=== PATIENT | female | born 1965 | race Caucasian/White ===

== ENCOUNTER 2017-10-19 21:38 | Emergency (ER) | payer MEDICAID, SELFPAY ==
[2017-10-19 21:39] VITALS: BP 122/74; PULSE 71; RESP 17; TEMP 36.1; O2SAT 98; BMI 45.3
--- NOTE | 2017-10-19 22:15 | RAD_ITS ---
STUDY: X-RAY - LEFT KNEE REASON FOR EXAM: Female, 52 years old. Pain for several months. No known injury. TECHNIQUE: 4 view(s) of the knee. COMPARISON: None. FINDINGS: Normal visualized distal femur. Normal visualized proximal tibia and fibula. Normal proximal tibiofibular articulation. There is no acute fracture, dislocation or destructive osseous pathology. Normal medial femorotibial compartment. Normal lateral femorotibial compartment. Normal patellofemoral articulation. There is no demonstrated joint effusion. The soft tissue structures are unremarkable. RAD/Knee 4 or More Views IMPRESSION: Normal x-ray examination of the knee. Electronically Signed: Jayden Jarvis DO at 22:26 EDT Tel [phone], Service support ,
--- NOTE | 2017-10-19 23:05 | ED.VISSUMM ---
- ER Visit Summary Date of Service: 10/19/17 Chief Complaint: Left knee pain History of Present Illness: The patient is a 52 F presenting with left knee pain for the past several months, worse for the past few days. No direct trauma but she does hear a lot of clicking and popping in her knee with prolonged walking. No swelling, erythema, or warmth. No other complaints. Physical Examination: Minimal tenderness left knee anteriorly. Skin intact. No erythema or warmth. She still has full range of motion. No instability Test Results: Left knee x-ray negative for acute process Emergency Department Course and Treatment: I will treat her with naproxen and she will follow-up Treatment Plan: Disposition: Home stable Impression: Chronic left knee pain This note was generated with [employer] dictation software. It may contain incorrect words, spelling, and punctuation that were not noted in review of the chart prior to signing ED Disposition - Plan for ED Patient: Chief Complaint: Other, Pain/Inj Instructions: ED Knee Pain [facility] Prescriptions: Naproxen 500 mg PO BID #20 tablet. Referrals: Sam Null MD [Primary Care Provider] -
--- NOTE | 2017-10-19 23:09 | ED.DCSUM_ITS ---
- ER Visit Summary Date of Service: 10/19/17 Chief Complaint: Left knee pain History of Present Illness: The patient is a 52 F presenting with left knee pain for the past several months, worse for the past few days. No direct trauma but she does hear a lot of clicking and popping in her knee with prolonged walking. No swelling, erythema, or warmth. No other complaints. Physical Examination: Minimal tenderness left knee anteriorly. Skin intact. No erythema or warmth. She still has full range of motion. No instability Test Results: Left knee x-ray negative for acute process Emergency Department Course and Treatment: I will treat her with naproxen and she will follow-up Treatment Plan: Disposition: Home stable Impression: Chronic left knee pain This note was generated with [employer] dictation software. It may contain incorrect words, spelling, and punctuation that were not noted in review of the chart prior to signing ED Disposition - Plan for ED Patient: Chief Complaint: Other, Pain/Inj Instructions: ED Knee Pain [facility] Prescriptions: Naproxen 500 mg PO BID #20 tablet. Referrals: Sam Null MD [Primary Care Provider] -
== END 2017-10-19 23:41 | disposition home or self-care (01) ==
PROVIDERS: Emergency Provider Emergency Medicine; Family Provider Internal Medicine; PCP Internal Medicine
DX: M25.562 Pain in left knee (principal); Z79.899 Other long term (current) drug therapy
CPT/HCPCS: 73564; 99282

== ENCOUNTER 2018-04-19 00:08 | Emergency (ER) | payer SELFPAY ==
[2018-04-19 00:09] VITALS: BP 130/81; PULSE 69; RESP 16; TEMP 36.4; O2SAT 100; BMI 46.7
[2018-04-19] MEDS: 0.9% Normal Saline 1,000 ML 1000 ML IV (00:47)
[2018-04-19] MEDS: Ketorolac 30 MG/ML Syringe IV (00:47)
[2018-04-19] MEDS: Ondansetron 4 MG/2 ML Vial IV (00:47)
[2018-04-19 00:53] VITALS: BP 127/54; PULSE 47; RESP 16; TEMP 36.4; O2SAT 100
[2018-04-19 01:04] LABS: Absolute Neutrophil Count 4.9 X10^3/uL (2.0-7.7); Basophil# 0.03 X10^3/uL; Basophil% 0.4 % (0-1); Eosinophil# 0.09 X10^3/uL; Eosinophils% 1.1 % (0-5); Hematocrit 41.2 % (37-47); Hemoglobin 13.5 g/dl (12.0-15.0); Lymphocyte % 32.1 % (19-41); Mean Corp Hgb Conc 32.8 g/gl (32-36); Mean Corpuscular Hgb 28.5 pg (27.0-32.0); Mean Corpuscular Volume 86.9 fL (81-99); Mean Platelet Vol. 11.5 fl (6.2-12.0); Monocyte# 0.72 X10^3/uL; Monocyte% 8.6 % (0-10); Neutrophil # 4.86 X10^3/uL (2.7-7.7); Neutrophil % 57.7 % (47-70); Platelet Count 180 K/mm3 (150-450); RBC Distribution Width CV 13.9 % (11.6-14.6); RBC Distribution Width SD 43.7 fl (35.1-43.9); Red Blood Count 4.74 M/mm3 (4.2-5.4); White Blood Count 8.4 K/mm3 (4.4-11.0)
[2018-04-19 01:06] LABS: POSITIVE COUNT NO; POSITIVE DIFFERENTIAL NO; POSITIVE MORPHOLOGY NO
[2018-04-19 01:22] LABS: AST(SGOT) 13 U/L (15-37); Alanine Aminotransfer ALT/SGPT 19 U/L (13-56); Albumin, Serum 3.8 g/dL (3.2-5.0); Alkaline Phosphatase 102 U/L (45-117); Anion Gap 7 (5-15); BUN 16 mg/dL (7-18); BUN/Creat Ratio 15.4 RATIO (10-20); Chloride 107 mmol/L (98-107); Creatinine, Serum 1.04 mg/dL (0.55-1.02); EST Glomerular Filtration Rate 59 mL/min (>60); Est Glom Filt Rate - Afr Amer 71 mL/min (>60); Estimated Creatinine Clearance 44.42 ml/min; Globulin 3.8 g/dL (2.2-4.2); Glucose 74 mg/dL (74-106); Lipase 53 U/L (73-393); Potassium 3.6 mmol/L (3.5-5.1); Protein, Total 7.6 g/dL (6.4-8.2); Sodium Level 140 mmol/L (136-145)
--- NOTE | 2018-04-19 01:39 | ED.VISSUMM ---
- ER Visit Summary Date of Service: 04/19/18 Chief Complaint: Abdominal pain History of Present Illness: The patient is a 53 F who presents with right upper quadrant abdominal pain. She states she has a history of a bad gallbladder. She did see a surgeon at one point and surgery was recommended. She states she was scared of surgery so ultimately deferred on this. She states she has begun having some pain again particularly over the last several days and is increased since yesterday. She rates her pain as 6 out of 10 to 8 out of 10. She describes as sharp. She reports associated nausea without vomiting. She reports a history of irritable bowel syndrome. She reports sweats but no fevers. She denies any chest pain or shortness of breath. Physical Examination: Afebrile vitals are normal Heart regular rate and rhythm Lungs are clear Abdomen soft nondistended she is tender to palpation in the right upper quadrant but no Cervantes's sign no guarding no rebound Test Results: CBC CMP lipase all within normal limits. Emergency Department Course and Treatment: Workup as above unremarkable. Patient was treated here with IV fluids Toradol and Zofran with improvement of symptoms. She does still have some pain on reevaluation but it is improved. She does not have fever vomiting leukocytosis tachycardia. I do not see signs suggestive of acute cholecystitis at this time. I advised that she follow-up with a surgeon. She incidentally had rated cardia here of high 40s and 50s. At the time my reevaluation heart rate is 55-60. I do not believe this is relevant to her current symptoms and she was advised to follow-up with her primary care physician in regard to this. Treatment Plan: [] Disposition: Discharge Impression: Right upper quadrant abdominal pain This note was generated with [employer] dictation software. It may contain incorrect words, spelling, and punctuation that were not noted in review of the chart prior to signing ED Disposition - Plan for ED Patient: Referrals: Sam Null MD [Primary Care Provider] -
--- NOTE | 2018-04-19 01:41 | ED.DEP ---
ED Disposition - Plan for ED Patient: Instructions: ED Abdominal Pain Unkn Cause Prescriptions: Hydrocodone Bitart/Apap 5-325 [[place] 5MG-325MG] 1 tab PO Q6H PRN PRN 3 Days #10 tab PRN Reason: Pain Referrals: Sam Null MD [Primary Care Provider] - Reginald Orozco MD [STAFF PHYSICIAN] -
[2018-04-19 01:53] VITALS: BP 118/63; PULSE 60; RESP 15; O2SAT 97
== END 2018-04-19 01:54 | disposition home or self-care (01) ==
LOC: ED 01:01
PROVIDERS: Emergency Provider Emergency Medicine; Family Provider Internal Medicine; PCP Internal Medicine
DX: R10.11 Right upper quadrant pain (principal); K58.9 Irritable bowel syndrome, unspecified; R11.0 Nausea; E66.9 Obesity, unspecified; Z79.899 Other long term (current) drug therapy
CPT/HCPCS: 80053; 83690; 85025; 96361; 96374; 96375; 99283; J7030; A4216; J2405

== ENCOUNTER 2018-05-27 20:13 | Emergency (ER) | payer SELFPAY ==
[2018-05-27 20:13] VITALS: BP 129/79; PULSE 77; RESP 16; TEMP 36.7; O2SAT 99; BMI 39.2
--- NOTE | 2018-05-27 20:28 | ED.RN ---
DIFFICULT TO GET A STRAIGHT ANSWER FROM PT WHEN ASKED HOW LONG SHE HAD THE DIARRHEA THE PT STATED,LAST WEEKEND IT STARTED.SO RE-ITERATED THAT THE PT HAS HAD DIARRHEA SINCE LAST WEEK END UNTIL TODAY.PT THEN STATED,NO NOT DURING THE WEEK. ASKED PT WHEN,SHE SAID,YESTERDAY. THEN ASKED PT WHAT MEDICATION SHE IS ON AND SHE STATED SHE RANOUT OF HER MEDS.ASKED PT WHEN SHE LAST TOOK THEM, WEEKS.
[2018-05-27] MEDS: Loperamide 2 MG Capsule 4 MG PO (20:43)
[2018-05-27] MEDS: Ondansetron ODT 4 MG Tablet 8 MG PO (20:43)
--- NOTE | 2018-05-27 21:37 | ED.DCSUM_ITS ---
- ER Visit Summary Date of Service: 05/27/18 Chief Complaint: Diarrhea History of Present Illness: The patient is a 53 F with diarrhea this week. She had an at the beginning of the week. It was loose and nonbloody. It seemed to get better and then she ate some [employer] and the symptoms recurred yesterday and today. She continues to have loose stools and watery stools. They are nonbloody. She has some nausea and hot flashes but no fevers or vomiting. No recent travel. No recent antibiotics. Physical Examination: Afebrile and vital signs all completely normal. Mucous membranes moist. Heart regular rate and rhythm. Lungs clear. Abdomen soft and nontender. Skin appears normal without pallor, jaundice, or diaphoresis. Test Results: None performed Emergency Department Course and Treatment: Patient likely has a viral gastroenteritis. Multiple patients have had similar symptoms. There is no indication for imaging or other diagnostic testing at this time. She will be treated medically. Her vitals and exam are reassuring. She received Imodium and Zofran. She passed a p.o. challenge and will be discharged home with a work note and prescriptions. Return for any new or worsening issues. Treatment Plan: As above Disposition: Discharge Impression: 1. Diarrheal illness This note was generated with [employer] dictation software. It may contain incorrect words, spelling, and punctuation that were not noted in review of the chart prior to signing ED Disposition - Plan for ED Patient: Referrals: Sam Null MD [Primary Care Provider] -
--- NOTE | 2018-05-27 21:37 | ED.DEP ---
ED Disposition - Plan for ED Patient: Instructions: ED Gastroenteritis Vs Food Poison Prescriptions: Loperamide [Imodium] 2 mg PO Q4H PRN PRN #30 cap PRN Reason: Diarrhea Ondansetron [Zofran Odt] 4 mg PO Q8H PRN PRN #10 tab PRN Reason: Nausea Referrals: Sam Null MD [Primary Care Provider] -
[2018-05-27 21:50] VITALS: BP 122/67; PULSE 79; RESP 18; O2SAT 96
== END 2018-05-27 21:50 | disposition home or self-care (01) ==
LOC: ED 20:35
PROVIDERS: Emergency Provider Emergency Medicine; Family Provider Internal Medicine; PCP Internal Medicine
DX: R19.7 Diarrhea, unspecified (principal)
CPT/HCPCS: 99283

== ENCOUNTER 2018-07-29 00:27 | Emergency (ER) | payer SELFPAY ==
[2018-07-29 00:28] VITALS: BP 136/77; PULSE 72; RESP 16; TEMP 36.6; O2SAT 99; BMI 42.7
--- NOTE | 2018-07-29 00:37 | RAD_ITS ---
HISTORY: IInjury Patient had something slam down on her 3rd digit. COMPARISON: None FINDINGS: XR left third finger 3 views No fracture, dislocation, or bony abnormality. Joint spaces appear preserved. No radiopaque foreign body. The soft tissues show no gross abnormality. RAD/Finger(s) Min 2 Views IMPRESSION: Negative for fracture or acute osseous abnormality. at 0104 Reported and signed by: Jackson Wolfe MD Electronically Signed: Jackson Wolfe, at 1:03 EDT Tel , Service support ,
--- NOTE | 2018-07-29 01:26 | ED.DCSUM_ITS ---
- ER Visit Summary Date of Service: 07/29/18 Chief Complaint: [Injury to left long finger] History of Present Illness: The patient is a 53 F [presents to the emergency department with an injury to her left long finger that she sustained yesterday evening around 11 PM. Patient states that she was at work after she clocked out and was reaching in a cupboard where there was a cavity that fell and crushed her finger. Patient is left-hand dominant. Patient does not want to claim it under workman's comp as it happened after she clocked out.] Physical Examination: [Left long finger-patient has tenderness over the distal phalanx. She has a very small linear subungual hematoma. Minimal soft tissue swelling. Neurovascular intact. Slightly decreased range of motion at the DIP secondary to pain.] Test Results: [X-rays of the left long finger obtained were normal] Emergency Department Course and Treatment: [Patient was given aluminum splint and a dose of ibuprofen.] Treatment Plan: [Patient to follow-up with primary care physician in 5 to 7 days. Patient to use ibuprofen or Tylenol for discomfort.] Disposition: [Discharged home in stable condition] Impression: [Contusion left long finger Subungual hematoma left long finger-no trephination required] This note was generated with [employer] dictation software. It may contain incorrect words, spelling, and punctuation that were not noted in review of the chart prior to signing ED Disposition - Plan for ED Patient: Referrals: Sam Null MD [Primary Care Provider] -
--- NOTE | 2018-07-29 01:26 | ED.DEP ---
ED Disposition - Plan for ED Patient: Instructions: ED Contusion Finger Referrals: Sam Null MD [Primary Care Provider] - 5-7 Days
[2018-07-29 01:33] VITALS: BP 125/75; PULSE 87; RESP 16; O2SAT 98
[2018-07-29] MEDS: Ibuprofen 600 MG Tablet PO (01:41)
== END 2018-07-29 01:42 | disposition home or self-care (01) ==
LOC: ED 00:42
PROVIDERS: Emergency Provider Emergency Medicine; Family Provider Internal Medicine; PCP Internal Medicine
DX: S60.132A Contusion of left middle finger with damage to nail, initial encounter (principal); W23.0XXA Caught, crushed, jammed, or pinched between moving objects, initial encounter; Y93.9 Activity, unspecified; Y92.9 Unspecified place or not applicable; Y99.0 Civilian activity done for income or pay; K21.9 Gastro-esophageal reflux disease without esophagitis
CPT/HCPCS: 73140; 99283

== ENCOUNTER 2018-10-12 23:58 | Emergency (ER) | payer MEDICAID, SELFPAY ==
[2018-10-12 23:59] VITALS: BP 135/83; PULSE 61; RESP 18; TEMP 36.6; O2SAT 100; BMI 40.3
--- NOTE | 2018-10-13 00:09 | RAD_ITS ---
STUDY: X-RAY - RIGHT FOOT CLINICAL: Female, 53 years old. Right-sided foot pain for one day. TECHNIQUE: 3 view(s) of the foot. COMPARISON: None. FINDINGS: There is a posterior calcaneal enthesophyte. There is a plantar calcaneal spur. The intertarsal articulations are within normal limits. There is demineralization of the metatarsi. Normal metatarsophalangeal joint of the great toe. There is a bipartite tibial sesamoid. Normal interphalangeal joint of the great toe. Normal phalanges of the great toe. Normal second through fifth metatarsophalangeal joints. Normal interphalangeal joints and phalanges of the lesser toes. There is soft tissue swelling. RAD/Foot min 3 Views IMPRESSION: Soft tissue swelling and calcaneal spurs. Electronically Signed: Delia Noel MD at 1:22 EDT , Service support ,
--- NOTE | 2018-10-13 00:09 | RAD_ITS ---
STUDY: X-RAY - RIGHT TIBIA AND FIBULA REASON FOR EXAM: Female, 53 years old. Right leg pain for one day. TECHNIQUE: AP and lateral view(s) of the tibia and fibula were obtained. COMPARISON: None. FINDINGS: Normal visualized tibia. Normal visualized fibula. The soft tissue structures are unremarkable. RAD/Tibia & Fibula 2 Views IMPRESSION: No radiographic evidence for acute fracture. Electronically Signed: Delia Noel MD at 1:19 EDT , Service support ,
--- NOTE | 2018-10-13 00:09 | ED.VIS.GEN ---
History of Present Illness Chief Complaint: Lower Extremity Injury Informant: Patient Narrative: Patient stated for last 2 days had right lower mireles pain. She is on her feet a lot at work. She is unsure she has shinsplints or if she bumped it while she was sleeping. Does not remember an injury. She has been using intermittent ibuprofen. No swelling per patient. She had also for last 2 months has had some pain on the bottom distal part of her foot. She is unsure if she has a bone spur Past Medical History - Allergies and Home Meds Allergies/Adverse Reactions: Allergies No Known Allergies Allergy (Verified 10/12/18 23:59) Primary Care Physician: Sam Null MD [Primary Care Provider] - Prior records reviewed: Yes Past Medical History: - - Reviewed Surgical History: - - Reviewed Lives: With Family Smoking Status: Former smoker Alcohol: None Drugs: None Review of Systems General: Denies: Chills, Fever, Sweats Eyes: Denies: Visual changes - bilaterally, Diplopia ENT: Denies: Rhinorrhea, Sore throat Cardiovascular: Denies: Chest pain, Palpitations Respiratory: Denies: Dyspnea, Cough, Dyspnea on exertion Gastrointestinal: Denies: Abdominal pain, Nausea, Vomiting, Diarrhea, Melena, Hematochezia Genitourinary: Denies: Dysuria, Hematuria, Frequency Musculoskeletal: Reports: Extremity Pain - See HPI. Denies: Back pain Skin: Denies: Rash, Wounds Neurological: Denies: Headache, Weakness, Numbness Physical Exam Vital Signs/Narrative: Vital Signs Temp Pulse Resp BP Pulse Ox 10/12/18 23:59 97.8 F 61 18 135/83 H 100 General: Well nourished, Well developed, No Acute Distress Head: Normocephalic, Atraumatic Eyes: Perrl, EOMI ENT: Moist mucous membranes, No rhinorrhea Neck: Supple, Nontender Cardiovascular: Regular rate, Regular rhythm, No murmurs Respiratory: No distress, CTA bilaterally, Chest nontender Abdomen: Soft, Nontender, Nondistended, Normal bowel sounds Back: Nontender, Normal Inspection Extremities: No edema, Tenderness - Has some tenderness of her distal anterior tibia. No swelling. She has some tenderness to the bottom of her foot over her distal first and second meta tarsal head. No swelling or deformity. Negative for: Nontender Skin: Normal color, No rash Neurological: Alert, Oriented x3, Cranial nerves II-XII grossly intact, Normal Strength, Normal Sensation Psychological: Normal affect, Normal Mood Diagnostic/Tx/Re-eval - Medical Decision Making She given Tylenol. X-ray obtained of the tib-fib and foot x-ray of the tib-fib is negative. X-ray of the foot shows a small bunion on the bottom of the first metatarsal. Patient will follow-up with her family doctor and podiatry for this. Given referral. Will use Tylenol ibuprofen. Given a postop shoe and Christo wrap. Her mireles I suspect this just overuse tendinitis ED Disposition - Plan for ED Patient: Diagnosis: Bunion of great toe, Tendinitis Instructions: What Are Bunions? Prescriptions: Meloxicam 15 mg PO DAILY #14 tab Prescription Printed Referrals: Sam Null MD [Primary Care Provider] - Ethan Harrison DPM [STAFF PHYSICIAN] -
[2018-10-13] MEDS: Acetaminophen 500 MG Tablet 1000 MG PO (00:18)
[2018-10-13 01:09] VITALS: BP 129/80; PULSE 77; RESP 18; O2SAT 98
== END 2018-10-13 01:14 | disposition home or self-care (01) ==
PROVIDERS: Emergency Provider Emergency Medicine; Family Provider Internal Medicine; PCP Internal Medicine
DX: M21.611 Bunion of right foot (principal); M77.9 Enthesopathy, unspecified; Z87.891 Personal history of nicotine dependence
CPT/HCPCS: 73590; 73630; 99283

== ENCOUNTER 2018-10-28 16:05 | Emergency (ER) | payer MEDICAID, SELFPAY ==
[2018-10-28 16:06] VITALS: BP 151/71; PULSE 68; RESP 17; TEMP 36.5; O2SAT 100; BMI 39.2
--- NOTE | 2018-10-28 16:34 | EKG12_ITS ---
Test Reason : CP Blood Pressure : / mmHG Vent. Rate : 064 BPM Atrial Rate : 064 BPM P-R Int : 188 ms QRS Dur : 104 ms QT Int : 388 ms P-R-T Axes : 046 -05 035 degrees QTc Int : 400 ms Normal sinus rhythm Cannot rule out Anterior infarct (cited on or before 28-OCT-2018), age undetermined Abnormal ECG Confirmed by EDILBERTO MOLINA MD ([id number]), science editor ZACKARY BARNES ([id number]) on 10/31/2018 1:20:32 PM Referred By: MAGDA Confirmed By:EDILBERTO MOLINA MD
--- NOTE | 2018-10-28 16:50 | RAD_ITS ---
HISTORY:CHEST PAIN FOR PAST COUPLE DAYSDIZZINESS CHEST PAIN FOR PAST COUPLE DAYSDIZZINESS EXAM: XR Chest 1 View: COMPARISON: None FINDINGS: # of images incl. paperwork: 1 LINES/DEVICES: None. LUNGS: Radiographically clear. No consolidation, edema or effusion. No pneumothorax. MEDIASTINUM AND CARDIOVASCULAR STRUCTURES: Cardiac silhouette not enlarged. BONES AND SOFT TISSUES: Unremarkable. RAD/Chest 1 View (Portable) IMPRESSION: No radiographic evidence of acute cardiopulmonary disease. at 1717 Reported and signed by: Radha Mcdaniel DO Electronically Signed: Radha Mcdaniel DO at 17:15 EDT Tel , Service support ,
[2018-10-28 16:51] LABS: Absolute Lymphocyte Count 2.34 X10^3/uL (0.83-4.51); Absolute Neutrophil Count 4.1 X10^3/uL (2.0-7.7); Basophil# 0.02 X10^3/uL; Basophil% 0.3 % (0-1); Eosinophil# 0.12 X10^3/uL; Eosinophils% 1.7 % (0-5); Lymphocyte # 2.34 X10^3/ul (4.0); Lymphocyte % 32.4 % (19-41); Mean Corp Hgb Conc 33.3 g/dL (32-36); Monocyte% 8.3 % (0-10); NRBC Flagged by Analyzer 0 % (0-5); Neutrophil # 4.14 X10^3/uL (2.7-7.7); Neutrophil % 57.2 % (47-70); Platelet Count 165 K/mm3 (150-450); RBC Distribution Width CV 13.2 % (11.6-14.6); RBC Distribution Width SD 42.2 fl (35.1-43.9); Red Blood Count 4.83 M/mm3 (4.2-5.4); White Blood Count 7.2 K/mm3 (4.4-11.0)
[2018-10-28] MEDS: Ondansetron 4 MG/2 ML Vial IV (17:02)
[2018-10-28] MEDS: 0.9% Normal Saline 1,000 ML 1000 ML IV (17:02)
[2018-10-28] MEDS: Morphine 4 MG/ML Syringe IV (17:02)
[2018-10-28 17:03] VITALS: BP 123/71; PULSE 54; RESP 18; O2SAT 100
[2018-10-28 17:04] LABS: Anion Gap 4 (5-15); BUN 11 mg/dL (7-18); BUN/Creat Ratio 10.7 RATIO (10-20); Calcium,Total 9.4 mg/dL (8.5-10.1); Chloride 106 mmol/L (98-107); Creatinine, Serum 1.03 mg/dL (0.55-1.02); EST Glomerular Filtration Rate 59 mL/min (>60); Est Glom Filt Rate - Afr Amer 72 mL/min (>60); Estimated Creatinine Clearance 56.19 ml/min; Glucose 63 mg/dL (74-106); Potassium 3.6 mmol/L (3.5-5.1); Sodium Level 141 mmol/L (136-145)
[2018-10-28 17:32] LABS: AST(SGOT) 14 U/L (15-37); Alanine Aminotransfer ALT/SGPT 23 U/L (13-56); Albumin, Serum 3.8 g/dL (3.2-5.0); Alkaline Phosphatase 89 U/L (45-117); Bilirubin, Direct 0.11 mg/dL (0.00-0.30); Globulin 3.4 g/dL (2.2-4.2); Lipase 50 U/L (73-393); Protein, Total 7.2 g/dL (6.4-8.2)
--- NOTE | 2018-10-28 17:35 | ED.VISSUMM ---
- ER Visit Summary Date of Service: 10/28/18 Chief Complaint: Chest pain History of Present Illness: The patient is a [address] Null. She reports that she had intermittent chest pain for the past 2 months. It has become constant for the past 2 days. She describes it as a sharp, tightness that is 10 out of 10 at worst and 4-10 currently. Is worsened by nothing including exertion, movement, or breathing. Is also relieved by nothing. Reports she has been nauseated with it. She denies any vomiting. She does report that she has been diaphoretic at times and short of breath. Patient reports that she is lightheaded. There is no changes standing. She has not passed out. Physical Examination: Vitals: Stable. Afebrile. General: Well-nourished and well-developed. Head: Normocephalic atraumatic. Neck: Supple, no lymphadenopathy. No JVD. Nontender. Cardiovascular: Regular rate and rhythm. No murmurs. Respiratory: No respiratory distress. Clear to auscultation bilaterally. Moderate tenderness palpation over the left costochondral margin which does reproduce her pain. Abdominal: Soft, mild epigastric tenderness to palpation, nondistended, normal bowel sounds. No guarding, rebound, or peritoneal signs. Back: Nontender. Extremities: Nontender, no edema. Skin: Normal color, no rash. Neurologic: Alert and oriented ?3. Cranial nerves II through XII are intact. Normal strength and sensation. Psych: Normal affect. Test Results: EKG is sinus at 64 with no ischemic changes. There is no old EKG for comparison. Troponin is negative despite 2 days of constant pain. D-dimer is negative. LFTs are unremarkable. Lipase is normal. Chem-7 shows a creatinine 1.03. Glucose is 63. CBC is normal. Chest x-ray shows no acute disease. Emergency Department Course and Treatment: Patient was given a dose of morphine and Zofran IV. She ate while here. She is resting comfortably. Treatment Plan: At this time I do not have an excellent option for the patient's pain. It is reproduced with palpation of her chest wall. She will be discharged instructions to follow-up with her primary care physician in 3 to 5 days for another exam. Return to the emergency department for any worsening symptoms. Disposition: To home in improved and stable condition. Impression: 1. Atypical chest pain. 2. Hypoglycemia. This note was generated with [employer] dictation software. It may contain incorrect words, spelling, and punctuation that were not noted in review of the chart prior to signing ED Disposition - Plan for ED Patient: Disposition: Home or Assisted Living Instructions: CHEST PAIN, Uncertain Cause Referrals: Sam Null MD [Primary Care Provider] - 2 Days
[2018-10-28 17:40] LABS: D-Dimer Quantitative (DVT/PE) 0.37 FEU/ug/m (0.27-0.49)
[2018-10-28 17:52] VITALS: BP 128/69; PULSE 55; RESP 20; O2SAT 100
[2018-10-28 18:36] VITALS: BP 116/69; PULSE 75; RESP 20; O2SAT 100
== END 2018-10-28 18:47 | disposition home or self-care (01) ==
LOC: ED 17:31
PROVIDERS: Emergency Provider Emergency Medicine; Family Provider Internal Medicine; PCP Internal Medicine
DX: R07.89 Other chest pain (principal); E16.2 Hypoglycemia, unspecified; R51 Headache; R11.0 Nausea; J45.909 Unspecified asthma, uncomplicated
CPT/HCPCS: 71045; 80048; 80076; 83690; 84484; 85025; 85379; 93005; 96374; 96375; 99285; J7030; J2405

== ENCOUNTER → 2019-01-09 | Outpatient (CLI) | payer MEDICAID, SELFPAY ==
[2019-01-09 15:13] VITALS: BMI 40.7
[2019-01-09 17:33] LABS: AST(SGOT) 13 U/L (15-37); Alanine Aminotransfer ALT/SGPT 21 U/L (13-56); Alkaline Phosphatase 96 U/L (45-117); Bilirubin, Direct 0.13 mg/dL (0.00-0.30); Globulin 3.9 g/dL (2.2-4.2); Protein, Total 7.9 g/dL (6.4-8.2); Thyroid Stim Hormone (TSH) 3.77 uIU/mL (0.358-3.74)
== END | disposition home or self-care (01) ==
PROVIDERS: Family Provider Internal Medicine; PCP Internal Medicine; Referring Provider Internal Medicine Cardiovascular Disease; Visit Provider Internal Medicine Cardiovascular Disease
DX: L65.9 Nonscarring hair loss, unspecified (principal); R53.83 Other fatigue; R00.2 Palpitations; R00.1 Bradycardia, unspecified; R07.9 Chest pain, unspecified; R60.9 Edema, unspecified; E78.5 Hyperlipidemia, unspecified
CPT/HCPCS: 36415; 80076; 84436; 84443

== ENCOUNTER → 2019-01-10 11:41 | Outpatient (CLI) | payer MEDICAID, SELFPAY ==
[2019-01-09 15:13] VITALS: BMI 40.7
[2019-01-10 13:16] LABS: Cholesterol 175 mg/dL (200); High Density Lipoprotein 49 mg/dL; Triglycerides 47 mg/dL; Very Low Density Lipoprotein 9 mg/dL (5-40)
== END ==
PROVIDERS: Family Provider Internal Medicine; PCP Internal Medicine; Referring Provider Internal Medicine Cardiovascular Disease; Visit Provider Internal Medicine Cardiovascular Disease
DX: E78.5 Hyperlipidemia, unspecified (principal)
CPT/HCPCS: 36415; 80061

== ENCOUNTER → 2019-01-16 13:40 | Outpatient (CLI) | payer MEDICAID, SELFPAY ==
[2019-01-09 15:13] VITALS: BMI 40.7
[2019-01-16 15:45] LABS: Erythrocyte Sedimentation Rate 11 mm/hr (0-30)
[2019-01-19 16:55] LABS: ANTINUCLEAR ANTIBODIES DIRECT Negative (Negative)
== END ==
PROVIDERS: Family Provider Internal Medicine; PCP Internal Medicine; Referring Provider Internal Medicine Cardiovascular Disease; Visit Provider Internal Medicine Cardiovascular Disease
DX: R00.1 Bradycardia, unspecified (principal); R00.2 Palpitations; R60.9 Edema, unspecified; R07.9 Chest pain, unspecified; R53.83 Other fatigue; L65.9 Nonscarring hair loss, unspecified
CPT/HCPCS: 36415; 82533; 85652; 86038

== ENCOUNTER 2019-01-20 16:38 | Observation (INO) | payer MEDICAID, SELFPAY ==
[2019-01-09 15:13] VITALS: BMI 40.7
[2019-01-20] VITALS (7 sets, daily range): BP systolic 98–113; BP diastolic 51–69; PULSE 51–62; RESP 13–19; TEMP 36.4–37.1; O2SAT 96–100; BMI 38.0; BMI 38.5
--- NOTE | 2019-01-20 16:54 | EKG12_ITS ---
Test Reason : CP Blood Pressure : / mmHG Vent. Rate : 061 BPM Atrial Rate : 061 BPM P-R Int : 182 ms QRS Dur : 102 ms QT Int : 394 ms P-R-T Axes : 041 -25 006 degrees QTc Int : 396 ms Normal sinus rhythm Cannot rule out Anterior infarct , age undetermined Abnormal ECG Confirmed by JESSE CHILDERS, EDILBERTO ([id number]), features editor ZACKARY BARNES ([id number]) on 01/23/2019 1:55:14 PM Referred By: SISSY Confirmed By:EDILBERTO MOLINA MD
--- NOTE | 2019-01-20 17:00 | RAD_ITS ---
STUDY: X-RAY CHEST REASON FOR EXAM: Female, 54 years old. Chest pain, pressure. TECHNIQUE: Portable chest. COMPARISON: 10/28/2018. FINDINGS: The lungs are clear and expanded. There is no demonstrated pleural abnormality. Normal size heart. Normal mediastinum and gilbert. Normal visualized pulmonary arteries. Normal visualized aortic arch and descending thoracic aorta. Normal visualized thoracic spine. Normal visualized ribs, clavicles, and shoulders. There is no demonstrated abnormality of the visualized soft tissue structures of the upper abdomen. RAD/Chest 1 View (Portable) IMPRESSION: Normal x-ray examination of the chest. Electronically Signed: Zaida oPol MD at 17:17 EST Tel , Service support ,
--- NOTE | 2019-01-20 17:01 | ED.DCSUM_ITS ---
- ER Visit Summary Date of Service: 01/20/19 Chief Complaint: Chest pain History of Present Illness: The patient is a 54 F presenting with chest pain. Patient states this started this morning. Pain has been waxing and waning. States she it feels like there is a truck sitting on her chest. Pain radiates to her left arm. She denies PE/DVT risk factors. She does not recall anything that makes this better or worse. She has associated shortness of breath, nausea, diaphoresis. She is a previous smoker. She has family history of early heart disease. She is currently wearing a 30-day monitor and is awaiting scheduling for stress test per Dr. Bateman. Physical Examination: Vitals are stable. Patient is afebrile. Alert no acute distress. HEENT exam is unremarkable. Neck is supple. Lungs are clear and equal bilaterally. Heart is regular rate and rhythm. Abdomen is soft nontender nondistended. Extremities are unremarkable. Skin is warm and dry. No focal neurologic deficit. Remainder of exam is unremarkable. Emergency Department Course and Treatment: EKG is sinus rate of 61. Patient is given aspirin, morphine, Zofran. Chest x-ray shows no acute process. CBC, chemistries unremarkable. Lipase is normal. Troponin is negative. Patient is resting comfortably on reevaluation. Discussed with the hospitalist for admission. Disposition: Observation Impression: Chest pain This note was generated with [employer] dictation software. It may contain incorrect words, spelling, and punctuation that were not noted in review of the chart prior to signing ED Disposition - Plan for ED Patient: Referrals: Sam Null MD [Primary Care Provider] -
[2019-01-20] MEDS: Aspirin 81 MG TAB.CHEW 324 MG PO (17:02)
[2019-01-20] MEDS: Morphine 4 MG/ML Syringe IV (17:05)
[2019-01-20] MEDS: Ondansetron 4 MG/2 ML Vial IV (17:05)
[2019-01-20 17:06] LABS: Absolute Lymphocyte Count 2.12 X10^3/uL (0.83-4.51); Absolute Neutrophil Count 4.2 X10^3/uL (2.0-7.7); Basophil# 0.03 X10^3/uL; Basophil% 0.4 % (0-1); Eosinophils% 1.4 % (0-5); Hematocrit 42.8 % (37-47); Hemoglobin 13.8 g/dL (12.0-15.0); Lymphocyte # 2.12 X10^3/ul (4.0); Lymphocyte % 30.7 % (19-41); Mean Corp Hgb Conc 32.2 g/dL (32-36); Mean Corpuscular Hgb 28.3 pg (27.0-32.0); Mean Corpuscular Volume 87.7 fL (81-99); Mean Platelet Vol. 11.3 fl (6.2-12.0); Monocyte% 7.2 % (0-10); NRBC Flagged by Analyzer 0 % (0-5); Neutrophil # 4.15 X10^3/uL (2.7-7.7); Neutrophil % 60.2 % (47-70); Platelet Count 193 K/mm3 (150-450); RBC Distribution Width CV 13.9 % (11.6-14.6); RBC Distribution Width SD 44.7 fl (35.1-43.9); Red Blood Count 4.88 M/mm3 (4.2-5.4); White Blood Count 6.9 K/mm3 (4.4-11.0)
[2019-01-20 17:20] LABS: Bedside Glucose 64 mg/dL (70-110)
[2019-01-20 17:23] LABS: Anion Gap 6 (5-15); BUN 11 mg/dL (7-18); BUN/Creat Ratio 11.5 RATIO (10-20); Calcium,Total 9.7 mg/dL (8.5-10.1); Chloride 106 mmol/L (98-107); Creatinine, Serum 0.95 mg/dL (0.55-1.02); EST Glomerular Filtration Rate 65 mL/min (>60); Est Glom Filt Rate - Afr Amer 78 mL/min (>60); Estimated Creatinine Clearance 60.21 ml/min; Glucose 80 mg/dL (74-106); Potassium 3.9 mmol/L (3.5-5.1); Sodium Level 142 mmol/L (136-145)
[2019-01-20 17:29] LABS: Lipase 49 U/L (73-393)
--- NOTE | 2019-01-20 18:03 | HP.PCM_ITS ---
Problem List (1) Chest pain Status: Acute Qualifiers: Chest pain type: unspecified Qualified Code(s): R07.9 - Chest pain, unspecified (2) 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 apnea Status: Chronic (3) Obesity Status: Chronic Qualifiers: Obesity type: due to excess calories Obesity classification: adult class 2 (BMI 35 - 39.9) Serious obesity comorbidity presence: unspecified whether serious comorbidity present Body mass index: BMI 38.0-38.9 Qualified Code(s): E66.09 - Other obesity due to excess calories; Z68.38 - Body mass index (BMI) 38.0-38.9, adult (4) Asthma Status: Chronic Qualifiers: Asthma severity: unspecified severity Asthma persistence: unspecified Asthma complication type: unspecified Qualified Code(s): J45.909 - Unspecified asthma, uncomplicated (5) IBS (irritable bowel syndrome) Status: Chronic Qualifiers: Irritable bowel syndrome type: unspecified Qualified Code(s): K58.9 - Irritable bowel syndrome without diarrhea (6) GERD (gastroesophageal reflux disease) Status: Chronic Qualifiers: Esophagitis presence: esophagitis presence not specified Qualified Code(s): K21.9 - Gastro-esophageal reflux disease without esophagitis (7) Bilateral carpal tunnel syndrome Status: Chronic History of Present Illness Date of Admission: 01/20/19 Chief Complaint: Chest pain The patient is a 54 y/o F w/ PMHx: Chronic BL LE Edema for which she notes taking lasix, Unclear HTN, Asthma, GERD, Obesity, VETO, IBS, Chronic Bradycardia following w/ Dr. Bateman who presents to the 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 Work-up in the ED included T 98.7, heart rate 59, BP 113/69, respiratory rate 13, 99% on room air, unremarkable CBC, unremarkable BMP, troponin less than 0.015, lipase 49, EKG with no acute evidence of ischemia, chest x-ray no acute cardia pulmonary findings. In the ED patient ministered aspirin, morphine, Zofran. Past Medical History Past Medical History (Chronic Problems): Chronic Problems (Last Updated 01/09/19 @ 15:45 by Lizzie Fatima) Hypersomnia (Chronic) 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 apnea (Chronic) needs gallbladder out (Chronic) Edema (Chronic) History of syncope (Chronic ~1999) Obesity (Chronic) Asthma (Chronic) Low back pain (Chronic) IBS (irritable bowel syndrome) (Chronic) GERD (gastroesophageal reflux disease) (Chronic) Bilateral carpal tunnel syndrome (Chronic) Medical History: Medical History (Last Updated 01/09/19 @ 15:45 by Lizzie Fatima) RUQ abdominal pain (Acute) R10.11 Mid back pain (Acute) M54.9 Bradycardia (Acute) R00.1 Palpitations (Acute) R00.2 Hair loss (Acute) L65.9 Fatigue (Acute) R53.83 Hypersomnia (Chronic) G47.10 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 apnea (Chronic) G47.33 needs gallbladder out (Chronic) Chest pain (Acute) R07.9 Edema (Chronic) R60.9 History of syncope (Chronic) Onset Date: ~1999 Z87.898 Obesity (Chronic) E66.9 Asthma (Chronic) J45.909 Low back pain (Chronic) M54.5 IBS (irritable bowel syndrome) (Chronic) K58.9 GERD (gastroesophageal reflux disease) (Chronic) K21.9 Bilateral carpal tunnel syndrome (Chronic) G56.03 Allergies No Known Allergies Allergy (Verified 01/20/19 16:39) Home Medications: Ambulatory Orders Medication Instructions Recorded albuterol sulfate HFA 90 2 puff INHALATION Q4H PRN g 12/13/18 mcg/actuation aerosol inhaler dicyclomine 10 mg capsule 10 mg PO TID PRN 12/13/18 docosanol 10 % topical cream 1 applic TOPICAL DAILY g 12/13/18 fluticasone propionate 50 2 spray INTRANASAL DAILY 12/13/18 mcg/actuation nasal spray,suspension hydrocortisone 2.5 % topical cream 1 applic TOPICAL BID 12/13/18 ranitidine 150 mg tablet 150 mg PO BID 12/13/18 furosemide 20 mg tablet 20 mg PO DAILY #30 tab 10/29/19 potassium chloride ER 10 mEq 10 meq PO DAILY #30 cap 01/09/19 capsule,extended release Surgical History: - - Patient denies any prior surgical history. 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 Smoking Status: Former smoker - Quit cigarette tobacco usage approximately 14 years prior. Tobacco Use: Non-smoker Alcohol: None Drugs: None - *Family History Maternal Family History: Family History (Last Updated 01/18/19 @ 18:22 by Lizzie Fatima) Mother Atrial fibrillation CVA (cerebral vascular accident) Diabetes Father Myocardial infarction CAD (coronary artery disease) Sister Pacemaker History Items: - - Patient notes a maternal family history of stroke, paroxysmal atrial fibrillation, diabetes. Paternal Family History: Family History (Last Updated 01/18/19 @ 18:22 by Lizzie Fatima) Mother Atrial fibrillation CVA (cerebral vascular accident) Diabetes Father Myocardial infarction CAD (coronary artery disease) Sister Pacemaker History Items: - - Patient notes a paternal family history of coronary artery disease, [place]. Sibling Family History: Family History (Last Updated 01/18/19 @ 18:22 by Lizzie Fatima) Mother Atrial fibrillation CVA (cerebral vascular accident) Diabetes Father Myocardial infarction CAD (coronary artery disease) Sister Pacemaker History Items: - - Patient has a sister with cardiac disease, status post pacemaker status. Review of Systems Constitutional: Reports: Malaise, Weakness, Fatigue. Denies: Anorexia, Chills, Fever, Weight Change HEENT: Denies: Head Aches, Sinus Congestion, Sinus Drainage Cardiovascular: Reports: Chest Pain, Chest Pressure, Heaviness. Denies: Chest Tightness, Light Headedness, Orthopnea, Palpitations, Syncope Respiratory: Reports: Shortness of Breath. Denies: Cough, Shortness of breath at rest, Shortness of breath upon exertion, Sputum production Gastrointestinal: Reports: Nausea. Denies: Abdominal Pain, Vomiting Genitourinary: Denies: Dysuria Musculoskeletal: Reports: Joint Pain. Denies: Joint Tenderness Skin: Denies: Rash, Wounds Neurological: Reports: Tingling. Denies: Focal weakness, Numbness Psychiatric: Denies: Anxiety, Depression, Homicidal Ideations, Suicidal Ideations Hematologic/ Lymphatic: Denies: Easy Bruising, Easy Bleeding VTE Information - Inpt Only VTE Present on Admission: No VTE Mechan Device Prophylaxis: SCD's VTE Pharm Prophylaxis ordered?: Yes Subjective: Seated upright in ED bed, eating food, notes he still has chest pressure but improved from prior, comfortable appearing. Objective: Physical Examination: General: awake, alert, oriented x 3 and cooperative, seated upright in the ED bed in no apparent distress, notes chest discomfort improved. Skin: normal color, turgor, no icterus, cyanosis. HEENT: AT/NC, EOMI, PERRLA, MMM, no carotid bruits or JVD noted. Lungs: CTA bilaterally, moderate effort, mild decrease BL bases, no rales, ronchi or wheezing. Heart: Bradycardic with regular rhythm; no gallop, rub audible, some reproducible anterior chest wall discomfort reproduced with palpation. Abdomen: soft, obese, NTTP, ND, normal BS, no HSM. Extremities: no cyanosis, clubbing, or edema. Neurological: patient awake, alert, oriented x 3; cognitive function intact; pupils equally reactive to light and accomodation; cranial nerves II-XII grossly normal, moving all 4 extremities, no focal deficits, strength moderately to severely global decrease secondary to acute complaints. Psychiatric: affect appears normal, no acute evidence of depressive or anxiety feelings. - Physical Exam Vitals/I&O's: Vital Signs Temp Pulse Resp BP Pulse Ox 98.7 F 51 L 19 H 113/69 100 01/20/19 16:39 01/20/19 16:50 01/20/19 16:50 01/20/19 16:39 01/20/19 17:23 Oxygen Flow Rate (L/min) 2 Oxygen Delivery Method Nasal Cannula Weight: 228 lb 6.382 oz Body Mass Index (BMI) 38.0 Laboratory Results 01/20/19 16:50: WBC 6.9, RBC 4.88, Hgb 13.8, Hct 42.8, MCV 87.7, MCH 28.3, MCHC 32.2, RDW Std Deviation 44.7 H, RDW Coeff of Collin 13.9, Plt Count 193, MPV 11.3, Immature Gran % (Auto) 0.100, Neut % (Auto) 60.2, Lymph % (Auto) 30.7, [place] % (Auto) 7.2, Eos % (Auto) 1.4, Baso % (Auto) 0.4, Absolute Neuts (auto) 4.2, Absolute Lymphs (auto) 2.12, Nucleated RBC % 0 01/20/19 16:50: Sodium 142, Potassium 3.9, Chloride 106, Carbon Dioxide 30.0, Anion Gap 6, BUN 11, Creatinine 0.95, Estim Creat Clear Calc 60.21, Est GFR (MDRD) Af Amer 78, Est GFR (MDRD) Non-Af 65, BUN/Creatinine Ratio 11.5, Glucose 80, Calcium 9.7, Troponin I < 0.015 01/20/19 16:50: Lipase 49 L 01/20/19 17:12: POC Glucose 64 L Assessment/Plan All Active Problems (Last Updated 01/09/19 @ 15:45 by Lizzie Fatima) RUQ abdominal pain (Acute) Mid back pain (Acute) Bradycardia (Acute) Palpitations (Acute) Hair loss (Acute) Fatigue (Acute) Chest pain (Acute) The patient is a 54 y/o F w/ PMHx: Chronic BL LE Edema for which she notes taking lasix, Unclear HTN, Asthma, GERD, Obesity, VETO, IBS, Chronic Bradycardia following w/ Dr. Bateman who presents to the 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 1. Chest Pain: EKG in ED with no acute evidence of ischemia, CXR w/ no acute cardiopulmonary findings, initial trop normal x1. Will admit to PCU, place on a monitored bed to assure no acute myocardial infarction with serial cardiac enzymes and EKGs. If cardiac enzymes and repeat EKG remain unremarkable will pursue cardiac and stress testing on Tuesday. ASA, NG, morphine. FLP in AM. Mag p ending. 2. Sinus bradycardia: Following with Dr. Bateman, not on any rate control agents, maintained on telemetry as noted #1. 3. ? Hypertension: Continue home regimen including Lasix although this may be for chronic lower extremity edema, PRN hydralazine. 4. GERD: We will continue home ranitidine regimen. 5. Chronic asthma: PRN albuterol, HOB, IS parameters, continue home Flonase regimen. 6. Obesity: Weight loss and lifestyle changes encouraged, nutrition consulted. 7. IBS: We will continue patient home dicyclomine regimen. 8. VETO: CPAP nightly. 9. DVT prophylaxis: SCDs, Lovenox. Code Visit OBSV E&M: 00340 Initial observation care L3
--- NOTE | 2019-01-20 18:21 | EKG12_ITS ---
Test Reason : ADM EKG Blood Pressure : / mmHG Vent. Rate : 045 BPM Atrial Rate : 045 BPM P-R Int : 182 ms QRS Dur : 098 ms QT Int : 418 ms P-R-T Axes : 027 -14 -07 degrees QTc Int : 361 ms Sinus bradycardia Cannot rule out Anterior infarct , age undetermined Abnormal ECG When compared with ECG of 20-JAN-2019 16:43, MANUAL COMPARISON REQUIRED, DATA IS UNCONFIRMED Confirmed by DARYN HUFF ([id number]), commissioning editor JESSENIA FERNANDEZ ([id number]) on 01/26/2019 11:31:24 AM Referred By: SARABJIT Confirmed By:DARYN HUFF
[2019-01-20 18:40] LABS: Magnesium 1.9 mg/dL (1.6-2.6)
[2019-01-20] MEDS: 0.9% Normal Saline 1,000 ML 100 ML IV (20:01)
[2019-01-20] MEDS: 0.9% Saline Lock 10 ML Syringe IV (22:27)
[2019-01-20] MEDS: Hydrocortisone 2.5% Crm 1 APPLIC TOPICAL (22:28)
[2019-01-20] MEDS: Famotidine 20 MG Tablet PO (22:29)
[2019-01-21] VITALS (10 sets, daily range): BP systolic 96–112; BP diastolic 50–65; PULSE 20–77; RESP 16–20; TEMP 36.4–36.7; O2SAT 94–99
[2019-01-21] MEDS: Morphine 2 MG/ML Syringe IV (00:40)
--- NOTE | 2019-01-21 05:55 | EKG12_ITS ---
Test Reason : AM EKG Blood Pressure : / mmHG Vent. Rate : 043 BPM Atrial Rate : 043 BPM P-R Int : 202 ms QRS Dur : 094 ms QT Int : 444 ms P-R-T Axes : 042 -06 -07 degrees QTc Int : 375 ms Marked sinus bradycardia Abnormal ECG When compared with ECG of 20-JAN-2019 18:58, MANUAL COMPARISON REQUIRED, DATA IS UNCONFIRMED Confirmed by DARYN HUFF ([id number]), metropolitan editor JESSENIA FERNANDEZ ([id number]) on 01/26/2019 11:32:13 AM Referred By: SARABJIT Confirmed By:DARYN HUFF
[2019-01-21 06:11] LABS: Absolute Lymphocyte Count 2.87 X10^3/uL (0.83-4.51); Absolute Neutrophil Count 2.5 X10^3/uL (2.0-7.7); Basophil# 0.04 X10^3/uL; Basophil% 0.7 % (0-1); Eosinophil# 0.12 X10^3/uL; Hematocrit 38.8 % (37-47); Hemoglobin 12.7 g/dL (12.0-15.0); Lymphocyte # 2.87 X10^3/ul (4.0); Lymphocyte % 47.3 % (19-41); Mean Corp Hgb Conc 32.7 g/dL (32-36); Mean Corpuscular Hgb 29.2 pg (27.0-32.0); Mean Corpuscular Volume 89.2 fL (81-99); Mean Platelet Vol. 11.9 fl (6.2-12.0); Monocyte% 8.2 % (0-10); NRBC Flagged by Analyzer 0 % (0-5); Neutrophil # 2.53 X10^3/uL (2.7-7.7); Neutrophil % 41.6 % (47-70); Platelet Count 177 K/mm3 (150-450); RBC Distribution Width CV 14.4 % (11.6-14.6); RBC Distribution Width SD 46.9 fl (35.1-43.9); Red Blood Count 4.35 M/mm3 (4.2-5.4); White Blood Count 6.1 K/mm3 (4.4-11.0)
[2019-01-21 06:31] LABS: BUN 15 mg/dL (7-18); Creatinine, Serum 0.99 mg/dL (0.55-1.02); Glucose 82 mg/dL (74-106)
[2019-01-21 06:32] LABS: Anion Gap 5 (5-15); BUN/Creat Ratio 15.2 RATIO (10-20); Calcium,Total 8.4 mg/dL (8.5-10.1); Chloride 107 mmol/L (98-107); Cholesterol 148 mg/dL (200); EST Glomerular Filtration Rate 62 mL/min (>60); Est Glom Filt Rate - Afr Amer 75 mL/min (>60); Estimated Creatinine Clearance 55.44 ml/min; High Density Lipoprotein 41 mg/dL; Potassium 4.4 mmol/L (3.5-5.1); Sodium Level 142 mmol/L (136-145); Triglycerides 102 mg/dL; Very Low Density Lipoprotein 20 mg/dL (5-40)
--- NOTE | 2019-01-21 08:19 | ECHOCS_ITS ---
Reason For Study: CP Procedure This was a 2D Doppler, Color Flow transthoracic echocardiogram. The study was technically difficult. Contrast injection was performed. Exam performed in department. Left Ventricle Normal size and thickness. The estimated ejection fraction is 65 %. Normal diastology for age. No regional wall motion abnormalities noted. Right Ventricle Normal size and thickness. Normal systolic function. Atria Normal left atrium. Normal right atrium. Normal atrial septum. Mitral Valve The mitral valve is structurally normal. No prolapse or stenosis seen. Tricuspid Valve Normal tricuspid valve. Trivial tricuspid valve insufficiency. Right ventricular systolic pressure estimated to be 26 mmHg. Aortic Valve Normal aortic valve. Trisinus/trileaflet aortic valve. Pulmonic Valve Normal pulmonic valve. Great Vessels Normal aortic root. Normal arch. Normal inferior vena cava. Inferior vena cava collapse with sniff. Pericardium/Pleural No pericardial effusion. Medication Diluted definity 1ml given slow IV push to enhance endocardial definition. MMode/2D Measurements & Calculations LVIDd: 4.5 cm IVSd: 0.92 cm Ao root diam: 3.0 cm LVIDs: 3.2 cm LVPWd: 1.1 cm LA dimension: 3.9 cm RVDd: 2.9 cm FS: 27.4 % LAV(MOD-bp): 56.5 ml LVAd ap4: 32.0 cm2 SV(MOD-sp4): 52.4 ml LAV(MOD-bp) Indexed: 27.4 ml/m2 EDV(MOD-sp4): 103.2 ml LAV(MOD-sp2): 54.8 ml EDV(sp4-el): 108.7 ml LAV(MOD-sp4): 52.5 ml LVAs ap4: 19.8 cm2 ESV(MOD-sp4): 50.8 ml ESV(sp4-el): 51.5 ml EF(MOD-sp4): 50.8 % EF(sp4-el): 52.6 % SV(sp4-el): 57.2 ml LA A4 area: 17.5 cm2 RA A4 area: 10.4 cm2 Time Measurements MV dec time: 0.24 sec Doppler Measurements & Calculations MV E max slava: 101.9 cm/sec Lat Peak E' Slava: 11.2 cm/sec Med Peak E' Slava: 11.2 cm/sec MV A max slava: 62.7 cm/sec E/E' lat: 9.1 E/E' med: 9.1 MV E/A: 1.6 MV V2 max: 97.3 cm/sec MV P1/2t max slava: 98.2 cm/sec Ao V2 max: 135.6 cm/sec MV max P.8 mmHg MV P1/2t: 90.2 msec Ao max P.4 mmHg MV V2 mean: 45.8 cm/sec Ao V2 mean: 86.6 cm/sec MV mean P.0 mmHg MV dec slope: 318.8 cm/sec2 Ao mean P.5 mmHg MV V2 VTI: 32.4 cm MVA(P1/2t): 2.4 cm2 Ao V2 VTI: 33.4 cm LV V1 max: 114.9 cm/sec PA V2 max: 74.2 cm/sec TR max slava: 229.6 cm/sec LV V1 max P.3 mmHg TR max P.1 mmHg LV V1 mean P.7 mmHg LV V1 mean: 77.9 cm/sec LV V1 VTI: 27.3 cm Interpretation Summary The estimated ejection fraction is 65 %. Normal diastology for age. Trivial tricuspid valve insufficiency. Right ventricular systolic pressure estimated to be 26 mmHg. The study was technically difficult. Contrast injection was performed. There is no comparison study available. Ordering Physician: Jose Enrique Hooper Referring Physician: Sam Null M.D. Performed By: Jaquan Burkett RCS
[2019-01-21] MEDS: Aspirin E.C. 81 MG Tablet PO (08:26)
--- NOTE | 2019-01-21 10:39 | PCM.PROGNOTE ---
Subjective: Patient was seen and examined today, she still complains of precordial chest pressure, she states this has been continuous for over 24 hours. Patient's cardiac enzymes are negative, I changed her stress test to an echo stress test for tomorrow, also ordered a complete echocardiogram on the patient. Patient does have chest discomfort on applying pressure to her chest wall. Patient has a past history of sleep apnea but does not use CPAP or BiPAP, she states she is being set up to see a senior web analyst locally-patient states she moved from [place] about a year ago. - Physical Exam Vitals/I&O's: Vital Signs Temp Pulse Resp BP Pulse Ox 97.5 F L 52 L 18 112/52 L 98 01/21/19 08:27 01/21/19 08:27 01/21/19 08:27 01/21/19 08:27 01/21/19 08:27 Oxygen Flow Rate (L/min) 2 Oxygen Delivery Method Room Air Weight: 104.7 kg Body Mass Index (BMI) 38.5 Intake and Output for Last 24 Hours 01/19/19 01/20/19 01/21/19 23:59 23:59 23:59 Intake Total 796.67 / 796.67 661.67 / 661.67 Balance 796.67 / 796.67 661.67 / 661.67 General: Alert, Oriented x3, Cooperative, No apparent distress, Well developed, Well nourished HEENT: Atraumatic, PERRLA, EOMI, Normocephalic Oral: Moist Mucosa Neck: Supple, Trachea Midline, Thyroid Normal Size and Texture Lungs: Clear to auscultation, Normal air movement, No rhonchi, No wheeze, No rales Cardiovascular: Regular rate, Regular Rhythm, Normal S1, Normal S2, No murmurs Abdomen: Bowel Sounds Present, Soft, Non Tender, Non-Distended Extremities: No clubbing, No cyanosis, No edema, Capillary Refill Less than 3 Seconds Skin: No rashes, No breakdown Musculoskeletal: No Tenderness to Palpation of Joints or Extremities, Tenderness - There is tenderness to palpation over the patient's mid chest wall Neurological: Cranial nerves II-XII grossly intact, Neuro grossly intact, Muscle tone normal, Sensory exam intact to light touch and pain Psych/Mental Status: Normal Affect, Appropriate, Alert and oriented to time, place, person, mood and affect Laboratory Results 01/20/19 16:50: WBC 6.9, RBC 4.88, Hgb 13.8, Hct 42.8, MCV 87.7, MCH 28.3, MCHC 32.2, RDW Std Deviation 44.7 H, RDW Coeff of Collin 13.9, Plt Count 193, MPV 11.3, Immature Gran % (Auto) 0.100, Neut % (Auto) 60.2, Lymph % (Auto) 30.7, Richardson % (Auto) 7.2, Eos % (Auto) 1.4, Baso % (Auto) 0.4, Absolute Neuts (auto) 4.2, Absolute Lymphs (auto) 2.12, Nucleated RBC % 0 01/20/19 16:50: Sodium 142, Potassium 3.9, Chloride 106, Carbon Dioxide 30.0, Anion Gap 6, BUN 11, Creatinine 0.95, Estim Creat Clear Calc 60.21, Est GFR (MDRD) Af Amer 78, Est GFR (MDRD) Non-Af 65, BUN/Creatinine Ratio 11.5, Glucose 80, Calcium 9.7, Troponin I < 0.015 01/20/19 16:50: Lipase 49 L 01/20/19 16:50: Magnesium 1.9 01/20/19 17:12: POC Glucose 64 L 01/20/19 20:07: Troponin I < 0.015 01/20/19 22:57: Troponin I < 0.015 01/21/19 05:17: WBC 6.1, RBC 4.35, Hgb 12.7, Hct 38.8, MCV 89.2, MCH 29.2, MCHC 32.7, RDW Std Deviation 46.9 H, RDW Coeff of Collin 14.4, Plt Count 177, MPV 11.9, Immature Gran % (Auto) 0.200, Neut % (Auto) 41.6 L, Lymph % (Auto) 47.3 H, Richardson % (Auto) 8.2, Eos % (Auto) 2.0, Baso % (Auto) 0.7, Absolute Neuts (auto) 2.5, Absolute Lymphs (auto) 2.87, Nucleated RBC % 0 01/21/19 05:17: Sodium 142, Potassium 4.4, Chloride 107, Carbon Dioxide 30.0, Anion Gap 5, BUN 15, Creatinine 0.99, Estim Creat Clear Calc 55.44, Est GFR (MDRD) Af Amer 75, Est GFR (MDRD) Non-Af 62, BUN/Creatinine Ratio 15.2, Glucose 82, Calcium 8.4 L, Triglycerides 102, Cholesterol 148, LDL Cholesterol 87, VLDL Cholesterol 20, HDL Cholesterol 41 Current Medications Acetaminophen (Tylenol) 650 mg PO Q6H PRN PRN PRN Reason: Non-cardiac pain (mod-severe) Hydrocodone Bitart/Acetaminophen ([place] 5mg-325mg) 1 - 2 tablet PO Q4H PRN PRN PRN Reason: Pain Score 4-10/10 Al Hydroxide/Mg Hydroxide (Mylanta Ii) 15 - 30 ml PO Q4H PRN PRN PRN Reason: INDIGESTION Albuterol Sulfate (Ventolin Aerosols) 2.5 mg INHALATION Q2H PRN PRN PRN Reason: dyspnea, wheezing Aspirin (Ecotrin) 81 mg PO DAILY@0800 [facility] Last Admin: 01/21/19 08:26 Dose: 81 mg Documented by: Dextrose (D50w Syringe) 0 gm IV X1 PRN; Protocol PRN Reason: Hypoglycemia Dicyclomine HCl (Bentyl) 10 mg PO TID PRN PRN Reason: pain Docosanol (Abreva) 1 applic TP DAILY [facility] Enoxaparin Sodium (Lovenox) 40 mg SC DAILY@1000 [facility] Famotidine (Pepcid) 20 mg PO BID [facility] Last Admin: 01/20/19 22:29 Dose: 20 mg Documented by: Fluticasone Propionate (Flonase Nasal [place]) 2 spray NASAL DAILY [facility] Furosemide (Lasix) 20 mg PO DAILY [facility] Glucagon () 1 mg IM .X1 PRN PRN Reason: Hypoglycemia Hydralazine HCl (Apresoline Iv) 10 mg IV Q4H PRN PRN PRN Reason: SBP > 160 Hydrocortisone (Hytone) 1 applic TOPICAL BID [facility]; Protocol Last Admin: 01/20/19 22:28 Dose: 1 applicatio Documented by: Magnesium Hydroxide (Milk Of Magnesia) 30 ml PO DAILY PRN PRN Reason: Constipation Melatonin (Melatonin) 3 mg PO QHS PRN PRN PRN Reason: INSOMNIA Morphine Sulfate () 1 - 2 mg IV Q4H PRN PRN PRN Reason: Pain Score 1-12/21 Last Admin: 01/21/19 00:40 Dose: 2 mg Documented by: Nitroglycerin (Nitrostat) 0.4 mg SUBLINGUAL Q5M PRN PRN Reason: CARDIAC/CHEST PAIN Ondansetron HCl (Zofran) 4 mg IV Q8H PRN PRN PRN Reason: NAUSEA/VOMITING Potassium Chloride (K-Dur) 10 meq PO DAILYCM EVELIA Last Admin: 01/21/19 08:26 Dose: 10 meq Documented by: Sodium Chloride () 10 - 40 ml IV UD PRN PRN Reason: SALINE FLUSH Last Admin: 01/20/19 22:27 Dose: 10 ml Documented by: Medical Necessity - Tobacco Use Smoking Status: Former smoker Tobacco Use: Non-smoker Assessment/Plan All Active Problems (Last Updated 01/21/19 @ 10:43 by Jose Enrique Hooper DO) RUQ abdominal pain (Resolved) Mid back pain (Resolved) Chest pain (Acute) #1 precordial chest pain-patient will undergo an echo stress test tomorrow as well as a echocardiogram. #2 elevated TSH-patient's T4 level however is normal, she will need to have labs rechecked as an outpatient-I went over this with her. #3 obstructive sleep apnea-noncompliant with medical treatment-patient will need to follow-up with a senior web analyst as an outpatient concerning this, according to her, this is already been set up #4 GERD Code Visit OBSV E&M: 50280 Subsequent observation care L2
[2019-01-21] MEDS: Famotidine 20 MG Tablet PO ×2 (11:41→22:02)
[2019-01-21] MEDS: Furosemide 20 MG Tablet PO (11:41)
[2019-01-21] MEDS: Hydrocortisone 2.5% Crm 1 APPLIC TOPICAL ×2 (11:41→22:02)
[2019-01-21] MEDS: HYDROcodone Bitartrate/Apap 5/325 Tablet PO (19:30)
[2019-01-21] MEDS: 0.9% Saline Lock 10 ML Syringe IV ×2 (22:04→22:10)
--- NOTE | 2019-01-21 22:57 | NURSING ---
Attempted to start new IV on pt. Did not get blood return, unsuccessful. Pt. very nervous with IV sticks. Pt. became pale, diaphoretic, and stated she felt sick and felt like she was going to pass out. Sat pt. up in bed, got a cool cloth for her head . Tried to comfort pt. When feeling better, pt. wanted to get up and go to the bathroom. No BM. Pt. tolerated being OOB well. Pt. wants to get washed up at this time. Will continue to monitor.
[2019-01-21] MEDS: Acetaminophen 325 MG Tablet 650 MG PO (23:33)
[2019-01-22] VITALS (12 sets, daily range): BP systolic 98–117; BP diastolic 45–57; PULSE 40–80; RESP 16–18; TEMP 36.4–36.9; O2SAT 93–99
[2019-01-22] MEDS: Aspirin E.C. 81 MG Tablet PO (06:36)
[2019-01-22] MEDS: Fluticasone 0.05% 1 SPRAY NASAL.SRY 2 SPRAY NASAL (09:54)
[2019-01-22] MEDS: Furosemide 20 MG Tablet PO (09:54)
[2019-01-22] MEDS: Famotidine 20 MG Tablet PO ×2 (09:54→21:44)
[2019-01-22] MEDS: Hydrocortisone 2.5% Crm 1 APPLIC TOPICAL ×2 (09:55→21:47)
[2019-01-22] MEDS: HYDROcodone Bitartrate/Apap 5/325 Tablet PO ×2 (09:55→20:25)
[2019-01-22] MEDS: Clopidogrel Bisulfate 300 MG Tablet PO (12:52)
--- NOTE | 2019-01-22 13:04 | CASEMGMT ---
According to the [facility] website, the following are in-network tertiary facilities: [facility], [place], [facility], [facility], [facility], [employer], and . Nury MONTALVO CM
[2019-01-22 13:47] LABS: Internal QC Validated? YES +Cl - CLEAR BKGD; Pregnancy, Serum, hCG Quali. NEGATIVE Negative
--- NOTE | 2019-01-22 17:20 | PN_ITS ---
Subjective: Patient was seen and examined today, she underwent an echo stress test today that was nondiagnostic due to the inability the patient to attain her target heart rate, patient's complete echocardiogram showed a normal EF. I had a discussion with Dr. Bateman concerning the patient's care, he recommends the patient undergo a cardiac catheterization tomorrow to exclude coronary artery disease, patient is not against having this procedure done. - Physical Exam Vitals/I&O's: Vital Signs Temp Pulse Resp BP Pulse Ox 97.9 F 65 18 98/51 L 98 01/22/19 15:49 01/22/19 15:49 01/22/19 15:49 01/22/19 15:49 01/22/19 15:49 Oxygen Flow Rate (L/min) 2 Oxygen Delivery Method Room Air Weight: 104.7 kg Body Mass Index (BMI) 38.5 Intake and Output for Last 24 Hours 01/20/19 01/21/19 01/22/19 23:59 23:59 23:59 Intake Total 796.67 / 796.67 1511.67 / 1711.67 610 / 610 Balance 796.67 / 796.67 1511.67 / 1711.67 610 / 610 General: Alert, Oriented x3, Cooperative, No apparent distress, Well developed HEENT: Atraumatic, PERRLA, EOMI, Normocephalic Oral: Moist Mucosa Neck: Supple, Trachea Midline, Thyroid Normal Size and Texture Lungs: Clear to auscultation, Normal air movement, No rhonchi, No wheeze, No rales Cardiovascular: Regular rate, Regular Rhythm, Normal S1, Normal S2, No murmurs Abdomen: Bowel Sounds Present, Soft, Non Tender, Non-Distended Extremities: No clubbing, No cyanosis, No edema, Capillary Refill Less than 3 Seconds Skin: No rashes, No breakdown Musculoskeletal: No Tenderness to Palpation of Joints or Extremities Neurological: Cranial nerves II-XII grossly intact, Neuro grossly intact, Sensory exam intact to light touch and pain, Coordination normal Psych/Mental Status: Normal Affect, Appropriate, Alert and oriented to time, place, person, mood and affect Laboratory Results 01/22/19 13:05: Serum , Qual NEGATIVE Current Medications Acetaminophen (Tylenol) 650 mg PO Q6H PRN PRN PRN Reason: Non-cardiac pain (mod-severe) Last Admin: 01/21/19 23:33 Dose: 650 mg Documented by: Hydrocodone Bitart/Acetaminophen ([place] 5mg-325mg) 1 - 2 tablet PO Q4H PRN PRN PRN Reason: Pain Score 4-10/10 Last Admin: 01/22/19 09:55 Dose: 2 tablet Documented by: Al Hydroxide/Mg Hydroxide (Mylanta Ii) 15 - 30 ml PO Q4H PRN PRN PRN Reason: INDIGESTION Albuterol Sulfate (Ventolin Aerosols) 2.5 mg INHALATION Q2H PRN PRN PRN Reason: dyspnea, wheezing Aspirin (Ecotrin) 81 mg PO DAILY@0800 COUNTS INCLUDE 234 BEDS AT THE [facility] Last Admin: 01/22/19 06:36 Dose: 81 mg Documented by: Clopidogrel Bisulfate (Plavix) 75 mg PO DAILY COUNTS INCLUDE 234 BEDS AT THE [facility] Dextrose (D50w Syringe) 0 gm IV X1 PRN; Protocol PRN Reason: Hypoglycemia Dicyclomine HCl (Bentyl) 10 mg PO TID PRN PRN Reason: pain Diphenhydramine HCl (Benadryl) 50 mg PO X1 ONE Stop: 01/23/19 07:01 Docosanol (Abreva) 1 applic TP DAILY COUNTS INCLUDE 234 BEDS AT THE [facility] Last Admin: 01/22/19 09:54 Dose: Not Given Documented by: Enoxaparin Sodium (Lovenox) 40 mg SC DAILY@1000 COUNTS INCLUDE 234 BEDS AT THE [facility] Last Admin: 01/22/19 10:48 Dose: Not Given Documented by: Famotidine (Pepcid) 20 mg PO BID COUNTS INCLUDE 234 BEDS AT THE [facility] Last Admin: 01/22/19 09:54 Dose: 20 mg Documented by: Fluticasone Propionate (Flonase Nasal [place]) 2 spray NASAL DAILY COUNTS INCLUDE 234 BEDS AT THE [facility] Last Admin: 01/22/19 09:54 Dose: 2 sprays Documented by: Furosemide (Lasix) 20 mg PO DAILY COUNTS INCLUDE 234 BEDS AT THE [facility] Last Admin: 01/22/19 09:54 Dose: 20 mg Documented by: Glucagon () 1 mg IM .X1 PRN PRN Reason: Hypoglycemia Hydralazine HCl (Apresoline Iv) 10 mg IV Q4H PRN PRN PRN Reason: SBP > 160 Hydrocortisone (Hytone) 1 applic TOPICAL BID COUNTS INCLUDE 234 BEDS AT THE [facility]; Protocol Last Admin: 01/22/19 09:55 Dose: 1 applicatio Documented by: Sodium Chloride () 1,000 mls @ 15 mls/hr IV .Q48H COUNTS INCLUDE 234 BEDS AT THE [facility] Magnesium Hydroxide (Milk Of Magnesia) 30 ml PO DAILY PRN PRN Reason: Constipation Melatonin (Melatonin) 3 mg PO QHS PRN PRN PRN Reason: INSOMNIA Morphine Sulfate () 1 - 2 mg IV Q4H PRN PRN PRN Reason: Pain Score 1-10/10 Last Admin: 01/21/19 00:40 Dose: 2 mg Documented by: Nitroglycerin (Nitrostat) 0.4 mg SUBLINGUAL Q5M PRN PRN Reason: CARDIAC/CHEST PAIN Ondansetron HCl (Zofran) 4 mg IV Q8H PRN PRN PRN Reason: NAUSEA/VOMITING Potassium Chloride (K-Dur) 10 meq PO DAILYCM [facility] Last Admin: 01/22/19 09:54 Dose: 10 meq Documented by: Sodium Chloride () 10 - 40 ml IV UD PRN PRN Reason: SALINE FLUSH Last Admin: 01/21/19 22:10 Dose: 10 ml Documented by: Medical Necessity - Tobacco Use Smoking Status: Former smoker Tobacco Use: Non-smoker Assessment/Plan All Active Problems (Last Updated 01/21/19 @ 10:43 by Jose Enrique Hooper DO) RUQ abdominal pain (Resolved) Mid back pain (Resolved) Chest pain (Acute) #1 precordial chest pain-patient will undergo a cardiac catheterization tomorrow #2 elevated TSH-patient's T4 level however is normal, she will need to have labs rechecked as an outpatient-I went over this with her. #3 obstructive sleep apnea-noncompliant with medical treatment-patient will need to follow-up with a brand leader as an outpatient concerning this, according to her, this is already been set up #4 GERD Code Visit OBSV E&M: 94990 Subsequent observation care L3
[2019-01-22] MEDS: 0.9% Saline Lock 10 ML Syringe IV (20:25)
[2019-01-23] VITALS (15 sets, daily range): BP systolic 100–117; BP diastolic 50–86; PULSE 43–74; RESP 12–18; TEMP 36.6–36.7; O2SAT 97–100
--- NOTE | 2019-01-23 05:55 | EKG12_ITS ---
Test Reason : AM EKG Blood Pressure : / mmHG Vent. Rate : 048 BPM Atrial Rate : 048 BPM P-R Int : 208 ms QRS Dur : 102 ms QT Int : 446 ms P-R-T Axes : 044 -05 011 degrees QTc Int : 398 ms Sinus bradycardia Otherwise normal ECG When compared with ECG of 21-JAN-2019 04:58, MANUAL COMPARISON REQUIRED, DATA IS UNCONFIRMED Confirmed by DARYN HUFF ([id number]), editorial cartoonist JESSENIA FERNANDEZ ([id number]) on 01/26/2019 11:36:33 AM Referred By: DR MAC Confirmed By:DARYN HUFF
[2019-01-23] MEDS: Clopidogrel Bisulfate 75 MG Tablet PO (06:42)
[2019-01-23] MEDS: Aspirin E.C. 81 MG Tablet PO (06:42)
[2019-01-23] MEDS: DiphenhydrAMINE 25 MG Capsule 50 MG PO (06:56)
[2019-01-23] MEDS: 0.9% Saline Lock 10 ML Syringe IV ×2 (07:00→09:13)
[2019-01-23] MEDS: 0.9% Normal Saline 1,000 ML 15 ML IV (07:25)
--- NOTE | 2019-01-23 09:10 | CL.D_ITS ---
Patient Name: JOELLEN GANT Study Date: 01/23/2019 Performing: Reginald Bateman MD Ht: 65 inches 165 cm : 1965 Wt: 231.8 lbs 105 kg Age: 54 Gender: female BSA: 2.1 PROCEDURE(S) PERFORMED [id number]/LHC/COR/LV CLINICAL PROFILE AND INDICATIONS Indications: New Onset Angina <= 2 months, Suspected CAD Heart Failure: None Stress/Imaging Date: 01/22/2019Stress Echocardiogram: Indeterminant Angina Classification Anginal Classification w/in 2 Weeks: CCS III CAD Presentations: Unstable angina. 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 Start low dose statin for non-obstructive disease. Manual sheath removal d/w Dr Gee. f/u with Dr Bateman DESCRIPTION OF PROCEDURE The patient arrived to the procedure lab. The risks and benefits of the procedure as well as a full d escription of our services here and current unavailability of surgical backup were fully explained to the patient and/or their significant other prior to the catheterization. The Timeout was completed, verifying the correct patient and procedure. The patient's procedural site was prepped and draped in the usual fashion. Local anesthetic was given subcutaneously to right groin region with Lidocaine 2%. Using a modified Seldinger technique, arterial access was obtained via the right femoral artery, a 4 Fr sheath was inserted Venous access was obtained via the right femoral vein, a 7Fr sheath was insert ed. A 7Fr thermal dilution catheter was inserted and right heart pressures were recorded, it was then advanced to PA position for cardiac outputs. Thermal dilution cardiac outputs were then recorded. Le ft Ventriculography was performed in [place] projection using a 4 Fr. Pigtail catheter. O2 saturations were then obtained. The Thermal dilution catheter was then removed. Left Coronary Artery selective angiography was performed in multiple views using a 4 Fr. JL5 catheter. Left Coronary Arter y selective angiography was performed in multiple views using a 4 Fr. JL4 catheter. Right Coronary Ar ludivina selective angiography was then performed in multiple views using a 4 Fr. 3DRC catheter.The arter ial sheath was pulled and manual compression applied until hemostasis is achieved.. The venous sheath was then pulled and manual compression applied until hemostasis achieved CORONARY ANGIOGRAPHY DOMINANCE: Right Dominant LEFT HEART ASSESSMENT Left Ventricular Ejection Fraction: by LV Gram 65 % Normal LV wall motion Normal Left Ventricular systolic function Normal Left Ventricular systolic function Normal Left Ventricular End Diastolic Pressure RIGHT HEART ASSESSMENT Thermal CO: 4.08 Thermal CI: 1.94 Edward CO: 5.39 Edward CI: 2.57 PW: 12/01 11 PA: 06/01 15 RV: 11/04 8 RA: 10/19 6 PVR: 78 SVR: 1412 Right Heart pressures - normal LEFT MAIN: Angiographically normal LEFT ANTERIOR DESCENDING ARTERY: DISTAL LAD: Mild luminal irregularities less than 30% CIRCUMFLEX ARTERY: Angiographically normal RIGHT CORONARY ARTERY: Angiographically normal COMPLICATIONS No Complications PROCEDURE MEDICATIONS Versed 1 mg IV Versed 1 mg IV SUMMARY OF HEMODYNAMIC DATA Time AIR REST ECG 07:42:01 RA 10/19 (6) SV 07:57:08 RV 29/1, 8 07:57:23 PW 12/01 (11) PV 07:57:59 PA 06/01 (15) PA 07:58:12 LV 120/-13, 9 08:02:58 LV 107/-13, 7 08:03:04 LV 104/-12, 7 08:03:33 PW 11/18 (5) 08:03:33 LV 118/-15, 7 08:03:40 PW 12/22 (6) 08:03:40 LV 131/-14, 9 08:04:09 RV 29/-4, 6 08:04:09 LV 126/-13, 11 08:04:15 RV 29/-2, 6 08:04:15 LV 121/-13, 8 08:05:27 LV 136/-11, 13 08:05:32 LVp 136/-14, 13 08:05:37 AOp 122/55 (80) 08:05:42 AO 96/60 (78) SA 08:10:22 Type SV CO (l/m) CI (l/m/ HR Time AIR REST Thermal 55.10 4.08 1.94 74 07:42:01 Edward 72.80 5.39 2.57 74 07:42:01 Label % O2 Pres/Loc Time AIR REST PA 65 PA 08:09:56 AO 95 PV 08:10:03 Signed By Reginald Bateman MD On 01/23/2019 9:10:10 AM Reginald Bateman MD
[2019-01-23] MEDS: Morphine 2 MG/ML Syringe IV (09:12)
[2019-01-23 09:16] LABS: Base Excess -1 mmol/L (-2 to +2); Bicarbonate 22.8 mmol/L (22-26); Blood Gas Specimen Type ART; PO2 75 mmHG (75-100); SO2 95 % (95-99); Total Carbon Dioxide 24 mmol/L; pCO2 33.6 mmHg (35-45); pH 7.44 (7.35-7.45)
[2019-01-23 09:16] LABS: Blood Gas Specimen Type VEN; VBG BASE EXCESS 1 mmol/L (-1.0-3.5); VBG Bicarbonate 26 mmol/L (22-26); VBG Oxygen Content 27 mmol/L (23-33); VBG PO2 32 mmHg (25-40); VBG SO2 63 % (50-70); VBG pCO2 40.8 mmHg (41-51); VBG pH 7.41 (7.32-7.42)
[2019-01-23 09:16] LABS: Blood Gas Specimen Type VEN; VBG BASE EXCESS 1 mmol/L (-1.0-3.5); VBG Bicarbonate 25 mmol/L (22-26); VBG Oxygen Content 27 mmol/L (23-33); VBG PO2 34 mmHg (25-40); VBG SO2 65 % (50-70); VBG pCO2 40.1 mmHg (41-51); VBG pH 7.41 (7.32-7.42)
[2019-01-23] MEDS: Famotidine 20 MG Tablet PO (10:39)
[2019-01-23] MEDS: Hydrocortisone 2.5% Crm 1 APPLIC TOPICAL (10:39)
[2019-01-23] MEDS: Fluticasone 0.05% 1 SPRAY NASAL.SRY 2 SPRAY NASAL (10:41)
[2019-01-23] MEDS: Carvedilol 3.125 MG TABLET PO (11:10)
[2019-01-23] MEDS: Furosemide 20 MG Tablet PO (11:10)
--- NOTE | 2019-01-23 11:11 | DCINST_ITS ---
- Discharge Diagnoses Current Active Problems: Current Active and Chronic Problems (Last Updated 01/23/19 @ 09:29 by Lizzie Fatima) History of right and left heart catheterization (Chronic 01/23/19) Normal coronary arteries;vNormal LV size, wall motion,and systolic function;vPerserved Left Ventricular systolic function with normal EDP;vNon obstructive coronary arteries;per DJN @ [facility] 01/23/2019 Reason(s) for Visit for Discharge Instructions: Chest pain You will use the following diet at home:: Cardiac Your food should be the consistency of: Regular Your liquids should be the consistency of: Regular/Thin Discharge Activity: Return to Normal Activity Additional Instructions: Continue all your medications as presctribed. Follow a low salt, low fat diet. Follow-up with Dr. Bateman within 2-4 weeks. Allergies/Adverse Reactions: Allergies No Known Allergies Allergy (Verified 01/20/19 16:39) Medications to take at Discharge albuterol sulfate HFA 90 mcg/actuation aerosol inhaler 2 puff INHALATION Q4H PRN g 12/13/18 dicyclomine 10 mg capsule 10 mg PO TID PRN 12/13/18 docosanol 10 % topical cream 1 applic TOPICAL DAILY g 12/13/18 fluticasone propionate 50 mcg/actuation nasal spray,suspension 2 spray INTRANASAL DAILY 12/13/18 hydrocortisone 2.5 % topical cream 1 applic TOPICAL BID 12/13/18 ranitidine 150 mg tablet 150 mg PO BID 12/13/18 furosemide 20 mg tablet 20 mg PO DAILY #30 tab 01/09/19 potassium chloride ER 10 mEq capsule,extended release 10 meq PO DAILY #30 cap 01/09/19 Aspirin E.C. [Ecotrin] 81 mg PO DAILY@0800 #30 tab 01/23/19 Atorvastatin Calcium 20 mg PO DAILY #30 tab 01/23/19 Carvedilol [Coreg (Beta Catarina)] 3.125 mg PO BID #60 tab 01/23/19 Nitroglycerin (INPATIENT USE) [Nitrostat] 0.4 mg SUBLINGUAL Q5M PRN #10 tab.subl 01/23/19 The following prescriptions were given: Atorvastatin Calcium 20 mg PO DAILY #30 tab Transmission Status: Pending to [facility] Carvedilol [Coreg (Beta Catarina)] 3.125 mg PO BID #60 tab Aspirin E.C. [Ecotrin] 81 mg PO DAILY@0800 #30 tab Nitroglycerin (INPATIENT USE) [Nitrostat] 0.4 mg SUBLINGUAL Q5M PRN #10 tab.subl PRN Reason: Cardiac/Chest Pain Primary Care Physician: Sam Null MD [Primary Care Provider] - Please follow up with your Primary Care Physician in: within 1-2 weeks Test Results: Test results from this visit will be discussed in further detail at your follow- up appointment, if applicable. Please Follow Up With: Reginald Bateman MD When: within 2-4 weeks Proposed Discharge Date: 01/23/19
--- NOTE | 2019-01-23 11:13 | DS.PCM_ITS ---
Discharge Date and Diagnosis Date of Admission: 01/20/19 Date of Discharge: 01/23/19 - Primary Discharge Diagnosis Chest pain Elevated TSH VETO GERD - Secondary Discharge Diagnosis Chronic Problems (Last Updated 01/21/19 @ 10:43 by Jose Enrique Hooper DO) History of right and left heart catheterization (Chronic 01/23/19) Normal coronary arteries;vNormal LV size, wall motion,and systolic function;vPerserved Left Ventricular systolic function with normal EDP;vNon obstructive coronary arteries;per DJN @ [facility] 01/23/2019 Hypersomnia (Chronic) 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 apnea (Chronic) needs gallbladder out (Chronic) Edema (Chronic) History of syncope (Chronic ~2000) Obesity (Chronic) Asthma (Chronic) Low back pain (Chronic) IBS (irritable bowel syndrome) (Chronic) GERD (gastroesophageal reflux disease) (Chronic) Bilateral carpal tunnel syndrome (Chronic) Hospital Course and Treatment Imaging Results: Clinical Impression(s) from Imaging Studies Chest X-Ray 01/20/19 17:00 IMPRESSION: Normal x-ray examination of the chest. Electronically Signed: Zaida Pool MD at 17:17 EST Tel , Service support , Cardiology Operations: None Procedures: Cardiac catheterization Summary of Care Provided: The patient is a 54 year old F with past medical history of asthma, hypertension, GERD, VETO not on CPAP who follows with Dr. Bateman in the outpatient who comes to the hospital with midsternal chest pain radiating across her chest with associated dyspnea, nausea without emesis and mild diaphoresis. She was admitted to the telemetry bed. Underwent cardiac stress test and results with a nondiagnostic because patient was unable to achieve a target rate. Patient underwent cardiac catheterization on 01/23/19 and results showed nonobstructive coronary arteries. Patient continued to remain asymptomatic and was discharged to follow-up with her primary engineering inspector and primary care doctor. Subjective: Patient was seen and examined. Denies any new complains. No more chest pain, dizziness, palpitations. Objective: Physical exam: General: Alert, Oriented x3, Cooperative, No apparent distress, Well developed HEENT: Atraumatic, PERRLA, EOMI, Normocephalic Oral: Moist Mucosa Neck: Supple, Trachea Midline, Thyroid Normal Size and Texture Lungs: Clear to auscultation, Normal air movement, No rhonchi, No wheeze, No rales Cardiovascular: Regular rate, Regular Rhythm, Normal S1, Normal S2, No murmurs Abdomen: Bowel Sounds Present, Soft, Non Tender, Non-Distended Extremities: No clubbing, No cyanosis, No edema, Capillary Refill Less than 3 Seconds Skin: No rashes, No breakdown Musculoskeletal: No Tenderness to Palpation of Joints or Extremities Neurological: Cranial nerves II-XII grossly intact, Neuro grossly intact, Sensory exam intact to light touch and pain, Coordination normal Psych/Mental Status: Normal Affect, Appropriate, Alert and oriented to time, place, person, mood and affect - Physical Exam Vitals/I&O's: Vital Signs Temp Pulse Resp BP Pulse Ox 97.9 F 60 14 103/69 98 01/23/19 10:45 01/23/19 10:59 01/23/19 10:45 01/23/19 10:45 01/23/19 10:45 Oxygen Flow Rate (L/min) 2 Oxygen Delivery Method Room Air Weight: 104.7 kg Body Mass Index (BMI) 38.5 Intake and Output for Last 24 Hours 01/21/19 01/22/19 01/23/19 23:59 23:59 23:59 Intake Total 1511.67 / 1711.67 1290 / 1290 Balance 1511.67 / 1711.67 1290 / 1290 Laboratory Results 01/22/19 13:05: Serum , Qual NEGATIVE 01/23/19 08:02: Specimen Type JANETTE, VBG pH 7.41, VBG pO2 32, VBG O2 Sat (Calc) 63, VBG O2 Content 27, VBG Base Excess 1, POC Mix VBG pCO2 Pt Tmp 40.8 L 01/23/19 08:05: Specimen Type JANETTE, VBG pH 7.41, VBG pO2 34, VBG O2 Sat (Calc) 65, VBG O2 Content 27, VBG Base Excess 1, POC Mix VBG pCO2 Pt Tmp 40.1 L 01/23/19 08:09: Specimen Type ART, pH 7.44, Bicarbonate Actual 22.8, POC Total CO2 24, Base Excess -1, O2 Saturation 95, ABG pCO2 33.6 L, ABG pO2 75 Current Medications Acetaminophen (Tylenol) 650 mg PO Q6H PRN PRN PRN Reason: Non-cardiac pain (mod-severe) Last Admin: 01/21/19 23:33 Dose: 650 mg Documented by: Hydrocodone Bitart/Acetaminophen ([place] 5mg-325mg) 1 - 2 tablet PO Q4H PRN PRN PRN Reason: Pain Score 4-10/10 Last Admin: 01/22/19 20:25 Dose: 2 tablet Documented by: Al Hydroxide/Mg Hydroxide (Mylanta Ii) 15 - 30 ml PO Q4H PRN PRN PRN Reason: INDIGESTION Albuterol Sulfate (Ventolin Aerosols) 2.5 mg INHALATION Q2H PRN PRN PRN Reason: dyspnea, wheezing Aspirin (Ecotrin) 81 mg PO DAILY@0800 [facility] Last Admin: 01/23/19 06:42 Dose: 81 mg Documented by: Carvedilol (Coreg) 3.125 mg PO BID [facility] Last Admin: 01/23/19 11:10 Dose: 3.125 mg Documented by: Dextrose (D50w Syringe) 0 gm IV X1 PRN; Protocol PRN Reason: Hypoglycemia Dicyclomine HCl (Bentyl) 10 mg PO TID PRN PRN Reason: pain Docosanol (Abreva) 1 applic TP DAILY [facility] Last Admin: 01/23/19 10:39 Dose: Not Given Documented by: Famotidine (Pepcid) 20 mg PO BID [facility] Last Admin: 01/23/19 10:39 Dose: 20 mg Documented by: Fluticasone Propionate (Flonase Nasal [place]) 2 spray NASAL DAILY [facility] Last Admin: 01/23/19 10:41 Dose: 2 sprays Documented by: Furosemide (Lasix) 20 mg PO DAILY [facility] Last Admin: 01/23/19 11:10 Dose: 20 mg Documented by: Glucagon () 1 mg IM .X1 PRN PRN Reason: Hypoglycemia Heparin Sodium (Beef Lung) (Heparin 500 Unit/5 Ml (100/Ml)) 500 unit IV UD PRN PRN Reason: HEPARIN FLUSH Hydralazine HCl (Apresoline Iv) 10 mg IV Q4H PRN PRN PRN Reason: SBP > 160 Hydrocortisone (Hytone) 1 applic TOPICAL BID [facility]; Protocol Last Admin: 01/23/19 10:39 Dose: 1 applicatio Documented by: Sodium Chloride () 1,000 mls @ 15 mls/hr IV .Q48H [facility] Last Admin: 01/23/19 07:25 Dose: 15 mls/hr Documented by: Labetalol HCl (Trandate) 5 mg IV X1 PRN PRN Reason: SBP > 160 prior to sheath pull Stop: 01/25/19 08:17 Magnesium Hydroxide (Milk Of Magnesia) 30 ml PO DAILY PRN PRN Reason: Constipation Melatonin (Melatonin) 3 mg PO QHS PRN PRN PRN Reason: INSOMNIA Morphine Sulfate () 1 - 2 mg IV Q4H PRN PRN PRN Reason: Pain Score 1-1010 Last Admin: 01/23/19 09:12 Dose: 2 mg Documented by: Nitroglycerin (Nitrostat) 0.4 mg SUBLINGUAL Q5M PRN PRN Reason: CARDIAC/CHEST PAIN Ondansetron HCl (Zofran) 4 mg IV Q8H PRN PRN PRN Reason: NAUSEA/VOMITING Potassium Chloride (K-Dur) 10 meq PO DAILYCM [facility] Last Admin: 01/23/19 10:38 Dose: 10 meq Documented by: Sodium Chloride () 10 - 40 ml IV UD PRN PRN Reason: SALINE FLUSH Last Admin: 01/23/19 09:13 Dose: 10 ml Documented by: Discharge Diet: Low fat/ Low Cholesterol, 2000 mg Sodium Diet Discharge Activity: Return to Normal Activity Home Medications: Medications to take at Discharge albuterol sulfate HFA 90 mcg/actuation aerosol inhaler 2 puff INHALATION Q4H PRN g 12/13/18 dicyclomine 10 mg capsule 10 mg PO TID PRN 12/13/18 docosanol 10 % topical cream 1 applic TOPICAL DAILY g 12/13/18 fluticasone propionate 50 mcg/actuation nasal spray,suspension 2 spray INTRANASAL DAILY 12/13/18 hydrocortisone 2.5 % topical cream 1 applic TOPICAL BID 12/13/18 ranitidine 150 mg tablet 150 mg PO BID 12/13/18 furosemide 20 mg tablet 20 mg PO DAILY #30 tab 01/09/19 potassium chloride ER 10 mEq capsule,extended release 10 meq PO DAILY #30 cap 01/09/19 Aspirin E.C. [Ecotrin] 81 mg PO DAILY@0800 #30 tab 01/23/19 Atorvastatin Calcium 20 mg PO DAILY #30 tab 11/12/19 Carvedilol [Coreg (Beta Catarina)] 3.125 mg PO BID #60 tab 01/23/19 Nitroglycerin (INPATIENT USE) [Nitrostat] 0.4 mg SUBLINGUAL Q5M PRN #10 tab.subl 01/23/19 Following Prescrptions Were Given to Patient: Atorvastatin Calcium 20 mg PO DAILY #30 tab Transmission Status: Received by [facility] Carvedilol [Coreg (Beta Catarina)] 3.125 mg PO BID #60 tab Transmission Status: Received by GAB[facility]ELA MOELLERVELAND EILEEN Aspirin E.C. [Ecotrin] 81 mg PO DAILY@0800 #30 tab Transmission Status: Received by [facility] EILEEN Nitroglycerin (INPATIENT USE) [Nitrostat] 0.4 mg SUBLINGUAL Q5M PRN #10 tab.subl PRN Reason: Cardiac/Chest Pain Transmission Status: Received by GABRIELA PELLETI[address] RD Primary Care Physician: Sam Null MD [Primary Care Provider] - Please follow up with your Primary Care Physician in: within 1-2 weeks Please Follow Up With: Reginald Bateman MD When: within 2-4 weeks Disposition: Home Minutes spent on discharge:: 40 Patient Condition:: Stable Medical Necessity - Tobacco Use Smoking Status: Former smoker Tobacco Use: Non-smoker Meaningful Use Info Meaningful Use Diagnoses (Choose all that apply): None applicable Code Visit Inpatient E&M: 39571 Disch Hosp
--- NOTE | 2019-01-23 12:57 | PHA.DC.MC ---
Pharmacy Service has performed discharge medication reconciliation and counseling for this patient. 1. CARVEDILOL 3.125MG PO BID 2. ASPIRIN 81MG PO DAILY 3. NITROGLYCERIN 0.4MG SL [id number] PRN CHEST PAIN The patient's discharge medication list was reviewed for discrepancies and discrepancies were resolved. Home Medications albuterol sulfate HFA 90 mcg/actuation aerosol inhaler 2 puff INHALATION Q4H PRN g 12/13/18 dicyclomine 10 mg capsule 10 mg PO TID PRN 12/13/18 docosanol 10 % topical cream 1 applic TOPICAL DAILY g 12/13/18 fluticasone propionate 50 mcg/actuation nasal spray,suspension 2 spray INTRANASAL DAILY 12/13/18 hydrocortisone 2.5 % topical cream 1 applic TOPICAL BID 12/13/18 ranitidine 150 mg tablet 150 mg PO BID 12/13/18 furosemide 20 mg tablet 20 mg PO DAILY #30 tab 01/09/19 potassium chloride ER 10 mEq capsule,extended release 10 meq PO DAILY #30 cap 01/09/19 Aspirin E.C. [Ecotrin] 81 mg PO DAILY@0800 #30 tab 01/23/19 Atorvastatin Calcium 20 mg PO DAILY #30 tab 01/23/19 Carvedilol [Coreg (Beta Catarina)] 3.125 mg PO BID #60 tab 01/23/19 Nitroglycerin (INPATIENT USE) [Nitrostat] 0.4 mg SUBLINGUAL Q5M PRN #10 tab.subl 01/23/19 The patient was counseled on the following discharge medications and changes in medications for homegoing were reviewed. The Reason for Use, instructions for use, and potential side effects were reviewed for all new medications. The patient's questions regarding all of their medications were answered. The patient was able to verbally demonstrate an understanding of their discharge medications.
[2019-01-23] MEDS: HYDROcodone Bitartrate/Apap 5/325 Tablet PO (13:17)
== END 2019-01-23 10:48 | disposition home or self-care (01) ==
LOC: ED 17:11 → PCU 18:14
PROVIDERS: Internal Medicine Cardiovascular Disease; Admitting Provider Family Medicine; Emergency Provider Emergency Medicine; Family Provider Internal Medicine; PCP Internal Medicine; Visit Provider Internal Medicine
DX: R07.89 Other chest pain (principal); R06.02 Shortness of breath; G47.33 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 apnea (adult) (pediatric); J45.909 Unspecified asthma, uncomplicated; K58.9 Irritable bowel syndrome, unspecified; R94.6 Abnormal results of thyroid function studies; K21.9 Gastro-esophageal reflux disease without esophagitis; E66.9 Obesity, unspecified; G56.03 Carpal tunnel syndrome, bilateral upper limbs; Z68.38 Body mass index [BMI] 38.0-38.9, adult; Z87.891 Personal history of nicotine dependence; Z82.49 Family history of ischemic heart disease and other diseases of the circulatory system; Z79.899 Other long term (current) drug therapy; Z71.3 Dietary counseling and surveillance; Z79.51 Long term (current) use of inhaled steroids; Z91.19 Patient's noncompliance with other medical treatment and regimen
CPT/HCPCS: 36415; 71045; 80048; 80061; 82803; 82962; 83690; 83735; 84484; 84703; 85025; 93005; 93017; 93306; 93350; 93460; 96361; 96374; 96375; 96376; 97803; 99152; 99153; 99218; 99285; J7030; Q9957; Q9967; A4216; C1751; C1769; C1894; C8928; C8929; G0378; J2405

== ENCOUNTER → 2019-01-24 16:04 | Outpatient (CLI) | payer MEDICAID, SELFPAY ==
[2019-01-20 18:24] VITALS: BMI 38.5
--- NOTE | 2019-01-24 16:05 | ADUL_ITS ---
Reason For Study: Pain and swelling right groin post cath Right Velocities Rt CFV, SFJ and FV are compressible with normal flow. RT BENDER HAND measures 0.88 x 0.83 cm with a velocity of 127.1 cm/sec. Rt FA measures 0.43 x 0.51 cm with a velocity of 86.9 cm/sec. No pseudoaneurysm noted. Procedure Prelim to Lizzie MONTALVO. Exam performed in department. Interpretation Summary Patent and compressible right common femoral vein and femoral vein and saphenofemoral junction with normal flow patterns identified. Normal diameter right common femoral artery and right superficial femoral artery No evidence for pseudoaneurysm or arteriovenous fistula Ordering Physician: Reginald Bateman Referring Physician: Sam Null M.D. Performed By: Anabela Hedrick RVT
== END ==
PROVIDERS: Family Provider Internal Medicine; PCP Internal Medicine; Referring Provider Internal Medicine Cardiovascular Disease; Visit Provider Internal Medicine Cardiovascular Disease
DX: S75.001A Unspecified injury of femoral artery, right leg, initial encounter (principal); X58.XXXA Exposure to other specified factors, initial encounter; Y93.9 Activity, unspecified; Y92.9 Unspecified place or not applicable; Y99.9 Unspecified external cause status
CPT/HCPCS: 93926

== ENCOUNTER → 2019-01-30 20:00 | Outpatient (CLI) | payer MEDICAID, SELFPAY ==
[2019-01-09 15:13] VITALS: BMI 40.7
== END ==
PROVIDERS: Family Provider Internal Medicine; PCP Internal Medicine; Referring Provider Internal Medicine Cardiovascular Disease; Visit Provider Internal Medicine Cardiovascular Disease
DX: G47.33 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 apnea (adult) (pediatric) (principal); G47.10 Hypersomnia, unspecified
CPT/HCPCS: 95811

== ENCOUNTER → 2019-03-13 13:37 | Outpatient (CLI) | payer MEDICAID, SELFPAY ==
[2019-02-13 07:52] VITALS: BMI 37.4
--- NOTE | 2019-03-14 06:54 | PFT ---
INTRODUCTION: The patient is a 54-year-old female that presents for pulmonary function studies secondary to a diagnosis of asthma. Respiratory therapy reports that the patient was unable to perform reproducible prebronchodilator spirometry. Bronchodilators were used during testing. INTERPRETATION: Forced expiration spirometry demonstrates no evidence of a large airways obstructive ventilatory defect. There was no significant response to aerosolized bronchodilators, based upon strict ATS criteria. Spirograms are of fair quality and plateau normally. Body plethysmography was performed and reveals a decreased TLC to 3.51 L, 68% of predicted, indicative of a moderate restrictive ventilatory impairment. The remainder of the lung volumes are symmetrically reduced. Diffusing capacity by single breath CO is reduced to 65% of predicted. IMPRESSION: Moderate restrictive ventilatory impairment with symmetric reduction in diffusing capacity.
== END ==
PROVIDERS: Family Provider Internal Medicine; PCP Internal Medicine; Referring Provider Nurse Practitioner Acute Care; Visit Provider Nurse Practitioner Acute Care
DX: J45.909 Unspecified asthma, uncomplicated (principal)
CPT/HCPCS: 94060; 94726; 94729

== ENCOUNTER → 2019-03-20 15:43 | Outpatient (CLI) | payer MEDICAID, SELFPAY ==
[2019-03-20 15:05] VITALS: BMI 37.8
[2019-03-20 17:47] LABS: Thyroid Stim Hormone (TSH) 2.94 uIU/mL (0.358-3.74)
[2019-03-22 08:10] LABS: Thyroid Peroxidase AB 17 IU/mL (0-34)
== END ==
PROVIDERS: Family Provider Internal Medicine; PCP Internal Medicine; Referring Provider Internal Medicine Endocrinology, Diabetes & Metabolism; Visit Provider Internal Medicine Endocrinology, Diabetes & Metabolism
DX: R94.6 Abnormal results of thyroid function studies (principal)
CPT/HCPCS: 36415; 84439; 84443; 86376

== ENCOUNTER → 2019-05-04 14:18 | Outpatient (CLI) | payer MEDICAID, SELFPAY ==
[2019-04-24 06:11] VITALS: BMI 37.9
--- NOTE | 2019-05-04 14:19 | RAD_ITS ---
STUDY: X-RAY CHEST REASON FOR EXAM: Female, 54 years old. Shortness of breath. Patient has asthma. TECHNIQUE: PA and lateral views of the chest. COMPARISON: None. FINDINGS: The lungs are clear and expanded. There is no demonstrated pleural abnormality. Normal size heart. Normal mediastinum and gilbert. Normal visualized pulmonary arteries. Normal visualized aortic arch and descending thoracic aorta. There is demineralization of the osseous structures. Normal visualized ribs, clavicles, and shoulders. There is no demonstrated abnormality of the visualized soft tissue structures of the upper abdomen. RAD/Chest PA and Lateral IMPRESSION: 1. No acute cardiopulmonary process. Electronically Signed: Cesar Cornell MD (Brooks) at 16:23 EST , Service support ,
== END ==
PROVIDERS: PCP Internal Medicine; Referring Provider Nurse Practitioner Acute Care; Visit Provider Nurse Practitioner Acute Care
DX: R94.2 Abnormal results of pulmonary function studies (principal)
CPT/HCPCS: 71046

== ENCOUNTER → 2019-06-30 11:08 | Outpatient (CLI) | payer MEDICAID, SELFPAY ==
[2019-04-24 06:11] VITALS: BMI 37.9
[2019-06-27 12:19] VITALS: BMI 37.9
--- NOTE | 2019-06-30 11:13 | CT_ITS ---
STUDY: CT CHEST WITHOUT CONTRAST REASON FOR EXAM: Female, 54 years old. Abnormal PFT, restrictive PFT, SOB, asthma, former smoker, hypertension, afib. RADIATION DOSAGE (If Supplied By Facility): CTDIvol = ( 18.68 ) mGy, DLP = ( 630.19 ) mGycm TECHNIQUE: Transaxial imaging was performed without the administration of intravenous contrast material. Multiplanar coronal and sagittal images were reformatted. Individualized dose optimization techniques were used for this CT. COMPARISON: None. FINDINGS: The lungs are normal. There is no demonstrated pleural abnormality. Normal heart and pericardium. Lymph nodes at the level of the mediastinum noted, largest measuring 0.7 x 0.4 cm. No distinct lymphadenopathy or mass. Normal hilar regions. Normal unenhanced pulmonary arteries. Normal aorta arch and descending thoracic aorta. There are multi-level degenerative changes of the thoracic spine. There is minimal hiatal hernia. Otherwise there is no demonstrated abnormality of the visualized upper abdomen. CT/Chest without Contrast IMPRESSION: No acute cardiopulmonary process. Electronically Signed: Martina Edwards MD at 1:28 EDT , Service support ,
== END ==
PROVIDERS: PCP Internal Medicine; Referring Provider Internal Medicine Critical Care Medicine; Visit Provider Internal Medicine Critical Care Medicine
DX: R94.2 Abnormal results of pulmonary function studies (principal); G47.33 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 apnea (adult) (pediatric); E66.9 Obesity, unspecified
CPT/HCPCS: 71250

== ENCOUNTER → 2019-10-08 14:34 | Outpatient (CLI) | payer MEDICAID, SELFPAY ==
[2019-08-13 12:46] VITALS: BMI 37.9
--- NOTE | 2019-10-08 14:34 | CT_ITS ---
STUDY: CT CHEST WITH CONTRAST REASON FOR EXAM: Female, 54 years old. LUNG MASS, 3 MONTH F/U RADIATION DOSAGE (If Supplied By Facility): CTDIvol = ( 20.26 ) mGy, DLP = ( 734.32 ) mGycm TECHNIQUE: Transaxial imaging was performed following intravenous administration of IV 100mL Isovue-300. Individualized dose optimization techniques were used for this CT. COMPARISON: Chest CT dated JUNE 30 2019 FINDINGS: The lungs are normal. No visualized masses or nodules. No consolidation or pulmonary edema or pleural effusion. No pleural calcifications. There is no demonstrated pleural abnormality. Normal heart size and pericardium. Normal mediastinum. Normal hilar regions. Normal enhanced pulmonary arteries. Normal aorta arch and descending thoracic aorta. There are multi-level degenerative changes of the thoracic spine. There is no demonstrated abnormality of the visualized upper abdomen. CT/Chest WITH Contrast IMPRESSION: 1. No visualized masses or nodules. No consolidation or pulmonary edema or pleural effusion. No pleural calcifications. Electronically Signed: Robin Fajardo MD at 20:52 EDT , Service support ,
== END ==
PROVIDERS: PCP Internal Medicine; Referring Provider Nurse Practitioner Acute Care; Visit Provider Nurse Practitioner Acute Care
DX: R59.0 Localized enlarged lymph nodes (principal)
CPT/HCPCS: 71260; Q9967

== ENCOUNTER 2019-12-16 23:22 | Emergency (ER) | payer MEDICAID, SELFPAY ==
[2019-12-04 05:54] VITALS: BMI 37.9
[2019-12-16 23:23] VITALS: BP 149/82; PULSE 68; RESP 14; TEMP 36.4; O2SAT 100; BMI 35.6
--- NOTE | 2019-12-16 23:44 | EKG12_ITS ---
Test Reason : DIZZY Blood Pressure : / mmHG Vent. Rate : 046 BPM Atrial Rate : 046 BPM P-R Int : 196 ms QRS Dur : 100 ms QT Int : 420 ms P-R-T Axes : 057 -16 -02 degrees QTc Int : 367 ms Sinus bradycardia Abnormal ECG Confirmed by EDILBERTO MOLINA MD ([id number]), editor book ZACKARY BARNES ([id number]) on 12/19/2019 10:09:04 AM Referred By: FARSHAD Confirmed By:EDILBERTO MOLINA MD
--- NOTE | 2019-12-16 23:45 | ED.DCSUM_ITS ---
- ER Visit Summary Date of Service: 12/16/19 Chief Complaint: Not feeling well after drinking high caffeinated beverages History of Present Illness: The patient is a 54 F history of palpitations, A. fib, hypertension and low blood sugar. Patient states she had a cardiac cath in the past that was clean. She states that tonight she drank 2 ice coffees and a muscle energy drink that was highly caffeinated and had a lot of sugar in it. After that she is did not feel well. She denies abdominal pain or nausea. She denies vomiting or diarrhea. No dysuria. No fever. Currently no chest pain. No shortness of breath. Physical Examination: Middle-aged female no acute distress. Vital signs stable afebrile. Pulse ox are percent on room air. Heart rate with him in the room is 62. Blood pressure is 124/67. H EENT exam unremarkable. Neck nontender. Lungs clear to auscultation bilaterally. Heart regular rate and rhythm rate about 62 no murmur. Chest were nontender. Abdomen mildly obese but soft. Nontender. Normal bowel sounds no peritoneal signs. Patient is moving all 4 extremities. Neurovascular intact. 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 Calves are nontender without edema. Neurologically she is awake and alert with no focal motor deficits. Test Results: BC normal. Chemistries normal. Troponin normal. EKG sinus bradycardia rate of 46 no acute abnormality. No IN or ischemia. Unchanged from prior EKG from January of last year. Emergency Department Course and Treatment: Patient I think is not feeling well from the multiple highly caffeinated beverages she took in. I will obtain screening labs. Clinically her exam is benign. Treatment Plan: Repeat exam patient is doing well at 00 20 5 AM. Went over all the test results with her she will be discharged to home. She was instructed not to drink highly caffeinated beverages or energy drinks. Disposition: Discharge Impression: General malaise Side effects to caffeine and energy drinks This note was generated with [employer] dictation software. It may contain incorrect words, spelling, and punctuation that were not noted in review of the chart prior to signing ED Disposition - Plan for ED Patient: Referrals: Sam Null MD [Primary Care Provider] -
[2019-12-17 00:10] VITALS: BP 115/64; PULSE 53; RESP 15; O2SAT 100
[2019-12-17 00:18] LABS: Absolute Lymphocyte Count 2.47 X10^3/uL (0.83-4.51); Absolute Neutrophil Count 4.5 X10^3/uL (2.0-7.7); Basophil# 0.04 X10^3/uL; Basophil% 0.5 % (0-1); Eosinophil# 0.19 X10^3/uL; Eosinophils% 2.4 % (0-5); Hematocrit 36.8 % (37-47); Hemoglobin 12.4 g/dL (12.0-15.0); Lymphocyte # 2.47 X10^3/ul (4.0); Lymphocyte % 30.7 % (19-41); Mean Corp Hgb Conc 33.7 g/dL (32-36); Mean Corpuscular Hgb 29.6 pg (27.0-32.0); Mean Corpuscular Volume 87.8 fL (81-99); Monocyte# 0.78 X10^3/uL; Monocyte% 9.7 % (0-10); NRBC Flagged by Analyzer 0 % (0-5); Neutrophil # 4.49 X10^3/uL (2.7-7.7); Neutrophil % 55.7 % (47-70); POSITIVE COUNT YES; Platelet Count 141 K/mm3 (150-450); RBC Distribution Width CV 13.2 % (11.6-14.6); RBC Distribution Width SD 41.7 fl (35.1-43.9); Red Blood Count 4.19 M/mm3 (4.2-5.4); White Blood Count 8.1 K/mm3 (4.4-11.0)
[2019-12-17 00:22] LABS: Anion Gap 4 (5-15); BUN 18 mg/dL (7-18); BUN/Creat Ratio 18.3 RATIO (10-20); Calcium,Total 8.8 mg/dL (8.5-10.1); Chloride 106 mmol/L (98-107); Creatinine, Serum 0.98 mg/dL (0.55-1.02); EST Glomerular Filtration Rate 62 mL/min (>60); Est Glom Filt Rate - Afr Amer 75 mL/min (>60); Estimated Creatinine Clearance 60.72 ml/min; Glucose 86 mg/dL (74-106); Potassium 3.5 mmol/L (3.5-5.1); Sodium Level 140 mmol/L (136-145)
--- NOTE | 2019-12-17 00:26 | ED.DEP ---
ED Disposition - Plan for ED Patient: Disposition: Home or Assisted Living Referrals: Sam Null MD [Primary Care Provider] - 3-5 Days if not improving Additional Instructions: I would strongly encourage you to avoid heavily caffeinated or energy drinks. Follow-up with your doctor if not improving. Return emergency department if feeling a lot worse. Your labs and EKG tonight were unremarkable.
[2019-12-17 00:40] VITALS: BP 109/63; PULSE 51; RESP 15; O2SAT 98
== END 2019-12-17 00:41 | disposition home or self-care (01) ==
PROVIDERS: Emergency Provider Emergency Medicine; PCP Internal Medicine
DX: R53.81 Other malaise (principal); I48.91 Unspecified atrial fibrillation; I10 Essential (primary) hypertension; Z79.82 Long term (current) use of aspirin; Z79.899 Other long term (current) drug therapy
CPT/HCPCS: 80048; 84484; 85025; 93005; 99283

== ENCOUNTER 2020-05-25 20:29 | Emergency (ER) | payer MEDICAID, SELFPAY ==
[2020-05-25 20:29] VITALS: BP 134/97; PULSE 66; RESP 16; TEMP 36.5; O2SAT 100; BMI 43.2
--- NOTE | 2020-05-25 20:49 | EKG12_ITS ---
Test Reason : DYSRYTHMIA Blood Pressure : / mmHG Vent. Rate : 058 BPM Atrial Rate : 058 BPM P-R Int : 198 ms QRS Dur : 098 ms QT Int : 388 ms P-R-T Axes : 038 -16 007 degrees QTc Int : 380 ms Sinus bradycardia Low voltage QRS Borderline ECG Confirmed by JESSE CHILDERS, EDILBERTO ([id number]), energy efficiency finance manager ZACKARY BARNES ([id number]) on 05/28/2020 10:01:32 AM Referred By: KASHIF Confirmed By:EDILBERTO MOLINA MD
--- NOTE | 2020-05-25 20:53 | ED.DCSUM_ITS ---
History of Present Illness Chief Complaint: General Illness Informant: Patient Onset: Weeks Context: Gradual Onset Current Severity: Mild Maximum Severity: Moderate Narrative: Patient presents with not feeling well for the last week to week and a half. She states she had to leave work early last Tuesday night, 2 days ago. She states she did not feel well when she arrived at work. She managed to work for the first 2 hours and then took a break. She said while sitting at break she became very lightheaded as if she might pass out. She told her boss was unable to continue and went home. She states yesterday she slept all day. She presents to the emergency room now saying that she needs know what is wrong because she needs to get back to work. She denies fever or chills. She does re port some nausea as well as diarrhea. She states she always feels cold. No change in mild chronic cough. - Past Medical History (1) Asthma Status: Chronic (2) GERD (gastroesophageal reflux disease) Status: Chronic (3) IBS (irritable bowel syndrome) Status: Chronic (4) 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 apnea Status: Chronic Past Medical History - Allergies and Home Meds Allergies/Adverse Reactions: Allergies No Known Allergies Allergy (Verified 05/25/20 20:32) Primary Care Physician: Sam Null MD [Primary Care Provider] - Prior records reviewed: Yes Surgical History: - - Patient denies any prior surgical history. Smoking Status: Former smoker - Family History Maternal Family History: Family History (Last Reviewed 07/30/19 @ 13:24 by Brittany Anderson NP, MARKETING DEVELOPMENT SPECIALIST-C) Mother Atrial fibrillation CVA (cerebral vascular accident) Diabetes Father Myocardial infarction CAD (coronary artery disease) Sister Pacemaker Family History: Reports: - - Patient notes a maternal family history of stroke, paroxysmal atrial fibrillation, diabetes. Paternal Family History: Family History (Last Reviewed 07/30/19 @ 13:24 by Brittany Anderson NP, MARKETING DEVELOPMENT SPECIALIST-C) Mother Atrial fibrillation CVA (cerebral vascular accident) Diabetes Father Myocardial infarction CAD (coronary artery disease) Sister Pacemaker Family History: Reports: - - Patient notes a paternal family history of coronary artery disease, [place]. Sibling Family History: Family History (Last Reviewed 07/30/19 @ 13:24 by Brittany Anderson NP, MARKETING DEVELOPMENT SPECIALIST-C) Mother Atrial fibrillation CVA (cerebral vascular accident) Diabetes Father Myocardial infarction CAD (coronary artery disease) Sister Pacemaker Family History: Reports: - - Patient has a sister with cardiac disease, status post pacemaker status. Review of Systems General: Reports: Chills. Denies: Fever Eyes: Denies: Visual changes - bilaterally ENT: Denies: Bilateral ear pain Cardiovascular: Denies: Chest pain Respiratory: Reports: Cough - Chronic cough, unchanged from baseline. Denies: Dyspnea Gastrointestinal: Reports: Nausea, Diarrhea. Denies: Abdominal pain, Vomiting Genitourinary: Denies: Dysuria, Frequency Musculoskeletal: Reports: Neck pain, Back pain. Denies: Extremity Pain Skin: Denies: Rash Neurological: Denies: Headache Psych: Denies: Depression Hematologic: Denies: Easy bruising, Easy bleeding Allergy: Denies: Uticaria Physical Exam Vital Signs/Narrative: Vital Signs Temp Pulse Resp BP Pulse Ox 05/25/20 20:29 97.7 F L 66 16 134/97 H 100 Inital Vital Signs reviewed: Yes General: Well nourished, Well developed Head: Normocephalic Eyes: Perrl, EOMI Cardiovascular: Regular rate, Regular rhythm Respiratory: No distress, CTA bilaterally Abdomen: Soft, Nontender, Normal bowel sounds Back: - - Tenderness over the upper back near the cervical/thoracic junction. No overlying skin changes. Skin: Normal color Neurological: Alert, Oriented x3, Normal Strength, Normal Sensation Psychological: Normal affect Diagnostic/Tx/Re-eval 05/25/20 21:30 Mucosa - Nose SARS-CoV-2 Antigen (Rapid) - Final Laboratory Results 05/25/20 05/25/20 05/25/20 21:14 21:14 22:23 WBC 7.7 RBC 4.64 Hgb 13.3 Hct 41.0 MCV 88.4 MCH 28.7 MCHC 32.4 RDW Std Deviation 43.3 RDW Coeff of Collin 13.4 Plt Count 174 MPV 11.3 Immature Gran % (Auto) 0.100 Neut % (Auto) 57.6 Lymph % (Auto) 29.8 [place] % (Auto) 9.2 Eos % (Auto) 3.0 Baso % (Auto) 0.3 Absolute Neuts (auto) 4.5 Absolute Lymphs (auto) 2.30 Nucleated RBC % 0 Sodium 139 Potassium 3.6 Chloride 104 Carbon Dioxide 30.0 Anion Gap 5 BUN 11 Creatinine 0.96 Estim Creat Clear Calc 58.88 Est GFR (MDRD) Af Amer 78 Est GFR (MDRD) Non-Af 64 BUN/Creatinine Ratio 11.5 Glucose 85 Calcium 9.1 Troponin I < 0.015 Urine Color Yellow Urine Clarity Clear Urine pH 6.0 Ur Specific [place] 1.015 Urine Protein Negative Urine Glucose (UA) Normal Urine Ketones Negative Urine Occult Blood Negative Urine Nitrite Negative Urine Bilirubin Negative Urine Urobilinogen Normal Ur Leukocyte Esterase Negative Urine RBC 0 SEEN Urine WBC 0 SEEN Ur Squamous Epith Cells 0-5 SEEN Urine Bacteria 0 SEEN Urine Mucus 0 SEEN - EKG Initial EKG Interpretation: Sinus Bradycardia - Sinus bradycardia at [address] change. - Medical Decision Making Patient was given a liter IV fluids along with Toradol and Zofran. CBC, chemistry studies are all normal. Urinalysis is normal. EKG is sinus bradycardia with no acute ischemia. Covid test is negative. Test results discussed with the patient. She raises concern about swelling in her legs. I advised her to wear compression socks that extend up to her knees while she is at work on her feet. She is also advised to follow with her mountain guide about adjustments in her diuretics. ED Disposition - Plan for ED Patient: Disposition: Home or Assisted Living Diagnosis: Viral gastroenteritis Instructions: ED Diarrhea, Viral (Adult), ED Dehydration (Adult) Referrals: Sam Null MD [Primary Care Provider] - 1 Week Additional Instructions: Follow-up with your mountain guide as discussed regarding your water pills.
[2020-05-25] MEDS: Ketorolac 30 MG/ML Syringe IV (21:15)
[2020-05-25] MEDS: Ondansetron 4 MG/2 ML Vial IV (21:15)
[2020-05-25] MEDS: 0.9% Normal Saline 1,000 ML 1000 ML IV (21:16)
[2020-05-25 21:28] VITALS: BP 107/74; PULSE 51; RESP 16; O2SAT 100
[2020-05-25 21:47] LABS: Absolute Neutrophil Count 4.5 X10^3/uL (2.0-7.7); Basophil# 0.02 X10^3/uL; Basophil% 0.3 % (0-1); Eosinophil# 0.23 X10^3/uL; Hemoglobin 13.3 g/dL (12.0-15.0); Lymphocyte % 29.8 % (19-41); Mean Corp Hgb Conc 32.4 g/dL (32-36); Mean Corpuscular Hgb 28.7 pg (27.0-32.0); Mean Corpuscular Volume 88.4 fL (81-99); Mean Platelet Vol. 11.3 fl (6.2-12.0); Monocyte# 0.71 X10^3/uL; Monocyte% 9.2 % (0-10); NRBC Flagged by Analyzer 0 % (0-5); Neutrophil # 4.46 X10^3/uL (2.7-7.7); Neutrophil % 57.6 % (47-70); Platelet Count 174 K/mm3 (150-450); RBC Distribution Width CV 13.4 % (11.6-14.6); RBC Distribution Width SD 43.3 fl (35.1-43.9); Red Blood Count 4.64 M/mm3 (4.2-5.4); White Blood Count 7.7 K/mm3 (4.4-11.0)
[2020-05-25 21:58] LABS: Anion Gap 5 (5-15); BUN 11 mg/dL (7-18); BUN/Creat Ratio 11.5 RATIO (10-20); Calcium,Total 9.1 mg/dL (8.5-10.1); Chloride 104 mmol/L (98-107); Creatinine, Serum 0.96 mg/dL (0.55-1.02); EST Glomerular Filtration Rate 64 mL/min (>60); Est Glom Filt Rate - Afr Amer 78 mL/min (>60); Estimated Creatinine Clearance 58.88 ml/min; Glucose 85 mg/dL (74-106); Potassium 3.6 mmol/L (3.5-5.1); Sodium Level 139 mmol/L (136-145)
[2020-05-25 22:29] LABS: Bacteria 0 SEEN /hpf (None Seen); Mucous, Urine 0 SEEN /hpf (<or=2+); Red Blood Cells-Urine 0 SEEN /hpf (0-5); White Blood Cells 0 SEEN /hpf (0-5)
[2020-05-25 22:34] LABS: Color, Urine Yellow (Yellow); Glucose, Dipstick Normal (Normal); Ketone-Dipstick Negative (Negative); Leukocyte Esterase-Dipstick Negative /ul (Negative); Nitrite-Dipstick Negative (Negative); Occult Blood-Urine Negative /ul (Negative); Protein-Dipstick Negative (Negative); Specific Gravity, Urine 1.015 (1.002-1.030); Urine Bilirubin Dipstick Negative (Negative); Urine Clarity Clear (Clear); Urine Urobilinogen Normal (Normal)
[2020-05-25 22:45] LABS: Squamous Epithelial Cells - UA 0-5 SEEN /hpf (5-10)
[2020-05-25 23:09] VITALS: BP 100/68; PULSE 71; RESP 18; O2SAT 98
== END 2020-05-25 23:10 | disposition home or self-care (01) ==
PROVIDERS: Emergency Provider Emergency Medicine; PCP Internal Medicine
DX: A08.4 Viral intestinal infection, unspecified (principal); R42 Dizziness and giddiness; Z20.822 Contact with and (suspected) exposure to COVID-19; J45.909 Unspecified asthma, uncomplicated; K58.9 Irritable bowel syndrome, unspecified; G47.33 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 apnea (adult) (pediatric); K21.9 Gastro-esophageal reflux disease without esophagitis; Z79.82 Long term (current) use of aspirin; Z79.899 Other long term (current) drug therapy; Z87.891 Personal history of nicotine dependence
CPT/HCPCS: 80048; 81001; 84484; 85025; 87426; 93005; 96361; 96374; 96375; 99284; J7030; A4216; J2405

== ENCOUNTER → 2020-05-27 14:16 | Outpatient (CLI) | payer MEDICAID, SELFPAY ==
[2020-05-25 20:29] VITALS: BMI 43.2
[2020-05-27 15:50] LABS: BNP,B-Type NATRIURETIC PEPTIDE 29.7 pg/mL (0-100)
[2020-05-27 16:18] LABS: AST(SGOT) 14 U/L (15-37); Alanine Aminotransfer ALT/SGPT 22 U/L (13-56); Albumin, Serum 3.8 g/dL (3.2-5.0); Alkaline Phosphatase 142 U/L (45-117); Amylase 63 U/L (25-115); Bilirubin, Direct 0.14 mg/dL (0.00-0.30); Cholesterol 126 mg/dL (200); Globulin 4.1 g/dL (2.2-4.2); High Density Lipoprotein 51 mg/dL; Lipase 53 U/L (73-393); Protein, Total 7.9 g/dL (6.4-8.2); T4 Total, Thyroxin 11.6 ug/dL (4.8-13.9); Thyroid Stim Hormone (TSH) 3.46 uIU/mL (0.358-3.74); Triglycerides 69 mg/dL; Very Low Density Lipoprotein 14 mg/dL (5-40)
== END ==
PROVIDERS: PCP Internal Medicine; Referring Provider Nurse Practitioner Family; Visit Provider Nurse Practitioner Family
DX: R10.11 Right upper quadrant pain (principal); R10.13 Epigastric pain; E78.5 Hyperlipidemia, unspecified; E03.9 Hypothyroidism, unspecified; R53.83 Other fatigue; M54.9 Dorsalgia, unspecified; R60.9 Edema, unspecified; R06.02 Shortness of breath; R05 Cough
CPT/HCPCS: 36415; 80061; 80076; 82150; 83690; 83880; 84436; 84443

== ENCOUNTER → 2020-06-12 11:29 | Outpatient (CLI) | payer MEDICAID, SELFPAY ==
[2020-05-28 11:44] VITALS: BMI 39.6
--- NOTE | 2020-06-12 11:32 | US_ITS ---
STUDY: ABDOMINAL ULTRASOUND - RIGHT UPPER QUADRANT REASON FOR VISIT: Female, 55 years old abdominal pain, back pain, Hx gallbladder concerns TECHNIQUE: Ultrasound evaluation of the right upper quadrant was performed with real-time and static green-scale imaging. TECHNICAL QUALITY: Limited. Examination limited due to a combination of factors including obesity and bowel gas. COMPARISON: None. FINDINGS: Liver: The liver measures 14.4 cm. There is increased echogenicity consistent with fatty infiltration. The bile ducts are within normal limits. There is hepatic color flow. The direction of portal flow is hepatopetal. There is no demonstrated mass lesion. Gallbladder: Normal distended gallbladder. The gallbladder wall measures 2 mm. There is a positive sonographic Cervantes''s sign. There is no pericholecystic fluid. There is a solitary echogenic gallstone within the gallbladder. This measures 1.4 cm and 1.7 cm. The stone is in the neck of the gallbladder. Common Bile Duct (C.B.D.): The common bile duct measures 3 mm. Pancreas: Normal size of the head, body and tail of the pancreas. There is normal echogenicity of the pancreas. There is no demonstrated pancreatic mass or cyst. Right Kidney: There is atrophy of the right kidney. The right kidney measures 8.8 cm x 4.2 cm x 3.2 cm. There is thinning of the renal cortex. The right cortex measures 0.7 cm. There is no demonstrated renal mass or cyst. There is no right hydronephrosis. US/Gallbladder IMPRESSION: Fatty infiltration of the liver. Solitary gallstone. The gallstone is in the neck of the gallbladder. Electronically Signed: Antoine Woods MD at 10:18 EDT , Service support ,
== END ==
PROVIDERS: PCP Internal Medicine; Referring Provider Nurse Practitioner Family; Visit Provider Nurse Practitioner Family
DX: R00.2 Palpitations (principal); K82.9 Disease of gallbladder, unspecified; M54.9 Dorsalgia, unspecified
CPT/HCPCS: 76705; 93225; 93226

== ENCOUNTER 2020-07-17 06:04 | Day surgery (SDC) | payer MEDICAID, SELFPAY ==
[2020-06-30 13:45] VITALS: BMI 40.2
--- NOTE | 2020-07-17 | COLBX_PTH ---
PATIENT: JOELLEN GANT LOC: EN U#:[id number] AGE/SX: 55/F ROOM: RE07/17/[address]: Dr. Manoj Escalante MD : [id number] BED: DIS: 07/17/2020 SPEC #: [id number] RECD: 07/17/20 07:44 STATUS: NILESH KAMARA #: [id number] BLADIMIR: 07/17/20 00:[address]: Manoj Escalante DEPT: SURGICAL PATHOLOGY RECD BY: Reynaldo Franco ENTERED: 07/17/20 08:45 SP TYPE: COLON BX OTHR DR: Dr. Sam Null MD Tissues: A - Duodenum, NOS B - Gastric mucous membrane C - Esophageal mucous membrane D - Esophageal mucous membrane Procedures: Surgery Specimen Level IV HEADER OPERATION: Colonoscopy, EGD ([facility] [place]) PRE-OP DIAGNOSIS: RUQ abdominal pain TISSUE SUBMITTED: A - Duodenum biopsy, B - Antrum biopsy for H. pylori and path, C - Distal esophagus biopsy, D - Mid transverse polyp biopsy MICROSCOPIC DIAGNOSIS A. Duodenum, biopsy: A fragment of small intestinal mucosa, no pathologic diagnosis. B. Antrum, biopsy: Mild gastritis. See microscopic description and comment. C. Distal esophagus, biopsy: A fragment of squamous epithelium, no pathologic diagnosis. D. Mid transverse polyp, biopsy: Tubular adenoma. SJ:rg 07/18/2020 COMMENT B. The results of immunohistochemistry for Helicobacter pylori will be reported separately ([id number]). MICROSCOPIC DESCRIPTION Slides are reviewed. B. The specimen shows fragments of gastric mucosa with chronic inflammatory cell infiltrates in the lamina propria consisting of lymphocytes and plasma cells, consistent with mild chronic gastritis. GROSS DESCRIPTION A - Received in fixative is one container labeled with the patient's name and designated duodenum biopsy. The specimen consists of one irregular fragment of light gonzalez soft tissue that measures 0.4 x 0.3 x 0.1 cm. The specimen is totally submitted in one cassette. B - Received in fixative is one container labeled with the patient's name and designated antrum biopsy. The specimen consists of one irregular fragment of light gonzalez soft tissue that measures 0.4 x 0.3 x 0.1 cm. The specimen is totally submitted in one cassette. C - Received in fixative is one container labeled with the patient's name and designated distal esophagus biopsy. The specimen consists of one irregular fragment of light gonzalez soft tissue that measures 0.3 x 0.2 x 0.1 cm. The specimen is totally submitted in one cassette. D - Received in fixative is one container labeled with the patient's name and designated mid transverse polyp biopsy. The specimen consists of one irregular fragment of light gonzalez soft tissue that measures 0.4 x 0.3 x 0.1 cm. The specimen is totally submitted in one cassette. / SJ:rg 07/17/20 TC:1 CPT: 16543 x4
--- NOTE | 2020-07-17 06:15 | HP.PCM_ITS ---
History and Physical Date of Admission: 07/17/20 Intake Visit Reasons: Gall Stones Chief Complaint: gallstones Missile Inspector Preflight Required: No Is patient in pain?: Yes (abdomen) Allergies No Known Allergies Allergy (Verified 06/30/20 13:45) Medications hydrocortisone 2.5 % topical cream 1 applic TOPICAL BID 12/13/18 [History Confirmed 06/30/20] Nitroglycerin (INPATIENT USE) [Nitrostat] 0.4 mg SL Q5M PRN #10 tab.subl 01/23/19 [Rx Confirmed 06/30/20] albuterol sulfate 90 mcg/actuation aerosol inhaler 2 puff INHALATION Q4H PRN #18 g 02/13/19 [Rx Confirmed 06/30/20] fluticasone propionate 50 mcg/actuation nasal spray,suspension 2 spray INTRANASAL DAILY #9.9 g 09/10/19 [Rx Confirmed 06/30/20] fluticasone propionate 110 mcg/actuation HFA aerosol inhaler 2 puff INHALATION BID #12 g 09/17/19 [Rx Confirmed 06/30/20] atorvastatin 20 mg tablet 20 mg PO DAILY #90 tab 02/16/20 [Rx Confirmed 06/30/20] omeprazole 20 mg capsule,delayed release 20 mg PO DAILY #90 cap 02/16/20 [Rx Confirmed 06/30/20] aspirin 81 mg tablet,delayed release 81 mg PO DAILY@0800 #90 tab 02/18/20 [Rx Confirmed 06/30/20] potassium chloride 10 mEq capsule,extended release 10 meq PO DAILY #30 cap 03/18/20 [Rx Confirmed 06/30/20] carvedilol 3.125 mg tablet 3.125 mg PO BID #60 tab 05/28/20 [Rx Confirmed 06/30/20] furosemide 20 mg tablet 40 mg PO DAILY #30 tab 05/28/20 [Rx Confirmed 06/30/20] [facility] Medical History Pain due to vascular prosthetic devices, implants and grafts, sequela (Acute) RUQ abdominal pain (Resolved) Mid back pain (Resolved) Bradycardia (Chronic) Palpitations (Inactive) Hair loss (Inactive) Fatigue (Inactive) Hypersomnia (Chronic) 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 apnea (Chronic) needs gallbladder out (Chronic) Chest pain (Chronic) Edema (Chronic) History of syncope (Chronic ~1999) Asthma (Chronic) Low back pain (Chronic) IBS (irritable bowel syndrome) (Chronic) GERD (gastroesophageal reflux disease) (Chronic) Bilateral carpal tunnel syndrome (Chronic) Surgical History History of right and left heart catheterization (Resolved 01/23/19) Family History Mother Atrial fibrillation CVA (cerebral vascular accident) Diabetes Father Myocardial infarction CAD (coronary artery disease) Sister Pacemaker Social History (Updated 06/30/20 @ 14:[address] Manoj Escalante MD) Smoking Status: Former smoker quit date: 05/30/09 pack-years: 15 alcohol intake: never HPI HPI HPI: JOELLEN GANT, is a 55 F who presents to the office today for surgical consultation regarding a variety of issues. She complains that her gallbladder is malfunction for multiple years. She states that previously it was strongly recommended to her that she have it removed. She notes that she will have generalized abdominal pain. She right upper quadrant pain. More partly however she goes on to state that she will have dizzy spells and syncopal spells. She states that she is been encouraged by other physicians to seek remove her gallbladder to help resolve these issues. On June 12, [address] [facility] she had a gallbladder ultrasound. Fatty change of the liver. There is a solitary gallstone 1.4 x 1.7 cm in the neck of the gallbladder. The common bile duct is 3 mm. The patient by report has had a cardiac catheterization as well as a Holter monitor. To my understanding no acute events identified. As of May 27, 2020 albumin was 3.8 amylase 63 lipase 53 AST 14 alkaline phosphatase 142 ALT 22. TSH was 3.46. October 08, 2019 the patient had a chest CT with contrast. No acute findings. The patient was previously seen by Dr. Reginald Bateman November 01, 2019. She had atypical nonexertional chest pain. It was felt that she probably had gallbladder disease and it was stated that she would be referred to me at that time for her gallbladder. The patient elected not to make that referral at the time. She now accomplishes that communication The patient is referred by her primary care physician Dr. Sam Null and a written compromise surgical consult recommendations will be returned to him [facility] [address] [place] [address] Gallbladder MR#: [id number]:[id number] Name: JOELLEN GANT #:[id number] : 1965F 55 From: Antoine Woods MD PCP:Dr. Sam Null MD Status:REG CLI Study:Gallbladder Date of Exam:06/12/20 Exam#[id number] Ordering Dr: Porfirio Jeff NP BASEBALL PLAYER-C STUDY: ABDOMINAL ULTRASOUND - RIGHT UPPER QUADRANT REASON FOR VISIT: Female, 55 years old abdominal pain, back pain, Hx gallbladder concerns TECHNIQUE: Ultrasound evaluation of the right upper quadrant was performed with real-time and static green-scale imaging. TECHNICAL QUALITY: Limited. Examination limited due to a combination of factors including obesity and bowel gas. COMPARISON: None. FINDINGS: Liver: The liver measures 14.4 cm. There is increased echogenicity consistent with fatty infiltration. The bile ducts are within normal limits. There is hepatic color flow. The direction of portal flow is hepatopetal. There is no demonstrated mass lesion. Gallbladder: Normal distended gallbladder. The gallbladder wall measures 2 mm. There is a positive sonographic Cervantes''s sign. There is no pericholecystic fluid. There is a solitary echogenic gallstone within the gallbladder. This measures 1.4 cm and 1.7 cm. The stone is in the neck of the gallbladder. Common Bile Duct (C.B.D.): The common bile duct measures 3 mm. Pancreas: Normal size of the head, body and tail of the pancreas. There is normal echogenicity of the pancreas. There is no demonstrated pancreatic mass or cyst. Right Kidney: There is atrophy of the right kidney. The right kidney measures 8.8 cm x 4.2 cm x 3.2 cm. There is thinning of the renal cortex. The right cortex measures 0.7 cm. There is no demonstrated renal mass or cyst. There is no right hydronephrosis. US/Gallbladder IMPRESSION: Fatty infiltration of the liver. Solitary gallstone. The gallstone is in the neck of the gallbladder. Electronically Signed: Antoine Woods MD at 10:18 EDT , Service support , HPI HPI HPI: JOELLEN GANT, is a 55 F who presents to the office today for ROS General General: Yes weight change; no appetite, fatigue, colon cancer, breast cancer or weakness HEENT HEENT: No difficulty swallowing, eye injury, eye surgery, swollen glands or hoarseness Endo Endocrine: Yes diabetes mellitus; no thyroid disease, thyroid cancer, Hair loss, heat intolerance or cold intolerance Skin Skin: Yes rash; no changing moles Breast Breast: No left breast lump, right breast lump, nipple discharge, breast pain, abnormal mammogram, abnormal US or breast enlargement Musc Musculoskeletal: Yes back problems; no arthritis, rheumatoid arthritis, gout or joint pain Cardio Cardiovascular: Yes heart disease and high blood pressure; no murmur, pacemaker, atrial fibrillation, heart attack, heart stent, palpitations, shortness of breat with exertion or chest pain Psych Psychiatric: No depression, anxiety or hearing voices Resp Respiratory: No shortness of breath, No sleep apnea, No cough, No COPD, Yes asthma, No emphysema, No wheezing Gastro Gastrointestinal: Yes abdominal pain, Yes nausea or vomiting, Yes diarrhea, Yes constipation, No blood in stool, Yes acid reflux, No hemorrhoids, No ulcers, Yes gallbladder problem, No black,tarry stools Ishan Hematologic: No blood thinners, No blood disorders, No bleeding, No anemia, No blood clots Neuro Neurologic: No system reviewed and no additional complaints, except as docu, No as per HPI, No abnormal walking, No abnormal hearing, No abnormal movements, No abnormal speech, No behavioral changes, No burning sensations, No confusion, No seizure-like activity, No unsteadiness, No dizziness, No localized weakness, No frequent falls, No headache(s), No lack of coordination, No loss of vision, No memory loss, No numbness, No other visual disturbances, No radiating pain, No restless legs, No sensory deficit, No fainting, No tingling, No tremor(s), No weakness, No other Exam Const General: comfortable, no acute distress Nutritional Appearance: obese Orientation: alert, awake HENMT Head: normal to inspection Eyes General: appearance normal, both eyes and all related structures Neck Neck: normal visual inspection Chest Breast Palpation: No nipple discharge Resp Effort & Inspection: normal respiratory effort Auscultation: clear to auscultation bilaterally Cardio Rate: regular rate Rhythm: regular rhythm Heart Sounds: no murmurs GI Palpation: soft, no hepatosplenomegaly Auscultation: normal bowel sounds Other: Mild diffuse tenderness to even superficial palpation. No focal mass. No rebound. No guarding. Musc Cervical Spine: normal cervical lordosis Skin General: no rashes or lesions noted Neuro Cognition: normal cognition Extrem General: no calf tenderness Psych Affect: labile affect Assessment & Plan Problems 1. RUQ abdominal pain R10.11 2. Generalized abdominal pain R10.84 3. Calculus of gallbladder with chronic cholecystitis without obstruction K80.10 Plan Patient is somewhat difficult to keep on target. She complains of some intermittent dark almost black stools. She complains of a change of bowel habits with stringy small caliber stools. She cannot remember whether she has ever had a colonoscopy. She states that she has previously had stomach ulcers. With the nonspecific presentation I recommend to her a combined upper and lower endoscopy with possible biopsy or polypectomy as indicated. She is aware of the technique, benefit, risk, alternatives. I need to exclude the possibility of active peptic ulcer disease or occult colonic process. If that is unremarkable then I recommend proceeding with a laparoscopic cholecystectomy with selective cholangiography. She has had an opportunity to ask and have questions answered. I have been incredibly clear with the patient that I do not suspect that a cholecystectomy will improve or resolve dizziness or syncope. I am hopeful that we can resolve her generalized abdominal pain right upper quadrant pain and back pain. However she also is aware that the cholecystectomy may not resolve those issues as well. She has had an opportunity to ask and have questions answered. She is very adamant that she would like to proceed with definitive management at this time. It appears that she has had previous cardiac work-up which was unremarkable for atypical chest pain. It seems reasonable pursue the cholecystectomy in light of the gallstone within the gallbladder neck. I appreciate the opportunity of assisting with her surgical care Copy: Dr. Sam Escalante M.D., F.A.C.S. Coding Level of Care Code 88642 Diagnoses RUQ abdominal pain R10.11 Generalized abdominal pain R10.84 Calculus of gallbladder with chronic cholecystitis without obstruction K80.10 Cholelithiasis location: gallbladder Biliary obstruction: without biliary obstruction The patient was previously scheduled for this endoscopic procedure. Apparently there was problems with the bowel prep. She is now rescheduled. Plan for a esophagogastroduodenoscopy with possible biopsy and colonoscopy with possible biopsy or polypectomy today to help evaluate for abdominal pain. She is aware of the technique, benefit, risk, alternatives. If this examination is not remarkable then anticipate proceeding on with a laparoscopic cholecystectomy with selective cholangiography. That also is scheduled for the very near future. Manoj Escalante M.D., F.A.C.S.
[2020-07-17 06:29] VITALS: BP 117/74; PULSE 52; RESP 16; TEMP 36.8; O2SAT 100; BMI 40.7
[2020-07-17] MEDS: Lactated Ringers 1,000 ML 100 ML IV (06:43)
--- NOTE | 2020-07-17 07:00 | IMM_PTH ---
PATIENT: JOELLEN GANT LOC: [facility] U#:[id number] AGE/SX: 55/F ROOM: RE07/17/[address]: Dr. Manoj Escalante MD : 1965 BED: DIS: 07/17/2020 SPEC #: [id number] RECD: 07/17/20 09:35 STATUS: NILESH ANH #: [id number] BLADIMIR: 07/17/20 07:[address]: Manoj Escalante DEPT: IMMUNOHISTOCHEMISTRY RECD BY: Jeanine Lehman ENTERED: 07/17/20 09:35 SP TYPE: IMMUNO OTHR DR: Dr. Sam Null MD Tissues: B - Stomach, NOS Procedures: H Pylori (initial) PHYSICIAN & INSTITUTION [place] [address] SPECIMEN INFORMATION: Tissue Source: B ? Antrum biopsy Clinical Info: RUQ abdominal pain Specimen Number: [id number] CPT code: 22577 METHODOLOGY: Deparaffinized sections of prefer/formalin-fixed tissue or PAP/DQ stained slides are incubated with monoclonal/polyclonal antibodies/oligonucleotide probes. Localization is made via biotin free immunoperoxidase method. Appropriate controls are performed and reacted as expected. Results on target cell population are indicated in the following table: RESULTS: ANTIBODY / CLONE RESULT Block B H Pylori (polyclonal) negative These tests were developed and their performance characteristics determined by [facility]. They may not have been cleared or approved by the U.S. Food and Drug Administration. The FDA has determined that such clearance or approval is not necessary. INTERPRETATION: B. Antrum biopsy: Negative for Helicobacter pylori organisms. SJ:petrona 07/18/2020
[2020-07-17 07:37] VITALS: BP 117/74; BP 92/43; PULSE 72; RESP 16; TEMP 36.3; O2SAT 95
--- NOTE | 2020-07-17 07:37 | OP.EGD_ITS ---
Patient Name: Theodora Prater Procedure Date: 07/17/2020 7:00 AM Date of : 1965 Age: 55 Procedure: Upper GI endoscopy Indications: Epigastric abdominal pain, Suspected esophageal reflux Providers: Manoj Escalante MD Referring MD: Sam Null Medicines: See the Anesthesia note for documentation of the administered medications Complications: No immediate complications. Procedure: Pre-Anesthesia Assessment: - Prior to the procedure, a History and Physical was performed, and patient medications and allergies were reviewed. The patient's tolerance of previous anesthesia was also reviewed. The risks and benefits of the procedure and the sedation options and risks were discussed with the patient. All questions were answered, and informed consent was obtained. Prior Anticoagulants: The patient has taken aspirin, last dose was 1 day prior to procedure. ASA Grade Assessment: III - A patient with severe systemic disease. After reviewing the risks and benefits, the patient was deemed in satisfactory condition to undergo the procedure. After obtaining informed consent, the endoscope was passed under direct vision. Throughout the procedure, the patient's blood pressure, pulse, and oxygen saturations were monitored continuously. The gastroscope was introduced through the mouth, and advanced to the second part of duodenum. The upper GI endoscopy was accomplished without difficulty. The patient tolerated the procedure well. Scope In: 7:09:12 AM Scope Out: 7:15:56 AM Total Procedure Duration Time 0 hours 6 minutes 44 seconds Findings: The examined esophagus was normal. Biopsies were taken with a cold forceps for histology. A medium-sized hiatal hernia was present. The Z-line was regular and was found 35 cm from the incisors. Diffuse mildly erythematous mucosa without bleeding was found in the gastric antrum. Biopsies were taken with a cold forceps for histology. The examined duodenum was normal. Biopsies were taken with a cold forceps for histology. Impression: - Normal esophagus. Biopsied. - Medium-sized hiatal hernia. - Z-line regular, 35 cm from the incisors. - Erythematous mucosa in the antrum. Biopsied. - Normal examined duodenum. Biopsied. Recommendation: - Discharge patient to home. - Resume previous diet. - Continue present medications. - Telephone my office for pathology results in 1 week. Procedure Code(s): --- Professional --- 99079, Esophagogastroduodenoscopy, flexible, transoral; with biopsy, single or multiple Diagnosis Code(s): --- Professional --- K44.9, Diaphragmatic hernia without obstruction or gangrene K31.89, Other diseases of stomach and duodenum R10.13, Epigastric pain CPT copyright 2017 [employer]. All rights reserved. The codes documented in this report are preliminary and upon banbury mixer operator review may be revised to meet current compliance requirements. Manoj Escalante MD 07/17/2020 7:36:45 AM This report has been signed electronically. Number of Addenda: 0 Note Initiated On: 07/17/2020 7:00 AM
--- NOTE | 2020-07-17 07:37 | OP.CCLET_ITS ---
07/17/2020 Sam Null [address] [place] [address] Re : Upper GI endoscopy procedure for Theodora Prater Dear Dr. Null This procedure was performed on July. My impressions and recommendations are as follows: Impressions : - Normal esophagus. Biopsied. - Medium-sized hiatal hernia. - Z-line regular, 35 cm from the incisors. - Erythematous mucosa in the antrum. Biopsied. - Normal examined duodenum. Biopsied. Recommendations : - Discharge patient to home. - Resume previous diet. - Continue present medications. - Telephone my office for pathology results in 1 week. My findings are described in the full procedure note, which is enclosed. If I can be of further assistance, please feel free to contact me at Doctor phone number(s): Work: . Sincerely, Manoj Escalante MD 07/17/2020 7:36:45 AM This report has been signed electronically.
--- NOTE | 2020-07-17 07:39 | OP.CCLET_ITS ---
07/17/2020 Sam Null [address] [place] [address] Re : Colonoscopy procedure for Theodora Prater Dear Dr. Null This procedure was performed on July. My impressions and recommendations are as follows: Impressions : - Hemorrhoids found on perianal exam. - One 5 mm polyp in the mid transverse colon, removed with a cold biopsy forceps. Resected and retrieved. - The examination was otherwise normal. Recommendations : - Discharge patient to home. - Resume previous diet. - Continue present medications. - Telephone my office for pathology results in 1 week. - Repeat colonoscopy in 5 years for surveillance. My findings are described in the full procedure note, which is enclosed. If I can be of further assistance, please feel free to contact me at Doctor phone number(s): Work: . Sincerely, Manoj Escalante MD 07/17/2020 7:39:05 AM This report has been signed electronically.
--- NOTE | 2020-07-17 07:39 | OP.COLON_ITS ---
Patient Name: Theodora Prater Procedure Date: 07/17/2020 7:16 AM Date of : 1965 Age: 55 Procedure: Colonoscopy Indications: Screening for colorectal malignant neoplasm Providers: Manoj Escalante MD Referring MD: Sam Null Medicines: See the Anesthesia note for documentation of the administered medications Patient Profile: Last Colonoscopy: none. The patient's first colonoscopy is today. Complications: No immediate complications. Procedure: Pre-Anesthesia Assessment: - Prior to the procedure, a History and Physical was performed, and patient medications and allergies were reviewed. The patient's tolerance of previous anesthesia was also reviewed. The risks and benefits of the procedure and the sedation options and risks were discussed with the patient. All questions were answered, and informed consent was obtained. Prior Anticoagulants: The patient has taken aspirin, last dose was 1 day prior to procedure. ASA Grade Assessment: III - A patient with severe systemic disease. After reviewing the risks and benefits, the patient was deemed in satisfactory condition to undergo the procedure. After I obtained informed consent, the scope was passed under direct vision. Throughout the procedure, the patient's blood pressure, pulse, and oxygen saturations were monitored continuously. The colonoscope was introduced through the anus and advanced to the cecum, identified by appendiceal orifice and ileocecal valve. The colonoscopy was somewhat difficult due to the patient's body habitus. Successful completion of the procedure was aided by applying abdominal pressure. The patient tolerated the procedure well. The quality of the bowel preparation was good. The ileocecal valve and the appendiceal orifice were photographed. Scope In: 7:18:51 AM Scope Withdrawal Time 0 hours 7 minutes 18 seconds Scope Out: 7:31:43 AM Total Procedure Duration Time 0 hours 12 minutes 52 seconds Findings: Hemorrhoids were found on perianal exam. A 5 mm polyp was found in the mid transverse colon. The polyp was sessile. The polyp was removed with a cold biopsy forceps. Resection and retrieval were complete. The exam was otherwise without abnormality. Impression: - Hemorrhoids found on perianal exam. - One 5 mm polyp in the mid transverse colon, removed with a cold biopsy forceps. Resected and retrieved. - The examination was otherwise normal. Recommendation: - Discharge patient to home. - Resume previous diet. - Continue present medications. - Telephone my office for pathology results in 1 week. - Repeat colonoscopy in 5 years for surveillance. Procedure Code(s): --- Professional --- 54699, Colonoscopy, flexible; with biopsy, single or multiple Diagnosis Code(s): --- Professional --- Z12.11, Encounter for screening for malignant neoplasm of colon K64.9, Unspecified hemorrhoids D12.3, Benign neoplasm of transverse colon (hepatic flexure or splenic flexure) CPT copyright 2017 [employer]. All rights reserved. The codes documented in this report are preliminary and upon medical billing coder review may be revised to meet current compliance requirements. Manoj Escalante MD 07/17/2020 7:39:05 AM This report has been signed electronically. Number of Addenda: 0 Note Initiated On: 07/17/2020 7:16 AM
[2020-07-17 07:42] VITALS: BP 117/74; BP 78/47; PULSE 69; RESP 16; O2SAT 96
[2020-07-17 07:47] VITALS: BP 106/61; BP 117/74; PULSE 68; RESP 16; O2SAT 98
[2020-07-17 07:52] VITALS: BP 111/65; BP 117/74; PULSE 68; RESP 16; TEMP 36.2; O2SAT 99
[2020-07-17 08:34] VITALS: BP 117/74
--- NOTE | 2020-07-17 09:12 | SUR.PHASEII ---
Patient discharged from Phase 2 after a long phase 2., She was waiting for her ride. VSS. Discharge instructions reviewed with patient, twice. Patient required more attention than normal. No issues arose.Daughter at bedside and also understands instructions and plan for discharge.
== END 2020-07-17 09:14 ==
LOC: EN 06:04 → AC 06:06
PROVIDERS: PCP Internal Medicine; Referring Provider Internal Medicine; Visit Provider Surgery
PROC: 0DJD8ZZ Inspection of Lower Intestinal Tract, Via Natural or Artificial Opening Endoscopic (ICD-10-PCS; CPT 45378; principal; 2020-07-17 06:55)
DX: Z12.11 Encounter for screening for malignant neoplasm of colon (principal); D12.3 Benign neoplasm of transverse colon; K29.50 Unspecified chronic gastritis without bleeding; K44.9 Diaphragmatic hernia without obstruction or gangrene; K80.10 Calculus of gallbladder with chronic cholecystitis without obstruction; K31.89 Other diseases of stomach and duodenum; K64.9 Unspecified hemorrhoids; Z79.82 Long term (current) use of aspirin; Z79.899 Other long term (current) drug therapy; Z87.11 Personal history of peptic ulcer disease; Z87.891 Personal history of nicotine dependence
CPT/HCPCS: 43239; 45378; 88305; 88342; J7120; J2405

== ENCOUNTER 2020-07-22 09:18 | Day surgery (SDC) | payer MEDICAID, SELFPAY ==
[2020-06-30 13:45] VITALS: BMI 40.2
--- NOTE | 2020-07-16 11:44 | EKG12_ITS ---
Test Reason : PRE-OP Blood Pressure : / mmHG Vent. Rate : 061 BPM Atrial Rate : 061 BPM P-R Int : 194 ms QRS Dur : 096 ms QT Int : 386 ms P-R-T Axes : 036 -20 002 degrees QTc Int : 388 ms Normal sinus rhythm Low voltage QRS Poor R wave progression Confirmed by SHAUN CHILDERS, CARLOS ([id number]), editor continuity and script ZACKARY BARNES ([id number]) on 07/17/2020 9:02:22 AM Referred By: Manoj Escalante Confirmed By:CARLOS DUNN MD
[2020-07-16 12:32] LABS: Absolute Lymphocyte Count 1.51 X10^3/uL (0.83-4.51); Absolute Neutrophil Count 2.2 X10^3/uL (2.0-7.7); Basophil# 0.03 X10^3/uL; Basophil% 0.7 % (0-1); Eosinophil# 0.11 X10^3/uL; Eosinophils% 2.6 % (0-5); Hematocrit 42.6 % (37-47); Hemoglobin 13.4 g/dL (12.0-15.0); Lymphocyte # 1.51 X10^3/ul (0.83-4.51); Lymphocyte % 35.2 % (19-41); Mean Corp Hgb Conc 31.5 g/dL (32-36); Mean Corpuscular Hgb 27.6 pg (27.0-32.0); Mean Corpuscular Volume 87.7 fL (81-99); Monocyte# 0.46 X10^3/uL; Monocyte% 10.7 % (0-10); NRBC Flagged by Analyzer 0 % (0-5); Neutrophil # 2.18 X10^3/uL (2.7-7.7); Neutrophil % 50.8 % (47-70); Platelet Count 191 K/mm3 (150-450); RBC Distribution Width CV 13.7 % (11.6-14.6); RBC Distribution Width SD 43.8 fl (35.1-43.9); Red Blood Count 4.86 M/mm3 (4.2-5.4); White Blood Count 4.3 K/mm3 (4.4-11.0)
[2020-07-16 12:47] LABS: International Normalized Ratio 1.1; Partial Thromboplast Time 28.9 Seconds (24.1-36.2); Prothrombin Time (Protime)PT. 13.5 SECONDS (11.7-14.9)
[2020-07-16 13:20] LABS: AST(SGOT) 13 U/L (15-37); Alanine Aminotransfer ALT/SGPT 22 U/L (13-56); Albumin, Serum 3.7 g/dL (3.2-5.0); Alkaline Phosphatase 132 U/L (45-117); Anion Gap 2 (5-15); BUN 7 mg/dL (7-18); BUN/Creat Ratio 7.4 RATIO (10-20); Bilirubin, Direct 0.14 mg/dL (0.00-0.30); Calcium,Total 9.2 mg/dL (8.5-10.1); Chloride 107 mmol/L (98-107); Creatinine, Serum 0.95 mg/dL (0.55-1.02); EST Glomerular Filtration Rate 65 mL/min (>60); Est Glom Filt Rate - Afr Amer 78 mL/min (>60); Globulin 3.7 g/dL (2.2-4.2); Glucose 88 mg/dL (74-106); Potassium 3.8 mmol/L (3.5-5.1); Protein, Total 7.4 g/dL (6.4-8.2); Sodium Level 139 mmol/L (136-145)
[2020-07-22] VITALS (11 sets, daily range): BP systolic 101–164; BP diastolic 52–95; PULSE 39–72; RESP 14–16; TEMP 36.4–37.4; O2SAT 87–100; BMI 40.8
--- NOTE | 2020-07-22 10:44 | HP.PCM_ITS ---
History and Physical Date of Admission: 07/22/20 History and Physical Date of Admission: 07/17/20 Intake Visit Reasons: Gall Stones Chief Complaint: gallstones Excavating Contractor Required: No Is patient in pain?: Yes (abdomen) Allergies No Known Allergies Allergy (Verified 06/30/20 13:45) Medications hydrocortisone 2.5 % topical cream 1 applic TOPICAL BID 12/13/18 [History Confirmed 06/30/20] Nitroglycerin (INPATIENT USE) [Nitrostat] 0.4 mg SL Q5M PRN #10 tab.subl 01/23/19 [Rx Confirmed 06/30/20] albuterol sulfate 90 mcg/actuation aerosol inhaler 2 puff INHALATION Q4H PRN #18 g 02/13/19 [Rx Confirmed 06/30/20] fluticasone propionate 50 mcg/actuation nasal spray,suspension 2 spray INTRANASAL DAILY #9.9 g 09/10/19 [Rx Confirmed 06/30/20] fluticasone propionate 110 mcg/actuation HFA aerosol inhaler 2 puff INHALATION BID #12 g 09/17/19 [Rx Confirmed 06/30/20] atorvastatin 20 mg tablet 20 mg PO DAILY #90 tab 02/16/20 [Rx Confirmed 06/30/20] omeprazole 20 mg capsule,delayed release 20 mg PO DAILY #90 cap 02/16/20 [Rx Confirmed 06/30/20] aspirin 81 mg tablet,delayed release 81 mg PO DAILY@0800 #90 tab 02/18/20 [Rx Confirmed 06/30/20] potassium chloride 10 mEq capsule,extended release 10 meq PO DAILY #30 cap 03/18/20 [Rx Confirmed 06/30/20] carvedilol 3.125 mg tablet 3.125 mg PO BID #60 tab 05/28/20 [Rx Confirmed 0 06/30/20] furosemide 20 mg tablet 40 mg PO DAILY #30 tab 05/28/20 [Rx Confirmed 06/30/20] PFSH Medical History? Pain due to vascular prosthetic devices, implants and grafts, sequela (Acute) RUQ abdominal pain (Resolved) Mid back pain (Resolved) Bradycardia (Chronic) Palpitations (Inactive) Hair loss (Inactive) Fatigue (Inactive) Hypersomnia (Chronic) 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 apnea (Chronic) needs gallbladder out (Chronic) Chest pain (Chronic) Edema (Chronic) History of syncope (Chronic ~1999) Asthma (Chronic) Low back pain (Chronic) IBS (irritable bowel syndrome) (Chronic) GERD (gastroesophageal reflux disease) (Chronic) Bilateral carpal tunnel syndrome (Chronic) Surgical History? History of right and left heart catheterization (Resolved 01/23/19) Family History? Mother Atrial fibrillation CVA (cerebral vascular accident) Diabetes Father Myocardial infarction CAD (coronary artery disease) Sister Pacemaker Social History? (Updated 06/30/20 @ 14:[address] Manoj Escalante MD) Smoking Status:? Former smoker quit date: 05/30/09 pack-years: 15 alcohol intake:? never HPI HPI HPI: JOELLEN GANT, is a 55 F who presents to the office today for surgical consultation regarding a variety of issues.? She complains that her gallbladder is malfunction for multiple years.? She states that previously it was strongly recommended to her that she have it removed.? She notes that she will have generalized abdominal pain.? She right upper quadrant pain. More partly however she goes on to state that she will have dizzy spells and syncopal spells.? She states that she is been encouraged by other physicians to seek remove her gallbladder to help resolve these issues. On June 12, 2020 at the [facility] she had a gallbladder ultrasound.? Fatty change of the liver.? There is a solitary gallstone 1.4 x 1.7 cm in the neck of the gallbladder.? The common bile duct is 3 mm.? The patient by report has had a cardiac catheterization as well as a Holter monitor.? To my understanding no acute events identified.? As of May 27, 2020 albumin was 3.8 amylase 63 lipase 53 AST 14 alkaline phosphatase 142 ALT 22.? TSH was 3.46. October 08, 2019 the patient had a chest CT with contrast.? No acute findings.? The patient was previously seen by Dr. Reginald Bateman November 01, 2019.? She had atypical nonexertional chest pain.? It was felt that she probably had gallbladder disease and it was stated that she would be referred to me at that time for her gallbladder.? The patient elected not to make that referral at the time.? She now accomplishes that communication The patient is referred by her primary care physician Dr. Sam Null and a written compromise surgical consult recommendations will be returned to him [facility] [address] [place] [address] Gallbladder MR#:? [id number]:[id number] Name: JOELLEN GANT ANNRep #:[id number] :? 1965F [id number] ? From:? Antoine Woods MD PCP:Dr. Sam Null MD? Status:REG CLI Study:Gallbladder? Date of Exam:06/12/20 Exam#[id number]? Ordering Dr:? Porfirio Jeff NP [employer] T[employer]ET AGENT-C STUDY:? ABDOMINAL ULTRASOUND - RIGHT UPPER QUADRANT REASON FOR VISIT: ? Female, 55 years old? abdominal pain, back pain, Hx gallbladder concerns TECHNIQUE: ? Ultrasound evaluation of the right upper quadrant was performed with real-time and static green-scale imaging. TECHNICAL? QUALITY: ? Limited.? Examination limited due to a combination of factors including obesity and bowel gas. COMPARISON: ? None. FINDINGS: Liver:? The liver measures 14.4 cm.? There is increased echogenicity consistent with fatty infiltration.? The bile ducts are within normal limits.? There is hepatic color flow.? The direction of portal flow is hepatopetal.? There is no demonstrated mass lesion. Gallbladder:? Normal distended gallbladder.? The gallbladder wall measures 2 mm.? There is a positive sonographic Cervantes''s sign.? There is no pericholecystic fluid.? There is a solitary echogenic gallstone within the gallbladder.? This measures 1.4 cm and 1.7 cm.? The stone is in the neck of the gallbladder. Common Bile Duct (C.B.D.): ? The common bile duct measures 3 mm. Pancreas: ? Normal size of the head, body and tail of the pancreas.? There is normal echogenicity of the pancreas. ? There is no demonstrated pancreatic mass or cyst. Right Kidney:? There is atrophy of the right kidney.? The right kidney measures 8.8 cm x 4.2 cm x 3.2 cm.? There is thinning of the renal cortex. The right cortex measures 0.7 cm.? There is no demonstrated renal mass or cyst.? There is no right hydronephrosis. US/Gallbladder IMPRESSION: Fatty infiltration of the liver. Solitary gallstone.? The gallstone is in the neck of the gallbladder. ? Electronically Signed: Antoine Woods MD at 10:18 EDT , Service support? , ? HPI HPI HPI: JOELLEN GANT, is a 55 F who presents to the office today for ROS General General: Yes weight change; no appetite, fatigue, colon cancer, breast cancer or weakness HEENT HEENT: No difficulty swallowing, eye injury, eye surgery, swollen glands or hoarseness Endo Endocrine: Yes diabetes mellitus; no thyroid disease, thyroid cancer, Hair loss, heat intolerance or cold intolerance Skin Skin: Yes rash; no changing moles Breast Breast: No left breast lump, right breast lump, nipple discharge, breast pain, abnormal mammogram, abnormal US or breast enlargement Musc Musculoskeletal: Yes back problems; no arthritis, rheumatoid arthritis, gout or joint pain Cardio Cardiovascular: Yes heart disease and high blood pressure; no murmur, pacemaker, atrial fibrillation, heart attack, heart stent, palpitations, shortness of breat with exertion or chest pain Psych Psychiatric: No depression, anxiety or hearing voices Resp Respiratory: No shortness of breath, No sleep apnea, No cough, No COPD, Yes asthma, No emphysema, No wheezing Gastro Gastrointestinal: Yes abdominal pain, Yes nausea or vomiting, Yes diarrhea, Yes constipation, No blood in stool, Yes acid reflux, No hemorrhoids, No ulcers, Yes gallbladder problem, No black,tarry stools Ishan Hematologic: No blood thinners, No blood disorders, No bleeding, No anemia, No blood clots Neuro Neurologic: No system reviewed and no additional complaints, except as docu, No as per HPI, No abnormal walking, No abnormal hearing, No abnormal movements, No abnormal speech, No behavioral changes, No burning sensations, No confusion, No seizure-like activity, No unsteadiness, No dizziness, No localized weakness, No frequent falls, No headache(s), No lack of coordination, No loss of vision, No memory loss, No numbness, No other visual disturbances, No radiating pain, No restless legs, No sensory deficit, No fainting, No tingling, No tremor(s), No weakness, No other Exam Const General: comfortable, no acute distress Nutritional Appearance: obese Orientation: alert, awake [facility] Head: normal to inspection Eyes General: appearance normal, both eyes and all related structures Neck Neck: normal visual inspection Chest Breast Palpation: No nipple discharge Resp Effort & Inspection: normal respiratory effort Auscultation: clear to auscultation bilaterally Cardio Rate: regular rate Rhythm: regular rhythm Heart Sounds: no murmurs GI Palpation: soft, no hepatosplenomegaly Auscultation: normal bowel sounds Other: Mild diffuse tenderness to even superficial palpation.? No focal mass.? No rebound.? No guarding. Musc Cervical Spine: normal cervical lordosis Skin General: no rashes or lesions noted Neuro Cognition: normal cognition Extrem General: no calf tenderness Psych Affect: labile affect Assessment & Plan Problems 1. RUQ abdominal pain? R10.11 2. Generalized abdominal pain? R10.84 3. Calculus of gallbladder with chronic cholecystitis without obstruction? K80.10 Plan Patient is somewhat difficult to keep on target.? She complains of some intermittent dark almost black stools.? She complains of a change of bowel norman bits with stringy small caliber stools.? She cannot remember whether she has ever had a colonoscopy.? She states that she has previously had stomach ulcers. With the nonspecific presentation I recommend to her a combined upper and lower endoscopy with possible biopsy or polypectomy as indicated.? She is aware of the technique, benefit, risk, alternatives.? I need to exclude the possibility of active peptic ulcer disease or occult colonic process.? If that is unremarkable then I recommend proceeding with a laparoscopic cholecystectomy with selective cholangiography.? She has had an opportunity to ask and have questions answered. I have been incredibly clear with the patient that I do not suspect that a cholecystectomy will improve or resolve dizziness or syncope.? I am hopeful that we can resolve her generalized abdominal pain right upper quadrant pain and back pain.? However she also is aware that the cholecystectomy may not resolve those issues as well.? She has had an opportunity to ask and have questions answered.? She is very adamant that she would like to proceed with definitive management at this time.? It appears that she has had previous cardiac work-up which was unremarkable for atypical chest pain.? It seems reasonable pursue the cholecystectomy in light of the gallstone within the gallbladder neck. I appreciate the opportunity of assisting with her surgical care Copy: Dr. Sam Escalante M.D., F.A.C.S. Coding Level of Care Code 17478 Diagnoses RUQ abdominal pain? R10.11 Generalized abdominal pain? R10.84 Calculus of gallbladder with chronic cholecystitis without obstruction? K80.10 ? Cholelithiasis location: gallbladder ? Biliary obstruction: without biliary obstruction The patient was previously scheduled for this endoscopic procedure.? Apparently there was problems with the bowel prep.? She is now rescheduled.? Plan for a esophagogastroduodenoscopy with possible biopsy and colonoscopy with possible biopsy or polypectomy today to help evaluate for abdominal pain.? She is aware of the technique, benefit, risk, alternatives.? If this examination is not remarkable then anticipate proceeding on with a laparoscopic cholecystectomy with selective cholangiography.? That also is scheduled for the very near future. Manoj Escalante M.D., F.A.C.S. The patient presents for her laparoscopic cholecystectomy today. The results of her upper and lower endoscopy does not correlate with her abdominal pain symptoms. She has had an opportunity ask and have questions answered. We will proceed was noted. Manoj Escalante M.D., F.A.C.S.
--- NOTE | 2020-07-22 11:00 | GALL_PTH ---
PATIENT: JOELLEN GANT [place] [facility] [id number] AGE/SX: 55/F ROOM: RE07/22/[address]: Dr. Manoj Escalante MD : 1965 BED: DIS: 07/22/2020 SPEC #: [id number] RECD: 07/22/20 15:03 STATUS: NILESH KAMARA #: [id number] BLADIMIR: 07/22/20 11:[address]: Manoj Escalante DEPT: SURGICAL PATHOLOGY RECD BY: Loretta Brown ENTERED: 07/23/20 11:34 SP TYPE: GOVIND SHAH DR: Dr. Sam Null MD Tissues: Gallbladder, NOS Procedures: Surgery Specimen Level III HEADER OPERATION: Laparoscopic cholecystectomy with IOC PRE-OP DIAGNOSIS: RUQ abdominal pain; calculus of gallbladder with chronic cholecystitis TISSUE SUBMITTED: Gallbladder MICROSCOPIC DIAGNOSIS Gallbladder, cholecystectomy: Chronic cholecystitis, cholelithiasis and cholesterolosis. SJ:petrona 07/24/2020 MICROSCOPIC DESCRIPTION Slides are reviewed. GROSS DESCRIPTION Received is one container labeled with the patient's name and designated gallbladder. The specimen consists of a gallbladder measuring 8 cm in length and up to 4 cm in diameter. The external surface is pink-gonzalez, smooth and glistening for the most part. Focally it is granular, hemorrhagic and contains cautery artifact. The gallbladder contains green-yellow mucoid bile and one ovoid, gonzalez-light yellow porcelain stone measuring 1.5 x 1.2 x 1 cm. The mucosa is bile-stained and without any mass lesions. The gallbladder wall measures up to 0.1 cm in thickness. The mucosa also shows several yellowish streaks consistent with cholesterolosis. Wood Scrap Handler sections from the gallbladder and the cystic duct are submitted in one cassette. / SHELLIE:petrona 07/23/20 TC:3 CPT: 24453
[2020-07-22] MEDS: Lactated Ringers 1,000 ML 100 ML IV ×2 (11:01→13:47)
[2020-07-22] MEDS: Cefazolin 2 GM in 0.9% Normal Saline 100 ML IV (11:03)
--- NOTE | 2020-07-22 11:07 | EX.PCM.DISCH ---
Discharge Instructions Procedure General Surgery Diet Discharge Diet: Light diet - advance as tolerated (if you have questions about your diet instructions, please talk to you doctor.) Activity Discharge Activity: May Not Drive (for 3-5 days or while taking narcotic pain medicine.) May shower in (days): 1 Lifting Restrictions: 10 pounds Dressing / Incision Call your doctor if your incision/area has: Continuous Slow Oozing, Sudden Increased Bleeding, Increased Pain/ Swelling, Increased Redness and Foul Smelling Discharge Call your doctor if you observe: Fever of 101 or Higher Suture Line Care: Avoid Pulling/Pushing and Avoid Pinching/Bending Additional Dressing/Incision Instructions:: Change or remove dressing in 4 days. Leave steri-strips in place for 1 week. Follow Up Care Please Follow Up With: Manoj Escalante MD When: Call [phone] to make an appointment to be seen in about 10 days. Test Results: Test results from this visit will be discussed in further detail at your follow-up appointment, if applicable. Discharge Plan Admission Attending Provider: Manoj Escalante Primary Care Provider: Sam Null Discharge Orders/Prescriptions Prescriptions: No Action hydrocortisone 2.5 % cream 1 applic TOPICAL BID RF: 0 albuterol sulfate [ProAir HFA] 90 mcg/actuation HFA aerosol inhaler 2 puff INHALATION Q4H PRN (Reason: Sob &/Or Wheezing) Qty: 18 RF: 6 nitroglycerin 0.4 MG tablet, sublingual 0.4 mg SL Q5M PRN (Reason: Cardiac/Chest Pain) Qty: 10 RF: 0 carvedilol 3.125 mg tablet 3.125 mg PO BID RF: 0 omeprazole 20 mg capsule,delayed release(DR/EC) 20 mg PO DAILY RF: 0 furosemide 20 mg tablet 40 mg PO DAILY RF: 0 fluticasone propionate [Allergy Relief (fluticasone)] 50 mcg/actuation spray,suspension 2 spray INTRANASAL DAILY Qty: 9.9 RF: 6 Flovent HFA 110 mcg/actuation HFA aerosol inhaler 2 puff INHALATION BID Qty: 12 RF: 6 atorvastatin 20 mg tablet 20 mg PO DAILY Qty: 90 RF: 3 aspirin 81 mg tablet,delayed release (DR/EC) 81 mg PO DAILY@0800 Qty: 90 RF: 3 potassium chloride 10 mEq capsule, extended release 10 meq PO DAILY Qty: 30 RF: 11 Other Ambulatory Orders: 12 Lead EKG (Routine) Location: None Selected Ordered By: Dr. Eulalio Real
--- NOTE | 2020-07-22 11:20 | RAD_ITS ---
STUDY: INTRAOPERATIVE INTRA CHOLANGIOGRAM. REASON FOR EXAM: Female, 55 years old. LAP RYAN WITH IOC FLUOROSCOPY TIME (if supplied): ( 22 seconds ) minutes/seconds. A single loop of 151 images was submitted. TECHNIQUE: Intraoperative cholangiogram was performed by the surgeon. Imaging was submitted. COMPARISON: None. FINDINGS: The common bile duct is not dilated. No intraluminal filling defect is seen. There is free flow of contrast into the duodenum. RAD/Cholangiogram/ O R,Initial IMPRESSION: Unremarkable intraoperative cholangiogram. Electronically Signed: Antoine Woods MD at 14:01 EDT , Service support ,
[2020-07-22] MEDS: Bupivacaine Mpf 0.5% 30 ML VIAL (12:21)
--- NOTE | 2020-07-22 12:23 | OP.PCM_ITS ---
Problems Associated Problem List Diagnoses (1) Cholelithiasis with chronic cholecystitis: Operative Report Date of Procedure: 07/22/20 Timeout and informed consent was obtained. The patient was taken to the operating room placed supine on the table. She underwent general endotracheal i ntubation anesthesia. The abdomen was sterilely prepped and draped. Ancef 2 g were given intravenously preoperatively. 0.5% Marcaine was used as a local anesthetic. Skin sites were preanesthetized. A total of 30 cc was used. A vertical infraumbilical incision was created. Holding sutures of 0 Vicryl placed. Varies needle inserted. The abdomen was insufflated with CO2 to a pressure of 12 mmHg pressure. A 10 mm trocar was inserted. 10 mm laparoscope inserted. No evidence of any trocar injuries. Under direct visualization 5 mm ports were placed in the epigastric mid abdomen the right upper quadrant. There were adhesions of omentum to the liver to the right of the gallbladder. These were transected and released from the liver with electrocautery. They were densely adherent and cauterization of the liver was required. Then I performed blunt dissection at the infundibulum of the gallbladder. The cystic duct lymph node cystic duct cystic artery identified critical view was achieved. A hemolock clip was placed on the cystic duct and incision made in the cystic duct and through a 14-gauge Angiocath cholangiogram catheter was inserted. Fluoroscopically controlled cholangiograms were obtained demonstrating normal ductal anatomy and free flow into the small bowel. There was slight diminutive change of the distal common bile duct but I felt that it was of normal caliber to allow for completion of the procedure. The cholangiogram catheter was removed. 2 hemolock clips were placed on the cystic duct stump prior to transecting it. The cystic artery was clipped twice proximally prior to transecting it. The gallbladder was then carefully dissected free from the liver bed. It was densely adherent. Small opening of the gallbladder relieved some bile which was rapidly aspirated. The gallbladder was then completely released. The gallbladder was placed in a retrieval bag. The right upper quadrant was irrigated and aspirated free of excess fluid. The liver bed treated with the cautery. A piece of fibrillar was placed in the liver bed to further assure hemostasis. The gallbladder was then exited at the umbilicus. I then used a GraNee needle of 0 Vicryl in a [id number] fashion to close the fascia at the umbilicus this was due to the depth of the fascia from the skin. Good closure was felt to have been achieved. The abdomen was then allowed to deflate of CO2 through the antiviral valve. Trochars were removed. Skin incisions were closed with interrupted 4-0 Monocryl subdermal stitches. Steri- Strips Telfa OpSite dressings applied. Sponge and instrument and needle counts were reported to the surgeon to be correct. Specimens gallbladder. Drains none. Blood loss minimal. The patient was taken to the recovery area in satisfactory condition without apparent complication Manoj Escalante M.D., F.A.C.S.
--- NOTE | 2020-07-22 12:28 | PCM.OPRPT ---
Report of Operation Date of Procedure: 07/22/20 Pre-Operative Diagnosis: Chronic cholecystitis cholelithiasis Post-Operative Diagnosis: Same Surgery/Procedure Performed:: Laparoscopic cholecystectomy with cholangiograms Description of Surgical Findings:: Timeout and informed consent was obtained. The patient was taken to the operating room placed supine on the table. She underwent general endotracheal intubation anesthesia. The abdomen was sterilely prepped and draped. Ancef 2 g were given intravenously preoperatively. 0.5% Marcaine was used as a local anesthetic. Skin sites were preanesthetized. A total of 30 cc was used. A vertical infraumbilical incision was created. Holding sutures of 0 Vicryl placed. Varies needle inserted. The abdomen was insufflated with CO2 to a pressure of 12 mmHg pressure. A 10 mm trocar was inserted. 10 mm laparoscope inserted. No evidence of any trocar injuries. Under direct visualization 5 mm ports were placed in the epigastric mid abdomen the right upper quadrant. There were adhesions of omentum to the liver to the right of the gallbladder. These were transected and released from the liver with electrocautery. They were densely adherent and cauterization of the liver was required. Then I performed blunt dissection at the infundibulum of the gallbladder. The cystic duct lymph node cystic duct cystic artery identified critical view was achieved. A hemolock clip was placed on the cystic duct and incision made in the cystic duct and through a 14-gauge Angiocath cholangiogram catheter was inserted. Fluoroscopically controlled cholangiograms were obtained demonstrating normal ductal anatomy and free flow into the small bowel. There was slight diminutive change of the distal common bile duct but I felt that it was of normal caliber to allow for completion of the procedure. The cholangiogram catheter was removed. 2 hemolock clips were placed on the cystic duct stump prior to transecting it. The cystic artery was clipped twice proximally prior to transecting it. The gallbladder was then carefully dissected free from the liver bed. It was densely adherent. Small opening of the gallbladder relieved some bile which was rapidly aspirated. The gallbladder was then completely released. The gallbladder was placed in a retrieval bag. The right upper quadrant was irrigated and aspirated free of excess fluid. The liver bed treated with the cautery. A piece of fibrillar was placed in the liver bed to further assure hemostasis. The gallbladder was then exited at the umbilicus. I then used a GraNee needle of 0 Vicryl in a [id number] fashion to close the fascia at the umbilicus this was due to the depth of the fascia from the skin. Good closure was felt to have been achieved. The abdomen was then allowed to deflate of CO2 through the antiviral valve. Trochars were removed. Skin incisions were closed with interrupted 4-0 Monocryl subdermal stitches. Steri-Strips Telfa OpSite dressings applied. Sponge and instrument and needle counts were reported to the surgeon to be correct. Specimens gallbladder. Drains none. Blood loss minimal. The patient was taken to the recovery area in satisfactory condition without apparent complication Manoj Escalante M.D., F.A.C.S. Type of Anesthesia: General Anesthesiologist: Hiren Pavon
[2020-07-22] MEDS: HYDROcodone Bitartrate/Apap 5/325 Tablet PO (16:39)
== END 2020-07-22 19:55 ==
LOC: SDC 09:18 → AC 09:19
PROVIDERS: PCP Internal Medicine; Referring Provider Surgery; Visit Provider Surgery
PROC: (CPT 47610; principal; 2020-07-22 10:40)
DX: K80.10 Calculus of gallbladder with chronic cholecystitis without obstruction (principal); Z20.822 Contact with and (suspected) exposure to COVID-19; I10 Essential (primary) hypertension; K58.9 Irritable bowel syndrome, unspecified; K21.9 Gastro-esophageal reflux disease without esophagitis; F41.9 Anxiety disorder, unspecified; I48.91 Unspecified atrial fibrillation; G47.33 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 apnea (adult) (pediatric); G56.03 Carpal tunnel syndrome, bilateral upper limbs; J45.909 Unspecified asthma, uncomplicated; Z87.19 Personal history of other diseases of the digestive system; Z79.82 Long term (current) use of aspirin; Z79.899 Other long term (current) drug therapy; Z87.891 Personal history of nicotine dependence
CPT/HCPCS: 00790; 47563; 36415; 74300; 76000; 80048; 80076; 85025; 85610; 85730; 87426; 88304; 93005; C9803; J7120; J2405

== ENCOUNTER 2020-07-31 16:37 | Emergency (ER) | payer MEDICAID, SELFPAY ==
[2020-07-31 16:38] VITALS: BP 128/77; PULSE 67; RESP 15; TEMP 36.6; O2SAT 98; BMI 37.9; BMI 48.0
--- NOTE | 2020-07-31 17:01 | EDS_ITS ---
HPI History of Present Illness Chief Complaint: Wound Informant: patient Onset/Context/Timing Onset: Days Context: Gradual Onset Timing: Intermittent Current Severity: Mild Maximum Severity: Moderate Narrative Narrative: The patient is a 55-year-old female who is 10 days status post laparoscopic cholecystectomy who presents to the emergency department intermittent abdominal pain. The patient states that she had normal surgery and normal postoperative course. She states she is now followed up to have her dressings evaluated. She states for the past few days, she is had intermittent cramping pain along her lower abdomen. She states is worse when she moves or twists. She denies fevers or chills. She denies nausea or vomiting. She denies any other systemic complaints. Prior similar symptoms: Yes Recent Illness/Hospitalization: Yes [facility] Medical History needs gallbladder out Anxiety Asthma Atrial fibrillation Bilateral carpal tunnel syndrome Bradycardia Bruises easily Chest pain Cholelithiasis with chronic cholecystitis Edema Fatigue Former smoker Generalized abdominal pain GERD (gastroesophageal reflux disease) Hair loss Hearing loss, left History of echocardiogram History of ectopic History of stress test History of syncope (~1999) History of vaginal delivery Hypersomnia IBS (irritable bowel syndrome) Loose, teeth Low back pain Mid back pain 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 apnea Pain due to vascular prosthetic devices, implants and grafts, sequela Palpitations Post-menopausal RUQ abdominal pain Ulcer Wears glasses Home Medications hydrocortisone 2.5 % topical cream 1 applic TOPICAL BID 12/13/18 [History Last Taken Unknown] nitroglycerin 0.4 mg SL Q5M PRN #10 tab.subl 01/23/19 [Rx Last Taken Unknown] albuterol sulfate 90 mcg/actuation aerosol inhaler 2 puff INHALATION Q4H PRN #18 g 02/13/19 [Rx Last Taken Unknown] fluticasone propionate 50 mcg/actuation nasal spray,suspension 2 spray INTRANASAL DAILY #9.9 g 09/10/19 [Rx Last Taken Unknown] fluticasone propionate 110 mcg/actuation HFA aerosol inhaler 2 puff INHALATION BID #12 g 09/17/19 [Rx Last Taken Unknown] atorvastatin 20 mg tablet 20 mg PO DAILY #90 tab 02/16/20 [Rx Last Taken Unknown] aspirin 81 mg tablet,delayed release 81 mg PO DAILY@0800 #90 tab 12/07/20 [Rx Last Taken 07/22/20 08:00] potassium chloride 10 mEq capsule,extended release 10 meq PO DAILY #30 cap 03/18/20 [Rx Last Taken 07/22/20 08:00] carvedilol 3.125 mg PO BID 07/14/20 [History Last Taken 07/22/20 08:00] furosemide 40 mg PO DAILY 07/14/20 [History Last Taken Unknown] omeprazole 20 mg PO DAILY 07/14/20 [History Last Taken 07/22/20 08:00] hydrocodone-acetaminophen 1 - 2 tab PO Q4H PRN PRN 2 Days #10 tab 07/22/20 [Rx Last Taken Unknown] Allergy/AdvReac Type Severity Reaction Status Date / Time No Known Allergies Allergy Verified 07/14/20 16:39 Family History Mother Atrial fibrillation CVA (cerebral vascular accident) Diabetes Father Myocardial infarction CAD (coronary artery disease) Sister Pacemaker Surgical History History of cardiac catheterization History of right and left heart catheterization (01/23/19) History of tooth extraction Hx of colonoscopy Hx of esophagogastroduodenoscopy Social History Smoking Status: Former smoker quit date: 05/30/09 pack-years: 15 alcohol intake: never ROS ROS ED Constitutional Constitutional ED: Denies chills or fever(s) Eyes Eyes: Denies blurry vision or change in vision ENT ENT ED: Denies ear pain or sore throat Cardiovascular Cardiovascular: Denies chest pain or palpitations Respiratory/Chest Respiratory/Chest: Denies cough, dyspnea or dyspnea on exertion Gastrointestinal Gastrointestinal: Reports abdominal pain and nausea Genitourinary Genitourinary ED: Denies dysuria or urinary frequency Musculoskeletal Musculoskeletal: Denies arthralgias or myalgias Integumentary Denies rash Neurologic Neurologic: Denies headache(s) or paresthesias Psychiatric Psychiatric: Denies anxiety or depression Endocrine Endocrinology: Denies polydipsia or polyuria Allergic/Immunologic Allergic/Immunologic ED: Denies urticaria EXAM Physical Exam Const Vital Signs: 07/31/20 16:38 07/31/20 17:19 Temperature 97.8 F Temperature Source Temporal Pulse Rate 67 Respiratory Rate 15 Respiratory Effort Normal Non-Labored Respiratory Pattern Normal Blood Pressure 128/77 H Blood Pressure Mean 94 Pulse Ox 98 Oxygen Delivery Method Room Air Positive well nourished and well developed General Appearance ED: well developed HEENT Reports normocephalic, head/scalp atraumatic and moist mucous membranes Eyes PERRL and EOMs intact bilaterally Neck no lymphadenopathy and supple General: Negative for tenderness Chest Wall inspection of chest normal Resp normal respiratory effort and clear to auscultation bilaterally Cardio regular rate, regular rhythm and no murmurs GI normal to inspection, nondistended, normoactive bowel sounds GI Narrative: Incisions are well approximated. The Marcus dressings were removed. Steri's are intact. There is no evidence of abscess, bleeding, or erythema. Palpation: Negative for tender, guarding or rebound tenderness present Back/Spine no CVA tenderness Cervical Spine: Negative for cervical spine tenderness Thoracic Spine / Upper Back: Negative for thoracic spinal tenderness Extremity normal to inspection General Extremety ED: Negative for tenderness Neuro oriented x3 and CN's II-XII intact bilaterally Neuro Narrative: No focal deficits appreciated. Sensorium / Orientation: alert Psych mental status grossly normal Skin no rashes or lesions noted, no wounds and skin turgor normal MDM MDM MDM Narrative Medical decision making narrative: Patient presents with diffuse abdominal pain after surgery. Her incisions are clean dry and intact. She is in no other infectious symptoms. She was given analgesics and antiemetics with some improvement., However her pain came back. Because of this, I did obtain CT imaging. Labs were obtained were unremarkable. Patient underwent CT which shows normal postoperative changes. There is no evidence of free fluid, abscess, or other dangerous process. At this point, I did discuss her case with Dr. Ward, surgeon covering. I do feel the patient is safe for outpatient follow-up. Patient is agreeable this plan of care and will be discharged home. Impression 1. Postoperative pain Lab Data Attestation: I reviewed the patient's lab results. Labs: Laboratory Results - last 24 hr 07/31/20 07/31/20 07/31/20 17:27 17:27 17:40 WBC 8.2 RBC 4.92 Hgb 13.8 Hct 42.9 MCV 87.2 MCH 28.0 MCHC 32.2 RDW Std Deviation 42.7 RDW Coeff of Collin 13.3 Plt Count 216 MPV 11.3 Immature Gran % (Auto) 0.400 Neut % (Auto) 59.5 Lymph % (Auto) 27.4 [place] % (Auto) 9.7 Eos % (Auto) 2.4 Baso % (Auto) 0.6 Absolute Neuts (auto) 4.9 Absolute Lymphs (auto) 2.25 Nucleated RBC % 0 Sodium 139 Potassium 3.4 L Chloride 104 Carbon Dioxide 30.0 Anion Gap 5 BUN 13 Creatinine 1.08 H Estim Creat Clear Calc 50.23 Est GFR (MDRD) Af Amer 67 Est GFR (MDRD) Non-Af 56 L BUN/Creatinine Ratio 12.0 Glucose 75 Calcium 8.9 Total Bilirubin 0.70 AST 12 L ALT 23 Alkaline Phosphatase 152 H Total Protein 7.7 Albumin 3.7 Globulin 4.0 Albumin/Globulin Ratio 0.9 Lipase 48 L Urine Color Yellow Urine Clarity Clear Urine pH 5.0 Ur Specific [place] 1.020 Urine Protein 15 H Urine Glucose (UA) Normal Urine Ketones Negative Urine Occult Blood Negative Urine Nitrite Negative Urine Bilirubin Negative Urine Urobilinogen Normal Ur Leukocyte Esterase 100 H Urine RBC 0 SEEN Urine WBC 0-5 SEEN Ur Squamous Epith Cells 0-5 SEEN Urine Bacteria 0 SEEN Urine Mucus RARE Radiography Diagnostic Testing: Radiology Impression Abdomen/Pelvis CT 07/31/20 18:42 IMPRESSION: Minimal nonspecific postoperative fluid collection in the gallbladder and one air bubble. Probably normal postoperative changes. Otherwise normal liver with no substantial dilatation of the bile ducts. Unremarkable pancreas and spleen. No acute bowel related findings. Negative for perforation, obstruction or inflammatory changes. A normal appendix is identified. Normal kidneys bilaterally without hydronephrosis. Unremarkable urinary bladder. Negative for pelvic mass. Minimal dependent bibasilar atelectasis. Electronically Signed: Eloise Mayorga MD at 18:58 EDT , Service support , Discharge Plan Triage Chief Complaint: Wound ED Provider: Reyes Raines Dx/Rx/DC Orders Instructions: ED Post Op Wound Check, Pain Prescriptions: No Action hydrocortisone 2.5 % cream 1 applic TOPICAL BID RF: 0 albuterol sulfate [ProAir HFA] 90 mcg/actuation HFA aerosol inhaler 2 puff INHALATION Q4H PRN (Reason: Sob &/Or Wheezing) Qty: 18 RF: 6 nitroglycerin 0.4 MG tablet, sublingual 0.4 mg SL Q5M PRN (Reason: Cardiac/Chest Pain) Qty: 10 RF: 0 carvedilol 3.125 mg tablet 3.125 mg PO BID RF: 0 omeprazole 20 mg capsule,delayed release(DR/EC) 20 mg PO DAILY RF: 0 furosemide 20 mg tablet 40 mg PO DAILY RF: 0 hydrocodone-acetaminophen 5-325 mg Tablet 1 - 2 tab PO Q4H PRN PRN (Reason: Pain Score 1-10/10) 2 Days Qty: 10 RF: 0 fluticasone propionate [Allergy Relief (fluticasone)] 50 mcg/actuation spray,suspension 2 spray INTRANASAL DAILY Qty: 9.9 RF: 6 Flovent HFA 110 mcg/actuation HFA aerosol inhaler 2 puff INHALATION BID Qty: 12 RF: 6 atorvastatin 20 mg tablet 20 mg PO DAILY Qty: 90 RF: 3 aspirin 81 mg tablet,delayed release (DR/EC) 81 mg PO DAILY@0800 Qty: 90 RF: 3 potassium chloride 10 mEq capsule, extended release 10 meq PO DAILY Qty: 30 RF: 11 Primary Care Provider: Sam Null Referrals: Manoj Escalante MD [STAFF PHYSICIAN] - 2 Days for wound check Sam Null MD [Primary Care Provider] -
[2020-07-31] MEDS: Ondansetron 4 MG/2 ML Vial IV (17:32)
[2020-07-31] MEDS: Morphine 4 MG/ML Syringe IV (17:32)
[2020-07-31 17:35] LABS: Absolute Lymphocyte Count 2.25 X10^3/uL (0.83-4.51); Absolute Neutrophil Count 4.9 X10^3/uL (2.0-7.7); Basophil# 0.05 X10^3/uL; Basophil% 0.6 % (0-1); Eosinophils% 2.4 % (0-5); Hematocrit 42.9 % (37-47); Hemoglobin 13.8 g/dL (12.0-15.0); Lymphocyte # 2.25 X10^3/ul (0.83-4.51); Lymphocyte % 27.4 % (19-41); Mean Corp Hgb Conc 32.2 g/dL (32-36); Mean Corpuscular Volume 87.2 fL (81-99); Mean Platelet Vol. 11.3 fl (6.2-12.0); Monocyte% 9.7 % (0-10); NRBC Flagged by Analyzer 0 % (0-5); Neutrophil # 4.89 X10^3/uL (2.7-7.7); Neutrophil % 59.5 % (47-70); Platelet Count 216 K/mm3 (150-450); RBC Distribution Width CV 13.3 % (11.6-14.6); RBC Distribution Width SD 42.7 fl (35.1-43.9); Red Blood Count 4.92 M/mm3 (4.2-5.4); White Blood Count 8.2 K/mm3 (4.4-11.0)
[2020-07-31 17:40] LABS: Bacteria 0 SEEN /hpf (None Seen); Red Blood Cells-Urine 0 SEEN /hpf (0-5)
[2020-07-31 17:44] LABS: Color, Urine Yellow (Yellow); Glucose, Dipstick Normal (Normal); Ketone-Dipstick Negative (Negative); Leukocyte Esterase-Dipstick 100 /ul (Negative); Nitrite-Dipstick Negative (Negative); Occult Blood-Urine Negative /ul (Negative); Protein-Dipstick 15 mg/dl (Negative); Urine Bilirubin Dipstick Negative (Negative); Urine Clarity Clear (Clear); Urine Urobilinogen Normal (Normal)
[2020-07-31 18:00] LABS: Mucous, Urine RARE /hpf (<or=2+); Squamous Epithelial Cells - UA 0-5 SEEN /hpf (5-10); White Blood Cells 0-5 SEEN /hpf (0-5)
[2020-07-31 18:21] LABS: ALB/GLOB Ratio 0.9 RATIO (0.9-2.4); AST(SGOT) 12 U/L (15-37); Alanine Aminotransfer ALT/SGPT 23 U/L (13-56); Albumin, Serum 3.7 g/dL (3.2-5.0); Alkaline Phosphatase 152 U/L (45-117); Anion Gap 5 (5-15); BUN 13 mg/dL (7-18); Calcium,Total 8.9 mg/dL (8.5-10.1); Chloride 104 mmol/L (98-107); Creatinine, Serum 1.08 mg/dL (0.55-1.02); EST Glomerular Filtration Rate 56 mL/min (>60); Est Glom Filt Rate - Afr Amer 67 mL/min (>60); Estimated Creatinine Clearance 50.23 ml/min; Glucose 75 mg/dL (74-106); Lipase 48 U/L (73-393); Potassium 3.4 mmol/L (3.5-5.1); Protein, Total 7.7 g/dL (6.4-8.2); Sodium Level 139 mmol/L (136-145)
--- NOTE | 2020-07-31 18:42 | CT_ITS ---
STUDY: CT ABDOMEN AND PELVIS WITH CONTRAST REASON FOR EXAM: Female, 55 years old. abd pain s/p yamilka RADIATION DOSAGE (If Supplied By Facility): CTDIvol = ( 18.74 ) mGy, DLP = ( 1172.41 ) mGycm TECHNIQUE: Transaxial images were obtained from the dome of the diaphragm to the symphysis pubis without oral contrast. IV 100mL Isovue-370 was administered. Sagittal and coronal images were reconstructed. Individualized dose optimization techniques were used for this CT. COMPARISON: Gallbladder ultrasound of 06/12/2020 and intraoperative cholangiogram of 07/22/2020 FINDINGS: Mild bibasilar atelectatic changes. The visualized portions of the heart are within normal limits. Normal liver. Status post cholecystectomy with a small amount of nonspecific low density in the gallbladder fossa and one isolated air bubble. There is no enhancement or other suspicious findings in the gallbladder fossa. Normal spleen. Normal pancreas. Normal bilateral adrenal glands. Normal right kidney. Normal left kidney. Normal visualized stomach. Normal small intestine. Normal colon. The appendix is visualized and appears normal. Normal abdominal aorta. Normal inferior vena cava. Normal retroperitoneum. Normal urinary bladder. Negative for pelvic mass or free fluid of the pelvis. Normal abdominal wall. There are diffuse degenerative changes of the visualized lumbar spine. CT/Abdomen/Pelvis W IV Cont ONLY IMPRESSION: Minimal nonspecific postoperative fluid collection in the gallbladder and one air bubble. Probably normal postoperative changes. Otherwise normal liver with no substantial dilatation of the bile ducts. Unremarkable pancreas and spleen. No acute bowel related findings. Negative for perforation, obstruction or inflammatory changes. A normal appendix is identified. Normal kidneys bilaterally without hydronephrosis. Unremarkable urinary bladder. Negative for pelvic mass. Minimal dependent bibasilar atelectasis. Electronically Signed: Eloise Mayorga MD at 18:58 EDT , Service support ,
[2020-07-31] MEDS: HYDROmorphone 0.5 MG/0.5 ML SYRINGE IV (18:48)
[2020-07-31 19:32] VITALS: BP 119/71; PULSE 71; RESP 16; O2SAT 98
== END 2020-07-31 19:34 | disposition home or self-care (01) ==
PROVIDERS: Emergency Provider Emergency Medicine; PCP Internal Medicine
DX: R10.84 Generalized abdominal pain (principal); G89.18 Other acute postprocedural pain; I48.91 Unspecified atrial fibrillation; J45.909 Unspecified asthma, uncomplicated; K58.9 Irritable bowel syndrome, unspecified; G47.33 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 apnea (adult) (pediatric); K21.9 Gastro-esophageal reflux disease without esophagitis; F41.9 Anxiety disorder, unspecified; Z78.0 Asymptomatic menopausal state; Z79.82 Long term (current) use of aspirin; Z79.899 Other long term (current) drug therapy; Z87.891 Personal history of nicotine dependence
CPT/HCPCS: 74177; 80053; 81001; 83690; 85025; 96361; 96374; 96375; 99283; J7030; Q9967; A4216; J2405

== ENCOUNTER → 2020-09-03 14:26 | Outpatient (CLI) | payer MEDICAID, SELFPAY ==
[2020-09-03 13:11] VITALS: BMI 44.2
[2020-09-03 14:57] LABS: Absolute Lymphocyte Count 2.08 X10^3/uL (0.83-4.51); Absolute Neutrophil Count 3.1 X10^3/uL (2.0-7.7); Basophil# 0.03 X10^3/uL; Basophil% 0.5 % (0-1); Eosinophil# 0.13 X10^3/uL; Eosinophils% 2.2 % (0-5); Hematocrit 41.6 % (37-47); Hemoglobin 13.3 g/dL (12.0-15.0); Lymphocyte # 2.08 X10^3/ul (0.83-4.51); Lymphocyte % 35.3 % (19-41); Mean Corpuscular Hgb 27.9 pg (27.0-32.0); Mean Corpuscular Volume 87.2 fL (81-99); Mean Platelet Vol. 10.9 fl (6.2-12.0); Monocyte# 0.56 X10^3/uL; Monocyte% 9.5 % (0-10); NRBC Flagged by Analyzer 0 % (0-5); Neutrophil # 3.09 X10^3/uL (2.7-7.7); Neutrophil % 52.3 % (47-70); Platelet Count 199 K/mm3 (150-450); RBC Distribution Width CV 13.9 % (11.6-14.6); RBC Distribution Width SD 44.6 fl (35.1-43.9); Red Blood Count 4.77 M/mm3 (4.2-5.4); White Blood Count 5.9 K/mm3 (4.4-11.0)
[2020-09-03 15:27] LABS: Anion Gap 3 (5-15); BUN 12 mg/dL (7-18); BUN/Creat Ratio 12.6 RATIO (10-20); Calcium,Total 9.4 mg/dL (8.5-10.1); Chloride 106 mmol/L (98-107); Creatinine, Serum 0.96 mg/dL (0.55-1.02); EST Glomerular Filtration Rate 64 mL/min (>60); Est Glom Filt Rate - Afr Amer 78 mL/min (>60); Glucose 87 mg/dL (74-106); Potassium 3.8 mmol/L (3.5-5.1); Sodium Level 142 mmol/L (136-145)
[2020-09-03 15:34] LABS: BNP,B-Type NATRIURETIC PEPTIDE 23.3 pg/mL (0-100)
== END ==
PROVIDERS: PCP Internal Medicine; Referring Provider Nurse Practitioner Family; Visit Provider Nurse Practitioner Family
DX: R00.2 Palpitations (principal); R06.00 Dyspnea, unspecified
CPT/HCPCS: 36415; 80048; 83880; 85025

== ENCOUNTER 2021-09-09 19:13 | Emergency (ER) | payer MEDICAID, SELFPAY ==
[2021-09-09 19:14] VITALS: BP 137/106; PULSE 89; RESP 16; TEMP 36.8; O2SAT 98; BMI 42.7
--- NOTE | 2021-09-09 21:15 | EDS_ITS ---
HPI History of Present Illness Chief Complaint: General Illness Narrative Narrative: 56-year-old female with body aches, chills, nausea x5 days. She states this is her fifth day of COVID symptoms. She denies chest pain or shortness of breath. She does have some diarrhea. She states this is somewhat chronic due to her cholecystectomy. No abdominal pain but she does have GERD symptoms. She has a history of GERD and hiatal hernia. Patient has not had any fever. She complains mostly that she is not eating well due to her acid reflux and nausea. Patient is able to tolerate fluids. She states she has been taking her Lasix even though she has not been hydrating well. [facility] Medical History Anxiety Asthma Atrial fibrillation Bilateral carpal tunnel syndrome Bloating Bradycardia Bruises easily Chest pain Cholelithiasis with chronic cholecystitis Diarrhea Edema Fatigue Former smoker Generalized abdominal pain GERD (gastroesophageal reflux disease) Hair loss Hearing loss, left Hiatal hernia History of echocardiogram History of ectopic History of stress test History of syncope (~1999) History of vaginal delivery Hypersomnia IBS (irritable bowel syndrome) Loose, teeth Low back pain Mid back pain 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 apnea Pain due to vascular prosthetic devices, implants and grafts, sequela Palpitations Post-menopausal Reflux gastritis RUQ abdominal pain Ulcer Wears glasses Home Medications hydrocortisone 2.5 % topical cream 1 applic topical BID skin 12/13/18 [History Last Taken Unknown] nitroglycerin 0.4 mg sublingual tablet 0.4 mg sublingual Q5M PRN Cardiac/Chest Pain ##10 01/23/19 [Rx Last Taken Unknown] albuterol sulfate 90 mcg/actuation aerosol inhaler (ProAir HFA) 2 puff inhalation Q4H PRN Sob &/Or Wheezing #18 grams 02/13/19 [Rx Last Taken Unknown] fluticasone propionate 50 mcg/actuation nasal spray,suspension (Allergy Relief (fluticasone)) 2 spray intranasal DAILY nasal dryness #9.9 grams 09/10/19 [Rx Last Taken Unknown] fluticasone propionate 110 mcg/actuation HFA aerosol inhaler (Flovent HFA) 2 puff inhalation BID #12 grams 09/17/19 [Rx Last Taken Unknown] hydrocodone-acetaminophen 5-325mg 5mg-325mg 1 - 2 tab PO Q4H PRN PRN Pain Score 1-10/10 2 days #10 tabs 07/22/20 [Rx Last Taken Unknown] atorvastatin 20 mg tablet 20 mg PO DAILY #90 tabs 02/16/21 [Rx Last Taken Unknown] omeprazole 40 mg capsule,delayed release 40 mg PO DAILY take omeprazole in am and pantoprazole at HS #90 caps 02/16/21 [Rx Last Taken Unknown] aspirin 81 mg tablet,delayed release 81 mg PO DAILY@0800 #90 tabs 02/19/21 [Rx Last Taken Unknown] carvedilol 3.125 mg tablet 3.125 mg PO BID heart #180 tabs 02/19/21 [Rx Last Taken Unknown] furosemide 20 mg tablet 40 mg PO DAILY water pill #90 tabs 02/19/21 [Rx Last Taken Unknown] potassium chloride 10 mEq capsule,extended release 10 meq PO DAILY #90 caps 02/19/21 [Rx Last Taken Unknown] colestipol 1 gram tablet 1 g PO BID #60 tabs 03/25/21 [Rx Last Taken Unknown] pantoprazole 40 mg tablet,delayed release (Protonix) 40 mg PO BID #60 tabs 03/25/21 [Rx Last Taken Unknown] phentermine 30 mg capsule 30 mg PO DAILY #30 caps 03/31/21 [Rx Last Taken Unknown] ondansetron 4 mg disintegrating tablet 4 mg PO Q8H PRN nausea and vomiting #14 tabs 09/09/21 [Rx Last Taken Unknown] sucralfate 100 mg/mL oral suspension (Carafate) 1 g (10 mL) PO BID #200 mL 09/09/21 [Rx Last Taken Unknown] Allergy/AdvReac Type Severity Reaction Status Date / Time No Known Allergies Allergy Verified 09/09/21 19:17 Family History Mother Atrial fibrillation CVA (cerebral vascular accident) Diabetes Father Myocardial infarction CAD (coronary artery disease) Sister Pacemaker Surgical History History of cardiac catheterization History of cholecystectomy (~07/22/20) History of right and left heart catheterization (01/23/19) History of tooth extraction Hx of colonoscopy Hx of esophagogastroduodenoscopy Social History Smoking Status: Former smoker quit date: 05/30/09 pack-years: 15 alcohol intake: never ROS ROS ED Constitutional Constitutional ED: Reports chills and fever(s) Eyes Eyes: Denies change in vision or diplopia ENT ENT ED: Denies rhinorrhea or sore throat Cardiovascular Cardiovascular: Denies chest pain or palpitations Respiratory/Chest Respiratory/Chest: Reports cough; Denies dyspnea or dyspnea on exertion Gastrointestinal Gastrointestinal: Reports diarrhea and nausea; Denies abdominal pain or constipation Genitourinary Genitourinary ED: Denies dysuria or hematuria Musculoskeletal Musculoskeletal: Denies arthralgias Integumentary Denies abscess or Abrasions Neurologic Neurologic: Denies headache(s) or paresthesias Psychiatric Psychiatric: Denies anxiety or depression EXAM Physical Exam Const Vital Signs: 09/09/21 19:14 09/09/21 20:02 Temperature 98.2 F Temperature Source Temporal Pulse Rate 89 Respiratory Rate 16 Respiratory Effort Normal Blood Pressure 137/106 H Blood Pressure Mean 116 Pulse Ox 98 Oxygen Delivery Method Room Air Positive well nourished General Appearance ED: NAD HEENT Reports moist mucous membranes Negative for trauma Eyes PERRL and EOMs intact bilaterally Chest Wall inspection of chest normal Resp normal respiratory effort and clear to auscultation bilaterally Cardio regular rate and regular rhythm GI normal to inspection, nondistended, normoactive bowel sounds Neuro oriented x3 and CN's II-XII intact bilaterally Sensorium / Orientation: alert Psych mental status grossly normal Skin no rashes or lesions noted MDM MDM MDM Narrative Medical decision making narrative: Well-appearing 56-year-old female presenting with COVID symptoms. She states this is day 5. Her symptoms are mild and she has not had a fever. She has body aches and chills as well as decreased p.o. intake. She states she is able to drink but just does not want to. She is also taking her Lasix even though she is not hydrating well. Patient does not appear to be clinically dehydrated. She has normal vital signs. Moist mucous membranes. Heart and lungs are normal. Patient counseled that she should discontinue her Lasix for the next few days. I do not believe needs blood work or imaging at this time. she is to continue to orally hydrate is much as possible the next couple of days with water, Pedialyte, Gatorade. I will provide her with some Zofran to help with nausea as well as Carafate to help her with her acid reflux symptoms. He is already on a PPI. Patient counseled she is to follow-up with her PCP due to resolution and she is given return precautions. Impression: 1. COVID-19 2. Nausea 3. Diarrhea Lab Data Attestation: I reviewed the patient's lab results. Discharge Plan Triage Chief Complaint: General Illness ED Provider: Robert Plummer Dx/Rx/DC Orders Instructions: Coronavirus Disease 2019 (COVID-19): Caring for Yourself or Others, ED GERD (Adult) Prescriptions: New ondansetron 4 mg tablet,disintegrating 4 mg PO Q8H PRN (Reason: nausea and vomiting) Qty: 14 0RF sucralfate [Carafate] 100 mg/mL suspension 1 g PO BID Qty: 200 0RF No Action hydrocortisone 2.5 % cream 1 applic TOPICAL BID albuterol sulfate [ProAir HFA] 90 mcg/actuation HFA aerosol inhaler 2 puff INHALATION Q4H PRN (Reason: Sob &/Or Wheezing) Qty: 18 6RF colestipol 1 gram tablet 1 g PO BID Qty: 60 1RF pantoprazole [Protonix] 40 mg tablet,delayed release (DR/EC) 40 mg PO BID Qty: 60 2RF phentermine 30 mg capsule 30 mg PO DAILY Qty: 30 0RF Rx Instructions: must administer 2 hours after breakfast nitroglycerin 0.4 MG tablet, sublingual 0.4 mg SL Q5M PRN (Reason: Cardiac/Chest Pain) Qty: 10 0RF hydrocodone-acetaminophen 5-325 mg Tablet 1 - 2 tab PO Q4H PRN PRN (Reason: Pain Score 1-10/10) 2 Days Qty: 10 0RF fluticasone propionate [Allergy Relief (fluticasone)] 50 mcg/actuation spray,suspension 2 spray INTRANASAL DAILY Qty: 9.9 6RF Flovent HFA 110 mcg/actuation HFA aerosol inhaler 2 puff INHALATION BID Qty: 12 6RF atorvastatin 20 mg tablet 20 mg PO DAILY Qty: 90 3RF omeprazole 40 mg capsule,delayed release(DR/EC) 40 mg PO DAILY Qty: 90 3RF Hold Instructions: Home Medication placed on hold at Doctor's office aspirin 81 mg tablet,delayed release (DR/EC) 81 mg PO DAILY@0800 Qty: 90 3RF carvedilol 3.125 mg tablet 3.125 mg PO BID Qty: 180 3RF furosemide 20 mg tablet 40 mg PO DAILY Qty: 90 3RF potassium chloride 10 mEq capsule, extended release 10 meq PO DAILY Qty: 90 3RF Primary Care Provider: Sam Null Referrals: Sam Null MD [Primary Care Provider] - Disposition Disposition: Home, Self Care
[2021-09-09] MEDS: Mag Hydrox/Al Hydrox/Simeth 30 ML UDC PO (21:26)
[2021-09-09] MEDS: Ondansetron ODT 4 MG Tablet PO (21:26)
[2021-09-09 21:28] VITALS: BP 132/78; RESP 18; O2SAT 98
== END 2021-09-09 21:29 | disposition home or self-care (01) ==
PROVIDERS: Emergency Provider Student in an Organized Health Care Education/Training Program; PCP Internal Medicine; Visit Provider Student in an Organized Health Care Education/Training Program
DX: U07.1 COVID-19 (principal); I48.91 Unspecified atrial fibrillation; K52.9 Noninfective gastroenteritis and colitis, unspecified; K21.9 Gastro-esophageal reflux disease without esophagitis; J45.909 Unspecified asthma, uncomplicated; F41.9 Anxiety disorder, unspecified; G47.33 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 apnea (adult) (pediatric); Z79.82 Long term (current) use of aspirin; Z79.899 Other long term (current) drug therapy; Z90.49 Acquired absence of other specified parts of digestive tract; Z87.891 Personal history of nicotine dependence
CPT/HCPCS: 87428; 99283

== ENCOUNTER → 2021-09-23 | Outpatient (CLI) | payer MEDICAID, SELFPAY ==
[2021-09-23 16:38] LABS: Absolute Lymphocyte Count 1.88 X10^3/uL (0.83-4.51); Absolute Neutrophil Count 5.2 X10^3/uL (2.0-7.7); Basophil# 0.03 X10^3/uL; Basophil% 0.4 % (0-1); Eosinophil# 0.07 X10^3/uL; Eosinophils% 0.9 % (0-5); Hematocrit 43.8 % (37-47); Hemoglobin 14.5 g/dL (12.0-15.0); Lymphocyte # 1.88 X10^3/ul (0.83-4.51); Lymphocyte % 23.7 % (19-41); Mean Corp Hgb Conc 33.1 g/dL (32-36); Mean Corpuscular Hgb 28.7 pg (27.0-32.0); Mean Corpuscular Volume 86.6 fL (81-99); Mean Platelet Vol. 11.6 fl (6.2-12.0); Monocyte# 0.75 X10^3/uL; Monocyte% 9.5 % (0-10); NRBC Flagged by Analyzer 0 % (0-5); Neutrophil # 5.18 X10^3/uL (2.7-7.7); Neutrophil % 65.2 % (47-70); Platelet Count 279 K/mm3 (150-450); RBC Distribution Width CV 13.8 % (11.6-14.6); Red Blood Count 5.06 M/mm3 (4.2-5.4); White Blood Count 7.9 K/mm3 (4.4-11.0)
[2021-09-23 17:15] LABS: Hemoglobin A1c 5.4 % (3.8-5.6)
[2021-09-23 17:21] LABS: BNP,B-Type NATRIURETIC PEPTIDE 36.6 pg/mL (0-100)
[2021-09-23 17:22] LABS: AST(SGOT) 20 U/L (15-37); Alanine Aminotransfer ALT/SGPT 29 U/L (13-56); Albumin, Serum 3.7 g/dL (3.2-5.0); Alkaline Phosphatase 122 U/L (45-117); Anion Gap 4 (5-15); BUN 12 mg/dL (7-18); Calcium,Total 9.2 mg/dL (8.5-10.1); Chloride 105 mmol/L (98-107); Creatinine, Serum 1.09 mg/dL (0.55-1.02); EST Glomerular Filtration Rate 55 mL/min (>60); Est Glom Filt Rate - Afr Amer 66 mL/min (>60); Globulin 3.8 g/dL (2.2-4.2); Glucose 89 mg/dL (74-106); Magnesium 2.2 mg/dL (1.6-2.6); Potassium 3.6 mmol/L (3.5-5.1); Protein, Total 7.5 g/dL (6.4-8.2); Sodium Level 140 mmol/L (136-145); T4 Free Direct 1.38 ng/dL (0.76-1.46); Thyroid Stim Hormone (TSH) 3.19 uIU/mL (0.358-3.74)
== END | disposition home or self-care (01) ==
LOC: LAB 14:51
PROVIDERS: PCP Internal Medicine; Referring Provider Nurse Practitioner Family; Visit Provider Nurse Practitioner Family
DX: R06.00 Dyspnea, unspecified (principal); E66.01 Morbid (severe) obesity due to excess calories; R51.9 Headache, unspecified
CPT/HCPCS: 36415; 80053; 83036; 83735; 83880; 84439; 84443; 85025

== ENCOUNTER → 2021-09-30 | Outpatient (CLI) | payer MEDICAID, SELFPAY ==
[2021-09-30 13:02] LABS: Erythrocyte Sedimentation Rate 8 mm/hr (0-30)
[2021-09-30 13:17] LABS: CRP < 2.90 mg/L (0.0-3.0); GGTP 15 U/L (5-55); LDH 179 U/L (84-246)
[2021-10-01 14:09] LABS: Anti-Centromere B Ab <0.2 AI (0.0-0.9); Anti-Chromatin <0.2 AI (0.0-0.9); Anti-Jo <0.2 AI (0.0-0.9); Anti-Scleroderma-70 AB <0.2 AI (0.0-0.9); RNP Ab 0.2 AI (0.0-0.9); SJOGREN'S Anti-SS-A test < 0.2 AI (0.0-0.9); SJOGREN'S Anti-SS-B test < 0.2 AI (0.0-0.9); Smith Ab <0.2 AI (0.0-0.9)
[2021-10-01 16:09] LABS: Endomysial Antibody IgA Negative (Negative)
[2021-10-02 07:54] LABS: Immunoglobulin A 183 mg/dL (87-352); t-Transglutaminase IgA <2 U/mL (0-3)
[2021-10-02 07:57] LABS: Anti-dsDNA Ab 1 IU/mL (0-9)
[2021-10-05 14:08] LABS: Albumin 3.6 g/dL (2.9-4.4); Alpha-1-Globulins 0.2 g/dL (0.0-0.4); Alpha-2-Globulins 0.7 g/dL (0.4-1.0); Cytoplasmic Ab (C-ANCA) <1:20 titer (Neg:<1:20); Gamma Globulin 1.1 g/dL (0.4-1.8); Immunoglobulin A 180 mg/dL (87-352); Immunoglobulin E 35 IU/mL (6-495); Immunoglobulin G 1098 mg/dL (586-1602); Immunoglobulin M 89 mg/dL (26-217); PROEL- TOTAL PROTEIN 6.8 g/dL (6.0-8.5)
[2021-10-05 16:09] LABS: Gastrin, Serum 114 pg/mL (0-115); Perinuclear Ab (P-ANCA) 1:20 titer (Neg:<1:20)
== END | disposition home or self-care (01) ==
LOC: LAB 10:49
PROVIDERS: PCP Internal Medicine; Referring Provider Nurse Practitioner Adult Health; Visit Provider Nurse Practitioner Adult Health
DX: R74.8 Abnormal levels of other serum enzymes (principal); R10.9 Unspecified abdominal pain; R19.7 Diarrhea, unspecified
CPT/HCPCS: 36415; 82784; 82785; 82941; 82977; 83516; 83615; 84165; 85652; 86140; 86225; 86235; 86255; 86256; 86334

== ENCOUNTER → 2021-10-13 | Outpatient (CLI) | payer MEDICAID, SELFPAY ==
--- NOTE | 2021-10-13 13:38 | ECHOCS_ITS ---
Reason For Study: SOB Procedure This was a 2D Doppler, Color Flow transthoracic echocardiogram. The study was technically difficult. Contrast injection was performed. Exam performed in department. Left Ventricle Normal LV size. Left ventricular systolic function is normal. The estimated ejection fraction is 55 %. No evidence for diastolic dysfunction. No regional wall motion abnormalities noted. Right Ventricle Normal RV size. Normal systolic function. Atria Normal left atrium. Normal right atrium. No doppler evidence for ASD. Mitral Valve There is no mitral annular calcification. Normal mitral valve. Trivial mitral valve insufficiency. Tricuspid Valve Normal tricuspid valve. Trivial tricuspid valve insufficiency. Unable to estimate RV systolic pressure/pulmonary artery pressure due to technically difficult study. Aortic Valve Trisinus/trileaflet aortic valve. Mild focal aortic valve calcification. Pulmonic Valve The pulmonic valve is not well visualized. Great Vessels The aortic root is not well visualized. Pericardium/Pleural No pericardial effusion. Medication 22 gauge I.V. with prn adaptor inserted into right arm. Diluted definity 3ml given slow IV push to enhance endocardial definition. MMode/2D Measurements & Calculations LVIDd: 4.4 cm IVSd: 1.1 cm LAV(MOD-bp): 45.1 ml LVIDs: 3.2 cm LVPWd: 1.1 cm RVDd: 3.1 cm FS: 27.8 % LAV(MOD-bp) Indexed: 21.0 ml/m2 LAV(MOD-sp2): 37.6 ml LAV(MOD-sp4): 45.7 ml SV(MOD-sp4): 45.7 ml SV(sp4-el): 48.0 ml LVAd ap4: 24.8 cm2 LVLd ap4: 6.7 cm EDV(MOD-sp4): 74.5 ml EDV(sp4-el): 77.7 ml LVAs ap4: 14.5 cm2 LVLs ap4: 6.0 cm ESV(MOD-sp4): 28.8 ml ESV(sp4-el): 29.7 ml EF(MOD-sp4): 61.3 % EF(sp4-el): 61.8 % LA dimension(2D): 3.2 cm LA A4 area: 17.7 cm2 RA A4 area: 10.5 cm2 Time Measurements MV dec time: 0.21 sec Doppler Measurements & Calculations MV E max slava: 65.4 cm/sec Lat Peak E' Slava: 9.8 cm/sec Med Peak E' Slava: 7.8 cm/sec MV A max slava: 71.3 cm/sec E/E' lat: 6.7 E/E' med: 8.4 MV E/A: 0.92 MV dec slope: 307.2 cm/sec2 Ao V2 max: 147.2 cm/sec LV V1 max: 107.2 cm/sec Ao max P.7 mmHg LV V1 max P.6 mmHg PA V2 max: 99.1 cm/sec ECHO/Echo Complete W/ Contrast Interpretation Summary The study was technically difficult. Contrast injection was performed. Left ventricular systolic function is normal. The estimated ejection fraction is 55 %. Trivial mitral valve insufficiency. Trivial tricuspid valve insufficiency. Mild focal aortic valve calcification. Unable to estimate RV systolic pressure/pulmonary artery pressure due to techni taye difficult study. No evidence for diastolic dysfunction. Ordering Physician: Porfirio Jeff/Raffaele Deshpande Referring Physician: Sam Null M.D. Performed By: Chinyere Valentine RDCS
== END | disposition home or self-care (01) ==
LOC: CVS 13:36
PROVIDERS: PCP Internal Medicine; Referring Provider Nurse Practitioner Family; Visit Provider Nurse Practitioner Family
DX: R06.02 Shortness of breath (principal)
CPT/HCPCS: 93306; Q9957; A4216; C8929

== ENCOUNTER → 2021-10-16 | Outpatient (CLI) | payer MEDICAID, SELFPAY ==
--- NOTE | 2021-10-16 15:50 | CT_ITS ---
STUDY: CT Abdomen And Pelvis W/ Contrast Injection 10/16/2021 6:02 PM REASON FOR EXAM: Female, 56 years old. ABDOMINAL PAIN lower abd pain, diarrhea -- TECHNIQUE: Transaxial images were obtained with oral contrast, and with Oral and amp; IV Readi-CAT and amp; 100mL Isovue-300 intravenous contrast. Individualized dose optimization techniques were used for this CT. COMPARISON: None. FINDINGS: The visualized lung bases are unremarkable. The visualized portions of the heart are within normal limits. Unremarkable liver. There is non-visualization of the gallbladder, which may be secondary to either contraction or a prior cholecystectomy. Unremarkable spleen. Unremarkable pancreas. Unremarkable bilateral adrenal glands. No acute findings of the right kidney. No acute findings of the left kidney. Unremarkable visualized stomach. Unremarkable small intestine. Unremarkable colon. The appendix is visualized and appears unremarkable. There are no acute findings of the abdominal aorta. Unremarkable inferior vena cava. Subcentimeter mesenteric lymph nodes. Unremarkable urinary bladder. Unremarkable abdominal wall. Vacuum disc phenomenon. CT/Abdomen/Pelvis WITH Contrast IMPRESSION: (NOT LISTED IN ORDER OF SIGNIFICANCE) There are no acute findings. Other findings as above. Electronically Signed: Cornell Cueto MD at 18:04 EDT ,
== END | disposition home or self-care (01) ==
LOC: CT 15:37
PROVIDERS: PCP Internal Medicine; Referring Provider Nurse Practitioner Adult Health; Visit Provider Nurse Practitioner Adult Health
DX: R19.7 Diarrhea, unspecified (principal); R10.30 Lower abdominal pain, unspecified; R74.8 Abnormal levels of other serum enzymes
CPT/HCPCS: 74177; Q9967

== ENCOUNTER → 2021-10-23 | Outpatient (CLI) | payer MEDICAID, SELFPAY ==
--- NOTE | 2021-10-23 15:58 | MRI_ITS ---
STUDY: MRI BRAIN WITH AND WITHOUT CONTRAST REASON FOR EXAM: Female, 56 years old. Worsening Migraine TECHNIQUE: Standardized multiplanar fat and water weighted pulse sequences were obtained. IV 20ml dotarem was administered for the contrast portion of the examination. COMPARISON: None. FINDINGS: Normal size of the ventricles and extra-axial spaces for the patient''s age. Normal white matter tracts of the supratentorial brain. There is no evidence for recent intracranial ischemia or other cause of cytotoxic edema on diffusion weighted imaging (DWI). Normal T2* images of the brain without demonstrated susceptibility artifact. There is no demonstrated hemosiderin stain. Normal bilateral basal ganglia. Normal thalami. There is no extra-axial fluid accumulation. Normal flow voids within the major intracranial circulation suggesting patency by spin echo criteria. Normal venous enhancement. There is no enhancing intra-axial or extra-axial abnormality. Normal sella turcica, pituitary gland, infundibular stalk, optic chiasm and hypothalamus. Normal tectal plate and pineal gland. Normal midbrain, franco and medulla. Normal cerebellum. Normal basal cisterns. Normal bilateral temporal bones. Normal bilateral internal auditory canals. No demonstrated orbital abnormality, within the constraints of a routine brain study. Normal visualized paranasal sinuses. Normal calvarium and skull base. Normal visualized soft tissue structures. Normal visualized upper cervical spine. MRI/Brain W/WO Contrast IMPRESSION: No evidence of acute intracranial bleed, mass or ischemia. Electronically Signed: Devonte Smith DO at 14:09 EDT ,
== END | disposition home or self-care (01) ==
LOC: MRI 15:58
PROVIDERS: PCP Internal Medicine; Referring Provider Nurse Practitioner Family; Visit Provider Nurse Practitioner Family
DX: R51.9 Headache, unspecified (principal)
CPT/HCPCS: 70553; A9575

== ENCOUNTER → 2022-01-25 | Outpatient (CLI) | payer MEDICAID, SELFPAY | END | disposition home or self-care (01) | LOC: SL 20:25 | PROVIDERS: PCP Internal Medicine; Visit Provider Internal Medicine Critical Care Medicine | DX: G47.33 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 apnea (adult) (pediatric) (principal) | CPT/HCPCS: 95810 ==

== ENCOUNTER 2022-02-03 14:30 | Outpatient (RCR) | payer MEDICAID, SELFPAY ==
--- NOTE | 2021-12-30 16:00 | HP.PTEVAL_ITS ---
Patient's Visit Information JOELLEN GANT is a 56 year old F referred to Physical Therapy by Dr. Frank Fletcher MD with a diagnosis of Right Knee Pain. Date of Evaluation: 12/30/21 Physical Therapist: Soraya Cardenas DPT - Visit Plan Frequency: 2x /Week Duration: 4 Weeks Plan: Focus on LE and core strength/stabilization- Aquatic Setting - Subjective Patient reports that she has bad knees and ankles- she has had knee pain in the right for over 10 years- she has OA in the right knee- they noticed that she has edema. But a week and a half ago she was walking down the stairs and her foot hit hard and felt a crunch in the left knee. She feels that her knees are worse when its cold outside- she can only be standing on her feet for very long. She is unable to clean her whole house- its hard to walk, stand and pretty much do a lot movement. She has OA throughout her body. She has knots in her back. They gave her a brace which helps but wants to slide up and down so its not as helpful as she wants it to be. Sleep: disturbed- its still and it hurts- she can't lay on her right side- but a pillow does help. She has bone on bone in both knees. Pain is located around the knee cap and along the medial and lateral joint line. Does have radiating pain into the hip and ankle. She is unsure where the pain starts and stops. 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 It feels hot to the touch. Worst: +10/10 she has been to the ER for knee pain. Best: 4/10. Eases: elevation with ice and heat and touching a soft pillow. They gave her a medication for inflammation and pain plus tylenol and aleve. - Objective Posture: FH, RS- can correct but does not maintain. Gait: slightly antalgic- decreased stance on the right LE. Stairs: asc/desc 8 non recip with 2 HR. HR/TR: able with UE A but reports pain. Palpation: pain throughout- increased mobility and pain with patellar mobilization. SLS: weight shift only. ROM: Right Knee: 10-100 degrees. Sensation: diminished to gross touch right>left. Strength: Core: fair minus, Hip: 4-/5 throughout, Knee:4-/5, Ankle: 4+/5. Flex: HS: mild Gastroc: mild. Sit to Stand: no UE A - Special Tests R Knee Valgus - MCL: Positive R Knee Varus - LCL: Positive R Knee Patellar Grind - PFS: Positive - Balance/Special Test Scores Lower Extremity Functional Score: 26 - Goals Goal 1:: Patient will be I with HEP and progression Goal Time Frame: 4-6 Weeks Goal 2:: Patient will ambulate >300 feet with a normalized gait pattern Goal Time Frame: 4-6 Weeks Goal 3:: Patient will asc/desc 8 recip with no HR Goal Time Frame: 4-6 Weeks Goal 4:: Patient will report 80% improvement Goal Time Frame: 4-6 Weeks - Rehabilitation Potential Physical Therapy Diagnosis: Patient presents with hypomobility- she has decreased LE and core strength/stabilization and muscular endurance- leading to increased pain with ADL's. Rehabilitation Potential: Fair - Anticipated Interventions Patient/Client Instruction: Educate patient on: Benefits of Fitness Program Therapeutic Exercise to Include: Strength training, Endurance training, Balance training, Coordination, Agility training, Body mechanics, Postural training, Flexibilty training, Gait and locomotor training, Neuromotor development, In an aquatic setting, Dynamic Lumbar Stabilization, Scapular Strength/Stabilization For the Purpose of:: To improve muscle performance and motor function Thank you for the opportunity to evaluate your patient. For Medicare and Medicare HMO plans, please review the plan of care and approve it. It will need to be FAXED BACK to us at [phone] for Medicare purposes. For Medicare only, by signing this I certify the plan of care. Please let me know if there are questions or concerns regarding this plan of care. Physician Signature: Date:
--- NOTE | 2022-06-07 08:06 | HP.PT.NRP ---
JOELLEN GANT was seen in my office for initial evaluation on 12/30/21. The following Plan of Care was established for this patient: Initial Frequency: 2x /Week Initial Duration: 4 Weeks Patient/Client Instruction: Educate patient on: Benefits of Fitness Program Therapeutic Exercise to Include: Strength training, Endurance training, Balance training, Coordination, Agility training, Body mechanics, Postural training, Flexibilty training, Gait and locomotor training, Neuromotor development, In an aquatic setting, Dynamic Lumbar Stabilization, Scapular Strength/Stabilization For the Purpose of:: To improve muscle performance and motor function This patient was last seen in our office . Pertinent comments regarding their Physical therapy will appear below: Patient has not attended PT in over 30 days- appropriate to be d/c from PT and return to MD as appropriate At this point I will be discontinuing this patient from physical therapy. I would be happy to see this patient again in the future if found appropriate by the physician. Thank you! Soraya Cardenas, KRISSYT Balance/Gait/Functional tests - Balance/Special Test Scores Lower Extremity Functional Score: 26
== END 2022-02-03 19:00 | disposition home or self-care (01) ==
LOC: PT 14:30
PROVIDERS: PCP Internal Medicine; Referring Provider Orthopaedic Surgery; Visit Provider Orthopaedic Surgery
DX: M25.361 Other instability, right knee (principal); M25.362 Other instability, left knee; M25.461 Effusion, right knee
CPT/HCPCS: 97113; 97162

== ENCOUNTER → 2022-02-09 | Outpatient (CLI) | payer MEDICAID, SELFPAY ==
--- NOTE | 2022-02-09 14:48 | CT_ITS ---
STUDY: CT CHEST WITH CONTRAST REASON FOR EXAM: Female, 57 years old. Hemoptysis, H/O mediastinal LAD RADIATION DOSAGE (If Supplied By Facility): CTDIvol = ( 14.26 ) mGy, DLP = ( 626.60 ) mGycm TECHNIQUE: Transaxial imaging was performed following intravenous administration of IV 100mL Isovue-300. Multiplanar coronal and sagittal images were reformatted. Individualized dose optimization techniques were used for this CT. COMPARISON: Comparison is made with prior examination dated 10/08/2019. FINDINGS: CHEST The lungs are normal. There is no demonstrated pleural abnormality. Normal heart and pericardium. There are multiple small lymph nodes within the mediastinum, which are normal in size and morphology most compatible with reactive lymph hyperplasia. Normal hilar regions. Normal unenhanced pulmonary arteries. Normal aorta arch and descending thoracic aorta. Normal osseous structures. There is no demonstrated abnormality of the visualized upper abdomen. CT/Chest WITH Contrast IMPRESSION: Normal enhanced CT chest T abdomen examination. Electronically Signed: Antoine Woods MD at 15:36 EST ,
== END | disposition home or self-care (01) ==
LOC: CT 14:47
PROVIDERS: PCP Internal Medicine; Referring Provider Internal Medicine Critical Care Medicine; Visit Provider Internal Medicine Critical Care Medicine
DX: R59.0 Localized enlarged lymph nodes (principal)
CPT/HCPCS: 71260; Q9967

== ENCOUNTER → 2022-11-17 | Outpatient (CLI) | payer MEDICAID, SELFPAY ==
[2022-11-17 17:01] LABS: Hematocrit 42.2 % (37-47); Mean Corp Hgb Conc 33.2 g/dL (32-36); Mean Corpuscular Volume 87.6 fL (81-99); Mean Platelet Vol. 11.4 fl (6.2-12.0); Platelet Count 195 K/mm3 (150-450); RBC Distribution Width CV 13.6 % (11.6-14.6); RBC Distribution Width SD 44.1 fl (35.1-43.9); Red Blood Count 4.82 M/mm3 (4.2-5.4); White Blood Count 7.5 K/mm3 (4.4-11.0)
[2022-11-17 17:27] LABS: BNP,B-Type NATRIURETIC PEPTIDE 25.7 pg/mL (0-100)
[2022-11-17 17:37] LABS: Anion Gap 5 (5-15); BUN 20 mg/dL (7-18); BUN/Creat Ratio 14.7 RATIO (10-20); Calcium,Total 9.3 mg/dL (8.5-10.1); Chloride 106 mmol/L (98-107); Creatinine, Serum 1.36 mg/dL (0.55-1.02); EST Glomerular Filtration Rate 42 mL/min (>60); Est Glom Filt Rate - Afr Amer 51 mL/min (>60); Glucose 86 mg/dL (74-106); Potassium 3.6 mmol/L (3.5-5.1); Sodium Level 139 mmol/L (136-145); Thyroid Stim Hormone (TSH) 6.34 uIU/mL (0.358-3.74)
== END | disposition home or self-care (01) ==
LOC: LABSPEC 16:16 → LAB 16:24
PROVIDERS: PCP Internal Medicine; Referring Provider Nurse Practitioner Gerontology; Visit Provider Nurse Practitioner Gerontology
DX: R06.00 Dyspnea, unspecified (principal); R07.9 Chest pain, unspecified; R00.2 Palpitations
CPT/HCPCS: 36415; 80048; 83880; 84443; 85027

== ENCOUNTER → 2022-12-30 | Outpatient (CLI) | payer MEDICAID, SELFPAY ==
--- NOTE | 2022-12-30 12:43 | NM_ITS ---
INDICATION: bloating and pain, early satiety, acid reflux, hiatal hernia, burning sensation around umbilicus, IBS, fluid retention EXAMINATION: NUCLEAR MEDICINE GASTRIC EMPTYING - NM Gastric Emptying Study (solid, liquid or both) TECHNIQUE: Radiopharmaceutical (solid portion of the exam): 1.1 mCi of Tc99m Sulfur Colloid mixed with oat meal. Oral administration. Imagin minutes COMPARISON: FINDINGS: T1/2 is measured at 41 minutes, within normal limits. At 60 minutes, there is approximately 70% emptying . There is documented passage of isotope into the small bowel. Progressive visual decrease of isotope from the stomach into the small bowel. NM/Gastric Emptying Study IMPRESSION: Normal gastric emptying time with solids. Electronically Signed: Cesar Cornell MD ([place]) at 15:36 EDT ,
[2022-12-30 13:45] LABS: Anion Gap 3 (5-15); BUN 22 mg/dL (7-18); BUN/Creat Ratio 14.9 RATIO (10-20); Calcium,Total 9.1 mg/dL (8.5-10.1); Chloride 107 mmol/L (98-107); Creatinine, Serum 1.48 mg/dL (0.55-1.02); EST Glomerular Filtration Rate 38 mL/min (>60); Est Glom Filt Rate - Afr Amer 46 mL/min (>60); Glucose 98 mg/dL (74-106); Potassium 3.8 mmol/L (3.5-5.1); Sodium Level 140 mmol/L (136-145)
== END | disposition home or self-care (01) ==
PROVIDERS: Nurse Practitioner Family; PCP Internal Medicine; Referring Provider Internal Medicine Gastroenterology; Visit Provider Internal Medicine Gastroenterology
DX: R06.09 Other forms of dyspnea (principal); R14.0 Abdominal distension (gaseous); R10.84 Generalized abdominal pain
CPT/HCPCS: 36415; 78264; 80048; A9541

== ENCOUNTER → 2023-03-08 | Outpatient (CLI) | payer MEDICAID, SELFPAY ==
--- OUTSIDE RECORDS SUMMARY | 2023-03-09 19:56 | XMS RPT_ITS | CCD ---
Author Name Unknown Address [id number] [place] [address] Organization [facility] Care Team Providers Care Wringer 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 Name Role Phone SAM SAUNDERS Unavailable Unavailable Chaka CHILDERS, Sam Benitez Primary Care Provider [phone] Chaka CHILDERS, Sam Benitez Primary Care Provider [phone] Chaka CHILDERS, Sam Benitez Primary Care Provider [phone] SAM SAUNDERS Primary Care Unavailable SELWYN HYATT Attending Unavailable SELWYN HYATT Referring Unavailable SAUNDERS, LUCRECIA Primary Care Unavailable RAFFAELE MUSTAFA Referring Unavailabl e SAUNDERS, LUCRECIA Primary Care Unavailable RAFFAELE MUSTAFA Referring Unavailabl e SAUDNERS, LUCRECIA Primary Care Unavailable RAFFAELE MUSTAFA Attending Unavailabl e SAUNDERS, LUCRECIA Primary Care Unavailable SHREYA, VERITO M Referring Unavailable SAUNDERS, LUCRECIA Primary Care Unavailable SHREYA, VERITO M Referring Unavailable SAUNDERS, LUCRECIA Primary Care Unavailable SHREYA, VERITO M Referring Unavailable SAUNDERS, LUCRECIA Primary Care Unavailable SHREYA, VERITO M Referring Unavailable SAUNDERS, LUCRECIA Primary Care Unavailable SHREYA, VERITO M Referring Unavailable SHREYA, VERITO M Attending Unavailable SAUNDERS, LUCRECIA Primary Care Unavailable SAUNDERS, LUCRECIA Primary Care Unavailable SAUNDERS, LUCRECIA Referring Unavailable SHREYA, VERITO M Attending Unavailable SAUNDERS, LUCRECIA Primary Care Unavailable SHREYA, VERITO M Referring Unavailable SELWYN HYATT Referring Unavailable SAUNDERS, LUCRECIA Primary Care Unavailable Allergies Allergy Classification Reported Allergen(s) Allergy Type Date of Onset Reaction(s) Facility (20 sources) Seasonal allergy; 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: [SEASONAL ALLERGIES] Propensity to adverse reactions 04-08-2021 Intolerance [facility] Work Phone: Medications Current Medications Medication Drug Class(es) Dates Sig (Normalized) Sig (Original) diclofenac sodium 75 mg delayed release oral tablet (12 sources) Nonsteroidal Anti-inflammatory Drug Start: 06-11-2022 End: 11-10-2022 take 1 tablet by mouth twice daily diclofenac, EC, (VOLTAREN) 75 mg EC tablet Indications: 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 , Effusion of right knee Take 1 tablet by mouth twice daily. 60 tablet 0 10/11/2022 11/10/2022 Active Completed/Discontinued Medications Medication Drug Class(es) Dates Sig (Normalized) Sig (Original) [id number] 200 actuat albuterol 0.09 mg/actuat metered dose inhaler (20 sources) beta2-Adrenergic Agonist Start: 10-08-2021 End: 12-27-2022 take 2 puff(s) by inhalation every four hours as needed albuterol HFA (PROAIR HFA) 90 mcg/actuation inhaler Indications: Mild intermittent asthma without complication Inhale 2 Puffs as instructed every 4 hours as needed. 1 Each 0 12/27/2022 Active Problems Active Problems Problem Classification Problem Date Documented Da te Episodic/Chronic Administrative/social admission (1 source) Impaired mobility; 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: [Other reduced mobility] Episodic Allergic reactions (2 sources) Eczema; 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: [Dermatitis, unspecified] 10-08-2022 Episodic Asthma (20 sources) Asthma; 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: [Unspecified asthma, uncomplicated] Onset: 9 07-31-2015 Chronic Chronic kidney disease (20 sources) Chronic kidney disease stage 3A ; 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: [Chronic renal impairment, stage 3a] Onset: 2 04-08-2021 Chronic Chronic kidney disease (1 source) Chronic kidney disease; 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: [Stage 3a chronic kidney disease (HCC)] Onset: 3 Esophageal disorders (20 sources) Gastroesophageal reflux disease; 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: [Gastro-esophageal reflux disease without esophagitis] Onset: 1 07-29-2010 Chronic Nephritis; nephrosis; renal sclerosis (7 sources) Atrophy of right kidney; 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: [Atrophy of kidney (terminal)] Onset: 3 01-27-2023 Chronic Osteoarthritis (1 source) Osteoarthritis of right knee joint; 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: [Unilateral primary osteoarthritis, right knee] Chronic Other diseases of kidney and ureters (1 source) Renal impairment; 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: [Disorder of kidney and ureter, unspecified] 12-03-2022 Episodic Other diseases of kidney and ureters (1 source) Disorder of kidney and ureter, unspecified; 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: [Renal insufficiency] Onset: 3 Episodic Other gastrointestinal disorders (20 sources) Irritable bowel syndrome with diarrhea; 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: [Irritable bowel syndrome with diarrhea] Onset: 6 08-04-2015 Chronic Other gastrointestinal disorders (1 source) Irritable bowel syndrome with diarrhea; 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: [Irritable bowel syndrome with diarrhea] Onset: 6 Chronic Other nervous system disorders (20 sources) Bilateral carpal tunnel syndrome; 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: [Carpal tunnel syndrome, bilateral upper limbs] Onset: 6 10-16-2015 Chronic Other non-traumatic joint disorders (5 sources) Effusion of right knee joint; 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: [Effusion, right knee] Episodic Other non-traumatic joint disorders (5 sources) Instability of right patellofemoral joint; 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: [Other instability, right knee] Episodic Other non-traumatic joint disorders (7 sources) Pain in right knee; 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: [Pain in joint, lower leg] Onset: 3 Episodic Other nutritional; endocrine; and metabolic disorders (20 sources) Body mass index 40+ - severely obese; 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: [Morbid (severe) obesity due to excess calories] Onset: 8 07-27-2017 Chronic Other nutritional; endocrine; and metabolic disorders (1 source) Morbid (severe) obesity due to excess calories; 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: [Obesity, Class III, BMI 40-49.9 (morbid obesity) (HCC)] Onset: 8 Chronic Other nutritional; endocrine; and metabolic disorders (1 source) Weight gain; 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: [Abnormal weight gain] 11-17-2022 Episodic Other nutritional; endocrine; and metabolic disorders (1 source) Abnormal weight gain; 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: [Weight gain] Onset: 3 Episodic Other screening for suspected conditions (not mental disorders or infectious disease) (5 sources) Patient encounter status; 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: [Encounter for screening mammogram for malignant neoplasm of breast] Onset: 3 Episodic Residual codes; unclassified (20 sources) 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 apnea syndrome; 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: [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 apnea (adult) (pediatric)] Onset: 9 04-08-2021 Chronic Residual codes; unclassified (1 source) 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 apnea (adult) (pediatric); 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: [VETO on CPAP] Onset: 2 Chronic Superficial injury; contusion (2 sources) Contusion of multiple sites of lower limb; 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: [Contusion of right lower leg, initial encounter] Onset: 3 02-21-2023 Episodic Thyroid disorders (10 sources) Subclinical hypothyroidism; 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: [Other specified hypothyroidism] Onset: 3 11-29-2022 Chronic Past or Other Problems Problem Classification Problem Date Documented Date Episodic/Chronic Gastritis and duodenitis (20 sources) Bile-induced gastritis; 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: [Other gastritis without bleeding] Onset: 04-08-2021 04-08-2021 Episodic Immunizations and screening for infectious disease (1 source) Encounter for immunization; 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: [Encounter for immunization] Onset: 11-17-2022 Episodic Mycoses (3 sources) Onychomycosis due to dermatophyte ; 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: [Tinea unguium] Onset: 04-08-2021 04-08-2021 Episodic Nonspecific chest pain (20 sources) Atypical chest pain; 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: [Other chest pain] Onset: 04-08-2021 04-09-2021 Episodic Other and unspecified benign neoplasm (20 sources) Polyp of colon; 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: [Polyp of colon] Onset: 07-17-2020 04-08-2021 Episodic Residual codes; unclassified (20 sources) Edema; 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: [Edema, unspecified] Onset: 06-13-2008 06-13-2008 Episodic Spondylosis; intervertebral disc disorders; other back problems (20 sources) Chronic low back pain; 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: [Chronic midline low back pain without sciatica] Onset: 07-31-2015 04-05-2017 Episodic Results Test Name Value Interpretation Reference Range Facil ity Vital Signs Date Time Vital Sign Value Performing Clinician Dexter martinez 01-27-2023 13:09-0500 Body weight 117.94 kg Raffaele Mustafa MD Work Phone: [facility] 11-17-2022 16:58-0400 Body height 157.5 cm Verito Older EGG SMELLER.[facility] Work Phone: [facility] 11-17-2022 16:58-0400 Body weight 118.39 kg Verito Older EGG SMELLER.[facility] Work Phone: [facility] 11-17-2022 16:58-0400 Diastolic blood pressure 74 mm[Hg] Verito Older 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 Work Phone: [facility] 11-17-2022 16:58-0400 Heart rate 72 /min Verito Older EGG SMELLER.[facility] Work Phone: [facility] 11-17-2022 16:58-0400 Respiratory rate 20 /min Verito Older EGG SMELLER.[facility] Work Phone: [facility] 11-17-2022 16:58-0400 SaO2% (BldA) [Mass fraction] 98 % Verito Older 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 Work Phone: [facility] 11-17-2022 16:58-0400 Systolic blood pressure 106 mm[Hg] Verito Older EGG SMELLER.[facility] Work Phone: [facility] Encounters Encounter Date Encounter Type Care Provider Facility Start: 02-25-2023 Telephone encounter Raffaele Mustafa MD Work Phone: [facility] Procedures Date Procedure Procedure Detail Performing Clinician Start: 01-27-2023 Lipid 1996 panel - S leda or Plasma Selwyn Hyatt MD Work Phone: Start: 12-03-2022 Us retroperitoneal r eal time w/image complete Verito Older 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 Work Phone: Start: 11-17-2022 INFLUENZA VACCINE, A GE 6 MO - 64 YR, QUADRIVALENT (AFLURIA, FLULAVAL, FLUZONE) Verito Older 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 Work Phone: Start: 04-08-2021 Adult depression scr eening assessment Sam Saunders MD Work Phone: Start: 07-17-2020 Colonoscopy Sam Lopez MD Work Phone: Start: 05-27-2020 Lipid 1996 panel - S leda or Plasma Stephanie George PA-C Work Phone: Plan of Treatment Date Care Activity Detail Author Start: 11-17-2032 Urine microalbumin profile [facility] Start: 01-28-2028 Lipid 1996 panel - S leda or Plasma Lipid Screening [facility] Start: 01-28-2028 Lipid panel Lipid Screening [facility] Start: 11-25-2025 Diabetes Screening Diabetes Screenin g [facility] Start: 07-17-2025 Colonoscopy COLONOSCOPY [facility] Start: 07-17-2025 COLORECTAL CANCER SCREENING COLORECTAL CANCER SCREENING [facility] Start: 07-17-2025 Screening for malign ant neoplasm of colon [facility] Start: 05-27-2025 Lipid 1996 panel - S leda or Plasma Lipid Screening [facility] Start: 05-27-2025 LIPID SCREEN LIPID SCREEN [facility] Start: 03-20-2024 DIABETES SCREEN DIABETES SCREEN [facility] Start: 01-28-2024 Creatinine measurement Serum Creatin ine [facility] Start: 01-28-2024 Serum Creatinine Serum Creatinine Cl [facility] Start: 11-26-2023 Serum Creatinine Serum Creatinine Cl [facility] Start: 11-18-2023 ANNUAL PCP TEAM FOUNDATION DRILL OPERATOR BRIAN DISEASE VISIT ANNUAL PCP TEAM CHRONIC DISEASE VISIT [facility] Start: 11-18-2023 COVID-19 VACCINE (#1) COVID-19 VACCI NE (#1) [facility] Immunizations Immunization Date Immunization Notes Care Provider Fa cility 11-17-2022 influenza, injectabl e, quadrivalent, contains preservative Verito Older 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 Work Phone: [facility] 11-17-2022 tetanus toxoid, redu mamie diphtheria toxoid, and acellular pertussis vaccine, adsorbed Verito Older 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 Work Phone: [facility] 10-08-2021 pneumococcal (PCV20) vaccine, 20 valent (PREVNAR 20) Selwyn Hyatt MD Work Phone: [facility] Work Phone: 12-19-2019 influenza, seasonal, injectable, preservative free Sam Saunders MD Work Phone: [facility] Work Phone: 01-15-2019 influenza, seasonal, injectable, preservative free Sam Saunders MD Work Phone: [facility] Work Phone: 01-12-2019 influenza, seasonal, injectable Sam Saunders MD Work Phone: [facility] 12-03-2016 influenza, injectabl e, quadrivalent, contains preservative Sam Saunders MD Work Phone: [facility] Work Phone: Payers Date Payer Category Payer Medicaid [id number] 2017 Medicaid 2017 Medicaid [facility] MEDIC AID [facility] MEDICAID [id number] 2017-Present [phone] [address] [place] [address] Medicaid [id number] 2017 Medicaid [id number] Social History Date Type Detail Facility Start: 04-08-2021 End: 11-17-2022 Tobacco smoking status NHIS Ex-smoker [facility] End: 05-30-2009 History of tobacco use Current smoker [facility] End: 05-30-2009 History of tobacco use Cigarette Smoker [facility] Start: 04-09-2021 End: 10-26-2021 Alcohol intake Current non-drinker of alcohol (finding) [facility] Start: 04-08-2021 History SDOH Alcohol Frequency 2 [facility] Start: 04-08-2021 History SDOH Alcohol Std Drinks 1 [facility] Start: 04-08-2021 History SDOH Alcohol Comment rare 1 drink [facility] Start: 04-08-2021 History SDOH Physica l Activity DPW 7 [facility] Start: 04-08-2021 History SDOH Physica l Activity MPS 3 [facility] Start: 04-08-2021 Tobacco Comment started age 16. [facility] Start: 1965 Sex Assigned At Not on file C [facility] Start: 04-08-2021 End: 11-11-2022 Cigarettes smoked current (pack per day) - Reported 1 [facility] Work Phone: Start: 04-08-2021 End: 11-17-2022 Tobacco use and exposure Smokeless tobacco non-user [facility] Work Phone: Start: 10-16-2021 End: 10-26-2021 Exposure to SARS-CoV-2 (event) Not sure [facility] Start: 10-26-2021 End: 11-11-2022 Tobacco use panel [facility] Work Phone: National Score (1-10 0), lower number is lower risk 92 [facility] Work Phone: How often to you hav e a drink containing alcohol? Monthly or less [facility] Work Phone: How many standard drinks containing alcohol do you have on a typical day? 1 or 2 [facility] Work Phone: How often do you hav e 6 or more drinks on 1 occasion? Never [facility] Work Phone: Start: 11-17-2022 End: 02-21-2023 Alcohol intake Ex-drinker (finding) [facility] Start: 11-17-2022 Tobacco Comment started age 16 [facility] Clinical Notes 2010 to 02-25-2023 Telephone Encounter - Raffaele Mustafa MD - 02/25/2023 2:29 PM ESTTelephone Encounter - Raffaele Mustafa MD - 02/25/2023 11:18 AM EST Note Date & Type Note Facility 02-25-2023 Miscellaneous Notes Formattin g of this note might be different from the original. I called patient and clarified her questions that she had sent through [employer]. Will repeat labs in April. documented in this encounter [facility] 02-25-2023 Miscellaneous Notes Formattin g of this note might be different from the original. Attempted to call the patient to clarify her questions. No answer. Left brief VM. documented in this encounter [facility] documented in this encounter [facility]12-11-2023 NoteHNO ID: [id number] Author: Arcelia Redman RT(R) Service: ? Author Type: Sql Server Developer Type: Progress Notes Filed: 02/21/2023 4:21 PM Note Text: Radiology Service Progress Note PATIENT NAME: Theodora Gant DATE OF SERVICE: February 21, 2023 TIME: 4:09 PM PATIENT IDENTITY VERIFICATION COMPLETED USING TWO (2) IDENTIFIERS: Name and Date of confirmed by patient verbally. FALL SCREENING: Has the patient had 2 falls in the last year or 1 fall with injury or currently using an Ambulatory Assistive Device (Walker, Cane, Wheelchair, Crutches, etc.)? No PATIENT GENDER DATA: Female. status: : No status: NO. PATIENT RELEVANT IMPLANT DATA REVIEWED: Yes RADIOLOGY DEPARTMENT: General X-ray: Exam(s) Completed: Lower Extremity X-Ray(s): Tibia Fibula, Right PERIPHERAL IV DATA: Not applicable SIGNED BY: RT Makenna(R) February 21, 2023 4:09 [facility]12-11-2023 NoteHNO ID: [id number] Author: Arcelia Redman RT(R) Service: ? Author Type: Sql Server Developer Type: Progress Notes Filed: 02/21/2023 2:21 PM Note Text: Radiology Service Progress Note PATIENT NAME: Theodora Gant DATE OF SERVICE: February 21, 2023 TIME: 1:57 PM PATIENT IDENTITY VERIFICATION COMPLETED USING TWO (2) IDENTIFIERS: Name and Date of confirmed by patient verbally. FALL SCREENING: Has the patient had 2 falls in the last year or 1 fall with injury or currently using an Ambulatory Assistive Device (Walker, Cane, Wheelchair, Crutches, etc.)? No PATIENT GENDER DATA: Female. status: : No status: NO. PATIENT RELEVANT IMPLANT DATA REVIEWED: Yes RADIOLOGY DEPARTMENT: General X-ray: Exam(s) Completed: Lower Extremity X-Ray(s): Knee, AP / Lat / Tunne / Merchant Right PERIPHERAL IV DATA: Not applicable SIGNED BY: Arcelia Redman RT(R) February 21, 2023 1:57 [facility]11-16-2023 Instructions* Patient Instructions* Raffaele Mustafa MD - 01/27/2023 1:44 PM EST Chronic Kidney Disease -We will check a kidney vascular ultrasound to look for blood supply to your kidney since one is small. -We will check your urine for protein, blood, or signs of inflammation. Early kidney disease. We will need more work up to fully define this. Can keep taking the diuretics for now. We may need a repeat round of lab testing depending on what we find on the testing from today. [facility] NoteHNO ID: [id number] Author: Raffaele Musatfa MD Service: ? Author Type: Physician Type: Progress Notes Filed: 01/27/2023 2:09 PM Note Text: [facility] SERVICE DATE: 01/27/2023 SERVICE TIME: 1:46 PM REASON FOR CONSULT: I am asked to see this patient in consultation for my opinion regarding Chronic Kidney Disease. My recommendations will be communicated by way of shared medical record, fax, or mail. REQUESTING PHYSICIAN: Verito Broderick APRN.OFFSET LITHOGRAPHIC PRESS SETTER PRIMARY CARE PHYSICIAN: Sam Saunders MD CHIEF COMPLAINT: Swelling HPI: Ms. Gant is a 58 year old female with bilateral carpal tunnel, obesity, GERD who presents for chronic kidney disease. Patient's Cr has typically run 1.0 at baseline but was noted to increase to 1.3 in November on two checks this year. No recent urine studies but was bland in 2016. Did have KBUS done which showed smaller sized kidneys, mild right renal atrophy and rt cortical thinning present. She also reports chronic issues with edema. She is on lasix 40 BID for this, but had recent addition of spironolactone. Follows with cardiology for atrial fibrillation. She thinks her entire body is filling up with fluid. She reports recent decreased appetite but continued weight gain. Albumin has been normal as well as total protein. She takes chronic PPI. Reports her stomach is torn up . No history of diabetes. She has a smoking history. Has seen blood in her urine within the last year, intermittently. Tinged red. No known history of kidney stones. NSAIDS:occasionally for knee pain. Elevated Creatinine Duration (when): unclear Location (where): kidneys Severity (ex: creat 4.5, BP 200/100): Cr 1.3 Quality (ex: sharp, dull): unclear Context (ex: activity at onset or related to condition): rt renal atrophy. Timing (ex: continuous, intermittent): chronic Modifying factors (ex: medications, interventions): None Associated signs AND symptoms (ex: edema, SOB): swelling PAST MEDICAL HISTORY: PAST MEDICAL HISTORY Diagnosis Date Asthma 06/13/2008 Atypical chest pain 01/2019 heart cath normal Bile-induced gastritis 04/08/2021 Calcium deposits in tendon and bursa right knee Chronic cholecystitis 07/22/2020 Chronic midline low back pain without sciatica 07/31/2015 Colon polyp 07/17/2020 Dermatophytosis of the body Edema 06/13/2008 GERD (gastroesophageal reflux disease) 07/29/2010 Infectious mononucleosis Irregular menstrual cycle Obesity, Class III, BMI 40-49.9 (morbid obesity) ([facility]) 07/27/2017 Tobacco use disorder Unspecified hearing loss left ear - wears hearing aid Unspecified hypothyroidism PAST SURGICAL HISTORY: PAST SURGICAL HISTORY Procedure Laterality Date COLONOSCOPY SCREENING 07/17/2020 EGD 07/17/2020 LAPS SURG CHOLECYSTECTOMY W/CHOLANGIOGRAPHY 07/22/2020 [facility] LEFT HEART CATH,PERCUTANEOUS 01/23/2019 L AND R heart catheterization vamshi. FAMILY HISTORY: FAMILY HISTORY Problem Relation Age of Onset Diabetes Maternal Grandmother Hypertension Brother Hypertension Sister Hypertension Mother Hypertension Father Seizures Sister Seizures Brother Cancer Father brain SOCIAL HISTORY: Social History Tobacco Use Smoking status: Former Packs/day: 1.00 Years: 15.00 Additional pack years: 0.00 Total pack years: 15.00 Types: Cigarettes Quit date: 05/30/2009 Years since quittin.6 Smokeless tobacco: Never Tobacco comments: started age 16 Vaping Use Vaping Use: Never used Substance Use Topics Alcohol use: Not Currently Drug use: Never MEDICATIONS: EYE ITCH RELIEF 0.025 % (0.035 %) ophthalmic solution instill 1 drop into both eyes twice a day if needed dicyclomine (BENTYL) 10 mg capsule 10 mg. fluticasone (FLONASE) 50 mcg/actuation nasal spray instill 2 sprays into each nostril once daily at bedtime fluticasone (FLOVENT HFA) 220 mcg/actuation inhaler Inhale 1 Puff as instructed two times a day. Shake well before use. Rinse mouth after use. albuterol HFA (PROAIR HFA) 90 mcg/actuation inhaler Inhale 2 Puffs as instructed every 4 hours as needed. levothyroxine (SYNTHROID) 25 mcg tablet Take 1 tablet by mouth once daily. Take on empty stomach. For thyroid. pantoprazole DR (PROTONIX) 40 mg tablet Take 1 tablet by mouth twice daily. Take on empty stomach, 1/2 hr before meal. omeprazole (PRILOSEC) 40 mg capsule Take 1 capsule by mouth once daily. hydrocortisone 2.5 % cream Apply 1 application to affected area twice daily as needed (Apply sparingly to rash of hands, arms, legs for 1 week.). colestipol (COLESTID) 1 gram tablet Take 1 g by mouth once daily. nitroglycerin sublingual (NITROQUICK) 0.4 mg SL tablet 0.4 mg. aspirin, enteric coated (ASPIRIN, ENTERIC COATED) 81 mg EC tablet Take 1 tablet by mouth once daily. atorvastatin (LIPITOR) 20 mg tablet Take 20 mg by mouth once daily. carve (more content not included)...[facility]11-16-2023 History of Present illness Narrative* Raffaele Mustafa MD - 01/27/2023 10:40 AM EST [facility] SERVICE DATE: 01/27/2023 SERVICE TIME: 1:46 PM REASON FOR CONSULT: I am asked to see this patient in consultation for my opinion regarding ChronicKidney Disease. My recommendations will be communicated by way of shared medical record, fax, or mail. REQUESTING PHYSICIAN: Verito Broderick APRN.OFFSET LITHOGRAPHIC PRESS SETTER PRIMARY CARE PHYSICIAN: Sam Saunders MD CHIEF COMPLAINT: Swelling HPI: Ms. Gant is a 58 year old female with bilateral carpal tunnel, obesity, GERD who presents for chronic kidney disease. Patient's Cr has typically run 1.0 at baseline but was noted to increase to 1.3 in November on twochecks this year. No recent urine studies but was bland in 2016. Did have KBUS done which showed smaller sized kidneys, mild right renal atrophy and rt cortical thinning present. She also reports chronic issues with edema. She is on lasix 40 BID for this, but had recent addition of spironolactone. Follows with cardiology for atrial fibrillation. She thinks her entire body is filling up with fluid. She reports recent decreased appetite but continued weight gain. Albumin has been normal as well as total protein. She takes chronic PPI. Reports her stomach is torn up . No history of diabetes. She has a smoking history. Has seen blood in her urine within the last year, intermittently. Tinged red. No known history of kidney stones. NSAIDS:occasionally for knee pain. Elevated Creatinine Duration (when): unclear Location (where): kidneys Severity (ex: creat 4.5, BP 200/100): Cr 1.3 Quality (ex: sharp, dull): unclear Context (ex: activity at onset or related to condition): rt renal atrophy. Timing (ex: continuous, intermittent): chronic Modifying factors (ex: medications, interventions): None Associated signs & symptoms (ex: edema, SOB): swelling PAST MEDICAL HISTORY: PAST MEDICAL HISTORY Diagnosis Date Asthma 06/13/2008 Atypical chest pain 01/2019 heart cath normal Bile-induced gastritis 04/08/2021 Calcium deposits in tendon and bursa right knee Chronic cholecystitis 07/22/2020 Chronic midline low back pain without sciatica 07/31/2015 Colon polyp 07/17/2020 Dermatophytosis of the body Edema 06/13/2008 GERD (gastroesophageal reflux disease) 07/29/2010 Infectious mononucleosis Irregular menstrual cycle Obesity, Class III, BMI 40-49.9 (morbid obesity) (FORM[facility]LY [facility]) 07/27/2017 Tobacco use disorder Unspecified hearing loss left ear - wears hearing aid Unspecified hypothyroidism PAST SURGICAL HISTORY: PAST SURGICAL HISTORY Procedure Laterality Date COLONOSCOPY SCREENING 07/17/2020 EGD 07/17/2020 LAPS SURG CHOLECYSTECTOMY W/CHOLANGIOGRAPHY 07/22/2020 [facility] LEFT HEART CATH,PERCUTANEOUS 01/23/2019 L & R heart catheterization vamshi. FAMILY HISTORY: FAMILY HISTORY Problem Relation Age of Onset Diabetes Maternal Grandmother Hypertension Brother Hypertension Sister Hypertension Mother Hypertension Father Seizures Sister Seizures Brother Cancer Father brain SOCIAL HISTORY: Social History Tobacco Use Smoking status: Former Packs/day: 1.00 Years: 15.00 Additional pack years: 0.00 Total pack years: 15.00 Types: Cigarettes Quit date: 05/30/2009 Years since quittin.6 Smokeless tobacco: Never Tobacco comments: started age 16 Vaping Use Vaping Use: Never used Substance Use Topics Alcohol use: Not Currently Drug use: Never MEDICATIONS: EYE ITCH RELIEF 0.025 % (0.035 %) ophthalmic solution instill 1 drop into both eyes twice a day if needed dicyclomine (BENTYL) 10 mg capsule 10 mg. fluticasone (FLONASE) 50 mcg/actuation nasal spray instill 2 sprays into each nostril once daily atbedtime fluticasone (FLOVENT HFA) 220 mcg/actuation inhaler Inhale 1 Puff as instructed two times a day. Shake well before use. Rinse mouth after use. albuterol HFA (PROAIR HFA) 90 mcg/actuation inhaler Inhale 2 Puffs as instructed every 4 hours as needed. levothyroxine (SYNTHROID) 25 mcg tablet Take 1 tablet by mouth once daily. Take on empty stomach. For thyroid. pantoprazole DR (PROTONIX) 40 mg tablet Take 1 tablet by mouth twice daily. Take on empty stomach, 1/2 hr before meal. omeprazole (PRILOSEC) 40 mg capsule Take 1 capsule by mouth once daily. hydrocortisone 2.5 % cream Apply 1 application to affected area twice daily as needed (Apply sparingly to rash of hands, arms, legs for 1 week.). colestipol (COLESTID) 1 gram tablet Take 1 g by mouth once daily. nitroglycerin sublingual (NITROQUICK) 0.4 mg SL tablet 0.4 mg. aspirin, enteric coated (ASPIRIN, ENTERIC COATED) 81 mg EC tablet Take 1 tablet by mouth once daily. atorvastatin (LIPITOR) 20 mg tablet Take 20 mg by mouth once daily. carvedilol (COREG) 3.125 mg tablet Take 1 tablet by mouth once daily. furosemide (LASIX) 20 mg tablet Take 1 tablet by mouth once daily. potassium chloride SR (MICRO-K) 10 mEq CR capsule Take 1 capsule by mouth once daily. CPAP AutoPAP 5-15 CM H2O with flex/EPR option, ramp, mask of choice, HUMIDITY. LIFETIME SUPPLIES. DME: [facility] spironolactone (ALDACTONE) 25 mg tablet Take 1 tablet by mouth every afternoon. olopatadine (PATANOL) 0.1 % ophthalmic solution ALLERGIES: ALLERGIES Allergen Reactions Seasonal Allergies Intolerance REVIEW OF SYSTEMS: Constitutional: No complaints Eyes: No complaints Ear, Nose, and Throat: No complaints Cardiovascular: Afib, edema Respiratory: No complaints Gastrointestinal: severe reflux Genitourinary: hematuria Musculoskeletal: No complaints Skin: No complaints Neurological: No complaints Hematologic/Lymph:No complaints PHYSICAL EXAM: Wt 117.9 kg (260 lb) LMP (LMP Unknown) BMI 47.54 kg/m BP - standardized method Pulse 1 BP #1: 123/85 Pulse #1: 55 beats/min 2 BP #2 : 124/85 Pulse #2 : 55 beats/min 3 BP #3 : 130/87 Pulse #3 : 57 beats/min Average Average BP: 126/86 Average Pulse: 56 beats/min Orthostatic vitals Supine Sitting Standing Standing BP : 126/86 Standing pulse : 63 BP cuff location BP cuff location: Left lower arm BP cuff size BP cuff size: regular adult Comments for BP values First BP (right) First BP (Right): 125/92 First BP (left) First BP (Left): 130/80 Constitutional: No acute distress, Responsive, Overweight, and ambulates easily Eyes: Conjunctiva clear, PERRL, and wears glasses Ear, Nose, and Throat: Hearing normal, Lips normal, and Poor dentition Neck:Trachea midline Cardiovascular:No peripheral edema Regular rate and ryhthm, normal S1 and S2, no murmurs, rubs, or gallops Respiratory: Normal respiratory effort. Lungs clear bilaterally. Abdomen:Soft, non-tender, non-distended. Musculoskeletal: No clubbing or cyanosis of digits. and Normocephalic. Neurologic:CN II-XII intact and Normal sensation Psychiatric: Alert and oriented x self, place, time, and setting Normal mood/affect DATA: Diagnostic tests reviewed for today's visit: BMP Latest Ref Rng & Units 11/25/2022 11/17/2022 03/20/2021 GLUCOSE 74 - 99 mg/dL 88 90 89 BUN 7 - 21 mg/dL 16 20 10 CREATININE 0.58 - 0.96 mg/dL 1.28(H) 1.30(H) 0.98(H) SODIUM 136 - 144 mmol/L 140 140 140 POTASSIUM 3.7 - 5.1 mmol/L 4.9 4.7 3.9 CHLORIDE 97 - 105 mmol/L 103 103 103 CO2 22 - 30 mmol/L 26 26 25 ANION GAP 9 - 18 mmol/L 11 11 12 CALCIUM, TOTAL 8.5 - 10.2 mg/dL 10.1 9.7 9.5 eGFR >=60 mL/min/1.73m 49(L) 48(L) 59 EGFR- - - - >60 EGFR-ALL OTHER RACES . - - 59 Hemoglobin (g/dL) Date Value 11/17/2022 14.2 03/20/2021 13.5 Hematocrit (%) Date Value 11/17/2022 43.2 03/20/2021 41.1 WBC (k/uL) Date Value 11/17/2022 7.93 03/20/2021 5.43 Platelet Count (k/uL) Date Value 11/17/2022 187 03/20/2021 187 Specific [place], Ur Date Value Ref Range Status 10/16/2015 1.010 1.005 - 1.030 Final Glucose, Urine Date Value Ref Range Status 10/16/2015 neg Neg mg/dL Final Bilirubin, Urine Date Value Ref Range Status 10/16/2015 neg Neg Final Ketones, Urine Date Value Ref Range Status 10/16/2015 Neg Neg Final Hemoglobin/Blood,Ur Date Value Ref Range Status 10/16/2015 Neg Neg Final Protein, Urine Date Value Ref Range Status 10/16/2015 Neg Neg mg/dL Final Urobilinogen, Urine Date Value Ref Range Status 10/16/2015 Normal Normal (<1.1) EU Final Nitrites Date Value Ref Range Status 10/16/2015 Neg Neg Final Leukocytes Date Value Ref Range Status 10/16/2015 Neg Neg Final KBUS 11/2022 RESULT: Right Kidney: -Renal length: 8.3 cm -Parenchyma: Normal parenchymal echogenicity. Diffuse parenchymal thinning present. -Collecting system: No hydronephrosis. -Calculus: No echogenic, shadowing calculus. -Lesion: None. Left Kidney: -Renal length: 8.8 cm -Parenchyma: Normal parenchymal echogenicity. Normal parenchymal thickness. -Collecting system: No hydronephrosis. -Calculus: No echogenic, shadowing calculus. -Lesion: None. Bladder: Normal sonographic appearance. ASSESSMENT: 58 year old female with bilateral carpal tunnel, obesity, GERD who presents for elevated creatinine. Chronic Kidney Disease Stage 3 Elevated Cr Rt Renal Atrophy One time Cr elevation to 1.3 from prior baseline 1.0. Patient has risk factor of Obesity (BMI 47) and PPI. KBUS with smaller sized kidneys and rt kidney with small size and thinned parenchyma. Will need vascular assessment. Will need proteinuria assessment. GERD: On Chronic PPI, actually on pantoprazole and omeprazole. Reports symptoms recur and are debilitating if she is on either. Bilateral Carpal Tunnel: Outside Echo report reviewed without any other findings to line up with amyloid. Does have Afib. Kidneys are not enlarged. Blood Pressure: Ok today. On Lasix 40 BID and Spironolactone. Volume Status: Patient describes bothersome fluid accumulation. Says her whole body is filling up with fluid. However on exam, she has no edema today. I also note that she has normal albumin and serum protein. I do not see major kidney input to fluid balance issues. PLAN: -Check RFP, Lipid Panel, UA w/ micro, UACR, UPCR today. -Will also order Renal Duplex US given unilateral parenchymal thinning. -Ok to continue diuretics for now, will defer to cardiology. -Will leave PPIs alone because patient reports she is debilitated by her symptoms. -Follow up in 3 months. Total time, including reviewing extensive medical records prior to patient visit, related to ongoing management of this patient, history, physical, counseling in detail with family as outlined above,and coordination of care = 63 min SIGNATURE: Raffaele Mustafa MD PATIENT NAME: Theodora Gant DATE: January 27, 2023 TIME: 1:46 PM CC: REFERRING PROVIDER: Verito Broderick APRN.[facility] PRIMARY CARE PHYSICIAN: Sam Saunders MD [facility]* Diagnosis Stage 3a chronic kidney disease (HCC)- Primary Elevated serum creatinine Other nonspecific findings on examination of blood Right renal atrophy Renal sclerosis, unspecified Obesity, Class III, BMI 40-49.9 (morbid obesity) (HCC) Morbid obesity BMI 45.0-49.9, adult (HCC) Body Mass Index 45.0-49.9, adult Gastroesophageal reflux disease without esophagitis Esophageal reflux documented in this encounter [facility] Reason for referral (narrative)* Outpatient Procedure (Routine) - Authorized Specialty Diagnoses / Procedures Referred By Contac t Referred To Contact [facility] [place] Diagnoses Stage 3a chronic kidney disease (HCC) Procedures US RENAL ARTERY ALYCIA VAS LAB DUP-SCAN ARTL MARISSA ABDL/PEL/SCROT&/RPR ORGN COM Raffaele Mustafa MD [address] [place], [place] [id number] [facility] [place] [address] Referral ID Status Reason Start Date Expiration Date Visits Requested Visits Authorized [id number] Authorized Auto-Generat ed Referral 3 01/27/2024 1 1 [facility]10-[facility]23 Miscellaneous Notes* Telephone Encounter - Candelaria Kat LPN - 12/27/2022 2:43 PM EDT Patient phones requesting refills as follows: Patient is questioning if she could increase dose of diclofenac? She is using OTC Tylenol arthritisin between dosing. Requested Prescriptions Pending Prescriptions Disp Refills diclofenac, EC, (VOLTAREN) 75 mg EC tablet [Pharmacy Med Name: DICLOFENAC SOD EC 75 MG TAB] 60 tablet 0 Sig: take 1 tablet by mouth twice a day Please review and advise. Candelaria Kat LPN [facility]23 NoteHNO ID: [id number] Author: Courtney Stallworth RT(R) Service: Radiology Author Type: Technologist Type: Progress Notes Filed: 12/03/2022 2:18 PM Note Text: Radiology Service Progress Note PATIENT NAME: Theodora Gant DATE OF SERVICE: December 03, 2022 TIME: 2:18 PM PATIENT IDENTITY VERIFICATION COMPLETED USING TWO (2) IDENTIFIERS: Name and Date of confirmed by patient verbally. FALL SCREENING: Has the patient had 2 falls in the last year or 1 fall with injury or currently using an Ambulatory Assistive Device (Walker, Cane, Wheelchair, Crutches, etc.)? No PATIENT GENDER DATA: female PATIENT RELEVANT IMPLANT DATA REVIEWED: Not Applicable RADIOLOGY DEPARTMENT: Ultrasound PERIPHERAL IV DATA: Not applicable SIGNED BY: Courtney Stallworth Rdms December 03, 2022 2:18 [facility]09-22-2023 History of Present illness Narrative* Courtney Stallworth RT(R) - 12/03/2022 1:45 PM EDT Radiology Service Progress Note PATIENT NAME: Theodora Gant DATE OF SERVICE: December 03, 2022 TIME: 2:18 PM PATIENT IDENTITY VERIFICATION COMPLETED USING TWO (2) IDENTIFIERS: Name and Date of confirmedby patient verbally. FALL SCREENING: Has the patient had 2 falls in the last year or 1 fall with injury or currently using an Ambulatory Assistive Device (Walker, Cane, Wheelchair, Crutches, etc.)? No PATIENT GENDER DATA: female PATIENT RELEVANT IMPLANT DATA REVIEWED: Not Applicable RADIOLOGY DEPARTMENT: Ultrasound PERIPHERAL IV DATA: Not applicable SIGNED BY: Courtney Stallworth Rdms December 03, 2022 2:18 PM documented in [facility]23 NoteHNO ID: [id number] Author: Verito Broderick APRN.[employer] Service: ? Author Type: Nurse Practitioner Type: Progress Notes Filed: 11/17/2022 5:53 PM Note Text: CC: Patient presents with: Physical HPI Theodora Gant is a 57 year old female who presents today for above. Asthma and VETO: managed by pulmonology. Asthma stable per patient and wearing CPAP nightly. GERD and IBS: managed by gastroenterology. Patient taking Prilosec and Protonix despite recommendations against this by her GI. Still has severe reflux and very poor appetite. States I'm supposed to have more tests done on my hernia but haven't heard anything yet. Weight gain- despite not eating more than a few bites every day. HTN and CAD: managed by cardiology. Chronic knee pain: managed by orthopedics Exercise: has limited mobility and can not participate in aerobic exercise. REVIEW OF SYSTEMS GENERAL: Negative for malaise, significant weight loss, fever, night sweats RESPIRATORY: Negative for cough, wheezing and shortness of breath CARDIOVASCULAR: Negative for chest pain, leg swelling and palpitations PAST MEDICAL HISTORY Diagnosis Date Asthma 06/13/2008 Atypical chest pain 01/2019 heart cath normal Bile-induced gastritis 04/08/2021 Calcium deposits in tendon and bursa right knee Chronic cholecystitis 07/22/2020 Chronic midline low back pain without sciatica 07/31/2015 Colon polyp 07/17/2020 Dermatophytosis of the body Edema 06/13/2008 GERD (gastroesophageal reflux disease) 07/29/2010 Infectious mononucleosis Irregular menstrual cycle Obesity, Class III, BMI 40-49.9 (morbid obesity) (FORM[facility]LY [facility]) 07/27/2017 Tobacco use disorder Unspecified hearing loss left ear - wears hearing aid Unspecified hypothyroidism PAST SURGICAL HISTORY Procedure Laterality Date COLONOSCOPY SCREENING 07/17/2020 EGD 07/17/2020 LAPS SURG CHOLECYSTECTOMY W/CHOLANGIOGRAPHY 07/22/2020 [facility] LEFT HEART CATH,PERCUTANEOUS 01/23/2019 L AND R heart catheterization vamshi. ALLERGIES Seasonal Allergies MEDICATIONS fluticasone (FLOVENT) 110 mcg/actuation inhaler Inhale 2 Puffs as instructed twice daily. Shake well before use. Rinse mouth after use. fluticasone (FLONASE) 50 mcg/actuation nasal spray Use 2 Sprays in each nostril daily at bedtime. albuterol HFA (PROAIR HFA) 90 mcg/actuation inhaler Inhale 2 Puffs as instructed every 4 hours as needed. hydrocortisone 2.5 % cream Apply 1 application to affected area twice daily as needed (Apply sparingly to rash of hands, arms, legs for [address] (PROTONIX) 40 mg tablet Take 1 tablet by mouth daily before breakfast. Take on empty stomach, 1/2 hr before meal. colestipol (COLESTID) 1 gram tablet Take 1 g by mouth once daily. albuterol HFA (PROVENTIL HFA, VENTOLIN HFA) 90 mcg/actuation inhaler Q4H nitroglycerin sublingual (NITROQUICK) 0.4 mg SL tablet 0.4 mg. aspirin, enteric coated (ASPIRIN, ENTERIC COATED) 81 mg EC tablet Take 1 tablet by mouth once daily. atorvastatin (LIPITOR) 20 mg tablet Take 20 mg by mouth once daily. carvedilol (COREG) 3.125 mg tablet Take 1 tablet by mouth once daily. furosemide (LASIX) 20 mg tablet Take 1 tablet by mouth once daily. potassium chloride SR (MICRO-K) 10 mEq CR capsule Take 1 capsule by mouth once daily. CPAP AutoPAP 5-15 CM H2O with flex/EPR option, ramp, mask of choice, HUMIDITY. LIFETIME SUPPLIES. DME: [facility] FAMILY HISTORY Problem Relation Age of Onset Diabetes Maternal Grandmother Hypertension Brother Hypertension Sister Hypertension Mother Hypertension Father Seizures Sister Seizures Brother Cancer Father brain Social History Tobacco Use Smoking status: Former Packs/day: 1.00 Years: 15.00 Additional pack years: 0.00 Total pack years: 15.00 Types: Cigarettes Quit date: 05/30/2009 Years since quittin.4 Smokeless tobacco: Never Tobacco comments: started age 16. Vaping Use Vaping Use: Never used Substance Use Topics Alcohol use: No Comment: rare 1 drink Drug use: Never PHYSICAL EXAM BP 106/74 Pulse 72 Resp 20 Ht 157.5 cm (5' 2.01 ) Wt 118.4 kg (261 lb) LMP (LMP Unknown) SpO2 98% BMI 47.73 kg/m? General Appearance: well appearing, in no acute distress, alert Pysch: affect is anxious Neck: Thyroid normal size and symmetric without palpable nodules, Neck supple, No adenopathy Lungs: Lungs clear to auscultation. No wheezing, rhonchi, rales. Heart: RRR without murmur, gallop, or rubs. No ectopy Health maintenance reviewed with patient: HEPATITIS B(1 of 3 - 3-dose series) Never done COVID-19 VACCINE(1) Never done DTAP,TDAP,TD(1 - Tdap) Never done HPV TESTING Never done MAMMOGRAM Never done PAP TESTING due on 09/22/2009 DEPRESSION ASSESSMENT Never done SERUM CREATININE due on 03/20/2022 HEMOGLOBIN/HEMATOCRIT due on 03/20/2022 INFLUENZA(1) due on 11/12/2022 SHINGRIX VACCINE(1 of 2) due on 04/12 (more content not included)...[facility]09-06-2023 Instructions* Patient Instructions* Verito Broderick APRN.CNP - 11/17/2022 5:27 PM EDT You are due for PAP/HPV and mammogram, please call [phone] to schedule [facility] History of Present illness Narrative* Verito Broderick APRN.CNP - 11/17/2022 5:10 PM EDT CC: Patient presents with: Physical HPI Theodora Gant is a 57 year old female who presents today for above. Asthma and VETO: managed by pulmonology. Asthma stable per patient and wearing CPAP nightly. GERD and IBS: managed by gastroenterology. Patient taking Prilosec and Protonix despite recommendations against this by her GI. Still has severe reflux and very poor appetite. States I'm supposed tohave more tests done on my hernia but haven't heard anything yet. Weight gain- despite not eating more than a few bites every day. HTN and CAD: managed by cardiology. Chronic knee pain: managed by orthopedics Exercise: has limited mobility and can not participate in aerobic exercise. REVIEW OF SYSTEMS GENERAL: Negative for malaise, significant weight loss, fever, night sweats RESPIRATORY: Negative for cough, wheezing and shortness of breath CARDIOVASCULAR: Negative for chest pain, leg swelling and palpitations PAST MEDICAL HISTORY Diagnosis Date Asthma 06/13/2008 Atypical chest pain 01/2019 heart cath normal Bile-induced gastritis 04/08/2021 Calcium deposits in tendon and bursa right knee Chronic cholecystitis 07/22/2020 Chronic midline low back pain without sciatica 07/31/2015 Colon polyp 07/17/2020 Dermatophytosis of the body Edema 06/13/2008 GERD (gastroesophageal reflux disease) 07/29/2010 Infectious mononucleosis Irregular menstrual cycle Obesity, Class III, BMI 40-49.9 (morbid obesity) ([facility]) 07/27/2017 Tobacco use disorder Unspecified hearing loss left ear - wears hearing aid Unspecified hypothyroidism PAST SURGICAL HISTORY Procedure Laterality Date COLONOSCOPY SCREENING 07/17/2020 EGD 07/17/2020 LAPS SURG CHOLECYSTECTOMY W/CHOLANGIOGRAPHY 07/22/2020 [facility] LEFT HEART CATH,PERCUTANEOUS 01/23/2019 L & R heart catheterization vamshi. ALLERGIES Seasonal Allergies MEDICATIONS fluticasone (FLOVENT) 110 mcg/actuation inhaler Inhale 2 Puffs as instructed twice daily. Shake well before use. Rinse mouth after use. fluticasone (FLONASE) 50 mcg/actuation nasal spray Use 2 Sprays in each nostril daily at bedtime. albuterol HFA (PROAIR HFA) 90 mcg/actuation inhaler Inhale 2 Puffs as instructed every 4 hours as needed. hydrocortisone 2.5 % cream Apply 1 application to affected area twice daily as needed (Apply sparingly to rash of hands, arms, legs for [address] (PROTONIX) 40 mg tablet Take 1 tablet by mouth daily before breakfast. Take on empty stomach, 1/2 hr before meal. colestipol (COLESTID) 1 gram tablet Take 1 g by mouth once daily. albuterol HFA (PROVENTIL HFA, VENTOLIN HFA) 90 mcg/actuation inhaler Q4H nitroglycerin sublingual (NITROQUICK) 0.4 mg SL tablet 0.4 mg. aspirin, enteric coated (ASPIRIN, ENTERIC COATED) 81 mg EC tablet Take 1 tablet by mouth once daily. atorvastatin (LIPITOR) 20 mg tablet Take 20 mg by mouth once daily. carvedilol (COREG) 3.125 mg tablet Take 1 tablet by mouth once daily. furosemide (LASIX) 20 mg tablet Take 1 tablet by mouth once daily. potassium chloride SR (MICRO-K) 10 mEq CR capsule Take 1 capsule by mouth once daily. CPAP AutoPAP 5-15 CM H2O with flex/EPR option, ramp, mask of choice, HUMIDITY. LIFETIME SUPPLIES. DME: [facility] FAMILY HISTORY Problem Relation Age of Onset Diabetes Maternal Grandmother Hypertension Brother Hypertension Sister Hypertension Mother Hypertension Father Seizures Sister Seizures Brother Cancer Father brain Social History Tobacco Use Smoking status: Former Packs/day: 1.00 Years: 15.00 Additional pack years: 0.00 Total pack years: 15.00 Types: Cigarettes Quit date: 05/30/2009 Years since quittin.4 Smokeless tobacco: Never Tobacco comments: started age 16. Vaping Use Vaping Use: Never used Substance Use Topics Alcohol use: No Comment: rare 1 drink Drug use: Never PHYSICAL EXAM BP 106/74 Pulse 72 Resp 20 Ht 157.5 cm (5' 2.01 ) Wt 118.4 kg (261 lb) LMP (LMP Unknown) SpO2 98% BMI 47.73 kg/m General Appearance: well appearing, in no acute distress, alert Pysch: affect is anxious Neck: Thyroid normal size and symmetric without palpable nodules, Neck supple, No adenopathy Lungs: Lungs clear to auscultation. No wheezing, rhonchi, rales. Heart: RRR without murmur, gallop, or rubs. No ectopy Health maintenance reviewed with patient: HEPATITIS B(1 of 3 - 3-dose series) Never done COVID-19 VACCINE(1) Never done DTAP,TDAP,TD(1 - Tdap) Never done HPV TESTING Never done MAMMOGRAM Never done PAP TESTING due on 09/22/2009 DEPRESSION ASSESSMENT Never done SERUM CREATININE due on 03/20/2022 HEMOGLOBIN/HEMATOCRIT due on 03/20/2022 INFLUENZA(1) due on 11/12/2022 SHINGRIX VACCINE(1 of 2) due on 04/12/2023 ANNUAL PCP TEAM CHRONIC DISEASE VISIT due on 11/18/2023 DIABETES SCREEN due on 03/20/2024 LIPID SCREEN due on 05/27/2025 COLORECTAL CANCER SCREENING due on 07/17/2025 SPIROMETRY Completed HEPATITIS C SCREENING Completed HIV SCREENING Completed PNEUMOCOCCAL Completed DATA REVIEWED: Most recent labs ASSESSMENT/PLAN: 1. Wellness examination - ICD9: V70.0, ICD10: Z00.00 (primary diagnosis) - Counseled on healthy diet and regular exercise - Calcium intake with supplements or by diet of 1000 mg/day for under 50, 1200- 1500 mg/day for 50+ - Mammogram ordered - exam recommended once yearly - Depression screening tool completed and reviewed with patient. Based on score and interview, patient is not at risk for depression and recommended no further intervention at this time. - Patient was counseled [id number] by myself (the billing provider) for the following immunizations and vaccine components, including side effects: Influenza and TdaP. Patient consents for immunization and understands risks and benefits. A VIS sheet on each immunization was given to the patient. - Follow up for annual exam in one year - COMP METABOLIC PANEL - CBC - HGB A1C - CONSULT TO [facility] for overdue PAP/HPV 2. Weight gain - ICD9: 783.1, ICD10: R63.5 - TSH BLD 3. Uncomplicated asthma, unspecified asthma severity, unspecified whether persistent - ICD9: 493.90, ICD10: J45.909 stable 4. Gastroesophageal reflux disease, unspecified whether esophagitis present - ICD9: 530.81, ICD10: K21.9 Follow-up with GI 5. Irritable bowel syndrome with diarrhea - ICD9: 564.1, ICD10: K58.0 Follow-up with GI 6. Obesity, Class III, BMI 40-49.9 (morbid obesity) (HCC) - ICD9: 278.01, ICD10: E66.01 Increasing. Discussed need and benefit of weight loss 7. VETO on CPAP - ICD9: 327.23, V46.8, ICD10: G47.33 Compliant with CPAP 8. Encounter for immunization - ICD9: V03.89, ICD10: Z23 - INFLUENZA VACCINE, AGE 6 MO - 64 YR, QUADRIVALENT (AFLURIA, FLULAVAL, FLUZONE) - TDAP VACCINE, AGE 7+ YR (ADACEL, BOOSTRIX) Prescription instructions reviewed with patient as applicable. Potential red flag symptoms discussed with the patient. Reviewed appropriate action plan to take if red flag symptoms occur. Patient agreeable to treatment plan. Verito Broderick APRN.CNP documented in this encounterMercer County [facility] Hospital08-23-2023 Miscellaneous Notes* Telephone Encounter - Zaida Prabhakar LPN - 11/03/2022 3:07 PM EDT Spoke with pt and apts booked. Zaida Prabhakar LPN * Telephone Encounter - Verito Broderick APRN.CNP - 11/03/2022 11:48 AM EDT Okay for phone visit now with the expectation that she will have in office visit scheduled for March Verito Broderick APRN.ERICK * Telephone Encounter - Krista Tripathi LPN - 11/02/2022 3:27 PM EDT Last appt: 04/12/22 - pt reports she has been mostly homebound since last December because of knee pain and not being able to walk. Pt is requesting refills on rx. Advised pt she is due for some type of appt. Pt reports she just got approved for disability and it is hard to get out and around. Pt does not have MC. Sent MC information to pt's email. Pt reports she will try to set up [facility] otherwise asking if appt is needed if she can do a phone appt. Please review and advise. Krista Tripathi LPN Patient has been identified by name and date of : Yes Requested Prescriptions Pending Prescriptions Disp Refills fluticasone (FLOVENT) 110 mcg/actuation inhaler 1 Each 0 Sig: Inhale 2 Puffs as instructed twice daily. Shake well before use. Rinse mouth after use. fluticasone (FLONASE) 50 mcg/actuation nasal spray 1 Each 0 Sig: Use 2 Sprays in each nostril daily at bedtime. albuterol HFA (PROAIR HFA) 90 mcg/actuation inhaler 1 Each 0 Sig: Inhale 2 Puffs as instructed every 4 hours as needed. hydrocortisone 2.5 % cream 28 g 5 Sig: Apply 1 application to affected area twice daily as needed (Apply sparingly to rash of hands, arms, legs for 1 week.). RX INSTRUCTIONS: Patient aware RX will be sent to pharmacy. No need to notify patient. Krista Tripathi LPN documented in this encounterMercer County Community Hospital07-31-2023 Miscellaneous Notes* Telephone Encounter - Alana Bland Ma - 10/11/2022 9:50 AM EDT The following approved medication requests have been transmitted electronically. Requested Prescriptions Signed Prescriptions Disp Refills diclofenac, EC, (VOLTAREN) 75 mg EC tablet 60 tablet 0 Sig: Take 1 tablet by mouth twice daily. Authorizing Provider: STEPHANIE GEORGE Ma Left detailed voicemail on patient's phone Rx was sent in. * Telephone Encounter - Jing Joaquin RN - 10/08/2022 3:17 PM EDT Patient phones requesting refills as follows: Requested Prescriptions Pending Prescriptions Disp Refills diclofenac, EC, (VOLTAREN) 75 mg EC tablet 60 tablet 0 Sig: Take 1 tablet by mouth twice daily. Please review and advise. Jing Joaquin RN documented in this encounterMercer County Community Hospital07-28-2023 Miscellaneous Notes* Telephone Encounter - Briana Ang RN - 10/08/2022 4:08 PM EDT Patient has been identified by name and date of : Yes, Briana Ang RN Date 10/08/2022 Time 4:15 pm Patient phones for refill(s): Requested Prescriptions Pending Prescriptions Disp Refills fluticasone (FLOVENT) 110 mcg/actuation inhaler 1 Each 5 Sig: Inhale 2 Puffs as instructed twice daily. Shake well before use. Rinse mouth after use. albuterol HFA (PROAIR HFA) 90 mcg/actuation inhaler 1 Each 5 Sig: Inhale 2 Puffs as instructed every 4 hours as needed. hydrocortisone 2.5 % cream 28 g 5 Sig: Apply 1 application to affected area twice daily as needed (Apply sparingly to rash of hands, arms, legs for 1 week.). fluticasone (FLONASE) 50 mcg/actuation nasal spray 1 Each 6 Sig: Use 2 Sprays in each nostril daily at bedtime. Flonase was discontinued. Patient requests prescription for insurance to cover. Date of last office visit with pcp: 04/12/2022 Future appt: none Last 2 Encounter Wt Readings: Date: Wt: 10/08/2021 112.2 kg (247 lb 6.4 oz) 04/08/2021 114.8 kg (253 lb) Previous labs/tests for medication: Blood Pressure: BUN (mg/dL) Date Value 03/20/2021 10 Sodium (mmol/L) Date Value 03/20/2021 140 Last 1 Encounter BP Readings: Date: BP: 10/08/2021 128/76 Liver Function: ALT (U/L) Date Value 04/05/2017 12 AST (U/L) Date Value 04/05/2017 18 Please advise. Thank you. Briana Ang RN documented in this encounterMercer County Community Hospital07-05-2023 NotePatient Outreach (INTMMN) THEODORA GANT ([id number]) 1965 F CHT Date Time Provider Department 09/15/22 SAM SAUNDERS INTMMN During your visit today, we recorded the following information about you: Allergies As of Date: 09/15/2022 Noted Allergy Reaction SEASONAL ALLERGIES 04/08/2021 5 - Intolerance Date Reviewed: 10/26/2021 Reviewed by: Selwyn Hyatt MD - Fully Assessed Visit Diagnosis:Encounter for screening mammogram for breast cancer [Z12.31] Order(s):[facility] SCREENING [[id number]] Order #: [id number] FUTURE Prescriptions as of 09/20/2022 - diclofenac, EC, (VOLTAREN) 75 mg EC tablet Take 1 tablet by mouth twice daily. - fluticasone (FLOVENT) 110 mcg/actuation inhaler Inhale 2 Puffs as instructed twice daily. Shake well before use. Rinse mouth after use. - albuterol HFA (PROAIR HFA) 90 mcg/actuation inhaler Inhale 2 Puffs as instructed every 4 hours as needed. - pantoprazole DR (PROTONIX) 40 mg tablet Take 1 tablet by mouth daily before breakfast. Take on empty stomach, 1/2 hr before meal. - hydrocortisone 2.5 % cream Apply 1 application to affected area twice daily as needed (Apply sparingly to rash of hands, arms, legs for 1 week.). - colestipol (COLESTID) 1 gram tablet Take 1 g by mouth once daily. - albuterol HFA (PROVENTIL HFA, VENTOLIN HFA) 90 mcg/actuation inhaler Q4H - nitroglycerin sublingual (NITROQUICK) 0.4 mg SL tablet 0.4 mg. - aspirin, enteric coated (ASPIRIN, ENTERIC COATED) 81 mg EC tablet Take 1 tablet by mouth once daily. - atorvastatin (LIPITOR) 20 mg tablet Take 20 mg by mouth once daily. - carvedilol (COREG) 3.125 mg tablet Take 1 tablet by mouth once daily. - furosemide (LASIX) 20 mg tablet Take 1 tablet by mouth once daily. - potassium chloride SR (MICRO-K) 10 mEq CR capsule Take 1 capsule by mouth once daily. - CPAP AutoPAP 5-15 CM H2O with flex/EPR option, ramp, mask of choice, HUMIDITY. LIFETIME SUPPLIES. DME: [facility] Problem List As Of Date 09/15/2022 Noted Resolved Complete spontaneous without mention o*01/01/2005 06/26/2010 Tobacco use disorder [F17.200] 06/13/2008 07/31/2015 Asthma [J45.909] 06/13/2008 Non morbid obesity due to excess calories [E66.*06/13/2008 04/08/2021 EDEMA [R60.9] 06/13/2008 VETO on CPAP [G47.33] 08/20/2008 Pain in joint, lower leg [M25.569] 2010 07/31/2015 GERD (gastroesophageal reflux disease) [K21.9] 07/29/2010 Chronic midline low back pain without sciatica *07/31/2015 Irritable bowel syndrome with diarrhea [K58.0] 08/04/2015 Carpal tunnel syndrome, bilateral [G56.03] 10/16/2015 Obesity, Class III, BMI 40-49.9 (morbid obesity*07/27/2017 Chronic renal impairment, stage 3a (HCC) [N18.3*04/08/2021 Dermatophytosis of nail [B35.1] 04/08/2021 10/08/2021 Atypical chest pain [R07.89] 04/08/2021 Bile-induced gastritis [K29.60] 04/08/2021 Colon polyp [K63.5] 07/17/2020 Encounter Status:Closed by SILAS MENDEZ on 09/20/22[facility] 06-04-2022 Miscellaneous Notes* Telephone Encounter - Grant Newsome Ma - 06/04/2022 4:10 PM EDT New order faxed to DD. * Telephone Encounter - Briana Ang RN - 06/02/2022 4:49 PM EDT Althea with [facility] calls to request a more specific diagnosis for rollator. She reports they need to know the cause of the chronic knee pain. Tried obesity and impaired mobility which neither will cover it. Althea requesting call back at [phone] and follow the prompts select option 1 then option 0 to connect to the pharmacy. If Althea isn't available she said to leave a message with compounding pharmacy technician andthey will get the message to her. Briana Ang RN documented in this encounterMercer County Community Hospital02-07-2023 Miscellaneous Notes* Telephone Encounter - Grant Newsome Ma - 04/20/2022 8:49 AM EST Order re-faxed as requested. Grant Newsome Ma * Telephone Encounter - Krista Tripathi LPN - 04/19/2022 4:45 PM EST Pt had an appt 04/12/22. Pt calls to report an order for a rolling walker was supposed to be faxed to [facility] and pt is being told by DM that they have not received the order. Pt is asking for the order to be re-faxed. Krista Tripathi LPN documented in this encounterMercer County Community Hospital01-30-2023 NoteHNO ID: [id number] Author: Verito Broderick APRN.OFFSET LITHOGRAPHIC PRESS SETTER Service: ? Author Type: Nurse Practitioner Type: Progress Notes Filed: 04/12/2022 3:08 PM Note Text: This Team Access Model visit is a virtual encounter. It required patient-provider interaction for the medical decision making as documented below. Patient agrees to the visit: Yes Patient Location: [place] CC: Patient presents with: Follow Up HPI Theodora Gant is a 57 year old female who is contacted today for a virtual visit. This is an established patient of Dr. Sam Saunders MD. Patient had to change appointment to virtual visit due to chronic right knee pain that is severe. It is affecting her mobility, unable to walk more than 10 feet and now needs assistance with certain ADL's. She was last seen by orthopedics in October, has not followed up as instructed. Taking Voltaren twice a day without much relief. Feels like she could get around better with a walker. Needs new CPAP, split sleep study completed but no enough information. Needs to repeat. Managed by director immunology Dr. Lilly. Taking Protonix daily. If she doesn't take has severe reflux and pain. She is following up with GI for this. Most of her medications are prescribed by non-[facility] specialists including [facility]. REVIEW OF SYSTEMS See HPI PAST MEDICAL HISTORY Diagnosis Date Asthma 06/13/2008 Atypical chest pain 01/2019 heart cath normal Bile-induced gastritis 04/08/2021 Calcium deposits in tendon and bursa right knee Chronic cholecystitis 07/22/2020 Chronic midline low back pain without sciatica 07/31/2015 Colon polyp 07/17/2020 Dermatophytosis of the body Edema 06/13/2008 GERD (gastroesophageal reflux disease) 07/29/2010 Infectious mononucleosis Irregular menstrual cycle Obesity, Class III, BMI 40-49.9 (morbid obesity) (HCC) 07/27/2017 Tobacco use disorder Unspecified hearing loss left ear - wears hearing aid Unspecified hypothyroidism PAST SURGICAL HISTORY Procedure Laterality Date COLONOSCOPY SCREENING 07/17/2020 EGD 07/17/2020 LAPS SURG CHOLECYSTECTOMY W/CHOLANGIOGRAPHY 07/22/2020 [facility] LEFT HEART CATH,PERCUTANEOUS 01/23/2019 L AND R heart catheterization vamshi. ALLERGIES Seasonal Allergies MEDICATIONS diclofenac, EC, (VOLTAREN) 75 mg EC tablet take 1 tablet by mouth twice a day for pain fluticasone (FLOVENT) 110 mcg/actuation inhaler Inhale 2 Puffs as instructed twice daily. Shake well before use. Rinse mouth after use. albuterol HFA (PROAIR HFA) 90 mcg/actuation inhaler Inhale 2 Puffs as instructed every 4 hours as needed. phentermine HCl (PHENTERMINE ORAL) Take by mouth. pantoprazole DR (PROTONIX) 40 mg tablet Take 1 tablet by mouth daily before breakfast. Take on empty stomach, 1/2 hr before meal. hydrocortisone 2.5 % cream Apply 1 application to affected area twice daily as needed (Apply sparingly to rash of hands, arms, legs for 1 week.). colestipol (COLESTID) 1 gram tablet Take 1 g by mouth once daily. albuterol HFA (PROVENTIL HFA, VENTOLIN HFA) 90 mcg/actuation inhaler Q4H nitroglycerin sublingual (NITROQUICK) 0.4 mg SL tablet 0.4 mg. aspirin, enteric coated (ASPIRIN, ENTERIC COATED) 81 mg EC tablet Take 1 tablet by mouth once daily. atorvastatin (LIPITOR) 20 mg tablet Take 20 mg by mouth once daily. carvedilol (COREG) 3.125 mg tablet Take 1 tablet by mouth once daily. furosemide (LASIX) 20 mg tablet Take 1 tablet by mouth once daily. potassium chloride SR (MICRO-K) 10 mEq CR capsule Take 1 capsule by mouth once daily. CPAP AutoPAP 5-15 CM H2O with flex/EPR option, ramp, mask of choice, HUMIDITY. LIFETIME SUPPLIES. DME: [facility] FAMILY HISTORY Problem Relation Age of Onset Diabetes Maternal Grandmother Hypertension Brother Hypertension Sister Hypertension Mother Hypertension Father Seizures Sister Seizures Brother Cancer Father brain Social History Tobacco Use Smoking status: Former Packs/day: 1.00 Years: 15.00 Pack years: 15.00 Types: Cigarettes Quit date: 05/30/2009 Years since quittin.8 Smokeless tobacco: Never Tobacco comments: started age 16. Vaping Use Vaping Use: Never used Substance Use Topics Alcohol use: No Comment: rare 1 drink Drug use: Never EXAM: Deferred physical exam as visit was completed over the phone Patient is speaking in complete sentences without obvious respiratory distress or audible wheezing. DATA REVIEWED: Most recent labs HEPATITIS B(1 of 3 - 3-dose series) Never done COVID-19 VACCINE(1) Never done DTAP,TDAP,TD(1 - Tdap) Never done HPV TESTING Never done MAMMOGRAM Never done PAP TESTING due on 09/22/2009 SHINGRIX VACCINE(1 of 2) Never done INFLUENZA(1) due on 11/12/2021 DEPRESSION ASSESSMENT Never done SERUM CREATININE due on 03/20/2022 HEMOGLOBIN/HEMATOCRIT due on 03/20/2022 ANNUAL PCP TEAM CHRONIC DISEASE VISIT due on 10/08/2022 DIABETES S (more content not included)...[facility]01-30-2023 History of Present illness Narrative* Verito Older, 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 - 04/12/2022 2:46 PM EST This Team Access Model visit is a virtual encounter. It required patient- provider interaction for the medical decision making as documented below. Patient agrees to the visit: Yes Patient Location: [place] CC: Patient presents with: Follow Up HPI Theodora Gant is a 57 year old female who is contacted today for a virtual visit. This is an established patient of Dr. Sam Saunders MD. Patient had to change appointment to virtual visit due to chronic right knee pain that is severe. It is affecting her mobility, unable to walk more than 10 feet and now needs assistance with certain ADL's. She was last seen by orthopedics in October, has not followed up as instructed. Taking Voltaren twice a day without much relief. Feels like she could get around better with a walker. Needs new CPAP, split sleep study completed but no enough information. Needs to repeat. Managed by director immunology Dr. Lilly. Taking Protonix daily. If she doesn't take has severe reflux and pain. She is following up with GI for this. Most of her medications are prescribed by non-[facility] specialists including [facility]. REVIEW OF SYSTEMS See HPI PAST MEDICAL HISTORY Diagnosis Date Asthma 06/13/2008 Atypical chest pain 01/2019 heart cath normal Bile-induced gastritis 04/08/2021 Calcium deposits in tendon and bursa right knee Chronic cholecystitis 07/22/2020 Chronic midline low back pain without sciatica 07/31/2015 Colon polyp 07/17/2020 Dermatophytosis of the body Edema 06/13/2008 GERD (gastroesophageal reflux disease) 07/29/2010 Infectious mononucleosis Irregular menstrual cycle Obesity, Class III, BMI 40-49.9 (morbid obesity) ([facility]) 07/27/2017 Tobacco use disorder Unspecified hearing loss left ear - wears hearing aid Unspecified hypothyroidism PAST SURGICAL HISTORY Procedure Laterality Date COLONOSCOPY SCREENING 07/17/2020 EGD 07/17/2020 LAPS SURG CHOLECYSTECTOMY W/CHOLANGIOGRAPHY 07/22/2020 [facility] LEFT HEART CATH,PERCUTANEOUS 01/23/2019 L & R heart catheterization vamshi. ALLERGIES Seasonal Allergies MEDICATIONS diclofenac, EC, (VOLTAREN) 75 mg EC tablet take 1 tablet by mouth twice a day for pain fluticasone (FLOVENT) 110 mcg/actuation inhaler Inhale 2 Puffs as instructed twice daily. Shake well before use. Rinse mouth after use. albuterol HFA (PROAIR HFA) 90 mcg/actuation inhaler Inhale 2 Puffs as instructed every 4 hours as needed. phentermine HCl (PHENTERMINE ORAL) Take by mouth. pantoprazole DR (PROTONIX) 40 mg tablet Take 1 tablet by mouth daily before breakfast. Take on empty stomach, 1/2 hr before meal. hydrocortisone 2.5 % cream Apply 1 application to affected area twice daily as needed (Apply sparingly to rash of hands, arms, legs for 1 week.). colestipol (COLESTID) 1 gram tablet Take 1 g by mouth once daily. albuterol HFA (PROVENTIL HFA, VENTOLIN HFA) 90 mcg/actuation inhaler Q4H nitroglycerin sublingual (NITROQUICK) 0.4 mg SL tablet 0.4 mg. aspirin, enteric coated (ASPIRIN, ENTERIC COATED) 81 mg EC tablet Take 1 tablet by mouth once daily. atorvastatin (LIPITOR) 20 mg tablet Take 20 mg by mouth once daily. carvedilol (COREG) 3.125 mg tablet Take 1 tablet by mouth once daily. furosemide (LASIX) 20 mg tablet Take 1 tablet by mouth once daily. potassium chloride SR (MICRO-K) 10 mEq CR capsule Take 1 capsule by mouth once daily. CPAP AutoPAP 5-15 CM H2O with flex/EPR option, ramp, mask of choice, HUMIDITY. LIFETIME SUPPLIES. DME: [facility] FAMILY HISTORY Problem Relation Age of Onset Diabetes Maternal Grandmother Hypertension Brother Hypertension Sister Hypertension Mother Hypertension Father Seizures Sister Seizures Brother Cancer Father brain Social History Tobacco Use Smoking status: Former Packs/day: 1.00 Years: 15.00 Pack years: 15.00 Types: Cigarettes Quit date: 05/30/2009 Years since quittin.8 Smokeless tobacco: Never Tobacco comments: started age 16. Vaping Use Vaping Use: Never used Substance Use Topics Alcohol use: No Comment: rare 1 drink Drug use: Never EXAM: Deferred physical exam as visit was completed over the phone Patient is speaking in complete sentences without obvious respiratory distress or audible wheezing. DATA REVIEWED: Most recent labs HEPATITIS B(1 of 3 - 3-dose series) Never done COVID-19 VACCINE(1) Never done DTAP,TDAP,TD(1 - Tdap) Never done HPV TESTING Never done MAMMOGRAM Never done PAP TESTING due on 09/22/2009 SHINGRIX VACCINE(1 of 2) Never done INFLUENZA(1) due on 11/12/2021 DEPRESSION ASSESSMENT Never done SERUM CREATININE due on 03/20/2022 HEMOGLOBIN/HEMATOCRIT due on 03/20/2022 ANNUAL PCP TEAM CHRONIC DISEASE VISIT due on 10/08/2022 DIABETES SCREEN due on 03/20/2024 LIPID SCREEN due on 05/27/2025 COLORECTAL CANCER SCREENING due on 07/17/2025 SPIROMETRY Completed HEPATITIS C SCREENING Completed HIV SCREENING Completed PNEUMOCOCCAL Completed ASSESSMENT/PLAN: 1. Chronic pain of right knee - ICD9: 719.46, 338.29, ICD10: M25.561, G89.29 (primary diagnosis) Will fax prescription for walker to [facility] per patient request. Follow-up with orthopedics as instructed, patient requesting assistance in scheduling and will have someone contact her - ROLLING WALKER 2. Impaired mobility - ICD9: 799.89, ICD10: Z74.09 As above - ROLLING WALKER 3. Obesity, Class III, BMI 40-49.9 (morbid obesity) (HCC) - ICD9: 278.01, ICD10: E66.01 Weight increasing per patient due to mobility issues - CBC - COMP METABOLIC PANEL 4. VETO on CPAP - ICD9: 327.23, V46.8, ICD10: G47.33, Z99.89 Compliant with CPAP, follow-up with pulmonology 5. Bile-induced gastritis - ICD9: 535.40, ICD10: K29.60 Stable 6. Gastroesophageal reflux disease, unspecified whether esophagitis present - ICD9: 530.81, ICD10: K21.9 Stable 7. Chronic renal impairment, stage 3a (HCC) - ICD9: 585.3, ICD10: N18.31 Recheck Prescription instructions reviewed with patient as applicable. Potential red flag symptoms discussed with the patient. Reviewed appropriate action plan to take if red flag symptoms occur. Patient agreeable to treatment plan. During this patient visit I have spent approximately 25 minutes in counseling regarding treatment options, medications, and coordinating care. Verito Broderick APRN.CNP documented in this encounterMercer County Community Hospital11-29-2022 Miscellaneous Notes* Telephone Encounter - Qain Suh Ma - 02/09/2022 3:39 PM EST Patient has been contacted with message from Stephanie. Patient has been scheduled on 02/15/2022. * Telephone Encounter - Stephanie George PA-C - 02/08/2022 12:32 PM EST She should schedule a follow up with Dr. Hyatt, in his last note he said if no improvement she should follow up to try a cortisone injection. * Telephone Encounter - Candelaria Kat LPN - 02/05/2022 3:07 PM EST Patient calling and states she has been doing aquatic therapy for her knee and she is not having any success with pain relief or range of motion. She is using OTC Tylenol Arthritis without relief andapplying the brace and using heating pad. She has swelling above and below the knee. PT currently being done at [facility] and they advised the patient reach out to our office for further advice as they do not feel she should be having this much discomfort especially in the pool. PT was asking her about possibly gait training with walker or cane and insurance auth/orders. Candelaria Kat LPN documented in this encounterMercer County Community Hospital10-20-2022 Miscellaneous Notes* Telephone Encounter - Qian Suh Ma - 12/31/2021 10:18 AM EDT Patient called back and patient advised that our office does not fill out Social security disability. Patient states she just found that the office will request records and she does not need to have physicians fill out paperwork. Patient will pick up driver forms that she dropped off. Left at Ortho front office administrator. * Telephone Encounter - Qian Suh Ma - 12/30/2021 1:27 PM EDT I called and left a message for patient to contact office back. * Telephone Encounter - Argentina Bajwa RN - 12/30/2021 9:46 AM EDT Pt called back in today, returning call from a couple days ago. Inquiring about forms and wanted totalk to someone about her pain. Please contact Patient. Argentina Bajwa RN * Telephone Encounter - Qian Suh Ma - 12/23/2021 9:37 AM EDT Patient dropped off social security disability paperwork to be filled out. I called and left a message for patient to contact office. Dr. Hyatt will not fill out these forms. Patient seen in office for patellofemoral instability and that will not qualify her for disability. documented in this encounterMercer County Community Hospital10-11-2022 Miscellaneous Notes* Telephone Encounter - Kandis Blunt LPN - 12/22/2021 2:45 PM EDT Pt brought in form from social security administration to be completed by pcp.to pcp to review. Call pt when ready for pick up driver. She notes they need all medical records too. documented in this encounterMercer County Community Hospital09-30-2022 Miscellaneous Notes* Telephone Encounter - Qian Suh Ma - 12/11/2021 4:06 PM EDT Patient has been notified and verbalized understanding. * Telephone Encounter - Stephanie George PA-C - 12/09/2021 1:47 PM EDT I sent some oral diclofenac to her pharmacy it will take the place of the Lodine. * Telephone Encounter - Qian Suh Ma - 12/09/2021 10:52 AM EDT I called and spoke with patient. Message from Stephanie sadler. Patient states she has a fear of needles and is not getting an injection. She will try PT at [facility]. Patient asking if anti inflammatory can be increased and refilled? Confirmed [facility] in [place]. * Telephone Encounter - Stephanie George PA-C - 12/08/2021 4:[address] Hyatt's office note at patients last visit We discussed possible cortisone injection andformal therapy as well. Weight loss will help as well. I entered a order for physical therapy, shecan schedule a follow up for cortisone injection as well. I would have her talk with PCP regarding guidance for weight loss. * Telephone Encounter - Jing Joaquin RN - 12/08/2021 11:53 AM EDT Theodora called to update Dr. Hyatt on her right knee. She advised that she is using the brace and taking etodolac. If she stays off of her feet, the brace and the medication are helping control her pain, but if she has to be on her feet for an extended period of time, the medication does not help with her pain. Theodora would like someone from Dr. Hyatt's office to call her back and advise of any other modalities she can try. Jing Joaquin RN [facility] History of Present illness Narrative* Qian Suh Ma - 10/26/2021 3:08 PM EDT PT ASSESSMENT - CASTING ROOM Theodora presents for Application of brace. Applied XXL wrap around hinged knee brace to Right knee. Patient electronically signed Austin HARPER. Patient has been instructed in Care of brace. Qian Suh Ma * Selywn Hyatt MD - 10/26/2021 2:12 PM EDT Selwyn Hyatt MD Department of Orthopaedics Orthopaedics [address] [place] [id number] Dept: [phone] Dept October 26, [address] Saunders for an opinion regarding right knee pain. My final recommendations will be communicated back to the requesting physician by way of shared Medical record or letter to requesting physician via US mail. CHIEF COMPLAINT: New Patient and Knee Pain of the Right Knee HPI Patient c/o R knee pain that's been worse for the past 6 months. She c/o swelling and pain that is constant. No injury. 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 Is having most discomfort at her patellofemoral joint. I gave her a home exercise program and she like to try an anti- inflammatory. We discussed possible cortisone injection and formal therapy as well. Weight loss will help as well. FOLLOW UP INSTRUCTIONS: As needed Ms. Theodora Gant was advised as to contrast therapies and/or to take analgesics/anti-inflammatories as needed and all contraindications were reviewed. OBJECTIVE: Ms. Theodora Gant is a pleasant 56 year old in no apparent distress. Gen:There were no vitals taken for this visit. nl development, obese, no deformities ENT: Normocephalic, normal hearing, moist mucosa CV: Pulses:DP/PT= 2+ and symmetric, capillary refill < 2 secs, no peripheral edema/varicosities Skin: no rash, bruising or lesions. Good turgor. Psych: cooperative and appropriate, alert and oriented x 3, good mood and affect. Musculoskeletal: Patient walks with mild antalgia, normal station. Hip motion without pain. Knee with scant effusion. Patella tracks normally. There is minimal patellar crepitance. Mild pain along the medial and lateral facets. Range of motion 0-125 degrees. Mild medial, without lateral joint line pain on palpation. Ligamentous exam stable on varus and valgus stress testing at 0 and 30 degrees. Sylvester's examination is negative. Posterior drawer is negative. Negative McMurrays, without palpable click. Extremityis warm and well perfused. Sensation is grossly intact to light touch, subjectively. IMAGING: IMPRESSION: Findings are suggestive of mild degenerative changes in the right knee. Broadcast Traffic Coordinator: TAHIRA Transcribe Date/Time: Oct 09 2021 3:56P Dictated by : CLAUDIO LANGLEY MD This examination was interpreted and the report reviewed and electronically signed by: CLAUDIO LANGLEY MD on Oct 09 2021 4:02PM EST Results-Findings * * *Final Report* * * DATE OF EXAM: Oct 08 2021 3:30PM WOX [id number] - XR KNEE 4V AP/PA BOTH+LAT/LAMONT RT / PROCEDURE REASON: Effusion of right knee * * * * Physician Interpretation * * * * EXAM TITLE: XR KNEE 4V AP/PA BOTH+LAT/LAMONT RT EXAM DATE/TIME: 10/08/2021 3:30 PM COMPARISON: None. CLINICAL INDICATION/HISTORY: Right knee pain. TECHNIQUE: AP/PA, lateral and sunrise views of the right knee are presented. FINDINGS: No acute fractures or subluxations are noted. Marginal bony spurs are visualized.. The joint spaces are preserved. There is trace/small joint effusion. The bones are osteopenic. There is no significant soft tissue swelling. Supporting Subjective Information Below: Past Medical History: PAST MEDICAL HISTORY Diagnosis Date Asthma 06/13/2008 Atypical chest pain 01/2019 heart cath normal Bile-induced gastritis 04/08/2021 Calcium deposits in tendon and bursa right knee Chronic cholecystitis 07/22/2020 Chronic midline low back pain without sciatica 07/31/2015 Colon polyp 07/17/2020 Dermatophytosis of the body Edema 06/13/2008 GERD (gastroesophageal reflux disease) 07/29/2010 Infectious mononucleosis Irregular menstrual cycle Obesity, Class III, BMI 40-49.9 (morbid obesity) (FORM[facility]LY [facility]) 07/27/2017 Tobacco use disorder Unspecified hearing loss left ear - wears hearing aid Unspecified hypothyroidism Past Surgical History: PAST SURGICAL HISTORY Procedure Laterality Date COLONOSCOPY SCREENING 07/17/2020 EGD 07/17/2020 LAPS SURG CHOLECYSTECTOMY W/CHOLANGIOGRAPHY 07/22/2020 [facility] LEFT HEART CATH,PERCUTANEOUS 01/23/2019 L & R heart catheterization vamshi. Family History: FAMILY HISTORY Problem Relation Age of Onset Diabetes Maternal Grandmother Hypertension Brother Hypertension Sister Hypertension Mother Hypertension Father Seizures Sister Seizures Brother Cancer Father brain Social History: Social History Tobacco Use Smoking status: Former Packs/day: 1.00 Years: 15.00 Pack years: 15.00 Types: Cigarettes Quit date: 05/30/2009 Years since quittin.4 Smokeless tobacco: Never Tobacco comments: started age 16. Vaping Use Vaping Use: Never used Substance Use Topics Alcohol use: No Comment: rare 1 drink Drug use: Never Medications: Current Outpatient Medications Medication Sig fluticasone (FLOVENT) 110 mcg/actuation inhaler Inhale 2 Puffs as instructed twice daily. Shake well before use. Rinse mouth after use. albuterol HFA (PROAIR HFA) 90 mcg/actuation inhaler Inhale 2 Puffs as instructed every 4 hours as needed. phentermine HCl (PHENTERMINE ORAL) Take by mouth. pantoprazole DR (PROTONIX) 40 mg tablet Take 1 tablet by mouth daily before breakfast. Take on empty stomach, 1/2 hr before meal. hydrocortisone 2.5 % cream Apply 1 application to affected area twice daily as needed (Apply sparingly to rash of hands, arms, legs for 1 week.). colestipol (COLESTID) 1 gram tablet Take 1 g by mouth once daily. albuterol HFA (PROVENTIL HFA, VENTOLIN HFA) 90 mcg/actuation inhaler Q4H nitroglycerin sublingual (NITROQUICK) 0.4 mg SL tablet 0.4 mg. aspirin, enteric coated (ASPIRIN, ENTERIC COATED) 81 mg EC tablet Take 1 tablet by mouth once daily. atorvastatin (LIPITOR) 20 mg tablet Take 20 mg by mouth once daily. carvedilol (COREG) 3.125 mg tablet Take 1 tablet by mouth once daily. furosemide (LASIX) 20 mg tablet Take 1 tablet by mouth once daily. potassium chloride SR (MICRO-K) 10 mEq CR capsule Take 1 capsule by mouth once daily. CPAP AutoPAP 5-15 CM H2O with flex/EPR option, ramp, mask of choice, HUMIDITY. LIFETIME SUPPLIES. DME: [facility] No current facility-administered medications for this visit. Allergies: Seasonal Allergies ROS: General (negative for fatigue, malaise, weight loss/gain) HEENT (negative for headache, earache, recent vision changes, sinus pain, sore throat) Respiratory (no recent shortness of breath, hemoptysis) CV (negative for chest tightness, palpitations) Musculoskeletal (see HPI) Psych (no depression, anxiety) REFERRING PHYSICIAN: Ms. Theodora Gant was referred to me for consultation by the following physician. This consultation note will be sent to the following physician by either mail or electronic medical record. 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 documented as of this encounter (statuses as of 11/19/2021) [facility] of Past illness Narrative* Problem Noted Date Resolved Date Dermatophytosis of nail 04/08/2021 10/09/19 22 Pain in joint, lower leg 2010 016 Tobacco use disorder 06/13/2008 07/31/2015 Overview: Pt interested in quitting as of 08-20 but worried about turning to food Non morbid obesity due to excess calories 200804/08/2021 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 documented as of this encounter (statuses as of 12/11/2021) [facility] of Past illness Narrative* Problem Noted Date Resolved Date Dermatophytosis of nail 04/08/2021 10/09/19 22 Pain in joint, lower leg 2010 016 Tobacco use disorder 06/13/2008 07/31/2015 Overview: Pt interested in quitting as of 08-20 but worried about turning to food Non morbid obesity due to excess calories 200804/08/2021 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 documented as of this encounter (statuses as of 12/31/2021) [facility] of Past illness Narrative* Problem Noted Date Resolved Date Dermatophytosis of nail 04/08/2021 10/09/19 22 Pain in joint, lower leg 2010 016 Tobacco use disorder 06/13/2008 07/31/2015 Overview: Pt interested in quitting as of 08-20 but worried about turning to food Non morbid obesity due to excess calories 200804/08/2021 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 documented as of this encounter (statuses as of 01/08/2022) [facility] Narrative* Problem Noted Date Resolved Date Dermatophytosis of nail 04/08/2021 10/09/19 22 Pain in joint, lower leg 2010 016 Tobacco use disorder 06/13/2008 07/31/2015 Overview: Pt interested in quitting as of 08-20 but worried about turning to food Non morbid obesity due to excess calories 200804/08/2021 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 documented as of this encounter (statuses as of 02/09/2022) [facility] Narrative* Problem Noted Date Resolved Date Dermatophytosis of nail 04/08/2021 10/09/19 22 Pain in joint, lower leg 2010 016 Tobacco use disorder 06/13/2008 07/31/2015 Overview: Pt interested in quitting as of 08-20 but worried about turning to food Non morbid obesity due to excess calories 200804/08/2021 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 documented as of this encounter (statuses as of 04/12/2022) [facility] Narrative* Problem Noted Date Resolved Date Dermatophytosis of nail 04/08/2021 10/09/19 22 Pain in joint, lower leg 2010 016 Tobacco use disorder 06/13/2008 07/31/2015 Overview: Pt interested in quitting as of 08-20 but worried about turning to food Non morbid obesity due to excess calories 200804/08/2021 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 documented as of this encounter (statuses as of 04/20/2022) [facility] Narrative* Problem Noted Date Resolved Date Dermatophytosis of nail 04/08/2021 10/09/19 22 Pain in joint, lower leg 2010 016 Tobacco use disorder 06/13/2008 07/31/2015 Overview: Pt interested in quitting as of 08-20 but worried about turning to food Non morbid obesity due to excess calories 200804/08/2021 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 documented as of this encounter (statuses as of 06/04/2022) [facility] Narrative* Problem Noted Date Resolved Date Dermatophytosis of nail 04/08/2021 10/09/19 22 Pain in joint, lower leg 2010 016 Tobacco use disorder 06/13/2008 07/31/2015 Overview: Pt interested in quitting as of 08-20 but worried about turning to food Non morbid obesity due to excess calories 200804/08/2021 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 documented as of this encounter (statuses as of 09/15/2022) [address]26-2022 History of Past illness Narrative* Problem Noted Date Diagnosed Date Resolved Date Dermatophytosis of nail 04/08/2021 072 10/2021 Pain in joint, lower leg 2010 Tobacco use disorder 06/13/2008 016 Overview: Pt interested in quitting as of 08-20 but worried about turning to food Non morbid obesity due to excess calories 06/13/2008 04/08/2021 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 documented as of this encounter (statuses as of 09/20/2022) [facility] Narrative* Problem Noted Date Diagnosed Date Resolved Date Dermatophytosis of nail 04/08/202109/12 Pain in joint, lower leg 2010 Tobacco use disorder 06/13/2008 016 Overview: Pt interested in quitting as of 08-20 but worried about turning to food Non morbid obesity due to excess calories 06/13/2008 04/08/2021 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 documented as of this encounter (statuses as of 10/11/2022) [facility] Narrative* Problem Noted Date Diagnosed Date Resolved Date Dermatophytosis of nail 04/08/202109/12 Pain in joint, lower leg 2010 Tobacco use disorder 06/13/2008 016 Overview: Pt interested in quitting as of 08-20 but worried about turning to food Non morbid obesity due to excess calories 06/13/2008 04/08/2021 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 documented as of this encounter (statuses as of 10/12/2022) [facility] Narrative* Problem Noted Date Diagnosed Date Resolved Date Dermatophytosis of nail 04/08/202109/12 Pain in joint, lower leg 2010 Tobacco use disorder 06/13/2008 016 Overview: Pt interested in quitting as of 08-20 but worried about turning to food Non morbid obesity due to excess calories 06/13/2008 04/08/2021 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 documented as of this encounter (statuses as of 11/04/2022) [facility] Narrative* Problem Noted Date Diagnosed Date Resolved Date Dermatophytosis of nail 04/08/202109/12 Pain in joint, lower leg 2010 Tobacco use disorder 06/13/2008 016 Overview: Pt interested in quitting as of 08-20 but worried about turning to food Non morbid obesity due to excess calories 06/13/2008 04/08/2021 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 documented as of this encounter (statuses as of 11/18/2022) [facility] Narrative* Problem Noted Date Diagnosed Date Resolved Date Dermatophytosis of nail 04/08/202109/12 Pain in joint, lower leg 2010 Tobacco use disorder 06/13/2008 016 Overview: Pt interested in quitting as of 08-20 but worried about turning to food Non morbid obesity due to excess calories 06/13/2008 04/08/2021 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 documented as of this encounter (statuses as of 12/28/2022) [facility] Narrative* Problem Noted Date Diagnosed Date Resolved Date Dermatophytosis of nail 04/08/2021 07/2 10/2021 Pain in joint, lower leg 2010 Tobacco use disorder 06/13/2008 016 Overview: Pt interested in quitting as of 08-20 but worried about turning to food Non morbid obesity due to excess calories 06/13/2008 04/08/2021 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 documented as of this encounter (statuses as of 01/16/2023) [facility] Narrative* Problem Noted Date Diagnosed Date Resolved Date Dermatophytosis of nail 04/08/20212 10/2021 Pain in joint, lower leg 2010 Tobacco use disorder 06/13/2008 016 Overview: Pt interested in quitting as of 08-20 but worried about turning to food Non morbid obesity due to excess calories 06/13/2008 04/08/2021 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 documented as of this encounter (statuses as of 01/27/2023) [facility] Narrative* Problem Noted Date Diagnosed Date Resolved Date Dermatophytosis of nail 04/08/2021 072 10/2021 Pain in joint, lower leg 2010 Tobacco use disorder 06/13/2008 016 Overview: Pt interested in quitting as of 08-20 but worried about turning to food Non morbid obesity due to excess calories 06/13/2008 04/08/2021 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 documented as of this encounter (statuses as of 02/15/2023) [facility] Narrative* Problem Noted Date Diagnosed Date Resolved Date Dermatophytosis of nail 04/08/2021 07/2 10/2021 Pain in joint, lower leg 2010 Tobacco use disorder 06/13/2008 016 Overview: Pt interested in quitting as of 08-20 but worried about turning to food Non morbid obesity due to excess calories 06/13/2008 04/08/2021 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 documented as of this encounter (statuses as of 02/22/2023) [facility] Narrative* Problem Noted Date Diagnosed Date Resolved Date Dermatophytosis of nail 04/08/202109/12 Pain in joint, lower leg 2010 Tobacco use disorder 06/13/2008 016 Overview: Pt interested in quitting as of 08-20 but worried about turning to food Non morbid obesity due to excess calories 06/13/2008 04/08/2021 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 documented as of this encounter (statuses as of 02/22/2023) [facility] Narrative* Problem Noted Date Diagnosed Date Resolved Date Dermatophytosis of nail 04/08/202109/12 Pain in joint, lower leg 2010 Tobacco use disorder 06/13/2008 016 Overview: Pt interested in quitting as of 08-20 but worried about turning to food Non morbid obesity due to excess calories 06/13/2008 04/08/2021 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 documented as of this encounter (statuses as of 02/25/2023) [facility] Narrative* Problem Noted Date Diagnosed Date Resolved Date Dermatophytosis of nail 04/08/202109/12 Pain in joint, lower leg 2010 Tobacco use disorder 06/13/2008 016 Overview: Pt interested in quitting as of 08-20 but worried about turning to food Non morbid obesity due to excess calories 06/13/2008 04/08/2021 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 documented as of this encounter (statuses as of 02/26/2023) [place] [id number] History of Past illness Narrative* Problem Noted Date Resolved Date Pain in joint, lower leg 2010 016 Tobacco use disorder 06/13/2008 07/31/2015 Overview: Pt interested in quitting as of 08-20 but worried about turning to food Non morbid obesity due to excess calories 200804/08/2021 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 documented as of this encounter (statuses as of 08/26/2021) [place] [id number] History of Past illness Narrative* Problem Noted Date Resolved Date Pain in joint, lower leg 2010 016 Tobacco use disorder 06/13/2008 07/31/2015 Overview: Pt interested in quitting as of 08-20 but worried about turning to food Non morbid obesity due to excess calories 200804/08/2021 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 documented as of this encounter (statuses as of 08/31/2021) [place] [id number] History of Past illness Narrative* Problem Noted Date Resolved Date Pain in joint, lower leg 2010 016 Tobacco use disorder 06/13/2008 07/31/2015 Overview: Pt interested in quitting as of 08-20 but worried about turning to food Non morbid obesity due to excess calories 200804/08/2021 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 documented as of this encounter (statuses as of 09/14/2021) [facility] Diagnosis Encounter for screening mammogram for breast cancer [facility] Diagnosis 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- Primary Effusion of right knee Effusion of lower leg joint [facility]* Diagnosis 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- Primary Effusion of right knee Effusion of lower leg joint [facility] Diagnosis Chronic pain of right knee- Primary Impaired mobility Other ill-defined conditions Obesity, Class III, BMI 40-49.9 (morbid obesity) ([facility]LY [facility]) Morbid obesity VETO on CPAP 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 apnea (adult) (pediatric) Bile-induced gastritis Other specified gastritis without mention of hemorrhage Gastroesophageal reflux disease, unspecified whether esophagitis present Chronic renal impairment, stage 3a ([facility]) [facility] this [facility]* Diagnosis Osteoarthritis of right knee, unspecified osteoarthritis type- Primary Chronic pain of right knee [facility] Diagnosis 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 Effusion of right knee Effusion of lower leg joint [facility] Diagnosis Encounter for screening mammogram for breast cancer [facility] this [facility]* Diagnosis 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 Effusion of right knee Effusion of lower leg joint [facility] Diagnosis Mild intermittent asthma without complication Unspecified asthma Eczema, unspecified type [facility] Diagnosis Mild intermittent asthma without complication Unspecified asthma Eczema, unspecified type [facility]* Diagnosis Wellness examination- Primary Weight gain Abnormal weight gain Uncomplicated asthma, unspecified asthma severity, unspecified whether persistent Gastroesophageal reflux disease, unspecified whether esophagitis present Irritable bowel syndrome with diarrhea Irritable bowel syndrome Obesity, Class III, BMI 40-49.9 (morbid obesity) ([facility]) Morbid obesity VETO on CPAP 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 apnea (adult) (pediatric) Encounter for immunization Need for other specified prophylactic vaccination against single bacterial disease [facility] this [facility]* Diagnosis 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 Effusion of right knee Effusion of lower leg joint [facility] [facility]* Diagnosis Renal insufficiency Unspecified disorder of kidney and ureter [facility] Right knee pain, unspecified chronicity- Primary documented in this encounter [facility] note* Diagnosis Right knee pain, unspecified chronicity documented in this encounter [facility] note* Diagnosis Multiple leg contusions, right, initial encounter Acute pain of right knee documented in this encounter [facility] for referral (narrative)* Diagnostic Procedure Only (Routine) - Pending Review Specialty Diagnoses / Procedures Referred By Contac t Referred To Contact BR IMAGING Diagnoses Encounter for screening mammogram for breast cancer Procedures MEREDITH SCREENING SCREENING MAMMOGRAPHY BI 2-VIEW BREAST INC Sam Abrams MD [address] [place] [address] Br Imaging [address] [place] [address] Referral ID Status Reason Start Date Expiration Date Visits Requested Visits Authorized [id number] Pending Review Auto-Generat ed Referral 09/09/2021 10/09/2022 1 1 [facility] for referral (narrative)* - Pending Review Specialty Diagnoses / Procedures Referred By Contac t Referred To Contact Physical Therapy Diagnoses 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 Effusion of right knee Procedures CONSULT TO PHYSICAL THERAPY Stephanie George PA-C [address] [place] [address] Referral ID Status Reason Start Date Expiration Date V isits Requested Visits Authorized [id number] Pending Review 12/08/2021 03/08/2022 1 1 [facility] for referral (narrative)* Diagnostic Procedure Only (Routine) - Pending Review Specialty Diagnoses / Procedures Referred By Contac t Referred To Contact BR IMAGING Diagnoses Encounter for screening mammogram for breast cancer Procedures MEREDITH SCREENING SCREENING MAMMOGRAPHY BI 2-VIEW BREAST INC Sam Abrams MD [address] [place] [address] Br Imaging [address] [place] [address] Referral ID Status Reason Start Date Expiration Date Visits Requested Visits Authorized [id number] Pending Review Auto-Generat ed Referral 09/15/2022 10/15/2023 1 1 [facility] for referral (narrative)* Diagnostic Procedure Only (Routine) - Closed Specialty Diagnoses / Procedures Referred By Contac t Referred To Contact US IMAGING Diagnoses Renal insufficiency Procedures US KIDNEY/BLADDER US RETROPERITONEAL REAL TIME W/IMAGE COMPLETE Verito Broderick APRN.OFFSET LITHOGRAPHIC PRESS SETTER [address] [place] [address] [place] [address] Referral ID Status Reason Start Date Expiration Date V isits Requested Visits Authorized [id number] Closed Auto-Generate d Referral 11/18/2022 12/18/2023 1 1 [facility] for referral (narrative)* Diagnostic Procedure Only (Routine) - Pending Review Specialty Diagnoses / Procedures Referred By Contac t Referred To Contact XR IMAGING Diagnoses Right knee pain, unspecified chronicity Procedures XR KNEE GENERAL 4V AP BOTH/PA BOTH/LAT/MERC RIGHT RADIOLOGIC EXAM KNEE COMPLETE 4/MORE VIEWS Selwyn Hyatt MD [address] [place] [address] [place] [address] Referral ID Status Reason Start Date Expiration Date Visits Requested Visits Authorized [id number] Pending Review Auto-Generat ed Referral 02/14/2023 03/15/2024 [address] [facility] for visit Narrative* Diagnostic Procedure Only (Routine) - Closed Specialty Diagnoses / Procedures Referred By Contac t Referred To Contact US IMAGING Diagnoses Renal insufficiency Procedures US KIDNEY/BLADDER US RETROPERITONEAL REAL TIME W/IMAGE COMPLETE Verito Broderick APRN.OFFSET LITHOGRAPHIC PRESS SETTER [address] [place] [address] [place] [address] Referral ID Status Reason Start Date Expiration Date V isits Requested Visits Authorized [id number] Closed Auto-Generate d Referral 11/18/2022 12/18/2023 1 1 [facility] for visit Narrative* Diagnostic Procedure Only (Routine) - Closed Specialty Diagnoses / Procedures Referred By Contac t Referred To Contact XR IMAGING Diagnoses Right knee pain, unspecified chronicity Procedures XR KNEE GENERAL 4V AP BOTH/PA BOTH/LAT/MERC RIGHT RADIOLOGIC EXAM KNEE COMPLETE 4/MORE VIEWS Selwyn Hyatt MD [address] [place] [address] [place] [address] Referral ID Status Reason Start Date Expiration Date V isits Requested Visits Authorized [id number] Closed Auto-Generate d Referral 02/14/2023 03/15/2024 1 1 [facility] for visit Narrative* Diagnostic Procedure Only (Routine) - Closed Specialty Diagnoses / Procedures Referred By Contac t Referred To Contact XR IMAGING Diagnoses Multiple leg contusions, right, initial encounter Acute pain of right knee Procedures XR TIBIA FIBULA 2V AP/LAT RIGHT RADIOLOGIC EXAMINATION TIBIA & FIBULA 2 VIEWS Selwyn Hyatt MD [address] [place] [address] [place] [address] Referral ID Status Reason Start Date Expiration Date V isits Requested Visits Authorized [id number] Closed Auto-Generate d Referral 02/21/2023 03/22/2024 1 1 [facility] Summary Purpose Family History No Family History Records FoundNo Family History Records Found Advance Directives No Advanced Directives Records FoundDocuments on File Type Date Recorded 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 Advance Directive(s) 04/11/2017 1:26 PM Documents on File Type Date Recorded 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 Advance Directive(s) 04/11/2017 1:26 PM Reason for Referral Specialty Diagnoses / Procedures Referred By Contac t Referred To Contact Diagnoses Mild intermittent asthma without complication Sam Saunders MD [address] [place] [address] Referral ID Status Reason Start Date Expiration Date Visits Re quested Visits Authorized [id number] Closed 1 1 Specialty Diagnoses / Procedures Referred By Contac t Referred To Contact Diagnoses Wellness examination Procedures CONSULT TO WOMEN'S HEALTH OFFICE/OUTPATIENT [facility] MDM 60-74 MINUTES Older, 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, 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 [address] [place] [address] Referral ID Status Reason Start Date Expiration Date Visits Requested Visits Authorized [id number] Authorized PCP Requested Referral Auto-Generate d Referral 11/17/2022 11/17/2023 1 1 Additional Source Comments INFORMATION SOURCE (unrecogn ized section and content) DATE CREATED AUTHOR AUTHOR'S ORGANCLEVE ATION 02/26/2023 [facility] Source Comments (unrecognize d section and content) In the event this informatio n is protected by the Federal Confidentiality of Alcohol and Drug Abuse Patient Records regulations: The Federal rules restrict any use of the information to criminally investigate or prosecute any alcohol or drug abuse patient.[facility] the event this information is protected by the Federal Confidentiality of Alcohol and Drug Abuse Patient Records regulations: The Federal rules restrict any use of the information to criminally investigate or prosecute any alcohol or drug abuse patient.[facility] the event this information is protected by the Federal Confidentiality of Alcohol and Drug Abuse Patient Records regulations: The Federal rules restrict any use of the information to criminally investigate or prosecute any alcohol or drug abuse patient.[facility] the event this information is protected by the Federal Confidentiality of Alcohol and Drug Abuse Patient Records regulations: The Federal rules restrict any use of the information to criminally investigate or prosecute any alcohol or drug abuse patient.[facility] the event this information is protected by the Federal Confidentiality of Alcohol and Drug Abuse Patient Records regulations: The Federal rules restrict any use of the information to criminally investigate or prosecute any alcohol or drug abuse patient.[facility] the event this information is protected by the Federal Confidentiality of Alcohol and Drug Abuse Patient Records regulations: The Federal rules restrict any use of the information to criminally investigate or prosecute any alcohol or drug abuse patient.[facility] the event this information is protected by the Federal Confidentiality of Alcohol and Drug Abuse Patient Records regulations: The Federal rules restrict any use of the information to criminally investigate or prosecute any alcohol or drug abuse patient.[facility] the event this information is protected by the Federal Confidentiality of Alcohol and Drug Abuse Patient Records regulations: The Federal rules restrict any use of the information to criminally investigate or prosecute any alcohol or drug abuse patient.[facility] the event this information is protected by the Federal Confidentiality of Alcohol and Drug Abuse Patient Records regulations: The Federal rules restrict any use of the information to criminally investigate or prosecute any alcohol or drug abuse patient.[facility] the event this information is protected by the Federal Confidentiality of Alcohol and Drug Abuse Patient Records regulations: The Federal rules restrict any use of the information to criminally investigate or prosecute any alcohol or drug abuse patient.[facility] the event this information is protected by the Federal Confidentiality of Alcohol and Drug Abuse Patient Records regulations: The Federal rules restrict any use of the information to criminally investigate or prosecute any alcohol or drug abuse patient.[facility] the event this information is protected by the Federal Confidentiality of Alcohol and Drug Abuse Patient Records regulations: The Federal rules restrict any use of the information to criminally investigate or prosecute any alcohol or drug abuse patient.[facility] the event this information is protected by the Federal Confidentiality of Alcohol and Drug Abuse Patient Records regulations: The Federal rules restrict any use of the information to criminally investigate or prosecute any alcohol or drug abuse patient.[facility] the event this information is protected by the Federal Confidentiality of Alcohol and Drug Abuse Patient Records regulations: The Federal rules restrict any use of the information to criminally investigate or prosecute any alcohol or drug abuse patient.[facility] the event this information is protected by the Federal Confidentiality of Alcohol and Drug Abuse Patient Records regulations: The Federal rules restrict any use of the information to criminally investigate or prosecute any alcohol or drug abuse patient.[facility] the event this information is protected by the Federal Confidentiality of Alcohol and Drug Abuse Patient Records regulations: The Federal rules restrict any use of the information to criminally investigate or prosecute any alcohol or drug abuse patient.[facility] the event this information is protected by the Federal Confidentiality of Alcohol and Drug Abuse Patient Records regulations: The Federal rules restrict any use of the information to criminally investigate or prosecute any alcohol or drug abuse patient.[facility] the event this information is protected by the Federal Confidentiality of Alcohol and Drug Abuse Patient Records regulations: The Federal rules restrict any use of the information to criminally investigate or prosecute any alcohol or drug abuse patient.[facility] the event this information is protected by the Federal Confidentiality of Alcohol and Drug Abuse Patient Records regulations: The Federal rules restrict any use of the information to criminally investigate or prosecute any alcohol or drug abuse patient.[facility] the event this information is protected by the Federal Confidentiality of Alcohol and Drug Abuse Patient Records regulations: The Federal rules restrict any use of the information to criminally investigate or prosecute any alcohol or drug abuse patient.[facility] the event this information is protected by the Federal Confidentiality of Alcohol and Drug Abuse Patient Records regulations: The Federal rules restrict any use of the information to criminally investigate or prosecute any alcohol or drug abuse patient.[facility] the event this information is protected by the Federal Confidentiality of Alcohol and Drug Abuse Patient Records regulations: The Federal rules restrict any use of the information to criminally investigate or prosecute any alcohol or drug abuse patient.[facility] the event this information is protected by the Federal Confidentiality of Alcohol and Drug Abuse Patient Records regulations: The Federal rules restrict any use of the information to criminally investigate or prosecute any alcohol or drug abuse patient.[facility] the event this information is protected by the Federal Confidentiality of Alcohol and Drug Abuse Patient Records regulations: The Federal rules restrict any use of the information to criminally investigate or prosecute any alcohol or drug abuse patient.[facility] the event this information is protected by the Federal Confidentiality of Alcohol and Drug Abuse Patient Records regulations: The Federal rules restrict any use of the information to criminally investigate or prosecute any alcohol or drug abuse patient.[facility] Care Teams (unrecognized sec tion and content) 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 Relationship Specialty Start Date End Date Sam Saunders MD [address] [place], [place] [id number] PCP - General Internal Medicine 07/09/19 Wringer 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 Relationship Specialty Start Date End Date Sam Saunders MD [address] [place], [place] [address] PCP - General Internal Medicine 07/09/19 Wringer 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 Relationship Specialty Start Date End Date Sam Saunders MD [address] [facility] [place] [address] PCP - General Internal Medicine 07/09/19 Wringer 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 Relationship Specialty Start Date End Date Sam Saunders MD [address] [facility] [place] [address] PCP - General Internal Medicine 07/09/19 Wringer 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 Relationship Specialty Start Date End Date Sam Saunders MD [address] [facility] [place] [address] PCP - General Internal Medicine 07/09/19 Wringer 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 Relationship Specialty Start Date End Date Sam Saunders MD [address] [facility] [place] [address] PCP - General Internal Medicine 07/09/19 Wringer 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 Relationship Specialty Start Date End Date Sam Saunders MD [address] [facility] [place] [address] PCP - General Internal Medicine 07/09/19 Wringer 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 Relationship Specialty Start Date End Date Sam Saunders MD [address] [place] [address] PCP - General Internal Medicine 07/09/19 Wringer 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 Relationship Specialty Start Date End Date Sam Saunders MD [address] [facility] [address] PCP - General Internal Medicine 07/09/19 Wringer 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 Relationship Specialty Start Date End Date Sam Saunders MD [address] [facility] [place] [address] PCP - General Internal Medicine 07/09/19 Wringer 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 Relationship Specialty Start Date End Date Sam Saunders MD [address] [facility] [place] [address] PCP - General Internal Medicine 07/09/19 Wringer 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 Relationship Specialty Start Date End Date Sam Saunders MD [address] [facility] [place] [address] PCP - General Internal Medicine 07/09/19 Wringer 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 Relationship Specialty Start Date End Date Sam Saunders MD [address] [facility] [place] [address] PCP - General Internal Medicine 07/09/19 Wringer 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 Relationship Specialty Start Date End Date Sam Saunders MD [address] [facility] [place] [address] PCP - General Internal Medicine 07/09/19 Wringer 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 Relationship Specialty Start Date End Date Sam Saunders MD [address] [facility] [place] [address] PCP - General Internal Medicine 07/09/19 Wringer 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 Relationship Specialty Start Date End Date Sam Saunders MD [address] [facility] [place] [address] PCP - General Internal Medicine 07/09/19 Wringer 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 Relationship Specialty Start Date End Date Sam Saunders MD [address] [facility] [place] [address] PCP - General Internal Medicine 07/09/19 Wringer 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 Relationship Specialty Start Date End Date Sam Saunders MD [address] [facility] [place] [address] PCP - General Internal Medicine 07/09/19 Wringer 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 Relationship Specialty Start Date End Date Sam Saunders MD [address] [place] [address] PCP - General Internal Medicine 07/09/19 Wringer 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 Relationship Specialty Start Date End Date Sam Saunders MD [address] [place], [place] [address] PCP - General Internal Medicine 07/09/19 Reason for Visit (unrecogniz ed section and content) Specialty Diagnoses / Procedures Referred By Contac t Referred To Contact Orthopedics Diagnoses Effusion of right knee Procedures CONSULT TO ORTHOPAEDICS OFFICE/OUTPATIENT [facility] MDM 60-74 MINUTES Sam Saunders MD [address] [place] [address] Referral ID Status Reason Start Date Expiration Date V isits Requested Visits Authorized [id number] Closed PCP Requested Referral 10/08/2021 10/08/2022 1 1 Reason Comments Patient Update Reason Comments Forms Reason Comments Patient Update Reason Comments Follow Up Reason Comments Orders Reason Comments Refill Request Reason Onset Date Comments Refill Request 10/08/2022 Reason Onset Date Comments Refill Request 10/08/2022 Reason Onset Date Comments Refill Request 11/02/2022 Reason Comments Physical Reason Comments Consult Chronic Kidney Disease Specialty Diagnoses / Procedures Referred By Contac t Referred To Contact Nephrology Diagnoses Stage 3a chronic kidney disease (HCC) Procedures CONSULT TO NEPHROLOGY OFFICE/OUTPATIENT [facility] MDM 60-74 MINUTES Verito Broderick APRN.CNP [address] [place] [address] Referral ID Status Reason Start Date Expiration Date V isits Requested Visits Authorized [id number] Closed PCP Requested Referral 12/15/2022 12/15/2023 1 1 Reason Comments Patient Question FOR RECORDS PERTAINING TO PATIENTS WHO ARE OR HAVE BEEN ENROLLED IN A CHEMICAL DEPENDENCY/SUBSTANCEABUSE PROGRAM, SOME INFORMATION MAY BE OMITTED. This clinical summary was aggregated from multiple sources. Caution should be exercised in using it in the provision of clinical care. This summary normalizes information from multiple sources, and as a consequence, information in this document may materially change the coding, format and clinical context of patient data. In addition, data may be omitted in some cases. CLINICAL DECISIONS SHOULD BE BASED ON THE PRIMARY CLINICAL RECORDS. [facility]. provides no warranty or guarantee of the accuracy or completeness of information in this document.
--- NOTE | 2023-03-10 06:23 | PFTCOMP_ITS ---
COMPLETE PULMONARY FUNCTION TEST INTERPRETATION Brief HPI: Patient is a 58-year-old female, currently under the care of Porfirio irvin, who [facility] pulmonary function tests secondary to diagnosis of dyspnea. Respiratory therapist reports good effort and reproducible results. Interpretation: Forced expiration spirometry shows no large airways obstructive ventilatory defect with an FEV1 of 76% predicted. There is a significant bronchodilator response in FEV1 by strict ATS criteria. Spirograms are of good quality and plateau normally. The respiratory flow volume loop shows decreased expiratory flow rates at high lung volumes consistent with small airways obstruction. Lung volumes by body plethysmography show a decreased total lung capacity at 3.92 L, 79% predicted. All other lung volumes are reduced symmetrically. Diffusion capacity by carbon monoxide is normal at 91% predicted. The airway resistance is normal. Compared to previous pulmonary function tests from 03/13/2019, there has been no significant change. Impression: Partially reversible mild mixed ventilatory defect with preserved diffusion capacity
== END | disposition home or self-care (01) ==
LOC: PSN 12:31
PROVIDERS: PCP Internal Medicine; Visit Provider Nurse Practitioner Family
DX: R06.00 Dyspnea, unspecified (principal); E66.01 Morbid (severe) obesity due to excess calories
CPT/HCPCS: 94060; 94726; 94729

== ENCOUNTER → 2023-03-22 | Outpatient (CLI) | payer MEDICAID, SELFPAY ==
--- NOTE | 2023-03-22 09:42 | RAD_ITS ---
STUDY: X-RAY - ESOPHAGUS (BARIUM SWALLOW) WITH FLUOROSCOPY REASON FOR EXAM: Female, 58 years old. GERD, Hiatal hernia TECHNIQUE: 24 view(s) of the esophagus were obtained following swallowing of barium. FLUOROSCOPY TIME (if supplied): (27 seconds) minutes/seconds COMPARISON: None. FINDINGS: There is no demonstrated esophageal foreign body. There is no demonstrated stricture or mucosal abnormality. Normal gastroesophageal junction, without a demonstrated hiatal hernia. The patient ingested a 12 mm tablet of barium without any difficulty. Normal visualized aortic arch and descending thoracic aorta. Normal visualized pulmonary parenchyma. Normal visualized osseous structures of the thorax. RAD/Esophagus Dual Contrast IMPRESSION: Normal plain film x-ray examination (barium swallow) of the esophagus. Electronically Signed: Antoine Woods MD at 12:43 EST ,
--- OUTSIDE RECORDS SUMMARY | 2023-03-22 11:03 | XMS RPT_ITS | CCD ---
Author Name Unknown Address [id number] [place] [address] Organization [facility] Care Team Providers Care Thiokol Operator Name Role Phone SAM SAUNDERS Unavailable Unavailable Chaka CHILDERS, Sam Benitez Primary Care Provider [phone] Chaka CHILDERS, Sam Benitez Primary Care Provider [phone] Chaka CHILDERS, Sam Benitez Primary Care Provider [phone] SAM SAUNDERS Primary Care Unavailable SELWYN HYATT Attending Unavailable SELWYN HYATT Referring Unavailable SAUNDERS, LUCRECIA Primary Care Unavailable RAFFAELE MUSTAFA Referring Unavailabl e SAUNDERS, LUCRECIA Primary Care Unavailable RAFFAELE MUSTAFA Referring Unavailabl e SAUNDERS, LUCRECIA Primary Care Unavailable RAFFAELE MUSTAFA Attending [...] Attending Unavailable SAUNDERS, LUCRECIA Primary Care Unavailable SAUNDESR, LUCRECIA Primary Care Unavailable SAUNDERS, LUCRECIA Referring Unavailable SHREYA, VERITO M Attending Unavailable SAUNDERS, LUCRECIA Primary Care Unavailable SHREYA, VERITO M Referring Unavailable SELWYN HYATT Referring Unavailable SAUNDERS, LUCRECIA Primary Care Unavailable Allergies Allergy Classification Reported Allergen(s) Allergy Type Date of Onset Reaction(s) Facility (20 sources) Seasonal allergy; 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: [SEASONAL ALLERGIES] Propensity to adverse reactions 04-08-2021 Intolerance [facility] Work Phone: Medications Current Medications Medication Drug [...] Drug Class(es) Dates Sig (Normalized) Sig (Original) [id number] 200 actuat albuterol 0.09 mg/actuat metered dose [...] 1 07-29-2010 Chronic Nephritis; nephrosis; renal sclerosis (8 sources) Atrophy of right kidney; 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: [Atrophy of kidney (terminal)] Onset: 3 01-27-2023 Chronic Osteoarthritis (2 sources) Osteoarthritis of right knee joint; 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: [Unilateral primary osteoarthritis, right knee] Chronic Other diseases of kidney and ureters (1 source) Renal impairment; 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: [Disorder of kidney and ureter, unspecified] 12-03-2022 Episodic Other gastrointestinal disorders (20 sources) Irritable [...] right knee] Episodic Other non-traumatic joint disorders (8 sources) Pain in right knee; 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: [Pain [...] CPAP] Onset: 2 Chronic Superficial injury; contusion (3 sources) Contusion of multiple sites of lower limb; 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: [Contusion of right lower leg, initial encounter] Onset: 3 02-21-2023 Episodic Thyroid disorders (11 sources) Subclinical hypothyroidism; 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: [Other specified hypothyroidism] [...] [Polyp of colon] Onset: 07-17-2020 04-08-2021 Episodic Other diseases of kidney and ureters (1 source) Disorder of kidney and ureter, unspecified; 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: [Renal insufficiency] Onset: 12-03-2022 Episodic Residual codes; unclassified (20 sources) Edema; [...] 117.94 kg Raffaele Mustafa MD Work Phone: [facility] 11-17-2022 16:58-0400 Body height 157.5 cm Verito Older GRAPHIC EDITOR.[facility] Work Phone: [facility] 11-17-2022 16:58-0400 Body weight 118.39 kg Verito Older GRAPHIC EDITOR.[facility] Work Phone: [facility] 11-17-2022 16:58-0400 Diastolic blood pressure 74 mm[Hg] Verito Older GRAPHIC EDITOR.EXPLOSIVE ORDNANCE SPECIALIST Work Phone: [facility] 11-17-2022 16:58-0400 Heart rate 72 /min Verito Older GRAPHIC EDITOR.[facility] Work Phone: [facility] 11-17-2022 16:58-0400 Respiratory rate 20 /min Verito Older GRAPHIC EDITOR.[facility] Work Phone: [facility] 11-17-2022 16:58-0400 SaO2% (BldA) [Mass fraction] 98 % Verito Older GRAPHIC EDITOR.EXPLOSIVE ORDNANCE SPECIALIST Work Phone: [facility] 11-17-2022 16:58-0400 Systolic blood pressure 106 mm[Hg] Verito Older GRAPHIC EDITOR.[facility] Work Phone: [facility] Encounters Encounter Date Encounter Type Care Provider Facility Start: 02-25-2023 Telephone encounter Raffaele Mustafa MD Work Phone: [facility] Procedures Date Procedure Procedure Detail Performing Clinician Start: 01-27-2023 Lipid 1996 panel - S leda or Plasma Selwyn Hyatt MD Work Phone: Start: 12-03-2022 Us retroperitoneal r eal time w/image complete Verito Older GRAPHIC EDITOR.EXPLOSIVE ORDNANCE SPECIALIST Work Phone: Start: 11-17-2022 INFLUENZA VACCINE, A GE 6 MO - 64 YR, QUADRIVALENT (AFLURIA, FLULAVAL, FLUZONE) Verito Older GRAPHIC EDITOR.EXPLOSIVE ORDNANCE SPECIALIST Work Phone: Start: 04-08-2021 Adult depression scr eening assessment Sam Saunders MD Work Phone: Start: 07-17-2020 Colonoscopy Sam Lopez MD Work Phone: Start: 05-27-2020 Lipid 1996 panel - S leda or Plasma Stephanie George PA-C Work Phone: Plan of Treatment Date Care Activity Detail Author Start: 11-17-2032 Urine microalbumin profile [facility] Start: 01-28-2028 Lipid 1996 panel - S leda or Plasma Lipid Screening [facility] Start: 01-28-2028 Lipid panel Lipid Screening [facility] Start: 11-25-2025 Diabetes Screening Diabetes Screenin g [facility] Start: 07-17-2025 Colonoscopy COLONOSCOPY [facility] Start: 07-17-2025 COLORECTAL CANCER SCREENING COLORECTAL CANCER SCREENING [facility] Start: 07-17-2025 Screening for malign ant neoplasm of colon [facility] Start: 05-27-2025 Lipid 1996 panel - S leda or Plasma Lipid Screening [facility] Start: 05-27-2025 LIPID SCREEN LIPID SCREEN [facility] Start: 03-20-2024 DIABETES SCREEN DIABETES SCREEN [facility] Start: 01-28-2024 Creatinine measurement Serum Creatin ine [facility] Start: 01-28-2024 Serum Creatinine Serum Creatinine Cl [facility] Start: 11-26-2023 Serum Creatinine Serum Creatinine Cl [facility] Start: 11-18-2023 ANNUAL PCP TEAM AIRPLANE DESIGNER BRIAN DISEASE VISIT ANNUAL PCP TEAM CHRONIC DISEASE VISIT [facility] Start: 11-18-2023 COVID-19 VACCINE (#1) COVID-19 VACCI NE (#1) [facility] Immunizations Immunization Date Immunization Notes Care Provider Fa cility 11-17-2022 influenza, injectabl e, quadrivalent, contains preservative Verito Older GRAPHIC EDITOR.EXPLOSIVE ORDNANCE SPECIALIST Work Phone: [facility] 11-17-2022 tetanus toxoid, redu mamie diphtheria toxoid, and acellular pertussis vaccine, adsorbed Verito Older GRAPHIC EDITOR.EXPLOSIVE ORDNANCE SPECIALIST Work Phone: [facility] 10-08-2021 pneumococcal (PCV20) vaccine, 20 valent (PREVNAR 20) Selwyn Hyatt MD Work Phone: [facility] Work Phone: 12-19-2019 influenza, seasonal, injectable, preservative free Sam Saunders MD Work Phone: [facility] Work Phone: 01-15-2019 influenza, seasonal, injectable, preservative free Sam Saunders MD Work Phone: [facility] Work Phone: 01-12-2019 influenza, seasonal, injectable Sam Saunders MD Work Phone: [facility] 12-03-2016 influenza, injectabl e, quadrivalent, contains preservative Sam Saunders MD Work Phone: [facility] Work Phone: Payers Date Payer Category Payer Medicaid [id number] 2017 Medicaid 2017 Medicaid [facility] MEDIC AID [facility] MEDICAID [id number] 2017-Present [phone] [address] [place] [address] Medicaid [id number] 2017 Medicaid [id number] Social History Date Type Detail Facility Start: 04-08-2021 End: 11-17-2022 Tobacco smoking status NHIS Ex-smoker [facility] End: 05-30-2009 History of tobacco use Current smoker [facility] End: 05-30-2009 History of tobacco use Cigarette Smoker [facility] Start: 04-09-2021 End: 10-26-2021 Alcohol intake Current non-drinker of alcohol (finding) [facility] Start: 04-08-2021 History SDOH Alcohol Frequency 2 [facility] Start: 04-08-2021 History SDOH Alcohol Std Drinks 1 [facility] Start: 04-08-2021 History SDOH Alcohol Comment rare 1 drink [facility] Start: 04-08-2021 History SDOH Physica l Activity DPW 7 [facility] Start: 04-08-2021 History SDOH Physica l Activity MPS 3 [facility] Start: 04-08-2021 Tobacco Comment started age 16. [facility] Start: 1965 Sex Assigned At Not on file C [facility] Start: 04-08-2021 End: 11-11-2022 Cigarettes smoked current (pack per day) - Reported 1 [facility] Work Phone: Start: 04-08-2021 End: 11-17-2022 Tobacco use and exposure Smokeless tobacco non-user [facility] Work Phone: Start: 10-16-2021 End: 10-26-2021 Exposure to SARS-CoV-2 (event) Not sure [facility] Start: 10-26-2021 End: 11-11-2022 Tobacco use panel [facility] Work Phone: National Score (1-10 0), lower number is lower risk 92 [facility] Work Phone: How often to you hav e a drink containing alcohol? Monthly or less [facility] Work Phone: How many standard drinks containing alcohol do you have on a typical day? 1 or 2 [facility] Work Phone: How often do you hav e 6 or more drinks on 1 occasion? Never [facility] Work Phone: Start: 11-17-2022 End: 02-21-2023 Alcohol intake Ex-drinker (finding) [facility] Start: 11-17-2022 Tobacco Comment started age 16 [facility] Clinical Notes 2010 to 02-25-2023 Telephone Encounter - Raffaele Mustafa MD - 02/25/2023 2:29 PM ESTTelephone Encounter - Raffaele Mustafa MD - 02/25/2023 11:18 AM EST Note Date & Type Note Facility 02-25-2023 Miscellaneous Notes Formattin g of this note might be different from the original. I called patient and clarified her questions that she had sent through [employer]. Will repeat labs in April. documented in this encounter [facility] 02-25-2023 Miscellaneous Notes Formattin g of this note might be different from the original. Attempted to call the patient to clarify her questions. No answer. Left brief VM. documented in this encounter [facility] documented in this encounter [facility]12-11-2023 NoteHNO ID: [id number] Author: Arcelia Redman RT(R) Service: ? Author Type: Teleradiologist Type: Progress Notes Filed: 02/21/2023 4:21 PM Note Text: Radiology Service Progress Note PATIENT NAME: Theodora Prater DATE OF SERVICE: February 21, 2023 TIME: [...] BY: RT Makenna(R) February 21, 2023 4:09 [facility]12-11-2023 NoteHNO ID: [id number] Author: MEGAN SALTER RN Service: ? Author Type: Registered Nurse Type: Progress Notes Filed: 03/20/2023 16:14 Note Text: PT ASSESSMENT - CASTING ROOM Theodora presents for Application of brace. Applied Drytex Econ, Hinged Knee, Wrap XXL to Right knee Patient has been instructed in Care and proper application of brace. Patient signed [employer] paperwork electronically. [facility]agn [facility] NoteHNO ID: [id number] Author: SELWYN HYATT MD Service: ? Author Type: Physician Type: Progress Notes Filed: 03/20/2023 16:14 Note Text: Selwyn Hyatt MD Department of Orthopaedics Orthopaedics [address] [facility] [address] Dept: [phone] Dept February 21, 2023 CHIEF COMPLAINT: Established Patient and Pain of the Right Knee HPI Patient here today for right knee pain. Her knee gave out and she fell into a hole on her porch within the last week and she is having difficulty bearing weight on the leg. She has not been seen for this since the injury happened d/t transportation. New x-ray today of the knee. ASSESSMENT: S80.11XA Multiple leg contusions, right, initial encounter (primary encounter diagnosis) M25.561 Acute pain of right knee M17.11 Primary osteoarthritis of right knee PLAN: we'll get an xray to be sure. Some pain medicine, however I think this is just going to take some time. Ms. Theodora Prater was advised as to contrast therapies and/or to take analgesics/anti-inflammatories as needed and all contraindications were reviewed. OBJECTIVE: Ms. Theodora Prater is a pleasant 58 year old in no apparent distress. Gen:There were no vitals taken for this visit. nl development, morbid obesity , no deformities ENT: Normocephalic, normal hearing, moist mucosa CV: Pulses:DP/PT= 2+ and symmetric, capillary refill < 2 secs, no peripheral edema/varicosities Skin: no rash, bruising or lesions. Good turgor. Psych: cooperative and appropriate, alert and oriented x 3, good mood and affect. Musculoskeletal: She still has some resolving discoloration and some focal, mild swelling from sequelae of the contusions. Imaging: IMPRESSION: No acute pathology. Bony demineralization. Fence Gate Assembler: TAHIRA Transcribe Date/Time: Feb 24 2023 9:11A Dictated by : JENNY BUSTOS MD This examination was interpreted and the report reviewed and electronically signed by: JENNY BUSTOS MD on Feb 24 2023 9:13AM EST Results-Findings * * *Final Report* * * DATE OF EXAM: Feb 21 2023 4:22PM [id number] - XR TIBIA FIBULA 2V AP/LAT RT / PROCEDURE REASON: multiple diagnoses * * * * Physician Interpretation * * * * EXAM(s): XR TIBIA FIBULA 2V AP/LAT RT EXAM DATE/TIME: 02/21/2023 4:22 PM HISTORY: 58 years old Clinical information: Multiple leg contusions, right, initial encounter Acute pain of right knee Right lower leg pain and swelling after recent injury. TECHNIQUE: Images: XR TIBIA FIBULA 2V AP/LAT RT Comparison: Right knee radiographs 10/08/2021 RESULT: Findings: Bone density appears well-preserved. No fractures or dislocations are seen. Plantar and posterior calcaneal enthesophytes. Trace osteophytic lipping in the medial compartment of the knee. Bony demineralization. Supporting Subjective Information Below: Past Surgical History: PAST SURGICAL HISTORY Procedure Laterality Date COLONOSCOPY SCREENING 07/17/2020 EGD 07/17/2020 LAPS SURG CHOLECYSTECTOMY W/CHOLANGIOGRAPHY 07/22/2020 [facility] LEFT HEART CATH,PERCUTANEOUS 01/23/2019 L AND R heart catheterization vamshi. Medications: Current Outpatient Medications Medication Sig spironolactone (ALDACTONE) 25 mg tablet Take 1 tablet by mouth every afternoon. olopatadine (PATANOL) 0.1 % ophthalmic solution EYE ITCH RELIEF 0.025 % (0.035 %) [...] Take 1 g by mouth once daily. aspirin, enteric coated (ASPIRIN, ENTERIC COATED) 81 [...] Take 1 capsule by mouth once daily. nitroglycerin sublingual (NITROQUICK) 0.4 mg SL tablet 0.4 mg. CPAP AutoPAP 5-15 CM H2O with flex/EPR option, ramp, mask of choice, HUMIDITY (more content not included)...[facility]12-[facility] History of Present illness Narrative* Megan Salter RN - 02/21/2023 4:02 PM EST PT ASSESSMENT - CASTING ROOM Theodora presents for Application of brace. Applied Drytex Econ, Hinged Knee, Wrap XXL to Right knee Patient has been instructed in Care and proper application of brace. Patient signed [employer] paperwork electronically. Megan Salter RN * Selwyn Hyatt MD - 02/21/2023 3:04 PM EST Selwyn Hyatt MD Department of Orthopaedics Orthopaedics [facility] [address] [facility] [address] Dept: [phone] Dept February 21, 2023 CHIEF COMPLAINT: Established Patient and Pain of the Right Knee HPI Patient here today for right knee pain. Her knee gave out and she fell into a hole on her porchwithin the last week and she is having difficulty bearing weight on the leg. She has not been seen for this since the injury happened d/t transportation. New x-ray today of the knee. ASSESSMENT: S80.11XA Multiple leg contusions, right, initial encounter (primary encounter diagnosis) M25.561 Acute pain of right knee M17.11 Primary osteoarthritis of right knee PLAN: we'll get an xray to be sure. Some pain medicine, however I think this is just going to take some time. Ms. Theodora Prater was advised as to contrast therapies and/or to take analgesics/anti-inflammatories as needed and all contraindications were reviewed. OBJECTIVE: Ms. Theodora Prater is a pleasant 58 year old in no apparent distress. Gen:There were no vitals taken for this visit. nl development, morbid obesity , no deformities ENT: Normocephalic, normal hearing, moist mucosa CV: Pulses:DP/PT= 2+ and symmetric, capillary refill < 2 secs, no peripheral edema/varicosities Skin: no rash, bruising or lesions. Good turgor. Psych: cooperative and appropriate, alert and oriented x 3, good mood and affect. Musculoskeletal: She still has some resolving discoloration and some focal, mild swelling from sequelae of the contusions. Imaging: IMPRESSION: No acute pathology. Bony demineralization. Fence Gate Assembler: PSCB Transcribe Date/Time: Feb 24 2023 9:11A Dictated by : JENNY BUSTOS MD This examination was interpreted and the report reviewed and electronically signed by: JENNY BUSTOS MD on Feb 24 2023 9:13AM EST Results-Findings * * *Final Report* * * DATE OF EXAM: Feb 21 2023 4:22PM [id number] - XR TIBIA FIBULA 2V AP/LAT RT / PROCEDURE REASON: multiple diagnoses * * * * Physician Interpretation * * * * EXAM(s): XR TIBIA FIBULA 2V AP/LAT RT EXAM DATE/TIME: 02/21/2023 4:22 PM HISTORY: 58 years old Clinical information: Multiple leg contusions, right, initial encounter Acute pain of right knee Right lower leg pain and swelling after recent injury. TECHNIQUE: Images: XR TIBIA FIBULA 2V AP/LAT RT Comparison: Right knee radiographs 10/08/2021 RESULT: Findings: Bone density appears well-preserved. No fractures or dislocations are seen. Plantar and posterior calcaneal enthesophytes. Trace osteophytic lipping in the medial compartment of the knee. Bony demineralization. Supporting Subjective Information Below: Past Surgical History: PAST SURGICAL HISTORY Procedure Laterality Date COLONOSCOPY SCREENING 07/17/2020 EGD 07/17/2020 LAPS SURG CHOLECYSTECTOMY W/CHOLANGIOGRAPHY 07/22/2020 [facility] LEFT HEART CATH,PERCUTANEOUS 01/23/2019 L & R heart catheterization vamshi. Medications: Current Outpatient Medications Medication Sig spironolactone (ALDACTONE) 25 mg tablet Take 1 tablet by mouth every afternoon. olopatadine (PATANOL) 0.1 % ophthalmic solution EYE ITCH RELIEF 0.025 % (0.035 %) [...] Take 1 g by mouth once daily. aspirin, enteric coated (ASPIRIN, ENTERIC COATED) 81 [...] Take 1 capsule by mouth once daily. nitroglycerin sublingual (NITROQUICK) 0.4 mg SL tablet 0.4 mg. CPAP AutoPAP 5-15 CM H2O with flex/EPR option, ramp, mask of choice, HUMIDITY. LIFETIME SUPPLIES. DME: [facility] No current facility-administered medications for this visit. Allergies: Seasonal Allergies ROS: General (negative for fatigue, malaise, weight loss/gain) HEENT (negative for headache, earache, recent vision changes, sinus pain, sore throat) Respiratory (no recent shortness of breath, hemoptysis) CV (negative for chest tightness, palpitations) Musculoskeletal (see HPI) Psych (no depression, anxiety) Selwyn Hyatt MD [facility]23 NoteHNO ID: [id number] Author: Arcelia Redman RT(R) Service: ? Author Type: Teleradiologist Type: Progress Notes Filed: 02/21/2023 2:21 PM Note Text: Radiology Service Progress Note PATIENT NAME: Theodora Prater DATE OF SERVICE: February 21, 2023 TIME: [...] SIGNED BY: RT Makenna(R) February 21, 2023 1:57 [facility]11-16-2023 Instructions* Patient Instructions* Raffaele Mustafa MD [...] the testing from today. [facility]11-16-2023 NoteHNO ID: [id number] Author: Raffaele Mustafa MD Service: ? Author Type: Physician Type: Progress Notes Filed: 01/27/2023 2:09 PM Note Text: [facility] NEPHROLOGY AND HYPERTENSION [facility] SERVICE DATE: 01/27/2023 SERVICE TIME: 1:46 PM REASON FOR CONSULT: I am asked to see this patient in consultation for my opinion regarding Chronic Kidney Disease. My recommendations will be communicated by way of shared medical record, fax, or mail. REQUESTING PHYSICIAN: Verito Broderick APRN.EXPLOSIVE ORDNANCE SPECIALIST PRIMARY CARE PHYSICIAN: Sam Saunders MD CHIEF COMPLAINT: Swelling HPI: Ms. Prater is a 58 year old female with bilateral carpal tunnel, obesity, GERD who presents for chronic kidney disease. Patient's Cr has typically run 1.0 at baseline but was noted to increase to 1.3 in November on two checks this year. No recent urine studies but was bland in 2015. Did have KBUS done which showed smaller [...] Class III, BMI 40-49.9 (morbid obesity) ([facility]) 07/27/2017 Tobacco use disorder Unspecified hearing loss left ear - wears hearing aid Unspecified hypothyroidism PAST SURGICAL HISTORY: PAST SURGICAL HISTORY Procedure Laterality Date COLONOSCOPY SCREENING 07/17/2020 EGD 07/17/2020 LAPS SURG CHOLECYSTECTOMY W/CHOLANGIOGRAPHY 07/22/2020 [facility] LEFT HEART CATH,PERCUTANEOUS 01/23/2019 L AND [...] mouth once daily. carve (more content not included)...[facility]11-16-[facility] History of Present illness Narrative* Raffaele Mustafa MD - 01/27/2023 10:40 AM EST [facility] NEPHROLOGY & HYPERTENSION [facility] SERVICE DATE: 01/27/2023 SERVICE TIME: 1:46 PM REASON FOR CONSULT: I am asked to see this patient in consultation for my opinion regarding ChronicKidney Disease. My recommendations will be communicated by way of shared medical record, fax, or mail. REQUESTING PHYSICIAN: Verito Broderick APRN.EXPLOSIVE ORDNANCE SPECIALIST PRIMARY CARE PHYSICIAN: Sam Saunders MD CHIEF COMPLAINT: Swelling HPI: Ms. Prater is a 58 year old female with [...] Class III, BMI 40-49.9 (morbid obesity) ([facility]) 07/27/2017 Tobacco use disorder Unspecified hearing loss left ear - wears hearing aid Unspecified hypothyroidism PAST SURGICAL HISTORY: PAST SURGICAL HISTORY Procedure Laterality Date COLONOSCOPY SCREENING 07/17/2020 EGD 07/17/2020 LAPS SURG CHOLECYSTECTOMY W/CHOLANGIOGRAPHY 07/22/2020 [facility] LEFT HEART CATH,PERCUTANEOUS 01/23/2019 L & [...] mask of choice, HUMIDITY. LIFETIME SUPPLIES. DME: [facility] spironolactone (ALDACTONE) 25 mg tablet Take 1 [...] Date Value 11/17/2022 187 03/20/2021 187 Specific [place], Ur Date Value Ref Range Status 10/16/2015 [...] SIGNATURE: Raffaele Mustafa MD PATIENT NAME: Theodora Prater DATE: January 27, 2023 TIME: 1:46 PM CC: REFERRING PROVIDER: Verito Broderick APRN.[facility] PRIMARY CARE PHYSICIAN: Sam Saunders MD documented [facility] encounter[facility]11-[facility]23 Evaluation note* Diagnosis Stage 3a chronic kidney disease (HCC)- Primary Elevated serum creatinine Other nonspecific findings on examination of blood Right renal atrophy Renal sclerosis, unspecified Obesity, Class III, BMI 40-49.9 (morbid obesity) (HCC) Morbid obesity BMI 45.0-49.9, adult (HCC) Body Mass Index 45.0-49.9, adult Gastroesophageal reflux disease without esophagitis Esophageal reflux documented in this encounter [facility]11-16-2023 Reason for referral (narrative)* Outpatient Procedure (Routine) - Authorized Specialty Diagnoses / Procedures Referred By Matty craven Referred To Contact [facility] [place] Diagnoses Stage 3a chronic kidney disease (HCC) Procedures US RENAL ARTERY ALYCIA VAS LAB DUP-SCAN ARTL MARISSA ABDL/PEL/SCROT&/RPR ORGN COM Raffaele Mustafa MD [facility] [place] [address] [facility] Vascular [address] [address] Referral ID Status Reason Start Date Expiration Date Visits Requested Visits Authorized [id number] Authorized Auto-Generat ed Referral 3 01/27/2024 1 1 [facility]10-16-2023 Miscellaneous Notes* Telephone Encounter - Candelaria Kat [...] advise. Candelaria Kat LPN documented in this encounterMercy Health09-22-2023 NoteHNO ID: [id number] Author: Courtney Stallworth RT(Mulu) Service: Radiology Author Type: Technologist Type: Progress Notes Filed: 12/03/2022 2:18 PM Note Text: Radiology Service Progress Note PATIENT NAME: Theodora Prater DATE OF SERVICE: December 03, 2022 TIME: [...] Courtney Stallworth Rdms December 03, 2022 2:18 [facility]09-22-2023 History of Present illness Narrative* Courtney Stallworth RT(R) - 12/03/2022 1:45 PM EDT Radiology Service Progress Note PATIENT NAME: Theodora Prater DATE OF SERVICE: December 03, 2022 TIME: [...] 03, 2022 2:18 PM documented in this encounterMercy Health09-06-2023 NoteHNO ID: [id number] Author: Verito Broderick APRN.EXPLOSIVE ORDNANCE SPECIALIST Service: ? Author Type: Nurse Practitioner Type: Progress Notes Filed: 11/17/2022 5:53 PM Note Text: CC: Patient presents with: Physical HPI Theodora Prater is a 57 year old female who [...] EGD 07/17/2020 LAPS SURG CHOLECYSTECTOMY W/CHOLANGIOGRAPHY 07/22/2020 [facility] LEFT HEART CATH,PERCUTANEOUS 01/23/2019 L AND [...] mask of choice, HUMIDITY. LIFETIME SUPPLIES. DME: [facility] FAMILY HISTORY Problem Relation Age of Onset [...] 2) due on 04/12 (more content not included)...[facility]09-06-2023 Instructions* Patient Instructions* Verito Broderick APRN.CNP - 11/17/2022 5:27 PM EDT You are due for PAP/HPV and mammogram, please call [phone] to schedule documented in this encounterMercy Health09-06-2023 History of Present illness Narrative* Verito Broderick APRN.CNP - 11/17/2022 5:10 PM EDT CC: Patient presents with: Physical HPI Theodora Prater is a 57 year old female who [...] Class III, BMI 40-49.9 (morbid obesity) ([facility]) 07/27/2017 Tobacco use disorder Unspecified hearing loss [...] mask of choice, HUMIDITY. LIFETIME SUPPLIES. DME: [facility] FAMILY HISTORY Problem Relation Age of Onset [...] at this time. - Patient was counseled [id number] by myself (the billing provider) for the [...] plan. Verito Broderick APRN.CNP documented in this encounterMercy Health08-23-2023 Miscellaneous Notes* Telephone Encounter - Zaida Prabhakar LPN - 11/03/2022 3:07 PM EDT Spoke with pt and apts booked. Zaida Prabhakar LPN * Telephone Encounter - Verito Broderick APRN.CNP - 11/03/2022 11:48 AM EDT Okay for phone visit now with the expectation that she will have in office visit scheduled for March Verito Broderick APRN.CNP * Telephone Encounter - Krista Tripathi LPN [...] patient. Krista Tripathi LPN documented in this encounterMercy Health07-31-2023 Miscellaneous Notes* Telephone Encounter - Alana Bland [...] advise. Jing Joaquin RN documented in this encounterMercy Health07-28-2023 Miscellaneous Notes* Telephone Encounter - Briana Ang [...] you. Briana Ang RN documented in this encounterMercy Health07-05-2023 NotePatient Outreach (INTMMN) TARIQTHEODORA Linares ([id number]) 1965 F CHT Date Time Provider Department 09/15/22 SAM SAUNDERS During your visit today, we recorded the following information about you: Allergies As of Date: 09/15/2022 Noted Allergy Reaction SEASONAL ALLERGIES 04/08/2021 5 - Intolerance Date Reviewed: 10/26/2021 Reviewed by: Selwyn Hyatt MD - Fully Assessed Visit Diagnosis:Encounter for screening mammogram for breast cancer [Z12.31] Order(s):[facility] SCREENING [[id number]] Order #: [id number] FUTURE Prescriptions as of 09/20/2022 - diclofenac, [...] mask of choice, HUMIDITY. LIFETIME SUPPLIES. DME: [facility] Problem List As Of Date 09/15/2022 Noted [...] Colon polyp [K63.5] 07/17/2020 Encounter Status:Closed by [employer], PRODUSER on 09/20/22[facility] 06-04-2022 Miscellaneous Notes* Telephone Encounter - Grant Newsome Ma - 06/04/2022 4:10 PM EDT New order faxed to DD. * Telephone Encounter - Briana Ang RN - 06/02/2022 4:49 PM EDT Althea with [facility] calls to request a more specific diagnosis for rollator. She reports they need to know the cause of the chronic knee pain. Tried obesity and impaired mobility which neither will cover it. Althea requesting call back at [phone] and follow the prompts select option 1 then option 0 to connect to the pharmacy. If Althea isn't available she said to leave a message with pharmacy manager andthey will get the message to her. Briana Ang RN documented in this encounterMercy Health02-07-2023 Miscellaneous Notes* Telephone Encounter - Grant Newsome Ma - 04/20/2022 8:49 AM EST Order re-faxed as requested. Grant Newsome Ma * Telephone Encounter - Krista Tripathi LPN - 04/19/2022 4:45 PM EST Pt had an appt 04/12/22. Pt calls to report an order for a rolling walker was supposed to be faxed to [facility] and pt is being told by DM that they have not received the order. Pt is asking for the order to be re-faxed. Krista Tripathi LPN documented in this encounterMercy Health01-30-2023 NoteHNO ID: [id number] Author: Verito Broderick APRN.ERICK Service: ? Author Type: Nurse Practitioner Type: Progress Notes Filed: 04/12/2022 3:08 PM Note Text: This Team Access Model visit is a virtual encounter. It required patient-provider interaction for the medical decision making as documented below. Patient agrees to the visit: Yes Patient Location: [place] CC: Patient presents with: Follow Up HPI Theodora Prater is a 57 year old female who [...] enough information. Needs to repeat. Managed by personal consultant Dr. Lilly. Taking Protonix daily. If she doesn't take has severe reflux and pain. She is following up with GI for this. Most of her medications are prescribed by non-[facility] specialists including [facility]. REVIEW OF SYSTEMS See HPI PAST [...] Class III, BMI 40-49.9 (morbid obesity) ([facility]) 07/27/2017 Tobacco use disorder Unspecified hearing loss left ear - wears hearing aid Unspecified hypothyroidism PAST SURGICAL HISTORY Procedure Laterality Date COLONOSCOPY SCREENING 07/17/2020 EGD 07/17/2020 LAPS SURG CHOLECYSTECTOMY W/CHOLANGIOGRAPHY 07/22/2020 [facility] LEFT HEART CATH,PERCUTANEOUS 01/23/2019 L AND [...] mask of choice, HUMIDITY. LIFETIME SUPPLIES. DME: [facility] FAMILY HISTORY Problem Relation Age of Onset [...] on 10/08/2022 DIABETES S (more content not included)...[facility]01-30-2023 History of Present illness Narrative* Verito Older, GRAPHIC EDITOR.EXPLOSIVE ORDNANCE SPECIALIST - 04/12/2022 2:46 PM EST This Team Access Model visit is a virtual encounter. It required patient- provider interaction for the medical decision making as documented below. Patient agrees to the visit: Yes Patient Location: [place] CC: Patient presents with: Follow Up HPI Theodora Prater is a 57 year old female who [...] enough information. Needs to repeat. Managed by personal consultant Dr. Lilly. Taking Protonix daily. If she doesn't take has severe reflux and pain. She is following up with GI for this. Most of her medications are prescribed by non-[facility] specialists including [facility]. REVIEW OF SYSTEMS See HPI PAST [...] Class III, BMI 40-49.9 (morbid obesity) ([facility]) 07/27/2017 Tobacco use disorder Unspecified hearing loss left ear - wears hearing aid Unspecified hypothyroidism PAST SURGICAL HISTORY Procedure Laterality Date COLONOSCOPY SCREENING 07/17/2020 EGD 07/17/2020 LAPS SURG CHOLECYSTECTOMY W/CHOLANGIOGRAPHY 07/22/2020 [facility] LEFT HEART CATH,PERCUTANEOUS 01/23/2019 L & [...] mask of choice, HUMIDITY. LIFETIME SUPPLIES. DME: [facility] FAMILY HISTORY Problem Relation Age of Onset [...] diagnosis) Will fax prescription for walker to [facility] per patient request. Follow-up with orthopedics as [...] care. Verito Broderick APRN.CNP documented in this encounterMercy Health11-29-2022 Miscellaneous Notes* Telephone Encounter - Qian Suh Ma - 02/09/2022 3:39 PM EST [...] the knee. PT currently being done at [facility] and they advised the patient reach out to our office for further advice as they do not feel she should be having this much discomfort especially in the pool. PT was asking her about possibly gait training with walker or cane and insurance auth/orders. Candelaria Kat LPN documented in this encounterMercy Health10-20-2022 Miscellaneous Notes* Telephone Encounter - Qian Suh Ma - 12/31/2021 10:18 AM EDT Patient called back and patient advised that our office does not fill out Social security disability. Patient states she just found that the office will request records and she does not need to have physicians fill out paperwork. Patient will pick up operator forms that she dropped off. Left at [facility] [employer] [facility]. * Telephone Encounter - Qian Suh Ma [...] qualify her for disability. documented in this encounterMercy Health10-11-2022 Miscellaneous Notes* Telephone Encounter - Kandis Blunt LPN - 12/22/2021 2:45 PM EDT Pt brought in form from social security administration to be completed by pcp.to pcp to review. Call pt when ready for pick up operator. She notes they need all medical records too. documented in this encounterMercy Health09-30-2022 Miscellaneous Notes* Telephone Encounter - Qian Suh [...] an injection. She will try PT at [facility]. Patient asking if anti inflammatory can be increased and refilled? Confirmed [facility] in [place]. * Telephone Encounter - Stephanie George PA-C [...] try. Jing Joaquin RN documented in this encounterMercy Health08-15-2022 History of Present illness Narrative* Qian Suh Ma - 10/26/2021 3:08 PM EDT PT ASSESSMENT - CASTING ROOM Theodora presents for Application of brace. Applied XXL wrap around hinged knee brace to Right knee. Patient electronically signed Austin HARPER. Patient has been instructed in Care of brace. Qian Suh Ma * Selwyn Hyatt MD - 10/26/2021 2:12 PM EDT Selwyn Hyatt MD Department of Orthopaedics Orthopaedics [address] [place] [id number] Dept: [phone] Dept October 26, 2021 Consultation requested by [...] FOLLOW UP INSTRUCTIONS: As needed Ms. Theodora Prater was advised as to contrast therapies and/or to take analgesics/anti-inflammatories as needed and all contraindications were reviewed. OBJECTIVE: Ms. Theodora Prater is a pleasant 56 year old in [...] mild degenerative changes in the right knee. Fence Gate Assembler: TAHIRA Transcribe Date/Time: Oct 09 2021 3:56P [...] Class III, BMI 40-49.9 (morbid obesity) ([facility]) 07/27/2017 Tobacco use disorder Unspecified hearing loss left ear - wears hearing aid Unspecified hypothyroidism Past Surgical History: PAST SURGICAL HISTORY Procedure Laterality Date COLONOSCOPY SCREENING 07/17/2020 EGD 07/17/2020 LAPS SURG CHOLECYSTECTOMY W/CHOLANGIOGRAPHY 07/22/2020 [facility] LEFT HEART CATH,PERCUTANEOUS 01/23/2019 L & [...] mask of choice, HUMIDITY. LIFETIME SUPPLIES. DME: [facility] No current facility-administered medications for this visit. Allergies: Seasonal Allergies ROS: General (negative for fatigue, malaise, weight loss/gain) HEENT (negative for headache, earache, recent vision changes, sinus pain, sore throat) Respiratory (no recent shortness of breath, hemoptysis) CV (negative for chest tightness, palpitations) Musculoskeletal (see HPI) Psych (no depression, anxiety) REFERRING PHYSICIAN: Ms. Theodora Prater was referred to [facility] for consultation by the following physician. This consultation note will be sent to the following physician by either mail or electronic medical record. Sam Saunders [address] [facility] [address] Sam Saunders MD [address] [facility] [address] Selwyn Hyatt MD documented in this encounterMercy Health01-26-2022 History of Past illness Narrative* Problem Noted [...] of this encounter (statuses as of 11/19/2021) [facility] of Past illness Narrative* Problem Noted [...] of this encounter (statuses as of 12/11/2021) [facility] of Past illness Narrative* Problem Noted [...] of this encounter (statuses as of 12/31/2021) [facility] of Past illness Narrative* Problem Noted [...] of this encounter (statuses as of 01/08/2022) [address]26-2022 History of Past illness Narrative* Problem [...] of this encounter (statuses as of 02/09/2022) [address]26-2022 History of Past illness Narrative* Problem [...] of this encounter (statuses as of 04/12/2022) [address]26-2022 History of Past illness Narrative* Problem [...] of this encounter (statuses as of 04/20/2022) [facility] Narrative* Problem Noted [...] of this encounter (statuses as of 06/04/2022) [facility] Narrative* Problem Noted [...] of this encounter (statuses as of 09/15/2022) [facility] Narrative* Problem Noted [...] of this encounter (statuses as of 09/20/2022) [facility] Narrative* Problem Noted [...] of this encounter (statuses as of 10/11/2022) [facility] illness Narrative* Problem Noted [...] of this encounter (statuses as of 10/12/2022) [facility] Narrative* Problem Noted [...] of this encounter (statuses as of 11/04/2022) [facility] Narrative* Problem Noted [...] of this encounter (statuses as of 11/18/2022) [facility] Narrative* Problem Noted [...] of this encounter (statuses as of 12/28/2022) [facility] Narrative* Problem Noted [...] of this encounter (statuses as of 01/16/2023) [facility] Narrative* Problem Noted [...] of this encounter (statuses as of 01/27/2023) [facility] Narrative* Problem Noted [...] of this encounter (statuses as of 02/15/2023) [facility] Narrative* Problem Noted [...] of this encounter (statuses as of 02/22/2023) [facility] Narrative* Problem Noted [...] of this encounter (statuses as of 02/22/2023) [facility] Narrative* Problem Noted [...] of this encounter (statuses as of 02/25/2023) [facility] Narrative* Problem Noted [...] of this encounter (statuses as of 02/26/2023) [facility] Narrative* Problem Noted [...] as of this encounter (statuses as of 03/20/2023) [facility] Narrative* Problem Noted Date Resolved Date Pain in joint, lower leg 2010 016 Tobacco use disorder 06/13/2008 07/31/2015 Overview: Pt interested in quitting as of 08-20 but worried about turning to food Non morbid obesity due to excess calories 200804/08/2021 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 documented as of this encounter (statuses as of 08/26/2021) [place] [address]-02-2010 History of Past illness Narrative* Problem Noted Date Resolved Date Pain in joint, lower leg 2010 016 Tobacco use disorder 06/13/2008 07/31/2015 Overview: Pt interested in quitting as of 08-20 but worried about turning to food Non morbid obesity due to excess calories 200804/08/2021 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 documented as of this encounter (statuses as of 08/31/2021) [place] [address]-02-2010 History of Past illness Narrative* Problem Noted Date Resolved Date Pain in joint, lower leg 2010 016 Tobacco use disorder 06/13/2008 07/31/2015 Overview: Pt interested in quitting as of 08-20 but worried about turning to food Non morbid obesity due to excess calories 200804/08/2021 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 documented as of this encounter (statuses as of 09/14/2021) [facility]* Diagnosis Encounter for screening mammogram for breast cancer documented in this encounter [facility]* Diagnosis 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- Primary Effusion of right knee Effusion of lower leg joint documented in this encounter [facility]* Diagnosis 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- Primary Effusion of right knee Effusion of lower leg joint documented in this encounter [facility]* Diagnosis Chronic pain of right knee- Primary Impaired mobility Other ill-defined conditions Obesity, Class III, BMI 40-49.9 (morbid obesity) (HCC) Morbid obesity VETO on CPAP 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 apnea (adult) (pediatric) Bile-induced gastritis Other specified gastritis without mention of hemorrhage Gastroesophageal reflux disease, unspecified whether esophagitis present Chronic renal impairment, stage 3a ([facility]) documented in this encounter [facility]* Diagnosis Osteoarthritis of right knee, unspecified osteoarthritis type- Primary Chronic pain of right knee documented in this [facility]* Diagnosis 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 Effusion of right knee Effusion of lower leg joint documented in this [facility]* Diagnosis Encounter for screening mammogram for breast cancer documented in this encounter [facility]* Diagnosis 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 Effusion of right knee Effusion of lower leg joint documented in this [facility]* Diagnosis Mild intermittent asthma without complication Unspecified asthma Eczema, unspecified type documented in this encounter [facility]* Diagnosis Mild intermittent asthma without complication Unspecified asthma Eczema, unspecified type [facility] Wellness examination- Primary Weight gain Abnormal weight gain Uncomplicated asthma, unspecified asthma severity, unspecified whether persistent Gastroesophageal reflux disease, unspecified whether esophagitis present Irritable bowel syndrome with diarrhea Irritable bowel syndrome Obesity, Class III, BMI 40-49.9 (morbid obesity) ([facility]) Morbid obesity VETO on CPAP 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 apnea (adult) (pediatric) Encounter for immunization Need for other specified prophylactic vaccination against single bacterial disease documented in this encounter [facility]* Diagnosis 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 Effusion of right knee Effusion of lower leg joint documented in [facility]* Diagnosis Renal insufficiency Unspecified disorder of kidney and ureter [facility]* Diagnosis Right knee pain, unspecified chronicity- Primary documented [facility]* Diagnosis Right knee pain, unspecified chronicity documented [facility]* Diagnosis Multiple leg contusions, right, initial encounter Acute pain of right knee documented in this [facility]* Diagnosis Multiple leg contusions, right, initial encounter- Primary Acute pain of right knee Primary osteoarthritis of right knee Primary localized osteoarthrosis, lower leg documented in this encounter [facility] for referral (narrative)* Diagnostic Procedure Only (Routine) - Pending Review Specialty Diagnoses / Procedures Referred By Matty craven Referred To Contact BR IMAGING Diagnoses Encounter for screening mammogram for breast cancer Procedures [facility]EDITH SCREENING SCREENING MAMMOGRAPHY BI 2-VIEW BREAST INC Sam Abrams MD [address] [place] [address] [facility] [address] [place] [address] Referral ID Status Reason Start Date Expiration Date Visits Requested Visits Authorized [id number] Pending Review Auto-Generat ed Referral 09/09/2021 10/09/[address] 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 for referral (narrative)* Diagnostic Procedure Only (Routine) - Pending Review Specialty Diagnoses / Procedures Referred By Matty craven Referred To Contact BR IMAGING Diagnoses Encounter for screening mammogram for breast cancer Procedures [facility]EDITH SCREENING SCREENING MAMMOGRAPHY BI 2-VIEW BREAST INC Sam Abrams MD [address] [place] [address] [facility] [address] [place] [address] Referral ID Status Reason Start Date Expiration Date Visits Requested Visits Authorized [id number] Pending Review Auto-Generat ed Referral 09/15/2022 10/15/[address] [facility] for referral (narrative)* Diagnostic Procedure Only (Routine) - Closed Specialty Diagnoses / Procedures Referred By Contac t Referred To Contact US IMAGING Diagnoses Renal insufficiency Procedures US KIDNEY/BLADDER US RETROPERITONEAL REAL TIME W/IMAGE COMPLETE Verito Broderick APRN.CNP [address] [place] [address] [place] [address] Referral ID Status Reason Start Date Expiration Date V isits Requested Visits Authorized [id number] Closed Auto-Generate d Referral 11/18/2022 12/18/[address] [facility] for referral (narrative)* Diagnostic Procedure Only (Routine) - Pending Review Specialty Diagnoses / Procedures Referred By Contac t Referred To Contact XR IMAGING Diagnoses Right knee pain, unspecified chronicity Procedures XR KNEE GENERAL 4V AP BOTH/PA BOTH/LAT/MERC RIGHT RADIOLOGIC EXAM KNEE COMPLETE 4/MORE VIEWS Selwyn Hyatt MD [address] [place] [address] [place] [address] Referral ID Status Reason Start Date Expiration Date Visits Requested Visits Authorized [id number] Pending Review Auto-Generat ed Referral 02/14/2023 03/15/[address] [facility] for referral (narrative)* Diagnostic Procedure Only (Routine) - Closed Specialty Diagnoses / Procedures Referred By Contac t Referred To Contact XR IMAGING Diagnoses Multiple leg contusions, right, initial encounter Acute pain of right knee Procedures XR TIBIA FIBULA 2V AP/LAT RIGHT RADIOLOGIC EXAMINATION TIBIA & FIBULA 2 VIEWS Selwyn Hyatt MD [address] [place] [address] [place] [address] Referral ID Status Reason Start Date Expiration Date V isits Requested Visits Authorized [id number] Closed Auto-Generate d Referral 02/21/2023 03/22/2024 1 1 [facility] for visit Narrative* Diagnostic Procedure Only (Routine) - Closed Specialty Diagnoses / Procedures Referred By Contac t Referred To Contact US IMAGING Diagnoses Renal insufficiency Procedures US KIDNEY/BLADDER US RETROPERITONEAL REAL TIME W/IMAGE COMPLETE Verito Broderick, GRAPHIC EDITOR.EXPLOSIVE ORDNANCE SPECIALIST [address] [place] [address] [place] [address] Referral ID Status Reason Start Date Expiration Date V isits Requested Visits Authorized [id number] Closed Auto-Generate d Referral 11/18/2022 12/18/[address] [facility] for visit Narrative* Diagnostic Procedure Only (Routine) - Closed Specialty Diagnoses / Procedures Referred By Matty t Referred To Contact XR IMAGING Diagnoses Right knee pain, unspecified chronicity Procedures XR KNEE GENERAL 4V AP BOTH/PA BOTH/LAT/MERC RIGHT RADIOLOGIC EXAM KNEE COMPLETE 4/MORE VIEWS Selwyn Hyatt MD [address] [place] [id number] [place] [address] Referral ID Status Reason Start Date Expiration Date V isits Requested Visits Authorized [id number] Closed Auto-Generate d Referral 02/14/2023 03/15/[address] [facility] for visit Narrative* Diagnostic Procedure Only (Routine) - Closed Specialty Diagnoses / Procedures Referred By Matty craven Referred To Contact XR IMAGING Diagnoses Multiple leg contusions, right, initial encounter Acute pain of right knee Procedures XR TIBIA FIBULA 2V AP/LAT RIGHT RADIOLOGIC EXAMINATION TIBIA & FIBULA 2 VIEWS Selwyn Hyatt MD [address] [place] [address] [place] [address] Referral ID Status Reason Start Date Expiration Date V isits Requested Visits Authorized [id number] Closed Auto-Generate d Referral 02/21/2023 03/22/2024 1 1 [facility] Summary Purpose Family History No Family History Records FoundNo Family History Records Found Advance Directives No Advanced Directives Records FoundDocuments on File Type Date Recorded Patient Criminal Justice Instructor Expl anation Advance Directive(s) 04/11/2017 1:26 PM Documents on File Type Date Recorded Patient Criminal Justice Instructor Expl anation Advance Directive(s) 04/11/2017 1:26 PM Reason for Referral Specialty Diagnoses / Procedures Referred By Contac t Referred To Contact Diagnoses Mild intermittent asthma without complication Sam Saunders MD [address] [place] [address] Referral ID Status Reason Start Date Expiration Date Visits Re quested Visits Authorized [id number] Closed 1 1 Specialty Diagnoses / Procedures Referred By Contac t Referred To Contact Diagnoses Wellness examination Procedures CONSULT TO WOMEN'S HEALTH OFFICE/OUTPATIENT [facility] 60-74 MINUTES Older, Verito, GRAPHIC EDITOR.EXPLOSIVE ORDNANCE SPECIALIST [address] [place] [address] Referral ID Status Reason Start Date Expiration Date Visits Requested Visits Authorized [id number] Authorized PCP Requested Referral Auto-Generate d Referral 11/17/2022 11/17/2023 1 1 Additional Source Comments INFORMATION SOURCE (unrecogn ized section and content) DATE CREATED AUTHOR AUTHOR'S ORGANIZ ATION 03/20/2023 [facility] Source Comments (unrecognize d section and content) In the event this informatio n is protected by the Federal Confidentiality of Alcohol and Drug Abuse Patient Records regulations: The Federal rules restrict any use of the information to criminally investigate or prosecute any alcohol or drug abuse patient.[facility] HealthIn the event this information is protected by the Federal Confidentiality of Alcohol and Drug Abuse Patient Records regulations: The Federal rules restrict any use of the information to criminally investigate or prosecute any alcohol or drug abuse patient.[facility] HealthIn the event this information is protected by the Federal Confidentiality of Alcohol and Drug Abuse Patient Records regulations: The Federal rules restrict any use of the information to criminally investigate or prosecute any alcohol or drug abuse patient.[facility] HealthIn the event this information is protected by the Federal Confidentiality of Alcohol and Drug Abuse Patient Records regulations: The Federal rules restrict any use of the information to criminally investigate or prosecute any alcohol or drug abuse patient.[facility] HealthIn the event this information is protected by the Federal Confidentiality of Alcohol and Drug Abuse Patient Records regulations: The Federal rules restrict any use of the information to criminally investigate or prosecute any alcohol or drug abuse patient.[facility] HealthIn the event this information is protected by the Federal Confidentiality of Alcohol and Drug Abuse Patient Records regulations: The Federal rules restrict any use of the information to criminally investigate or prosecute any alcohol or drug abuse patient.[facility] HealthIn the event this information is protected by the Federal Confidentiality of Alcohol and Drug Abuse Patient Records regulations: The Federal rules restrict any use of the information to criminally investigate or prosecute any alcohol or drug abuse patient.[facility] HealthIn the event this information is protected by the Federal Confidentiality of Alcohol and Drug Abuse Patient Records regulations: The Federal rules restrict any use of the information to criminally investigate or prosecute any alcohol or drug abuse patient.[facility] HealthIn the event this information is protected by the Federal Confidentiality of Alcohol and Drug Abuse Patient Records regulations: The Federal rules restrict any use of the information to criminally investigate or prosecute any alcohol or drug abuse patient.[facility] HealthIn the event this information is protected by the Federal Confidentiality of Alcohol and Drug Abuse Patient Records regulations: The Federal rules restrict any use of the information to criminally investigate or prosecute any alcohol or drug abuse patient.[facility] HealthIn the event this information is protected by the Federal Confidentiality of Alcohol and Drug Abuse Patient Records regulations: The Federal rules restrict any use of the information to criminally investigate or prosecute any alcohol or drug abuse patient.[facility] HealthIn the event this information is protected by the Federal Confidentiality of Alcohol and Drug Abuse Patient Records regulations: The Federal rules restrict any use of the information to criminally investigate or prosecute any alcohol or drug abuse patient.[facility] HealthIn the event this information is protected by the Federal Confidentiality of Alcohol and Drug Abuse Patient Records regulations: The Federal rules restrict any use of the information to criminally investigate or prosecute any alcohol or drug abuse patient.[facility] HealthIn the event this information is protected by the Federal Confidentiality of Alcohol and Drug Abuse Patient Records regulations: The Federal rules restrict any use of the information to criminally investigate or prosecute any alcohol or drug abuse patient.[facility] HealthIn the event this information is protected by the Federal Confidentiality of Alcohol and Drug Abuse Patient Records regulations: The Federal rules restrict any use of the information to criminally investigate or prosecute any alcohol or drug abuse patient.[facility] HealthIn the event this information is protected by the Federal Confidentiality of Alcohol and Drug Abuse Patient Records regulations: The Federal rules restrict any use of the information to criminally investigate or prosecute any alcohol or drug abuse patient.[facility] HealthIn the event this information is protected by the Federal Confidentiality of Alcohol and Drug Abuse Patient Records regulations: The Federal rules restrict any use of the information to criminally investigate or prosecute any alcohol or drug abuse patient.[facility] HealthIn the event this information is protected by the Federal Confidentiality of Alcohol and Drug Abuse Patient Records regulations: The Federal rules restrict any use of the information to criminally investigate or prosecute any alcohol or drug abuse patient.[facility] HealthIn the event this information is protected by the Federal Confidentiality of Alcohol and Drug Abuse Patient Records regulations: The Federal rules restrict any use of the information to criminally investigate or prosecute any alcohol or drug abuse patient.[facility] HealthIn the event this information is protected by the Federal Confidentiality of Alcohol and Drug Abuse Patient Records regulations: The Federal rules restrict any use of the information to criminally investigate or prosecute any alcohol or drug abuse patient.[facility] HealthIn the event this information is protected by the Federal Confidentiality of Alcohol and Drug Abuse Patient Records regulations: The Federal rules restrict any use of the information to criminally investigate or prosecute any alcohol or drug abuse patient.[facility] HealthIn the event this information is protected by the Federal Confidentiality of Alcohol and Drug Abuse Patient Records regulations: The Federal rules restrict any use of the information to criminally investigate or prosecute any alcohol or drug abuse patient.[facility] HealthIn the event this information is protected by the Federal Confidentiality of Alcohol and Drug Abuse Patient Records regulations: The Federal rules restrict any use of the information to criminally investigate or prosecute any alcohol or drug abuse patient.[facility] HealthIn the event this information is protected by the Federal Confidentiality of Alcohol and Drug Abuse Patient Records regulations: The Federal rules restrict any use of the information to criminally investigate or prosecute any alcohol or drug abuse patient.[facility] HealthIn the event this information is protected by the Federal Confidentiality of Alcohol and Drug Abuse Patient Records regulations: The Federal rules restrict any use of the information to criminally investigate or prosecute any alcohol or drug abuse patient.[facility] HealthIn the event this information is protected by the Federal Confidentiality of Alcohol and Drug Abuse Patient Records regulations: The Federal rules restrict any use of the information to criminally investigate or prosecute any alcohol or drug abuse patient.[facility] Teams (unrecognized sec tion and content) Thiokol Operator Relationship Specialty Start Date End Date Sam Saunders MD [address] [place] [address] PCP - General Internal Medicine 07/09/19 Thiokol Operator Relationship Specialty Start Date End Date Sam Saunders MD [facility] [place] [address] PCP - General Internal Medicine 07/09/19 Thiokol Operator Relationship Specialty Start Date End Date Sam Saunders MD [address] [place] [address] PCP - General Internal Medicine 07/09/19 Thiokol Operator Relationship Specialty Start Date End Date Sam Saunders MD [address] [facility] [place] [place] [address] PCP - General Internal Medicine 07/09/19 Thiokol Operator Relationship Specialty Start Date End Date Sam Saunders MD [address] [facility] [address] PCP - General Internal Medicine 07/09/19 Thiokol Operator Relationship Specialty Start Date End Date Sam Saunders MD [address] [place] [address] PCP - General Internal Medicine 07/09/19 Thiokol Operator Relationship Specialty Start Date End Date Sam Saunders MD [address] [facility] [place] [address] PCP - General Internal Medicine 07/09/19 Thiokol Operator Relationship Specialty Start Date End Date Sam Saunders MD [address] [facility] [place] [place] [address] PCP - General Internal Medicine 07/09/19 Thiokol Operator Relationship Specialty Start Date End Date Sam Saunders MD [address] [facility] [place] [place] [address] PCP - General Internal Medicine 07/09/19 Thiokol Operator Relationship Specialty Start Date End Date Sam Saunders MD [address] [facility] [place] [place] [address] PCP - General Internal Medicine 07/09/19 Thiokol Operator Relationship Specialty Start Date End Date Sam Saunders MD [address] [facility] [place] [place] [address] PCP - General Internal Medicine 07/09/19 Thiokol Operator Relationship Specialty Start Date End Date Sam Saunders MD [address] [facility] [place] [place] [address] PCP - General Internal Medicine 07/09/19 Thiokol Operator Relationship Specialty Start Date End Date Sam Saunders MD [address] [facility] [place] [place] [address] PCP - General Internal Medicine 07/09/19 Thiokol Operator Relationship Specialty Start Date End Date Sam Saunders MD [address] [facility] [place] [place] [address] PCP - General Internal Medicine 07/09/19 Thiokol Operator Relationship Specialty Start Date End Date Sam Saunders MD [address] [place] [address] PCP - General Internal Medicine 07/09/19 Thiokol Operator Relationship Specialty Start Date End Date Sam Saunders MD [address] [place] [address] PCP - General Internal Medicine 07/09/19 Thiokol Operator Relationship Specialty Start Date End Date Sam Saunders MD [address] [place] [address] PCP - General Internal Medicine 07/09/19 Thiokol Operator Relationship Specialty Start Date End Date Sam Saunders MD [address] [place] [address] PCP - General Internal Medicine 07/09/19 Thiokol Operator Relationship Specialty Start Date End Date Sam Saunders MD [address] [place] [address] PCP - General Internal Medicine 07/09/19 Thiokol Operator Relationship Specialty Start Date End Date Sam Saunders MD [address] [place] [address] PCP - General Internal Medicine 07/09/19 Thiokol Operator Relationship Specialty Start Date End Date Sam Saunders MD [address] [place] [address] PCP - General Internal Medicine 07/09/19 Reason for Visit (unrecogniz ed section and content) Specialty Diagnoses / Procedures Referred By Matty t Referred To Contact Orthopedics Diagnoses Effusion of right knee Procedures CONSULT TO ORTHOPAEDICS OFFICE/OUTPATIENT [facility] MDM 60-74 MINUTES Sam Saunders MD [address] [place] [address] Referral ID Status Reason Start Date Expiration Date V isits Requested Visits Authorized [id number] Closed PCP Requested Referral 10/08/2021 10/08/2022 1 [...] Disease Specialty Diagnoses / Procedures Referred By Matty craven Referred To Contact Nephrology Diagnoses Stage 3a chronic kidney disease (HCC) Procedures CONSULT TO NEPHROLOGY OFFICE/OUTPATIENT [facility] 60-74 MINUTES Verito Broderick APRN.CNP [address] [place] [address] Referral ID Status Reason Start Date Expiration Date V isits Requested Visits Authorized [id number] Closed PCP Requested Referral 12/15/2022 12/15/2023 1 1 Reason Comments Patient Question Reason Comments Established Patient Pain FOR RECORDS PERTAINING TO PATIENTS WHO ARE [...] BE BASED ON THE PRIMARY CLINICAL RECORDS. [facility] [employer] provides no warranty or guarantee of the accuracy or completeness of information in this document.
== END | disposition home or self-care (01) ==
PROVIDERS: PCP Internal Medicine; Referring Provider Internal Medicine Gastroenterology; Visit Provider Internal Medicine Gastroenterology
DX: K21.9 Gastro-esophageal reflux disease without esophagitis (principal); K44.9 Diaphragmatic hernia without obstruction or gangrene
CPT/HCPCS: 74221

== ENCOUNTER 2023-04-07 13:57 | Emergency (ER) | payer MEDICAID, SELFPAY ==
[2023-04-07 13:59] VITALS: PULSE 77; RESP 16; TEMP 36.6; O2SAT 98; BMI 43.3
--- NOTE | 2023-04-07 14:23 | CPS ---
PATIENT ARRIVED FOR 6MWT. UPON MEETING HER IN WAITING AREA, SHE WAS SLIGHTLY CLAMMY, FLUSHED, AND COMPLAINING OF UPPER ABDOMINAL AND CHEST DISCOMFORT. PULSE WAS 68, RR 18, SPO2 98% RA. SHE WANTED TO TRY TO DO THE WALK TEST HOWEVER SHE KEPT BENDING AND GRABBING HER MIDSECTION. SHE SAID SHE HAS A HIATAL HERNIA. I TOLD HER WE WERE NOT DOING HER TEST AND ENCOURAGED HER TO BE EVALUATED EITHER IN ER OR BY HER PCP. SHE DECIDED TO GO TO ER AND WAS TAKEN OVER IN A W/C. APPT FOR TESTING WILL BE R/S
--- NOTE | 2023-04-07 14:29 | CT_ITS ---
STUDY: CT ABDOMEN AND PELVIS WITH CONTRAST REASON FOR EXAM: Female, 58 years old. epigastric pain RADIATION DOSAGE (If Supplied By Facility): CTDIvol = ( 12.01 ) mGy, DLP = ( 1182.65 ) mGycm TECHNIQUE: Transaxial images were obtained from the dome of the diaphragm to the symphysis pubis without oral contrast. IV 100mL Isovue-300 was administered. Sagittal and coronal images were reconstructed. Individualized dose optimization techniques were used for this CT. COMPARISON: 10/16/2021. FINDINGS: The visualized lung bases are unremarkable. The visualized portions of the heart are within normal limits. Normal liver. There is non-visualization of the gallbladder, which may be secondary to either contraction or a prior cholecystectomy. Normal spleen. Normal pancreas. Normal bilateral adrenal glands. No acute abnormalities of the kidneys. Bilateral mild to moderately small kidneys consistent with some chronic renal atrophy. No definite renal or ureteral stones are seen. There is no hydronephrosis on either side. Evaluation of the GI tract is limited by absence of oral contrast. Cannot exclude stomach wall thickening. No dilated loops of bowel or evidence for obstruction. Cannot exclude segmental thickening of the rodriguez of the small or large bowel. Cannot exclude enteritis or colitis. Diverticulosis without definite diverticulitis. Appendix within normal limits. Normal abdominal aorta. Normal inferior vena cava. Normal retroperitoneum. Normal urinary bladder. Normal visualized uterus. Normal abdominal wall. There are diffuse degenerative changes of the visualized lumbar spine. CT/Abdomen/Pelvis W IV Cont ONLY IMPRESSION: No acute abnormality. Probable mild to moderate chronic renal failure. Electronically Signed: Nathan Lerma MD at 17:04 EST ,
--- NOTE | 2023-04-07 14:31 | EDS_ITS ---
HPI History of Present Illness Chief Complaint: Abd Pain Informant: patient Onset/Context/Timing Onset: Yesterday Narrative Narrative: Patient presents today with epigastric pain that radiates into her chest. She s tates last night she started feeling very hot. She is unable to tell me this felt like a fever or hot flash. Today she states she just felt off with some dizziness and off-balance. She has burning in her epigastrium that radiates up into her chest. Patient does have a history of reflux as well as hiatal hernia. She is on multiple medications for this. She states she was supposed to have surgery for her hiatal hernia in 2019 but this was delayed secondary to COVID. When she saw Dr. Byrnes recently he made another referral to a tertiary center for her to be evaluated for this. She is awaiting callback from that office. [facility] Medical History Anxiety Asthma Atrial fibrillation Bilateral carpal tunnel syndrome Bloating Bradycardia Bruises easily Chest pain Cholelithiasis with chronic cholecystitis Diarrhea Edema Fatigue Former smoker Generalized abdominal pain GERD (gastroesophageal reflux disease) Hair loss Hearing loss, left Hiatal hernia History of echocardiogram History of ectopic History of stress test History of syncope (~1999) History of vaginal delivery Hypersomnia Hypothyroidism (acquired) IBS (irritable bowel syndrome) Loose, teeth Low back pain Mid back pain 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 apnea Pain due to vascular prosthetic devices, implants and grafts, sequela Palpitations Post-menopausal Reflux gastritis RUQ abdominal pain Ulcer Wears glasses Home Medications hydrocortisone 2.5 % topical cream 1 applic topical BID skin 12/13/18 [History Last Taken Unknown] nitroglycerin 0.4 mg sublingual tablet 0.4 mg sublingual Q5M PRN Cardiac/Chest Pain ##10 01/23/19 [Rx Last Taken Unknown] albuterol sulfate 90 mcg/actuation aerosol inhaler (ProAir HFA) 2 puff inhalation Q4H PRN Sob &/Or Wheezing #18 grams 02/13/19 [Rx Last Taken Unknown] fluticasone propionate 50 mcg/actuation nasal spray,suspension (Allergy Relief (fluticasone)) 2 spray intranasal DAILY nasal dryness #9.9 grams 09/10/19 [Rx Last Taken Unknown] aspirin 81 mg tablet,delayed release 81 mg PO DAILY@0800 #90 tabs 10/08/22 [Rx Last Taken Unknown] atorvastatin 20 mg tablet 20 mg PO DAILY #90 tabs 10/08/22 [Rx Last Taken Unknown] carvedilol 3.125 mg tablet 3.125 mg PO BID heart #180 tabs 10/08/22 [Rx Last Taken Unknown] omeprazole 40 mg capsule,delayed release mg PO DAILY 11/25/22 [History Last Taken Unknown] spironolactone 25 mg tablet 25 mg PO DAILY #30 tabs 11/25/22 [Rx Last Taken Unknown] furosemide 40 mg tablet 40 mg PO BID #60 tabs 12/09/22 [Rx Last Taken Unknown] ketotifen fumarate 0.025 % (0.035 %) eye drops (Eye Itch Relief) 1 drp ophthalmic (eye) BID PRN 02/25/23 [History Last Taken Unknown] olopatadine 0.1 % eye drops 1 drp ophthalmic (eye) BID PRN 02/25/23 [History Last Taken Unknown] levothyroxine 112 mcg tablet 112 mcg PO DAILY #90 tabs 03/04/23 [Rx Last Taken Unknown] diclofenac sodium 75 mg tablet,delayed release mg PO BID 03/29/23 [History Last Taken Unknown] fluticasone propionate 220 mcg/actuation HFA aerosol inhaler 2 puff inhalation BID 03/29/23 [History Last Taken Unknown] potassium chloride 10 mEq capsule,extended release 10 meq PO DAILY 03/29/23 [History Last Taken Unknown] tramadol 50 mg tablet mg PO Q6H PRN pain 03/29/23 [History Last Taken Unknown] colestipol 1 gram tablet 2 g (2 x 1 gram) PO BID diarrhea 90 days #360 tabs 04/04/23 [Rx Last Taken Unknown] dicyclomine 20 mg tablet 20 mg PO TID PRN abdominal pain #90 tabs 04/04/23 [Rx Last Taken Unknown] pantoprazole 40 mg tablet,delayed release (Protonix) 40 mg PO BID #180 tabs 04/04/23 [Rx Last Taken Unknown] Allergy/AdvReac Type Severity Reaction Status Date / Time No Known Allergies Allergy Verified 04/07/23 13:57 Family History Mother Atrial fibrillation CVA (cerebral vascular accident) Diabetes Father Myocardial infarction CAD (coronary artery disease) Sister Pacemaker Surgical History History of cardiac catheterization History of cholecystectomy (~07/22/20) History of right and left heart catheterization (01/23/19) History of tooth extraction Hx of colonoscopy Hx of esophagogastroduodenoscopy Social History Smoking Status: Former smoker quit date: 05/30/09 pack-years: 15 alcohol intake: never substance use type: does not use caffeine: No ROS ROS ED Constitutional Constitutional ED: Denies chills or fever(s) Eyes Eyes: Denies change in vision or discharge from eye(s) ENT ENT ED: Denies discharge from eye(s), rhinorrhea or sore throat Cardiovascular Cardiovascular: Reports chest pain; Denies palpitations Respiratory/Chest Respiratory/Chest: Denies cough or dyspnea Gastrointestinal Gastrointestinal: Reports abdominal pain and nausea; Denies diarrhea or vomiting Genitourinary Genitourinary ED: Denies dysuria Musculoskeletal Musculoskeletal: Denies back pain or extremity pain Integumentary Denies Abrasions or rash Neurologic Neurologic: Reports weakness; Denies headache(s) Psychiatric Psychiatric: Denies anxiety or depression Allergic/Immunologic Allergic/Immunologic ED: Denies lip swelling or urticaria EXAM Physical Exam Const Vital Signs: 04/07/23 13:59 04/07/23 16:38 Temperature 97.9 F Temperature Source Temporal Pulse Rate 77 62 Respiratory Rate 16 21 H Blood Pressure 95/65 Blood Pressure Mean 75 Pulse Ox 98 95 Oxygen Delivery Method Room Air Positive obese Nutritional Appearance: obese HEENT Reports moist mucous membranes Eyes EOMs intact bilaterally Neck no lymphadenopathy Chest Wall inspection of chest normal and palpation of chest normal Resp normal respiratory effort and clear to auscultation bilaterally Cardio regular rate and regular rhythm GI GI Narrative: Abdomen soft with epigastric tenderness. No guarding or rebound. Auscultation: normoactive bowel sounds Extremity normal to inspection Neuro oriented x3 Neuro Narrative: No focal neurologic deficit. Skin no rashes or lesions noted MDM MDM MDM Narrative Medical decision making narrative: Patient placed on nuclear monitoring technician. EKG obtained to evaluate for cardiac arrhythmia/ischemia. IV line established. Labwork obtained to evaluate for leukocytosis, anemia, and electrolyte derangement. Chest x-ray obtained to evaluate for acute lung pathology, cardiac size, or mediastinal abnormality. CT scan abdomen pelvis with IV contrast obtained to evaluate for bowel abnormality, pancreatitis, liver abnormality. History & Record Review Discussion w/independent historian: Patient Additional record(s) reviewed:: Prior outpatient record, Prior ED visit and Prior labs Lab Data Attestation: I reviewed the patient's lab results. Labs: Laboratory Results - last 24 hr 04/07/23 15:00 WBC 9.4 RBC 5.21 Hgb 14.7 Hct 44.5 MCV 85.4 MCH 28.2 MCHC 33.0 RDW Std Deviation 41.1 RDW Coeff of Collin 13.2 Plt Count 212 MPV 11.3 Immature Gran % (Auto) 0.200 Neut % (Auto) 66.6 Lymph % (Auto) 21.6 Cecil % (Auto) 9.8 Eos % (Auto) 1.1 Baso % (Auto) 0.7 Absolute Neuts (auto) 6.2 Absolute Lymphs (auto) 2.02 Nucleated RBC % 0 Sodium 135 L Potassium 3.4 L Chloride 101 Carbon Dioxide 26.0 Anion Gap 8 BUN 20 H Creatinine 1.31 H Estim Creat Clear Calc 59.45 Est GFR (MDRD) Af Amer 53 L Est GFR (MDRD) Non-Af 44 L BUN/Creatinine Ratio 15.3 Glucose 111 H Calcium 9.4 Total Bilirubin 0.90 Direct Bilirubin 0.24 AST 21 ALT 28 Alkaline Phosphatase 167 H Troponin I High Sens 7 Total Protein 8.1 Albumin 3.7 Globulin 4.4 H Lipase 21 Urine Color Yellow Urine Clarity Clear Urine pH 6.5 Ur Specific Bailey 1.010 Urine Protein Negative Urine Glucose (UA) Normal Urine Ketones Negative Urine Occult Blood Negative Urine Nitrite Negative Urine Bilirubin Negative Urine Urobilinogen Normal Ur Leukocyte Esterase 25 H Urine RBC 0 SEEN Urine WBC 0-5 SEEN Ur Squamous Epith Cells 0 SEEN Urine Bacteria 0 SEEN Urine Mucus 0 SEEN Radiography Chest X-Ray - ED: 1 View, Read by ED Physician and Chronic Changes Diagnostic Testing: Clinical Impression(s) from Imaging Studies Abdomen/Pelvis CT 04/07/23 14:29 IMPRESSION: No acute abnormality. Probable mild to moderate chronic renal failure. Electronically Signed: Nathan Lerma MD at 17:04 EST , Chest X-Ray 04/07/23 14:39 IMPRESSION: Normal x-ray examination of the chest. Electronically Signed: Antoine Woods MD at 14:53 EST , EKG Initial EKG: Attestation: I personally reviewed and interpreted this EKG as follows: Interpretation: Sinus Rhythm (Sinus at 65 with no acute ischemia.) Treatment and Re-Evaluation :: CBC was normal white count 9.4 with a hemoglobin of 14.7. Differential unremarkable. Chemistry studies reveal a sodium of 135 and a potassium of 3.4. BUN is 20 and creatinine is 1.31, consistent with her prior values. LFTs significant only for an alk phos of 167. Lipase is normal at 21. Urinalysis reveals no evidence of infection. Chest x-ray per my interpretation reveals chronic changes with no focal infiltrate. EKG is sinus rhythm with no acute ischemia. CT scan of the abdomen pelvis reveals no acute abnormalities. Probable chronic renal failure. On repeat evaluation patient states she still having some intermittent pain up into her chest. Will give her a dose of Bentyl. She did state that Dr. Byrnes recently prescribed a new medication for her which she has yet to start. In reviewing his note it does look like he sent a prescription for Bentyl to the pharmacy for her. She is to pick this up and take as prescribed. Return instructions given. Discharge Plan Triage Chief Complaint: Abd Pain ED Provider: Arianne Navarro Dx/Rx/DC Orders Clinical Impression: Acid reflux, Abdominal pain Instructions: ED GERD (Adult), ED Epigastric Pain Uncertain Cause Prescriptions: No Action hydrocortisone 2.5 % cream 1 applic TOPICAL BID albuterol sulfate [ProAir HFA] 90 mcg/actuation HFA aerosol inhaler 2 puff INHALATION Q4H PRN (Reason: Sob &/Or Wheezing) Qty: 18 6RF omeprazole 40 mg capsule,delayed release(DR/EC) PO DAILY Patient Comments: take 1 capsule by mouth daily IN THE MORNING spironolactone 25 mg tablet 25 mg PO DAILY Qty: 30 11RF ketotifen fumarate [Eye Itch Relief] 0.025 % (0.035 %) drops 1 drp ophthalmic (eye) BID PRN Patient Comments: instill 1 drop into both eyes twice a day if needed olopatadine 0.1 % drops 1 drp ophthalmic (eye) BID PRN Patient Comments: instill 1 drop into both eyes twice a day if needed fluticasone propionate 220 mcg/actuation HFA aerosol inhaler 2 puff inhalation BID Patient Comments: inhale 1 puff by mouth and INTO THE LUNGS twice a day shake well ... (REFER TO PRESCRIPTION NOTES). potassium chloride 10 mEq capsule, extended release 10 meq PO DAILY Patient Comments: take 1 capsule by mouth once daily Rx Instructions: Not currently taking pantoprazole [Protonix] 40 mg tablet,delayed release (DR/EC) 40 mg PO BID Qty: 180 3RF dicyclomine 20 mg tablet 20 mg PO TID PRN (Reason: abdominal pain) Qty: 90 1RF colestipol 1 gram tablet 2 g PO BID 90 Days Qty: 360 3RF levothyroxine 112 mcg tablet 112 mcg PO DAILY Qty: 90 1RF tramadol 50 mg tablet PO Q6H PRN (Reason: pain) Patient Comments: take 1 tablet by mouth every 6 hours if needed for pain diclofenac sodium 75 mg tablet,delayed release (DR/EC) PO BID Patient Comments: take 1 tablet by mouth twice a day nitroglycerin 0.4 MG tablet, sublingual 0.4 mg SL Q5M PRN (Reason: Cardiac/Chest Pain) Qty: 10 0RF fluticasone propionate [Allergy Relief (fluticasone)] 50 mcg/actuation spray,suspension 2 spray INTRANASAL DAILY Qty: 9.9 6RF aspirin 81 mg tablet,delayed release (DR/EC) 81 mg PO DAILY@0800 Qty: 90 3RF atorvastatin 20 mg tablet 20 mg PO DAILY Qty: 90 3RF carvedilol 3.125 mg tablet 3.125 mg PO BID Qty: 180 3RF furosemide 40 mg tablet 40 mg PO BID Qty: 60 11RF Primary Care Provider: Sam Null Referrals: Kemar Byrnes DO [Med Staff - Active Staff] - 1-2 Weeks Sam Null MD [Primary Care Provider] - 1 Week if not improving Activity Restrictions/Additional Instructions: Please pear picker the medications Dr. Byrnes prescribed you from the pharmacy. Disposition Disposition: Home, Self Care
[2023-04-07] MEDS: 0.9% Normal Saline (1000mL) 1,000 ML 150 ML IV (14:37)
[2023-04-07] MEDS: Morphine 4 MG/ML Syringe IV (14:38)
[2023-04-07] MEDS: Mag Hydrox/Al Hydrox/Simeth 30 ML UDC PO (14:38)
[2023-04-07] MEDS: Ondansetron 4 MG/2 ML Vial IV (14:38)
--- NOTE | 2023-04-07 14:39 | RAD_ITS ---
STUDY: X-RAY CHEST REASON FOR EXAM: Female, 58 years old. cp TECHNIQUE: Single AP portable view of the chest. COMPARISON: None. FINDINGS: EKG electrodes are seen. The lungs are clear and expanded. There is no demonstrated pleural abnormality. Normal size heart. Normal mediastinum and gilbert. Normal visualized pulmonary arteries. Normal visualized aortic arch and descending thoracic aorta. Normal visualized thoracic spine. Normal visualized ribs, clavicles, and shoulders. There is no demonstrated abnormality of the visualized soft tissue structures of the upper abdomen. RAD/Chest 1 View (Portable) IMPRESSION: Normal x-ray examination of the chest. Electronically Signed: Antoine Woods MD at 14:53 EST ,
[2023-04-07 15:16] LABS: Bacteria 0 SEEN /hpf (None Seen); Mucous, Urine 0 SEEN /hpf (<or=2+); Red Blood Cells-Urine 0 SEEN /hpf (0-5); Squamous Epithelial Cells - UA 0 SEEN /hpf (5-10)
[2023-04-07] MEDS: Pantoprazole Sodium 40 MG in 0.9% Normal Saline (100mL MB+) 100 ML 330 MG IV (15:16)
[2023-04-07 15:18] LABS: Absolute Lymphocyte Count 2.02 X10^3/uL (0.83-4.51); Absolute Neutrophil Count 6.2 X10^3/uL (2.0-7.7); Basophil# 0.07 X10^3/uL; Basophil% 0.7 % (0-1); Eosinophils% 1.1 % (0-5); Hematocrit 44.5 % (37-47); Hemoglobin 14.7 g/dL (12.0-15.0); Lymphocyte # 2.02 X10^3/ul (0.83-4.51); Lymphocyte % 21.6 % (19-41); Mean Corpuscular Hgb 28.2 pg (27.0-32.0); Mean Corpuscular Volume 85.4 fL (81-99); Mean Platelet Vol. 11.3 fl (6.2-12.0); Monocyte# 0.92 X10^3/uL; Monocyte% 9.8 % (0-10); NRBC Flagged by Analyzer 0 % (0-5); Neutrophil # 6.24 X10^3/uL (2.7-7.7); Neutrophil % 66.6 % (47-70); Platelet Count 212 K/mm3 (150-450); RBC Distribution Width CV 13.2 % (11.6-14.6); RBC Distribution Width SD 41.1 fl (35.1-43.9); Red Blood Count 5.21 M/mm3 (4.2-5.4); White Blood Count 9.4 K/mm3 (4.4-11.0)
--- OUTSIDE RECORDS SUMMARY | 2023-04-07 15:31 | XMS RPT_ITS | CCD ---
Author Name Unknown Address [address] [place] [address] Organization [facility] Care Team Providers Care Import Export Coordinator Name Role Phone SAM SAUNDERS Unavailable Unavailable Nicky CHILDERS, Sam Benitez Primary Care Provider [phone] Nicky CHILDERS, Sam Benitez Primary Care Provider [phone] Nicky CHILDERS, Sam Benitez Primary Care Provider [phone] SAM SAUNDERS Primary Care Unavailable VERITO CASH Attending Unavailable SAM SAUNDERS Referring Unavailable SAM SAUNDERS Primary Care Unavailable VERITO CASH Attending Unavailable SAM SAUNDERS Primary Care Unavailable VERITO [facility]SA[facility] Attending Unavailable SAM SAUNDERS Primary Care Unavailable VERITO CASH Referring Unavailable SAM SAUNDERS Primary Care Unavailable VERITO CASH Referring Unavailable SAM SAUNDERS Primary Care Unavailable VERITO CASH Referring Unavailable SAM SAUNDERS Primary Care Unavailable VERITO CASH Referring Unavailable RAFFAELE MUSTAFA Attending Unavailbrunilda e SAM SAUNDERS Primary Care Unavailable VERITO CASH Referring Unavailable RAFFAELE MUSTAFA Referring Unavailabl e NICKY, SAM Benitez Primary Care Unavailable RAFFAELE MUSTAFA Referring Unavailabl e NICKY, SAM Benitez Primary Care Unavailable SELWYN HYATT Referring Unavailable NICKY, SAM Benitez Primary Care Unavailable SELWYN HYATT Attending Unavailable SAM SAUNDERS Primary Care Unavailable SELWYN HYATT Referring Unavailable SAUNDERSSAM GUEVARA Primary Care Unavailable SAUNDERS, LUCRECIA Primary Care Unavailable VERITO CASH Referring Unavailable Allergies Allergy Classification Reported Allergen(s) Allergy Type Date of Onset Reaction(s) Facility (20 sources) Seasonal allergy; 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: [SEASONAL ALLERGIES] Propensity to adverse reactions 04-08-2021 Intolerance [facility] Work Phone: Medications Current Medications Medication [...] Drug Class(es) Dates Sig (Normalized) Sig (Original) [id number] 200 actuat albuterol 0.09 mg/actuat metered dose [...] 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: [Other reduced mobility] Episodic Allergic reactions (3 sources) Eczema; 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: [Dermatitis, unspecified] Onset: 4 10-08-2022 Episodic Asthma (20 sources) Asthma; 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: [...] disease without esophagitis] Onset: 1 07-29-2010 Chronic Malaise and fatigue (1 source) Other fatigue; 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: [Fatigue, unspecified type] Onset: 4 Episodic Nephritis; nephrosis; renal sclerosis (8 sources) Atrophy [...] syndrome with diarrhea] Onset: 6 Chronic Other lower respiratory disease (1 source) Shortness of breath; 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: [SOB (shortness of breath)] Onset: 4 Episodic Other nervous system disorders (20 sources) Bilateral [...] 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: [Abnormal weight gain] 11-17-2022 Episodic Other screening for suspected conditions (not [...] and ureter, unspecified; 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: [Renal insufficiency] Onset: 11-25-2022 Episodic Other nutritional; endocrine; and metabolic disorders (1 source) Abnormal weight gain; 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: [Weight gain] Onset: 11-17-2022 Episodic Residual codes; unclassified (20 sources) Edema; 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: [Edema, unspecified] Onset: 06-13-2008 06-13-2008 Episodic Residual codes; unclassified (1 source) Edema, unspecified; 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: [Edema, unspecified type] Onset: 06-13-2008 Episodic Spondylosis; intervertebral disc disorders; other back problems (20 sources) Chronic low back pain; 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: [Chronic midline low back pain without sciatica] Onset: 07-31-2015 04-05-2017 Episodic Results Test Name Value Interpretation Reference Range Facil ity Vital Signs Date Time Vital Sign Value Performing Clinician Faci lity 01-27-2023 13:09-0500 Body weight 117.94 kg Raffaele Mustafa MD Work Phone: [facility] 11-17-2022 16:58-0400 Body height 157.5 cm Verito Older OUTPATIENT SCHEDULER.PUBLICATIONS INSPECTOR Work Phone: [facility] 11-17-2022 16:58-0400 Body weight 118.39 kg Verito Older OUTPATIENT SCHEDULER.PUBLICATIONS INSPECTOR Work Phone: [facility] 11-17-2022 16:58-0400 Diastolic blood pressure 74 mm[Hg] Verito Older OUTPATIENT SCHEDULER.PUBLICATIONS INSPECTOR Work Phone: [facility] 11-17-2022 16:58-0400 Heart rate 72 /min Verito Older OUTPATIENT SCHEDULER.PUBLICATIONS INSPECTOR Work Phone: [facility] 11-17-2022 16:58-0400 Respiratory rate 20 /min Verito Older OUTPATIENT SCHEDULER.PUBLICATIONS INSPECTOR Work Phone: [facility] 11-17-2022 16:58-0400 SaO2% (BldA) [Mass fraction] 98 % Verito Older OUTPATIENT SCHEDULER.PUBLICATIONS INSPECTOR Work Phone: [facility] 11-17-2022 16:58-0400 Systolic blood pressure 106 mm[Hg] Verito Older OUTPATIENT SCHEDULER.PUBLICATIONS INSPECTOR Work Phone: [facility] Encounters Encounter Date Encounter Type Care Provider Facility Start: 03-21-2023 End: 03-22-2023 ambulatory SAM SAUNDERS Facility:[facility] Start: 02-25-2023 Telephone encounter Raffaele Mustafa MD Work Phone: [facility] Procedures Date Procedure Procedure Detail Performing Clinician Start: 01-27-2023 Lipid 1995 panel - S leda or Plasma Selwyn Hyatt MD Work Phone: Start: 12-03-2022 Us retroperitoneal r eal time w/image complete Verito Older OUTPATIENT SCHEDULER.PUBLICATIONS INSPECTOR Work Phone: Start: 11-17-2022 INFLUENZA VACCINE, A GE 6 MO - 64 YR, QUADRIVALENT (AFLURIA, FLULAVAL, FLUZONE) Verito Older OUTPATIENT SCHEDULER.PUBLICATIONS INSPECTOR Work Phone: Start: 04-08-2021 Adult depression scr eening assessment Sam Saunders MD Work Phone: Start: 07-17-2020 Colonoscopy Sam Lopez MD Work Phone: Start: 05-27-2020 Lipid 1995 panel - S leda or Plasma Stephanie Lowe PA-C Work Phone: Plan of Treatment Date Care Activity Detail Author Start: 11-17-2032 Urine microalbumin profile [facility] Start: 01-28-2028 Lipid 1996 panel - S leda or Plasma Lipid Screening [facility] Start: 01-28-2028 Lipid panel Lipid Screening [facility] Start: 11-25-2025 Diabetes Screening Diabetes Screenin g [facility] Start: 07-17-2025 Colonoscopy COLONOSCOPY [facility] Start: 07-17-2025 COLORECTAL CANCER SCREENING COLORECTAL CANCER SCREENING [facility] Start: 07-17-2025 Screening for malign ant neoplasm of colon [facility] Start: 05-27-2025 Lipid 1996 panel - S leda or Plasma Lipid Screening [facility] Start: 05-27-2025 LIPID SCREEN LIPID SCREEN [facility] Start: 03-20-2024 DIABETES SCREEN DIABETES SCREEN [facility] Start: 01-28-2024 Creatinine measurement Serum Creatin ine [facility] Start: 01-28-2024 Serum Creatinine Serum Creatinine Cl [facility] Start: 11-26-2023 Serum Creatinine Serum Creatinine [facility] Start: 11-18-2023 ANNUAL PCP TEAM PARKING ANALYST BRIAN DISEASE VISIT ANNUAL PCP TEAM CHRONIC DISEASE VISIT [facility] Start: 11-18-2023 COVID-19 VACCINE (#1) COVID-19 VACCI NE (#1) [facility] Immunizations Immunization Date Immunization Notes Care Provider Eusebia weiss 11-17-2022 influenza, injectabl e, quadrivalent, contains preservative Verito Older OUTPATIENT SCHEDULER.PUBLICATIONS INSPECTOR Work Phone: [facility] 11-17-2022 tetanus toxoid, redu mamie diphtheria toxoid, and acellular pertussis vaccine, adsorbed Verito Older OUTPATIENT SCHEDULER.PUBLICATIONS INSPECTOR Work Phone: [facility] 10-08-2021 pneumococcal (PCV20) vaccine, 20 valent (PREVNAR 20) Selwyn Hyatt MD Work Phone: [facility] Work Phone: 12-19-2019 influenza, seasonal, injectable, preservative free Sam Saunders MD Work Phone: [facility] Work Phone: 01-15-2019 influenza, seasonal, injectable, preservative free Sma Saunders MD Work Phone: [facility] Work Phone: 01-12-2019 influenza, seasonal, injectable Sam Saunders MD Work Phone: [facility] 12-03-2016 influenza, injectabl e, quadrivalent, contains preservative Sam Saunders MD Work Phone: [facility] Work Phone: Payers Date Payer Category Payer Medicaid [id number] 2017 Medicaid 2017 Medicaid [facility] MED[facility] MEDICAID [id number] 2017-Present [phone] [address] [place] [address] Medicaid [id number] 2017 Medicaid [id number] Social History Date Type Detail Facility Start: 04-08-2021 End: 11-17-2022 Tobacco smoking status NHIS Ex-smoker [facility] End: 05-30-2009 History of tobacco use Current smoker [facility] End: 05-30-2009 History of tobacco use Cigarette Smoker [facility] Start: 04-09-2021 End: 10-26-2021 Alcohol intake Current non-drinker of alcohol (finding) [facility] Start: 04-08-2021 History SDOH Alcohol Frequency 2 [facility] Start: 04-08-2021 History SDOH Alcohol Std Drinks 1 [facility] Start: 04-08-2021 History SDOH Alcohol Comment rare 1 drink [facility] Start: 04-08-2021 History SDOH Physica l Activity DPW 7 [facility] Start: 04-08-2021 History SDOH Physica l Activity MPS 3 [facility] Start: 04-08-2021 Tobacco Comment started age 16. [facility] Start: 1965 Sex Assigned At Not on file [facility] Start: 04-08-2021 End: 11-11-2022 Cigarettes smoked current (pack per day) - Reported 1 [facility] Work Phone: Start: 04-08-2021 End: 11-17-2022 Tobacco use and exposure Smokeless tobacco non-user [facility] Work Phone: Start: 10-16-2021 End: 10-26-2021 Exposure to SARS-CoV-2 (event) Not sure [facility] Start: 10-26-2021 End: 11-11-2022 Tobacco use panel [facility] Work Phone: National Score (1-10 0), lower number is lower risk 92 [facility] Work Phone: How often to you hav e a drink containing alcohol? Monthly or less [facility] Work Phone: How many standard drinks containing alcohol do you have on a typical day? 1 or 2 [facility] Work Phone: How often do you hav e 6 or more drinks on 1 occasion? Never [facility] Work Phone: Start: 11-17-2022 End: 02-21-2023 Alcohol intake Ex-drinker (finding) [facility] Start: 11-17-2022 Tobacco Comment started age 16 [facility] Clinical Notes 2010 to 03-21-2023 Telephone Encounter - Raffaele Mustafa MD - 02/25/2023 2:29 PM ESTTelephone Encounter - Raffaele Mustafa MD - 02/25/2023 11:18 AM EST Note Date & Type Note Facility 03-21-2023 Note HNO ID: [id number] Author: VERITO CASH APRN.PUBLICATIONS INSPECTOR Service: ? Author Type: Nurse Practitioner Type: Progress Notes Filed: 03/21/2023 15:50 Note Text: CC: Patient presents with: Follow Up HPI Theodora Gant is a 58 year old female who presents today for above. Patient reports ongoing fatigue and SOB. She is seeing multiple specialists for chronic medical conditions: CKD- stage 3a. Recently referred to nephrology. Ultrasound showed right renal atrophy. Creatinine stable. Fzvddpnvidttfb-fpfklcqzknf-ibcy ged by endocrinology Dr. Grant Morgan now. TSH normal however TPO elevated, endocrinology increased levothyroxine from 25 to 112 mcg daily. Patient does not find any of her symptoms she was attributing to her thyroid have improved, especially the fatigue. GERD/hiatal hernia-early satiety, poor appetite, diarrhea. GI evaluation ongoing by Dr. Byrnes. Scheduled for x-ray of her abdomen this month. SOB- patient attributes to always being full of fluid. Her radiology special procedure tech started her on Aldactone and increased Lasix to twice a day without much, if any, relief of symptoms. Review of Systems See HPI PAST MEDICAL HISTORY Diagnosis Date [...] heart catheterization vamshi. ALLERGIES Seasonal Allergies MEDICATIONS furosemide (LASIX) 40 mg tablet traMADol (ULTRAM) 50 mg tablet Take 1 tablet by mouth every 6 hours as needed for pain. spironolactone (ALDACTONE) 25 mg tablet Take 1 [...] well before use. Rinse mouth after use. levothyroxine (SYNTHROID) 25 mcg tablet Take 1 [...] mask of choice, HUMIDITY. LIFETIME SUPPLIES. DME: [facility] albuterol HFA (PROAIR HFA) 90 mcg/actuation inhaler Inhale 2 Puffs as instructed every 4 hours as needed. FAMILY HISTORY Problem Relation Age of Onset [...] Alcohol use: Not Currently Drug use: Never BP 112/68 Pulse 72 Resp 16 Wt 117 kg (258 lb) LMP (LMP Unknown) BMI 47.18 kg/m? Physical Exam Vitals reviewed. Constitutional: Appearance: Normal appearance. Neurological: Mental Status: She is alert. Psychiatric: Mood and Affect: Mood is anxious. Health maintenance reviewed with patient: HPV Testing N (more content not included)... [facility] 02-25-2023 Miscellaneous Notes I called patient and clarified her questions that she had sent through [facility]. Will repeat labs in April. documented in this encounter [facility] 02-25-2023 Miscellaneous Notes Attempted to call the patient to clarify her questions. No answer. Left brief VM. documented in this encounter [facility] documented in this encounter [facility]12-11-2023 NoteHNO ID: [id number] Author: Arcelia Redman RT(R) Service: ? Author Type: Whiting 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 Type: Progress Notes Filed: 02/21/2023 4:21 PM [...] BY: RT Makenna(R) February 21, 2023 4:09 [facility]12-11-2023 NoteHNO ID: [id number] Author: MEGAN SALTER RN Service: ? Author Type: Registered Nurse Type: Progress Notes Filed: 03/20/2023 16:14 Note Text: PT ASSESSMENT - CASTING ROOM Theodora presents for Application of brace. Applied Drytex Econ, Hinged Knee, Wrap XXL to Right knee Patient has been instructed in Care and proper application of brace. Patient signed [employer] paperwork electronically. Megan Salter RN[facility]2023 NoteHNO ID: [id number] Author: SELWYN HYATT MD Service: ? Author Type: Physician Type: Progress Notes Filed: 03/20/2023 16:14 Note Text: Selwyn Hyatt MD Department of Orthopaedics Orthopaedics [address] [facility] [address] Dept: [phone] Dept February 21, 2023 CHIEF COMPLAINT: Established [...] going to take some time. Ms. Theodora Gant was advised as to contrast therapies and/or to take analgesics/anti-inflammatories as needed and all contraindications were reviewed. OBJECTIVE: Ms. Theodora Gant is a pleasant 58 year old in [...] Imaging: IMPRESSION: No acute pathology. Bony demineralization. Audiovisual Librarian: PSCB Transcribe Date/Time: Feb 24 2023 9:11A [...] EGD 07/17/2020 LAPS SURG CHOLECYSTECTOMY W/CHOLANGIOGRAPHY 07/22/2020 [facility] LEFT HEART CATH,PERCUTANEOUS 01/23/2019 L AND [...] mask of choice, HUMIDITY (more content not included)...[facility]12-11-2023 History of Present illness Narrative* Megan Salter, RN - 02/21/2023 4:02 PM EST PT ASSESSMENT - CASTING ROOM Theodora presents for Application of brace. Applied Drytex Econ, Hinged Knee, Wrap XXL to Right knee Patient has been instructed in Care and proper application of brace. Patient signed [employer] paperwork electronically. Megan Salter, RN * Selwyn Hyatt MD - 02/21/2023 3:04 PM EST Selwyn Hyatt MD Department of Orthopaedics Orthopaedics [address] [facility] [address] Dept: [phone] Dept February 21, 2023 CHIEF COMPLAINT: Established [...] going to take some time. Ms. Theodora Gant was advised as to contrast therapies and/or to take analgesics/anti-inflammatories as needed and all contraindications were reviewed. OBJECTIVE: Ms. Theodora Gant is a pleasant 58 year old in [...] Imaging: IMPRESSION: No acute pathology. Bony demineralization. Audiovisual Librarian: TAHIRA Transcribe Date/Time: Feb 24 2023 9:11A [...] EGD 07/17/2020 LAPS SURG CHOLECYSTECTOMY W/CHOLANGIOGRAPHY 07/22/2020 [facility] LEFT HEART CATH,PERCUTANEOUS 01/23/2019 L & [...] mask of choice, HUMIDITY. LIFETIME SUPPLIES. DME: [facility] No current facility-administered medications for this visit. Allergies: Seasonal Allergies ROS: General (negative for fatigue, malaise, weight loss/gain) HEENT (negative for headache, earache, recent vision changes, sinus pain, sore throat) Respiratory (no recent shortness of breath, hemoptysis) CV (negative for chest tightness, palpitations) Musculoskeletal (see HPI) Psych (no depression, anxiety) Selwyn Hyatt MD documented [facility]12[facility]23 NoteHNO ID: [id number] Author: Arcelia Redman RT(R) Service: ? Author Type: Whiting 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 Type: Progress Notes Filed: 02/21/2023 2:21 PM [...] Extremity X-Ray(s): Knee, AP / Lat / Antoninae / [place] Right PERIPHERAL IV DATA: Not applicable SIGNED BY: RT Makenna(R) February 21, 2023 1:57 [facility]11-16-2023 Instructions* Patient Instructions* Raffaele Mustafa MD [...] testing from today. documented in this encounterMer[facility]11-[facility]-2023 NoteHNO ID: [id number] Author: Raffaele Mustafa MD Service: ? Author Type: Physician Type: Progress Notes Filed: 01/27/2023 2:09 PM Note Text: [facility] NEPHROLOGY AND HYPERTENSION [facility] SERVICE DATE: 01/27/2023 SERVICE TIME: 1:46 PM REASON FOR CONSULT: I am asked to see this patient in consultation for my opinion regarding Chronic Kidney Disease. My recommendations will be communicated by way of shared medical record, fax, or mail. REQUESTING PHYSICIAN: Verito Broderick APRN.PUBLICATIONS INSPECTOR PRIMARY CARE PHYSICIAN: Sam Saunders MD CHIEF [...] Class III, BMI 40-49.9 (morbid obesity) ([facility]) 07/27/2017 Tobacco use disorder Unspecified hearing loss left ear - wears hearing aid Unspecified hypothyroidism PAST SURGICAL HISTORY: PAST SURGICAL HISTORY Procedure Laterality Date COLONOSCOPY SCREENING 07/17/2020 EGD 07/17/2020 LAPS SURG CHOLECYSTECTOMY W/CHOLANGIOGRAPHY 07/22/2020 [facility] LEFT HEART CATH,PERCUTANEOUS 01/23/2019 L AND [...] mouth once daily. carve (more content not included)...[facility]11-16-2023 History of Present illness Narrative* Raffaele Mustafa MD - 01/27/2023 10:40 AM EST [facility] NEPHROLOGY & HYPERTENSION [facility] SERVICE DATE: 01/27/2023 SERVICE TIME: 1:46 PM REASON FOR CONSULT: I am asked to see this patient in consultation for my opinion regarding ChronicKidney Disease. My recommendations will be communicated by way of shared medical record, fax, or mail. REQUESTING PHYSICIAN: Verito Broderick APRN.[facility] PRIMARY CARE PHYSICIAN: Sam Saunders MD CHIEF [...] Class III, BMI 40-49.9 (morbid obesity) ([facility]) 07/27/2017 Tobacco use disorder Unspecified hearing loss [...] mask of choice, HUMIDITY. LIFETIME SUPPLIES. DME: [facility] spironolactone (ALDACTONE) 25 mg tablet [...] Date Value 11/17/2022 187 03/20/2021 187 Specific [place], [place] Date Value Ref Range Status 10/16/2015 [...] 1:46 PM CC: REFERRING PROVIDER: Verito Broderick APRN.CNP PRIMARY CARE PHYSICIAN: Sam Saunders MD documented in [facility]Mer[facility]11[facility] Evaluation note* Diagnosis Stage 3a chronic kidney disease (HCC)- Primary Elevated serum creatinine Other nonspecific findings on examination of blood Right renal atrophy Renal sclerosis, unspecified Obesity, Class III, BMI 40-49.9 (morbid obesity) (HCC) Morbid obesity BMI 45.0-49.9, adult (HCC) Body Mass Index 45.0-49.9, adult Gastroesophageal reflux disease without esophagitis Esophageal reflux documented in this encounter [facility]11-16-2023 Reason for referral (narrative)* Outpatient Procedure (Routine) - Authorized Specialty Diagnoses / Procedures Referred By Matty craven Referred To Contact [facility] [place] Diagnoses Stage 3a chronic kidney disease (HCC) Procedures US RENAL ARTERY ALYCIA VAS LAB DUP-SCAN ARTL MARISSA ABDL/PEL/SCROT&/RPR ORGN COM Raffaele Mustafa MD [address] [place] [address] [facility] [place] [address] Referral ID Status Reason Start Date Expiration Date Visits Requested Visits Authorized [id number] Authorized Auto-Generat ed Referral 3 01/27/2024 1 1 [facility]10-16-2023 Miscellaneous Notes* Telephone Encounter - Candelaria [...] Candelaria Kat LPN documented in this encounterMercy [facility]09-22-2023 NoteHNO ID: [id number] Author: Courtney Stallworth RT(R) Service: Radiology Author Type: Technologist Type: Progress Notes Filed: 12/03/2022 2:18 PM Note Text: Radiology Service Progress Note PATIENT NAME: Tehodora Gant DATE OF SERVICE: December 03, 2022 [...] Courtney Stallworth Rdms December 03, 2022 2:18 [facility]09-22-2023 History of Present illness Narrative* Courtney [...] 2022 2:18 PM documented in this encounterMercy [facility] Hospital09-06-2023 NoteHNO ID: [id number] Author: Verito Broderick APRN.ERICK Service: ? Author [...] Class III, BMI 40-49.9 (morbid obesity) ([facility]) 07/27/2017 Tobacco use disorder Unspecified hearing loss [...] mask of choice, HUMIDITY. LIFETIME SUPPLIES. DME: [facility] FAMILY HISTORY Problem Relation Age [...] 2) due on 04/12 (more content not included)...[facility]09-06-2023 Instructions* Patient Instructions* Verito Broderick APRN.CNP - 11/17/2022 5:27 PM EDT You are due for PAP/HPV and mammogram, please call [phone] to schedule documented in this encounterMercy [facility] Hospital09-06-2023 History of Present illness Narrative* Verito [...] Class III, BMI 40-49.9 (morbid obesity) ([facility]) 07/27/2017 Tobacco use disorder Unspecified hearing loss left ear - wears hearing aid Unspecified hypothyroidism PAST SURGICAL HISTORY Procedure Laterality Date COLONOSCOPY SCREENING 07/17/2020 EGD 07/17/2020 LAPS SURG CHOLECYSTECTOMY W/CHOLANGIOGRAPHY 07/22/2020 [facility] LEFT HEART CATH,PERCUTANEOUS 01/23/2019 L & [...] mask of choice, HUMIDITY. LIFETIME SUPPLIES. DME: [facility] FAMILY HISTORY Problem Relation Age of Onset [...] at this time. - Patient was counseled [id number] by myself (the billing provider) for the [...] Verito Broderick APRN.CNP documented in this encounterMercy [facility] Hospital08-23-2023 Miscellaneous Notes* Telephone Encounter - Zaida [...] Krista Tripathi LPN documented in this encounterMercy [facility] Hospital07-31-2023 Miscellaneous Notes* Telephone Encounter - Alana Bland Ma - 10/11/2022 9:50 AM EDT The following approved medication requests have been transmitted electronically. Requested Prescriptions Signed Prescriptions Disp Refills diclofenac, EC, (VOLTAREN) 75 mg EC tablet 60 tablet 0 Sig: Take 1 tablet by mouth twice daily. Authorizing Provider: STEPHANIE LOWE Ma Left detailed voicemail on patient's phone [...] Jing Joaquin RN documented in this encounterMercy [facility] Hospital07-28-2023 Miscellaneous Notes* Telephone Encounter - Briana [...] Briana Ang RN documented in this encounterMercy [facility] Hospital07-05-2023 NotePatient Outreach (INTMMN) THEODORA GANT ([id number]) 1965 F CHT Date Time Provider Department 09/15/22 SAM SAUNDERS INTMMN During your visit today, we recorded the following information about you: Allergies As of Date: 09/15/2022 Noted Allergy Reaction SEASONAL ALLERGIES 04/08/2021 5 - Intolerance Date Reviewed: 10/26/2021 Reviewed by: Selwyn Hyatt MD - Fully Assessed Visit Diagnosis:Encounter for screening mammogram for breast cancer [Z12.31] Order(s):[facility] SCREENING [[id number]] Order #: [id number] FUTURE Prescriptions as of 09/20/2022 - diclofenac, [...] mask of choice, HUMIDITY. LIFETIME SUPPLIES. DME: [facility] Problem List As Of Date [...] 07/17/2020 Encounter Status:Closed by SILAS MENDEZ on 09/20/22[facility] 06-04-2022 Miscellaneous Notes* Telephone Encounter - Grant Newsome Ma - 06/04/2022 4:10 PM EDT New order faxed to [facility]. * Telephone Encounter - Briana Ang RN - 06/02/2022 4:49 PM EDT Althea with [facility] calls to request a more specific diagnosis for rollator. She reports they need to know the cause of the chronic knee pain. Tried obesity and impaired mobility which neither will cover it. Althea requesting call back at [phone] and follow the prompts select option 1 then option 0 to connect to the pharmacy. If Althea isn't available she said to leave a message with pharmacy services director andthey will get the message to her. Briana Ang RN documented in this encounterMercy Memorial Hospital02-07-2023 Miscellaneous Notes* Telephone Encounter - Grant Newsome Ma - 04/20/2022 8:49 AM EST Order re-faxed as requested. Grant Newsome Ma * Telephone Encounter - Krista Tripathi LPN - 04/19/2022 4:45 PM EST Pt had an appt 04/12/22. Pt calls to report an order for a rolling walker was supposed to be faxed to [facility] supply part and pt is being told by DM that they have not received the order. Pt is asking for the order to be re-faxed. Krista Tripathi LPN documented in this encounterMercy Memorial Hospital01-30-2023 NoteHNO ID: [id number] Author: Verito Broderick APRN.PUBLICATIONS INSPECTOR Service: ? Author Type: Nurse Practitioner Type: Progress Notes Filed: 04/12/2022 3:08 PM Note Text: This Team Access Model visit is a virtual encounter. It required patient-provider interaction for the medical decision making as documented below. Patient agrees to the visit: Yes Patient Location: [place] CC: Patient presents with: Follow Up HPI [...] enough information. Needs to repeat. Managed by career development director Dr. Lilly. Taking Protonix daily. If she doesn't take has severe reflux and pain. She is following up with GI for this. Most of her medications are prescribed by non-[facility] specialists including [facility]. REVIEW OF SYSTEMS See HPI PAST [...] Class III, BMI 40-49.9 (morbid obesity) (FORM[facility]LY [facility]) 07/27/2017 Tobacco use disorder Unspecified hearing loss left ear - wears hearing aid Unspecified hypothyroidism PAST SURGICAL HISTORY Procedure Laterality Date COLONOSCOPY SCREENING 07/17/2020 EGD 07/17/2020 LAPS SURG CHOLECYSTECTOMY W/CHOLANGIOGRAPHY 07/22/2020 [facility] LEFT HEART CATH,PERCUTANEOUS 01/23/2019 L AND [...] mask of choice, HUMIDITY. LIFETIME SUPPLIES. DME: [facility] FAMILY HISTORY Problem Relation Age [...] on 10/08/2022 DIABETES S (more content not included)...[facility]01-30-2023 History of Present illness Narrative* Verito Older, OUTPATIENT SCHEDULER.PUBLICATIONS INSPECTOR - 04/12/2022 2:46 PM EST This Team Access Model visit is a virtual encounter. It required patient- provider interaction for the medical decision making as documented below. Patient agrees to the visit: Yes Patient Location: [place] CC: Patient presents with: Follow Up HPI [...] enough information. Needs to repeat. Managed by career development director Dr. Lilly. Taking Protonix daily. If she doesn't take has severe reflux and pain. She is following up with GI for this. Most of her medications are prescribed by non-[facility] specialists including [facility]. REVIEW OF SYSTEMS See HPI PAST [...] Class III, BMI 40-49.9 (morbid obesity) (FORM[facility]LY [facility]) 07/27/2017 Tobacco use disorder Unspecified hearing loss [...] mask of choice, HUMIDITY. LIFETIME SUPPLIES. DME: [facility] FAMILY HISTORY Problem Relation Age [...] diagnosis) Will fax prescription for walker to [facility] per patient request. Follow-up with orthopedics as [...] Verito Broderick APRN.CNP documented in this encounterMercy Memorial Hospital11-29-2022 Miscellaneous Notes* Telephone Encounter - Qian Suh Ma - 02/09/2022 3:39 PM EST Patient has been contacted with message from Stephanie. Patient has been scheduled on 02/15/2022. * Telephone Encounter - Stephanie Lowe PA-C - 02/08/2022 12:32 PM EST She [...] the knee. PT currently being done at [facility] and they advised the patient reach out to our office for further advice as they do not feel she should be having this much discomfort especially in the pool. PT was asking her about possibly gait training with walker or cane and insurance auth/orders. Candelaria Kat LPN documented in this encounterMercy Memorial Hospital10-20-2022 Miscellaneous Notes* Telephone Encounter - Qian Suh Ma - 12/31/2021 10:18 AM EDT Patient called back and patient advised that our office does not fill out Social security disability. Patient states she just found that the office will request records and she does not need to have physicians fill out paperwork. Patient will brass pickler forms that she dropped off. Left at Ortho front office agent. * Telephone Encounter - Qian Suh Ma [...] her for disability. documented in this encounterMercy Memorial Hospital10-11-2022 Miscellaneous Notes* Telephone Encounter - Kandis Blunt LPN - 12/22/2021 2:45 PM EDT Pt brought in form from social security administration to be completed by pcp.to pcp to review. Call pt when ready for brass pickler. She notes they need all medical records too. documented in this encounterMercy Memorial Hospital09-30-2022 Miscellaneous Notes* Telephone Encounter - Qian Suh Ma - 12/11/2021 4:06 PM EDT Patient has been notified and verbalized understanding. * Telephone Encounter - Stephanie Lowe PA-C - 12/09/2021 1:47 PM EDT I sent some oral diclofenac to her pharmacy it will take the place of the L[place]ine. * Telephone Encounter - Qian Suh Ma - 12/09/2021 10:52 AM EDT I called and spoke with patient. Message from Stephanie given. Patient states she has a fear of needles and is not getting an injection. She will try PT at [email or web address]. Patient asking if anti inflammatory can be increased and refilled? Confirmed [facility] pharmacy in [place]. * Telephone Encounter - Stephanie Lowe PA-C - 12/08/2021 4:01 PM EDT Per [...] Jing Joaquin RN documented in this encounterMercy Memorial Hospital08-15-2022 History of Present illness Narrative* Qian [...] MD Department of Orthopaedics [facility] [address] [facility] [address] Dept: [phone] Dept October 26, 2021 Consultation requested by [...] mild degenerative changes in the right knee. Audiovisual Librarian: PSCB Transcribe Date/Time: Oct 09 2021 3:56P Dictated [...] Class III, BMI 40-49.9 (morbid obesity) (FORM[facility]LY [facility]) 07/27/2017 Tobacco use disorder Unspecified hearing loss left ear - wears hearing aid Unspecified hypothyroidism Past Surgical History: PAST SURGICAL HISTORY Procedure Laterality Date COLONOSCOPY SCREENING 07/17/2020 EGD 07/17/2020 LAPS SURG CHOLECYSTECTOMY W/CHOLANGIOGRAPHY 07/22/2020 [facility] LEFT HEART CATH,PERCUTANEOUS 01/23/2019 L & [...] mask of choice, HUMIDITY. LIFETIME SUPPLIES. DME: [facility] No current facility-administered medications for [...] or electronic medical record. Sam Saunders [address] [facility] [address] Sam Saunders MD [address] [facility] [address] Selwyn Hyatt MD documented in this encounterMercy Memorial Hospital01-26-2022 History of Past illness Narrative* Problem [...] this encounter (statuses as of 11/19/2021) [facility] of Past illness Narrative* Problem [...] this encounter (statuses as of 12/11/2021) [facility] of Past illness Narrative* Problem [...] this encounter (statuses as of 12/31/2021) [facility] of Past illness Narrative* Problem [...] of this encounter (statuses as of 01/08/2022) [facility] of Past illness Narrative* Problem [...] of this encounter (statuses as of 02/09/2022) [facility] of Past illness Narrative* Problem [...] of this encounter (statuses as of 04/12/2022) [facility] Past illness Narrative* Problem [...] this encounter (statuses as of 04/20/2022) [facility] of Past illness Narrative* Problem [...] this encounter (statuses as of 06/04/2022) [facility] of Past illness Narrative* Problem Noted Date Resolved Date Dermatophytosis of nail 04/08/2021 10/09/19 Pain in joint, lower leg 2010 016 Tobacco use disorder 06/13/2008 07/31/2015 Overview: Pt interested in quitting as of 08-20 but worried about turning to food Non morbid obesity due to excess calories 200804/08/2021 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 documented as of this encounter (statuses as of 09/15/2022) [facility] Past [facility] Narrative* Problem [...] this encounter (statuses as of 09/20/2022) [facility] of Past illness Narrative* Problem [...] this encounter (statuses as of 10/11/2022) [facility] illness Narrative* Problem [...] this encounter (statuses as of 10/12/2022) [facility] Past illness Narrative* Problem [...] this encounter (statuses as of 11/04/2022) [facility] Past illness Narrative* Problem [...] this encounter (statuses as of 11/18/2022) [facility] Narrative* Problem [...] of this encounter (statuses as of 12/28/2022) [address]26-2022 History of Past illness Narrative* Problem [...] this encounter (statuses as of 01/16/2023) [facility] Narrative* Problem [...] of this encounter (statuses as of 01/27/2023) [address]26-2022 History of Past illness Narrative* Problem [...] this encounter (statuses as of 02/15/2023) [facility] Narrative* Problem [...] this encounter (statuses as of 02/22/2023) [facility] Narrative* Problem [...] this encounter (statuses as of 02/22/2023) [facility] Narrative* Problem [...] of this encounter (statuses as of 02/25/2023) [address]26-2022 History of Past illness Narrative* Problem [...] this encounter (statuses as of 02/26/2023) [facility] Narrative* Problem [...] this encounter (statuses as of 03/20/2023) [facility] of [facility] Narrative* Problem Noted Date Resolved Date Pain in joint, lower leg 2010 016 Tobacco use disorder 06/13/2008 07/31/2015 Overview: Pt interested in quitting as of 08-20 but worried about turning to food Non morbid obesity due to excess calories 200804/08/2021 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 documented as of this encounter (statuses as of 08/26/2021) [facility] of [facility] Narrative* Problem Noted Date Resolved Date Pain in joint, lower leg 2010 016 Tobacco use disorder 06/13/2008 07/31/2015 Overview: Pt interested in quitting as of 08-20 but worried about turning to food Non morbid obesity due to excess calories 200804/08/2021 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 documented as of this encounter (statuses as of 08/31/2021) [facility] of [facility] Narrative* Problem Noted [...] this encounter (statuses as of 09/14/2021) [facility]* Diagnosis Encounter for screening mammogram for breast cancer documented in this encounter [facility]* Diagnosis 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- Primary Effusion of right knee Effusion of lower leg joint documented in this encounter [facility]* Diagnosis 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- Primary Effusion of right knee Effusion of lower leg joint documented in this encounter [facility]* Diagnosis Chronic pain of right knee- Primary Impaired mobility Other ill-defined conditions Obesity, Class III, BMI 40-49.9 (morbid obesity) (HCC) Morbid obesity VETO on CPAP 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 apnea (adult) (pediatric) Bile-induced gastritis Other specified gastritis without mention of hemorrhage Gastroesophageal reflux disease, unspecified whether esophagitis present Chronic renal impairment, stage 3a (HCC) documented in this encounter [facility]* Diagnosis Osteoarthritis of right knee, unspecified osteoarthritis type- Primary Chronic pain of right knee documented in this encounter [facility]* Diagnosis 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 Effusion of right knee Effusion of lower leg joint documented in this encounter [facility]* Diagnosis Encounter for screening mammogram for breast cancer documented in this encounter [facility]* Diagnosis 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 Effusion of right knee Effusion of lower leg joint documented in this encounter [facility] note* Diagnosis Mild intermittent asthma without complication Unspecified asthma Eczema, unspecified type documented in this encounter [facility] note* Diagnosis Mild intermittent asthma without complication Unspecified asthma Eczema, unspecified type documented in this encounter [facility] note* Diagnosis Wellness examination- Primary Weight gain [...] single bacterial disease documented in this encounter [facility] note* Diagnosis 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 Effusion of right knee Effusion of lower leg joint documented in this encounter [facility] note* Diagnosis Renal insufficiency Unspecified disorder of kidney and ureter documented in this encounter [facility] note* Diagnosis Right knee pain, unspecified chronicity- Primary documented in this encounter [facility] note* Diagnosis Right knee pain, unspecified chronicity documented in this encounter [facility] note* Diagnosis Multiple leg contusions, right, initial encounter Acute pain of right knee documented in this encounter [facility] note* Diagnosis Multiple leg contusions, right, initial encounter- Primary Acute pain of right knee Primary osteoarthritis of right knee Primary localized osteoarthrosis, lower leg documented in this encounter [facility] for referral (narrative)* Diagnostic Procedure Only (Routine) - Pending Review Specialty Diagnoses / Procedures Referred By Matty craven Referred To Contact BR IMAGING Diagnoses Encounter for screening mammogram for breast cancer Procedures MEREDITH SCREENING SCREENING MAMMOGRAPHY BI 2-VIEW BREAST INC CAD Sam Saunders MD [address] [place] [address] Br Imaging [facility] [place] [address] Referral ID Status Reason Start Date Expiration Date Visits Requested Visits Authorized [id number] Pending Review Auto-Generat ed Referral 09/09/2021 10/09/2022 1 1 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 for referral (narrative)* Diagnostic Procedure Only (Routine) - Pending Review Specialty Diagnoses / Procedures Referred By Matty craven Referred To Contact BR IMAGING Diagnoses Encounter for screening mammogram for breast cancer Procedures MEREDITH SCREENING SCREENING MAMMOGRAPHY BI 2-VIEW BREAST INC CAD Sam Saunders MD [address] [place] [address] Br Imaging [address] [place] [address] Referral ID Status Reason Start Date Expiration Date Visits Requested Visits Authorized [id number] Pending Review Auto-Generat ed Referral 09/15/2022 10/15/2023 1 1 [facility] for referral (narrative)* Diagnostic Procedure Only (Routine) - Closed Specialty Diagnoses / Procedures Referred By Matty t Referred To Contact US IMAGING Diagnoses Renal insufficiency Procedures US KIDNEY/BLADDER US RETROPERITONEAL REAL TIME W/IMAGE COMPLETE Verito Broderick APRN.CNP [address] [place] [address] [place] [address] Referral ID Status Reason Start Date Expiration Date V isits Requested Visits Authorized [id number] Closed Auto-Generate d Referral 11/18/2022 12/18/2023 1 1 [facility] for referral (narrative)* Diagnostic Procedure Only (Routine) - Pending Review Specialty Diagnoses / Procedures Referred By Contac t Referred To Contact XR IMAGING Diagnoses Right knee pain, unspecified chronicity Procedures XR KNEE GENERAL 4V AP BOTH/PA BOTH/LAT/MERC RIGHT RADIOLOGIC EXAM KNEE COMPLETE 4/MORE VIEWS Selwyn Hyatt MD [address] [place] [address] [place] [address] Referral ID Status Reason Start Date Expiration Date Visits Requested Visits Authorized [id number] Pending Review Auto-Generat ed Referral 02/14/2023 03/15/2024 1 1 [facility] for referral (narrative)* Diagnostic Procedure Only (Routine) - Closed Specialty Diagnoses / Procedures [facility] Referred To Contact XR IMAGING Diagnoses Multiple leg contusions, right, initial encounter Acute pain of right knee Procedures XR TIBIA FIBULA 2V AP/LAT RIGHT RADIOLOGIC EXAMINATION TIBIA & FIBULA 2 VIEWS Selwyn Hyatt MD [address] [place] [address] [place] [address] Referral ID Status Reason Start Date Expiration Date V isits Requested Visits Authorized [id number] Closed Auto-Generate d Referral 02/21/2023 03/22/2024 1 1 [facility] for visit Narrative* Diagnostic Procedure Only (Routine) - Closed Specialty Diagnoses / Procedures [facility] Referred To Contact US IMAGING Diagnoses Renal insufficiency Procedures US KIDNEY/BLADDER US RETROPERITONEAL REAL TIME W/IMAGE COMPLETE Meggan, Verito, OUTPATIENT SCHEDULER.PUBLICATIONS INSPECTOR [address] [place] [address] [place] [address] Referral ID Status Reason Start Date Expiration Date V isits Requested Visits Authorized [id number] Closed Auto-Generate d Referral 11/18/2022 12/18/2023 1 1 [facility] for visit Narrative* Diagnostic Procedure Only (Routine) - Closed Specialty Diagnoses / Procedures Referred By Contac t Referred To Contact XR IMAGING Diagnoses Right knee pain, unspecified chronicity Procedures XR KNEE GENERAL 4V AP BOTH/PA BOTH/LAT/MERC RIGHT RADIOLOGIC EXAM KNEE COMPLETE 4/MORE VIEWS Selwyn Hyatt MD [address] [place] [address] [place] [address] Referral ID Status Reason Start Date Expiration Date V isits Requested Visits Authorized [id number] Closed Auto-Generate d Referral 02/14/2023 03/15/2024 1 1 [facility] N[facility]ative* Diagnostic Procedure Only (Routine) - Closed Specialty Diagnoses / Procedures Referred By Contac t Referred To Contact XR IMAGING Diagnoses Multiple leg contusions, right, initial encounter Acute pain of right knee Procedures XR TIBIA FIBULA 2V AP/LAT RIGHT RADIOLOGIC EXAMINATION TIBIA & FIBULA 2 VIEWS Selwyn Hyatt MD [address] [place] [id number] [place] [address] Referral ID Status Reason Start Date Expiration Date V isits Requested Visits Authorized [id number] Closed Auto-Generate d Referral 02/21/2023 03/22/2024 1 1 [facility] Summary Purpose Family History No Family History Records FoundNo Family History Records Found Advance Directives No Advanced Directives Records FoundDocuments on File Type Date Recorded Patient Ent Physician Expl anation Advance Directive(s) 04/11/2017 1:26 PM Documents on File Type Date Recorded Patient Ent Physician Expl anation Advance Directive(s) 04/11/2017 1:26 PM Reason for Referral Specialty Diagnoses / Procedures Referred By Contac t Referred To Contact Diagnoses Mild intermittent asthma without complication Sam Saunders MD [address] [place] [address] Referral ID Status Reason Start Date Expiration Date Visits Re quested Visits Authorized [id number] Closed 1 1 Specialty Diagnoses / Procedures Referred By Contac t Referred To Contact Diagnoses Wellness examination Procedures CONSULT TO [facility]OM[facility]'S HEALTH OFFICE/OUTPATIENT [facility] 60-74 MINUTES Older, CECELIA Sellers.PUBLICATIONS INSPECTOR [address] [place] [address] Referral ID Status Reason Start Date Expiration Date Visits Requested Visits Authorized [id number] Authorized PCP Requested Referral Auto-Generate d Referral 11/17/2022 11/17/2023 1 1 Additional Source Comments INFORMATION SOURCE (unrecogn ized section and content) DATE CREATED AUTHOR AUTHOR'S ELENA ATION 03/26/2023 [facility] Source Comments (unrecognize d section and content) In the event this informatio n is protected by the Federal Confidentiality of Alcohol and Drug Abuse Patient Records regulations: The Federal rules restrict any use of the information to criminally investigate or prosecute any alcohol or drug abuse patient.[facility] HospitalIn the event this information is protected by the Federal Confidentiality of Alcohol and Drug Abuse Patient Records regulations: The Federal rules restrict any use of the information to criminally investigate or prosecute any alcohol or drug abuse patient.[facility] HospitalIn the event this information is protected by the Federal Confidentiality of Alcohol and Drug Abuse Patient Records regulations: The Federal rules restrict any use of the information to criminally investigate or prosecute any alcohol or drug abuse patient.[facility] HospitalIn the event this information is protected by the Federal Confidentiality of Alcohol and Drug Abuse Patient Records regulations: The Federal rules restrict any use of the information to criminally investigate or prosecute any alcohol or drug abuse patient.[facility] HospitalIn the event this information is protected by the Federal Confidentiality of Alcohol and Drug Abuse Patient Records regulations: The Federal rules restrict any use of the information to criminally investigate or prosecute any alcohol or drug abuse patient.[facility] HospitalIn the event this information is protected by the Federal Confidentiality of Alcohol and Drug Abuse Patient Records regulations: The Federal rules restrict any use of the information to criminally investigate or prosecute any alcohol or drug abuse patient.[facility] HospitalIn the event this information is protected by the Federal Confidentiality of Alcohol and Drug Abuse Patient Records regulations: The Federal rules restrict any use of the information to criminally investigate or prosecute any alcohol or drug abuse patient.[facility] HospitalIn the event this information is protected by the Federal Confidentiality of Alcohol and Drug Abuse Patient Records regulations: The Federal rules restrict any use of the information to criminally investigate or prosecute any alcohol or drug abuse patient.[facility] HospitalIn the event this information is protected by the Federal Confidentiality of Alcohol and Drug Abuse Patient Records regulations: The Federal rules restrict any use of the information to criminally investigate or prosecute any alcohol or drug abuse patient.[facility] HospitalIn the event this information is protected by the Federal Confidentiality of Alcohol and Drug Abuse Patient Records regulations: The Federal rules restrict any use of the information to criminally investigate or prosecute any alcohol or drug abuse patient.[facility] HospitalIn the event this information is protected by the Federal Confidentiality of Alcohol and Drug Abuse Patient Records regulations: The Federal rules restrict any use of the information to criminally investigate or prosecute any alcohol or drug abuse patient.[facility] HospitalIn the event this information is protected by the Federal Confidentiality of Alcohol and Drug Abuse Patient Records regulations: The Federal rules restrict any use of the information to criminally investigate or prosecute any alcohol or drug abuse patient.[facility] HospitalIn the event this information is protected by the Federal Confidentiality of Alcohol and Drug Abuse Patient Records regulations: The Federal rules restrict any use of the information to criminally investigate or prosecute any alcohol or drug abuse patient.[facility] HospitalIn the event this information is protected by the Federal Confidentiality of Alcohol and Drug Abuse Patient Records regulations: The Federal rules restrict any use of the information to criminally investigate or prosecute any alcohol or drug abuse patient.[facility] HospitalIn the event this information is protected by the Federal Confidentiality of Alcohol and Drug Abuse Patient Records regulations: The Federal rules restrict any use of the information to criminally investigate or prosecute any alcohol or drug abuse patient.[facility] HospitalIn the event this information is protected by the Federal Confidentiality of Alcohol and Drug Abuse Patient Records regulations: The Federal rules restrict any use of the information to criminally investigate or prosecute any alcohol or drug abuse patient.[facility] HospitalIn the event this information is protected by the Federal Confidentiality of Alcohol and Drug Abuse Patient Records regulations: The Federal rules restrict any use of the information to criminally investigate or prosecute any alcohol or drug abuse patient.[facility] HospitalIn the event this information is protected by the Federal Confidentiality of Alcohol and Drug Abuse Patient Records regulations: The Federal rules restrict any use of the information to criminally investigate or prosecute any alcohol or drug abuse patient.[facility] HospitalIn the event this information is protected by the Federal Confidentiality of Alcohol and Drug Abuse Patient Records regulations: The Federal rules restrict any use of the information to criminally investigate or prosecute any alcohol or drug abuse patient.[facility] HospitalIn the event this information is protected by the Federal Confidentiality of Alcohol and Drug Abuse Patient Records regulations: The Federal rules restrict any use of the information to criminally investigate or prosecute any alcohol or drug abuse patient.[facility] HospitalIn the event this information is protected by the Federal Confidentiality of Alcohol and Drug Abuse Patient Records regulations: The Federal rules restrict any use of the information to criminally investigate or prosecute any alcohol or drug abuse patient.[facility] HospitalIn the event this information is protected by the Federal Confidentiality of Alcohol and Drug Abuse Patient Records regulations: The Federal rules restrict any use of the information to criminally investigate or prosecute any alcohol or drug abuse patient.[facility] HospitalIn the event this information is protected by the Federal Confidentiality of Alcohol and Drug Abuse Patient Records regulations: The Federal rules restrict any use of the information to criminally investigate or prosecute any alcohol or drug abuse patient.[facility] HospitalIn the event this information is protected by the Federal Confidentiality of Alcohol and Drug Abuse Patient Records regulations: The Federal rules restrict any use of the information to criminally investigate or prosecute any alcohol or drug abuse patient.[facility] HospitalIn the event this information is protected by the Federal Confidentiality of Alcohol and Drug Abuse Patient Records regulations: The Federal rules restrict any use of the information to criminally investigate or prosecute any alcohol or drug abuse patient.[facility] HospitalIn the event this information is protected by the Federal Confidentiality of Alcohol and Drug Abuse Patient Records regulations: The Federal rules restrict any use of the information to criminally investigate or prosecute any alcohol or drug abuse patient.[facility] Care Teams (unrecognized sec tion and content) Import Export Coordinator Relationship Specialty Start Date End Date Sam Saunders MD [address] [place] [address] PCP - General Internal Medicine 07/09/19 Import Export Coordinator Relationship Specialty Start Date End Date Sam Saunders MD [address] [facility] [place] [address] PCP - General Internal Medicine 07/09/19 Import Export Coordinator Relationship Specialty Start Date End Date Sam Saunders MD [address] [facility] [place] [address] PCP - General Internal Medicine 07/09/19 Import Export Coordinator Relationship Specialty Start Date End Date Sam Saunders MD [address] [facility] [place] [address] PCP - General Internal Medicine 07/09/19 Import Export Coordinator Relationship Specialty Start Date End Date Sam Saunders MD [address] [facility] [place] [address] PCP - General Internal Medicine 07/09/19 Import Export Coordinator Relationship Specialty Start Date End Date Sam Saunders MD [address] [facility] [place] [address] PCP - General Internal Medicine 07/09/19 Import Export Coordinator Relationship Specialty Start Date End Date Sam Saunders MD [address] [facility] [place] [address] PCP - General Internal Medicine 07/09/19 Import Export Coordinator Relationship Specialty Start Date End Date aSm Saunders MD [address] [facility] [place] [address] PCP - General Internal Medicine 07/09/19 Import Export Coordinator Relationship Specialty Start Date End Date Sam Saunders MD [address] [facility] [place] [address] PCP - General Internal Medicine 07/09/19 Import Export Coordinator Relationship Specialty Start Date End Date Sam Saunders MD [address] [facility] [place] [address] PCP - General Internal Medicine 07/09/19 Import Export Coordinator Relationship Specialty Start Date End Date Sam Saunders MD [address] [facility] [place] [address] PCP - General Internal Medicine 07/09/19 Import Export Coordinator Relationship Specialty Start Date End Date Sam Saunders MD [address] [place] [address] PCP - General Internal Medicine 07/09/19 Import Export Coordinator Relationship Specialty Start Date End Date Sam Saunders MD [address] [place] [address] PCP - General Internal Medicine 07/09/19 Import Export Coordinator Relationship Specialty Start Date End Date Sam Saunders MD [address] [place] [address] PCP - General Internal Medicine 07/09/19 Import Export Coordinator Relationship Specialty Start Date End Date Sam Saunders MD [address] [place] [address] PCP - General Internal Medicine 07/09/19 Import Export Coordinator Relationship Specialty Start Date End Date Sam Saunders MD [address] [facility] [place] [address] PCP - General Internal Medicine 07/09/19 Import Export Coordinator Relationship Specialty Start Date End Date Sam Saunders MD [address] [place] [address] PCP - General Internal Medicine 07/09/19 Import Export Coordinator Relationship Specialty Start Date End Date Sam Saunders MD [address] [place], [place] [address] PCP - General Internal Medicine 07/09/19 Import Export Coordinator Relationship Specialty Start Date End Date Sam Saunders MD [address] [place] [address] PCP - General Internal Medicine 07/09/19 Import Export Coordinator Relationship Specialty Start Date End Date Sam Saunders MD [address] [place], [place] [address] PCP - General Internal Medicine 07/09/19 Import Export Coordinator Relationship Specialty Start Date End Date Sam Saunders MD [address] [place], [place] [address] PCP - General Internal Medicine 07/09/19 Reason for Visit (unrecogniz ed section and content) Specialty Diagnoses / Procedures Referred By Matty t Referred To Contact Orthopedics Diagnoses Effusion of right knee Procedures CONSULT TO ORTHOPAEDICS OFFICE/OUTPATIENT [facility] MDM 60-74 MINUTES Sam Saunders MD [address] [place] [address] Referral ID Status Reason Start Date Expiration Date V isits Requested Visits Authorized [id number] Closed PCP Requested Referral 10/08/2021 10/08/2022 1 [...] Disease Specialty Diagnoses / Procedures Referred By Contsridhar t Referred To Contact Nephrology Diagnoses Stage 3a chronic kidney disease (HCC) Procedures CONSULT TO NEPHROLOGY OFFICE/OUTPATIENT [facility] MDM 60-74 MINUTES 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 [facility] [employer] [facility]. provides no warranty or guarantee of the accuracy or completeness of information in this document.
[2023-04-07 15:36] LABS: AST(SGOT) 21 U/L (15-37); Alanine Aminotransfer ALT/SGPT 28 U/L (13-56); Albumin, Serum 3.7 g/dL (3.2-5.0); Alkaline Phosphatase 167 U/L (45-117); Anion Gap 8 (5-15); BUN 20 mg/dL (7-18); BUN/Creat Ratio 15.3 RATIO (10-20); Bilirubin, Direct 0.24 mg/dL (0.00-0.30); Calcium,Total 9.4 mg/dL (8.5-10.1); Chloride 101 mmol/L (98-107); Creatinine, Serum 1.31 mg/dL (0.55-1.02); EST Glomerular Filtration Rate 44 mL/min (>60); Est Glom Filt Rate - Afr Amer 53 mL/min (>60); Estimated Creatinine Clearance 59.45 ml/min; Globulin 4.4 g/dL (2.2-4.2); Glucose 111 mg/dL (74-106); Lipase 21 U/L (13-75); Potassium 3.4 mmol/L (3.5-5.1); Protein, Total 8.1 g/dL (6.4-8.2); Sodium Level 135 mmol/L (136-145); Troponin-I HS 7 pg/mL (3.0-54.0)
[2023-04-07 16:04] LABS: Color, Urine Yellow (Yellow); Glucose, Dipstick Normal (Normal); Ketone-Dipstick Negative (Negative); Leukocyte Esterase-Dipstick 25 /ul (Negative); Nitrite-Dipstick Negative (Negative); Occult Blood-Urine Negative /ul (Negative); Protein-Dipstick Negative (Negative); Urine Bilirubin Dipstick Negative (Negative); Urine Clarity Clear (Clear); Urine Urobilinogen Normal (Normal); Urine pH 6.5 (5.0 - 8.0)
[2023-04-07 16:21] LABS: White Blood Cells 0-5 SEEN /hpf (0-5)
[2023-04-07 16:38] VITALS: BP 95/65; PULSE 62; RESP 21; O2SAT 95
[2023-04-07] MEDS: Dicyclomine 10 MG Capsule 20 MG PO (18:01)
[2023-04-07 18:08] VITALS: BP 96/50; PULSE 66; RESP 12; O2SAT 99
== END 2023-04-07 18:09 | disposition home or self-care (01) ==
PROVIDERS: Emergency Provider Emergency Medicine; PCP Internal Medicine; Visit Provider Emergency Medicine
DX: K21.9 Gastro-esophageal reflux disease without esophagitis (principal); I48.91 Unspecified atrial fibrillation; K44.9 Diaphragmatic hernia without obstruction or gangrene; R10.9 Unspecified abdominal pain; R42 Dizziness and giddiness; Z79.82 Long term (current) use of aspirin; Z79.890 Hormone replacement therapy; Z79.899 Other long term (current) drug therapy; Z87.891 Personal history of nicotine dependence
CPT/HCPCS: 71045; 74177; 80048; 80076; 81001; 83690; 84484; 85025; 93005; 96361; 96365; 96375; 99283; J7030; Q9967; A4216; J2405

== ENCOUNTER → 2023-04-13 | Outpatient (CLI) | payer MEDICAID, SELFPAY ==
--- NOTE | 2023-04-13 12:37 | CT_ITS ---
STUDY: LOW DOSE CT LUNG CANCER SCREENING REASON FOR EXAM: Female, 58 years old. quit 2009. Patient smoked 3 packs per day for 20 years. RADIATION DOSAGE (If Supplied By Facility): CTDIvol = ( 4.02 ) mGy, DLP = ( 119.84 ) mGycm TECHNIQUE: No contrast was administered. Low dose technique was utilized (average mAS-38 and kVp 120). 1.25 mm axial source images with a slice interval of 1.25-mm were reconstructed in lung windows. 2.5 mm axial source images with a slice interval of 2.5-mm were reconstructed in lung windows. 5.0 mm axial source images with a slice interval of 5.0-mm were reconstructed in soft tissue windows. COMPARISON: Comparison is made with prior study dated February 09, 2022. NODULES: No suspicious nodules are seen. Emphysema: No significant emphysematous changes present. Endobronchial lesion: None Aorta: Unremarkable CORONARY ARTERIES: Coronary artery calcification is not seen. Heart: Unremarkable Pulmonary artery: Unremarkable Mediastinal nodes: Small mediastinal lymph nodes. Other chest and abdominal findings: CT/Low Dose CT Lung Screening IMPRESSION: Lung-RADS category 2 - Continue annual screening with LDCT in 12 months. IMPORTANT NOTES FOR USE: ACR Lung-RADS Version 1.1 Assessment Categories Release Date: 2018 Category: Coded 0-4 bases on nodule(s) with highest degree of suspicion. Negative screen is defined as categories 1 and 2; a positive screen is defined as categories 3 and 4. Category 3 and 4A nodules that are unchanged on interval CT should be coded as category 2, and individuals returned to screening in 12 months. Category 4X: Category 3 or 4 nodules with additional imaging findings that increase the suspicion of lung cancer, such as spiculation, GGN that doubles in size in 1 year, enlarged lymph notes, etc. Category Modifiers: S (significant finding unrelated to lung cancer) Electronically Signed: Antoine Woods MD at 13:19 EST ,
== END | disposition home or self-care (01) ==
LOC: CT 12:34
PROVIDERS: PCP Internal Medicine; Referring Provider Nurse Practitioner Acute Care; Visit Provider Nurse Practitioner Acute Care
DX: F17.210 Nicotine dependence, cigarettes, uncomplicated (principal)
CPT/HCPCS: 71271

== ENCOUNTER → 2023-04-27 | Outpatient (CLI) | payer MEDICAID, SELFPAY | END | disposition home or self-care (01) | LOC: SL 19:12 | PROVIDERS: PCP Internal Medicine; Referring Provider Nurse Practitioner Acute Care; Visit Provider Nurse Practitioner Acute Care | DX: G47.33 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 apnea (adult) (pediatric) (principal) | CPT/HCPCS: 95811 ==

== ENCOUNTER → 2023-04-28 | Outpatient (CLI) | payer MEDICAID, SELFPAY ==
[2023-04-28 08:40] LABS: Bacteria 0 SEEN /hpf (None Seen); Mucous, Urine 0 SEEN /hpf (<or=2+); Red Blood Cells-Urine 0 SEEN /hpf (0-5); Squamous Epithelial Cells - UA 0 SEEN /hpf (5-10)
--- OUTSIDE RECORDS SUMMARY | 2023-04-28 08:44 | XMS RPT_ITS | CCD ---
Author Name Unknown Address [address] [place] [address] Organization [facility] Care Team Providers Care Hotel Or Motel Manager Name Role Phone SAM SAUNDERS Unavailable Unavailable Nicky CHILDERS, Sam Benitez Primary Care Provider [phone] Nicky CHILDERS, Sam Benitez Primary Care Provider [phone] Nicky CHILDERS, Sam Benitez Primary Care Provider [phone] RAFFAELE MUSTAFA Attending Unavailabl e NICKY, LUCRECIA Primary Care Unavailable NICKY, LUCRECIA Primary Care Unavailable VERITO CASH Attending Unavailable SAM SAUNDERS Primary Care Unavailable VERITO CASH Referring Unavailable NICKY, SAM Benitez Primary Care Unavailable VERITO CASH Referring Unavailable NICKY, SAM Benitez Primary Care Unavailable VERITO CASH Referring Unavailable SAM SAUNDERS Primary Care Unavailable VERITO CASH Referring Unavailable RAFFAELE MUSTAFA Attending Unavailabl e SAUNDERS, LUCRECIA Primary Care Unavailable VERITO CASH Referring Unavailable RAFFAELE MUSTAFA Referring Unavailabl e NICKY, SAM Benitez Primary Care Unavailable RAFFAELE MUSTAFA Referring Unavailabl e NICKY, LUCRECIA Primary Care Unavailable SELWYN HYATT Referring Unavailable SAUNDERS, LUCRECIA Primary Care Unavailable SELWYN HYATT Attending Unavailable NICKY, LUCRECIA Primary Care Unavailable SELWYN HYATT Referring Unavailable SAUNDERS, LUCRECIA Primary Care Unavailable NICKY, LUCRECIA Primary Care Unavailable VERITO CASH Referring Unavailable SAUNDERS, LUCRECIA Primary Care Unavailable SHREYA, VERITO M Attending Unavailable Allergies Allergy Classification Reported Allergen(s) Allergy Type Date of Onset Reaction(s) Facility (20 sources) Seasonal allergy; 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: [SEASONAL ALLERGIES] Propensity to adverse reactions 04-08-2021 Intolerance [facility] Work Phone: (1 source) Iodine Drug Allergy 04-14-2023 Swelling [facility] Work Phone: Medications Current Medications Medication Drug Class(es) Dates Sig (Normalized) Sig (Original) [id number] 200 actuat albuterol 0.09 mg/actuat metered dose inhaler (20 sources) beta2-Adrenergic Agonist Start: 03-21-2023 End: 04-20-2023 take 2 puff(s) by inhalation every four hours as needed albuterol HFA (PROAIR HFA) 90 mcg/actuation inhaler Indications: Mild intermittent asthma without complication Inhale 2 Puffs as instructed every 4 hours as needed. 1 Each 1 03/21/2023 04/20/2023 Active Completed/Discontinued Medications Medication Drug Class(es) Dates Sig (Normalized) Sig (Original) aspirin 81 mg delayed release oral tablet (20 sources) Platelet Aggregation Inhibitor, Nonsteroidal Anti-inflammatory Drug Start: 01-23-2019 take 1 tablet by mouth once daily aspirin, enteric coated (ASPIRIN, ENTERIC COATED) 81 mg EC tablet Take 1 tablet by mouth once daily. 0 01/23/2019 Active Problems Active Problems Problem Classification Problem [...] Onset: 4 Episodic Nephritis; nephrosis; renal sclerosis (10 sources) Atrophy of right kidney; 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: [Atrophy [...] conditions (not mental disorders or infectious disease) (6 sources) Patient encounter status; 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: [Encounter for [...] encounter] Onset: 3 02-21-2023 Episodic Thyroid disorders (12 sources) Subclinical hypothyroidism; 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: [Other specified hypothyroidism] [...] Vital Sign Value Performing Clinician Faci lity 04-14-2023 13:25-0500 Body height 160 cm Raffaele Mustafa MD Work Phone: [facility] 04-14-2023 13:25-0500 Body weight 113.99 kg Raffaele Mustafa MD Work Phone: [facility] 04-14-2023 13:25-0500 Diastolic blood pressure 72 mm[Hg] Raffaele Mustafa MD Work Phone: [facility] 04-14-2023 13:25-0500 Heart rate 64 /min Raffaele Mustafa MD Work Phone: [facility] 04-14-2023 13:25-0500 SaO2% (BldA) [Mass fraction] 97 % Raffaele Mustafa MD Work Phone: [facility] 04-14-2023 13:25-0500 Systolic blood pressure 115 mm[Hg] Raffaele Mustafa MD Work Phone: [facility] 01-27-2023 13:09-0500 Body weight 117.94 kg Raffaele Mustafa MD Work Phone: [facility] 11-17-2022 16:58-0400 Body height 157.5 cm Verito Older [employer] DEVEL[employer] Work Phone: [facility] 11-17-2022 16:58-0400 Body weight 118.39 kg Verito Older [employer] INSTRU[employer] STACK DEVELOPER Work Phone: [facility] 11-17-2022 16:58-0400 Diastolic blood pressure 74 mm[Hg] Verito Older [employer] INSTRUCTOR[employer] STACK DEVELOPER Work Phone: [facility] 11-17-2022 16:58-0400 Heart rate 72 /min Verito Older [employer] INSTRUCTOR.[employer] STACK DEVELOPER Work Phone: [facility] 11-17-2022 16:58-0400 Respiratory rate 20 /min Verito Older [employer] INSTRUCTOR.[employer] STACK DEVELOPER Work Phone: [facility] 11-17-2022 16:58-0400 SaO2% (BldA) [Mass fraction] 98 % Verito Older [employer] INSTRUCTOR[employer] STACK DEVELOPER Work Phone: [facility] 11-17-2022 16:58-0400 Systolic blood pressure 106 mm[Hg] Verito Older [employer] INSTRUCTOR.L[employer] STACK DEVELOPER Work Phone: [facility] Encounters Encounter Date Encounter Type Care Provider Facility Start: 04-14-2023 End: 04-14-2023 ambulatory RAFFAELE MUSTAFA Facility:[facility] Start: 04-14-2023 End: 04-14-2023 Office outpatient visit 40 minutes Raffaele Mustafa MD Work Phone: [facility] Procedures Date Procedure Procedure Detail Performing Clinician Start: 01-27-2023 Lipid 1995 panel - S leda or Plasma Selwyn Hyatt MD Work Phone: Start: 12-03-2022 Us retroperitoneal r eal time w/image complete Verito Older [employer] INSTRU[employer] ST[employer] DEVELOPER Work Phone: Start: 11-17-2022 INFLUENZA VACCINE, A GE 6 MO - 64 YR, QUADRIVALENT (AFLURIA, FLULAVAL, FLUZONE) Verito Older [employer] INSTRUCTOR[employer] STACK DEVELOPER Work Phone: Start: 04-08-2021 Adult depression scr eening assessment Sam Saunders MD Work Phone: Start: 07-17-2020 Colonoscopy Sam Lopez MD Work Phone: Start: 05-27-2020 Lipid 1996 panel - S leda or Plasma Stephanie Lowe PA-C Work Phone: Plan of Treatment Date Care Activity Detail Author Start: 11-17-2032 Urine microalbumin profile [facility] Start: 01-28-2028 Lipid 1996 panel - S leda or Plasma Lipid Screening [facility] Start: 01-28-2028 [facility] Start: 11-25-2025 Diabetes Screening Diabetes Screenin g [facility] Start: 07-17-2025 Colonoscopy COLONOSCOPY [facility] Start: 07-17-2025 COLORECTAL CANCER SCREENING COLORECTAL CANCER SCREENING [facility] Start: 07-17-2025 Screening for malign ant neoplasm of colon [facility] Start: 05-27-2025 Lipid 1996 panel - S leda or Plasma Lipid Screening [facility] Start: 05-27-2025 LIPID SCREEN LIPID SCREEN [facility] Start: 03-21-2024 Annual PCP Team Runner On brad Disease Visit Annual PCP Team Chronic Disease Visit [facility] Start: 03-21-2024 Screening for malign ant neoplasm of cervix [facility] Immunizations Immunization Date Immunization Notes Care Provider Fa isela 11-17-2022 influenza, injectabl e, quadrivalent, contains preservative Verito Older [employer] INSTRU[employer] ST[employer] DEVELOPER Work Phone: [facility] 11-17-2022 tetanus toxoid, redu mamie diphtheria toxoid, and acellular pertussis vaccine, adsorbed Verito Older [employer] INSTRUCTOR.L[employer] STACK DEVELOPER Work Phone: [facility] 10-08-2021 pneumococcal (PCV20) vaccine, 20 valent (PREVNAR 20) Selwyn Hyatt MD Work Phone: [facility] Work Phone: 12-19-2019 influenza, seasonal, injectable, preservative free Sam Saunders MD Work Phone: [facility] Work Phone: 01-15-2019 influenza, seasonal, injectable, preservative free Sam Saunders MD Work Phone: [facility] Work Phone: 01-12-2019 influenza, seasonal, injectable Sam Saunders MD Work Phone: [facility] 12-03-2016 influenza, injectabl e, quadrivalent, contains preservative Sam Saunders MD Work Phone: [facility] Work Phone: Payers Date Payer Category Payer Medicaid [id number] 2017 Medicaid 2017 Medicaid [employer] MEDICA[employer] [id number] 2017-Present [phone] [address] [place] [address] Medicaid [id number] Social History Date Type Detail Facility Start: 04-08-2021 End: 11-17-2022 Tobacco smoking status NHIS Ex-smoker [facility] End: 05-30-2009 History of tobacco use Current smoker [facility] End: 05-30-2009 History of tobacco use Cigarette Smoker [facility] Start: 04-09-2021 End: 10-26-2021 Alcohol intake Current non-drinker of alcohol (finding) [facility] Start: 04-08-2021 History SDOH Alcohol Frequency 2 [facility] Start: 04-08-2021 History SDOH Alcohol Std Drinks 1 [facility] Start: 04-08-2021 History SDOH Alcohol Comment rare 1 drink [facility] Start: 04-08-2021 History SDOH Physica l Activity DPW 7 [facility] Start: 04-08-2021 History SDOH Physica l Activity MPS 3 [facility] Start: 04-08-2021 Tobacco Comment started age 16. [facility] Start: 1965 Sex Assigned At Not on file [facility] Start: 04-08-2021 End: 11-11-2022 Cigarettes smoked current (pack per day) - Reported 1 [facility] Work Phone: Start: 04-08-2021 End: 11-17-2022 Tobacco use and exposure Smokeless tobacco non-user [facility] Work Phone: Start: 10-16-2021 End: 10-26-2021 Exposure to SARS-CoV-2 (event) Not sure [facility] Start: 10-26-2021 End: 11-11-2022 Tobacco use panel [facility] Work Phone: National Score (1-10 0), lower number is lower risk 92 [facility] Work Phone: How often to you hav e a drink containing alcohol? Monthly or less [facility] Work Phone: How many standard drinks containing alcohol do you have on a typical day? 1 or 2 [facility] Work Phone: How often do you hav e 6 or more drinks on 1 occasion? Never [facility] Work Phone: Start: 11-17-2022 End: 03-21-2023 Alcohol intake Ex-drinker (finding) [facility] Start: 11-17-2022 Tobacco Comment started age 16 [facility] Clinical Notes 2010 to 04-14-2023 Patient InstructionsMerchantRaffaele MD - 04/14/2023 2:00 PM ESTTelephone Encounter - Raffaele Mustafa MD - 02/25/2023 2:29 PM EST Note Date & Type Note Facility 04-14-2023 Note HNO ID: [id number] Author: RAFFAELE MUSTAFA MD Service: ? Author Type: Physician Type: Progress Notes Filed: 04/14/2023 15:05 Note Text: [facility] SERVICE DATE: 04/14/2023 SERVICE TIME: 1:38 PM CHIEF COMPLAINT: Chronic Kidney Disease HPI: Ms. Gant is a 58 year old female with bilateral carpal tunnel, obesity, GERD who presents for chronic kidney disease. Her baseline Cr is 1.0. She has no blood or protein on her UA. ED visit on 04/07/23 showed Cr 1.31 again. Reports she got IVF because she was dehydrated at this time. Did have KBUS done which showed smaller sized kidneys, mild right renal atrophy and rt cortical thinning present. Renal Artery Duplex did not show any renal artery stenosis to suggest the cause of the rt renal atrophy. She reports she is losing weight, ~9 pounds, not trying. She reports fatigue and low appetite. Easily tired by exertion. Tells me she is scheduled to have a stress test. She also reports she is following with Pulmonology and Gastroenterology. Also reports occasional paleness, abdominal pain. Elevated Creatinine Duration (when): unclear Location (where): kidneys Severity (ex: creat 4.5, BP 200/100): Cr 1.3 Quality (ex: sharp, dull): unclear Context (ex: activity at onset or related to condition): rt renal atrophy. Timing (ex: continuous, intermittent): chronic Modifying factors (ex: medications, interventions): None Associated signs AND symptoms (ex: edema, SOB): swelling PAST MEDICAL HISTORY: ACTIVE PROBLEM LIST Asthma Edema Veto On Cpap Gerd (Gastroesophageal Reflux Disease) Chronic Midline Low Back Pain Without Sciatica Irritable Bowel Syndrome With Diarrhea Carpal Tunnel Syndrome, Bilateral Obesity, Class Iii, Bmi 40-49.9 (Morbid Obesity) ([facility]) Stage 3a Chronic Kidney Disease ([facility]) Atypical Chest Pain Bile-Induced Gastritis Colon Polyp Subclinical Hypothyroidism Right Renal Atrophy MEDICATIONS: levothyroxine (SYNTHROID) 112 mcg tablet Take 1 tablet by mouth once daily. Per endocrinology (Dr. Grant Morgan) spironolactone (ALDACTONE) 25 mg tablet Take 1 tablet by mouth every afternoon. Per [facility] albuterol HFA (PROAIR HFA) 90 mcg/actuation inhaler Inhale 2 Puffs as instructed every 4 hours as needed. fluticasone (FLOVENT HFA) 220 mcg/actuation inhaler Inhale 1 Puff as instructed two times a day. Shake well before use. Rinse mouth after use. hydrocortisone 2.5 % cream Apply 1 application to affected area two times a day as needed (Apply sparingly to rash of hands, arms, legs for 1 week.). fluticasone (FLONASE) 50 mcg/actuation nasal spray instill 2 sprays into each nostril once daily at bedtime traMADol (ULTRAM) 50 mg tablet Take 1 tablet by mouth every 6 hours as needed for pain. olopatadine (PATANOL) 0.1 % ophthalmic solution EYE ITCH RELIEF 0.025 % (0.035 %) ophthalmic solution instill 1 drop into both eyes twice a day if needed dicyclomine (BENTYL) 10 mg capsule [address] (PROTONIX) 40 mg tablet Take 1 tablet by mouth twice daily. Take on empty stomach, 1/2 hr before meal. omeprazole (PRILOSEC) 40 mg capsule Take 1 capsule by mouth once daily. colestipol (COLESTID) 1 gram tablet Take 1 [...] mask of choice, HUMIDITY. LIFETIME SUPPLIES. DME: [facility] furosemide (LASIX) 40 mg tablet Take 1 tablet by mouth two times a day. Per [facility] (Patient not taking: Reported on 04/14/2023) ALLERGIES: ALLERGIES Allergen Reactions Seasonal Allergies Intolerance REVIEW OF SYSTEMS: Constitutional: Fatigue Cardiovascular: EPPERSON, water retention Genitourinary: No complaints PHYSICAL EXAM: Ht 160 cm (5' 3 ) Wt 114 kg (251 lb 4.8 oz) LMP (LMP Unknown) BMI 44.52 kg/m? BP - standardized method Pulse 1 BP #1: 118/69 Pulse #1: 72 beats/min 2 BP #2 : 118/78 Pulse #2 : 65 beats/min 3 BP #3 : 111/75 Pulse #3 : 64 beats/min Average Average BP: 115/72 Average Pulse: 64 beats/min Orthostatic vitals Supine Sitting Standing Standing BP : 117/81 Standing pulse : 62 BP cuff location BP cuff location: Right lower arm BP cuff size BP cuff size: large adult Comments for BP values First BP (right) First BP (Right): 126/86 First BP (left) First BP (Left): 121/89 Constitutional: No acute distress, Responsive, and Overweight Eyes: Conjunctiva emilia (more content not included)... [facility] 04-14-2023 Instructions Raffaele Mustafa MD - 04/14/2023 2:08 PM EST Only mild kidney impairment. My biggest concern is that you are on diuretics but also not eating or drinking much. You may try taking Lasix once a day and watch if you gain weight. If you start to swell or get SOB, then resume the twice a day dosing of lasix. Labs on May 12. documented in this encounter [facility] 04-14-2023 History of Presen t illness Narrative [facility] SERVICE DATE: 04/14/2023 SERVICE TIME: 1:38 PM CHIEF COMPLAINT: Chronic Kidney Disease HPI: Ms. Gant is a 58 year old female with bilateral carpal tunnel, obesity, GERD who presents for chronic kidney disease. Her baseline Cr is 1.0. She has no blood or protein on her UA. ED visit on 04/07/23 showed Cr 1.31 again. Reports she got IVF because she was dehydrated at this time. Did have KBUS done which showed smaller sized kidneys, mild right renal atrophy and rt cortical thinning present. Renal Artery Duplex did not show any renal artery stenosis to suggest the cause of the rt renal atrophy. She reports she is losing weight, ~9 pounds, not trying. She reports fatigue and low appetite. Easily tired by exertion. Tells me she is scheduled to have a stress test. She also reports she is following with Pulmonology and Gastroenterology. Also reports occasional paleness, abdominal pain. Elevated Creatinine Duration (when): unclear Location (where): kidneys Severity (ex: creat 4.5, BP 200/100): Cr 1.3 Quality (ex: sharp, dull): unclear Context (ex: activity at onset or related to condition): rt renal atrophy. Timing (ex: continuous, intermittent): chronic Modifying factors (ex: medications, interventions): None Associated signs & symptoms (ex: edema, SOB): swelling PAST MEDICAL HISTORY: ACTIVE PROBLEM LIST Asthma Edema Veto On Cpap Gerd (Gastroesophageal Reflux Disease) Chronic Midline Low Back Pain Without Sciatica Irritable Bowel Syndrome With Diarrhea Carpal Tunnel Syndrome, Bilateral Obesity, Class Iii, Bmi 40-49.9 (Morbid Obesity) ([facility]) Stage 3a Chronic Kidney Disease (Hcc) Atypical Chest Pain Bile-Induced Gastritis Colon Polyp Subclinical Hypothyroidism Right Renal Atrophy MEDICATIONS: levothyroxine (SYNTHROID) 112 mcg tablet Take 1 tablet by mouth once daily. Per endocrinology (Dr. Grant Morgan) spironolactone (ALDACTONE) 25 mg tablet Take 1 tablet by mouth every afternoon. Per [facility] albuterol HFA (PROAIR HFA) 90 mcg/actuation inhaler Inhale 2 Puffs as instructed every 4 hours as needed. fluticasone (FLOVENT HFA) 220 mcg/actuation inhaler Inhale 1 Puff as instructed two times a day. Shake well before use. Rinse mouth after use. hydrocortisone 2.5 % cream Apply 1 application to affected area two times a day as needed (Apply sparingly to rash of hands, arms, legs for 1 week.). fluticasone (FLONASE) 50 mcg/actuation nasal spray instill 2 sprays into each nostril once daily at bedtime traMADol (ULTRAM) 50 mg tablet Take 1 tablet by mouth every 6 hours as needed for pain. olopatadine (PATANOL) 0.1 % ophthalmic solution EYE ITCH RELIEF 0.025 % (0.035 %) ophthalmic solution instill 1 drop into both eyes twice a day if needed dicyclomine (BENTYL) 10 mg capsule [address] (PROTONIX) 40 mg tablet Take 1 tablet by mouth twice daily. Take on empty stomach, 1/2 hr before meal. omeprazole (PRILOSEC) 40 mg capsule Take 1 capsule by mouth once daily. colestipol (COLESTID) 1 gram tablet Take 1 [...] mask of choice, HUMIDITY. LIFETIME SUPPLIES. DME: [facility] furosemide (LASIX) 40 mg tablet Take 1 tablet by mouth two times a day. Per [facility] (Patient not taking: Reported on 04/14/2023) ALLERGIES: ALLERGIES Allergen Reactions Seasonal Allergies Intolerance REVIEW OF SYSTEMS: Constitutional: Fatigue Cardiovascular: EPPERSON, water retention Genitourinary: No complaints PHYSICAL EXAM: Ht 160 cm (5' 3 ) Wt 114 kg (251 lb 4.8 oz) LMP (LMP Unknown) BMI 44.52 kg/m BP - standardized method Pulse 1 BP #1: 118/69 Pulse #1: 72 beats/min 2 BP #2 : 118/78 Pulse #2 : 65 beats/min 3 BP #3 : 111/75 Pulse #3 : 64 beats/min Average Average BP: 115/72 Average Pulse: 64 beats/min Orthostatic vitals Supine Sitting Standing Standing BP : 117/81 Standing pulse : 62 BP cuff location BP cuff location: Right lower arm BP cuff size BP cuff size: large adult Comments for BP values First BP (right) First BP (Right): 126/86 First BP (left) First BP (Left): 121/89 Constitutional: No acute distress, Responsive, and Overweight Eyes: Conjunctiva clear and PERRL Ear, Nose, and Throat: Hearing normal and Lips normal Neck:Trachea midline Cardiovascular:No peripheral edema Regular rate and ryhthm, normal S1 and S2, no murmurs, rubs, or gallops Respiratory: Normal respiratory effort. Lungs clear bilaterally. Abdomen:Soft, non-tender, non-distended. Musculoskeletal: No clubbing or cyanosis of digits. and Normocephalic. Neurologic:CN II-XII intact and Normal sensation Psychiatric: Alert and oriented x self, place, time, and setting Normal mood/affect DATA: Diagnostic tests reviewed for today's visit: Hemoglobin (g/dL) Date Value 11/17/2022 14.2 03/20/2021 13.5 Hematocrit (%) Date Value 11/17/2022 43.2 03/20/2021 41.1 WBC (k/uL) Date Value 11/17/2022 7.93 03/20/2021 5.43 Platelet Count (k/uL) Date Value 11/17/2022 187 03/20/2021 187 Recent Labs 01/27/23 1427 11/25/22 1508 11/17/22 1646 03/20/21 1615 04/05/17 1430 10/16/15 1600 NA 139 140 140 140 137 141 K 4.4 4.9 4.7 3.9 3.7 3.3* CHLOR 103 103 103 103 97 98 CO2 18* 26 26 25 25 30 BUN 16 16 20 10 20 8 CREAT 1.07* 1.28* 1.30* 0.98* 1.06* 1.02 GLUC 76 88 90 89 87 72 ANION 18 11 11 12 15 13 EGFRAA -- -- -- >60 >60 >60 EGFROTH 60 49* 48* 59 54 57 Recent Labs 01/27/23 1427 11/25/22 1508 11/17/22 1646 CA 9.9 10.1 9.7 Recent Labs 01/27/23 1427 P 2.1* No results for input(s): MG in the last 06575 hours. Recent Labs 01/27/23 1427 11/17/22 1646 04/05/17 1430 ALB 4.1 4.4 4.3 Specific [place], Ur Date Value Ref Range Status 01/27/2023 1.011 1.005 - 1.030 Final Glucose, Urine Date Value Ref Range Status 01/27/2023 Negative Negative Final Bilirubin, Urine Date Value Ref Range Status 01/27/2023 Negative Negative Final Ketones, Urine Date Value Ref Range Status 01/27/2023 Negative Negative Final Hemoglobin/Blood,Ur Date Value Ref Range Status 01/27/2023 Negative Negative Final Protein, Urine Date Value Ref Range Status 01/27/2023 Negative Negative Final Urobilinogen, Urine Date Value Ref Range Status 10/16/2015 Normal Normal (<1.1) EU Final Nitrites Date Value Ref Range Status 01/27/2023 Negative Negative Final WBC, Urine Date Value Ref Range Status 01/27/2023 0-5 /HPF 0-5 /HPF Final Latest Reference Range & Units 01/27/23 14:27 Protein/Creat Ratio <0.15 mg/mg 0.08 Albumin/Creat Ratio <30 mg/g <19 Creatinine, Ur Random (UCRR) 20.0 - 300.0 mg/dL 20.0 - 300.0 mg/dL 64.4 62.8 Albumin, Urine Random mg/L <12.0 Renal Artery Duplex 02/17/2023 IMPRESSION Technically difficult exam due to patient's body habitus. Compared to prior study, No priors. AORTA Aorta is patent at level of the renals RIGHT RENAL Right renal artery: 0-59% stenosis. No evidence of hemodynamically significant stenosis. LEFT RENAL Left renal artery: 0-59% stenosis. No evidence of hemodynamically significant stenosis. ASSESSMENT: 58 year old female with bilateral carpal tunnel, obesity, GERD who presents for elevated creatinine. Chronic Kidney Disease Stage 3a Elevated Cr Rt Renal Atrophy Baseline Cr 1.0 Patient has risk factor of Obesity (BMI 47) and PPI. KBUS with smaller sized kidneys and rt kidney with small size and thinned parenchyma. No EMMA by Renal Duplex assessment. No proteinuria, suggests favorable prognosis. Most Recent Cr 1.3, in the setting of low oral intake and diuretics leading to ED visit and IVF. Discussed possible reduction in Lasix to daily dosing from BID dosing. Patient is hesitant, will take this into consideration. GERD: Continues on Chronic PPI, actually on pantoprazole and omeprazole. Reports symptoms recur and are debilitating if she is on either. Bilateral Carpal Tunnel: Outside Echo report reviewed without any other findings to line up with amyloid. Does have Afib. Kidneys are not enlarged. Blood Pressure: At goal today. On Lasix 40 BID and Spironolactone. Volume Status: Patient has history of volume overload and is on diuretics. However now with low PO Intake. Discussed ossible reduction in Lasix to daily dosing from BID dosing. Patient is hesitant, will take this into consideration. PLAN: -Recheck Renal Function panel and CBC in 1 months. -discussed possible 1x/day lasix instead of BID dosing given decreased oral intake. Patient will take this under consideration. -Will leave PPIs alone because patient reports she is debilitated by her symptoms. -Follow up in 6 months. Portions of this note may have been copied from prior entry and edited/amended as needed. It reflects current evaluations and thought process related to the patient's current medical condition. Total time, including reviewing extensive medical records prior to patient visit, related to ongoing management of this patient, history, physical, counseling in detail with family as outlined above, and coordination of care = 55 min SIGNATURE: Raffaele Mustafa MD PATIENT NAME: Theodora Gant DATE: April 14, 2023 TIME: 1:38 PM OFFICE NUMBER: CC: PRIMARY CARE PHYSICIAN: Sam Saunders MD documented in this encounter [facility] 03-21-2023 Note HNO ID: [id number] Author: VERITO CASH APRN.ERICK Service: ? Author Type: Nurse Practitioner [...] Ultrasound showed right renal atrophy. Creatinine stable. Gleyvwkcevivif-grhvnyztjwv-zzeh ged by endocrinology Dr. Grant Morgan now. [...] to always being full of fluid. Her evaluation engineer started her on Aldactone and increased Lasix [...] mask of choice, HUMIDITY. LIFETIME SUPPLIES. DME: [facility] albuterol HFA (PROAIR HFA) 90 mcg/actuation inhaler [...] HPV Testing N (more content not included)... [facility] 02-25-2023 Miscellaneous Notes I called patient and clarified her questions that she had sent through [employer]. Will repeat labs in April. documented in this encounter [facility] 02-25-2023 Miscellaneous Notes Attempted to call the patient to clarify her questions. No answer. Left brief VM. documented in this encounter [facility] documented in this encounter [facility]12-11-2023 NoteHNO ID: [id number] Author: Arcelia Redman RT(R) Service: ? Author Type: Sheet Cutter Type: Progress Notes Filed: 02/21/2023 4:21 PM [...] BY: RT Makenna(R) February 21, 2023 4:09 [facility]12-11-2023 NoteHNO ID: [id number] Author: MEGAN SALTER RN Service: ? Author Type: Registered Nurse Type: Progress Notes Filed: 03/20/2023 16:14 Note Text: PT ASSESSMENT - CASTING ROOM Theodora presents for Application of brace. Applied Drytex Econ, Hinged Knee, Wrap XXL to Right knee Patient has been instructed in Care and proper application of brace. Patient signed [employer] paperwork electronically. [facility] NoteHNO ID: [id number] Author: SELWYN HYATT MD Service: ? Author Type: Physician Type: Progress Notes Filed: 03/20/2023 16:14 Note Text: Selwyn Hyatt MD Department of Orthopaedics Orthopaedics [address] [facility] [address] Dept: [phone] Dept February 21, 2023 CHIEF COMPLAINT: Established [...] Imaging: IMPRESSION: No acute pathology. Bony demineralization. Mandolin Repairer: PSCB Transcribe Date/Time: Feb 24 2023 9:11A [...] mask of choice, HUMIDITY (more content not included)...[facility]12-11-2023 History of Present illness Narrative* Megan Salter RN - 02/21/2023 4:02 PM EST PT ASSESSMENT - CASTING ROOM Theodora presents for Application of brace. Applied Drytex Econ, Hinged Knee, Wrap XXL to Right knee Patient has been instructed in Care and proper application of brace. Patient signed Sally paperwork electronically. Megan Salter RN * Selwyn Hyatt MD - 02/21/2023 3:04 PM EST Selwyn Hyatt MD Department of Orthopaedics Orthopaedics [address] [place] [address] Dept: [phone] Dept February 21, 2023 CHIEF COMPLAINT: Established [...] Imaging: IMPRESSION: No acute pathology. Bony demineralization. Mandolin Repairer: PSCHeike Transcribe Date/Time: Feb 24 2023 9:11A Dictated [...] EGD 07/17/2020 LAPS SURG CHOLECYSTECTOMY W/CHOLANGIOGRAPHY 07/22/2020 [facility] LEFT HEART CATH,PERCUTANEOUS 01/23/2019 L & [...] mask of choice, HUMIDITY. LIFETIME SUPPLIES. DME: [facility] No current facility-administered medications for this visit. Allergies: Seasonal Allergies ROS: General (negative for fatigue, malaise, weight loss/gain) HEENT (negative for headache, earache, recent vision changes, sinus pain, sore throat) Respiratory (no recent shortness of breath, hemoptysis) CV (negative for chest tightness, palpitations) Musculoskeletal (see HPI) Psych (no depression, anxiety) Selwyn Hyatt MD [facility] NoteHNO ID: [id number] Author: Arcelia Redman RT(R) Service: ? Author Type: Sheet Cutter Type: Progress Notes Filed: 02/21/2023 2:21 PM [...] Extremity X-Ray(s): Knee, AP / Lat / Babar / Right PERIPHERAL IV DATA: Not applicable SIGNED BY: RT Makenna(R) February 21, 2023 1:57 [facility]11-16-2023 Instructions* Patient Instructions* Raffaele Mustafa MD - [...] the testing from today. [facility] NoteHNO ID: [id number] Author: Raffaele Mustafa MD Service: ? Author Type: Physician Type: Progress Notes Filed: 01/27/2023 2:09 PM Note Text: [facility] SERVICE DATE: 01/27/2023 SERVICE TIME: 1:46 PM REASON FOR CONSULT: I am asked to see this patient in consultation for my opinion regarding Chronic Kidney Disease. My recommendations will be communicated by way of shared medical record, fax, or mail. REQUESTING PHYSICIAN: Verito Broderick APRN.LAMP STACK DEVELOPER PRIMARY CARE PHYSICIAN: Sam Saunders MD CHIEF [...] Obesity, Class III, BMI 40-49.9 (morbid obesity) ([facility]) 07/27/2017 Tobacco use disorder Unspecified hearing [...] mouth once daily. carve (more content not included)...[facility]11-16-2023 History of Present illness Narrative* Raffaele Mustafa MD - 01/27/2023 10:40 AM EST [facility] SERVICE DATE: 01/27/2023 SERVICE TIME: 1:46 PM REASON FOR CONSULT: I am asked to see this patient in consultation for my opinion regarding ChronicKidney Disease. My recommendations will be communicated by way of shared medical record, fax, or mail. REQUESTING PHYSICIAN: Verito Broderick APRN.LAMP STACK DEVELOPER PRIMARY CARE PHYSICIAN: Sam Saunders MD CHIEF [...] Obesity, Class III, BMI 40-49.9 (morbid obesity) ([facility]) 07/27/2017 Tobacco use disorder Unspecified hearing [...] mask of choice, HUMIDITY. LIFETIME SUPPLIES. DME: [facility] spironolactone (ALDACTONE) 25 mg tablet Take 1 [...] Date Value 11/17/2022 187 03/20/2021 187 Specific [place], Ur Date Value Ref Range Status 10/16/2015 [...] 1:46 PM CC: REFERRING PROVIDER: Verito Broderick APRN.LAMP STACK DEVELOPER PRIMARY CARE PHYSICIAN: Sam Saunders MD [facility] note* Diagnosis Stage 3a chronic kidney disease (HCC)- Primary Elevated serum creatinine Other nonspecific findings on examination of blood Right renal atrophy Renal sclerosis, unspecified Obesity, Class III, BMI 40-49.9 (morbid obesity) (HCC) Morbid obesity BMI 45.0-49.9, adult (HCC) Body Mass Index 45.0-49.9, adult Gastroesophageal reflux disease without esophagitis Esophageal reflux documented in this encounter [facility]11[facility]23 Reason for referral (narrative)* Outpatient Procedure (Routine) - Authorized Specialty Diagnoses / Procedures Referred By Contac t Referred To Contact [facility] Diagnoses Stage 3a chronic kidney disease (HCC) Procedures US RENAL ARTERY ALYCIA VAS LAB DUP-SCAN ARTL MARISSA ABDL/PEL/SCROT&/RPR ORGN COM Raffaele Mustafa MD [address] [place], [place] [id number] [facility] [place] [address] Referral ID Status Reason Start Date Expiration Date Visits Requested Visits Authorized [id number] Authorized Auto-Generat ed Referral 3 01/27/2024 1 1 [facility]10-16-2023 Miscellaneous Notes* Telephone Encounter - Candelaria [...] advise. Candelaria Kat LPN [facility]23 NoteHNO ID: [id number] Author: Mendolera, Courtney, RT(R) Service: Radiology Author Type: Technologist Type: [...] Courtney [address] Rd[address] December 03, 2022 2:18 [facility]09-22-2023 History of Present illness Narrative* Courtney Stallworth [...] 03, 2022 2:18 PM [facility]23 NoteHNO ID: [id number] Author: Verito Broderick APRN.LAMP STACK DEVELOPER Service: ? Author Type: Nurse Practitioner Type: [...] Obesity, Class III, BMI 40-49.9 (morbid obesity) ([facility]) 07/27/2017 Tobacco use disorder Unspecified hearing loss left ear - wears hearing aid Unspecified hypothyroidism PAST SURGICAL HISTORY Procedure Laterality Date COLONOSCOPY SCREENING 07/17/2020 EGD 07/17/2020 LAPS SURG CHOLECYSTECTOMY W/CHOLANGIOGRAPHY 07/22/2020 [facility] LEFT HEART CATH,PERCUTANEOUS 01/23/2019 L AND [...] mask of choice, HUMIDITY. LIFETIME SUPPLIES. DME: [facility] FAMILY HISTORY Problem Relation Age of Onset [...] 2) due on 04/12 (more content not included)...[facility]09-06-2023 Instructions* Patient Instructions* Verito Broderick APRN.CNP - 11/17/2022 5:27 PM EDT You are due for PAP/HPV and mammogram, please call [phone] to schedule [facility] History of Present illness Narrative* Verito [...] Obesity, Class III, BMI 40-49.9 (morbid obesity) ([facility]) 07/27/2017 Tobacco use disorder Unspecified hearing loss left ear - wears hearing aid Unspecified hypothyroidism PAST SURGICAL HISTORY Procedure Laterality Date COLONOSCOPY SCREENING 07/17/2020 EGD 07/17/2020 LAPS SURG CHOLECYSTECTOMY W/CHOLANGIOGRAPHY 07/22/2020 [facility] LEFT HEART CATH,PERCUTANEOUS 01/23/2019 L & [...] mask of choice, HUMIDITY. LIFETIME SUPPLIES. DME: [facility] FAMILY HISTORY Problem Relation Age of Onset [...] at this time. - Patient was counseled [id number] by myself (the billing provider) for the [...] plan. Verito Broderick APRN.CNP [facility] Miscellaneous Notes* Telephone Encounter - Zaida [...] patient. Krista Tripathi LPN [facility] Miscellaneous Notes* Telephone Encounter - Alana [...] advise. Jing Joaquin RN [facility] Miscellaneous Notes* Telephone Encounter - Briana [...] 04/05/2017 17 Please advise. Thank you. Briana Ang, RN [facility]23 NotePatient Outreach (INTMMN) THEODORA GANT ([id number]) 1965 F CHT Date Time Provider Department 09/15/22 SAM SAUNDERS INTMMN During your visit today, we recorded the following information about you: Allergies As of Date: 09/15/2022 Noted Allergy Reaction SEASONAL ALLERGIES 04/08/2021 5 - Intolerance Date Reviewed: 10/26/2021 Reviewed by: Selwyn Hyatt MD - Fully Assessed Visit Diagnosis:Encounter for screening mammogram for breast cancer [Z12.31] Order(s):[facility] SCREENING [[id number]] Order #: [id number] FUTURE Prescriptions as of 09/20/2022 - diclofenac, [...] mask of choice, HUMIDITY. LIFETIME SUPPLIES. DME: [facility] Problem List As Of Date 09/15/2022 Noted [...] 07/17/2020 Encounter Status:Closed by SILAS MENDEZ on 09/20/22[facility] 06-04-2022 Miscellaneous Notes* Telephone Encounter - Grant Newsome Ma - 06/04/2022 4:10 PM EDT New order faxed to [facility]. * Telephone Encounter - Briana Ang RN - 06/02/2022 4:49 PM EDT Althea with [facility] calls to request a more specific diagnosis for rollator. She reports they need to know the cause of the chronic knee pain. Tried obesity and impaired mobility which neither will cover it. Althea requesting call back at [phone] and follow the prompts select option 1 then option 0 to connect to the pharmacy. If Althea isn't available she said to leave a message with corporate director of pharmacy andthey will get the message to her. Briana Ang RN [facility] in [facility]23 Miscellaneous Notes* Telephone Encounter - Grant Newsome Ma - 04/20/2022 8:49 AM EST Order re-faxed as requested. Grant Newsome Ma * Telephone Encounter - Krista Tripathi LPN - 04/19/2022 4:45 PM EST Pt had an appt 04/12/22. Pt calls to report an order for a rolling walker was supposed to be faxed to [facility] and pt is being told by DM that they have not received the order. Pt is asking for the order to be re-faxed. Krista Tripathi LPN documented in [facility] encounterThe [facility]01-30-[facility]23 History of Present illness Narrative* Verito Older, MCAT INSTRUCTOR.LAMP STACK DEVELOPER - 04/12/2022 2:46 PM EST This Team Access Model visit is a virtual encounter. It required patient- provider interaction for the medical decision making as documented below. Patient agrees to the visit: Yes Patient Location: [place] CC: Patient presents with: Follow Up HPI [...] enough information. Needs to repeat. Managed by food broker Dr. Lilly. Taking Protonix daily. If she doesn't take has severe reflux and pain. She is following up with GI for this. Most of her medications are prescribed by non-[facility] specialists including [facility]. REVIEW OF SYSTEMS See HPI PAST [...] Obesity, Class III, BMI 40-49.9 (morbid obesity) ([facility]) 07/27/2017 Tobacco use disorder Unspecified hearing [...] mask of choice, HUMIDITY. LIFETIME SUPPLIES. DME: [facility] FAMILY HISTORY Problem Relation Age of Onset [...] diagnosis) Will fax prescription for walker to [facility] per patient request. Follow-up with orthopedics as [...] care. Verito Broderick APRN.CNP documented in [facility] encounter[facility]11[facility] Miscellaneous Notes* Telephone Encounter - Qian [...] the knee. PT currently being done at [email or web address] and they advised the patient reach out to our office for further advice as they do not feel she should be having this much discomfort especially in the pool. PT was asking her about possibly gait training with walker or cane and insurance auth/orders. Candelaria Kat LPN documented in [facility] encounterThe [facility]10-20-[facility]22 Miscellaneous Notes* Telephone Encounter - Qian Suh Ma - 12/31/2021 10:18 AM EDT Patient called back and patient advised that our office does not fill out Social security disability. Patient states she just found that the office will request records and she does not need to have physicians fill out paperwork. Patient will continuous pickling line pickler forms that she dropped off. Left at [facility] front [facility] java [facility]. * Telephone Encounter - Qian Suh [...] qualify her for disability. documented in [facility] encounterThe [facility]10-[facility]22 Miscellaneous Notes* Telephone Encounter - Kandis Blunt LPN - 12/22/2021 2:45 PM EDT Pt brought in form from social security administration to be completed by pcp.to pcp to review. Call pt when ready for continuous pickling line pickler. She notes they need all medical records too. [facility] in [facility] encounter[facility]09[facility] Miscellaneous Notes* Telephone Encounter - Qian [...] an injection. She will try PT at [email or web address]. Patient asking if anti inflammatory can be increased and refilled? Confirmed [facility] in [place]. * Telephone Encounter - Stephanie Lowe PA-C [...] try. Jing Joaquin RN documented in this encounterThe [facility]08-[facility] History of Present illness Narrative* Qian [...] Selwyn Hyatt MD Department of Orthopaedics Orthopaedics [address] [place] [address] Dept: [phone] Dept October 26, 2021 Consultation requested by [...] mild degenerative changes in the right knee. Mandolin Repairer: TAHIRA Transcribe Date/Time: Oct 09 2021 3:56P [...] Obesity, Class III, BMI 40-49.9 (morbid obesity) ([facility]) 07/27/2017 Tobacco use disorder Unspecified hearing loss left ear - wears hearing aid Unspecified hypothyroidism Past Surgical History: PAST SURGICAL HISTORY Procedure Laterality Date COLONOSCOPY SCREENING 07/17/2020 EGD 07/17/2020 LAPS SURG CHOLECYSTECTOMY W/CHOLANGIOGRAPHY 07/22/2020 [facility] LEFT HEART CATH,PERCUTANEOUS 01/23/2019 L & [...] mask of choice, HUMIDITY. LIFETIME SUPPLIES. DME: [facility] No current facility-administered medications for this visit. [...] or electronic medical record. Sam Saunders [address] [facility] [address] Sam Saunders MD [address] [facility] [address] Selwyn Hyatt MD documented in this encounterThe [facility]01[facility] History of Past illness Narrative* Problem [...] of this encounter (statuses as of 11/19/2021) [facility] Narrative* Problem [...] of this encounter (statuses as of 12/11/2021) [facility] Narrative* Problem [...] of this encounter (statuses as of 12/31/2021) [facility] Narrative* Problem [...] of this encounter (statuses as of 01/08/2022) [facility] Narrative* Problem [...] of this encounter (statuses as of 02/09/2022) [facility] Narrative* Problem [...] of this encounter (statuses as of 04/12/2022) [address]26-[address]22 History of Past illness Narrative* Problem [...] of this encounter (statuses as of 04/20/2022) [facility] Narrative* Problem [...] of this encounter (statuses as of 06/04/2022) [facility] Narrative* Problem [...] of this encounter (statuses as of 09/15/2022) [facility] Narrative* Problem Noted Date Diagnosed Date Resolved Date Dermatophytosis of nail 04/08/2021 0710/2021 Pain in joint, lower leg 2010 Tobacco use disorder 06/13/2008 016 Overview: Pt interested in quitting as of 08-20 but worried about turning to food Non morbid obesity due to excess calories 06/13/2008 04/08/2021 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 documented as of this encounter (statuses as of 09/20/2022) [facility] Narrative* Problem [...] of this encounter (statuses as of 10/11/2022) [facility] Narrative* Problem [...] of this encounter (statuses as of 10/12/2022) [facility] Narrative* Problem [...] of this encounter (statuses as of 11/04/2022) [facility] Narrative* Problem [...] of this encounter (statuses as of 11/18/2022) [facility] Narrative* Problem [...] of this encounter (statuses as of 12/28/2022) [facility] Narrative* Problem [...] of this encounter (statuses as of 01/16/2023) [address]26[address]22 History of Past illness Narrative* Problem [...] of this encounter (statuses as of 01/27/2023) [facility] N[facility]* Problem [...] of this encounter (statuses as of 02/15/2023) [facility] N[facility]* Problem [...] of this encounter (statuses as of 02/22/2023) [facility] N[facility]* Problem [...] of this encounter (statuses as of 02/22/2023) [facility] N[facility]* Problem [...] of this encounter (statuses as of 02/25/2023) [facility] Narrative* Problem [...] of this encounter (statuses as of 02/26/2023) [facility] Narrative* Problem [...] of this encounter (statuses as of 03/20/2023) [facility] N[facility]ative* Problem [...] as of this encounter (statuses as of 04/15/2023) [facility] Narrative* Problem [...] of this encounter (statuses as of 08/26/2021) [facility] Narrative* Problem [...] of this encounter (statuses as of 08/31/2021) [facility] Narrative* Problem [...] of this encounter (statuses as of 09/14/2021) [facility] note* Diagnosis Encounter for screening mammogram for breast cancer [facility] Diagnosis 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) Morbid obesity VETO on CPAP 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 apnea (adult) (pediatric) Bile-induced gastritis Other specified gastritis without mention of hemorrhage Gastroesophageal reflux disease, unspecified whether esophagitis present Chronic renal impairment, stage 3a (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 Effusion of right knee Effusion of lower leg joint [facility]* Diagnosis Encounter for screening mammogram for breast cancer [facility] Diagnosis 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 Effusion of right knee Effusion of lower leg joint [facility]* Diagnosis Mild intermittent asthma without complication Unspecified asthma Eczema, unspecified type [facility]* Diagnosis Mild intermittent asthma without complication Unspecified asthma Eczema, unspecified type documented in this encounter [facility] note* Diagnosis Wellness examination- Primary Weight [...] single bacterial disease [facility] Diagnosis 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 Effusion of right knee Effusion of lower leg joint documented in this encounter [facility] note* Diagnosis Renal insufficiency Unspecified disorder of kidney and ureter documented in this encounter [facility] note* Diagnosis Right knee pain, unspecified chronicity- Primary documented in this encounter [facility] note* Diagnosis Right knee pain, unspecified chronicity documented in this encounter [facility] note* Diagnosis Multiple leg contusions, right, initial encounter Acute pain of right knee documented in this encounter [facility] note* Diagnosis Multiple leg contusions, right, initial encounter- Primary Acute pain of right knee Primary osteoarthritis of right knee Primary localized osteoarthrosis, lower leg documented in this encounter [facility] note* Diagnosis Stage 3a chronic kidney disease (HCC)- Primary Elevated serum creatinine Other nonspecific findings on examination of blood Right renal atrophy Renal sclerosis, unspecified Obesity, Class III, BMI 40-49.9 (morbid obesity) (HCC) Morbid obesity BMI 45.0-49.9, adult (HCC) Body Mass Index 45.0-49.9, adult documented in this encounter [facility] for referral (narrative)* Diagnostic Procedure Only (Routine) - Pending Review Specialty Diagnoses / Procedures Referred By Matty craven Referred To Contact [facility] Diagnoses Encounter for screening mammogram for breast cancer Procedures [facility]ED[facility] SCREENING SCREENING MAMMOGRAPHY BI 2-VIEW BREAST INC CAD Sam Saunders MD [address] [place] [address] [facility] [address] [place] [address] Referral ID Status Reason Start Date Expiration Date Visits Requested Visits Authorized [id number] Pending Review Auto-Generat ed Referral 09/09/2021 10/09/2022 1 1 [facility] for referral (narrative)* - Pending Review Specialty Diagnoses / Procedures Referred By Suzyac t Referred To Contact Physical Therapy Diagnoses 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 Effusion of right knee Procedures CONSULT TO PHYSICAL THERAPY Stephanie Lowe PA-C [address] [place] [id number] Referral ID Status Reason Start Date Expiration Date V isits Requested Visits Authorized [id number] Pending Review 12/08/2021 03/08/2022 1 1 [facility] for referral (narrative)* Diagnostic Procedure Only (Routine) - Pending Review Specialty Diagnoses / Procedures Referred By Matty t Referred To Contact BR IMAGING Diagnoses Encounter for screening mammogram for breast cancer Procedures MEREDITH SCREENING SCREENING MAMMOGRAPHY BI 2-VIEW BREAST INC CAD Sam Saunders MD [address] [place] [address] [facility] [address] [place] [address] Referral ID Status Reason Start Date Expiration Date Visits Requested Visits Authorized [id number] Pending Review Auto-Generat ed Referral 09/15/2022 10/15/2023 1 1 [facility] for referral (narrative)* Diagnostic Procedure Only (Routine) - Closed Specialty Diagnoses / Procedures Referred By Matty t Referred To Contact US IMAGING Diagnoses Renal insufficiency Procedures US KIDNEY/BLADDER US RETROPERITONEAL REAL TIME W/IMAGE COMPLETE Verito Broderick APRN.ERICK [address] [place] [address] [place] [address] Referral ID Status Reason Start Date Expiration Date V isits Requested Visits Authorized [id number] Closed Auto-Generate d Referral 11/18/2022 12/18/2023 1 1 [facility] for referral (narrative)* Diagnostic Procedure Only (Routine) - Pending Review Specialty Diagnoses / Procedures Referred By Contac t Referred To Contact XR IMAGING Diagnoses Right knee pain, unspecified chronicity Procedures XR KNEE GENERAL 4V AP BOTH/PA BOTH/LAT/MERC RIGHT RADIOLOGIC EXAM KNEE COMPLETE 4/MORE VIEWS Selwyn Hyatt MD [address] [place] [address] [place] [address] Referral ID Status Reason Start Date Expiration Date Visits Requested Visits Authorized [id number] Pending Review Auto-Generat ed Referral 02/14/2023 03/15/2024 1 1 [facility] for referral (narrative)* Diagnostic Procedure Only (Routine) - Closed Specialty Diagnoses / Procedures Referred By Contac t Referred To Contact XR IMAGING Diagnoses Multiple leg contusions, right, initial encounter Acute pain of right knee Procedures XR TIBIA FIBULA 2V AP/LAT RIGHT RADIOLOGIC EXAMINATION TIBIA & FIBULA 2 VIEWS Selwyn Hyatt MD [address] [place] [address] [place] [address] Referral ID Status Reason Start Date Expiration Date V isits Requested Visits Authorized [id number] Closed Auto-Generate d Referral 02/21/2023 03/22/2024 1 1 [facility] for visit Narrative* Diagnostic Procedure Only (Routine) - Closed Specialty Diagnoses / Procedures Referred By Contac t Referred To Contact US IMAGING Diagnoses Renal insufficiency Procedures US KIDNEY/BLADDER US RETROPERITONEAL REAL TIME W/IMAGE COMPLETE Verito Broderick APRN.CNP [address] [place] [address] [place] [address] Referral ID Status Reason Start Date Expiration Date V isits Requested Visits Authorized [id number] Closed Auto-Generate d Referral 11/18/2022 12/18/2023 1 1 [facility] for visit Narrative* Diagnostic Procedure Only (Routine) - Closed Specialty Diagnoses / Procedures Referred By Contac t Referred To Contact XR IMAGING Diagnoses Right knee pain, unspecified chronicity Procedures XR KNEE GENERAL 4V AP BOTH/PA BOTH/LAT/MERC RIGHT RADIOLOGIC EXAM KNEE COMPLETE 4/MORE VIEWS Selwyn Hyatt MD [address] [place] [address] [place] [address] Referral ID Status Reason Start Date Expiration Date V isits Requested Visits Authorized [id number] Closed Auto-Generate d Referral 02/14/2023 03/15/2024 1 1 [facility] for visit Narrative* Diagnostic Procedure Only (Routine) - Closed Specialty Diagnoses / Procedures Referred By Contac t Referred To Contact XR IMAGING Diagnoses Multiple leg contusions, right, initial encounter Acute pain of right knee Procedures XR TIBIA FIBULA 2V AP/LAT RIGHT RADIOLOGIC EXAMINATION TIBIA & FIBULA 2 VIEWS Selwyn Hyatt MD [address] [place] [address] [place] [address] Referral ID Status Reason Start Date Expiration Date V isits Requested Visits Authorized [id number] Closed Auto-Generate d Referral 02/21/2023 03/22/2024 1 1 [facility] Summary Purpose Family History No Family History Records FoundNo Family History Records Found Advance Directives No Advanced Directives Records FoundDocuments on File Type Date Recorded 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 Advance Directive(s) 04/11/2017 1:26 PM Documents on File Type Date Recorded 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 Advance Directive(s) 04/11/2017 1:26 PM Reason for Referral Specialty Diagnoses / Procedures Referred By Contac t Referred To Contact Diagnoses Mild intermittent asthma without complication Sam Saunders MD [address] [place] [address] Referral ID Status Reason Start Date Expiration Date Visits Re quested Visits Authorized [id number] Closed 1 1 Specialty Diagnoses / Procedures Referred By Contac t Referred To Contact Diagnoses Wellness examination Procedures CONSULT TO WOMEN'S HEALTH OFFICE/OUTPATIENT NEW HIGH MDM 60-74 MINUTES 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, 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 [address] [place] [address] Referral ID Status Reason Start Date Expiration Date Visits Requested Visits Authorized [id number] Authorized PCP Requested Referral Auto-Generate d Referral 11/17/2022 11/17/2023 1 1 Additional Source Comments INFORMATION SOURCE (unrecogn ized section and content) DATE CREATED AUTHOR AUTHOR'S ORGANIZ ATION 04/16/2023 [facility] Source Comments (unrecognize d section and content) In the event this informatio n is protected by the Federal Confidentiality of Alcohol and Drug Abuse Patient Records regulations: The Federal rules restrict any use of the information to criminally investigate or prosecute any alcohol or drug abuse patient.[facility] the event this information is protected by the Federal Confidentiality of Alcohol and Drug Abuse Patient Records regulations: The Federal rules restrict any use of the information to criminally investigate or prosecute any alcohol or drug abuse patient.[facility] the event this information is protected by the Federal Confidentiality of Alcohol and Drug Abuse Patient Records regulations: The Federal rules restrict any use of the information to criminally investigate or prosecute any alcohol or drug abuse patient.[facility] the event this information is protected by the Federal Confidentiality of Alcohol and Drug Abuse Patient Records regulations: The Federal rules restrict any use of the information to criminally investigate or prosecute any alcohol or drug abuse patient.[facility] the event this information is protected by the Federal Confidentiality of Alcohol and Drug Abuse Patient Records regulations: The Federal rules restrict any use of the information to criminally investigate or prosecute any alcohol or drug abuse patient.[facility] the event this information is protected by the Federal Confidentiality of Alcohol and Drug Abuse Patient Records regulations: The Federal rules restrict any use of the information to criminally investigate or prosecute any alcohol or drug abuse patient.[facility] the event this information is protected by the Federal Confidentiality of Alcohol and Drug Abuse Patient Records regulations: The Federal rules restrict any use of the information to criminally investigate or prosecute any alcohol or drug abuse patient.[facility] the event this information is protected by the Federal Confidentiality of Alcohol and Drug Abuse Patient Records regulations: The Federal rules restrict any use of the information to criminally investigate or prosecute any alcohol or drug abuse patient.[facility] the event this information is protected by the Federal Confidentiality of Alcohol and Drug Abuse Patient Records regulations: The Federal rules restrict any use of the information to criminally investigate or prosecute any alcohol or drug abuse patient.[facility] the event this information is protected by the Federal Confidentiality of Alcohol and Drug Abuse Patient Records regulations: The Federal rules restrict any use of the information to criminally investigate or prosecute any alcohol or drug abuse patient.[facility] the event this information is protected by the Federal Confidentiality of Alcohol and Drug Abuse Patient Records regulations: The Federal rules restrict any use of the information to criminally investigate or prosecute any alcohol or drug abuse patient.[facility] the event this information is protected by the Federal Confidentiality of Alcohol and Drug Abuse Patient Records regulations: The Federal rules restrict any use of the information to criminally investigate or prosecute any alcohol or drug abuse patient.[facility] the event this information is protected by the Federal Confidentiality of Alcohol and Drug Abuse Patient Records regulations: The Federal rules restrict any use of the information to criminally investigate or prosecute any alcohol or drug abuse patient.[facility] the event this information is protected by the Federal Confidentiality of Alcohol and Drug Abuse Patient Records regulations: The Federal rules restrict any use of the information to criminally investigate or prosecute any alcohol or drug abuse patient.[facility] the event this information is protected by the Federal Confidentiality of Alcohol and Drug Abuse Patient Records regulations: The Federal rules restrict any use of the information to criminally investigate or prosecute any alcohol or drug abuse patient.[facility] the event this information is protected by the Federal Confidentiality of Alcohol and Drug Abuse Patient Records regulations: The Federal rules restrict any use of the information to criminally investigate or prosecute any alcohol or drug abuse patient.[facility] the event this information is protected by the Federal Confidentiality of Alcohol and Drug Abuse Patient Records regulations: The Federal rules restrict any use of the information to criminally investigate or prosecute any alcohol or drug abuse patient.[facility] the event this information is protected by the Federal Confidentiality of Alcohol and Drug Abuse Patient Records regulations: The Federal rules restrict any use of the information to criminally investigate or prosecute any alcohol or drug abuse patient.[facility] the event this information is protected by the Federal Confidentiality of Alcohol and Drug Abuse Patient Records regulations: The Federal rules restrict any use of the information to criminally investigate or prosecute any alcohol or drug abuse patient.[facility] the event this information is protected by the Federal Confidentiality of Alcohol and Drug Abuse Patient Records regulations: The Federal rules restrict any use of the information to criminally investigate or prosecute any alcohol or drug abuse patient.[facility] the event this information is protected by the Federal Confidentiality of Alcohol and Drug Abuse Patient Records regulations: The Federal rules restrict any use of the information to criminally investigate or prosecute any alcohol or drug abuse patient.[facility] the event this information is protected by the Federal Confidentiality of Alcohol and Drug Abuse Patient Records regulations: The Federal rules restrict any use of the information to criminally investigate or prosecute any alcohol or drug abuse patient.[facility] the event this information is protected by the Federal Confidentiality of Alcohol and Drug Abuse Patient Records regulations: The Federal rules restrict any use of the information to criminally investigate or prosecute any alcohol or drug abuse patient.[facility] the event this information is protected by the Federal Confidentiality of Alcohol and Drug Abuse Patient Records regulations: The Federal rules restrict any use of the information to criminally investigate or prosecute any alcohol or drug abuse patient.[facility] the event this information is protected by the Federal Confidentiality of Alcohol and Drug Abuse Patient Records regulations: The Federal rules restrict any use of the information to criminally investigate or prosecute any alcohol or drug abuse patient.[facility] the event this information is protected by the Federal Confidentiality of Alcohol and Drug Abuse Patient Records regulations: The Federal rules restrict any use of the information to criminally investigate or prosecute any alcohol or drug abuse patient.[facility] the event this information is protected by the Federal Confidentiality of Alcohol and Drug Abuse Patient Records regulations: The Federal rules restrict any use of the information to criminally investigate or prosecute any alcohol or drug abuse patient.[facility] Care Teams (unrecognized sec tion and content) Hotel Or Motel Manager Relationship Specialty Start Date End Date Sam Saunders MD [address] [place] [address] PCP - General Internal Medicine 07/09/19 Hotel Or Motel Manager Relationship Specialty Start Date End Date Sam Saunders MD [address] [place] [address] PCP - General Internal Medicine 07/09/19 Hotel Or Motel Manager Relationship Specialty Start Date End Date Sam Saunders MD [address] [place] [address] PCP - General Internal Medicine 07/09/19 Hotel Or Motel Manager Relationship Specialty Start Date End Date Sam Saunders MD [address] [place] [address] PCP - General Internal Medicine 07/09/19 Hotel Or Motel Manager Relationship Specialty Start Date End Date Sam Saunders MD [address] [place] [address] PCP - General Internal Medicine 07/09/19 Hotel Or Motel Manager Relationship Specialty Start Date End Date Sam Saunders MD [address] [place] [address] PCP - General Internal Medicine 07/09/19 Hotel Or Motel Manager Relationship Specialty Start Date End Date Sam Saunders MD [address] [facility] [place] [address] PCP - General Internal Medicine 07/09/19 Hotel Or Motel Manager Relationship Specialty Start Date End Date Sam Saunders MD [address] [facility] [place] [address] PCP - General Internal Medicine 07/09/19 Hotel Or Motel Manager Relationship Specialty Start Date End Date Sam Saunders MD [address] [facility] [place] [address] PCP - General Internal Medicine 07/09/19 Hotel Or Motel Manager Relationship Specialty Start Date End Date Sam Saunders MD [address] [facility] [place] [address] PCP - General Internal Medicine 07/09/19 Hotel Or Motel Manager Relationship Specialty Start Date End Date Sam Saunders MD [address] [facility] [place] [address] PCP - General Internal Medicine 07/09/19 Hotel Or Motel Manager Relationship Specialty Start Date End Date Sam Saunders MD [address] [facility] [place] [address] PCP - General Internal Medicine 07/09/19 Hotel Or Motel Manager Relationship Specialty Start Date End Date Sam Saunders MD [address] [facility] [place] [address] PCP - General Internal Medicine 07/09/19 Hotel Or Motel Manager Relationship Specialty Start Date End Date Sam Saunders MD [address] [facility] [place] [address] PCP - General Internal Medicine 07/09/19 Hotel Or Motel Manager Relationship Specialty Start Date End Date Sam Saundres MD [address] [facility] [place] [address] PCP - General Internal Medicine 07/09/19 Hotel Or Motel Manager Relationship Specialty Start Date End Date Sam Saunders MD [address] [facility] [place] [address] PCP - General Internal Medicine 07/09/19 Hotel Or Motel Manager Relationship Specialty Start Date End Date Sam Saunders MD [address] [facility] [place] [address] PCP - General Internal Medicine 07/09/19 Hotel Or Motel Manager Relationship Specialty Start Date End Date Sam Saundesr MD [address] [facility] [place] [address] PCP - General Internal Medicine 07/09/19 Hotel Or Motel Manager Relationship Specialty Start Date End Date Sam Saunders MD [address] [place] [address] PCP - General Internal Medicine 07/09/19 Hotel Or Motel Manager Relationship Specialty Start Date End Date Sam Saunders MD [address] [facility] [place] [address] PCP - General Internal Medicine 07/09/19 Hotel Or Motel Manager Relationship Specialty Start Date End Date Sam Saunders MD [address] [facility] [place] [address] PCP - General Internal Medicine 07/09/19 Hotel Or Motel Manager Relationship Specialty Start Date End Date Sam Saunders MD [address] [place] [address] PCP - General Internal Medicine 07/09/19 Reason for Visit (unrecogniz ed section and content) Specialty Diagnoses / Procedures Referred By Contac t Referred To Contact Orthopedics Diagnoses Effusion of right knee Procedures CONSULT TO ORTHOPAEDICS OFFICE/OUTPATIENT NEW HIGH MDM 60-74 MINUTES Sam Saunders MD [address] [place] [address] Referral ID Status Reason Start Date Expiration Date V isits Requested Visits Authorized [id number] Closed PCP Requested Referral 10/08/2021 10/08/2022 1 [...] (HCC) Procedures CONSULT TO NEPHROLOGY OFFICE/OUTPATIENT NEW HIGH MDM 60-74 MINUTES Meggan, BALTAZAR Sellers [address] [place] [address] Referral ID Status Reason Start Date Expiration Date V isits Requested Visits Authorized [id number] Closed PCP Requested Referral 12/15/2022 12/15/2023 1 1 Reason Comments Patient Question Reason Comments Established Patient Pain Reason Comments Follow Up [facility] 01/27/2023 CKD FOR RECORDS PERTAINING TO PATIENTS WHO ARE [...] BE BASED ON THE PRIMARY CLINICAL RECORDS. [email or web address] provides no warranty or guarantee of the accuracy or completeness of information in this document.
[2023-04-28 09:15] LABS: Absolute Lymphocyte Count 2.11 X10^3/uL (0.83-4.51); Absolute Neutrophil Count 6.3 X10^3/uL (2.0-7.7); Basophil# 0.05 X10^3/uL; Basophil% 0.5 % (0-1); Eosinophils% 1.1 % (0-5); Glucose, Dipstick Normal (Normal); Hemoglobin 13.7 g/dL (12.0-15.0); Ketone-Dipstick Negative (Negative); Leukocyte Esterase-Dipstick 25 /ul (Negative); Lymphocyte # 2.11 X10^3/ul (0.83-4.51); Lymphocyte % 22.5 % (19-41); Mean Corp Hgb Conc 32.6 g/dL (32-36); Mean Corpuscular Hgb 28.1 pg (27.0-32.0); Mean Corpuscular Volume 86.2 fL (81-99); Mean Platelet Vol. 11.6 fl (6.2-12.0); Monocyte# 0.82 X10^3/uL; Monocyte% 8.8 % (0-10); NRBC Flagged by Analyzer 0 % (0-5); Neutrophil # 6.26 X10^3/uL (2.7-7.7); Neutrophil % 66.9 % (47-70); Nitrite-Dipstick Negative (Negative); Occult Blood-Urine Negative /ul (Negative); Platelet Count 212 K/mm3 (150-450); Protein-Dipstick 15 mg/dl (Negative); RBC Distribution Width CV 12.9 % (11.6-14.6); RBC Distribution Width SD 40.2 fl (35.1-43.9); Red Blood Count 4.87 M/mm3 (4.2-5.4); Urine Bilirubin Dipstick Negative (Negative); Urine Urobilinogen Normal (Normal); White Blood Count 9.4 K/mm3 (4.4-11.0)
[2023-04-28 09:16] LABS: Color, Urine YELLOW (Yellow); Urine Clarity Clear (Clear)
[2023-04-28 09:24] LABS: White Blood Cells 5-10 SEEN /hpf (0-5)
[2023-04-28 09:35] LABS: Protein, Urine (Random) 23.6 mg/dL (<11.9); Protein:Creat Ratio 145 mg/g CRE (0-200)
[2023-04-28 09:49] LABS: Albumin, Serum 3.6 g/dL (3.2-5.0); BUN 23 mg/dL (7-18); BUN/Creat Ratio 18.1 RATIO (10-20); Calcium,Total 10.2 mg/dL (8.5-10.1); Chloride 104 mmol/L (98-107); Creatinine, Serum 1.27 mg/dL (0.55-1.02); EST Glomerular Filtration Rate 46 mL/min (>60); Est Glom Filt Rate - Afr Amer 55 mL/min (>60); Glucose 116 mg/dL (74-106); Phosphorus 3.4 mg/dL (2.5-4.9); Potassium 3.5 mmol/L (3.5-5.1); Sodium Level 139 mmol/L (136-145); T4 Free Direct 2.11 ng/dL (0.76-1.46); Thyroid Stim Hormone (TSH) 0.04 uIU/mL (0.358-3.74)
[2023-04-29 04:07] LABS: Thyroid Peroxidase AB 46 IU/mL (0-34)
== END | disposition home or self-care (01) ==
PROVIDERS: PCP Internal Medicine; Referring Provider Internal Medicine Endocrinology, Diabetes & Metabolism; Visit Provider Internal Medicine Endocrinology, Diabetes & Metabolism
DX: N18.31 Chronic kidney disease, stage 3a (principal); E03.9 Hypothyroidism, unspecified
CPT/HCPCS: 80069; 81001; 82570; 84156; 84439; 84443; 85025; 86376

== ENCOUNTER → 2023-05-18 | Outpatient (CLI) | payer MEDICAID, SELFPAY | END | disposition home or self-care (01) | LOC: SL 13:37 | PROVIDERS: PCP Internal Medicine; Referring Provider Nurse Practitioner Acute Care; Visit Provider Nurse Practitioner Acute Care | DX: Z00.00 Encounter for general adult medical examination without abnormal findings (principal) ==

== ENCOUNTER → 2023-06-27 | Outpatient (CLI) | payer MEDICAID, SELFPAY ==
[2023-06-27 17:25] LABS: Color, Urine Yellow (Yellow); Glucose, Dipstick Normal (Normal); Ketone-Dipstick Negative (Negative); Leukocyte Esterase-Dipstick Negative /ul (Negative); Nitrite-Dipstick Negative (Negative); Occult Blood-Urine Negative /ul (Negative); Protein-Dipstick Negative (Negative); Specific Gravity, Urine 1.015 (1.002-1.030); Urine Bilirubin Dipstick Negative (Negative); Urine Clarity Clear (Clear); Urine Urobilinogen Normal (Normal)
[2023-06-27 17:42] LABS: Albumin, Serum 3.6 g/dL (3.2-5.0); BUN 15 mg/dL (7-18); BUN/Creat Ratio 11.8 RATIO (10-20); Calcium,Total 9.4 mg/dL (8.5-10.1); Chloride 104 mmol/L (98-107); Creatinine, Serum 1.27 mg/dL (0.55-1.02); EST Glomerular Filtration Rate 46 mL/min (>60); Est Glom Filt Rate - Afr Amer 55 mL/min (>60); Glucose 94 mg/dL (74-106); Phosphorus 2.6 mg/dL (2.5-4.9); Potassium 3.9 mmol/L (3.5-5.1); Sodium Level 137 mmol/L (136-145); T4 Free Direct 1.15 ng/dL (0.76-1.46); Thyroid Stim Hormone (TSH) 6.44 uIU/mL (0.358-3.74)
[2023-06-27 17:50] LABS: Microalbumin,Random Urine < 5.0 mg/L (NO RANGE EST.); Protein, Urine (Random) 7.1 mg/dL (<11.9); Protein:Creat Ratio 300 mg/g CRE (0-200)
== END | disposition home or self-care (01) ==
LOC: LAB 15:01
PROVIDERS: PCP Internal Medicine; Referring Provider Internal Medicine Endocrinology, Diabetes & Metabolism; Visit Provider Internal Medicine Endocrinology, Diabetes & Metabolism
DX: N18.31 Chronic kidney disease, stage 3a (principal)
CPT/HCPCS: 36415; 80069; 81002; 82043; 82570; 84156; 84439; 84443; 87086

== ENCOUNTER → 2023-07-05 | Outpatient (CLI) | payer MEDICAID, SELFPAY ==
[2023-07-05 13:55] VITALS: PULSE 100; PULSE 103; PULSE 104; PULSE 80; PULSE 84; PULSE 93; PULSE 95; O2SAT 95; O2SAT 96; O2SAT 97; O2SAT 98
--- NOTE | 2023-07-06 10:38 | PCM.PSN.6M ---
PSN 6 Minute Walk Test 6 Minute Walk Test 6 Minute Walk Test: 6 Minute Walk Test PSN:6-Minute Walk Test Start: 07/05/23 14:12 Freq: Status: Active Protocol: RESP.6MINW Document 07/05/23 13:55 EW (Rec: 07/05/23 14:16 EW Desktop) 6 Minute Walk Test Date Performed 07/05/23 Time Performed 13:45 Height 5 ft 5 in Weight: 236 lb Weight in Pounds 236.0 lbs Assistive device used: None Pre-test Oxygen Delivery Method Room Air Pulse Ox 98 Pulse Rate (60-100) 84 Dyspnea Young Scale (0-10) 2 Exertion Young Scale (6-20) 11 1st minute Oxygen Delivery Method Room Air Pulse Ox 97 Pulse Rate (60-100) 80 2nd minute Oxygen Delivery Method Room Air Pulse Ox 96 Pulse Rate (60-100) 95 3rd minute Oxygen Delivery Method Room Air Pulse Ox 96 Pulse Rate (60-100) 93 4th minute Oxygen Delivery Method Room Air Pulse Ox 96 Pulse Rate (60-100) 100 5th minute Oxygen Delivery Method Room Air Pulse Ox 96 Pulse Rate (60-100) 103 H 6th minute Oxygen Delivery Method Room Air Pulse Ox 95 Pulse Rate (60-100) 104 H Post-test Oxygen Delivery Method Room Air Pulse Ox 97 Pulse Rate (60-100) 84 Dyspnea Young Scale (0-10) 4 Exertion Young Scale (6-20) 14 Full Laps Walked 14 Partial Lap, Number of Tiles Walked 0 Total Distance Walked (ft) 826 Interpretation Interpretation: The patient ambulated 826 feet over the course of 6 minutes beginning on room air without assistive devices. Pretesting oxygen saturation was noted to be 98% on room air. With ambulation, the george oxygen saturation was 95%. There was no significant exertional oxygen desaturation. Recommendations Recommendations: There is no indication for the use of supplemental oxygen at this time.
== END | disposition home or self-care (01) ==
LOC: PSN 13:57
PROVIDERS: Internal Medicine Gastroenterology; PCP Internal Medicine; Referring Provider Nurse Practitioner Acute Care; Visit Provider Nurse Practitioner Acute Care
DX: R06.00 Dyspnea, unspecified (principal); R19.7 Diarrhea, unspecified; K58.9 Irritable bowel syndrome, unspecified
CPT/HCPCS: 82653; 82705; 83630; 83993; 87177; 87209; 87329; 87493; 87506; 94618

== ENCOUNTER → 2023-07-08 | Outpatient (CLI) | payer MEDICAID, SELFPAY ==
[2023-07-08 16:24] LABS: Absolute Lymphocyte Count 2.22 X10^3/uL (0.83-4.51); Absolute Neutrophil Count 4.6 X10^3/uL (2.0-7.7); Basophil# 0.05 X10^3/uL; Basophil% 0.7 % (0-1); Eosinophil# 0.07 X10^3/uL; Eosinophils% 0.9 % (0-5); Hematocrit 43.3 % (37-47); Hemoglobin 14.1 g/dL (12.0-15.0); Lymphocyte # 2.22 X10^3/ul (0.83-4.51); Lymphocyte % 29.8 % (19-41); Mean Corp Hgb Conc 32.6 g/dL (32-36); Mean Corpuscular Volume 85.9 fL (81-99); Mean Platelet Vol. 11.4 fl (6.2-12.0); Monocyte# 0.52 X10^3/uL; NRBC Flagged by Analyzer 0 % (0-5); Neutrophil # 4.57 X10^3/uL (2.7-7.7); Neutrophil % 61.3 % (47-70); Platelet Count 201 K/mm3 (150-450); RBC Distribution Width CV 13.7 % (11.6-14.6); RBC Distribution Width SD 42.9 fl (35.1-43.9); Red Blood Count 5.04 M/mm3 (4.2-5.4); White Blood Count 7.5 K/mm3 (4.4-11.0)
[2023-07-08 16:43] LABS: BNP,B-Type NATRIURETIC PEPTIDE 26.8 pg/mL (0-100)
[2023-07-08 16:49] LABS: ALB/GLOB Ratio 0.9 RATIO (0.9-2.4); AST(SGOT) 14 U/L (15-37); Alanine Aminotransfer ALT/SGPT 20 U/L (13-56); Albumin, Serum 3.7 g/dL (3.2-5.0); Alkaline Phosphatase 142 U/L (45-117); Anion Gap 6 (5-15); BUN 18 mg/dL (7-18); BUN/Creat Ratio 13.1 RATIO (10-20); Calcium,Total 9.3 mg/dL (8.5-10.1); Chloride 103 mmol/L (98-107); Creatinine, Serum 1.37 mg/dL (0.55-1.02); EST Glomerular Filtration Rate 42 mL/min (>60); Est Glom Filt Rate - Afr Amer 51 mL/min (>60); Globulin 4.1 g/dL (2.2-4.2); Glucose 94 mg/dL (74-106); Magnesium 1.8 mg/dL (1.6-2.6); Potassium 3.5 mmol/L (3.5-5.1); Protein, Total 7.8 g/dL (6.4-8.2); Sodium Level 137 mmol/L (136-145)
== END | disposition home or self-care (01) ==
LOC: LAB 15:26
PROVIDERS: PCP Internal Medicine; Referring Provider Nurse Practitioner Family; Visit Provider Nurse Practitioner Family
DX: R06.02 Shortness of breath (principal); R53.83 Other fatigue; R74.8 Abnormal levels of other serum enzymes; R14.0 Abdominal distension (gaseous); N18.9 Chronic kidney disease, unspecified; R60.9 Edema, unspecified; R00.2 Palpitations
CPT/HCPCS: 36415; 80053; 83735; 83880; 85025

== ENCOUNTER → 2023-08-25 | Outpatient (CLI) | payer MEDICAID, SELFPAY ==
[2023-08-25 17:13] LABS: Absolute Lymphocyte Count 2.03 X10^3/uL (0.83-4.51); Absolute Neutrophil Count 4.3 X10^3/uL (2.0-7.7); Basophil# 0.05 X10^3/uL; Basophil% 0.7 % (0-1); Eosinophil# 0.15 X10^3/uL; Eosinophils% 2.1 % (0-5); Hematocrit 41.8 % (37-47); Hemoglobin 13.6 g/dL (12.0-15.0); Lymphocyte # 2.03 X10^3/ul (0.83-4.51); Lymphocyte % 28.2 % (19-41); Mean Corp Hgb Conc 32.5 g/dL (32-36); Mean Corpuscular Volume 86.2 fL (81-99); Mean Platelet Vol. 11.4 fl (6.2-12.0); Monocyte# 0.61 X10^3/uL; Monocyte% 8.5 % (0-10); NRBC Flagged by Analyzer 0 % (0-5); Neutrophil # 4.33 X10^3/uL (2.7-7.7); Neutrophil % 60.2 % (47-70); Platelet Count 216 K/mm3 (150-450); RBC Distribution Width CV 13.9 % (11.6-14.6); RBC Distribution Width SD 43.8 fl (35.1-43.9); Red Blood Count 4.85 M/mm3 (4.2-5.4); White Blood Count 7.2 K/mm3 (4.4-11.0)
[2023-08-25 17:39] LABS: ALB/GLOB Ratio 0.9 RATIO (0.9-2.4); AST(SGOT) 19 U/L (15-37); Alanine Aminotransfer ALT/SGPT 27 U/L (13-56); Albumin, Serum 3.7 g/dL (3.2-5.0); Alkaline Phosphatase 153 U/L (45-117); Anion Gap 4 (5-15); BNP,B-Type NATRIURETIC PEPTIDE 15.7 pg/mL (0-100); BUN 16 mg/dL (7-18); BUN/Creat Ratio 11.2 RATIO (10-20); Chloride 104 mmol/L (98-107); Creatinine, Serum 1.43 mg/dL (0.55-1.02); EST Glomerular Filtration Rate 40 mL/min (>60); Est Glom Filt Rate - Afr Amer 48 mL/min (>60); Glucose 95 mg/dL (74-106); Potassium 3.6 mmol/L (3.5-5.1); Protein, Total 7.7 g/dL (6.4-8.2); Sodium Level 138 mmol/L (136-145)
== END | disposition home or self-care (01) ==
LOC: LAB 16:37
PROVIDERS: PCP Internal Medicine; Referring Provider Nurse Practitioner Family; Visit Provider Nurse Practitioner Family
DX: Z01.818 Encounter for other preprocedural examination (principal); R06.00 Dyspnea, unspecified; R07.9 Chest pain, unspecified; Z98.890 Other specified postprocedural states
CPT/HCPCS: 36415; 80053; 83880; 85025

== ENCOUNTER → 2023-10-07 | Outpatient (CLI) | payer MEDICAID, SELFPAY ==
--- NOTE | 2023-10-07 11:25 | US_ITS ---
STUDY: ABDOMINAL ULTRASOUND - RIGHT UPPER QUADRANT REASON FOR VISIT: Female, 58 years old OBESITY TECHNIQUE: Ultrasound evaluation of the right upper quadrant was performed with real-time and static green-scale imaging. TECHNICAL QUALITY: Limited. Examination limited due to obesity. COMPARISON: Comparison is made with prior study June 12, 2020. FINDINGS: Liver: The liver measures 15.9 cm. There is increased echogenicity consistent with fatty infiltration. The bile ducts are within normal limits. There is hepatic color flow. The direction of portal flow is hepatopetal. There is no demonstrated mass lesion. Gallbladder: The patient is status post cholecystectomy. Common Bile Duct (C.B.D.): The common bile duct measures 2.8 mm. Pancreas: Normal size of the head of the pancreas. Body and tail obscured by overlying bowel gas. There is normal echogenicity of the pancreas. There is no demonstrated pancreatic mass or cyst. Right Kidney: Normal size of the right kidney. The right kidney measures 8 cm x 3.9 cm x 3.9 cm. Normal renal cortex. The right cortex measures 0.9 cm. There is no demonstrated renal mass or cyst. There is no right hydronephrosis. US/Abdomen Limited IMPRESSION: Heterogeneous appearance of the liver suggestive of cirrhosis. Status post cholecystectomy. Electronically Signed: Antoine Woods MD at 15:01 EDT ,
== END | disposition home or self-care (01) ==
LOC: US 11:22
PROVIDERS: PCP Internal Medicine
DX: E66.01 Morbid (severe) obesity due to excess calories (principal); Z68.42 Body mass index [BMI] 45.0-49.9, adult
CPT/HCPCS: 76705

== ENCOUNTER → 2023-10-21 | Outpatient (CLI) | payer MEDICAID, SELFPAY ==
--- NOTE | 2023-10-21 17:58 | CT_ITS ---
STUDY: CT ABDOMEN AND PELVIS WITH CONTRAST - URINARY TRACT REASON FOR EXAM: Female, 58 years old. Abdominal pain and diarrhea RADIATION DOSAGE (If Supplied By Facility): CTDIvol = ( 18.71 ) mGy, DLP = ( 1233.42 ) mGycm TECHNIQUE: IV 100mL Isovue-370 was administered. Transaxial images were obtained from the dome of the diaphragm to the symphysis pubis subsequent to intravenous contrast administration. Multiplanar coronal and sagittal images were reformatted. The protocol utilizes one or more of the following dose reduction techniques: automated exposure control, adjustment of mA and/or kV according to patient size,and/or use of iterative reconstruction technique. COMPARISON: April 07, 2023 FINDINGS: The visualized lung bases are unremarkable. The visualized portions of the heart are within normal limits. Normal liver. There is non-visualization of the gallbladder, which may be secondary to either contraction or a prior cholecystectomy. Normal spleen. Normal pancreas. Normal bilateral adrenal glands. Normal visualized stomach. Normal small intestine. There are multiple colonic diverticula consistent with diverticulosis. The appendix is visualized and appears normal. Normal abdominal aorta. No retroperitoneal adenopathy. Normal right kidney. Normal left kidney. Normal urinary bladder. Normal abdominal wall. There are diffuse degenerative changes of the visualized thoracic and lumbar spine. CT/Abdomen/Pelvis WITH Contrast IMPRESSION: No acute intra-abdominal process. Colonic diverticulosis. Degenerative changes of the visualized thoracic and lumbar spine. Electronically Signed: Radha Benjamin MD at 9:14 EDT ,
[2023-10-21 18:25] LABS: CREATININE FINGERSTICK 1.1 mg/dL (0.55-1.02)
== END | disposition home or self-care (01) ==
PROVIDERS: PCP Internal Medicine; Referring Provider Internal Medicine Gastroenterology; Visit Provider Internal Medicine Gastroenterology
DX: R10.9 Unspecified abdominal pain (principal); R19.7 Diarrhea, unspecified
CPT/HCPCS: 74177; Q9967

== ENCOUNTER → 2024-01-04 | Outpatient (CLI) | payer MEDICAID, SELFPAY ==
[2024-01-04] VITALS (13 sets, daily range): BP systolic 92–178; BP diastolic 32–160; PULSE 54–76; RESP 11–22; TEMP 36.6; O2SAT 94–100; BMI 38.9
--- NOTE | 2024-01-04 | LIV_PTH ---
PATHOLOGY RESULTS PATIENT: JOELLEN GANT LOC: [place] U#:[id number] AGE/SX: 58/F ROOM: RE01/04/[address]: Dr. Kemar Byrnes DO : 1965 BED: DIS: 01/04/2024 SPEC #: [id number] RECD: 01/04/24 13:11 STATUS: NILESH REQ #: [id number] BLADIMIR: 01/04/24 00:[address]: Kemar Byrnes DEPT: SURGICAL PATHOLOGY RECD BY: Derik Huynh ENTERED: 01/04/24 13:11 SP TYPE: LIVER RES OTHR DR: MD Lisa Vega, RN TRANSITION-C Tissues: Liver, NOS Procedures: PAS with Diastase (control) Trichrome (control) Special Stain Group I PAS Stain (control) Surgery Specimen Level V Retic (control) Iron Stain (control) HEADER OPERATION: CT guided liver biopsy PRE-OP DIAGNOSIS: Cirrhosis TISSUE SUBMITTED: 18 gauge x 3 cores MICROSCOPIC DIAGNOSIS Liver, CT guided core biopsy: Liver parenchymal tissue with focal minimal macrovesicular steatosis and minimal portal chronic inflammation. See microscopic description and comment. 01/05/2024 COMMENT Correlation with clinical, radiologic, laboratory findings and appropriate follow up are necessary. MICROSCOPIC DESCRIPTION Slides are reviewed. The specimen shows liver parenchymal tissue with preserved lobular architecture. Hepatocytes show focal minimal macrovesicular steatosis. Significant lobular inflammation is not seen. Portal area shows focal minimal portal chronic inflammation. Interface inflammation is not seen. Iron stains show absent iron. Reticulin stain highlights the normal lobular architecture. Trichrome stain does not show increased portal or periportal fibrosis. PAS stain with and without diastase do not show any abnormal accumulation of protein. All stains are performed with appropriate matched controls. GROSS DESCRIPTION Received is one container labeled with the patient's name and not further designated. The specimen consists of three elongated pieces of gonzalez soft tissue that in aggregate measure 1.5 x 0.3 x 0.1 cm. The specimen is totally submitted in one cassette. 01/04/2024 TC:5 CPT:92147,39021t5
[2024-01-04 09:45] LABS: Platelet Count 235 K/mm3 (150-450)
[2024-01-04 09:58] LABS: Partial Thromboplast Time 26.4 Seconds (24.1-36.2); Prothrombin Time (Protime)PT. 12.9 SECONDS (11.7-14.9)
--- OUTSIDE RECORDS SUMMARY | 2024-01-04 10:06 | XMS RPT_ITS | CCD ---
Author Organization [facility] Care Team Providers Care Civilian Technician Name Role Phone SAM NULL Unavailable Unavailable Chaka CHILDERS, Sam Benitez Primary Care Provider [phone] Chaka CHILDERS, Sam Benitez Primary Care Provider [phone] Chaka CHILDERS, Lucrecia Primary Care Provider [phone] Chaka CHILDERS, Sam Benitez Primary Care Provider [phone] Friend Kemar WEINSTEIN Unavailable [phone] CHAKA, LUCRECIA Primary Care Unavailable GUNNER SUTTON Attending Unavailable NULL, LUCRECIA Primary Care Unavailable MARY JO HERZOG Attending Unavailable NULL, LUCRECIA Primary Care Unavailable MARY JO HERZOG Attending Unavailable MARY JO HERZOG Referring Unavailable NULL, LUCRECIA Primary Care Unavailable MARY JO HERZOG Attending Unavailable GUNNER SUTTON Attending Unavailable SELF Referring Unavailable NULL, LUCRECIA Primary Care Unavailable NULL, LUCRECIA Primary Care Unavailable MARY JO HERZOG Admitting Unavailable MARY JO HERZOG Attending Unavailable GALA SCHRADER Attending Unavailable SELF Referring Unavailable NULL, LUCRECIA Primary Care Unavailable NULL, LUCRECIA Primary Care Unavailable VERITO CASH Referring Unavailable RAFFAELE MUSTAFA Referring Unavailabl e NULL, LUCRECIA Primary Care Unavailable NULL, LUCRECIA Primary Care Unavailable FRANK HYATT Referring Unavailable NULL, LUCRECIA Primary Care Unavailable VERITO CASH Attending Unavailable NULL, LUCRECIA Primary Care Unavailable NULL, LUCRECIA Attending Unavailable NULL, LUCRECIA Primary Care Unavailable RAFFAELE MUSTAFA Attending Unavailabl e NULL, LUCRECIA Primary Care Unavailable MERCBROOKET, RAFFAELE SUSAN Referring Unavailabl e NULL, LUCRECIA Primary Care Unavailable NULL, LUCRECIA Attending Unavailable GUNNER SUTTON Referring Unavailable NULL, LUCRECIA Primary Care Unavailable RAFFAELE MUSTAFA Attending Unavailbrunilda e VERITO CASH Referring Unavailable NULL, LUCRECIA Primary Care Unavailable RAFFAELE MUSTAFA Referring Unavailabl e NULL, LUCRECIA Primary Care Unavailable ANNETTE LOCKWOOD Attending Unavailable NULL, LUCRECIA Primary Care Unavailable NULL, LUCRECIA Primary Care Unavailable FRANK HYATT Attending Unavailable NULL, LUCRECIA Primary Care Unavailable FRAKN HYATT Referring Unavailable RAFFAELE MUSTAFA Attending Unavailabl e NULL, LUCRECIA Primary Care Unavailable NULL, LUCRECIA Primary Care Unavailable VERITO CASH Referring Unavailable Allergies Allergy Classification Reported Allergen(s) Allergy Type Date of Onset Reaction(s) Facility Iodine (and Iodine containting drugs) (1 source) Iodine Drug Allergy 04-14-2023 Swelling [facility] Work Phone: (20 sources) Seasonal allergy; 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: [SEASONAL ALLERGIES] Propensity to adverse reactions 04-08-2021 Intolerance [facility] Work Phone: (20 sources) Iodine; 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: [IODINE] Drug Allergy 04-14-2023 Swelling [facility] Work Phone: Medications Current Medications Medication Drug Class(es) Dates Sig (Normalized) Sig (Original) [id number] 200 actuat albuterol 0.09 mg/actuat metered dose inhaler (20 sources) beta2-Adrenergic Agonist Start: 03-21-2023 End: 11-13-2023 take 2 puff(s) by inhalation every four hours as needed albuterol HFA (PROAIR HFA) 90 mcg/actuation inhaler Indications: Mild intermittent asthma without complication Inhale 2 Puffs as instructed every 4 hours as needed. 1 Each 5 10/14/2023 Active Start: 10-08-2021 End: 12-27-2022 take 2 puff(s) by inhalation every four hours as needed albuterol HFA (PROAIR HFA) 90 mcg/actuation inhaler Indications: Mild intermittent asthma without complication Inhale 2 Puffs as instructed every 4 hours as needed. 1 Each 0 12/27/2022 Active Start: 04-08-2021 take 2 puff(s) by in halation every four hours as needed albuterol HFA (PROAIR HFA) 90 mcg/actuation inhaler Indications: Mild intermittent asthma without complication Inhale 2 Puffs as instructed every 4 hours as needed. 1 Inhaler 5 04/08/2021 Active Start: 02-13-2019 End: 12-27-2022 albuterol HFA (PROVENTIL HFA , VENTOLIN HFA) 90 mcg/actuation inhaler Q4H 0 02/13/2019 12/27/2022 Discontinued (Duplicate Entry) Comment on above: Q4H Inhale 2 Puffs as in structed every 4 hours as needed. amylase [id number] unt / lipase [id number] unt / protease [id number] unt delayed release oral capsule (9 sources) Start: CREON 36,000-114,000- 180,000 unit delayed release capsule 1 capsule with meals and at bedtime. 2-3 capsules with meals and 1-2 with snacks 10/07/2023 Active aspirin 81 mg delayed release oral tablet (20 sources) Platelet Aggregation Inhibitor, Nonsteroidal Anti-inflammatory Drug Start: take 1 tablet by mouth once daily aspirin, enteric coated (ASPIRIN, ENTERIC COATED) 81 mg EC tablet Take 1 tablet by mouth once daily. 0 01/23/2019 Active Comment on above: Take 1 tablet by destini th once daily. atorvastatin 20 mg oral tablet (20 sources) HMG-CoA Reductase Inhibitor Start: take 1 tablet by mouth once daily atorvastatin (LIPITOR) 20 mg tablet Take 20 mg by mouth once daily. 0 01/23/2019 Active Comment on above: Take 20 mg by mouth once daily. carvedilol 3.125 mg oral tablet (20 sources) alpha-Adrenergic Catarina, beta-Adrenergic Catarina Start: take 1 tablet by mouth once daily carvedilol (COREG) 3.125 mg tablet Take 1 tablet by mouth once daily. 01/23/2019 Active Comment on above: Take 1 tablet by destini th once daily. cholecalciferol 0.05 mg oral tablet (13 sources) Vitamin D Start: 10-18-2 024 take 1 tablet by mouth once daily cholecalciferol (VITAMIN D3) 50 mcg (2,000 unit) tablet Take 1 tablet by mouth once daily. 90 tablet 3 12/30/2023 Active Start: 10-10-2023 End: 12-30-2023 take [id number] [IU] by mouth once daily cholecalciferol, Vitamin D3, (VITAMIN D3) 1,250 mcg (50,000 unit) cap capsule Indications: vitamin D deficiency Take 1 capsule by mouth one time a week for 12 doses. Transition to 4,000-5,000 units of Vitamin D [id number] after completing 12 weeks of high-dose therapy. 12 capsule 10/10/2023 12/30/2023 Discontinued (Dosage adjustment) colestipol hydrochloride 1000 mg oral tablet (20 sources) Bile Acid Sequestrant Start: 07-17-2023 take 2 tablets by mouth twice daily colestipol (COLESTID) 1 gram tablet Take 2 tablets by mouth two times a day. 07/17/2023 Active Start: 11-25-2020 End: 07-17-2023 take 1 tablet by mouth once daily colestipol (COLESTID) 1 gram tablet Take 1 g by mouth once daily. 0 11/25/2020 07/17/2023 Discontinued Comment on above: Take 1 g by mouth on ce daily. CPAP (20 sources) Start: 6 CPAP AutoPAP 5-15 CM H2O with flex/EPR option, ramp, mask of choice, HUMIDITY. LIFETIME SUPPLIES. DME: [facility] 1 Device 0 08/20/2015 Active Comment on above: AutoPAP 5-15 CM H2O with flex/EPR option, ramp, mask of choice, HUMIDITY. LIFETIME SUPPLIES. 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 60 tablet 0 10/11/2022 11/10/2022 Active Start: 03-16-2022 take 1 tablet by destini th twice daily for pain diclofenac, EC, (VOLTAREN) 75 mg EC tablet Indications: 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 , Effusion of right knee take 1 tablet by mouth twice a day for pain 60 tablet 2 03/16/2022 Active Start: 12-09-2021 End: 01-08-2022 take 1 tablet by mouth twice daily for pain diclofenac, EC, (VOLTAREN) 75 mg EC tablet Indications: 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 , Effusion of right knee Take 1 tablet by mouth twice daily. FOR PAIN 60 tablet 2 12/09/2021 01/08/2022 Active Comment on above: Take 1 tablet by destini th twice daily. FOR PAIN take 1 tablet by destini th twice a day for pain Take 1 tablet by destini th twice daily. dicyclomine hydrochloride 10 mg oral capsule (20 sources) Anticholinergic Start: 12-14-19 19 dicyclomine (BENTYL) 10 mg capsule 10 mg. 12/13/2018 Active Comment on above: 10 mg. 120 actuat fluticasone propionate 0.22 mg/actuat metered dose inhaler (20 sources) Corticosteroid Start: 01-11-20 End: 07-15-19 24 take 2 spray(s) nasal route once daily at bedtime fluticasone (FLONASE) 50 mcg/actuation nasal spray instill 2 sprays into each nostril once daily at bedtime 1 Each 07/15/2023 Active Start: 12-28-2022 End: 07-15-2023 take 1 puff(s) by mouth twice daily fluticasone (FLOVENT HFA) 220 mcg/actuation inhaler Indications: Mild intermittent asthma without complication Inhale 1 Puff as instructed two times a day. Shake well before use. Rinse mouth after use. 1 Each 07/15/2023 Active Start: 10-11-2022 End: 12-17-2022 take 2 spray(s) nasal route once daily at bedtime fluticasone (FLONASE) 50 mcg/actuation nasal spray Use 2 Sprays in each nostril daily at bedtime. 1 Each 5 11/17/2022 12/17/2022 Start: 10-08-2021 End: 12-28-2022 take 2 puff(s) by mouth twice daily fluticasone (FLOVENT) 110 mcg/actuation inhaler Indications: Mild intermittent asthma without complication Inhale 2 Puffs as instructed twice daily. Shake well before use. Rinse mouth after use. 1 Each 0 11/03/2022 12/28/2022 Discontinued Start: 04-08-2021 take 2 puff(s) by mo uth twice daily fluticasone (FLOVENT) 110 mcg/actuation inhaler Indications: Mild intermittent asthma without complication Inhale 2 Puffs as instructed twice daily. Shake well before use. Rinse mouth after use. 1 Inhaler 5 04/08/2021 Active Comment on above: Inhale 2 Puffs as in structed twice daily. Shake well before use. Rinse mouth after use. Use 2 Sprays in each nostril daily at bedtime. Inhale 1 Puff as ins tructed two times a day. Shake well before use. Rinse mouth after use. instill 2 sprays int o each nostril once daily at bedtime hydrocortisone 25 mg/ml topical cream (20 sources) Corticosteroid Start: End: hydrocortisone 2.5 % cream Indications: Eczema, unspecified type Apply 1 application to affected area two times a day as needed (Apply sparingly to rash of hands, arms, legs for 1 week.). 28 g 5 07/15/2023 07/14/2024 Active Comment on above: Apply 1 application to affected area twice daily as needed (Apply sparingly to rash of hands, arms, legs for 1 week.). Apply 1 application to affected area two times a day as needed (Apply sparingly to rash of hands, arms, legs for 1 week.). hyoscyamine sulfate 0.125 mg oral tablet (9 sources) Start: 024 take 1 tablet by mouth every six hours as needed hyoscyamine (LEVSIN) 0.125 mg tablet Take 0.125 mg by mouth every 6 hours as needed. 1-2 tablets four times daily as needed 10/07/2023 Active ketotifen 0.25 mg/ml ophthalmic solution (20 sources) Histamine-1 Receptor Inhibitor Start: 023 take 1 drop(s) into the eye(s) twice daily EYE ITCH RELIEF 0.025 % (0.035 %) ophthalmic solution instill 1 drop into both eyes twice a day if needed 01/11/2023 Active Comment on above: instill 1 drop into both eyes twice a day if needed levothyroxine sodium 0.1 mg oral tablet (20 sources) l-Thyroxine Start: 024 take 1 tablet by mouth once levothyroxine (SYNTHROID) 100 mcg tablet Take 1 tablet by mouth once daily. Per [facility]. 30 tablet 07/17/2023 Active Start: 03-21-2023 End: 07-17-2023 take 1 tablet by mouth once levothyroxine (SYNTHROID) 112 mcg tablet Take 1 tablet by mouth once daily. Per endocrinology (Dr. Grant Morgan) 0 03/21/2023 07/17/2023 Discontinued Start: 11-29-2022 take 1 tablet by destini th once daily for thyroid dysfunction levothyroxine (SYNTHROID) 25 mcg tablet Indications: Subclinical hypothyroidism Take 1 tablet by mouth once daily. Take on empty stomach. For thyroid. 30 tablet 3 11/29/2022 Active Comment on above: Take 1 tablet by destini th once daily. Take on empty stomach. For thyroid. Take 1 tablet by destini th once daily. Per endocrinology (Dr. Grant Morgan) nitroglycerin 0.4 mg sublingual tablet (20 sources) Nitrate Vasodilator Start: 01-24-20 19 nitroglycerin sublingual (NITROQUICK) 0.4 mg SL tablet 0.4 mg. 01/23/2019 Active Comment on above: 0.4 mg. olopatadine 1 mg/ml ophthalmic solution (20 sources) Histamine-1 Receptor Inhibitor Start: 01-27-20 23 olopatadine (PATANOL) 0.1 % ophthalmic solution 01/26/2023 Active omeprazole 40 mg delayed release oral capsule (20 sources) Proton Pump Inhibitor Start: 10-14-19 24 take 1 capsule by mouth once daily omeprazole (PRILOSEC) 40 mg capsule Take 1 capsule by mouth once daily. 10/14/2023 Active Start: 11-17-2022 End: 07-17-2023 take 1 capsule by mouth once daily omeprazole (PRILOSEC) 40 mg capsule Take 1 capsule by mouth once daily. 0 11/17/2022 07/17/2023 Discontinued Comment on above: Take 1 capsule by mo [facility] once daily. pantoprazole 40 mg delayed release oral tablet (20 sources) Proton Pump Inhibitor Start: 3 End: 4 take 1 tablet by mouth twice daily before mealtime pantoprazole DR (PROTONIX) 40 mg tablet Take 1 tablet by mouth two times a day. Take on empty stomach, 1/2 hr before meal. 10/14/2023 Active Start: 04-09-2021 End: 11-17-2022 take 1 tablet by mouth once daily before breakfast pantoprazole DR (PROTONIX) 40 mg tablet Take 1 tablet by mouth daily before breakfast. Take on empty stomach, 1/2 hr before meal. 0 04/09/2021 11/17/2022 Discontinued Comment on above: Take 1 tablet by destini th daily before breakfast. Take on empty stomach, 1/2 hr before meal. Take 1 tablet by destini th twice daily. Take on empty stomach, 1/2 hr before meal. potassium chloride 10 meq extended release oral capsule (20 sources) Start: 02-17-20 17 take 1 capsule by mouth once daily potassium chloride SR (MICRO-K) 10 mEq CR capsule Indications: Edema, unspecified type Take 1 capsule by mouth once daily. 30 capsule 6 02/16/2017 Active Comment on above: Take 1 capsule by mo [facility] once daily. spironolactone 25 mg oral tablet (20 sources) Aldosterone Antagonist Start: 01-22-20 23 take 1 tablet by mouth once spironolactone (ALDACTONE) 25 mg tablet Take 1 tablet by mouth every afternoon. Per [facility] 03/21/2023 Active Comment on above: Take 1 tablet by destini th every afternoon. Take 1 tablet by destini th every afternoon. Per [facility] torsemide 20 mg oral tablet (19 sources) Loop Diuretic Start: 08-12-19 24 End: 10-14-19 24 take 1 tablet by mouth twice daily torsemide (DEMADEX) 20 mg tablet take 1 tablet by mouth twice a day (STOP FUROSEMIDE) 08/12/2023 Active Completed/Discontinued Medications Medication Drug Class(es) Dates Sig (Normalized) Sig (Original) etodolac 400 mg oral tablet (2 sources) Nonsteroidal Anti-inflammatory Drug Start: 10-26-2021 End: 12-09-2021 take 1 tablet by mouth twice daily etodolac (LODINE) 400 mg tablet Take 1 tablet by mouth twice daily. 60 tablet 0 10/26/2021 12/09/2021 Discontinued Comment on above: Take 1 tablet by destini th twice daily. furosemide 40 mg oral tablet (20 sources) Loop Diuretic Start: 03-21-2023 End: 10-14-2023 furosemide (LASIX) 40 mg tablet Take 1 tablet by mouth two times a day. Per [facility] 0 03/21/2023 10/14/2023 Discontinued (Discontinued by another Health Care Provider) Start: 02-01-2019 End: 07-06-2023 take 1 tablet by mouth once daily furosemide (LASIX) 20 mg tablet Indications: Edema, unspecified type Take 1 tablet by mouth once daily. 6 02/01/2019 07/06/2023 Discontinued Comment on above: Take 1 tablet by destini th once daily. Take 1 tablet by destini th two times a day. Per [facility] lidocaine hydrochloride 0.02 mg/mg topical gel (1 source) Antiarrhythmic, Amide Local Anesthetic Start: 07-21-2023 End: 07-21-2023 lidocaine urojet 2 % 11 mL topical gel (GLYDO) Start: 07-21-2023 End: 07-21-2023 lidocaine urojet 2 % 11 mL t opical gel (GLYDO) OMEPRAZOLE, BULK, MISC (15 sources) End: 10-14-2023 OMEPRAZOLE, BULK, MISC 40 mg once daily. 0 10/14/2023 Discontinued OMEPRAZOLE, BULK , MISC 40 mg once daily. 0 Active Phentermine (6 sources) Sympathomimetic Amine Anorectic End: 04-12-2022 phentermine HCl (PHENTERMINE ORAL) Take by mouth. 0 04/12/2022 Discontinued (Course of therapy completed) phentermine HCl (PHENTERMINE ORAL) Take by mouth. 0 Active Comment on above: Take by mouth. sodium chloride 0.154 meq/ml irrigation solution (1 source) Start: 07-21-2023 End: 07-21-2023 NaCl 0.9% irrigation solution Start: 07-21-2023 End: 07-21-2023 NaCl 0.9% irrigation solutio n traMADol hydrochloride 50 mg oral tablet (20 sources) Opioid Agonist Start: 02-21-2023 End: 10-14-2023 take 1 tablet by mouth every six hours as needed for pain traMADol (ULTRAM) 50 mg tablet Indications: Multiple leg contusions, right, initial encounter , Acute pain of right knee , Primary osteoarthritis of right knee Take 1 tablet by mouth every 6 hours as needed for pain. 20 tablet 0 02/21/2023 10/14/2023 Discontinued Comment on above: Take 1 tablet by destini th every 6 hours as needed for pain. Problems Active Problems Problem Classification Problem Date Documented Da te Episodic/Chronic Administrative/social admission (1 source) Impaired mobility; 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: [Other reduced mobility] Episodic Asthma (20 sources) Asthma; 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: [Unspecified asthma, uncomplicated] Onset: 9 07-31-2015 Chronic Cardiac dysrhythmias (4 sources) Atrial fibrillation; 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: [Unspecified atrial fibrillation] Onset: 4 09-08-2023 Chronic Chronic kidney disease (20 sources) Chronic kidney disease stage 3A ; 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: [Chronic renal impairment, stage 3a] Onset: 2 04-08-2021 Chronic Chronic kidney disease (2 sources) Chronic kidney disease; 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: [Stage 3 chronic kidney disease, unspecified whether stage 3a or 3b CKD ([facility])] Onset: 3 Disorders of lipid metabolism (1 source) Hyperlipidemia; 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: [Hyperlipidemia, unspecified] 09-20-2023 Chronic Esophageal disorders (20 sources) Gastroesophageal reflux disease; 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: [Gastro-esophageal reflux disease without esophagitis] Onset: 1 07-29-2010 Chronic Immunizations and screening for infectious disease (2 sources) Vaccination needed; 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: [Encounter for immunization] Onset: 4 10-14-2023 Episodic Nutritional deficiencies (5 sources) Vitamin D deficiency; 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: [Vitamin D deficiency, unspecified] Onset: 4 10-10-2023 Chronic Nutritional deficiencies (2 sources) Folic acid deficiency; 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: [Deficiency of other specified B group vitamins] Onset: 4 10-10-2023 Episodic Osteoarthritis (4 sources) Osteoarthritis of right knee joint; 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: [Unilateral primary osteoarthritis, right knee] Chronic Other aftercare (1 source) [facility] current use of non-steroidal anti-inflammatory drug; 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: [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) use of non-steroidal anti-inflammatories (NSAID)] 11-18-2023 Episodic Other diseases of kidney and ureters (1 source) Renal impairment; 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: [Disorder of kidney and ureter, unspecified] 12-03-2022 Episodic Other diseases of veins and lymphatics (1 source) Lymphedema; 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: [Lymphedema, not elsewhere classified] 09-20-2023 Chronic Other gastrointestinal disorders (20 sources) Irritable bowel syndrome with diarrhea; 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: [Irritable bowel syndrome with diarrhea] Onset: 6 08-04-2015 Chronic Other gastrointestinal disorders (1 source) Irritable bowel syndrome; 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: [Irritable bowel syndrome without diarrhea] 09-20-2023 Chronic Other gastrointestinal disorders (1 source) Esophageal dysphagia; 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: [Other dysphagia] 07-06-2023 Episodic Other non-traumatic joint disorders (8 sources) Effusion of right knee joint; 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: [Effusion, right knee] Episodic Other non-traumatic joint disorders (7 sources) Instability of right patellofemoral joint; 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: [Other instability, right knee] Episodic Other non-traumatic joint disorders (1 source) Joint pain; 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: [Pain in unspecified joint] 09-20-2023 Episodic Other nutritional; endocrine; and metabolic disorders (20 sources) Body mass index 40+ - severely obese; 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: [Morbid (severe) obesity due to excess calories] Onset: 8 07-27-2017 Chronic Other nutritional; endocrine; and metabolic disorders (6 sources) Severe obesity; 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: [Morbid (severe) obesity due to excess calories] 07-06-2023 Chronic Other nutritional; endocrine; and metabolic disorders (4 sources) Morbid (severe) obesity due to excess calories; 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: [Class 3 severe obesity due to excess calories with serious comorbidity and body mass index (BMI) of 45.0 to 49.9 in adult (HCC)] Onset: 8 Chronic Other nutritional; endocrine; and metabolic disorders (3 sources) Body mass index (BMI) 45.0-49.9, adult; 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: [Class 3 severe obesity due to excess calories with serious comorbidity and body mass index (BMI) of 45.0 to 49.9 in adult (HCC)] Onset: 4 Chronic Other nutritional; endocrine; and metabolic disorders (1 source) Weight gain; 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: [Abnormal weight gain] 11-17-2022 Episodic Residual codes; unclassified (20 sources) 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 apnea syndrome; 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: [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 apnea (adult) (pediatric)] Onset: 9 04-08-2021 Chronic Residual codes; unclassified (1 source) 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 apnea (adult) (pediatric); 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: [VETO treated with BiPAP] Onset: 4 Chronic Screening and history of mental health and substance abuse codes (2 sources) Encounter for screening for depression; 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: [Encounter for screening examination for other mental health and behavioral disorders] Onset: 4 Episodic Thyroid disorders (20 sources) Subclinical hypothyroidism; 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: [Other specified hypothyroidism] Onset: 3 11-29-2022 Chronic Past or Other Problems Problem Classification Problem Date Documented Da te Episodic/Chronic Abdominal hernia (4 sources) Paraesophageal hernia; 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: [Diaphragmatic hernia without obstruction or gangrene] Onset: 09-08-2023 07-06-2023 Episodic Allergic reactions (20 sources) Eczema; 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: [Dermatitis, unspecified] Onset: 03-21-2023 10-08-2022 Episodic Diabetes mellitus without complication (2 sources) Hyperglycemia; 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: [Hyperglycemia, unspecified] Onset: 07-13-2023 07-12-2023 Episodic Gastritis and duodenitis (20 sources) Bile-induced gastritis; 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: [Other gastritis without bleeding] Onset: 04-08-2021 04-08-2021 Episodic Malaise and fatigue (1 source) Other fatigue; 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: [Fatigue, unspecified type] Onset: 03-21-2023 Episodic Mycoses (20 sources) Onychomycosis due to dermatophyte ; 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: [Tinea unguium] Onset: 04-08-2021 Resolved: 10-08-2021 04-08-2021 Episodic Nephritis; nephrosis; renal sclerosis (20 sources) Atrophy of right kidney; 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: [Atrophy of kidney (terminal)] Onset: 01-27-2023 Resolved: 10-14-2023 01-27-2023 Chronic Nonspecific chest pain (20 sources) Atypical chest pain; 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: [Other chest pain] Onset: 04-08-2021 04-09-2021 Episodic Other and unspecified benign neoplasm (20 sources) Polyp of colon; 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: [Polyp of colon] Onset: 07-17-2020 04-08-2021 Episodic Other gastrointestinal disorders (1 source) Other dysphagia; 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: [Esophageal dysphagia] Onset: 07-06-2023 Episodic Other lower respiratory disease (1 source) Shortness of breath; 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: [SOB (shortness of breath)] Onset: 03-21-2023 Episodic Other nervous system disorders (20 sources) Bilateral carpal tunnel syndrome; 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: [Carpal tunnel syndrome, bilateral upper limbs] Onset: 10-16-2015 Resolved: 10-14-2023 10-16-2015 Chronic Other non-traumatic joint disorders (10 sources) Pain in right knee; 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: [Pain in joint, lower leg] Onset: 02-21-2023 Episodic Other non-traumatic joint disorders (20 sources) Pain in lower limb; 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: [Pain in unspecified knee] Onset: 2010 Resolved: 07-31-2015 07-31-2015 Episodic Other nutritional; endocrine; and metabolic disorders (20 sources) Obesity caused by energy imbalance; 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: [Other obesity due to excess calories] Onset: 06-13-2008 Resolved: 04-08-2021 04-08-2021 Chronic Other nutritional; endocrine; and metabolic disorders (20 sources) Loss of appetite; 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: [Anorexia] Onset: 07-15-2023 07-15-2023 Episodic Other screening for suspected conditions (not mental disorders or infectious disease) (9 sources) Patient encounter status; 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: [Encounter for screening mammogram for malignant neoplasm of breast] Onset: 01-27-2023 Episodic Residual codes; unclassified (20 sources) Edema; 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: [Edema, unspecified] Onset: 06-13-2008 06-13-2008 Episodic Residual codes; unclassified (1 source) Edema, unspecified; 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: [Edema, unspecified type] Onset: 06-13-2008 Episodic Spondylosis; intervertebral disc disorders; other back problems (20 sources) Chronic low back pain; 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: [Chronic midline low back pain without sciatica] Onset: 07-31-2015 Resolved: 10-14-2023 04-05-2017 Episodic Spontaneous (20 sources) Complete miscarriage; 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: [Complete or unspecified spontaneous without complication] Onset: 01-01-2005 Resolved: 06-26-2010 06-26-2010 Episodic Substance-related disorders (20 sources) Tobacco user; 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: [Nicotine dependence, unspecified, uncomplicated] Onset: 06-13-2008 Resolved: 07-31-2015 07-31-2015 Chronic Superficial injury; contusion (5 sources) Contusion of multiple sites of lower limb; 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: [Contusion of right lower leg, initial encounter] Onset: 02-21-2023 02-21-2023 Episodic Results Test Name Value Interpretation Reference Range Facility [facility] 12-26-2023 [facility] Telephone ([facility]) STALINLIZZY ([id number]) 1965 F T Date Time Provider Department 12/26/23 ANNETTE LOCKWOOD [facility] During your visit today, we recorded the following information about you: Ebony Monroy 12/26/2023 11:02 AM Signed Name of Caller: lizzy Relationship to patient: patient Last visit in this department: 11/18/2023 Reason for Call: Other : wants to know what vitamin D supp she should be taking Callback number: [phone] Pia Guy, RN 12/29/2023 1:35 PM Signed Called to advise 2000 units Vitamin D daily. Patient requesting script for financial reasons. Ellen Martins MA 12/30/2023 8:50 AM Signed Spoke to patient- Patient wants a prescription states that [facility] will pay for it. Annette Lockwood, 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[facility] 12/30/2023 12:31 PM [facility] Annette Lockwood APRN.[employer] Allergies As of Date: 12/26/2023 Noted Allergy Reaction IV CONTRAST (IODINE) 04/14/2023 7 - Swelling SEASONAL ALLERGIES 04/08/2021 5 - Intolerance Date Reviewed: 12/12/2023 Reviewed by: Gunner Sutton APRN.[employer] - Fully Assessed Order(s):cholecalcifer ol (VITAMIN D3) 50 mcg (2,000 unit) tabletTake 1 tablet by mouth once daily.Disp: 90 tabletRfl: 3 Prescriptions as of 12/30/2023 - cholecalciferol (VITAMIN D3) 50 mcg (2,000 unit) tablet Take 1 tablet by mouth once daily. - CREON 36,000-114,000- 180,000 unit delayed release capsule 1 capsule with meals and at bedtime. 2-3 capsules with meals and 1-2 with snacks - hyoscyamine (LEVSIN) 0.125 mg tablet Take 0.125 mg by mouth every 6 hours as needed. 1-2 tablets four times daily as needed - albuterol HFA (PROAIR HFA) 90 mcg/actuation inhaler Inhale 2 Puffs as instructed every 4 hours as needed. - pantoprazole DR (PROTONIX) 40 mg tablet Take 1 tablet by mouth two times a day. Take on empty stomach, 1/2 hr before meal. - omeprazole (PRILOSEC) 40 mg capsule Take 1 capsule by mouth once daily. - diclofenac, EC, (VOLTAREN) 75 mg EC tablet take 1 tablet by mouth twice a day - torsemide (DEMADEX) 20 mg tablet take 1 tablet by mouth twice a day (STOP FUROSEMIDE) - levothyroxine (SYNTHROID) 100 mcg tablet Take 1 tablet by mouth once daily. Per [facility]. - colestipol (COLESTID) 1 gram tablet Take 2 tablets by mouth two times a day. - fluticasone (FLONASE) 50 mcg/actuation nasal spray instill 2 sprays into each nostril once daily at bedtime - fluticasone (FLOVENT HFA) 220 mcg/actuation inhaler Inhale 1 Puff as instructed two times a day. Shake well before use. Rinse mouth after use. - hydrocortisone 2.5 % cream Apply 1 application to affected area two times a day as needed (Apply sparingly to rash of hands, arms, legs for 1 week.). - spironolactone (ALDACTONE) 25 mg tablet Take 1 tablet by mouth every afternoon. Per [facility] - olopatadine (PATANOL) 0.1 % ophthalmic solution - EYE ITCH RELIEF 0.025 % (0.035 %) ophthalmic solution instill 1 drop into both eyes twice a day if needed - dicyclomine (BENTYL) 10 mg capsule 10 mg. - nitroglycerin sublingual (NITROQUICK) 0.4 mg SL [...] mask of choice, HUMIDITY. LIFETIME SUPPLIES. DME: [facility] Problem List As Of Date 12/26/2023 Noted Resolved Complete spontaneous without mention o*01/01/2005 06/26/2010 Tobacco use disorder [F17.200] 06/13/2008 07/31/2015 Asthma [J45.909] 06/13/2008 Non morbid obesity due to excess calories [E66.*06/13/2008 04/08/2021 EDEMA [R60.9] 06/13/2008 VETO on CPAP [G47.33] 08/20/2008 Pain in joint, lower leg [M25.569] 2010 07/31/2015 GERD (gastroesophageal reflux disease) [K21.9] 07/29/2010 Chronic midline low back pain without sciatica *07/31/2015 10/14/2023 Irritable bowel syndrome with diarrhea [K58.0] 08/04/2015 Carpal tunnel syndrome, bilateral [G56.03] 10/16/2015 10/14/2023 Obesity, Class III, BMI 40-49.9 (morbid obesity*07/27/2017 Stage 3a chronic kidney disease (HCC) [N18.31] 04/08/2021 Dermatophytosis of nail [B35.1] 04/08/2021 10/08/2021 Atypical chest pain [R07.89] 04/08/2021 Bile-induced gastritis [K29.60] 04/08/2021 Colon polyp [K63.5] 07/17/2020 Subclinical hypothyroidism [E03.8] 11/29/2022 Right renal atrophy [N26.1] 01/27/2023 10/14/2023 Eczema [L30.9] 07/15/2023 No appetite [R63.0] 07/15/2023 Prescriptions ordered this encounter Disp Refills Start End CHOLECALCIFEROL (VITAMIN D3) 50 MCG * 90 t* 3 12/30/2023 Route: ORAL Sig: Take 1 tablet by mouth on (more content not included)... Normal [facility] CNCOon 12-13-2023 CNCO Letter Text Normal [facility] CNPNon 12-13-2023 CNPN Telephone ([facility]) STALINLIZZY My ([id number]) 1965 F T Date Time Provider Department 12/13/23 MARY JO HREZOGENS4 During your visit today, we recorded the following information about you: Cassie Suh RN 12/13/2023 10:11 AM Signed Cardiology Clearance letter sent/faxed to Porfirio Jeff APRN.CNP. Cassie Suh RN, BSN Bariatric Np Cassie Suh RN 12/13/2023 10:11 AM Signed Nephrology Clearance Letter sent/faxed to Annette Lockwood APRN.CNP. Cassie Suh RN, BSN Bariatric Np Cassie Suh RN 12/13/2023 10:15 AM Signed Pulmonary clearance letter sent/faxed to CNP. Cassie Benson, RN, BSN Bariatric Np Arianne Lee LPN 12/16/2023 2:05 PM Signed Cardiology Clearance letter scanned into chart Gunner Sutton APRN.ERICK 12/16/2023 2:12 PM Signed Pulm - moderate risk. Cardiac - low risk. Gunner Sutton APRN.ERICK Allergies As of Date: 12/13/2023 Noted Allergy Reaction IV CONTRAST (IODINE) 04/14/2023 7 - Swelling SEASONAL ALLERGIES 04/08/2021 5 - Intolerance Date Reviewed: 12/12/2023 Reviewed by: Gunner Sutton APRN.ERICK - Fully Assessed Reason for Visit: Medical Clearance [1983] Prescriptions as of 12/16/2023 - CREON 36,000-114,000- 180,000 unit delayed release capsule 1 capsule with meals and at bedtime. 2-3 capsules with meals and 1-2 with snacks - hyoscyamine (LEVSIN) 0.125 mg tablet Take 0.125 mg by mouth every 6 hours as needed. 1-2 tablets four times daily as needed - albuterol HFA (PROAIR HFA) 90 mcg/actuation inhaler Inhale 2 Puffs as instructed every 4 hours as needed. - pantoprazole DR (PROTONIX) 40 mg tablet Take 1 tablet by mouth two times a day. Take on empty stomach, 1/2 hr before meal. - omeprazole (PRILOSEC) 40 mg capsule Take 1 capsule by mouth once daily. - cholecalciferol, Vitamin D3, (VITAMIN D3) 1,250 mcg (50,000 unit) cap capsule Take 1 capsule by mouth one time a week for 12 doses. Transition to 4,000-5,000 units of Vitamin D givd-ske-vlmazha after completing 12 weeks of high-dose therapy. - diclofenac, EC, (VOLTAREN) 75 mg EC tablet take 1 tablet by mouth twice a day - torsemide (DEMADEX) 20 mg tablet take 1 tablet by mouth twice a day (STOP FUROSEMIDE) - levothyroxine (SYNTHROID) 100 mcg tablet Take 1 tablet by mouth once daily. Per [facility]. - colestipol (COLESTID) 1 gram tablet Take 2 tablets by mouth two times a day. - fluticasone (FLONASE) 50 mcg/actuation nasal spray instill 2 sprays into each nostril once daily at bedtime - fluticasone (FLOVENT HFA) 220 mcg/actuation inhaler Inhale 1 Puff as instructed two times a day. Shake well before use. Rinse mouth after use. - hydrocortisone 2.5 % cream Apply 1 application to affected area two times a day as needed (Apply sparingly to rash of hands, arms, legs for 1 week.). - spironolactone (ALDACTONE) 25 mg tablet Take 1 tablet by mouth every afternoon. Per [facility] - olopatadine (PATANOL) 0.1 % ophthalmic solution - EYE ITCH RELIEF 0.025 % (0.035 %) ophthalmic solution instill 1 drop into both eyes twice a day if needed - dicyclomine (BENTYL) 10 mg capsule 10 mg. - nitroglycerin sublingual (NITROQUICK) 0.4 mg SL [...] mask of choice, HUMIDITY. LIFETIME SUPPLIES. DME: [facility] Problem List As Of Date 12/13/2023 Noted Resolved Complete spontaneous without mention o*01/01/2005 06/26/2010 Tobacco use disorder [F17.200] 06/13/2008 07/31/2015 Asthma [J45.909] 06/13/2008 Non morbid obesity due to excess calories [E66.*06/13/2008 04/08/2021 EDEMA [R60.9] 06/13/2008 VETO on CPAP [G47.33] 08/20/2008 Pain in joint, lower leg [M25.569] 2010 07/31/2015 GERD (gastroesophageal reflux disease) [K21.9] 07/29/2010 Chronic midline low back pain without sciatica *07/31/2015 10/14/2023 Irritable bowel syndrome with diarrhea [K58.0] 08/04/2015 Carpal tunnel syndrome, bilateral [G56.03] 10/16/2015 10/14/2023 Obesity, Class III, BMI 40-49.9 (morbid obesity*07/27/2017 Stage 3a chronic kidney disease (HCC) [N18.31] 04/08/2021 Dermatophytosis of nail [B35.1] 04/08/2021 10/08/2021 Atypical chest pain [R07.89] 04/08/2021 Bile-induced gastritis [K29.60] 04/08/2021 Colon polyp [K63.5] 07/17/2020 Subclinical hypothyroidism [E03.8] 11/29/2022 Right renal atrophy [N26.1] 01/27/2023 10/14/2023 Eczema [L30.9] 07/15/2023 No appetite [R63.0] 05 (more content not included)... Normal [facility] 11-22-2023 ERICKN Telephone ([facility]) STALINLIZZY ([id number]) 1965 F CHT Date Time Provider Department 11/22/23 SOFÍA MULTANI4 During your visit today, we recorded the following information about you: Sofía Multani APRN.CNP 11/22/2023 9:55 AM Signed Called patient to review RUQ US results demonstrating NAFLD and possible cirrhosis. She reports that she has already discussed the results with her talent recruiter (Dr. Byrnes) and has been scheduled for a liver biopsy. Sofía Multani APRN.ERICK Allergies As of Date: 11/22/2023 Noted Allergy Reaction IV CONTRAST (IODINE) 04/14/2023 7 - Swelling SEASONAL ALLERGIES 04/08/2021 5 - Intolerance Date Reviewed: 11/18/2023 Reviewed by: Annette Lockwood APRN.CNP - Fully Assessed Reason for Visit: Results [95] Prescriptions as of 11/22/2023 - CREON 36,000-114,000- 180,000 unit delayed release capsule 1 capsule with meals and at bedtime. 2-3 capsules with meals and 1-2 with snacks - hyoscyamine (LEVSIN) 0.125 mg tablet Take 0.125 mg by mouth every 6 hours as needed. 1-2 tablets four times daily as needed - albuterol HFA (PROAIR HFA) 90 mcg/actuation inhaler Inhale 2 Puffs as instructed every 4 hours as needed. - pantoprazole DR (PROTONIX) 40 mg tablet Take 1 tablet by mouth two times a day. Take on empty stomach, 1/2 hr before meal. - omeprazole (PRILOSEC) 40 mg capsule Take 1 capsule by mouth once daily. - cholecalciferol, Vitamin D3, (VITAMIN D3) 1,250 mcg (50,000 unit) cap capsule Take 1 capsule by mouth one time a week for 12 doses. Transition to 4,000-5,000 units of Vitamin D tusz-zqw-onxhioe after completing 12 weeks of high-dose therapy. - diclofenac, EC, (VOLTAREN) 75 mg EC tablet take 1 tablet by mouth twice a day - torsemide (DEMADEX) 20 mg tablet take 1 tablet by mouth twice a day (STOP FUROSEMIDE) - levothyroxine (SYNTHROID) 100 mcg tablet Take 1 tablet by mouth once daily. Per [facility]. - colestipol (COLESTID) 1 gram tablet Take 2 tablets by mouth two times a day. - fluticasone (FLONASE) 50 mcg/actuation nasal spray instill 2 sprays into each nostril once daily at bedtime - fluticasone (FLOVENT HFA) 220 mcg/actuation inhaler Inhale 1 Puff as instructed two times a day. Shake well before use. Rinse mouth after use. - hydrocortisone 2.5 % cream Apply 1 application to affected area two times a day as needed (Apply sparingly to rash of hands, arms, legs for 1 week.). - spironolactone (ALDACTONE) 25 mg tablet Take 1 tablet by mouth every afternoon. Per [facility] - olopatadine (PATANOL) 0.1 % ophthalmic solution - EYE ITCH RELIEF 0.025 % (0.035 %) ophthalmic solution instill 1 drop into both eyes twice a day if needed - dicyclomine (BENTYL) 10 mg capsule 10 mg. - nitroglycerin sublingual (NITROQUICK) 0.4 mg SL [...] mask of choice, HUMIDITY. LIFETIME SUPPLIES. DME: [facility] Problem List As Of Date 11/22/2023 Noted Resolved Complete spontaneous without mention o*01/01/2005 06/26/2010 Tobacco use disorder [F17.200] 06/13/2008 07/31/2015 Asthma [J45.909] 06/13/2008 Non morbid obesity due to excess calories [E66.*06/13/2008 04/08/2021 EDEMA [R60.9] 06/13/2008 VETO on CPAP [G47.33] 08/20/2008 Pain in joint, lower leg [M25.569] 2010 07/31/2015 GERD (gastroesophageal reflux disease) [K21.9] 07/29/2010 Chronic midline low back pain without sciatica *07/31/2015 10/14/2023 Irritable bowel syndrome with diarrhea [K58.0] 08/04/2015 Carpal tunnel syndrome, bilateral [G56.03] 10/16/2015 10/14/2023 Obesity, Class III, BMI 40-49.9 (morbid obesity*07/27/2017 Stage 3a chronic kidney disease (HCC) [N18.31] 04/08/2021 Dermatophytosis of nail [B35.1] 04/08/2021 10/08/2021 Atypical chest pain [R07.89] 04/08/2021 Bile-induced gastritis [K29.60] 04/08/2021 Colon polyp [K63.5] 07/17/2020 Subclinical hypothyroidism [E03.8] 11/29/2022 Right renal atrophy [N26.1] 01/27/2023 10/14/2023 Eczema [L30.9] 07/15/2023 No appetite [R63.0] 07/15/2023 Encounter Status:Closed by SOFÍA MULTANI on 11/22/23 Normal [facility] CNOVon 11-18-2023 CNOV Office Visit ([facility] ) LIZZY GANT ([id number]) 1965 F CHT Date Time Provider Department 11/18/23 11:20 AM ANNETTE LOCKWOOD [facility] During your visit today, we recorded the following information about you: Pulse Blood pressure Weight 60/minute 114/76 116 kg Annette Lockwood, 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[employer] 11/18/2023 12:49 PM Signed [facility] SERVICE DATE: 11/18/2023 SERVICE TIME: 12:04 PM CHIEF COMPLAINT: Follow up CKD 3A HPI: 58 year old female who presents for follow up CKD 3A with PMHx of VETO on CPAP, A-fib on carvedilol, IBS-D, GERD r/t Paraesophageal hernia on PPI x 2, and hypothyroidism Since last visit she is continuing to take Voltaren. No Hospitalizations. Feels sore today with chronic pain. Following with Bariatrics for possible RYGB. BPs at home not checked Weights: stable Medication adherence is stable Not following a low salt diet. Uses Lawry's salt regularly Drinking 2Ls water per day Assessment/Plan from [facility] with Raffaele Mustafa on 08/24/2023. 58 year old female with bilateral carpal tunnel, obesity, GERD who presents for elevated creatinine. Chronic Kidney Disease Stage 3a Elevated Cr Rt Renal Atrophy Baseline Cr 1.0 Patient has risk factor of Obesity (BMI 47) and PPI. KBUS with smaller sized kidneys and rt kidney with small size and thinned parenchyma. No EMMA by Renal Duplex assessment. No proteinuria, suggests favorable prognosis. Cr most recently is stable. No signs of progression and protein remains negative on UA. She does have some LE positivity and noted the pantoprazole and omeprazole. Patient again reports she needs both of these for symptom control. GERD: Continues on two Chronic PPIs, on pantoprazole and omeprazole. Reports symptoms recur and are debilitating if she is on either. Will not adjust due to patient preference. Blood Pressure: At goal today. On Torsemide and Spironolactone. Volume Status: Patient has history of volume overload and is on diuretics. She continues to be focused on this. Exam is not overwhelming but patient feels better on diuretics. Ok to continue for now as long as Cr stays stable. Obesity - Says she is looking into bariatric surgery. PLAN: -Recheck Renal Function panel and CBC in October ~3 months from last check. -Torsemide per cardiology. -Revisited PPIs again today, patient wishes to continue both -Follow up in 6 months. PAST MEDICAL HISTORY: ACTIVE PROBLEM LIST Asthma Edema Veto On Cpap Gerd (Gastroesophageal Reflux Disease) Irritable Bowel Syndrome With Diarrhea Obesity, Class Iii, Bmi 40-49.9 (Morbid Obesity) (Hcc) Stage 3a Chronic Kidney Disease (Hcc) Atypical Chest Pain Bile-Induced Gastritis Colon Polyp Subclinical Hypothyroidism Eczema No Appetite MEDICATIONS: CREON 36,000-114,000- 180,000 unit delayed release capsule 1 capsule with meals and at bedtime. 2-3 capsules with meals and 1-2 with snacks hyoscyamine (LEVSIN) 0.125 mg tablet Take 0.125 mg by mouth every 6 hours as needed. 1-2 tablets four times daily as needed albuterol HFA (PROAIR HFA) 90 mcg/actuation inhaler Inhale 2 Puffs as instructed every 4 hours as needed. pantoprazole DR (PROTONIX) 40 mg tablet Take 1 tablet by mouth two times a day. Take on empty stomach, 1/2 hr before meal. omeprazole (PRILOSEC) 40 mg capsule Take 1 capsule by mouth once daily. cholecalciferol, Vitamin D3, (VITAMIN D3) 1,250 mcg (50,000 unit) cap capsule Take 1 capsule by mouth one time a week for 12 doses. Transition to 4,000-5,000 units of Vitamin D ekth-tya-utbjwyy after completing 12 weeks of high-dose therapy. diclofenac, EC, (VOLTAREN) 75 mg EC tablet take 1 tablet by mouth twice a day torsemide (DEMADEX) 20 mg tablet take 1 tablet by mouth twice a day (STOP FUROSEMIDE) levothyroxine (SYNTHROID) 100 mcg tablet Take 1 tablet by mouth once daily. Per [facility]. colestipol (COLESTID) 1 gram tablet Take 2 tablets by mouth two times a day. fluticasone (FLONASE) 50 mcg/actuation nasal spray instill [...] of hands, arms, legs for 1 week.). spironolactone (ALDACTONE) 25 mg tablet Take 1 tablet by mouth every afternoon. Per [facility] olopatadine (PATANOL) 0.1 % ophthalmic solution EYE ITCH RELIEF 0.025 % (0.035 %) ophthalmic solution instill 1 drop into both eyes twice a day if needed dicyclomine (BENTYL) 10 mg capsule 10 mg. nitroglycerin sublingual (NITROQUICK) 0.4 mg SL tablet 0.4 mg. aspirin, enteric coated (ASPIRIN, ENTERIC COATED) 81 mg EC tablet Take 1 tablet by mouth once da (more content not included)... Normal [facility] 25-hydroxyvitamin D3 [Mass/Vol] 33.7 ng/mL Normal 31.0-80.0 [facility] Comment on above: Order Comment: Speci men Type: BLOOD SPECIMEN Ordering Facility: [facility] Address: [address] [place] [address] Result Comment: Clas sification of 25 OH Vitamin D status: Deficiency/Insufficiency: < or = 30 ng/ml. Sufficiency/Optimal Levels: 31-80 ng/mL Toxicity: > 100 ng/mL. Test performed by chemiluminescent immunoassay. Performed By: #### 1 989-3 #### [facility] CLIA [id number] [address] [place] [address] [place] Folate SerPl-mCncon 11-04-19 24 Folate [Mass/Vol] 5.8 ng/mL Normal >4.7 [facility] Comment on above: Order Comment: Speci men Type: BLOOD SPECIMENOrdering Facility: [facility] Address: [address] [place] [address] Performed By: #### 2 4331-1, 8, 2283-10 ####[facility] [id number] [place] [address] [place] Lipid 1996 panelon 4 Cholesterol [Mass/Vol] 129 mg/dL Normal <200 [facility] Comment on above: Order Comment: Speci men Type: BLOOD SPECIMENOrdering Facility: [facility] Address: [address] [place] [address] Result Comment: <200 mg/dL, Desirable 200-239 mg/dL, Borderline high >239 mg/dL, High Performed By: #### 2 4331-1, 8, 2283-10 ####[facility] [id number] [address] [place] Cholesterol in HDL [Mass/Vol] 43 mg/dL Normal >39 [facility] Comment on above: Order Comment: Speci men Type: BLOOD SPECIMENOrdering Facility: [facility] Address: [address] [place] [address] Result Comment: 40-5 9 mg/dL, Acceptable >59 mg/dL, High: Negative risk factor for coronary heart disease <40 mg/dL, Low: Positive risk factor for coronary heart disease Performed By: #### 2 4331-1, 2730-10, 2283-10 ####[facility] [id number] [place] [id number] [place] Cholesterol in LDL [Mass/Vol] 68 mg/dL Normal <100 [facility] Comment on above: Order Comment: Speci men Type: BLOOD SPECIMENOrdering Facility: [facility] Address: [address] [place] [address] Result Comment: <100 mg/dL, Optimal 100-129 mg/dL, Near optimal/above optimal 130-159 mg/dL, Borderline high 160-189 mg/dL, High >189 mg/dL, Very high Secondary prevention optimal LDL Cholesterol levels are recommended to be < 70 mg/dL Performed By: #### 2 4331-1, 2730-10, 2283-10 ####[facility] [id number] [address] [address] [place] Cholesterol in LDL/Cholesterol in HDL [Mass ratio] 1.58 {ratio} Normal <2.54 [facility] Comment on above: Order Comment: Speci men Type: BLOOD SPECIMENOrdering Facility: [facility] Address: [address] [place] [address] Result Comment: Refe rence: 1. National Cholesterol Education Program ATP III Guideline At-A-Glance Quick Desk Reference: National Heart, Lung, and Blood Amory. National Institutes of Health. 2001: NIH Publication No. 01-3305. 2. An International Atherosclerosis Society position paper: global recommendations for the management of dyslipidemia: executive summary, Atherosclerosis. 2014: 232(2):410-413. Performed By: #### 2 4331-1, 2730-10, 2283-10 ####[facility] [id number] [address] [address] [place] Cholesterol in VLDL [Mass/Vol] 18 mg/dL Normal <30 [facility] Comment on above: Order Comment: Speci men Type: BLOOD SPECIMENOrdering Facility: [facility] Address: [address] [place] [address] Performed By: #### 2 4331-1, 2730-10, 2283-10 ####[facility] [id number] [address] [address] [place] Cholesterol non HDL [Mass/Vol] 86 mg/dL Normal <130 [facility] Comment on above: Order Comment: Speci men Type: BLOOD SPECIMENOrdering Facility: [facility] Address: [address] [place] [address] Result Comment: <130 mg/dL, Optimal 130-159 mg/dL, Near optimal/above optimal 160-189 mg/dL, Borderline high 190-219 mg/dL, High >219 mg/dL, Very high Secondary prevention optimal non HDL Cholesterol levels are recommended to be <100 mg/dL Performed By: #### 2 4331-1, 8, 2283-10 ####[facility]IA [id number] [place] [address] [place] Cholesterol.total/Ch olesterol in HDL [Mass ratio] 3.00 {ratio} Normal <5.10 [facility] Comment on above: Order Comment: Speci men Type: BLOOD SPECIMENOrdering Facility: [facility] Address: [address] [place] [address] Performed By: #### 2 4331-1, 2730-10, 2283-10 ####[facility] [id number] [place] [address] [place] FASTING TIME 11 hrs Normal [facility] Comment on above: Order Comment: Speci men Type: BLOOD SPECIMENOrdering Facility: [facility] Address: [address] [place] [address] Performed By: #### 2 4331-1, 2730-10, 2283-10 ####[facility] LABIA [id number] [place] [id number] [place] Triglyceride [Mass/Vol] 88 mg/dL Normal <150 [facility] Comment on above: Order Comment: Speci men Type: BLOOD SPECIMENOrdering Facility: [facility] Address: [address] [place] [address] Result Comment: <150 mg/dL, Normal 150-199 mg/dL, Borderline high 200-499 mg/dL, High >499 mg/dL, Very high Performed By: #### 2 4331-1, 2730-10, 2283-10 ####[facility] LABCLIA [id number] [place] [id number] [place] PTH-Intact SerPl-mCncon 10-13 Parathyrin.intact [Mass/Vol] 166 pg/mL High 15-65 [facility] Comment on above: Order Comment: Speci men Type: BLOOD SPECIMENOrdering Facility: [facility] Address: [address] [place] [address] [place] [address] Performed By: #### 2 4331-1, 273-8, 2283-10 ####[facility] LABIA [id number] [place] [id number] [place] CNOVon 10-14-2023 CNOV Office Visit (INTMWS ) LIZZY GANT ([id number]) 1965 F T Date Time Provider Department 10/14/23 1:20 PM SAM NULL INTMWS During your visit today, we recorded the following information about you: Temperature Pulse Respiration Blood pressure 97.1 degrees 90/minute 18/minute 116/68 Weight 115.8 kg Sam Null MD 10/14/2023 3:22 PM Signed This note was created using [employer] Rob[employer]. Subjective Lizzy Gant is a 58 year old female. She was evaluated by Dr. Herzog at [facility] and GERD, Hiatal hernia will be repaired at the time of gastric bypass due to refractory acid reflux. She started bariatric program. She just saw cardiology [employer] at [facility] and stress test was being considered for atypical chest pain. Edema was controlled with torsemide and aldactone. Dr. Byrnes her local GI had her on pantoprazole high dose, but she still took omeprazole from cardiology to control her symptoms. She also took dicyclomine and hyoscyamine for IBS, as well as colestipol for bile gastritis, and Creon for what I presume to be pancreatic insufficiency. She sees Marium Anderson CNP, [facility] for chronic dyspnea and asthma. She used her rescue inhaler twice a week. She sees Dr. Eduardo Morgan for [facility] for hypothyroidism. Review of Systems Constitutional: Positive for appetite change. Negative for fatigue, fever and unexpected weight change. Respiratory: Positive for shortness of breath. Negative for cough and wheezing. Cardiovascular: Positive for chest pain and leg swelling. Negative for palpitations. Gastrointestinal: Positive for abdominal pain. Negative for constipation, diarrhea, nausea and vomiting. Genitourinary: Negative for difficulty urinating and dyspareunia. Neurological: Negative. ACTIVE PROBLEM LIST Asthma Edema Veto On Cpap Gerd (Gastroesophageal Reflux Disease) Irritable Bowel Syndrome With Diarrhea Obesity, Class Iii, Bmi 40-49.9 (Morbid Obesity) (Hcc) Stage 3a Chronic Kidney Disease (Hcc) Atypical Chest Pain Bile-Induced Gastritis Colon Polyp Subclinical Hypothyroidism Eczema No Appetite Social History Tobacco Use Smoking status: Former Packs/day: 1.00 Years: 15.00 Additional pack years: 0.00 Total pack years: 15.00 Types: Cigarettes Quit date: 05/30/2009 Years since quittin.3 Smokeless tobacco: Never Tobacco comments: started age 16 Vaping Use Vaping Use: Never used Substance Use Topics Alcohol use: Not Currently Drug use: Never Current Outpatient Medications Medication Sig CREON 36,000-114,000- 180,000 unit delayed release capsule 1 capsule with meals and at bedtime. 2-3 capsules with meals and 1-2 with snacks hyoscyamine (LEVSIN) 0.125 mg tablet Take 0.125 mg by mouth every 6 hours as needed. 1-2 tablets four times daily as needed cholecalciferol, Vitamin D3, (VITAMIN D3) 1,250 mcg (50,000 unit) cap capsule Take 1 capsule by mouth one time a week for 12 doses. Transition to 4,000-5,000 units of Vitamin D [id number] after completing 12 weeks of high-dose therapy. diclofenac, EC, (VOLTAREN) 75 mg EC tablet take 1 tablet by mouth twice a day torsemide (DEMADEX) 20 mg tablet take 1 tablet by mouth twice a day (STOP FUROSEMIDE) levothyroxine (SYNTHROID) 100 mcg tablet Take 1 tablet by mouth once daily. Per [facility]. colestipol (COLESTID) 1 gram tablet Take 2 tablets by mouth two times a day. fluticasone (FLONASE) 50 mcg/actuation nasal spray instill [...] of hands, arms, legs for 1 week.). spironolactone (ALDACTONE) 25 mg tablet Take 1 tablet by mouth every afternoon. Per [facility] olopatadine (PATANOL) 0.1 % ophthalmic solution EYE ITCH RELIEF 0.025 % (0.035 %) ophthalmic solution instill 1 drop into both eyes twice a day if needed dicyclomine (BENTYL) 10 mg capsule 10 mg. nitroglycerin sublingual (NITROQUICK) 0.4 mg SL tablet [...] mask of choice, HUMIDITY. LIFETIME SUPPLIES. DME: [facility] albuterol HFA (PROAIR HFA) 90 mcg/actuation inhaler Inhale 2 Puffs as instructed every 4 hours as needed. pantoprazole DR (PROTONIX) 40 mg tablet Take 1 (more content not included)... Normal [facility] Esau 10-14-2023 FIDENCIO Telephone (ROQUEMTGloria) LIZZY GANT ([id number]) 1965 F T Date Time Provider Department 10/14/23 KAI LANG During your visit today, we recorded the following information about you: Kai Lang I, MD 10/14/2023 3:12 PM Signed Following patient of Dr. Mustafa. Nephrology nurses please call the patient and tell her to repeat blood work in 2 weeks as the kidney function is slightly worse than before. Please place her on waitlist/cancellation for an earlier appointment with nephrology. I will copy Dr. Rothman who is seeing the patient in February 2024. Lucille Peter LPN 10/14/2023 3:29 PM Signed Spoke with patient to relay the message from Dr. Lang. Patient saw that her labs were worse and will repeat the labs in [address] Lang's order. Patient was added to the wait list for a sooner appointment. Zofia Pepe 11/04/2023 12:43 PM Signed Patient is at [facility] lab to get labs. There are no orders for labs. Patient upset. Can these be put MERRY? She is going to wait at lab. Thanks. Kai Lang I, MD 11/04/2023 1:20 PM Signed This is a patient of Dr. Raffaele Mustafa who is no longer with [facility] nephrology. She has a follow-up appointment with Dr. Rothman in February 2024. Please notify patient that she had blood work done locally on 10/21/2023, which showed her creatinine was improved to 1.1. No need for repeat blood work at this time. Please try to get her an earlier follow-up appointment with Annette Mota in [place] nephrology. Kai Lang I, MD 11/04/2023 1:20 PM Signed Addended by: KAI LANG on: 11/04/2023 01:20 PM Modules accepted: Orders Lucille Peter LPN 11/04/2023 1:52 PM Signed Spoke with patient relayed the message from Dr. Lang, patient was aware of her lab levels but did not know this was something that was kidney related. Patient was told her creatinine is improved and Dr. Lang would like her to schedule a sooner appt with nephrology at [place]. Patient asked if she needs to have any labs done at this time and was updated Dr. Lang did not order any labs to be done now. Message forwarded to the [facility] clerical pool for assistance with scheduling. Allergies As of Date: 10/14/2023 Noted Allergy Reaction IV CONTRAST (IODINE) 04/14/2023 7 - Swelling SEASONAL ALLERGIES 04/08/2021 5 - Intolerance Date Reviewed: 10/14/2023 Reviewed by: Caryl Young LPN - Fully Assessed Reason for Visit: Results [95] Abnormal Kidney Tests [359] Prescriptions as of 11/07/2023 - CREON 36,000-114,000- 180,000 unit delayed release capsule 1 capsule with meals and at bedtime. 2-3 capsules with meals and 1-2 with snacks - hyoscyamine (LEVSIN) 0.125 mg tablet Take 0.125 mg by mouth every 6 hours as needed. 1-2 tablets four times daily as needed - albuterol HFA (PROAIR HFA) 90 mcg/actuation inhaler Inhale 2 Puffs as instructed every 4 hours as needed. - pantoprazole DR (PROTONIX) 40 mg tablet Take 1 tablet by mouth two times a day. Take on empty stomach, 1/2 hr before meal. - omeprazole (PRILOSEC) 40 mg capsule Take 1 capsule by mouth once daily. - cholecalciferol, Vitamin D3, (VITAMIN D3) 1,250 mcg (50,000 unit) cap capsule Take 1 capsule by mouth one time a week for 12 doses. Transition to 4,000-5,000 units of Vitamin D [id number]-nno-saumios after completing 12 weeks of high-dose therapy. - diclofenac, EC, (VOLTAREN) 75 mg EC tablet take 1 tablet by mouth twice a day - torsemide (DEMADEX) 20 mg tablet take 1 tablet by mouth twice a day (STOP FUROSEMIDE) - levothyroxine (SYNTHROID) 100 mcg tablet Take 1 tablet by mouth once daily. Per [facility]. - colestipol (COLESTID) 1 gram tablet Take 2 tablets by mouth two times a day. - fluticasone (FLONASE) 50 mcg/actuation nasal spray instill 2 sprays into each nostril once daily at bedtime - fluticasone (FLOVENT HFA) 220 mcg/actuation inhaler Inhale 1 Puff as instructed two times a day. Shake well before use. Rinse mouth after use. - hydrocortisone 2.5 % cream Apply 1 application to affected area two times a day as needed (Apply sparingly to rash of hands, arms, legs for 1 week.). - spironolactone (ALDACTONE) 25 mg tablet Take 1 tablet by mouth every afternoon. Per [facility] - olopatadine (PATANOL) 0.1 % ophthalmic solution - EYE ITCH RELIEF 0.025 % (0.035 %) ophthalmic solution instill 1 drop into both eyes twice a day if needed - dicyclomine (BENTYL) 10 mg capsule 10 mg. - nitroglycerin sublingual (NITROQUICK) 0.4 mg SL [...] CR capsule Take 1 capsule by mouth o (more content not included)... Normal [facility] 25(OH)D3 [facility] 2023 25-hydroxyvitamin D3 [Mass/Vol] 16.9 ng/mL Low 31.0-80.0 [facility] Comment on above: Order Comment: Speci men Type: BLOOD SPECIMENOrdering Facility: [facility] Address: [address] [place] [address] Result Comment: Clas sification of 25 [place] Vitamin D status: Deficiency/Insufficiency: < or = 30 ng/ml. Sufficiency/Optimal Levels: 31-80 ng/mL Toxicity: > 100 ng/mL. Test performed by chemiluminescent immunoassay. Performed By: #### 1 989-3 ####[facility] LABCLIA [id number] [place] [address] [place] Ferritin [facility] 2023 Ferritin [Mass/Vol] 55.7 ng/mL Normal 14.7-205.1 [facility] Comment on above: Order Comment: Speci men Type: BLOOD SPECIMENOrdering Facility: [facility] Address: [address] [place] [address] Performed By: #### 2 276-4, 90675-5, 84676-3, 3016-3 ####[facility] LABCLIA [id number] [place] [address] [place] Folate SerPl-Excela Healthon 10-07-19 24 Folate [Mass/Vol] 4.1 ng/mL Low >4.7 [facility] Comment on above: Order Comment: Speci men Type: BLOOD SPECIMENOrdering Facility: [facility] Address: [address] [place] [address] Performed By: #### 2 731-8, 2284-8, 2132-9 ####[facility] LABCLIA [id number] [place] [address] [place] Iron and Iron binding capaci [facility] 10-07-2023 Iron [Mass/Vol] 61 ug/dL Normal 41-186 [facility] Comment on above: Order Comment: Speci men Type: BLOOD SPECIMENOrdering Facility: [facility] Address: [address] [place] [address] Performed By: #### 2 276-4, 36376-7, 86711-5, 3016-3 ####[facility] LABCLIA [id number] [place] [address] [place] Iron binding capacity [Mass/Vol] 400 ug/dL High 232-386 [facility] Comment on above: Order Comment: Speci men Type: BLOOD SPECIMENOrdering Facility: [facility] Address: [address] [place] [address] Performed By: #### 2 276-4, 75869-3, 29946-4, 3016-3 ####[facility] LABCLIA [id number] [place] [address] [place] Iron/TIBC [Molar ratio] 15.3 % Normal 15.0-57.0 [facility] Comment on above: Order Comment: Speci men Type: BLOOD SPECIMENOrdering Facility: [facility] Address: [address] [place] [address] Performed By: #### 2 276-4, 15985-3, 64501-0, 3016-3 ####[facility] LABCLIA [id number] [place] [address] [place] NICOTINE AND METAB, URon URIN ANABASINE QUANT <5 Normal [facility] Comment on above: Order Comment: Speci men Type: BLOOD SPECIMEN [facility] Address: [address] [place] [address] Performed By: #### 5 8410-2 #### [facility] CLIA [id number] [address] [place] [address] [place] URIN COTININE QUANT <15 Normal [facility] Comment on above: Order Comment: Speci men Type: BLOOD SPECIMEN [facility] Address: [address] [place] [address] Performed By: #### 5 8410-2 #### [facility] CLIA [id number] [address] [place] [address] [place] URIN NICOTINE QUANT <15 Normal [facility] Comment on above: Order Comment: Speci men Type: BLOOD SPECIMEN [facility] Address: [address] [place] [address] Result Comment: INTE RPRETIVE INFORMATION: Nicotine and Metabolites, Urine, Quantitative Methodology: Quantitative Liquid Chromatography-Tandem Mass Spectrometry Positive cutoff: Nicotine 15 ng/mL Cotinine 15 ng/mL 5-CG-Jseevrag 50 ng/mL Anabasine 5 ng/mL For medical purposes only; not valid for forensic use. This test is designed to evaluate recent use of nicotine-containing products. Passive and active exposure cannot be discriminated definitively, although a cutoff of 100 ng/mL cotinine is frequently used for surgery qualification purposes. For smoking cessation programs or compliance testing, the absence of expected drug(s) and/or drug metabolite(s) may indicate non-compliance, inappropriate timing of specimen collection relative to drug administration, poor drug absorption, diluted/adulterated urine, or limitations of testing. The concentration value must be greater than or equal to the cutoff to be reported as positive. Anabasine is included as a biomarker of tobacco use, versus nicotine replacement. Interpretive questions should be directed to the laboratory. This test was developed and its performance characteristics determined by [facility]. It has not been cleared or approved by the [place] Food and Drug Administration. This test was performed in a CLIA certified laboratory and is intended for clinical purposes. Performed By: [facility] [address] [place] [address] Costumed Character Entertainer: Storm Wang MD, PhD CLIA Number: [id number] Performed By: #### 5 8410-2 #### [facility] CLIA [id number] [address] [place] [address] [place] URINE 3 [place] COTININE <50 Normal [facility] Comment on above: Order Comment: Speci men Type: BLOOD SPECIMEN [facility] Address: [address] [place] [address] Performed By: #### 5 8410-2 #### [facility] CLIA [id number] [address] [place] [address] [place] PTH-Intact SerPl-Excela Healthon 09-12 Parathyrin.intact [Mass/Vol] 288 pg/mL High 15-65 [facility] Comment on above: Order Comment: Speci men Type: BLOOD SPECIMENOrdering Facility: [facility] Address: [address] [place] [address] Performed By: #### 2 731-8, 2284-8, 2132-9 ####[facility] LABCLIA [id number] [place] [address] [place] Renal function 2000 panelon 10-07-2023 Albumin [Mass/Vol] 4.3 g/dL Normal 3.9-4.9 [facility] Comment on above: Order Comment: Speci men Type: BLOOD SPECIMENOrdering Facility: [facility] Address: [address] [place] [address] Performed By: #### 2 276-4, 56438-7, 78517-5, 3016-3 ####[facility] LABCLIA [id number] [place] [address] [place] Anion gap [Moles/Vol] 15 mmol/L Normal 8-15 [facility] Comment on above: Order Comment: Speci men Type: BLOOD SPECIMENOrdering Facility: [facility] Address: [address] [place] [address] Performed By: #### 2 276-4, 23404-8, 71077-7, 3016-3 ####[facility] LABCLIA [id number] [place] [address] [place] Calcium [Mass/Vol] 9.6 mg/dL Normal 8.5-10.2 [facility] Comment on above: Order Comment: Speci men Type: BLOOD SPECIMENOrdering Facility: [facility] Address: [address] [place] [address] Performed By: #### 2 276-4, 96449-7, 04075-6, 3016-3 ####[facility] LABCLIA [id number] [place] [address] [place] Chloride [Moles/Vol] 102 mmol/L Normal 98-107 [facility] Comment on above: Order Comment: Speci men Type: BLOOD SPECIMENOrdering Facility: [facility] Address: [address] [place] [address] Performed By: #### 2 276-4, 68825-9, 64851-1, 3016-3 ####[facility] LABCLIA [id number] [place] [id number] [place] CO2 [Moles/Vol] 24 mmol/L Normal 22-30 [facility] Comment on above: Order Comment: Speci men Type: BLOOD SPECIMENOrdering Facility: [facility] Address: [address] [place] [address] Performed By: #### 2 276-4, 90806-0, 57715-4, 3016-3 ####[facility] LABCLIA [id number] [place] [address] [place] Creatinine [Mass/Vol] 1.39 mg/dL High 0.58-0.96 [facility] Comment on above: Order Comment: Speci men Type: BLOOD SPECIMENOrdering Facility: [facility] Address: [address] [place] [address] Performed By: #### 2 276-4, 99271-1, 54575-3, 3016-3 ####[facility] LABCLIA [id number] [place] [address] [place] Creatinine and Glomerular filtration rate.predicted panel (S/P/Bld) 44 mL/min/1.73m??? Low >=60 [facility] Comment on above: Order Comment: Speci men Type: BLOOD SPECIMENOrdering Facility: [facility] Address: [address] [place] [address] Performed By: #### 2 276-4, 84266-7, 60129-9, 3016-3 ####[facility] LABCLIA [id number] [place] [address] [place] Glucose [Mass/Vol] 113 mg/dL High 74-99 [facility] Comment on above: Order Comment: Speci men Type: BLOOD SPECIMENOrdering Facility: [facility] Address: [address] [place] [address] Performed By: #### 2 276-4, 81600-6, 86879-0, 3016-3 ####[facility] LABCLIA [id number] [place] [address] [place] Phosphate [Mass/Vol] 2.9 mg/dL Normal 2.7-4.8 [facility] Comment on above: Order Comment: Speci men Type: BLOOD SPECIMENOrdering Facility: [facility] Address: [address] [place] [address] Performed By: #### 2 276-4, 06065-5, 96036-9, 3016-3 ####[facility] LABCLIA [id number] [place] [address] [place] Potassium [Moles/Vol] 4.9 mmol/L Normal 3.7-5.1 [facility] Comment on above: Order Comment: Speci men Type: BLOOD SPECIMENOrdering Facility: [facility] Address: [address] [place] [address] Performed By: #### 2 276-4, 63084-9, 92230-6, 3016-3 ####[facility] LABIA [id number] [place] [address] [place] Sodium [Moles/Vol] 141 mmol/L Normal 136-144 [facility] Comment on above: Order Comment: Speci men Type: BLOOD SPECIMENOrdering Facility: [facility] Address: [address] [place] [address] Performed By: #### 2 276-4, 09673-2, 76045-5, 3016-3 ####[facility] LABCLIA [id number] [place] [address] [place] Urea nitrogen [Mass/Vol] 22 mg/dL High 7-21 [facility] Comment on above: Order Comment: Speci men Type: BLOOD SPECIMENOrdering Facility: [facility] Address: [address] [place] [address] Performed By: #### 2 276-4, 79190-2, 13768-0, 3016-3 ####[facility] LABCLIA [id number] [place] [id number] [place] TOXICOLOGY SCREEN, ROUTINE U RINEon 10-07-2023 Amphetamines Confirm (U) [Mass/Vol] Negative Normal Negative [facility] Comment on above: Order Comment: Speci men Type: BLOOD SPECIMEN [facility] Address: [address] [place] [address] Result Comment: Cuto ff threshold at 1000 ng/mL. Performed By: #### 5 8410-2 #### [facility] CLIA [id number] [address] [place] [address] [place] BARBITURATES, URINE Negative Normal Negative [facility] Comment on above: Order Comment: Speci men Type: BLOOD SPECIMEN [facility] Address: [address] [place] [address] Result Comment: Cuto ff threshold at 200 ng/mL. Performed By: #### 5 8410-2 #### [facility] CLIA [id number] [address] [place] [address] [place] BENZODIAZEPINES, UR Negative Normal Negative [facility] Comment on above: Order Comment: Speci men Type: BLOOD SPECIMEN [facility] Address: [address] [place] [address] Result Comment: Cuto ff threshold at 200 ng/mL. Performed By: #### 5 8410-2 #### [facility] CLIA [id number] [address] [place] [address] [place] Cannabinoids Screen Ql (U) Negative Normal Negative [facility] Comment on above: Order Comment: Speci men Type: BLOOD SPECIMEN [facility] Address: [address] [place] [address] Result Comment: Cuto ff threshold at 50 ng/mL. Performed By: #### 5 8410-2 #### [facility] CLIA [id number] [address] [place] [address] [place] Cocaine Ql (U) Negative Normal Negative [facility] Comment on above: Order Comment: Speci men Type: BLOOD SPECIMEN [facility] Address: [address] [place] [address] Result Comment: Cuto ff threshold at 300 ng/mL. Performed By: #### 5 8410-2 #### [facility] CLIA [id number] [address] [place] [address] [place] Ethanol (U) [Mass/Vol] <11 Normal <11 [facility] Comment on above: Order Comment: Speci men Type: BLOOD SPECIMEN [facility] Address: [address] [place] [address] Performed By: #### 5 8410-2 #### [facility] CLIA [id number] [address] [place] [address] [place] Opiates Screen Ql (U) Negative Normal Negative [facility] Comment on above: Order Comment: Speci men Type: BLOOD SPECIMEN [facility] Address: [address] [place] [address] Result Comment: Cuto ff threshold at 300 ng/mL. Performed By: #### 5 8410-2 #### [facility] CLIA [id number] [address] [place] [address] [place] oxyCODONE cutoff Screen (U) [Mass/Vol] Negative Normal Negative [facility] Comment on above: Order Comment: Speci men Type: BLOOD SPECIMEN Ordering Facility: [facility] Address: [address] [place] [address] Result Comment: Cuto ff threshold at 100 ng/mL. Performed By: #### 5 8410-2 #### [facility] CLIA [id number] [address] [place] [address] [place] Phencyclidine Ql (U) Negative Normal Negative [facility] Comment on above: Order Comment: Speci men Type: BLOOD SPECIMEN Ordering Facility: [facility] Address: [address] [place] [address] Result Comment: Cuto ff threshold at 25 ng/mL. Performed By: #### 5 8410-2 #### [facility] CLIA [id number] [address] [place] [address] [place] TSH SerPl-aCncon 10-07-2023 TSH Qn 4.790 m[IU]/L High 0.270-4.200 [facility] Comment on above: Order Comment: Speci men Type: BLOOD SPECIMENOrdering Facility: [facility] Address: [address] [place] [address] Performed By: #### 2 276-4, 18519-0, 83421-7, 3016-3 ####[facility] [id number] [place] [address] [place] Urinalysis complete panel (U )on 10-07-2023 Bacteria LM.HPF (Urine sed) [#/Area] Negative Normal Negative [facility] Comment on above: Order Comment: Speci men Type: URINE SPECIMENOrdering Facility: [facility] Address: [address] [place] [address] Performed By: #### 2 4356-8 ####[facility] [id number] [place] [address] [place] Bilirubin Ql (U) Negative Normal Negative [facility] Comment on above: Order Comment: Speci men Type: URINE SPECIMENOrdering Facility: [facility] Address: [address] [place] [address] Performed By: #### 2 4356-8 ####[facility] [id number] [place] [address] [place] Clarity (Unsp spec) Clear Normal Clear [facility] Comment on above: Order Comment: Speci men Type: URINE SPECIMENOrdering Facility: [facility] Address: [address] [place] [address] Performed By: #### 2 4356-8 ####[facility] [id number] [place] [address] [place] Color (U) Yellow Normal Yellow [facility] Comment on above: Order Comment: Speci men Type: URINE SPECIMENOrdering Facility: [facility] Address: [address] [place] [address] Performed By: #### 2 4356-8 ####[facility] [id number] [place] [address] [place] Epithelial cells LM.HPF (Urine sed) [#/Area] None Seen Normal [facility] Comment on above: Order Comment: Speci men Type: URINE SPECIMENOrdering Facility: [facility] Address: [address] [place] [address] Performed By: #### 2 4356-8 ####[facility] [id number] [place] [address] [place] Glucose Test strip (U) [Mass/Vol] Negative Normal Negative [facility] Comment on above: Order Comment: Speci men Type: URINE SPECIMENOrdering Facility: [facility] Address: [address] [place] [address] Performed By: #### 2 4356-8 ####[facility] [id number] [place] [address] [place] Hemoglobin Ql (U) Negative Normal Negative [facility] Comment on above: Order Comment: Speci men Type: URINE SPECIMENOrdering Facility: [facility] Address: [address] [place] [address] Performed By: #### 2 4356-8 ####[facility] [id number] [place] [address] [place] Hyaline casts (Urine sed) [#/Area] 1-3 /LPF Abnormal 0 /LPF [facility] Comment on above: Order Comment: Speci men Type: URINE SPECIMENOrdering Facility: [facility] Address: [address] [place] [address] Performed By: #### 2 4356-8 ####[facility] [id number] [place] [address] [place] Ketones Ql (U) Negative Normal Negative [facility] Comment on above: Order Comment: Speci men Type: URINE SPECIMENOrdering Facility: [facility] Address: [address] [place] [address] Performed By: #### 2 4356-8 ####[facility] [id number] [place] [address] [place] Leukocyte esterase Test strip Ql (U) Trace Abnormal Negative [facility] Comment on above: Order Comment: Speci men Type: URINE SPECIMENOrdering Facility: [facility] Address: [address] [place] [address] Performed By: #### 2 4356-8 ####[facility] [id number] [place] [address] [place] Nitrite Ql (U) Negative Normal Negative [facility] Comment on above: Order Comment: Speci men Type: URINE SPECIMENOrdering Facility: [facility] Address: [address] [place] [address] Performed By: #### 2 4356-8 ####[facility]IA [id number] [place] [address] [place] pH (U) 5.5 [pH] Normal <8.5 [facility] Comment on above: Order Comment: Speci men Type: URINE SPECIMENOrdering Facility: [facility] Address: [address] [place], [place] [address] Performed By: #### 2 4356-8 ####[facility] [id number] [place] [address] [place] Protein (U) [Mass/Vol] Negative Normal Negative [facility] Comment on above: Order Comment: Speci men Type: URINE SPECIMENOrdering Facility: [facility] Address: [address] [place] [address] Performed By: #### 2 4356-8 ####[facility]IA [id number] [place] [address] [place] RBC LM.HPF (Urine sed) [#/Area] 0-2 /HPF Normal 0-2 /HPF [facility] Comment on above: Order Comment: Speci men Type: URINE SPECIMENOrdering Facility: [facility] Address: [address] [place] [address] Performed By: #### 2 4356-8 ####[facility]IA [id number] [place] [address] [place] Specific gravity (U) [Rel density] 1.012 Normal 1.005-1.030 [facility] Comment on above: Order Comment: Speci men Type: URINE SPECIMENOrdering Facility: [facility] Address: [address] [place] [address] Performed By: #### 2 4356-8 ####[facility]IA [id number] [place] [address] [place] Urobilinogen Ql (U) 0.2 EU/dL Normal 0.2-1.0 EU/dL [facility] Comment on above: Order Comment: Speci men Type: URINE SPECIMENOrdering Facility: [facility] Address: [address] [place] [address] Performed By: #### 2 4356-8 ####[facility]IA [id number] [place] [address] [place] WBC LM.HPF (Urine sed) [#/Area] 0-5 /HPF Normal 0-5 /HPF [facility] Comment on above: Order Comment: Speci men Type: URINE SPECIMENOrdering Facility: [facility] Address: [address] [place] [address] Performed By: #### 2 4356-8 ####[facility]IA [id number] [place] [address] [place] VITAMIN B1 (THIAMINE), WHOLE BLOODon 10-07-2023 Thiamine (Bld) [Moles/Vol] 154.2 nmol/L Normal 84.3-213.3 [facility] Comment on above: Order Comment: Speci men Type: BLOOD SPECIMENOrdering Facility: [facility] Address: [address] [place] [address] Result Comment: This assay measures the concentration of thiamine diphosphate (TDP), the primary active form of vitamin B1. Approximately 90 percent of vitamin B1 present in whole blood is TDP. Thiamine and thiamine monophosphate, which comprise the remaining 10 percent, are not measured. This test was developed and its performance characteristics determined by [facility] ([facility]). It has not been cleared or approved by the FDA. [facility] is regulated under CLIA as qualified to perform high-complexity testing. This test is used for clinical purposes. It should not be regarded as investigational or for research. Performed By: #### B 1WB ####[facility] [id number] [place] [address] [place] Vit A SerPl-mCncon Retinol [Mass/Vol] 0.73 mg/L Normal 0.30-1.20 [facility] Comment on above: Order Comment: Speci men Type: BLOOD SPECIMENOrdering Facility: [facility] Address: [address] [place] [address] Result Comment: Test performed at [facility] in [place], [place]. Disregard [facility] reference range. [facility] Vitamin A reference range is: 0.30-1.20 mg/L. This test was developed and its performance characteristics determined by [facility]. It has not been cleared or approved by the [place] Food and Drug Administration. This test was performed in a CLIA certified laboratory and is intended for clinical purposes. Performed By: #### 2 923-1 ####[facility] [id number] [place] [address] [place] Vit B12 SerPl-ncon 024 Cobalamin (Vitamin B12) [Mass/Vol] 472 pg/mL Normal 232-1245 [facility] Comment on above: Order Comment: Ron jimenez Type: BLOOD SPECIMENOrdering Facility: [facility] Address: [address] [place] [address] Performed By: #### 2 731-8, 2284-8, 2132-9 ####[facility] [id number] [place] [address] [place] Zinc SerPl-mCncon 10-07-2023 Zinc [Mass/Vol] 60 ug/dL Normal 60-120 [facility] Comment on above: Order Comment: Ron jimenez Type: BLOOD SPECIMEN Ordering Facility: [facility] Address: [address] [place] [address] Result Comment: This test was developed and its performance characteristics determined by [facility] [place] ([facility]). It has not been cleared or approved by the FDA. [facility] is regulated under CLIA as qualified to perform high-complexity testing. This test is used for clinical purposes. It should not be regarded as investigational or for research. Performed By: #### 5 8410-2 #### [facility] CLIA [id number] [address] [place] [address] [place] CNOVon 09-20-2023 CNOV Office Visit (RICH 4) LIZZY GANT ([id number]) 1965 F T Date Time Provider Department 09/20/23 11:00 AM GUNNER SUTTON4 During your visit today, we recorded the following information about you: Pulse Blood pressure Weight Height 63/minute 128/74 117 kg 1.588 m Gunner Sutton APRN.CNP 09/20/2023 12:41 PM Signed BARIATRIC SURGERY NEW PATIENT CONSULTATION HISTORY AND PHYSICAL Date: September 20, 2023 Name: Lizzy Gant CHIEF COMPLAINT: This is a 58 year old female with morbid obesity (Body mass index is 46.41 kg/m?.) who presents to clinic for consideration of bariatric surgery. HISTORY OF PRESENTING ILLNESS: Lizzy Gant presents today for consideration of bariatric surgery. She has suffered from weight problems for the majority of her lifespan and has numerous attempts at weight loss. This individual has lost weight through diet and exercise attempts, however ultimately regained this weight. Furthermore, she is pursuing RYGB with [facility] to treat severe GERD. She has been following up in the heartburn clinic with Dr. Herzog. PMH: She has struggled with severe GERD since childhood. She takes pantoprazole 40mg BID and omeprazole once daily. She still has breakthrough regurgitation. She also has a PEH and bile gastritis as well as IBS. She has Afib and takes Coreg and baby asa daily. 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 She has hyperlipidemia, taking Colestid. She has LE lymphedema, taking Torsemide and spironolactone. She has VETO and uses BiPAP nightly. 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 She has asthma, using inhalers as needed. She has chronic back and knee pain, and takes diclofenac as needed. She has CKD3 and follows up with nephrology at [facility]. She has hypothyroid, taking Synthroid daily. Social history: quit smoking in 2009, no relapse. She denies SHS, alcohol, MJ, and illicit drug use. Surgical history: cholecystectomy, right and left heart cath, EGD w/ biopsy and manometry HISTORY REVIEWED (electronic chart updated): - medical history - medications - allergies - social history PAST MEDICAL HISTORY Diagnosis Date Asthma 06/13/2008 Atypical chest pain 01/2019 heart cath normal Bile-induced gastritis 04/08/2021 Calcium deposits in tendon and bursa right knee Chronic cholecystitis 07/22/2020 Chronic midline low back pain without sciatica 07/31/2015 CKD stage 3a, GFR 45-59 ml/min ([facility]) Colon polyp 07/17/2020 Dermatophytosis of the body Edema 06/13/2008 GERD (gastroesophageal reflux disease) 07/29/2010 Hiatal hernia 07/17/2020 medium sized seen on EGD Infectious mononucleosis Irregular menstrual cycle Morbid obesity with BMI of 45.0-49.9, adult (HCC) Tobacco use disorder Unspecified hearing loss left ear - wears hearing aid Unspecified hypothyroidism PAST SURGICAL HISTORY Procedure Laterality Date 48 HOUR PH STUDY 07/21/2023 Dr. Herzog COLONOSCOPY SCREENING 07/17/2020 EGD WITH BIOPSY(S) 07/17/2020 medium sized hiatal hernia; Dr. Escalante EGD WITH BIOPSY(S) 07/21/2023 3 cm hiatal hernia; Dr. Herzog ESOPHAGEAL MANOMETRY 07/21/2023 Dr. Herzog LAPS SURG CHOLECYSTECTOMY W/CHOLANGIOGRAPHY 07/22/2020 [facility] LEFT HEART CATH,PERCUTANEOUS 01/23/2019 L AND R heart catheterization vamshi. FAMILY HISTORY Problem Relation Age of Onset Diabetes Maternal Grandmother Hypertension Brother Hypertension Sister Hypertension Mother Hypertension Father Seizures Sister Seizures Brother Cancer Father brain SOCIAL HISTORY: Social History Tobacco Use Smoking status: Former Packs/day: 1.00 Years: 15.00 Additional pack years: 0.00 Total pack years: 15.00 Types: Cigarettes Quit date: 05/30/2009 Years since quittin.3 Smokeless tobacco: Never Tobacco comments: started age 16 Vaping Use Vaping Use: Never used Substance Use Topics Alcohol use: Not Currently Drug use: Never MEDICATIONS: Prior to Admission Medications: diclofenac, EC, (VOLTAREN) 75 mg EC tablet take 1 tablet by mouth twice a day torsemide (DEMADEX) 20 mg tablet take 1 tablet by mouth twice a day (STOP FUROSEMIDE) OMEPRAZOLE, BULK, MISC 40 mg once daily. levothyroxine (SYNTHROID) 100 mcg tablet Take 1 tablet by mouth once daily. Per [facility]. colestipol (COLESTID) 1 gram tablet Take 2 tablets by mouth two times a day. albuterol HFA (PROAIR HFA) 90 mcg/actuation inhaler Inhale 2 Puffs as instructed every 4 hours as needed. fluticasone (FLONASE) 50 mcg/actuation nasal spray instill 2 sprays into each nostril once daily at bedtime fluticasone (FLOVENT HFA) 220 mcg/actuation inhaler Inhale 1 Puff as instructed two times a day. Shake well before use. Rinse mouth after use. hydrocortisone 2.5 % cream Apply 1 application to affected area two times a day as needed (Apply sparingly to rash of hands, arms, legs (more content not included)... Normal [facility] CNOVon 09-08-2023 CNOV Office Visit (AGGENS 4) LIZZY GANT ([id number]) 1965 F CHT Date Time Provider Department 09/08/23 10:00 AM MARY JO HERZOG AGGENS4 During your visit today, we recorded the following information about you: Pulse Blood pressure Weight Height 63/minute 129/77 117.5 kg 1.575 m Mary Jo Herzog MD 09/08/2023 10:51 AM Signed SURGICAL SERVICES HISTORY AND PHYSICAL EXAMINATION SERVICE DATE: 09/08/2023 SERVICE TIME: 10:31 AM PRIMARY CARE PHYSICIAN: Sam Null MD SUBJECTIVE CHIEF COMPLAINT: reflux HISTORY OF PRESENT ILLNESS: Ms. Gant is a 58 year old female with a PMH of asthma (inhalers; Flonase), atrial fibrillation (Coreg, ASA), atypical chest pain, bile gastritis, chronic back pain/arthritis, CKD stage 3, obesity (BMI 45.92--> 47.37; weight stable at 259 pounds), hypothyroidism (synthroid), history of tobacco use, IBS, hiatal hernia and GERD who presents for follow up after testing. Today she reports no overall changes in her health or medications since her last visit aside from her other physicians transitioning her from Lasix to Torsemide. Workup: - EGD (07/21/23;Danny): 3 cm paraesophageal hernia; HG 4 GEJ - Pathology: WNL - KIRK: [place] 15 with SAP 100 for heartburn and regurg - Mano: No chicago classification abnormalities - EGD (Cebul; 5/6/21): medium-sized hiatal hernia; gastritis of the antrum - UGI (03/22/23): normal GEJ without hernia - GES (12/30/22): normal gastric emptying time - CT abd/pelvis (04/07/23): no acute abnormality Per my last clinic note: reports a long history of reflux symptoms - since she was a child. She has taken medication for reflux as long as she can recall. At the age of 16 she began to take prescription medications. Since 1987 she has worked on maintaining weight. Her BMI is 45.92 today and her weight is 259 pounds. The lowest weight she can recall was 200 pounds. She endorses symptoms of belching, burping, sour taste in her mouth, regurgitation of food and acid. Symptoms occur during the day and are nocturnal as well. She endorses intermittent difficulty swallowing - this occurs several times per week. She takes Protonix 40 mg BID and Omeprazole 40 mg once daily. She states that if she does not take these medications she experiences severe GERD symptoms. Social: former smoker - quit in 2009 without recidivism; denies use of etoh or illicit drugs; on disability due to joint pain and arthritis. PSHx: Lap CCx, left and right heart cath PAST MEDICAL HISTORY: PAST MEDICAL HISTORY Diagnosis Date Asthma 06/13/2008 Atypical chest pain 01/2019 heart cath normal Bile-induced gastritis 04/08/2021 Calcium deposits in tendon and bursa right knee Chronic cholecystitis 07/22/2020 Chronic midline low back pain without sciatica 07/31/2015 CKD stage 3a, GFR 45-59 ml/min ([facility]) Colon polyp 07/17/2020 Dermatophytosis of the body Edema 06/13/2008 GERD (gastroesophageal reflux disease) 07/29/2010 Hiatal hernia 07/17/2020 medium sized seen on EGD Infectious mononucleosis Irregular menstrual cycle Morbid obesity with BMI of 45.0-49.9, adult ([facility]) Tobacco use disorder Unspecified hearing loss left ear - wears hearing aid Unspecified hypothyroidism PAST SURGICAL HISTORY: PAST SURGICAL HISTORY Procedure Laterality Date 48 HOUR PH STUDY 07/21/2023 Dr. Herzog COLONOSCOPY SCREENING 07/17/2020 EGD WITH BIOPSY(S) 07/17/2020 medium sized hiatal hernia; Dr. Escalante EGD WITH BIOPSY(S) 07/21/2023 3 cm hiatal hernia; Dr. Herzog ESOPHAGEAL MANOMETRY 07/21/2023 Dr. Herzog [facility] SURG CHOLECYSTECTOMY W/CHOLANGIOGRAPHY 07/22/2020 [facility] LEFT [...] Types: Cigarettes Quit date: 05/30/2009 Years since quittin.2 Smokeless tobacco: Never Tobacco comments: started age 16 Vaping Use Vaping Use: Never used Substance Use Topics Alcohol use: Not Currently Drug use: Never MEDICATIONS: Current Outpatient Medications Medication Sig torsemide (DEMADEX) 20 mg tablet take 1 tablet by mouth twice a day (STOP FUROSEMIDE) OMEPRAZOLE, BULK, MISC 40 mg once daily. levothyroxine (SYNTHROID) 100 mcg tablet Take 1 tablet by mouth once daily. Per [facility]. colestipol (COLESTID) 1 gram tablet Take 2 tablets by mouth two times a day. albuterol HFA (PROAIR HFA) 90 mcg/actuation inhaler Inhale 2 Puffs as instructed every 4 hours as needed. fl (more content not included)... [facility] 09-08-2023 [facility] Telephone (AGGENS4) LIZZY GANT ([id number]) 1965 F T Date Time Provider Department 09/08/23 SOFÍA MULTANIENS4 During your visit today, we recorded the following information about you: Jorge Luis Schrader 09/08/2023 4:09 PM Signed Insurance Verification Insurance Company: [employer] Provider Phone #: [phone] Agent: Kait Effective Date: 04/14/22 Call Reference #: [id number] Months of Wt Loss: 6 Consecutive: 6 Months of Weight History:6 Obesity Medicine Coverage: yes COVERAGE: RNY-yes SLEEVE-yes BYPASS-yes REQUIREMENTS: Pulmonary Clearance: yes Cardiac Clearance: yes Nicotine Testing: yes Drug Testing: yes TSH Testing: yes If Female patient, is test required: In Network %-[address] [facility]: Green Provider: Danny Allergies As of Date: 09/08/2023 Noted Allergy Reaction IV CONTRAST (IODINE) 04/14/2023 7 - Swelling SEASONAL ALLERGIES 04/08/2021 5 - Intolerance Date Reviewed: 09/08/2023 Reviewed by: Mary Jo Herzog MD - Fully Assessed Reason for Visit: Patient Update [1234] Cmt: Bariatric Benefits Investigation Prescriptions as of 09/08/2023 - diclofenac, EC, (VOLTAREN) 75 mg EC tablet take 1 tablet by mouth twice a day - torsemide (DEMADEX) 20 mg tablet take 1 tablet by mouth twice a day (STOP FUROSEMIDE) - OMEPRAZOLE, BULK, MISC 40 mg once daily. - levothyroxine (SYNTHROID) 100 mcg tablet Take 1 tablet by mouth once daily. Per [facility]. - colestipol (COLESTID) 1 gram tablet Take 2 tablets by mouth two times a day. - albuterol HFA (PROAIR HFA) 90 mcg/actuation inhaler Inhale 2 Puffs as instructed every 4 hours as needed. - fluticasone (FLONASE) 50 mcg/actuation nasal spray instill 2 sprays into each nostril once daily at bedtime - fluticasone (FLOVENT HFA) 220 mcg/actuation inhaler Inhale 1 Puff as instructed two times a day. Shake well before use. Rinse mouth after use. - hydrocortisone 2.5 % cream Apply 1 application to affected area two times a day as needed (Apply sparingly to rash of hands, arms, legs for 1 week.). - furosemide (LASIX) 40 mg tablet Take 1 tablet by mouth two times a day. Per [facility] - spironolactone (ALDACTONE) 25 mg tablet Take 1 tablet by mouth every afternoon. Per [facility] - traMADol (ULTRAM) 50 mg tablet Take 1 tablet by mouth every 6 hours as needed for pain. - olopatadine (PATANOL) 0.1 % ophthalmic solution - EYE ITCH RELIEF 0.025 % (0.035 %) ophthalmic solution instill 1 drop into both eyes twice a day if needed - dicyclomine (BENTYL) 10 mg capsule 10 mg. - pantoprazole DR (PROTONIX) 40 mg tablet Take 1 tablet by mouth twice daily. Take on empty stomach, 1/2 hr before meal. - nitroglycerin sublingual (NITROQUICK) 0.4 mg SL [...] mask of choice, [employer]ITY. LIFETIME SUPPLIES. DME: [facility] Problem List As Of Date 09/08/2023 Noted Resolved Complete spontaneous without mention o*01/01/2005 [...] Obesity, Class III, BMI 40-49.9 (morbid obesity*07/27/2017 Stage 3a chronic kidney disease (HCC) [N18.31] 04/08/2021 Dermatophytosis of nail [B35.1] 04/08/2021 10/08/2021 Atypical chest pain [R07.89] 04/08/2021 Bile-induced gastritis [K29.60] 04/08/2021 Colon polyp [K63.5] 07/17/2020 Subclinical hypothyroidism [E03.8] 11/29/2022 Right renal atrophy [N26.1] 01/27/2023 Eczema [L30.9] 07/15/2023 No appetite [R63.0] 07/15/2023 Encounter Status:Closed by JORGE LUIS SCHRADER on 09/08/23 Normal [facility] CNOVon 08-24-2023 CNOV Office Visit (KMMBHT ) LIZZY GANT ([id number]) 1965 F T Date Time Provider Department 08/24/23 11:40 AM RAFFAELE MUSTAFA [facility] During your visit today, we recorded the following information about you: Weight Height 116.9 kg 1.588 m Raffaele Mustafa MD 08/24/2023 1:12 PM Signed [facility] NE[facility] HYPERTENSION [facility] SERVICE DATE: 08/24/2023 SERVICE TIME: 1:07 PM CHIEF COMPLAINT: Swelling HPI: Ms. Gant is a 58 year old female with bilateral carpal tunnel, obesity, GERD who presents for chronic kidney disease. Last seen 04/2023. Her Creatinine remains stable in the 1.0-1.3 range since our last visit and she has no significant proteinuria. At our last visit, we discussed trying to stop her PPI, but patient didn't think this would be possible based on her GI symptoms. We also discussed reducing lasix to 1x/day because of low PO intake. She continues to be concerned about swelling. Says if she is off of diuretics she gets short of breath. 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 She has now been placed on Torsemide for her diuretic. Taking 20mg twice a day. She is also being evaluated for bariatric surgery. Chronic Kidney Disease Duration (when): unclear Location (where): kidneys Severity [...] Colon Polyp Subclinical Hypothyroidism Right Renal Atrophy Eczema No Appetite MEDICATIONS: torsemide (DEMADEX) 20 mg tablet take 1 tablet by mouth twice a day (STOP FUROSEMIDE) diclofenac, EC, (VOLTAREN) 75 mg EC tablet take 1 tablet by mouth twice a day OMEPRAZOLE, BULK, MISC 40 mg once daily. levothyroxine (SYNTHROID) 100 mcg tablet Take 1 tablet by mouth once daily. Per [facility]. colestipol (COLESTID) 1 gram tablet Take 2 tablets by mouth two times a day. fluticasone (FLONASE) 50 mcg/actuation nasal spray instill [...] of hands, arms, legs for 1 week.). furosemide (LASIX) 40 mg tablet Take 1 tablet by mouth two times a day. Per [facility] spironolactone (ALDACTONE) 25 mg tablet Take 1 tablet by mouth every afternoon. Per [facility] traMADol (ULTRAM) 50 mg tablet Take 1 [...] on empty stomach, 1/2 hr before meal. nitroglycerin sublingual (NITROQUICK) 0.4 mg SL tablet [...] mask of choice, HUMIDITY. LIFETIME SUPPLIES. DME: [facility] albuterol HFA (PROAIR HFA) 90 mcg/actuation inhaler Inhale 2 Puffs as instructed every 4 hours as needed. ALLERGIES: ALLERGIES Allergen Reactions Iv Contrast [Iodine] Swelling Seasonal Allergies Intolerance REVIEW OF SYSTEMS: Constitutional: No complaints Cardiovascular: swelling, SOB Genitourinary: No complaints PHYSICAL EXAM: Ht 158.8 cm (5' 2.52 ) Wt 116.9 kg (257 lb 11.5 oz) LMP (LMP Unknown) BMI 46.36 kg/m? BP - standardized method Pulse 1 BP #1: 123/79 Pulse #1: 64 beats/min 2 BP #2 : 110/75 Pulse #2 : 63 beats/min 3 BP #3 : 108/71 Pulse #3 : 63 beats/min Average Average BP: 114/75 Average Pulse: 63 beats/min Orthostatic vitals Supine Sitting Standing BP cuff location BP cuff size Comments for BP values F (more content not included)... Normal [facility] UA DIP, URINE (POC)on 2023 BILIRUBIN UA (POCT) Negative Negative [facility] CLARITY UA (POCT) Clear [facility] COLOR UA (POCT) Yellow [facility] GLUCOSE UA (POCT) Negative Negative mg/dL [facility] Hemoglobin Ql (U) Negative Negative [facility] Interpretation and review of laboratory results Abnormal [facility] KETONE UA (POCT) Negative Negative mg/dL [facility] LEUKOCYTES UA (POCT) Trace Abnormal Negative [facility] NITRITE UA (POCT) Negative Negative [facility] PH UA (POCT) 5.5 4.5 - 8.0 [facility] Protein Ql (U) Negative Negative mg/dL [facility] SPECIFIC GRAVITY UA (POCT) 1.015 1.005 - 1.030 [facility] UROBILINOGEN UA (POCT) 0.2 Normal E.U./dL [facility] Location:[facility], [address] , [place], [address] [facility] POINT OF CARE [facility] CNPNon 07-26-2023 CNPN Telephone (MEMPME) TARIQLIZZY Linares ([id number]) 1965 F T Date Time Provider Department 07/26/23 RAFFAELE MUSTAFA During your visit today, we recorded the following information about you: Alana Mendoza 07/26/2023 4:26 PM Signed Lizzy is calling Raffaele Mustafa MD today to request No chief complaint on file. Patient has been identified by name and birthdate. Lizzy calling to discuss the labs that Dr Mustafa ordered on July 12. She doesn't understand the results, would like someone to go over them with her.. she would also like to know when the doctor wants her to repeat them? Duration of symptoms: N/A Person calling: self Call patient at: on cell [phone] (home) [phone] (cell) Was an appointment scheduled: No Closing statement: Symptom Call: Thank you for calling [facility], your call is very important. A nurse will call in approximately 2-4 hours during business hours. If this is an emergency, please contact 911. Kera Schwartz MA 07/26/2023 4:[address] Mustafa, See message below and advise. Kera Lovett MA Lizzie Wolf 08/11/2023 3:45 PM Signed Patient called on 08/11/23 to request a return call to discuss her lab results. Patient states orders were placed by Dr. Mustafa. PSS sees results from [facility] in her chart, but no Dr. Mustafa order results. There seems to be some confusion about internal and external lab results. Please call patient back at [phone]. Jacquelyn Nicolas MA 08/11/2023 5:[address] Mustafa, Please review and advise on Pt's message below. Thank you! Jacquelyn Nicolas MA Allergies As of Date: 07/26/2023 Noted Allergy Reaction IV CONTRAST (IODINE) 04/14/2023 7 - Swelling SEASONAL ALLERGIES 04/08/2021 5 - Intolerance Date Reviewed: 07/21/2023 Reviewed by: Юлия Canales RN - Fully Assessed Reason for Visit: Results [95] Prescriptions as of 09/20/2023 - diclofenac, EC, (VOLTAREN) 75 mg EC tablet take 1 tablet by mouth twice a day - torsemide (DEMADEX) 20 mg tablet take 1 tablet by mouth twice a day (STOP FUROSEMIDE) - OMEPRAZOLE, BULK, MISC 40 mg once daily. - levothyroxine (SYNTHROID) 100 mcg tablet Take 1 tablet by mouth once daily. Per [facility]. - colestipol (COLESTID) 1 gram tablet Take 2 tablets by mouth two times a day. - albuterol HFA (PROAIR HFA) 90 mcg/actuation inhaler Inhale 2 Puffs as instructed every 4 hours as needed. - fluticasone (FLONASE) 50 mcg/actuation nasal spray instill 2 sprays into each nostril once daily at bedtime - fluticasone (FLOVENT HFA) 220 mcg/actuation inhaler Inhale 1 Puff as instructed two times a day. Shake well before use. Rinse mouth after use. - hydrocortisone 2.5 % cream Apply 1 application to affected area two times a day as needed (Apply sparingly to rash of hands, arms, legs for 1 week.). - furosemide (LASIX) 40 mg tablet Take 1 tablet by mouth two times a day. Per [facility] - spironolactone (ALDACTONE) 25 mg tablet Take 1 tablet by mouth every afternoon. Per [facility] - traMADol (ULTRAM) 50 mg tablet Take 1 tablet by mouth every 6 hours as needed for pain. - olopatadine (PATANOL) 0.1 % ophthalmic solution - EYE ITCH RELIEF 0.025 % (0.035 %) ophthalmic solution instill 1 drop into both eyes twice a day if needed - dicyclomine (BENTYL) 10 mg capsule 10 mg. - pantoprazole DR (PROTONIX) 40 mg tablet Take 1 tablet by mouth twice daily. Take on empty stomach, 1/2 hr before meal. - nitroglycerin sublingual (NITROQUICK) 0.4 mg SL [...] mask of choice, HUMIDITY. LIFETIME SUPPLIES. DME: [facility] Problem List As Of Date 07/26/2023 Noted Resolved Complete spontaneous without mention o*01/01/2005 [...] Obesity, Class III, BMI 40-49.9 (morbid obesity*07/27/2017 Stage 3a chronic kidney disease (HCC) [N18.31] 04/08/2021 Dermatophytosis of nail [B35.1] 04/08/2021 (more content not included)... Normal [facility] ANES POSTPROC EVALon 024 ANES POSTPROC EVAL HNO ID: [id number] Author: JOSE M ROWLAND MD Service: Anesthesiology Author Type: Physician Type: Anesthesia Postprocedure Evaluation Filed: 07/22/2023 08:39 Note Text: POST ANESTHESIA EVALUATION NOTE : 1965 Procedure Summary Date: 07/21/23 Room / Location: [facility] Anesthesia Start: 1319 Anesthesia Stop: 1346 Procedure: EGD - THERAPEUTIC, EUS, OR TUBE INTERVENTIONS Diagnosis: Gastroesophageal reflux disease, unspecified whether esophagitis present (Heartburn) Scheduled Providers: Mary Jo Herzog MD Responsible Provider: Jose M Rowland MD Anesthesia Type: MAC ASA Status: 3 Anesthesia Type: MAC Last Vitals Vitals Value Taken Time BP 107/63 07/21/23 1402 Temp 36.3 ?C (97.4 ?F) 07/21/23 1345 HR SpO2 72 07/21/23 1402 Resp 16 07/21/23 1402 SpO2 99 % 07/21/23 1402 Post Anesthesia Patient Status Patient Evaluation: PACU. PACU/ICU Patient Condition: stable. Neurological Status: aware and responsive. Pulmonary Status: breathing comfortably on room air Airway Control: returned to baseline unsupported. Cardiovascular Status: stable. Pain Management: clinically adequate Postoperative Hydration: acceptable. Intraoperative Events: no significant anesthesia events Post Operative Nausea/Vomiting Status: no significant post operative nausea or vomiting Recommendation: continue current plan of care. Anesthesia Observations No Documentation SIGNATURE: Jose M Rowland MD PATIENT NAME: Lizzy Gant DATE: July 22, 2023 TIME: 8:39 AM CSN: [id number] [facility] ANES PRE-OPon 07-21-2023 ANES PRE-OP HNO ID: [id number] Author: JOSE M ROWLAND MD Service: Anesthesiology Author Type: Physician Type: Anesthesia Preprocedure Evaluation Filed: 07/21/2023 12:50 Note Text: ANESTHESIOLOGY DAY OF SURGERY NOTE : 1965 Procedure Information Date/Time: 07/21/23 1300 Scheduled providers: Mary Jo Herzog MD Procedure: EGD - THERAPEUTIC, EUS, OR TUBE INTERVENTIONS Location: [facility] Estimated body mass index is 45.53 kg/m? as calculated from the following: Height as of 07/06/23: 160 cm (5' 3 ). Weight as of 07/15/23: 116.6 kg (257 lb). Most recent hematocrit and potassium results: Hematocrit 43.6 07/13/2023 Potassium 4.3 07/13/2023 Relevant Problems ANESTHESIA (+) VETO on CPAP ENDO (+) Subclinical hypothyroidism GI (+) GERD (gastroesophageal reflux disease) -RENAL (+) Right renal atrophy (+) Stage 3a chronic kidney disease (HCC) PULMONARY (+) Asthma (+) VETO on CPAP I - PHYSICAL EVALUATION AIRWAY Patient intubated: No. Tracheostomy tube not present Mallampati: II. TM distance: >3 FB. Neck ROM: full ROM without neurological symptoms. Mouth opening: adequate. Short neck: no. Thick neck: yes Additional exam findings: yes. CARDIOVASCULAR Rhythm: regular Rate: normal PULMONARY Breath sounds clear to auscultation. II - ANESTHESIA PLAN ASA Score: 3 Anesthetic Plan: MAC NPO Status: adequate Beta Catarina Monitoring Plan Monitoring plan: standard ASA. Post Procedure Analgesic Plan Postoperative analgesic plan: multimodal analgesia. Informed Consent Anesthetic risks, benefits, alternatives, personnel and consent discussed: yes. Patient / Responsible Green Party agrees to proceed: yes Patient / Surrogate agrees to blood products: blood products not planned Vitals Value Taken Time BP 114/95 07/21/23 1201 Pulse 70 07/21/23 1201 Resp 19 07/21/23 1201 Temp 36.3 ?C (97.3 ?F) 07/21/23 1201 SpO2 98 % 07/21/23 1201 Facility-Administered Medications as of 07/21/2023 Medication Dose Route Frequency lidocaine 10 mg/mL (1 %) 1-2 mg injection (XYLOCAINE) 0.1-0.2 mL INTRADERMAL PRN lactated ringers iv infusion 30 mL/hr INTRAVENOUS CONTINUOUS Outpatient Medications as of 07/21/2023 Medication Sig levothyroxine (SYNTHROID) 100 mcg tablet Take 1 tablet by mouth once daily. Per [facility]. colestipol (COLESTID) 1 gram tablet Take 2 tablets by mouth two times a day. albuterol HFA (PROAIR HFA) 90 mcg/actuation inhaler Inhale 2 Puffs as instructed every 4 hours as needed. fluticasone (FLONASE) 50 mcg/actuation nasal spray instill 2 sprays into each nostril once daily at bedtime furosemide (LASIX) 40 mg tablet Take 1 tablet by mouth two times a day. Per [facility] spironolactone (ALDACTONE) 25 mg tablet Take 1 tablet by mouth every afternoon. Per [facility] olopatadine (PATANOL) 0.1 % ophthalmic solution dicyclomine (BENTYL) 10 mg capsule 10 mg. aspirin, enteric coated (ASPIRIN, ENTERIC COATED) 81 mg EC tablet Take 1 tablet by mouth once daily. atorvastatin (LIPITOR) 20 mg tablet Take 20 mg by mouth once daily. carvedilol (COREG) 3.125 mg tablet Take 1 tablet by mouth once daily. fluticasone (FLOVENT HFA) 220 mcg/actuation inhaler Inhale 1 Puff as instructed two times a day. Shake well before use. Rinse mouth after use. hydrocortisone 2.5 % cream Apply 1 application to affected area two times a day as needed (Apply sparingly to rash of hands, arms, legs for 1 week.). traMADol (ULTRAM) 50 mg tablet Take 1 tablet by mouth every 6 hours as needed for pain. EYE ITCH RELIEF 0.025 % (0.035 %) ophthalmic solution instill 1 drop into both eyes twice a day if needed pantoprazole DR (PROTONIX) 40 mg tablet Take 1 tablet by mouth twice daily. Take on empty stomach, 1/2 hr before meal. nitroglycerin sublingual (NITROQUICK) 0.4 mg SL tablet 0.4 mg. potassium chloride SR (MICRO-K) 10 mEq CR capsule Take 1 capsule by mouth once daily. CPAP AutoPAP 5-15 CM H2O with flex/EPR option, ramp, mask of choice, HUMIDITY. LIFETIME SUPPLIES. DME: [facility] I have interviewed and examined the patient. I have reviewed the medical record and/or the pre-anesthesia evaluation, pertinent labs, and test results. This contains updated information obtained within 48 hours of Surgery/Procedure. SIGNATURE: Jose M Rowland MD PATIENT NAME: Lizzy Gant DATE: July 21, 2023 TIME: 12:50 PM CSN: [id number] Normal [facility] EGD Study observation Shira anaya 07-21-2023 [facility] Gastrointestinal Endoscopy Patient Name: Lizzy Gant Procedure Date: 07/21/2023 1:19 PM Date of : 1965 Admit Type: Outpatient Room: [place] [address] Gender: Female Note Status: Finalized Attending MD: Mary Jo Herzog MD, [id number] Procedure: Upper GI endoscopy Indications: Heartburn Providers: Mary Jo Herzog MD Patient Profile: Refer to note in patient chart for documentation of history and physical. Patient has symptoms of chronic heartburn. Body Mass Index: 45. Referring Physician: Mary Jo Herzog MD (Referring MD) Medicines: Monitored Anesthesia Care Complications: No immediate complications. Procedure: Pre-Anesthesia Assessment: - Prior to the procedure, a History and Physical was performed, and patient medications and allergies were reviewed. The patient's tolerance of previous anesthesia was also reviewed. The risks and benefits of the procedure and the sedation options and risks were discussed with the patient. All questions were answered, and informed consent was obtained. Prior Anticoagulants: The patient has taken no anticoagulant or antiplatelet agents except for aspirin. ASA Grade Assessment: III - A patient with severe systemic disease. After reviewing the risks and benefits, the patient was deemed in satisfactory condition to undergo the procedure. After obtaining informed consent, the endoscope was passed under direct vision. Throughout the procedure, the patient's blood pressure, pulse, and oxygen saturations were monitored continuously. The Endoscope was introduced through the mouth, and advanced to the third part of duodenum. I was present and participated during the entire procedure, including non-colin portions, and during the administration and monitoring of Moderate Sedation. The upper GI endoscopy was accomplished without difficulty. The patient tolerated the procedure well. Moderate Sedation: Exam was performed under monitored anesthesia care (MAC) Findings: The gastroesophageal flap valve was visualized endoscopically and classified as Hill Grade IV (no fold, wide open lumen, hiatal hernia present). The KIRK capsule with delivery system was introduced through the mouth and advanced into the esophagus, such that the KIRK pH capsule was positioned 27 cm from the incisors, which was 6 cm proximal to the GE junction. The KIRK pH capsule was then deployed and attached to the esophageal mucosa. The delivery system was then withdrawn. Endoscopy was utilized for probe placement and diagnostic evaluation. A 3 cm hiatal hernia was present. Biopsies were taken with a cold forceps for Helicobacter pylori testing. The ampulla, duodenal bulb, first portion of the duodenum, second portion of the duodenum and third portion of the duodenum were normal. Estimated Blood Loss: Estimated blood loss: none. Impression: - Gastroesophageal flap valve classified as Hill Grade IV (no fold, wide open lumen, hiatal hernia present). - 3 cm hiatal hernia. Biopsied the gastric antrum. - Normal ampulla, duodenal bulb, first portion of the duodenum, second portion of the duodenum and third portion of the duodenum. - The KIRK pH capsule was deployed. Recommendation: - Await pathology results. - Continue present medications. - Resume previous diet. - Return to my office as previously scheduled. - Discharge patient to home (ambulatory). - The patient is not currently taking anticoagulant or antiplatelet agents except for aspirin. Procedure Code(s): --- Professional --- 58263, Esophagogastroduodenos copy, flexible, transoral; with biopsy, single or multiple (more content not included)... PROVATION [facility] Radiology Study observation (narrative) [facility] NURSING PROGon 07-21-2023 NURSING PROG HNO ID: [id number] Author: ЮЛИЯ CANALES RN Service: Nursing Author Type: Registered Nurse Type: Nursing Progress Note Filed: 07/21/2023 13:16 Note Text: The patient was brought into the procedure room and a time out was done. After confirmation of potential allergies, a topical analgesic was used to numb the left nares followed by the trans-nasal insertion of a High Resolution Manometry catheter. Pressure bands of the UES and LES were observed on the color contour. The patient was instructed to take a deep breath to verify placement of catheter, diaphragmatic pinch noted on inspiration. The patient was assisted to left lateral position and the catheter stabilized. The patient was encouraged to relax while acclimating to the catheter for approximately 5 minutes. A 30 second baseline pressure was obtained to identify the UES and LES followed by a series of ten wet swallows, using 5mL of room temperature normal saline to assess esophageal motility. At the conclusion of the procedure the catheter was removed. The patient tolerated the procedure well. No heme noted when catheter removed. Normal [facility] SURGICAL PATHOLOGYon 024 CASE REPORT Normal [facility] Comment on above: Order Comment: Speci barbara Type: TISSUE SPECIMENOrdering Facility: [facility] Address: [address] [place] [address] Result Comment: Surg [facility] Pathology Report Case: [id number] Authorizing Provider: Mary Jo Herzog MD Collected: 07/21/2023 01:37 PM Ordering Location: [facility] Received: 07/21/2023 02:37 PM Pathologist: Gray Grant MD Specimen: Stomach, Biopsy Performed By: #### S ####[facility] LABORATORYCLIA [id number] [address] CLINICAL HISTORY Heartburn Normal [facility] Comment on above: Order Comment: Speci men Type: TISSUE SPECIMENOrdering Facility: [facility] Address: [address] [place] [address] Performed By: #### S ####[facility]ATORYCLIA [id number] [address] FINAL DIAGNOSIS Normal [facility] Comment on above: Order Comment: Specshashi jimenez Type: TISSUE SPECIMENOrdering Facility: [facility] Address: [address] [place] [address] Result Comment: Claudia salamanca, biopsy: - No pathologic abnormalities. Performed By: #### S ####[facility]ORATORYCLIA [id number] [address] FINAL PERFORMING LAB Normal [facility] Comment on above: Order Comment: Ron jimenez Type: TISSUE SPECIMENOrdering Facility: [facility] Address: [address] [place] [address] Result Comment: Diag nostic interpretation performed at [facility], [address] [place] [address] CLIA# [id number] Costumed Character Entertainer: Gray Grant M.D. Performed By: #### S ####[facility] LABORATORYCLIA [id number] [place] [address] [facility] Normal [facility] Comment on above: Order Comment: Speci men Type: TISSUE SPECIMENOrdering Facility: [facility] Address: [address] [place] [address] Result Comment: Claudia salamanca, Biopsy Received in formalin labeled stomach biopsy are multiple pieces of gonzalez, soft tissue aggregating to 1.7 x 0.2 x 0.2 cm. Totally submitted in one cassette. Gross examination performed at [facility], [address] [place] [address] CLIA# [id number] [facility] July 21, 2023 4:02 PM Performed By: #### S ####[facility] LABORATORYCLIA [id number] [address] [facility] Upper GI endoscopyon 024 Upper GI endoscopy [facility] Gastrointestinal Endoscopy Patient Name: Lizzy Gant Procedure Date: 07/21/2023 1:19 PM Date of : 1965 Admit Type: Outpatient Room: [place] [address] Gender: Female Note Status: Finalized Attending MD: Mary Jo Herzog MD, [id number] Procedure: Upper GI endoscopy Indications: Heartburn Providers: Mary Jo Herzog MD Patient Profile: Refer to note in patient chart for documentation of history and physical. Patient has symptoms of chronic heartburn. Body Mass Index: 45. Referring Physician: Mary Jo Herzog MD (Referring MD) Medicines: Monitored Anesthesia Care Complications: No immediate complications. Procedure: Pre-Anesthesia Assessment: - Prior to the procedure, a History and Physical was performed, and patient medications and allergies were reviewed. The patient's tolerance of previous anesthesia was also reviewed. The risks and benefits of the procedure and the sedation options and risks were discussed with the patient. All questions were answered, and informed consent was obtained. Prior Anticoagulants: The patient has taken no anticoagulant or antiplatelet agents except for aspirin. ASA Grade Assessment: III - A patient with severe systemic disease. After reviewing the risks and benefits, the patient was deemed in satisfactory condition to undergo the procedure. After obtaining informed consent, the endoscope was passed under direct vision. Throughout the procedure, the patient's blood pressure, pulse, and oxygen saturations were monitored continuously. The Endoscope was introduced through the mouth, and advanced to the third part of duodenum. I was present and participated during the entire procedure, including non-colin portions, and during the administration and monitoring of Moderate Sedation. The upper GI endoscopy was accomplished without difficulty. The patient tolerated the procedure well. Moderate Sedation: Exam was performed under monitored anesthesia care (MAC) Findings: The gastroesophageal flap valve was visualized endoscopically and classified as Hill Grade IV (no fold, wide open lumen, hiatal hernia present). The KIRK capsule with delivery system was introduced through the mouth and advanced into the esophagus, such that the KIRK pH capsule was positioned 27 cm from the incisors, which was 6 cm proximal to the GE junction. The KIRK pH capsule was then deployed and attached to the esophageal mucosa. The delivery system was then withdrawn. Endoscopy was utilized for probe placement and diagnostic evaluation. A 3 cm hiatal hernia was present. Biopsies were taken with a cold forceps for Helicobacter pylori testing. The ampulla, duodenal bulb, first portion of the duodenum, second portion of the duodenum and third portion of the duodenum were normal. Estimated Blood Loss: Estimated blood loss: none. Impression: - Gastroesophageal flap valve classified as Hill Grade IV (no fold, wide open lumen, hiatal hernia present). - 3 cm hiatal hernia. Biopsied the gastric antrum. - Normal ampulla, duodenal bulb, first portion of the duodenum, second portion of the duodenum and third portion of the duodenum. - The KIRK pH capsule was deployed. Recommendation: - Await pathology results. - Continue present medications. - Resume previous diet. - Return to my office as previously scheduled. - Discharge patient to home (ambulatory). - The patient is not currently taking anticoagulant or antiplatelet agents except for aspirin. Procedure Code(s): --- Professional --- 17064, Esophagogastroduodenos copy, flexible, transoral; with biopsy, single or multiple --- Technical --- 93732, 59, Esophagogastroduodenos copy, flexible, transoral; with biopsy, single or multiple 94774, TC, Esophagus, gastroesophageal reflux test; with mucosal attached telemetry pH electrode placement, recording, analysis and interpretation Diagnosis Code(s): --- Professional --- K44.9, Diaphragmatic hernia without obstruction or gangrene R12, Heartburn CPT copyright 2020 [employer]. All rights reserved. The codes documented in this report are preliminary and upon land mobile radio technician review may be revised to meet current compliance requirements. Attending Participation: I personally performed the entire procedure. Scope In: 1:32:12 PM Scope Out: 1:39:57 PM MD Mary Jo Morejon MD 07/21/2023 1:50:56 PM This report has been signed electronically by Mary Jo Herzog MD Number of Addenda: 0 Note Initiated On: 07/21/2023 1:19 PM Normal [facility] CNOVon 07-15-2023 CNOV Office Visit (INTMWS ) LIZZY GANT ([id number]) 1965 F T Date Time Provider Department 07/15/23 1:20 PM SAM NULL INTMWS During your visit today, we recorded the following information about you: Pulse Respiration Blood pressure Weight 64/minute 16/minute 122/78 116.6 kg Sam Null MD 07/17/2023 10:43 PM Signed This note was created using [employer]. 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 She was concerned about diabetes due to ongoing fatigue and increased thrist. She also concerns about poor appetite, lack of weight loss. She felt her issues were related to her thyroid, which was being managed by endocrinology. She had also seen GI and it sounded like she had an EGD recently. She was also scheduled for further testing of her GERD with Dr. Herzog in [facility]. Her symptoms were chronic. I had not seen here for a few years, and informed her she was not diabetic, based on her current labs. Her kidney disease was also stable, and not likely to be contributing to her symptoms. She sees endocrinology, gastroenteroogyI, and cardiology at the local hospital. Review of Systems Constitutional: Positive for appetite change and fatigue. Negative for activity change and unexpected weight change. Respiratory: Negative. Cardiovascular: Positive for leg swelling. Negative for chest pain and palpitations. Endocrine: Positive for polydipsia and polyuria. Genitourinary: Positive for frequency. ACTIVE PROBLEM LIST Asthma Edema Veto On Cpap Gerd (Gastroesophageal Reflux Disease) Chronic Midline Low Back Pain Without Sciatica Irritable Bowel Syndrome With Diarrhea Carpal Tunnel Syndrome, Bilateral Obesity, Class Iii, Bmi 40-49.9 (Morbid Obesity) (Hcc) Stage 3a Chronic Kidney Disease (Hcc) Atypical Chest Pain Bile-Induced Gastritis Colon Polyp Subclinical Hypothyroidism Right Renal Atrophy Social History Tobacco Use Smoking status: Former Packs/day: 1.00 Years: 15.00 Additional pack years: 0.00 Total pack years: 15.00 Types: Cigarettes Quit date: 05/30/2009 Years since quittin.1 Smokeless tobacco: Never Tobacco comments: started age 16 Vaping Use Vaping Use: Never used Substance Use Topics Alcohol use: Not Currently Drug use: Never Current Outpatient Medications Medication Sig levothyroxine (SYNTHROID) 100 mcg tablet Take 1 tablet by mouth once daily. Per [facility]. colestipol (COLESTID) 1 gram tablet Take 2 tablets by mouth two times a day. albuterol HFA (PROAIR HFA) 90 mcg/actuation inhaler Inhale 2 Puffs as instructed every 4 hours as needed. fluticasone (FLONASE) 50 mcg/actuation nasal spray instill [...] of hands, arms, legs for 1 week.). furosemide (LASIX) 40 mg tablet Take 1 tablet by mouth two times a day. Per [facility] spironolactone (ALDACTONE) 25 mg tablet Take 1 tablet by mouth every afternoon. Per [facility] traMADol (ULTRAM) 50 mg tablet Take 1 [...] on empty stomach, 1/2 hr before meal. nitroglycerin sublingual (NITROQUICK) 0.4 mg SL tablet [...] mask of choice, HUMIDITY. LIFETIME SUPPLIES. DME: [facility] No current facility-administered medications for this visit. Objective Blood Pressure 122/78 Pulse 64 Respiration 16 Weight 116.6 kg (257 lb) Last Menstrual Period (LMP Unknown) Oxygen Saturation 98% Body Mass Index 45.53 kg/m? Physical Exam Constitutional: General: She is not in acute distress. Appearance: She is obese. She is not ill-appearing. Eyes: Conjunctiva/sclera: Conjunctivae normal. Cardiovascular: Rate and Rhythm: Normal rate. Pulses: Normal pulses. Heart sounds: Normal heart sounds. Pulmonary: Effort: No respiratory dist (more content not included)... Normal [facility] ALBUMIN/CREATININE RATIO, UR INEon 07-13-2023 Albumin DL <= 20 mg/L (U) [Mass/Vol] mg/dL Normal [facility] Comment on above: Order Comment: Speci men Type: URINE SPECIMENOrdering Facility: [facility] Address: [address] [place] [address] Performed By: #### U ACR ####[facility] LABCLIA [id number] [facility] [id number] [address] [place] Albumin/Creatinine (U) [Mass ratio] <11 Normal <30 [facility] Comment on above: Order Comment: Speci men Type: URINE SPECIMENOrdering Facility: [facility] Address: [address] [place] [address] Result Comment: Adul t Male and Female Nephrotic Criteria: <30 mg/g is considered normal to mildly increased 30-300 mg/g is considered moderately increased >300 mg/g is considered severely increased KDIGO. (2013). KDIGO 2012 Clinical Practice Guideline for the Evaluation and Management of Chronic Kidney Disease. Official Journal of the International Society of Nephrology, 3(1), 1-150. Performed By: #### U ACR ####[facility] LABCLIA [id number] [place] [address] [place] Creatinine (U) [Mass/Vol] 106.1 mg/dL Normal 20.0-300.0 [facility] Comment on above: Order Comment: Speci men Type: URINE SPECIMENOrdering Facility: [facility] Address: [address] [place] [address] Performed By: #### U ACR ####[facility] LABCLIA [id number] [place] [address] [place] CBC panel Auto (Bld)on 07-12 Erythrocyte distribution width (RBC) [Ratio] 13.8 % Normal 11.5-15.0 [facility] Comment on above: Order Comment: Speci men Type: BLOOD SPECIMEN Ordering Facility: [facility] Address: [address] [place] [address] Performed By: #### 5 8410-2 #### [facility] CLIA [id number] [address] [place] [address] [place] Hematocrit (Bld) [Volume fraction] 43.6 % Normal 36.0-46.0 [facility] Comment on above: Order Comment: Speci men Type: BLOOD SPECIMEN Ordering Facility: [facility] Address: [address] [place] [address] Performed By: #### 5 8410-2 #### [facility] CLIA [id number] [address] [place] [address] [place] Hemoglobin (Bld) [Mass/Vol] 14.4 g/dL Normal 11.5-15.5 [facility] Comment on above: Order Comment: Speci men Type: BLOOD SPECIMEN Ordering Facility: [facility] Address: [address] [place] [address] Performed By: #### 5 8410-2 #### [facility] CLIA [id number] [address] [place] [address] [place] MCH (RBC) [Entitic mass] 28.4 pg Normal 26.0-34.0 [facility] Comment on above: Order Comment: Speci men Type: BLOOD SPECIMEN Ordering Facility: [facility] Address: [address] [place] [address] Performed By: #### 5 8410-2 #### [facility] CLIA [id number] [address] [place] [address] [place] MCHC (RBC) [Mass/Vol] 33.0 g/dL Normal 30.5-36.0 [facility] Comment on above: Order Comment: Speci men Type: BLOOD SPECIMEN Ordering Facility: [facility] Address: [address] [place] [address] Performed By: #### 5 8410-2 #### [facility] CLIA [id number] [address] [place] [address] [place] MCV (RBC) [Entitic vol] 86.0 fL Normal 80.0-100.0 [facility] Comment on above: Order Comment: Speci men Type: BLOOD SPECIMEN [facility]ing Facility: [facility] Address: [address] [place] [address] Performed By: #### 5 8410-2 #### [facility] CLIA [id number] [address] [place] [address] [place] Nucleated RBC (Bld) [#/Vol] 10*3/uL Normal <0.01 [facility] Comment on above: Order Comment: Speci men Type: BLOOD SPECIMEN [facility]ing [facility]: [facility] Address: [address] [place] [address] Performed By: #### 5 8410-2 #### [facility] CLIA [id number] [address] [place] [address] [place] Platelet mean volume (Bld) [Entitic vol] 12.0 fL Normal 9.0-12.7 [facility] Comment on above: Order Comment: Speci men Type: BLOOD SPECIMEN Ordering Facility: [facility] Address: [address] [place] [address] Performed By: #### 5 8410-2 #### [facility] CLIA [id number] [address] [place] [address] [place] Platelets (Bld) [#/Vol] 213 10*3/uL Normal 150-400 [facility] Comment on above: Order Comment: Speci men Type: BLOOD SPECIMEN Ordering Facility: [facility] Address: [address] [place] [address] Performed By: #### 5 8410-2 #### [facility] CLIA [id number] [address] [place] [address] [place] RBC (Bld) [#/Vol] 5.07 10*6/uL Normal 3.90-5.20 [facility] Comment on above: Order Comment: Speci men Type: BLOOD SPECIMEN [facility]ing Facility: [facility] Address: [address] [place] [address] Performed By: #### 5 8410-2 #### [facility] CLIA [id number] [address] [place] [address] [place] WBC (Bld) [#/Vol] 7.61 10*3/uL Normal 3.70-11.00 [facility] Comment on above: Order Comment: Speci men Type: BLOOD SPECIMEN Ordering Facility: [facility] Address: [address] [place] [address] Performed By: #### 5 8410-2 #### [facility] CLIA [id number] [address] [place] [address] [place] HbA1c (Bld)on 07-13-2023 Average glucose Estimated from glycated hemoglobin (Bld) [Mass/Vol] 105 mg/dL Normal [facility] Comment on above: Order Comment: Speci men Type: BLOOD SPECIMENOrdering Facility: [facility] Address: [address] [place] [address] Result Comment: eAG: (Estimated average glucose) is a calculated value from HgbA1c and is unit support representative of the average blood glucose level in the last 2-3 month period. Performed By: #### 5 5454-3 ####[facility] LABCLIA [id number] [place] [address] [place] HbA1c (Bld) [Mass fraction] 5.3 % Normal 4.3-5.6 [facility] Comment on above: Order Comment: Speci [facility] Type: BLOOD SPECIMENOrdering Facility: [facility] Address: [address] [place] [address] Result Comment: Amer [place] Diabetes Association guidelines indicate that patients with HgbA1c in the range 5.7-6.4% are at increased risk for development of diabetes, and intervention by lifestyle modification may be beneficial. HgbA1c greater or equal to 6.5% is considered diagnostic of diabetes. Performed By: #### 5 5454-3 ####[facility] LABCLIA [id number] [place] [address] [place] Prot/Creat Uron 07-13-2023 Protein/Creatinine (U) [Mass ratio] 0.10 mg/mg Normal <0.15 [facility] Comment on above: Order Comment: Speci men Type: URINE SPECIMENOrdering Facility: [facility] Address: [address] [place] [address] Result Comment: Adul t Proteinuria Categories: <0.15 mg/mg is considered normal to mildly increased 0.15 - 0.50 mg/mg is considered moderately increased >0.50 mg/mg is considered severely increased KDIGO. (2013). KDIGO 2012 Clinical Practice Guideline for the Evaluation and Management of Chronic Kidney Disease. Official Journal of the International Society of Nephrology, 3(1), 1-150. Performed By: #### 2 890-2 ####[facility] LABCLIA [id number] [place] [address] [place] Protein/Creatinine (U) [Mass ratio]on 07-13-2023 Creatinine (U) [Mass/Vol] 103.7 mg/dL Normal 20.0-300.0 [facility] Comment on above: Order Comment: Speci men Type: URINE SPECIMENOrdering Facility: [facility] Address: [address] [place] [address] Performed By: #### 2 890-2 ####[facility] LABCLIA [id number] [place] [address] [place] Protein (U) [Mass/Vol] 10 mg/dL Normal 0-20 [facility] Comment on above: Order Comment: Speci men Type: URINE SPECIMENOrdering Facility: [facility] Address: [address] [place] [address] Performed By: #### 2 890-2 ####[facility] LABCLIA [id number] [place] [address] [place] Renal function 2000 panelon 07-13-2023 Albumin [Mass/Vol] 4.4 g/dL Normal 3.9-4.9 [facility] Comment on above: Order Comment: Speci men Type: BLOOD SPECIMENOrdering Facility: [facility] Address: [address] [place] [address] Performed By: #### 2 4362-6 ####[facility] LABCLIA [id number] [place] [address] [place] Anion gap [Moles/Vol] 16 mmol/L Normal 9-18 [facility] Comment on above: Order Comment: Speci men Type: BLOOD SPECIMENOrdering Facility: [facility] Address: [address] [place] [address] Performed By: #### 2 4362-6 ####[facility] LABCLIA [id number] [address] [address] [place] Calcium [Mass/Vol] 10.0 mg/dL Normal 8.5-10.2 [facility] Comment on above: Order Comment: Speci men Type: BLOOD SPECIMENOrdering Facility: [facility] Address: [address] [place] [address] Performed By: #### 2 4362-6 ####[facility] LABCLIA [id number] [place] [address] [place] Chloride [Moles/Vol] 99 mmol/L Normal 97-105 [facility] Comment on above: Order Comment: Speci men Type: BLOOD SPECIMENOrdering Facility: [facility] Address: [address] [place] [address] Performed By: #### 2 4362-6 ####[facility] LABCLIA [id number] [place] [address] [place] CO2 [Moles/Vol] 26 mmol/L Normal 22-30 [facility] Comment on above: Order Comment: Speci men Type: BLOOD SPECIMENOrdering Facility: [facility] Address: [address] [place] [address] Performed By: #### 2 4362-6 ####[facility] LABCLIA [id number] [place] [address] [place] Creatinine [Mass/Vol] 1.25 mg/dL High 0.58-0.96 [facility] Comment on above: Order Comment: Speci men Type: BLOOD SPECIMENOrdering Facility: [facility] Address: [address] [place] [address] Performed By: #### 2 4362-6 ####[facility] LABCLIA [id number] [place] [address] [place] Creatinine and Glomerular filtration rate.predicted panel (S/P/Bld) 50 mL/min/1.73m??? Low >=60 [facility] Comment on above: Order Comment: Ron jimenez Type: BLOOD SPECIMENOrdering Facility: [facility] Address: [address] [place] [address] Result Comment: Sara mated Glomerular Filtration Rate (eGFR) is calculated using the 2020 CKD-EPI creatinine equation. This equation utilizes serum creatinine, sex, and age as parameters. The creatinine assay has traceable calibration to isotope dilution-mass spectrometry. Refer to KDIGO guidelines for clinical interpretation. In patients with unstable renal function, e.g. those with acute kidney injury, the eGFR may not accurately reflect actual GFR. Performed By: #### 2 4362-6 ####[facility] LABIA [id number] [place] [address] [place] [facility] Glucose [Mass/Vol] 92 mg/dL Normal 74-99 [facility] Comment on above: Order Comment: Ron jimenez Type: BLOOD SPECIMENOrdering Facility: [facility] Address: [address] [place] [address] Result Comment: The [place] Diabetes Association (ADA) provides guidance for cutoff values for fasting glucose and random glucose. The ADA defines fasting as no caloric intake for at least 8 hours. Fasting plasma glucose results between 100 to 125 mg/dL indicate increased risk for diabetes (prediabetes). Fasting plasma glucose results greater than or equal to 126 mg/dL meet the criteria for diagnosis of diabetes. In the absence of unequivocal hyperglycemia, results should be confirmed by repeat testing. In a patient with classic symptoms of hyperglycemia or hyperglycemic crisis, random plasma glucose results greater than or equal to 200 mg/dL meet the criteria for diagnosis of diabetes. Reference: Standards of Medical Care in Diabetes 2016, [place] Diabetes Association. Diabetes Care. 2016.39(Suppl 1). Performed By: #### 2 4362-6 ####[facility] LABCLIA [id number] [address] [address] [place] Phosphate [Mass/Vol] 3.0 mg/dL Normal 2.7-4.8 [facility] Comment on above: Order Comment: Speci men Type: BLOOD SPECIMENOrdering Facility: [facility] Address: [address] [place] [address] Performed By: #### 2 4362-6 ####[facility] LABCLIA [id number] [place] [address] [place] Potassium [Moles/Vol] 4.3 mmol/L Normal 3.7-5.1 [facility] Comment on above: Order Comment: Speci men Type: BLOOD SPECIMENOrdering Facility: [facility] Address: [address] [place] [address] Performed By: #### 2 4362-6 ####[facility] LABCLIA [id number] [place] [address] [place] Sodium [Moles/Vol] 141 mmol/L Normal 136-144 [facility] Comment on above: Order Comment: Speci men Type: BLOOD SPECIMENOrdering Facility: [facility] Address: [address] [place] [address] Performed By: #### 2 4362-6 ####[facility] LABCLIA [id number] [place] [address] [place] Urea nitrogen [Mass/Vol] 14 mg/dL Normal 7-21 [facility] Comment on above: Order Comment: Speci men Type: BLOOD SPECIMENOrdering Facility: [facility] Address: [address] [place] [address] Performed By: #### 2 4362-6 ####[facility] LABCLIA [id number] [place] [address] [place] Urinalysis complete panel (U )on 07-13-2023 Bacteria LM.HPF (Urine sed) [#/Area] Negative Normal Negative [facility] Comment on above: Order Comment: Speci men Type: URINE SPECIMENOrdering Facility: [facility] Address: [address] [place] [address] Performed By: #### 2 4356-8 ####[facility]CLIA [id number] [place] [address] [place] Bilirubin Ql (U) Negative Normal Negative [facility] Comment on above: Order Comment: Speci men Type: URINE SPECIMENOrdering Facility: [facility] Address: [address] [place] [address] Performed By: #### 2 4356-8 ####[facility]CLIA [id number] [place] [address] [place] Clarity (Unsp spec) Clear Normal Clear [facility] Comment on above: Order Comment: Speci men Type: URINE SPECIMENOrdering Facility: [facility] Address: [address] [place] [address] Performed By: #### 2 4356-8 ####[facility] LABCLIA [id number] [place] [address] [place] Color (U) Yellow Normal Yellow [facility] Comment on above: Order Comment: Speci men Type: URINE SPECIMENOrdering Facility: [facility] Address: [address] [place] [address] Performed By: #### 2 4356-8 ####[facility]CLIA [id number] [place] [address] [place] Epithelial cells LM.HPF (Urine sed) [#/Area] None Seen Normal [facility] Comment on above: Order Comment: Speci men Type: URINE SPECIMENOrdering Facility: [facility] Address: [address] [place] [address] Performed By: #### 2 4356-8 ####[facility]CLIA [id number] [place] [address] [place] Glucose Test strip (U) [Mass/Vol] Negative Normal Negative [facility] Comment on above: Order Comment: Speci men Type: URINE SPECIMENOrdering Facility: [facility] Address: [address] [place] [address] Performed By: #### 2 4356-8 ####[facility]CLIA [id number] [place] [address] [place] Hemoglobin Ql (U) Negative Normal Negative [facility] Comment on above: Order Comment: Speci men Type: URINE SPECIMENOrdering Facility: [facility] Address: [address] [place] [address] Performed By: #### 2 4356-8 ####[facility] LABCLIA [id number] [place] [address] [place] Hyaline casts (Urine sed) [#/Area] 1-3 /LPF Abnormal 0 /LPF [facility] Comment on above: Order Comment: Speci men Type: URINE SPECIMENOrdering Facility: [facility] Address: [address] [place] [address] Performed By: #### 2 4356-8 ####[facility]CLIA [id number] [place] [address] [place] Ketones Ql (U) Negative Normal Negative [facility] Comment on above: Order Comment: Speci men Type: URINE SPECIMENOrdering Facility: [facility] Address: [address] [place] [address] Performed By: #### 2 4356-8 ####[facility]CLIA [id number] [place] [address] [place] Leukocyte esterase Test strip Ql (U) 1+ Abnormal Negative [facility] Comment on above: Order Comment: Speci men Type: URINE SPECIMENOrdering Facility: [facility] Address: [address] [place] [address] Performed By: #### 2 4356-8 ####[facility]CLIA [id number] [place] [address] [place] Nitrite Ql (U) Negative Normal Negative [facility] Comment on above: Order Comment: Speci men Type: URINE SPECIMENOrdering Facility: [facility] Address: [address] [place] [address] Performed By: #### 2 4356-8 ####[facility] LABIA [id number] [place] [address] [place] pH (U) 7.0 [pH] Normal <8.5 [facility] Comment on above: Order Comment: Speci men Type: URINE SPECIMENOrdering Facility: [facility] Address: [address] [place] [address] Performed By: #### 2 4356-8 ####[facility] LABIA [id number] [place] [address] [place] Protein (U) [Mass/Vol] Negative Normal Negative [facility] Comment on above: Order Comment: Speci men Type: URINE SPECIMENOrdering Facility: [facility] Address: [address] [place] [address] Performed By: #### 2 4356-8 ####[facility] LABIA [id number] [place] [address] [place] RBC LM.HPF (Urine sed) [#/Area] 0-2 /HPF Normal 0-2 /HPF [facility] Comment on above: Order Comment: Speci men Type: URINE SPECIMENOrdering Facility: [facility] Address: [address] [place] [address] Performed By: #### 2 4356-8 ####[facility] LABIA [id number] [place] [address] [place] Specific gravity (U) [Rel density] 1.012 Normal 1.005-1.030 [facility] Comment on above: Order Comment: Speci men Type: URINE SPECIMENOrdering Facility: [facility] Address: [address] [place] [address] Performed By: #### 2 4356-8 ####[facility] LABCLIA [id number] [place] [address] [place] Urobilinogen Ql (U) 0.2 EU/dL Normal 0.2-1.0 EU/dL Cl [facility] Comment on above: Order Comment: Speci men Type: URINE SPECIMENOrdering Facility: [facility] Address: [address] [place] [address] Performed By: #### 2 4356-8 ####[facility] LABIA [id number] [place] [address] [place] WBC LM.HPF (Urine sed) [#/Area] 0-5 /HPF Normal 0-5 /HPF [facility] Comment on above: Order Comment: Speci men Type: URINE SPECIMENOrdering Facility: [facility] Address: [address] [place] [address] Performed By: #### 2 4356-8 ####[facility] LABIA [id number] [address] [place] CNPKalee 07-[facility]2023 [facility] LIZZY GANT ([id number]) 1965 F CHT Date Time Provider Department 07/11/23 SAM NULL INTWS During your visit today, we recorded the following information about you: Halie Ambriz LPN 07/11/2023 3:43 PM Signed Patient calling said she is short of breath, fatigued, excessive thirst, edema, dizzy feeling. 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 Patient asking to have tests done to check to see if she is diabetic, she said she used to have very low blood sugar, diabetes is in the family. Her next appt with PCP is mid November, had seen Verito in March, refusing to schedule appt She said PCP could look at all the labs that were done in the past month. Please advise Verito Cash APRN.ERICK 07/12/2023 3:30 PM Signed HgbA1c ordered, she will need an appointment to discuss results Verito Cash APRN.Kristen Cuadra LPN 07/12/2023 3:57 PM Signed Patient advised, appt scheduled. Kristen Oconnor LPN Allergies As of Date: 07/11/2023 Noted Allergy Reaction IV CONTRAST (IODINE) 04/14/2023 7 - Swelling SEASONAL ALLERGIES 04/08/2021 5 - Intolerance Date Reviewed: 07/06/2023 Reviewed by: Mary Jo Herzog MD - Fully Assessed Reason for Visit: Patient Question [1477] Primary Visit Diagnosis:Hyperglycemi a [R73.9] Order(s):HEMOGLOBIN A1C [IRTCV7R] Order #: [id number] FUTURE Prescriptions as of 07/12/2023 - levothyroxine (SYNTHROID) 112 mcg tablet Take 1 tablet by mouth once daily. Per endocrinology (Dr. Grant Morgan) - furosemide (LASIX) 40 mg tablet Take 1 tablet by mouth two times a day. Per [facility] - spironolactone (ALDACTONE) 25 mg tablet Take 1 tablet by mouth every afternoon. Per [facility] - albuterol HFA (PROAIR HFA) 90 mcg/actuation inhaler Inhale 2 Puffs as instructed every 4 hours as needed. - fluticasone (FLOVENT HFA) 220 mcg/actuation inhaler Inhale 1 Puff as instructed two times a day. Shake well before use. Rinse mouth after use. - hydrocortisone 2.5 % cream Apply 1 application to affected area two times a day as needed (Apply sparingly to rash of hands, arms, legs for 1 week.). - fluticasone (FLONASE) 50 mcg/actuation nasal spray instill 2 sprays into each nostril once daily at bedtime - traMADol (ULTRAM) 50 mg tablet Take 1 tablet by mouth every 6 hours as needed for pain. - olopatadine (PATANOL) 0.1 % ophthalmic solution - EYE ITCH RELIEF 0.025 % (0.035 %) ophthalmic solution instill 1 drop into both eyes twice a day if needed - dicyclomine (BENTYL) 10 mg capsule 10 mg. - pantoprazole DR (PROTONIX) 40 mg tablet Take 1 tablet by mouth twice daily. Take on empty stomach, 1/2 hr before meal. - omeprazole (PRILOSEC) 40 mg capsule Take 1 capsule by mouth once daily. - colestipol (COLESTID) 1 gram tablet Take 1 g by mouth once daily. - nitroglycerin sublingual (NITROQUICK) 0.4 mg SL [...] mask of choice, HUMIDITY. LIFETIME SUPPLIES. DME: [facility] Problem List As Of Date 07/11/2023 Noted Resolved Complete spontaneous without mention o*01/01/2005 [...] Obesity, Class III, BMI 40-49.9 (morbid obesity*07/27/2017 Stage 3a chronic kidney disease (HCC) [N18.31] 04/08/2021 Dermatophytosis of nail [B35.1] 04/08/2021 10/08/2021 Atypical chest pain [R07.89] 04/08/2021 Bile-induced gastritis [K29.60] 04/08/2021 Colon polyp [K63.5] 07/17/2020 Subclinical hypothyroidism [E03.8] 11/29/2022 Right renal atrophy [N26.1] 01/27/2023 Encounter Status:Closed by KRISTEN OCONNOR on 07/12/23 [facility] CNPKalee 07-07-2023 CNPN Telephone (AGGENS4) LIZZY GANT ([id number]) 1965 F T Date Time Provider Department 07/07/23 MARY JO HERZOG4 During your visit today, we recorded the following information about you: Cathy Simmons MA 07/07/2023 12:41 PM Signed Manometry scheduled for 07/21/2023 at 12:00 pm followed by EGD/Rigo at 1:00 pm. Prep/instructions given to patient at checkout yesterday. Cathy Simmons MA Allergies As of Date: 07/07/2023 Noted Allergy Reaction IV CONTRAST (IODINE) 04/14/2023 7 - Swelling SEASONAL ALLERGIES 04/08/2021 5 - Intolerance Date Reviewed: 07/06/2023 Reviewed by: Mary Jo Herzog MD - Fully Assessed Reason for Visit: Appointment [186] Cmt: EGD/Kirk/Mano Prescriptions as of 07/07/2023 - levothyroxine (SYNTHROID) 112 mcg tablet Take 1 tablet by mouth once daily. Per endocrinology (Dr. Grant Morgan) - furosemide (LASIX) 40 mg tablet Take 1 tablet by mouth two times a day. Per [facility] - spironolactone (ALDACTONE) 25 mg tablet Take 1 tablet by mouth every afternoon. Per [facility] - albuterol HFA (PROAIR HFA) 90 mcg/actuation inhaler Inhale 2 Puffs as instructed every 4 hours as needed. - fluticasone (FLOVENT HFA) 220 mcg/actuation inhaler Inhale 1 Puff as instructed two times a day. Shake well before use. Rinse mouth after use. - hydrocortisone 2.5 % cream Apply 1 application to affected area two times a day as needed (Apply sparingly to rash of hands, arms, legs for 1 week.). - fluticasone (FLONASE) 50 mcg/actuation nasal spray instill 2 sprays into each nostril once daily at bedtime - traMADol (ULTRAM) 50 mg tablet Take 1 tablet by mouth every 6 hours as needed for pain. - olopatadine (PATANOL) 0.1 % ophthalmic solution - EYE ITCH RELIEF 0.025 % (0.035 %) ophthalmic solution instill 1 drop into both eyes twice a day if needed - dicyclomine (BENTYL) 10 mg capsule 10 mg. - pantoprazole DR (PROTONIX) 40 mg tablet Take 1 tablet by mouth twice daily. Take on empty stomach, 1/2 hr before meal. - omeprazole (PRILOSEC) 40 mg capsule Take 1 capsule by mouth once daily. - colestipol (COLESTID) 1 gram tablet Take 1 g by mouth once daily. - nitroglycerin sublingual (NITROQUICK) 0.4 mg SL [...] mask of choice, HUMIDITY. LIFETIME SUPPLIES. DME: [facility] Problem List As Of Date 07/07/2023 Noted Resolved Complete spontaneous without mention o*01/01/2005 [...] Obesity, Class III, BMI 40-49.9 (morbid obesity*07/27/2017 Stage 3a chronic kidney disease (HCC) [N18.31] 04/08/2021 Dermatophytosis of nail [B35.1] 04/08/2021 10/08/2021 Atypical chest pain [R07.89] 04/08/2021 Bile-induced gastritis [K29.60] 04/08/2021 Colon polyp [K63.5] 07/17/2020 Subclinical hypothyroidism [E03.8] 11/29/2022 Right renal atrophy [N26.1] 01/27/2023 Encounter Status:Closed by CATHY SIMMONS on 07/07/23 [facility] 07-06-2023 CNOV Office Visit (RICH 4) LIZZY GANT ([id number]) 1965 F CHT Date Time Provider Department 07/06/23 1:00 PM MARY JO HERZOG During your visit today, we recorded the following information about you: Pulse Blood pressure Weight Height 63/minute 122/82 117.6 kg 1.6 m Mary Jo Herzog MD 07/06/2023 1:44 PM Signed SURGICAL SERVICES HISTORY AND PHYSICAL EXAMINATION SERVICE DATE: 07/06/2023 SERVICE TIME: 1:15 PM PRIMARY CARE PHYSICIAN: Sam Null MD SUBJECTIVE CHIEF COMPLAINT: heartburn HISTORY OF PRESENT ILLNESS: Ms. Gant is a 58 year old female with a PMH of asthma (inhalers; Flonase), atrial fibrillation (Coreg, ASA), atypical chest pain, bile gastritis, chronic back pain/arthritis, CKD stage 3, obesity (BMI 45.92), hypothyroidism (synthroid), history of tobacco use, IBS, hiatal hernia and GERD who presents for surgical consultation. The patient reports a long history of reflux symptoms - since she was a child. She has taken medication for reflux as long as she can recall. At the age of 16 she began to take prescription medications. Since 1987 she has worked on maintaining weight. Her BMI is 45.92 today and her weight is 259 pounds. The lowest weight she can recall was 200 pounds. She endorses symptoms of belching, burping, sour taste in her mouth, regurgitation of food and acid. Symptoms occur during the day and are nocturnal as well. She endorses intermittent difficulty swallowing - this occurs several times per week. She takes Protonix 40 mg BID and Omeprazole 40 mg once daily. She states that if she does not take these medications she experiences severe GERD symptoms. Workup: - EGD (Cebul; 07/17/20): medium-sized hiatal hernia; gastritis of the antrum - UGI (03/22/23): normal GEJ without hernia - GES (12/30/22): normal gastric emptying time - CT abd/pelvis (04/07/23): no acute abnormality Social: former smoker - quit in 2009 without recidivism; denies use of etoh or illicit drugs; on disability due to joint pain and arthritis. PSHx: Lap CCx, left and right heart cath PAST MEDICAL HISTORY: PAST MEDICAL HISTORY Diagnosis Date Asthma 06/13/2008 Atypical chest pain 01/2019 heart cath normal Bile-induced gastritis 04/08/2021 Calcium deposits in tendon and bursa right knee Chronic cholecystitis 07/22/2020 Chronic midline low back pain without sciatica 07/31/2015 Colon polyp 07/17/2020 Dermatophytosis of the body Edema 06/13/2008 GERD (gastroesophageal reflux disease) 07/29/2010 Hiatal hernia 07/17/2020 medium sized seen on EGD Infectious mononucleosis Irregular menstrual cycle Obesity, Class III, BMI 40-49.9 (morbid obesity) ([facility] 07/27/2017 Tobacco use disorder Unspecified hearing loss left ear - wears hearing aid Unspecified hypothyroidism PAST SURGICAL HISTORY: PAST SURGICAL HISTORY Procedure Laterality Date COLONOSCOPY SCREENING 07/17/2020 EGD WITH BIOPSY(S) 07/17/2020 medium sized hiatal hernia; Dr. Ava LIANG SURG CHOLECYSTECTOMY W/CHOLANGIOGRAPHY 07/22/2020 [facility] LEFT HEART CATH,PERCUTANEOUS 01/23/2019 L AND [...] Types: Cigarettes Quit date: 05/30/2009 Years since quittin.1 Smokeless tobacco: Never Tobacco comments: started age 16 Vaping Use Vaping Use: Never used Substance Use Topics Alcohol use: Not Currently Drug use: Never MEDICATIONS: Current Outpatient Medications Medication Sig levothyroxine (SYNTHROID) 112 mcg tablet Take 1 tablet by mouth once daily. Per endocrinology (Dr. Grant Morgan) furosemide (LASIX) 40 mg tablet Take 1 tablet by mouth two times a day. Per [facility] spironolactone (ALDACTONE) 25 mg tablet Take 1 tablet by mouth every afternoon. Per [facility] albuterol HFA (PROAIR HFA) 90 [...] ITCH RELIEF 0.025 % (0.035 %) ophthalmic (more content not included)... [facility]20[facility] Tele[facility] (AGGENS4) LIZZY GANT ([id number]) 1965 F CHT Date Time Provider Department 07/06/23 MARY JO HERZOG AGGENS4 During your visit today, we recorded the following information about you: Cassie Suh RN 07/06/2023 1:52 PM Signed Bariatric Seminar sent. Cassie Suh RN Allergies As of Date: 07/06/2023 Noted Allergy Reaction IV CONTRAST (IODINE) 04/14/2023 7 - Swelling SEASONAL ALLERGIES 04/08/2021 5 - Intolerance Date Reviewed: 07/06/2023 Reviewed by: Mary Jo Herzog MD - Fully Assessed Reason for Visit: Bariatric Seminar [Other] Prescriptions as of 07/06/2023 - levothyroxine (SYNTHROID) 112 mcg tablet Take 1 tablet by mouth once daily. Per endocrinology (Dr. Grant Morgan) - furosemide (LASIX) 40 mg tablet Take 1 tablet by mouth two times a day. Per [facility] - spironolactone (ALDACTONE) 25 mg tablet Take 1 tablet by mouth every afternoon. Per [facility] - albuterol HFA (PROAIR HFA) 90 mcg/actuation inhaler Inhale 2 Puffs as instructed every 4 hours as needed. - fluticasone (FLOVENT HFA) 220 mcg/actuation inhaler Inhale 1 Puff as instructed two times a day. Shake well before use. Rinse mouth after use. - hydrocortisone 2.5 % cream Apply 1 application to affected area two times a day as needed (Apply sparingly to rash of hands, arms, legs for 1 week.). - fluticasone (FLONASE) 50 mcg/actuation nasal spray instill 2 sprays into each nostril once daily at bedtime - traMADol (ULTRAM) 50 mg tablet Take 1 tablet by mouth every 6 hours as needed for pain. - olopatadine (PATANOL) 0.1 % ophthalmic solution - EYE ITCH RELIEF 0.025 % (0.035 %) ophthalmic solution instill 1 drop into both eyes twice a day if needed - dicyclomine (BENTYL) 10 mg capsule 10 mg. - pantoprazole DR (PROTONIX) 40 mg tablet Take 1 tablet by mouth twice daily. Take on empty stomach, 1/2 hr before meal. - omeprazole (PRILOSEC) 40 mg capsule Take 1 capsule by mouth once daily. - colestipol (COLESTID) 1 gram tablet Take 1 g by mouth once daily. - nitroglycerin sublingual (NITROQUICK) 0.4 mg SL [...] mask of choice, HUMIDITY. LIFETIME SUPPLIES. DME: [facility] Problem List As Of Date 07/06/2023 Noted Resolved Complete spontaneous without mention o*01/01/2005 [...] Obesity, Class III, BMI 40-49.9 (morbid obesity*07/27/2017 Stage 3a chronic kidney disease (HCC) [N18.31] 04/08/2021 Dermatophytosis of nail [B35.1] 04/08/2021 10/08/2021 Atypical chest pain [R07.89] 04/08/2021 Bile-induced gastritis [K29.60] 04/08/2021 Colon polyp [K63.5] 07/17/2020 Subclinical hypothyroidism [E03.8] 11/29/2022 Right renal atrophy [N26.1] 01/27/2023 Encounter Status:Closed by CASSIE SUH on 07/06/23 [facility] CNPN Telephone ([facility]) STALINLIZZY ([id number]) 1965 F T Date Time Provider Department 07/06/23 RAFFAELE MUSTAFA [facility] During your visit today, we recorded the following information about you: Ebony Monroy 07/06/2023 3:56 PM Signed Name of Caller: Lizzy Relationship to patient: patient Last visit in this department: Visit date not found Reason for Call: pt is experiencing pain in lower side. Thinks it has to do with kidneys. She has been swelling in her body for over a week now. Please advise Callback number: [phone] Raffaele Mustafa MD 07/06/2023 5:06 PM Signed Called patient. States she has a new pain in her LLQ since we spoke on Kuldeep. She is worried about her kidneys. I looked at her scanned CT report from March 2023 which showed no kidney findings to explain this. Discussed that she needs to be able to eat and drink and then assess if the pain is tolerable. If she can't do either of those, then possible ED trip but difficult to guide her further since I cannot examine her. SIGNATURE: Raffaele Mustafa MD PATIENT NAME: Lizzy Gant DATE: July 06, 2023 TIME: 5:06 PM PAGER: [phone] Allergies As of Date: 07/06/2023 Noted Allergy Reaction IV CONTRAST (IODINE) 04/14/2023 7 - Swelling SEASONAL ALLERGIES 04/08/2021 5 - Intolerance Date Reviewed: 07/06/2023 Reviewed by: Mary Jo Herzog MD - Fully Assessed Prescriptions as of 07/06/2023 - levothyroxine (SYNTHROID) 112 mcg tablet Take 1 tablet by mouth once daily. Per endocrinology (Dr. Grant Morgan) - furosemide (LASIX) 40 mg tablet Take 1 tablet by mouth two times a day. Per [facility] - spironolactone (ALDACTONE) 25 mg tablet Take 1 tablet by mouth every afternoon. Per [facility] - albuterol HFA (PROAIR HFA) 90 mcg/actuation inhaler Inhale 2 Puffs as instructed every 4 hours as needed. - fluticasone (FLOVENT HFA) 220 mcg/actuation inhaler Inhale 1 Puff as instructed two times a day. Shake well before use. Rinse mouth after use. - hydrocortisone 2.5 % cream Apply 1 application to affected area two times a day as needed (Apply sparingly to rash of hands, arms, legs for 1 week.). - fluticasone (FLONASE) 50 mcg/actuation nasal spray instill 2 sprays into each nostril once daily at bedtime - traMADol (ULTRAM) 50 mg tablet Take 1 tablet by mouth every 6 hours as needed for pain. - olopatadine (PATANOL) 0.1 % ophthalmic solution - EYE ITCH RELIEF 0.025 % (0.035 %) ophthalmic solution instill 1 drop into both eyes twice a day if needed - dicyclomine (BENTYL) 10 mg capsule 10 mg. - pantoprazole DR (PROTONIX) 40 mg tablet Take 1 tablet by mouth twice daily. Take on empty stomach, 1/2 hr before meal. - omeprazole (PRILOSEC) 40 mg capsule Take 1 capsule by mouth once daily. - colestipol (COLESTID) 1 gram tablet Take 1 g by mouth once daily. - nitroglycerin sublingual (NITROQUICK) 0.4 mg SL [...] mask of choice, HUMIDITY. LIFETIME SUPPLIES. DME: [facility] Problem List As Of Date 07/06/2023 Noted Resolved Complete spontaneous without mention o*01/01/2005 [...] Obesity, Class III, BMI 40-49.9 (morbid obesity*07/27/2017 Stage 3a chronic kidney disease (HCC) [N18.31] 04/08/2021 Dermatophytosis of nail [B35.1] 04/08/2021 10/08/2021 Atypical chest pain [R07.89] 04/08/2021 Bile-induced gastritis [K29.60] 04/08/2021 Colon polyp [K63.5] 07/17/2020 Subclinical hypothyroidism [E03.8] 11/29/2022 Right renal atrophy [N26.1] 01/27/2023 Encounter Status:Closed by RAFFAELE MUSTAFA on 07/06/23 [facility] Tele[facility] (KMMNTR) LIZZY GANT ([id number]) 1965 F T Date Time Provider Department 07/01/23 [facility] During your visit today, we recorded the following information about you: Kari Murdock 07/01/2023 5:04 PM Signed Lizzy is calling Raffaele Mustafa MD today to request a call regarding her lab order results from 06/27/23. Still barley able to eat. Only eating once a day and making sure she gets milk and clementines to eat. Has no appetite. Patient has been identified by name and birthdate. Duration of symptoms: N/A Person calling: self Call patient at: on cell [phone] (home) [phone] (cell) Was an appointment scheduled: No Closing statement: Symptom Call: Thank you for calling [facility], your call is very important. A nurse will call in approximately 2-4 hours during business hours. If this is an emergency, please contact 911. Kera Larson MA 07/04/2023 8:[address] Mustafa, Please see message below and advise. GERALD Styles Paul Thomas, MD 07/06/2023 4:59 PM Signed Late Entry. Had long phone call with Ms. Gant regarding her symptoms. Call was on 07/04/23 in the evening. Cannot explain symptoms as being related to the kidneys. Reviewed her recent labs with her. SIGNATURE: Raffaele Mustafa MD PATIENT NAME: Lizzy Gant DATE: July 06, 2023 TIME: 4:59 PM PAGER: [phone] Allergies As of Date: 07/01/2023 Noted Allergy Reaction IV CONTRAST (IODINE) 04/14/2023 7 - Swelling SEASONAL ALLERGIES 04/08/2021 5 - Intolerance Date Reviewed: 04/14/2023 Reviewed by: Raffaele Mustafa MD - Fully Assessed Reason for Visit: Patient Question [1477] Prescriptions as of 07/06/2023 - levothyroxine (SYNTHROID) 112 mcg tablet Take 1 tablet by mouth once daily. Per endocrinology (Dr. Grant Morgan) - furosemide (LASIX) 40 mg tablet Take 1 tablet by mouth two times a day. Per [facility] - spironolactone (ALDACTONE) 25 mg tablet Take 1 tablet by mouth every afternoon. Per [facility] - albuterol HFA (PROAIR HFA) 90 mcg/actuation inhaler Inhale 2 Puffs as instructed every 4 hours as needed. - fluticasone (FLOVENT HFA) 220 mcg/actuation inhaler Inhale 1 Puff as instructed two times a day. Shake well before use. Rinse mouth after use. - hydrocortisone 2.5 % cream Apply 1 application to affected area two times a day as needed (Apply sparingly to rash of hands, arms, legs for 1 week.). - fluticasone (FLONASE) 50 mcg/actuation nasal spray instill 2 sprays into each nostril once daily at bedtime - traMADol (ULTRAM) 50 mg tablet Take 1 tablet by mouth every 6 hours as needed for pain. - olopatadine (PATANOL) 0.1 % ophthalmic solution - EYE ITCH RELIEF 0.025 % (0.035 %) ophthalmic solution instill 1 drop into both eyes twice a day if needed - dicyclomine (BENTYL) 10 mg capsule 10 mg. - pantoprazole DR (PROTONIX) 40 mg tablet Take 1 tablet by mouth twice daily. Take on empty stomach, 1/2 hr before meal. - omeprazole (PRILOSEC) 40 mg capsule Take 1 capsule by mouth once daily. - colestipol (COLESTID) 1 gram tablet Take 1 g by mouth once daily. - nitroglycerin sublingual (NITROQUICK) 0.4 mg SL [...] mask of choice, HUMIDITY. LIFETIME SUPPLIES. DME: [facility] Problem List As Of Date 07/01/2023 Noted Resolved Complete spontaneous without mention o*01/01/2005 [...] Obesity, Class III, BMI 40-49.9 (morbid obesity*07/27/2017 Stage 3a chronic kidney disease (HCC) [N18.31] 04/08/2021 Dermatophytosis of nail [B35.1] 04/08/2021 10/08/2021 Atypical chest pain [R07.89] 04/08/2021 Bile-induced gastritis [K29.60] 04/08/2021 Colon polyp [K63.5] 07/17/2020 Subclinical hypothyroidism [E03.8] 11/29/2022 Right renal atrophy [N26.1] 01/27/2023 Encounter Status:Closed by RAFFAELE MUSTAFA on 07/06/23 Normal [facility] CNPNon 05-11-2023 CNPN Telephone (KMMNTR) [facility] ([id number]) 1965 [facility] Date Time Provider Department 05/11/23 RAFFAELE MUSTAFA KMWITR During your visit today, we recorded the following information about you: Yajaira Grace 05/11/2023 1:31 PM Signed Lizzy is calling Raffaele Mustafa MD today to request Patient Question-Patient called in with concern regarding lab results. Patient had labs drawn on 04-28-23 at [facility] and was told that lab results would be sent directly to provider. Patient wants to know if lab results have been received. The phone number for [facility] is [phone]. Patient has been identified by name and birthdate. Duration of symptoms: N/A Person calling: self Call patient at: at home [phone] (home) [phone] (cell) Was an appointment scheduled: No Closing statement: Symptom Call: Thank you for calling [facility], your call is very important. A nurse will call in approximately 2-4 hours during business hours. If this is an emergency, please contact 911. Kera Brito MA 05/11/2023 1:[address] Mustafa, Please see message below. Have your reviewed labs? GERALD Styles Paul Thomas, MD 05/11/2023 6:41 PM Signed Called patient. Reviewed lab results. Minor fluctuations in Cr, not enough to say there is significant disease progression. Labs in 1 month. SIGNATURE: Raffaele Mustafa MD PATIENT NAME: Lizzy Gant DATE: May 11, 2023 TIME: 6:40 PM PAGER: [phone] Raffaele Mustafa MD 05/11/2023 6:42 PM Signed Addended by: RAFFAELE MUSTAFA on: 05/11/2023 06:42 PM Modules accepted: Orders Allergies As of Date: 05/11/2023 Noted Allergy Reaction IV CONTRAST (IODINE) 04/14/2023 7 - Swelling SEASONAL ALLERGIES 04/08/2021 5 - Intolerance Date Reviewed: 04/14/2023 Reviewed by: Raffaele Mustafa MD - Fully Assessed Reason for Visit: Patient Question [1477] Primary Visit Diagnosis:Stage 3a chronic kidney disease (HCC) [N18.31] Order(s):ALBUMIN/CREAT RATIO RND UR [SQUACR] Order #: [id number] FUTURE PROTEIN CREATININE RATIO [SQPRATIO] Order #: [id number] FUTURE URINALYSIS, WITH MICROSCOPIC [SQUAWMIC] Order #: [id number] FUTURE RENAL FUNCTION PANEL [SQRFP] Order #: [id number] FUTURE Prescriptions as of 05/11/2023 - levothyroxine (SYNTHROID) 112 mcg tablet Take 1 tablet by mouth once daily. Per endocrinology (Dr. Grant Morgan) - furosemide (LASIX) 40 mg tablet Take 1 tablet by mouth two times a day. Per [facility] - spironolactone (ALDACTONE) 25 mg tablet Take 1 tablet by mouth every afternoon. Per [facility] - albuterol HFA (PROAIR HFA) 90 mcg/actuation inhaler Inhale 2 Puffs as instructed every 4 hours as needed. - fluticasone (FLOVENT HFA) 220 mcg/actuation inhaler Inhale 1 Puff as instructed two times a day. Shake well before use. Rinse mouth after use. - hydrocortisone 2.5 % cream Apply 1 application to affected area two times a day as needed (Apply sparingly to rash of hands, arms, legs for 1 week.). - fluticasone (FLONASE) 50 mcg/actuation nasal spray instill 2 sprays into each nostril once daily at bedtime - traMADol (ULTRAM) 50 mg tablet Take 1 tablet by mouth every 6 hours as needed for pain. - olopatadine (PATANOL) 0.1 % ophthalmic solution - EYE ITCH RELIEF 0.025 % (0.035 %) ophthalmic solution instill 1 drop into both eyes twice a day if needed - dicyclomine (BENTYL) 10 mg capsule 10 mg. - pantoprazole DR (PROTONIX) 40 mg tablet Take 1 tablet by mouth twice daily. Take on empty stomach, 1/2 hr before meal. - omeprazole (PRILOSEC) 40 mg capsule Take 1 capsule by mouth once daily. - colestipol (COLESTID) 1 gram tablet Take 1 g by mouth once daily. - nitroglycerin sublingual (NITROQUICK) 0.4 mg SL [...] mask of choice, HUMIDITY. LIFETIME SUPPLIES. DME: [facility] Problem List As Of Date 05/11/2023 Noted Resolved Complete spontaneous without mention o*01/01/2005 06/26/2010 Tobacco use disorder [F17.200] 06/13/2008 07/31/2015 Asthma [J45.909] 06/13/2008 Non morbid obesity due to excess calories [E66.*06/13/2008 04/08/2021 EDEMA [R60.9] 06/13/2008 VETO on CPAP [G47.33] 08/20/2008 Pain in joint, lower leg [M25.569] 2010 07/31/2015 GERD (gastroesophageal reflux disease) [K21.9] 07/12 (more content not included)... Normal [facility] CNOVon 04-14-2023 CNOV Office Visit (KMMNTR ) LIZZY GANT ([id number]) 1965 F T Date Time Provider Department 04/14/23 2:00 PM RAFFAELE MUSTAFA KMMNTR During your visit today, we recorded the following information about you: Pulse Blood pressure Weight Height 64/minute 115/72 114 kg 1.6 m Raffaele Mustafa MD 04/14/2023 3:05 PM Signed [facility] NEPHROLOGY AND HYPERTENSION [facility] SERVICE DATE: 04/14/2023 [...] 1 tablet by mouth every afternoon. Per [facility] albuterol HFA (PROAIR HFA) 90 [...] mask of choice, HUMIDITY. LIFETIME SUPPLIES. DME: [facility] furosemide (LASIX) 40 mg tablet Take 1 tablet by mouth two times a day. Per [facility] (Patient not taking: Reported on [...] 117/81 Standing pulse : 62 BP cuff locati (more content not included)... 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 Patient reports ongoing fatigue and SOB. She is seeing multiple specialists for chronic medical conditions: CKD- stage 3a. Recently referred to nephrology. Ultrasound showed right renal atrophy. Creatinine stable. Hypothyroidism-subclin ical-managed by endocrinology Dr. Grant Morgan now. TSH [...] to always being full of fluid. 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 LIFETIME SUPPLIES. DME: [facility] albuterol HFA (PROAIR HFA) 90 mcg/actuation inhaler [...] Wt 117 kg (258 lb) LMP (LMP Un (more content not included)... Normal [facility] [place] 02-25-2023 [facility] Telephone (KMMNTR) LIZZY GANT ([id number]) 1965 F CHT Date Time Provider Department 02/25/23 RAFFAELE MUSTAFA KMMNTR During your visit today, we recorded the following information about you: Raffaele Mustafa MD 02/25/2023 11:18 AM Signed Attempted to call the patient to clarify her questions. No answer. Left brief VM. Allergies As of Date: 02/25/2023 Noted Allergy Reaction SEASONAL ALLERGIES 04/08/2021 5 - Intolerance Date Reviewed: 02/21/2023 Reviewed by: Qian Suh Ma - Fully Assessed Reason for Visit: Patient Question [5357] Prescriptions as of 02/25/2023 - traMADol (ULTRAM) 50 mg tablet Take 1 tablet by mouth every 6 hours as needed for pain. - spironolactone (ALDACTONE) 25 mg tablet Take 1 tablet by mouth every afternoon. - olopatadine (PATANOL) 0.1 % ophthalmic solution - EYE ITCH RELIEF 0.025 % (0.035 %) ophthalmic solution instill 1 drop into both eyes twice a day if needed - dicyclomine (BENTYL) 10 mg capsule 10 mg. - fluticasone (FLONASE) 50 mcg/actuation nasal spray instill 2 sprays into each nostril once daily at bedtime - fluticasone (FLOVENT HFA) 220 mcg/actuation inhaler Inhale 1 Puff as instructed two times a day. Shake well before use. Rinse mouth after use. - albuterol HFA (PROAIR HFA) 90 mcg/actuation inhaler Inhale 2 Puffs as instructed every 4 hours as needed. - levothyroxine (SYNTHROID) 25 mcg tablet Take 1 tablet by mouth once daily. Take on empty stomach. For thyroid. - pantoprazole DR (PROTONIX) 40 mg tablet Take 1 tablet by mouth twice daily. Take on empty stomach, 1/2 hr before meal. - omeprazole (PRILOSEC) 40 mg capsule Take 1 capsule by mouth once daily. - hydrocortisone 2.5 % cream Apply 1 application to affected area twice daily as needed (Apply sparingly to rash of hands, arms, legs for 1 week.). - colestipol (COLESTID) 1 gram tablet Take 1 g by mouth once daily. - nitroglycerin sublingual (NITROQUICK) 0.4 mg SL [...] mask of choice, HUMIDITY. LIFETIME SUPPLIES. DME: [facility] Problem List As Of Date 02/25/2023 Noted Resolved Complete spontaneous without mention o*01/01/2005 [...] Obesity, Class III, BMI 40-49.9 (morbid obesity*07/27/2017 Stage 3a chronic kidney disease (HCC) [N18.31] 04/08/2021 Dermatophytosis of nail [B35.1] 04/08/2021 10/08/2021 Atypical chest pain [R07.89] 04/08/2021 Bile-induced gastritis [K29.60] 04/08/2021 Colon polyp [K63.5] 07/17/2020 Subclinical hypothyroidism [E03.8] 11/29/2022 Right renal atrophy [N26.1] 01/27/2023 Encounter Status:Closed by RAFFAELE MUSTAFA on 02/25/23 [facility] Telephone (KMMNTR) STALINLIZZY ([id number]) 1965 F CHT Date Time Provider Department 02/25/23 RAFFAELE MUSTAFA KMMNTR During your visit today, we recorded the following information about you: Raffaele Mustafa MD 02/25/2023 2:30 PM Signed I called patient and clarified her questions that she had sent through [employer]. Will repeat labs in April. Allergies As of Date: 02/25/2023 Noted Allergy Reaction SEASONAL ALLERGIES 04/08/2021 5 - Intolerance Date Reviewed: 02/21/2023 Reviewed by: Qian Suh Ma - Fully Assessed Reason for Visit: Patient Question [7638] Primary Visit Diagnosis:Stage 3a chronic kidney disease (HCC) [N18.31] Order(s):RENAL FUNCTION PANEL [SQRFP] Order #: [id number] FUTURE ALBUMIN/CREAT RATIO RND UR [SQUACR] Order #: [id number] FUTURE PROTEIN CREATININE RATIO [SQPRATIO] Order #: [id number] FUTURE URINALYSIS, WITH MICROSCOPIC [SQUAWMIC] Order #: [id number] FUTURE Prescriptions as of 02/25/2023 - traMADol (ULTRAM) 50 mg tablet Take 1 tablet by mouth every 6 hours as needed for pain. - spironolactone (ALDACTONE) 25 mg tablet Take 1 tablet by mouth every afternoon. - olopatadine (PATANOL) 0.1 % ophthalmic solution - EYE ITCH RELIEF 0.025 % (0.035 %) ophthalmic solution instill 1 drop into both eyes twice a day if needed - dicyclomine (BENTYL) 10 mg capsule 10 mg. - fluticasone (FLONASE) 50 mcg/actuation nasal spray instill 2 sprays into each nostril once daily at bedtime - fluticasone (FLOVENT HFA) 220 mcg/actuation inhaler Inhale 1 Puff as instructed two times a day. Shake well before use. Rinse mouth after use. - albuterol HFA (PROAIR HFA) 90 mcg/actuation inhaler Inhale 2 Puffs as instructed every 4 hours as needed. - levothyroxine (SYNTHROID) 25 mcg tablet Take 1 tablet by mouth once daily. Take on empty stomach. For thyroid. - pantoprazole DR (PROTONIX) 40 mg tablet Take 1 tablet by mouth twice daily. Take on empty stomach, 1/2 hr before meal. - omeprazole (PRILOSEC) 40 mg capsule Take 1 capsule by mouth once daily. - hydrocortisone 2.5 % cream Apply 1 application to affected area twice daily as needed (Apply sparingly to rash of hands, arms, legs for 1 week.). - colestipol (COLESTID) 1 gram tablet Take 1 g by mouth once daily. - nitroglycerin sublingual (NITROQUICK) 0.4 mg SL [...] mask of choice, HUMIDITY. LIFETIME SUPPLIES. DME: [facility] Problem List As Of Date 02/25/2023 Noted Resolved Complete spontaneous without mention o*01/01/2005 [...] Obesity, Class III, BMI 40-49.9 (morbid obesity*07/27/2017 Stage 3a chronic kidney disease (HCC) [N18.31] 04/08/2021 Dermatophytosis of nail [B35.1] 04/08/2021 10/08/2021 Atypical chest pain [R07.89] 04/08/2021 Bile-induced gastritis [K29.60] 04/08/2021 Colon polyp [K63.5] 07/17/2020 Subclinical hypothyroidism [E03.8] 11/29/2022 Right renal atrophy [N26.1] 01/27/2023 Encounter Status:Closed by RAFFAELE MUSTAFA on 02/25/23 [facility] CNOVon 02-21-2023 CNOV Office Visit (BRIAN ) LIZZY GANT ([id number]) 1965 F T Date Time Provider Department 02/21/23 2:30 PM FRANK HYATT During your visit today, we recorded the following information about you: Frank Hyatt MD 03/20/2023 4:14 PM Signed Frank Hyatt MD Department of Orthopaedics Orthopaedics [address] [place] [id number] Dept: [phone] Dept February 21, 2023 CHIEF COMPLAINT: Established [...] is just going to take some time. . Lizzy Gant was advised as to contrast therapies and/or to take analgesics/anti-inflam matories as needed and all contraindications were reviewed. OBJECTIVE: Ms. Lizzy Gant is a pleasant 58 year old [...] Imaging: IMPRESSION: No acute pathology. Bony demineralization. [employer]: [employer] Transcribe Date/Time: Feb 24 2023 9:11A [...] EGD 07/17/2020 LAPS SURG CHOLECYSTECTOMY W/CHOLANGIOGRAPHY 07/22/2020 [facility] LEFT HEART CATH,PERCUTANEOUS 01/23/2019 L AND [...] mouth once daily. potassium chloride SR (MICRO-K) (more content not included)... Normal [facility] TSH SerPl-aCncon 02-21-2023 TSH Qn 3.480 m[IU]/L Normal 0.270-4.200 [facility] Comment on above: Order Comment: Speci men Type: BLOOD SPECIMEN Ordering Facility: [facility] Address: [address] [place] [address] Performed By: #### 5 8410-2 #### [facility] CLIA [id number] [address] [place] [address] [place] [address] [place] XR KNEE 4V AP/PA BOTH+LAT/ME R RTon 02-21-2023 XR KNEE 4V AP/PA BOTH+LAT/LAMONT RT * * *Final Report* * * DATE OF EXAM: Feb 21 2023 2:22PM WRX [id number] - XR KNEE 4V AP/PA BOTH+LAT/LAMONT RT / PROCEDURE REASON: Right knee pain, unspecified chronicity * * * * Physician Interpretation * * * * EXAM TITLE: XR KNEE 4V AP/PA BOTH+LAT/LAMONT RT EXAM DATE/TIME: 02/21/2023 2:22 PM COMPARISON: X-ray knee on 10/08/2021 CLINICAL INDICATION/HISTORY: Right knee pain. TECHNIQUE: AP/PA, lateral and sunrise views of the right knee are presented. FINDINGS: No acute fractures or subluxations are noted. Medial compartmental joint space narrowing is demonstrated. There is mild tricompartmental osteophyte formation. There is small/trace of joint effusion. The bones are somewhat osteopenic. There is no significant soft tissue swelling. IMPRESSION: Degenerative changes in the right knee as described above. [employer] Transcribe Date/Time: Feb 23 2023 5:36P Dictated by : CLAUDIO LANGLEY MD This examination was interpreted and the report reviewed and electronically signed by: CLAUDIO LANGLEY MD on Feb 23 2023 5:38PM EST [id number] Normal [facility] XR TIBIA FIBULA 2V AP/LAT RI GHTon 02-21-2023 [facility] XR TIBIA FIBULA 2V AP/LAT RT on 02-21-2023 XR TIBIA FIBULA 2V AP/LAT RT * * *Final Report* * * DATE [...] medial compartment of the knee. Bony demineralization. IMPRESSION: No acute pathology. Bony demineralization. [employer]: [employer] Transcribe Date/Time: Feb 24 2023 9:11A Dictated by : JENNY BUSTOS MD This examination was interpreted and the report reviewed and electronically signed by: JENNY BUSTOS MD on Feb 24 2023 9:13AM EST [id number] Normal [facility] RENAL ARTERY [facility] n 02-17-2023 RENAL [facility] Non-Invasive Vascular Laboratory [facility] Renal or Mesenteric Duplex Bilateral/Complete Date of service/time: 02/17/2023 10:21:22 AM Name: MS. LIZZY GANT Date of : 1965 Age: 58 years Gender: F Clinical Indication Stage 3a chronic kidney disease. TECHNIQUE -------- A visceral duplex ultrasound examination was performed, including grayscale imaging and color Doppler and spectral Doppler examination of the below mentioned arteries and veins. FINDINGS -------- Aorta at renals PSV: 96 cm/s. EDV: 16 cm/s. Right renal artery origin PSV: 121 cm/s. EDV: 38 cm/s. Right renal artery proximal PSV: 95 cm/s. EDV: 27 cm/s. Right renal artery mid PSV: 131 cm/s. EDV: 42 cm/s. Right renal artery distal PSV: 116 cm/s. EDV: 35 cm/s. Right renal artery to aortic ratio (RAR): 1.4 Right kidney: Size: 8.3 cm. Right parenchyma resistive index and acceleration time Upper pole RI: 0.73 AT: 52 msec. Mid pole RI: 0.74 AT: 16 msec. Lower pole RI: 0.69 AT: 28 msec. Right renal vein patent. Left renal artery origin PSV: 96 cm/s. EDV: 29 cm/s. Left renal artery proximal PSV: 65 cm/s. EDV: 24 cm/s. Left renal artery mid PSV: 120 cm/s. EDV: 39 cm/s. Left renal artery distal PSV: 80 cm/s. EDV: 23 cm/s. Left renal artery to aortic ratio (RAR): 1.2 Left kidney: Size: 8.8 cm. Left parenchyma resistive index and acceleration time Upper pole RI: 0.72 AT: 24 msec. Mid pole RI: 0.68 AT: 24 msec. Lower pole RI: 0.63 AT: 28 msec. Left renal vein patent. IMPRESSION Technically difficult exam due to patient's body habitus. Compared to prior study, No priors. AORTA Aorta is patent at level of the renals RIGHT RENAL Right renal artery: 0-59% stenosis. No evidence of hemodynamically significant stenosis. LEFT RENAL Left renal artery: 0-59% stenosis. No evidence of hemodynamically significant stenosis. Technologist: Danny Gagnon T Ordering physician: RAFFAELE MUSTAFA Interpreting physician: Cornell Elliott MD, SONJA Final CC [facility] Image : [id number] See Link below for Image Normal [facility] ALBUMIN/CREAT RATIO RND URon 01-27-2023 Albumin DL <= 20 mg/L (U) [Mass/Vol] mg/dL Normal [facility] Comment on above: Order Comment: Speci men Type: URINE SPECIMENOrdering Facility: [facility] Address: [address] [place] [address] Performed By: #### U ACR ####[facility] [id number] [address] [place] Albumin/Creatinine (U) [Mass ratio] <19 Normal <30 [facility] Comment on above: Order Comment: Speci men Type: URINE SPECIMENOrdering Facility: [facility] Address: [address] [place] [address] Result Comment: Adul t Male and Female Nephrotic Criteria: <30 mg/g is considered normal to mildly increased 30-300 mg/g is considered moderately increased >300 mg/g is considered severely increased KDIGO. (2013). KDIGO 2012 Clinical Practice Guideline for the Evaluation and Management of Chronic Kidney Disease. Official Journal of the International Society of Nephrology, 3(1), 1-150. Performed By: #### U ACR ####[facility] [id number] [place] [address] [place] Creatinine (U) [Mass/Vol] 64.4 mg/dL Normal 20.0-300.0 [facility] Comment on above: Order Comment: Speci men Type: URINE SPECIMENOrdering Facility: [facility] Address: [address] [place] [address] Performed By: #### U ACR ####[facility] [id number] [address] [place] CNOVon 01-27-2023 CNOV Office Visit (KMMNTR ) LIZZY GANT ([id number]) 1965 F CHT Date Time Provider Department 01/27/23 1:00 PM RAFFAELE MUSTAFA KMMNTR During your visit today, we recorded the following information about you: Weight 117.9 kg Raffaele Mustafa MD 01/27/2023 2:09 PM Signed [facility] NEPHROLOGY AND HYPERTENSION [facility] SERVICE DATE: 01/27/2023 SERVICE TIME: 1:46 PM REASON FOR CONSULT: I am asked to see this patient in consultation for my opinion regarding Chronic Kidney Disease. My recommendations will be communicated by way of shared medical record, fax, or mail. REQUESTING PHYSICIAN: Verito Broderick APRN.[facility] PRIMARY CARE PHYSICIAN: Sam Null MD CHIEF COMPLAINT: Swelling HPI: Ms. Gant [...] Class III, BMI 40-49.9 (morbid obesity) ([facility]) 07/27/2017 Tobacco use disorder Unspecified hearing loss left ear - wears hearing aid Unspecified hypothyroidism PAST SURGICAL HISTORY: PAST SURGICAL HISTORY Procedure Laterality Date COLONOSCOPY SCREENING 07/17/2020 EGD 07/17/2020 LAPS SURG CHOLECYSTECTOMY W/CHOLANGIOGRAPHY 07/22/2020 [facility] LEFT HEART CATH,PERCUTANEOUS 01/23/2019 L AND [...] g by mouth once daily. nitroglycerin sublingual (N (more content not included)... Normal [facility] Lipid 1996 panelon 3 Cholesterol [Mass/Vol] 129 mg/dL Normal <200 [facility] Comment on above: Order Comment: Speci men Type: BLOOD SPECIMENOrdering Facility: [facility] Address: [address] [place] [address] Result Comment: <200 mg/dL, Desirable 200-239 mg/dL, Borderline high >239 mg/dL, High Performed By: #### 2 4362-6, 56677-7 ####[facility] [id number] [place] [address] [place] Cholesterol in HDL [Mass/Vol] 41 mg/dL Normal >39 [facility] Comment on above: Order Comment: Ron jimenez Type: BLOOD SPECIMENOrdering Facility: [facility] Address: [address] [place] [address] Result Comment: 40-5 9 mg/dL, Acceptable >59 mg/dL, High: Negative risk factor for coronary heart disease <40 mg/dL, Low: Positive risk factor for coronary heart disease Performed By: #### 2 4362-6, 78714-6 ####[facility] [id number] [place] [address] [place] Cholesterol in LDL [Mass/Vol] 71 mg/dL Normal <100 [facility] Comment on above: Order Comment: Kaleighi men Type: BLOOD SPECIMENOrdering Facility: [facility] Address: [address] [place] [address] Result Comment: <100 mg/dL, Optimal 100-129 mg/dL, Near optimal/above optimal 130-159 mg/dL, Borderline high 160-189 mg/dL, High >189 mg/dL, Very high Secondary prevention optimal LDL Cholesterol levels are recommended to be < 70 mg/dL Performed By: #### 2 4362-6, 46247-5 ####[facility] [id number] [place] [address] [place] Cholesterol in LDL/Cholesterol in HDL [Mass ratio] 1.73 {ratio} Normal <2.54 [facility] Comment on above: Order Comment: Speci men Type: BLOOD SPECIMENOrdering Facility: [facility] Address: [address] [place] [address] Result Comment: Refe liam: 1. National Cholesterol Education Program ATP III Guideline At-A-Glance Quick Desk Reference: National Heart, Lung, and Blood Amory. National Institutes of Health. 2001: NIH Publication No. 01-3305. 2. An International Atherosclerosis Society position paper: global recommendations for the management of dyslipidemia: executive summary, Atherosclerosis. 2014: 232(2):410-413. Performed By: #### 2 4362-6, 26966-8 ####[facility] [id number] [place] [address] [place] Cholesterol in VLDL [Mass/Vol] 17 mg/dL Normal <30 [facility] Comment on above: Order Comment: Ron jimenez Type: BLOOD SPECIMENOrdering Facility: [facility] Address: [address] [place] [address] Performed By: #### 2 4362-6, 67920-7 ####[facility] [id number] [place] [address] [place] Cholesterol non HDL [Mass/Vol] 88 mg/dL Normal <130 [facility] Comment on above: Order Comment: Ron men Type: BLOOD SPECIMENOrdering Facility: [facility] Address: [address] [place] [address] Result Comment: <130 mg/dL, Optimal 130-159 mg/dL, Near optimal/above optimal 160-189 mg/dL, Borderline high 190-219 mg/dL, High >219 mg/dL, Very high Secondary prevention optimal non HDL Cholesterol levels are recommended to be <100 mg/dL Performed By: #### 2 4362-6, 54484-0 ####[facility] [id number] [place] [address] [place] Cholesterol.total/Ch olesterol in HDL [Mass ratio] 3.15 {ratio} Normal <5.10 [facility] Comment on above: Order Comment: Speci men Type: BLOOD SPECIMENOrdering Facility: [facility] Address: [address] [place] [address] Performed By: #### 2 4362-6, 82146-9 ####[facility]IA [id number] [place] [address] [place] FASTING TIME 12 hrs Normal [facility] Comment on above: Order Comment: Speci men Type: BLOOD SPECIMENOrdering Facility: [facility] Address: [address] [place] [address] Performed By: #### 2 4362-6, 71746-7 ####[facility] [id number] [place] [address] [place] Triglyceride [Mass/Vol] 86 mg/dL Normal <150 [facility] Comment on above: Order Comment: Speci men Type: BLOOD SPECIMENOrdering Facility: [facility] Address: [address] [place] [address] Result Comment: <150 mg/dL, Normal 150-199 mg/dL, Borderline high 200-499 mg/dL, High >499 mg/dL, Very high Performed By: #### 2 4362-6, 41955-7 ####[facility] [id number] [place] [address] [place] Prot/Creat Uron 01-27-2023 Protein/Creatinine (U) [Mass ratio] 0.08 mg/mg Normal <0.15 [facility] Comment on above: Order Comment: Speci men Type: URINE SPECIMENOrdering Facility: [facility] Address: [address] [place] [address] Result Comment: Adul t Proteinuria Categories: <0.15 mg/mg is considered normal to mildly increased 0.15 - 0.50 mg/mg is considered moderately increased >0.50 mg/mg is considered severely increased KDIGO. (2013). KDIGO 2012 Clinical Practice Guideline for the Evaluation and Management of Chronic Kidney Disease. Official Journal of the International Society of Nephrology, 3(1), 1-150. Performed By: #### 2 890-2 ####[facility]IA [id number] [place] [id number] [place] Protein/Creatinine (U) [Mass ratio]on 01-27-2023 Creatinine (U) [Mass/Vol] 62.8 mg/dL Normal 20.0-300.0 [facility] Comment on above: Order Comment: Speci men Type: URINE SPECIMENOrdering Facility: [facility] Address: [address] [place] [address] Performed By: #### 2 890-2 ####[facility] LABIA [id number] [place] [address] [place] Protein (U) [Mass/Vol] 5 mg/dL Normal 0-20 [facility] Comment on above: Order Comment: Speci men Type: URINE SPECIMENOrdering Facility: [facility] Address: [address] [place] [address] Performed By: #### 2 890-2 ####[facility] LABIA [id number] [place] [id number] [place] Renal function 2000 panelon 01-27-2023 Albumin [Mass/Vol] 4.1 g/dL Normal 3.9-4.9 [facility] Comment on above: Order Comment: Speci men Type: BLOOD SPECIMENOrdering Facility: [facility] Address: [address] [place] [address] Performed By: #### 2 4362-6, 21563-8 ####[facility] LABCLIA [id number] [place] [address] [place] Anion gap [Moles/Vol] 18 mmol/L Normal 9-18 [facility] Comment on above: Order Comment: Speci men Type: BLOOD SPECIMENOrdering Facility: [facility] Address: [address] [place] [address] Performed By: #### 2 4362-6, 74352-8 ####[facility] LABCLIA [id number] [place] [address] [place] Calcium [Mass/Vol] 9.9 mg/dL Normal 8.5-10.2 [facility] Comment on above: Order Comment: Speci men Type: BLOOD SPECIMENOrdering Facility: [facility] Address: [address] [place] [address] Performed By: #### 2 4362-6, 32601-1 ####[facility] LABCLIA [id number] [place] [address] [place] Chloride [Moles/Vol] 103 mmol/L Normal 97-105 [facility] Comment on above: Order Comment: Speci men Type: BLOOD SPECIMENOrdering Facility: [facility] Address: [address] [place] [address] Performed By: #### 2 4362-6, 86298-6 ####[facility] LABCLIA [id number] [place] [address] [place] CO2 [Moles/Vol] 18 mmol/L Low 22-30 [facility] Comment on above: Order Comment: Speci men Type: BLOOD SPECIMENOrdering Facility: [facility] Address: [address] [place] [address] Performed By: #### 2 4362-6, 19745-2 ####[facility] LABCLIA [id number] [place] [address] [place] Creatinine [Mass/Vol] 1.07 mg/dL High 0.58-0.96 [facility] Comment on above: Order Comment: Ron jimenez Type: BLOOD SPECIMENOrdering Facility: [facility] Address: [address] [place] [address] Performed By: #### 2 4362-6, 91399-3 ####[facility] LABCLIA [id number] [place] [address] [place] Creatinine and Glomerular filtration rate.predicted panel (S/P/Bld) 60 mL/min/1.73m??? Normal >=60 [facility] Comment on above: Order Comment: Ron jimenez Type: BLOOD SPECIMENOrdering Facility: [facility] Address: [address] [place] [address] Result Comment: Sara mated Glomerular Filtration Rate (eGFR) is calculated using the 2020 CKD-EPI creatinine equation. This equation utilizes serum creatinine, sex, and age as parameters. The creatinine assay has traceable calibration to isotope dilution-mass spectrometry. Refer to KDIGO guidelines for clinical interpretation. In patients with unstable renal function, e.g. those with acute kidney injury, the eGFR may not accurately reflect actual GFR. Performed By: #### 2 4362-6, 55426-5 ####[facility] LABCLIA [id number] [place] [address] [place] Glucose [Mass/Vol] 76 mg/dL Normal 74-99 [facility] Comment on above: Order Comment: Ron jimenez Type: BLOOD SPECIMENOrdering Facility: [facility] Address: [address] [place] [address] Result Comment: The [place] Diabetes Association (ADA) provides guidance for cutoff values for fasting glucose and random glucose. The ADA defines fasting as no caloric intake for at least 8 hours. Fasting plasma glucose results between 100 to 125 mg/dL indicate increased risk for diabetes (prediabetes). Fasting plasma glucose results greater than or equal to 126 mg/dL meet the criteria for diagnosis of diabetes. In the absence of unequivocal hyperglycemia, results should be confirmed by repeat testing. In a patient with classic symptoms of hyperglycemia or hyperglycemic crisis, random plasma glucose results greater than or equal to 200 mg/dL meet the criteria for diagnosis of diabetes. Reference: Standards of Medical Care in Diabetes 2016, [place] Diabetes Association. Diabetes Care. 2016.39(Suppl 1). Performed By: #### 2 4362-6, 20619-0 ####[facility] LABCLIA [id number] [place] [address] [place] Phosphate [Mass/Vol] 2.1 mg/dL Low 2.7-4.8 [facility] Comment on above: Order Comment: Speci men Type: BLOOD SPECIMENOrdering Facility: [facility] Address: [address] [place] [address] Performed By: #### 2 4362-6, 86510-2 ####[facility] LABCLIA [id number] [place] [address] [place] Potassium [Moles/Vol] 4.4 mmol/L Normal 3.7-5.1 [facility] Comment on above: Order Comment: Speci men Type: BLOOD SPECIMENOrdering Facility: [facility] Address: [address] [place] [address] Performed By: #### 2 4362-6, 96030-3 ####[facility] LABCLIA [id number] [place] [address] [place] Sodium [Moles/Vol] 139 mmol/L Normal 136-144 [facility] Comment on above: Order Comment: Speci men Type: BLOOD SPECIMENOrdering Facility: [facility] Address: [address] [place] [address] Performed By: #### 2 4362-6, 68005-7 ####[facility] LABCLIA [id number] [place] [id number] [place] Urea nitrogen [Mass/Vol] 16 mg/dL Normal 7-21 [facility] Comment on above: Order Comment: Speci men Type: BLOOD SPECIMENOrdering Facility: [facility] Address: [address] [place] [address] Performed By: #### 2 4362-6, 46493-0 ####[facility] LABCLIA [id number] [place] [address] [place] Urinalysis complete panel (U )on 01-27-2023 Bacteria LM.HPF (Urine sed) [#/Area] Negative Normal Negative [facility] Comment on above: Order Comment: Speci men Type: URINE SPECIMENOrdering Facility: [facility] Address: [address] [place] [address] Performed By: #### 2 4356-8 ####[facility] LABIA [id number] [place] [address] [place] Bilirubin Ql (U) Negative Normal Negative [facility] Comment on above: Order Comment: Speci men Type: URINE SPECIMENOrdering Facility: [facility] Address: [address] [place] [address] Performed By: #### 2 4356-8 ####[facility] LABIA [id number] [place] [address] [place] Clarity (Unsp spec) Clear Normal Clear [facility] Comment on above: Order Comment: Speci men Type: URINE SPECIMENOrdering Facility: [facility] Address: [address] [place] [address] Performed By: #### 2 4356-8 ####[facility] LABIA [id number] [place] [address] [place] Color (U) Yellow Normal Yellow [facility] Comment on above: Order Comment: Speci men Type: URINE SPECIMENOrdering Facility: [facility] Address: [address] [place] [address] Performed By: #### 2 4356-8 ####[facility] LABIA [id number] [place] [address] [place] Epithelial cells LM.HPF (Urine sed) [#/Area] Few Normal [facility] Comment on above: Order Comment: Speci men Type: URINE SPECIMENOrdering Facility: [facility] Address: [address] [place] [address] Performed By: #### 2 4356-8 ####[facility] LABCLIA [id number] [place] [address] [place] Glucose Test strip (U) [Mass/Vol] Negative Normal Negative [facility] Comment on above: Order Comment: Speci men Type: URINE SPECIMENOrdering Facility: [facility] Address: [address] [place] [address] Performed By: #### 2 4356-8 ####[facility] LABCLIA [id number] [place] [address] [place] Hemoglobin Ql (U) Negative Normal Negative [facility] Comment on above: Order Comment: Speci men Type: URINE SPECIMENOrdering Facility: [facility] Address: [address] [place] [address] Performed By: #### 2 4356-8 ####[facility] LABCLIA [id number] [place] [address] [place] Hyaline casts (Urine sed) [#/Area] 1-3 /LPF Abnormal 0 /LPF [facility] Comment on above: Order Comment: Speci men Type: URINE SPECIMENOrdering Facility: [facility] Address: [address] [place] [address] Performed By: #### 2 4356-8 ####[facility] LABCLIA [id number] [place] [address] [place] Ketones Ql (U) Negative Normal Negative [facility] Comment on above: Order Comment: Speci men Type: URINE SPECIMENOrdering Facility: [facility] Address: [address] [place] [address] Performed By: #### 2 4356-8 ####[facility] LABCLIA [id number] [place] [address] [place] Leukocyte esterase Test strip Ql (U) 2+ Abnormal Negative [facility] Comment on above: Order Comment: Speci men Type: URINE SPECIMENOrdering Facility: [facility] Address: [address] [place] [address] Performed By: #### 2 4356-8 ####[facility] LABCLIA [id number] [place] [address] [place] Nitrite Ql (U) Negative Normal Negative [facility] Comment on above: Order Comment: Speci men Type: URINE SPECIMENOrdering Facility: [facility] Address: [address] [place] [address] Performed By: #### 2 4356-8 ####[facility] LABCLIA [id number] [place] [address] [place] pH (U) 6.0 [pH] Normal <8.5 [facility] Comment on above: Order Comment: Speci men Type: URINE SPECIMENOrdering Facility: [facility] Address: [address] [place] [address] Performed By: #### 2 4356-8 ####[facility] LABCLIA [id number] [place] [address] [place] Protein (U) [Mass/Vol] Negative Normal Negative [facility] Comment on above: Order Comment: Speci men Type: URINE SPECIMENOrdering Facility: [facility] Address: [address] [place] [address] Performed By: #### 2 4356-8 ####[facility] LABCLIA [id number] [place] [address] [place] RBC LM.HPF (Urine sed) [#/Area] 0-2 /HPF Normal 0-2 /HPF [facility] Comment on above: Order Comment: Speci men Type: URINE SPECIMENOrdering Facility: [facility] Address: [address] [place] [address] Performed By: #### 2 4356-8 ####[facility] LABCLIA [id number] [id number] [address] [place] Specific gravity (U) [Rel density] 1.011 Normal 1.005-1.030 [facility] Comment on above: Order Comment: Speci men Type: URINE SPECIMENOrdering Facility: [facility] Address: [address] [place] [address] Performed By: #### 2 4356-8 ####[facility] LABCLIA [id number] [place] [address] [place] Urobilinogen Ql (U) 0.2 EU/dL Normal 0.2-1.0 EU/dL [facility] Comment on above: Order Comment: Speci men Type: URINE SPECIMENOrdering Facility: [facility] Address: [address] [place] [address] Performed By: #### 2 4356-8 ####[facility] LABCLIA [id number] [place] [address] [place] WBC LM.HPF (Urine sed) [#/Area] 0-5 /HPF Normal 0-5 /HPF [facility] Comment on above: Order Comment: Speci men Type: URINE SPECIMENOrdering Facility: [facility] Address: [address] [place] [address] Performed By: #### 2 4356-8 ####[facility] LABCLIA [id number] [place] [address] [place] US KIDNEY/BLADDERon 12-04-19 [facility] CBC panel Auto (Bld)on 11-17 Erythrocyte distribution width (RBC) [Ratio] 13.8 % 11.5 - 15.0 % [facility] Hematocrit (Bld) [Volume fraction] 43.2 % 36.0 - 46.0 % [facility] Hemoglobin (Bld) [Mass/Vol] 14.2 g/dL 11.5 - 15.5 g/dL [facility] MCH (RBC) [Entitic mass] 28.5 pg 26.0 - 34.0 pg [facility] MCHC (RBC) [Mass/Vol] 32.9 g/dL 30.5 - 36.0 g/dL [facility] MCV (RBC) [Entitic vol] 86.7 fL 80.0 - 100.0 fL [facility] Nucleated RBC (Bld) [#/Vol] <0.01 k/uL [facility] Platelet mean volume (Bld) [Entitic vol] 12.0 fL 9.0 - 12.7 fL [facility] Platelets (Bld) [#/Vol] 187 10*3/uL 150 - 400 k/uL [facility] RBC (Bld) [#/Vol] 4.98 10*6/uL 3.90 - 5.2 0 m/uL [facility] WBC (Bld) [#/Vol] 7.93 10*3/uL 3.70 - 11. 00 k/uL [facility] XR Knee - right 4 [employer]son IMPRESSION: Findings are suggestive of mild degenerative changes in the right knee. [employer]: [employer]AHIR[employer] Transcribe Date/Time: Oct 09 2021 3:56P Dictated by : CLAUDIO LANGLEY MD This examination was interpreted and the report reviewed and electronically signed by: CLAUDIO LANGLEY MD on Oct 09 2021 4:02PM EST [facility]_DO_NOT_USE _DIVISION OF RADIOLOGY * * *Final Report* * * DATE [...] There is no significant soft tissue swelling. [facility]_DO_NOT_USE _DIVISION OF RADIOLOGY Provider, [facility] - 10/09/2021 * * *Final Report* * * DATE [...] There is no significant soft tissue swelling. IMPRESSION IMPRESSION: Findings are suggestive of mild degenerative changes in the right knee. [employer]: [employer] Transcribe Date/Time: Oct 09 2021 3:56P Dictated by : CLAUDIO LANGLEY MD This examination was interpreted and the report reviewed and electronically signed by: CLAUDIO LANGLEY MD on Oct 09 2021 4:02PM EST [facility] XR Knee - right 4 ViewsOrder ed By: [facility] Provider on 10-09-2021 [facility] XR Knee - right 4 [employer] Radiology Study observation (narrative) [facility] Vital Signs Date Time Vital Sign Value Performing Clinician Dexter martinez 12-12-2023 15:09-0400 Body mass index (BMI) [Ratio] 43.2 kg/m2 Gunner Sutton APRN.CNP Work Phone: [facility] 12-12-2023 15:09-0400 Body weight 108.86 kg Gunner Sutton APRN.[employer] Work Phone: [facility] 11-18-2023 11:24-0400 Body mass index (BMI) [Ratio] 46.05 kg/m2 Annette Lockwood APRN.[employer] Work Phone: [facility] 11-18-2023 11:24-0400 Body weight 116.05 kg Annette Lockwood APRN.CNP Work Phone: [facility] 11-18-2023 11:24-0400 Diastolic blood pressure 76 mm[Hg] Annette Lockwood APRN.[employer] Work Phone: [facility] 11-18-2023 11:24-0400 Heart rate 60 /min Annette Lockwood 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 Work Phone: [facility] 11-18-2023 11:24-0400 Systolic blood pressure 114 mm[Hg] Annette Lockwood 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 Work Phone: [facility] 10-14-2023 13:24-0400 Body mass index (BMI) [Ratio] 45.95 kg/m2 Sam Null MD Work Phone: [facility] 10-14-2023 13:24-0400 Body temperature 97.11 [degF] Sam Null MD Work Phone: [facility] 10-14-2023 13:24-0400 Body weight 115.8 kg Sam Null MD Work Phone: [facility] 10-14-2023 13:24-0400 Diastolic blood pressure 68 mm[Hg] Sam Null MD Work Phone: [facility] 10-14-2023 13:24-0400 Heart rate 90 /min Sam Null MD Work Phone: [facility] 10-14-2023 13:24-0400 Respiratory rate 18 /min Sam Null MD Work Phone: [facility] 10-14-2023 13:24-0400 SaO2% (BldA) [Mass fraction] 98 % Sam Null MD Work Phone: [facility] 10-14-2023 13:24-0400 Systolic blood pressure 116 mm[Hg] Sam Null MD Work Phone: [facility] 10-13-2023 10:56-0400 Body height 158.[address] Work Phone: [facility] 10-13-2023 10:56-0400 Body mass index (BMI) [Ratio] 45.93 kg/m2 Gala Schrader RD Work Phone: [facility] 10-13-2023 10:56-0400 Body weight 115.76 kg Gala Alexanderkarla ARELLANO Work Phone: [facility] 09-20-2023 11:37-0400 Body height 158.8 cm Gunner Lesley 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 Work Phone: [facility] 09-20-2023 11:37-0400 Body mass index (BMI) [Ratio] 46.41 kg/m2 Gunner Lesley 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 Work Phone: [facility] 09-20-2023 11:37-0400 Body weight 117.03 kg Gunner Lesley 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 Work Phone: [facility] 09-20-2023 11:37-0400 Diastolic blood pressure 74 mm[Hg] Gunner Lesley 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 Work Phone: [facility] 09-20-2023 11:37-0400 Heart rate 63 /min Gunner Lesley 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 Work Phone: [facility] 09-20-2023 11:37-0400 Systolic blood pressure 128 mm[Hg] Gunner Lesley 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 Work Phone: [facility] 09-08-2023 10:26-0400 Body height 157.5 cm Mary Jo Herzog MD Work Phone: [facility] 09-08-2023 10:26-0400 Body mass index (BMI) [Ratio] 47.37 kg/m2 Mary Jo Herzog MD Work Phone: [facility] 09-08-2023 10:26-0400 Body weight 117.48 kg Mary Jo Herzog MD Work Phone: [facility] 09-08-2023 10:26-0400 Diastolic blood pressure 77 mm[Hg] Mary Jo Herzog MD Work Phone: [facility] 09-08-2023 10:26-0400 Heart rate 63 /min Mary Jo Herzog MD Work Phone: [facility] 09-08-2023 10:26-0400 Systolic blood pressure 129 mm[Hg] Mary Jo Herzog MD Work Phone: [facility] 08-24-2023 11:50-0400 Body height 158.8 cm Raffaele Mustafa MD Work Phone: [facility] 08-24-2023 11:50-0400 Body mass index (BMI) [Ratio] 46.36 kg/m2 Raffaele Mustafa MD Work Phone: [facility] 08-24-2023 11:50-0400 Body weight 116.9 kg Raffaele Mustafa MD Work Phone: [facility] 07-21-2023 14:02-0400 Diastolic blood pressure 63 mm[Hg] Mary Jo Herzog MD Work Phone: [facility] 07-21-2023 14:02-0400 Heart rate 72 /min Mary Jo Herzog MD Work Phone: [facility] 07-21-2023 14:02-0400 Respiratory rate 16 /min Mary Jo Herzog MD Work Phone: [facility] 07-21-2023 14:02-0400 SaO2% (BldA) [Mass fraction] 99 % Mary Jo Herzog MD Work Phone: [facility] 07-21-2023 14:02-0400 Systolic blood pressure 107 mm[Hg] Mary Jo Herzog MD Work Phone: [facility] 07-21-2023 13:45-0400 Body temperature 97.39 [degF] Mary Jo Herzog MD Work Phone: [facility] 07-15-2023 13:38-0400 Body mass index (BMI) [Ratio] 45.53 kg/m2 Sam Null MD Work Phone: [facility] 07-15-2023 13:38-0400 Body weight 116.57 kg Sam Null MD Work Phone: [facility] 07-15-2023 13:38-0400 Diastolic blood pressure 78 mm[Hg] Sam Null MD Work Phone: [facility] 07-15-2023 13:38-0400 Heart rate 64 /min Sam Null MD Work Phone: [facility] 07-15-2023 13:38-0400 Respiratory rate 16 /min Sam Null MD Work Phone: [facility] 07-15-2023 13:38-0400 SaO2% (BldA) [Mass fraction] 98 % Sam Null MD Work Phone: [facility] 07-15-2023 13:38-0400 Systolic blood pressure 122 mm[Hg] Sam Null MD Work Phone: [facility] 07-06-2023 13:00-0400 Body height 160 cm Mary Jo Herzog MD Work Phone: [facility] 07-06-2023 13:00-0400 Body mass index (BMI) [Ratio] 45.92 kg/m2 Mary Jo Herzog MD Work Phone: [facility] 07-06-2023 13:00-0400 Body weight 117.57 kg Mary Jo Herzog MD Work Phone: [facility] 07-06-2023 13:00-0400 Diastolic blood pressure 82 mm[Hg] Mary Jo Herzog MD Work Phone: [facility] 07-06-2023 13:00-0400 Heart rate 63 /min Mary Jo Herzog MD Work Phone: [facility] 07-06-2023 13:00-0400 Systolic blood pressure 122 mm[Hg] Mary Jo Herzog MD Work Phone: [facility] 04-14-2023 13:25-0500 Body height 160 cm Raffaele Mustafa MD Work Phone: [facility] 04-14-2023 13:25-0500 Body weight 113.99 kg Raffaele Mustafa MD Work Phone: [facility] 04-14-2023 13:25-0500 Diastolic blood pressure 72 mm[Hg] Raffaele Mustafa MD Work Phone: [facility] 04-14-2023 13:25-0500 Heart rate 64 /min Raffaele Mustafa MD Work Phone: [facility] 04-14-2023 13:25-0500 SaO2% (BldA) [Mass fraction] 97 % Raffaele Mustafa MD Work Phone: [facility] 04-14-2023 13:25-0500 Systolic blood pressure 115 mm[Hg] Raffaele Mustafa MD Work Phone: [facility] 01-27-2023 13:09-0500 Body weight 117.94 kg Raffaele Mustafa MD Work Phone: [facility] 11-17-2022 16:58-0400 Body height 157.5 cm Verito Older 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 Work Phone: [facility] 11-17-2022 16:58-0400 Body weight 118.39 kg Verito Older 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 Work Phone: [facility] 11-17-2022 16:58-0400 Diastolic blood pressure 74 mm[Hg] Verito Older 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 Work Phone: [facility] 11-17-2022 16:58-0400 Heart rate 72 /min Verito Older 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 Work Phone: [facility] 11-17-2022 16:58-0400 Respiratory rate 20 /min Verito Older 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 Work Phone: [facility] 11-17-2022 16:58-0400 SaO2% (BldA) [Mass fraction] 98 % Verito Older 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 Work Phone: [facility] 11-17-2022 16:58-0400 Systolic blood pressure 106 mm[Hg] Verito Older 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 Work Phone: [facility] Encounters Encounter Date Encounter Type Care Provider Facility Start: 12-27-2023 End: 12-27-2023 Refill Gunner Sutton 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 Work Phone: [facility] Comment on above: Refill Request Start: 12-26-2023 End: 12-30-2023 Telephone encounter Annette Lockwood APRN.[employer] Work Phone: [facility] Start: 12-13-2023 End: 12-13-2023 Telephone encounter Mary Jo Herzog MD Work Phone: [facility] Comment on above: Medical Clearance Start: 12-12-2023 End: 12-12-2023 Patient encounter procedure Gunner Sutton CECELIA[employer] Work Phone: [facility] Comment on above: Class 3 severe obesi ty due to excess calories with serious comorbidity and body mass index (BMI) of 45.0 to 49.9 in adult (HCC) (Primary Dx); VETO treated with BiPAP; Chronic kidney disease, unspecified CKD stage; Atrial fibrillation, unspecified type (HCC) Start: 12-12-2023 End: 12-12-2023 Telemedicine consultation with patient Gunner Sutton CECELIA.GREEN CHAIN PULLER Work Phone: [facility] Start: 12-12-2023 End: 12-12-2023 ambulatory GUNNER LESLEY Facility:[facility] Start: 11-22-2023 End: 11-22-2023 Telephone encounter Sofía Multani APRN.[employer] P[employer]ER Work Phone: [facility] Comment on above: Results Start: 11-18-2023 End: 11-18-2023 ambulatory ANNETTE LOCKWOOD Facility:[facility] Start: 11-18-2023 End: 11-18-2023 Patient encounter procedure Annette Lockwood APRN.[employer] P[employer]ER Work Phone: Kidney [facility] Comment on above: Stage 3a chronic kid morenita disease (HCC) (Primary Dx); Vitamin D deficiency; Encounter for long-term (current) use of NSAIDs; Class 3 severe obesity with serious comorbidity and body mass index (BMI) of 45.0 to 49.9 in adult, unspecified obesity type (HCC) Start: 11-07-2023 End: 11-07-2023 Orders Only Gunner Sutton APRN.GRE[employer] PULLER Work Phone: [facility] Comment on above: Vitamin D deficiency (Primary Dx) Start: 11-04-2023 End: 11-04-2023 ambulatory GUNNER SUTTON Facility:[facility] Start: 10-14-2023 End: 10-14-2023 Patient encounter procedure [facility] Comment on above: Gastroesophageal ref lux disease, unspecified whether esophagitis present (Primary Dx); Mild intermittent asthma without complication; Screening for depression; Encounter for screening examination for other mental health and behavioral disorders; Atypical chest pain; Obesity, Class III, BMI 40-49.9 (morbid obesity) ([facility]); Need for vaccination Start: 10-14-2023 Telephone encounter Kai pillai MD Work Phone: Kidney Medicine Comment on above: Results; Abnormal Ki dney Tests Start: 10-14-2023 End: 10-14-2023 ambulatory SAM NULL Facility:[facility] Start: 10-13-2023 End: 10-13-2023 Patient encounter procedure Gala Schrader RD Work Phone: [facility] Comment on above: New Patient Start: 10-13-2023 End: 10-13-[address] Work Phone: [facility] Start: 10-10-2023 Orders Only Gunner Sutton APRN .[employer] P[employer]ER Work Phone: [facility] Comment on above: Vitamin D deficiency (Primary Dx); Folate deficiency Start: 10-07-2023 End: 10-07-2023 ambulatory SAM NULL Facility:[facility] Start: 09-20-2023 End: 09-20-2023 ambulatory LUCRECIA NULL Facility:[facility] Start: 09-20-2023 End: 09-20-2023 Patient encounter procedure Gunner Sutton APRN.[employer] P[employer]ER Work Phone: [facility] Comment on above: Class 3 severe obesi ty due to excess calories with serious comorbidity and body mass index (BMI) of 45.0 to 49.9 in adult (HCC) (Primary Dx); Gastroesophageal reflux disease without esophagitis; Paraesophageal hernia; Irritable bowel syndrome, unspecified type; Atrial fibrillation, unspecified type (HCC); Hyperlipidemia, unspecified hyperlipidemia type; Lymphedema; VETO treated with BiPAP; Asthma, unspecified asthma severity, unspecified whether complicated, unspecified whether persistent; Arthralgia, unspecified joint; Stage 3 chronic kidney disease, unspecified whether stage 3a or 3b CKD (HCC); Hypothyroidism, unspecified type Start: 09-12-2023 Patient encounter procedure [facility] Start: 09-08-2023 Telephone encounter Sofía saleh APRN.CNP Work Phone: [facility] Comment on above: Patient Update (Brent atric Benefits Investigation ) Start: 09-08-2023 End: 09-08-2023 ambulatory SAM NULL Facility:[facility] Start: 09-08-2023 End: 09-08-2023 Patient encounter procedure Mary Jo Herzog MD Work Phone: [facility] Comment on above: Gastroesophageal ref lux disease without esophagitis (Primary Dx); Paraesophageal hernia; Class 3 severe obesity with serious comorbidity and body mass index (BMI) of 45.0 to 49.9 in adult, unspecified obesity type (HCC); Atrial fibrillation, unspecified type (HCC); Uncomplicated asthma, unspecified asthma severity, unspecified whether persistent; Stage 3 chronic kidney disease, unspecified whether stage 3a or 3b CKD (HCC); Hypothyroidism, unspecified type Start: 09-03-2023 Refill Stephanie tarango PA-C Work Phone: Orthopaedics Comment on above: Refill Request Start: 08-24-2023 End: 08-24-2023 ambulatory SAM NULL Facility:[facility] Start: 08-24-2023 End: 08-24-2023 Office outpatient visit 25 minutes Raffaele Mustafa MD Work Phone: Kidney Medicine [facility] Comment on above: Stage 3a chronic kid morenita disease (HCC) (Primary Dx); Obesity, Class III, BMI 40-49.9 (morbid obesity) ([facility]); BMI 45.0-49.9, adult ([facility]); Gastroesophageal reflux disease without esophagitis Start: 08-17-2023 ambulatory Sam jose MD Work Phone: Internal Medicine [place] [id number] Start: 08-11-2023 Refill Stephanie Uriostegui emelina PA-Cameron Work Phone: Orthopaedics Comment on above: Refill Request Start: 07-26-2023 Telephone encounter Raffaele Mustafa MD Work Phone: Internal Med/Peds [place] Comment on above: Results Start: 07-21-2023 ambulatory SAM NULL [facility] lity:[facility] Start: 07-21-2023 End: 07-21-2023 Subsequent hospital visit by physician Mary Jo Herzog MD Work Phone: [facility] Comment on above: Esophageal dysphagia [R13.19] Gastroesophageal ref lux disease, unspecified whether esophagitis present [K21.9] Start: 07-15-2023 End: 07-15-2023 ambulatory SAM NULL Facility:[facility] Start: 07-15-2023 End: 07-15-2023 Patient encounter procedure Sam Null MD Work Phone: Internal Medicine [place] Comment on above: Subclinical hypothyr oidism (Primary Dx); Mild intermittent asthma without complication; Eczema, unspecified type; Obesity, Class III, BMI 40-49.9 (morbid obesity) ([facility]); No appetite Start: 07-13-2023 End: 07-13-2023 ambulatory SAM NULL Facility:[facility] Start: 07-11-2023 Telephone encounter Sam sykes MD Work Phone: Internal Medicine [place] Comment on above: Patient Question Start: 07-07-2023 Telephone encounter Mary Jo rowland MD Work Phone: [facility] Comment on above: Appointment (EGD/Bra vo/Mano) Start: 07-06-2023 Telephone encounter Mary Jo rowland MD Work Phone: [facility] Comment on above: Bariatric Seminar Start: 07-06-2023 End: 07-06-2023 Patient encounter jhonny Herzog MD Work Phone: [facility] Comment on above: Gastroesophageal ref lux disease, unspecified whether esophagitis present (Primary Dx); Class 3 severe obesity with serious comorbidity and body mass index (BMI) of 45.0 to 49.9 in adult, unspecified obesity type (HCC); Paraesophageal hernia; Stage 3 chronic kidney disease, unspecified whether stage 3a or 3b CKD (HCC); Hypothyroidism, unspecified type; Esophageal dysphagia Start: 07-06-2023 End: 07-06-2023 ambulatory SAM NULL Facility:[facility] Start: 07-01-2023 Telephone encounter Raffaele Mustafa MD Work Phone: Kidney Medicine Comment on above: Patient Question Start: 05-30-2023 Refill Frank Hyatt MD Work Phone: Orthopaedics Comment on above: Refill Request Start: 05-11-2023 Telephone encounter Raffaele Mustafa MD Work Phone: Kidney Medicine Comment on above: Patient Question Start: 04-14-2023 End: 04-14-2023 Office outpatient visit 40 minutes Raffaele Mustafa MD Work Phone: Kidney Medicine Comment on above: Stage 3a chronic kid morenita disease (HCC) (Primary Dx); Elevated serum creatinine; Right renal atrophy; Obesity, Class III, BMI 40-49.9 (morbid obesity) (HCC); BMI 45.0-49.9, adult (HCC) Start: 04-14-2023 End: 04-14-2023 ambulatory RAFFAELE MUSTAFA Facility:[facility] Start: 03-21-2023 End: 03-21-2023 ambulatory SAM NULL Facility:[facility] Start: 02-25-2023 Telephone encounter Raffaele Mustafa MD Work Phone: Kidney Medicine Comment on above: Patient Question Start: 02-21-2023 End: 02-21-2023 ambulatory SAM NULL Facility:[facility] Start: 02-21-2023 End: 02-21-2023 Subsequent hospital visit by physician [facility] Work Phone: Radiology Comment on above: Multiple leg contusi ons, right, initial encounter [S80.11XA] Start: 02-21-2023 End: 02-21-2023 Patient encounter procedure Frank Hyatt MD Work Phone: Orthopaedics Comment on above: Multiple leg contusi ons, right, initial encounter (Primary Dx); Acute pain of right knee; Primary osteoarthritis of right knee Start: 02-21-2023 End: 02-21-2023 ambulatory SAM NULL Facility:[facility] Start: 02-21-2023 End: 02-21-2023 Subsequent hospital visit by physician X[facility] Work Phone: Radiology Comment on above: Right knee pain, uns pecified chronicity [M25.561] Start: 02-17-2023 End: 02-17-2023 ambulatory [facility] Facility:[facility] Start: 02-14-2023 Orders Only Frank Hyatt MD Work Phone: Orthopaedics Comment on above: Right knee pain, uns pecified chronicity (Primary Dx) Start: 01-27-2023 End: 01-27-2023 ambulatory [facility] Facility:[facility] Start: 01-27-2023 End: 01-27-2023 Office outpatient new 60 minutes Raffaele Mustafa MD Work Phone: Kidney Medicine Comment on above: Stage 3a chronic kid morenita disease (HCC) (Primary Dx); Elevated serum creatinine; Right renal atrophy; Obesity, Class III, BMI 40-49.9 (morbid obesity) (HCC); BMI 45.0-49.9, adult (HCC); Gastroesophageal reflux disease without esophagitis Start: 12-27-2022 Refill Stephanie tarango PA-C Work Phone: Orthopaedics Comment on above: Refill Request Start: 12-03-2022 End: 12-03-2022 Subsequent hospital visit by physician [facility] Work Phone: Radiology Comment on above: Renal insufficiency [N28.9] Start: 11-17-2022 End: 11-17-2022 Patient encounter procedure Verito Older 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[employer] PULLER Work Phone: Internal Medicine [place] Comment on above: Wellness examination (Primary Dx); Weight gain; Uncomplicated asthma, unspecified asthma severity, unspecified whether persistent; Gastroesophageal reflux disease, unspecified whether esophagitis present; Irritable bowel syndrome with diarrhea; Obesity, Class III, BMI 40-49.9 (morbid obesity) ([facility]); VETO on CPAP; Encounter for immunization Start: 11-17-2022 End: 11-17-2022 Patient encounter status Verito Older 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[employer] P[employer]ER Work Phone: [facility] Work Phone: Start: 11-02-2022 Refill Sam jose MD Work Phone: Family Medicine [place] Comment on above: Refill Request Start: 10-08-2022 Refill Stephanie Vetovit z PA-C Work Phone: Orthopaedics Comment on above: Refill Request Start: 09-15-2022 ambulatory Sam jose MD Work Phone: Internal Medicine [facility] Start: 09-14-2022 Refill Stephanie Vetovit z PA-C Work Phone: Orthopaedics Comment on above: Refill Request Start: 06-02-2022 Telephone encounter Sam sykes MD Work Phone: Internal Medicine [place] Comment on above: Orders Start: 04-19-2022 Telephone encounter Verito Older 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[employer] P[employer]ER Work Phone: Family Medicine [place] Comment on above: Orders Start: 04-12-2022 End: 04-12-2022 ambulatory Verito Older 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[employer] P[employer]ER Work Phone: Internal Medicine [place] Comment on above: Chronic pain of righ t knee (Primary Dx); Impaired mobility; Obesity, Class III, BMI 40-49.9 (morbid obesity) ([facility]); VETO on CPAP; Bile-induced gastritis; Gastroesophageal reflux disease, unspecified whether esophagitis present; Chronic renal impairment, stage 3a ([facility]) Start: 04-12-2022 End: 04-12-2022 Telemedicine consultation with patient Verito Broderick BALTAZAR Work Phone: [facility] Start: 02-05-2022 Telephone encounter Frank gooden MD Work Phone: Orthopaedics Comment on above: Patient Update Start: 12-23-2021 Telephone encounter Frank gooden MD Work Phone: Orthopaedics Comment on above: Forms Start: 12-22-2021 Telephone encounter Sam sykes MD Work Phone: Internal Medicine [place] Comment on above: Forms Start: 12-08-2021 Telephone encounter Frank gooden MD Work Phone: Orthopaedics Comment on above: Patient Update Start: 10-26-2021 End: 10-26-2021 Patient encounter procedure Frank Hyatt MD Work Phone: Orthopaedics Comment on above: Patellofemoral insta bility of right knee with pain (Primary Dx); Effusion of right knee Start: 10-08-2021 End: 10-08-2021 Subsequent hospital visit by physician [facility] Work Phone: Radiology Comment on above: Effusion of right kn ee [M25.461] Start: 09-09-2021 ambulatory Sam jose MD Work Phone: Internal Medicine [facility] [place] Start: 08-31-2021 Orders Only Sam jose MD Work Phone: Internal Medicine [place] Start: 08-26-2021 Orders Only Sam jose MD Work Phone: Internal Medicine [place] Start: 04-12-2017 Ambulatory SAM NULL Facili ty:A Procedures Date Procedure Procedure Detail Performing Clinician Start: 11-04-2023 Lipid 1996 panel - S leda or Plasma Gunner Sutton APRN.[employer] P[employer]ER Work Phone: Start: 10-14-2023 Adult depression scr eening assessment [facility] Provider Start: 08-24-2023 Urnls dip stick/tabl et rgnt auto w/o microscopy Raffaele Mustafa MD Work Phone: Start: 07-21-2023 Esophagoscp rig neil soral hypopharynx crv harrison Herzog MD Work Phone: Start: 01-27-2023 Lipid 1995 panel - S leda or Plasma Frank Hyatt MD Work Phone: Start: 12-03-2022 Us retroperitoneal r eal time w/image complete Verito Older 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[employer] CH[employer] P[employer]ER Work Phone: Start: 11-17-2022 INFLUENZA VACCINE, A GE 6 MO - 64 YR, QUADRIVALENT (AFLURIA, FLULAVAL, FLUZONE) Verito Older 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[employer] CH[employer] P[employer]ER Work Phone: Start: 10-08-2021 Radiologic exam knee complete 4/more views Sam Null MD Work Phone: Start: 04-08-2021 Adult depression scr eening assessment Sam Null MD Work Phone: Start: 07-17-2020 Colonoscopy Sam Lopez MD Work Phone: Start: 05-27-2020 Lipid 1995 panel - S leda or Plasma Stephanie George PA-C Work Phone: Plan of Treatment Date Care Activity Detail Author Start: 11-17-2032 Urine microalbumin profile [facility] Start: 11-03-2028 Lipid panel Lipid Screening [facility] Start: 01-28-2028 Lipid 1996 panel - Serum or Plasma Lipid Screening [facility] Start: 01-28-2028 Lipid panel Lipid Screening [facility] Start: 07-12-2026 Diabetes Screening Diabetes Screenin g [facility] Start: 11-25-2025 Diabetes Screening Diabetes Screenin g [facility] Start: 07-17-2025 Colonoscopy COLONOSCOPY [facility] Start: 07-17-2025 COLORECTAL CANCER SCREENING COLORECTAL CANCER SCREENING [facility] Start: 07-17-2025 Screening for malign ant neoplasm of colon [facility] Start: 05-27-2025 Lipid 1996 panel - Serum or Plasma Lipid Screening [facility] Start: 05-27-2025 LIPID SCREEN LIPID SCREEN [facility] Start: 10-13-2024 Annual PCP Team Kick Press Setter brad Disease Visit Annual PCP Team Chronic Disease Visit [facility] Start: 10-13-2024 Anxiety Screening Anxiety Screening [facility] Start: 10-13-2024 Depression Screening Depression Scre ening [facility] Start: 10-06-2024 Creatinine measurement Serum Creatin ine [facility] Start: 07-14-2024 Annual PCP Team Kick Press Setter brad Disease Visit Annual PCP Team Chronic Disease Visit [facility] Start: 07-12-2024 Complete blood count Hemoglobin/Ishan tocrit [facility] Start: 07-12-2024 Creatinine measurement Serum Creatin ine [facility] Start: 05-17-2024 End: 08-16-2024 25-hydroxyvitamin D3 [Mass/volume] in Serum or Plasma VITAMIN D 25 HYDROXY Lab Routine Stage 3a chronic kidney disease (HCC) Vitamin D deficiency Expected: 05/17/2024 (Approximate), Expires: 08/16/2024 [facility] Comment on above: Expected: 05/17/2024 (Approximate), Expires: 08/16/2024 Start: 05-17-2024 End: 08-16-2024 CBC panel - Blood by Automated count COMPLETE BLOOD COUNT Lab Routine Stage 3a chronic kidney disease (HCC) Vitamin D deficiency Expected: 05/17/2024 (Approximate), Expires: 08/16/2024 [facility] Comment on above: Expected: 05/17/2024 (Approximate), Expires: 08/16/2024 Start: 05-17-2024 End: 08-16-2024 Renal function 2000 panel - Serum or Plasma RENAL FUNCTION PANEL Lab Routine Stage 3a chronic kidney disease (HCC) Vitamin D deficiency Expected: 05/17/2024 (Approximate), Expires: 08/16/[address] [facility] Work Phone: Comment on above: Expected: 05/17/2024 (Approximate), Expires: 08/16/2024 Start: 04-16-2024 End: 04-16-2024 Patient encounter procedure 04/16/2024 1:00 PM EST Office Visit [facility] [address] [place] [address] Sam Null MD [address] [place] [address] 6 month follow up [facility] Medicine [place] Comment on above: 6 month follow up Start: 03-21-2024 Annual PCP Team Kick Press Setter brad Disease Visit Annual PCP Team Chronic Disease Visit [facility] Start: 03-21-2024 Screening for malign ant neoplasm of cervix [facility] Comment on above: Postponed from 01/12 (Declined at this time) Postponed from 09/22 (Declined at this time) Postponed from 09/22 (Declined at this time) Start: 03-20-2024 DIABETES SCREEN DIABETES SCREEN [facility] Start: 02-27-2024 End: 02-27-2024 Patient encounter procedure 02/27/2024 11:40 AM EST Office Visit Kidney Medicine [facility] [address] [place] [address] Rosalba Rothman MD [address] [place] [address] 6 MONTH FOLLOW UP Kidney Medicine [facility] Comment on above: 6 MONTH FOLLOW UP Start: 02-01-2024 End: 02-01-2024 Patient encounter procedure [facility] Comment on above: NEW - Mo #5 - Careso urce / 6 Mo / Danny / green Mo #5 - Caresource / 6 Mo / Danny / green Start: 01-28-2024 Creatinine measurement Serum Creatin ine [facility] Start: 01-28-2024 Serum Creatinine Serum Creatinine [facility] Start: 01-24-2024 End: 01-24-2024 Patient encounter procedure 01/24/2024 3:00 PM EST Office Visit Podiatry [address] [place], [place] [id number] Jackson Fabian [address] [place], [place] [id number] diabetic nail concern Podiatry Comment on above: diabetic nail concer n Start: 01-23-2024 End: 01-23-2024 Patient encounter procedure 01/23/2024 2:00 PM EST Distance Health [facility] [address] [place] [address] Anabela Steel, ARAM [address] [facility] [facility] [address], [place] [id number] New Patient - Bariatric Program [facility] Comment on above: New Patient - Bariat sarahi Program Start: 01-20-2024 End: 01-20-2024 Patient encounter procedure 01/20/2024 2:00 PM EST Office Visit Kidney Medicine [facility] [address] [place] [address] Annette Lockwood, 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GREEN CHAIN PULLER [address] [place] [address] 6 MONTH FOLLOW UP Kidney Medicine [facility] Comment on above: 6 MONTH FOLLOW UP Start: 01-05-2024 End: 01-05-2024 Patient encounter procedure 01/05/2024 3:00 PM EDT Education [facility] [address] [place] [address] [address] NEW - Mo #4 - Caresource / 6 Mo / Danny / yang [facility] Comment on above: NEW - Mo #4 - Careso urce / 6 Mo / Danny / yang Start: 01-02-2024 End: 04-02-2024 Parathyrin.intact [Mass/volume] in Serum or Plasma PTH INTACT Lab Routine Vitamin D deficiency Expected: 01/02/2024, Expires: 04/02/[address] [facility] Work Phone: Comment on above: Expected: 01/02/2024 , Expires: 04/02/2024 Start: 12-26-2023 End: 12-26-2023 Patient encounter procedure 12/26/2023 2:00 PM EDT Office Visit Kidney Medicine [facility] [address] [place] [address] Rosalba Rothman MD [address] [place] [address] 6 MONTH FOLLOW UP Kidney Medicine [facility] Comment on above: 6 MONTH FOLLOW UP Start: 12-13-2023 Hzv zoster vacc recombinant adjuvanted im njx ZOSTER VACCINE, RECOMBINANT (SHINGRIX) Immunization/Injection Routine Need for vaccination Expected: 12/13/2023 (Approximate) [facility] Work Phone: Comment on above: Expected: 12/13/2023 (Approximate) Start: 12-13-2023 End: 12-13-2023 Orders Only [facility] [place] Comment on above: Need for vaccination NEW - Caresource / 6 Mo / Danny / green/ confirmation call- lm (mo) Start: 12-12-2023 End: 12-12-2023 Patient encounter procedure 12/12/2023 3:00 PM EDT [facility] DEPART[facility] [address] [place] [address] Gunner Sutton, 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GREEN CHAIN PULLER [address] [place] [address] NEW - Mo #3 - Caresource / 6 Mo / Danny / green [facility] Comment on above: NEW - Mo #3 - Careso urce / 6 Mo / Danny / green Start: 12-09-2023 Shingrix Vaccine (2 of 2) Shingrix Vaccine (2 of 2) [facility] Start: 12-09-2023 End: 12-09-2023 Patient encounter procedure [facility] Comment on above: NEW - Caresource / 6 Mo / Danny / green NEW - Caresource / 6 Mo / Danny / green/ confirmation call- lm (mo) Start: 11-26-2023 Serum Creatinine Serum Creatinine [facility] Start: 11-24-2023 End: 11-24-2023 Patient encounter procedure 11/24/2023 1:00 PM EDT Office Visit Internal Medicine [facility] [address] [place] [address] Sam Null MD [address] [place] [address] Annual exam [facility] [place] Comment on above: Annual exam Start: 11-23-2023 End: 11-23-2023 Patient encounter procedure [facility] Comment on above: NEW - Mo #2 - Careso urce / 6 Mo / Danny / green NEW - Mo #3 - Careso urce / 6 Mo / Danny / green Start: 11-21-2023 End: 02-20-2024 25-hydroxyvitamin D3 [Mass/volume] in Serum or Plasma VITAMIN D 25 HYDROXY Lab Routine Vitamin D deficiency Expected: 11/21/2023, Expires: 02/20/[address] [facility] Work Phone: Comment on above: Expected: 11/21/2023 , Expires: 02/20/2024 Start: 11-21-2023 End: 02-20-2024 Folate [Mass/volume] in Serum or Plasma FOLATE, SERUM Lab Routine Folate deficiency Expected: 11/21/2023, Expires: 02/20/2024 [facility] Comment on above: Expected: 11/21/2023 , Expires: 02/20/2024 Start: 11-21-2023 End: 02-20-2024 Parathyrin.intact [Mass/volume] in Serum or Plasma PTH INTACT Lab Routine Vitamin D deficiency Expected: 11/21/2023, Expires: 02/20/2024 [facility] Comment on above: Expected: 11/21/2023 , Expires: 02/20/2024 Start: 11-18-2023 ANNUAL PCP TEAM ISOTOPE TECHNICIAN BRAD DISEASE VISIT ANNUAL PCP TEAM CHRONIC DISEASE VISIT [facility] Start: 11-18-2023 COVID-19 VACCINE (#1) COVID-19 VACCI NE (#1) [facility] Comment on above: Postponed from 07/12 (Declined at this time) Start: 11-18-2023 Covid-19 Vaccine () Covid-19 Vaccine () [facility] Comment on above: Postponed from 11/12 (Declined at this time) Start: 11-18-2023 Hemoglobin/Hematocrit Hemoglobin/Hem atocrit [facility] Start: 11-18-2023 HEPATITIS B (1 of 3 - 3-dose series) HEPATITIS B (1 of 3 - 3-dose series) [facility] Comment on above: Postponed from 01/12 (Declined at this time) Start: 11-18-2023 Hepatitis B Vaccine (1 of 3 - 3-dose series) Hepatitis B Vaccine (1 of 3 - 3-dose series) [facility] Comment on above: Postponed from 01/12 (Declined at this time) Start: 11-16-2023 End: 11-16-2023 Patient encounter procedure 11/16/2023 3:00 PM EDT Education [facility] 1 [place] [address] [facility], [address] [address] Mo #3 - Caresource / 6 Mo / Danny / yang [facility] Comment on above: Mo #3 - Caresource / 6 Mo / Danny / yang Start: 11-13-2023 Covid-19 Vaccine ( season) Covid-19 Vaccine ( season) [facility] Start: 11-13-2023 Covid-19 Vaccine ( season) Covid-19 Vaccine ( season) [facility] Start: 11-13-2023 Influenza vaccination Influenza Vacc ine (#1) [facility] Start: 10-14-2023 End: 10-14-2023 Patient encounter procedure 10/14/2023 1:20 PM EDT Office Visit [facility] [address] [id number] Sam Null MD [address] [place] [address] 3 month follow up [facility] Comment on above: 3 month follow up Start: 10-13-2023 End: 01-12-2024 Renal function 2000 panel - Serum or Plasma RENAL FUNCTION PANEL Lab Routine Stage 3a chronic kidney disease (HCC) Expected: 10/13/2023 (Approximate), Expires: 01/12/[address] [facility] Work Phone: Comment on above: Expected: 10/13/2023 (Approximate), Expires: 01/12/2024 Start: 10-13-2023 End: 10-13-2023 Patient encounter procedure [facility] Comment on above: 6 month f/u SNA 1:1 Start: 09-20-2023 End: 12-20-2023 25-hydroxyvitamin D3 [Mass/volume] in Serum or Plasma VITAMIN D 25 HYDROXY Lab Routine Class 3 severe obesity due to excess calories with serious comorbidity and body mass index (BMI) of 45.0 to 49.9 in adult (HCC) Expected: 09/20/2023, Expires: 12/20/2023 [facility] Comment on above: Expected: 09/20/2023 , Expires: 12/20/2023 Start: 09-20-2023 End: 12-20-2023 Cobalamin (Vitamin B12) [Mass/volume] in Serum or Plasma VITAMIN B12 Lab Routine Class 3 severe obesity due to excess calories with serious comorbidity and body mass index (BMI) of 45.0 to 49.9 in adult (HCC) Expected: 09/20/2023, Expires: 12/20/2023 [facility] Comment on above: Expected: 09/20/2023 , Expires: 12/20/2023 Start: 09-20-2023 End: 12-20-2023 Ferritin [Mass/volume] in Serum or Plasma FERRITIN Lab Routine Class 3 severe obesity due to excess calories with serious comorbidity and body mass index (BMI) of 45.0 to 49.9 in adult (HCC) Expected: 09/20/2023, Expires: 12/20/2023 [facility] Comment on above: Expected: 09/20/2023 , Expires: 12/20/2023 Start: 09-20-2023 End: 12-20-2023 Folate [Mass/volume] in Serum or Plasma FOLATE, SERUM Lab Routine Class 3 severe obesity due to excess calories with serious comorbidity and body mass index (BMI) of 45.0 to 49.9 in adult ([facility]) Expected: 09/20/2023, Expires: 12/20/2023 [facility] Comment on above: Expected: 09/20/2023 , Expires: 12/20/2023 Start: 09-20-2023 End: 12-20-2023 Iron and Iron binding capacity panel - Serum or Plasma IRON AND TIBC Lab Routine Class 3 severe obesity due to excess calories with serious comorbidity and body mass index (BMI) of 45.0 to 49.9 in adult ([facility]) Expected: 09/20/2023, Expires: 12/20/2023 [facility] Comment on above: Expected: 09/20/2023 , Expires: 12/20/2023 Start: 09-20-2023 End: 12-20-2023 Lipid 1996 panel - Serum or Plasma LIPID PANEL BASIC Lab Routine Class 3 severe obesity due to excess calories with serious comorbidity and body mass index (BMI) of 45.0 to 49.9 in adult ([facility]) Expected: 09/20/2023, Expires: 12/20/2023 [facility] Comment on above: Expected: 09/20/2023 , Expires: 12/20/2023 Start: 09-20-2023 End: 12-20-2023 NICOTINE & METAB, UR NICOTINE & METAB, UR Lab Routine Class 3 severe obesity due to excess calories with serious comorbidity and body mass index (BMI) of 45.0 to 49.9 in adult ([facility]) Expected: 09/20/2023, Expires: 12/20/2023 [facility] Comment on above: Expected: 09/20/2023 , Expires: 12/20/2023 Start: 09-20-2023 End: 12-20-2023 Parathyrin.intact [Mass/volume] in Serum or Plasma PTH INTACT Lab Routine Class 3 severe obesity due to excess calories with serious comorbidity and body mass index (BMI) of 45.0 to 49.9 in adult ([facility]) Expected: 09/20/2023, Expires: 12/20/2023 [facility] Comment on above: Expected: 09/20/2023 , Expires: 12/20/2023 Start: 09-20-2023 End: 12-20-2023 Retinol [Mass/volume] in Serum or Plasma VITAMIN A/RETINOL Lab Routine Class 3 severe obesity due to excess calories with serious comorbidity and body mass index (BMI) of 45.0 to 49.9 in adult ([facility]) Expected: 09/20/2023, Expires: 12/20/2023 [facility] Comment on above: Expected: 09/20/2023 , Expires: 12/20/2023 Start: 09-20-2023 End: 12-20-2023 Thyrotropin [Units/volume] in Serum or Plasma THYROID STIMULATING HORMONE Lab Routine Class 3 severe obesity due to excess calories with serious comorbidity and body mass index (BMI) of 45.0 to 49.9 in adult ([facility]) Expected: 09/20/2023, Expires: 12/20/2023 [facility] Comment on above: Expected: 09/20/2023 , Expires: 12/20/2023 Start: 09-20-2023 End: 12-20-2023 TOXICOLOGY SCREEN, ROUTINE URINE TOXICOLOGY SCREEN, ROUTINE URINE Lab Routine Class 3 severe obesity due to excess calories with serious comorbidity and body mass index (BMI) of 45.0 to 49.9 in adult ([facility]) Expected: 09/20/2023, Expires: 12/20/2023 [facility] Comment on above: Expected: 09/20/2023 , Expires: 12/20/2023 Start: 09-20-2023 End: 12-20-2023 VITAMIN B1 (THIAMINE), WHOLE BLOOD VITAMIN B1 (THIAMINE), WHOLE BLOOD Lab Routine Class 3 severe obesity due to excess calories with serious comorbidity and body mass index (BMI) of 45.0 to 49.9 in adult ([facility]) Expected: 09/20/2023, Expires: 12/20/2023 [facility] Comment on above: Expected: 09/20/2023 , Expires: 12/20/2023 Start: 09-20-2023 End: 12-20-2023 Zinc [Mass/volume] in Serum or Plasma ZINC BLD Lab Routine Class 3 severe obesity due to excess calories with serious comorbidity and body mass index (BMI) of 45.0 to 49.9 in adult ([facility]) Expected: 09/20/2023, Expires: 12/20/[address] [facility] Work Phone: Comment on above: Expected: 09/20/2023 , Expires: 12/20/2023 Start: 09-20-2023 End: 09-20-2023 Patient encounter procedure 09/20/2023 11:00 AM EDT Office Visit [facility] 1 [place] [address] Gunner Sutton APRN.[employer]ER [address] [place], [place] [id number] Mo #1 - [employer] / 6 Mo / Danny / green [facility] Comment on above: Mo #1 - [employer] / 6 Mo / Danny / green Start: 09-08-2023 End: 09-08-2023 Patient encounter procedure 09/08/2023 10:00 AM EDT Office Visit [facility] 1 [place], [place] [id number] Mary Jo Herzog MD [address] [id number] HBC-Follow up on EGD w/kirk and manometry [facility] Comment on above: HBC-Follow up on EGD w/kirk and manometry Start: 08-24-2023 End: 11-23-2023 Urinalysis complete panel - Urine URINALYSIS, WITH MICROSCOPIC Lab Routine Stage 3a chronic kidney disease (HCC) Expected: 08/24/2023, Expires: 11/23/2023 [facility] Comment on above: Expected: 08/24/2023 , Expires: 11/23/2023 Start: 08-24-2023 End: 08-24-2023 Patient encounter procedure 08/24/2023 11:40 AM EDT Office Visit Kidney Medicine [facility] [address] [place] [address] [place] [address] [place] [id number] 6 month f/u Kidney Medicine [facility] Comment on above: 6 month f/u Start: 08-18-2023 End: 08-18-2023 Patient encounter procedure 08/18/2023 11:40 AM EDT Office Visit Kidney Medicine [address] [place] [place] [address] Raffaele Mustafa MD [address] [place] [address] 6 month f/u [facility] Comment on above: 6 month f/u Start: 08-11-2023 End: 08-11-2023 Patient encounter procedure 08/11/2023 11:00 AM EDT Office Visit [facility] [address] [facility] [place], [place] [phone] Mary Jo Herzog MD [address] [facility] [address] [place], [place] [id number] Follow up on EGD w/kirk and manometry [facility] Comment on above: Follow up on EGD w/b ravo and manometry Start: 07-21-2023 End: 07-21-2023 Patient encounter procedure 07/21/2023 1:00 PM EDT Appointment [facility] [address] [place] [address] Mary Jo Herzog MD [address] [facility] [address] [place] [address] [facility] Start: 07-21-2023 End: 07-21-2023 Admission to same day surgery center 07/21/2023 12:00 PM EDT - 07/21/2023 1:00 PM EDT Surgery [facility] [address] [place] [address] Mary Jo Herzog MD 1 [facility] [address] [place], [place] [phone] ESOPHAGEAL MANOMETRY [facility] Comment on above: ESOPHAGEAL MANOMETRY Start: 07-21-2023 End: 07-21-2023 Esophageal motility study w/interp&rpt ESOPHAGEAL MANOMETRY Esophageal dysphagia 07/21/2023 12:00 PM EDT [facility] Start: 07-21-2023 Subsequent hospital visit by physician 07/21/2023 12:00 PM EDT Hospital Encounter [facility] 1 [place] [address] Mary Jo Herzog MD 1 [facility] [address] [place], [place] [phone] Esophageal dysphagia [R13.19] [facility] Comment on above: Esophageal dysphagia [R13.19] Start: 07-15-2023 End: 07-15-2023 Patient encounter procedure 07/15/2023 1:20 PM EDT Office Visit [facility] [address] [place] [address] Verito Cash, 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[employer] P[employer]ER [address] [place], [place] [phone] See phone encounter, fatigue, thirst, questions DM [facility] Comment on above: See phone encounter, fatigue, thirst, questions DM Start: 07-12-2023 End: 10-11-2023 Hemoglobin A1c in Blood HEMOGLOBIN A1C Lab Routine Hyperglycemia Expected: 07/12/2023, Expires: 10/11/[address] [facility] Work Phone: Comment on above: Expected: 07/12/2023 , Expires: 10/11/2023 Start: 06-09-2023 End: 09-08-2023 ALBUMIN/CREAT RATIO RND UR ALBUMIN/CREAT RATIO RND UR Lab Routine Stage 3a chronic kidney disease (HCC) Expected: 06/09/2023 (Approximate), Expires: 09/08/[address] [facility] Work Phone: Comment on above: Expected: 06/09/2023 (Approximate), Expires: 09/08/2023 Start: 06-09-2023 End: 09-08-2023 Protein/Creatinine [Mass Ratio] in Urine PROTEIN CREATININE RATIO Lab Routine Stage 3a chronic kidney disease (HCC) Expected: 06/09/2023 (Approximate), Expires: 09/08/[address] [facility] Work Phone: Comment on above: Expected: 06/09/2023 (Approximate), Expires: 09/08/2023 Start: 06-09-2023 End: 09-08-2023 Renal function 2000 panel - Serum or Plasma RENAL FUNCTION PANEL Lab Routine Stage 3a chronic kidney disease (HCC) Expected: 06/09/2023 (Approximate), Expires: 09/08/[address] [facility] Work Phone: Comment on above: Expected: 06/09/2023 (Approximate), Expires: 09/08/2023 Start: 06-09-2023 End: 09-08-2023 Urinalysis complete panel - Urine URINALYSIS, WITH MICROSCOPIC Lab Routine Stage 3a chronic kidney disease (HCC) Expected: 06/09/2023 (Approximate), Expires: 09/08/[address] [facility] Work Phone: Comment on above: Expected: 06/09/2023 (Approximate), Expires: 09/08/2023 Start: 05-13-2023 End: 08-12-2023 CBC panel - Blood by Automated count CBC Lab Routine Stage 3a chronic kidney disease (HCC) Expected: 05/13/2023, Expires: 08/12/[address] [facility] Work Phone: Comment on above: Expected: 05/13/2023 , Expires: 08/12/2023 Start: 05-13-2023 End: 08-12-2023 Renal function 2000 panel - Serum or Plasma RENAL FUNCTION PANEL Lab Routine Stage 3a chronic kidney disease (HCC) Expected: 05/13/2023, Expires: 08/12/[address] [facility] Work Phone: Comment on above: Expected: 05/13/2023 , Expires: 08/12/2023 Start: 04-28-2023 End: 07-28-2023 ALBUMIN/CREAT RATIO RND UR ALBUMIN/CREAT RATIO RND UR Lab Routine Stage 3a chronic kidney disease (HCC) Expected: 04/28/2023 (Approximate), Expires: 07/28/[address] [facility] Work Phone: Comment on above: Expected: 04/28/2023 (Approximate), Expires: 07/28/2023 Start: 04-28-2023 End: 07-28-2023 Protein/Creatinine [Mass Ratio] in Urine PROTEIN CREATININE RATIO Lab Routine Stage 3a chronic kidney disease (HCC) Expected: 04/28/2023 (Approximate), Expires: 07/28/[address] [facility] Work Phone: Comment on above: Expected: 04/28/2023 (Approximate), Expires: 07/28/2023 Start: 04-28-2023 End: 07-28-2023 Renal function 2000 panel - Serum or Plasma RENAL FUNCTION PANEL Lab Routine Stage 3a chronic kidney disease (HCC) Expected: 04/28/2023 (Approximate), Expires: 07/28/[address] [facility] Work Phone: Comment on above: Expected: 04/28/2023 (Approximate), Expires: 07/28/2023 Start: 04-28-2023 End: 07-28-2023 Urinalysis complete panel - Urine URINALYSIS, WITH MICROSCOPIC Lab Routine Stage 3a chronic kidney disease (HCC) Expected: 04/28/2023 (Approximate), Expires: 07/28/[address] [facility] Work Phone: Comment on above: Expected: 04/28/2023 (Approximate), Expires: 07/28/2023 Start: 04-12-2023 ANNUAL PCP TEAM ISOTOPE TECHNICIAN BRAD DISEASE VISIT ANNUAL PCP TEAM CHRONIC DISEASE VISIT [facility] Start: 04-12-2023 SHINGRIX VACCINE (1 of 2) SHINGRIX VACCINE (1 of 2) [facility] Comment on above: Postponed from 01/12 (Declined at this time) Start: 03-14-2023 Behavioral Health Screening Behavioral Health Screening [facility] Start: 03-14-2023 Depression Assessment Depression Ass essment [facility] Start: 01-27-2023 End: 04-28-2023 ALBUMIN/CREAT RATIO RND UR [facility] Work Phone: Comment on above: Expected: 01/27/2023 , Expires: 04/28/2023 Start: 01-27-2023 End: 04-28-2023 Lipid 1996 panel - Serum or Plasma [facility] Work Phone: Comment on above: Expected: 01/27/2023 , Expires: 04/28/2023 Start: 01-27-2023 End: 04-28-2023 Protein/Creatinine [Mass Ratio] in Urine [facility] Work Phone: Comment on above: Expected: 01/27/2023 , Expires: 04/28/2023 Start: 01-27-2023 End: 04-28-2023 Renal function 2000 panel - Serum or Plasma [facility] Work Phone: Comment on above: Expected: 01/27/2023 , Expires: 04/28/2023 Start: 01-27-2023 End: 04-28-2023 Urinalysis complete panel - Urine [facility] Work Phone: Comment on above: Expected: 01/27/2023 , Expires: 04/28/2023 Start: 11-17-2022 End: 01-17-2023 Comprehensive metabolic 2000 panel - Serum or Plasma [facility] Work Phone: Comment on above: Expected: 11/17/2022 , Expires: 01/17/2023 Start: 11-17-2022 End: 01-17-2023 Hemoglobin A1c in Blood [facility] Work Phone: Comment on above: Expected: 11/17/2022 , Expires: 01/17/2023 Start: 11-17-2022 End: 01-17-2023 Thyrotropin [Units/volume] in Serum or Plasma TSH BLD Lab Routine Weight gain Expected: 11/17/2022, Expires: 01/17/[address] [facility] Work Phone: Comment on above: Expected: 11/17/2022 , Expires: 01/17/2023 Start: 11-12-2022 Influenza vaccination INFLUENZA (#1) [facility] Start: 10-08-2022 ANNUAL PCP TEAM ISOTOPE TECHNICIAN BRAD DISEASE VISIT ANNUAL PCP TEAM CHRONIC DISEASE VISIT [facility] Start: 04-12-2022 End: 06-12-2022 CBC panel - Blood by Automated count CBC Lab Routine Obesity, Class III, BMI 40-49.9 (morbid obesity) (HCC) Chronic renal impairment, stage 3a (HCC) Expected: 04/12/2022, Expires: 06/12/[address] [facility] Work Phone: Comment on above: Expected: 04/12/2022 , Expires: 06/12/2022 Start: 04-12-2022 End: 06-12-2022 Comprehensive metabolic 2000 panel - Serum or Plasma COMP METABOLIC PANEL Lab Routine Obesity, Class III, BMI 40-49.9 (morbid obesity) (HCC) Chronic renal impairment, stage 3a (HCC) Expected: 04/12/2022, Expires: 06/12/[address] [facility] Work Phone: Comment on above: Expected: 04/12/2022 , Expires: 06/12/2022 Start: 04-08-2022 Adult depression screening assessment DEPRESSION SCREENING [facility] Start: 04-08-2022 ANNUAL PCP TEAM ISOTOPE TECHNICIAN BRAD DISEASE VISIT ANNUAL PCP TEAM CHRONIC DISEASE VISIT [facility] Start: 04-08-2022 COVID-19 VACCINE (#1) COVID-19 VACCI NE (#1) [facility] Comment on above: Postponed from 01/12 (Declined at this time) Postponed from 07/12 (Declined at this time) Start: 03-20-2022 HEMOGLOBIN/HEMATOCRIT HEMOGLOBIN/HEM ATOCRIT [facility] Start: 03-20-2022 SERUM CREATININE SERUM CREATININE Cl [facility] Start: 03-14-20[address] [facility] Start: 11-12-2021 Influenza vaccination [facility] Start: 03-14-2021 [address] [facility] Start: 01-12-2014 SHINGRIX VACCINE (1 of 2) SHINGRIX VACCINE (1 of 2) [facility] Start: 09-22-2009 PAP TESTING PAP TESTING [facility] Start: 09-22-2009 Screening for malign ant neoplasm of cervix Pap Testing [facility] Start: 01-12-2009 COLOGUARD (FIT-DNA) COLOGUARD (FIT-D NA) [facility] Start: 01-12-[address] COLONOGRAPHY [facility] Start: 01-12-2009 FECAL OCCULT BLOOD FECAL OCCULT BLOO D [facility] Start: 01-12-2009 Screening for malign ant neoplasm of colon [facility] Start: 01-12-2009 SIGMOIDOSCOPY SIGMOIDOSCOPY [facility] Start: 2004 Mammography [facility] Start: 2004 Screening for malign ant neoplasm of breast Mammogram Screening [facility] Start: 01-12-1994 HPV TESTING HPV TESTING [facility] Start: 01-12-1994 Screening for malign ant neoplasm of cervix HPV Testing [facility] Start: 01-12-1983 Urine microalbumin profile DTAP,TDAP,TD (1 - Tdap) [facility] Start: 01-12-1982 Anxiety Screening Anxiety Screening [facility] Start: 01-12-1982 Depression Screening Depression Scre ening [facility] Start: 01-12-1970 PNEUMOCOCCAL (1 - PCV) PNEUMOCOCCAL (1 - PCV) [facility] Start: 1964 COVID-19 VACCINE (#1) COVID-19 VACCI NE (#1) [facility] Start: 1964 HEPATITIS B (1 of 3 - 3-dose series) HEPATITIS B (1 of 3 - 3-dose series) [facility] End: 07-05-2024 EGD - THERAPEUTIC, EUS, OR TUBE INTERVENTIONS EGD - THERAPEUTIC, EUS, OR TUBE INTERVENTIONS Endoscopy Routine Gastroesophageal reflux disease, unspecified whether esophagitis present 1 Occurrences starting 07/06/2023 until 07/05/[address] [facility] Work Phone: Comment on above: 1 Occurrences starti ng 07/06/2023 until 07/05/2024 End: 10-15-2023 MEREDITH SCREENING [facility] Radiology Routine Encounter for screening mammogram for breast cancer 1 Occurrences starting 09/15/2022 until 10/15/[address] [facility] Work Phone: Comment on above: 1 Occurrences starti ng 09/15/2022 until 10/15/2023 End: 07-05-2024 Manometry Study observation Narrative MANOMETRY ESOPHAGEAL Endoscopy Routine Esophageal dysphagia 1 Occurrences starting 07/06/2023 until 07/05/2024 [facility] Comment on above: 1 Occurrences starti ng 07/06/2023 until 07/05/2024 End: 09-15-2024 MG Breast Screening [facility] Radiology Routine Encounter for screening mammogram for breast cancer 1 Occurrences starting 08/17/2023 until 09/15/[address] [facility] Work Phone: Comment on above: 1 Occurrences starti ng 08/17/2023 until 09/15/2024 End: 10-09-2022 Screening mammography bi 2-view breast inc cad [facility] Radiology Routine Encounter for screening mammogram for breast cancer 1 Occurrences starting 09/09/2021 until 10/09/[address] [facility] Work Phone: Comment on above: 1 Occurrences starti ng 09/09/2021 until 10/09/2022 SURGICAL PATH[address] [facility] Work Phone: Comment on above: Release Upon Orderin g for 1 Occurrences starting 07/21/2023, 1 completed End: 10-19-2024 US Abdomen RUQ US ABD RIGHT UPPER QUADRANT Radiology Routine Class 3 severe obesity due to excess calories with serious comorbidity and body mass index (BMI) of 45.0 to 49.9 in adult (HCC) 1 Occurrences starting 09/20/2023 until 10/19/2024 [facility] Comment on above: 1 Occurrences starti ng 09/20/2023 until 10/19/2024 End: 01-28-2024 US RENAL ARTERY [facility] US RENAL [facility] V[facility] Lab Routine Stage 3a chronic kidney disease (HCC) 1 Occurrences starting 01/27/2023 until 01/28/[address] [facility] Work Phone: Comment on above: 1 Occurrences starti ng 01/27/2023 until 01/28/2024 End: 03-15-2024 XR KNEE GENERAL 4V AP BOTH/PA BOTH/LAT/MERC RIGHT XR KNEE GENERAL 4V AP BOTH/PA BOTH/LAT/MERC RIGHT Radiology Routine Right knee pain, unspecified chronicity 1 Occurrences starting 02/14/2023 until 03/15/[address] [facility] Work Phone: Comment on above: 1 Occurrences starti ng 02/14/2023 until 03/15/2024 XR KNEE GENERAL 4V A P BOTH/PA BOTH/LAT/MERC RIGHT XR KNEE GENERAL 4V AP BOTH/PA BOTH/LAT/MERC RIGHT Radiology Routine Right knee pain, unspecified chronicity 02/21/2023 2:22 PM EST [facility] Work Phone: XR TIBIA FIBULA 2V AP/LAT RIGHT XR TIBIA FIBULA 2V AP/LAT RIGHT Radiology Routine Multiple leg contusions, right, initial encounter Acute pain of right knee 02/21/2023 4:22 PM EST [facility] Work Phone: [facility] Immunizations Immunization Date Immunization Notes Care Provider Eusebia birch 10-14-2023 zoster vaccine recombinant [facility] Provider [facility] 11-17-2022 influenza, injectabl e, quadrivalent, contains preservative Verito Older 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[employer] Work Phone: [facility] 11-17-2022 tetanus toxoid, redu mamie diphtheria toxoid, and acellular pertussis vaccine, adsorbed Verito Older 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[employer] P[employer]ER Work Phone: [facility] 11-17-2022 influenza virus vaccine, unspecified formulation [facility] Provider [facility] 10-08-2021 pneumococcal (PCV20) vaccine, 20 valent (PREVNAR 20) Frank Hyatt MD Work Phone: [facility] Work Phone: 12-19-2019 influenza, seasonal, injectable, preservative free Sam Null MD Work Phone: [facility] Work Phone: 01-15-2019 influenza, seasonal, injectable, preservative free Sam Null MD Work Phone: [facility] Work Phone: 01-12-2019 influenza, seasonal, injectable Sam Null MD Work Phone: [facility] 12-03-2016 influenza, injectabl e, quadrivalent, contains preservative Sam Null MD Work Phone: [facility] Work Phone: Payers Date Payer Category Payer Medicaid [id number] 2017 Medicaid 2017 Medicaid [employer] [id number] 2017-Present [phone] [address] [place] [address] Medicaid [id number] Social History Date Type Detail Facility Start: 04-08-2021 End: 11-18-2023 Tobacco smoking status NHIS Ex-smoker [facility] Start: 05-30-1994 End: 05-30-2009 History of tobacco use Current smoker [facility] Start: 05-30-1994 End: 05-30-2009 History of tobacco use Cigarette Smoker [facility] Start: 04-09-2021 End: 10-08-2021 Alcohol intake Current non-drinker of alcohol (finding) [...] Start: 04-08-2021 Tobacco Comment started age 16. [facility] Start: 1965 Sex Assigned At Not on file [facility] Start: 04-08-2021 End: 11-11-2022 Cigarettes smoked current (pack per day) - Reported 1 [facility] Work Phone: Start: 04-08-2021 End: 11-18-2023 Tobacco use and exposure Smokeless tobacco non-user [facility] Work Phone: Start: 09-28-2021 End: 10-26-2021 Exposure to SARS-CoV-2 (event) Not [...] [facility] Work Phone: Start: 11-17-2022 End: 12-12-2023 Alcohol intake Ex-drinker (finding) [facility] Start: 11-17-2022 Tobacco Comment started age 16 [facility] Goals Date Patient Goal Desired Activity /State Personal health goal Clinical Notes 2010 to 12-30-2023 Telephone Encounter - Annette Lockwood APRN.CNP - 12/30/2023 12:31 PM EDTTelephone Encounter - Annette Lockwood APRN.CNP - 12/30/2023 12:31 PM JANETTGunner Sutton APRN.CNP - 12/12/2023 3:00 PM EDT Note Date & Type Note Facility 12-30-2023 Telephone encounter Note Sent to Feliciano. Annette Lockwood APRN.CNP [facility] 12-30-2023 Miscellaneous Notes Sent to Feliciano. Annette Lockwood APRN.CNP Spoke to patient- Patient wants a prescription states that [facility] will pay for it. Called to advise 2000 units Vitamin D daily. Patient requesting script for financial reasons. Name of Caller: lizzy Relationship to patient: patient Last visit in this department: 11/18/2023 Reason for Call: Other : wants to know what vitamin D supp she should be taking Callback number: [phone] documented in this encounter [facility] 12-30-2023 Telephone encounter Note Spoke to patient- Patient wants a prescription states that [facility] will pay for it. [facility] 12-29-2023 Telephone encounter Note Called to advise 2000 units Vitamin D daily. Patient requesting script for financial reasons. [facility] 12-26-2023 Telephone encounter Note Name of Caller: lizzy Relationship to patient: patient Last visit in this department: 11/18/2023 Reason for Call: Other : wants to know what vitamin D supp she should be taking Callback number: [phone] [facility] 12-13-2023 Telephone encounter Note Pulmonary clearance letter sent/faxed to rBittany Anderson CNP. Cassie Suh RN, BSN Bariatric Np [facility] 12-13-2023 Miscellaneous Notes Pulmonary clearance letter sent/faxed to Brittany Anderson CNP. Cassie Suh RN, BSN Bariatric Np Nephrology Clearance Letter sent/faxed to Annette Lockwood APRN.[employer]. Cassie Suh RN, BSN Bariatric Np Cardiology Clearance letter sent/faxed to Porfirio Jeff APRN.CNP. Cassie Suh RN, BSN Bariatric Np documented in this encounter [facility] 12-13-2023 Telephone encounter Note Nephrology Clearance Letter sent/faxed to Annette Lockwood APRN.ERICK. Cassie Suh RN, BSN Bariatric Np [facility] 12-13-2023 Telephone encounter Note Cardiology Clearance letter sent/faxed to Porfirio Jeff APRN.CNP. Cassie Suh RN, BSN Bariatric Np [facility] 12-12-2023 History of Present illness Narrative [facility] SURGERY CLINIC FOLLOW UP NOTE DISTANCE HEALTH VISIT This Team Access Model visit is a virtual encounter. It required patient-provider interaction for the medical decision making as documented below. Consent was obtained to complete today's distance health visit. I have communicated my name and active licensure. The patient's identity and physical location were verified at the time of this visit. Either the patient or their legal unit support representative has been informed of the risks and benefits of -- and alternatives to -- treatment through a remote evaluation and consents to proceed with the evaluation remotely. HPI: Lizzy Gant a 58 year old female presents for medically supervised weight loss treatment of her obesity related co morbidities. This individual presents for month 3 of 6 required visits. Lizzy Gant weight has decreased since first visit in the program. Lizzy reports doing very well with nutritional recommendations. She has cut out using oil while cooking and bread. She switched to unsweetened almond milk and is eating cottage cheese and Luxembourger yogurt. Her weight is down significantly. She endorses hitting fluid and protein goals daily. She endorses not tracking her diet due to struggling to write things down, however, she can recall quite a bit of her diet. For exercise, she is increasing her walking and staying active in general. Denies recent illnesses, hospitalizations, and medication changes. Denies constipation, diarrhea, abd pain, and reflux symptoms. She recently saw pulmonology who has her back on her BiPAP. Recent ultrasound we ordered showed fatty liver along with possible cirrhosis. She followed up with her GI who ordered a CT scan and lab work that showed pancreatic insufficiency. She now takes Creon and will be having a liver biopsy done on 12/13. HISTORY REVIEWED (electronic chart updated): - medical history - medications - allergies PAST MEDICAL HISTORY Diagnosis Date Asthma 06/13/2008 Atypical chest pain 01/2019 heart cath normal Bile-induced gastritis 04/08/2021 Calcium deposits in tendon and bursa right knee Carpal tunnel syndrome, bilateral 10/16/2015 Chronic cholecystitis 07/22/2020 Chronic midline low back pain without sciatica 07/31/2015 CKD stage 3a, GFR 45-59 ml/min ([facility]) Colon polyp 07/17/2020 Dermatophytosis of the body Edema 06/13/2008 GERD (gastroesophageal reflux disease) 07/29/2010 Hiatal hernia 07/17/2020 medium sized seen on EGD Infectious mononucleosis Irregular menstrual cycle Irritable bowel syndrome with diarrhea 08/04/2015 Morbid obesity with BMI of 45.0-49.9, adult ([facility]) Obesity, Class III, BMI 40-49.9 (morbid obesity) ([facility]) 07/27/2017 Stage 3a chronic kidney disease ([facility]) 04/08/2021 Tobacco use disorder Unspecified hearing loss left ear - wears hearing aid Unspecified hypothyroidism Social: Social History Tobacco Use Smoking status: Former Current packs/day: 0.00 Average packs/day: 1 pack/day for 15.0 years (15.0 ttl pk-yrs) Types: Cigarettes Start date: 05/30/1994 Quit date: 05/30/2009 Years since quittin.5 Smokeless tobacco: Never Tobacco comments: started age 16 Vaping Use Vaping status: Never Used Substance Use Topics Alcohol use: Not Currently Drug use: Never Medications: Current Outpatient Medications Medication Sig CREON 36,000-114,000- 180,000 unit delayed release capsule 1 capsule with meals and at bedtime. 2-3 capsules with meals and 1-2 with snacks hyoscyamine (LEVSIN) 0.125 mg tablet Take 0.125 mg by mouth every 6 hours as needed. 1-2 tablets four times daily as needed albuterol HFA (PROAIR HFA) 90 mcg/actuation inhaler Inhale 2 Puffs as instructed every 4 hours as needed. pantoprazole DR (PROTONIX) 40 mg tablet Take 1 tablet by mouth two times a day. Take on empty stomach, 1/2 hr before meal. omeprazole (PRILOSEC) 40 mg capsule Take 1 capsule by mouth once daily. cholecalciferol, Vitamin D3, (VITAMIN D3) 1,250 mcg (50,000 unit) cap capsule Take 1 capsule by mouth one time a week for 12 doses. Transition to 4,000-5,000 units of Vitamin D [id number] after completing 12 weeks of high-dose therapy. diclofenac, EC, (VOLTAREN) 75 mg EC tablet take 1 tablet by mouth twice a day torsemide (DEMADEX) 20 mg tablet take 1 tablet by mouth twice a day (STOP FUROSEMIDE) levothyroxine (SYNTHROID) 100 mcg tablet Take 1 tablet by mouth once daily. Per [facility]. colestipol (COLESTID) 1 gram tablet Take 2 tablets by mouth two times a day. fluticasone (FLONASE) 50 mcg/actuation nasal spray instill [...] of hands, arms, legs for 1 week.). spironolactone (ALDACTONE) 25 mg tablet Take 1 tablet by mouth every afternoon. Per [facility] olopatadine (PATANOL) 0.1 % ophthalmic solution EYE ITCH RELIEF 0.025 % (0.035 %) ophthalmic solution instill 1 drop into both eyes twice a day if needed dicyclomine (BENTYL) 10 mg capsule 10 mg. nitroglycerin sublingual (NITROQUICK) 0.4 mg SL tablet [...] mask of choice, HUMIDITY. LIFETIME SUPPLIES. DME: [facility] No current facility-administered medications for this visit. REVIEW OF SYSTEMS General: No fatigue or fevers HEENT: Negative for frequent or significant headaches, No changes in hearing or vision, no nose bleeds or other nasal problems PAP Therapy: Using nightly GI:No nausea, vomiting, or diarrhea and No heartburn or reflux symptoms Muskuloskeletal: Negative for joint pain or swelling, back pain or muscle pain Skin: Negative for lesions, rash, and itching Psych: Negative for sleep disturbance, mood disorder and recent psychosocial stressors PHYSICAL EXAMINATION GENERAL APPEARANCE: Pleasant, interacts appropriately and in no apparent distress. Appropriately groomed, happy, smiling, and interactive. SKIN: Skin of normal texture, without rashes/lesions/ulcerations. LUNGS: Unlabored on room air - negative findings: normal respiratory rate, no cough. NEURO/PSYCH: Oriented to person, place, time; appropriate insight and judgement. Appropriate affect. Diagnostic Tests Reviewed for Today's Visit No new labs The plan of treatment for Lizzy Gant is: Further Work-up: Required monthly visits: 3 of 6 months Patient is interested in: Gastric Bypass with PEHR EGD: - Gastroesophageal flap valve classified as Hill Grade IV (no fold, wide open lumen, hiatal hernia present). - 3 cm hiatal hernia. Biopsied the gastric antrum. - Normal ampulla, duodenal bulb, first portion of the duodenum, second portion of the duodenum and third portion of the duodenum. - The KIRK pH capsule was deployed. Upper GI: deferred RUQ US: fatty liver Sleep Study: current VETO CXR: per pulmonology clearance EKG: per cardiac clearance H Pylori: pending Labs: complete --CBC, CMP reviewed from 08/24 --A1c reviewed from 07/12 Nicotine use <12 months: No, ordered per insurance - negative Tox screen: ordered per insurance - negative Antiplatelet/anticoagulants: baby asa Immunosuppressive therapy: No Estrogen therapy: No Evaluations: Psychology: ongoing 12/12 Nutrition: ongoing (needs appt Dec) Education class: ongoing Clearances: -Cardiac ([facility]- Porfirio Jeff CNP) -Pulmonary ([facility]- Lani Anderson CNP) -Nephrology ([facility]; Annette Lockwood CNP) -Gastroenterology ([facility]; Dr. Byrnes- liver biopsy 12/13 for cirrhosis found on US) -PCP Risk Calculator: VTE Risk: 0.31 - 0.49% ISS score: not diabetic Adverse Event score: NA Post-op Medications: Extended Lovenox: Yes for RYGB Actigall: No, s/p cholecystectomy PPI: currently taking pantoprazole + omeprazole Tylenol: Yes Zofran: Yes Total time in direct patient contact = 40 minutes. Greater than 50% of the time was spent in counseling and/or coordination of care. This note was generated using voice recognition technology and may contain grammatical errors. ASSESSMENT/PLAN: 1. Class 3 severe obesity due to excess calories with serious comorbidity and body mass index (BMI) of 45.0 to 49.9 in adult (HCC) - ICD9: 278.01, V85.42, ICD10: E66.01, Z68.42 (primary diagnosis) Weight decreasing - Medical nutrition therapy with dietitian and - Psychology Nutrition Counseling Practice these: - Eat 3 meals daily--can use approved/recommended protein shake as 1 meal replacement (should be <200 calories, 20-30g protein, <5g added sugar) - Keep a food journal 5-7x/week (consider NanoInk or Service Route sue) and demonstrate meeting protein goal (60-90g protein for females, 70-105g protein for males)- Lean meats, fish, low fat dairy - cottage cheese, Luxembourger yogurt, light yogurt, cheese, ricotta cheese, nuts, peanut butter, beans/legumes. Eat protein first at all meals. and 64oz of caffeine-free, carbonation-free fluids at least 5 days per week - engage in formal, planned exercise 5x/week for 30 minutes of cardiovascular activity OR 150+ minutes of cardiovascular activity per week - eliminate all caffeine, carbonation, alcohol and sugar-containing beverages from diet --consider sugar-free drink mixes, water, decaf coffee and tea - Separate eating and drinking by 30 minutes - Chew your food 20-30x per bite - Sip beverages slowly--no guzzling or gulping 2. VETO treated with BiPAP - ICD9: 327.23, ICD10: G47.33 -Requesting pulmonary clearance. 3. Chronic kidney disease, unspecified CKD stage - ICD9: 585.9, ICD10: N18.9 -Requesting nephrology clearance. 4. Atrial fibrillation, unspecified type (HCC) - ICD9: 427.31, ICD10: I48.91 -Requesting cardiology clearance. Lab work and imaging done. Requesting clearances from cardiology, pulmonology, nephrology. Waiting to request clearance from GI due to liver biopsy in December. Needs psych and RD clearance. Gunner Sutton APRN.CNP Medical Decision Making: Problems: Moderate: 2+ stable chronic illnesses Data: Unique source(s) for external note(s) reviewed: 2 Unique test result(s) reviewed: 2 Assessment requiring an independent historian(s) Medical Decision Making Level: 4 - Moderate documented in this encounter [facility] 12-12-2023 Note HNO ID: [id number] Author: GUNNER SUTTON APRN.CNP Service: ? Author Type: Nurse Practitioner Type: Progress Notes Filed: 12/12/2023 16:24 Note Text: BARIATRIC SURGERY CLINIC FOLLOW UP NOTE DISTANCE HEALTH VISIT This Team Access Model visit is a virtual encounter. It required patient-provider interaction for the medical decision making as documented below. Consent was obtained to complete today's distance health visit. I have communicated my name and active licensure. The patient's identity and physical location were verified at the time of this visit. Either the patient or their legal unit support representative has been informed of the risks and benefits of -- and alternatives to -- treatment through a remote evaluation and consents to proceed with the evaluation remotely. HPI: Lizzy Gant a 58 year old female presents for medically supervised weight loss treatment of her obesity related co morbidities. This individual presents for month 3 of 6 required visits. Lizzy Gant weight has decreased since first visit in the program. Lizzy reports doing very well with nutritional recommendations. She has cut out using oil while cooking and bread. She switched to unsweetened almond milk and is eating cottage cheese and Luxembourger yogurt. Her weight is down significantly. She endorses hitting fluid and protein goals daily. She endorses not tracking her diet due to struggling to write things down, however, she can recall quite a bit of her diet. For exercise, she is increasing her walking and staying active in general. Denies recent illnesses, hospitalizations, and medication changes. Denies constipation, diarrhea, abd pain, and reflux symptoms. She recently saw pulmonology who has her back on her BiPAP. Recent ultrasound we ordered showed fatty liver along with possible cirrhosis. She followed up with her GI who ordered a CT scan and lab work that showed pancreatic insufficiency. She now takes Creon and will be having a liver biopsy done on 12/13. HISTORY REVIEWED (electronic chart updated): - medical history - medications - allergies PAST MEDICAL HISTORY Diagnosis Date Asthma 06/13/2008 Atypical chest pain 01/2019 heart cath normal Bile-induced gastritis 04/08/2021 Calcium deposits in tendon and bursa right knee Carpal tunnel syndrome, bilateral 10/16/2015 Chronic cholecystitis 07/22/2020 Chronic midline low back pain without sciatica 07/31/2015 CKD stage 3a, GFR 45-59 ml/min ([facility]) Colon polyp 07/17/2020 Dermatophytosis of the body Edema 06/13/2008 GERD (gastroesophageal reflux disease) 07/29/2010 Hiatal hernia 07/17/2020 medium sized seen on EGD Infectious mononucleosis Irregular menstrual cycle Irritable bowel syndrome with diarrhea 08/04/2015 Morbid obesity with BMI of 45.0-49.9, adult ([facility]) Obesity, Class III, BMI 40-49.9 (morbid obesity) ([facility]) 07/27/2017 Stage 3a chronic kidney disease ([facility]) 04/08/2021 Tobacco use disorder Unspecified hearing loss left ear - wears hearing aid Unspecified hypothyroidism Social: Social History Tobacco Use Smoking status: Former Current packs/day: 0.00 Average packs/day: 1 pack/day for 15.0 years (15.0 ttl pk-yrs) Types: Cigarettes Start date: 05/30/1994 Quit date: 05/30/2009 Years since quittin.5 Smokeless tobacco: Never Tobacco comments: started age 16 Vaping Use Vaping status: Never Used Substance Use Topics Alcohol use: Not Currently Drug use: Never Medications: Current Outpatient Medications Medication Sig CREON 36,000-114,000- 180,000 unit delayed release capsule 1 capsule with meals and at bedtime. 2-3 capsules with meals and 1-2 with snacks hyoscyamine (LEVSIN) 0.125 mg tablet Take 0.125 mg by mouth every 6 hours as needed. 1-2 tablets four times daily as needed albuterol HFA (PROAIR HFA) 90 mcg/actuation inhaler Inhale 2 Puffs as instructed every 4 hours as needed. pantoprazole DR (PROTONIX) 40 mg tablet Take 1 tablet by mouth two times a day. Take on empty stomach, 1/2 hr before meal. omeprazole (PRILOSEC) 40 mg capsule Take 1 capsule by mouth once daily. cholecalciferol, Vitamin D3, (VITAMIN D3) 1,250 mcg (50,000 unit) cap capsule Take 1 capsule by mouth one time a week for 12 doses. Transition to 4,000-5,000 units of Vitamin D [id number] after completing 12 weeks of high-dose therapy. diclofenac, EC, (VOLTAREN) 75 mg EC tablet take 1 tablet by mouth twice a day torsemide (DEMADEX) 20 mg tablet take 1 tablet by mouth twice a day (STOP FUROSEMIDE) levothyroxine (SYNTHROID) 100 mcg tablet Take 1 tablet by mouth once daily. Per [facility]. colestipol (COLESTID) 1 gram tablet Take 2 tablets by mouth two times a day. fluticasone (FLONASE) 50 mcg/actuation nasal spray instill 2 sprays into each nostril once daily at bedtime fluticasone (FLOVENT HFA) 220 mcg/actuation inhaler Inhale 1 Puff as instructed two times a day. Shake well before use. Rinse (more content not included)... [facility] 11-22-2023 Telephone encounter Note Called patient to review RUQ US results demonstrating NAFLD and possible cirrhosis. She reports that she has already discussed the results with her talent recruiter (Dr. Byrnes) and has been scheduled for a liver biopsy. Sofía Multani APRN.[employer] [facility] Work Phone: 11-22-2023 Miscellaneous Notes Called patient to review RUQ US results demonstrating NAFLD and possible cirrhosis. She reports that she has already discussed the results with her talent recruiter (Dr. Byrnes) and has been scheduled for a liver biopsy. Sofía Multani APRN.ERICK documented in this encounter [facility] 11-18-2023 Instructions Annette Lockwood APRN.CNP - 11/18/2023 12:10 PM EDT -STOP Voltaren otherwise use the lowest effective dose for the shortest duration possible -Please avoid Advil, Ibuprofen(Motrin), Aleve(Naproxen), Meloxicam(Mobic), diclofenac and other pain/arthritis medications called NSAIDS. It is ok to take acetaminophen (Tylenol) for pain as needed -Labs to be done prior to next visit. -Continue to follow with your specialists and PCP as planned -Discussed need for good diabetes, blood pressure and cholesterol control to prevent disease progression. -Recommend BP goal of 130s/80 or less. Please contact the office if your blood pressure is less than 110/70 or higher than 160/90. Normal heart rate/pulse is 60-100 beats per minute. Please let us know if you are consistently less than 60 beats or over 100 beats when at rest. -Follow low salt diet. (1/2 tsp salt) <2 grams or 2000mg -Please limit your protein intake to 3 ounces of protein per meal. -Recommend HgbA1c of 7 or less as CKD goal. -Please avoid contrast dye with imaging. If a provider wants to order CT or MRI with contrast, please let them know you have decreased kidney function. -Increase activity to 150 minutes every week. RTC 6 months documented in this encounter [facility] 11-18-2023 History of Present illness Narrative [facility] SERVICE DATE: 11/18/2023 SERVICE TIME: 12:04 PM CHIEF COMPLAINT: Follow up CKD 3A HPI: 58 year old female who presents for follow up CKD 3A with PMHx of VETO on CPAP, A-fib on carvedilol, IBS-D, GERD r/t Paraesophageal hernia on PPI x 2, and hypothyroidism Since last visit she is continuing to take Voltaren. No Hospitalizations. Feels sore today with chronic pain. Following with Bariatrics for possible RYGB. BPs at home not checked Weights: stable Medication adherence is stable Not following a low salt diet. Uses Lawry's salt regularly Drinking 2Ls water per day Assessment/Plan from [facility] with Raffaele Mustafa on 08/24/2023. 58 year old female with bilateral carpal tunnel, obesity, GERD who presents for elevated creatinine. Chronic Kidney Disease Stage 3a Elevated Cr Rt Renal Atrophy Baseline Cr 1.0 Patient has risk factor of Obesity (BMI 47) and PPI. KBUS with smaller sized kidneys and rt kidney with small size and thinned parenchyma. No EMMA by Renal Duplex assessment. No proteinuria, suggests favorable prognosis. Cr most recently is stable. No signs of progression and protein remains negative on UA. She does have some LE positivity and noted the pantoprazole and omeprazole. Patient again reports she needs both of these for symptom control. GERD: Continues on two Chronic PPIs, on pantoprazole and omeprazole. Reports symptoms recur and are debilitating if she is on either. Will not adjust due to patient preference. Blood Pressure: At goal today. On Torsemide and Spironolactone. Volume Status: Patient has history of volume overload and is on diuretics. She continues to be focused on this. Exam is not overwhelming but patient feels better on diuretics. Ok to continue for now as long as Cr stays stable. Obesity - Says she is looking into bariatric surgery. PLAN: -Recheck Renal Function panel and CBC in October ~3 months from last check. -Torsemide per cardiology. -Revisited PPIs again today, patient wishes to continue both -Follow up in 6 months. PAST MEDICAL HISTORY: ACTIVE PROBLEM LIST Asthma Edema Veto On Cpap Gerd (Gastroesophageal Reflux Disease) Irritable Bowel Syndrome With Diarrhea Obesity, Class Iii, Bmi 40-49.9 (Morbid Obesity) (Hcc) Stage 3a Chronic Kidney Disease (Hcc) Atypical Chest Pain Bile-Induced Gastritis Colon Polyp Subclinical Hypothyroidism Eczema No Appetite MEDICATIONS: CREON 36,000-114,000- 180,000 unit delayed release capsule 1 capsule with meals and at bedtime. 2-3 capsules with meals and 1-2 with snacks hyoscyamine (LEVSIN) 0.125 mg tablet Take 0.125 mg by mouth every 6 hours as needed. 1-2 tablets four times daily as needed albuterol HFA (PROAIR HFA) 90 mcg/actuation inhaler Inhale 2 Puffs as instructed every 4 hours as needed. pantoprazole DR (PROTONIX) 40 mg tablet Take 1 tablet by mouth two times a day. Take on empty stomach, 1/2 hr before meal. omeprazole (PRILOSEC) 40 mg capsule Take 1 capsule by mouth once daily. cholecalciferol, Vitamin D3, (VITAMIN D3) 1,250 mcg (50,000 unit) cap capsule Take 1 capsule by mouth one time a week for 12 doses. Transition to 4,000-5,000 units of Vitamin D [id number] after completing 12 weeks of high-dose therapy. diclofenac, EC, (VOLTAREN) 75 mg EC tablet take 1 tablet by mouth twice a day torsemide (DEMADEX) 20 mg tablet take 1 tablet by mouth twice a day (STOP FUROSEMIDE) levothyroxine (SYNTHROID) 100 mcg tablet Take 1 tablet by mouth once daily. Per [facility]. colestipol (COLESTID) 1 gram tablet Take 2 tablets by mouth two times a day. fluticasone (FLONASE) 50 mcg/actuation nasal spray instill [...] of hands, arms, legs for 1 week.). spironolactone (ALDACTONE) 25 mg tablet Take 1 tablet by mouth every afternoon. Per [facility] olopatadine (PATANOL) 0.1 % ophthalmic solution EYE ITCH RELIEF 0.025 % (0.035 %) ophthalmic solution instill 1 drop into both eyes twice a day if needed dicyclomine (BENTYL) 10 mg capsule 10 mg. nitroglycerin sublingual (NITROQUICK) 0.4 mg SL tablet [...] mask of choice, HUMIDITY. LIFETIME SUPPLIES. DME: [facility] ALLERGIES: ALLERGIES Allergen Reactions Iv Contrast [Iodine] Swelling Seasonal Allergies Intolerance PHYSICAL EXAM: BP 114/76 Pulse 60 Wt 116 kg (255 lb 13.5 oz) LMP (LMP Unknown) BMI 46.05 kg/m BP - standardized method Pulse 1 BP #1: 116/77 Pulse #1: 59 beats/min 2 BP #2 : 111/77 Pulse #2 : 59 beats/min 3 BP #3 : 115/75 Pulse #3 : 64 beats/min Average Average BP: 114/76 Average Pulse: 60 beats/min BP cuff location BP cuff location: Left upper arm BP cuff size BP cuff size: extra large adult Constitutional:No acute distress, Responsive, Normal habitus, and Well-nourished Neck:Trachea midline No jugular venous distension Cardiovascular:Edema present: Trace BLE Regular rate and ryhthm, normal S1 and S2, no murmurs, rubs, or gallops Respiratory:Normal respiratory effort. Lungs clear bilaterally. Abdomen:Soft, non-tender, non-distended. Normal bowel sounds. No hepatosplenomegaly. Psychiatric: Anxious DATA: Diagnostic tests reviewed for today's visit: Sodium (mmol/L) Date Value 10/07/2023 141 07/13/2023 141 01/27/2023 139 Creatinine (mg/dL) Date Value 10/07/2023 1.39 (H) 07/13/2023 1.25 (H) 01/27/2023 1.07 (H) Vitamin D 25 Hydroxy (ng/mL) Date Value 11/04/2023 33.7 PTH, Intact (pg/mL) Date Value 11/04/2023 166 (H) 10/07/2023 288 (H) Potassium (mmol/L) Date Value 10/07/2023 4.9 07/13/2023 4.3 01/27/2023 4.4 Phosphorus (mg/dL) Date Value 10/07/2023 2.9 07/13/2023 3.0 01/27/2023 2.1 (L) Calcium, Total (mg/dL) Date Value 10/07/2023 9.6 07/13/2023 10.0 01/27/2023 9.9 Hemoglobin (g/dL) Date Value 07/13/2023 14.4 11/17/2022 14.2 03/20/2021 13.5 Hemoglobin A1C (%) Date Value 07/13/2023 5.3 11/17/2022 5.0 03/20/2021 5.2 Albumin/Creat Ratio (mg/g) Date Value 07/13/2023 <11 01/27/2023 <19 Protein/Creat Ratio (mg/mg) Date Value 07/13/2023 0.10 01/27/2023 0.08 Laboratory work up, imaging and other tests were reviewed ASSESSMENT: 58 year old female who presents for follow up CKD 3A with PMHx of VETO on BiPAP, IBS-D, GERD with gastritis related to Paraesophageal herniaon PPI x 2, hypothyroidism, Asthma, chronic back and knee on chronic NSAIDS with BMI >45. CKD Stage 3A, non proteinuric, related to right renal atrophy, with last SCR 1.1. Risk progression includes continued NSAID use, PPI use and BMI >45. Kidney sizes: - Ultrasound done 11/2022: - RESULT: Right Kidney: -Renal length: 8.3 cm -Parenchyma: Normal parenchymal echogenicity. Diffuse parenchymal thinning present. -Collecting system: No hydronephrosis. -Calculus: No echogenic, shadowing calculus. -Lesion: None. Left Kidney: -Renal length: 8.8 cm -Parenchyma: Normal parenchymal echogenicity. Normal parenchymal thickness. -Collecting system: No hydronephrosis. -Calculus: No echogenic, shadowing calculus. -Lesion: None. Bladder: Normal sonographic appearance. ACEi/ARB, SGLT2i: - None HTN/VOLUME: - Meds: Carvedilol 3.125 BID, Torsemide 20 BID, spironolactone 25 Metabolic/electrolytes: - K: 4.9 previously on supplement - Na: 141 - C02: 24 - Stable Anemia: - Hgb: 14.4 - Stable Metabolic Bone: - Vitamin D: 33.7 - PTH: 166 - Ca: 9.6 - Improved on Ergocalciferol DM: - A1C: 5.3 - At CKD goal < 7.0 CV/Lipids: - LDL 68 at CKD goal <100 - On ASA 81, Atorvastatin, Colestid - Following with Bariatrics and hoping for RYGB with [facility] after 6 month trial of diet and lifestyle change as required by insurance. GERD: - On PPI - Would replace with famotidine if patient is agreeable. PLAN: -STOP Voltaren otherwise use the lowest effective dose for the shortest duration possible -Please avoid Advil, Ibuprofen(Motrin), Aleve(Naproxen), Meloxicam(Mobic), diclofenac and other pain/arthritis medications called NSAIDS. It is ok to take acetaminophen (Tylenol) for pain as needed -Labs to be done prior to next visit. -Continue to follow with your specialists and PCP as planned -Discussed need for good diabetes, blood pressure and cholesterol control to prevent disease progression. -Recommend BP goal of 130s/80 or less. Please contact the office if your blood pressure is less than 110/70 or higher than 160/90. Normal heart rate/pulse is 60-100 beats per minute. Please let us know if you are consistently less than 60 beats or over 100 beats when at rest. -Follow low salt diet. (1/2 tsp salt) <2 grams or 2000mg -Please limit your protein intake to 3 ounces of protein per meal. -Recommend HgbA1c of 7 or less as CKD goal. -Please avoid contrast dye with imaging. If a provider wants to order CT or MRI with contrast, please let them know you have decreased kidney function. -Increase activity to 150 minutes every week. RTC 6 months I spent a total of 40 minutes on the date of the service which included preparing to see the patient, [id number] patient care, completing clinical documentation, obtaining and/or reviewing separately obtained history, performing a medically appropriate examination, counseling and educating the patient/family/caregiver, ordering medications, tests, or procedures, independently interpreting results (not separately reported), and communicating results to the patient/family/caregiver. All documentation from previous visit was copied and pasted, documentation has been reviewed and edited as necessary for today's visit. SIGNATURE: Annette Lockwood APRN.CNP PATIENT NAME: Lizzy Gant DATE: November 15, 2023 TIME: 12:04 PM OFFICE NUMBER: [phone] CC: PRIMARY CARE PHYSICIAN: Sam Null MD documented in this encounter [facility] 11-18-2023 Note HNO ID: [id number] Author: ANNETTE LOCKWOOD APRN.CNP Service: ? Author Type: Nurse Practitioner Type: Progress Notes Filed: 11/18/2023 12:49 Note Text: [facility] SERVICE DATE: 11/18/2023 SERVICE TIME: 12:04 PM CHIEF COMPLAINT: Follow up CKD 3A HPI: 58 year old female who presents for follow up CKD 3A with PMHx of VETO on CPAP, A-fib on carvedilol, IBS-D, GERD r/t Paraesophageal hernia on PPI x 2, and hypothyroidism Since last visit she is continuing to take Voltaren. No Hospitalizations. Feels sore today with chronic pain. Following with Bariatrics for possible RYGB. BPs at home not checked Weights: stable Medication adherence is stable Not following a low salt diet. Uses Lawry's salt regularly Drinking 2Ls water per day Assessment/Plan from [facility] with Raffaele Mustafa on 08/24/2023. 58 year old female with bilateral carpal tunnel, obesity, GERD who presents for elevated creatinine. Chronic Kidney Disease Stage 3a Elevated Cr Rt Renal Atrophy Baseline Cr 1.0 Patient has risk factor of Obesity (BMI 47) and PPI. KBUS with smaller sized kidneys and rt kidney with small size and thinned parenchyma. No EMMA by Renal Duplex assessment. No proteinuria, suggests favorable prognosis. Cr most recently is stable. No signs of progression and protein remains negative on UA. She does have some LE positivity and noted the pantoprazole and omeprazole. Patient again reports she needs both of these for symptom control. GERD: Continues on two Chronic PPIs, on pantoprazole and omeprazole. Reports symptoms recur and are debilitating if she is on either. Will not adjust due to patient preference. Blood Pressure: At goal today. On Torsemide and Spironolactone. Volume Status: Patient has history of volume overload and is on diuretics. She continues to be focused on this. Exam is not overwhelming but patient feels better on diuretics. Ok to continue for now as long as Cr stays stable. Obesity - Says she is looking into bariatric surgery. PLAN: -Recheck Renal Function panel and CBC in October ~3 months from last check. -Torsemide per cardiology. -Revisited PPIs again today, patient wishes to continue both -Follow up in 6 months. PAST MEDICAL HISTORY: ACTIVE PROBLEM LIST Asthma Edema Veto On Cpap Gerd (Gastroesophageal Reflux Disease) Irritable Bowel Syndrome With Diarrhea Obesity, Class Iii, Bmi 40-49.9 (Morbid Obesity) (Hcc) Stage 3a Chronic Kidney Disease (Hcc) Atypical Chest Pain Bile-Induced Gastritis Colon Polyp Subclinical Hypothyroidism Eczema No Appetite MEDICATIONS: CREON 36,000-114,000- 180,000 unit delayed release capsule 1 capsule with meals and at bedtime. 2-3 capsules with meals and 1-2 with snacks hyoscyamine (LEVSIN) 0.125 mg tablet Take 0.125 mg by mouth every 6 hours as needed. 1-2 tablets four times daily as needed albuterol HFA (PROAIR HFA) 90 mcg/actuation inhaler Inhale 2 Puffs as instructed every 4 hours as needed. pantoprazole DR (PROTONIX) 40 mg tablet Take 1 tablet by mouth two times a day. Take on empty stomach, 1/2 hr before meal. omeprazole (PRILOSEC) 40 mg capsule Take 1 capsule by mouth once daily. cholecalciferol, Vitamin D3, (VITAMIN D3) 1,250 mcg (50,000 unit) cap capsule Take 1 capsule by mouth one time a week for 12 doses. Transition to 4,000-5,000 units of Vitamin D [id number]-[id number] after completing 12 weeks of high-dose therapy. diclofenac, EC, (VOLTAREN) 75 mg EC tablet take 1 tablet by mouth twice a day torsemide (DEMADEX) 20 mg tablet take 1 tablet by mouth twice a day (STOP FUROSEMIDE) levothyroxine (SYNTHROID) 100 mcg tablet Take 1 tablet by mouth once daily. Per [facility]. colestipol (COLESTID) 1 gram tablet Take 2 tablets by mouth two times a day. fluticasone (FLONASE) 50 mcg/actuation nasal spray instill [...] of hands, arms, legs for 1 week.). spironolactone (ALDACTONE) 25 mg tablet Take 1 tablet by mouth every afternoon. Per [facility] olopatadine (PATANOL) 0.1 % ophthalmic solution EYE ITCH RELIEF 0.025 % (0.035 %) ophthalmic solution instill 1 drop into both eyes twice a day if needed dicyclomine (BENTYL) 10 mg capsule 10 mg. nitroglycerin sublingual (NITROQUICK) 0.4 mg SL tablet [...] 1 capsule by mouth once daily. CPAP Auto (more content not included)... [facility] 11-18-2023 Evaluation note Diagnosis Stage 3a chronic kidney disease (HCC)- Primary Vitamin D deficiency Unspecified vitamin D deficiency Encounter for long-term (current) use of NSAIDs Encounter for long-term (current) use of non-steroidal anti-inflammatories Class 3 severe obesity with serious comorbidity and body mass index (BMI) of 45.0 to 49.9 in adult, unspecified obesity type (HCC) documented in this encounter [facility]08-02-2024 Telephone encounter Note* Telephone Encounter - Lucille Peter LPN - 10/14/2023 3:27 PM EDT Spoke with patient to relay the message from Dr. Lang. Patient saw that her labs were worse and will repeat the labs in [address] Lang's order. Patient was added to the wait list for a soonerappointment. [facility]08-02-2024 Miscellaneous Notes* Telephone Encounter - Lucille Peter LPN - 10/14/2023 3:27 PM EDT Spoke with patient to relay the message from Dr. Lang. Patient saw that her labs were worse and will repeat the labs in [address] Lang's order. Patient was added to the wait list for a soonerappointment. * Telephone Encounter - Kai Lang I, MD - 10/14/2023 3:09 PM EDT Following patient of Dr. Mustafa. Nephrology nurses please call the patient and tell her to repeatblood work in 2 weeks as the kidney function is slightly worse than before. Please place her on waitlist/cancellation for an earlier appointment with nephrology. I will copy Dr. Rothman who is seeing the patient in February 2024. [facility] Telephone encounter Note * Telephone Encounter - Kai Lang I, MD - 10/14/2023 3:09 PM EDT Following patient of Dr. Mustafa. Nephrology nurses please call the patient and tell her to repeatblood work in 2 weeks as the kidney function is slightly worse than before. Please place her on waitlist/cancellation for an earlier appointment with nephrology. I will copy Dr. Rothman who is seeing the patient in February 2024. [facility] Work Phone: 1(976) 293-885108-02-2024 NoteHNO ID: [id number] Author: SAM NULL MD Service: ? Author Type: Physician Type: Progress Notes Filed: 10/14/2023 15:22 Note Text: This note was created using [employer]. Subjective Lizzy Gant is a 58 year old female. She was evaluated by Dr. Herzog at [facility] and GERD, Hiatal hernia will be repaired at the time of gastric bypass due to refractory acid reflux. She started bariatric program. She just saw cardiology [employer] at [facility] and stress test was being considered for atypical chest pain. Edema was controlled with torsemide and aldactone. Friend her local GI had her on pantoprazole high dose, but she still took omeprazole from cardiology to control her symptoms. She also took dicyclomine and hyoscyamine for IBS, as well as colestipol for bile gastritis, and Creon for what I presume to be pancreatic insufficiency. She sees Marium Anderson CNP, [facility] for chronic dyspnea and asthma. She used her rescue inhaler twice a week. She sees Dr. Eduardo Morgan for [facility] for hypothyroidism. Review of Systems Constitutional: Positive for appetite change. Negative for fatigue, fever and unexpected weight change. Respiratory: Positive for shortness of breath. Negative for cough and wheezing. Cardiovascular: Positive for chest pain and leg swelling. Negative for palpitations. Gastrointestinal: Positive for abdominal pain. Negative for constipation, diarrhea, nausea and vomiting. Genitourinary: Negative for difficulty urinating and dyspareunia. Neurological: Negative. ACTIVE PROBLEM LIST Asthma Edema Veto On Cpap Gerd (Gastroesophageal Reflux Disease) Irritable Bowel Syndrome With Diarrhea Obesity, Class Iii, Bmi 40-49.9 (Morbid Obesity) (Hcc) Stage 3a Chronic Kidney Disease (Hcc) Atypical Chest Pain Bile-Induced Gastritis Colon Polyp Subclinical Hypothyroidism Eczema No Appetite Social History Tobacco Use Smoking status: Former Packs/day: 1.00 Years: 15.00 Additional pack years: 0.00 Total pack years: 15.00 Types: Cigarettes Quit date: 05/30/2009 Years since quittin.3 Smokeless tobacco: Never Tobacco comments: started age 16 Vaping Use Vaping Use: Never used Substance Use Topics Alcohol use: Not Currently Drug use: Never Current Outpatient Medications Medication Sig CREON 36,000-114,000- 180,000 unit delayed release capsule 1 capsule with meals and at bedtime. 2-3 capsules with meals and 1-2 with snacks hyoscyamine (LEVSIN) 0.125 mg tablet Take 0.125 mg by mouth every 6 hours as needed. 1-2 tablets four times daily as needed cholecalciferol, Vitamin D3, (VITAMIN D3) 1,250 mcg (50,000 unit) cap capsule Take 1 capsule by mouth one time a week for 12 doses. Transition to 4,000-5,000 units of Vitamin D [id number] after completing 12 weeks of high-dose therapy. diclofenac, EC, (VOLTAREN) 75 mg EC tablet take 1 tablet by mouth twice a day torsemide (DEMADEX) 20 mg tablet take 1 tablet by mouth twice a day (STOP FUROSEMIDE) levothyroxine (SYNTHROID) 100 mcg tablet Take 1 tablet by mouth once daily. Per [facility]. colestipol (COLESTID) 1 gram tablet Take 2 tablets by mouth two times a day. fluticasone (FLONASE) 50 mcg/actuation nasal spray instill [...] of hands, arms, legs for 1 week.). spironolactone (ALDACTONE) 25 mg tablet Take 1 tablet by mouth every afternoon. Per [facility] olopatadine (PATANOL) 0.1 % ophthalmic solution EYE ITCH RELIEF 0.025 % (0.035 %) ophthalmic solution instill 1 drop into both eyes twice a day if needed dicyclomine (BENTYL) 10 mg capsule 10 mg. nitroglycerin sublingual (NITROQUICK) 0.4 mg SL tablet [...] mask of choice, HUMIDITY. LIFETIME SUPPLIES. DME: [facility] albuterol HFA (PROAIR HFA) 90 mcg/actuation inhaler Inhale 2 Puffs as instructed every 4 hours as needed. pantoprazole DR (PROTONIX) 40 mg tablet Take 1 tablet by mouth two times a day. Take on empty stomach, 1/2 hr before meal. omeprazole (PRILOSEC) 40 mg capsule Take 1 capsule by mouth once daily. No current facility-administered medications for this visit. Objective BP 116/68 Pulse 90 Temp 36.2 ?C (97.1 ?F) Resp 18 Wt 115.8 kg (255 lb 4 (more content not included)...[facility]08-02-2024 History of Present illness Narrative* Sam Null MD - 10/14/2023 1:36 PM EDT This note was created using [employer]. Subjective Lizzy Gant is a 58 year old female. She was evaluated by Dr. Herzog at [facility] and GERD, Hiatal hernia will be repaired at the time of gastric bypass due to refractory acid reflux. She started bariatric program. She just saw cardiology [employer] at [facility] and stress test was being considered for atypicalchest pain. Edema was controlled with torsemide and aldactone. Dr. Byrnes her local GI had her on pantoprazole high dose, but she still took omeprazole from cardiology to control her symptoms. She also took dicyclomine and hyoscyamine for IBS, as well as colestipol for bile gastritis, and Creon forwhat I presume to be pancreatic insufficiency. She sees Marium Anderson CNP, [facility] for chronic dyspnea and asthma. She used her rescue inhaler twice a week. She sees Dr. Eduardo Morgan for [facility] for hypothyroidism. Review of Systems Constitutional: Positive for appetite change. Negative for fatigue, fever and unexpected weight change. Respiratory: Positive for shortness of breath. Negative for cough and wheezing. Cardiovascular: Positive for chest pain and leg swelling. Negative for palpitations. Gastrointestinal: Positive for abdominal pain. Negative for constipation, diarrhea, nausea and vomiting. Genitourinary: Negative for difficulty urinating and dyspareunia. Neurological: Negative. ACTIVE PROBLEM LIST Asthma Edema Veto On Cpap Gerd (Gastroesophageal Reflux Disease) Irritable Bowel Syndrome With Diarrhea Obesity, Class Iii, Bmi 40-49.9 (Morbid Obesity) (Hcc) Stage 3a Chronic Kidney Disease (Hcc) Atypical Chest Pain Bile-Induced Gastritis Colon Polyp Subclinical Hypothyroidism Eczema No Appetite Social History Tobacco Use Smoking status: Former Packs/day: 1.00 Years: 15.00 Additional pack years: 0.00 Total pack years: 15.00 Types: Cigarettes Quit date: 05/30/2009 Years since quittin.3 Smokeless tobacco: Never Tobacco comments: started age 16 Vaping Use Vaping Use: Never used Substance Use Topics Alcohol use: Not Currently Drug use: Never Current Outpatient Medications Medication Sig CREON 36,000-114,000- 180,000 unit delayed release capsule 1 capsule with meals and at bedtime. 2-3capsules with meals and 1-2 with snacks hyoscyamine (LEVSIN) 0.125 mg tablet Take 0.125 mg by mouth every 6 hours as needed. 1-2 tablets four times daily as needed cholecalciferol, Vitamin D3, (VITAMIN D3) 1,250 mcg (50,000 unit) cap capsule Take 1 capsule by mouth one time a week for 12 doses. Transition to 4,000-5,000 units of Vitamin D [id number]-[id number] aftercompleting 12 weeks of high-dose therapy. diclofenac, EC, (VOLTAREN) 75 mg EC tablet take 1 tablet by mouth twice a day torsemide (DEMADEX) 20 mg tablet take 1 tablet by mouth twice a day (STOP FUROSEMIDE) levothyroxine (SYNTHROID) 100 mcg tablet Take 1 tablet by mouth once daily. Per [facility]. colestipol (COLESTID) 1 gram tablet Take 2 tablets by mouth two times a day. fluticasone (FLONASE) 50 mcg/actuation nasal spray instill [...] of hands, arms, legs for 1 week.). spironolactone (ALDACTONE) 25 mg tablet Take 1 tablet by mouth every afternoon. Per [facility] olopatadine (PATANOL) 0.1 % ophthalmic solution EYE ITCH RELIEF 0.025 % (0.035 %) ophthalmic solution instill 1 drop into both eyes twice a day if needed dicyclomine (BENTYL) 10 mg capsule 10 mg. nitroglycerin sublingual (NITROQUICK) 0.4 mg SL tablet [...] mask of choice, HUMIDITY. LIFETIME SUPPLIES. DME: [facility] albuterol HFA (PROAIR HFA) 90 mcg/actuation inhaler Inhale 2 Puffs as instructed every 4 hours as needed. pantoprazole DR (PROTONIX) 40 mg tablet Take 1 tablet by mouth two times a day. Take on empty stomach, 1/2 hr before meal. omeprazole (PRILOSEC) 40 mg capsule Take 1 capsule by mouth once daily. No current facility-administered medications for this visit. Objective BP 116/68 Pulse 90 Temp 36.2 C (97.1 F) Resp 18 Wt 115.8 kg (255 lb 4.7 oz) LMP (LMP Unknown) SpO2 98% BMI 45.95 kg/m Physical Exam Constitutional: General: She is not in acute distress. Appearance: She is not ill-appearing. Cardiovascular: Rate and Rhythm: Normal rate and regular rhythm. Pulmonary: Effort: No respiratory distress. Breath sounds: Normal breath sounds. No wheezing or rales. Abdominal: Palpations: Abdomen is soft. Tenderness: There is no abdominal tenderness. Musculoskeletal: Right lower leg: No edema. Left lower leg: No edema. Neurological: General: No focal deficit present. Mental Status: She is alert. Gait: Gait normal. Assessment and Plan 1. Gastroesophageal reflux disease, unspecified whether esophagitis present - ICD9: 530.81, ICD10: K21.9 (primary diagnosis) - Continue medications per GI. 2. Mild intermittent asthma without complication - ICD9: 493.90, ICD10: J45.20 - Mild intermittent asthma stable - Avoidance of triggers recommended - ALBUTEROL SULFATE HFA 90 MCG/ACTUATION AEROSOL INHALER 3. Screening for depression - ICD9: V79.0, ICD10: Z13.31 Negative. - DEPRESSION SCREENING 4. Encounter for screening examination for other mental health and behavioral disorders - ICD9: V79.8, ICD10: Z13.39 Negative. - ANXIETY SCREENING 5. Atypical chest pain - ICD9: 786.59, ICD10: R07.89 Atypical chest pain, possible etiology include GERD, Hiatal hernia. - Per [facility]. 6. Obesity, Class III, BMI 40-49.9 (morbid obesity) (HCC) - ICD9: 278.01, ICD10: E66.01 Weight increasing - BMI program initiated. 7. Need for vaccination - ICD9: V05.9, ICD10: Z23 - ZOSTER VACCINE, RECOMBINANT (SHINGRIX) - ZOSTER VACCINE, RECOMBINANT (SHINGRIX) Sam Null MD [facility] History of Present illness Narrative* Gala Schrader, RD - 10/13/2023 11:00 AM EDT [facility] General - Bariatric Department New Patient Nutritional Assessment Patient seen individually in office. Family member with patient. Lizzy Gant Month 05/17 Adjusted protein due to CKD III - 48-60g Anthropometrics: 58 year old female Ht 158.8 cm (5' 2.5 ) Wt 115.8 kg (255 lb 3.2 oz) LMP (LMP Unknown) BMI 45.93 kg/m Percent Body Fat: deferred Medical History: PAST MEDICAL HISTORY 06/13/2008: Asthma 01/2019: Atypical chest pain Comment: heart cath normal 04/08/2021: Bile-induced gastritis No date: Calcium deposits in tendon and bursa Comment: right knee 07/22/2020: Chronic cholecystitis 07/31/2015: Chronic midline low back pain without sciatica No date: CKD stage 3a, GFR 45-59 ml/min ([facility]) 07/17/2020: Colon polyp No date: Dermatophytosis of the body 06/13/2008: Edema 07/29/2010: GERD (gastroesophageal reflux disease) 07/17/2020: Hiatal hernia Comment: medium sized seen on EGD No date: Infectious mononucleosis No date: Irregular menstrual cycle No date: Morbid obesity with BMI of 45.0-49.9, adult (HCC) No date: Tobacco use disorder No date: Unspecified hearing loss Comment: left ear - wears hearing aid No date: Unspecified hypothyroidism Medications: Current Outpatient Medications Medication Sig Dispense Refill cholecalciferol, Vitamin D3, (VITAMIN D3) 1,250 mcg (50,000 unit) cap capsule Take 1 capsule by mouth one time a week for 12 doses. Transition to 4,000-5,000 units of Vitamin D [id number] aftercompleting 12 weeks of high-dose therapy. 12 capsule 0 diclofenac, EC, (VOLTAREN) 75 mg EC tablet take 1 tablet by mouth twice a day 180 tablet 2 torsemide (DEMADEX) 20 mg tablet take 1 tablet by mouth twice a day (STOP FUROSEMIDE) OMEPRAZOLE, BULK, MISC 40 mg once daily. levothyroxine (SYNTHROID) 100 mcg tablet Take 1 tablet by mouth once daily. Per [facility]. 30 tablet colestipol (COLESTID) 1 gram tablet Take 2 tablets by mouth two times a day. albuterol HFA (PROAIR HFA) 90 mcg/actuation inhaler Inhale 2 Puffs as instructed every 4 hours as needed. 1 Each 1 fluticasone (FLONASE) 50 mcg/actuation nasal spray instill 2 sprays into each nostril once daily atbedtime 1 Each 5 fluticasone (FLOVENT HFA) 220 mcg/actuation inhaler Inhale 1 Puff as instructed two times a day. Shake well before use. Rinse mouth after use. 1 Each 5 hydrocortisone 2.5 % cream Apply 1 application to affected area two times a day as needed (Apply sparingly to rash of hands, arms, legs for 1 week.). 28 g 5 furosemide (LASIX) 40 mg tablet Take 1 tablet by mouth two times a day. Per [facility] (Patient not taking: Reported on 09/08/2023) spironolactone (ALDACTONE) 25 mg tablet Take 1 tablet by mouth every afternoon. Per [facility] traMADol (ULTRAM) 50 mg tablet Take 1 tablet by mouth every 6 hours as needed for pain. 20 tablet 0 olopatadine (PATANOL) 0.1 % ophthalmic solution EYE ITCH RELIEF 0.025 % (0.035 %) ophthalmic solution instill 1 drop into both eyes twice a day if needed dicyclomine (BENTYL) 10 mg capsule [address] (PROTONIX) 40 mg tablet Take 1 tablet by mouth twice daily. Take on empty stomach, 1/2 hr before meal. nitroglycerin sublingual (NITROQUICK) 0.4 mg SL tablet 0.4 mg. aspirin, enteric coated (ASPIRIN, ENTERIC COATED) 81 mg EC tablet Take 1 tablet by mouth once daily. 0 atorvastatin (LIPITOR) 20 mg tablet Take 20 mg by mouth once daily. 0 carvedilol (COREG) 3.125 mg tablet Take 1 tablet by mouth once daily. potassium chloride SR (MICRO-K) 10 mEq CR capsule Take 1 capsule by mouth once daily. 30 capsule 6 CPAP AutoPAP 5-15 CM H2O with flex/EPR option, ramp, mask of choice, HUMIDITY. LIFETIME SUPPLIES. DME: [facility] 1 Device 0 No current facility-administered medications for this visit. Allergies: Iv Contrast [Iodine] and Seasonal Allergies Weight History: See SEWING ROOM SUPERVISOR notes from initial program visit. Dietary Intake: 24 hour recall provided Breakfast- skipped Lunch- skipped Dinner- burrito - steak and cheese (hot pocket) Snacks-10 gold fish crackers, popsicles Limitations of keeping a food record: reports that she struggles with writing/documentation Food Allergies: N/A Frequency of fried foods (deep fried/chadian fries/fried chicken etc):Occasionally (3 - 4 times per week) Frequency of high sugar foods (candies, ice cream, cookies, ..etc): Rarely (1 - 2 times per week) Frequency of snack-type foods (chips, crackers..etc): Rarely (1 - 2 times per week) Frequency of caffeine beverages: Occasionally (3 - 4 times per week) regular coke (previously) Frequency of carbonated beverages: Occasionally (3 - 4 times per week) - regular coke (previously) Frequency of alcoholic beverages: Never Frequency of full sugar beverages (juices/sweet teas..etc): Occasionally (3 - 4 times per week) - regular coke (previously) Frequency of dining out meals: Rarely (1 - 2 times per week) Physical Activity: Physical conditions limiting activity (injury or chronic condition): arthritis in knees, sciatica Are you endorsing in any routine exercise?: ADLs READINESS TO LEARN Cognitive ability: Alert and oriented Motivation to learn: Eager Family support: daughter present Instruction provided to: Patient and Family member Patient learns best by: Individual Instruction Factors affecting learning: Unable to assess Physical limitations affecting learning: None Nutrition Diagnosis: Overweight/obesity related to nutrition knowledge deficit as evidenced by BMI above normative range for age and gender, Inadequate physical activity for weight loss , skipping meals per recall , and frequent intake of: fried foods . Nutrition Intervention: Start to follow meal guidelines provided and work toward goals outlined below. Nutrition Monitoring & Evaluation: Monthly supervised wt loss to evaluate weight loss efforts with patient protein goal of 48-60g in addition to requirements from nutrition checklist provided by Dietitian during visit and sent via [employer] message. Required months of supervised weight loss per insurance: per SEWING ROOM SUPERVISOR notes [facility] Patient agreement was reviewed and Lizyz Gant received a copy of the patient agreement. The patient is aware by receiving this agreement, this accepts their understanding of the agreement and that surgery may not be recommended for medical and behavorial health reasons. Goals: Goals formal exercise 5-7x/week as tolerated, goal of 30 minutes OR 150 minutes of activity per week aim for 3 meals or 5-6 small meals per day with a protein source - can use 1 protein shake as 1 meal replacment journal daily and bring to all appointments Total time in direct patient contact = 55 min. Greater than 50% of the time was spent in counselingand/or coordination of care. Gala Schrader RD This note was generated using voice recognition technology and may contain grammatical errors. documented in this [facility] NoteEducation (AGGENS4) LIZZY GANT ([id number]) 1965 F T Date Time Provider Department 10/13/23 11:00 AM GALA SCHRADER4 Reason for Visit: New Patient [[id number]] Primary Visit Diagnosis:Class 3 severe obesity due to excess calories with serious comorbidity and body mass index (BMI) of 45.0 to 49.9 in adult ([facility]) [E66.01, Z68.42] During your visit today, we recorded the following information about you: Weight Height 115.8 kg 1.588 m Allergies As of Date: 10/13/2023 Noted Allergy Reaction IV CONTRAST (IODINE) 04/14/2023 7 - Swelling SEASONAL ALLERGIES 04/08/2021 5 - Intolerance Date Reviewed: 09/20/2023 Reviewed by: Gunner Sutton APRN.[employer] PULLER - Fully Assessed Prescriptions as of 10/13/2023 - cholecalciferol, Vitamin D3, (VITAMIN D3) 1,250 mcg (50,000 unit) cap capsule Take 1 capsule by mouth one time a week for 12 doses. Transition to 4,000-5,000 units of Vitamin D [id number] after completing 12 weeks of high-dose therapy. - diclofenac, EC, (VOLTAREN) 75 mg EC tablet take 1 tablet by mouth twice a day - torsemide (DEMADEX) 20 mg tablet take 1 tablet by mouth twice a day (STOP FUROSEMIDE) - OMEPRAZOLE, BULK, MISC 40 mg once daily. - levothyroxine (SYNTHROID) 100 mcg tablet Take 1 tablet by mouth once daily. Per [facility]. - colestipol (COLESTID) 1 gram tablet Take 2 tablets by mouth two times a day. - albuterol HFA (PROAIR HFA) 90 mcg/actuation inhaler Inhale 2 Puffs as instructed every 4 hours as needed. - fluticasone (FLONASE) 50 mcg/actuation nasal spray instill 2 sprays into each nostril once daily at bedtime - fluticasone (FLOVENT HFA) 220 mcg/actuation inhaler Inhale 1 Puff as instructed two times a day. Shake well before use. Rinse mouth after use. - hydrocortisone 2.5 % cream Apply 1 application to affected area two times a day as needed (Apply sparingly to rash of hands, arms, legs for 1 week.). - furosemide (LASIX) 40 mg tablet Take 1 tablet by mouth two times a day. Per [facility] - spironolactone (ALDACTONE) 25 mg tablet Take 1 tablet by mouth every afternoon. Per [facility] - traMADol (ULTRAM) 50 mg tablet Take 1 tablet by mouth every 6 hours as needed for pain. - olopatadine (PATANOL) 0.1 % ophthalmic solution - EYE ITCH RELIEF 0.025 % (0.035 %) ophthalmic solution instill 1 drop into both eyes twice a day if needed - dicyclomine (BENTYL) 10 mg capsule 10 mg. - pantoprazole DR (PROTONIX) 40 mg tablet Take 1 tablet by mouth twice daily. Take on empty stomach, 1/2 hr before meal. - nitroglycerin sublingual (NITROQUICK) 0.4 mg SL [...] mask of choice, HUMIDITY. LIFETIME SUPPLIES. DME: [facility] Follow-up and Disposition History for Encounter Date Provider Department Center 10/13/2023 [id number], LINDSEY AGGENS4 [facility] Encounter Status:Closed by GALA SCHRADER on 10/13/23[facility]08-01-2024 NoteHNO ID: [id number] Author: GALA SCHRADER RD Service: ? Author Type: Registered Dietitian Type: Progress Notes Filed: 10/13/2023 13:56 Note Text: [facility] - Bariatric Department New Patient Nutritional Assessment Patient seen individually in office. Family member with patient. Lizzy Gant Month 05/17 Adjusted protein due to CKD III - 48-60g Anthropometrics: 58 year old female Ht 158.8 cm (5' 2.5 ) Wt 115.8 kg (255 lb 3.2 oz) LMP (LMP Unknown) BMI 45.93 kg/m? Percent Body Fat: deferred Medical History: PAST MEDICAL HISTORY 06/13/2008: Asthma 01/2019: Atypical chest pain Comment: heart cath normal 04/08/2021: Bile-induced gastritis No date: Calcium deposits in tendon and bursa Comment: right knee 07/22/2020: Chronic cholecystitis 07/31/2015: Chronic midline low back pain without sciatica No date: CKD stage 3a, GFR 45-59 ml/min ([facility]) 07/17/2020: Colon polyp No date: Dermatophytosis of the body 06/13/2008: Edema 07/29/2010: GERD (gastroesophageal reflux disease) 07/17/2020: Hiatal hernia Comment: medium sized seen on EGD No date: Infectious mononucleosis No date: Irregular menstrual cycle No date: Morbid obesity with BMI of 45.0-49.9, adult ([facility]) No date: Tobacco use disorder No date: Unspecified hearing loss Comment: left ear - wears hearing aid No date: Unspecified hypothyroidism Medications: Current Outpatient Medications Medication Sig Dispense Refill cholecalciferol, Vitamin D3, (VITAMIN D3) 1,250 mcg (50,000 unit) cap capsule Take 1 capsule by mouth one time a week for 12 doses. Transition to 4,000-5,000 units of Vitamin D [id number] after completing 12 weeks of high-dose therapy. 12 capsule 0 diclofenac, EC, (VOLTAREN) 75 mg EC tablet take 1 tablet by mouth twice a day 180 tablet 2 torsemide (DEMADEX) 20 mg tablet take 1 tablet by mouth twice a day (STOP FUROSEMIDE) OMEPRAZOLE, BULK, MISC 40 mg once daily. levothyroxine (SYNTHROID) 100 mcg tablet Take 1 tablet by mouth once daily. Per [facility]. 30 tablet colestipol (COLESTID) 1 gram tablet Take 2 tablets by mouth two times a day. albuterol HFA (PROAIR HFA) 90 mcg/actuation inhaler Inhale 2 Puffs as instructed every 4 hours as needed. 1 Each 1 fluticasone (FLONASE) 50 mcg/actuation nasal spray instill 2 sprays into each nostril once daily at bedtime 1 Each 5 fluticasone (FLOVENT HFA) 220 mcg/actuation inhaler Inhale 1 Puff as instructed two times a day. Shake well before use. Rinse mouth after use. 1 Each 5 hydrocortisone 2.5 % cream Apply 1 application to affected area two times a day as needed (Apply sparingly to rash of hands, arms, legs for 1 week.). 28 g 5 furosemide (LASIX) 40 mg tablet Take 1 tablet by mouth two times a day. Per [facility] (Patient not taking: Reported on 09/08/2023) spironolactone (ALDACTONE) 25 mg tablet Take 1 tablet by mouth every afternoon. Per [facility] traMADol (ULTRAM) 50 mg tablet Take 1 tablet by mouth every 6 hours as needed for pain. 20 tablet 0 olopatadine (PATANOL) 0.1 % ophthalmic solution EYE ITCH RELIEF 0.025 % (0.035 %) ophthalmic solution instill 1 drop into both eyes twice a day if needed dicyclomine (BENTYL) 10 mg capsule [address] (PROTONIX) 40 mg tablet Take 1 tablet by mouth twice daily. Take on empty stomach, 1/2 hr before meal. nitroglycerin sublingual (NITROQUICK) 0.4 mg SL tablet 0.4 mg. aspirin, enteric coated (ASPIRIN, ENTERIC COATED) 81 mg EC tablet Take 1 tablet by mouth once daily. 0 atorvastatin (LIPITOR) 20 mg tablet Take 20 mg by mouth once daily. 0 carvedilol (COREG) 3.125 mg tablet Take 1 tablet by mouth once daily. potassium chloride SR (MICRO-K) 10 mEq CR capsule Take 1 capsule by mouth once daily. 30 capsule 6 CPAP AutoPAP 5-15 CM H2O with flex/EPR option, ramp, mask of choice, HUMIDITY. LIFETIME SUPPLIES. DME: [facility] 1 Device 0 No current facility-administered medications for this visit. Allergies: Iv Contrast [Iodine] and Seasonal Allergies Weight History: See SEWING ROOM SUPERVISOR notes from initial program visit. Dietary Intake: 24 hour recall provided Breakfast- skipped Lunch- skipped Dinner- burrito - steak and cheese (hot pocket) Snacks-10 gold fish crackers, popsicles Limitations of keeping a food record: reports that she struggles with writing/documentation Food Allergies: N/A Frequency of fried foods (deep fried/chadian fries/fried chicken etc):Occasionally (3 - 4 times per week) Frequency of high sugar foods (candies, ice cream, cookies, ..etc): Rarely (1 - 2 times per week) Frequency of snack-type foods (chips, crackers..etc): Rarely (1 - 2 times per week) Frequency of caffeine beverages: Occasionally (3 - 4 times per week) regular coke (previously) Frequency of carbonated beverages: Occasionally (3 - 4 times per week) - regular coke (previously) Frequency of alcoho (more content not included)...[facility] 09-20-2023 Instructions* Patient Instructions* Gunner Sutton APRN.GREEN CH[employer] PULLER - 09/20/2023 11:27 AM EDT [email or web address] Welcome to the first step towards your new healthy life! As we discussed, please review the [facility] program and contract. Review with the handouts that were provided which include: the platediet, food journal, follow-up schedule, bariatric patient flowsheet, and support group flyer with upcoming dates. Please incorporate efforts at eating 3 meals per day with each meal lasting no longer than 30 minutes. Anything longer would be considered grazing . Also, begin incorporating exercise 4-5 times per week for 30 minutes. This will help you achieve your presurgical weight loss goal. Please attend educational class as scheduled. Please maintain your appointment with our psychologist for your evaluation as directed. Please complete any additional orders and/or testing as directed by your provider. You will see us on a 4-6 week basis for medically supervised weight loss and we'llprogress you towards surgery. Please note, per your insurance, you will need to complete 6 consecutive months in the bariatric program. Visits included are with the surgeon, nurse practitioner, and/or maintenance parts technician. Height: Last 1 Encounter Ht Readings: Date: Ht: 09/08/2023 157.5 cm (5' 2 ) Weight:Last 1 Encounter Wt Readings: Date: Wt: 09/08/2023 258 lb [place] Body Weight: 136 lb Based on body mass index (BMI) of 25 kg/m2 which is considered the upper limit of normal weight. Excess Weight: 122 lb Realistic Sleeve Gastrectomy Weight Goal (55-76 % Excess weight loss): 165 - 190 lb Realistic Gastric Bypass Weight Goal (60-80 % Excess weight loss): 160 - 184 lb Surgery is not the cure for obesity. It is a tool that can assist with weight loss and long-term management. However, this tool can be incredibly powerful with healthy eating and activity patterns. Diet: Three high-protein meals per day plus a healthy snack if needed. The goal is for each meal isabel high in protein and relatively low in fat and carbohydrates. A meal should only last approximately 30 minutes. Physical Activity: 20-30 minutes of continuous exercise 5-6 times a week. This must be dedicated physical activity of moderate intensity (elevated heart rate) to promote calorie burning. documented in [facility]24 NoteHNO ID: [id number] Author: GUNNER SUTTON APRN.ERICK Service: ? Author Type: Nurse Practitioner Type: Progress Notes Filed: 09/20/2023 12:41 Note Text: BARIATRIC SURGERY NEW PATIENT CONSULTATION HISTORY AND PHYSICAL Date: September 20, 2023 Name: Lizzy Gant CHIEF COMPLAINT: This is a 58 year old female with morbid obesity (Body mass index is 46.41 kg/m?.) who presents to clinic for consideration of bariatric surgery. HISTORY OF PRESENTING ILLNESS: Lizzy Gant presents today for consideration of bariatric surgery. She has suffered from weight problems for the majority of her lifespan and has numerous attempts at weight loss. This individual has lost weight through diet and exercise attempts, however ultimately regained this weight. Furthermore, she is pursuing RYGB with [facility] to treat severe GERD. She has been following up in the heartburn clinic with Dr. Herzog. PMH: She has struggled with severe GERD since childhood. She takes pantoprazole 40mg BID and omeprazole once daily. She still has breakthrough regurgitation. She also has a PEH and bile gastritis as well as IBS. She has Afib and takes Coreg and baby asa daily. 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 She has hyperlipidemia, taking Colestid. She has LE lymphedema, taking Torsemide and spironolactone. She has VETO and uses BiPAP nightly. 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 She has asthma, using inhalers as needed. She has chronic back and knee pain, and takes diclofenac as needed. She has CKD3 and follows up with nephrology at [facility]. She has hypothyroid, taking Synthroid daily. Social history: quit smoking in 2009, no relapse. She denies SHS, alcohol, MJ, and illicit drug use. Surgical history: cholecystectomy, right and left heart cath, EGD w/ biopsy and manometry HISTORY REVIEWED (electronic chart updated): - medical history - medications - allergies - social history PAST MEDICAL HISTORY Diagnosis Date Asthma 06/13/2008 Atypical chest pain 01/2019 heart cath normal Bile-induced gastritis 04/08/2021 Calcium deposits in tendon and bursa right knee Chronic cholecystitis 07/22/2020 Chronic midline low back pain without sciatica 07/31/2015 CKD stage 3a, GFR 45-59 ml/min ([facility]) Colon polyp 07/17/2020 Dermatophytosis of the body Edema 06/13/2008 GERD (gastroesophageal reflux disease) 07/29/2010 Hiatal hernia 07/17/2020 medium sized seen on EGD Infectious mononucleosis Irregular menstrual cycle Morbid obesity with BMI of 45.0-49.9, adult ([facility]) Tobacco use disorder Unspecified hearing loss left ear - wears hearing aid Unspecified hypothyroidism PAST SURGICAL HISTORY Procedure Laterality Date 48 HOUR PH STUDY 07/21/2023 Dr. Herzog COLONOSCOPY SCREENING 07/17/2020 EGD WITH BIOPSY(S) 07/17/2020 medium sized hiatal hernia; Dr. Escalante EGD WITH BIOPSY(S) 07/21/2023 3 cm hiatal hernia; Dr. Herzog ESOPHAGEAL MANOMETRY 07/21/2023 Dr. Herzog LAPS SURG CHOLECYSTECTOMY W/CHOLANGIOGRAPHY 07/22/2020 [facility] LEFT HEART CATH,PERCUTANEOUS 01/23/2019 L [facility] R heart catheterization vamshi. FAMILY HISTORY Problem Relation Age of Onset Diabetes Maternal Grandmother Hypertension Brother Hypertension Sister Hypertension Mother Hypertension Father Seizures Sister Seizures Brother Cancer Father brain SOCIAL HISTORY: Social History Tobacco Use Smoking status: Former Packs/day: 1.00 Years: 15.00 Additional pack years: 0.00 Total pack years: 15.00 Types: Cigarettes Quit date: 05/30/2009 Years since quittin.3 Smokeless tobacco: Never Tobacco comments: started age 16 Vaping Use Vaping Use: Never used Substance Use Topics Alcohol use: Not Currently Drug use: Never MEDICATIONS: Prior to Admission Medications: diclofenac, EC, (VOLTAREN) 75 mg EC tablet take 1 tablet by mouth twice a day torsemide (DEMADEX) 20 mg tablet take 1 tablet by mouth twice a day (STOP FUROSEMIDE) OMEPRAZOLE, BULK, MISC 40 mg once daily. levothyroxine (SYNTHROID) 100 mcg tablet Take 1 tablet by mouth once daily. Per [facility]. colestipol (COLESTID) 1 gram tablet Take 2 tablets by mouth two times a day. albuterol HFA (PROAIR HFA) 90 mcg/actuation inhaler Inhale 2 Puffs as instructed every 4 hours as needed. fluticasone (FLONASE) 50 mcg/actuation nasal spray instill [...] of hands, arms, legs for 1 week.). furosemide (LASIX) 40 mg tablet Take 1 tablet by mouth two times a day. Per [facility] (Patient not taking: Reported on 09/08/2023) spironolactone (ALDACTONE) 25 mg tablet Take 1 tablet by mouth every afternoon. Per [facility] (more content not included)...[facility] 09-20-2023 History of Present illness Narrative* Gunner Sutton APRN.[employer] P[employer]ER - 09/20/2023 11:19 AM EDT BARIATRIC SURGERY NEW PATIENT CONSULTATION HISTORY AND PHYSICAL Date: September 20, 2023 Name: Lizzy Gant CHIEF COMPLAINT: This is a 58 year old female with morbid obesity (Body mass index is 46.41 kg/m .) who presents to clinic for consideration of bariatric surgery. HISTORY OF PRESENTING ILLNESS: Lizzy Gant presents today for consideration of bariatric surgery. She has suffered from weight problems for the majority of her lifespan and has numerous attempts at weight loss. This individual has lost weight through diet and exercise attempts, however ultimately regained this weight. Furthermore, she is pursuing RYGB with [facility] to treat severe GERD. She has been following up in the heartburn clinic with Dr. Herzog. PMH: She has struggled with severe GERD since childhood. She takes pantoprazole 40mg BID and omeprazole once daily. She still has breakthrough regurgitation. She also has a PEH and bile gastritis as well as IBS. She has Afib and takes Coreg and baby asa daily. 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 She has hyperlipidemia, taking Colestid. She has LE lymphedema, taking Torsemide and spironolactone. She has VETO and uses BiPAP nightly. 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 She has asthma, using inhalers as needed. She has chronic back and knee pain, and takes diclofenac as needed. She has CKD3 and follows up with nephrology at [facility]. She has hypothyroid, taking Synthroid daily. Social history: quit smoking in 2009, no relapse. She denies SHS, alcohol, MJ, and illicit drug use. Surgical history: cholecystectomy, right and left heart cath, EGD w/ biopsy and manometry HISTORY REVIEWED (electronic chart updated): - medical history - medications - allergies - social history PAST MEDICAL HISTORY Diagnosis Date Asthma 06/13/2008 Atypical chest pain 01/2019 heart cath normal Bile-induced gastritis 04/08/2021 Calcium deposits in tendon and bursa right knee Chronic cholecystitis 07/22/2020 Chronic midline low back pain without sciatica 07/31/2015 CKD stage 3a, GFR 45-59 ml/min ([facility]) Colon polyp 07/17/2020 Dermatophytosis of the body Edema 06/13/2008 GERD (gastroesophageal reflux disease) 07/29/2010 Hiatal hernia 07/17/2020 medium sized seen on EGD Infectious mononucleosis Irregular menstrual cycle Morbid obesity with BMI of 45.0-49.9, adult ([facility]) Tobacco use disorder Unspecified hearing loss left ear - wears hearing aid Unspecified hypothyroidism PAST SURGICAL HISTORY Procedure Laterality Date 48 HOUR PH STUDY 07/21/2023 Dr. Herzog COLONOSCOPY SCREENING 07/17/2020 EGD WITH BIOPSY(S) 07/17/2020 medium sized hiatal hernia; Dr. Escalante EGD WITH BIOPSY(S) 07/21/2023 3 cm hiatal hernia; Dr. Herzog ESOPHAGEAL MANOMETRY 07/21/2023 Dr. Herzog LAPS SURG CHOLECYSTECTOMY W/CHOLANGIOGRAPHY 07/22/2020 [facility] LEFT HEART CATH,PERCUTANEOUS 01/23/2019 L & R heart catheterization vamshi. FAMILY HISTORY Problem Relation Age of Onset Diabetes Maternal Grandmother Hypertension Brother Hypertension Sister Hypertension Mother Hypertension Father Seizures Sister Seizures Brother Cancer Father brain SOCIAL HISTORY: Social History Tobacco Use Smoking status: Former Packs/day: 1.00 Years: 15.00 Additional pack years: 0.00 Total pack years: 15.00 Types: Cigarettes Quit date: 05/30/2009 Years since quittin.3 Smokeless tobacco: Never Tobacco comments: started age 16 Vaping Use Vaping Use: Never used Substance Use Topics Alcohol use: Not Currently Drug use: Never MEDICATIONS: Prior to Admission Medications: diclofenac, EC, (VOLTAREN) 75 mg EC tablet take 1 tablet by mouth twice a day torsemide (DEMADEX) 20 mg tablet take 1 tablet by mouth twice a day (STOP FUROSEMIDE) OMEPRAZOLE, BULK, MISC 40 mg once daily. levothyroxine (SYNTHROID) 100 mcg tablet Take 1 tablet by mouth once daily. Per [facility]. colestipol (COLESTID) 1 gram tablet Take 2 tablets by mouth two times a day. albuterol HFA (PROAIR HFA) 90 mcg/actuation inhaler Inhale 2 Puffs as instructed every 4 hours as needed. fluticasone (FLONASE) 50 mcg/actuation nasal spray instill [...] of hands, arms, legs for 1 week.). furosemide (LASIX) 40 mg tablet Take 1 tablet by mouth two times a day. Per [facility] (Patient not taking: Reported on 09/08/2023) spironolactone (ALDACTONE) 25 mg tablet Take 1 tablet by mouth every afternoon. Per [facility] traMADol (ULTRAM) 50 mg tablet Take 1 [...] on empty stomach, 1/2 hr before meal. nitroglycerin sublingual (NITROQUICK) 0.4 mg SL tablet [...] mask of choice, HUMIDITY. LIFETIME SUPPLIES. DME: [facility] ALLERGIES Allergen Reactions Iv Contrast [Iodine] Swelling Seasonal Allergies Intolerance Sleep apnea screen: Current VETO dx, using BiPAP REVIEW OF SYSTEMS: Review of Systems Constitutional: Negative for chills, fever, malaise/fatigue and weight loss. HENT: Negative. Eyes: Negative. Respiratory: Negative for cough and shortness of breath. Cardiovascular: Positive for leg swelling. Negative for chest pain and palpitations. Gastrointestinal: Positive for heartburn. Negative for abdominal pain, blood in stool, constipation, diarrhea, melena, nausea and vomiting. Genitourinary: Negative. Musculoskeletal: Positive for back pain, joint pain and myalgias. Skin: Negative. Neurological: Negative for dizziness and headaches. Psychiatric/Behavioral: Negative. PHYSICAL EXAM: BP 128/74 Pulse 63 Ht 158.8 cm (5' 2.52 ) Wt 117 kg (258 lb) LMP (LMP Unknown) BMI 46.41 kg/m Physical Exam Vitals reviewed. Constitutional: General: She is not in acute distress. Appearance: Normal appearance. She is obese. She is not ill-appearing or toxic-appearing. Pulmonary: Effort: Pulmonary effort is normal. Abdominal: Comments: Obese Musculoskeletal: General: Normal range of motion. Cervical back: Normal range of motion. Skin: General: Skin is warm and dry. Neurological: Mental Status: She is alert. Psychiatric: Mood and Affect: Mood normal. Behavior: Behavior normal. Diagnostic Tests Reviewed for Today's Visit No new labs Further Work-up: Required monthly visits: 1 of 6 months Patient is interested in: Gastric Bypass with PEHR EGD: surgeon Upper GI: surgeon PRIYANKA US: ordered today Sleep Study: current VETO CXR: per pulmonology clearance EKG: per cardiac clearance H Pylori: pending Labs: ordered today --CBC, CMP reviewed from 08/24 --A1c reviewed from 07/12 Nicotine use <12 months: No, ordered per insurance Tox screen: ordered per insurance Antiplatelet/anticoagulants: baby asa Immunosuppressive therapy: No Estrogen therapy: No Evaluations: Psychology: ongoing Nutrition: ongoing Education class: ongoing Clearances: Cardiac, Pulmonary, and PCP Risk Calculator: VTE Risk: 0.31 - 0.49% ISS score: not diabetic Adverse Event score: NA Post-op Medications: Extended Lovenox: Yes for RYGB Actigall: No, s/p cholecystectomy PPI: currently taking pantoprazole + omeprazole Tylenol: Yes Zofran: Yes IMPRESSION AND PLAN: Lizzy Gant is a 58 year old female with the following diagnosis and co-morbidities: Body mass index is 46.41 kg/m . This patient does meet the criteria for a surgical weight loss procedure according to NIH guidelines. Time was spent discussing both surgical options as well as she was provided with estimations in terms of percent excess weight loss. Today, we discussed that Lizzy Gant will need to complete a 6 consecutive month trial of diet and exercise per insurance requirements. Therefore, Lizzy Gant received 10-15 minutes of dietary counseling in office today, as well as was scheduled for our shared education class. she will also need to be cleared by psychology and other specialties deemed necessary per insurance ie. Cardiology,pulmonology, etc. We discussed that monthly insurance requirements include visits with the surgeon,SEWING ROOM SUPERVISOR, and/or RD. If applicable, we discussed not becoming for 2 years after surgery. Getting while quickly losing weight could hurt you and your unborn baby. ASSESSMENT/PLAN: 1. Class 3 severe obesity due to excess calories with serious comorbidity and body mass index (BMI)of 45.0 to 49.9 in adult (HCC) - ICD9: 278.01, V85.42, ICD10: E66.01, Z68.42 (primary diagnosis) - Medical nutrition therapy with dietitian and - Psychology - ZINC BLD - VITAMIN D 25 HYDROXY - VITAMIN B12 - VITAMIN B1 (THIAMINE), WHOLE BLOOD - VITAMIN A/RETINOL - THYROID STIMULATING HORMONE - TOXICOLOGY SCREEN, ROUTINE URINE - PTH INTACT - NICOTINE & METAB, UR - LIPID PANEL BASIC - IRON AND TIBC - FOLATE, SERUM - FERRITIN - US ABD RIGHT UPPER QUADRANT Nutrition Counseling Practice these: - Eat 3 meals daily--can use approved/recommended protein shake as 1 meal replacement (should be <200 calories, 20-30g protein, <5g added sugar) - Keep a food journal 5-7x/week (consider NanoInk or Service Route sue) and demonstrate meeting protein goal (60-90g protein for females, 70-105g protein for males)- Lean meats, fish, low fat dairy - cottage cheese, [place] yogurt, light yogurt, cheese, ricotta cheese, nuts, peanut butter, beans/legumes. Eat protein first at all meals. and 64oz of caffeine-free, carbonation-free fluids at least 5 days per week - engage in formal, planned exercise 5x/week for 30 minutes of cardiovascular activity OR 150+ minutes of cardiovascular activity per week - eliminate all caffeine, carbonation, alcohol and sugar-containing beverages from diet --consider sugar-free drink mixes, water, decaf coffee and tea - Separate eating and drinking by 30 minutes - Chew your food 20-30x per bite - Sip beverages slowly--no guzzling or gulping 2. Gastroesophageal reflux disease without esophagitis - ICD9: 530.81, ICD10: K21.9 - Continue pantoprazole and omeprazole daily. 3. Paraesophageal hernia - ICD9: 553.3, ICD10: K44.9 - Repair at time of bariatric surgery. 4. Irritable bowel syndrome, unspecified type - ICD9: 564.1, ICD10: K58.9 - Continue follow up with GI. 5. Atrial fibrillation, unspecified type (HCC) - ICD9: 427.31, ICD10: I48.91 - Continue medications and follow up with cardiology. 6. Hyperlipidemia, unspecified hyperlipidemia type - ICD9: 272.4, ICD10: E78.5 - Continue current medications - Counseled on healthy diet and regular exercise 7. Lymphedema - ICD9: 457.1, ICD10: I89.0 - Continue current medical management. 8. VETO treated with BiPAP - ICD9: 327.23, ICD10: G47.33 - Continue BiPAP nightly and follow up with pulmonology. 9. Asthma, unspecified asthma severity, unspecified whether complicated, unspecified whether persistent - ICD9: 493.90, ICD10: J45.909 - Continue current medications - Avoidance of triggers recommended 10. Arthralgia, unspecified joint - ICD9: 719.40, ICD10: M25.50 - Taking diclofenac as needed 11. Stage 3 chronic kidney disease, unspecified whether stage 3a or 3b CKD (HCC) - ICD9: 585.3, ICD10: N18.30 - Continue current medical management and follow up with nephrology. 12. Hypothyroidism, unspecified type - ICD9: 244.9, ICD10: E03.9 - Continue medication daily. We will continue to see Lizzy Gant on a monthly basis until all clearances and testing are complete. Follow up with surgeon next month for further assessment and testing. I spent a total of 60 minutes on the date of the service which included preparing to see the patient, [id number] patient care, completing clinical documentation, obtaining and/or reviewing separately obtained history, performing a medically appropriate examination, counseling and educating the pat ient/family/caregiver, ordering medications, tests, or procedures, and communicating results to thepatient/family/caregiver. Gunner Sutton APRN.CNP Medical Decision Making: Problems: Moderate: 2+ stable chronic illnesses Data: Unique source(s) for external note(s) reviewed: 2 Unique test result(s) reviewed: 2 Unique test(s) ordered: 2 Assessment requiring an independent historian(s) Medical Decision Making Level: 4 - Moderate [facility] Telephone encounter Note * Telephone Encounter - Jorge Luis Schrader - 09/08/2023 4:07 PM EDT Insurance Verification Insurance Company: [employer] Provider Phone #: [phone] Agent: Kait Effective Date: 04/14/22 Call Reference #: [id number] Months of Wt Loss: 6 Consecutive: 6 Months of Weight History:6 Obesity Medicine Coverage: yes COVERAGE: RNY-yes SLEEVE-yes BYPASS-yes REQUIREMENTS: Pulmonary Clearance: yes Cardiac Clearance: yes Nicotine Testing: yes Drug Testing: yes TSH Testing: yes If Female patient, is test required: In Network %-100 [employer]: Yang Provider: Danny [facility]06-[facility] Miscellaneous Notes* Telephone Encounter - Jorge Luis Schrader - 09/08/2023 4:07 PM EDT Insurance Verification Insurance Company: [employer] Provider Phone #: [phone] Agent: Kait Effective Date: 04/14/22 Call Reference #: [id number] Months of Wt Loss: 6 Consecutive: 6 Months of Weight History:6 Obesity Medicine Coverage: yes COVERAGE: RNY-yes SLEEVE-yes BYPASS-yes REQUIREMENTS: Pulmonary Clearance: yes Cardiac Clearance: yes Nicotine Testing: yes Drug Testing: yes TSH Testing: yes If Female patient, is test required: In Network %-100 [facility]: Yang Provider: Danny documented in this encounterMer[facility]06-27-2024 NoteHNO ID: [id number] Author: MARY JO HERZOG MD Service: ? Author Type: Physician Type: Progress Notes Filed: 09/08/2023 10:51 Note Text: SURGICAL SERVICES HISTORY AND PHYSICAL EXAMINATION SERVICE DATE: 09/08/2023 SERVICE TIME: 10:31 AM PRIMARY CARE PHYSICIAN: Sam Null MD SUBJECTIVE CHIEF COMPLAINT: reflux HISTORY OF PRESENT ILLNESS: Ms. Gant is a 58 year old female with a PMH of asthma (inhalers; Flonase), atrial fibrillation (Coreg, ASA), atypical chest pain, bile gastritis, chronic back pain/arthritis, CKD stage 3, obesity (BMI 45.92--> 47.37; weight stable at 259 pounds), hypothyroidism (synthroid), history of tobacco use, IBS, hiatal hernia and GERD who presents for follow up after testing. Today she reports no overall changes in her health or medications since her last visit aside from her other physicians transitioning her from Lasix to Torsemide. Workup: - EGD (07/21/23;Danny): 3 cm paraesophageal hernia; HG 4 GEJ - Pathology: WNL - KIRK: De[place]ter 15 with SAP 100 for heartburn and regurg - Mano: No chicago classification abnormalities - EGD (Cebul; 07/17/20): medium-sized hiatal hernia; gastritis of the antrum - UGI (03/22/23): normal GEJ without hernia - GES (12/30/22): normal gastric emptying time - CT abd/pelvis (04/07/23): no acute abnormality Per my last clinic note: reports a long history of reflux symptoms - since she was a child. She has taken medication for reflux as long as she can recall. At the age of 16 she began to take prescription medications. Since 1987 she has worked on maintaining weight. Her BMI is 45.92 today and her weight is 259 pounds. The lowest weight she can recall was 200 pounds. She endorses symptoms of belching, burping, sour taste in her mouth, regurgitation of food and acid. Symptoms occur during the day and are nocturnal as well. She endorses intermittent difficulty swallowing - this occurs several times per week. She takes Protonix 40 mg BID and Omeprazole 40 mg once daily. She states that if she does not take these medications she experiences severe GERD symptoms. Social: former smoker - quit in 2009 without recidivism; denies use of etoh or illicit drugs; on disability due to joint pain and arthritis. PSHx: Lap CCx, left and right heart cath PAST MEDICAL HISTORY: PAST MEDICAL HISTORY Diagnosis Date Asthma 06/13/2008 Atypical chest pain 01/2019 heart cath normal Bile-induced gastritis 04/08/2021 Calcium deposits in tendon and bursa right knee Chronic cholecystitis 07/22/2020 Chronic midline low back pain without sciatica 07/31/2015 CKD stage 3a, GFR 45-59 ml/min ([facility]) Colon polyp 07/17/2020 Dermatophytosis of the body Edema 06/13/2008 GERD (gastroesophageal reflux disease) 07/29/2010 Hiatal hernia 07/17/2020 medium sized seen on EGD Infectious mononucleosis Irregular menstrual cycle Morbid obesity with BMI of 45.0-49.9, adult (HCC) Tobacco use disorder Unspecified hearing loss left ear - wears hearing aid Unspecified hypothyroidism PAST SURGICAL HISTORY: PAST SURGICAL HISTORY Procedure Laterality Date 48 HOUR PH STUDY 07/21/2023 Dr. Herzog COLONOSCOPY SCREENING 07/17/2020 EGD WITH BIOPSY(S) 07/17/2020 medium sized hiatal hernia; Dr. Escalante EGD WITH BIOPSY(S) 07/21/2023 3 cm hiatal hernia; Dr. Herzog ESOPHAGEAL MANOMETRY 07/21/2023 Dr. Herzog LAPMilagros SURG CHOLECYSTECTOMY W/CHOLANGIOGRAPHY 07/22/2020 [facility] LEFT HEART CATH,PERCUTANEOUS 01/23/2019 L AND [...] Types: Cigarettes Quit date: 05/30/2009 Years since quittin.2 Smokeless tobacco: Never Tobacco comments: started age 16 Vaping Use Vaping Use: Never used Substance Use Topics Alcohol use: Not Currently Drug use: Never MEDICATIONS: Current Outpatient Medications Medication Sig torsemide (DEMADEX) 20 mg tablet take 1 tablet by mouth twice a day (STOP FUROSEMIDE) OMEPRAZOLE, BULK, MISC 40 mg once daily. levothyroxine (SYNTHROID) 100 mcg tablet Take 1 tablet by mouth once daily. Per [facility]. colestipol (COLESTID) 1 gram tablet Take 2 tablets by mouth two times a day. albuterol HFA (PROAIR HFA) 90 mcg/actuation inhaler Inhale 2 Puffs as instructed every 4 hours as needed. fluticasone (FLONASE) 50 mcg/actuation nasal spray instill 2 sprays into each nostril once daily at bedtime fluticasone (FLOVENT HFA) 220 mcg/actuation inhaler Inhale 1 Puff as instructed two times a day. Shake well before use. Rinse mouth after use. hydrocortisone 2.5 % (more content not included)...[facility] 09-08-2023 History of Present illness Narrative* Mary Jo Herzog MD - 09/08/2023 10:30 AM EDT SURGICAL SERVICES HISTORY AND PHYSICAL EXAMINATION SERVICE DATE: 09/08/2023 SERVICE TIME: 10:31 AM PRIMARY CARE PHYSICIAN: Sam Null MD SUBJECTIVE CHIEF COMPLAINT: reflux HISTORY OF PRESENT ILLNESS: Ms. Gant is a 58 year old female with a PMH of asthma (inhalers; Flonase), atrial fibrillation (Coreg, ASA), atypical chest pain, bile gastritis, chronic back pain/arthritis, CKD stage 3, obesity (BMI 45.92--> 47.37; weight stable at 259 pounds), hypothyroidism (synthroid), history of tobacco use, IBS, hiatal hernia and GERD who presents for follow up after testing. Today she reports no overall changes in her health or medications since her last visit aside from her other physicians transitioning her from Lasix to Torsemide. Workup: - EGD (07/21/23;Danny): 3 cm paraesophageal hernia; HG 4 GEJ - Pathology: WNL - KIRK: De[place]ter 15 with SAP 100 for heartburn and regurg - Mano: No chicago classification abnormalities - EGD (Cebul; 07/17/20): medium-sized hiatal hernia; gastritis of the antrum - UGI (03/22/23): normal GEJ without hernia - GES (12/30/22): normal gastric emptying time - CT abd/pelvis (04/07/23): no acute abnormality Per my last clinic note: reports a long history of reflux symptoms - since she was a child. She hastaken medication for reflux as long as she can recall. At the age of 16 she began to take prescription medications. Since 1987 she has worked on maintaining weight. Her BMI is 45.92 today and her weight is 259 pounds. The lowest weight she can recall was 200 pounds. She endorses symptoms of belching, burping, sour taste in her mouth, regurgitation of food and acid. Symptoms occur during the day and are nocturnal as well. She endorses intermittent difficulty swallowing - this occurs several times per week. She takes Protonix 40 mg BID and Omeprazole 40 mg once daily. She states that if she does not take these medications she experiences severe GERD symptoms. Social: former smoker - quit in 2009 without recidivism; denies use of etoh or illicit drugs; on disability due to joint pain and arthritis. PSHx: Lap CCx, left and right heart cath PAST MEDICAL HISTORY: PAST MEDICAL HISTORY Diagnosis Date Asthma 06/13/2008 Atypical chest pain 01/2019 heart cath normal Bile-induced gastritis 04/08/2021 Calcium deposits in tendon and bursa right knee Chronic cholecystitis 07/22/2020 Chronic midline low back pain without sciatica 07/31/2015 CKD stage 3a, GFR 45-59 ml/min ([facility]) Colon polyp 07/17/2020 Dermatophytosis of the body Edema 06/13/2008 GERD (gastroesophageal reflux disease) 07/29/2010 Hiatal hernia 07/17/2020 medium sized seen on EGD Infectious mononucleosis Irregular menstrual cycle Morbid obesity with BMI of 45.0-49.9, adult ([facility]) Tobacco use disorder Unspecified hearing loss left ear - wears hearing aid Unspecified hypothyroidism PAST SURGICAL HISTORY: PAST SURGICAL HISTORY Procedure Laterality Date 48 HOUR PH STUDY 07/21/2023 Dr. Herzog COLONOSCOPY SCREENING 07/17/2020 EGD WITH BIOPSY(S) 07/17/2020 medium sized hiatal hernia; Dr. Escalante EGD WITH BIOPSY(S) 07/21/2023 3 cm hiatal hernia; Dr. Herzog ESOPHAGEAL MANOMETRY 07/21/2023 Dr. Danny LIANG SURG CHOLECYSTECTOMY W/CHOLANGIOGRAPHY 07/22/2020 [facility] LEFT [...] Types: Cigarettes Quit date: 05/30/2009 Years since quittin.2 Smokeless tobacco: Never Tobacco comments: started age 16 Vaping Use Vaping Use: Never used Substance Use Topics Alcohol use: Not Currently Drug use: Never MEDICATIONS: Current Outpatient Medications Medication Sig torsemide (DEMADEX) 20 mg tablet take 1 tablet by mouth twice a day (STOP FUROSEMIDE) OMEPRAZOLE, BULK, MISC 40 mg once daily. levothyroxine (SYNTHROID) 100 mcg tablet Take 1 tablet by mouth once daily. Per [facility]. colestipol (COLESTID) 1 gram tablet Take 2 tablets by mouth two times a day. albuterol HFA (PROAIR HFA) 90 mcg/actuation inhaler Inhale 2 Puffs as instructed every 4 hours as needed. fluticasone (FLONASE) 50 mcg/actuation nasal spray instill [...] of hands, arms, legs for 1 week.). spironolactone (ALDACTONE) 25 mg tablet Take 1 tablet by mouth every afternoon. Per [facility] traMADol (ULTRAM) 50 mg tablet Take 1 [...] on empty stomach, 1/2 hr before meal. nitroglycerin sublingual (NITROQUICK) 0.4 mg SL tablet [...] mask of choice, HUMIDITY. LIFETIME SUPPLIES. DME: [facility] diclofenac, EC, (VOLTAREN) 75 mg EC tablet take 1 tablet by mouth twice a day furosemide (LASIX) 40 mg tablet Take 1 tablet by mouth two times a day. Per [facility] (Patient not taking: Reported on 09/08/2023) No current facility-administered medications for this visit. ALLERGIES: ALLERGIES Allergen Reactions Iv Contrast [Iodine] Swelling Seasonal Allergies Intolerance COMPLETE REVIEW OF SYSTEMS: Review of Systems Constitutional: Negative for chills, diaphoresis, fever and malaise/fatigue. HENT: Negative for congestion, hearing loss, nosebleeds, sinus pain, sore throat and tinnitus. Eyes: Negative for blurred vision, double vision, pain and redness. Respiratory: Negative for cough, hemoptysis, sputum production, shortness of breath and wheezing. Cardiovascular: Positive for chest pain and palpitations. Negative for orthopnea, leg swelling and PND. Gastrointestinal: Positive for heartburn and vomiting (regurgitation). Negative for abdominal pain,blood in stool, constipation, diarrhea and nausea. Genitourinary: Negative for dysuria, frequency, hematuria and urgency. Musculoskeletal: Positive for back pain and joint pain. Negative for falls, myalgias and neck pain. Skin: Negative for itching and rash. Neurological: Negative for dizziness, speech change, focal weakness, seizures, loss of consciousness, weakness and headaches. Endo/Heme/Allergies: Does not bruise/bleed easily. Psychiatric/Behavioral: Negative for depression, hallucinations, memory loss, substance abuse and suicidal ideas. The patient is not nervous/anxious and does not have insomnia. OBJECTIVE PHYSICAL EXAM: BP 129/77 Pulse 63 Ht 5' 2 (1.58m) Wt 259 lb (117.5kg) BMI 47.36 kg/(m^2). Physical Exam Vitals reviewed. Constitutional: Appearance: Normal appearance. She is obese. HENT: Head: Normocephalic and atraumatic. Nose: Nose normal. Eyes: General: No scleral icterus. Extraocular Movements: Extraocular movements intact. Conjunctiva/sclera: Conjunctivae normal. Pupils: Pupils are equal, round, and reactive to light. Cardiovascular: Rate and Rhythm: Normal rate. Pulmonary: Effort: Pulmonary effort is normal. No respiratory distress. Skin: General: Skin is warm and dry. Coloration: Skin is pale. Skin is not jaundiced. Neurological: Mental Status: She is alert and oriented to person, place, and time. Psychiatric: Behavior: Behavior normal. DATA: Diagnostic tests reviewed for today's visit: EMR reviewed Plan ASSESSMENT AND PLAN Lizzy Gant is a 58 year old female with a PMH as noted above who presents with GERD and paraesophageal hernia 1. Gastroesophageal reflux disease without esophagitis - ICD9: 530.81, ICD10: K21.9 (primary diagnosis) - Discussed lifestyle modifications including losing weight, limiting caffeine, no meals three hours before sleep, and head of bed elevation - Continue treatment with Protonix 40 mg BID - stop Omeprazole 2. Paraesophageal hernia - ICD9: 553.3, ICD10: K44.9 - Will plan to repair at the time of RYGB 3. Class 3 severe obesity with serious comorbidity and body mass index (BMI) of 45.0 to 49.9 in adult, unspecified obesity type (HCC) - ICD9: 278.01, V85.42, ICD10: E66.01, Z68.42 - Will resend the bariatric seminar - she will fill out the paper form 4. Atrial fibrillation, unspecified type (HCC) - ICD9: 427.31, ICD10: I48.91 - Continue current medical management 5. Uncomplicated asthma, unspecified asthma severity, unspecified whether persistent - ICD9: 493.90, ICD10: J45.909 - Continue current medical management 6. Stage 3 chronic kidney disease, unspecified whether stage 3a or 3b CKD (HCC) - ICD9: 585.3, ICD10: N18.30 - Continue current medical management 7. Hypothyroidism, unspecified type - ICD9: 244.9, ICD10: E03.9 - Continue current medical management Medical Decision Making: Problems: Moderate: 2+ stable chronic illnesses Data: Unique test result(s) reviewed: 3+ Discussed management or test w/ external physician/QHCP/source Risk: Moderate: Drug management Medical Decision Making Level: 4 - Moderate SIGNATURE: Mary Jo Herzog MD PATIENT NAME: Lizzy Gant DATE: September 08, 2023 TIME: 10:31 AM PAGER/CONTACT #: [phone] documented in this encounterMer[facility]06-12-[facility]24 Instructions* Patient Instructions* Raffaele Mustafa MD - 08/24/2023 12:27 PM EDT Kidney Disease - Mild disease. Reassuring prognostic factors. We will recheck labs in October. Follow up in 6 months. Sodium intake recommendation: Less 2000mg/day documented in this encounterMercer County [facility]06-12-2024 History of Present illness Narrative* Raffaele Mustafa MD - 08/24/2023 11:40 AM EDT Images from the original note were not included. [facility] SERVICE DATE: 08/24/2023 SERVICE TIME: 1:07 PM CHIEF COMPLAINT: Swelling HPI: Ms. Gant is a 58 year old female with bilateral carpal tunnel, obesity, GERD who presents for chronic kidney disease. Last seen 04/2023. Her Creatinine remains stable in the 1.0-1.3 range since our last visit and she has no significant proteinuria. At our last visit, we discussed trying to stop her PPI, but patient didn't think this would be possible based on her GI symptoms. We also discussed reducing lasix to 1x/day because of low PO intake. She continues to be concerned about swelling. Says if she is off of diuretics she gets short of breath. 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 She has now been placed on Torsemide for her diuretic. Taking 20mg twice a day. She is also being evaluated for bariatric surgery. Chronic Kidney Disease Duration (when): unclear Location (where): kidneys Severity [...] Colon Polyp Subclinical Hypothyroidism Right Renal Atrophy Eczema No Appetite MEDICATIONS: torsemide (DEMADEX) 20 mg tablet take 1 tablet by mouth twice a day (STOP FUROSEMIDE) diclofenac, EC, (VOLTAREN) 75 mg EC tablet take 1 tablet by mouth twice a day OMEPRAZOLE, BULK, MISC 40 mg once daily. levothyroxine (SYNTHROID) 100 mcg tablet Take 1 tablet by mouth once daily. Per [facility]. colestipol (COLESTID) 1 gram tablet Take 2 tablets by mouth two times a day. fluticasone (FLONASE) 50 mcg/actuation nasal spray instill [...] of hands, arms, legs for 1 week.). furosemide (LASIX) 40 mg tablet Take 1 tablet by mouth two times a day. Per [facility] spironolactone (ALDACTONE) 25 mg tablet Take 1 tablet by mouth every afternoon. Per [facility] traMADol (ULTRAM) 50 mg tablet Take 1 [...] on empty stomach, 1/2 hr before meal. nitroglycerin sublingual (NITROQUICK) 0.4 mg SL tablet [...] mask of choice, HUMIDITY. LIFETIME SUPPLIES. DME: [facility] albuterol HFA (PROAIR HFA) 90 mcg/actuation inhaler Inhale 2 Puffs as instructed every 4 hours as needed. ALLERGIES: ALLERGIES Allergen Reactions Iv Contrast [Iodine] Swelling Seasonal Allergies Intolerance REVIEW OF SYSTEMS: Constitutional: No complaints Cardiovascular: swelling, SOB Genitourinary: No complaints PHYSICAL EXAM: Ht 158.8 cm (5' 2.52 ) Wt 116.9 kg (257 lb 11.5 oz) LMP (LMP Unknown) BMI 46.36 kg/m BP - standardized method Pulse 1 BP #1: 123/79 Pulse #1: 64 beats/min 2 BP #2 : 110/75 Pulse #2 : 63 beats/min 3 BP #3 : 108/71 Pulse #3 : 63 beats/min Average Average BP: 114/75 Average Pulse: 63 beats/min Orthostatic vitals Supine Sitting Standing BP cuff location BP cuff size Comments for BP values First BP (right) First BP (left) Constitutional: No acute distress, Responsive, and Overweight Eyes: Conjunctiva clear Ear, Nose, and Throat: Hearing normal and Lips normal Neck:Trachea midline Cardiovascular:Edema present: trace edema on left mireles, no RLE edema. Overall impression that thereis not excessive edema. Regular rate and ryhthm, normal S1 and S2, no murmurs, rubs, or gallops Respiratory: Normal respiratory effort. Lungs clear bilaterally. Abdomen:Soft, non-tender, non-distended. Musculoskeletal: No clubbing or cyanosis of digits. and Normocephalic. Neurologic: Grossly normal, no obvious focal deficits Psychiatric: Alert and oriented x self, place, time, and setting Normal mood/affect DATA: Diagnostic tests reviewed for today's visit: Latest Ref Rng & Units 07/13/2023 01/27/2023 11/25/2022 BMP Glucose 74 - 99 mg/dL 92 76 88 BUN 7 - 21 mg/dL 14 16 16 Creatinine 0.58 - 0.96 mg/dL 1.25 1.07 1.28 Sodium 136 - 144 mmol/L 141 139 140 Potassium 3.7 - 5.1 mmol/L 4.3 4.4 4.9 Chloride 97 - 105 mmol/L 99 103 103 CO2 22 - 30 mmol/L 26 18 26 Anion Gap 9 - 18 mmol/L 16 18 11 Calcium 8.5 - 10.2 mg/dL 10.0 9.9 10.1 EGFR >=60 mL/min/1.73m 50 60 49 Hemoglobin (g/dL) Date Value 07/13/2023 14.4 03/20/2021 13.5 Hematocrit (%) Date Value 07/13/2023 43.6 03/20/2021 41.1 WBC (k/uL) Date Value 07/13/2023 7.61 03/20/2021 5.43 Platelet Count (k/uL) Date Value 07/13/2023 213 03/20/2021 187 Specific [place], Ur Date Value Ref Range Status 07/13/2023 1.012 1.005 - 1.030 Final Glucose, Urine Date Value Ref Range Status 07/13/2023 Negative Negative Final Bilirubin, Urine Date Value Ref Range Status 07/13/2023 Negative Negative Final Ketones, Urine Date Value Ref Range Status 07/13/2023 Negative Negative Final Hemoglobin/Blood,Ur Date Value Ref Range Status 07/13/2023 Negative Negative Final Protein, Urine Date Value Ref Range Status 07/13/2023 Negative Negative Final Urobilinogen, Urine Date Value Ref Range Status 10/16/2015 Normal Normal (<1.1) EU Final Nitrites Date Value Ref Range Status 07/13/2023 Negative Negative Final WBC, Urine Date Value Ref Range Status 07/13/2023 0-5 /HPF 0-5 /HPF Final ASSESSMENT: 58 year old female with bilateral [...] Duplex assessment. No proteinuria, suggests favorable prognosis. Cr most recently is stable. No signs of progression and protein remains negative on UA. She does have some LE positivity and noted the pantoprazole and omeprazole. Patient again reports she needs both of these for symptom control. GERD: Continues on two Chronic PPIs, on pantoprazole and omeprazole. Reports symptoms recur and aredebilitating if she is on either. Will not adjust due to patient preference. Blood Pressure: At goal today. On Torsemide and Spironolactone. Volume Status: Patient has history of volume overload and is on diuretics. She continues to be focused on this. Exam is not overwhelming but patient feels better on diuretics. Ok to continue for now as long as Cr stays stable. Obesity - Says she is looking into bariatric surgery. PLAN: -Recheck Renal Function panel and CBC in October ~3 months from last check. -Torsemide per cardiology. -Revisited PPIs again today, patient wishes to continue both -Follow up in 6 months. Portions of [...] as outlined above,and coordination of care = 37 min SIGNATURE: Raffaele Mustafa MD PATIENT NAME: Lizzy Gant DATE: August 24, 2023 TIME: 1:07 PM OFFICE NUMBER: CC: PRIMARY CARE PHYSICIAN: Sam Null MD [facility] NoteHNO ID: [id number] Author: RAFFAELE MUSTAFA MD Service: ? Author Type: Physician Type: Progress Notes Filed: 08/24/2023 13:12 Note Text: [facility] SERVICE DATE: 08/24/2023 SERVICE TIME: 1:07 PM CHIEF COMPLAINT: Swelling HPI: Ms. Gant is a 58 year old female with bilateral carpal tunnel, obesity, GERD who presents for chronic kidney disease. Last seen 04/2023. Her Creatinine remains stable in the 1.0-1.3 range since our last visit and she has no significant proteinuria. At our last visit, we discussed trying to stop her PPI, but patient didn't think this would be possible based on her GI symptoms. We also discussed reducing lasix to 1x/day because of low PO intake. She continues to be concerned about swelling. Says if she is off of diuretics she gets short of breath. 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 She has now been placed on Torsemide for her diuretic. Taking 20mg twice a day. She is also being evaluated for bariatric surgery. Chronic Kidney Disease Duration (when): unclear Location (where): kidneys Severity [...] Colon Polyp Subclinical Hypothyroidism Right Renal Atrophy Eczema No Appetite MEDICATIONS: torsemide (DEMADEX) 20 mg tablet take 1 tablet by mouth twice a day (STOP FUROSEMIDE) diclofenac, EC, (VOLTAREN) 75 mg EC tablet take 1 tablet by mouth twice a day OMEPRAZOLE, BULK, MISC 40 mg once daily. levothyroxine (SYNTHROID) 100 mcg tablet Take 1 tablet by mouth once daily. Per [facility]. colestipol (COLESTID) 1 gram tablet Take 2 tablets by mouth two times a day. fluticasone (FLONASE) 50 mcg/actuation nasal spray instill [...] of hands, arms, legs for 1 week.). furosemide (LASIX) 40 mg tablet Take 1 tablet by mouth two times a day. Per [facility] spironolactone (ALDACTONE) 25 mg tablet Take 1 tablet by mouth every afternoon. Per [facility] traMADol (ULTRAM) 50 mg tablet Take 1 [...] on empty stomach, 1/2 hr before meal. nitroglycerin sublingual (NITROQUICK) 0.4 mg SL tablet [...] mask of choice, HUMIDITY. LIFETIME SUPPLIES. DME: [facility] albuterol HFA (PROAIR HFA) 90 mcg/actuation inhaler Inhale 2 Puffs as instructed every 4 hours as needed. ALLERGIES: ALLERGIES Allergen Reactions Iv Contrast [Iodine] Swelling Seasonal Allergies Intolerance REVIEW OF SYSTEMS: Constitutional: No complaints Cardiovascular: swelling, SOB Genitourinary: No complaints PHYSICAL EXAM: Ht 158.8 cm (5' 2.52 ) Wt 116.9 kg (257 lb 11.5 oz) LMP (LMP Unknown) BMI 46.36 kg/m? BP - standardized method Pulse 1 BP #1: 123/79 Pulse #1: 64 beats/min 2 BP #2 : 110/75 Pulse #2 : 63 beats/min 3 BP #3 : 108/71 Pulse #3 : 63 beats/min Average Average BP: 114/75 Average Pulse: 63 beats/min Orthostatic vitals Supine Sitting Standing BP cuff location BP cuff size Comments for BP values First BP (right) First BP (left) Constitutional: No acute distress, Responsive, and Overweight Eyes: Conjunctiva clear Ear, Nose, and Throat: Hearing normal and Lips normal Neck:Trachea midline Cardiovascular:Edema present: trace edema (more content not included)... [facility]06-12-2024 Evaluation note* Diagnosis Stage 3a chronic kidney disease (HCC)- Primary Obesity, Class III, BMI 40-49.9 (morbid obesity) (HCC) Morbid obesity BMI 45.0-49.9, adult (HCC) Body Mass Index 45.0-49.9, adult Gastroesophageal reflux disease without esophagitis Esophageal reflux documented in this encounter [facility]06-05-[facility] NotePatient Outreach (INTMMN) STALINLIZZY ([id number]) 1965 F CHT Date Time Provider Department 08/17/23 SAM NULL INTMMN During your visit today, we recorded the following information about you: Allergies As of Date: 08/17/2023 Noted Allergy Reaction IV CONTRAST (IODINE) 04/14/2023 7 - Swelling SEASONAL ALLERGIES 04/08/2021 5 - Intolerance Date Reviewed: 07/21/2023 Reviewed by: Юлия Canales RN - Fully Assessed Visit Diagnosis:Encounter for screening mammogram for breast cancer [Z12.31] Order(s):[facility] S[facility] [[id number]] Order #: [id number] FUTURE Prescriptions as of 08/22/2023 - diclofenac, EC, (VOLTAREN) 75 mg EC tablet take 1 tablet by mouth twice a day - OMEPRAZOLE, BULK, MISC 40 mg once daily. - levothyroxine (SYNTHROID) 100 mcg tablet Take 1 tablet by mouth once daily. Per [facility]. - colestipol (COLESTID) 1 gram tablet Take 2 tablets by mouth two times a day. - albuterol HFA (PROAIR HFA) 90 mcg/actuation inhaler Inhale 2 Puffs as instructed every 4 hours as needed. - fluticasone (FLONASE) 50 mcg/actuation nasal spray instill 2 sprays into each nostril once daily at bedtime - fluticasone (FLOVENT HFA) 220 mcg/actuation inhaler Inhale 1 Puff as instructed two times a day. Shake well before use. Rinse mouth after use. - hydrocortisone 2.5 % cream Apply 1 application to affected area two times a day as needed (Apply sparingly to rash of hands, arms, legs for 1 week.). - furosemide (LASIX) 40 mg tablet Take 1 tablet by mouth two times a day. Per [facility] - spironolactone (ALDACTONE) 25 mg tablet Take 1 tablet by mouth every afternoon. Per [facility] - traMADol (ULTRAM) 50 mg tablet Take 1 tablet by mouth every 6 hours as needed for pain. - olopatadine (PATANOL) 0.1 % ophthalmic solution - EYE ITCH RELIEF 0.025 % (0.035 %) ophthalmic solution instill 1 drop into both eyes twice a day if needed - dicyclomine (BENTYL) 10 mg capsule 10 mg. - pantoprazole DR (PROTONIX) 40 mg tablet Take 1 tablet by mouth twice daily. Take on empty stomach, 1/2 hr before meal. - nitroglycerin sublingual (NITROQUICK) 0.4 mg SL [...] mask of choice, HUMIDITY. LIFETIME SUPPLIES. 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*01/01/2005 [...] Obesity, Class III, BMI 40-49.9 (morbid obesity*07/27/2017 Stage 3a chronic kidney disease (HCC) [N18.31] 04/08/2021 Dermatophytosis of nail [B35.1] 04/08/2021 10/08/2021 Atypical chest pain [R07.89] 04/08/2021 Bile-induced gastritis [K29.60] 04/08/2021 Colon polyp [K63.5] 07/17/2020 Subclinical hypothyroidism [E03.8] 11/29/2022 Right renal atrophy [N26.1] 01/27/2023 Eczema [L30.9] 07/15/2023 No appetite [R63.0] 07/15/2023 Encounter Status:Closed by Captain Wise, PRODUSER on 08/22/23[facility] 08-11-2023 Telephone encounter Note* Telephone Encounter - Jacquelyn Nicolas MA - 08/11/2023 5:[address] Mustafa, Please review and advise on Pt's message below. Thank you! Jacquelyn Nicolas MA [facility]05-30-2024 Miscellaneous Notes* Telephone Encounter - Jacquelyn Nicolas MA - 08/11/2023 5:[address] Mustafa, Please review and advise on Pt's message below. Thank you! Jacquelyn Nicolas MA * Telephone Encounter - Lizzie Wolf - 08/11/2023 3:43 PM EDT Patient called on 08/11/23 to request a return call to discuss her lab results. Patient states orders were placed by Dr. Mustafa. PSS sees results from Pipe in her chart, but no Dr. Mustafa orderresults. There seems to be some confusion about internal and external lab results. Please call patient back at [phone]. * Telephone Encounter - Kera Lovett MA - 07/26/2023 4:[address] Mustafa, See message below and advise. Kera Lovett MA * Telephone Encounter - Alana Mendoza - 07/26/2023 4:24 PM EDT Lizzy is calling Raffaele Mustafa MD today to request No chief complaint on file. Patient has been identified by name and birthdate. Lizzy calling to discuss the labs that Dr Mustafa ordered on July 12. She doesn't understand the results, would like someone to go over them with her.. she would also like to know when the doctor wants her to repeat them? Duration of symptoms: N/A Person calling: self Call patient at: on cell [phone] (home) [phone] (cell) Was an appointment scheduled: No Closing statement: Symptom Call: Thank you for calling [facility], your call is very important. A nurse will call in approximately 2-4 hours during business hours. If this is an emergency, please contact 911. Alana Mendoza documented in [facility] encounter[facility] Telephone encounter Note * Telephone Encounter - Lizzie Wolf - 08/11/2023 3:43 PM EDT Patient called on 08/11/23 to request a return call to discuss her lab results. Patient states orders were placed by Dr. Mustafa. PSS sees results from [facility] in her chart, but no Dr. Mustafa orderresults. There seems to be some confusion about internal and external lab results. Please call patient back at [phone]. [facility]05-14-[facility] Telephone encounter Note* Telephone Encounter - Kera Lovett MA - 07/26/2023 4:[address] Mustafa, See message below and advise. Kera Lovett MA [facility]05-14-2024 Telephone encounter Note* Telephone Encounter - Alana Mendoza - 07/26/2023 4:24 PM EDT Lizzy is calling Raffaele Mustafa MD today to request No chief complaint on file. Patient has been identified by name and birthdate. Lizzy calling to discuss the labs that Dr Mustafa ordered on July 12. She doesn't understand the results, would like someone to go over them with her.. she would also like to know when the doctor wants her to repeat them? Duration of symptoms: N/A Person calling: self Call patient at: on cell [phone] (home) [phone] (cell) Was an appointment scheduled: No Closing statement: Symptom Call: Thank you for calling [facility], your call is very important. A nurse will call in approximately 2-4 hours during business hours. If this is an emergency, please contact 911. Alana Mendoza [facility]05-09-2024 Nurse Note* Юлия Canales RN - 07/21/2023 1:16 PM EDT The patient was brought into the procedure room and a time out was done. After confirmation of potential allergies, a topical analgesic was used to numb the left nares followed by the trans-nasal insertion of a High Resolution Manometry catheter. Pressure bands of the UES and LES were observed on the color contour. The patient was instructed to take a deep breath to verify placement of catheter, diaphragmatic pinch noted on inspiration. The patient was assisted to left lateral position and the catheter stabilized. The patient was encouraged to relax while acclimating to the catheter for approximately 5 minutes. A 30 second baseline pressure was obtained to identify the UES and LES followed by a series of ten wet swallows, using 5mL of room temperature normal saline to assess esophageal motility. At the conclusion of the procedure the catheter was removed. The patient tolerated the procedure well. No heme noted when catheter removed. [facility]05-09-[facility] Nurse Note* Юлия Canales RN - 07/21/2023 1:16 PM EDT The patient was brought into the procedure room and a time out was done. After confirmation of potential allergies, a topical analgesic was used to numb the left nares followed by the trans-nasal insertion of a High Resolution Manometry catheter. Pressure bands of the UES and LES were observed on the color contour. The patient was instructed to take a deep breath to verify placement of catheter, diaphragmatic pinch noted on inspiration. The patient was assisted to left lateral position and the catheter stabilized. The patient was encouraged to relax while acclimating to the catheter for approximately 5 minutes. A 30 second baseline pressure was obtained to identify the UES and LES followed by a series of ten wet swallows, using 5mL of room temperature normal saline to assess esophageal motility. At the conclusion of the procedure the catheter was removed. The patient tolerated the procedure well. No heme noted when catheter removed. documented in this encounter[facility]05-[facility] History of Present illness Narrative* Mackenzie Stewart APRN.CNP - 07/21/2023 1:00 PM EDT H&P completed on 07/15/2023 by Sam Null MD . documented in this encounterMer[facility]05-[facility]24 NoteHNO ID: [id number] Author: MACKENZIE STEWART APRN.CNP Service: ? Author Type: Nurse Practitioner Type: Progress Notes Filed: 07/21/2023 11:44 Note Text: HANDP completed on 07/15/2023 by Sam Null MD .[facility]05-03-2024 NoteHNO ID: [id number] Author: SAM NULL MD Service: ? Author Type: Physician Type: Progress Notes Filed: 07/17/2023 22:43 Note Text: This note was created using [employer]. 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 She was concerned about diabetes due to ongoing fatigue and increased thrist. She also concerns about poor appetite, lack of weight loss. She felt her issues were related to her thyroid, which was being managed by endocrinology. She had also seen GI and it sounded like she had an EGD recently. She was also scheduled for further testing of her GERD with Dr. Herzog in [facility]. Her symptoms were chronic. I had not seen here for a few years, and informed her she was not diabetic, based on her current labs. Her kidney disease was also stable, and not likely to be contributing to her symptoms. She sees endocrinology, gastroenteroogyI, and cardiology at the local hospital. Review of Systems Constitutional: Positive for appetite change and fatigue. Negative for activity change and unexpected weight change. Respiratory: Negative. Cardiovascular: Positive for leg swelling. Negative for chest pain and palpitations. Endocrine: Positive for polydipsia and polyuria. Genitourinary: Positive for frequency. ACTIVE PROBLEM LIST Asthma Edema Veto On Cpap Gerd (Gastroesophageal Reflux Disease) Chronic Midline Low Back Pain Without Sciatica Irritable Bowel Syndrome With Diarrhea Carpal Tunnel Syndrome, Bilateral Obesity, Class Iii, Bmi 40-49.9 (Morbid Obesity) (Hcc) Stage 3a Chronic Kidney Disease (Hcc) Atypical Chest Pain Bile-Induced Gastritis Colon Polyp Subclinical Hypothyroidism Right Renal Atrophy Social History Tobacco Use Smoking status: Former Packs/day: 1.00 Years: 15.00 Additional pack years: 0.00 Total pack years: 15.00 Types: Cigarettes Quit date: 05/30/2009 Years since quittin.1 Smokeless tobacco: Never Tobacco comments: started age 16 Vaping Use Vaping Use: Never used Substance Use Topics Alcohol use: Not Currently Drug use: Never Current Outpatient Medications Medication Sig levothyroxine (SYNTHROID) 100 mcg tablet Take 1 tablet by mouth once daily. Per [facility]. colestipol (COLESTID) 1 gram tablet Take 2 tablets by mouth two times a day. albuterol HFA (PROAIR HFA) 90 mcg/actuation inhaler Inhale 2 Puffs as instructed every 4 hours as needed. fluticasone (FLONASE) 50 mcg/actuation nasal spray instill [...] of hands, arms, legs for 1 week.). furosemide (LASIX) 40 mg tablet Take 1 tablet by mouth two times a day. Per [facility] spironolactone (ALDACTONE) 25 mg tablet Take 1 tablet by mouth every afternoon. Per [facility] traMADol (ULTRAM) 50 mg tablet Take 1 [...] on empty stomach, 1/2 hr before meal. nitroglycerin sublingual (NITROQUICK) 0.4 mg SL tablet [...] mask of choice, HUMIDITY. LIFETIME SUPPLIES. DME: [facility] No current facility-administered medications for this visit. Objective Blood Pressure 122/78 Pulse 64 Respiration 16 Weight 116.6 kg (257 lb) Last Menstrual Period (LMP Unknown) Oxygen Saturation 98% Body Mass Index 45.53 kg/m? Physical Exam Constitutional: General: She is not in acute distress. Appearance: She is obese. She is not ill-appearing. Eyes: Conjunctiva/sclera: Conjunctivae normal. Cardiovascular: Rate and Rhythm: Normal rate. Pulses: Normal pulses. Heart sounds: Normal heart sounds. Pulmonary: Effort: No respiratory distress. Breath sounds: No wheezing or rales. Abdominal: General: There is no distension. Palpations: Abdomen is soft. Tenderness: There is no abdominal tenderness. Musculoskeletal: Right lower le+ Pitting Edema present. Left lower le+ Pitting Edema present. (more content not included)...[facility]05-03-2024 History of Present illness Narrative* Sam Null MD - 07/15/2023 1:59 PM EDT This note was created using [employer]. 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 She was concerned about diabetes due to ongoing fatigue and increased thrist. She also concerns about poor appetite, lack of weight loss.She felt her issues were related to her thyroid, which was being managed by endocrinology. She had also seen GI and it sounded like she had an EGD recently. She was also scheduled for further testing of her GERD with Dr. Herzog in [facility]. Her symptoms were chronic. I had not seen here for a few years, and informed her she was not diabetic, based on her current labs. Her kidney disease was also stable, and not likely to be contributing to her symptoms. She sees endocrinology, gastroenteroogyI, and cardiology at the local hospital. Review of Systems Constitutional: Positive for appetite change and fatigue. Negative for activity change and unexpected weight change. Respiratory: Negative. Cardiovascular: Positive for leg swelling. Negative for chest pain and palpitations. Endocrine: Positive for polydipsia and polyuria. Genitourinary: Positive for frequency. ACTIVE PROBLEM LIST Asthma Edema Veto On Cpap Gerd (Gastroesophageal Reflux Disease) Chronic Midline Low Back Pain Without Sciatica Irritable Bowel Syndrome With Diarrhea Carpal Tunnel Syndrome, Bilateral Obesity, Class Iii, Bmi 40-49.9 (Morbid Obesity) (Hcc) Stage 3a Chronic Kidney Disease (Hcc) Atypical Chest Pain Bile-Induced Gastritis Colon Polyp Subclinical Hypothyroidism Right Renal Atrophy Social History Tobacco Use Smoking status: Former Packs/day: 1.00 Years: 15.00 Additional pack years: 0.00 Total pack years: 15.00 Types: Cigarettes Quit date: 05/30/2009 Years since quittin.1 Smokeless tobacco: Never Tobacco comments: started age 16 Vaping Use Vaping Use: Never used Substance Use Topics Alcohol use: Not Currently Drug use: Never Current Outpatient Medications Medication Sig levothyroxine (SYNTHROID) 100 mcg tablet Take 1 tablet by mouth once daily. Per [facility]. colestipol (COLESTID) 1 gram tablet Take 2 tablets by mouth two times a day. albuterol HFA (PROAIR HFA) 90 mcg/actuation inhaler Inhale 2 Puffs as instructed every 4 hours as needed. fluticasone (FLONASE) 50 mcg/actuation nasal spray instill [...] of hands, arms, legs for 1 week.). furosemide (LASIX) 40 mg tablet Take 1 tablet by mouth two times a day. Per [facility] spironolactone (ALDACTONE) 25 mg tablet Take 1 tablet by mouth every afternoon. Per [facility] traMADol (ULTRAM) 50 mg tablet Take 1 [...] on empty stomach, 1/2 hr before meal. nitroglycerin sublingual (NITROQUICK) 0.4 mg SL tablet [...] mask of choice, HUMIDITY. LIFETIME SUPPLIES. DME: [facility] No current facility-administered medications for this visit. Objective Blood Pressure 122/78 Pulse 64 Respiration 16 Weight 116.6 kg (257 lb) Last Menstrual Period (LMP Unknown) Oxygen Saturation 98% Body Mass Index 45.53 kg/m Physical Exam Constitutional: General: She is not in acute distress. Appearance: She is obese. She is not ill-appearing. Eyes: Conjunctiva/sclera: Conjunctivae normal. Cardiovascular: Rate and Rhythm: Normal rate. Pulses: Normal pulses. Heart sounds: Normal heart sounds. Pulmonary: Effort: No respiratory distress. Breath sounds: No wheezing or rales. Abdominal: General: There is no distension. Palpations: Abdomen is soft. Tenderness: There is no abdominal tenderness. Musculoskeletal: Right lower le+ Pitting Edema present. Left lower le+ Pitting Edema present. Neurological: General: No focal deficit present. Mental Status: She is alert. Latest Ref Rng 07/13/2023 Hemoglobin A1C 4.3 - 5.6 % 5.3 Estimated Average Glucose mg/dL 105 Assessment and Plan 1. Subclinical hypothyroidism - ICD9: 244.8, ICD10: E03.8 (primary diagnosis) - continue current dose of Synthroid per endocrinology. 2. Mild intermittent asthma without complication - ICD9: 493.90, ICD10: J45.20 - Continue current medications - ALBUTEROL SULFATE HFA 90 MCG/ACTUATION AEROSOL INHALER - FLUTICASONE PROPIONATE 220 MCG/ACTUATION HFA AEROSOL INHALER 3. Eczema, unspecified type - ICD9: 692.9, ICD10: L30.9 Controlled. - HYDROCORTISONE 2.5 % TOPICAL CREAM 4. Obesity, Class III, BMI 40-49.9 (morbid obesity) (HCC) - ICD9: 278.01, ICD10: E66.01 Stable - Behavioral intervention 5. No appetite - ICD9: 783.0, ICD10: R63.0 - For further study including Sam Null MD [facility] Telephone encounter Note * Telephone Encounter - Kristen Oconnor LPN - 07/12/2023 3:57 PM EDT Patient advised, appt scheduled. Kristen Oconnor LPN [facility]04-30-2024 Miscellaneous Notes* Telephone Encounter - rKisten Oconnor LPN - 07/12/2023 3:57 PM EDT Patient advised, appt scheduled. Kristen Oconnor LPN * Telephone Encounter - Verito Cash APRN.CNP - 07/12/2023 3:29 PM EDT HgbA1c ordered, she will need an appointment to discuss results Verito Cash APRN.[employer] * Telephone Encounter - Halie Ambriz LPN - 07/11/2023 3:37 PM EDT Patient calling said she is short of breath, fatigued, excessive thirst, edema, dizzy feeling. 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 Patient asking to have tests done to check to see if she is diabetic, she said she used to have very low blood sugar, diabetes is in the family. Her next appt with PCP is mid November, filippo Sellers in March, refusing to schedule appt She said PCP could look at all the labs that were done in the past month. Please advise documented [facility]Mer[facility]04[facility] Telephone encounter Note * Telephone Encounter - Verito Cash APRN.CNP - 07/12/2023 3:29 PM EDT HgbA1c ordered, she will need an appointment to discuss results Verito Cash APRN.ERICK [facility]04-29-2024 Telephone encounter Note* Telephone Encounter - Halie Ambriz LPN - 07/11/2023 3:37 PM EDT Patient calling said she is short of breath, fatigued, excessive thirst, edema, dizzy feeling. 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 Patient asking to have tests done to check to see if she is diabetic, she said she used to have very low blood sugar, diabetes is in the family. Her next appt with PCP is mid November, hadseen Verito in March, refusing to schedule appt She said PCP could look at all the labs that were done in the past month. Please advise [facility]04-[facility] Telephone encounter Note* Telephone Encounter - Cathy Simmons MA - 07/07/2023 12:40 PM EDT Manometry scheduled for 07/21/2023 at 12:00 pm followed by EGD/Kirk at 1:00 pm. Prep/instructions given to patient at checkout yesterday. Cathy Simmons MA [facility]04-25-2024 Miscellaneous Notes* Telephone Encounter - Cathy Simmons MA - 07/07/2023 12:40 PM EDT Manometry scheduled for 07/21/2023 at 12:00 pm followed by KELLY/Rigo at 1:00 pm. Prep/instructions given to patient at checkout yesterday. Cathy Simmons MA documented in this encounterMer[facility]04-24-2024 Telephone encounter Note * Telephone Encounter - Raffaele Mustafa MD - 07/06/2023 5:04 PM EDT Called patient. States she has a new pain in her LLQ since we spoke on Tuesday. She is worried abouther kidneys. I looked at her scanned CT report from March 2023 which showed no kidney findings toexplain this. Discussed that she needs to be able to eat and drink and then assess if the pain is tolerable. If she can't do either of those, then possible ED trip but difficult to guide her further s leighton I cannot examine her. SIGNATURE: Raffaele Mustafa MD PATIENT NAME: Lizzy Gant DATE: July 06, 2023 TIME: 5:06 PM PAGER: [phone] [facility]04-24-2024 Miscellaneous Notes* Telephone Encounter - Raffaele Mustafa MD - 07/06/2023 5:04 PM EDT Called patient. States she has a new pain in her LLQ since we spoke on Tuesday. She is worried abouther kidneys. I looked at her scanned CT report from March 2023 which showed no kidney findings toexplain this. Discussed that she needs to be able to eat and drink and then assess if the pain is tolerable. If she can't do either of those, then possible ED trip but difficult to guide her further s leighton I cannot examine her. SIGNATURE: Raffaele Mustafa MD PATIENT NAME: Lizzy Gant DATE: July 06, 2023 TIME: 5:06 PM PAGER: [phone] * Telephone Encounter - Ebony Monroy - 07/06/2023 3:53 PM EDT Name of Caller: Lizzy Relationship to patient: patient Last visit in this department: Visit date not found Reason for Call: pt is experiencing pain in lower side. Thinks it has to do with kidneys. She has been swelling in her body for over a week now. Please advise Callback number: [phone] documented in this encounterMer[facility]04-[facility]-2024 Telephone encounter Note * Telephone Encounter - Raffaele Mustafa MD - 07/06/2023 4:58 PM EDT Late Entry. Had long phone call with Ms. Gant regarding her symptoms. Call was on 07/04/23 in [facility]. Cannot explain symptoms as being related to the kidneys. Reviewed her recent labs with her. SIGNATURE: Raffaele Mustafa MD PATIENT NAME: Lizzy Gant DATE: July 06, 2023 TIME: 4:59 PM PAGER: [phone] [facility]04-24-[facility] Miscellaneous Notes* Telephone Encounter - Raffaele Mustafa MD - 07/06/2023 4:58 PM EDT Late Entry. Had long phone call with Ms. Gant regarding her symptoms. Call was on 07/04/23 in [facility]. Cannot explain symptoms as being related to the kidneys. Reviewed her recent labs with her. SIGNATURE: Raffaele Mustafa MD PATIENT NAME: Lizzy Gant DATE: July 06, 2023 TIME: 4:59 PM PAGER: [phone] * Telephone Encounter - Kera Lovett MA - 07/04/2023 8:[address] Mustafa, Please see message below and advise. Kera Lovett MA * Telephone Encounter - Kari Murdock - 07/01/2023 4:59 PM EDT Lizzy is calling Raffaele Mustafa MD today to request a call regarding her lab order results from 06/27/23. Still barley able to eat. Only eating once a day and making sure she gets milk and clementines to eat. Has no appetite. Patient has been identified by name and birthdate. Duration of symptoms: N/A Person calling: self Call patient at: on cell [phone] (home) [phone] (cell) Was an appointment scheduled: No Closing statement: Symptom Call: Thank you for [facility], your call is very important. A nurse will call in approximately 2-4 hours during business hours. If this is an emergency, please contact 911. Kari Murdock documented in this encounterMer[facility]04-24-2024 Telephone encounter Note * Telephone Encounter - Ebony Monroy - 07/06/2023 3:53 PM EDT Name of Caller: Lizzy Relationship to patient: patient Last visit in this department: Visit date not found Reason for Call: pt is experiencing pain in lower side. Thinks it has to do with kidneys. She has been swelling in her body for over a week now. Please advise Callback number: [phone] [facility]04-24-[facility]24 NoteHNO ID: [id number] Author: PARKER CINTRON RN Service: ? Author Type: Nurse Clinician Type: Progress Notes Filed: 07/06/2023 14:19 Note Text: Patient given written information about esophageal manometry and the prep instructions. I verbally discussed and reviewed the information with the patient. All of patient's questions were answered. Patient given written information about EGD and Kirk pH probe and the prep instructions. Verbally discussed and reviewed the information with the patient. All of patient's questions were answered. Parker Cintron [facility]04-24-2024 History of Present illness Narrative* Parker Cintron RN - 07/06/2023 2:19 PM EDT Patient given written information about esophageal manometry and the prep instructions. I verbally discussed and reviewed the information with the patient. All of patient's questions were answered. Patient given written information about EGD and Kirk pH probe and the prep instructions. Verbally discussed and reviewed the information with the patient. All of patient's questions were answered. Parker Cintron RN * Mary Jo Herzog MD - 07/06/2023 1:15 PM EDT SURGICAL SERVICES HISTORY AND PHYSICAL EXAMINATION SERVICE DATE: 07/06/2023 SERVICE TIME: 1:15 PM PRIMARY CARE PHYSICIAN: Sam Null MD SUBJECTIVE CHIEF COMPLAINT: heartburn HISTORY OF PRESENT ILLNESS: Ms. Gant is a 58 year old female with a PMH of asthma (inhalers; Flonase), atrial fibrillation (Coreg, ASA), atypical chest pain, bile gastritis, chronic back pain/arthritis, CKD stage 3, obesity (BMI 45.92), hypothyroidism (synthroid), history of tobacco use, IBS, hiatal hernia and GERD who presents for surgical consultation. The patient reports a long history of reflux symptoms - since she was a child. She has taken medication for reflux as long as she can recall. At the age of 16 she began to take prescription medications. Since 1987 she has worked on maintaining weight. Her BMI is 45.92 today and her weight is 259 pounds. The lowest weight she can recall was 200 pounds. She endorses symptoms of belching, burping, sour taste in her mouth, regurgitation of food and acid. Symptoms occur during the day and are nocturnal as well. She endorses intermittent difficulty swallowing - this occurs several times per week. She takes Protonix 40 mg BID and Omeprazole 40 mg once daily. She states that if she does not take these medications she experiences severe GERD symptoms. Workup: - EGD (Cebul; 5/6/21): medium-sized hiatal hernia; gastritis of the antrum - UGI (03/22/23): normal GEJ without hernia - GES (12/30/22): normal gastric emptying time - CT abd/pelvis (04/07/23): no acute abnormality Social: former smoker - quit in 2009 without recidivism; denies use of etoh or illicit drugs; on disability due to joint pain and arthritis. PSHx: Lap CCx, left and right heart cath PAST MEDICAL HISTORY: PAST MEDICAL HISTORY Diagnosis Date Asthma 06/13/2008 Atypical chest pain 01/2019 heart cath normal Bile-induced gastritis 04/08/2021 Calcium deposits in tendon and bursa right knee Chronic cholecystitis 07/22/2020 Chronic midline low back pain without sciatica 07/31/2015 Colon polyp 07/17/2020 Dermatophytosis of the body Edema 06/13/2008 GERD (gastroesophageal reflux disease) 07/29/2010 Hiatal hernia 07/17/2020 medium sized seen on EGD Infectious mononucleosis Irregular menstrual cycle Obesity, Class III, BMI 40-49.9 (morbid obesity) ([facility] 07/27/2017 Tobacco use disorder Unspecified hearing loss left ear - wears hearing aid Unspecified hypothyroidism PAST SURGICAL HISTORY: PAST SURGICAL HISTORY Procedure Laterality Date COLONOSCOPY SCREENING 07/17/2020 EGD WITH BIOPSY(S) 07/17/2020 medium sized hiatal hernia; Dr. Ava LIANG SURG CHOLECYSTECTOMY W/CHOLANGIOGRAPHY 07/22/2020 [facility] LEFT [...] Types: Cigarettes Quit date: 05/30/2009 Years since quittin.1 Smokeless tobacco: Never Tobacco comments: started age 16 Vaping Use Vaping Use: Never used Substance Use Topics Alcohol use: Not Currently Drug use: Never MEDICATIONS: Current Outpatient Medications Medication Sig levothyroxine (SYNTHROID) 112 mcg tablet Take 1 tablet by mouth once daily. Per endocrinology (Dr. rGant Morgan) furosemide (LASIX) 40 mg tablet Take 1 tablet by mouth two times a day. Per [facility] spironolactone (ALDACTONE) 25 mg tablet Take 1 tablet by mouth every afternoon. Per [facility] albuterol HFA (PROAIR HFA) 90 [...] sprays into each nostril once daily atbedtime traMADol (ULTRAM) 50 mg tablet Take 1 [...] mask of choice, HUMIDITY. LIFETIME SUPPLIES. DME: [facility] No current facility-administered medications for this visit. ALLERGIES: ALLERGIES Allergen Reactions Iv Contrast [Iodine] Swelling Seasonal Allergies Intolerance COMPLETE REVIEW OF SYSTEMS: Review of Systems Constitutional: Negative for chills, diaphoresis, fever and malaise/fatigue. HENT: Negative for congestion, hearing loss, nosebleeds, sinus pain, sore throat and tinnitus. Eyes: Negative for blurred vision, double vision, pain and redness. Respiratory: Negative for cough, hemoptysis, sputum production, shortness of breath and wheezing. Cardiovascular: Positive for chest pain and palpitations. Negative for orthopnea, leg swelling and PND. Gastrointestinal: Positive for heartburn and vomiting (regurgitation). Negative for abdominal pain,blood in stool, constipation, diarrhea and nausea. Genitourinary: Negative for dysuria, frequency, hematuria and urgency. Musculoskeletal: Positive for back pain and joint pain. Negative for falls, myalgias and neck pain. Skin: Negative for itching and rash. Neurological: Negative for dizziness, speech change, focal weakness, seizures, loss of consciousness, weakness and headaches. Endo/Heme/Allergies: Does not bruise/bleed easily. Psychiatric/Behavioral: Negative for depression, hallucinations, memory loss, substance abuse and suicidal ideas. The patient is not nervous/anxious and does not have insomnia. OBJECTIVE PHYSICAL EXAM: BP 122/82 Pulse 63 Ht 5' 3 (1.60m) Wt 259 lb 3.2 oz (117.6kg) BMI 45.93 kg/(m^2). Physical Exam Vitals reviewed. Constitutional: Appearance: Normal appearance. She is obese. HENT: Head: Normocephalic and atraumatic. Nose: Nose normal. Eyes: General: No scleral icterus. Extraocular Movements: Extraocular movements intact. Conjunctiva/sclera: Conjunctivae normal. Pupils: Pupils are equal, round, and reactive to light. Cardiovascular: Rate and Rhythm: Normal rate. Pulmonary: Effort: Pulmonary effort is normal. No respiratory distress. Skin: General: Skin is warm and dry. Coloration: Skin is not jaundiced or pale. Neurological: General: No focal deficit present. Mental Status: She is alert and oriented to person, place, and time. Psychiatric: Mood and Affect: Mood normal. Behavior: Behavior normal. DATA: Diagnostic tests reviewed for today's visit: EMR reviewed Plan ASSESSMENT AND PLAN Lizzy Gant is a 58 year old female with a PMH as noted above who presents with symptoms of GERD. ASSESSMENT/PLAN: 1. Gastroesophageal reflux disease, unspecified whether esophagitis present - ICD9: 530.81, ICD10: K21.9 (primary diagnosis) - We discussed her symptoms and my recommendations going forward for further testing. Will obtain EGD with kirk and manometry - Discussed that she would need to lose weight to a BMI of 30 or less to qualify for a primary PEH repair or undergo combined bariatric surgery and hernia repair. Will send bariatric seminar. - Discussed lifestyle modifications including losing weight, limiting caffeine, no meals three hours before sleep, and head of bed elevation - Continue treatment with Protonix and omeprazole BID and QD - Setup for EGD with KIRK - EGD - THERAPEUTIC, EUS, OR TUBE INTERVENTIONS - Stop ASA 10 days prior to EGD/kirk and mano 2. Class 3 severe obesity with serious comorbidity and body mass index (BMI) of 45.0 to 49.9 in adult, unspecified obesity type (HCC) - ICD9: 278.01, V85.42, ICD10: E66.01, Z68.42 - Discussed the importance of weight loss - Send bariatric seminar 3. Paraesophageal hernia - ICD9: 553.3, ICD10: K44.9 - Noted 4. Stage 3 chronic kidney disease, unspecified whether stage 3a or 3b CKD (HCC) - ICD9: 585.3, ICD10: N18.30 - Continue current medical management 5. Hypothyroidism, unspecified type - ICD9: 244.9, ICD10: E03.9 - Continue current medical management 6. Esophageal dysphagia - ICD9: 787.29, ICD10: R13.19 - MANOMETRY ESOPHAGEAL Medical Decision Making: Problems: Moderate: New problem with uncertain prognosis Data: Unique test result(s) reviewed: 3+ Unique test(s) ordered: 3+ Discussed management or test w/ external physician/QHCP/source Risk: Moderate: Drug management and Moderate risk from testing/treatment Medical Decision Making Level: 4 - Moderate SIGNATURE: Mary Jo Herzog MD PATIENT NAME: Lizzy Gant DATE: July 06, 2023 TIME: 1:15 PM PAGER/CONTACT #: [phone] documented in this encounterMer[facility]04-[facility] Telephone encounter Note * Telephone Encounter - Cassie Suh RN - 07/06/2023 1:48 PM EDT Bariatric Seminar sent. Cassie Suh RN [facility]04-24-2024 Miscellaneous Notes* Telephone Encounter - Cassie Suh RN - 07/06/2023 1:48 PM EDT Bariatric Seminar sent. Cassie Suh RN documented in this encounterMercer [facility]04-24-2024 Instructions* Patient Instructions* Mary Jo Herzog MD - 07/06/2023 1:41 PM EDT Stop aspirin 10 days before upper endoscopy Stop Protonix and omeprazole 5 days before upper endoscopy documented in this encounterMercer [facility]04-24-2024 NoteHNO ID: [id number] Author: MARY JO HERZOG MD Service: ? Author Type: Physician Type: Progress Notes Filed: 07/06/2023 13:44 Note Text: SURGICAL SERVICES HISTORY AND PHYSICAL EXAMINATION SERVICE DATE: 07/06/2023 SERVICE TIME: 1:15 PM PRIMARY CARE PHYSICIAN: Sam Null MD SUBJECTIVE CHIEF COMPLAINT: heartburn HISTORY OF PRESENT ILLNESS: Ms. Gant is a 58 year old female with a PMH of asthma (inhalers; Flonase), atrial fibrillation (Coreg, ASA), atypical chest pain, bile gastritis, chronic back pain/arthritis, CKD stage 3, obesity (BMI 45.92), hypothyroidism (synthroid), history of tobacco use, IBS, hiatal hernia and GERD who presents for surgical consultation. The patient reports a long history of reflux symptoms - since she was a child. She has taken medication for reflux as long as she can recall. At the age of 16 she began to take prescription medications. Since 1987 she has worked on maintaining weight. Her BMI is 45.92 today and her weight is 259 pounds. The lowest weight she can recall was 200 pounds. She endorses symptoms of belching, burping, sour taste in her mouth, regurgitation of food and acid. Symptoms occur during the day and are nocturnal as well. She endorses intermittent difficulty swallowing - this occurs several times per week. She takes Protonix 40 mg BID and Omeprazole 40 mg once daily. She states that if she does not take these medications she experiences severe GERD symptoms. Workup: - EGD (Ava; 07/17/20): medium-sized hiatal hernia; gastritis of the antrum - UGI (03/22/23): normal GEJ without hernia - GES (12/30/22): normal gastric emptying time - CT abd/pelvis (04/07/23): no acute abnormality Social: former smoker - quit in 2009 without recidivism; denies use of etoh or illicit drugs; on disability due to joint pain and arthritis. PSHx: Lap CCx, left and right heart cath PAST MEDICAL HISTORY: PAST MEDICAL HISTORY Diagnosis Date Asthma 06/13/2008 Atypical chest pain 01/2019 heart cath normal Bile-induced gastritis 04/08/2021 Calcium deposits in tendon and bursa right knee Chronic cholecystitis 07/22/2020 Chronic midline low back pain without sciatica 07/31/2015 Colon polyp 07/17/2020 Dermatophytosis of the body Edema 06/13/2008 GERD (gastroesophageal reflux disease) 07/29/2010 Hiatal hernia 07/17/2020 medium sized seen on EGD Infectious mononucleosis Irregular menstrual cycle Obesity, Class III, BMI 40-49.9 (morbid obesity) ([facility] 07/27/2017 Tobacco use disorder Unspecified hearing loss left ear - wears hearing aid Unspecified hypothyroidism PAST SURGICAL HISTORY: PAST SURGICAL HISTORY Procedure Laterality Date COLONOSCOPY SCREENING 07/17/2020 EGD WITH BIOPSY(S) 07/17/2020 medium sized hiatal hernia; Dr. Ava LIANG SURG CHOLECYSTECTOMY W/CHOLANGIOGRAPHY 07/22/2020 [facility] LEFT HEART CATH,PERCUTANEOUS 01/23/2019 L AND [...] Types: Cigarettes Quit date: 05/30/2009 Years since quittin.1 Smokeless tobacco: Never Tobacco comments: started age 16 Vaping Use Vaping Use: Never used Substance Use Topics Alcohol use: Not Currently Drug use: Never MEDICATIONS: Current Outpatient Medications Medication Sig levothyroxine (SYNTHROID) 112 mcg tablet Take 1 tablet by mouth once daily. Per endocrinology (Dr. Grant Morgan) furosemide (LASIX) 40 mg tablet Take 1 tablet by mouth two times a day. Per [facility] spironolactone (ALDACTONE) 25 mg tablet Take 1 tablet by mouth every afternoon. Per [facility] albuterol HFA (PROAIR HFA) 90 [...] before meal. omeprazole (PRILOSEC) 40 mg capsule Ta (more content not included)...[facility]04-22-2024 Telephone encounter Note* Telephone Encounter - Kera Lovett MA - 07/04/2023 8:[address] Mustafa, Please see message below and advise. Kera Lovett MA [facility]04-19-2024 Telephone encounter Note* Telephone Encounter - Kari Murdock - 07/01/2023 4:59 PM EDT Lizzy is calling Raffaele Mustafa MD today to request a call regarding her lab order results from 06/27/23. Still barley able to eat. Only eating once a day and making sure she gets milk and clementines to eat. Has no appetite. Patient has been identified by name and birthdate. Duration of symptoms: N/A Person calling: self Call patient at: on cell [phone] (home) [phone] (cell) Was an appointment scheduled: No Closing statement: Symptom Call: Thank you for calling [facility], your call is very important. A nurse will call in approximately 2-4 hours during business hours. If this is an emergency, please contact 911. Kari Murdock [facility]02-28-2024 Miscellaneous Notes* Addendum Note - Raffaele Mustafa MD - 05/11/2023 6:42 PM ESTAddended by: RAFFAELE MUSTAFA on: 05/11/2023 06:42 PM Modules accepted: Orders * Telephone Encounter - Raffaele Mustafa MD - 05/11/2023 6:34 PM EST Called patient. Reviewed lab results. Minor fluctuations in Cr, not enough to say there is significant disease progression. Labs in 1 month. SIGNATURE: Raffaele Mustafa MD PATIENT NAME: Lizzy Gant DATE: May 11, 2023 TIME: 6:40 PM PAGER: [phone] * Telephone Encounter - Kera Lovett MA - 05/11/2023 1:34 PM EST Dr. Merchant, Please see message below. Have your reviewed labs? Kera Lovett MA * Telephone Encounter - Yajaira Grace - 05/11/2023 1:28 PM EST Lizzy is calling Raffaele Mustafa MD today to request Patient Question-Patient called in with concern regarding lab results. Patient had labs drawn on 04-28-23 at [facility] and was told that lab results would be sent directly to provider. Patient wants to know if lab results have been received. The phone number for [facility] is [phone]. Patient has been identified by name and birthdate. Duration of symptoms: N/A Person calling: self Call patient at: at home [phone] (home) [phone] (cell) Was an appointment scheduled: No Closing statement: Symptom Call: Thank you for calling [facility], your call is very important. A nurse will call in approximately 2-4 hours during business hours. If this is an emergency, please contact 911. Yajaira Grace documented in this encounterMercer County Community Hospital02-01-2024 Instructions* Patient Instructions* Raffaele Mustafa MD - 04/14/2023 2:08 PM EST Only mild kidney impairment. My biggest concern is that you are on diuretics but also not eating or drinking much. You may try taking Lasix once a day and watch if you gain weight. If you start to swell or get SOB,then resume the twice a day dosing of lasix. Labs on May 12. documented in this encounterMercer County Community Hospital02-01-2024 History of Present illness Narrative* Raffaele Mustafa MD - 04/14/2023 2:00 PM EST [facility] NEPHROLOG[facility] & [facility]YP[facility]ION [facility] SERVICE DATE: 04/14/2023 [...] Obesity, Class Iii, Bmi 40-49.9 (Morbid Obesity) ([facility]) Stage 3a Chronic Kidney Disease (Hcc) Atypical [...] sprays into each nostril once daily atbedtime traMADol (ULTRAM) 50 mg tablet Take 1 [...] mask of choice, HUMIDITY. LIFETIME SUPPLIES. DME: [facility] furosemide (LASIX) 40 mg tablet Take 1 tablet by mouth two times a day. Per [facility] (Patient not taking: Reported on [...] results for input(s): MG in the last 87829 hours. Recent Labs 01/27/23 1427 11/17/22 1646 04/05/17 1430 ALB 4.1 4.4 4.3 Specific [place], Ur Date Value Ref Range Status 01/27/2023 [...] on pantoprazole and omeprazole. Reports symptoms recur andare debilitating if she is on either. Bilateral [...] as outlined above,and coordination of care = 55 min SIGNATURE: Raffaele Mustafa MD PATIENT NAME: Lizzy Gant DATE: April 14, 2023 TIME: 1:38 PM OFFICE NUMBER: CC: PRIMARY CARE PHYSICIAN: Sam Null MD documented in this encounterMercer County Community Hospital02-01-2024 NoteHNO ID: [id number] Author: RAFFAELE MUSTAFA MD Service: ? Author Type: Physician Type: Progress Notes Filed: 04/14/2023 15:05 Note Text: [facility] SERVICE DATE: 04/14/2023 [...] mask of choice, HUMIDITY. LIFETIME SUPPLIES. DME: [facility] furosemide (LASIX) 40 mg tablet Take 1 tablet by mouth two times a day. Per [facility] (Patient not taking: Reported on [...] Overweight Eyes: Conjunctiva emilia (more content not included)...[facility] 03-21-2023 NoteHNO ID: [id number] Author: VERITO CASH APRN.[employer] P[employer]ER Service: ? Author Type: Nurse Practitioner Type: Progress Notes Filed: 03/21/2023 15:50 Note Text: CC: Patient presents with: Follow Up HPI Lizzy Gant is a 58 year old female who presents today for above. Patient reports ongoing fatigue and SOB. She is seeing multiple specialists for chronic medical conditions: CKD- stage 3a. Recently referred to nephrology. Ultrasound showed right renal atrophy. Creatinine stable. Swznecdckixeya-qfnfoxhtcgl-qopjdii by endocrinology Dr. Grant Morgan now. TSH [...] to always being full of fluid. 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 LIFETIME SUPPLIES. DME: [facility] albuterol HFA (PROAIR HFA) 90 mcg/actuation inhaler [...] patient: HPV Testing N (more content not included)...[facility]12-15-2023 Miscellaneous Notes* Telephone Encounter - Raffaele Mustafa MD - 02/25/2023 2:29 PM EST I called patient and clarified her questions that she had sent through [employer]. Will repeat labs inFebruary. documented in this encounterMercer County Community Hospital12-15-2023 Miscellaneous Notes* Telephone Encounter - Raffaele Mustafa MD - 02/25/2023 11:18 AM EST Attempted to call the patient to clarify her questions. No answer. Left brief VM. documented in this encounterMercer County Community Hospital12-15-2023 Evaluation note* Diagnosis Stage 3a chronic kidney disease (HCC)- Primary documented in this encounter [facility]12-11-2023 NoteHNO ID: [id number] Author: Arcelia Redman RT(R) Service: ? Author Type: Internet Systems Administrator Type: Progress Notes Filed: 02/21/2023 4:21 PM Note Text: Radiology Service Progress Note PATIENT NAME: Lizzy Gant DATE OF SERVICE: February 21, 2023 [...] BY: RT Makenna(R) February 21, 2023 4:09 [facility]12-11-2023 NoteHNO ID: [id number] Author: JANNET SALTER RN Service: ? Author Type: Registered Nurse Type: Progress Notes Filed: 03/20/2023 16:14 Note Text: PT ASSESSMENT - CASTING ROOM Lizzy presents for Application of brace. Applied Drytex Econ, Hinged Knee, Wrap XXL to Right knee Patient has been instructed in Care and proper application of brace. Patient signed DonTrupti paperwork electronically. Jannet Salter RNKnox Community Hospital12-11-2023 History of Present illness Narrative* Jannet Salter RN - 02/21/2023 4:02 PM EST PT ASSESSMENT - CASTING ROOM Lizzy presents for Application of brace. Applied Drytex Econ, Hinged Knee, Wrap XXL to Right knee Patient has been instructed in Care and proper application of brace. Patient signed [employer]Joy paperwork electronically. Jannet Salter RN * Frank Hyatt MD - 02/21/2023 3:04 PM EST Frank yHatt MD Department of Orthopaedics Orthopaedics [address] [place] [address] Dept: [phone] Dept February 21, 2023 CHIEF COMPLAINT: Established [...] just going to take some time. Ms. Lizzy Gant was advised as to contrast therapies and/or to take analgesics/anti-inflammatories as needed and all contraindications were reviewed. OBJECTIVE: Ms. Lizzy Gant is a pleasant 58 year old [...] Imaging: IMPRESSION: No acute pathology. Bony demineralization. [employer]: [employer] Transcribe Date/Time: Feb 24 2023 9:11A [...] EGD 07/17/2020 LAPS SURG CHOLECYSTECTOMY W/CHOLANGIOGRAPHY 07/22/2020 [facility] LEFT HEART CATH,PERCUTANEOUS 01/23/2019 L & [...] mask of choice, HUMIDITY. LIFETIME SUPPLIES. DME: [facility] No current facility-administered medications for this visit. Allergies: Seasonal Allergies ROS: General (negative for fatigue, malaise, weight loss/gain) HEENT (negative for headache, earache, recent vision changes, sinus pain, sore throat) Respiratory (no recent shortness of breath, hemoptysis) CV (negative for chest tightness, palpitations) Musculoskeletal (see HPI) Psych (no depression, anxiety) Frank Hyatt MD documented in this encounterMercer County Community Hospital12-11-2023 NoteHNO ID: [id number] Author: FRANK HYATT MD Service: ? Author Type: Physician Type: Progress Notes Filed: 03/20/2023 16:14 Note Text: Frank Hyatt MD Department of Orthopaedics Orthopaedics [address] [facility] [address] Dept: [phone] Dept February 21, 2023 CHIEF COMPLAINT: Established [...] is just going to take some time. . Lizzy Gant was advised as to contrast therapies and/or to take analgesics/anti-inflammatories as needed and all contraindications were reviewed. OBJECTIVE: . Lizzy Gant is a pleasant 58 year old [...] Imaging: IMPRESSION: No acute pathology. Bony demineralization. [employer]: [employer] Transcribe Date/Time: Feb 24 2023 9:11A [...] mask of choice, HUMIDITY (more content not included)...[place] [address]-11-2023 NoteHNO ID: [id number] Author: Arcelia Redman RT(R) Service: ? Author Type: Internet Systems Administrator Type: Progress Notes Filed: 02/21/2023 2:21 PM Note Text: Radiology Service Progress Note PATIENT NAME: Lizzy Gant DATE OF SERVICE: February 21, 2023 [...] BY: RT Makenna(R) February 21, 2023 1:57 [facility] Instructions* Patient Instructions* Raffaele Mustafa MD - [...] documented in this encounterMercer County Community Hospital11-16-2023 History of Present illness Narrative* Raffaele Mustafa MD - 01/27/2023 10:40 AM EST [facility]OLOG[facility] SERVICE DATE: 01/27/2023 SERVICE TIME: 1:46 PM REASON FOR CONSULT: I am asked to see this patient in consultation for my opinion regarding ChronicKidney Disease. My recommendations will be communicated by way of shared medical record, fax, or mail. REQUESTING PHYSICIAN: Verito Broderick APRN.[facility] PRIMARY CARE PHYSICIAN: Sam Null MD CHIEF COMPLAINT: Swelling HPI: Ms. Gant [...] Class III, BMI 40-49.9 (morbid obesity) ([facility]) 07/27/2017 Tobacco use disorder Unspecified hearing loss left ear - wears hearing aid Unspecified hypothyroidism PAST SURGICAL HISTORY: PAST SURGICAL HISTORY Procedure Laterality Date COLONOSCOPY SCREENING 07/17/2020 EGD 07/17/2020 LAPS SURG CHOLECYSTECTOMY W/CHOLANGIOGRAPHY 07/22/2020 [facility] LEFT HEART CATH,PERCUTANEOUS 01/23/2019 L & [...] mask of choice, HUMIDITY. LIFETIME SUPPLIES. DME: [facility] spironolactone (ALDACTONE) 25 mg tablet Take [...] Date Value 11/17/2022 187 03/20/2021 187 Specific [place], Ur Date Value Ref Range Status 10/16/2015 [...] min SIGNATURE: Raffaele Mustafa MD PATIENT NAME: Lizzy Gant DATE: January 27, 2023 TIME: 1:46 PM CC: REFERRING PROVIDER: Verito Broderick APRN.[employer] PRIMARY CARE PHYSICIAN: Sam Null MD documented in this encounterMercer County Community Hospital11-16-2023 NoteHNO ID: [id number] Author: Raffaele Mustafa MD Service: ? Author Type: Physician Type: Progress Notes Filed: 01/27/2023 2:09 PM Note Text: [facility] SERVICE DATE: 01/27/2023 SERVICE TIME: 1:46 PM REASON FOR CONSULT: I am asked to see this patient in consultation for my opinion regarding Chronic Kidney Disease. My recommendations will be communicated by way of shared medical record, fax, or mail. REQUESTING PHYSICIAN: Verito Broderick APRN.[facility] PRIMARY CARE PHYSICIAN: Sam Null MD CHIEF COMPLAINT: Swelling HPI: Ms. Gant [...] Class III, BMI 40-49.9 (morbid obesity) ([facility]) 07/27/2017 Tobacco use disorder [...] mouth once daily. carve (more content not included)...[facility]11-16-2023 Evaluation note* Diagnosis Stage 3a [...] Referred By Contac t Referred To Contact [facility] Diagnoses Stage 3a chronic kidney disease (HCC) Procedures US RENAL ARTERY ALYCIA VAS LAB DUP-SCAN ARTL MARISSA ABDL/PEL/SCROT&/RPR ORGN COM Raffaele Mustafa MD [address] [place] [id number] [facility] [place] [id number] Referral ID Status Reason Start Date Expiration Date Visits Requested Visits Authorized [id number] Authorized Auto-Generat ed Referral 3 01/27/2024 1 [...] documented in this encounterMercer County Community Hospital09-22-2023 History of Present illness Narrative* Courtney Stallworth RT(Mulu) - 12/03/2022 1:45 PM EDT Radiology Service Progress Note PATIENT NAME: Lizzy Gant DATE OF SERVICE: December 03, 2022 [...] documented in this encounterMercer County Community Hospital09-06-2023 Instructions* Patient Instructions* Verito Broderick APRN.CNP - 11/17/2022 5:27 PM EDT You are due for PAP/HPV and mammogram, please call [phone] to schedule documented in this encounterMercer County Community Hospital09-06-2023 History of Present illness Narrative* Verito Broderick APRN.CNP - 11/17/2022 5:10 PM EDT CC: Patient presents with: Physical HPI Lizzy Gant is a 57 year old female [...] Class III, BMI 40-49.9 (morbid obesity) ([facility]) 07/27/2017 Tobacco use disorder [...] mask of choice, HUMIDITY. LIFETIME SUPPLIES. DME: [facility] FAMILY HISTORY Problem Relation Age of [...] at this time. - Patient was counseled [id number] by myself (the billing provider) for the [...] RN documented in this encounterMercer County Community Hospital03-24-2023 Miscellaneous Notes* Telephone Encounter - Grant Newsome Ma - 06/04/2022 4:10 PM EDT New order faxed to [facility]. * Telephone Encounter - Briana Ang RN - 06/02/2022 4:49 PM EDT Althea with [facility] calls to request a more specific diagnosis for rollator. She reports they need to know the cause of the chronic knee pain. Tried obesity and impaired mobility which neither will cover it. Althea requesting call back at [phone] and follow the prompts select option 1 then option 0 to connect to the pharmacy. If Althea isn't available she said to leave a message with pharmacy intake technician andthey will get the message to [...] walker was supposed to be faxed to [facility] and pt is being told by DM that they have not received the order. Pt is asking for the order to be re-faxed. Krista Tripathi LPN documented in this encounterMercer County Community Hospital01-30-2023 History of Present illness Narrative* Verito Older, 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GREEN CHAIN PULLER - 04/12/2022 2:46 PM EST This Team Access Model visit is a virtual encounter. It required patient- provider interaction for the medical decision making as documented below. Patient agrees to the visit: Yes Patient Location: [place] CC: Patient presents with: Follow Up HPI Lizzy Gant is a 57 year old female who is contacted today for a virtual visit. This is an established patient of Dr. Sam Null MD. Patient had to change appointment to [...] enough information. Needs to repeat. Managed by jigmaker Dr. Lilly. Taking Protonix daily. If she doesn't take has severe reflux and pain. She is following up with GI for this. Most of her medications are prescribed by non-[facility] specialists including [facility]. REVIEW OF SYSTEMS See HPI PAST [...] Class III, BMI 40-49.9 (morbid obesity) ([facility]) 07/27/2017 Tobacco use disorder [...] mask of choice, HUMIDITY. LIFETIME SUPPLIES. DME: [facility] FAMILY HISTORY Problem Relation Age of [...] diagnosis) Will fax prescription for walker to [facility] per patient request. Follow-up with orthopedics as [...] [facility] Miscellaneous Notes* Telephone Encounter - Qian [...] the knee. [email or web address] and they advised the patient reach out [...] have physicians fill out paperwork. 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 * Telephone Encounter - Qian Suh Ma [...] to review. 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 She notes they need all medical [...] an injection. She will try PT at [facility]. Patient asking if anti inflammatory can be increased and refilled? Confirmed [facility] in [place]. * Telephone Encounter - Stephanie George PA-C [...] Joaquin RN - 12/08/2021 11:53 AM EDT Lizzy called to update Dr. Hyatt on her right knee. She advised that she is using the brace and taking etodolac. If she stays off of her feet, the brace and the medication are helping control her pain, but if she has to be on her feet for an extended period of time, the medication does not help with her pain. Lizzy would like someone from Dr. Hyatt's office to call her back and advise of any other modalities she can try. Jing Jemal, RN documented in this encounterMercer County Community Hospital08-15-2022 History of Present illness Narrative* Qian Suh Ma - 10/26/2021 3:08 PM EDT PT ASSESSMENT - CASTING ROOM Lizzy presents for Application of brace. Applied XXL wrap around hinged knee brace to Right knee. Patient electronically signed Austin HARPER. Patient has been instructed in Care of brace. Qian Suh Ma * Frank Hyatt MD - 10/26/2021 2:12 PM EDT Frank Hyatt MD Department of Orthopaedics Orthopaedics [address] [facility] [address] Dept: [phone] Dept October 26, [address] Null for an opinion regarding right knee pain. [...] as well. FOLLOW UP INSTRUCTIONS: As needed . Lizzy Gant was advised as to contrast therapies and/or to take analgesics/anti-inflammatories as needed and all contraindications were reviewed. OBJECTIVE: Ms. Lizzy Gant is a pleasant 56 year old [...] mild degenerative changes in the right knee. [employer]: [employer] Transcribe Date/Time: Oct 09 2021 3:56P [...] Class III, BMI 40-49.9 (morbid obesity) ([facility]) 07/27/2017 Tobacco use disorder Unspecified hearing loss left ear - wears hearing aid Unspecified hypothyroidism Past Surgical History: PAST SURGICAL HISTORY Procedure Laterality Date COLONOSCOPY SCREENING 07/17/2020 EGD 07/17/2020 LAPS SURG CHOLECYSTECTOMY W/CHOLANGIOGRAPHY 07/22/2020 [facility] LEFT HEART CATH,PERCUTANEOUS 01/23/2019 L & [...] mask of choice, HUMIDITY. LIFETIME SUPPLIES. DME: [facility] No current facility-administered medications for this visit. Allergies: Seasonal Allergies ROS: General (negative for fatigue, malaise, weight loss/gain) HEENT (negative for headache, earache, recent vision changes, sinus pain, sore throat) Respiratory (no recent shortness of breath, hemoptysis) CV (negative for chest tightness, palpitations) Musculoskeletal (see HPI) Psych (no depression, anxiety) REFERRING PHYSICIAN: Ms. Lizzy Gant was referred to me for consultation by the following physician. This consultation note will be sent to the following physician by either mail or electronic medical record. Sam Null [address] [facility] [address] Sam Null MD [id number] [facility] [id number] Frank Hyatt MD documented in this encounterMercer County [...] of this encounter (statuses as of 01/08/2022) [address]26-2022 History of Past illness Narrative* Problem [...] of this encounter (statuses as of 04/20/2022) [address]26-[address]22 History of Past illness Narrative* Problem [...] of this encounter (statuses as of 09/15/2022) [facility] of Past [...] of this encounter (statuses as of 01/27/2023) [address]26-2022 History of Past illness Narrative* Problem [...] of this encounter (statuses as of 02/26/2023) [facility] History of Past [...] of this encounter (statuses as of 03/20/2023) [address]26-2022 History of Past illness Narrative* Problem [...] of this encounter (statuses as of 04/15/2023) [facility] History of Past [...] as of this encounter (statuses as of 05/12/2023) [facility] of Past [...] as of this encounter (statuses as of 05/31/2023) [facility] History of Past illness Narrative* Problem [...] of this encounter (statuses as of 08/26/2021) [facility] History of Past illness Narrative* Problem [...] of this encounter (statuses as of 08/31/2021) [place] [address]-02-2010 History of Past illness Narrative* Problem Noted Date Resolved Date Pain in joint, lower leg 2010 016 Tobacco use disorder 06/13/2008 07/31/2015 Overview: Pt interested in quitting as of 08-20 but worried about turning to food Non morbid obesity due to excess calories 200804/08/2021 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 documented as of this encounter (statuses as of 09/14/2021) [facility]counter for screening mammogram for [facility] cancer [facility] Diagnosis 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- Primary Effusion of right knee Effusion of lower leg joint [facility] Diagnosis 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- Primary Effusion of right knee Effusion of lower leg joint [facility]* Diagnosis Chronic pain of right knee- Primary Impaired mobility Other ill-defined conditions Obesity, Class III, BMI 40-49.9 (morbid obesity) (HCC) Morbid obesity VETO on CPAP 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 apnea (adult) (pediatric) Bile-induced gastritis Other specified gastritis without mention of hemorrhage Gastroesophageal reflux disease, unspecified whether esophagitis present Chronic renal impairment, stage 3a (HCC) documented in this encounter [facility]* Diagnosis Osteoarthritis of right knee, unspecified osteoarthritis type- Primary Chronic pain of right knee [facility] Diagnosis 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 Effusion of right knee Effusion of lower leg joint documented [facility]* Diagnosis Encounter for screening mammogram for breast cancer documented [facility]* Diagnosis 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 Effusion of right knee Effusion of lower leg joint documented in this encounter [facility]* Diagnosis Mild intermittent asthma without complication Unspecified asthma Eczema, unspecified type documented in this encounter [facility] note* Diagnosis Mild intermittent asthma without complication Unspecified asthma Eczema, unspecified type [facility]* Diagnosis Wellness examination- Primary Weight gain [...] documented in this encounter [facility]* Diagnosis 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 Effusion of right knee Effusion of lower leg joint documented in this encounter [facility]* Diagnosis Renal insufficiency Unspecified disorder of kidney and ureter documented [facility]* Diagnosis Right knee pain, unspecified chronicity- Primary documented in this encounter [facility]* Diagnosis Right knee pain, unspecified chronicity documented in this encounter [facility]* Diagnosis Multiple leg contusions, right, initial encounter Acute pain of right knee documented in this encounter [facility]* Diagnosis Multiple leg contusions, right, initial encounter- Primary Acute pain of right knee Primary osteoarthritis of right knee Primary localized osteoarthrosis, lower leg documented in this encounter [facility]* Diagnosis Stage 3a chronic kidney disease (HCC)- Primary Elevated serum creatinine Other nonspecific findings on examination of blood Right renal atrophy Renal sclerosis, unspecified Obesity, Class III, BMI 40-49.9 (morbid obesity) (HCC) Morbid obesity BMI 45.0-49.9, adult (HCC) Body Mass Index 45.0-49.9, adult [facility] Diagnosis Stage 3a chronic kidney disease (HCC)- Primary [facility] Diagnosis Multiple leg contusions, right, initial encounter Acute pain of right knee Primary osteoarthritis of right knee Primary localized osteoarthrosis, lower leg [facility] Diagnosis Gastroesophageal reflux disease, unspecified whether esophagitis present- Primary Class 3 severe obesity with serious comorbidity and body mass index (BMI) of 45.0 to 49.9 in adult, unspecified obesity type ([facility]) Paraesophageal hernia Diaphragmatic hernia without mention of obstruction or gangrene Stage 3 chronic kidney disease, unspecified whether stage 3a or 3b CKD ([facility]) Hypothyroidism, unspecified type Esophageal dysphagia Dysphagia, pharyngoesophageal phase [facility] Diagnosis Hyperglycemia- Primary Other abnormal glucose Esophageal dysphagia Dysphagia, pharyngoesophageal phase [facility] Diagnosis Subclinical hypothyroidism- Primary Other specified acquired hypothyroidism Mild intermittent asthma without complication Unspecified asthma Eczema, unspecified type Obesity, Class III, BMI 40-49.9 (morbid obesity) ([facility]) Morbid obesity No appetite Anorexia Esophageal dysphagia Dysphagia, pharyngoesophageal phase [facility] Diagnosis Gastroesophageal reflux disease, unspecified whether esophagitis present [facility] Diagnosis 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 Effusion of right knee Effusion of lower leg joint [facility] Diagnosis Multiple leg contusions, right, initial encounter Acute pain of right knee Primary osteoarthritis of right knee Primary localized osteoarthrosis, lower leg [facility] Diagnosis Encounter for screening mammogram for breast cancer [facility] Diagnosis 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 Effusion of right knee Effusion of lower leg joint [facility] Diagnosis Gastroesophageal reflux disease without esophagitis- Primary Esophageal reflux Paraesophageal hernia Diaphragmatic hernia without mention of obstruction or gangrene Class 3 severe obesity with serious comorbidity and body mass index (BMI) of 45.0 to 49.9 in adult, unspecified obesity type ([facility]) Atrial fibrillation, unspecified type ([facility]) Uncomplicated asthma, unspecified asthma severity, unspecified whether persistent Stage 3 chronic kidney disease, unspecified whether stage 3a or 3b CKD ([facility]) Hypothyroidism, unspecified type documented in this encounter [facility] note* Diagnosis Class 3 severe obesity due to excess calories with serious comorbidity and body mass index (BMI) of 45.0 to 49.9 in adult ([facility])- Primary Gastroesophageal reflux disease without esophagitis Esophageal reflux Paraesophageal hernia Diaphragmatic hernia without mention of obstruction or gangrene Irritable bowel syndrome, unspecified type Atrial fibrillation, unspecified type ([facility]) Hyperlipidemia, unspecified hyperlipidemia type Lymphedema Other lymphedema VETO treated with BiPAP Asthma, unspecified asthma severity, unspecified whether complicated, unspecified whether persistent Arthralgia, unspecified joint Stage 3 chronic kidney disease, unspecified whether stage 3a or 3b CKD ([facility]) Hypothyroidism, unspecified type documented in this encounter [facility] note* Diagnosis Vitamin D deficiency- Primary Unspecified vitamin D deficiency Folate deficiency Other B-complex deficiencies documented in this encounter [facility] note* Diagnosis Class 3 severe obesity due to excess calories with serious comorbidity and body mass index (BMI) of 45.0 to 49.9 in adult ([facility])- Primary [facility]* Diagnosis Gastroesophageal reflux disease, unspecified whether esophagitis present- Primary Mild intermittent asthma without complication Unspecified asthma Screening for depression Encounter for screening examination for other mental health and behavioral disorders Atypical chest pain Other chest pain Obesity, Class III, BMI 40-49.9 (morbid obesity) ([facility]) Morbid obesity Need for vaccination Need for prophylactic vaccination and inoculation against unspecified single disease [facility] Diagnosis Vitamin D deficiency- Primary Unspecified vitamin D deficiency [facility] Diagnosis Effusion of right knee Effusion of lower leg joint documented in this encounter [facility] note* Diagnosis Class 3 severe obesity due to excess calories with serious comorbidity and body mass index (BMI) of 45.0 to 49.9 in adult ([facility])- Primary VETO treated with BiPAP Chronic kidney disease, unspecified CKD stage Atrial fibrillation, unspecified type ([facility]) Need for vaccination Need for prophylactic vaccination and inoculation against unspecified single disease [facility] Diagnosis Vitamin D deficiency Unspecified vitamin D deficiency documented in this encounter [facility] for referral (narrative)* Diagnostic Procedure Only (Routine) - Pending Review Specialty Diagnoses / Procedures Referred By Matty craven Referred To Contact [facility] IMAG[facility] Diagnoses Encounter for screening mammogram for breast cancer Procedures MEREDITH SCREENING SCREENING MAMMOGRAPHY BI 2-VIEW BREAST INC Sam Abrams MD [address] [place] [address] [facility] [address] [place] [address] Referral ID Status Reason Start Date Expiration Date Visits Requested Visits Authorized [id number] Pending Review Auto-Generat ed Referral 09/09/2021 10/09/2022 [address] 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 for referral (narrative)* Diagnostic Procedure Only (Routine) - Pending Review Specialty Diagnoses / Procedures Referred By Matty craven Referred To Contact [facility] Diagnoses Encounter for screening mammogram for breast cancer Procedures MEREDITH SCREENING SCREENING MAMMOGRAPHY BI 2-VIEW BREAST INC Sam Abrams MD [address] [place] [address] [facility] [address] [place] [address] Referral ID Status Reason Start Date Expiration Date Visits Requested Visits Authorized [id number] Pending Review Auto-Generat ed Referral 09/15/2022 10/15/2023 [address] [facility] for referral (narrative)* Diagnostic Procedure Only (Routine) - Closed Specialty Diagnoses / Procedures Referred By Contac t Referred To Contact US IMAGING Diagnoses Renal insufficiency Procedures US KIDNEY/BLADDER US RETROPERITONEAL REAL TIME W/IMAGE COMPLETE Verito Broderick APRN.[employer] [address] [place] [address] [place] [address] Referral ID Status Reason Start Date Expiration Date V isits Requested Visits Authorized [id number] Closed Auto-Generate d Referral 11/18/2022 12/18/2023 [address] [facility] for referral (narrative)* Diagnostic Procedure Only (Routine) - Pending Review Specialty Diagnoses / Procedures Referred By Contac t Referred To Contact XR IMAGING Diagnoses Right knee pain, unspecified chronicity Procedures XR KNEE GENERAL 4V AP BOTH/PA BOTH/LAT/MERC RIGHT RADIOLOGIC EXAM KNEE COMPLETE 4/MORE VIEWS Frank Hyatt MD [address] [place] [address] [place] [address] Referral ID Status Reason Start Date Expiration Date Visits Requested Visits Authorized [id number] Pending Review Auto-Generat ed Referral 02/14/2023 03/15/2024 1 1 [facility] for referral (narrative)* Diagnostic Procedure Only (Routine) - Closed Specialty Diagnoses / Procedures Referred By Contac t Referred To Contact XR IMAGING Diagnoses Multiple leg contusions, right, initial encounter Acute pain of right knee Procedures XR TIBIA FIBULA 2V AP/LAT RIGHT RADIOLOGIC EXAMINATION TIBIA & FIBULA 2 VIEWS Frank Hyatt MD [address] [place] [address] [place] [address] Referral ID Status Reason Start Date Expiration Date V isits Requested Visits Authorized [id number] Closed Auto-Generate d Referral 02/21/2023 03/22/2024 [address] [facility] for referral (narrative)* Outpatient Procedure (Routine) - Pending Review Specialty Diagnoses / Procedures Referred By Matty craven Referred To [facility] Diagnoses Esophageal dysphagia Procedures MANOMETRY ESOPHAGEAL ESOPHAGEAL MOTILITY STUDY W/INTERP&RPT Mary Jo Herzog MD 1 [employer] [address] [place] [address] [address] [place] [address] Referral ID Status Reason Start Date Expiration Date Visits Requested Visits Authorized [id number] Pending Review Auto-Generat ed Referral 07/06/2023 07/05/2024 1 1 * Outpatient Procedure (Routine) - Pending Review Specialty Diagnoses / Procedures [facility] To [facility] Diagnoses Gastroesophageal reflux disease, unspecified whether esophagitis present Procedures EGD - THERAPEUTIC, EUS, OR TUBE INTERVENTIONS ESOPHAGOGASTRODUODENOSC OPY TRANSORAL DIAGNOSTIC Mary Jo Herzog MD [address] [employer] [address] [address] [facility] [address] [place] [address] Referral ID Status Reason Start Date Expiration Date Visits Requested Visits Authorized [id number] Pending Review Auto-Generat ed Referral 07/06/2023 07/05/2024 [address] [facility] for referral (narrative)* Outpatient Procedure (Routine) - Closed Specialty Diagnoses / Procedures [facility] To [facility] Diagnoses Gastroesophageal reflux disease, unspecified whether esophagitis present Procedures EGD - THERAPEUTIC, EUS, OR TUBE INTERVENTIONS EGD - THERAPEUTIC, EUS, OR TUBE INTERVENTIONS ESOPHAGOGASTRODUODENOSC OPY TRANSORAL DIAGNOSTIC Mary Jo Herzog MD [employer] [address] [place] [address] [facility] [address] [place] [address] Referral ID Status Reason Start Date Expiration Date V isits Requested Visits Authorized [id number] Closed Auto-Generate d Referral 07/06/2023 07/05/20[address] [facility] for referral (narrative)* Diagnostic Procedure Only (Routine) - Pending Review Specialty Diagnoses / Procedures Referred By Contac t Referred To Contact BR IMAGING Diagnoses Encounter for screening mammogram for breast cancer Procedures MEREDITH SCREENING SCREENING MAMMOGRAPHY BI 2-VIEW BREAST INC CAD Sam Null MD [address] [place] [address] Br Imaging [address] [place] [address] Referral ID Status Reason Start Date Expiration Date Visits Requested Visits Authorized [id number] Pending Review Auto-Generat ed Referral 08/17/2023 09/15/2024 [address] [facility] for referral (narrative)* Diagnostic Procedure Only (Routine) - Pending Review Specialty Diagnoses / Procedures Referred By Contac t Referred To Contact US IMAGING Diagnoses Class 3 severe obesity due to excess calories with serious comorbidity and body mass index (BMI) of 45.0 to 49.9 in adult (HCC) Procedures US ABD RIGHT UPPER QUADRANT US ABDOMINAL REAL TIME W/IMAGE LIMITED Gunner Sutton, [employer] [address] [place] [address] [place] [address] Referral ID Status Reason Start Date Expiration Date Visits Requested Visits Authorized [id number] Pending Review Auto-Generat ed Referral 09/20/2023 10/19/2024 [address] [facility] for referral (narrative)* Diagnostic Procedure Only (Routine) - Closed Specialty Diagnoses / Procedures Referred By Contac t Referred To Contact XR IMAGING Diagnoses Effusion of right knee Procedures XR KNEE GENERAL 4V AP BOTH/PA BOTH/LAT/MERC RIGHT RADIOLOGIC EXAM KNEE COMPLETE 4/MORE VIEWS Sam Null MD [address] [place] [address] [place] [address] Referral ID Status Reason Start Date Expiration Date V isits Requested Visits Authorized [id number] Closed Auto-Generate d Referral 10/08/2021 11/07/2022 [address] [facility] for visit Narrative* Diagnostic Procedure Only (Routine) - Closed Specialty Diagnoses / Procedures Referred By Contac t Referred To Contact US IMAGING Diagnoses Renal insufficiency Procedures US KIDNEY/BLADDER US RETROPERITONEAL REAL TIME W/IMAGE COMPLETE Verito Broderick APRN.CNP [address] [place] [address] [place] [address] Referral ID Status Reason Start Date Expiration Date V isits Requested Visits Authorized [id number] Closed Auto-Generate d Referral 11/18/2022 12/18/2023 [address] [facility] for visit Narrative* Diagnostic Procedure Only (Routine) - Closed Specialty Diagnoses / Procedures Referred By Contac t Referred To Contact XR IMAGING Diagnoses Right knee pain, unspecified chronicity Procedures XR KNEE GENERAL 4V AP BOTH/PA BOTH/LAT/MERC RIGHT RADIOLOGIC EXAM KNEE COMPLETE 4/MORE VIEWS Frank Hyatt MD [address] [place] [id number] [place] [address] Referral ID Status Reason Start Date Expiration Date V isits Requested Visits Authorized [id number] Closed Auto-Generate d Referral 02/14/2023 03/15/2024 [address] [facility] for visit Narrative* Diagnostic Procedure Only (Routine) - Closed Specialty Diagnoses / Procedures Referred By Contac t Referred To Contact XR IMAGING Diagnoses Multiple leg contusions, right, initial encounter Acute pain of right knee Procedures XR TIBIA FIBULA 2V AP/LAT RIGHT RADIOLOGIC EXAMINATION TIBIA & FIBULA 2 VIEWS Frank Hyatt MD [address] [place] [address] [place] [address] Referral ID Status Reason Start Date Expiration Date V isits Requested Visits Authorized [id number] Closed Auto-Generate d Referral 02/21/2023 03/22/20[address] [facility] for visit Narrative* Outpatient Procedure (Routine) - Closed Specialty Diagnoses / Procedures Referred By Suzyac t Referred To Contact [facility] Diagnoses Gastroesophageal reflux disease, unspecified whether esophagitis present Procedures EGD - THERAPEUTIC, EUS, OR TUBE INTERVENTIONS EGD - THERAPEUTIC, EUS, OR TUBE INTERVENTIONS ESOPHAGOGASTRODUODENOSC OPY TRANSORAL DIAGNOSTIC Mary Jo Herzog MD [address] [address] [facility] [address] [place] [address] Referral ID Status Reason Start Date Expiration Date V isits Requested Visits Authorized [id number] Closed Auto-Generate d Referral 07/06/2023 07/05/20[address] [facility] for visit Narrative* Diagnostic Procedure Only (Routine) - Closed Specialty Diagnoses / Procedures Referred By Matty t Referred To Contact XR IMAGING Diagnoses Effusion of right knee Procedures XR KNEE GENERAL 4V AP BOTH/PA BOTH/LAT/MERC RIGHT RADIOLOGIC EXAM KNEE COMPLETE 4/MORE VIEWS Sam Null MD [address] [place] [address] [place] [address] Referral ID Status Reason Start Date Expiration Date V isits Requested Visits Authorized [id number] Closed Auto-Generate d Referral 10/08/2021 11/07/2022 1 1 [facility] Summary Purpose Family History No Family History Records FoundNo Family History Records FoundNo Family History Records Found Advance Directives No Advanced Directives Records FoundDocuments on File Type Date Recorded 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 Advance Directive(s) 04/11/2017 1:26 PM Documents on File Type Date Recorded 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 Advance Directive(s) 04/11/2017 1:26 PM Reason for Referral Specialty Diagnoses / Procedures Referred By Matty t Referred To Contact Diagnoses Mild intermittent asthma without complication Sam Null MD [address] [place] [address] Referral ID Status Reason Start Date Expiration Date Visits Re quested Visits Authorized [id number] Closed 1 1 Specialty Diagnoses / Procedures Referred By Contac t Referred To Contact Diagnoses Wellness examination Procedures CONSULT TO WOMEN'S HEALTH OFFICE/OUTPATIENT NEW HIGH MDM 60-74 MINUTES 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, 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, 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[employer] [address] [place] [address] Referral ID Status Reason Start Date Expiration Date Visits Requested Visits Authorized [id number] Authorized PCP Requested Referral Auto-Generate d Referral 11/17/2022 11/17/2023 1 1 Additional Source Comments INFORMATION SOURCE (unrecogn ized section and content) DATE CREATED AUTHOR 09/05/2017 [facility] ([place]) DATE CREATED AUTHOR AUTHOR'S ORGANIZ ATION 12/18/2023 [facility] DATE CREATED AUTHOR AUTHOR'S ORGANIZ ATION 01/02/2024 [facility] Source Comments (unrecognize d section and [...] or prosecute any alcohol or drug abuse patient.[facility] the event this information is protected [...] Care Teams (unrecognized sec tion and content) Civilian Technician Relationship Specialty Start Date End Date Sam Null MD [address] [place] [address] PCP - General Internal Medicine 07/09/19 Civilian Technician Relationship Specialty Start Date End Date Sam Null MD [address] [place] [address] PCP - General Internal Medicine 07/09/19 Civilian Technician Relationship Specialty Start Date End Date Sam Null MD [address] [place] [address] PCP - General Internal Medicine 07/09/19 Civilian Technician Relationship Specialty Start Date End Date Sam Null MD [address] [place] [address] PCP - General Internal Medicine 07/09/19 Civilian Technician Relationship Specialty Start Date End Date Sam Null MD [address] [place] [address] PCP - General Internal Medicine 07/09/19 Civilian Technician Relationship Specialty Start Date End Date Sam Null MD [address] [place] [address] PCP - General Internal Medicine 07/09/19 Civilian Technician Relationship Specialty Start Date End Date Sam Null MD [address] [place] [address] PCP - General Internal Medicine 07/09/19 Civilian Technician Relationship Specialty Start Date End Date Sam Null MD [address] [facility] [address] PCP - General Internal Medicine 07/09/19 Civilian Technician Relationship Specialty Start Date End Date Sam Null MD [address] [place] [address] PCP - General Internal Medicine 07/09/19 Civilian Technician Relationship Specialty Start Date End Date Sam Null MD [address] [place] [address] PCP - General Internal Medicine 07/09/19 Civilian Technician Relationship Specialty Start Date End Date Sam Null MD [address] [place] [address] PCP - General Internal Medicine 07/09/19 Civilian Technician Relationship Specialty Start Date End Date Sam Null MD [address] [place] [address] PCP - General Internal Medicine 07/09/19 Civilian Technician Relationship Specialty Start Date End Date Sam Null MD [address] [place] [address] PCP - General Internal Medicine 07/09/19 Civilian Technician Relationship Specialty Start Date End Date Sam Null MD [address] [place] [address] PCP - General Internal Medicine 07/09/19 Civilian Technician Relationship Specialty Start Date End Date Sam Null MD [address] [place] [address] PCP - General Internal Medicine 07/09/19 Civilian Technician Relationship Specialty Start Date End Date Sam Null MD [address] [place] [address] PCP - General Internal Medicine 07/09/19 Civilian Technician Relationship Specialty Start Date End Date Sam Null MD [address] [place] [address] PCP - General Internal Medicine 07/09/19 Civilian Technician Relationship Specialty Start Date End Date Sam Null MD [address] [place] [address] PCP - General Internal Medicine 07/09/19 Civilian Technician Relationship Specialty Start Date End Date Sam Null MD [address] [place] [address] PCP - General Internal Medicine 07/09/19 Civilian Technician Relationship Specialty Start Date End Date Sam Null MD [address] [place] [address] PCP - General Internal Medicine 07/09/19 Civilian Technician Relationship Specialty Start Date End Date Sam Null MD [address] [place] [address] PCP - General Internal Medicine 07/09/19 Civilian Technician Relationship Specialty Start Date End Date Sam Null MD [address] [place] [address] PCP - General Internal Medicine 07/09/19 Civilian Technician Relationship Specialty Start Date End Date Sam Null MD [address] [place] [address] PCP - General Internal Medicine 07/09/19 Civilian Technician Relationship Specialty Start Date End Date Sam Null MD [address] [place] [address] PCP - General Internal Medicine 07/09/19 Civilian Technician Relationship Specialty Start Date End Date Sam Null MD [address] [place] [address] PCP - General Internal Medicine 07/09/19 Civilian Technician Relationship Specialty Start Date End Date Sam Null MD [address] [place] [address] PCP - General Internal Medicine 07/09/19 Kemar Byrnes DO [address] [place] [address] Gastroenterology 07/04/23 Civilian Technician Relationship Specialty Start Date End Date Sam Null MD [address] [place] [address] PCP - General Internal Medicine 07/09/19 Kemar Byrnes DO [address] [place] [address] Gastroenterology 07/04/23 Civilian Technician Relationship Specialty Start Date End Date Sam Null MD [address] [place] [address] PCP - General Internal Medicine 07/09/19 Kemar Byrnes DO [address] [place] [address] Gastroenterology 07/04/23 Civilian Technician Relationship Specialty Start Date End Date Sam Null MD [address] [place] [address] PCP - General Internal Medicine 07/09/19 Kemar Byrnes DO [address] [place] [address] Gastroenterology 07/04/23 Civilian Technician Relationship Specialty Start Date End Date Sam Null MD [address] [place] [address] PCP - General Internal Medicine 07/09/19 Kemar Byrnes DO [address] [place] [address] Gastroenterology 07/04/23 Civilian Technician Relationship Specialty Start Date End Date Sam Null MD [address] [place] [address] PCP - General Internal Medicine 07/09/19 Kemar Byrnes DO [address] [address] Gastroenterology 07/04/23 Civilian Technician Relationship Specialty Start Date End Date Sam Null MD [address] [place] [address] PCP - General Internal Medicine 07/09/19 Kemar Byrnes DO [address] [place] [address], [place] [address] Gastroenterology 07/04/23 Civilian Technician Relationship Specialty Start Date End Date Sam Null MD [address] [place] [address] PCP - General Internal Medicine 07/09/19 Kemar Byrnes DO [address] [place] [address] Gastroenterology 07/04/23 Civilian Technician Relationship Specialty Start Date End Date Sam Null MD [address] [place] [address] PCP - General Internal Medicine 07/09/19 Kemar Byrnes DO [address] [place] [address] Gastroenterology 07/04/23 Civilian Technician Relationship Specialty Start Date End Date Sam Null MD [address] [place] [address] PCP - General Internal Medicine 07/09/19 Kemar Byrnes DO [address] [place] [address] Gastroenterology 07/04/23 Civilian Technician Relationship Specialty Start Date End Date Sam Null MD [address] [place] [address] PCP - General Internal Medicine 07/09/19 Kemar Byrnes DO [address] [place] [address] Gastroenterology 07/04/23 Civilian Technician Relationship Specialty Start Date End Date Sam Null MD [address] [place] [address] PCP - General Internal Medicine 07/09/19 Kemar Byrnes DO [address] [place] [address] Gastroenterology 07/04/23 Civilian Technician Relationship Specialty Start Date End Date Sam Null MD [address] [place] [address] PCP - General Internal Medicine 07/09/19 Kemar Byrnes DO [address] [place] [address] Gastroenterology 07/04/23 Civilian Technician Relationship Specialty Start Date End Date Sam Null MD [address] [place] [address] PCP - General Internal Medicine 07/09/19 Kemar Byrnes DO [address] [place] [address] Gastroenterology 07/04/23 Civilian Technician Relationship Specialty Start Date End Date Sam Null MD [address] [place] [address] PCP - General Internal Medicine 07/09/19 Kemar Byrnes DO [address] [facility] [address] [place] [address] Gastroenterology 07/04/23 Civilian Technician Relationship Specialty Start Date End Date Sam Null MD [address] [place] [address] PCP - General Internal Medicine 07/09/19 Kemar Byrnes DO [address] [facility] [place] [address] Gastroenterology 07/04/23 Civilian Technician Relationship Specialty Start Date End Date Sam Null MD [address] [place] [address] PCP - General Internal Medicine 07/09/19 Kemar Byrnes DO [address] [facility] [place] [address] Gastroenterology 07/04/23 Civilian Technician Relationship Specialty Start Date End Date Sam Null MD [address] [place] [address] PCP - General Internal Medicine 07/09/19 Kemar Byrnes DO [address] [facility] [address] [place] [address] Gastroenterology 07/04/23 Civilian Technician Relationship Specialty Start Date End Date Sam Null MD [address] [place] [address] PCP - General Internal Medicine 07/09/19 Kemar Byrnes DO [address] [facility] [address] [place], [place] [address] Gastroenterology 07/04/23 Civilian Technician Relationship Specialty Start Date End Date Sam Null MD [address] [facility] [place], [place] [address] PCP - General Internal Medicine 07/09/19 Kemar Byrnes DO [address] [facility] [address] [place], [place] [address] 143- Gastroenterology 07/04/23 Civilian Technician Relationship Specialty Start Date End Date Sam Null MD [address] [facility], [place] [address] PCP - General Internal Medicine 07/09/19 Civilian Technician Relationship Specialty Start Date End Date Sam Null MD [address] [facility], [place] [address] PCP - General Internal Medicine 07/09/19 Kemar Byrnes DO [address] [facility] [address] [place], [place] [address] 357- Gastroenterology 07/04/23 Civilian Technician Relationship Specialty Start Date End Date Sam Null MD [address] [facility], [place] [address] PCP - General Internal Medicine 07/09/19 Kemar Byrnes DO [address] [place], [place] [address] 188- Gastroenterology 07/04/23 Reason for Visit (unrecogniz ed section and content) Reason Comments New Patient Knee Pain Specialty Diagnoses / Procedures Referred By Contac t Referred To Contact Orthopedics Diagnoses Effusion of right knee Procedures CONSULT TO ORTHOPAEDICS OFFICE/OUTPATIENT NEW HIGH MDM 60-74 MINUTES Sam Null MD [address] [place] [address] Referral ID Status Reason Start Date Expiration Date V isits Requested Visits Authorized [id number] Closed PCP Requested Referral 10/08/2021 10/08/2022 1 [...] NEPHROLOGY OFFICE/OUTPATIENT NEW HIGH MDM 60-74 MINUTES Verito Broderick APRN.CNP [address] [place] [phone] Referral ID Status Reason Start Date Expiration Date V isits Requested Visits Authorized [id number] Closed PCP Requested Referral 12/15/2022 12/15/2023 1 1 Reason Comments Patient Question Reason Comments Established Patient Pain Reason Comments Follow Up She[facility] 01/27/2023 CKD Reason Comments Bariatric Seminar Reason Comments New Patient Reason Comments Appointment EGD/Kirk/Mano Reason Comments Recheck Follow up, review la bs Specialty Diagnoses / Procedures Referred By Contac t Referred To Contact Diagnoses Esophageal dysphagia Procedures ESOPHAGEAL MOTILITY STUDY W/INTERP&RPT ESOPHAGEAL MANOMETRY [facility] [address] [place] [address] Referral ID Status Reason Start Date Expiration Date Visits Re quested Visits Authorized [id number] 1 1 Reason Comments Established Patient Reason Comments Patient Update Bariatric Benefits I nvestigation Reason Comments Established Patient Reason Comments Results Reason Comments New Patient Reason Comments Results Abnormal Kidney Tests Reason Comments F/U 3 Month Reason Comments Obesity Reason Comments Medical Clearance Scheduled Active and Recently Administ ered Medications (unrecognized section and content) Medication Order 07/19/2023 07/20/2023 07/21/2023 lidocaine urojet 2 % 11 mL topical gel (GLYDO) (COMPLETED) 11 mL, MUCOUS MEMBRANE, ONCE, 1 dose, On Maryse 07/21/23 at 1330, Dosing as directed for intraprocedural use only, Intraprocedure 1314 (Given - Provid er: Юлия Canales RN) NaCl 0.9% irrigation solution (COMPLETED) 60 mL, IRRIGATION, ONCE, 1 dose, On Maryse 07/21/23 at 1330, Dosing as directed for intraprocedural use only, Intraprocedure 1314 (Given - Provid er: Юлия Canales RN) FOR RECORDS PERTAINING TO PATIENTS WHO ARE [...] BE BASED ON THE PRIMARY CLINICAL RECORDS. [facility]. provides no warranty or guarantee of the accuracy or completeness of information in this document.
[2024-01-04] MEDS: Midazolam 2 MG/2 ML Syringe IV ×2 (10:27→10:43)
[2024-01-04] MEDS: 0.9% Saline Lock 10 ML Syringe IV ×3 (10:29→11:02)
[2024-01-04] MEDS: fentaNYL 100 MCG/2 ML Ampul IV ×2 (10:31→10:45)
[2024-01-04] MEDS: Lidocaine 2% (20 ml mdv) 20 ML Vial INFILT (10:43)
[2024-01-04] MEDS: Ketorolac 30 MG/ML Syringe IV (10:59)
--- NOTE | 2024-01-04 11:50 | CT_ITS ---
STUDY: CT ABDOMEN WITHOUT CONTRAST REASON FOR EXAM: Female, 58 years old. POST LIVER BIOPSY- LOW B/P RADIATION DOSAGE (If Supplied By Facility): CTDIvol = ( 23.40 ) mGy, DLP = ( 794.68 ) mGycm TECHNIQUE: Transaxial images were obtained without intravenous contrast, and without oral contrast. Sagittal and coronal images were reconstructed. Individualized dose optimization techniques were used for this CT. COMPARISON: Comparison is made with prior study October 21, 2023. FINDINGS: Minimal increased markings at the right lung base suggestive of atelectasis. The visualized portions of the heart are within normal limits. Normal liver. The patient is status post biopsy of the right anterior lobe of the liver. Mild postbiopsy changes are seen. No evidence of a hepatic injury. No evidence of subcapsular fluid. The patient is status post cholecystectomy. Normal spleen. Normal pancreas. Normal bilateral adrenal glands. Normal right kidney. Normal left kidney. Normal visualized stomach. Normal small intestine. Normal colon. The appendix is visualized and appears normal. Normal abdominal aorta. Normal inferior vena cava. Normal retroperitoneum. Normal abdominal wall. Normal osseous structures. CT/Abdomen without IV Contrast IMPRESSION: Status post right liver biopsy. No acute abnormality is seen. Electronically Signed: Antoine Woods MD at 12:10 EDT ,
--- NOTE | 2024-01-04 13:04 | PCM.OP.PRO ---
Procedure Report Date of Procedure: 01/04/24 Assessment & Plan Assessment/Plan (1) Cirrhosis: QUALIFIERS: Hepatic cirrhosis type: unspecified hepatic cirrhosis Ascites presence: without ascites Qualified Code(s): K74.60 - Unspecified cirrhosis of liver PLAN: PROCEDURE: CT DIRECTED CORE LIVER BIOPSY ORDERING PROVIDER: Dr. Byrnes INDICATION: Female, 58 years old. Liver cirrhosis. PROVIDER: NITZA Nichols CONSENT: Written informed consent was obtained having explained the risks, benefits and alternatives in detail with the patient who accepted the risks and agreed to proceed. Laboratory review and clinical assessment was performed. PRE-PROCEDURE SEDATION ASSESSMENT: Current history and physical dictated by referring provider and reviewed. No clinical changes since date of exam. Patient has a Mallampati Score of Class 1 and ASA Class of 3. PROCEDURAL SEDATION PROTOCOL: The Drugs used were: 3 mg Versed, IV, and 75 mcg Fentanyl, IV. The sedation time was: 22 minutes, starting at 1027 and terminated at 1049. The procedural sedation protocol was independently monitored by the department nurse. RADIATION DOSAGE (If Supplied By Facility): CTDIvol = 26.41 mGy, DLP = 761.01 mGycm Individualized dose optimization techniques were used for this CT. TECHNIQUE The patient was placed in a supine position. Using CT image guidance with image documentation, a suitable location in the right lobe of the liver was identified. The skin surface was prepped with chlorhexidine and draped in a sterile fashion. 2% lidocaine was used for local anesthesia. Using an anterior approach, puncture of the liver was uneventful with an 18-gauge core needle system. 3, 18-gauge core samples were obtained, and submitted in formalin to the pathologist for further assessment. The needle was removed. An occlusive sterile dressing was applied. Patient tolerated the procedure well, and returned to the holding bay for nursing monitoring. Patient did complain of postprocedural pain. Toradol 30 mg IV was ordered for this. Patient continued to have pain, despite sedation medications and Toradol. A noncontrast CT of the abdomen was ordered by Dr. Woods and reviewed. This was negative for any intra-abdominal bleeding. Patient return to the holding bay and was agreeable to discharge in the care of her son-in-law. IMPRESSION: CT directed core needle biopsy of the liver, using CT image guidance with image documentation as described. Procedural Sedation protocol utilized with independent monitoring. Procedures Radiology Radiology CT Procedures: 98703 Biopsy Liver Multi Select Codes Radiology Radiology CT Procedures: [id number] CT guidance parenchymal tissue
== END | disposition home or self-care (01) ==
PROVIDERS: Nurse Practitioner Acute Care; PCP Internal Medicine; Referring Provider Internal Medicine Gastroenterology; Visit Provider Internal Medicine Gastroenterology
DX: K74.69 Other cirrhosis of liver (principal); K73.9 Chronic hepatitis, unspecified
CPT/HCPCS: 47000; 88161; 88172; 88305; 88313; J2405; 36415; 74150; 77012; 85049; 85610; 85730; 88307; 88312; 99156; A4216

== ENCOUNTER → 2024-06-19 | Outpatient (CLI) | payer MEDICAID, SELFPAY ==
[2024-06-19 13:45] VITALS: PULSE 62; PULSE 71; PULSE 79; PULSE 83; PULSE 84; PULSE 86; PULSE 89; PULSE 92; O2SAT 95; O2SAT 97; O2SAT 98; O2SAT 99
--- NOTE | 2024-06-19 14:12 | CPS ---
Three minutes into walk pt rest for approximately 30 seconds due to feeling lightheaded.
--- NOTE | 2024-06-19 16:30 | RAD_ITS ---
PROCEDURE: CHEST PA AND LATERAL 06/19/2024 REASON FOR EXAM: SOB TECHNIQUE: Frontal and lateral views of the chest. COMPARISON: Two views of the chest FINDINGS: Hardware: None Heart: Cardiomediastinal silhouette is within normal limits. Normal pulmonary vascularity. Mediastinum: Unremarkable Lungs: No focal consolidation. Bones: No acute fractures. RAD/Chest PA and Lateral IMPRESSION: No acute cardiopulmonary abnormality. Reading Location: [id number]
[2024-06-19 17:18] LABS: Hematocrit 39.7 % (37-47); Hemoglobin 13.2 g/dL (12.0-15.0); Mean Corp Hgb Conc 33.2 g/dL (32-36); Mean Corpuscular Hgb 29.3 pg (27.0-32.0); Mean Corpuscular Volume 88.2 fL (81-99); Mean Platelet Vol. 11.2 fl (6.2-12.0); Platelet Count 194 K/mm3 (150-450); RBC Distribution Width CV 14.1 % (11.6-14.6); RBC Distribution Width SD 45.1 fl (35.1-43.9); White Blood Count 7.8 K/mm3 (4.4-11.0)
[2024-06-19 18:29] LABS: Anion Gap 12 (5-15); BUN 23 mg/dL (4-19); BUN/Creat Ratio 19.2 RATIO (10-20); Calcium,Total 9.5 mg/dL (7.6-11.0); Carbon Dioxide 26.8 mmol/L (21.0-32.0); Chloride 102 mmol/L (98-108); EST Glomerular Filtration Rate 52 (>60); Estimated Creatinine Clearance 58.99 ml/min (50-250); Glucose 95 mg/dL (70-99); Potassium 4.5 mmol/L (3.3-5.1); Pro- Brain NATRIURETIC PEPTIDE 191 pg/mL (<=900); Sodium Level 141 mmol/L (133-145)
--- NOTE | 2024-06-25 11:22 | WT_ITS ---
PSN 6 Minute Walk Test 6 Minute Walk Test 6 Minute Walk Test: 6 Minute Walk Test PSN:6-Minute Walk Test Start: 06/19/24 14:08 Freq: Status: Active Protocol: [id number].6MINW Document 06/19/24 13:45 AEH (Rec: 06/19/24 14:13 AEH [id number]) 6 Minute Walk Test Date Performed 06/19/24 Time Performed 13:45 Height 5 ft 6 in Weight: 217 lb Weight in Pounds [address]: Maru Assistive device None used: Pre-test Oxygen Delivery Room Air Method Pulse Ox (%) 99 Pulse Rate (60-100 62 beats/min) Dyspnea Young Scale ( 0.5 0-10) Exertion Young Scale 6 (6-20) 1st minute Oxygen Delivery Room Air Method Pulse Ox (%) 99 Pulse Rate (60-100 84 beats/min) 2nd minute Oxygen Delivery Room Air Method Pulse Ox (%) 99 Pulse Rate (60-100 83 beats/min) 3rd minute Oxygen Delivery Room Air Method Pulse Ox (%) 98 Pulse Rate (60-100 89 beats/min) Number of Rests 1 Taken Reported Symptoms Dizziness 4th minute Oxygen Delivery Room Air Method Pulse Ox (%) 98 Pulse Rate (60-100 79 beats/min) 5th minute Oxygen Delivery Room Air Method Pulse Ox (%) 95 Pulse Rate (60-100 86 beats/min) 6th minute Oxygen Delivery Room Air Method Pulse Ox (%) 97 Pulse Rate (60-100 92 beats/min) Dyspnea Young Scale ( 2 0-10) Exertion Young Scale 13 (6-20) Post-test Oxygen Delivery Room Air Method Pulse Ox (%) 98 Pulse Rate (60-100 71 beats/min) Full Laps Walked 12 Partial Lap, Number 38 of Tiles Walked Total Distance 746 Walked (ft) 06/19/24 14:12 Cardiopulmonary Services by Kerrie Tucker Three minutes into walk pt rest for approximately 30 seconds due to feeling lightheaded. Initialized on 06/19/24 14:12 - END OF NOTE Interpretation Interpretation: The patient ambulated 746 feet over the course of 6 minutes beginning on room air without assistive devices. Pretesting oxygen saturation was noted to be 99% on room air. With ambulation, the george oxygen saturation was 95%. There was no significant exertional oxygen desaturation. Recommendations Recommendations: There is no indication for the use of supplemental oxygen at this time.
== END | disposition home or self-care (01) ==
PROVIDERS: Nurse Practitioner Family; PCP Internal Medicine; Referring Provider Nurse Practitioner Acute Care; Visit Provider Nurse Practitioner Acute Care
DX: R06.02 Shortness of breath (principal); R00.2 Palpitations
CPT/HCPCS: 71046; 80048; 83880; 85027; 94618

== ENCOUNTER → 2024-07-10 | Outpatient (CLI) | payer MEDICAID, SELFPAY | END | disposition home or self-care (01) | LOC: PSN 12:54 | PROVIDERS: PCP Internal Medicine; Referring Provider Nurse Practitioner Acute Care; Visit Provider Nurse Practitioner Acute Care | DX: R06.00 Dyspnea, unspecified (principal) | CPT/HCPCS: 94060; 94726; 94729 ==

== ENCOUNTER → 2024-08-03 | Outpatient (CLI) | payer MEDICAID, SELFPAY ==
--- NOTE | 2024-08-03 13:38 | ECHOCS_ITS ---
Reason For Study Reason For Study: SOB Procedure This was a 2D Doppler, Color Flow transthoracic echocardiogram. The study was technically difficult. Due to suboptimal imaging windows. Contrast injection was performed. Exam performed in department. Left Ventricle Normal LV size. The estimated ejection fraction is 55 %. No evidence for diastolic dysfunction. No regional wall motion abnormalities noted. Right Ventricle Normal RV size. Normal systolic function. Atria The left and right atria are normal. No doppler evidence for ASD. Mitral Valve There is no mitral valve stenosis. No mitral valve insufficiency. Tricuspid Valve There is no tricuspid stenosis. Unable to estimate RV systolic pressure due to inadequate jet, pulmonary artery pressure probably normal. Aortic Valve Trisinus/trileaflet aortic valve. Aortic sclerosis, no stenosis. No aortic valve insufficiency. Pulmonic Valve There is no pulmonic valvular stenosis. No pulmonic valve insufficiency. Great Vessels Normal sized aortic root. Pericardium/Pleural No pericardial effusion. Medication 22 gauge I.V. with prn adaptor inserted into left arm. Diluted definity 2.0ml given slow IV push to enhance endocardial definition. MMode/2D Measurements & Calculations LVIDd: 4.0 cm IVSd: 0.86 cm Ao root diam: 3.2 cm LVIDs: 2.7 cm LVPWd: 0.82 cm RVDd: 3.2 cm FS: 31.3 % LAV(MOD-bp): 63.6 ml LVAd ap4: 23.1 cm2 LVAd ap2: 20.7 cm2 LAV(MOD-bp) Indexed: 29.0 ml/m2 LVLd ap4: 7.4 cm LVLd ap2: 6.6 cm LAV(MOD-sp2): 56.6 ml EDV(MOD-sp4): 58.6 ml EDV(MOD-sp2): 53.2 ml LAV(MOD-sp4): 65.1 ml EDV(sp4-el): 60.8 ml EDV(sp2-el): 55.0 ml LVAs ap4: 14.1 cm2 LVAs ap2: 13.7 cm2 LVLs ap4: 6.3 cm LVLs ap2: 6.5 cm ESV(MOD-sp4): 26.0 ml ESV(MOD-sp2): 23.7 ml ESV(sp4-el): 27.1 ml ESV(sp2-el): 24.3 ml EF(MOD-sp4): 55.6 % EF(MOD-sp2): 55.5 % EF(sp4-el): 55.4 % SV(MOD-sp4): 32.6 ml SV(MOD-sp2): 29.5 ml SV(sp4-el): 33.7 ml SI(MOD-sp4): 14.9 ml/m2 SI(MOD-sp2): 13.5 ml/m2 LA A4 area: 20.0 cm2 LA dimension(2D): 3.7 cm RA A4 area: 14.5 cm2 TAPSE: 2.2 cm Time Measurements MV dec time: 0.18 sec Doppler Measurements & Calculations MV E max slava: 103.0 cm/sec Lat Peak E' Slava: 9.8 cm/sec Med Peak E' Slava: 7.9 cm/sec MV A max slava: 92.2 cm/sec E/E' lat: 10.5 E/E' med: 13.1 MV E/A: 1.1 MV V2 max: 94.5 cm/sec MV P1/2t max slava: 80.9 cm/sec Ao V2 max: 138.1 cm/sec MV max P.6 mmHg MV P1/2t: 67.8 msec Ao max P.6 mmHg MV V2 mean: 53.8 cm/sec MV dec slope: 349.4 cm/sec2 Ao V2 mean: 89.9 cm/sec MV mean P.3 mmHg MVA(P1/2t): 3.2 cm2 Ao mean P.8 mmHg MV V2 VTI: 29.9 cm Ao V2 VTI: 31.3 cm AV (velocity ratio): 0.75 LV V1 max: 98.3 cm/sec PA V2 max: 117.9 cm/sec TR max slava: 207.9 cm/sec LV V1 max P.9 mmHg PA V2 mean: 86.9 cm/sec TR max P.3 mmHg LV V1 mean P.3 mmHg LV V1 mean: 72.3 cm/sec LV V1 VTI: 23.4 cm ECHO/Echo Complete W/ Contrast Interpretation Summary The estimated ejection fraction is 55 %. No evidence for diastolic dysfunction. Ordering Physician: Porfirio Jeff Referring Physician: Sam Null Performed By: Taylor Álvarez, JER, RVT
== END | disposition home or self-care (01) ==
LOC: CVS 13:36
PROVIDERS: PCP Internal Medicine; Referring Provider Nurse Practitioner Family; Visit Provider Nurse Practitioner Family
DX: R06.02 Shortness of breath (principal)
CPT/HCPCS: 93306; Q9957; A4216; C8929

== ENCOUNTER → 2024-09-21 | Outpatient (CLI) | payer MEDICAID, SELFPAY ==
--- NOTE | 2024-09-21 16:54 | CT_ITS ---
PROCEDURE: LOW DOSE CT LUNG SCREENING 09/21/2024 REASON FOR EXAM: QUIT 05/2009 TECHNIQUE: LOW DOSE CT LUNG SCREENING Coronal and Sagittal reconstruction series were provided. One or more dose reduction techniques were used (e.g., Automated exposure control, adjustment of the mA and/or kV according to patient size, use of iterative reconstruction technique). REFERENCE LINK: [facility] Lung-RADS RADIATION DOSE SUMMARY: CTDlvol: 4.0 mGy DLP: 111 mGycm COMPARISON: CT chest on 04/13/2023 FINDINGS: Lymph Nodes:No suspicious lymphadenopathy. Heart and Vasculature:Normal heart size without significant coronary calcification. Lungs and Airways: Central airways are clear. There is a solid nodule in the right upper lobe measuring 2 mm (series 2, image 74), unchanged. Pleura:No effusion Upper Abdomen:Unremarkable Bones:Degenerative changes of the thoracic spine. CT/Low Dose CT Lung Screening IMPRESSION: Lung-RADS Category 2: Benign. Recommend continued annual screening with low-do se CT. Reading Location: [facility]
== END | disposition home or self-care (01) ==
LOC: CT 16:46
PROVIDERS: PCP Internal Medicine; Referring Provider Nurse Practitioner Acute Care; Visit Provider Nurse Practitioner Acute Care
DX: F17.210 Nicotine dependence, cigarettes, uncomplicated (principal)
CPT/HCPCS: 71271

== ENCOUNTER → 2024-11-02 | Outpatient (CLI) | payer MEDICAID, SELFPAY ==
[2024-11-02 14:18] LABS: Hematocrit 40.4 % (37-47); Hemoglobin 13.9 g/dL (12.0-15.0); Immature Granulocytes Count 0.020 X10^3/uL (0.0-0.0); Mean Corp Hgb Conc 34.4 g/dL (32-36); Mean Corpuscular Volume 83.5 fL (81-99); Mean Platelet Vol. 11.0 fl (6.2-12.0); NRBC Flagged by Analyzer 0 % (0-5); Platelet Count 196 K/mm3 (150-450); RBC Distribution Width CV 14.3 % (11.6-14.6); RBC Distribution Width SD 43.5 fl (35.1-43.9); Red Blood Count 4.84 M/mm3 (4.2-5.4); White Blood Count 6.9 K/mm3 (4.4-11.0)
[2024-11-02 15:31] LABS: Anion Gap 13 (5-15); BUN 25 mg/dL (4-19); BUN/Creat Ratio 21.2 RATIO (10-20); Calcium,Total 9.5 mg/dL (7.6-11.0); Carbon Dioxide 25.6 mmol/L (21.0-32.0); Chloride 101 mmol/L (98-108); Glucose 94 mg/dL (70-99); Magnesium 2.3 mg/dL (1.5-2.2); Potassium 3.5 mmol/L (3.3-5.1); Pro- Brain NATRIURETIC PEPTIDE 69 pg/mL (<=900)
== END | disposition home or self-care (01) ==
LOC: LAB 13:35
PROVIDERS: PCP Internal Medicine; Referring Provider Internal Medicine Endocrinology, Diabetes & Metabolism; Visit Provider Nurse Practitioner Family
DX: N18.9 Chronic kidney disease, unspecified (principal); E66.01 Morbid (severe) obesity due to excess calories; R06.00 Dyspnea, unspecified; R07.9 Chest pain, unspecified; R00.2 Palpitations; E03.9 Hypothyroidism, unspecified; Z98.890 Other specified postprocedural states; R94.6 Abnormal results of thyroid function studies
CPT/HCPCS: 36415; 80048; 83036; 83735; 83880; 84439; 84443; 85025

== ENCOUNTER 2025-01-07 09:04 | Emergency (ER) | payer MEDICAID, SELFPAY ==
[2025-01-07 09:05] VITALS: BP 129/74; PULSE 65; RESP 16; TEMP 36.6; O2SAT 100
--- NOTE | 2025-01-07 09:18 | RAD_ITS ---
PROCEDURE: RAD/Chest 1 View (Portable)
--- NOTE | 2025-01-07 09:20 | EX.ED.DYSGE1 ---
HPI History of Present Illness Chief Complaint: Chest Pain Narrative Narrative: 59-year-old female past medical history of VETO, angina, CAD, CKD, hypothyroidism presenting to the emergency department for complaint of chest pain. Patient states that she was getting an outpatient scheduled stress test states that they gave her medicine because she cannot tolerate walking on the treadmill for an extended amount of time and after giving the medicine patient had tightness in her chest that did not resolve. Denying any shortness of breath, fevers, vomiting, abdominal pain. Patient states that she has been having angina with similar onset of chest pain nonradiating unchanged from previous episodes. Last had a stress test in 2018 and catheterization which showed less than 30% stenosis of the LAD and echocardiogram in July with an EF of 55%. States that nitroglycerin does not help for her pain. Denying any history of blood clots, rash, vomiting, wheezing. [facility] Medical History Loss of hearing Restless legs Pancreatitis, reflux Leg cramps Diabetes Thyroid disease Arthritis History of renal disease Back pain Injury of back Migraine headache History of hiatal hernia Gastric reflux BiPAP (biphasic positive airway pressure) dependence History of pain when walking History of edema Cardiology follow-up encounter Bloating Diarrhea History of vaginal delivery Loose, teeth Wears glasses Bruises easily History of ectopic Post-menopausal Ulcer Former smoker History of echocardiogram History of stress test Atrial fibrillation Asthma Home Medications ?Medication ?Instructions ?Recorded ?Last Taken ?Type albuterol sulfate 90 mcg/actuation 2 puff inhalation Q4H PRN Sob &/Or 02/13/19 01/06/25 Rx aerosol inhaler (ProAir HFA) Wheezing #18 grams fluticasone propionate 50 2 spray intranasal DAILY nasal 09/10/19 01/06/25 Rx mcg/actuation nasal dryness #9.9 grams spray,suspension (Allergy Relief (fluticasone)) fluticasone propionate 220 2 puff inhalation BID 03/29/23 01/06/25 History mcg/actuation HFA aerosol inhaler btbxqslr-eiks-flv-iron 18 mg-folic 1 tab PO DAILY 01/03/24 01/06/25 History 240 mcg-vit K 120 mcg-herbal tablet ([employer]) cholecalciferol (vitamin D3) 50 50 mcg PO DAILY 06/19/24 01/06/25 History mcg (2,000 unit) capsule omeprazole 40 mg capsule,delayed 40 mg PO QAM #90 caps 07/31/24 01/06/25 Rx release sucralfate 1 gram tablet 1 g PO TID #60 TABLETS 07/31/24 01/06/25 Rx colestipol 1 gram tablet 4 g (4 x 1 gram) PO DAILY diarrhea 10/22/24 01/06/25 Rx #120 tabs levothyroxine 88 mcg tablet 88 mcg PO QHS #90 tabs 11/05/24 01/06/25 Rx (Unithroid) aspirin 81 mg tablet,delayed 81 mg PO DAILY@0800 #90 tabs 11/18/24 01/06/25 Rx release atorvastatin 20 mg tablet 20 mg PO DAILY #90 tabs 11/18/24 01/06/25 Rx carvedilol 3.125 mg tablet 3.125 mg PO BID heart #180 tabs 11/18/24 01/06/25 Rx nitroglycerin 0.4 mg sublingual 0.4 mg sublingual Q5M PRN 11/18/24 Unknown Rx tablet Cardiac/Chest Pain #25 tabs potassium chloride 10 mEq 10 meq PO DAILY #90 caps 11/18/24 01/06/25 Rx capsule,extended release spironolactone 25 mg tablet 25 mg PO QDAY #90 tabs 11/18/24 01/06/25 Rx torsemide 20 mg tablet 20 mg PO BID #180 tabs 11/18/24 01/06/25 Rx dicyclomine 20 mg tablet 20 mg PO TID for abdominal pain 12/13/24 01/06/25 Rx #90 TABLETS hyoscyamine sulfate 0.125 mg tablet 0.125 mg PO BID-QID for 12/13/24 01/06/25 Rx indigestion #120 TABLETS uivptq-yerkphop-rxavxll 3 cap PO QAC #300 caps 12/13/24 01/06/25 Rx 36,000-114,000-180,000 unit capsule,delay rel (Creon) pantoprazole 40 mg tablet,delayed 40 mg PO BID #180 tabs 01/03/25 01/06/25 Rx release (Protonix) gabapentin 300 mg capsule 300 mg PO TID 01/07/25 01/06/25 History hydrocortisone 2.5 % topical cream 1 applic topical BID 01/07/25 Unknown History tizanidine 4 mg tablet 6 mg PO Q12H PRN muscle spasm 01/07/25 01/06/25 History Allergy/AdvReac Type Severity Reaction Status Date / Time Iodinated Contrast Media (CT) Allergy Unknown rash, arm Verified 01/07/25 09:07 swelling Seasonal Allergies: Uncoded Allergy Unknown Unknown Verified 01/07/25 09:07 Family History Mother Atrial fibrillation CVA (cerebral vascular accident) Diabetes Father Myocardial infarction CAD (coronary artery disease) Sister Pacemaker Surgical History History of cholecystectomy (~07/22/20) Hx of esophagogastroduodenoscopy Hx of colonoscopy History of tooth extraction History of cardiac catheterization History of right and left heart catheterization (01/23/19) Social History Smoking Status: Former smoker quit date: 05/30/09 pack-years: 15 alcohol intake: never substance use type: does not use caffeine: No EXAM Physical Exam Const Vital Signs: 01/07/25 09:05 01/07/25 10:08 01/07/25 11:29 Temperature 98 F Temperature Source Oral Pulse Rate 65 63 Respiratory Rate 16 20 H Respiratory Effort Normal Blood Pressure 129/74 H 102/57 L Blood Pressure Mean 92 72 Pulse Ox 100 96 Oxygen Delivery Method Room Air Room Air 01/07/25 12:39 Temperature Temperature Source Pulse Rate 60 Respiratory Rate 17 Respiratory Effort Blood Pressure 109/91 H Blood Pressure Mean 97 Pulse Ox 100 Oxygen Delivery Method Room Air Chest Wall inspection of chest normal and palpation of chest normal Resp normal respiratory effort and clear to auscultation bilaterally Resp Narrative: no stridor, wheezing or voice changes Auscultation: Negative for wheezes or diminished lung sounds Cardio regular rate, regular rhythm, S1 normal heart sound, S2 normal heart sound and no murmurs GI Inspection: Negative for abdominal distention Auscultation: normoactive bowel sounds Palpation: soft; Negative for tender Back/Spine General Back: Negative for CVA tenderness Extremity Extremity Narrative: 2+ DP and Radial pulses bilaterally General Extremety ED: Negative for edema General Extremity: Negative for edema Skin no rashes or lesions noted, no wounds and skin turgor normal MDM MDM MDM Narrative Medical decision making narrative: 59-year-old female past medical history of VETO, angina, CAD, CKD, hypothyroidism presenting to the emergency department for complaint of chest pain. Patient states that she was getting an outpatient scheduled stress test states that they gave her medicine because she cannot tolerate walking on the treadmill for an extended amount of time and after giving the medicine patient had tightness in her chest that did not resolve. Denying any shortness of breath, fevers, vomiting, abdominal pain. Patient states that she has been having angina with similar onset of chest pain nonradiating unchanged from previous episodes. Last had a stress test in 2018 and catheterization which showed less than 30% stenosis of the LAD and echocardiogram in July with an EF of 55%. States that nitroglycerin does not help for her pain. Denying any history of blood clots, rash, vomiting, wheezing. On my physical exam patient no acute distress resting comfortably. Lungs clear to auscultation bilaterally. Heart sounds normal. No chest wall tenderness. Chest x-ray showing no evidence of acute cardiopulmonary process. Troponin negative x 2 EKG nondiagnostic for ischemia. Low suspicion for ACS. HEART score of 4. Patient had stress test performed prior to coming to the emergency department and showed no evidence of ischemia after I did speak to a vest presser who reviewed it. Low suspicion for PE as patient not tachycardic or shortness of breath or history of. On reexamination patient states that she is feeling okay does have a history of angina. Patient has good follow-up with cardiology and PCP. Recommended follow-up with discharge. Vital stable at this time. Return precautions given History & Record Review Additional record(s) reviewed:: Prior outpatient record ( Last had a stress test in 2018 and catheterization which showed less than 30% stenosis of the LAD and echocardiogram in July with an EF of 55%) Lab Data Attestation: I reviewed the patient's lab results. Lab results narrative: Labs showing no leukocytosis or large electrolyte abnormality. Troponin less than normal and downtrending on 0 to 2-hour. Labs: Laboratory Results - last 24 hr 01/07/25 01/07/25 09:45 11:33 WBC 7.5 RBC 4.81 Hgb 14.0 Hct 41.3 MCV 85.9 MCH 29.1 MCHC 33.9 RDW Std Deviation 44.4 H RDW Coeff of Collin 14.1 Plt Count 203 MPV 11.0 Immature Gran % (Auto) 0.400 Neut % (Auto) 70.7 H Lymph % (Auto) 19.4 [place] % (Auto) 8.0 Eos % (Auto) 1.1 Baso % (Auto) 0.4 Absolute Neuts (auto) 5.3 Absolute Lymphs (auto) 1.45 Nucleated RBC % 0 Sodium 139 Potassium 3.4 Chloride 101 Carbon Dioxide 27.6 Anion Gap 10 BUN 26 H Creatinine 0.94 Estim Creat Clear Calc 75.60 Est GFR (MDRD) Non-Af 69 BUN/Creatinine Ratio 28.0 H Glucose 114 H Calcium 9.4 Troponin T High Sens 9 Troponin T Hi Sens 2 Hr 7 Radiography Chest X-Ray - ED: 1 View Diagnostic Testing: Clinical Impression(s) from Imaging Studies Chest X-Ray 01/07/25 09:18 IMPRESSION: No Acute Findings. Reading Location: [facility] Chest x-ray independently interpreted by myself showing no evidence of acute cardiopulmonary process as compared to previous on 06/29/2024 EKG Initial EKG: Attestation: I personally reviewed and interpreted this EKG as follows: Comments: EKG interpreted by myself showing sinus rhythm, ventricular rate 64, CO 214, QTc 410. Slightly prolonged CO interval likely first-degree AV block, left axis deviation. No signs of ST elevation depression or t wave inversions consistent with ischemia largely unchanged from previous on 10/29/2024 Prior EKG tracings: available for review (10/27/24) Prior: Unchanged Discharge Plan Triage Chief Complaint: Chest Pain ED Provider: Emilee Rosas Dx/Rx/DC Orders Clinical Impression: Chest pain Prescriptions: No Action albuterol sulfate [ProAir HFA] 90 mcg/actuation HFA aerosol inhaler 2 puff INHALATION Q4H PRN (Reason: Sob &/Or Wheezing) Qty: 18 6RF fluticasone propionate 220 mcg/actuation HFA aerosol inhaler 2 puff inhalation BID Patient Comments: inhale 1 puff by mouth and INTO THE LUNGS twice a day shake well ... (REFER TO PRESCRIPTION NOTES). cholecalciferol (vitamin D3) 50 mcg (2,000 unit) capsule 50 mcg PO DAILY tizanidine 4 mg tablet 6 mg PO Q12H PRN (Reason: muscle spasm) gabapentin 300 mg capsule 300 mg PO TID hydrocortisone 2.5 % cream 1 applic topical BID [employer] 18 mg iron- 240 mcg-120 mcg tablet 1 tab PO DAILY fluticasone propionate [Allergy Relief (fluticasone)] 50 mcg/actuation spray,suspension 2 spray INTRANASAL DAILY Qty: 9.9 6RF omeprazole 40 mg capsule,delayed release(DR/EC) 40 mg PO QAM Qty: 90 3RF sucralfate 1 gram tablet 1 g PO TID Qty: 60 3RF colestipol 1 gram tablet 4 g PO DAILY Qty: 120 2RF levothyroxine [Unithroid] 88 mcg tablet 88 mcg PO QHS Qty: 90 3RF aspirin 81 mg tablet,delayed release (DR/EC) 81 mg PO DAILY@0800 Qty: 90 3RF atorvastatin 20 mg tablet 20 mg PO DAILY Qty: 90 3RF carvedilol 3.125 mg tablet 3.125 mg PO BID Qty: 180 3RF nitroglycerin 0.4 mg tablet, sublingual 0.4 mg SL Q5M PRN (Reason: Cardiac/Chest Pain) Qty: 25 3RF potassium chloride 10 mEq capsule, extended release 10 meq PO DAILY Qty: 90 3RF spironolactone 25 mg tablet 25 mg PO QDAY Qty: 90 3RF torsemide 20 mg tablet 20 mg PO BID Qty: 180 3RF dicyclomine 20 mg tablet 20 mg PO TID Qty: 90 2RF Creon 36,000-114,000- 180,000 unit capsule,delayed release(DR/EC) 3 cap PO QAC Qty: 300 3RF Rx Instructions: administer 2-3 with meals and 1-2 snacks. Max of ten per day hyoscyamine sulfate 0.125 mg tablet 0.125 mg PO BID-QID Qty: 120 2RF pantoprazole [Protonix] 40 mg tablet,delayed release (DR/EC) 40 mg PO BID Qty: 180 3RF Patient Comments: daw2 pt states generic doesn't work like brand does Primary Care Provider: Sam Null Referrals: Sam Null MD [Primary Care Provider, Internal Medicine] Activity Restrictions/Additional Instructions: Please follow-up with your vest presser and primary care provider within the next week regarding your visit today. Return to the emergency room if develop any worsening symptoms. Your stress test was reviewed largely unremarkable and workup here negative. Print Language: Portuguese Disposition Disposition: Home, Self Care Discharge Date/Time: 01/07/25 13:42
[2025-01-07 09:55] LABS: Hematocrit 41.3 % (37-47); Hemoglobin 14.0 g/dL (12.0-15.0); Immature Granulocytes Count 0.030 X10^3/uL (0.0-0.0); Mean Corp Hgb Conc 33.9 g/dL (32-36); Mean Corpuscular Volume 85.9 fL (81-99); Mean Platelet Vol. 11.0 fl (6.2-12.0); NRBC Flagged by Analyzer 0 % (0-5); Platelet Count 203 K/mm3 (150-450); RBC Distribution Width CV 14.1 % (11.6-14.6); RBC Distribution Width SD 44.4 fl (35.1-43.9); Red Blood Count 4.81 M/mm3 (4.2-5.4); White Blood Count 7.5 K/mm3 (4.4-11.0)
[2025-01-07 10:17] VITALS: BMI 37.6
[2025-01-07 10:26] LABS: Anion Gap 10 (5-15); BUN 26 mg/dL (4-19); BUN/Creat Ratio 28.0 RATIO (10-20); Calcium,Total 9.4 mg/dL (7.6-11.0); Carbon Dioxide 27.6 mmol/L (21.0-32.0); Chloride 101 mmol/L (98-108); Estimated Creatinine Clearance 75.60 ml/min (50-250); Glucose 114 mg/dL (70-99); Potassium 3.4 mmol/L (3.3-5.1); Troponin T High Sensitivity 9 ng/L (<=14)
[2025-01-07 11:29] VITALS: BP 102/57; PULSE 63; RESP 20; O2SAT 96
[2025-01-07 12:00] LABS: Troponin T High Sens 2 HR 7 ng/L (<=14)
[2025-01-07 12:39] VITALS: BP 109/91; PULSE 60; RESP 17; O2SAT 100
== END 2025-01-07 13:42 | disposition home or self-care (01) ==
PROVIDERS: Emergency Provider Student in an Organized Health Care Education/Training Program; PCP Internal Medicine; Visit Provider Student in an Organized Health Care Education/Training Program
DX: R07.89 Other chest pain (principal); E66.01 Morbid (severe) obesity due to excess calories; E11.22 Type 2 diabetes mellitus with diabetic chronic kidney disease; N18.9 Chronic kidney disease, unspecified; I25.10 Atherosclerotic heart disease of native coronary artery without angina pectoris; G47.33 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 apnea (adult) (pediatric); R06.00 Dyspnea, unspecified; R00.2 Palpitations; E03.9 Hypothyroidism, unspecified; Z79.82 Long term (current) use of aspirin; Z79.890 Hormone replacement therapy; Z79.899 Other long term (current) drug therapy; Z98.890 Other specified postprocedural states; Z87.891 Personal history of nicotine dependence
CPT/HCPCS: 71045; 78452; 80048; 84484; 85025; 93005; 93017; 96374; 96375; 99284; A9500; A4216; J2405; J2785

== ENCOUNTER → 2025-01-07 | Outpatient (CLI) | payer MEDICAID, SELFPAY ==
--- OUTSIDE RECORDS SUMMARY | 2025-01-07 06:19 | XMS RPT_ITS | CCD ---
Author Organization [facility] Care Team Providers Care Pharmacist Manager Name Role Phone SAM NULL MD, Victor H Primary Care Provider Dr. Sam Null Primary Care Provider Dr. Sam Null Referring Provider Randee SHIPFITTER APPRENTICE, SHIPFITTER APPRENTICE-C Porfirio Benitez Attending Provider Jon SUAREZ, SHIPFITTER APPRENTICE-C Milagros Howard Attending Provider Dr. Carlos Deshpande Attending Provider Sam Null MD Primary Care Provider Sam Null MD Primary Care Provider Dr. Sam Null Primary Care Provider Dr. Sam Null Referring Provider Dr. Manoj Escalante Attending Provider Dr. Chapincito Lilly Attending Provider Jon SUAREZ, DANIELA-C Milagros Howard Attending Provider Dr. Sam Null Primary Care Provider Dr. Sam Null Referring Provider Randee SHIPFITTER APPRENTICE, SHIPFITTER APPRENTICE-C Porfirio Benitez Attending Provider Dr. Sam Null Primary Care Provider Dr. Sam Null Referring Provider Roof SHIPFITTER APPRENTICE, SHIPFITTER APPRENTICE-C Porfirio H Attending Provider Dr. Grant Morgan Attending Provider Roof SHIPFITTER APPRENTICE, SHIPFITTER APPRENTICE-C Porfirio H Other Provider Dr. Chapincito Lilly Attending Provider Dr. Sam Null Primary Care Provider Dr. Sam Null Referring Provider Roof SHIPFITTER APPRENTICE, SHIPFITTER APPRENTICE-C Porfirio H Attending Provider Roof SHIPFITTER APPRENTICE, SHIPFITTER APPRENTICE-C Porfirio H Referring Provider Anderson SHIPFITTER APPRENTICE, SHIPFITTER APPRENTICE-C Brittany Attending Provider Dr. Kemar Byrnes Attending Provider Dr. Sam Null Primary Care Provider Dr. Sam Null Referring Provider Roof SHIPFITTER APPRENTICE, SHIPFITTER APPRENTICE-C Porfirio H Attending Provider Dr. Grant Morgan Attending Provider Roof SHIPFITTER APPRENTICE, SHIPFITTER APPRENTICE-C Porfirio H Referring Provider Roof SHIPFITTER APPRENTICE, SHIPFITTER APPRENTICE-C Porfirio H Other Provider Dr. Chapincito Lilly Attending Provider Anderson SHIPFITTER APPRENTICE, SHIPFITTER APPRENTICE-C Brittany Attending Provider Dr. Kemar Byrnes Attending Provider Dr. Sam Null Primary Care Provider Dr. Sam Null Referring Provider Roof SHIPFITTER APPRENTICE, SHIPFITTER APPRENTICE-C Porfirio Benitez Attending Provider Sam Null MD Primary Care Provider Kemar Byrnes DO Unavailable Dr. Sam Null Primary Care Provider Dr. Sam Null Referring Provider Anderson SHIPFITTER APPRENTICE, SHIPFITTER APPRENTICE-C Brittany Referring Provider Justin SHIPFITTER APPRENTICE, SHIPFITTER APPRENTICE-C Brittany Other Provider Dr. Kemar Byrnes Other Provider Dr. Alfredo Reyes Attending Provider Vinay RESEARCH INSTRUMENTATION TECHNICIAN.LAST PATTERN GRADER, Verito M Unavailable Ethan Betancur MD Unavailable Chaka CHILDERS, Dr. Vargas Primary Care Provider Chaka CHILDERS, Dr. Vargas Referring Provider Dr. Kemar Byrnes DO Attending Provider Justin SHIPFITTER APPRENTICE-C, Brittany Attending Provider Justin SHIPFITTER APPRENTICE-C, Brittany Referring Provider [facility] SHIPFITTER APPRENTICE-C, Porfirio Benitez Other Provider Reginald Erickson RN Attending Provider Unavailabl e Anderson SHIPFITTER APPRENTICE-C, Brittany Other Provider Dr. Alfredo Reyes DO Attending Provider Chaka CHILDERS, Dr. Vargas Primary Care Provider Chaka CHILDERS, Dr. Vargas Referring Provider Roof SHIPFITTER APPRENTICE-C, Porfirio Benitez Attending Provider Roof SHIPFITTER APPRENTICE-C, Porfirio Benitez Referring Provider Philomena CHIDLERS, Dr. Wiseman Attending Provider Dr. Grant Morgan MD Attending Provider Dr. Kemar Byrnes DO Attending Provider Chaka CHILDERS, Dr. Vargas Primary Care Provider Justin SHIPFITTER APPRENTICE-C, Brittany Attending Provider Chaka CHILDERS, Dr. Vargas Referring Provider Chaka CHILDERS, Dr. Vargas Primary Care Provider Justin SHIPFITTER APPRENTICE-C, Brittany Attending Provider Justin SHIPFITTER APPRENTICE-C, Brittany Referring Provider Dr. Sam Null MD Primary Care Provider Justin SHIPFITTER APPRENTICE-C, Brittany Attending Provider Justin SHIPFITTER APPRENTICE-C, Brittany Referring Provider Dr. Grant Morgan MD Referring Provider [phone] NULL, LUCRECIA Primary Care Unavailable BRITNI LOCKWOOD Referring Unavailable NULL, LUCRECIA Primary Care Unavailable SOFÍA MULTANI Attending Unavailable NULL, LUCRECIA Primary Care Unavailable JOELLEN CROWDER Attending Unavailable NULL, LUCRECIA Primary Care Unavailable BURAK SCHRADER Attending Unavailable NULL, LUCRECIA Primary Care Unavailable LYALL-MAURICELISBET CAMPOS Attending Unavailable NULL, LUCRECIA Primary Care Unavailable PAMELA LOPEZ Attending Unavailable YUNG-LISBET RICHARDS Referring Unavailable NULL, LUCRECIA Primary Care Unavailable BURAK SCHRADER Attending Unavailable NULL, LUCRECIA Primary Care Unavailable LYALL-LISBET RICHARDS Attending Unavailable NULL, LUCRECIA Primary Care Unavailable BURAK SCHRADER Attending Unavailable NULL, LUCRECIA Primary Care Unavailable PAMELA LOPEZ Attending Unavailable YUNG-MAURICELISBET CAMPOS Referring Unavailable NULL, LUCRECIA Primary Care Unavailable BURAK SCHRADER Attending Unavailable NULL, LUCRECIA Primary Care Unavailable YUNG-LISBET RICHARDS Referring Unavailable NULL, LUCRECIA Primary Care Unavailable SELF Referring Unavailable GUNNER SUTTON Attending Unavailable BURAK SCHRADER Attending Unavailable NULL, LUCRECIA Primary Care Unavailable NULL, LUCRECIA Primary Care Unavailable RICHARD WINN Attending Unavailable NULL, LUCRECIA Primary Care Unavailable GUNNER SUTTON Attending Unavailable NULL, LUCRECIA Primary Care Unavailable MARII HERZOG Attending Unavailable BRITNI LOCKWOOD Referring Unavailable NULL, LUCRECIA Primary Care Unavailable NULL, LUCRECIA Primary Care Unavailable GERI FABIAN Attending Unavailable NULL, LUCRECIA Primary Care Unavailable GERI FABIAN Referring Unavailable BRITNI LOCKWOOD Attending Unavailable NULL, LUCRECIA Primary Care Unavailable NULL, LUCRECIA Primary Care Unavailable SOFÍA MULTANI Referring Unavailable BRITNI LOCKWOOD Referring Unavailable NULL, LUCRECIA Primary Care Unavailable NULL, LUCRECIA Primary Care Unavailable GERI FABIAN Referring Unavailable NULL, LUCRECIA Primary Care Unavailable NULL, LUCRECIA Attending Unavailable NULL, LUCRECIA Primary Care Unavailable NULL, LUCRECIA Attending Unavailable NULL, LUCRECIA Referring Unavailable NULL, LUCRECIA Primary Care Unavailable BRITNI LOCKWOOD Referring Unavailable BRITNI LOCKWOOD Attending Unavailable NULL, LUCRECIA Primary Care Unavailable NULL, LUCRECIA Primary Care Unavailable NULL, LUCRECIA Attending Unavailable NULL, LUCRECIA Primary Care Unavailable NULL, LUCRECIA Referring Unavailable NULL, LUCRECIA Primary Care Unavailable GUNNER SUTTON Referring Unavailable BRITNI LOCKWOOD Attending Unavailable NULL, LUCRECIA Primary Care Unavailable Null, Sam Primary Care Unavailable Anderson SHIPFITTER APPRENTICE, Brittany Attending Unavailable Anderson SHIPFITTER APPRENTICE, Brittany Referring Unavailable Roof SHIPFITTER APPRENTICE, Porfirio Benitez Referring Unavailable Roof SHIPFITTER APPRENTICE, Porfiroi Benitez Attending Unavailable Null, Sam Primary Care Unavailable Roof SHIPFITTER APPRENTICE, Porfirio Benitez Consulting Unavailable Anderson SHIPFITTER APPRENTICE, Brittany Attending Unavailable Anderson SHIPFITTER APPRENTICE, Brittany Referring Unavailable Null, Sam Primary Care Unavailable Roof SHIPFITTER APPRENTICE, Porfirio Benitez Attending Unavailable Null, Sam Primary Care Unavailable Grant Morgan Referring Unavailable Null, Sam Primary Care Unavailable Ethan Reynoso Referring Unavailable Ethan Reynoso Attending Unavailable Anderson SHIPFITTER APPRENTICE, Brittany Attending Unavailable Anderson SHIPFITTER APPRENTICE, Brittany Referring Unavailable Null, Sam Primary Care Unavailable Anderson SHIPFITTER APPRENTICE, Brittany Attending Unavailable Anderson SHIPFITTER APPRENTICE, Brittany Referring Unavailable Null, Sam Primary Care Unavailable Roof SHIPFITTER APPRENTICE, Porfirio Benitez Referring Unavailable Roof SHIPFITTER APPRENTICE, Porfirio Benitez Attending Unavailable Null, Sam Primary Care Unavailable Friend, Kemar Referring Unavailable Friend, Kemar Attending Unavailable Chaka, Sam Primary Care Unavailable Friend, Kemar Attending Unavailable Null, Sam Referring Unavailable Null, Sam Primary Care Unavailable Friend, Kemar Attending Unavailable Null, Sam Primary Care Unavailable Null, Sam Primary Care Unavailable Null, Sam Referring Unavailable Anderson SHIPFITTER APPRENTICE, Brittany Attending Unavailable Kemar Byrnes Attending Unavailable Null, Sam Primary Care Unavailable Null, Sam Referring Unavailable Null, Sam Primary Care Unavailable Null, Sam Referring Unavailable Grant Morgan Attending Unavailable Kemar Byrnes Attending Unavailable Null, Sam Primary Care Unavailable Null, Sam Referring Unavailable Bowen Quach Attending Unavailabl e Null, Sam Primary Care Unavailable Reginald Erickson Attending Unavailable Null, Sam Primary Care Unavailable Alfredo Reyes Attending Unavailable Randee SHIPFITTER APPRENTICE, Porfirio Benitez Attending Unavailable Null, Sam Referring Unavailable Null, Sam Primary Care Unavailable Alfredo Reyes Attending Unavailable Randee SHIPFITTER APPRENTICE, Porfirio Benitez Consulting Unavailable Justin SHIPFITTER APPRENTICE, Brittany Referring Unavailable Null, Sam Primary Care Unavailable Justin SHIPFITTER APPRENTICE, Brittany Consulting Unavailable Kemar Byrnes Attending Unavailable Null, Sam Primary Care Unavailable Null, Sam Referring Unavailable Grant Morgan Attending Unavailable Null, Sam Primary Care Unavailable Null, Sam Referring Unavailable Null, Sam Primary Care Unavailable Null, Sam Referring Unavailable Grant Morgan Attending Unavailable Kemar Byrnes Attending Unavailable Null, Sam Referring Unavailable Null, Sam Primary Care Unavailable Null, Sam Primary Care Unavailable Justin SHIPFITTER APPRENTICE, Brittany Attending Unavailable Justin SHIPFITTER APPRENTICE, Brittany Referring Unavailable Allergies Allergy Classification Reported Allergen(s) Allergy Type Date of Onset Reaction(s) Facility Iodine (and Iodine containting drugs) (1 source) Iodine Drug Allergy 04-14-19 24 Swelling [facility] Work Phone: (20 sources) Seasonal allergy; 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: [SEASONAL ALLERGIES] Propensity to adverse reactions 04-08-19 22 Intolerance [facility] Work Phone: (20 sources) Iodine; 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: [IODINE] Drug Allergy 04-14-19 24 Swelling [facility] Work Phone: (7 sources) Triiodobenzoic Acids Allergy to substance 06-20-19 25 rash, arm swelling [facility] (3 sources) Seasonal Allergies: Uncoded; 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: [Seasonal Allergies: Uncoded] Allergy to substance 10-30-19 25 Unknown [facility] (1 source) Iodinated Contrast Media Drug allergy (disorder) 01-02-20 25 [facility] Repository Medications Current Medications Medication Drug Class(es) Dates Sig (Normalized) Sig (Original) acetaminophen 325 mg / HYDROcodone bitartrate 5 mg oral tablet (20 sources) Opioid Agonist Start: 10-26-2024 End: 10-29-2024 Hydrocodone-Acetam inophen 5-325 mg tablet Active 1 {tbl} PO THREE TIMES A DAY as needed 0 October 29, 2024 4:11pm Start: 07-22-2020 End: 09-23-2021 Hydrocodone-Acetaminophen 5- 325 mg Tablet Discontinued 1 - 2 {tbl} PO EVERY 4 HOURS NEEDED as needed for Pain Score 1-10/10 10 2 0 July 22, 2020 September 23, 2021 1:32pm Cholelithiasis with chronic cholecystitis Calculus of gallbladder with chronic cholecystitis without obstruction Start: 07-22-2020 End: 09-23-2021 take 1 tablet by mouth every four hours as needed Hydrocodone-Acetaminophen Discontinued 1 - 2 TABLET PO EVERY 4 HOURS NEEDED 10 2 July 22, 2020 September 23, 2021 1:32pm Start: 04-19-2018 End: 04-22-2018 Hydrocodone-Acetaminophen 1 TABLET tablet Discontinued 1 {tbl} PO EVERY 6 HOURS NEEDED as needed for Pain 10 3 0 April 19, 2018 1:00am April 21, 2018 1:00am April 22, 2018 1:08am Abdominal pain Unspecified abdominal pain Start: 04-19-2018 End: 04-22-2018 take 1 tablet by mouth every six hours as needed Hydrocodone-Acetaminophen Discontinued 1 TABLET PO EVERY 6 HOURS NEEDED 10 3 April 19, 2018 1:00am April 22, 2018 1:08am [id number] actuat albuterol 0.09 mg/actuat metered dose inhaler (20 sources) beta2-Adrenergic Agonist Start: 10-17-2024 End: 11-16-2024 take 2 puff(s) by inhalation every four hours as needed albuterol HFA (PROAIR HFA) 90 mcg/actuation inhaler Indications: Mild intermittent asthma without complication (HCC) Inhale 2 puffs as instructed every 4 hours as needed. 1 each 5 10/17/2024 11/16/2024 Active Start: 03-21-2023 End: 05-16-2024 take 2 puff(s) by inhalation every four hours as needed albuterol HFA (PROAIR HFA) 90 mcg/actuation inhaler Indications: Mild intermittent asthma without complication (HCC) Inhale 2 Puffs as instructed every 4 hours as needed. 1 Each 5 04/16/2024 Active Start: 10-08-2021 End: 12-27-2022 take 2 [...] Q4H 0 02/13/2019 12/27/2022 Discontinued (Duplicate Entry) Start: 12-13-2018 End: 02-13-2019 Albuterol Sulfate (Proair Hf a) 90 mcg/actuation HFA aerosol inhaler Active 2 NMA INHALATION Q4H as needed for Sob &/Or Wheezing 18 February 13, 2019 4:09pm Unspecified asthma, uncomplicated Start: 12-13-2018 End: 02-13-2019 take 1 puff(s) by inhalation every four hours Albuterol Sulfate (Proair Hfa) 90 mcg/actuation HFA aerosol inhaler Active 2 PUFF INHALATION Q4H February 13, 2019 4:09pm Comment on above: Q4H Inhale 2 Puffs as in structed every 4 hours as needed. amylase [id number] unt / lipase [id number] unt / protease [id number] unt delayed release oral capsule (20 sources) Start: 10-07-2023 CREON 36,000-114,000- 180,000 unit delayed release capsule 1 capsule with meals and at bedtime. 2-3 capsules with meals and 1-2 with snacks 10/07/2023 Active Start: 10-07-2023 End: 07-31-2024 take 10 capsules by mouth once daily at mealtime Cgrgue-Vjtcsjqw-Qneepyu (Creon) 36,000-114,000- 180,000 unit capsule,delayed release(DR/EC) Discontinued 3 NMA PO before meals 300 3 June 05, 2024 4:59pm July 31, 2024 1:53pm administer 2-3 with meals and 1-2 snacks. Max of ten per day aspirin 81 mg delayed release oral tablet (20 sources) Platelet Aggregation Inhibitor, Nonsteroidal Anti-inflammatory Drug Start: 01-23-2019 End: 07-31-2024 take 1 tablet by mouth once daily aspirin, enteric coated (ASPIRIN, ENTERIC COATED) 81 mg EC tablet Take 1 tablet by mouth once daily. 0 01/23/2019 Active Comment on above: Take 1 tablet by destini once daily. atorvastatin 20 mg oral tablet (20 sources) HMG-CoA Reductase Inhibitor Start: 01-23-2019 End: 07-31-2024 take 1 tablet by mouth once daily atorvastatin (LIPITOR) 20 mg tablet Take 20 mg by mouth once daily. 0 01/23/2019 Active Comment on above: Take 20 mg by mouth once daily. carvedilol 3.125 mg oral tablet (20 sources) alpha-Adrenergic Catarina, beta-Adrenergic Catarina Start: 01-23-2019 End: 04-16-2024 carvedilol (COREG) 3.125 mg tablet Indications: Atypical chest pain Take 1 tablet by mouth two times a day. [facility]. 04/16/2024 Active Start: 01-23-2019 End: 07-31-2024 take 1 tablet by mouth twice daily Carvedilol 3.125 mg tablet Discontinued 3.125 mg PO TWICE A DAY 180 3 October 08, 2022 4:44pm August 25, 2023 4:12pm heart Comment on above: Take 1 tablet by destini th once daily. cholecalciferol 0.05 mg oral capsule (20 sources) Vitamin D Start: 11-22-2024 take 1 capsule by mouth once daily VITAMIN D-3 50 mcg (2,000 unit) cap TAKE 1 CAPSULE BY MOUTH ONCE DAILY 90 capsule 11/22/2024 Active Start: 06-19-2024 take 1 capsule by mo [facility] once daily Cholecalciferol (Vitamin D3) 50 mcg (2,000 unit) capsule Active 50 ug PO DAILY June 19, 2024 12:00am Start: 12-30-2023 take 1 tablet by destini th once daily cholecalciferol (VITAMIN D3) 50 mcg (2,000 unit) tablet Take 1 tablet by mouth once daily. 90 tablet 3 12/30/2023 Active Start: 11-04-2023 End: 06-19-2024 take 1 capsule by mouth every week Cholecalciferol (Vitamin D3) 1,250 mcg (50,000 unit) capsule Discontinued 1250 ug PO EVERY WEEK November 04, 2023 12:00am June 19, 2024 3:03pm Start: 10-10-2023 End: 12-30-2023 take [id number] [IU] by mouth once daily cholecalciferol, Vitamin D3, (VITAMIN D3) 1,250 mcg (50,000 unit) cap capsule Indications: vitamin D deficiency Take 1 capsule by mouth one time a week for 12 doses. Transition to 4,000-5,000 units of Vitamin D [id number] after completing 12 weeks of high-dose therapy. 12 capsule 10/10/2023 12/30/2023 Discontinued (Dosage adjustment) CPAP (20 sources) Start: 04-16-2024 CPAP Indicatio ns: VETO on CPAP BiPAP 9/5 cm per [facility]. 04/16/2024 Active Start: 08-20-2015 End: 04-16-2024 CPAP AutoPAP 5-15 CM H2O wit h flex/EPR option, ramp, mask of choice, HUMIDITY. LIFETIME SUPPLIES. DME: [facility] 1 Device 0 08/20/2015 04/16/2024 Discontinued Start: 08-20-2015 CPAP AutoPAP 5 -15 CM H2O with flex/EPR option, ramp, mask of choice, HUMIDITY. LIFETIME SUPPLIES. DME: [facility] 1 Device 0 08/20/2015 Active Comment on above: AutoPAP 5-15 CM H2O with flex/EPR option, ramp, mask of choice, HUMIDITY. LIFETIME SUPPLIES. DME: [facility] dicyclomine hydrochloride 20 mg oral tablet (20 sources) Anticholinergic Start: 04-04-19 End: 10-30-19 take 1 tablet by mouth three times daily as needed dicyclomine (BENTYL) 20 mg tablet Indications: Irritable bowel syndrome with diarrhea Take 1 tablet by mouth three times a day as needed (per [facility]). 04/16/2024 Active Start: 12-13-2018 End: 04-16-2024 dicyclomine (BENTYL) 10 mg c apsule 10 mg. 12/13/2018 04/16/2024 Discontinued (Dosage adjustment) Comment on above: 10 mg. fluticasone propionate 0.05 mg/actuat metered dose nasal spray (20 sources) Corticosteroid Start: 10-17-2024 take 1 puff(s) by mouth twice daily fluticasone (FLOVENT HFA) 220 mcg/actuation inhaler Indications: Mild intermittent asthma without complication (HCC) Inhale 1 puff as instructed two times a day. Shake well before use. Rinse mouth after use. 1 each 5 10/17/2024 Active Start: 10-17-2024 take 2 spray(s) nasa l route once daily at bedtime fluticasone (FLONASE) 50 mcg/actuation nasal spray Indications: Mild intermittent asthma without complication (HCC) instill 2 sprays into each nostril once daily at bedtime 1 each 5 10/17/2024 Active Start: 03-29-2023 take 1 puff(s) by in halation twice daily Fluticasone Propionate Active 2 PUFF INHALATION TWICE A DAY March 29, 2023 3:52pm Start: 03-29-2023 take 1 puff(s) by in halation twice daily Fluticasone Propionate Active 2 PUFF INHALATION TWICE A DAY March 29, 2023 2:52pm Start: 02-25-2023 End: 03-29-2023 take 1 puff(s) by inhalation twice daily Fluticasone Propionate Discontinued 1 PUFF INHALATION TWICE A DAY February 25, 2023 1:00am March 29, 2023 3:57pm Start: 02-25-2023 End: 03-29-2023 take 1 puff(s) by inhalation twice daily Fluticasone Propionate Discontinued 1 PUFF INHALATION TWICE A DAY February 25, 2023 12:00am March 29, 2023 2:57pm Start: 02-25-2023 take 1 puff(s) by in halation twice daily Fluticasone Propionate Active 1 PUFF INHALATION TWICE A DAY February 25, 2023 12:00am Start: 01-10-2023 End: 04-16-2024 take 2 spray(s) nasal route once daily at bedtime fluticasone (FLONASE) 50 mcg/actuation nasal spray Indications: Mild intermittent asthma without complication (HCC) instill 2 sprays into each nostril once daily at bedtime 1 Each 5 04/16/2024 Active Start: 12-28-2022 End: 04-16-2024 take 1 puff(s) by mouth twice daily fluticasone (FLOVENT HFA) 220 mcg/actuation inhaler Indications: Mild intermittent asthma without complication (HCC) Inhale 1 Puff as instructed two times a day. Shake well before use. Rinse mouth after use. 1 Each 5 04/16/2024 Active Start: 10-11-2022 End: 12-17-2022 take 2 [...] after use. 1 Inhaler 5 04/08/2021 Active Start: 02-13-2019 End: 02-25-2023 Fluticasone Propionate (Flov ent Hfa) 110 mcg/actuation HFA aerosol inhaler Discontinued 2 NMA INHALATION TWICE A DAY 12 6 September 17, 2019 8:17am February 25, 2023 3:05pm Unspecified asthma, uncomplicated Start: 02-13-2019 End: 02-25-2023 take 1 puff(s) by inhalation twice daily Fluticasone Propionate (Flovent Hfa) 110 mcg/actuation HFA aerosol inhaler Discontinued 2 PUFF INHALATION TWICE A DAY 12 September 17, 2019 8:17am February 25, 2023 3:05pm Start: 12-13-2018 End: 09-10-2019 Fluticasone Propionate (Walt rgy Relief (Fluticasone)) 50 mcg/actuation spray,suspension Discontinued 2 NMA INTRANASAL DAILY 9.9 6 February 13, 2019 4:37pm September 10, 2019 8:57am Unspecified asthma, uncomplicated nasal dryness Start: 12-13-2018 End: 09-10-2019 Fluticasone Propionate (Walt rgy Relief (Fluticasone)) 50 mcg/actuation spray,suspension Discontinued 2 SPRAY INTRANASAL DAILY 9.9 February 13, 2019 4:37pm September 10, 2019 8:57am Comment on above: Inhale 2 Puffs as in structed twice daily. Shake well before use. Rinse mouth after use. Use 2 Sprays in each nostril daily at bedtime. Inhale 1 Puff as ins tructed two times a day. Shake well before use. Rinse mouth after use. instill 2 sprays int o each nostril once daily at bedtime Fluticasone Propionate 220 mcg/actuation HFA aerosol inhaler (14 sources) Start: 03-29-2023 Fluticasone Propionate 220 mcg/actuation HFA aerosol inhaler Active 2 NMA INHALATION TWICE A DAY March 29, 2023 3:52pm Start: 02-25-2023 End: 03-29-2023 Fluticasone Propionate 220 m cg/actuation HFA aerosol inhaler Discontinued 1 NMA INHALATION TWICE A DAY February 25, 2023 1:00am March 29, 2023 3:57pm hydrocortisone 25 mg/ml topical cream (20 sources) Corticosteroid Start: 12-13-2018 End: 04-16-2025 hydrocortisone 2.5 % cream Indications: Eczema, unspecified type Apply 1 application to affected area two times a day as needed (Apply sparingly to rash of hands, arms, legs for 1 week.). 28 g 5 04/16/2024 04/16/2025 Active Start: 12-13-2018 Hydrocortisone 2.5 % cream Active 1 NMA TOPICAL TWICE A DAY December 13, 2018 12:00am skin Comment on above: Apply 1 application to affected area twice daily as needed (Apply sparingly to rash of hands, arms, legs for 1 week.). Apply 1 application to affected area two times a day as needed (Apply sparingly to rash of hands, arms, legs for 1 week.). hyoscyamine sulfate 0.125 mg oral tablet (20 sources) Start: take 1 tablet by mouth every six hours as needed hyoscyamine (LEVSIN) 0.125 mg tablet Take 1 tablet by mouth every 6 hours as needed. 10/17/2024 Active Start: 10-07-2023 take 1 tablet by destini th every six hours as needed hyoscyamine (LEVSIN) 0.125 mg tablet Take 0.125 mg by mouth every 6 hours as needed. 1-2 tablets four times daily as needed 10/07/2023 Active Start: 10-07-2023 End: 10-29-2024 Hyoscyamine Sulfate 0.125 mg tablet Discontinued 0.125 mg PO 2 to 4 times per day as needed for for indigestion 120 1 October 22, 2024 5:10pm October 29, 2024 4:14pm ketotifen 0.25 mg/ml ophthalmic solution (20 sources) Histamine-1 Receptor Inhibitor Start: 02-25-2023 take 0.025 drop(s) into the eye(s) twice daily as needed Ketotifen Fumarate (Eye Itch Relief) 0.025 % (0.035 %) drops Active 1 NMA OPHTHALMIC TWICE A DAY as needed for allergy symptoms February 25, 2023 1:00am Start: 02-25-2023 take 0.025 drop(s) i nto the eye(s) twice daily Ketotifen Fumarate (Eye Itch Relief) 0.025 % (0.035 %) drops Active 1 DRP OPHTHALMIC TWICE A DAY February 25, 2023 1:00am Start: 01-11-2023 take 1 drop(s) into the eye(s) twice daily EYE ITCH RELIEF 0.025 % (0.035 %) ophthalmic solution instill 1 drop into both eyes twice a day if needed 01/11/2023 Active Comment on above: instill 1 drop into both eyes twice a day if needed levothyroxine sodium 0.088 mg oral tablet (20 sources) l-Thyroxine Start: End: take 1 tablet by mouth once daily levothyroxine (SYNTHROID) 88 mcg tablet Indications: Acquired hypothyroidism Take 1 tablet by mouth once daily. [facility]. 10/17/2024 Active Start: 04-28-2023 End: 08-13-2024 take 1 tablet by mouth once daily Levothyroxine 100 mcg tablet Discontinued 100 ug PO DAILY February 21, 2024 8:45am August 13, 2024 3:20pm Start: 03-04-2023 End: 07-17-2023 take 1 tablet by mouth once daily Levothyroxine 112 mcg tablet Discontinued 112 ug PO DAILY March 04, 2023 1:00am April 28, 2023 11:58am Start: 11-29-2022 End: 03-04-2023 take 1 tablet by mouth once daily Levothyroxine 25 mcg tablet Discontinued 25 ug PO DAILY February 25, 2023 1:00am March 04, 2023 4:03pm Comment on above: Take 1 tablet by [facility] once daily. Take on empty stomach. For thyroid. Take 1 tablet by [facility] once daily. Per endocrinology (Dr. Grant Morgan) [id number] rb [id number] ([employer]) 18 mg iron- 240 mcg-120 mcg tablet (7 sources) Start: 01-03-2024 [id number] rb 293 ([employer]) 18 mg iron- 240 mcg-120 mcg tablet Active 1 {tbl} PO DAILY January 03, 2024 12:00am nitroglycerin 0.4 mg sublingual tablet (20 sources) Nitrate Vasodilator Start: 01-23-2019 nitroglycerin sublingual (NITROQUICK) 0.4 mg SL tablet 0.4 mg. 01/23/2019 Active Start: 01-23-2019 End: 07-31-2024 Nitroglycerin 0.4 mg tablet, sublingual Discontinued 0.4 mg SL Q5M as needed for Cardiac/Chest Pain 05 06August 25, 2023 4:10pm July 31, 2024 2:13pm Start: 01-23-2019 Nitroglycerin Active 0.4 MG SL Q5M January 23, 2019 1:00am Comment on above: 0.4 mg. olopatadine 1 mg/ml ophthalmic solution (20 sources) Histamine-1 Receptor Inhibitor Start: 02-25-2023 Olopatadine 0.1 % drops Active 1 NMA OPHTHALMIC TWICE A DAY as needed for itching February 25, 2023 1:00am Start: 01-26-2023 olopatadine (P ATANOL) 0.1 % ophthalmic solution 01/26/2023 Active omeprazole 40 mg delayed release oral capsule (20 sources) Proton Pump Inhibitor Start: 11-25-2022 take 1 mg by mouth once daily Omeprazole Active MG PO DAILY November 25, 2022 12:00am Start: 11-17-2022 End: 07-31-2024 take 1 capsule by mouth once daily omeprazole (PRILOSEC) 40 mg capsule Take 1 capsule by mouth once daily. 10/14/2023 Active Start: 02-16-2021 End: 10-11-2022 take 1 capsule by mouth once daily at bedtime Omeprazole 40 mg capsule,delayed release(DR/EC) Discontinued 40 mg PO DAILY 90 3 October 08, 2022 4:45pm October 11, 2022 4:27pm take omeprazole in am and pantoprazole at HS Start: 02-23-2019 End: 09-23-2020 take 1 capsule by mouth once daily Omeprazole 20 mg capsule,delayed release(DR/EC) Discontinued 20 mg PO DAILY 90 3 February 16, 2020 10:08am July 14, 2020 4:45pm Comment on above: Take 1 capsule by [facility] once daily. pantoprazole 40 mg delayed release oral tablet (20 sources) Proton Pump Inhibitor Start: End: take 1 tablet by mouth once daily before breakfast pantoprazole DR (PROTONIX) 40 mg tablet Take 1 tablet by mouth daily before breakfast. Take on empty stomach, 1/2 hr before meal. 0 04/09/2021 11/17/2022 Discontinued Start: 03-25-2021 End: 07-31-2024 take 1 tablet by mouth twice daily before mealtime pantoprazole DR (PROTONIX) 40 mg tablet Take 1 tablet by mouth two times a day. Take on empty stomach, 1/2 hr before meal. 10/14/2023 Active Start: 02-19-2021 End: 03-25-2021 take 1 tablet by mouth once daily at bedtime Pantoprazole (Protonix) 40 mg tablet,delayed release (DR/EC) Discontinued 40 mg PO DAILY 90 3 February 19, 2021 3:37pm March 25, 2021 5:52pm takes omeprazole in am and pantoprazole at hs Start: 09-23-2020 End: 02-16-2021 take 1 tablet by mouth once daily Pantoprazole 40 mg tablet,delayed release (DR/EC) Discontinued 40 mg PO DAILY 30 30 September 23, 2020 12:00am February 16, 2021 12:31pm Comment on above: Take 1 tablet by [facility] daily before breakfast. Take on empty stomach, 1/2 hr before meal. Take 1 tablet by [facility] twice daily. Take on empty stomach, 1/2 hr before meal. spironolactone 25 mg oral tablet (20 sources) Aldosterone Antagonist Start: 11-26-19 End: 10-30-19 25 take 1 tablet by mouth once spironolactone (ALDACTONE) 25 mg tablet Take 1 tablet by mouth every afternoon. Per [facility] 03/21/2023 Active Comment on above: Take 1 tablet by [facility] every afternoon. Take 1 tablet by [facility] every afternoon. Per [facility] torsemide 20 mg oral tablet (20 sources) Loop Diuretic Start: 01-23-20 24 End: 04-16-19 25 torsemide (DEMADEX) 20 mg tablet Take 1 tablet by mouth two times a day. [facility] 04/16/2024 Active Start: 01-20-2024 End: 01-23-2024 take 1 tablet by mouth once daily torsemide (DEMADEX) 10 mg tablet Take 1 tablet by mouth once daily. 30 tablet 2 01/20/2024 01/23/2024 Discontinued Start: 08-12-2023 End: 07-31-2024 take 1 tablet by mouth twice daily Torsemide 20 mg tablet Discontinued 20 mg PO TWICE A DAY 180 3 August 25, 2023 4:11pm July 31, 2024 2:13pm Completed/Discontinued Medications Medication Drug Class(es) Dates Sig (Normalized) Sig (Original) Blood Pressure Monitor (BLOOD PRESSURE KIT) (1 source) Start: 08-17-2024 End: 08-18-2024 Blood Pressure Monitor (BLOOD PRESSURE KIT) Blood pressure check once a day. 1 kit 08/17/2024 08/18/2024 cholestyramine resin 4000 mg powder for oral suspension (20 sources) Bile Acid Sequestrant Start: 02-23-2024 End: 07-31-2024 Cholestyramine (With Sugar) 4 gram powder Discontinued 4 g PO AT BEDTIME 368.76 0 July 03, 2024 7:20am July 31, 2024 1:53pm administer w/meal; avoid other meds within 1hr before or 4-6hr after dose Start: 02-03-2024 take 4 g by mouth at bedtime cholestyramine-sucrose (QUESTRAN) 4 gram powder TAKE 4 GRAMS BY MOUTH AT BEDTIME. ADMINISTER WITH A MEAL. AVOID O... (REFER TO PRESCRIPTION NOTES). 02/03/2024 Active Start: 02-03-2024 End: 02-23-2024 Cholestyramine (With Sugar) 4 gram powder Discontinued 4 g PO AT BEDTIME 368.76 0 February 03, 2024 1:00am February 23, 2024 11:49am administer w/meal; avoid other meds within 1hr before or 4-6hr after dose Start: 02-03-2024 End: 02-23-2024 Cholestyramine (With Sugar) 4 gram powder Discontinued 4 g PO AT BEDTIME 368.76 February 03, 2024 1:00am February 23, 2024 11:49am administer w/meal; avoid other meds within 1hr before or 4-6hr after dose colestipol hydrochloride 1000 mg oral tablet (20 sources) Bile Acid Sequestrant Start: 01-03-2024 End: 10-22-2024 Colestipol 1 gram tablet Discontinued 4 g PO DAILY 120 2 July 31, 2024 1:52pm October 22, 2024 5:11pm diarrhea Start: 07-17-2023 take 2 tablets by mi ut twice daily colestipol (COLESTID) 1 gram tablet Take 2 tablets by mouth two times a day. 07/17/2023 Active Start: 01-29-2022 End: 04-04-2023 take 2 g by mouth twice daily Colestipol Discontinued 2 GM PO TWICE A DAY 360 90 March 22, 2023 3:09pm April 04, 2023 4:16pm Start: 03-25-2021 End: 01-03-2024 Colestipol 1 gram tablet Discontinued 2 g PO TWICE A DAY 360 90 1 March 22, 2023 3:09pm April 04, 2023 4:16pm diarrhea Start: 11-19-2020 End: 07-17-2023 Colestipol 1 gram tablet Discontinued 1 g PO ONCE 60 3 February 20, 2021 6:08pm March 25, 2021 5:52pm Comment on above: Take 1 g by mouth on ce daily. diclofenac sodium 75 mg delayed release oral tablet (20 sources) Nonsteroidal Anti-inflammatory Drug Start: End: take 1 tablet by mouth twice daily Diclofenac Sodium 75 mg tablet,delayed release (DR/EC) Discontinued 75 mg PO TWICE A DAY March 29, 2023 1:00am October 26, 2024 3:02pm Start: 03-29-2023 take 1 mg by mouth twice daily Diclofenac Sodium Active MG PO TWICE A DAY March 29, 2023 1:00am Start: 06-11-2022 End: 11-10-2022 take 1 tablet [...] on above: Take 1 tablet by [facility] twice daily. FOR PAIN take 1 tablet by [facility] twice a day for pain Take 1 tablet by [facility] twice daily. diphenhydrAMINE hydrochloride 25 mg oral capsule (7 sources) Histamine-1 Receptor Antagonist Start: End: take 1 capsule by mouth once Diphenhydramine Hcl (Benadryl) 25 mg capsule Discontinued 25 mg PO ONCE 1 October 19, 2023 12:00am January 03, 2024 1:16pm Take 1hr prior to CT etodolac 400 mg oral tablet (2 sources) Nonsteroidal Anti-inflammatory Drug Start: End: take 1 tablet by mouth twice daily etodolac (LODINE) 400 mg tablet Take 1 tablet by mouth twice daily. 60 tablet 0 10/26/2021 12/09/2021 Discontinued Comment on above: Take 1 tablet by [facility] twice daily. famotidine 20 mg oral tablet (7 sources) Histamine-2 Receptor Antagonist Start: End: take 1 tablet by mouth once daily Famotidine 20 mg tablet Discontinued 20 mg PO DAILY 1 October 19, 2023 12:00am January 03, 2024 1:16pm Take 1hr prior to CT furosemide 40 mg oral tablet (20 sources) Loop Diuretic Start: End: take 1 tablet by mouth twice daily Furosemide 40 mg tablet Discontinued 40 mg PO TWICE A DAY 60 December 09, 2022 12:00am August 12, 2023 9:57am Start: 05-28-2020 End: 12-09-2022 take 2 tablets by mouth once daily Furosemide 20 mg tablet Discontinued 40 mg PO DAILY 30 May 28, 2020 12:22pm July 14, 2020 4:45pm Start: 05-28-2020 End: 12-09-2022 take 40 mg by mouth once daily Furosemide Discontinued 40 MG PO DAILY 180 October 08, 2022 4:45pm December 09, 2022 3:44pm Start: 12-13-2018 End: 07-06-2023 take 1 tablet by mouth once daily Furosemide 20 mg tablet Discontinued 40 mg PO DAILY 180 3 October 08, 2022 4:45pm December 09, 2022 3:44pm water pill Comment on above: Take 1 tablet by [facility] once daily. Take 1 tablet by [facility] two times a day. Per [facility] gabapentin 300 mg oral capsule (19 sources) Anti-epileptic Agent Start: 07-27-19 End: 10-27-19 take 1 capsule by mouth at bedtime Gabapentin 300 mg capsule Discontinued 300 mg PO AT BEDTIME August 13, 2024 12:00am October 26, 2024 3:03pm ibuprofen 600 mg oral tablet (20 sources) Nonsteroidal Anti-inflammatory Drug Start: 11-01-19 End: 11-09-19 take 1 tablet by mouth every eight hours Ibuprofen 600 mg tablet Discontinued 600 mg PO Q8H 42 0 November 01, 2019 12:00am November 09, 2019 1:09pm costochondritis lidocaine hydrochloride 0.02 mg/mg topical gel (1 source) Antiarrhythmic, Amide Local Anesthetic Start: 07-21-19 End: 07-21-19 lidocaine urojet 2 % 11 mL topical gel (GLYDO) Start: 07-21-2023 End: 07-21-2023 lidocaine urojet 2 % 11 mL t opical gel (GLYDO) meloxicam 15 mg oral tablet (20 sources) Nonsteroidal Anti-inflammatory Drug Start: 10-13-2018 End: 01-09-2019 take 1 tablet by mouth once daily Meloxicam 15 MG tablet Discontinued 15 mg PO DAILY 14 0 October 13, 2018 12:00am January 09, 2019 3:30pm OMEPRAZOLE, BULK, MISC (15 sources) End: 10-14-2023 OMEPRAZOLE, BULK, MISC 40 mg once daily. 0 10/14/2023 Discontinued OMEPRAZOLE, BULK , MISC 40 mg once daily. 0 Active ondansetron 4 mg disintegrating oral tablet (20 sources) Serotonin-3 Receptor Antagonist Start: 09-09-2021 End: 09-30-2021 take 1 tablet by mouth every eight hours as needed for nausea and vomiting Ondansetron 4 mg tablet,disintegrating Discontinued 4 mg PO Q8H as needed for nausea and vomiting 14 0 September 09, 2021 12:00am September 30, 2021 10:14am phentermine hydrochloride 30 mg oral capsule (20 sources) Sympathomimetic Amine Anorectic Start: 03-02-2024 End: 10-29-2024 take 1 capsule by mouth once daily 2 hour(s) after breakfast Phentermine 30 mg capsule Discontinued 30 mg PO daily 30 3 March 02, 2024 1:00am October 29, 2024 4:13pm must administer 2 hours after breakfast Start: 03-31-2021 End: 03-29-2023 take 1 capsule by mouth once daily 2 hour(s) after breakfast Phentermine 30 mg capsule Discontinued 30 mg PO DAILY 30 0 September 30, 2021 10:22am March 29, 2023 3:55pm must administer 2 hours after breakfast. BMI 43. End: 04-12-2022 phentermine HCl (PHENTERMINE ORAL) Take by mouth. 0 04/12/2022 Discontinued (Course of therapy completed) phentermine HCl (PHENTERMINE ORAL) Take by mouth. 0 Active Comment on above: Take by mouth. potassium chloride 10 meq extended release oral capsule (20 sources) Start: 02-25-2023 End: 02-25-2023 take 1 capsule by mouth once daily Potassium Chloride 10 mEq capsule, extended release Discontinued 10 meq PO DAILY February 25, 2023 1:00am February 25, 2023 3:39pm Not currently taking Start: 02-25-2023 End: 02-25-2023 take 10 mEq by mouth once daily Potassium Chloride Dis continued 10 MEQ PO DAILY February 25, 2023 1:00am February 25, 2023 3:39pm Not currently taking Start: 02-16-2017 End: 08-25-2023 take 1 capsule by mouth once daily potassium chloride SR (MICRO-K) 10 mEq CR capsule Indications: Edema, unspecified type Take 1 capsule by mouth once daily. 30 capsule 6 02/16/2017 Active Comment on above: Take 1 capsule by [facility] once daily. predniSONE 20 mg oral tablet (7 sources) Start: 4 End: take 1 tablet by mouth once daily Prednisone 20 mg tablet Discontinued 20 mg PO DAILY 1 0 October 19, 2023 12:00am November 04, 2023 11:08am Take 1hr prior to CT raNITIdine 150 mg oral tablet (20 sources) Histamine-2 Receptor Antagonist Start: End: take 1 tablet by mouth twice daily Ranitidine Hcl (Acid Control (Ranitidine)) 150 mg tablet Discontinued 150 mg PO TWICE A DAY December 13, 2018 12:00am February 23, 2019 4:53pm reflux sodium chloride 0.154 meq/ml irrigation solution (1 source) Start: End: NaCl 0.9% irrigation solution Start: 07-21-2023 End: 07-21-2023 NaCl 0.9% irrigation solutio n Sucralfate (20 sources) Aluminum Complex Start: 07-07-2024 End: 07-31-2024 take 1 tablet by mouth three times daily Sucralfate 1 gram tablet Discontinued 1 g PO THREE TIMES A DAY 60 3 July 07, 2024 4:48pm July 31, 2024 1:53pm Start: 07-07-2024 End: 07-31-2024 take 1 tablet by mouth three times daily Sucralfate 1 gram tablet Discontinued 1 g PO THREE TIMES A DAY 60 July 07, 2024 4:48pm July 31, 2024 1:53pm Start: 06-20-2024 End: 07-07-2024 take 1 tablet by mouth three times daily Sucralfate 1 gram tablet Discontinued 1 g PO THREE TIMES A DAY 60 0 June 20, 2024 8:56am July 07, 2024 4:49pm Start: 06-20-2024 End: 07-07-2024 take 1 tablet by mouth three times daily Sucralfate 1 gram tablet Discontinued 1 g PO THREE TIMES A DAY 60 June 20, 2024 8:56am July 07, 2024 4:49pm Start: 06-20-2024 take 1 tablet by [facility] three times daily Sucralfate 1 gram tablet Active 1 g PO THREE TIMES A DAY 60 June 20, 2024 8:56am Start: 06-05-2024 End: 06-20-2024 take 1 tablet by mouth three times daily Sucralfate 1 gram tablet Discontinued 1 g PO THREE TIMES A DAY 60 0 June 05, 2024 4:58pm June 20, 2024 8:56am Start: 06-05-2024 End: 06-20-2024 take 1 tablet by mouth three times daily Sucralfate 1 gram tablet Discontinued 1 g PO THREE TIMES A DAY 60 June 05, 2024 4:58pm June 20, 2024 8:56am Start: 02-26-2024 sucralfate (CA RAFATE) 1 gram tablet Take one tablet in the morning and one tablet in the afternoon 02/26/2024 Active Start: 02-03-2024 End: 06-05-2024 take 1 tablet by mouth twice daily in the morning Sucralfate (Carafate) 1 gram tablet Discontinued 1 g PO TWICE A DAY 60 0 March 20, 2024 12:10pm June 05, 2024 4:59pm Take one tablet in the morning and one tablet in the afternoon Start: 09-09-2021 End: 09-30-2021 take 1 g by mouth twice daily Sucralfate (Carafate) 10 0 mg/mL suspension Discontinued 1 g PO TWICE A DAY 200 0 September 09, 2021 12:00am September 30, 2021 10:14am topiramate 50 mg oral tablet (20 sources) Start: 08-13-2024 End: 10-26-2024 take 2 tablets by mouth once daily Topiramate 50 mg tablet Discontinued 100 mg PO daily August 13, 2024 12:00am October 26, 2024 3:06pm Start: 08-06-2024 End: 11-04-2024 take 39-39.9 tablets by mouth once daily topiramate (TOPAMAX) 50 mg tablet Indications: Cirrhosis of liver without ascites, unspecified hepatic cirrhosis type (HCC) , Stage 3a chronic kidney disease (HCC) , Obesity, Class III, BMI 40-49.9 (morbid obesity) (HCC) , Acquired hypothyroidism , Gastroesophageal reflux disease, unspecified whether esophagitis present , VETO on CPAP , Dietary counseling and surveillance , BMI 39.0-39.9,adult Take 2 tablets by mouth once daily. 180 tablet 08/06/2024 08/16/2024 Discontinued Start: 06-22-2024 End: 11-14-2024 take 1 tablet by mouth at bedtime Topiramate 25 mg tablet Discontinued 25 mg PO AT BEDTIME June 28, 2024 12:00am August 13, 2024 2:41pm traMADol hydrochloride 50 mg oral tablet (20 sources) Opioid Agonist Start: 03-29-2023 take 1 mg by mouth every six hours Tramadol Active MG PO EVERY 6 HOURS March 29, 2023 1:00am Start: 02-21-2023 End: 10-26-2024 take 1 tablet by mouth every six hours as needed for pain Tramadol 50 mg tablet Discontinued 50 mg PO EVERY 6 HOURS as needed for pain March 29, 2023 1:00am October 26, 2024 3:03pm Comment on above: Take 1 tablet by [facility] every 6 hours as needed for pain. Problems Active Problems Problem Classification Problem Date Documented Da te Episodic/Chronic Acquired foot deformities (20 sources) Bunion; 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: [Bunion of unspecified foot] 10-14-2018 Episodic Anxiety disorders (3 sources) Anxiety; 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: [Anxiety disorder, unspecified] 03-28-2024 Chronic Asthma (20 sources) Asthma; 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: [Unspecified asthma, uncomplicated] Onset: 9 07-31-2015 Chronic Comment on above: INHALERS USED Biliary tract disease (20 sources) Calculus of gallbladder with cholecystitis; 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: [Calculus of gallbladder with chronic cholecystitis without obstruction] 06-30-2020 Episodic Cardiac dysrhythmias (4 sources) Atrial fibrillation; 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: [Unspecified atrial fibrillation] Onset: 5 09-08-2023 Chronic Cardiac dysrhythmias (20 sources) Palpitations; 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: [Palpitations] Onset: 5 01-21-2019 Episodic Chronic kidney disease (20 sources) Chronic kidney disease stage 3A ; 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: [Chronic renal impairment, stage 3a] Onset: 2 04-08-2021 Chronic Chronic kidney disease (3 sources) Chronic kidney disease; 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: [Stage 3 chronic kidney disease, unspecified whether stage 3a or 3b CKD (HCC)] Onset: 3 Complication of device; implant or graft (20 sources) Pain; 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: [Pain due to vascular prosthetic devices, implants and grafts, sequela] 01-24-2019 Episodic Diabetes mellitus without complication (1 source) Hyperglycemia; 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: [Hyperglycemia, unspecified] 07-12-2023 Episodic Disorders of lipid metabolism (1 source) Hyperlipidemia; 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: [Hyperlipidemia, unspecified] 09-20-2023 Chronic Esophageal disorders (20 sources) Gastroesophageal reflux disease; 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: [Gastro-esophageal reflux disease without esophagitis] Onset: 1 07-29-2010 Chronic Essential hypertension (2 sources) Essential hypertension; 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: [Essential (primary) hypertension] 04-18-2024 Chronic Headache; including migraine (20 sources) Headache; 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: [Headache] Episodic Immunizations and screening for infectious disease (3 sources) Vaccination needed; 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: [Encounter for immunization] Onset: 5 10-14-2023 Episodic Intestinal infection (20 sources) Viral gastroenteritis; 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: [Viral intestinal infection, unspecified] 05-26-2020 Episodic Lymphadenitis (20 sources) Mediastinal lymphadenopathy; 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: [Localized enlarged lymph nodes] 05-25-2020 Episodic Malaise and fatigue (20 sources) Fatigue; 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: [Other fatigue] 01-21-2019 Episodic Miscellaneous mental health disorders (2 sources) Eating disorder; 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: [Eating disorder, unspecified] 03-28-2024 Chronic Nonspecific chest pain (20 sources) Atypical chest pain; 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: [Other chest pain] Onset: 2 04-09-2021 Episodic Nutritional deficiencies (5 sources) Vitamin D deficiency; 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: [Vitamin D deficiency, unspecified] Onset: 5 10-10-2023 Chronic Nutritional deficiencies (1 source) Folic acid deficiency; 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: [Deficiency of other specified B group vitamins] 10-10-2023 Episodic Osteoarthritis (5 sources) Osteoarthritis of right knee joint; 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: [Unilateral primary osteoarthritis, right knee] Chronic Other aftercare (3 sources) half-way current use of non-steroidal anti-inflammatory drug; 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: [half-way (current) use of non-steroidal anti-inflammatories (NSAID)] 11-18-2023 Episodic Other circulatory disease (1 source) Abnormal peripheral pulse; 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: [Other specified symptoms and signs involving the circulatory and respiratory systems] 03-01-2024 Episodic Other connective tissue disease (20 sources) Tendinitis; 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: [Enthesopathy, unspecified] 10-14-2018 Episodic Other connective tissue disease (1 source) Pain of toe of left foot; 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: [Pain in left toe(s)] 03-02-2024 Episodic Other connective tissue disease (1 source) Pain of toe of right foot; 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: [Pain in right toe(s)] 03-02-2024 Episodic Other connective tissue disease (6 sources) Swelling of lower limb; 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: [Other specified soft tissue disorders] 07-04-2024 Episodic Other connective tissue disease (1 source) Pain in right leg; 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: [Right leg pain] Onset: 5 Episodic Other diseases of kidney and ureters (1 source) Renal impairment; 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: [Disorder of kidney and ureter, unspecified] 12-03-2022 Episodic Other diseases of veins and lymphatics (1 source) Lymphedema; 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: [Lymphedema, not elsewhere classified] 09-20-2023 Chronic Other gastrointestinal disorders (20 sources) Irritable bowel syndrome with diarrhea; 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: [Irritable bowel syndrome with diarrhea] Onset: 6 08-04-2015 Chronic Other gastrointestinal disorders (20 sources) Irritable bowel syndrome; 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: [Irritable bowel syndrome without diarrhea] 01-20-2019 Chronic Other gastrointestinal disorders (11 sources) Irritable bowel syndrome without diarrhea; 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: [Irritable bowel syndrome] Chronic Other gastrointestinal disorders (20 sources) Diarrhea; 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: [Diarrhea, unspecified] 11-19-2020 Episodic Other gastrointestinal disorders (20 sources) Abdominal bloating; 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: [Abdominal distension (gaseous)] 11-19-2020 Episodic Comment on above: Bloating is likely m ultifactorial. Once we have imaging then we will get further biochemical analysis. Other gastrointestinal disorders (3 sources) Diarrhea, unspecified; 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: [Diarrhea] Episodic Other gastrointestinal disorders (1 source) Esophageal dysphagia; 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: [Other dysphagia] 07-06-2023 Episodic Other injuries and conditions due to external causes (3 sources) Traumatic injury; 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: [Injury, unspecified, initial encounter] 03-28-2024 Episodic Other liver diseases (20 sources) Cirrhosis of liver; 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: [Unspecified cirrhosis of liver] Onset: 4 04-16-2024 Chronic Other liver diseases (2 sources) Unspecified cirrhosis of liver; 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: [Cirrhosis of liver without ascites, unspecified hepatic cirrhosis type (HCC)] Onset: 5 Chronic Other liver diseases (20 sources) Alkaline phosphatase raised; 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: [Abnormal levels of other serum enzymes] 09-30-2021 Episodic Other liver diseases (3 sources) Abnormal levels of other serum enzymes; 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: [Other nonspecific abnormal serum enzyme levels] Episodic Other lower respiratory disease (20 sources) Dyspnea on exertion; 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: [Other forms of dyspnea] 09-03-2020 Episodic Other lower respiratory disease (19 sources) Other forms of dyspnea; 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: [Other respiratory abnormalities] Episodic Other lower respiratory disease (9 sources) Dyspnea; 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: [Shortness of breath] 07-08-2023 Episodic Other lower respiratory disease (2 sources) Dyspnea, unspecified; 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: [Dyspnea, unspecified] Onset: 5 Episodic Other nervous system disorders (20 sources) Carpal tunnel syndrome; 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: [Carpal tunnel syndrome, bilateral upper limbs] 01-20-2019 Chronic Other nervous system disorders (1 source) Impaired executive functioning; 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: [Frontal lobe and executive function deficit] 09-13-2024 Chronic Other nervous system disorders (1 source) Frontal lobe and executive function deficit; 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: [Executive function deficit] Onset: 5 Chronic Other non-traumatic joint disorders (8 sources) Effusion of right knee joint; 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: [Effusion, right knee] Episodic Other non-traumatic joint disorders (7 sources) Instability of right patellofemoral joint; 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: [Other instability, right knee] Episodic Other non-traumatic joint disorders (8 sources) Pain in right knee; 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: [Pain in joint, lower leg] Episodic Other non-traumatic joint disorders (1 source) Joint pain; 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: [Pain in unspecified joint] 09-20-2023 Episodic Other nutritional; endocrine; and metabolic disorders (20 sources) Morbid (severe) obesity due to excess calories; 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: [Morbid obesity] Onset: 8 Chronic Other nutritional; endocrine; and metabolic disorders (8 sources) Severe obesity; 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: [Morbid (severe) obesity due to excess calories] 07-06-2023 Chronic Other nutritional; endocrine; and metabolic disorders (2 sources) Drug-induced obesity; 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: [Class 3 drug-induced obesity with serious comorbidity and body mass index (BMI) of 40.0 to 44.9 in adult (HCC)] 02-01-2024 Chronic Other nutritional; endocrine; and metabolic disorders (20 sources) Body mass index 30+ - obesity; 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: [Body mass index (BMI) 39.0-39.9, adult] Onset: 5 06-20-2024 Chronic Other nutritional; endocrine; and metabolic disorders (9 sources) Obesity; 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: [Class 2 obesity with body mass index (BMI) of 39.0 to 39.9 in adult, unspecified obesity type, unspecified whether serious comorbidity present] 07-03-2024 Chronic Other nutritional; endocrine; and metabolic disorders (5 sources) Body mass index (BMI) 39.0-39.9, adult; 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: [Class 2 severe obesity with serious comorbidity and body mass index (BMI) of 39.0 to 39.9 in adult, unspecified obesity type (HCC)] Onset: 5 Chronic Other nutritional; endocrine; and metabolic disorders (1 source) Body mass index (BMI) 45.0-49.9, adult; 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: [Class 3 severe obesity due to excess calories with serious comorbidity and body mass index (BMI) of 45.0 to 49.9 in adult (HCC)] Onset: 4 Chronic Other nutritional; endocrine; and metabolic disorders (1 source) Weight gain; 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: [Abnormal weight gain] 11-17-2022 Episodic Other screening for suspected conditions (not mental disorders or infectious disease) (20 sources) Patient encounter status; 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: [Encounter for screening mammogram for malignant neoplasm of breast] Onset: 5 Episodic Other skin disorders (20 sources) Loss of hair; 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: [Nonscarring hair loss, unspecified] 01-21-2019 Episodic Other skin disorders (1 source) Dystrophia unguium; 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: [Nail dystrophy] 03-01-2024 Episodic Residual codes; unclassified (20 sources) 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 apnea syndrome; 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: [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 apnea (adult) (pediatric)] Onset: 9 04-08-2021 Chronic Residual codes; unclassified (20 sources) Hypersomnia; 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: [Hypersomnia, unspecified] 01-20-2019 Chronic Residual codes; unclassified (14 sources) 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 apnea (adult) (pediatric); 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: [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 apnea (adult)(pediatric)] Onset: 2 Chronic Residual codes; unclassified (20 sources) History of syncope; 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: [Personal history of other specified conditions] 01-20-2019 Episodic Residual codes; unclassified (12 sources) Other specified postprocedural states; 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: [Personal history of surgery to heart and great vessels, presenting hazards to health] Onset: 9 Episodic Residual codes; unclassified (9 sources) Swelling; 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: [Edema, unspecified] 07-08-2023 Episodic Residual codes; unclassified (1 source) Edema of lower extremity; 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: [Localized edema] 07-03-2024 Episodic Residual codes; unclassified (2 sources) Amnesia; 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: [Other amnesia] 08-16-2024 Episodic Residual codes; unclassified (2 sources) Unspecified symptoms and signs involving cognitive functions and awareness; 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: [Other signs and symptoms involving cognition] Onset: 5 09-13-2024 Episodic Screening and history of mental health and substance abuse codes (4 sources) Personal history of other mental and behavioral disorders; 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: [Personal history of other mental disorders] Onset: 5 09-13-2024 Episodic Substance-related disorders (20 sources) Cigarette smoker ; 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: [Nicotine dependence, cigarettes, uncomplicated] Onset: 9 Resolved: 6 05-25-2020 Chronic Superficial injury; contusion (4 sources) Contusion of multiple sites of lower limb; 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: [Contusion of right lower leg, initial encounter] 02-21-2023 Episodic Thyroid disorders (20 sources) Subclinical hypothyroidism; 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: [Other specified hypothyroidism] Onset: 3 11-29-2022 Chronic Unclassified (1 source) Class 2 severe obesity with serious comorbidity and body mass index (BMI) of 39.0 to 39.9 in adult, unspecified obesity type (HCC); 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: [Class 2 severe obesity with serious comorbidity and body mass index (BMI) of 39.0 to 39.9 in adult, unspecified obesity type (HCC)] Onset: 5 Unclassified (2 sources) Class 2 obesity with body mass index (BMI) of 39.0 to 39.9 in adult, unspecified obesity type, unspecified whether serious comorbidity present; 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: [Class 2 obesity with body mass index (BMI) of 39.0 to 39.9 in adult, unspecified obesity type, unspecified whether serious comorbidity present] Onset: 5 Unclassified (1 source) Established Patient Onset: 4 Unclassified (1 source) Class 3 severe obesity due to excess calories with serious comorbidity and body mass index (BMI) of 45.0 to 49.9 in adult ([facility]); 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: [Class 3 severe obesity due to excess calories with serious comorbidity and body mass index (BMI) of 45.0 to 49.9 in adult ([facility])] Onset: 4 Unclassified (1 source) Obesity, Class III, BMI 40-49.9 (morbid obesity) ([facility]); 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: [Obesity, Class III, BMI 40-49.9 (morbid obesity) ([facility])] Onset: 8 Past or Other Problems Problem Classification Problem Date Documented Date Episodic/Chronic Abdominal hernia (20 sources) Hiatal hernia; 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: [Diaphragmatic hernia without obstruction or gangrene] Onset: 07-03-2024 Episodic Abdominal pain (20 sources) Right upper quadrant pain; 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: [Right upper quadrant pain] Onset: 04-16-2024 Episodic Administrative/social admission (3 sources) Impaired mobility; 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: [Other reduced mobility] Onset: 06-20-2024 Episodic Allergic reactions (20 sources) Eczema; Translations: [Dermatitis, unspecified] Onset: 07-15-2023 10-08-2022 Episodic Gastritis and duodenitis (20 sources) Bile-induced gastritis; Translations: [Other gastritis without bleeding] Onset: 04-08-2021 04-08-2021 Episodic Comment on above: Hopefully the proton pump inhibitor that she takes along with the colestipol will help with these symptoms. She will also do a food diary and I will talk to Cardiology regarding a weight loss medication. Mycoses (20 sources) Onychomycosis due to dermatophyte ; Translations: [Tinea unguium] Onset: 04-08-2021 Resolved: 10-08-2021 04-08-2021 Episodic Nephritis; nephrosis; renal sclerosis (20 sources) Atrophy of right kidney; Translations: [Atrophy of kidney (terminal)] Onset: 01-27-2023 Resolved: 10-14-2023 01-27-2023 Chronic Other and unspecified benign neoplasm (20 sources) Polyp of colon; Translations: [Polyp of colon] Onset: 07-17-2020 04-08-2021 Episodic Other lower respiratory disease (2 sources) Shortness of breath; Translations: [Shortness of breath] Onset: 07-02-2024 Episodic Other nervous system disorders (20 sources) Bilateral carpal tunnel syndrome; Translations: [Carpal tunnel syndrome, bilateral upper limbs] Onset: 10-16-2015 Resolved: 10-14-2023 10-16-2015 Chronic Other non-traumatic joint disorders (20 sources) Pain in lower limb; Translations: [Pain in unspecified knee] Onset: 2010 Resolved: 07-31-2015 07-31-2015 Episodic Other nutritional; endocrine; and metabolic disorders (20 sources) Body mass index 40+ - severely obese; Translations: [Morbid (severe) obesity due to excess calories] Onset: 07-27-2017 Resolved: 10-18-2024 07-27-2017 Chronic Other nutritional; endocrine; and metabolic disorders (20 sources) Obesity caused by energy imbalance; Translations: [Other obesity due to excess calories] Onset: 06-13-2008 Resolved: 04-08-2021 04-08-2021 Chronic Other nutritional; endocrine; and metabolic disorders (20 sources) Loss of appetite; Translations: [Anorexia] Onset: 07-15-2023 07-15-2023 Episodic Other skin disorders (1 source) Nail dystrophy; Translations: [Onychodystrophy] Onset: 03-01-2024 Episodic Pancreatic disorders (not diabetes) (20 sources) Acute pancreatitis; Translations: [Acute pancreatitis without necrosis or infection, unspecified] Onset: 11-22-2023 Resolved: 10-18-2024 06-20-2024 Episodic Residual codes; unclassified (20 sources) Edema; Translations: [Edema, unspecified] Onset: 06-13-2008 06-13-2008 Episodic Residual codes; unclassified (20 sources) History of cardiac catheterization; Translations: [Other specified postprocedural states] Onset: 01-23-2019 09-03-2020 Episodic Comment on above: Normal coronary dotty christo; Normal LV size, wall motion, and systolic function; Preserved Left Ventricular systolic function with normal EDP; Non obstructive coronary arteries; per [facility] @ [facility] 01/23/2019 Normal coronary dotty christo; Normal LV size, wall motion, and systolic function; Preserved Left Ventricular systolic function with normal EDP; Non obstructive coronary arteries; per [facility] @ [facility] 01/23/2019; Residual codes; unclassified (1 source) Localized edema; Translations: [Leg edema] Onset: 07-03-2024 Episodic Residual codes; unclassified (1 source) Pain, unspecified; Translations: [Pain] Onset: 03-01-2024 Episodic Spondylosis; intervertebral disc disorders; other back problems (20 sources) Chronic low back pain; Translations: [Chronic midline low back pain without sciatica] Onset: 07-31-2015 Resolved: 10-14-2023 04-05-2017 Episodic Spontaneous (20 sources) Complete miscarriage; Translations: [Complete or unspecified spontaneous without complication] Onset: 01-01-2005 Resolved: 06-26-2010 06-26-2010 Episodic Unclassified (1 source) Patient encounter status 07-17-2024 Unclassified (1 source) History of ADHD 09-13-2024 Results Test Name Value Interpretation Reference Range Facility Endocrinology Visit Reporton 01-01-2025 Endocrinology Visit Report [facility] [address] [place] [address] OFFICE VISIT Date of Service: 01/01/25 MR#: [id number] Acct: [id number] Name: JOELLEN GANT Rep #: [id number] : 1965 Provider: Anita Garcia Age/Sex: 59/F Location: [facility] [place] Status: Signed Intake Vital Signs 08/13/24 14:36 12/25/24 11:25 01/01/25 14:45 Height 5 ft 5 in 5 ft 5 in 5 ft 5 in Weight: 217 lb BMI 36.1 BP 109/73 Blood Pressure Location Rt brachial Position Sitting Pulse 71 Pulse Source Monitor Pulse Oximetry (%) 98 Oxygen Delivery Method room air Intake Visit Reasons: 4 M FU Chief Complaint: Thyroid Is patient in pain?: No Allergies Iodinated Contrast Media (CT) Allergy (Unknown, Verified 01/01/25 14:54) rash, arm swelling Seasonal Allergies: Uncoded Allergy (Unknown, Verified 01/01/25 14:54) Unknown Medications ???Medication ???Instructions ???Recorded ???Confirmed ???Type hydrocortisone 2.5 % topical cream 1 applic topical BID skin 01/01/25 History albuterol sulfate 90 mcg/actuation 2 puff inhalation Q4H PRN Sob / Or 02/13/19 01/01/25 Rx aerosol inhaler (ProAir HFA) Wheezing #18 grams fluticasone propionate 50 2 spray intranasal DAILY nasal 01/01/25 Rx mcg/actuation nasal dryness #9.9 grams spray,suspension (Allergy Relief (fluticasone)) ketotifen fumarate 0.025 % (0.035 1 drp ophthalmic (eye) BID PRN 01/01/25 History %) eye drops (Eye Itch Relief) allergy symptoms olopatadine 0.1 % eye drops 1 drp ophthalmic (eye) BID PRN 01/01/25 History itching fluticasone propionate 220 2 puff inhalation BID 03/29/23 History mcg/actuation HFA aerosol inhaler mxkocxea-yhxu-rnx-iron 18 mg-folic 1 tab PO DAILY 01/03/24 01/01/25 History 240 mcg-vit K 120 mcg-herbal tablet ([employer]) cholecalciferol (vitamin D3) 50 50 mcg PO DAILY 06/19/24 01/01/25 History mcg (2,000 unit) capsule cholestyramine (with sugar) 4 gram 4 g PO QHS #368.76 grams 5 01/01/25 Rx oral powder omeprazole 40 mg capsule,delayed 40 mg PO QAM #90 caps 07/31/24 Rx release pantoprazole 40 mg tablet,delayed 40 mg PO BID #180 tabs 07/31/24 1 Rx release (Protonix) sucralfate 1 gram tablet 1 g PO TID #60 TABLETS 07/31/24 Rx colestipol 1 gram tablet 4 g (4 x 1 gram) PO DAILY diarrhea 10/22/24 01/01/25 Rx #120 tabs hydrocodone-acetaminophen 5-325mg 1 tab PO TID PRN 10/29/24 5 History 5mg-325mg levothyroxine 88 mcg tablet 88 mcg PO QHS #90 tabs 11/05/24 Rx (Unithroid) aspirin 81 mg tablet,delayed 81 mg PO DAILY@0800 #90 tabs 11/1801/01/25 Rx release atorvastatin 20 mg tablet 20 mg PO DAILY #90 tabs 11/18/24 1 Rx carvedilol 3.125 mg tablet 3.125 mg PO BID heart #180 tabs 01/01/25 Rx nitroglycerin 0.4 mg sublingual 0.4 mg sublingual Q5M PRN 11/18/24 01/01/25 Rx tablet Cardiac/Chest Pain #25 tabs potassium chloride 10 mEq 10 meq PO DAILY #90 caps 11/18/24 01/01/25 Rx capsule,extended release spironolactone 25 mg tablet 25 mg PO QDAY #90 tabs 11/18/24 Rx torsemide 20 mg tablet 20 mg PO BID #180 tabs 11/18/24 Rx dicyclomine 20 mg tablet 20 mg PO TID for abdominal pain 01/01/25 Rx #90 TABLETS hyoscyamine sulfate 0.125 mg tablet 0.125 mg PO BID-QID for 5 01/01/25 Rx indigestion #120 TABLETS tcnkpx-sqmoooee-nfktvbm 3 cap PO QAC #300 caps 12/13/24 Rx 36,000-114,000-180,000 unit capsule,delay rel (Creon) tizanidine 6 mg capsule 6 mg PO BID PRN muscle spasticity 12/25/24 01/01/25 Rx #60 [facility] Loss of hearing Restless legs Pancreatitis, reflux Leg cramps Diabetes Thyroid disease Arthritis History of renal disease Back pain Injury of back Migraine headache History of hiatal hernia Gastric reflux BiPAP (biphasic positive airway pressure) dependence History of pain when walking History of edema Cardiology follow-up encounter Bloating Diarrhea History of vaginal delivery Loose, teeth Wears glasses Bruises easily History of ectopic Post-menopausal Ulcer Former smoker History of echocardiogram History of stress test Atrial fibrillation Asthma Surgical History History of cholecystectomy ( 07/22/20) Hx of esophagogastroduodenoscopy Hx of colonoscopy History of tooth extraction History of cardiac catheterization History of right and left heart catheterization (01/23/19) Family History Mother A (more content not included)... Normal [facility] Gastroenterology Visit Repor prem 12-25-2024 Gastroenterology Visit Report [facility] [address] [place] [address] OFFICE VISIT Date of Service: 12/25/24 MR#: [id number] Acct: [id number] Name: JOELLEN GANT Rep #: [id number] : 1965 Provider: Kemar Byrnes DO Age/Sex: 59/F Location: [facility] [place] Status: Signed Intake Vital Signs 08/27/24 14:16 10/29/24 16:03 12/25/24 11:25 Height 5 ft 5 in 5 ft 5 in 5 ft 5 in Weight: 219 lb 2 oz BMI 36.4 Intake Visit Reasons: 4 M FU Allergies Iodinated Contrast Media (CT) Allergy (Unknown, Verified 10/26/24 15:01) rash, arm swelling Seasonal Allergies: Uncoded Allergy (Unknown, Verified 10/29/24 16:07) Unknown Medications ???Medication ???Instructions ???Recorded ???Confirmed ???Type hydrocortisone 2.5 % topical cream 1 applic topical BID skin 12/25/24 History albuterol sulfate 90 mcg/actuation 2 puff inhalation Q4H PRN Sob / Or 02/13/19 12/25/24 Rx aerosol inhaler (ProAir HFA) Wheezing #18 grams fluticasone propionate 50 2 spray intranasal DAILY nasal 12/25/24 Rx mcg/actuation nasal dryness #9.9 grams spray,suspension (Allergy Relief (fluticasone)) ketotifen fumarate 0.025 % (0.035 1 drp ophthalmic (eye) BID PRN 12/25/24 History %) eye drops (Eye Itch Relief) allergy symptoms olopatadine 0.1 % eye drops 1 drp ophthalmic (eye) BID PRN 12/25/24 History itching fluticasone propionate 220 2 puff inhalation BID 03/29/23 History mcg/actuation HFA aerosol inhaler auuhsfrv-mskz-djo-iron 18 mg-folic 1 tab PO DAILY 01/03/24 12/25/24 History 240 mcg-vit K 120 mcg-herbal tablet ([employer]) cholecalciferol (vitamin D3) 50 50 mcg PO DAILY 06/19/24 12/25/24 History mcg (2,000 unit) capsule cholestyramine (with sugar) 4 gram 4 g PO QHS #368.76 grams 5 12/25/24 Rx oral powder omeprazole 40 mg capsule,delayed 40 mg PO QAM #90 caps 07/31/24 Rx release pantoprazole 40 mg tablet,delayed 40 mg PO BID #180 tabs 07/31/24 1 Rx release (Protonix) sucralfate 1 gram tablet 1 g PO TID #60 TABLETS 07/31/24 Rx colestipol 1 gram tablet 4 g (4 x 1 gram) PO DAILY diarrhea 10/22/24 12/25/24 Rx #120 tabs hydrocodone-acetaminophen 5-325mg 1 tab PO TID PRN 10/29/24 5 History 5mg-325mg levothyroxine 88 mcg tablet 88 mcg PO QHS #90 tabs 11/05/24 Rx (Unithroid) aspirin 81 mg tablet,delayed 81 mg PO DAILY@0800 #90 tabs 11/1812/25/24 Rx release atorvastatin 20 mg tablet 20 mg PO DAILY #90 tabs 11/18/24 1 Rx carvedilol 3.125 mg tablet 3.125 mg PO BID heart #180 tabs 12/25/24 Rx nitroglycerin 0.4 mg sublingual 0.4 mg sublingual Q5M PRN 11/18/24 12/25/24 Rx tablet Cardiac/Chest Pain #25 tabs potassium chloride 10 mEq 10 meq PO DAILY #90 caps 11/18/24 12/25/24 Rx capsule,extended release spironolactone 25 mg tablet 25 mg PO QDAY #90 tabs 11/18/24 Rx torsemide 20 mg tablet 20 mg PO BID #180 tabs 11/18/24 Rx dicyclomine 20 mg tablet 20 mg PO TID for abdominal pain 12/25/24 Rx #90 TABLETS hyoscyamine sulfate 0.125 mg tablet 0.125 mg PO BID-QID for 5 12/25/24 Rx indigestion #120 TABLETS tdtuqw-jkiljyfr-ekdakod 3 cap PO QAC #300 caps 12/13/24 Rx 36,000-114,000-180,000 unit capsule,delay rel (Creon) tizanidine 6 mg capsule 6 mg PO BID PRN muscle spasticity 12/25/24 12/25/24 Rx #60 caps PFSH Medical History Loss of hearing Restless legs Pancreatitis, reflux Leg cramps Diabetes Thyroid disease Arthritis History of renal disease Back pain Injury of back Migraine headache History of hiatal hernia Gastric reflux BiPAP (biphasic positive airway pressure) dependence History of pain when walking History of edema Cardiology follow-up encounter Bloating Diarrhea History of vaginal delivery Loose, teeth Wears glasses Bruises easily History of ectopic Post-menopausal Ulcer Former smoker History of echocardiogram History of stress test Atrial fibrillation Asthma Surgical History History of cholecystectomy ( 07/22/20) Hx of esophagogastroduodenoscopy Hx of colonoscopy History of tooth extraction History of cardiac catheterization History of right and left heart catheterization (01/23/19) Family History Mother Atrial fibrillation CVA (cerebral vascular accident) Diabetes Father Myocardial infarction CAD (coronary artery disease) Sister Pacemaker Social History Smoking Status: Former smoker quit date: 05/30/09 pack-years: 15 (more content not included)... [facility] JOELLEN GANT ([id number]) 1965 F T Date Time Provider Department 11/29/24 SAM NULL INTMWS During your visit today, we recorded the following information about you: Halie Ambriz LPN 11/29/2024 3:53 PM Signed Lucille from [facility] calling patient had called office on 11/13/2024 saying that her PCP and [employer] told her she could not have back injections any longer. Patient has cancelled her injection that was scheduled for 10/29/2024 said due to no transportation. Told Lucille no mention in patient chart from PCP about not having any further back injections. She also checked with [facility] and was told same thing. Patient is trying to get pain medication prescribed again. Dr will not give her any rx. Sam Null MD 12/03/2024 7:36 AM Signed Noted. Allergies As of Date: 11/29/2024 Noted Allergy Reaction IV CONTRAST (IODINE) 04/14/2023 7 - Swelling SEASONAL ALLERGIES 04/08/2021 5 - Intolerance Date Reviewed: 10/17/2024 Reviewed by: Kristen Oconnor LPN - Fully Assessed Reason for Visit: Patient Update [1234] Prescriptions as of 12/03/2024 - VITAMIN D-3 50 mcg (2,000 unit) cap TAKE 1 CAPSULE BY MOUTH ONCE DAILY - albuterol HFA (PROAIR HFA) 90 mcg/actuation inhaler Inhale 2 puffs as instructed every 4 hours as needed. - fluticasone (FLONASE) 50 mcg/actuation nasal spray instill 2 sprays into each nostril once daily at bedtime - fluticasone (FLOVENT HFA) 220 mcg/actuation inhaler Inhale 1 puff as instructed two times a day. Shake well before use. Rinse mouth after use. - hyoscyamine (LEVSIN) 0.125 mg tablet Take 1 tablet by mouth every 6 hours as needed. - levothyroxine (SYNTHROID) 88 mcg tablet Take 1 tablet by mouth once daily. [facility]. - hydrocortisone 2.5 % cream Apply 1 application to affected area two times a day as needed (Apply sparingly to rash of hands, arms, legs for 1 week.). - carvedilol (COREG) 3.125 mg tablet Take 1 tablet by mouth two times a day. Per [facility]. - dicyclomine (BENTYL) 20 mg tablet Take 1 tablet by mouth three times a day as needed (per [facility]). - torsemide (DEMADEX) 20 mg tablet Take 1 tablet by mouth two times a day. Per [facility]. - CPAP BiPAP 9/5 cm per [facility]. - cholestyramine-sucrose (QUESTRAN) 4 gram powder TAKE 4 GRAMS BY MOUTH AT BEDTIME. ADMINISTER WITH A MEAL. AVOID O... (REFER TO PRESCRIPTION NOTES). - sucralfate (CARAFATE) 1 gram tablet Take one tablet in the morning and one tablet in the afternoon - cholecalciferol (VITAMIN D3) 50 mcg (2,000 unit) tablet Take 1 tablet by mouth once daily. - CREON 36,000-114,000- 180,000 unit delayed release capsule 1 capsule with meals and at bedtime. 2-3 capsules with meals and 1-2 with snacks - pantoprazole DR (PROTONIX) 40 mg tablet Take 1 tablet by mouth two times a day. Take on empty stomach, 1/2 hr before meal. - omeprazole (PRILOSEC) 40 mg capsule Take 1 capsule by mouth once daily. - colestipol (COLESTID) 1 gram tablet Take 2 tablets by mouth two times a day. - spironolactone (ALDACTONE) 25 mg tablet Take 1 tablet by mouth every afternoon. Per [facility] - olopatadine (PATANOL) 0.1 % ophthalmic solution - EYE ITCH RELIEF 0.025 % (0.035 %) ophthalmic solution instill 1 drop into both eyes twice a day if needed - nitroglycerin sublingual (NITROQUICK) 0.4 mg SL tablet 0.4 mg. - aspirin, enteric coated (ASPIRIN, ENTERIC COATED) 81 mg EC tablet Take 1 tablet by mouth once daily. - atorvastatin (LIPITOR) 20 mg tablet Take 20 mg by mouth once daily. - potassium chloride SR (MICRO-K) 10 mEq CR capsule Take 1 capsule by mouth once daily. Problem List As Of Date 11/29/2024 Noted Resolved Complete spontaneous without mention o*01/01/2005 [...] Obesity, Class III, BMI 40-49.9 (morbid obesity*07/27/2017 10/18/2024 Stage 3a chronic kidney disease (HCC) [N18.31] 04/08/2021 Dermatophytosis of nail [B35.1] 04/08/2021 10/08/2021 Atypical chest pain [R07.89] 04/08/2021 Bile-induced gastritis [K29.60] 04/08/2021 Colon polyp [K63.5] 07/17/2020 Acquired hypothyroidism [E03.9] 04/16/2024 Right renal atrophy [N26.1] 01/27/2023 10/14/2023 Eczema [L30.9] 07/15/2023 No appetite [R63.0] 07/15/2023 Cirrhosis of liver without ascites, unsp (more content not included)... Normal [facility] Absolute lymphocyte countOrd ered By: Porfirio Jeff on 11-02-2024 Lymphocytes Auto (Unsp spec) [#/Vol] 2.29 10*3/uL 0.83-4.51 [facility] Absolute neutrophil countOrd ered By: Porfirio Jeff on 11-02-2024 Neutrophils (Bld) [#/Vol] 3.8 10*3/uL 2.0-7.7 [facility] Anion gap in Serum or Plasma Ordered By: Porfirio Jeff on 11-02-2024 Anion gap [Moles/Vol] 13 mmol/L 5-15 [facility] Automated lymphocyte count a s percentage of total leukocytesOrdered By: Porfirio Jeff on 11-02-2024 Lymphocytes/100 WBC Auto (Unsp spec) 33.0 % 19-41 [facility] BUN/creatinine ratioOrdered By: Porfirio Jeff on 11-02-2024 Urea nitrogen/Creatinine [Mass ratio] 21.2 mg/mg High 10- [facility] Basic Metabolic Profile (BMP )on 11-02-2024 BUN/CRE 21.2 RATIO High 10- [facility] Comment on above: Performed By: #### L 100.0500, L500.2500, [id number] #### [facility] [address] [place], [address] Calcium [Mass/Vol] 9.5 mg/dL Normal 7.6-11.0 [facility] Comment on above: Performed By: #### L 100.0500, L500.2500, [id number] #### [facility] [address] [place], [address] Chloride [Moles/Vol] 101 mmol/L Normal 98-108 [facility] Comment on above: Performed By: #### L 100.0500, L500.2500, [id number] #### [facility] [address] [place], [address] CO2 [Moles/Vol] 25.6 mmol/L Normal 21.0-32.0 [facility] Comment on above: Performed By: #### L 100.0500, L500.2500, [id number] #### [facility] [address] [place], [address] Creatinine [Mass/Vol] 1.16 mg/dL Normal 0.70-1.20 [facility] Comment on above: Performed By: #### L 100.0500, L500.2500, [id number] #### [facility] [address] [place], [address] GAP 13 Normal 5-15 [facility] Comment on above: Performed By: #### L 100.0500, L500.2500, L503.7505 #### [facility] [address] [place], [address] GFR/1.73 sq M.predicted among non-blacks MDRD (S/P/Bld) [Vol rate/Area] 54 mL/min/{1.73_m2} Low >60 [facility] Comment on above: Result Comment: mL/m in/1.73m2 CKD-EPI Creatinine Equation (2020) Performed By: #### L 100.0500, L500.2500, L503.7505 #### [facility] [address] [place], [address] Glucose [Mass/Vol] 94 mg/dL Normal 70-99 [facility] Comment on above: Performed By: #### L 100.0500, L500.2500, L503.7505 #### [facility] [address] [place], [address] Potassium [Moles/Vol] 3.5 mmol/L Normal 3.3-5.1 [facility] Comment on above: Performed By: #### L 100.0500, L500.2500, L503.7505 #### [facility] [address] [place], [address] Sodium [Moles/Vol] 140 mmol/L Normal 133-145 [facility] Comment on above: Performed By: #### L 100.0500, L500.2500, L503.7505 #### [facility] [address] [place], [address] Urea nitrogen [Mass/Vol] 25 mg/dL High 4-19 [facility] Comment on above: Performed By: #### L 100.0500, L500.2500, L503.7505 #### [facility] [address] [place], [address] Basophil percentageOrdered B y: Porfirio Jeff on 11-02-2024 Basophils/100 WBC (Bld) 0.6 % 0-1 [facility] CBC W/Diff, Automatedon 10-13 Absolute Lymph 2.29 X10 3/uL Normal 0.83-4.51 [facility] Comment on above: Performed By: #### L 501.9520, L506.0400 #### [facility] [address] [place], [address] Absolute Neut 3.8 X10 3/uL Normal 2.0-7.7 [facility] Comment on above: Performed By: #### L 501.9520, L506.0400 #### [facility] [address] [place], [address] Basophils/100 WBC (Bld) 0.6 % Normal 0-1 [facility] Comment on above: Performed By: #### L 501.9520, L506.0400 #### [facility] [address] [place], [address] Eosinophils/100 WBC (Bld) 1.6 % Normal 0-5 [facility] Comment on above: Performed By: #### L 501.9520, L506.0400 #### [facility] [address] [place], [address] Erythrocyte distribution width (RBC) [Ratio] 14.3 % Normal 11.6-14.6 [facility] Comment on above: Performed By: #### L 501.9520, L506.0400 #### [facility] [address] [place], [address] Hematocrit (Bld) [Volume fraction] 40.4 % Normal 37-47 [facility] Comment on above: Performed By: #### L 501.9520, L506.0400 #### [facility] [address] [place], [address] Hemoglobin (Bld) [Mass/Vol] 13.9 g/dL Normal 12.0-15.0 [facility] Comment on above: Performed By: #### L 501.9520, L506.0400 #### [facility] [address] [place], [address] IG% 0.300 Normal 0.0-0.9 [facility] Comment on above: Result Comment: IG% - Immature Granulocytes (promyelocytes, myelocytes and metamyelocytes) > 1% indicates that a LEFT SHIFT is Present. Performed By: #### L 501.9520, L506.0400 #### [facility] [address] [place], [address] Lymphocytes/100 WBC (Bld) 33.0 % Normal 19-41 [facility] Comment on above: Performed By: #### L 501.9520, L506.0400 #### [facility] [address] [place], [address] MCH (RBC) [Entitic mass] 28.7 pg Normal 27.0-32.0 [facility] Comment on above: Performed By: #### L 501.9520, L506.0400 #### [facility] [address] [place], [address] MCHC (RBC) [Mass/Vol] 34.4 g/dL Normal 32-36 [facility] Comment on above: Performed By: #### L 501.9520, L506.0400 #### [facility] [address] [place], [address] MCV (RBC) [Entitic vol] 83.5 fL Normal 81-99 [facility] Comment on above: Performed By: #### L 501.9520, L506.0400 #### [facility] [address] [place], [address] Monocytes/100 WBC (Bld) 9.4 % Normal 0-10 [facility] Comment on above: Performed By: #### L 501.9520, L506.0400 #### [facility] [address] [place], [address] Neutrophils/100 WBC (Bld) 55.1 % Normal 47-70 [facility] Comment on above: Performed By: #### L 501.9520, L506.0400 #### [facility] [address] [place], [address] Nucleated RBC (Bld) [#/Vol] 0 10*3/uL Normal 0-5 [facility] Comment on above: Performed By: #### L 501.9520, L506.0400 #### [facility] [address] [place], [address] Platelet mean volume (Bld) [Entitic vol] 11.0 fL Normal 6.2-12.0 [facility] Comment on above: Performed By: #### L 501.9520, L506.0400 #### [facility] [address] [place], [address] Platelets (Bld) [#/Vol] 196 10*3/uL Normal 150-450 [facility] Comment on above: Performed By: #### L 501.9520, L506.0400 #### [facility] [address] [place], [address] RBC (Bld) [#/Vol] 4.84 10*6/uL Normal 4.2-5.4 [facility] Comment on above: Performed By: #### L 501.9520, L506.0400 #### [facility] [address] [place], [address] RDW SD 43.5 fl Normal 35.1-43.9 [facility] Comment on above: Performed By: #### L 501.9520, L506.0400 #### [facility] [address] [place], [address] WBC (Bld) [#/Vol] 6.9 10*3/uL Normal 4.4-11.0 [facility] Comment on above: Performed By: #### L 501.9520, L506.0400 #### [facility] [address] [place], [address] Carbon dioxide, total [Moles /volume] in Central venous bloodOrdered By: Porfirio Jeff on 11-02-2024 CO2 [Moles/Vol] 25.6 mmol/L 21.0-32.0 [facility] Chloride assayOrdered By: Aster Jeff on 11-02-2024 Chloride [Moles/Vol] 101 mmol/L 98-108 [facility] Eosinophil percentageOrdered By: Porfirio Jeff on 11-02-2024 Eosinophils/100 WBC (Bld) 1.6 % 0-5 [facility] Erythrocyte distribution wid th ratioOrdered By: Porfirio Jeff on 11-02-2024 Erythrocyte distribution width (RBC) [Ratio] 14.3 % 11.6-14.6 [facility] Erythrocyte distribution wid th standard deviationOrdered By: Porfirio Jeff on 11-02-2024 Erythrocyte distribution width (RBC) [Ratio] 43.5 fl 35.1-43.9 [facility] Glomerular filtration rate ( GFR) estimation/1.73 sq m using serum, plasma, or whole bOrdered By: Porfirio Jeff on 11-02-2024 GFR/1.73 sq M.predicted among non-blacks MDRD (S/P/Bld) [Vol rate/Area] 54 mL/min/{1.73_m2} Low >60 [facility] Comment on above: mL/min/1.73m2 CKD-EP I Creatinine Equation (2020) Hematocrit Auto (Bld) [Volum e fraction]Ordered By: Porfirio Jeff on 11-02-2024 Hematocrit (Bld) [Volume fraction] 40.4 % 37-47 [facility] Hemoglobin A1con 11-02-2024 HbA1c (Bld) [Mass fraction] 5.6 % Normal <=5.6 [facility] Comment on above: Result Comment: Norm al < 5.7 % Prediabetic 5.7 - 6.4 % Diabetic >or= 6.5 % Please note range changes. Performed By: #### L 100.0500, L500.2500, L503.7505 #### [facility] [address] [place], [place], [id number] Hemoglobin A1c percentageOrd ered By: Porfirio Jeff on 11-02-2024 HbA1c (Bld) [Mass fraction] 5.6 % <5.7 [facility] Comment on above: Normal < 5.7 % Predi abetic 5.7 - 6.4 % Diabetic >or= 6.5 % Please note range changes. Hemoglobin measurementOrdere d By: Porfirio Jeff on 11-02-2024 Hemoglobin (Bld) [Mass/Vol] 13.9 g/dL 12.0-15.0 [facility] Immature granulocytes/100 WB C Auto (Bld)Ordered By: Porfirio Jeff on 11-02-2024 Immature granulocytes/100 WBC (Bld) 0.300 % 0.0-0.9 [facility] Comment on above: IG% - Immature Granu locytes (promyelocytes, myelocytes and metamyelocytes) > 1% indicates that a LEFT SHIFT is Present. MCV (mean corpuscular volume ) determinationOrdered By: Porfirio Jeff on 11-02-2024 MCV (RBC) [Entitic vol] 83.5 fL 81-99 [facility] Magnesiumon 11-02-2024 Magnesium [Mass/Vol] 2.3 mg/dL High 1.5-2.2 [facility] Comment on above: Performed By: #### L 100.0500, L500.2500, L503.7505 #### [facility] [address] [place], [place], [id number] Magnesium measurement (mass/ volume)Ordered By: Porfirio Jeff on 11-02-2024 Magnesium (Unsp spec) [Mass/Vol] 2.3 mg/dL High 1.5-2.2 [facility] Mean corpuscular hemoglobin (MCH) determinationOrdered By: Porfirio Jeff on 11-02-2024 MCH (RBC) [Entitic mass] 28.7 pg 27.0-32.0 [facility] Mean corpuscular hemoglobin concentration (MCHC) determinationOrdered By: Porfirio Jeff on 11-02-2024 MCHC (RBC) [Mass/Vol] 34.4 g/dL 32-36 [facility] Mean platelet volume determi nationOrdered By: Porfirio Jeff on 11-02-2024 Platelet mean volume (Bld) [Entitic vol] 11.0 fL 6.2-12.0 [facility] Monocyte percentageOrdered B y: Porfirio Jeff on 11-02-2024 Monocytes/100 WBC (Bld) 9.4 % 0-10 [facility] Natriuretic peptide.B prohor raj N-Terminal [Mass/volume] in Serum or PlasmaOrdered By: Porfirio Jeff on 11-02-2024 Natriuretic peptide.B prohormone N-Terminal [Mass/Vol] 69 pg/mL <900 [facility] Comment on above: Heart Failure Unlike ly: < 300 pg/mLHeart Failure Likely< 50 Years: > 450 pg/mL50-75 Years: > 900 pg/mL>75 Years: > 1800 pg/mL Neutrophil percentageOrdered By: Porfirio Jeff on 11-02-2024 Neutrophils/100 WBC (Bld) 55.1 % 47-70 [facility] Nucleated red blood cell per centageOrdered By: Porfirio Jeff on 11-02-2024 Nucleated RBC/100 WBC (Bld) [Ratio] 0 % 0-5 [facility] Platelet countOrdered By: Aster Jeff on 11-02-2024 Platelets (Bld) [#/Vol] 196 10*3/uL 150-450 [facility] Potassium measurement (mass/ volume)Ordered By: Porfirio Jeff on 11-02-2024 Potassium (Unsp spec) [Mass/Vol] 3.5 mmol/L 3.3-5.1 [facility] Pro- Brain NATRIURETIC PEPTI Hood 11-02-2024 Natriuretic peptide B (Bld) [Mass/Vol] 69 pg/mL Normal <=900 [facility] Comment on above: Result Comment: Hear t Failure Unlikely: < 300 pg/mL Heart Failure Likely < 50 Years: > 450 pg/mL 50-75 Years: > 900 pg/mL >75 Years: > 1800 pg/mL Performed By: #### L 100.0500, L500.2500, L503.7505 #### [facility] [address] [place], [place], [id number] RBC Auto (Bld) [#/Vol]Ordere d By: Porfirio Jeff on 11-02-2024 RBC (Bld) [#/Vol] 4.84 10*6/uL 4.2-5.4 [facility] Serum creatinine measurement (mass/volume)Ordered By: Porfirio Jeff on 11-02-2024 Creatinine [Mass/Vol] 1.16 mg/dL 0.70-1.20 [facility] Serum glucose measurement (m ass/volume)Ordered By: Porfirio Jeff on 11-02-2024 Glucose [Mass/Vol] 94 mg/dL 70-99 [facility] Serum or plasma calcium allison urement (mass/volume)Ordered By: Porfirio Jeff on 11-02-2024 Calcium [Mass/Vol] 9.5 mg/dL 7.6-11.0 [facility] Serum or plasma urea nitroge n measurement (mass/volume)Ordered By: Porfirio Jeff on 11-02-2024 Urea nitrogen [Mass/Vol] 25 mg/dL High 4-19 [facility] Sodium levelOrdered By: Porfirio Jeff on 11-02-2024 Sodium [Moles/Vol] 140 mmol/L 133-145 [facility] T4 Free Directon 11-02-2024 T4 FREE DIRECT 1.60 ng/dL High 0.76-1.46 [facility] Comment on above: Performed By: #### L 501.9520, L506.0400 #### [facility] [address] [place], [place], [id number] T4 freeOrdered By: Grant Morgan on 11-02-2024 Free T4 [Mass/Vol] 1.60 ng/dL High 0.76-1.46 [facility] TSH DL <= 0.005 mIU/L QnOrde red By: Grant Morgan on 11-02-2024 TSH Qn 2.940 uIU/mL 0.300-4.20 0 [facility] Thyroid Stim Hormone (TSH)on 11-02-2024 TSH 2.940 uIU/mL Normal 0.300-4.20 0 [facility] Comment on above: Performed By: #### L 501.9520, L506.0400 #### [facility] [address] [place], [address] White blood cell (WBC) count Ordered By: Porfirio Jeff on 11-02-2024 WBC (Bld) [#/Vol] 6.9 10*3/uL 4.4-11.0 [facility] Cardiology Visit Reporton Cardiology Visit Report [facility] [address] [place] [address] OFFICE VISIT Date of Service: 10/29/24 MR#: [id number] Acct: [id number] Name: JOELLEN GANT Rep #: [id number] : 1965 Provider: PIA agudelo Age/Sex: 59/F [facility] Status: Signed HPI HPI History of Present Illness Details: Ms Gant is a very pleasant 59-year-old morbidly obese female with irritable bowel syndrome, obstructive sleep apnea on CPAP, GERD, reactive airway disease, who presented to [facility] ER in 10/28/2018 with 2 months of substernal chest pain described as sharp and nonradiating. An EKG was performed on 10/28/2018 which showed normal sinus rhythm, poor R wave progression across the precordium and could not rule out old anterior wall myocardial infarction versus lead misplacement. Patient was then admitted to the hospital for chest pain and underwent a left and right heart catheterization to rule out coronary occlusive disease which took place on 01/23/2019. The patient had relatively normal coronary arteries and normal right heart pressures and normal LV function. She was treated with antihypertensive medications. She states diagnosis of COVID-19 in August 2021. She acknowledges daily, sharp chest discomfort. She also describes this as dull, tight, and squeezing. She wakes up with this pain. She is locates this midsternal and through her back. This is continuous. She acknowledges palpitations describes as fast. She acknowledges bilateral lower extremity edema and occasionally in her hands. She acknowledges occasional shortness with activity such as walking. She denies shortness of breath at rest, orthopnea, cough, or PND. She acknowledges dizziness. She denies lightheadedness, near-syncope, syncope, or weakness. She acknowledges intermittent fatigue. Intake Vital Signs 08/27/24 14:16 10/29/24 16:03 Height 5 ft 5 in 5 ft 5 in Weight: 217 lb 213 lb BMI 36.1 35.4 BP 128/77 H Blood Pressure Location Lt brachial Position Sitting Respiration 16 Pulse 60 Pulse Source NIBP Intake Visit Reasons: Chest pain Brush Holder Inspector Required: No Is patient in pain?: Yes (Chest into back and shoulders) Pain scale (1-10): 6 Allergies Iodinated Contrast Media (CT) Allergy (Unknown, Verified 10/26/24 15:01) rash, arm swelling Seasonal Allergies: Uncoded Allergy (Unknown, Verified 10/29/24 16:07) Unknown Medications ???Medication ???Instructions ???Recorded ???Confirmed ???Type hydrocortisone 2.5 % topical cream 1 applic topical BID skin 10/29/24 History albuterol sulfate 90 mcg/actuation 2 puff inhalation Q4H PRN Sob / Or 02/13/19 10/29/24 Rx aerosol inhaler (ProAir HFA) Wheezing #18 grams fluticasone propionate 50 2 spray intranasal DAILY nasal 10/29/24 Rx mcg/actuation nasal dryness #9.9 grams spray,suspension (Allergy Relief (fluticasone)) ketotifen fumarate 0.025 % (0.035 1 drp ophthalmic (eye) BID PRN 10/29/24 History %) eye drops (Eye Itch Relief) allergy symptoms olopatadine 0.1 % eye drops 1 drp ophthalmic (eye) BID PRN 10/29/24 History itching fluticasone propionate 220 2 puff inhalation BID 03/29/23 History mcg/actuation HFA aerosol inhaler potassium chloride 10 mEq 10 meq PO DAILY #90 caps 08/25/23 10/29/24 Rx capsule,extended release jskfzgjx-ybel-fyj-iron 18 mg-folic 1 tab PO DAILY 01/03/24 10/29/24 History 240 mcg-vit K 120 mcg-herbal tablet ([employer]) cholecalciferol (vitamin D3) 50 50 mcg PO DAILY 06/19/24 10/29/24 History mcg (2,000 unit) capsule aspirin 81 mg tablet,delayed 81 mg PO DAILY@0800 #90 tabs 07/3110/29/24 Rx release atorvastatin 20 mg tablet 20 mg PO DAILY #90 tabs 07/31/24 0 10/29/24 Rx carvedilol 3.125 mg tablet 3.125 mg PO BID heart #180 tabs 10/29/24 Rx cholestyramine (with sugar) 4 gram 4 g PO QHS #368.76 grams 5 10/29/24 Rx oral powder xahmnh-ssacrzij-elmurmi 3 cap PO QAC #300 caps 07/31/24 Rx 36,000-114,000-180,000 unit capsule,delay rel (Creon) nitroglycerin 0.4 mg sublingual 0.4 mg sublingual Q5M PRN 07/31/24 10/29/24 Rx tablet Cardiac/Chest Pain #25 tabs omeprazole 40 mg capsule,delayed 40 mg PO QAM #90 caps 07/31/24 Rx release pantoprazole 40 mg tablet,delayed 40 mg PO BID #180 tabs 07/31/24 0 10/29/24 Rx release (Protonix) sucralfate 1 gram tablet 1 g PO TID #60 TABLETS 07/31/24 Rx torsemide 20 mg tablet 20 mg PO BID #180 tabs 07/31/24 Rx colestipol 1 gram tablet 4 g (4 x 1 gram) PO DAILY diarrhea 10/22/24 10/29/24 Rx #120 tabs levothyroxine 88 mcg tablet 88 mcg PO QHS 10/26/24 10/29/24 Hi story (Unithroid) dicyclomine 20 mg tablet 20 mg P (more content not included)... Normal [facility] MR/PATTushar 10-26-2024 MR/PAT.[facility] Medical Records Department [address] [place] [address] PAT - Anesthesia 10/26/24 1537 MR#: [id number] Acct: [id number] Name: JOELLEN GANT Rep #: [id number] : 1965 59 From: Pamela Hawkins MD PCP: Dr. 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 When Was Last Pacemaker Check QUESTION #4 FULL TEXT: You/Your Family Experience fever (hyperthermia) with Anesthesia Last Oral Intake Last Oral intake: Last Oral Intake NPO since Meds taken in AM with sips of water? Meds patient instructed to take am of surgery PONV PONV - international relations professor: PONV - international relations professor Female Yes 10/26/24 15:10 HX of Motion Sickness Yes 10/26/24 15:10 HX of N/V After Surgery Yes 10/26/24 15:10 Non-Smoker Yes 10/26/24 15:10 Duration of Surgery greater No 10/26/24 15:10 than 60 minutes Number of Risk Factors 4 10/26/24 15:10 PONV Score Severe Risk 10/26/24 15:10 Height Weight Height Weight: Anesthesia: Height Weight Height 5 ft 5 in 08/27/24 14:16 Respiratory Assessment Respiratory Assessment - international relations professor: Respiratory Tract Infection Hx - international relations professor Hx Respiratory Tract Infection No 10/26/24 15:10 STOP Sleep Apnea STOP Sleep Apnea - international relations professor: STOP Sleep Apnea - international relations professor Hx Hypertension No 10/26/24 15:10 Hx Sleep Apnea Yes 10/26/24 15:10 CPAP No 10/26/24 15:10 BIPAP Yes 10/26/24 15:10 Do you snore loudly (louder than talking or can be heard Do you often feel tired/ fatigued/ sleepy during daytime? Has anyone observed you stop breathing during sleep? STOP Results Positive 10/26/24 15:10 QUESTION #5 FULL TEXT : Do you snore loudly (louder than talking or can be heard through closed doors)? 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 Specify any problems Hx of Preganancy in last 3 No 10/26/24 15:10 Months Nurse Filling Out Transfusion DSCHRIBER 10/26/24 15:10 Questions: Date: 10/26/24 10/26/24 15:10 Time: 15:16 10/26/24 15:10 Patient unable to answer at this time (ie. confused, unrespo /Reproduction History /Reproductive History - international relations professor: /Reproductive Hx- international relations professor Hx Now No 10/26/24 15:10 Gestational Age (in weeks): EDC: Hx Hx Para Hx Section SAB No 10/26/24 15:10 PFSH Medical History (Updated 10/26/24 @ 15:29 by Honey Freedman) Loss of hearing Restless legs Pancreatitis, reflux Leg cramps Diabetes Thyroid disease Arthritis History of renal disease Back pain Injury of back Migraine headache History of hiatal hernia Gastric reflux BiPAP (biphasic positive airway pressure) dependence History of pain when walking History of edema Cardiology follow-up encounter Bloating Diarrhea History of vaginal delivery Loose, teeth Wears glasses Bruises easily History of ectopic Post-menopausal Ulcer Former smoker History of echocardiogram History of stress test Atrial fibrillation Asthma Home Medications ???Medication ???Instructions ???Recorded ???Last Taken ???Type hydrocortisone 2.5 % topical cream 1 applic topical BID skin Unknown History albuterol sulfa (more content not included)... Normal [facility] CNOVon 10-17-2024 CNOV Office Visit (INTMWS ) JOELLEN GANT ([id number]) 1965 F CHT Date Time Provider Department 10/17/24 2:20 PM SAM NULL INTMWS During your visit today, we recorded the following information about you: Pulse Respiration Blood pressure Weight 80/minute 18/minute 124/80 95.8 kg Height 1.568 m Sam Null MD 10/18/2024 2:03 AM Signed Subjective Joellen Gant is a 59 year old female. Patient presents with: Yearly Exam Joellen continued with significant pain in her right lower back, radiating to her right leg. She had significant pain in the right lateral leg since her fall this past spring. Her LS spine xrays and hip xrays on July 2014 showed no acute process, but she was concerned about her right leg due to the pain. She did see Dr. Darleen Reynoso for pain management and was given tramadol short term. She was scheduled for lower back injections 10/29/24. She also complained of recurrent chest pain radiating to the back for one week, not related to physical activity. [facility]. Other specialists: 1) Porfirio Jeff CNP, ([facility]). 2) Sridhar Byrnes MD, ([facility]). 3) Brittany Anderson CNP, ([facility]). 4) Grant Morgan MD, ([facility]). 5) Chase Paulino MD/ Britni Lockwood, ERICK, ([facility] Nephrology). 6) Marii Herzog MD, (Bariatric Surgery). 7) Lisbet Steel, [facility] Psychology, (Bariatric program). 8) Stephanie George PA-C, ([facility] Orthopedics). 9) Darleen Reynoso MD ([facility] [place]) 10)Ethan Betancur MD (Ophthal[facility]) PAST MEDICAL HISTORY Diagnosis Date Acquired hypothyroidism 04/16/[address] Grant Morgan managing Asthma (HCC) 06/13/2008 Atypical chest pain 01/2019 heart cath normal Bile-induced gastritis 04/08/2021 Calcium deposits in tendon and bursa right knee Carpal tunnel syndrome, bilateral 10/16/2015 Chronic cholecystitis 07/22/2020 Chronic midline low back pain without sciatica 07/31/2015 Cirrhosis of liver without ascites, unspecified hepatic cirrhosis type (HCC) 11/21/2023 CKD stage 3a, GFR 45-59 ml/min ([facility]) Colon polyp 07/17/2020 Dermatophytosis of the body Edema 06/13/2008 GERD (gastroesophageal reflux disease) 07/29/2010 Hiatal hernia 07/17/2020 medium sized seen on EGD Infectious mononucleosis Irregular menstrual cycle Irritable bowel syndrome with diarrhea 08/04/2015 Morbid obesity with BMI of 45.0-49.9, adult ([facility]) Obesity, Class III, BMI 40-49.9 (morbid obesity) (HCC) 07/27/2017 Stage 3a chronic kidney disease (HCC) 04/08/2021 Tobacco use disorder Unspecified hearing loss left ear - wears hearing aid Unspecified hypothyroidism PAST SURGICAL HISTORY Procedure Laterality Date 48 HOUR PH STUDY 07/21/2023 Dr. Herzog COLONOSCOPY SCREENING 07/17/2020 CT BIOPSY LIVER NEEDLE PERC 01/04/2024 EGD WITH BIOPSY(S) 07/17/2020 medium sized hiatal hernia; Dr. Escalante EGD WITH BIOPSY(S) 07/21/2023 3 cm hiatal hernia; Dr. Herzog ESOPHAGEAL MANOMETRY 07/21/2023 Dr. Herzog LAPS SURG CHOLECYSTECTOMY W/CHOLANGIOGRAPHY 07/22/2020 [facility] LEFT HEART CATH,PERCUTANEOUS 01/23/2019 L AND R heart catheterization normal. FAMILY HISTORY Problem Relation Age of Onset Hypertension Mother Heart Attack Mother Scoliosis Mother Back Pain Mother Arrhythmia Mother atrial fibrillatio Hypertension Father Cancer Father brain Seizures Sister during youth Psychiatry Sister Seizures Sister Hypertension Sister Polycystic Ovary Syndrome Sister Psychiatry Sister Arthritis Sister hip No Known Problems Sister Hypertension Brother Seizures Brother Diabetes Maternal Grandmother COPD Maternal Grandfather Social History Tobacco Use Smoking status: Former Current packs/day: 0.00 Average packs/day: 1 pack/day for 15.0 years (15.0 ttl pk-yrs) Types: Cigarettes Start date: 05/30/1994 Quit date: 05/30/2009 Years since quittin.3 Smokeless tobacco: Never Tobacco comments: started age 16, quit 2010, 1PPD Vaping Use Vaping status: Never Used Substance Use Topics Alcohol use: Not Currently Drug use: Never ALLERGIES Allergen Reactions Iv Contrast [Iodine] Swelling Seasonal Allergies Intolerance Current Outpatient Medications Medication Sig hydrocortisone 2.5 % cream Apply 1 application to affected area two times a day as needed (Apply sparingly to rash of hands, arms, legs for 1 week.). carvedilol (COREG) 3.125 mg tablet Take 1 tablet by mouth two times a day. [facility] dicyclomine (BENTYL) 20 mg tablet Take 1 tablet by mouth three times a day as needed (per [facility]). torsemide (DEMADEX) 20 mg tablet Take 1 tablet by mouth two times a day. [facility]. CPAP BiPAP 9/5 cm per [facility]. cholestyramine-sucrose (QUESTRAN) (more content not included)... Normal [facility] [id number] 10-17-2024 ECG01 Ventricular Rate : 5 5 BPM Atrial Rate : 55 BPM P-R Interval : 196 ms QRS Duration : 100 ms Q-T Interval : 400 ms QTC Calculation(Bazett) : 382 ms Calculated P Bandana : 42 degrees Calculated R Bandana : -30 degrees Calculated T Bandana : 7 degrees SINUS BRADYCARDIA WITH SINUS ARRHYTHMIA LEFT AXIS DEVIATION POOR R WAVE PROGRESSION Confirmed by MD PERRI, QARAB ([id number]) on 10/18/2024 9:24:56 AM NAME : JOELLEN GANT PID : [id number] : 1965 Gender : Female Race : ORD : Procedure Date : Oct 17 2024 15:08:50 Edit Date : Oct 18 2024 09:24:57 Diagnosis: SINUS BRADYCARDIA WITH SINUS ARRHYTHMIA LEFT AXIS DEVIATION POOR R WAVE PROGRESSION Confirmed by MD RAYO QARAB ([id number]) on 10/18/2024 9:24:56 AM Test Reason : Location : 185 : WO Overread By : MD RAYO QARAB Edited By : MD RAYO QARAB Referred By : Sam Null Acquired by : Chiquita Peterson [facility] XR TIBIA FIBULA 2V AP/LAT RT on 10-17-2024 XR TIBIA FIBULA 2V AP/LAT RT * * *Final Report* * * DATE OF EXAM: Oct 17 2024 5:00PM WOX [id number] - XR TIBIA FIBULA 2V AP/LAT RT / PROCEDURE REASON: Right leg pain * * * * Physician Interpretation * * * * EXAMINATION / TECHNIQUE: XR TIBIA FIBULA 2V AP/LAT RT HISTORY: Continued pain in right distal tib-fib after injury in July. Right leg pain COMPARISON: 02/21/2023. RESULT: No acute fracture or osseous malalignment is identified. 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 There is medial and patellofemoral compartment knee osteoarthritis. IMPRESSION: No acute bony abnormality or significant change from the 2022 exam. Climatologist: [facility] Transcribe Date/Time: Oct 24 2024 7:37P Dictated by : EDUARDO LINARES MD This examination was interpreted and the report reviewed and electronically signed by: EDUARDO LINARES MD on Oct 24 2024 7:38PM EST [id number] Normal [facility] Low Dose CT Lung Screeningon 09-21-[address] Lung Screening [facility] [address] [place] [address] Lung Screening MR#: [id number] Acct: [id number] Name: JOELLEN GANT Rep #: [id number] : 1965 F 59 From: Douglas Cook MD PCP: Dr. Sam Null MD Status: REG CLI Study: Low Dose CT Lung Screening Date of Exam: 09/21 Exam# [id number] Ordering Dr: Brittany Anderson NP SHIPFITTER APPRENTICE-C PROCEDURE: LOW DOSE CT LUNG SCREENING 09/21/2024 REASON FOR EXAM: QUIT 05/2009 TECHNIQUE: LOW DOSE CT LUNG SCREENING Coronal and Sagittal reconstruction series were provided. One or more dose reduction techniques were used (e.g., Automated exposure control, adjustment of the mA and/or kV according to patient size, use of iterative reconstruction technique). REFERENCE L[facility] Lung-RADS RAD[facility] DOSE SUMMARY: CTDlvol: 4.0 mGy DLP: 111 mGycm COMPARISON: CT chest on 04/13/2023 FINDINGS: Lymph Nodes:No suspicious lymphadenopathy. Heart and Vasculature:Normal heart size without significant coronary calcification. Lungs and Airways: Central airways are clear. There is a solid nodule in the right upper lobe measuring 2 mm (series 2, image 74), unchanged. Pleura:No effusion Upper Abdomen:Unremarkable Bones:Degenerative changes of the thoracic spine. CT/Low Dose CT Lung Screening IMPRESSION: Lung-RADS Category 2: Benign. Recommend continued annual screening with low-dose CT. Reading Location: [id number] CC: SHIPFITTER APPRENTICE-C Brittany Anderson; Dr. Sam Null MD [facility]: [facility] ([facility]AGR ) STALINJOELLEN ([id number]) 1965 F CHT Date Time Provider Department 09/13/24 1:00 PM PAMELA LOPEZ PSYAGR During your visit today, we recorded the following information about you: Pamela Lopez, PhD 09/13/2024 1:48 PM Signed Neuropsychology Consultation Name: Joellen Gant [facility] Dates of Service: 08/14/2024 (testing), 09/13/2024 (feedback) Referral: This is a 59-year-old, left-handed woman referred for a neuropsychological evaluation by Dr. Lisbet Steel (psychology). She is pursuing bariatric surgery. The purpose of the evaluation is to assess her current neurocognitive functioning and to inform clearance for bariatric surgery. She presented unaccompanied and provided the history herself. This evaluation was conducted for treatment planning purposes only and is not valid for forensic, disability, or workers' compensation purposes. Details of the patient's history are already known to the referral source and are only briefly summarized. Please see patient's medical records for more detailed information. Procedures: Available medical records were obtained and reviewed. Verbal informed consent was obtained prior to the clinical interview following a discussion of the nature of the evaluation, test procedures, risks and benefits, professional records, and confidentiality. A clinical interview was then conducted with the patient, and the following tests were administered by a trained assistant refinery operator: WRAT-5: Word Reading, Math Computation; WAIS-IV: Block Design, Similarities, Digit Span, Matrix Reasoning, Vocabulary, Symbol Search, Coding; NAB: Naming, Daily Living Memory; HVLT-R; BVMT-R; RBANS: Figure Copy, Line Orientation; Phonemic Fluency; Semantic Fluency; TMT AANDB; DKEFS: Color Word Interference Test; SRT; DCT; PHQ-9, PAULA-7. The testing was scored and interpreted. A follow-up appointment was held to review the results, and this report was finalized. History AND Clinical Interview: Cognitive Complaints: Reported longstanding cognitive difficulties but her description was difficult to follow. Endorsed problems with STM, LTM, and attention. Concerned that her memory is getting worse and she is worried. Physical Complaints: Chronic pain, currently 4/10 today, treated with gabapentin, recently referred to pain specialist. Psychological Complaints AND History: Reported some stress with her current living situation. Denied prior psychiatric diagnoses or treatments. Denied SI/HI. See psychology notes for additional information. Daily Functioning: Currently lives with her mother, brother, and sister. Plans to move soon. Stopped working 1.5 years ago, receives SSDI. Independent in all IADLs. 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 During the day she goes on walks and plays with her dogs. Sleep: Reported insomnia and VETO. Unsure how many hours she sleeps per night. Has upcoming sleep study scheduled to determine if she still needs CPAP. Substance Use: Denied alcohol, tobacco, recreational drug use, or history of substance abuse. Developmental AND Occupational History: Early developmental history unremarkable. Monolingual Kyrgyz speaker. 9 years of formal education, no GED. Attended public schools. Learning difficulties in school, thinks she was in special education but was not sure. May have repeated kindergarten but also not sure. Reported childhood attention/behavioral difficulties, believes she has undiagnosed ADHD. Noted that all 7 of her children have it. 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 Prior Relevant Workup: -No prior cognitive screeners, neuropsychological testing, or brain imaging on file. -Recent B12, folate WNL. TSH abnormal - recommended to follow up with PCP Past Medical History: Acquired hypothyroidism 04/16/[address] Grant Morgan managing Asthma (HCC) 06/13/2008 Atypical chest pain 01/2019 heart cath normal Bile-induced gastritis 04/08/2021 Calcium deposits in tendon and bursa right knee Carpal tunnel syndrome, bilateral 10/16/2015 Chronic cholecystitis 07/22/2020 Chronic midline low back pain without sciatica 07/31/2015 Cirrhosis of liver without ascites, unspecified hepatic cirrhosis type (HCC) 11/21/2023 CKD stage 3a, GFR 45-59 ml/min ([facility]) Colon polyp 07/17/2020 Dermatophytosis of the body Edema 06/13/2008 GERD (gastroesophageal reflux disease) 07/29/2010 Hiatal hernia 07/17/2020 medium sized seen on EGD Infectious mononucleosis Irregular menstrual cycle Irritable bowel syndrome with diarrhea 08/04/2015 Morbid obesity with BMI of 45.0-49.9, adult ([facility]) Obesity, Class III, BMI 40-49.9 (morbid obesity) ([facility]) 07/27/2017 Stage 3a chronic kidney disease (HCC) (more content not included)... Normal [facility] [place] 09-13-2024 ERICK Telephone (PSYAGR) TARIQJOELLEN Linares ([id number]) 1965 F CHT Date Time Provider Department 09/13/24 PAMELA LOPEZ During your visit today, we recorded the following information about you: Urszula Rose 09/13/2024 2:[address] Lopez, mailed Neuropsych testing results to the patient. Allergies As of Date: 09/13/2024 Noted Allergy Reaction IV CONTRAST (IODINE) 04/14/2023 7 - Swelling SEASONAL ALLERGIES 04/08/2021 5 - Intolerance Date Reviewed: 08/17/2024 Reviewed by: Salena Cavazos RN - Fully Assessed Reason for Visit: Patient Update [1234] Prescriptions as of 09/13/2024 - topiramate (TOPAMAX) 25 mg tablet Take 2 tablets by mouth once daily. - gabapentin (NEURONTIN) 300 mg capsule Take 1 capsule by mouth daily at bedtime for 30 days. - albuterol HFA (PROAIR HFA) 90 mcg/actuation [...] hands, arms, legs for 1 week.). - carvedilol (COREG) 3.125 mg tablet Take 1 tablet by mouth two times a day. [facility]. - dicyclomine (BENTYL) 20 mg tablet Take 1 tablet by mouth three times a day as needed (per [facility]). - torsemide (DEMADEX) 20 mg tablet Take 1 tablet by mouth two times a day. [facility]. - CPAP BiPAP 9/5 cm per [facility]. - cholestyramine-sucrose (QUESTRAN) 4 gram powder TAKE 4 GRAMS BY MOUTH AT BEDTIME. ADMINISTER WITH A MEAL. AVOID O... (REFER TO PRESCRIPTION NOTES). - sucralfate (CARAFATE) 1 gram tablet Take one tablet in the morning and one tablet in the afternoon - cholecalciferol (VITAMIN D3) 50 mcg (2,000 unit) tablet Take 1 tablet by mouth once daily. - CREON 36,000-114,000- 180,000 unit delayed release capsule 1 capsule with meals and at bedtime. 2-3 capsules with meals and 1-2 with snacks - hyoscyamine (LEVSIN) 0.125 mg tablet Take 0.125 mg by mouth every 6 hours as needed. 1-2 tablets four times daily as needed - pantoprazole DR (PROTONIX) 40 mg tablet Take 1 tablet by mouth two times a day. Take on empty stomach, 1/2 hr before meal. - omeprazole (PRILOSEC) 40 mg capsule Take 1 capsule by mouth once daily. - levothyroxine (SYNTHROID) 100 mcg tablet Take 1 tablet by mouth once daily. Per [facility]. - colestipol (COLESTID) 1 gram tablet Take 2 tablets by mouth two times a day. - spironolactone (ALDACTONE) 25 mg tablet Take 1 tablet by mouth every afternoon. Per [facility] - olopatadine (PATANOL) 0.1 % ophthalmic solution - EYE ITCH RELIEF 0.025 % (0.035 %) ophthalmic solution instill 1 drop into both eyes twice a day if needed - nitroglycerin sublingual (NITROQUICK) 0.4 mg SL tablet 0.4 mg. - aspirin, enteric coated (ASPIRIN, ENTERIC COATED) 81 mg EC tablet Take 1 tablet by mouth once daily. - atorvastatin (LIPITOR) 20 mg tablet Take 20 mg by mouth once daily. - potassium chloride SR (MICRO-K) 10 mEq CR capsule Take 1 capsule by mouth once daily. Problem List As Of Date 09/13/2024 Noted Resolved Complete spontaneous without mention o*01/01/2005 [...] gastritis [K29.60] 04/08/2021 Colon polyp [K63.5] 07/17/2020 Acquired hypothyroidism [E03.9] 04/16/2024 Right renal atrophy [N26.1] 01/27/2023 10/14/2023 Eczema [L30.9] 07/15/2023 No appetite [R63.0] 07/15/2023 Cirrhosis of liver without ascites, unspecified*11/21/2023 Acute pancreatitis (HCC) [K85.90] 11/22/2023 History of right and left heart catheterization*01/23/2019 Dietary counseling and surveillance [Z71.3] 06/20/2024 BMI 39.0-39.9,adult [Z68.39] 06/20/2024 Encounter Status:Closed by URSZULA ROSE on 09/13/24 [facility] [place] 09-06-2024 ERICKN Telephone (4CQ) JOELLEN GANT ([id number]) 1965 F CHT Date Time Provider Department 09/06/24 SAM NULL 4CQ During your visit today, we recorded the following information about you: Cathy Luna 09/06/2024 1:04 PM Signed Pt states that she needs to communicate with her pain management Dr. Greene to confirm its ok to continue keep filling gabapentin. Pt states messages were sent from Dr. Greene on 09/04/24 as well. Please advise, Thank you Erlinda Roper MA 09/11/2024 10:51 AM Signed Spoke to Dr. Greene office and they advised they are waiting for her tox/pain screen to come back before deciding if further prescription can be dispensed. GERALD Limon Stephanie, RN 09/11/2024 11:15 AM Signed Patient calls and states that she continues to be in a lot of pain. Advised Patient that Dr. Reynoso office is waiting for tox screen to come back before prescribing medications. Patient states that is not right Dr. Reynoso is waiting for Dr. Null to say he isn't going to prescribe anymore medication. Advised patient again that Dr. Reynoso office is waiting on Tox Screen. Patient voiced understanding and will give that office a call back. Patient states that she is down to 209 pounds. Lara Corbin RN Allergies As of Date: 09/06/2024 Noted Allergy Reaction IV CONTRAST (IODINE) 04/14/2023 7 - Swelling SEASONAL ALLERGIES 04/08/2021 5 - Intolerance Date Reviewed: 08/17/2024 Reviewed by: Salena Cavazos, KATIA - Fully Assessed Prescriptions as of 09/11/2024 - topiramate (TOPAMAX) 25 mg tablet Take 2 tablets by mouth once daily. - gabapentin (NEURONTIN) 300 mg capsule Take 1 capsule by mouth daily at bedtime for 30 days. - albuterol HFA (PROAIR HFA) 90 mcg/actuation [...] hands, arms, legs for 1 week.). - carvedilol (COREG) 3.125 mg tablet Take 1 tablet by mouth two times a day. [facility]. - dicyclomine (BENTYL) 20 mg tablet Take 1 tablet by mouth three times a day as needed (per [facility]). - torsemide (DEMADEX) 20 mg tablet Take 1 tablet by mouth two times a day. [facility]. - CPAP BiPAP 9/5 cm per [facility]. - cholestyramine-sucrose (QUESTRAN) 4 gram powder TAKE 4 GRAMS BY MOUTH AT BEDTIME. ADMINISTER WITH A MEAL. AVOID O... (REFER TO PRESCRIPTION NOTES). - sucralfate (CARAFATE) 1 gram tablet Take one tablet in the morning and one tablet in the afternoon - cholecalciferol (VITAMIN D3) 50 mcg (2,000 unit) tablet Take 1 tablet by mouth once daily. - CREON 36,000-114,000- 180,000 unit delayed release capsule 1 capsule with meals and at bedtime. 2-3 capsules with meals and 1-2 with snacks - hyoscyamine (LEVSIN) 0.125 mg tablet Take 0.125 mg by mouth every 6 hours as needed. 1-2 tablets four times daily as needed - pantoprazole DR (PROTONIX) 40 mg tablet Take 1 tablet by mouth two times a day. Take on empty stomach, 1/2 hr before meal. - omeprazole (PRILOSEC) 40 mg capsule Take 1 capsule by mouth once daily. - levothyroxine (SYNTHROID) 100 mcg tablet Take 1 tablet by mouth once daily. Per [facility]. - colestipol (COLESTID) 1 gram tablet Take 2 tablets by mouth two times a day. - spironolactone (ALDACTONE) 25 mg tablet Take 1 tablet by mouth every afternoon. Per [facility] - olopatadine (PATANOL) 0.1 % ophthalmic solution - EYE ITCH RELIEF 0.025 % (0.035 %) ophthalmic solution instill 1 drop into both eyes twice a day if needed - nitroglycerin sublingual (NITROQUICK) 0.4 mg SL tablet 0.4 mg. - aspirin, enteric coated (ASPIRIN, ENTERIC COATED) 81 mg EC tablet Take 1 tablet by mouth once daily. - atorvastatin (LIPITOR) 20 mg tablet Take 20 mg by mouth once daily. - potassium chloride SR (MICRO-K) 10 mEq CR capsule Take 1 capsule by mouth once daily. Problem List As Of Date 09/06/2024 Noted Resolved Complete spontaneous without mention o*01/01/2005 [...] diarrhea [K58.0] 08/04/2015 Carpal tunnel syndrome, bilateral (more content not included)... Normal [facility] Gastroenterology Visit Repor ton 08-27-2024 Gastroenterology Visit Report [facility] [address] [place] [address] OFFICE VISIT Date of Service: 08/27/24 MR#: [id number] Acct: [id number] Name: JOELLEN GANT ANN Rep #: [id number] : 1965 Provider: Kemar Byrnes DO Age/Sex: 59/F Location: [facility] Status: Signed Intake Vital Signs 03/02/24 11:12 05/03/24 12:00 08/13/24 14:36 08/27/24 14:16 Height 5 ft 5 in 5 ft 5 in 5 ft 5 in 5 ft 5 in Weight: 217 lb BMI 36.1 Intake Visit Reasons: TEST RESULTS Allergies Iodinated Contrast Media (CT) Allergy (Unknown, Verified 08/13/24 14:39) rash, arm swelling Medications ???Medication ???Instructions ???Recorded ???Confirmed ???Type hydrocortisone 2.5 % topical cream 1 applic topical BID skin 08/27/24 History albuterol sulfate 90 mcg/actuation 2 puff inhalation Q4H PRN Sob / Or 02/13/19 08/27/24 Rx aerosol inhaler (ProAir HFA) Wheezing #18 grams fluticasone propionate 50 2 spray intranasal DAILY nasal 08/27/24 Rx mcg/actuation nasal dryness #9.9 grams spray,suspension (Allergy Relief (fluticasone)) ketotifen fumarate 0.025 % (0.035 1 drp ophthalmic (eye) BID PRN 08/27/24 History %) eye drops (Eye Itch Relief) allergy symptoms olopatadine 0.1 % eye drops 1 drp ophthalmic (eye) BID PRN 08/27/24 History itching diclofenac sodium 75 mg 75 mg PO BID 03/29/23 08/27/24 His tory tablet,delayed release fluticasone propionate 220 2 puff inhalation BID 03/29/23 History mcg/actuation HFA aerosol inhaler tramadol 50 mg tablet 50 mg PO Q6H PRN pain 03/29/23 History potassium chloride 10 mEq 10 meq PO DAILY #90 caps 08/25/23 08/27/24 Rx capsule,extended release Held on 01/03/24. Instructions: Ordered nrnodbly-rylg-hyn-iron 18 mg-folic 1 tab PO DAILY 01/03/24 08/27/24 History 240 mcg-vit K 120 mcg-herbal tablet ([employer]) phentermine 30 mg capsule 30 mg PO QDAY #30 caps 03/02/24 Rx cholecalciferol (vitamin D3) 50 50 mcg PO DAILY 06/19/24 08/27/24 History mcg (2,000 unit) capsule aspirin 81 mg tablet,delayed 81 mg PO DAILY@0800 #90 tabs 07/3108/27/24 Rx release atorvastatin 20 mg tablet 20 mg PO DAILY #90 tabs 07/31/24 0 08/27/24 Rx carvedilol 3.125 mg tablet 3.125 mg PO BID heart #180 tabs 08/27/24 Rx cholestyramine (with sugar) 4 gram 4 g PO QHS #368.76 grams 5 08/27/24 Rx oral powder colestipol 1 gram tablet 4 g (4 x 1 gram) PO DAILY diarrhea 07/31/24 08/27/24 Rx #120 tabs dicyclomine 20 mg tablet 20 mg PO TID PRN for abdominal 08/27/24 Rx pain #90 TABLETS hyoscyamine sulfate 0.125 mg tablet 0.125 mg PO BID-QID PRN for 08/27/24 Rx indigestion #120 TABLETS repggc-kvyjpcza-gdczqrx 3 cap PO QAC #300 caps 07/31/24 Rx 36,000-114,000-180,000 unit capsule,delay rel (Creon) nitroglycerin 0.4 mg sublingual 0.4 mg sublingual Q5M PRN 07/31/24 08/27/24 Rx tablet Cardiac/Chest Pain #25 tabs omeprazole 40 mg capsule,delayed 40 mg PO QAM #90 caps 07/31/24 Rx release pantoprazole 40 mg tablet,delayed 40 mg PO BID #180 tabs 07/31/24 0 08/27/24 Rx release (Protonix) spironolactone 25 mg tablet 25 mg PO DAILY #90 tabs 07/31/24 0 08/27/24 Rx sucralfate 1 gram tablet 1 g PO TID #60 TABLETS 07/31/24 Rx torsemide 20 mg tablet 20 mg PO BID #180 tabs 07/31/24 Rx gabapentin 300 mg capsule 300 mg PO QHS 08/13/24 08/27/24 Hi story levothyroxine 88 mcg tablet 88 mcg PO QDAY #90 tabs 08/13/24 0 08/27/24 Rx (Unithroid) topiramate 50 mg tablet 100 mg PO QDAY 08/13/24 08/27/24 H istory [facility] Medical History (Updated 08/14/24 @ 07:[address] Grant Morgan MD) Obesity Diabetes Thyroid disease Arthritis History of renal disease Back pain Injury of back Migraine headache Difficulty swallowing Difficulty chewing History of hiatal hernia Heartburn Gastric reflux BiPAP (biphasic positive airway pressure) dependence Sleep apnea Shortness of breath on exertion History of pain when walking History of edema Cardiology follow-up encounter Chest pain Hypothyroidism (acquired) Bloating Diarrhea Hiatal hernia Reflux gastritis History of vaginal delivery Loose, teeth Wears glasses Hearing loss, left Bruises easily History of ectopic Post-menopausal Anxiety Ulcer Former smoker History of echocardiogram History of stress test Atrial fibrillation Cholelithiasis with chronic cholecystitis Generalized abdominal pain Pain due to vascular prosthetic devices, implants and grafts, sequela RUQ abdominal pain Mid back pain Bradycardia Palpitations Hair loss Fatigue Hypersomnia 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 apnea Edema (more content not included)... Normal [facility] CNOVon 08-17-2024 CNOV Office Visit (KIDMST ) JOELLEN GANT ([id number]) 1965 F T Date Time Provider Department 08/17/24 2:00 PM [facility] During your visit today, we recorded the following information about you: Pulse Blood pressure Weight 60/minute 104/71 98 kg Britni Lockwood, RESEARCH INSTRUMENTATION TECHNICIAN.LAST PATTERN GRADER 08/21/2024 1:59 PM Signed [facility] SERVICE DATE: 08/17/2024 SERVICE TIME: 2:22 PM CHIEF COMPLAINT: Follow up CKD HPI: Ms. Gant is a 59 year old female who presents for follow up CKD 3A with PMHx of VETO on CPAP, A-fib on carvedilol, IBS-D, GERD r/t Paraesophageal hernia on PPI x 2, and hypothyroidism Since last visit following with PCP for back pain. Has appointment with pain management. Feels sore today BPs at home not taken. Weights: 4 lbs weight loss in the last 2 days. Has lost 40 lbs in a year. Needs to be at 190 lbs for hiatal hernia repair. Goal weight is 140 lbs. Avoids NSAIDS now. Salts some foods. Will try to reduce potatoes. CPAP is broken - following with sleep medicine. Assessment/Plan from [facility] with me on 04/13/24. -Reduce/STOP Voltaren -Discuss pain options with Orthopedics -Labs to be done today and prior to next visit. has a current medication list which includes the following prescription(s): topiramate, gabapentin, albuterol hfa, fluticasone, fluticasone, hydrocortisone, carvedilol, dicyclomine, torsemide, CPAP, cholestyramine-sucrose, sucralfate, cholecalciferol, creon, hyoscyamine, pantoprazole dr, omeprazole, levothyroxine, colestipol, spironolactone, olopatadine, eye itch relief, nitroglycerin sublingual, aspirin, enteric coated, atorvastatin, and potassium chloride sr. ALLERGIES: ALLERGIES Allergen Reactions Iv Contrast [Iodine] Swelling Seasonal Allergies Intolerance PHYSICAL EXAM: BP 104/71 (BP Site: Left Arm, BP Position: Sitting, BP Cuff Size: Large Adult) Pulse 60 Wt 98 kg (216 lb 0.8 oz) LMP (LMP Unknown) BMI 38.89 kg/m? BP - standardized method Pulse 1 BP #1: 96/64 2 BP #2 : 106/70 3 BP #3 : 109/79 Average Average BP: 104/71 Average Pulse: 60 beats/min BP cuff location BP cuff location: Left upper arm BP cuff size BP cuff size: large adult Constitutional: NAD HEENT: PERRL, EOMI, MMM, trachea is midline CV: RRR, Normal s1 and s2 Lungs: Clear to auscultation bilaterally Abd: Soft, nontender, non distended Neurologic: Normal balance, Normal Gait. AANDOx3 Psych: Normal mood and affect Extremities: Trace edema LLE DATA: Diagnostic tests reviewed for today's visit: Sodium (mmol/L) Date Value 07/26/2024 141 04/13/2024 143 01/20/2024 141 Creatinine (mg/dL) Date Value 07/26/2024 1.25 (H) 04/13/2024 1.25 (H) 01/20/2024 1.33 (H) Vitamin D 25 Hydroxy (ng/mL) Date Value 07/26/2024 67.8 PTH, Intact (pg/mL) Date Value 07/26/2024 93 (H) 04/13/2024 179 (H) 01/04/2024 131 (H) Potassium (mmol/L) Date Value 07/26/2024 3.8 04/13/2024 4.1 01/20/2024 3.8 Phosphorus (mg/dL) Date Value 07/26/2024 3.2 04/13/2024 3.4 10/07/2023 2.9 Calcium, Total (mg/dL) Date Value 07/26/2024 9.2 04/13/2024 9.6 01/20/2024 9.7 Hemoglobin (g/dL) Date Value 07/26/2024 12.8 04/13/2024 13.8 07/13/2023 14.4 Hemoglobin A1C (%) Date Value 07/26/2024 5.0 07/13/2023 5.3 11/17/2022 5.0 Albumin/Creat Ratio (mg/g) Date Value 07/13/2023 <11 01/27/2023 <19 Protein/Creat Ratio (mg/mg) Date Value 04/13/2024 0.13 07/13/2023 0.10 01/27/2023 0.08 Laboratory work up, imaging and other tests were reviewed ASSESSMENT: 59 year old female who presents with PMHx with CKD 3, VETO on CPAP, GERD, IBS and Obesity. CKD Stage 3B, non proteinuric, related to right renal atrophy, with last SCR 1.2. Risk progression includes continued NSAID use, PPI use and now with BMI now decreased to 38. Kidney sizes: - Ultrasound done 11/2022: - [...] - Meds: Carvedilol 3.125 BID, Torsemide 20 mg BID, Spironolactone 25 daily - Trace LLE edema Metabolic/electrolytes: - Lytes stable on K supplement 10 meq daily Anemia: - Hgb: 12.8 - Stable - Trending for EARNEST/iron needs. Metabolic Bone: - Stable CV/Lipids: - ASA, statin PLAN: -Labs to be done prior to next visit. -Check home BPs and send in report in 2 weeks via [employer]. -Continue to follow w (more content not included)... [facility]AGGENS[facility] JOELLEN GANT ([id number]) 1965 F CHT Date Time Provider Department 08/15/24 JOELLEN CROWDER AGGENS4 During your visit today, we recorded the following information about you: Lisbet Loco LPN 08/15/2024 4:56 PM Signed Patient wants to stop taking topomax. Stating she has no appetite at all and can't live like that. Asking how to ween down. Lisbet Loco LPN Allergies As of Date: 08/15/2024 Noted Allergy Reaction IV CONTRAST (IODINE) 04/14/2023 7 - Swelling SEASONAL ALLERGIES 04/08/2021 5 - Intolerance Date Reviewed: 08/02/2024 Reviewed by: Lisbet Loco LPN - Fully Assessed Visit Diagnoses:Cirrhosis of liver without ascites, unspecified hepatic cirrhosis type (HCC) [K74.60] Stage 3a chronic kidney disease (HCC) [N18.31] Obesity, Class III, BMI 40-49.9 (morbid obesity) (HCC) [E66.813] Acquired hypothyroidism [E03.9] Gastroesophageal reflux disease, unspecified whether esophagitis present [K21.9] VETO on CPAP [G47.33] Dietary counseling and surveillance [Z71.3] BMI 39.0-39.9,adult [Z68.39] Order(s):topiramate (TOPAMAX) 25 mg tabletTake 2 tablets by mouth once daily.Disp: 180 tabletRfl: 0 Prescriptions as of 08/16/2024 - topiramate (TOPAMAX) 25 mg tablet Take 2 tablets by mouth once daily. - gabapentin (NEURONTIN) 300 mg capsule Take 1 capsule by mouth daily at bedtime for 30 days. - albuterol HFA (PROAIR HFA) 90 mcg/actuation [...] hands, arms, legs for 1 week.). - carvedilol (COREG) 3.125 mg tablet Take 1 tablet by mouth two times a day. [facility] - dicyclomine (BENTYL) 20 mg tablet Take 1 tablet by mouth three times a day as needed (per [facility]). - torsemide (DEMADEX) 20 mg tablet Take 1 tablet by mouth two times a day. [facility]. - CPAP BiPAP 9/5 cm per [facility]. - cholestyramine-sucrose (QUESTRAN) 4 gram powder TAKE 4 GRAMS BY MOUTH AT BEDTIME. ADMINISTER WITH A MEAL. AVOID O... (REFER TO PRESCRIPTION NOTES). - sucralfate (CARAFATE) 1 gram tablet Take one tablet in the morning and one tablet in the afternoon - cholecalciferol (VITAMIN D3) 50 mcg (2,000 unit) tablet Take 1 tablet by mouth once daily. - CREON 36,000-114,000- 180,000 unit delayed release capsule 1 capsule with meals and at bedtime. 2-3 capsules with meals and 1-2 with snacks - hyoscyamine (LEVSIN) 0.125 mg tablet Take 0.125 mg by mouth every 6 hours as needed. 1-2 tablets four times daily as needed - pantoprazole DR (PROTONIX) 40 mg tablet Take 1 tablet by mouth two times a day. Take on empty stomach, 1/2 hr before meal. - omeprazole (PRILOSEC) 40 mg capsule Take 1 capsule by mouth once daily. - levothyroxine (SYNTHROID) 100 mcg tablet Take 1 tablet by mouth once daily. Per [facility]. - colestipol (COLESTID) 1 gram tablet Take 2 tablets by mouth two times a day. - spironolactone (ALDACTONE) 25 mg tablet Take 1 tablet by mouth every afternoon. Per [facility] - olopatadine (PATANOL) 0.1 % ophthalmic solution - EYE ITCH RELIEF 0.025 % (0.035 %) ophthalmic solution instill 1 drop into both eyes twice a day if needed - nitroglycerin sublingual (NITROQUICK) 0.4 mg SL tablet 0.4 mg. - aspirin, enteric coated (ASPIRIN, ENTERIC COATED) 81 mg EC tablet Take 1 tablet by mouth once daily. - atorvastatin (LIPITOR) 20 mg tablet Take 20 mg by mouth once daily. - potassium chloride SR (MICRO-K) 10 mEq CR capsule Take 1 capsule by mouth once daily. Problem List As Of Date 08/15/2024 Noted Resolved Complete spontaneous without mention o*01/01/2005 [...] gastritis [K29.60] 04/08/2021 Colon polyp [K63.5] 07/17/2020 Acquired hypot (more content not included)... [facility] CNOVon 08-14-2024 CNOV Office Visit (PSYAGR ) STALINJOELLEN ([id number]) 1965 F CHT Date Time Provider Department 08/14/24 2:00 PM PSYC TESTING [facility] GREEN 220 PSYAGR During your visit today, we recorded the following information about you: Rashad Rouse 08/16/2024 10:23 AM Cosign Needed Joellen Gant, [id number] has completed the following tests in full on today's date: 08/14/24 WRAT-5 Word Reading NAB [place] WAIS-IV RBANS Figure Copy AND Line Orientation HVLT-R BVMT-R FAS/Animals TMT AANDB DKEFS CWI PHQ-9 PAULA-7 DCT SRT Referring Provider: LISBET STEEL [[id number]] Allergies As of Date: 08/14/2024 Noted Allergy Reaction IV CONTRAST (IODINE) 04/14/2023 7 - Swelling SEASONAL ALLERGIES 04/08/2021 5 - Intolerance Date Reviewed: 08/02/2024 Reviewed by: Lisbet Loco LPN - Fully Assessed Primary Visit Diagnosis:Memory loss [R41.3] Prescriptions as of 08/16/2024 - topiramate (TOPAMAX) 25 mg tablet Take 2 tablets by mouth once daily. - gabapentin (NEURONTIN) 300 mg capsule Take 1 capsule by mouth daily at bedtime for 30 days. - albuterol HFA (PROAIR HFA) 90 mcg/actuation [...] hands, arms, legs for 1 week.). - carvedilol (COREG) 3.125 mg tablet Take 1 tablet by mouth two times a day. [facility] - dicyclomine (BENTYL) 20 mg tablet Take 1 tablet by mouth three times a day as needed (per [facility]). - torsemide (DEMADEX) 20 mg tablet Take 1 tablet by mouth two times a day. [facility]. - CPAP BiPAP 9/5 cm per [facility]. - cholestyramine-sucrose (QUESTRAN) 4 gram powder TAKE 4 GRAMS BY MOUTH AT BEDTIME. ADMINISTER WITH A MEAL. AVOID O... (REFER TO PRESCRIPTION NOTES). - sucralfate (CARAFATE) 1 gram tablet Take one tablet in the morning and one tablet in the afternoon - cholecalciferol (VITAMIN D3) 50 mcg (2,000 unit) tablet Take 1 tablet by mouth once daily. - CREON 36,000-114,000- 180,000 unit delayed release capsule 1 capsule with meals and at bedtime. 2-3 capsules with meals and 1-2 with snacks - hyoscyamine (LEVSIN) 0.125 mg tablet Take 0.125 mg by mouth every 6 hours as needed. 1-2 tablets four times daily as needed - pantoprazole DR (PROTONIX) 40 mg tablet Take 1 tablet by mouth two times a day. Take on empty stomach, 1/2 hr before meal. - omeprazole (PRILOSEC) 40 mg capsule Take 1 capsule by mouth once daily. - levothyroxine (SYNTHROID) 100 mcg tablet Take 1 tablet by mouth once daily. Per [facility]. - colestipol (COLESTID) 1 gram tablet Take 2 tablets by mouth two times a day. - spironolactone (ALDACTONE) 25 mg tablet Take 1 tablet by mouth every afternoon. Per [facility] - olopatadine (PATANOL) 0.1 % ophthalmic solution - EYE ITCH RELIEF 0.025 % (0.035 %) ophthalmic solution instill 1 drop into both eyes twice a day if needed - nitroglycerin sublingual (NITROQUICK) 0.4 mg SL tablet 0.4 mg. - aspirin, enteric coated (ASPIRIN, ENTERIC COATED) 81 mg EC tablet Take 1 tablet by mouth once daily. - atorvastatin (LIPITOR) 20 mg tablet Take 20 mg by mouth once daily. - potassium chloride SR (MICRO-K) 10 mEq CR capsule Take 1 capsule by mouth once daily. Problem List As Of Date 08/14/2024 Noted Resolved Complete spontaneous without mention o*01/01/2005 [...] gastritis [K29.60] 04/08/2021 Colon polyp [K63.5] 07/17/2020 Acquired hypothyroidism [E03.9] 04/16/2024 Right renal atrophy [N26.1] 01/27/2023 10/14/2023 Eczema [L30.9] 07/15/2023 No appetite [R63.0] 07/15/2023 Cirrhosis of liver without ascites, unspecified*11/21/2023 Acute pancreatitis (HCC) [K85.90] 11/22/2023 History of right and left heart catheterization*01/23/2019 Jena (more content not included)... Normal [facility] CNOV Office Visit (PSYAGR ) JOELLEN GANT ([id number]) 1965 F CHT Date Time Provider Department 08/14/24 1:00 PM PAMELA LOPEZ PSYAGR During your visit today, we recorded the following information about you: Pamela Lopez, PhD 08/20/2024 3:24 PM Addendum [facility] Neuropsychology Consultation Name: Joellen Gant Date of : 1965 Age: [age] year old Date of Evaluation: August 14, 2024 Ms. Gant was seen today for a clinical interview and neuropsychological testing. Follow up visit to discuss the results of the evaluation currently scheduled for 08/29/24 at 3:00 pm. Full report to follow. Pamela Lopez, PhD Referring Provider: LISBET STEEL [[id number]] Allergies As of Date: 08/14/2024 Noted Allergy Reaction IV CONTRAST (IODINE) 04/14/2023 7 - Swelling SEASONAL ALLERGIES 04/08/2021 5 - Intolerance Date Reviewed: 08/02/2024 Reviewed by: Lisbet Loco LPN - Fully Assessed Reason for Visit: Neuropsych Testing [506] Primary Visit Diagnosis:Memory loss [R41.3] Prescriptions as of 08/20/2024 - topiramate (TOPAMAX) 25 mg tablet Take 2 tablets by mouth once daily. - gabapentin (NEURONTIN) 300 mg capsule Take 1 capsule by mouth daily at bedtime for 30 days. - albuterol HFA (PROAIR HFA) 90 mcg/actuation [...] hands, arms, legs for 1 week.). - carvedilol (COREG) 3.125 mg tablet Take 1 tablet by mouth two times a day. [facility] - dicyclomine (BENTYL) 20 mg tablet Take 1 tablet by mouth three times a day as needed (per [facility]). - torsemide (DEMADEX) 20 mg tablet Take 1 tablet by mouth two times a day. [facility]. - CPAP BiPAP 9/5 cm per [facility]. - cholestyramine-sucrose (QUESTRAN) 4 gram powder TAKE 4 GRAMS BY MOUTH AT BEDTIME. ADMINISTER WITH A MEAL. AVOID O... (REFER TO PRESCRIPTION NOTES). - sucralfate (CARAFATE) 1 gram tablet Take one tablet in the morning and one tablet in the afternoon - cholecalciferol (VITAMIN D3) 50 mcg (2,000 unit) tablet Take 1 tablet by mouth once daily. - CREON 36,000-114,000- 180,000 unit delayed release capsule 1 capsule with meals and at bedtime. 2-3 capsules with meals and 1-2 with snacks - hyoscyamine (LEVSIN) 0.125 mg tablet Take 0.125 mg by mouth every 6 hours as needed. 1-2 tablets four times daily as needed - pantoprazole DR (PROTONIX) 40 mg tablet Take 1 tablet by mouth two times a day. Take on empty stomach, 1/2 hr before meal. - omeprazole (PRILOSEC) 40 mg capsule Take 1 capsule by mouth once daily. - levothyroxine (SYNTHROID) 100 mcg tablet Take 1 tablet by mouth once daily. Per [facility]. - colestipol (COLESTID) 1 gram tablet Take 2 tablets by mouth two times a day. - spironolactone (ALDACTONE) 25 mg tablet Take 1 tablet by mouth every afternoon. Per [facility] - olopatadine (PATANOL) 0.1 % ophthalmic solution - EYE ITCH RELIEF 0.025 % (0.035 %) ophthalmic solution instill 1 drop into both eyes twice a day if needed - nitroglycerin sublingual (NITROQUICK) 0.4 mg SL tablet 0.4 mg. - aspirin, enteric coated (ASPIRIN, ENTERIC COATED) 81 mg EC tablet Take 1 tablet by mouth once daily. - atorvastatin (LIPITOR) 20 mg tablet Take 20 mg by mouth once daily. - potassium chloride SR (MICRO-K) 10 mEq CR capsule Take 1 capsule by mouth once daily. Problem List As Of Date 08/14/2024 Noted Resolved Complete spontaneous without mention o*01/01/2005 [...] gastritis [K29.60] 04/08/2021 Colon polyp [K63.5] 07/17/2020 Acquired hypothyroidism [E03.9] 04/16/2024 Right renal atrophy [N26.1] 01/27/2023 10/14/2023 Eczema [L30.9] 07/15/2023 No appet (more content not included)... [facility] CNPNon 08-13-2024 [place] Telephone (PSYAGR) STALINJOELLEN ([id number]) 1965 F T Date Time Provider Department 08/13/24 PAMELA LOPEZ PSYAGR During your visit today, we recorded the following information about you: Urszula Rose 08/13/2024 2:32 PM Signed Placed a reminder call for Neuropsychological testing. Talked to the patient; they confirmed appointment. Allergies As of Date: 08/13/2024 Noted Allergy Reaction IV CONTRAST (IODINE) 04/14/2023 7 - Swelling SEASONAL ALLERGIES 04/08/2021 5 - Intolerance Date Reviewed: 08/02/2024 Reviewed by: Lisbet Loco LPN - Fully Assessed Reason for Visit: Appointment [186] Prescriptions as of 08/13/2024 - topiramate (TOPAMAX) 50 mg tablet Take 2 tablets by mouth once daily. - gabapentin (NEURONTIN) 300 mg capsule Take 1 capsule by mouth daily at bedtime for 30 days. - albuterol HFA (PROAIR HFA) 90 mcg/actuation [...] hands, arms, legs for 1 week.). - carvedilol (COREG) 3.125 mg tablet Take 1 tablet by mouth two times a day. [facility]. - dicyclomine (BENTYL) 20 mg tablet Take 1 tablet by mouth three times a day as needed (per [facility]). - torsemide (DEMADEX) 20 mg tablet Take 1 tablet by mouth two times a day. [facility]. - CPAP BiPAP 9/5 cm per [facility]. - cholestyramine-sucrose (QUESTRAN) 4 gram powder TAKE 4 GRAMS BY MOUTH AT BEDTIME. ADMINISTER WITH A MEAL. AVOID O... (REFER TO PRESCRIPTION NOTES). - sucralfate (CARAFATE) 1 gram tablet Take one tablet in the morning and one tablet in the afternoon - cholecalciferol (VITAMIN D3) 50 mcg (2,000 unit) tablet Take 1 tablet by mouth once daily. - CREON 36,000-114,000- 180,000 unit delayed release capsule 1 capsule with meals and at bedtime. 2-3 capsules with meals and 1-2 with snacks - hyoscyamine (LEVSIN) 0.125 mg tablet Take 0.125 mg by mouth every 6 hours as needed. 1-2 tablets four times daily as needed - pantoprazole DR (PROTONIX) 40 mg tablet Take 1 tablet by mouth two times a day. Take on empty stomach, 1/2 hr before meal. - omeprazole (PRILOSEC) 40 mg capsule Take 1 capsule by mouth once daily. - levothyroxine (SYNTHROID) 100 mcg tablet Take 1 tablet by mouth once daily. Per [facility]. - colestipol (COLESTID) 1 gram tablet Take 2 tablets by mouth two times a day. - spironolactone (ALDACTONE) 25 mg tablet Take 1 tablet by mouth every afternoon. Per [facility] - olopatadine (PATANOL) 0.1 % ophthalmic solution - EYE ITCH RELIEF 0.025 % (0.035 %) ophthalmic solution instill 1 drop into both eyes twice a day if needed - nitroglycerin sublingual (NITROQUICK) 0.4 mg SL tablet 0.4 mg. - aspirin, enteric coated (ASPIRIN, ENTERIC COATED) 81 mg EC tablet Take 1 tablet by mouth once daily. - atorvastatin (LIPITOR) 20 mg tablet Take 20 mg by mouth once daily. - potassium chloride SR (MICRO-K) 10 mEq CR capsule Take 1 capsule by mouth once daily. Problem List As Of Date 08/13/2024 Noted Resolved Complete spontaneous without mention o*01/01/2005 [...] gastritis [K29.60] 04/08/2021 Colon polyp [K63.5] 07/17/2020 Acquired hypothyroidism [E03.9] 04/16/2024 Right renal atrophy [N26.1] 01/27/2023 10/14/2023 Eczema [L30.9] 07/15/2023 No appetite [R63.0] 07/15/2023 Cirrhosis of liver without ascites, unspecified*11/21/2023 Acute pancreatitis (HCC) [K85.90] 11/22/2023 History of right and left heart catheterization*01/23/2019 Dietary counseling and surveillance [Z71.3] 06/20/2024 BMI 39.0-39.9,adult [Z68.39] 06/20/2024 Encounter Status:Closed by URSZULA ROSE on 08/13/24 Normal [facility] Endocrinology Visit Reporton 08-13-2024 Endocrinology Visit Report [facility] [address] [place] [address]. [address] [place], [place] [address] OFFICE VISIT Date of Service: 08/13/24 MR#: [id number] Acct: [id number] Name: JOELLEN GANT Rep #: [id number] : 1965 Provider: Anita Garcia Age/Sex: 59/F Location: [facility] Status: Signed Intake Vital Signs 03/02/24 11:12 05/03/24 12:00 06/19/24 15:28 08/13/24 14:36 Height 5 ft 5 in 5 ft 5 in 5 ft 6 in 5 ft 5 in Weight: 220 lb 2 oz BMI 36.6 BP 117/76 Blood Pressure Location Lt brachial Position Sitting Pulse 84 Pulse Source Monitor Pulse Oximetry (%) 97 Oxygen Delivery Method room air Intake Visit Reasons: 17 M FU, NS 04/02, CX 05/14, RS 06/12 Chief Complaint: Thyroid Allergies Iodinated Contrast Media (CT) Allergy (Unknown, Verified 08/13/24 14:39) rash, arm swelling Medications ???Medication ???Instructions ???Recorded ???Confirmed ???Type hydrocortisone 2.5 % topical cream 1 applic topical BID skin 08/13/24 History albuterol sulfate 90 mcg/actuation 2 puff inhalation Q4H PRN Sob / Or 02/13/19 08/13/24 Rx aerosol inhaler (ProAir HFA) Wheezing #18 grams fluticasone propionate 50 2 spray intranasal DAILY nasal 08/13/24 Rx mcg/actuation nasal dryness #9.9 grams spray,suspension (Allergy Relief (fluticasone)) ketotifen fumarate 0.025 % (0.035 1 drp ophthalmic (eye) BID PRN 08/13/24 History %) eye drops (Eye Itch Relief) allergy symptoms olopatadine 0.1 % eye drops 1 drp ophthalmic (eye) BID PRN 08/13/24 History itching diclofenac sodium 75 mg 75 mg PO BID 03/29/23 08/13/24 His tory tablet,delayed release fluticasone propionate 220 2 puff inhalation BID 03/29/2305/08 History mcg/actuation HFA aerosol inhaler tramadol 50 mg tablet 50 mg PO Q6H PRN pain 03/29/2305/08 History potassium chloride 10 mEq 10 meq PO DAILY #90 caps 08/25/23 08/13/24 Rx capsule,extended release Held on 01/03/24. Instructions: Ordered nejrvxye-dtzh-gpk-iron 18 mg-folic 1 tab PO DAILY 01/03/24 08/13/24 History 240 mcg-vit K 120 mcg-herbal tablet ([employer]) phentermine 30 mg capsule 30 mg PO QDAY #30 caps 03/02/24 Rx cholecalciferol (vitamin D3) 50 50 mcg PO DAILY 06/19/24 08/13/24 History mcg (2,000 unit) capsule aspirin 81 mg tablet,delayed 81 mg PO DAILY@0800 #90 tabs 07/3108/13/24 Rx release atorvastatin 20 mg tablet 20 mg PO DAILY #90 tabs 07/31/24 0 08/13/24 Rx carvedilol 3.125 mg tablet 3.125 mg PO BID heart #180 tabs 08/13/24 Rx cholestyramine (with sugar) 4 gram 4 g PO QHS #368.76 grams 5 08/13/24 Rx oral powder colestipol 1 gram tablet 4 g (4 x 1 gram) PO DAILY diarrhea 07/31/24 08/13/24 Rx #120 tabs dicyclomine 20 mg tablet 20 mg PO TID PRN for abdominal 08/13/24 Rx pain #90 TABLETS hyoscyamine sulfate 0.125 mg tablet 0.125 mg PO BID-QID PRN for 08/13/24 Rx indigestion #120 TABLETS uqkkoj-jykwmfjl-glacyzx 3 cap PO QAC #300 caps 07/31/24 Rx 36,000-114,000-180,000 unit capsule,delay rel (Creon) nitroglycerin 0.4 mg sublingual 0.4 mg sublingual Q5M PRN 07/31/24 08/13/24 Rx tablet Cardiac/Chest Pain #25 tabs omeprazole 40 mg capsule,delayed 40 mg PO QAM #90 caps 07/31/2405/08 Rx release pantoprazole 40 mg tablet,delayed 40 mg PO BID #180 tabs 07/31/24 0 08/13/24 Rx release (Protonix) spironolactone 25 mg tablet 25 mg PO DAILY #90 tabs 07/31/24 0 08/13/24 Rx sucralfate 1 gram tablet 1 g PO TID #60 TABLETS 07/31/24 Rx torsemide 20 mg tablet 20 mg PO BID #180 tabs 07/31/24 Rx gabapentin 300 mg capsule 300 mg PO QHS 08/13/24 08/13/24 Hi story levothyroxine 88 mcg tablet 88 mcg PO QDAY #90 tabs 08/13/24 0 08/13/24 Rx (Unithroid) topiramate 50 mg tablet 100 mg PO QDAY 08/13/24 08/13/24 H istory [facility] Medical History (Updated 08/14/24 @ 07:[address] Grant Morgan MD) Obesity Diabetes Thyroid disease Arthritis History of renal disease Back pain Injury of back Migraine headache Difficulty swallowing Difficulty chewing History of hiatal hernia Heartburn Gastric reflux BiPAP (biphasic positive airway pressure) dependence Sleep apnea Shortness of breath on exertion History of pain when walking History of edema Cardiology follow-up encounter Chest pain Hypothyroidism (acquired) Bloating Diarrhea Hiatal hernia Reflux gastritis History of vaginal delivery Loose, teeth Wears glasses Hearing loss, left Bruises easily History of ectopic Post-menopausal Anxiety Ulcer Former smoker History of echocardiogram History of stress test Atrial fibrillation Cholelithiasis with (more content not included)... Normal [facility] CNCOon 08-09-2024 CNCO Letter Text Normal [facility] CNPNon 08-09-2024 ERICKN Telephone (AGGENS4) JOELLEN GANT ([id number]) 1965 F CHT Date Time Provider Department 08/09/24 LISBET STEEL4 During your visit today, we recorded the following information about you: Myriam Freire 08/09/2024 8:59 AM Signed Patient No Showed appointment. This is the patient's 3rd No Show in the bariatric program. The dates are as follows: 12/13/23, 01/13/24, 08/09/24 Patient information forwarded to Cassie Suh for further review. - Patient is confused as to why her Bariatric appointments are cancelled - patient was under the impression she was still working toward the surgery she needs.- Allergies As of Date: 08/09/2024 Noted Allergy Reaction IV CONTRAST (IODINE) 04/14/2023 7 - Swelling SEASONAL ALLERGIES 04/08/2021 5 - Intolerance Date Reviewed: 08/02/2024 Reviewed by: Lisbet Loco LPN - Fully Assessed Reason for Visit: Patient Update [1234] Prescriptions as of 08/09/2024 - topiramate (TOPAMAX) 50 mg tablet Take 2 tablets by mouth once daily. - gabapentin (NEURONTIN) 300 mg capsule Take 1 capsule by mouth daily at bedtime for 30 days. - albuterol HFA (PROAIR HFA) 90 mcg/actuation [...] hands, arms, legs for 1 week.). - carvedilol (COREG) 3.125 mg tablet Take 1 tablet by mouth two times a day. [facility]. - dicyclomine (BENTYL) 20 mg tablet Take 1 tablet by mouth three times a day as needed (per [facility]). - torsemide (DEMADEX) 20 mg tablet Take 1 tablet by mouth two times a day. [facility]. - CPAP BiPAP 9/5 cm per [facility]. - cholestyramine-sucrose (QUESTRAN) 4 gram powder TAKE 4 GRAMS BY MOUTH AT BEDTIME. ADMINISTER WITH A MEAL. AVOID O... (REFER TO PRESCRIPTION NOTES). - sucralfate (CARAFATE) 1 gram tablet Take one tablet in the morning and one tablet in the afternoon - cholecalciferol (VITAMIN D3) 50 mcg (2,000 unit) tablet Take 1 tablet by mouth once daily. - CREON 36,000-114,000- 180,000 unit delayed release capsule 1 capsule with meals and at bedtime. 2-3 capsules with meals and 1-2 with snacks - hyoscyamine (LEVSIN) 0.125 mg tablet Take 0.125 mg by mouth every 6 hours as needed. 1-2 tablets four times daily as needed - pantoprazole DR (PROTONIX) 40 mg tablet Take 1 tablet by mouth two times a day. Take on empty stomach, 1/2 hr before meal. - omeprazole (PRILOSEC) 40 mg capsule Take 1 capsule by mouth once daily. - levothyroxine (SYNTHROID) 100 mcg tablet Take 1 tablet by mouth once daily. [facility] Endocrinology. - colestipol (COLESTID) 1 gram tablet Take 2 tablets by mouth two times a day. - spironolactone (ALDACTONE) 25 mg tablet Take 1 tablet by mouth every afternoon. Per [facility] - olopatadine (PATANOL) 0.1 % ophthalmic solution - EYE ITCH RELIEF 0.025 % (0.035 %) ophthalmic solution instill 1 drop into both eyes twice a day if needed - nitroglycerin sublingual (NITROQUICK) 0.4 mg SL tablet 0.4 mg. - aspirin, enteric coated (ASPIRIN, ENTERIC COATED) 81 mg EC tablet Take 1 tablet by mouth once daily. - atorvastatin (LIPITOR) 20 mg tablet Take 20 mg by mouth once daily. - potassium chloride SR (MICRO-K) 10 mEq CR capsule Take 1 capsule by mouth once daily. Problem List As Of Date 08/09/2024 Noted Resolved Complete spontaneous without mention o*01/01/2005 [...] gastritis [K29.60] 04/08/2021 Colon polyp [K63.5] 07/17/2020 Acquired hypothyroidism [E03.9] 04/16/2024 Right renal atrophy [N26.1] 01/27/2023 10/14/2023 Eczema [L30.9] 07/15/2023 No appetite [R63.0] 07/15/2023 Cirrhosis of liver without ascites, unspecified*11/21/2023 Acute pancreatitis (HCC) [K85.90] 11/22/2023 History of (more content not included)... 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 The study was technically difficult. Due to suboptimal imaging windows. Contrast injection was performed. Exam performed in department. Left Ventricle Normal LV size. The estimated ejection fraction is 55 %. No evidence for diastolic dysfunction. No regional wall motion abnormalities noted. Right Ventricle Normal RV size. Normal systolic function. Atria The left and right atria are normal. No doppler evidence for ASD. Mitral Valve There is no mitral valve stenosis. No mitral valve insufficiency. Tricuspid Valve There is no tricuspid stenosis. Unable to estimate RV systolic pressure due to inadequate jet, pulmonary artery pressure probably normal. Aortic Valve Trisinus/trileaflet aortic valve. Aortic sclerosis, no stenosis. No aortic valve insufficiency. Pulmonic Valve There is no pulmonic valvular stenosis. No pulmonic valve insufficiency. Great Vessels Normal sized aortic root. Pericardium/Pleural No pericardial effusion. Medication 22 gauge I.V. with prn adaptor inserted into left arm. Diluted definity 2.0ml given slow IV push to enhance endocardial definition. MMode/2D Measurements Calculations LVIDd: 4.0 cm IVSd: 0.86 cm Ao root diam: 3.2 cm LVIDs: 2.7 cm LVPWd: 0.82 cm RVDd: 3.2 cm FS: 31.3 % LAV(MOD-bp): 63.6 ml LVAd ap4: 23.1 cm2 LVAd ap2: 20.7 cm2 LAV(MOD-bp) Indexed: 29.0 ml/m2 LVLd ap4: 7.4 cm LVLd ap2: 6.6 cm LAV(MOD-sp2): 56.6 ml EDV(MOD-sp4): 58.6 ml EDV(MOD-sp2): 53.2 ml LAV(MOD-sp4): 65.1 ml EDV(sp4-el): 60.8 ml EDV(sp2-el): 55.0 ml LVAs ap4: 14.1 cm2 LVAs ap2: 13.7 cm2 LVLs ap4: 6.3 cm LVLs ap2: 6.5 cm ESV(MOD-sp4): 26.0 ml ESV(MOD-sp2): 23.7 ml ESV(sp4-el): 27.1 ml ESV(sp2-el): 24.3 ml EF(MOD-sp4): 55.6 % EF(MOD-sp2): 55.5 % EF(sp4-el): 55.4 % SV(MOD-sp4): 32.6 ml SV(MOD-sp2): 29.5 ml SV(sp4-el): 33.7 ml SI(MOD-sp4): 14.9 ml/m2 SI(MOD-sp2): 13.5 ml/m2 LA A4 area: 20.0 cm2 LA dimension(2D): 3.7 cm RA A4 area: 14.5 cm2 TAPSE: 2.2 cm Time Measurements MV dec time: 0.18 sec Doppler Measurements Calculations MV E max janie: 103.0 cm/sec Lat Peak E' Janie: 9.8 cm/sec Med Peak E' Janie: 7.9 cm/sec MV A max janie: 92.2 cm/sec E/E' lat: 10.5 E/E' med: 13.1 MV E/A: 1.1 MV V2 max: 94.5 cm/sec MV P1/2t max janie: 80.9 cm/sec Ao V2 max: 138.1 cm/sec MV max P.6 mmHg MV P1/2t: 67.8 msec Ao max P.6 mmHg MV V2 mean: 53.8 cm/sec MV dec slope: 349.4 cm/sec2 Ao V2 mean: 89.9 cm/sec MV mean P.3 mmHg MVA(P1/2t): 3.2 cm2 Ao mean P.8 mmHg MV V2 VTI: 29.9 cm Ao V2 VTI: 31.3 cm AV (velocity ratio): 0.75 LV V1 max: 98.3 cm/sec PA V2 max: 117.9 cm/sec TR max janie: 207.9 cm/sec LV V1 max P.9 mmHg PA V2 mean: 86.9 cm/sec TR max P.3 mmHg LV V1 mean P.3 mmHg LV V1 mean: 72.3 cm/sec LV V1 VTI: 23.4 cm ECHO/Echo Complete W/ Contrast Interpretation Summary The estimated ejection fraction is 55 %. No evidence for diastolic dysfunction. Ordering Physician: Porfirio Jeff Referring Physician: Sam Null Performed By: Taylor Álvarez RDCS, RVT 08/03/24 1531 Date Bowen Quach MD CC: SHIPFITTER APPRENTICE-C Porfirio Jeff; Dr. Sam Null MD Date Dictated: 08/03/24 1348 Date Transcribed: 08/03/24 1531 Climatologist: Signed Normal [facility] Echocardiogram study reportO rdered By: Bowen Quach on 08-03-2024 Study report [facility] [address] [place] [address]. [place] [address] Echo Complete W/ Contrast 08/03/248 MR#: [id number] Acct: [id number] Name: JOELLEN GANT Rep #:[id number] : 1965 59 From: Bowen wallis MD Attending Dr: PIA Nguyen [facility] tus: REG CLI Ordering Dr: Porfirio Jeff NP Date: 08/03/24 Location: [facility] Sex: F C Admitted: Reason For Study Reason For Study: SOB Procedure This was a 2D Doppler, Color Flow transthoracic echocardiogram. The study was technically difficult. Due to suboptimal imaging windows. Contrast injection was performed. Exam performed in department. Left Ventricle Normal LV size. The estimated ejection fraction is 55 %. No evidence for diastolic dysfunction. No regional wall motion abnormalities noted. Right Ventricle Normal RV size. Normal systolic function. Atria The left and right atria are normal. No doppler evidence for ASD. Mitral Valve There is no mitral valve stenosis. No mitral valve insufficiency. Tricuspid Valve There is no tricuspid stenosis. Unable to estimate RV systolic pressure due to inadequate jet, pulmonary artery pressure probably normal. Aortic Valve Trisinus/trileaflet aortic valve. Aortic sclerosis, no stenosis. No aortic valveinsufficiency. Pulmonic Valve There is no pulmonic valvular stenosis. No pulmonic valve insufficiency. Great Vessels Normal sized aortic root. Pericardium/Pleural No pericardial effusion. Medication 22 gauge I.V. with prn adaptor inserted into left arm. Diluted definity 2.0ml given slow IV push to enhance endocardial definition. MMode/2D Measurements & Calculations LVIDd: 4.0 cm IVSd: 0.86 cm Ao root diam: 3.2 cm LVIDs: 2.7 cm LVPWd: 0.82 cm RVDd: 3.2 cm FS: 31.3 % LAV(MOD-bp): 63.6 ml LVAd ap4: 23.1 cm2 LVAd ap2: 20.7 cm2 LAV(MOD-bp) Indexed: 29.0 ml/m2 LVLd ap4: 7.4 cm LVLd ap2: 6.6 cm LAV(MOD-sp2): 56.6 ml EDV(MOD-sp4): 58.6 ml EDV(MOD-sp2): 53.2 ml LAV(MOD-sp4): 65.1 ml EDV(sp4-el): 60.8 ml EDV(sp2-el): 55.0 ml LVAs ap4: 14.1 cm2 LVAs ap2: 13.7 cm2 LVLs ap4: 6.3 cm LVLs ap2: 6.5 cm ESV(MOD-sp4): 26.0 ml ESV(MOD-sp2): 23.7 ml ESV(sp4-el): 27.1 ml ESV(sp2-el): 24.3 ml EF(MOD-sp4): 55.6 % EF(MOD-sp2): 55.5 % EF(sp4-el): 55.4 % SV(MOD-sp4): 32.6 ml SV(MOD-sp2): 29.5 ml SV(sp4-el): 33.7 ml SI(MOD-sp4): 14.9 ml/m2 SI(MOD-sp2): 13.5 ml/m2 LA A4 area: 20.0 cm2 LA dimension(2D): 3.7 cm RA A4 area: 14.5 cm2 TAPSE: 2.2 cm Time Measurements MV dec time: 0.18 sec Doppler Measurements & Calculations MV E max janie: 103.0 cm/sec Lat Peak E' Janie: 9.8 cm/sec Med Peak E' Janie: 7.9 cm/sec MV A max janie: 92.2 cm/sec E/E' lat: 10.5 E/E' med: 13.1 MV E/A: 1.1 MV V2 max: 94.5 cm/sec MV P1/2t max janie: 80.9 cm/sec Ao V2 max: 138.1 cm/sec MV max P.6 mmHg MV P1/2t: 67.8 msec Ao max P.6 mmHg MV V2 mean: 53.8 cm/sec MV dec slope: 349.4 cm/sec2 Ao V2 mean: 89.9 cm/sec MV mean P.3 mmHg MVA(P1/2t): 3.2 cm2 Ao mean P.8 mmHg MV V2 VTI: 29.9 cm Ao V2 VTI: 31.3 cm AV (velocity ratio): 0.75 LV V1 max: 98.3 cm/sec PA V2 max: 117.9 cm/sec TR max janie: 207.9 cm/sec LV V1 max P.9 mmHg PA V2 mean: 86.9 cm/sec TR max P.3 mmHg LV V1 mean P.3 mmHg LV V1 mean: 72.3 cm/sec LV V1 VTI: 23.4 cm ECHO/Echo Complete W/ Contrast Interpretation Summary The estimated ejection fraction is 55 %. No evidence for diastolic dysfunction. Ordering Physician: Porfirio Jeff Referring Physician: Sam Null Performed By: Taylor Álvarez, RDCS, RVT 08/03/24 1531 Date _ Bowen Quach MD CC: SHIPFITTER APPRENTICEAdri Jeff; Dr. Sam Null MD ~ Date Dictated: 08/03/24 1348 Date Transcribed: 08/03/241530 Climatologist: Signed [facility] Work Phone: CNOVon 08-02-2024 [facility] Office Visit (AGGENS 4) STALINJOELLEN ([id number]) 1965 F T Date Time Provider Department 08/02/24 1:00 PM MARII HERZOG4 During your visit today, we recorded the following information about you: Pulse Blood pressure Weight Height 75/minute 110/70 99.6 kg 1.588 m Sofía Multani APRN.LAST PATTERN GRADER 08/02/2024 1:37 PM Signed MDT: Concern: Very difficult to have office visit with her due to tangential behavior. When discussing nutrition recommendations, she says "I am not going to change anything". Needs neuropsych testing per psychology. She does not want bariatric surgery but needs PEHR (has lost 38 lb) MDT recommedations: Dr. Herzog has upcoming appointment-speak with her about options, BMI to get under 35 for PEHR Required monthly visits: 11 of 6 months Patient is interested in: [...] RUQ US: fatty liver Sleep Study: current VETO, not using CPAP- waiting for new machine CXR: per pulmonology clearance EKG: per cardiac clearance H Pylori: pending Labs: complete, abnormal TSH and PTH(follow up with PCP recommended) - recent CBC and BMP reviewed from 06/19 Nicotine use <12 months: No, ordered per insurance - negative Tox screen: ordered per insurance - negative Antiplatelet/anticoagulants : baby asa Immunosuppressive therapy: No Estrogen therapy: No Evaluations: Psychology: ongoing Nutrition: ongoing Education class: ongoing Clearances: -Cardiac (low risk; [facility]- Porfirio Jeff CNP)- need updated -Pulmonary (mod risk; [facility]- Lani Anderson CNP)- need updated -Nephrology ([facility]; Britni Lockwood CNP) -Gastroenterology (moderate, scanned in 02/07) -PCP Risk Calculator: VTE Risk: 0.31 - 0.49% ISS score: not diabetic Adverse Event score: NA Post-op Medications: Extended Lovenox: Yes for RYGB Actigall: No, s/p cholecystectomy PPI: currently taking pantoprazole + omeprazole Tylenol: Yes Zofran: Yes Sofía Multani APRN.Marii Krause MD 08/02/2024 1:37 PM Signed BARIATRIC SURGERY NEW PATIENT CONSULTATION HISTORY AND PHYSICAL Date: August 02, 2024 Time: 1:16 PM Joellen Gant is a 59 year old year old female with obesity (Body mass index is 39.53 kg/m?.), asthma (inhalers; Flonase), atrial fibrillation (Coreg, ASA), atypical chest pain, bile gastritis, chronic back pain/arthritis, CKD stage 3, hypothyroidism (synthroid), history of tobacco use, IBS, paraesophageal hernia and GERD who presents to the clinic today for consideration of bariatric surgery and to discuss MDT recommendations. Today the patient states that she is very happy with her current dietary changes and all she has learned from the odd piece checker. She has lost 40 pounds since last seeing me in clinic. The patient has been in the bariatric program for greater than 11 months without attaining clearance. She has stated to other staff members multiple times that she will not make dietary changes. She is losing weight, but will not be a bariatric surgery candidate without nutrition clearance. MDT: Concern: Very difficult to have office visit with her due to tangential behavior. When discussing nutrition recommendations, she says "I am not going to change anything". Needs neuropsych testing per psychology. She does not want bariatric surgery but needs PEHR (has lost 38 lb). MDT recommedations: Dr. Herzog has upcoming appointment-speak with her about options, BMI to get under 35 for PEHR Workup: - EGD (07/21/23;Danny): 3 cm paraesophageal [...] difficulty swallowing - this occurs several times pe (more content not included)... Normal [facility] STALINJOELLEN ([id number]) 1965 F CHT Date Time Provider Department 08/02/24 JOELLEN CROWDER AGGENS4 During your visit today, we recorded the following information about you: Hlaie Calderon 08/02/2024 2:11 PM Signed Pt was in the office today and asked us to message you to have her Topomax upped again. She would like the new prescription sent to the [facility]. Joellen Crowder, RESEARCH INSTRUMENTATION TECHNICIAN.LAST PATTERN GRADER 08/06/2024 4:57 PM Signed Addended by: JOELLEN CROWDER on: 08/06/2024 04:57 PM Modules accepted: Orders Allergies As of Date: 08/02/2024 Noted Allergy Reaction IV CONTRAST (IODINE) 04/14/2023 7 - Swelling SEASONAL ALLERGIES 04/08/2021 5 - Intolerance Date Reviewed: 08/02/2024 Reviewed by: Lisbet Loco LPN - Fully Assessed Visit Diagnoses:Cirrhosis of liver without ascites, unspecified hepatic cirrhosis type (HCC) [K74.60] Stage 3a chronic kidney disease (HCC) [N18.31] Obesity, Class III, BMI 40-49.9 (morbid obesity) [E66.813] Acquired hypothyroidism [E03.9] Gastroesophageal reflux disease, unspecified whether esophagitis present [K21.9] VETO on CPAP [G47.33] Dietary counseling and surveillance [Z71.3] BMI 39.0-39.9,adult [Z68.39] Order(s):topiramate (TOPAMAX) 50 mg tabletTake 2 tablets by mouth once daily.Disp: 180 tabletRfl: 0 Prescriptions as of 08/06/2024 - topiramate (TOPAMAX) 50 mg tablet Take 2 tablets by mouth once daily. - gabapentin (NEURONTIN) 300 mg capsule Take 1 capsule by mouth daily at bedtime for 30 days. - albuterol HFA (PROAIR HFA) 90 mcg/actuation [...] hands, arms, legs for 1 week.). - carvedilol (COREG) 3.125 mg tablet Take 1 tablet by mouth two times a day. [facility] - dicyclomine (BENTYL) 20 mg tablet Take 1 tablet by mouth three times a day as needed (per [facility]). - torsemide (DEMADEX) 20 mg tablet Take 1 tablet by mouth two times a day. [facility]. - CPAP BiPAP 9/5 cm per [facility]. - cholestyramine-sucrose (QUESTRAN) 4 gram powder TAKE 4 GRAMS BY MOUTH AT BEDTIME. ADMINISTER WITH A MEAL. AVOID O... (REFER TO PRESCRIPTION NOTES). - sucralfate (CARAFATE) 1 gram tablet Take one tablet in the morning and one tablet in the afternoon - cholecalciferol (VITAMIN D3) 50 mcg (2,000 unit) tablet Take 1 tablet by mouth once daily. - CREON 36,000-114,000- 180,000 unit delayed release capsule 1 capsule with meals and at bedtime. 2-3 capsules with meals and 1-2 with snacks - hyoscyamine (LEVSIN) 0.125 mg tablet Take 0.125 mg by mouth every 6 hours as needed. 1-2 tablets four times daily as needed - pantoprazole DR (PROTONIX) 40 mg tablet Take 1 tablet by mouth two times a day. Take on empty stomach, 1/2 hr before meal. - omeprazole (PRILOSEC) 40 mg capsule Take 1 capsule by mouth once daily. - levothyroxine (SYNTHROID) 100 mcg tablet Take 1 tablet by mouth once daily. Per [facility]. - colestipol (COLESTID) 1 gram tablet Take 2 tablets by mouth two times a day. - spironolactone (ALDACTONE) 25 mg tablet Take 1 tablet by mouth every afternoon. Per [facility] - olopatadine (PATANOL) 0.1 % ophthalmic solution - EYE ITCH RELIEF 0.025 % (0.035 %) ophthalmic solution instill 1 drop into both eyes twice a day if needed - nitroglycerin sublingual (NITROQUICK) 0.4 mg SL tablet 0.4 mg. - aspirin, enteric coated (ASPIRIN, ENTERIC COATED) 81 mg EC tablet Take 1 tablet by mouth once daily. - atorvastatin (LIPITOR) 20 mg tablet Take 20 mg by mouth once daily. - potassium chloride SR (MICRO-K) 10 mEq CR capsule Take 1 capsule by mouth once daily. Problem List As Of Date 08/02/2024 Noted Resolved Complete spontaneous without mention o*01/01/2005 [...] (HCC) [N18.31] 04/08/2021 Dermatophytosis of nail [B35.1] 0 (more content not included)... Normal [facility] MR/PAT.Calderon 07-30-2024 MR/PAT.DANNY BETANCUR [facility] Medical Records Department [address] [place] [address] PAT - Anesthesia 07/30/24 1009 MR#: [id number] Acct: [id number] Name: JOELLEN GANT ANN Rep #: [id number] : 1965 59 From: Eulalio Real MD PCP: Dr. 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 When Was Last Pacemaker Check QUESTION #4 FULL TEXT: You/Your Family Experience fever (hyperthermia) with Anesthesia Last Oral Intake Last Oral intake: Last Oral Intake NPO since Meds taken in AM with sips of water? Meds patient instructed to take am of surgery PONV PONV - international relations professor: PONV - international relations professor Female Yes 07/30/24 09:58 HX of Motion Sickness No 07/30/24 09:58 HX of N/V After Surgery No 07/30/24 09:58 Non-Smoker No 07/30/24 09:58 Duration of Surgery greater No 07/30/24 09:58 than 60 minutes Number of Risk Factors 1 07/30/24 09:58 PONV Score Low Risk 07/30/24 09:58 Height Weight Height Weight: Anesthesia: Height Weight Height 5 ft 5 in 05/03/24 12:00 Respiratory Assessment Respiratory Assessment - international relations professor: Respiratory Tract Infection Hx - international relations professor Hx Respiratory Tract Infection No 07/30/24 09:58 STOP Sleep Apnea STOP Sleep Apnea - international relations professor: STOP Sleep Apnea - international relations professor Hx Hypertension No 07/30/24 09:58 Hx Sleep Apnea Yes 07/30/24 09:58 CPAP No 07/30/24 09:58 BIPAP Yes 07/30/24 09:58 Do you snore loudly (louder than talking or can be heard Do you often feel tired/ fatigued/ sleepy during daytime? Has anyone observed you stop breathing during sleep? STOP Results Positive 07/30/24 09:58 QUESTION #5 FULL TEXT : Do you snore loudly (louder than talking or can be heard through closed doors)? Tobacco Use History Tobacco Use History - international relations professor: Tobacco Use History - international relations professor Tobacco Use Non-smoker 07/31/20 17:19 Smoking Status Former smoker 07/30/24 09:58 Hx Tobacco Use No 07/30/24 09:58 Years Smoking Packs Smoked per Day Smoking Cessation Date was Yes - quit smoking within 15 07/30/24 09:58 within the last 15 years years Hx Smoking Cessation Date 03/14/09 07/30/24 09:58 Hx Smoking Cessation Counseling Hematologic Medial History Hematologic Hx - international relations professor: Hematologic Medical Hx - imaging account manager Hx of Blood Transfusion No 07/30/24 09:58 Hx of Transfusion in last 3 No 07/30/24 09:58 Months Date of Last Transfusion (if within last 3 months) Ever experience any problems No 07/30/24 09:58 with transfusion(s)? Specify any problems Hx of Preganancy in last 3 No 07/30/24 09:58 Months Nurse Filling Out Transfusion VCHRISTIN 07/30/24 09:58 Questions: Date: 07/30/24 07/30/24 09:58 Time: 10:00 07/30/24 09:58 Patient unable to answer at this time (ie. confused, unrespo /Reproduction History /Reproductive History - international relations professor: /Reproductive Hx- international relations professor Hx Now No 07/30/24 09:58 Gestational Age (in weeks): EDC: Hx Hx Para Hx Section SAB PFSH Medical History (Updated 07/30/24 @ 09:58 by Bre Garibay) Diabetes Thyroid disease Arthritis History of renal disease Back pain Injury of back Migraine headache Difficulty swallowing Difficulty chewing History of hiatal hernia Heartburn Gastric reflux BiPAP (biphasic positive airway pressure) dependence Sleep apnea Shortness of breath on exertion History of pain when walking History of edema Cardiology follow-up encounter Chest pain Hypothyroidism (acquired) Bloating Diarrhea Hiatal hernia Reflux gastritis History of vaginal delivery Loose, teeth Wears glasses Hearing loss, left Bruises easily History of ectopic Post-menopausal Anxiety Ulcer Former smoker History of echocardiogram History of stress test Atrial fibrillation Cholelithiasis with chronic cholecystitis Generalized abdominal pain Pain due to vascular prosthetic devices, implants and g (more content not included)... [facility]AGGZFK4[facility] TARIQJOELLEN Linares ([id number]) 1965 F CHT Date Time Provider Department 07/27/24 MARII HERZOG4 During your visit today, we recorded the following information about you: Cassie Suh, RN 07/27/2024 10:01 AM Signed MDT: Concern: Very difficult to have office visit with her due to tangential behavior. When discussing nutrition recommendations, she says "I am not going to change anything". Needs neuropsych testing per psychology. She does not want bariatric surgery but needs PEHR (has lost 38 lb) MDT recommedations: Dr. Herzog has upcoming appointment-speak with her about options, BMI to get under 35 for PEHR Cassie Suh, RN, BSN Bariatric Front Office Director Allergies As of Date: 07/27/2024 Noted Allergy Reaction IV CONTRAST (IODINE) 04/14/2023 7 - Swelling SEASONAL ALLERGIES 04/08/2021 5 - Intolerance Date Reviewed: 07/26/2024 Reviewed by: Kristen Oconnor LPN - Fully Assessed Reason for Visit: MDT [Other] Prescriptions as of 07/27/2024 - gabapentin (NEURONTIN) 300 mg capsule Take 1 capsule by mouth daily at bedtime for 30 days. - topiramate (TOPAMAX) 25 mg tablet Take 2 tablets by mouth daily at bedtime. - albuterol HFA (PROAIR HFA) 90 mcg/actuation [...] hands, arms, legs for 1 week.). - carvedilol (COREG) 3.125 mg tablet Take 1 tablet by mouth two times a day. [facility] - dicyclomine (BENTYL) 20 mg tablet Take 1 tablet by mouth three times a day as needed (per [facility]). - torsemide (DEMADEX) 20 mg tablet Take 1 tablet by mouth two times a day. [facility]. - CPAP BiPAP 9/5 cm per [facility]. - cholestyramine-sucrose (QUESTRAN) 4 gram powder TAKE 4 GRAMS BY MOUTH AT BEDTIME. ADMINISTER WITH A MEAL. AVOID O... (REFER TO PRESCRIPTION NOTES). - sucralfate (CARAFATE) 1 gram tablet Take one tablet in the morning and one tablet in the afternoon - cholecalciferol (VITAMIN D3) 50 mcg (2,000 unit) tablet Take 1 tablet by mouth once daily. - CREON 36,000-114,000- 180,000 unit delayed release capsule 1 capsule with meals and at bedtime. 2-3 capsules with meals and 1-2 with snacks - hyoscyamine (LEVSIN) 0.125 mg tablet Take 0.125 mg by mouth every 6 hours as needed. 1-2 tablets four times daily as needed - pantoprazole DR (PROTONIX) 40 mg tablet Take 1 tablet by mouth two times a day. Take on empty stomach, 1/2 hr before meal. - omeprazole (PRILOSEC) 40 mg capsule Take 1 capsule by mouth once daily. - levothyroxine (SYNTHROID) 100 mcg tablet Take 1 tablet by mouth once daily. Per [facility]. - colestipol (COLESTID) 1 gram tablet Take 2 tablets by mouth two times a day. - spironolactone (ALDACTONE) 25 mg tablet Take 1 tablet by mouth every afternoon. Per [facility] - olopatadine (PATANOL) 0.1 % ophthalmic solution - EYE ITCH RELIEF 0.025 % (0.035 %) ophthalmic solution instill 1 drop into both eyes twice a day if needed - nitroglycerin sublingual (NITROQUICK) 0.4 mg SL tablet 0.4 mg. - aspirin, enteric coated (ASPIRIN, ENTERIC COATED) 81 mg EC tablet Take 1 tablet by mouth once daily. - atorvastatin (LIPITOR) 20 mg tablet Take 20 mg by mouth once daily. - potassium chloride SR (MICRO-K) 10 mEq CR capsule Take 1 capsule by mouth once daily. Problem List As Of Date 07/27/2024 Noted Resolved Complete spontaneous without mention o*01/01/2005 [...] gastritis [K29.60] 04/08/2021 Colon polyp [K63.5] 07/17/2020 Acquired hypothyroidism [E03.9] 04/16/2024 Right renal atrophy [N26.1] 01/27/2023 10/14/2023 Eczema [L30.9] 07/15/2023 No appetite [R63.0] 07/15/2023 Cirrhosis of liver without asc (more content not included)... Normal [facility]OH)[facility]3 [facility] 25-hydroxyvitamin D3 [Mass/Vol] 67.8 ng/mL Normal 31.0-80.0 [facility] Comment on above: Order Comment: Speci men Type: BLOOD SPECIMEN Ordering Facility: [facility] Address: [address] [place] [address] Performed By: #### 5 763-8 #### [facility] CLIA [id number] [address] [place] [address] [place] Basic metabolic 2000 panelon 07-26-2024 Anion gap [Moles/Vol] 11 mmol/L Normal 8-15 [facility] Comment on above: Order Comment: Speci men Type: BLOOD SPECIMEN Ordering Facility: [facility] Address: [address] [place] [address] Performed By: #### 5 763-8 #### [facility] CLIA [id number] [address] [place] [address] [place] Calcium [Mass/Vol] 9.2 mg/dL Normal 8.5-10.2 [facility] Comment on above: Order Comment: Speci men Type: BLOOD SPECIMEN Ordering Facility: [facility] Address: [address] [place] [address] Performed By: #### 5 763-8 #### [facility] CLIA [id number] [address] [place] [address] [place] Chloride [Moles/Vol] 104 mmol/L Normal 98-107 [facility] Comment on above: Order Comment: Speci men Type: BLOOD SPECIMEN Ordering Facility: [facility] Address: [address] [place] [address] Performed By: #### 5 763-8 #### [facility] CLIA [id number] [address] [place], [place] [address] [place] CO2 [Moles/Vol] 26 mmol/L Normal 22-30 [facility] Comment on above: Order Comment: Speci men Type: BLOOD SPECIMEN Ordering Facility: [facility] Address: [address] [place], [place] [address] Performed By: #### 5 763-8 #### [facility] CLIA [id number] [address] [place] [address] [place] Creatinine [Mass/Vol] 1.25 mg/dL High 0.58-0.96 [facility] Comment on above: Order Comment: Ron jimenez Type: BLOOD SPECIMEN Ordering Facility: [facility] Address: [address] [place] [address] Performed By: #### 5 763-8 #### [facility] CLIA [id number] [address] [place] [address] [facility] Creatinine and Glomerular filtration rate.predicted panel (S/P/Bld) 49 mL/min/1.73m??? Low >=60 [facility] Comment on above: Order Comment: Ron jimenez Type: BLOOD SPECIMEN Ordering Facility: [facility] Address: [address] [place] [address] Result Comment: Sara mated Glomerular Filtration Rate [...] accurately reflect actual GFR. Performed By: #### 5 763-8 #### [facility] CLIA [id number] [address] [place] [address] [place] Glucose [Mass/Vol] 89 mg/dL Normal 74-99 [facility] Comment on above: Order Comment: Ron jimenez Type: BLOOD SPECIMEN Ordering Facility: [facility] Address: [address] [place] [address] Result Comment: The [place] Diabetes Association (ADA) provides guidance for cutoff [...] Standards of Medical Care in Diabetes 2016, [place] Diabetes Association. Diabetes Care. 2016.39(Suppl 1). Performed By: #### 5 763-8 #### [facility] CLIA [id number] [address] [place], [place] [address] [place] Potassium [Moles/Vol] 3.8 mmol/L Normal 3.7-5.1 [facility] Comment on above: Order Comment: Speci men Type: BLOOD SPECIMEN Ordering Facility: [facility] Address: [address] [place] [address] Performed By: #### 5 763-8 #### [facility] CLIA [id number] [address] [place] [address] [place] Sodium [Moles/Vol] 141 mmol/L Normal 136-144 [facility] Comment on above: Order Comment: Speci men Type: BLOOD SPECIMEN Ordering Facility: [facility] Address: [address] [place] [address] Performed By: #### 5 763-8 #### [facility] CLIA [id number] [address] [place] [address] [place] Urea nitrogen [Mass/Vol] 30 mg/dL High 7-21 [facility] Comment on above: Order Comment: Speci men Type: BLOOD SPECIMEN Ordering Facility: [facility] Address: [address] [place] [address] Performed By: #### 5 763-8 #### [facility] CLIA [id number] [address] [place], [place] [address] [place] CBC panel Auto (Bld)on 07-26 Erythrocyte distribution width (RBC) [Ratio] 13.9 % Normal 11.5-15.0 [facility] Comment on above: Order Comment: Speci men Type: BLOOD SPECIMENOrdering Facility: [facility] Address: [address] [place] [address] Performed By: #### 5 8410-2 ####[facility] [id number] [place] [address] [place] Hematocrit (Bld) [Volume fraction] 39.2 % Normal 36.0-46.0 [facility] Comment on above: Order Comment: Speci men Type: BLOOD SPECIMENOrdering Facility: [facility] Address: [address] [place] [address] Performed By: #### 5 8410-2 ####[facility] [id number] [place] [address] [place] Hemoglobin (Bld) [Mass/Vol] 12.8 g/dL Normal 11.5-15.5 [facility] Comment on above: Order Comment: Speci men Type: BLOOD SPECIMENOrdering Facility: [facility] Address: [address] [place] [address] Performed By: #### 5 8410-2 ####[facility] [id number] [place] [address] [place] MCH (RBC) [Entitic mass] 29.2 pg Normal 26.0-34.0 [facility] Comment on above: Order Comment: Speci men Type: BLOOD SPECIMENOrdering Facility: [facility] Address: [address] [place] [address] Performed By: #### 5 8410-2 ####[facility] [id number] [place] [address] [place] MCHC (RBC) [Mass/Vol] 32.7 g/dL Normal 30.5-36.0 [facility] Comment on above: Order Comment: Speci men Type: BLOOD SPECIMENOrdering Facility: [facility] Address: [address] [place] [address] Performed By: #### 5 8410-2 ####[facility] [id number] [address] [address] [place] MCV (RBC) [Entitic vol] 89.3 fL Normal 80.0-100.0 [facility] Comment on above: Order Comment: Speci men Type: BLOOD SPECIMENOrdering Facility: [facility] Address: [address] [place] [address] Performed By: #### 5 8410-2 ####[facility] [id number] [place] [address] [place] Nucleated RBC (Bld) [#/Vol] 10*3/uL Normal <0.01 [facility] Comment on above: Order Comment: Speci men Type: BLOOD SPECIMENOrdering Facility: [facility] Address: [address] [place] [address] Performed By: #### 5 8410-2 ####[facility] [id number] [place] [address] [place] Platelet mean volume (Bld) [Entitic vol] 11.9 fL Normal 9.0-12.7 [facility] Comment on above: Order Comment: Speci men Type: BLOOD SPECIMENOrdering Facility: [facility] Address: [address] [place] [address] Performed By: #### 5 8410-2 ####[facility] [id number] [place] [address] [place] Platelets (Bld) [#/Vol] 211 10*3/uL Normal 150-400 [facility] Comment on above: Order Comment: Speci men Type: BLOOD SPECIMENOrdering Facility: [facility] Address: [address] [place] [address] Performed By: #### 5 8410-2 ####[facility] [id number] [place] [address] [place] RBC (Bld) [#/Vol] 4.39 10*6/uL Normal 3.90-5.20 [facility] Comment on above: Order Comment: Speci men Type: BLOOD SPECIMENOrdering Facility: [facility] Address: [address] [place] [address] Performed By: #### 5 8410-2 ####[facility] [id number] [place] [address] [place] WBC (Bld) [#/Vol] 9.24 10*3/uL Normal 3.70-11.00 [facility] Comment on above: Order Comment: Speci men Type: BLOOD SPECIMENOrdering Facility: [facility] Address: [address] [place] [address] Performed By: #### 5 8410-2 ####[facility] [id number] [address] [place] CNOVon 07-26-2024 CNOV Office Visit (INTMWS ) ROBBYDEEDEEJOELLEN Linares ([id number]) 1965 [address] [facility] Date Time Provider Department 07/26/24 4:40 PM SAM NULL INTMWS During your visit today, we recorded the following information about you: Pulse Respiration Blood pressure Weight 76/minute 18/minute 120/72 100 kg Sam Null MD 07/27/2024 10:30 AM Signed This note was created using [email or web address]. Subjective Patient presents with: Discussion Recording using [employer] software for draft documentation of the visit was discussed with the patient/authorized termite control representative; all questions welcomed and answered. Patient/authorized termite control representative agreed to proceed Joellen is a 59-year-old female with a history of sciatica and arthritis, presenting for a referral to a pain specialist and a letter for her service dogs. Joellen reports a significant exacerbation of her chronic sciatica and arthritis pain following a fall approximately 1.5-2 months ago. She tripped over a metal railing in her mother's yard and fell hard onto her right side, resulting in extensive bruising and swelling. She did not seek medical attention at the time but notes that her pain has been "out of control" since the incident. She describes her pain as "200 plus" on a scale of 1-10. Joellen reports that her sciatica pain, previously managed with Blue Emu, lidocaine patches, and Tylenol Arthritis, has worsened and is now unresponsive to these treatments. The pain, initially localized to her left lower back, has spread to her right lower back and radiates down the back of her right leg. She describes the pain as sharp, burning, and accompanied by numbness, tingling, and a "needle-like" sensation. The pain is exacerbated by standing and sitting, and she is unable to find a comfortable position, leading to significant sleep disturbances. She reports severe insomnia and difficulty sleeping due to the pain, despite being on a CPAP machine for sleep apnea. Joellen also reports increased frequency of falls and a sensation of her legs "giving out," though she is unable to specify which leg is affected. She notes that her right knee is swollen and painful, and she has been off her diclofenac medication for almost a week due to concerns about its effects on her kidneys. She denies fever, sweats, changes in bowel movements, or urination. She reports drinking a gallon of water a day and experiencing dry mouth, which she attributes to her medication. Other specialists: 1) Porfirio Jeff CNP, [facility]. 2) Sridhar Byrnes MD, [facility]. 3) Brittany Anderson CNP, [facility]. 4) Grant Morgan MD, [facility]. 5) Britni Lockwood CNP, [facility] Neprhology. 6) Marii Herzog MD, Bariatric surgery. 7) Lisbet Steel, [facility] Psychology, Bariatric program. 8) Stephanie George PA-C, [facility]. Review of Systems Constitutional: (-) fever, (-) sweats, (+) weight loss, (+) sleep disturbance Ears/Nose/Mouth/Throat: (+) xerostomia Gastrointestinal: (+) abdominal pain, (-) bowel movement changes Genitourinary: (+) urinary frequency, (-) dysuria Musculoskeletal: (+) low back pain, (+) right knee swelling, (+) right knee pain, (+) sciatica Neurological: (+) numbness, (+) tingling, (+) frequent falls, (+) balance problems, (+) radiating pain to right leg Psychiatric: (+) insomnia ACTIVE PROBLEM LIST Asthma (Hcc) Edema Veto On Cpap Gerd (Gastroesophageal Reflux Disease) Irritable Bowel Syndrome With Diarrhea Obesity, Class Iii, Bmi 40-49.9 (Morbid Obesity) Stage 3a Chronic Kidney Disease (Hcc) Atypical Chest Pain Bile-Induced Gastritis Colon Polyp Acquired Hypothyroidism Eczema No Appetite Cirrhosis of Liver Without Ascites, Unspecified Hepatic Cirrhosis Type (Hcc) Acute Pancreatitis (Hcc) History of Right and Left Heart Catheterization Dietary Counseling and Surveillance Bmi 39.0-39.9,Adult Objective BP 120/72 (BP Site: Left Arm, BP Position: Sitting, BP Cuff Size: Large Adult) Pulse 76 Resp 18 Wt 100 kg (220 lb 7.4 oz) LMP (LMP Unknown) BMI 39.68 kg/m? Physical Exam Constitutional: General: She is in acute distress. Appearance: She is not ill-appearing or diaphoretic. Cardiovascular: Heart sounds: Normal heart sounds. Pulmonary: Breath sounds: Normal breath sounds. Abdominal: Tenderness: There is no abdominal tenderness. Musculoskeletal: Thoracic back: No tenderness. Lumbar back: Spasms and tenderness present. No signs of trauma or bony tenderness. Normal range of motion. Positive right straight leg raise test. Negative left straight leg raise test. Right hip: Tenderness present. No deformity or crepitus. Decreased range of motion. Normal strength. Left hip: Normal. Right knee: Swelling present. Decreased range of motion. Tenderness present. Right lower leg: No edema. Left lowe (more content not included)... Normal [facility] Ferritin [facility] 2024 Ferritin [Mass/Vol] 52.0 ng/mL Normal 14.7-205.1 [facility] Comment on above: Order Comment: Speci men Type: BLOOD SPECIMENOrdering Facility: [facility] Address: [address] [place] [address] Performed By: #### 2 777-1, 2276-4, 3016-3 ####[facility] [id number] [place] [address] [place] Folate SerPl-mCncon 07-27-19 Folate [Mass/Vol] 18.7 ng/mL Normal >4.7 [facility] Comment on above: Order Comment: Ron jimenez Type: BLOOD SPECIMENOrdering Facility: [facility] Address: [address] [place] [address] Performed By: #### 2 284-8, 2731-8, 2132-9 ####[facility] [id number] [place] [address] [place] HbA1c (Bld)on 07-26-2024 Average glucose Estimated from glycated hemoglobin (Bld) [Mass/Vol] 97 mg/dL Normal [facility] Comment on above: Order Comment: [facility] Type: BLOOD SPECIMENOrdering Facility: [facility] Address: [address] [place] [address] Result Comment: eAG: (Estimated average glucose) is a calculated value from HgbA1c and is termite control representative of the average blood glucose level in the last 2-3 month period. Performed By: #### 5 5454-3 ####[facility] [id number] [address] STATES OF [facility] HbA1c (Bld) [Mass fraction] 5.0 % Normal 4.3-5.6 [facility] Comment on above: Order Comment: Speci men Type: BLOOD SPECIMENOrdering Facility: [facility] Address: [address] [place] [address] Result Comment: Amer [place] Diabetes Association guidelines indicate that patients with HgbA1c in the range 5.7-6.4% are at increased risk for development of diabetes, and intervention by lifestyle modification may be beneficial. HgbA1c greater or equal to 6.5% is considered diagnostic of diabetes. Performed By: #### 5 5454-3 ####[facility] [id number] [place] [address] [place] Hepatic function 2000 panelo n 05-15-2025 Albumin [Mass/Vol] 4.2 g/dL Normal 3.9-4.9 [facility] Comment on above: Order Comment: Speci men Type: BLOOD SPECIMEN Ordering Facility: [facility] Address: [address] [place] [address] Performed By: #### 5 763-8 #### [facility] CLIA [id number] [address] [place] [address] [place] ALP [Catalytic activity/Vol] 152 U/L High 34-123 [facility] Comment on above: Order Comment: Speci men Type: BLOOD SPECIMEN Ordering Facility: [facility] Address: [address] [place] [address] Performed By: #### 5 763-8 #### [facility] CLIA [id number] [address] [place] [address] [place] ALT [Catalytic activity/Vol] 25 U/L Normal 7-38 [facility] Comment on above: Order Comment: Speci men Type: BLOOD SPECIMEN Ordering Facility: [facility] Address: [address] [place] [address] Performed By: #### 5 763-8 #### [facility] CLIA [id number] [address] [place] [address] [place] AST [Catalytic activity/Vol] 20 U/L Normal 13-35 [facility] Comment on above: Order Comment: Speci men Type: BLOOD SPECIMEN Ordering Facility: [facility] Address: [address] [place] [address] Performed By: #### 5 763-8 #### [facility] CLIA [id number] [address] [place] [address] [place] Bilirubin [Mass/Vol] 0.4 mg/dL Normal 0.2-1.3 [facility] Comment on above: Order Comment: Speci men Type: BLOOD SPECIMEN Ordering Facility: [facility] Address: [address] [place] [address] Performed By: #### 5 763-8 #### [facility] CLIA [id number] [address] [place] [address] [place] Bilirubin.conjugated [Mass/Vol] mg/dL Normal <0.3 [facility] Comment on above: Order Comment: Speci men Type: BLOOD SPECIMEN Ordering Facility: [facility] Address: [address] [place] [address] Performed By: #### 5 763-8 #### [facility] CLIA [id number] [address] [place] [address] [place] Protein [Mass/Vol] 7.1 g/dL Normal 6.3-8.0 [facility] Comment on above: Order Comment: Speci men Type: BLOOD SPECIMEN Ordering Facility: [facility] Address: [address] [place] [address] Performed By: #### 5 763-8 #### [facility] CLIA [id number] [address] [place] [address] [place] Iron and Iron binding capaci ty panelon 07-26-2024 Iron [Mass/Vol] 57 ug/dL Normal 41-186 [facility] Comment on above: Order Comment: Speci men Type: BLOOD SPECIMEN Ordering Facility: [facility] Address: [address] [place] [address] Performed By: #### 5 763-8 #### [facility] CLIA [id number] [address] [place] [address] [place] Iron binding capacity [Mass/Vol] 340 ug/dL Normal 232-386 [facility] Comment on above: Order Comment: Speci men Type: BLOOD SPECIMEN Ordering Facility: [facility] Address: [address] [place] [address] Performed By: #### 5 763-8 #### [facility] CLIA [id number] [address] [place] [address] [facility] [place] Iron/TIBC [Molar ratio] 16.8 % Normal 15.0-57.0 [facility] Comment on above: Order Comment: Speci men Type: BLOOD SPECIMEN Ordering Facility: [facility] Address: [address] [place] [address] Performed By: #### 5 763-8 #### [facility] CLIA [id number] [address] [place] [address] OF [facility] Lipid 1996 panelon 5 Cholesterol [Mass/Vol] 102 mg/dL Normal <200 [facility] Comment on above: Order Comment: Speci men Type: BLOOD SPECIMENOrdering Facility: [facility] Address: [address] [place] [address] Result Comment: <200 mg/dL, Desirable 200-239 mg/dL, Borderline high >239 mg/dL, High Performed By: #### 5 0190-8, 04490-2, 12429-2, 17589-1 ####[facility] [id number] [address] [place] Cholesterol in HDL [Mass/Vol] 43 mg/dL Normal >39 [facility] Comment on above: Order Comment: Speci men Type: BLOOD SPECIMENOrdering Facility: [facility] Address: [address] [place] [address] Result Comment: 40-5 9 mg/dL, Acceptable >59 mg/dL, High: Negative risk factor for coronary heart disease <40 mg/dL, Low: Positive risk factor for coronary heart disease Performed By: #### 5 0190-8, 15169-2, 94163-9, 76978-2 ####[facility] [id number] [address] [place] Cholesterol in LDL [Mass/Vol] 47 mg/dL Normal <100 [facility] Comment on above: Order Comment: Speci men Type: BLOOD SPECIMENOrdering Facility: [facility] Address: [address], [place] [address] Result Comment: <100 mg/dL, Optimal 100-129 mg/dL, Near optimal/above optimal 130-159 mg/dL, Borderline high 160-189 mg/dL, High >189 mg/dL, Very high Secondary prevention optimal LDL Cholesterol levels are recommended to be <70 mg/dL LDL cholesterol is calculated using the Valdez-NIH equation. Performed By: #### 5 0190-8, 46367-5, 27309-3, 46449-0 ####[facility] [id number] [address] [address] [place] Cholesterol in LDL/Cholesterol in HDL [Mass ratio] 1.09 {ratio} Normal <2.54 [facility] Comment on above: Order Comment: Ron jimenez Type: BLOOD SPECIMENOrdering Facility: [facility] Address: [address] [place] [address] Result Comment: Refe bertince: 1. National Cholesterol Education Program ATP III Guideline At-A-Glance Quick Desk Reference: National Heart, Lung, and Blood [place]cho. National Institutes of Health. 2001: NIH Publication No. 01-3305. 2. An International Atherosclerosis Society position paper: global recommendations for the management of dyslipidemia: executive summary, Atherosclerosis. 2014: 232(2):410-413. Performed By: #### 5 0190-8, 68680-5, 78232-3, 61352-2 ####[facility]IA [id number] [address] [address] [place] Cholesterol in VLDL [Mass/Vol] 7 mg/dL Normal <30 [facility] Comment on above: Order Comment: Ron jimenez Type: BLOOD SPECIMENOrdering Facility: [facility] Address: [address] [place] [address] Performed By: #### 5 0190-8, 45393-1, 32436-2, 63820-5 ####[facility] [id number] [facility] [address] [address] [place] Cholesterol non HDL [Mass/Vol] 59 mg/dL Normal <130 [facility] Comment on above: Order Comment: Speci men Type: BLOOD SPECIMENOrdering Facility: [facility] Address: [address] [place] [address] Result Comment: <130 mg/dL, Optimal 130-159 mg/dL, Near optimal/above optimal 160-189 mg/dL, Borderline high 190-219 mg/dL, High >219 mg/dL, Very high Secondary prevention optimal non HDL Cholesterol levels are recommended to be <100 mg/dL Performed By: #### 5 0190-8, 87005-5, 26451-0, 56947-0 ####[facility]IA [id number] [place] [address] [place] Cholesterol.total/Poornima sterol in HDL [Mass ratio] 2.37 {ratio} Normal <5.10 [facility] Comment on above: Order Comment: Speci men Type: BLOOD SPECIMENOrdering Facility: [facility] Address: [address] [place] [address] Performed By: #### 5 0190-8, 84344-9, 45996-7, 09497-3 ####[facility] [id number] [place] [address] [place] FASTING TIME 12 hrs Normal [facility] Comment on above: Order Comment: Speci men Type: BLOOD SPECIMENOrdering Facility: [facility] Address: [address] [place] [address] Performed By: #### 5 0190-8, 88055-1, 60849-8, 79152-6 ####[facility] LABIA [id number] [place] [id number] [place] Triglyceride [Mass/Vol] 50 mg/dL Normal <150 C [facility] Comment on above: Order Comment: Speci men Type: BLOOD SPECIMENOrdering Facility: [facility] Address: [address] [place] [address] Result Comment: <150 mg/dL, Normal 150-199 mg/dL, Borderline high 200-499 mg/dL, High >499 mg/dL, Very high Performed By: #### 5 0190-8, 65488-6, 21799-7, 06716-1 ####[facility] LABCLIA [id number] [place] [address] [place] NICOTINE AND METAB, URon URIN ANABASINE QUANT <5 Normal [facility] Comment on above: Order Comment: Speci men Type: URINE SPECIMENOrdering Facility: [facility] Address: [address] [place] [address] Performed By: #### U NICOT ####[facility] [id number] [place] [address] URIN COTININE QUANT <15 Normal [facility] Comment on above: Order Comment: Speci men Type: URINE SPECIMENOrdering Facility: [facility] Address: [address] [place] [address] Performed By: #### U NICOT ####[facility] [id number] [place] [address] URIN NICOTINE QUANT <15 Normal [facility] Comment on above: Order Comment: Speci men Type: URINE SPECIMENOrdering Facility: [facility] Address: [address] [place] [address] Result Comment: INTE RPRETIVE INFORMATION: Nicotine and Metabolites, Urine, Quantitative Methodology: Quantitative Liquid Chromatography-Tandem Mass Spectrometry Positive cutoff: Nicotine 15 ng/mL Cotinine 15 ng/mL 0-EA-Cyqzwfor 50 ng/mL Anabasine 5 ng/mL For medical [...] developed and its performance characteristics determined by [employer]. It has not been cleared or approved by the US Food and Drug Administration. This test was performed in a CLIA certified laboratory and is intended for clinical purposes. Performed By: [facility] [employer] [address] [place] [address] Stave Grader: Eduardo Wang MD, PhD CLIA Number: [id number] Performed By: #### U NICOT ####[facility] [id number] [place] [address] URINE 3 OH COTININE <50 Normal [facility] Comment on above: Order Comment: Speci men Type: URINE SPECIMENOrdering Facility: [facility] Address: [address] [place] [address] Performed By: #### U NICOT ####[facility] [id number] [place] [address] PTH-Intact SerPl-[facility] 07-12 Parathyrin.intact [Mass/Vol] 93 pg/mL High 15-65 [facility] Comment on above: Order Comment: Speci men Type: BLOOD SPECIMENOrdering Facility: [facility] Address: [address] [place] [address] Performed By: #### 2 284-8, 2731-8, 2132-9 ####[facility] LABCLIA [id number] [place] [id number] [place] Phosphate SerPl-mCncon 07-26 Phosphate [Mass/Vol] 3.2 mg/dL Normal 2.7-4.8 [facility] Comment on above: Order Comment: Speci men Type: BLOOD SPECIMENOrdering Facility: [facility] Address: [address] [place] [address] Performed By: #### 2 777-1, 2276-4, 3016-3 ####[facility] LABCLIA [id number] [place] [address] [place] TOXICOLOGY SCREEN, ROUTINE U RINEon 07-26-2024 Amphetamines Confirm (U) [Mass/Vol] Negative Normal Negative [facility] Comment on above: Order Comment: Speci men Type: BLOOD SPECIMEN Ordering Facility: [facility] Address: [address] [place] [address] Result Comment: Cuto ff threshold at 1000 ng/mL. Performed By: #### 5 763-8 #### [facility] CLIA [id number] [address] [place] [address] [place] BARBITURATES, URINE Negative Normal Negative [facility] Comment on above: Order Comment: Speci men Type: BLOOD SPECIMEN Ordering Facility: [facility] Address: [address] [place] [address] Result Comment: Cuto ff threshold at 200 ng/mL. Performed By: #### 5 763-8 #### [facility] CLIA [id number] [address] [place] [address] [place] BENZODIAZEPINES, UR Negative Normal Negative [facility] Comment on above: Order Comment: Speci men Type: BLOOD SPECIMEN Ordering Facility: [facility] Address: [address] [place] [address] Result Comment: Cuto ff threshold at 200 ng/mL. Performed By: #### 5 763-8 #### [facility] CLIA [id number] [address] [place] [address] [place] Cannabinoids Screen Ql (U) Negative Normal Negative [facility] Comment on above: Order Comment: Speci men Type: BLOOD SPECIMEN Ordering Facility: [facility] Address: [address] [place] [address] Result Comment: Cuto ff threshold at 50 ng/mL. Performed By: #### 5 763-8 #### [facility] CLIA [id number] [address] [place] [address] [place] Cocaine Ql (U) Negative Normal Negative [facility] Comment on above: Order Comment: Speci men Type: BLOOD SPECIMEN Ordering Facility: [facility] Address: [address] [place] [address] Result Comment: Cuto ff threshold at 300 ng/mL. Performed By: #### 5 763-8 #### [facility] CLIA [id number] [address] [place] [address] [place] Ethanol (U) [Mass/Vol] <11 Normal <11 [facility] Comment on above: Order Comment: Speci men Type: BLOOD SPECIMEN Ordering Facility: [facility] Address: [address] [place] [address] Performed By: #### 5 763-8 #### [facility] CLIA [id number] [address] [place] [address] [place] Opiates Screen Ql (U) Negative Normal Negative [facility] Comment on above: Order Comment: Speci men Type: BLOOD SPECIMEN Ordering Facility: [facility] Address: [address] [place] [address] Result Comment: Cuto ff threshold at 300 ng/mL. Performed By: #### 5 763-8 #### [facility] CLIA [id number] [address] [place] [address] [place] oxyCODONE cutoff Screen (U) [Mass/Vol] Negative Normal Negative [facility] Comment on above: Order Comment: Speci men Type: BLOOD SPECIMEN Ordering Facility: [facility] Address: [address] [place] [address] Result Comment: Cuto ff threshold at 100 ng/mL. Performed By: #### 5 763-8 #### [facility] CLIA [id number] [address] [place] [address] [place] Phencyclidine Ql (U) Negative Normal Negative [facility] Comment on above: Order Comment: Speci men Type: BLOOD SPECIMEN Ordering Facility: [facility] Address: [address] [place] [address] Result Comment: Cuto ff threshold at 25 ng/mL. Performed By: #### 5 763-8 #### [facility] CLIA [id number] [address] [place] [address] [place] TSH SerPl-aCncon 07-26-2024 TSH Qn 0.186 m[IU]/L Low 0.270-4.20 0 [facility] Comment on above: Order Comment: Speci men Type: BLOOD SPECIMENOrdering Facility: [facility] Address: [address] [place] [address] Performed By: #### 2 777-1, 2276-4, 3016-3 ####[facility] LABCLIA [id number] [place] [address] [place] VITAMIN B1 (THIAMINE), WHOLE BLOODon 07-26-2024 Thiamine (Bld) [Moles/Vol] 281.4 nmol/L High 84.3-213.3 [facility] Comment on above: Order Comment: [facility] Type: BLOOD SPECIMEN Ordering Facility: [facility] Address: [address] [place] [address] Result Comment: This assay measures the concentration of thiamine diphosphate (TDP), the primary active form of vitamin B1. Approximately 90 percent of vitamin B1 present in whole blood is TDP. Thiamine and thiamine monophosphate, which comprise the remaining 10 percent, are not measured. This test was developed, and its performance characteristics determined by the [facility] Department of Pathology and Laboratory Medicine. It has not been cleared or approved by the FDA. The [facility] Department of Pathology and Laboratory Medicine is regulated under CLIA as qualified to perform high-complexity testing. This test is used for clinical purposes. It should not be regarded as investigational or for research. Performed By: #### B 1WB #### [facility] CLIA [id number] [address] [place] [address] [place] Vit A SerPl-mCncon 5 Retinol [Mass/Vol] 0.61 mg/L Normal 0.30-1.20 [facility] Comment on above: Order Comment: Speci men Type: BLOOD SPECIMENOrdering Facility: [facility] Address: [address] [place], [place] [address] Result Comment: This test was developed, and its performance characteristics determined by the [facility] Department of Pathology and Laboratory Medicine. It has not been cleared or approved by the FDA. The [facility] Department of Pathology and Laboratory Medicine is regulated under CLIA as qualified to perform high-complexity testing. This test is used for clinical purposes. It should not be regarded as investigational or for research. Performed By: #### 2 923-1 ####[facility] LABIA [id number] [place] [address] [place] Vit B12 SerPl-mCncon 025 Cobalamin (Vitamin B12) [Mass/Vol] 624 pg/mL Normal 232-1245 [facility] Comment on above: Order Comment: Speci men Type: BLOOD SPECIMENOrdering Facility: [facility] Address: [address] [place] [address] Performed By: #### 2 284-8, 2731-8, 2132-9 ####[facility] [id number] [place] [address] [place] XR HIP 3V PELV+ AP/LAT RTon 07-26-2024 XR HIP 3V PELV+ AP/LAT RT * * *Final Report* * * DATE OF EXAM: Jul 26 2024 6:38PM [id number] - XR HIP 3V PELV+ AP/LAT RT / PROCEDURE REASON: Right-sided low back pain with right-sided sciatica, unspecified chronicity * * * * Physician Interpretation * * * * PROCEDURE: Lumbar spine, pelvis and right hip INDICATION: Right-sided low back pain with right-sided sciatica, unspecified chronicity .right sided low back pain with right sided sciatica and hip pain. Pt fell 1 month ago and has had the pain since. TECHNIQUE: XR HIP 3V PELV+ AP/LAT RT, XR LUMBAR 3V AP/LAT/L5-S1 COMPARISON: None FINDINGS: Lumbar spine: Mild levoscoliosis and grade 1 L4-5 anterolisthesis. No fracture. Moderate to advanced degenerative disc disease at L2-3 and L5-S1 with mild to moderate degenerative disc disease at the remaining levels. Lower lumbar facet arthrosis without pars defects. Pelvis and right hip: Right hip joint space is maintained. No significant hip osteoarthrosis. Sacroiliac joints and symphysis pubis are maintained. IMPRESSION: Lumbar degenerative changes Climatologist: TAHIRA Transcribe Date/Time: Jul 29 2024 9:08A Dictated by : MAYTE QUIROGA MD This examination was interpreted and the report reviewed and electronically signed by: MAYTE QUIROGA MD on Jul 29 2024 9:10AM EST [id number] Normal [facility] XR LUMBAR 3V AP/LAT/L5-S1on 07-26-2024 XR LUMBAR 3V AP/LAT/L5-S1 * * *Final Report* * * DATE OF EXAM: Jul 26 2024 6:38PM [id number] - XR LUMBAR 3V AP/LAT/L5-S1 / PROCEDURE REASON: Right-sided low back pain with right-sided sciatica, unspecified chronicity * * * * Physician Interpretation * * * * PROCEDURE: Lumbar spine, pelvis and right hip INDICATION: Right-sided low back pain with right-sided sciatica, unspecified chronicity .right sided low back pain with right sided sciatica and hip pain. Pt fell 1 month ago and has had the pain since. TECHNIQUE: XR HIP 3V PELV+ AP/LAT RT, XR LUMBAR 3V AP/LAT/L5-S1 COMPARISON: None FINDINGS: Lumbar spine: Mild levoscoliosis and grade 1 L4-5 anterolisthesis. No fracture. Moderate to advanced degenerative disc disease at L2-3 and L5-S1 with mild to moderate degenerative disc disease at the remaining levels. Lower lumbar facet arthrosis without pars defects. Pelvis and right hip: Right hip joint space is maintained. No significant hip osteoarthrosis. Sacroiliac joints and symphysis pubis are maintained. IMPRESSION: Lumbar degenerative changes Climatologist: [facility] Transcribe Date/Time: Jul 29 2024 9:08A Dictated by : MAYTE QUIROGA MD This examination was interpreted and the report reviewed and electronically signed by: MAYTE QUIROGA MD on Jul 29 2024 9:10AM EST [id number] Normal [facility] Zinc SerPl-mCncon 07-26-2024 Zinc [Mass/Vol] 64 ug/dL Normal 60-120 [facility] Comment on above: Order Comment: Speci men Type: BLOOD SPECIMEN Ordering Facility: [facility] Address: [address] [place] [address] Result Comment: This test was developed, and its performance characteristics determined by the [facility] Department of Pathology and Laboratory Medicine. It has not been cleared or approved by the FDA. The [facility] Department of Pathology and Laboratory Medicine is regulated under CLIA as qualified to perform high-complexity testing. This test is used for clinical purposes. It should not be regarded as investigational or for research. Performed By: #### 5 763-8 #### [facility] CLIA [id number] [address] [place] [address] [place] Esau 07-18-2024 CNPN Telephone (PSYAGR) JOELLEN GANT ([id number]) 1965 F T Date Time Provider Department 07/18/24 PAMELA LOPEZ PSYAGR During your visit today, we recorded the following information about you: JaneneUrszula 07/18/2024 3:41 PM Signed Called the patient to confirm testing tomorrow. Patient stated there is a lot going on right now and needed to reschedule. Patient is rescheduled. Provider is notified. Allergies As of Date: 07/18/2024 Noted Allergy Reaction IV CONTRAST (IODINE) 04/14/2023 7 - Swelling SEASONAL ALLERGIES 04/08/2021 5 - Intolerance Date Reviewed: 07/03/2024 Reviewed by: Sofía Multani APRN.LAST PATTERN GRADER - Fully Assessed Reason for Visit: Appointment [186] Prescriptions as of 07/18/2024 - topiramate (TOPAMAX) 25 mg tablet Take 2 tablets by mouth daily at bedtime. - albuterol HFA (PROAIR HFA) 90 mcg/actuation [...] hands, arms, legs for 1 week.). - carvedilol (COREG) 3.125 mg tablet Take 1 tablet by mouth two times a day. [facility] - dicyclomine (BENTYL) 20 mg tablet Take 1 tablet by mouth three times a day as needed (per [facility]). - torsemide (DEMADEX) 20 mg tablet Take 1 tablet by mouth two times a day. [facility]. - CPAP BiPAP 9/5 cm per [facility]. - cholestyramine-sucrose (QUESTRAN) 4 gram powder TAKE 4 GRAMS BY MOUTH AT BEDTIME. ADMINISTER WITH A MEAL. AVOID O... (REFER TO PRESCRIPTION NOTES). - sucralfate (CARAFATE) 1 gram tablet Take one tablet in the morning and one tablet in the afternoon - cholecalciferol (VITAMIN D3) 50 mcg (2,000 unit) tablet Take 1 tablet by mouth once daily. - CREON 36,000-114,000- 180,000 unit delayed release capsule 1 capsule with meals and at bedtime. 2-3 capsules with meals and 1-2 with snacks - hyoscyamine (LEVSIN) 0.125 mg tablet Take 0.125 mg by mouth every 6 hours as needed. 1-2 tablets four times daily as needed - pantoprazole DR (PROTONIX) 40 mg tablet Take 1 tablet by mouth two times a day. Take on empty stomach, 1/2 hr before meal. - omeprazole (PRILOSEC) 40 mg capsule Take 1 capsule by mouth once daily. - diclofenac, EC, (VOLTAREN) 75 mg EC tablet take 1 tablet by mouth twice a day - levothyroxine (SYNTHROID) 100 mcg tablet Take 1 tablet by mouth once daily. Per [facility]. - colestipol (COLESTID) 1 gram tablet Take 2 tablets by mouth two times a day. - spironolactone (ALDACTONE) 25 mg tablet Take 1 tablet by mouth every afternoon. Per [facility] - olopatadine (PATANOL) 0.1 % ophthalmic solution - EYE ITCH RELIEF 0.025 % (0.035 %) ophthalmic solution instill 1 drop into both eyes twice a day if needed - nitroglycerin sublingual (NITROQUICK) 0.4 mg SL tablet 0.4 mg. - aspirin, enteric coated (ASPIRIN, ENTERIC COATED) 81 mg EC tablet Take 1 tablet by mouth once daily. - atorvastatin (LIPITOR) 20 mg tablet Take 20 mg by mouth once daily. - potassium chloride SR (MICRO-K) 10 mEq CR capsule Take 1 capsule by mouth once daily. Problem List As Of Date 07/18/2024 Noted Resolved Complete spontaneous without mention o*01/01/2005 [...] gastritis [K29.60] 04/08/2021 Colon polyp [K63.5] 07/17/2020 Acquired hypothyroidism [E03.9] 04/16/2024 Right renal atrophy [N26.1] 01/27/2023 10/14/2023 Eczema [L30.9] 07/15/2023 No appetite [R63.0] 07/15/2023 Cirrhosis of liver without ascites, unspecified*11/21/2023 Acute pancreatitis (HCC) [K85.90] 11/22/2023 History of right and left heart catheterization*01/23/2019 Dietary counseling and surveillance [Z71.3] 06/20/2024 BMI 39.0-39.9,adult [Z68.39] 06/20/2024 Encounter Status:Closed by URSZULA ROSE on 07/18 (more content not included)... Normal [facility] CNPN Telephone (AGGENS4) STALINJOELLEN ([id number]) 1965 F CHT Date Time Provider Department 07/17/24 LISBET STEEL4 During your visit today, we recorded the following information about you: Myriam Freire 07/17/2024 10:13 AM Signed VM received from patient requesting to cancel appointment. This is patient's 2nd time cancelling MMPI Testing. Patient forwarded to Dr. Yung Richards. [facility] for patient to call back to reschedule appointment. [email or web address] message sent to patient. Allergies As of Date: 07/17/2024 Noted Allergy Reaction IV CONTRAST (IODINE) 04/14/2023 7 - Swelling SEASONAL ALLERGIES 04/08/2021 5 - Intolerance Date Reviewed: 07/03/2024 Reviewed by: Sofía Multani APRN.LAST PATTERN GRADER - Fully Assessed Reason for Visit: Appointment [186] Prescriptions as of 07/17/2024 - topiramate (TOPAMAX) 25 mg tablet Take 2 tablets by mouth daily at bedtime. - albuterol HFA (PROAIR HFA) 90 mcg/actuation [...] hands, arms, legs for 1 week.). - carvedilol (COREG) 3.125 mg tablet Take 1 tablet by mouth two times a day. [facility]. - dicyclomine (BENTYL) 20 mg tablet Take 1 tablet by mouth three times a day as needed (per [facility]). - torsemide (DEMADEX) 20 mg tablet Take 1 tablet by mouth two times a day. [facility]. - CPAP BiPAP 9/5 cm per [facility]. - cholestyramine-sucrose (QUESTRAN) 4 gram powder TAKE 4 GRAMS BY MOUTH AT BEDTIME. ADMINISTER WITH A MEAL. AVOID O... (REFER TO PRESCRIPTION NOTES). - sucralfate (CARAFATE) 1 gram tablet Take one tablet in the morning and one tablet in the afternoon - cholecalciferol (VITAMIN D3) 50 mcg (2,000 unit) tablet Take 1 tablet by mouth once daily. - CREON 36,000-114,000- 180,000 unit delayed release capsule 1 capsule with meals and at bedtime. 2-3 capsules with meals and 1-2 with snacks - hyoscyamine (LEVSIN) 0.125 mg tablet Take 0.125 mg by mouth every 6 hours as needed. 1-2 tablets four times daily as needed - pantoprazole DR (PROTONIX) 40 mg tablet Take 1 tablet by mouth two times a day. Take on empty stomach, 1/2 hr before meal. - omeprazole (PRILOSEC) 40 mg capsule Take 1 capsule by mouth once daily. - diclofenac, EC, (VOLTAREN) 75 mg EC tablet take 1 tablet by mouth twice a day - levothyroxine (SYNTHROID) 100 mcg tablet Take 1 tablet by mouth once daily. Per [facility]. - colestipol (COLESTID) 1 gram tablet Take 2 tablets by mouth two times a day. - spironolactone (ALDACTONE) 25 mg tablet Take 1 tablet by mouth every afternoon. Per [facility] - olopatadine (PATANOL) 0.1 % ophthalmic solution - EYE ITCH RELIEF 0.025 % (0.035 %) ophthalmic solution instill 1 drop into both eyes twice a day if needed - nitroglycerin sublingual (NITROQUICK) 0.4 mg SL tablet 0.4 mg. - aspirin, enteric coated (ASPIRIN, ENTERIC COATED) 81 mg EC tablet Take 1 tablet by mouth once daily. - atorvastatin (LIPITOR) 20 mg tablet Take 20 mg by mouth once daily. - potassium chloride SR (MICRO-K) 10 mEq CR capsule Take 1 capsule by mouth once daily. Problem List As Of Date 07/17/2024 Noted Resolved Complete spontaneous without mention o*01/01/2005 [...] gastritis [K29.60] 04/08/2021 Colon polyp [K63.5] 07/17/2020 Acquired hypothyroidism [E03.9] 04/16/2024 Right renal atrophy [N26.1] 01/27/2023 10/14/2023 Eczema [L30.9] 07/15/2023 No appetite [R63.0] 07/15/2023 Cirrhosis of liver without ascites, unspecified*11/21/2023 Acute pancreatitis (HCC) [K85.90] 11/22/2023 History of right and left heart catheterization*01/23/2019 Dietary counseling and surveillance [Z71.3] 06/20/2024 BMI 39.0-39.9,adult [Z68.39] 06/20/2024 (more content not included)... Normal [facility] CNOVon 07-03-2024 CNOV Office Visit (RICH 4) JOELLEN GANT ([id number]) 1965 F CHT Date Time Provider Department 07/03/24 2:30 PM SOFÍA MULTANI During your visit today, we recorded the following information about you: Pulse Blood pressure Weight Height 73/minute 112/68 100.6 kg 1.588 m Sofía Multani APRN.LAST PATTERN GRADER 07/03/2024 3:55 PM Signed [facility] FOLLOW UP NOTE HPI: Joellen Gant a 59 year old female for presents for medically supervised weight loss treatment of her obesity related co morbidities. This individual presents for month 10 of 6 required visits. Joellen Gant weight calculation has decreased. When discussing nutrition recommendations she states I am not going to change anything". It was difficult to ask questions and obtain HPI due to patients tangential behavior. Reports having increased LE edema and sciatica pain. She is hoping to get a referral to pain management from her PCP Not using CPAP because her machine broke ; she is waiting for a new machine. HISTORY REVIEWED (electronic chart updated): - medical history - medications - allergies PAST MEDICAL HISTORY Diagnosis Date Acquired hypothyroidism 04/16/[address] Grant Morgan managing Asthma (HCC) 06/13/2008 Atypical chest pain 01/2019 heart cath normal Bile-induced gastritis 04/08/2021 Calcium deposits in tendon and bursa right knee Carpal tunnel syndrome, bilateral 10/16/2015 Chronic cholecystitis 07/22/2020 Chronic midline low back pain without sciatica 07/31/2015 Cirrhosis of liver without ascites, unspecified hepatic cirrhosis type (HCC) 11/21/2023 CKD stage 3a, GFR 45-59 ml/min ([facility]) Colon polyp 07/17/2020 Dermatophytosis of the body Edema 06/13/2008 GERD (gastroesophageal reflux disease) 07/29/2010 Hiatal hernia 07/17/2020 medium sized seen on EGD Infectious mononucleosis Irregular menstrual cycle Irritable bowel syndrome with diarrhea 08/04/2015 Morbid obesity with BMI of 45.0-49.9, adult ([facility]) Obesity, Class III, BMI 40-49.9 (morbid obesity) 07/27/2017 Stage 3a chronic kidney disease ([facility]) 04/08/2021 Tobacco use disorder Unspecified hearing loss left ear - wears hearing aid Unspecified hypothyroidism Social: Social History Tobacco Use Smoking status: Former Current packs/day: 0.00 Average packs/day: 1 pack/day for 15.0 years (15.0 ttl pk-yrs) Types: Cigarettes Start date: 05/30/1994 Quit date: 05/30/2009 Years since quittin.1 Smokeless tobacco: Never Tobacco comments: started age 16 Vaping Use Vaping status: Never Used Substance Use Topics Alcohol use: Not Currently Drug use: Never Medications: Current Outpatient Medications Medication Sig topiramate (TOPAMAX) 25 mg tablet Take 1 tablet by mouth daily at bedtime. albuterol HFA (PROAIR HFA) [...] of hands, arms, legs for 1 week.). carvedilol (COREG) 3.125 mg tablet Take 1 tablet by mouth two times a day. [facility]. dicyclomine (BENTYL) 20 mg tablet Take 1 tablet by mouth three times a day as needed (per [facility]). torsemide (DEMADEX) 20 mg tablet Take 1 tablet by mouth two times a day. [facility]. CPAP BiPAP 9/5 cm per [facility]. cholestyramine-sucrose (QUESTRAN) 4 gram powder TAKE 4 GRAMS BY MOUTH AT BEDTIME. ADMINISTER WITH A MEAL. AVOID O... (REFER TO PRESCRIPTION NOTES). sucralfate (CARAFATE) 1 gram tablet Take one tablet in the morning and one tablet in the afternoon cholecalciferol (VITAMIN D3) 50 mcg (2,000 unit) tablet Take 1 tablet by mouth once daily. CREON 36,000-114,000- 180,000 unit delayed release capsule 1 capsule with meals and at bedtime. 2-3 capsules with meals and 1-2 with snacks hyoscyamine (LEVSIN) 0.125 mg tablet Take 0.125 mg by mouth every 6 hours as needed. 1-2 tablets four times daily as needed pantoprazole DR (PROTONIX) 40 mg tablet Take 1 tablet by mouth two times a day. Take on empty stomach, 1/2 hr before meal. omeprazole (PRILOSEC) 40 mg capsule Take 1 capsule by mouth once daily. diclofenac, EC, (VOLTAREN) 75 mg EC tablet take 1 tablet by mouth twice a day levothyroxine (SYNTHROID) 100 mcg tablet Take 1 tablet by mouth once daily. Per [facility]. colestipol (COLESTID) 1 gram tablet Take 2 tablets by mouth two times a day. spironolactone (ALDACTONE) 25 mg tablet Take 1 tablet by mouth every afternoon. Per [facility] olopatadine (PATANOL) 0 (more content not included)... [facility] 06-28-2024 [place] Telephone (INTMWS) JOELLEN GANT My ([id number]) 1965 F CHT Date Time Provider Department 06/28/24 SAM NULL During your visit today, we recorded the following information about you: Halie Ambriz LPN 06/28/2024 3:33 PM Signed 1)Patient calling asking for referral for Pain Management [facility] fax number is [phone]. She said she had sciatica renetta sides. She is using Blue Emu twice daily or Lidocaine patches 4%. She said she can not sleep at night because of the sciatica. Pending consult, needs diagnosis. 2)Patient asking for letter for her service dogs she has 3 larger dogs and 1 smaller dog. She is planning to move once she finds a place, will need the letter for that. 3)Patient said Porfirio Jeff NP [facility] did lab work and she was asking for the results. Advised her to get results from [facility] since was ordered from that office. She said having increased edema renetta legs. She is waiting for an appt with the [facility] office. Her next appt with PCP is early October. Patient asking to be called when referral is sent and letter is ready for pick pulling machine tender. Please advise Sam Null MD 06/29/2024 5:28 PM Signed Appointment needed. Anita Akhtar, KATIA 07/02/2024 8:41 AM Signed Phoned pt to schedule appt. Pt states her daughter is about to have her baby, and asking pcp office to phone her later on today to schedule appt. Michelle Silvestre MA 07/05/2024 8:57 AM Signed Patient active MyChart. Patient notified via [email or web address] message. Michelle Silvestre MA Allergies As of Date: 06/28/2024 Noted Allergy Reaction IV CONTRAST (IODINE) 04/14/2023 7 - Swelling SEASONAL ALLERGIES 04/08/2021 5 - Intolerance Date Reviewed: 06/20/2024 Reviewed by: Joellen Crowder, RESEARCH INSTRUMENTATION TECHNICIAN.LAST PATTERN GRADER - Fully Assessed Reason for Visit: many requests [Other] Prescriptions as of 07/05/2024 - topiramate (TOPAMAX) 25 mg tablet Take 2 tablets by mouth daily at bedtime. - albuterol HFA (PROAIR HFA) 90 mcg/actuation [...] hands, arms, legs for 1 week.). - carvedilol (COREG) 3.125 mg tablet Take 1 tablet by mouth two times a day. Per [facility]. - dicyclomine (BENTYL) 20 mg tablet Take 1 tablet by mouth three times a day as needed (per [facility]). - torsemide (DEMADEX) 20 mg tablet Take 1 tablet by mouth two times a day. Per [facility]. - CPAP BiPAP 9/5 cm per [facility]. - cholestyramine-sucrose (QUESTRAN) 4 gram powder TAKE 4 GRAMS BY MOUTH AT BEDTIME. ADMINISTER WITH A MEAL. AVOID O... (REFER TO PRESCRIPTION NOTES). - sucralfate (CARAFATE) 1 gram tablet Take one tablet in the morning and one tablet in the afternoon - cholecalciferol (VITAMIN D3) 50 mcg (2,000 unit) tablet Take 1 tablet by mouth once daily. - CREON 36,000-114,000- 180,000 unit delayed release capsule 1 capsule with meals and at bedtime. 2-3 capsules with meals and 1-2 with snacks - hyoscyamine (LEVSIN) 0.125 mg tablet Take 0.125 mg by mouth every 6 hours as needed. 1-2 tablets four times daily as needed - pantoprazole DR (PROTONIX) 40 mg tablet Take 1 tablet by mouth two times a day. Take on empty stomach, 1/2 hr before meal. - omeprazole (PRILOSEC) 40 mg capsule Take 1 capsule by mouth once daily. - diclofenac, EC, (VOLTAREN) 75 mg EC tablet take 1 tablet by mouth twice a day - levothyroxine (SYNTHROID) 100 mcg tablet Take 1 tablet by mouth once daily. Per [facility]. - colestipol (COLESTID) 1 gram tablet Take 2 tablets by mouth two times a day. - spironolactone (ALDACTONE) 25 mg tablet Take 1 tablet by mouth every afternoon. Per [facility] - olopatadine (PATANOL) 0.1 % ophthalmic solution - EYE ITCH RELIEF 0.025 % (0.035 %) ophthalmic solution instill 1 drop into both eyes twice a day if needed - nitroglycerin sublingual (NITROQUICK) 0.4 mg SL tablet 0.4 mg. - aspirin, enteric coated (ASPIRIN, ENTERIC COATED) 81 mg EC tablet Take 1 tablet by mouth once daily. - atorvastatin (LIPITOR) 20 mg tablet Take 20 mg by mouth once daily. - potassium chloride SR (MICRO-K) 10 mEq CR capsule Take 1 capsule by mouth once daily. Problem List As Of Date 06/28/2024 Noted Resolved Complete spontaneous without mention o*01/01/2005 06/26/2010 Tobacco use disorder [F17.200] 06/13/2008 07/31/2015 Asthma [J45.909] 06/13/2008 Non morbid obesity due to excess calories [E66.*06/13/2008 04/08/2021 (more content not included)... Normal [facility] 6 Minute Walk Teston 025 6 Minute Walk Test y [facility] [address] [place] [address] MR#: [id number] Acct: [id number] Name: JOELLEN GANT Rep #: [id number] : 1965 59 From: Alfredo Reyes DO Referring Dr: Brittany Anderson SHIPFITTER APPRENTICE SHIPFITTER APPRENTICE-C Status: REG CLI Location: PSN Date: Sex: F C PSN 6 Minute Walk Test 6 Minute Walk Test 6 Minute Walk Test: 6 Minute Walk Test PSN:6-Minute Walk Test Start: 06/19/24 14:08 Freq: Status: Active Protocol: [id number].6MINW Document 06/19/24 13:45 AEH (Rec: 06/19/24 14:13 AEH [id number]) 6 Minute Walk Test Date Performed 06/19/24 Time Performed 13:45 Height 5 ft 6 in Weight: 217 lb Weight in Pounds [address]: Maru Assistive device None used: Pre-test Oxygen Delivery Room Air Method Pulse Ox (%) 99 Pulse Rate (60-100 62 beats/min) Dyspnea Young Scale ( 0.5 0-10) Exertion Young Scale 6 (6-20) 1st minute Oxygen Delivery Room Air Method Pulse Ox (%) 99 Pulse Rate (60-100 84 beats/min) 2nd minute Oxygen Delivery Room Air Method Pulse Ox (%) 99 Pulse Rate (60-100 83 beats/min) 3rd minute Oxygen Delivery Room Air Method Pulse Ox (%) 98 Pulse Rate (60-100 89 beats/min) Number of Rests 1 Taken Reported Symptoms Dizziness 4th minute Oxygen Delivery Room Air Method Pulse Ox (%) 98 Pulse Rate (60-100 79 beats/min) 5th minute Oxygen Delivery Room Air Method Pulse Ox (%) 95 Pulse Rate (60-100 86 beats/min) 6th minute Oxygen Delivery Room Air Method Pulse Ox (%) 97 Pulse Rate (60-100 92 beats/min) Dyspnea Young Scale ( 2 0-10) Exertion Young Scale 13 (6-20) Post-test Oxygen Delivery Room Air Method Pulse Ox (%) 98 Pulse Rate (60-100 71 beats/min) Full Laps Walked 12 Partial Lap, Number 38 of Tiles Walked Total Distance 746 Walked (ft) 06/19/24 14:12 Cardiopulmonary Services by Kerrie Tucker Three minutes into walk pt rest for approximately 30 seconds due to feeling lightheaded. Initialized on 06/19/24 14:12 - END OF NOTE Interpretation Interpretation: The patient ambulated 746 feet over the course of 6 minutes beginning on room air without assistive devices. Pretesting oxygen saturation was noted to be 99% on room air. With ambulation, the george oxygen saturation was 95%. There was no significant exertional oxygen desaturation. Recommendations Recommendations: There is no indication for the use of supplemental oxygen at this time. 06/25/24 1123 Date Alfredo Reyes DO CC: Date Dictated: 06/25/241121 Date Transcribed: 06/25/241121 Climatologist: Dr. Alfredo Reyes DO Signed Normal [facility] Anion gap in Serum or Plasma Ordered By: Porfirio Jeff on 06-19-2024 Anion gap [Moles/Vol] 12 mmol/L - [facility] BUN/creatinine ratioOrdered By: Porfirio Jeff on 06-19-2024 Urea nitrogen/Creatinine [Mass ratio] 19.2 mg/mg - [facility] Basic Metabolic Profile (BMP )on 06-19-2024 BUN/CRE 19.2 RATIO Normal - [facility] Comment on above: Performed By: #### L 100.0500, L500.2500, L503.7505 #### [facility] [address] [place], [address] Calcium [Mass/Vol] 9.5 mg/dL Normal 7.6-11.0 [facility] Comment on above: Performed By: #### L 100.0500, L500.2500, L503.7505 #### [facility] [address] [place], [address] Chloride [Moles/Vol] 102 mmol/L Normal 98-108 [facility] Comment on above: Performed By: #### L 100.0500, L500.2500, L503.7505 #### [facility] [address] [place], [address] CO2 [Moles/Vol] 26.8 mmol/L Normal 21.0-32.0 [facility] Comment on above: Performed By: #### L 100.0500, L500.2500, L503.7505 #### [facility] [address] [place], [address] Creatinine [Mass/Vol] 1.20 mg/dL Normal 0.70-1.20 [facility] Comment on above: Performed By: #### L 100.0500, L500.2500, L503.7505 #### [facility] [address] [place], [address] ECRCL 58.99 ml/min Normal 50-250 [facility] Comment on above: Performed By: #### L 100.0500, L500.2500, L503.7505 #### [facility] [address] [place], [address] GAP 12 Normal 5-15 [facility] Comment on above: Performed By: #### L 100.0500, L500.2500, L503.7505 #### [facility] [address] [place], [address] GFR/1.73 sq M.predicted among non-blacks MDRD (S/P/Bld) [Vol rate/Area] 52 mL/min/{1.73_m2} Low >60 [facility] Comment on above: Result Comment: mL/m in/1.73m2 CKD-EPI Creatinine Equation (2020) Performed By: #### L 100.0500, L500.2500, L503.7505 #### [facility] [address] [place], [address] Glucose [Mass/Vol] 95 mg/dL Normal 70-99 [facility] Comment on above: Performed By: #### L 100.0500, L500.2500, L503.7505 #### [facility] [address] [place], [address] Potassium [Moles/Vol] 4.5 mmol/L Normal 3.3-5.1 [facility] Comment on above: Performed By: #### L 100.0500, L500.2500, L503.7505 #### [facility] [address] [place], [address] Sodium [Moles/Vol] 141 mmol/L Normal 133-145 [facility] Comment on above: Performed By: #### L 100.0500, L500.2500, L503.7505 #### [facility] [address] [place], [address] Urea nitrogen [Mass/Vol] 23 mg/dL High 4-19 [facility] Comment on above: Performed By: #### L 100.0500, L500.2500, L503.7505 #### [facility] [address] [place], [address] CBC-Complete Blood Cnt No Di ffon 06-19-2024 Erythrocyte distribution width (RBC) [Ratio] 14.1 % Normal 11.6-14.6 [facility] Comment on above: Performed By: #### L 100.0500, L500.2500, L503.7505 #### [facility] [address] [place], [address] Hematocrit (Bld) [Volume fraction] 39.7 % Normal 37-47 [facility] Comment on above: Performed By: #### L 100.0500, L500.2500, L503.7505 #### [facility] [address] [place], [address] Hemoglobin (Bld) [Mass/Vol] 13.2 g/dL Normal 12.0-15.0 [facility] Comment on above: Performed By: #### L 100.0500, L500.2500, L503.7505 #### [facility] [address] [place], [address] MCH (RBC) [Entitic mass] 29.3 pg Normal 27.0-32.0 [facility] Comment on above: Performed By: #### L 100.0500, L500.2500, L503.7505 #### [facility] [address] [place], [address] MCHC (RBC) [Mass/Vol] 33.2 g/dL Normal 32-36 [facility] Comment on above: Performed By: #### L 100.0500, L500.2500, L503.7505 #### [facility] [address] [place], [address] MCV (RBC) [Entitic vol] 88.2 fL Normal 81-99 [facility] Comment on above: Performed By: #### L 100.0500, L500.2500, L503.7505 #### [facility] [address] [place], [address] Platelet mean volume (Bld) [Entitic vol] 11.2 fL Normal 6.2-12.0 [facility] Comment on above: Performed By: #### L 100.0500, L500.2500, L503.7505 #### [facility] [address] [place], [address] Platelets (Bld) [#/Vol] 194 10*3/uL Normal 150-450 [facility] Comment on above: Performed By: #### L 100.0500, L500.2500, L503.7505 #### [facility] [address] [place], [address] RBC (Bld) [#/Vol] 4.50 10*6/uL Normal 4.2-5.4 [facility] Comment on above: Performed By: #### L 100.0500, L500.2500, L503.7505 #### [facility] [address] [place], [address] RDW SD 45.1 fl High 35.1-43.9 [facility] Comment on above: Performed By: #### L 100.0500, L500.2500, L503.7505 #### [facility] [address] [place], [address] WBC (Bld) [#/Vol] 7.8 10*3/uL Normal 4.4-11.0 [facility] Comment on above: Performed By: #### L 100.0500, L500.2500, L503.7505 #### [facility] [address] [place], [address] Carbon dioxide, total [Moles /volume] in Central venous bloodOrdered By: Porfirio Jeff on 06-19-2024 CO2 [Moles/Vol] 26.8 mmol/L 21.0-32.0 [facility] Chest PA and Lateralon 06-19 Chest PA and Lateral [facility] [address] [place] [address] Chest PA and Lateral MR#: [id number] Acct: [id number] Name: JOELLEN GANT Rep #: [id number] : 1965 F 59 From: Sagrario Sanchez MD PCP: Dr. Sam Null MD Status: REG CLI Study: Chest PA and Lateral Date of Exam: 06/19/24 Exam# [id number] Ordering Dr: Porfirio Jeff SHIPFITTER APPRENTICE SHIPFITTER APPRENTICE-C PROCEDURE: CHEST PA AND LATERAL 06/19/2024 REASON FOR EXAM: SOB TECHNIQUE: Frontal and lateral views of the chest. COMPARISON: Two views of the chest FINDINGS: Hardware: None Heart: Cardiomediastinal silhouette is within normal limits. Normal pulmonary vascularity. Mediastinum: Unremarkable Lungs: No focal consolidation. Bones: No acute fractures. RAD/Chest PA and Lateral IMPRESSION: No acute cardiopulmonary abnormality. Reading Location: [facility] CC: SHIPFITTER APPRENTICE-C Porfirio Jeff; Dr. Sam Null MD Climatologist: Signed Normal [facility] Chloride assayOrdered By: Aster Jeff on 06-19-2024 Chloride [Moles/Vol] 102 mmol/L 98-108 [facility] Erythrocyte distribution wid th (RBC) [Ratio]Ordered By: Porfirio Jeff on 06-19-2024 Erythrocyte distribution width (RBC) [Entitic vol] 45.1 fL High 35.1-43.9 [facility] Erythrocyte distribution wid th ratioOrdered By: Porfirio Jeff on 06-19-2024 Erythrocyte distribution width (RBC) [Ratio] 14.1 % 11.6-14.6 [facility] Erythrocyte distribution wid th standard deviationOrdered By: Porfirio Jeff on 06-19-2024 Erythrocyte distribution width (RBC) [Ratio] 45.1 fl High 35.1-43.9 [facility] Estimation of creatinine emilia aranceOrdered By: Porfirio Jeff on 06-19-2024 Estimated Creatinine Clearance Calc 58.99 ml/min 50-250 [facility] GFR/1.73 sq M.predicted saniya g non-blacks MDRD (S/P/Bld) [Vol rate/Area]Ordered By: Porfirio Jeff on 06-19-2024 Estimated GFR (MDRD) Non-Af Amer 52 Low >60 [facility] Comment on above: mL/min/1.73m2 CKD-EP I Creatinine Equation (2020) Glomerular filtration rate ( GFR) estimation/1.73 sq m using serum, plasma, or whole bOrdered By: Porfirio Jeff on 06-19-2024 GFR/1.73 sq M.predicted among non-blacks MDRD (S/P/Bld) [Vol rate/Area] 52 mL/min/{1.73_m2} Low >60 [facility] Comment on above: mL/min/1.73m2 CKD-EP I Creatinine Equation (2020) Hematocrit Auto (Bld) [Volum e fraction]Ordered By: Porfirio Jeff on 06-19-2024 Hematocrit (Bld) [Volume fraction] 39.7 % 37-47 [facility] Hemoglobin measurementOrdere d By: Porfirio Jeff on 06-19-2024 Hemoglobin (Bld) [Mass/Vol] 13.2 g/dL 12.0-15.0 [facility] L503.7505on 06-19-2024 Natriuretic peptide B (Bld) [Mass/Vol] 191 pg/mL Normal <=900 [facility] Comment on above: Result Comment: Hear t Failure Unlikely: < 300 pg/mL Heart Failure Likely < 50 Years: > 450 pg/mL 50-75 Years: > 900 pg/mL >75 Years: > 1800 pg/mL Performed By: #### L 100.0500, L500.2500, L503.7505 #### [facility] [address] [place], [address] MCV (mean corpuscular volume ) determinationOrdered By: Porfirio Jeff on 06-19-2024 MCV (RBC) [Entitic vol] 88.2 fL 81-99 [facility] Mean corpuscular hemoglobin (MCH) determinationOrdered By: Porfirio Jeff on 06-19-2024 MCH (RBC) [Entitic mass] 29.3 pg 27.0-32.0 [facility] Mean corpuscular hemoglobin concentration (MCHC) determinationOrdered By: Porfirio Jeff on 06-19-2024 MCHC (RBC) [Mass/Vol] 33.2 g/dL 32-36 [facility] Mean platelet volume determi nationOrdered By: Porfirio Jeff on 06-19-2024 Platelet mean volume (Bld) [Entitic vol] 11.2 fL 6.2-12.0 [facility] Natriuretic peptide.B prohor raj N-Terminal [Mass/Vol]Ordered By: Porfirio Jeff on 06-19-2024 Natriuretic peptide B (Bld) [Mass/Vol] 191 pg/mL <900 [facility] Comment on above: Heart Failure Unlike ly: < 300 pg/mLHeart Failure Likely< 50 Years: > 450 pg/mL50-75 Years: > 900 pg/mL>75 Years: > 1800 pg/mL Natriuretic peptide.B prohor raj N-Terminal [Mass/volume] in Serum or PlasmaOrdered By: Porfirio Jeff on 06-19-2024 Natriuretic peptide.B prohormone N-Terminal [Mass/Vol] 191 pg/mL <900 [facility] Comment on above: Heart Failure Unlike ly: < 300 pg/mLHeart Failure Likely< 50 Years: > 450 pg/mL50-75 Years: > 900 pg/mL>75 Years: > 1800 pg/mL Office Visit Reporton [address] [facility] [address] [place] [address] OFFICE VISIT Date of Service: MR#: [id number] Acct: [id number] Patient: JOELLEN GANT ANN Rep #: [id number] : 1965 Provider: Reginald Erickson Age/Sex: 59/F Location: [facility] Status: Signed Intake Vital Signs 06/19/24 13:45 06/19/24 15:28 Height 5 ft 6 in 5 ft 6 in Weight: 217 lb BMI 35.0 BP 118/72 Blood Pressure Location Lt brachial Position Sitting Respiration 20 H Pulse 56 L Pulse Source NIBP Pulse Oximetry (%) 98 Oxygen Delivery Method room air Intake Visit Reasons: Amb Documentation 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 Complaint: 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 Inspector Required: No Is patient in pain?: Yes Allergies Iodinated Contrast Media (CT) Allergy (Unknown, Verified 06/19/24 14:55) rash, arm swelling Medications ???Medication ???Instructions ???Recorded ???Confirmed ???Type hydrocortisone 2.5 % topical cream 1 applic topical BID skin 06/19/24 History albuterol sulfate 90 mcg/actuation 2 puff inhalation Q4H PRN Sob / Or 02/13/19 06/19/24 Rx aerosol inhaler (ProAir HFA) Wheezing #18 grams fluticasone propionate 50 2 spray intranasal DAILY nasal 06/19/24 Rx mcg/actuation nasal dryness #9.9 grams spray,suspension (Allergy Relief (fluticasone)) ketotifen fumarate 0.025 % (0.035 1 drp ophthalmic (eye) BID PRN 06/19/24 History %) eye drops (Eye Itch Relief) allergy symptoms olopatadine 0.1 % eye drops 1 drp ophthalmic (eye) BID PRN 06/19/24 History itching diclofenac sodium 75 mg 75 mg PO BID 03/29/23 06/19/24 His tory tablet,delayed release fluticasone propionate 220 2 puff inhalation BID 03/29/2311/05 History mcg/actuation HFA aerosol inhaler tramadol 50 mg tablet 50 mg PO Q6H PRN pain 03/29/2311/05 History aspirin 81 mg tablet,delayed 81 mg PO DAILY@0800 #90 tabs 08/2406/19/24 Rx release atorvastatin 20 mg tablet 20 mg PO DAILY #90 tabs 08/25/23 0 06/19/24 Rx carvedilol 3.125 mg tablet 3.125 mg PO BID heart #180 tabs 06/19/24 Rx nitroglycerin 0.4 mg sublingual 0.4 mg sublingual Q5M PRN 08/25/23 06/19/24 Rx tablet Cardiac/Chest Pain #25 tabs potassium chloride 10 mEq 10 meq PO DAILY #90 caps 08/25/23 05/03/24 Rx capsule,extended release Held on 01/03/24. Instructions: MD Ordered spironolactone 25 mg tablet 25 mg PO DAILY #90 tabs 08/25/23 0 06/19/24 Rx torsemide 20 mg tablet 20 mg PO BID #180 tabs 08/25/23 Rx omeprazole 40 mg capsule,delayed 40 mg PO QAM #90 caps 12/19/2311/05 Rx release fbrwwnqz-dlfj-mku-iron 18 mg-folic 1 tab PO DAILY 01/03/24 06/19/24 History 240 mcg-vit K 120 mcg-herbal tablet ([employer]) levothyroxine 100 mcg tablet 100 mcg PO DAILY #90 tabs 02/21/24 06/19/24 Rx colestipol 1 gram tablet 4 g (4 x 1 gram) PO DAILY diarrhea 02/23/24 06/19/24 Rx #120 tabs dicyclomine 20 mg tablet 20 mg PO TID PRN for abdominal 03/0606/19/24 Rx pain #90 TABLETS pantoprazole 40 mg tablet,delayed 40 mg PO BID #180 tabs 02/23/24 0 06/19/24 Rx release (Protonix) phentermine 30 mg capsule 30 mg PO QDAY #30 caps 03/02/24 Rx cholestyramine (with sugar) 4 gram 4 g PO QHS #368.76 grams 5 06/19/24 Rx oral powder hyoscyamine sulfate 0.125 mg tablet 0.125 mg PO BID-QID PRN for 06/19/24 Rx indigestion #120 TABLETS lejoew-frvxvddu-inzljpo 3 cap PO QAC #300 caps 06/05/24 Rx 36,000-114,000-180,000 unit capsule,delay rel (Creon) cholecalciferol (vitamin D3) 50 50 mcg PO DAILY 06/19/24 06/19/24 History mcg (2,000 unit) capsule sucralfate 1 gram tablet 1 g PO TID #60 TABLETS 06/20/24 R x topiramate 25 mg tablet 25 mg PO QHS 06/28/24 History Have you fallen in the past year?: Yes (a few times a day; <1month) Nursing Note Pt noted requesting referral to Neurology for prescription for gabapentin r/t chronic nerve pain and sciatica. Pt presents reporting multiple symptoms to include: -Dizziness -Syncope -Repeated falls -SOB -Chest Pain: 3+ x daily; tight/sharp/heavy/radiates to back -Loss of balance -headaches (chronic migraines) -Apneic episodes at HS -Restless Legs -Generalized Edema -Joint Pains -Sciatica -Insomnia -Decreased appetite -Stress/anxiety -RLE pain and swelling -Decreased peripheral circulation -Low SPO2 -Fatigue -Weakness -Peripheral neuropathy Patient verbalized that she currently is not seeing her listed PCP and needs a new one. Vital signs as follows: BP: 118/72 HR: 56 SPO2: 98% EKG obtained Patient encouraged to establish care with PCP to manage chronic and overlapping comorbidities. Instructions provided to seek emergency treatment in the event of new or worsening symptoms. Assessment (more content not included)... Normal [facility] Platelet countOrdered By: Aster Jeff on 06-19-2024 Platelets (Bld) [#/Vol] 194 10*3/uL 150-450 [facility] Potassium (Unsp spec) [Mass/ Vol]Ordered By: Porfirio Jeff on 06-19-2024 Potassium [Moles/Vol] 4.5 mmol/L 3.3-5.1 [facility] Potassium measurement (mass/ volume)Ordered By: Porfirio Jeff on 06-19-2024 Potassium (Unsp spec) [Mass/Vol] 4.5 mmol/L 3.3-5.1 [facility] RBC Auto (Bld) [#/Vol]Ordere d By: Porfirio Jeff on 06-19-2024 RBC (Bld) [#/Vol] 4.50 10*6/uL 4.2-5.4 [facility] Serum creatinine measurement (mass/volume)Ordered By: Porfirio Jeff on 06-19-2024 Creatinine [Mass/Vol] 1.20 mg/dL 0.70-1.20 [facility] Serum glucose measurement (m ass/volume)Ordered By: Porfirio Jeff on 06-19-2024 Glucose [Mass/Vol] 95 mg/dL 70-99 [facility] Serum or plasma calcium allison urement (mass/volume)Ordered By: Porfirio Jeff on 06-19-2024 Calcium [Mass/Vol] 9.5 mg/dL 7.6-11.0 [facility] Serum or plasma urea nitroge n measurement (mass/volume)Ordered By: Porfirio Jeff on 06-19-2024 Urea nitrogen [Mass/Vol] 23 mg/dL High 4-19 [facility] Sodium levelOrdered By: Porfirio Jeff on 06-19-2024 Sodium [Moles/Vol] 141 mmol/L 133-145 [facility] White blood cell (WBC) count Ordered By: Porfirio Jeff on 06-19-2024 WBC (Bld) [#/Vol] 7.8 10*3/uL 4.4-11.0 [facility] CNPNon 06-01-2024 CNPN Telephone (AGGENS4) STALINJOELLEN My ([id number]) 1965 F T Date Time Provider Department 06/01/24 LISBET STEEL4 During your visit today, we recorded the following information about you: Myriam Freire 06/01/2024 12:56 PM Signed VM received requesting to cancel appointment - patient sick. Appointment cancelled. LVM for patient to call back to reschedule. Tessellat message sent to patient. Allergies As of Date: 06/01/2024 Noted Allergy Reaction IV CONTRAST (IODINE) 04/14/2023 7 - Swelling SEASONAL ALLERGIES 04/08/2021 5 - Intolerance Date Reviewed: 05/07/2024 Reviewed by: Lisbet Loco LPN - Fully Assessed Prescriptions as of 06/01/2024 - albuterol HFA (PROAIR HFA) 90 mcg/actuation [...] hands, arms, legs for 1 week.). - carvedilol (COREG) 3.125 mg tablet Take 1 tablet by mouth two times a day[facility] - dicyclomine (BENTYL) 20 mg tablet Take 1 tablet by mouth three times a day as needed (per [facility]). - torsemide (DEMADEX) 20 mg tablet Take 1 tablet by mouth two times a day. [facility] - CPAP BiPAP 9/5 cm per [facility]. - cholestyramine-sucrose (QUESTRAN) 4 gram powder TAKE 4 GRAMS BY MOUTH AT BEDTIME. ADMINISTER WITH A MEAL. AVOID O... (REFER TO PRESCRIPTION NOTES). - sucralfate (CARAFATE) 1 gram tablet Take one tablet in the morning and one tablet in the afternoon - cholecalciferol (VITAMIN D3) 50 mcg (2,000 unit) tablet Take 1 tablet by mouth once daily. - CREON 36,000-114,000- 180,000 unit delayed release capsule 1 capsule with meals and at bedtime. 2-3 capsules with meals and 1-2 with snacks - hyoscyamine (LEVSIN) 0.125 mg tablet Take 0.125 mg by mouth every 6 hours as needed. 1-2 tablets four times daily as needed - pantoprazole DR (PROTONIX) 40 mg tablet Take 1 tablet by mouth two times a day. Take on empty stomach, 1/2 hr before meal. - omeprazole (PRILOSEC) 40 mg capsule Take 1 capsule by mouth once daily. - diclofenac, EC, (VOLTAREN) 75 mg EC tablet take 1 tablet by mouth twice a day - levothyroxine (SYNTHROID) 100 mcg tablet Take 1 tablet by mouth once daily. Per [facility]. - colestipol (COLESTID) 1 gram tablet Take 2 tablets by mouth two times a day. - spironolactone (ALDACTONE) 25 mg tablet Take 1 tablet by mouth every afternoon. Per [facility] - olopatadine (PATANOL) 0.1 % ophthalmic solution - EYE ITCH RELIEF 0.025 % (0.035 %) ophthalmic solution instill 1 drop into both eyes twice a day if needed - nitroglycerin sublingual (NITROQUICK) 0.4 mg SL tablet 0.4 mg. - aspirin, enteric coated (ASPIRIN, ENTERIC COATED) 81 mg EC tablet Take 1 tablet by mouth once daily. - atorvastatin (LIPITOR) 20 mg tablet Take 20 mg by mouth once daily. - potassium chloride SR (MICRO-K) 10 mEq CR capsule Take 1 capsule by mouth once daily. Problem List As Of Date 06/01/2024 Noted Resolved Complete spontaneous without mention o*01/01/2005 [...] gastritis [K29.60] 04/08/2021 Colon polyp [K63.5] 07/17/2020 Acquired hypothyroidism [E03.9] 04/16/2024 Right renal atrophy [N26.1] 01/27/2023 10/14/2023 Eczema [L30.9] 07/15/2023 No appetite [R63.0] 07/15/2023 Cirrhosis of liver without ascites, unspecified*11/21/2023 Encounter Status:Closed by MYRIAM FREIRE on 06/01/24 [facility] CNPKalee 05-28-2024 CNPN Telephone (AGGENS4) JOELLEN GANT ([id number]) 1965 F CHT Date Time Provider Department 05/28/24 BURAK SCHRADER AGGENS4 During your visit today, we recorded the following information about you: Katya De La Cruz 05/28/2024 3:56 PM Signed Lvm for pt to c/b and schedule VV with RD next month Allergies As of Date: 05/28/2024 Noted Allergy Reaction IV CONTRAST (IODINE) 04/14/2023 7 - Swelling SEASONAL ALLERGIES 04/08/2021 5 - Intolerance Date Reviewed: 05/07/2024 Reviewed by: Lisbet Loco LPN - Fully Assessed Reason for Visit: Appointment [186] Prescriptions as of 05/28/2024 - albuterol HFA (PROAIR HFA) 90 mcg/actuation [...] hands, arms, legs for 1 week.). - carvedilol (COREG) 3.125 mg tablet Take 1 tablet by mouth two times a day. [facility] - dicyclomine (BENTYL) 20 mg tablet Take 1 tablet by mouth three times a day as needed (per [facility]). - torsemide (DEMADEX) 20 mg tablet Take 1 tablet by mouth two times a day. [facility]. - CPAP BiPAP 9/5 cm per [facility]. - cholestyramine-sucrose (QUESTRAN) 4 gram powder TAKE 4 GRAMS BY MOUTH AT BEDTIME. ADMINISTER WITH A MEAL. AVOID O... (REFER TO PRESCRIPTION NOTES). - sucralfate (CARAFATE) 1 gram tablet Take one tablet in the morning and one tablet in the afternoon - cholecalciferol (VITAMIN D3) 50 mcg (2,000 unit) tablet Take 1 tablet by mouth once daily. - CREON 36,000-114,000- 180,000 unit delayed release capsule 1 capsule with meals and at bedtime. 2-3 capsules with meals and 1-2 with snacks - hyoscyamine (LEVSIN) 0.125 mg tablet Take 0.125 mg by mouth every 6 hours as needed. 1-2 tablets four times daily as needed - pantoprazole DR (PROTONIX) 40 mg tablet Take 1 tablet by mouth two times a day. Take on empty stomach, 1/2 hr before meal. - omeprazole (PRILOSEC) 40 mg capsule Take 1 capsule by mouth once daily. - diclofenac, EC, (VOLTAREN) 75 mg EC tablet take 1 tablet by mouth twice a day - levothyroxine (SYNTHROID) 100 mcg tablet Take 1 tablet by mouth once daily. Per [facility]. - colestipol (COLESTID) 1 gram tablet Take 2 tablets by mouth two times a day. - spironolactone (ALDACTONE) 25 mg tablet Take 1 tablet by mouth every afternoon. Per [facility] - olopatadine (PATANOL) 0.1 % ophthalmic solution - EYE ITCH RELIEF 0.025 % (0.035 %) ophthalmic solution instill 1 drop into both eyes twice a day if needed - nitroglycerin sublingual (NITROQUICK) 0.4 mg SL tablet 0.4 mg. - aspirin, enteric coated (ASPIRIN, ENTERIC COATED) 81 mg EC tablet Take 1 tablet by mouth once daily. - atorvastatin (LIPITOR) 20 mg tablet Take 20 mg by mouth once daily. - potassium chloride SR (MICRO-K) 10 mEq CR capsule Take 1 capsule by mouth once daily. Problem List As Of Date 05/28/2024 Noted Resolved Complete spontaneous without mention o*01/01/2005 [...] gastritis [K29.60] 04/08/2021 Colon polyp [K63.5] 07/17/2020 Acquired hypothyroidism [E03.9] 04/16/2024 Right renal atrophy [N26.1] 01/27/2023 10/14/2023 Eczema [L30.9] 07/15/2023 No appetite [R63.0] 07/15/2023 Cirrhosis of liver without ascites, unspecified*11/21/2023 Encounter Status:Closed by KATYA DE LA CRUZ on 05/28/24 [facility] Pulmonary Visit Reporton Pulmonary Visit Report [facility] [place] [address] [place] [address] OFFICE VISIT Date of Service: 05/03/24 MR#: [id number] Acct: [id number] Name: JOELLEN GANT Rep #: [id number] : 1965 Provider: PIA Anderson Age/Sex: 59/F Location[facility] Status: Signed Assessment and Plan Assessment and Plan (1) 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 apnea: Status: Chronic Plan: Deteriorated. Patient has had 65 pound weight loss, more than 40 pound weight loss since her last office visit. I suspect that she has new Therapy needs. She is agreeable to a retitration study. Plan to follow-up in the office in 3 months, at which time we can evaluate how she has responded to new therapy. (2) Obesity, morbid, BMI 40.0-49.9: Status: Chronic Plan: Improving. The patient has been undergoing dietary consultation with a gastric bypass team. She has successfully lost 65 pounds eating small protein meals every few hours. She is pleased with her results and plans to try to lose an additional 20 to 40 pounds. (3) Dyspnea on exertion: Status: Chronic Plan: Patient reports that she still plans to have her hiatal hernia repaired. She continues to experience shortness of breath on exertion, of unclear etiology. It has not improved with her weight loss. She is agreeable to repeating a pulmonary function test and a 6-minute walk test. She will return to the office once test results are available for review. No change in maintenance medications until I can evaluate the new test results. She has been encouraged to contact the office with any new or worsening symptoms in the meantime. (4) Asthma: Status: Chronic Qualifiers: Asthma severity: unspecified severity Asthma persistence: unspecified Asthma complication type: unspecified Qualified Code(s): J45.909 - Unspecified asthma, uncomplicated Plan: No signs of exacerbation of asthma today. No change in maintenance medications. No additional testing at this time. Contact the office with any signs of new or worsening symptoms. Follow-up in 6 months. (5) Smoking greater than 30 pack years: Status: Chronic Plan: Encourage ongoing smoking cessation. The patient is appropriate for LDCT, ordered accordingly. Plan for her to follow-up in the office after test results are available for review. Orders: Orders Polysomnography with PAP Today G47.33 - 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 apnea (adult) (pediatric) PFT Complete - DLCO, Spirometry b/a bronchodilators, lung volumes Today R06.00 - Dyspnea, unspecified Simple Pulmonary Exercise Test Today R06.00 - Dyspnea, unspecified Low Dose CT Lung Screening Today F17.200 - Nicotine dependence, unspecified, uncomplicated, F17.210 - Nicotine dependence, cigarettes, uncomplicated HPI 6 M FU Chief Complaint: Shortness of breath on exertion HPI Comments Details: This patient presents to the office today to reestablish care for her obstructive sleep apnea and restrictive lung disease. She is ambulatory and on room air. She has not recently been seen in the ED or urgent care for any respiratory illness. She has not required any antibiotics or prednisone for any breathing problems. She is compliant with use of Flovent twice daily. She does report rinsing her mouth out after each use. She denies any medication side effect such as sore throat or thrush. She is also compliant with Flonase daily. She utilizes her albuterol a few times per week. She continues to have shortness of breath when bending over and on exertion. She has a daily cough that can be productive of thick gonzalez to brown-colored sputum, she denies any hemoptysis. She continues to occasionally experience wheezing. She denies any chest pain, chest tightness or palpitations. She has not had any fever, chills or body aches. She has not recently been able to utilize her PAP machine as it is not functioning. The patient continues to struggle with insomnia. If you recall, she quit smoking around May 2009. Patient reports a good response to the recommendations of dietitian has made from her gastric bypass team. She has been eating small protein meals every 2-3 hours. She reports that she has lost over 65 pounds. She is quite pleased to her response. She states that now she may not even require the gastric bypass but will certainly need to proceed with the hiatal hernia repair. No Compliance report available today, her machine is broken. Intake Vital Signs 11/04/23 10:02 05/03/24 12:00 Height 5 ft 5 in 5 ft 5 in Weight: 217 lb BMI 36.1 BP 121/81 H Blood Pressure Location Lt brachial Position Sitting Respiration 18 Pulse 75 Pulse Source Monitor Temp 97.0 F L Temperature Source Temporal Artery Pulse Oximetry (%) 98 Oxygen Delivery Method room air Intake Visit Reasons: 6 M FU Chief Complaint: (more content not included)... Normal [facility] CNOVon 04-20-2024 CNOV Office Visit (BPSLAG ) JOELLEN GANT ([id number]) 1965 F CHT Date Time Provider Department 04/20/24 10:00 AM LISBET STEEL BPSLAG During your visit today, we recorded the following information about you: Weight Height 100.5 kg 1.588 m Lisbet Steel PSYD 04/23/2024 7:45 PM Signed [facility] New Patient Evaluation DATE OF SERVICE: 04/20/2024 CPT CODE: 67124 Psychiatric diagnostic evaluation I spent a total of 46 minutes on the date of the service which included [id number] patient care. IDENTIFYING INFORMATION Joellen Gant is a 59 year old female who is seeking bariatric surgery. Consent form was provided to the patient and reviewed in detail prior to starting the session. MOTIVATION FOR WEIGHT MANAGEMENT: She said her gastro doctor referred her to bariatrics. MEDICAL PROBLEMS ACTIVE PROBLEM LIST Asthma Edema Veto On Cpap Gerd (Gastroesophageal Reflux Disease) Irritable Bowel Syndrome With Diarrhea Obesity, Class Iii, Bmi 40-49.9 (Morbid Obesity) (Hcc) Stage 3a Chronic Kidney Disease (Hcc) Atypical Chest Pain Bile-Induced Gastritis Colon Polyp Acquired Hypothyroidism Eczema No Appetite Cirrhosis of Liver Without Ascites, Unspecified Hepatic Cirrhosis Type (Hcc) MEDICATIONS Current Outpatient Medications Medication Sig albuterol HFA (PROAIR HFA) 90 mcg/actuation inhaler [...] of hands, arms, legs for 1 week.). carvedilol (COREG) 3.125 mg tablet Take 1 tablet by mouth two times a day. [facility]. dicyclomine (BENTYL) 20 mg tablet Take 1 tablet by mouth three times a day as needed (per [facility]). torsemide (DEMADEX) 20 mg tablet Take 1 tablet by mouth two times a day. [facility]. CPAP BiPAP 9/5 cm per [facility]. cholestyramine-sucrose (QUESTRAN) 4 gram powder TAKE 4 GRAMS BY MOUTH AT BEDTIME. ADMINISTER WITH A MEAL. AVOID O... (REFER TO PRESCRIPTION NOTES). sucralfate (CARAFATE) 1 gram tablet Take one tablet in the morning and one tablet in the afternoon cholecalciferol (VITAMIN D3) 50 mcg (2,000 unit) tablet Take 1 tablet by mouth once daily. CREON 36,000-114,000- 180,000 unit delayed release capsule 1 capsule with meals and at bedtime. 2-3 capsules with meals and 1-2 with snacks hyoscyamine (LEVSIN) 0.125 mg tablet Take 0.125 mg by mouth every 6 hours as needed. 1-2 tablets four times daily as needed pantoprazole DR (PROTONIX) 40 mg tablet Take 1 tablet by mouth two times a day. Take on empty stomach, 1/2 hr before meal. omeprazole (PRILOSEC) 40 mg capsule Take 1 capsule by mouth once daily. diclofenac, EC, (VOLTAREN) 75 mg EC tablet take 1 tablet by mouth twice a day levothyroxine (SYNTHROID) 100 mcg tablet Take 1 tablet by mouth once daily. Per [facility]. colestipol (COLESTID) 1 gram tablet Take 2 tablets by mouth two times a day. spironolactone (ALDACTONE) 25 mg tablet Take 1 tablet by mouth every afternoon. Per [facility] olopatadine (PATANOL) 0.1 % ophthalmic solution EYE ITCH RELIEF 0.025 % (0.035 %) ophthalmic solution instill 1 drop into both eyes twice a day if needed nitroglycerin sublingual (NITROQUICK) 0.4 mg SL tablet 0.4 mg. aspirin, enteric coated (ASPIRIN, ENTERIC COATED) 81 mg EC tablet Take 1 tablet by mouth once daily. atorvastatin (LIPITOR) 20 mg tablet Take 20 mg by mouth once daily. potassium chloride SR (MICRO-K) 10 mEq CR capsule Take 1 capsule by mouth once daily. No current facility-administered medications for this visit. ALLERGIES ALLERGIES Allergen Reactions Iv Contrast [Iodine] Swelling Seasonal Allergies Intolerance EATING/WEIGHT HISTORY: Her highest weight as an adult was 299 lbs. The patient reports the following factors as contributing to weight gain: Genetics. She reports a family history of obesity. All the females on her mothers side. Last 3 Encounter Wt Readings: Date: Wt: 04/16/2024 100.5 kg (221 lb 9 oz) 04/13/2024 100 kg (220 lb 7.4 oz) 04/02/2024 102.5 kg (226 lb) The patient has tried weight loss strategies in the past including: She saw a dietitian in [place], The patient denies a history of laxative/diuretic use. The patient denies a history of vomiting to lose weight. The patient denies a history of an eating disorder. The patient has not had treatment for eating disorders in the past. CURRENT WEIGHT LOSS MEDICATIONS: Her doctor has prescribed (more content not included)... Normal [facility] CNOVon 04-16-2024 [facility] Office Visit (INTMWS ) JOELLEN GANT ([id number]) 1965 F T Date Time Provider Department 04/16/24 1:00 PM SAM NULL INTMWS During your visit today, we recorded the following information about you: Temperature Pulse Blood pressure Weight 97.1 degrees 68/minute 98/66 100.5 kg Sam Null MD 04/16/2024 3:55 PM Signed This note was created using NoteWriter. Subjective Joellen Gant is a 59 year old female. She was doing reasonably well and had no new concerns. She was losing weight with her diet and medications. She reported being down 65 pounds. She was diagnosed with cirrhosis 4 months ago, and had a liver biopsy. This was being monitored. Other specialists: 1) Porfirio Jeff CNP, [facility]. 2) Sridhar Byrnes MD, [facility]. 3) Brittany Anderson CNP, [facility]. 4) Grant Morgan MD, [facility]. 5) Britni Lockwood CNP, [facility] Neprhology. 6) Marii Herzog MD, Bariatric surgery. 7) Lisbet Steel, [facility] Psychology, Bariatric program. 8) Stephanie George PA-C, [facility] orthopedics. Review of Systems Constitutional: Negative for fatigue, fever and unexpected weight change. HENT: Negative for congestion. Respiratory: Negative for cough, shortness of breath and wheezing. Cardiovascular: Positive for chest pain, palpitations and leg swelling. Gastrointestinal: Negative for abdominal pain, constipation, diarrhea, nausea and vomiting. Genitourinary: Negative for difficulty urinating and dysuria. Musculoskeletal: Positive for arthralgias. Neurological: Negative for dizziness and headaches. ACTIVE PROBLEM LIST Asthma Edema Veto On Cpap Gerd (Gastroesophageal Reflux Disease) Irritable Bowel Syndrome With Diarrhea Obesity, Class Iii, Bmi 40-49.9 (Morbid Obesity) (Hcc) Stage 3a Chronic Kidney Disease (Hcc) Atypical Chest Pain Bile-Induced Gastritis Colon Polyp Acquired Hypothyroidism Eczema No Appetite Cirrhosis of Liver Without Ascites, Unspecified Hepatic Cirrhosis Type (Hcc) PAST SURGICAL HISTORY Procedure Laterality Date 48 HOUR PH STUDY 07/21/2023 Dr. Herzog COLONOSCOPY SCREENING 07/17/2020 CT BIOPSY LIVER NEEDLE PERC 01/04/2024 EGD WITH BIOPSY(S) 07/17/2020 medium sized hiatal hernia; Dr. Escalante EGD WITH BIOPSY(S) 07/21/2023 3 cm hiatal hernia; Dr. Herzog ESOPHAGEAL MANOMETRY 07/21/2023 Dr. Herzog LAPS SURG CHOLECYSTECTOMY W/CHOLANGIOGRAPHY 07/22/2020 [facility] LEFT HEART CATH,PERCUTANEOUS 01/23/2019 L AND R heart catheterization vamshi. Social History Tobacco Use Smoking status: Former Current packs/day: 0.00 Average packs/day: 1 pack/day for 15.0 years (15.0 ttl pk-yrs) Types: Cigarettes Start date: 05/30/1994 Quit date: 05/30/2009 Years since quittin.8 Smokeless tobacco: Never Tobacco comments: started age 16 Vaping Use Vaping status: Never Used Substance Use Topics Alcohol use: Not Currently Drug use: Never Current Outpatient Medications Medication Sig cholestyramine-sucrose (QUESTRAN) 4 gram powder TAKE 4 GRAMS BY MOUTH AT BEDTIME. ADMINISTER WITH A MEAL. AVOID O... (REFER TO PRESCRIPTION NOTES). sucralfate (CARAFATE) 1 gram tablet Take one tablet in the morning and one tablet in the afternoon cholecalciferol (VITAMIN D3) 50 mcg (2,000 unit) tablet Take 1 tablet by mouth once daily. CREON 36,000-114,000- 180,000 unit delayed release capsule 1 capsule with meals and at bedtime. 2-3 capsules with meals and 1-2 with snacks hyoscyamine (LEVSIN) 0.125 mg tablet Take 0.125 mg by mouth every 6 hours as needed. 1-2 tablets four times daily as needed pantoprazole DR (PROTONIX) 40 mg tablet Take 1 tablet by mouth two times a day. Take on empty stomach, 1/2 hr before meal. omeprazole (PRILOSEC) 40 mg capsule Take 1 capsule by mouth once daily. diclofenac, EC, (VOLTAREN) 75 mg EC tablet take 1 tablet by mouth twice a day levothyroxine (SYNTHROID) 100 mcg tablet Take 1 tablet by mouth once daily. Per [facility]. colestipol (COLESTID) 1 gram tablet Take 2 tablets by mouth two times a day. spironolactone (ALDACTONE) 25 mg tablet Take 1 tablet by mouth every afternoon. Per [facility] olopatadine (PATANOL) 0.1 % ophthalmic solution EYE ITCH RELIEF 0.025 % (0.035 %) ophthalmic solution instill 1 drop into both eyes twice a day if needed nitroglycerin sublingual (NITROQUICK) 0.4 mg SL tablet 0.4 mg. aspirin, enteric coated (ASPIRIN, ENTERIC COATED) 81 mg EC tablet Take 1 tablet by mouth once daily. atorvastatin (LIPITOR) 20 mg tablet Take 20 mg by mouth once daily. potassium chloride SR (MICRO-K) 10 mEq CR capsule Take 1 capsule by mouth once daily. albuterol HFA (PROAIR HFA) 90 mcg/actuation inhaler Inhale 2 Puffs as instructed every 4 hours as needed. fluticasone (FLONASE) 50 mcg/actuation nasal spray instill 2 sprays into each nostril o (more content not included)... Normal [facility] No Panel Informationon 04-14 Interpretation and review of laboratory results Abnormal [facility] PROTEIN / CREATININE RATIOon 04-14-2024 Protein/Creatinine (U) [Mass ratio] 0.13 mg/mg NINF - 0.15 mg/mg [facility] Comment on above: Adult Proteinuria Ca tegories: <0.15 mg/mg is considered normal to mildly increased 0.15 - 0.50 mg/mg is considered moderately increased >0.50 mg/mg is considered severely increased KDIGO. (2013). KDIGO 2012 Clinical Practice Guideline for the Evaluation and Management of Chronic Kidney Disease. Official Journal of the International Society of Nephrology, 3(1), 1-150. PTH INTACTon 04-14-2024 Parathyrin.intact [Mass/Vol] 179 pg/mL High 15 - 65 pg/mL [facility] Protein/Creatinine (U) [Mass ratio]on 04-14-2024 Creatinine (U) [Mass/Vol] 37.9 mg/dL 20.0 - 300.0 mg/dL [facility] Interpretation and review of laboratory results Normal [facility] Protein (U) [Mass/Vol] 5 mg/dL 0 - 2 0 mg/dL [facility] Renal function 2000 panelon 04-14-2024 Albumin [Mass/Vol] 4.4 g/dL 3.9 - 4.9 g/dL [facility] Anion gap [Moles/Vol] 15 mmol/L 8 - 15 mmol/L [facility] Calcium [Mass/Vol] 9.6 mg/dL 8.5 - 10. 2 mg/dL [facility] Chloride [Moles/Vol] 100 mmol/L 98 - 10 7 mmol/L [facility] CO2 [Moles/Vol] 28 mmol/L 22 - 30 mmol/L [facility] Creatinine [Mass/Vol] 1.25 mg/dL High 0.58 - 0.96 mg/dL [facility] GFR/1.73 sq M.predicted among non-blacks MDRD (S/P/Bld) [Vol rate/Area] 49 mL/min/{1.73_m2} Low - PINF [facility] Comment on above: Estimated Glomerular Filtration Rate (eGFR) is calculated using the 2020 CKD-EPI creatinine equation. This equation utilizes serum creatinine, sex, and age as parameters. The creatinine assay has traceable calibration to isotope dilution-mass spectrometry. Refer to KDIGO guidelines for clinical interpretation. In patients with unstable renal function, e.g. those with acute kidney injury, the eGFR may not accurately reflect actual GFR. Glucose [Mass/Vol] 91 mg/dL 74 - 99 mg/dL [facility] Comment on above: The [place] Di[employer] Association (ADA) provides guidance for cutoff values [...] Standards of Medical Care in Diabetes 2016, [place] [employer]. Diabetes Care. 2016.39(Suppl 1). Phosphate [Mass/Vol] 3.4 mg/dL 2.7 - 4 .8 mg/dL [facility] Potassium [Moles/Vol] 4.1 mmol/L 3.7 - 5.1 mmol/L [facility] Sodium [Moles/Vol] 143 mmol/L 136 - 144 mmol/L [facility] Urea nitrogen [Mass/Vol] 22 mg/dL High 7 - 21 mg/dL [facility] CBC panel Auto (Bld)on 04-13 Erythrocyte distribution width (RBC) [Ratio] 14.6 % 11.5 - 15.0 % [facility] Hematocrit (Bld) [Volume fraction] 41.4 % 36.0 - 46.0 % [facility] Hemoglobin (Bld) [Mass/Vol] 13.8 g/dL 11.5 - 15.5 g/dL [facility] Interpretation and review of laboratory results Normal [facility] MCH (RBC) [Entitic mass] 28.9 pg 26.0 - 34.0 pg [facility] MCHC (RBC) [Mass/Vol] 33.3 g/dL 30.5 - 36.0 g/dL [facility] MCV (RBC) [Entitic vol] 86.6 fL 80.0 - 100.0 fL [facility] Nucleated RBC (Bld) [#/Vol] NINF [facility] Platelet mean volume (Bld) [Entitic vol] 10.9 fL 9.0 - 12.7 fL [facility] Platelets (Bld) [#/Vol] 210 10*3/uL [facility] RBC (Bld) [#/Vol] 4.78 10*6/uL 3.90 - 5.20 m/uL [facility] WBC (Bld) [#/Vol] 8.67 10*3/uL [facility] Erythrocyte distribution width (RBC) [Ratio] 14.6 % Normal 11.5-15.0 [facility] Comment on above: Order Comment: Speci men Type: BLOOD SPECIMENOrdering Facility: [facility] Address: [address] [place] [address] Performed By: #### 5 8410-2 ####[facility] LABCLIA [id number] [place] [address] [place] Hematocrit (Bld) [Volume fraction] 41.4 % Normal 36.0-46.0 [facility] Comment on above: Order Comment: Speci men Type: BLOOD SPECIMENOrdering Facility: [facility] Address: [address] [place] [address] Performed By: #### 5 8410-2 ####[facility] LABCLIA [id number] [place] [id number] [place] Hemoglobin (Bld) [Mass/Vol] 13.8 g/dL Normal 11.5-15.5 [facility] Comment on above: Order Comment: Speci men Type: BLOOD SPECIMENOrdering Facility: [facility] Address: [address] [place] [address] Performed By: #### 5 8410-2 ####[facility] LABCLIA [id number] [address] MCH (RBC) [Entitic mass] 28.9 pg Normal 26.0-34.0 [facility] Comment on above: Order Comment: Speci men Type: BLOOD SPECIMENOrdering Facility: [facility] Address: [address] [place] [address] Performed By: #### 5 8410-2 ####DOREENNASIM [facility] LABCLIA [id number] [address] MCHC (RBC) [Mass/Vol] 33.3 g/dL Normal 30.5-36.0 [facility] Comment on above: Order Comment: Speci men Type: BLOOD SPECIMENOrdering Facility: [facility] Address: [address] [place] [address] Performed By: #### 5 8410-2 ####[facility] LABCLIA [id number] [address] MCV (RBC) [Entitic vol] 86.6 fL Normal 80.0-100.0 [facility] Comment on above: Order Comment: Speci men Type: BLOOD SPECIMENOrdering Facility: [facility] Address: [address] [place] [address] Performed By: #### 5 8410-2 ####KAMILLAGEMINI [facility] LABCLIA [id number] [address] Nucleated RBC (Bld) [#/Vol] 10*3/uL Normal <0.01 [facility] Comment on above: Order Comment: Speci men Type: BLOOD SPECIMENOrdering Facility: [facility] Address: [address] [place] [address] Performed By: #### 5 8410-2 ####STRONGMilagrosNASIM [facility] LABCLIA [id number] [address] Platelet mean volume (Bld) [Entitic vol] 10.9 fL Normal 9.0-12.7 [facility] Comment on above: Order Comment: Speci men Type: BLOOD SPECIMENOrdering Facility: [facility] Address: [address] [place] [address] Performed By: #### 5 8410-2 ####[facility] LABCLIA [id number] [address] Platelets (Bld) [#/Vol] 210 10*3/uL Normal 150-400 [facility] Comment on above: Order Comment: Speci men Type: BLOOD SPECIMENOrdering Facility: [facility] Address: [address] [place] [address] Performed By: #### 5 8410-2 ####[facility] LABCLIA [id number] [address] [place] [facility] RBC (Bld) [#/Vol] 4.78 10*6/uL Normal 3.90-5.20 [facility] Comment on above: Order Comment: Speci men Type: BLOOD SPECIMENOrdering Facility: [facility] Address: [address] [place] [address] Performed By: #### 5 8410-2 ####[facility] LABIA [id number] [address] WBC (Bld) [#/Vol] 8.67 10*3/uL Normal 3.70-11.00 [facility] Comment on above: Order Comment: Speci men Type: BLOOD SPECIMENOrdering Facility: [facility] Address: [address] [place] [address] Performed By: #### 5 8410-2 ####STRONGGEMINI [facility] LABCLIA [id number] [place] [id number] [facility] CNOVon 04-13-2024 CNOV Office Visit ([facility] ) JOELLEN GANT ([id number]) 1965 F T Date Time Provider Department 04/13/24 2:00 PM BRITNI LOCKWOOD During your visit today, we recorded the following information about you: Pulse Blood pressure Weight 68/minute 114/80 100 kg Britni Lockwood, RESEARCH INSTRUMENTATION TECHNICIAN.LAST PATTERN GRADER 04/18/2024 1:07 PM Signed [facility] SERVICE DATE: 04/13/2024 SERVICE TIME: 2:20 PM CHIEF COMPLAINT: Follow up CKD HPI: Ms. 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 Feels well today. Feeling energetic today with rapid fire conversation. BPs at home not checked. Weights: Down 40 lbs since June 2023. Following with bariatrics at [facility]; Psych and RD. Still considering surgical options but may just continue on this route. Medication adherence is good. Still taking Voltaren BID - discussed in-depth. Follows low salt diet. No table salt. Drinking > 2 liters water per day Assessment/Plan from [facility] with me on 01/20/24. -Labs to be done today and prior to next visit. -Stop Voltaren or reduce to the lowest dose -Reduce Torsemide to 20 mg daily PAST MEDICAL HISTORY: ACTIVE PROBLEM LIST Asthma Edema Veto On Cpap Gerd (Gastroesophageal Reflux Disease) Irritable Bowel Syndrome With Diarrhea Obesity, Class Iii, Bmi 40-49.9 (Morbid Obesity) (Hcc) Stage 3a Chronic Kidney Disease (Hcc) Atypical Chest Pain Bile-Induced Gastritis Colon Polyp Subclinical Hypothyroidism Eczema No Appetite MEDICATIONS: cholestyramine-sucrose (QUESTRAN) 4 gram powder TAKE 4 GRAMS BY MOUTH AT BEDTIME. ADMINISTER WITH A MEAL. AVOID O... (REFER TO PRESCRIPTION NOTES). sucralfate (CARAFATE) 1 gram tablet Take one tablet in the morning and one tablet in the afternoon torsemide (DEMADEX) 20 mg tablet Take 1 tablet by mouth once daily. cholecalciferol (VITAMIN D3) 50 mcg (2,000 unit) tablet Take 1 tablet by mouth once daily. CREON 36,000-114,000- 180,000 unit delayed release capsule [...] Take 1 capsule by mouth once daily. diclofenac, EC, (VOLTAREN) 75 mg EC tablet take 1 tablet by mouth twice a day levothyroxine (SYNTHROID) 100 mcg tablet Take 1 tablet by mouth once daily. Per [facility]. colestipol (COLESTID) 1 gram tablet Take [...] mask of choice, HUMIDITY. LIFETIME SUPPLIES. DME: [facility] ALLERGIES: ALLERGIES Allergen Reactions Iv Contrast [Iodine] Swelling Seasonal Allergies Intolerance PHYSICAL EXAM: BP 114/80 (BP Site: Left Arm, BP Position: Sitting, BP Cuff Size: Large Adult) Pulse 68 Wt 100 kg (220 lb 7.4 oz) LMP (LMP Unknown) BMI 39.68 kg/m? BP - standardized method Pulse 1 BP #1: 121/81 Pulse #1: 68 beats/min 2 BP #2 : 121/82 Pulse #2 : 68 beats/min 3 BP #3 : 100/76 Pulse #3 : 68 beats/min Average Average BP: 114/80 Average Pulse: 68 beats/min BP cuff location BP cuff location: Left upper arm BP cuff size BP cuff size: regular adult Constitutional:No acute distress, Respon (more content not included)... Normal [facility] PTH-Intact SerPl-mCncon 03-16 Parathyrin.intact [Mass/Vol] 179 pg/mL High 15-65 [facility] Comment on above: Order Comment: Speci men Type: BLOOD SPECIMEN Ordering Facility: [facility] Address: [address] [place] [address] Performed By: #### 5 763-8 #### [facility] CLIA [id number] [address] [place] [address] [place] Prot/Creat Uron 04-13-2024 Protein/Creatinine (U) [Mass ratio] 0.13 mg/mg Normal <0.15 [facility] Comment on above: Order Comment: Speci men Type: URINE SPECIMENOrdering Facility: [facility] Address: [address] [place] [address] Result Comment: Adul t Proteinuria Categories: <0.15 mg/mg is considered normal to mildly increased 0.15 - 0.50 mg/mg is considered moderately increased >0.50 mg/mg is considered severely increased KDIGO. (2013). KDIGO 2012 Clinical Practice Guideline for the Evaluation and Management of Chronic Kidney Disease. Official Journal of the International Society of Nephrology, 3(1), 1150. Performed By: #### 2 890-2 ####[facility] LABCLIA [id number] [place] [id number] [place] Protein/Creatinine (U) [Mass ratio]on 04-13-2024 Creatinine (U) [Mass/Vol] 37.9 mg/dL Normal 20.0-300.0 [facility] Comment on above: Order Comment: Speci men Type: URINE SPECIMENOrdering Facility: [facility] Address: [address] [place] [address] Performed By: #### 2 890-2 ####[facility] LABCLIA [id number] [place] [address] [place] Protein (U) [Mass/Vol] 5 mg/dL Normal 0-20 [facility] Comment on above: Order Comment: Speci men Type: URINE SPECIMENOrdering Facility: [facility] Address: [address] [place] [address] Performed By: #### 2 890-2 ####[facility] LABIA [id number] [place] [address] [place] Renal function 2000 panelon 04-13-2024 Albumin [Mass/Vol] 4.4 g/dL Normal 3.9-4.9 [facility] Comment on above: Order Comment: Speci men Type: BLOOD SPECIMEN Ordering Facility: [facility] Address: [address] [place], [place] [address] Performed By: #### 5 763-8 #### [facility] CLIA [id number] [address] [place] [address] [place] Anion gap [Moles/Vol] 15 mmol/L Normal 8-15 [facility] Comment on above: Order Comment: Speci men Type: BLOOD SPECIMEN Ordering Facility: [facility] Address: [address] [place] [address] Performed By: #### 5 763-8 #### [facility] CLIA [id number] [address] [place] [address] [place] Calcium [Mass/Vol] 9.6 mg/dL Normal 8.5-10.2 [facility] Comment on above: Order Comment: Speci men Type: BLOOD SPECIMEN Ordering Facility: [facility] Address: [address] [place] [address] Performed By: #### 5 763-8 #### [facility] CLIA [id number] [address] [place] [address] [place] Chloride [Moles/Vol] 100 mmol/L Normal 98-107 [facility] Comment on above: Order Comment: Speci men Type: BLOOD SPECIMEN Ordering Facility: [facility] Address: [address] [place] [address] Performed By: #### 5 763-8 #### [facility] CLIA [id number] [address] [place] [address] [place] CO2 [Moles/Vol] 28 mmol/L Normal 22-30 [facility] Comment on above: Order Comment: Speci men Type: BLOOD SPECIMEN Ordering Facility: [facility] Address: [address] [place] [address] Performed By: #### 5 763-8 #### [facility] CLIA [id number] [address] [place] [address] [place] Creatinine [Mass/Vol] 1.25 mg/dL High 0.58-0.96 [facility] Comment on above: Order Comment: Speci men Type: BLOOD SPECIMEN Ordering Facility: [facility] Address: [address] [place] [address] Performed By: #### 5 763-8 #### [facility] CLIA [id number] [address] [place] [address] [place] Creatinine and Glomerular filtration rate.predicted panel (S/P/Bld) 49 mL/min/1.73m??? Low >=60 [facility] Comment on above: Order Comment: Ron jimenez Type: BLOOD SPECIMEN Ordering Facility: [facility] Address: [address] [place] [address] Result Comment: Sara mated Glomerular Filtration Rate [...] accurately reflect actual GFR. Performed By: #### 5 763-8 #### [facility] CLIA [id number] [address] [place] [address] [place] Glucose [Mass/Vol] 91 mg/dL Normal 74-99 [facility] Comment on above: Order Comment: Ron jimenez Type: BLOOD SPECIMEN Ordering Facility: [facility] Address: [address] [place] [address] Result Comment: The [place] Diabetes Association (ADA) provides guidance for cutoff [...] Standards of Medical Care in Diabetes 2016, [place] [employer] Association. Diabetes Care. 2016.39(Suppl 1). Performed By: #### 5 763-8 #### [facility] CLIA [id number] [address] [place] [address] [place] Phosphate [Mass/Vol] 3.4 mg/dL Normal 2.7-4.8 [facility] Comment on above: Order Comment: Ron jimenez Type: BLOOD SPECIMEN Ordering Facility: [facility] Address: [address] [place] [address] Performed By: #### 5 763-8 #### [facility] CLIA [id number] [address] [place] [address] [place] Potassium [Moles/Vol] 4.1 mmol/L Normal 3.7-5.1 [facility] Comment on above: Order Comment: Speci men Type: BLOOD SPECIMEN Ordering Facility: [facility] Address: [address] [place] [address] Performed By: #### 5 763-8 #### [facility] CLIA [id number] [address] [place] [address] [place] Sodium [Moles/Vol] 143 mmol/L Normal 136-144 [facility] Comment on above: Order Comment: Speci men Type: BLOOD SPECIMEN Ordering Facility: [facility] Address: [address] [place] [address] Performed By: #### 5 763-8 #### [facility] CLIA [id number] [address] [place] [address] [place] Urea nitrogen [Mass/Vol] 22 mg/dL High 7-21 [facility] Comment on above: Order Comment: Speci men Type: BLOOD SPECIMEN Ordering Facility: [facility] Address: [address] [place] [address] Performed By: #### 5 763-8 #### [facility] CLIA [id number] [address] [place] [address] [place] Esau 04-05-2024 ERICKN Telephone (AGGENS4) JOELLEN GANT ([id number]) 1965 F CHT Date Time Provider Department 04/05/24 MARII HERZOG4 During your visit today, we recorded the following information about you: Cassie Suh RN 04/05/2024 10:01 AM Addendum MDT: Psychological evaluation part 1 completed 03/26. Some concerns: 1. She expressed several times experiencing memory problems. She stated she was tested for this while applying for disability but couldn?t provide details. 2. She expressed having a history of trauma and endorsed symptoms that could be indicative of OCD type behaviors including a history of hoarding behaviors. 3. She also was hypomanic during the session and struggled with staying focused and on task. 4. She repeatedly stated that she did not have a mental illness. The plan: The patient will be seen in office for her next appointment. She was open to completing some neuropsychology screeners as a part of her intake, so we will start there. She will likely be referred for a full neuropsychology assessment based on the screening. We will schedule her for the MMPI to get some concrete data on symptoms, especially since she is currently denying mental health concerns. At this point, I?m not certain she will clear psychology. She is open to looking into the medical weight management route. MDT recommendations: Place a referral for OM, Dr. Steel to cont to work with her. Keep on surgical track whille seeing OM . MDT F/U, Sofía Multani NP has placed the referral for Obesity Medicine. Pt will also cont with Dr. Steel. Upcoming appointment with EILEEN. Pt to stay in [facility] while working with OM. Cassie Suh, RN, BSN Bariatric Front Office Director Allergies As of Date: 04/05/2024 Noted Allergy Reaction IV CONTRAST (IODINE) 04/14/2023 7 - Swelling SEASONAL ALLERGIES 04/08/2021 5 - Intolerance Date Reviewed: 03/01/2024 Reviewed by: Carolyn Stacy LPN - Fully Assessed Reason for Visit: MDT [Other] Prescriptions as of 04/05/2024 - cholestyramine-sucrose (QUESTRAN) 4 gram powder TAKE 4 GRAMS BY MOUTH AT BEDTIME. ADMINISTER WITH A MEAL. AVOID O... (REFER TO PRESCRIPTION NOTES). - sucralfate (CARAFATE) 1 gram tablet Take one tablet in the morning and one tablet in the afternoon - torsemide (DEMADEX) 20 mg tablet Take 1 tablet by mouth once daily. - cholecalciferol (VITAMIN D3) 50 mcg (2,000 [...] tablet by mouth twice a day - levothyroxine (SYNTHROID) 100 mcg tablet Take 1 tablet by mouth once daily. Per [facility]. - colestipol (COLESTID) 1 gram tablet [...] mask of choice, HUMIDITY. LIFETIME SUPPLIES. DME: [facility] Problem List As Of Date 04/05/2024 Noted Resolved Complete spontaneous without mention o*01/01/2005 06/26/2010 Tobacco use disorder [F17.200] 06/13/2008 07/31/2015 Asthma [J45.909] 06/13/2008 Non morbid ob (more content not included)... Normal [facility] Gastroenterology Visit Repor ton 03-02-2024 Gastroenterology Visit Report [facility]enter[facility] [address] [place] [address] OFFICE VISIT Date of Service: 03/02/24 MR#: [id number] Acct: [id number] Name: JOELLEN GANT ANN Rep #: [id number] : 1965 Provider: Kemar Byrnes DO Age/Sex: 59/F [facility] Status: Signed Intake Vital Signs 01/04/24 09:54 03/02/24 11:12 Height 5 ft 5 in 5 ft 5 in Weight: 226 lb 6 oz BMI 37.6 Intake Visit Reasons: Follow Up Chief Complaint: Thyroid Allergies Iodinated Contrast Media (CT) Allergy (Unknown, Verified 11/04/23 11:06) rash, arm swelling Medications ???Medication ???Instructions ???Recorded ???Confirmed ???Type hydrocortisone 2.5 % topical cream 1 applic topical BID skin 12/13/18 03/02/24 History albuterol sulfate 90 mcg/actuation 2 puff inhalation Q4H PRN Sob /Or 02/13/19 03/02/24 Rx aerosol inhaler (ProAir HFA) Wheezing #18 grams fluticasone propionate 50 2 spray intranasal DAILY nasal 09/10/19 03/02/24 Rx mcg/actuation nasal dryness #9.9 grams spray,suspension (Allergy Relief (fluticasone)) ketotifen fumarate 0.025 % (0.035 1 drp ophthalmic (eye) BID PRN 02/25/23 03/02/24 History %) eye drops (Eye Itch Relief) allergy symptoms olopatadine 0.1 % eye drops 1 drp ophthalmic (eye) BID PRN 02/25/23 03/02/24 History itching diclofenac sodium 75 mg 75 mg PO BID 03/29/23 03/02/24 History tablet,delayed release fluticasone propionate 220 2 puff inhalation BID 03/29/23 03/02/24 History mcg/actuation HFA aerosol inhaler tramadol 50 mg tablet 50 mg PO Q6H PRN pain 03/29/23 03/02/24 History aspirin 81 mg tablet,delayed 81 mg PO DAILY@0800 #90 tabs 08/25/23 03/02/24 Rx release atorvastatin 20 mg tablet 20 mg PO DAILY #90 tabs 08/25/23 03/02/24 Rx carvedilol 3.125 mg tablet 3.125 mg PO BID heart #180 tabs 08/25/23 03/02/24 Rx nitroglycerin 0.4 mg sublingual 0.4 mg sublingual Q5M PRN 08/25/23 03/02/24 Rx tablet Cardiac/Chest Pain #25 tabs potassium chloride 10 mEq 10 meq PO DAILY #90 caps 08/25/23 03/02/24 Rx capsule,extended release spironolactone 25 mg tablet 25 mg PO DAILY #90 tabs 08/25/23 03/02/24 Rx torsemide 20 mg tablet 20 mg PO BID #180 tabs 08/25/23 03/02/24 Rx cwtifw-kgsweqzl-rrpkilh 3 cap PO QAC #300 caps 10/07/23 03/02/24 Rx 36,000-114,000-180,000 unit capsule,delay rel (Creon) cholecalciferol (vitamin D3) 1,250 1,250 mcg PO QWEEK 11/04/23 03/02/24 History mcg (50,000 unit) capsule omeprazole 40 mg capsule,delayed 40 mg PO QAM #90 caps 12/19/23 03/02/24 Rx release vwmgyxzj-site-nfl-iron 18 mg-folic 1 tab PO DAILY 01/03/24 03/02/24 History 240 mcg-vit K 120 mcg-herbal tablet ([employer]) levothyroxine 100 mcg tablet 100 mcg PO DAILY #90 tabs 02/21/24 03/02/24 Rx cholestyramine (with sugar) 4 gram 4 g PO QHS #368.76 grams 02/23/24 03/02/24 Rx oral powder colestipol 1 gram tablet 4 g (4 x 1 gram) PO DAILY diarrhea 02/23/24 03/02/24 Rx #120 tabs dicyclomine 20 mg tablet 20 mg PO TID PRN for abdominal 02/23/24 03/02/24 Rx pain #90 TABLETS hyoscyamine sulfate 0.125 mg tablet 0.125 mg PO BID-QID PRN for 02/23/24 03/02/24 Rx indigestion #120 TABLETS pantoprazole 40 mg tablet,delayed 40 mg PO BID #180 tabs 02/23/24 03/02/24 Rx release (Protonix) sucralfate 1 gram tablet (Carafate) 1 g PO BID #60 tabs 02/23/24 03/02/24 Rx phentermine 30 mg capsule 30 mg PO QDAY #30 caps 03/02/24 03/02/24 Rx PFSH Medical History Hypothyroidism (acquired) Bloating Diarrhea Hiatal hernia Reflux gastritis History of vaginal delivery Loose, teeth Wears glasses Hearing loss, left Bruises easily History of ectopic Post-menopausal Anxiety Ulcer Former smoker History of echocardiogram History of stress test Atrial fibrillation Cholelithiasis with chronic cholecystitis Generalized abdominal pain Pain due to vascular prosthetic devices, implants and grafts, sequela RUQ abdominal pain Mid back pain Bradycardia Palpitations Hair loss Fatigue Hypersomnia 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 apnea Edema Low back pain IBS (irritable bowel syndrome) GERD (gastroesophageal reflux disease) Asthma Bilateral carpal tunnel syndrome History of syncope ( 1999) Chest pain Surgical History History of cholecystectomy ( 07/22/20) Hx of esophagogastroduodenoscopy Hx of colonoscopy History of tooth extraction History of cardiac catheterization History of right and left heart catheterization (01/23/19) Family History Mother Atrial fibrillation CVA (cerebral vascular accident) Diabetes Father Myocardial infarction CAD (coronary artery disease) Sister Pacemaker (more content not included)... Normal [facility] Hepatic function 2000 panelo n 03-02-2024 Albumin [Mass/Vol] 4.3 g/dL 3.9 - 4.9 g/dL [facility] ALP [Catalytic activity/Vol] 160 U/L High 34 - 123 U/L [facility] ALT [Catalytic activity/Vol] 25 U/L 7 - 38 U/L [facility] AST [Catalytic activity/Vol] 24 U/L 13 - 35 U/L [facility] Bilirubin [Mass/Vol] 0.5 mg/dL 0.2 - 1 .3 mg/dL [facility] Bilirubin.conjugated [Mass/Vol] mg/dL NINF - 0.2 mg/dL [facility] Interpretation and review of laboratory results Abnormal [facility] Protein [Mass/Vol] 7.5 g/dL 6.3 - 8.0 g/dL [facility] CNOVon 03-01-2024 CNOV Office Visit (PODIWS ) JOELLEN GANT ([id number]) 1965 F [facility] Date Time Provider Department 03/01/24 2:45 PM GERI FABIAN PODIWS During your visit today, we recorded the following information about you: Carolyn Stacy LPN 03/02/2024 4:12 PM Signed AMB ROOMING INTAKE FLOWSHEET DATA Patient presents with: Left Foot - New, Diabetic Foot Care, nail defformity Right Foot - New, Diabetic Foot Care, nail deformity ROHIT Aguilar Matthew 03/02/2024 4:12 PM Signed Initial Office Visit Subjective: This 59 year old female presents to clinic for diabetic foot check. Patient has the following complaints: dystrophic toenails. Patient states that she initially started experiencing thick toenails to b/l hallux and now has thickening of b/l hallux and right 2nd toenail. She states the nails cut into her other toes. She is here to discuss options. Patient admits to being diabetic for multiple years now. Patient -B/T/N in feet at this time. Patient -pain in legs when walking. No other pedal complaints at this time. No change in medications or medical history since last visit. PAIN EVALUATION No data found in the last 1 encounters. Hemoglobin A1C (%) Date Value 07/13/2023 5.3 11/17/2022 5.0 03/20/2021 5.2 04/05/2017 5.1 07/09/2015 5.0 PCP: Sam Null MD PAST MEDICAL HISTORY Diagnosis Date Asthma 06/13/2008 Atypical chest pain 01/2019 heart cath normal Bile-induced gastritis 04/08/2021 Calcium deposits in tendon and bursa right knee Carpal tunnel syndrome, bilateral 10/16/2015 Chronic cholecystitis 07/22/2020 Chronic midline low back pain without sciatica 07/31/2015 CKD stage 3a, GFR 45-59 ml/min ([facility]) Colon polyp 07/17/2020 Dermatophytosis of the body Edema 06/13/2008 GERD (gastroesophageal reflux disease) 07/29/2010 Hiatal hernia 07/17/2020 medium sized seen on EGD Infectious mononucleosis Irregular menstrual cycle Irritable bowel syndrome with diarrhea 08/04/2015 Morbid obesity with BMI of 45.0-49.9, adult ([facility]) Obesity, Class III, BMI 40-49.9 (morbid obesity) ([facility]) 07/27/2017 Stage 3a chronic kidney disease ([facility]) 04/08/2021 Tobacco use disorder Unspecified hearing loss left ear - wears hearing aid Unspecified hypothyroidism Current Outpatient Medications Medication Sig cholestyramine-sucrose (QUESTRAN) 4 gram powder TAKE 4 GRAMS BY MOUTH AT BEDTIME. ADMINISTER WITH A MEAL. AVOID O... (REFER TO PRESCRIPTION NOTES). sucralfate (CARAFATE) 1 gram tablet Take one tablet in the morning and one tablet in the afternoon torsemide (DEMADEX) 20 mg tablet Take 1 tablet by mouth once daily. cholecalciferol (VITAMIN D3) 50 mcg (2,000 unit) tablet Take 1 tablet by mouth once daily. CREON 36,000-114,000- 180,000 unit delayed release capsule 1 capsule with meals and at bedtime. 2-3 capsules with meals and 1-2 with snacks hyoscyamine (LEVSIN) 0.125 mg tablet Take 0.125 mg by mouth every 6 hours as needed. 1-2 tablets four times daily as needed pantoprazole DR (PROTONIX) 40 mg tablet Take 1 tablet by mouth two times a day. Take on empty stomach, 1/2 hr before meal. omeprazole (PRILOSEC) 40 mg capsule Take 1 capsule by mouth once daily. diclofenac, EC, (VOLTAREN) 75 mg EC tablet take 1 tablet by mouth twice a day levothyroxine (SYNTHROID) 100 mcg tablet Take 1 tablet by mouth once daily. Per [facility]. colestipol (COLESTID) 1 gram tablet Take [...] 1 tablet by mouth every afternoon. Per [facility] olopatadine (PATANOL) 0.1 % ophthalmic [...] mask of choice, HUMIDITY. LIFETIME SUPPLIES. DME: [facility] albuterol HFA (PROAIR HFA) 90 mcg/actuation inhaler Inhale 2 Puffs as instructed every 4 hours as needed. No current facility-adm (more content not included)... Normal [facility] Hepatic function 2000 panelo n 03-01-2024 Albumin [Mass/Vol] 4.3 g/dL Normal 3.9-4.9 [facility] Comment on above: Order Comment: Speci men Type: BLOOD SPECIMENOrdering Facility: [facility] Address: [address] [place] [address] Performed By: #### 2 5-3 ####[facility] LABIA [id number] [place] [address] [place] ALP [Catalytic activity/Vol] 160 U/L High 34-123 [facility] Comment on above: Order Comment: Speci men Type: BLOOD SPECIMENOrdering Facility: [facility] Address: [address] [place] [address] Performed By: #### 2 4324-3 ####[facility] LABCLIA [id number] [place] [address] [place] ALT [Catalytic activity/Vol] 25 U/L Normal 7-38 [facility] Comment on above: Order Comment: Speci men Type: BLOOD SPECIMENOrdering Facility: [facility] Address: [address] [place] [address] Performed By: #### 2 5-3 ####[facility] LABIA [id number] [place] [address] [place] AST [Catalytic activity/Vol] 24 U/L Normal 13-35 [facility] Comment on above: Order Comment: Speci men Type: BLOOD SPECIMENOrdering Facility: [facility] Address: [address] [place] [address] Performed By: #### 2 5-3 ####[facility] LABCLIA [id number] [place] [address] [place] Bilirubin [Mass/Vol] 0.5 mg/dL Normal 0.2-1.3 [facility] Comment on above: Order Comment: Speci men Type: BLOOD SPECIMENOrdering Facility: [facility] Address: [address] [place] [address] Performed By: #### 2 4325-3 ####[facility] LABCLIA [id number] [place] [address] [place] Bilirubin.conjugated [Mass/Vol] mg/dL Normal <0.2 [facility] Comment on above: Order Comment: Speci men Type: BLOOD SPECIMENOrdering Facility: [facility] Address: [address] [place] [address] Performed By: #### 2 4325-3 ####[facility] LABIA [id number] [place] [address] [place] Protein [Mass/Vol] 7.5 g/dL Normal 6.3-8.0 [facility] Comment on above: Order Comment: Speci men Type: BLOOD SPECIMENOrdering Facility: [facility] Address: [address] [place] [address] Performed By: #### 2 4325-3 ####[facility] LABIA [id number] [place] [address] [place] Microorganism Spec Culton Microorganism identified Cx Nom (Unsp spec) ORGANISM ID: 1 Few Aspergillus species Identified by microscopic morphology FUNGAL SMEAR: Rare Fungal elements present Rare Septate hyphae Abnormal [facility] Comment on above: Performed By: #### 1 1475-1 ####[facility] LABIA [id number] [place] [address] [place] CNPKalee 02-02-2024 CNPN Telephone (AGGENS4) JOELLEN GANT ([id number]) 1965 F CHT Date Time Provider Department 02/02/24 MARII HERZOG During your visit today, we recorded the following information about you: Cassie Suh RN 02/02/2024 9:25 AM Signed Gastroenterology clearance letter sent/faxed to Dr. Kemar Byrnes, DO. Cassie Suh RN, BSN Bariatric Front Office Director Cassie Suh RN 02/02/2024 9:25 AM Signed 2nd Nephrology clearance letter sent/faxed to Britni Lockwood APRN.LAST PATTERN GRADER. Cassie Suh RN, BSN Bariatric Front Office Director Arianne Lee LPN 02/08/2024 1:05 PM Signed Gastroenterology clearance letter scanned in Gunner Sutton APRN.ERICK 02/08/2024 1:17 PM Signed GI - moderate risk. Gunner Sutton APRN.ERICK Allergies As of Date: 02/02/2024 Noted Allergy Reaction IV CONTRAST (IODINE) 04/14/2023 7 - Swelling SEASONAL ALLERGIES 04/08/2021 5 - Intolerance Date Reviewed: 02/01/2024 Reviewed by: Gunner Sutton APRN.LAST PATTERN GRADER - Fully Assessed Reason for Visit: Medical Clearance [1983] Prescriptions as of 02/08/2024 - torsemide (DEMADEX) 20 mg tablet Take 1 tablet by mouth once daily. - cholecalciferol (VITAMIN D3) 50 mcg (2,000 [...] tablet by mouth twice a day - levothyroxine (SYNTHROID) 100 mcg tablet Take 1 tablet by mouth once daily. Per [facility]. - colestipol (COLESTID) 1 gram tablet [...] 1 tablet by mouth every afternoon. Per [facility] - olopatadine (PATANOL) 0.1 % [...] mask of choice, HUMIDITY. LIFETIME SUPPLIES. DME: [facility] Problem List As Of Date 02/02/2024 Noted Resolved Complete spontaneous without mention o*01/01/2005 [...] Eczema [L30.9] 07/15/2023 No appetite [R63.0] 07/15/2023 Letter Text Letter Text Encounter Status:Closed by CASSIE SUH on 02/02/24 [facility] CNCOon 01-23-2024 CNCO Letter Text [facility] CNPKalee 01-23-2024 CNPN Telephone (AGGENS4) JOELLEN GANT ([id number]) 1965 F CHT Date Time Provider Department 01/23/24 LISBET STEEL4 During your visit today, we recorded the following information about you: Cindy Schrader 01/23/2024 2:39 PM Signed Pt no showed Dr. Steel on 01/23/24. This is the first no show. Sent no show letter Allergies As of Date: 01/23/2024 Noted Allergy Reaction IV CONTRAST (IODINE) 04/14/2023 7 - Swelling SEASONAL ALLERGIES 04/08/2021 5 - Intolerance Date Reviewed: 01/20/2024 Reviewed by: Valentina Charlton OCCA - Fully Assessed Reason for Visit: Appointment [186] Cmt: NO SHOW Prescriptions as of 01/23/2024 - torsemide (DEMADEX) 20 mg tablet Take 1 tablet by mouth once daily. - cholecalciferol (VITAMIN D3) 50 mcg (2,000 [...] tablet by mouth twice a day - levothyroxine (SYNTHROID) 100 mcg tablet Take 1 tablet by mouth once daily. Per [facility]. - colestipol (COLESTID) 1 gram tablet [...] 1 tablet by mouth every afternoon. Per [facility] - olopatadine (PATANOL) 0.1 % [...] mask of choice, HUMIDITY. LIFETIME SUPPLIES. DME: [facility] Problem List As Of Date 01/23/2024 Noted Resolved Complete spontaneous without mention o*01/01/2005 [...] No appetite [R63.0] 07/15/2023 Encounter Status:Closed by CINDY SCHRADER on 01/23/24 Normal [facility] Basic metabolic 2000 panelon 01-21-2024 Anion gap [Moles/Vol] 13 mmol/L 8 - 15 mmol/L [facility] Calcium [Mass/Vol] 9.7 mg/dL 8.5 - 10. 2 mg/dL [facility] Chloride [Moles/Vol] 100 mmol/L 98 - 10 7 mmol/L [facility] CO2 [Moles/Vol] 28 mmol/L 22 - 30 mmol/L [facility] Creatinine [Mass/Vol] 1.33 mg/dL High 0.58 - 0.96 mg/dL [facility] GFR/1.73 sq M.predicted among non-blacks MDRD (S/P/Bld) [Vol rate/Area] 46 mL/min/{1.73_m2} Low - PINF [facility] Comment on above: Estimated Glomerular Filtration Rate (eGFR) is calculated using the 2020 CKD-EPI creatinine equation. This equation utilizes serum creatinine, sex, and age as parameters. The creatinine assay has traceable calibration to isotope dilution-mass spectrometry. Refer to KDIGO guidelines for clinical interpretation. In patients with unstable renal function, e.g. those with acute kidney injury, the eGFR may not accurately reflect actual GFR. Glucose [Mass/Vol] 74 mg/dL 74 - 99 mg/dL [facility] Comment on above: The [place] Diabete s Association (ADA) provides guidance for cutoff values [...] Standards of Medical Care in Diabetes 2016, [place] Diabetes Association. Diabetes Care. 2016.39(Suppl 1). Interpretation and review of laboratory results Abnormal [facility] Potassium [Moles/Vol] 3.8 mmol/L 3.7 - 5.1 mmol/L [facility] Sodium [Moles/Vol] 141 mmol/L 136 - 144 mmol/L [facility] Urea nitrogen [Mass/Vol] 23 mg/dL High 7 - 21 mg/dL [facility] Basic metabolic 2000 panelon 01-20-2024 Anion gap [Moles/Vol] 13 mmol/L Normal 8-15 [facility] Comment on above: Order Comment: Speci men Type: BLOOD SPECIMENOrdering Facility: [facility] Address: [address] [place] [address] Performed By: #### 2 4321-2 ####[facility] LABCLIA [id number] [place] [address] [place] Calcium [Mass/Vol] 9.7 mg/dL Normal 8.5-10.2 [facility] Comment on above: Order Comment: Speci men Type: BLOOD SPECIMENOrdering Facility: [facility] Address: [address] [place] [address] Performed By: #### 2 4321-2 ####[facility] LABCLIA [id number] [place] [address] [place] Chloride [Moles/Vol] 100 mmol/L Normal 98-107 [facility] Comment on above: Order Comment: Speci men Type: BLOOD SPECIMENOrdering Facility: [facility] Address: [address] [place] [address] Performed By: #### 2 4321-2 ####[facility] LABCLIA [id number] [place] [address] [place] CO2 [Moles/Vol] 28 mmol/L Normal 22-30 [facility] Comment on above: Order Comment: Speci men Type: BLOOD SPECIMENOrdering Facility: [facility] Address: [address] [place] [address] Performed By: #### 2 4321-2 ####[facility] LABIA [id number] [place] [address] [place] Creatinine [Mass/Vol] 1.33 mg/dL High 0.58-0.96 [facility] Comment on above: Order Comment: Speci men Type: BLOOD SPECIMENOrdering Facility: [facility] Address: [address] [place] [address] Performed By: #### 2 4321-2 ####[facility] LABIA [id number] [address] OF [place] Creatinine and Glomerular filtration rate.predicted panel (S/P/Bld) 46 mL/min/1.73m??? Low >=60 [facility] Comment on above: Order Comment: Speci men Type: BLOOD SPECIMENOrdering Facility: [facility] Address: [address] [place] [address] Result Comment: Sara mated Glomerular Filtration Rate [...] reflect actual GFR. Performed By: #### 2 4321-2 ####[facility] LABCLIA [id number] [place] [address] [place] Glucose [Mass/Vol] 74 mg/dL Normal 74-99 [facility] Comment on above: Order Comment: Speci men Type: BLOOD SPECIMENOrdering Facility: [facility] Address: [address] [place] [address] Result Comment: The [place] Diabetes Association (ADA) provides guidance for cutoff [...] Standards of Medical Care in Diabetes 2016, [place] Diabetes Association. Diabetes Care. 2016.39(Suppl 1). Performed By: #### 2 4321-2 ####[facility] LABCLIA [id number] [place] [address] [place] Potassium [Moles/Vol] 3.8 mmol/L Normal 3.7-5.1 [facility] Comment on above: Order Comment: Kaleighi men Type: BLOOD SPECIMENOrdering Facility: [facility] Address: [address] [place] [address] Performed By: #### 2 4321-2 ####[facility] LABCLIA [id number] [place] [address] [place] Sodium [Moles/Vol] 141 mmol/L Normal 136-144 [facility] Comment on above: Order Comment: Speci men Type: BLOOD SPECIMENOrdering Facility: [facility] Address: [address] [place] [address] Performed By: #### 2 4321-2 ####[facility] LABCLIA [id number] [place] [address] [place] Urea nitrogen [Mass/Vol] 23 mg/dL High 7-21 [facility] Comment on above: Order Comment: Speci men Type: BLOOD SPECIMENOrdering Facility: [facility] Address: [address] [place] [address] Performed By: #### 2 4321-2 ####[facility] LABCLIA [id number] [id number] STATES OF [facility] CNOVon 01-20-2024 [facility] JOELLEN GANT ([id number]) 1965 F CHT Date Time Provider Department 01/20/24 2:00 PM BRITNI [facility]OCKWO[facility] During your visit today, we recorded the following information about you: Britni Lockwood, RESEARCH INSTRUMENTATION TECHNICIAN.LAST PATTERN GRADER 01/23/2024 8:13 AM Signed [facility] SERVICE DATE: 01/20/2024 SERVICE TIME: 2:51 PM CHIEF COMPLAINT: Follow up CKD 3A/B HPI: Ms. 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 Feels well today but still struggling with arthritis. BPs at home are not checked. Weights: Has lost 30 lbs over the past year. Medication adherence is good Using NSAIDS Aleve "rarely" although be discussed in-depth. Eating abrams and sausage. Not following low Na diet but states she does not add salt. Drinking 80 oz of water per day. [facility] with me on 11/18/23. CKD Stage 3B, non proteinuric, related to right renal atrophy, with last SCR 1.1. Risk progression includes continued NSAID use, PPI use and BMI >45. PLAN: -STOP Voltaren otherwise use the lowest [...] 150 minutes every week. RTC 6 months PAST MEDICAL HISTORY: ACTIVE PROBLEM LIST Asthma Edema Veto On Cpap Gerd (Gastroesophageal Reflux Disease) Irritable Bowel Syndrome With Diarrhea Obesity, Class Iii, Bmi 40-49.9 (Morbid Obesity) (Hcc) Stage 3a Chronic Kidney Disease (Hcc) Atypical Chest Pain Bile-Induced Gastritis Colon Polyp Subclinical Hypothyroidism Eczema No Appetite MEDICATIONS: cholecalciferol (VITAMIN D3) 50 mcg (2,000 unit) tablet Take 1 tablet by mouth once daily. CREON 36,000-114,000- 180,000 unit delayed release capsule [...] Take 1 capsule by mouth once daily. diclofenac, EC, (VOLTAREN) 75 mg EC tablet take 1 tablet by mouth twice a day torsemide (DEMADEX) 20 mg tablet take 1 tablet by mouth twice a day (STOP FUROSEMIDE) levothyroxine (SYNTHROID) 100 mcg tablet Take 1 tablet by mouth once daily. Per [facility]. colestipol (COLESTID) 1 gram tablet Take [...] 1 tablet by mouth every afternoon. Per [facility] olopatadine (PATANOL) 0.1 % ophthalmic [...] by mouth once daily. potassium chloride SR (MICR (more content not included)... Normal [facility] PTH-Intact [facility] 10-2 Parathyrin.intact [Mass/Vol] 131 pg/mL High 15-65 [facility] Comment on above: Order Comment: Speci men Type: BLOOD SPECIMEN Ordering Facility: [facility] Address: [address] [place] [address] Performed By: #### 5 763-8 #### [facility] CLIA [id number] OF [facility] Esau 12-26-2023 CNPN [facility] STALINJOELLEN ([id number]) 1965 F CHT Date Time Provider Department 12/26/23 BRITNI [facility] During your visit today, we recorded the following information about you: Ebony Monroy 12/26/2023 11:02 AM Signed Name of Caller: joellen Relationship to patient: patient Last visit in this department: 11/18/2023 Reason for Call: Other : wants to know what vitamin D supp she should be taking Callback number: [phone] Pia Guy, RN 12/29/2023 1:35 PM Signed Called to advise 2000 units Vitamin D daily. Patient requesting script for financial reasons. Polly Martins MA 12/30/2023 8:50 AM Signed Spoke to patient- Patient wants a prescription states that [facility] will pay for it. Britni Lockwood APRN.LAST PATTERN GRADER 12/30/2023 12:31 PM Signed Sent to [facility]. Britni Lockwood APRN.LAST PATTERN GRADER Allergies As of Date: 12/26/2023 Noted Allergy Reaction IV CONTRAST (IODINE) 04/14/2023 7 - Swelling SEASONAL ALLERGIES 04/08/2021 5 - Intolerance Date Reviewed: 12/12/2023 Reviewed by: Gunner Sutton APRN.LAST PATTERN GRADER - Fully Assessed Order(s):cholecalciferol (VITAMIN D3) 50 mcg (2,000 unit) tabletTake [...] 1 tablet by mouth once daily. Per [facility]. - colestipol (COLESTID) 1 gram tablet [...] mask of choice, HUMIDITY. LIFETIME SUPPLIES. DME: [facility] Problem List As Of Date 12/26/2023 [...] mouth on (more content not included)... Normal [facility] CNCOon 12-13-2023 CNCO Letter Text Normal [facility] CNPNon 12-13-2023 CNPN Telephone (AGGENS4) STALINJOELLEN ([id number]) 1965 F CHT Date Time Provider Department 12/13/23 MARII HERZOG AGGENS4 During your visit today, we recorded the following information about you: Cassie Suh RN 12/13/2023 10:11 AM Signed Cardiology Clearance letter sent/faxed to Porfirio Jeff APRN.ERICK. Cassie Suh RN, BSN Bariatric Front Office Director Cassie Suh RN 12/13/2023 10:11 AM Signed Nephrology Clearance Letter sent/faxed to Britni Lockwood APRN.ERICK. Cassie Suh RN, BSN Bariatric Front Office Director Cassie Suh RN 12/13/2023 10:15 AM Signed Pulmonary clearance letter sent/faxed to CNP. Cassie Benson RN, BSN Bariatric Front Office Director Arianne Lee LPN 12/16/2023 2:05 PM Signed Cardiology Clearance letter scanned into chart Gunner Sutton APRN.ERICK 12/16/2023 2:12 PM Signed Pulm - moderate risk. Cardiac - low risk. Gunner Sutton APRN.CNP Allergies As of Date: 12/13/2023 Noted Allergy Reaction IV CONTRAST (IODINE) 04/14/2023 7 - Swelling SEASONAL ALLERGIES 04/08/2021 5 - Intolerance Date Reviewed: 12/12/2023 Reviewed by: Gunner Sutton APRN.ERICK - Fully Assessed Reason for Visit: Medical Clearance [1982] Prescriptions as of 12/16/2023 - CREON 36,000-114,000- [...] Transition to 4,000-5,000 units of Vitamin D [id number] after completing 12 weeks of high-dose therapy. - diclofenac, EC, (VOLTAREN) 75 mg EC tablet take 1 tablet by mouth twice a day - torsemide (DEMADEX) 20 mg tablet take 1 tablet by mouth twice a day (STOP FUROSEMIDE) - levothyroxine (SYNTHROID) 100 mcg tablet Take 1 tablet by mouth once daily. Per [facility]. - colestipol (COLESTID) 1 gram tablet [...] mask of choice, HUMIDITY. LIFETIME SUPPLIES. DME: [facility] Problem List As Of Date 12/13/2023 [...] [R63.0] 05 (more content not included)... Normal [facility] UA DIP, URINE (POC)on 2023 BILIRUBIN UA (POCT) Negative Negative [facility] CLARITY UA (POCT) Clear [facility] COLOR UA (POCT) Yellow [facility] GLUCOSE UA (POCT) Negative Negative mg/dL [facility] Hemoglobin Ql (U) Negative Negative [facility] Interpretation and review of laboratory results Abnormal [facility] KETONE UA (POCT) Negative Negative mg/dL [facility] LEUKOCYTES UA (POCT) Trace [facility]normal [facility]) Negative Negative [facility] PH UA (POCT) 5.5 4.5 - 8.0 [facility] Protein Ql (U) Negative Negative mg/dL [facility] SPECIFIC GRAVITY UA (POCT) 1.015 1.005 - 1.030 [facility] UROBILINOGEN UA (POCT) 0.2 Vamshi l E.U./dL [facility] Location:[facility], [facility] , [place], [address] [facility] POINT OF CARE [facility] EGD Study observation Shira anaya 07-21-2023 [facility] Gastrointestinal Endoscopy Patient Name: Joellen Gant Procedure Date: 07/21/2023 1:19 PM Date of : 1965 Admit Type: Outpatient Room: [place] [address] Gender: Female Note Status: Finalized Attending MD: Marii Herzog MD, [id number] Procedure: Upper GI endoscopy Indications: Heartburn Providers: Marii Herzog MD Patient Profile: Refer to note in patient chart for documentation of history and physical. Patient has symptoms of chronic heartburn. Body Mass Index: 45. Referring Physician: Marii Herzog MD (Referring MD) Medicines: Monitored Anesthesia [...] for aspirin. Procedure Code(s): --- Professional --- 50286, Esophagogastroduodenoscopy, flexible, transoral; with biopsy, single or multiple (more content not included)... PROVATION [facility] Radiology Study observation (narrative) Pk meier [facility] Absolute lymphocyte countOrd ered By: Porfirio Jeff on 07-08-2023 Lymphocytes Auto (Unsp spec) [#/Vol] 2.22 10*3/uL 0.83-4.51 [facility] Automated lymphocyte count a s percentage of total leukocytesOrdered By: Porfirio Jeff on 07-08-2023 Lymphocytes/100 WBC Auto (Unsp spec) 29.8 % 19-41 [facility] Basophil percentageOrdered B y: Porfirio Jeff on 07-08-2023 Basophils/100 WBC (Bld) 0.7 % 0-1 [facility] Bilirubin [Mass/Vol] 0.80 mg/dL 0.20-1.00 [facility] Comment on above: For patients on eltr ombopag therapy, use of Dimension [place] TBIL is not recommended. Chloride [Moles/Vol] 103 mmol/L 98-107 [facility] Eosinophils/100 WBC (Bld) 0.9 % 0-5 [facility] Glucose [Mass/Vol] 94 mg/dL 74-106 [facility] Hemoglobin (Bld) [Mass/Vol] 14.1 g/dL 12.0-15.0 [facility] Monocytes/100 WBC (Bld) 7.0 % 0-10 [facility] Neutrophils (Bld) [#/Vol] 4.6 10*3/uL 2.0-7.7 [facility] Neutrophils/100 WBC (Bld) 61.3 % 47-70 [facility] Potassium [Moles/Vol] 3.5 mmol/L 3.5-5.1 [facility] Protein [Mass/Vol] 7.8 g/dL 6.4-8.2 [facility] Sodium [Moles/Vol] 137 mmol/L 136-145 [facility] WBC (Bld) [#/Vol] 7.5 10*3/uL 4.4-11.0 [facility] Determination of erythrocyte mean corpuscular volume (MCV)Ordered By: Porfirio Jeff on 07-08-2023 MCV (RBC) [Entitic vol] 85.9 fL 81-99 [facility] Erythrocyte distribution wid th ratioOrdered By: Porfirio Jeff on 07-08-2023 Erythrocyte distribution width (RBC) [Ratio] 13.7 % 11.6-14.6 [facility] Erythrocyte distribution wid th standard deviationOrdered By: Porfirio Jeff on 07-08-2023 Erythrocyte distribution width (RBC) [Entitic vol] 42.9 fL 35.1-43.9 [facility] Hematocrit Auto (Bld) [Volum e fraction]Ordered By: Porfirio Jeff on 07-08-2023 Hematocrit (Bld) [Volume fraction] 43.3 % 37-47 [facility] Immature granulocytes/100 WB C Auto (Bld)Ordered By: Porfirio Jeff on 07-08-2023 Immature granulocytes/100 WBC (Bld) 0.300 % 0.0-0.9 [facility] Comment on above: IG% - Immature Granu locytes (promyelocytes, myelocytes and metamyelocytes) > 1% indicates that a LEFT SHIFT is Present. Laboratory - Chemistry and C hemistry - challengeOrdered By: Porfirio Jeff on 07-08-2023 Albumin/Globulin [Mass ratio] 0.9 {ratio} 0.9-2.4 [facility] ALP [Catalytic activity/Vol] 142 U/L 45-117 [facility] ALT [Catalytic activity/Vol] 20 U/L 13-56 [facility] CO2 [Moles/Vol] 28.0 mmol/L 21.0-32.0 [facility] Globulin (S) [Mass/Vol] 4.1 g/dL 2.2-4.2 [facility] Magnesium [Mass/Vol] 1.8 mg/dL 1.6-2.6 [facility] Natriuretic peptide B (Bld) [Mass/Vol] 26.8 pg/mL 0-100 [facility] Urea nitrogen/Creatinine [Mass ratio] 13.1 mg/mg 10-20 [facility] Laboratory - Hematology and Cell countsOrdered By: Porfirio Jeff on 07-08-2023 MCH (RBC) [Entitic mass] 28.0 pg 27.0-32.0 [facility] MCHC (RBC) [Mass/Vol] 32.6 g/dL 32-36 [facility] Nucleated RBC/100 WBC (Bld) [Ratio] 0 % 0-5 [facility] Platelet mean volume (Bld) [Entitic vol] 11.4 fL 6.2-12.0 [facility] Platelets (Bld) [#/Vol] 201 10*3/uL 150-450 [facility] No Panel InformationOrdered By: Porfirio Jeff on 07-08-2023 Estimated GFR (MDRD) Amer 51 mL/min >60 [facility] Comment on above: GFR Calc Estimated GFR (MDRD) Non-Af Amer 42 mL/min >60 [facility] Comment on above: Non- GFR Calc RBC Auto (Bld) [#/Vol]Ordere d By: Porfirio Jeff on 07-08-2023 RBC (Bld) [#/Vol] 5.04 10*6/uL 4.2-5.4 [facility] Serum or plasma calcium allison urement (mass/volume)Ordered By: Porfirio Jeff on 07-08-2023 Calcium [Mass/Vol] 9.3 mg/dL 8.5-10.1 [facility] Serum or plasma creatinine m easurement (mass/volume)Ordered By: Porfirio Jeff on 07-08-2023 Creatinine [Mass/Vol] 1.37 mg/dL 0.55-1.02 [facility] Comment on above: The validity of the calculated GFR & GFRAA in patients over 70 years has not been determined. Clinical correlation is essential. Serum or plasma urea nitroge n measurement (mass/volume)Ordered By: Porfirio Jeff on 07-08-2023 Urea nitrogen [Mass/Vol] 18 mg/dL 7-18 [facility] Thin prep Papanicolaou smear with manual screeningOrdered By: Porfirio Jeff on 07-08-2023 Thin prep Papanicolaou smear with manual screening 3.7 g/dL 3.2-5.0 [facility] Thin prep Papanicolaou smear with manual screening 14 U/L 15-37 [facility] Thin prep Papanicolaou smear with manual screening 6 5-15 [facility] No Panel InformationOrdered By: Kemar Byrnes on 07-05-2023 Giardia Antigen (POP) [facility] Ova and parasitesOrdered By: Kemar Byrnes on 07-05-2023 Ova and parasites identified LM Nom (Unsp spec) [facility] Stool pancreatic elastase me asurement (mass/mass)Ordered By: Kemar Byrnes on 07-05-2023 Elastase.pancreatic (Stl) [Mass/Mass] 277 >200 [facility] Comment on above: Result Units: ug Sparkle st./g Severe Pancreatic Insufficiency: <100 Moderate Pancreatic Insufficiency: 100 - 200 Normal: >200Performed at: [facility] Lab[address] [id number] Director: Woody Flowers MD, Phone: [phone] Basophil percentageOrdered B y: Grant Morgan on 06-27-2023 Basophil percentage 2.6 mg/dL 2.5-4.9 [facility] Chloride [Moles/Vol] 104 mmol/L 98-107 [facility] Glucose [Mass/Vol] 94 mg/dL 74-106 [facility] Potassium [Moles/Vol] 3.9 mmol/L 3.5-5.1 [facility] Sodium [Moles/Vol] 137 mmol/L 136-145 [facility] Bilirubin Test strip Ql (U)O rdered By: Grant Morgan on 06-27-2023 Bilirubin Ql (U) Negative Negative [facility] Culture, urineOrdered By: Wei Morgan on 06-27-2023 Bacteria identified Cx Nom (U) Culture exhibits no growth. [facility] Ketones Test strip Ql (U)Ord ered By: Grant Morgan on 06-27-2023 Ketones Ql (U) Negative Negative [facility] Laboratory - Chemistry and C hemistry - challengeOrdered By: Grant Morgan on 06-27-2023 CO2 [Moles/Vol] 27.0 mmol/L 21.0-32.0 [facility] Urea nitrogen/Creatinine [Mass ratio] 11.8 mg/mg 10-20 [facility] Nitrite Test strip Ql (U)Ord ered By: Grant Morgan on 06-27-2023 Nitrite Ql (U) Negative Negative [facility] No Panel InformationOrdered By: Grant Morgan on 06-27-2023 Urine Microalbumin/Creatinine Ratio TNP [facility] Comment on above: Test not performed Estimated GFR (MDRD) Amer 55 mL/min >60 [facility] Comment on above: GFR Calc Estimated GFR (MDRD) Non-Af Amer 46 mL/min >60 [facility] Comment on above: Non- GFR Calc Protein Test strip Ql (U)Ord ered By: Grant Morgan on 06-27-2023 Protein Ql (U) Negative Negative [facility] Serum or plasma calcium allison urement (mass/volume)Ordered By: Grant Morgan on 06-27-2023 Calcium [Mass/Vol] 9.4 mg/dL 8.5-10.1 [facility] Serum or plasma creatinine m easurement (mass/volume)Ordered By: Grant Morgan on 06-27-2023 Creatinine [Mass/Vol] 1.27 mg/dL 0.55-1.02 [facility] Comment on above: The validity of the calculated GFR & GFRAA in patients over 70 years has not been determined. Clinical correlation is essential. Serum or plasma thyroid stim ulating hormone (TSH) measurement (units/volume)Ordered By: Grant Morgan on 06-27-2023 TSH Qn 6.44 uIU/mL 0.358-3.74 [facility] Serum or plasma urea nitroge n measurement (mass/volume)Ordered By: Grant Morgan on 06-27-2023 Urea nitrogen [Mass/Vol] 15 mg/dL 7-18 [facility] Thin prep Papanicolaou smear with manual screeningOrdered By: Grant Morgan on 06-27-2023 Protein (U) [Mass/Vol] 7.1 mg/dL 0.0-11.8 [facility] Thin prep Papanicolaou smear with manual screening < 5.0 mg/L NO RANGE EST. [facility] Thin prep Papanicolaou smear with manual screening 3.6 g/dL 3.2-5.0 [facility] Thin prep Papanicolaou smear with manual screening 1.15 ng/dL 0.76-1.46 [facility] Urine blood detectionOrdered By: Grant Morgan on 06-27-2023 RBC Ql (U) Negative Negative [facility] Urine clarityOrdered By: Prem Morgan on 06-27-2023 Clarity (U) Clear Clear [facility] Urine color determinationOrd ered By: Grant Morgan on 06-27-2023 Color (U) Yellow Yellow [facility] Urine creatinine measurement (mass/volume)Ordered By: Grant Morgan on 06-27-2023 Creatinine (U) [Mass/Vol] 23.70 mg/dL NO RANGE EST. [facility] Urine glucose detectionOrder ed By: Grant Morgan on 06-27-2023 Glucose Ql (U) Normal mg/dl Normal [facility] Urine leukocyte esterase det ection by dipstickOrdered By: Grant Morgan on 06-27-2023 Leukocyte esterase Test strip Ql (U) Negative Negative [facility] Urine pHOrdered By: Grant mosqueda on 06-27-2023 pH (U) 8.0 [pH] 5.0 - 8.0 [facility] Urine protein/creatinine mas s ratioOrdered By: Grant Morgan on 06-27-2023 Protein/Creatinine (U) [Mass ratio] 300 mg/g CRE 0-200 [facility] Urine specific gravity measu rementOrdered By: Grant Morgan on 06-27-2023 Specific gravity (U) [Rel density] 1.015 1.002-1.03 0 [facility] Urine urobilinogen measureme ntOrdered By: Grant Morgan on 06-27-2023 Urobilinogen Ql (U) Normal mg/dl Normal [facility] Absolute lymphocyte countOrd ered By: Grant Morgan on 04-28-2023 Lymphocytes Auto (Unsp spec) [#/Vol] 2.11 10*3/uL 0.83-4.51 [facility] Automated lymphocyte count a s percentage of total leukocytesOrdered By: Grant Morgan on 04-28-2023 Lymphocytes/100 WBC Auto (Unsp spec) 22.5 % 19-41 [facility] Basophil percentageOrdered B y: Grant Morgan on 04-28-2023 Basophil percentage 5-10 SEEN /hpf 0-5 [facility] Basophil percentage 3.4 mg/dL 2.5-4.9 [facility] Basophils/100 WBC (Bld) 0.5 % 0-1 [facility] Chloride [Moles/Vol] 104 mmol/L 98-107 [facility] Eosinophils/100 WBC (Bld) 1.1 % 0-5 [facility] Glucose [Mass/Vol] 116 mg/dL 74-106 [facility] Comment on above: Fasting Glucose resu lt from 100 to 125 mg/dL suggests IMPAIRED HOMEOSTASIS per A.D.A. criteria. Hemoglobin (Bld) [Mass/Vol] 13.7 g/dL 12.0-15.0 [facility] Monocytes/100 WBC (Bld) 8.8 % 0-10 [facility] Neutrophils (Bld) [#/Vol] 6.3 10*3/uL 2.0-7.7 [facility] Neutrophils/100 WBC (Bld) 66.9 % 47-70 [facility] Potassium [Moles/Vol] 3.5 mmol/L 3.5-5.1 [facility] Sodium [Moles/Vol] 139 mmol/L 136-145 [facility] WBC (Bld) [#/Vol] 9.4 10*3/uL 4.4-11.0 [facility] Bilirubin Test strip Ql (U)O rdered By: Grant Morgan on 04-28-2023 Bilirubin Ql (U) Negative Negative [facility] Determination of erythrocyte mean corpuscular volume (MCV)Ordered By: Grant Morgan on 04-28-2023 MCV (RBC) [Entitic vol] 86.2 fL 81-99 [facility] Erythrocyte distribution wid th ratioOrdered By: Grant Morgan on 04-28-2023 Erythrocyte distribution width (RBC) [Ratio] 12.9 % 11.6-14.6 [facility] Erythrocyte distribution wid th standard deviationOrdered By: Grant Morgan on 04-28-2023 Erythrocyte distribution width (RBC) [Entitic vol] 40.2 fL 35.1-43.9 [facility] Hematocrit Auto (Bld) [Volum e fraction]Ordered By: Grant Morgan on 04-28-2023 Hematocrit (Bld) [Volume fraction] 42.0 % 37-47 [facility] Immature granulocytes/100 WB C Auto (Bld)Ordered By: Grant Morgan on 04-28-2023 Immature granulocytes/100 WBC (Bld) 0.200 % 0.0-0.9 [facility] Comment on above: IG% - Immature Granu locytes (promyelocytes, myelocytes and metamyelocytes) > 1% indicates that a LEFT SHIFT is Present. Ketones Test strip Ql (U)Ord ered By: Grant Morgan on 04-28-2023 Ketones Ql (U) Negative Negative [facility] Laboratory - Chemistry and C hemistry - challengeOrdered By: Grant Morgan on 04-28-2023 CO2 [Moles/Vol] 29.0 mmol/L 21.0-32.0 [facility] Urea nitrogen/Creatinine [Mass ratio] 18.1 mg/mg 10-20 [facility] Laboratory - Hematology and Cell countsOrdered By: Grant Morgan on 04-28-2023 MCH (RBC) [Entitic mass] 28.1 pg 27.0-32.0 [facility] MCHC (RBC) [Mass/Vol] 32.6 g/dL 32-36 [facility] Nucleated RBC/100 WBC (Bld) [Ratio] 0 % 0-5 [facility] Platelet mean volume (Bld) [Entitic vol] 11.6 fL 6.2-12.0 [facility] Platelets (Bld) [#/Vol] 212 10*3/uL 150-450 [facility] Mucus LM Ql (Urine sed)Order ed By: Grant Morgan on 04-28-2023 Mucus Ql (Urine sed) 0 SEEN /hpf [facility] Nitrite Test strip Ql (U)Ord ered By: Grant Morgan on 04-28-2023 Nitrite Ql (U) Negative Negative [facility] No Panel InformationOrdered By: Grant Morgan on 04-28-2023 Estimated GFR (MDRD) Amer 55 mL/min >60 [facility] Comment on above: GFR Calc Estimated GFR (MDRD) Non-Af Amer 46 mL/min >60 [facility] Comment on above: Non- GFR Calc Urine RBC 0 SEEN /hpf 0-5 [facility] Protein Test strip Ql (U)Ord ered By: Grant Morgan on 04-28-2023 Protein Ql (U) 15 mg/dl Negative [facility] RBC Auto (Bld) [#/Vol]Ordere d By: Grant Morgan on 04-28-2023 RBC (Bld) [#/Vol] 4.87 10*6/uL 4.2-5.4 [facility] Serum or plasma calcium allison urement (mass/volume)Ordered By: Grant Morgan on 04-28-2023 Calcium [Mass/Vol] 10.2 mg/dL 8.5-10.1 [facility] Serum or plasma creatinine m easurement (mass/volume)Ordered By: Grant Morgan on 04-28-2023 Creatinine [Mass/Vol] 1.27 mg/dL 0.55-1.02 [facility] Comment on above: The validity of the calculated GFR & GFRAA in patients over 70 years has not been determined. Clinical correlation is essential. Serum or plasma thyroid stim ulating hormone (TSH) measurement (units/volume)Ordered By: Grant Morgan on 04-28-2023 TSH Qn 0.04 uIU/mL 0.358-3.74 [facility] Serum or plasma thyroperoxid ase antibody assay (units/volume)Ordered By: Grant Morgan on 04-28-2023 TPO Ab Qn 46 [IU]/mL 0-34 [facility] Comment on above: Performed at: [address] [id number] Director: Rob Medel PhD, Phone: [phone] Serum or plasma urea nitroge n measurement (mass/volume)Ordered By: Grant Morgan on 04-28-2023 Urea nitrogen [Mass/Vol] 23 mg/dL 7-18 [facility] Squamous epithelial cells de tection in urine sediment by light microscopyOrdered By: Grant Morgan on 04-28-2023 Epithelial cells.squamous LM Ql (Urine sed) 0 SEEN /hpf 5-10 [facility] Thin prep Papanicolaou smear with manual screeningOrdered By: Grant Morgan on 04-28-2023 Protein (U) [Mass/Vol] 23.6 mg/dL 0.0-11.8 [facility] Thin prep Papanicolaou smear with manual screening 3.6 g/dL 3.2-5.0 [facility] Thin prep Papanicolaou smear with manual screening 2.11 ng/dL 0.76-1.46 [facility] Urine blood detectionOrdered By: Grant Morgan on 04-28-2023 RBC Ql (U) Negative Negative [facility] Urine clarityOrdered By: Prem Morgan on 04-28-2023 Clarity (U) Clear Clear [facility] Urine color determinationOrd ered By: Grant Morgan on 04-28-2023 Color (U) YELLOW Yellow [facility] Urine creatinine measurement (mass/volume)Ordered By: Grant Morgan on 04-28-2023 Creatinine (U) [Mass/Vol] 163.00 mg/dL NO RANGE EST. [facility] Urine glucose detectionOrder ed By: Grant Morgan on 04-28-2023 Glucose Ql (U) Normal mg/dl Normal [facility] Urine leukocyte esterase det ection by dipstickOrdered By: Grant Morgan on 04-28-2023 Leukocyte esterase Test strip Ql (U) 25 /ul Negative [facility] Urine pHOrdered By: Grant mosqueda on 04-28-2023 pH (U) 5.0 [pH] 5.0 - 8.0 [facility] Urine protein/creatinine mas s ratioOrdered By: Grant Morgan on 04-28-2023 Protein/Creatinine (U) [Mass ratio] 145 mg/g CRE 0-200 [facility] Urine sediment bacteria coun t by microscopy (number/high power field)Ordered By: Grant Morgan on 04-28-2023 Bacteria LM.HPF (Urine sed) [#/Area] 0 /[HPF] None Seen [facility] Urine specific gravity measu rementOrdered By: Grant Morgan on 04-28-2023 Specific gravity (U) [Rel density] 1.020 1.002-1.03 0 [facility] Urine urobilinogen measureme ntOrdered By: Grant Morgan on 04-28-2023 Urobilinogen Ql (U) Normal mg/dl Normal [facility] Absolute lymphocyte countOrd ered By: Arianne Navarro on 04-07-2023 Lymphocytes Auto (Unsp spec) [#/Vol] 2.02 10*3/uL 0.83-4.51 [facility] Automated lymphocyte count a s percentage of total leukocytesOrdered By: Arianne Navarro on 04-07-2023 Lymphocytes/100 WBC Auto (Unsp spec) 21.6 % 19-41 [facility] Basophil percentageOrdered B y: Arianne Navarro on 04-07-2023 Basophil percentage 0-5 SEEN /hpf 0-5 [facility] Basophils/100 WBC (Bld) 0.7 % 0-1 [facility] Bilirubin [Mass/Vol] 0.90 mg/dL 0.20-1.00 [facility] Comment on above: For patients on eltr ombopag therapy, use of Dimension [place] TBIL is not recommended. Chloride [Moles/Vol] 101 mmol/L 98-107 [facility] Eosinophils/100 WBC (Bld) 1.1 % 0-5 [facility] Glucose [Mass/Vol] 111 mg/dL 74-106 [facility] Comment on above: Fasting Glucose resu lt from 100 to 125 mg/dL suggests IMPAIRED HOMEOSTASIS per A.D.A. criteria. Hemoglobin (Bld) [Mass/Vol] 14.7 g/dL 12.0-15.0 [facility] Monocytes/100 WBC (Bld) 9.8 % 0-10 [facility] Neutrophils (Bld) [#/Vol] 6.2 10*3/uL 2.0-7.7 [facility] Neutrophils/100 WBC (Bld) 66.6 % 47-70 [facility] Potassium [Moles/Vol] 3.4 mmol/L 3.5-5.1 [facility] Protein [Mass/Vol] 8.1 g/dL 6.4-8.2 [facility] Sodium [Moles/Vol] 135 mmol/L 136-145 [facility] WBC (Bld) [#/Vol] 9.4 10*3/uL 4.4-11.0 [facility] Bilirubin Test strip Ql (U)O rdered By: Arianne Navarro on 04-07-2023 Bilirubin Ql (U) Negative Negative [facility] Determination of erythrocyte mean corpuscular volume (MCV)Ordered By: Arianne Navarro on 04-07-2023 MCV (RBC) [Entitic vol] 85.4 fL 81-99 [facility] Direct bilirubinOrdered By: Arianne Navarro on 04-07-2023 Bilirubin.direct [Mass/Vol] 0.24 mg/dL 0.00-0.30 [facility] Erythrocyte distribution wid th ratioOrdered By: Arianne Navarro on 04-07-2023 Erythrocyte distribution width (RBC) [Ratio] 13.2 % 11.6-14.6 [facility] Erythrocyte distribution wid th standard deviationOrdered By: Arianne Navarro on 04-07-2023 Erythrocyte distribution width (RBC) [Entitic vol] 41.1 fL 35.1-43.9 [facility] Hematocrit Auto (Bld) [Volum e fraction]Ordered By: Arianne Navarro on 04-07-2023 Hematocrit (Bld) [Volume fraction] 44.5 % 37-47 [facility] Immature granulocytes/100 WB C Auto (Bld)Ordered By: Arianne Navarro on 04-07-2023 Immature granulocytes/100 WBC (Bld) 0.200 % 0.0-0.9 [facility] Comment on above: IG% - Immature Granu locytes (promyelocytes, myelocytes and metamyelocytes) > 1% indicates that a LEFT SHIFT is Present. Ketones Test strip Ql (U)Ord ered By: Arianne Navarro on 04-07-2023 Ketones Ql (U) Negative Negative [facility] Laboratory - Chemistry and C hemistry - challengeOrdered By: Arianne Navarro on 04-07-2023 ALP [Catalytic activity/Vol] 167 U/L 45-117 [facility] ALT [Catalytic activity/Vol] 28 U/L 13-56 [facility] CO2 [Moles/Vol] 26.0 mmol/L 21.0-32.0 [facility] Globulin (S) [Mass/Vol] 4.4 g/dL 2.2-4.2 [facility] Lipase [Catalytic activity/Vol] 21 U/L 13-75 [facility] Comment on above: Please note:LIPASE r evised reference range effective 22. New Lipase methodology. Expected to produce lower values than the previous assay method. NEW Reference Range: 13 - 75 U/L Urea nitrogen/Creatinine [Mass ratio] 15.3 mg/mg 10-20 [facility] Laboratory - Hematology and Cell countsOrdered By: Arianne Navarro on 04-07-2023 MCH (RBC) [Entitic mass] 28.2 pg 27.0-32.0 [facility] MCHC (RBC) [Mass/Vol] 33.0 g/dL 32-36 [facility] Nucleated RBC/100 WBC (Bld) [Ratio] 0 % 0-5 [facility] Platelets (Bld) [#/Vol] 212 10*3/uL 150-450 [facility] Mucus LM Ql (Urine sed)Order ed By: Arianne Navarro on 04-07-2023 Mucus Ql (Urine sed) 0 SEEN /hpf [facility] Nitrite Test strip Ql (U)Ord ered By: Arianne Navarro on 04-07-2023 Nitrite Ql (U) Negative Negative [facility] No Panel InformationOrdered By: Arianne Navarro on 04-07-2023 Estimated Creatinine Clearance Calc 59.45 ml/min [facility] Estimated GFR (MDRD) Amer 53 mL/min >60 [facility] Comment on above: GFR Calc Estimated GFR (MDRD) Non-Af Amer 44 mL/min >60 [facility] Comment on above: Non- GFR Calc Troponin I High Sensitivity 7 pg/mL 3.0-54.0 [facility] Comment on above: Please Note: New Keli t Units and Gender Specific Reference Ranges. For more information see Policy Stat Procedure [place] High Sensitivity Troponin (TNIH) and attachments. Urine RBC 0 SEEN /hpf 0-5 [facility] Platelet mean volume [place] ker (Bld) [Entitic vol]Ordered By: Arianne Navarro on 04-07-2023 Platelet mean volume (Bld) [Entitic vol] 11.3 fL 6.2-12.0 [facility] Protein Test strip Ql (U)Ord ered By: Arianne Navarro on 04-07-2023 Protein Ql (U) Negative Negative [facility] RBC Auto (Bld) [#/Vol]Ordere d By: Arianne Navarro on 04-07-2023 RBC (Bld) [#/Vol] 5.21 10*6/uL 4.2-5.4 [facility] Serum or plasma calcium allison urement (mass/volume)Ordered By: Arianne Navarro on 04-07-2023 Calcium [Mass/Vol] 9.4 mg/dL 8.5-10.1 [facility] Serum or plasma creatinine m easurement (mass/volume)Ordered By: Arianne Navarro on 04-07-2023 Creatinine [Mass/Vol] 1.31 mg/dL 0.55-1.02 [facility] Comment on above: The validity of the calculated GFR & GFRAA in patients over 70 years has not been determined. Clinical correlation is essential. Serum or plasma urea nitroge n measurement (mass/volume)Ordered By: Arianne Navarro on 04-07-2023 Urea nitrogen [Mass/Vol] 20 mg/dL 7-18 [facility] Squamous epithelial cells de tection in urine sediment by light microscopyOrdered By: Arianne Navarro on 04-07-2023 Epithelial cells.squamous LM Ql (Urine sed) 0 SEEN /hpf 5-10 [facility] Thin prep Papanicolaou smear with manual screeningOrdered By: Arianne Navarro on 04-07-2023 Thin prep Papanicolaou smear with manual screening 3.7 g/dL 3.2-5.0 [facility] Thin prep Papanicolaou smear with manual screening 21 U/L 15-37 [facility] Thin prep Papanicolaou smear with manual screening 8 5-15 [facility] Urine blood detectionOrdered By: Arianne Navarro on 04-07-2023 RBC Ql (U) Negative Negative [facility] Urine clarityOrdered By: Cherie Navarro on 04-07-2023 Clarity (U) Clear Clear [facility] Urine color determinationOrd ered By: Arianne Navarro on 04-07-2023 Color (U) Yellow Yellow [facility] Urine glucose detectionOrder ed By: Arianne Navarro on 04-07-2023 Glucose Ql (U) Normal mg/dl Normal [facility] Urine leukocyte esterase det ection by dipstickOrdered By: Arianne Navarro on 04-07-2023 Leukocyte esterase Test strip Ql (U) 25 /ul Negative [facility] Urine pHOrdered By: Arianne Navarro on 04-07-2023 pH (U) 6.5 [pH] 5.0 - 8.0 [facility] Urine sediment bacteria coun t by microscopy (number/high power field)Ordered By: Arianne Navarro on 04-07-2023 Bacteria LM.HPF (Urine sed) [#/Area] 0 /[HPF] None Seen [facility] Urine specific gravity measu rementOrdered By: Arianne Navarro on 04-07-2023 Specific gravity (U) [Rel density] 1.010 1.002-1.03 0 [facility] Urine urobilinogen measureme ntOrdered By: Arianne Navarro on 04-07-2023 Urobilinogen Ql (U) Normal mg/dl Normal [facility] XR TIBIA FIBULA 2V AP/LAT RI Marisa 02-21-2023 [facility] Basophil percentageOrdered B y: Porfirio Jeff on 12-30-2022 Chloride [Moles/Vol] 107 mmol/L 98-107 [facility] Glucose [Mass/Vol] 98 mg/dL 74-106 [facility] Potassium [Moles/Vol] 3.8 mmol/L 3.5-5.1 [facility] Sodium [Moles/Vol] 140 mmol/L 136-145 [facility] Laboratory - Chemistry and C hemistry - challengeOrdered By: Porfirio Jeff on 12-30-2022 CO2 [Moles/Vol] 30.0 mmol/L 21.0-32.0 [facility] Urea nitrogen/Creatinine [Mass ratio] 14.9 mg/mg 12-31 [facility] No Panel InformationOrdered By: Porfirio Jeff on 12-30-2022 Estimated GFR (MDRD) Amer 46 mL/min >60 [facility] Comment on above: GFR Calc Estimated GFR (MDRD) Non-Af Amer 38 mL/min >60 [facility] Comment on above: Non- GFR Calc Serum or plasma calcium allison urement (mass/volume)Ordered By: Porfirio Jeff on 12-30-2022 Calcium [Mass/Vol] 9.1 mg/dL 8.5-10.1 [facility] Serum or plasma creatinine m easurement (mass/volume)Ordered By: Porfirio Jeff on 12-30-2022 Creatinine [Mass/Vol] 1.48 mg/dL 0.55-1.02 [facility] Comment on above: The validity of the calculated GFR & GFRAA in patients over 70 years has not been determined. Clinical correlation is essential. Serum or plasma urea nitroge n measurement (mass/volume)Ordered By: Porfirio Jeff on 12-30-2022 Urea nitrogen [Mass/Vol] 22 mg/dL 7-18 [facility] Thin prep Papanicolaou smear with manual screeningOrdered By: Porfirio Jeff on 12-30-2022 Thin prep Papanicolaou smear with manual screening 3 5-15 [facility] US KIDNEY/BLADDERon 12-04-19 [facility] Basophil percentageOrdered B y: Lilli Ware on 11-17-2022 Chloride [Moles/Vol] 106 mmol/L 98-107 [facility] Glucose [Mass/Vol] 86 mg/dL 74-106 [facility] Potassium [Moles/Vol] 3.6 mmol/L 3.5-5.1 [facility] Sodium [Moles/Vol] 139 mmol/L 136-145 [facility] WBC (Bld) [#/Vol] 7.5 10*3/uL 4.4-11.0 [facility] Blood erythrocytes count (nu mber/volume)Ordered By: Lilli Ware on 11-17-2022 RBC (Bld) [#/Vol] 4.82 10*6/uL 4.2-5.4 [facility] Blood hemoglobin measurement (mass/volume)Ordered By: Lilli Ware on 11-17-2022 Hemoglobin (Bld) [Mass/Vol] 14.0 g/dL 12.0-15.0 [facility] Blood platelet mean volumeOr dered By: Lilli Ware on 11-17-2022 Platelet mean volume (Bld) [Entitic vol] 11.4 fL 6.2-12.0 [facility] CBC panel Auto (Bld)on 11-17 Erythrocyte distribution width (RBC) [Ratio] 13.8 % 11.5 - 15.0 % [facility] Hematocrit (Bld) [Volume fraction] 43.2 % 36.0 - 46.0 % [facility] Hemoglobin (Bld) [Mass/Vol] 14.2 g/dL 11.5 - 15.5 g/dL [facility] MCH (RBC) [Entitic mass] 28.5 pg 26.0 - 34.0 pg [facility] MCHC (RBC) [Mass/Vol] 32.9 g/dL 30.5 - 36.0 g/dL [facility] MCV (RBC) [Entitic vol] 86.7 fL 80.0 - 100.0 fL [facility] Nucleated RBC (Bld) [#/Vol] <0.01 k/uL [facility] Platelet mean volume (Bld) [Entitic vol] 12.0 fL 9.0 - 12.7 fL [facility] Platelets (Bld) [#/Vol] 187 10*3/uL 150 - 400 k/uL [facility] RBC (Bld) [#/Vol] 4.98 10*6/uL 3.90 - 5.20 m/uL [facility] WBC (Bld) [#/Vol] 7.93 10*3/uL 3.70 - 11.00 k/uL [facility] Determination of erythrocyte mean corpuscular volume (MCV)Ordered By: Lilli Ware on 11-17-2022 MCV (RBC) [Entitic vol] 87.6 fL 81-99 [facility] Hematocrit Auto (Bld) [Volum e fraction]Ordered By: Lilli Ware on 11-17-2022 Hematocrit (Bld) [Volume fraction] 42.2 % 37-47 [facility] Laboratory - Chemistry and C hemistry - challengeOrdered By: Lilli Ware on 11-17-2022 CO2 [Moles/Vol] 28.0 mmol/L 21.0-32.0 [facility] Natriuretic peptide B (Bld) [Mass/Vol] 25.7 pg/mL 0-100 [facility] Urea nitrogen/Creatinine [Mass ratio] 14.7 mg/mg 10-20 [facility] Laboratory - Hematology and Cell countsOrdered By: Lilli Ware on 11-17-2022 Erythrocyte distribution width (RBC) [Entitic vol] 44.1 fL 35.1-43.9 [facility] Erythrocyte distribution width (RBC) [Ratio] 13.6 % 11.6-14.6 [facility] MCH (RBC) [Entitic mass] 29.0 pg 27.0-32.0 [facility] MCHC Auto (RBC) [Mass/Vol]Or dered By: Lilli Ware on 11-17-2022 MCHC (RBC) [Mass/Vol] 33.2 g/dL 32-36 [facility] No Panel InformationOrdered By: Lilli Waer on 11-17-2022 Estimated GFR (MDRD) Amer 51 mL/min >60 [facility] Comment on above: GFR Calc Estimated GFR (MDRD) Non-Af Amer 42 mL/min >60 [facility] Comment on above: Non- GFR Calc Thyroid Stimulating Hormone (TSH) 6.34 uIU/mL 0.358-3.74 [facility] Platelets bldOrdered By: Kevin Ware on 11-17-2022 Platelets (Bld) [#/Vol] 195 10*3/uL 150-450 [facility] Serum or plasma calcium allison urement (mass/volume)Ordered By: Lilli Ware on 11-17-2022 Calcium [Mass/Vol] 9.3 mg/dL 8.5-10.1 [facility] Serum or plasma creatinine m easurement (mass/volume)Ordered By: Lilli Ware on 11-17-2022 Creatinine [Mass/Vol] 1.36 mg/dL 0.55-1.02 [facility] Comment on above: The validity of the calculated GFR & GFRAA in patients over 70 years has not been determined. Clinical correlation is essential. Serum or plasma urea nitroge n measurement (mass/volume)Ordered By: Lilli Ware on 11-17-2022 Urea nitrogen [Mass/Vol] 20 mg/dL 7-18 [facility] Thin prep Papanicolaou smear with manual screeningOrdered By: Lilli Ware on 11-17-2022 Thin prep Papanicolaou smear with manual screening 5 5-15 [facility] XR Knee - right 4 Viewson IMPRESSION: Findings are suggestive of mild degenerative changes in the right knee. Climatologist: TAHIRA Transcribe Date/Time: Oct 09 2021 3:56P Dictated by : CLAUDIO LANGLEY MD This examination was interpreted and the report reviewed and electronically signed by: CLAUDIO LANGLEY MD on Oct 09 2021 4:02PM EST KoryZZ_DO_NOT _USE_DIVIS ION OF RADIOLOGY * * *Final Report* * [...] There is no significant soft tissue swelling. ASHLIE_DO_NOT _USE_DIVIS ION OF RADIOLOGY Provider, Venessa mosqueda Elcho - 10/09/2021 * * *Final Report* * [...] mild degenerative changes in the right knee. Climatologist: PSCB Transcribe Date/Time: Oct 09 2021 3:56P Dictated by : CLAUDIO LANGLEY MD This examination was interpreted and the report reviewed and electronically signed by: CLAUDIO LANGLEY MD on Oct 09 2021 4:02PM EST [facility] XR Knee - right 4 ViewsOrder ed By: Ccf Provider on 10-09-2021 [facility] XR Knee - right 4 Viewson Radiology [facility] Album[facility] Elph [Mass/Vol]on Albumin [Mass/Vol] 3.6 g/dL 2.9-4.4 [facility] Work Phone: Atypical perinuclear antineu trophil cytoplasmic antibodies measurementon 09-30-2021 Neutrophil cytoplasmic Ab.perinuclear.atypical IF (S) [Titer] <1:20 titer Neg:<1:20 [facility] Work Phone: Comment on above: The atypical pANCA p attern has been observed in asignificant percentage of patients with ulcerative colitis,primary sclerosing cholangitis and autoimmune hepatitis. Basophil percentageon 2021 Basophil percentage < 0.2 AI 0.0-0.9 [facility] Work Phone: Erythrocyte sedimentation ra romina 09-30-2021 ESR (Bld) [Velocity] 8 mm/h 0-30 [facility] Work Phone: Interpretation of serum or p lasma protein pattern by immunofixation (narrative resulton 09-30-2021 Protein Fractions Immunofixation Vicente [Interp] See comment [facility] Work Phone: Comment on above: NOT OBSERVED Laboratory - Chemistry and C hemistry - challengeon 09-30-2021 Amylase [Catalytic activity/Vol] 15 U/L 5-55 [facility] Work Phone: No Panel Informationon 09-30 Addendum Document Comment . [facility] Work Phone: Comment on above: Protein electrophore sis scan will follow via computer,mail, or cyber incident responder delivery. Centromere B Antibody <0.2 AI 0.0-0.9 [facility] Work Phone: Endomysial IgA Antibody Negative Negative [facility] Work Phone: Immunoglobulin E 35 IU/mL 6-495 [facility] Work Phone: VISUALIZER Antibody 0.2 AI 0.0-0.9 [facility] Work Phone: Serum DNA double strand anti body assay (units/volume)on 09-30-2021 DNA double strand Ab Qn (S) 1 [IU]/mL 0-9 [facility] Work Phone: Comment on above: Negative <5 Equivoca l 5 - 9 Positive >9 Serum Aster-1 antibody assay (u nits/volume)on 09-30-2021 Aster-1 extractable nuclear Ab Qn (S) <0.2 AI 0.0-0.9 [facility] Work Phone: Serum Scl-70 extractable nuc lear antibody assay (units/volume)on 09-30-2021 SCL-70 extractable nuclear Ab Qn (S) <0.2 AI 0.0-0.9 [facility] Work Phone: Serum Stacy extractable nucl ear antibody detectionon 09-30-2021 Stacy extractable nuclear Ab Ql (S) <0.2 AI 0.0-0.9 [facility] Work Phone: Serum onnvi-5-vdfcnzqk measu rement by electrophoresison 09-30-2021 Alpha 1 globulin Elph [Mass/Vol] 0.2 g/dL 0.0-0.4 [facility] Work Phone: Alpha 1 globulin Elph [Mass/Vol] 0.7 g/dL 0.4-1.0 [facility] Work Phone: Serum classic neutrophil cyt oplasmic antibody assay (units/volume)on 09-30-2021 Neutrophil cytoplasmic Ab.classic Qn (S) <1:20 titer Neg:<1:20 [facility] Work Phone: Serum globulin measurement ( mass/volume)on 09-30-2021 Globulin (S) [Mass/Vol] 3.2 g/dL 2.2-3.9 [facility] Work Phone: Serum or plasma C reactive p rotein measurement (mass/volume)on 09-30-2021 CRP [Mass/Vol] mg/L 0.0-3.0 [facility] Work Phone: Comment on above: C-Reactive Protein ( CRP) provides useful information for thediagnosis, therapy and monitoring of inflammatory processesand associated diseases. For the evaluation of Relative Riskfor Cardiovascular Disease, a High Sensitivity CRP (HSCRP)should be ordered. Serum or plasma IgA measurem ent (mass/volume)on 09-30-2021 IgA [Mass/Vol] 180 mg/dL 87-352 [facility] Work Phone: Serum or plasma IgG measurem ent (mass/volume)on 09-30-2021 IgG [Mass/Vol] 1098 mg/dL [phone] [facility] Work Phone: Serum or plasma IgM measurem ent (mass/volume)on 09-30-2021 IgM [Mass/Vol] 89 mg/dL 26-217 [facility] Work Phone: Serum or plasma beta globuli n measurement by electrophoresis (mass/volume)on 09-30-2021 Beta globulin Elph [Mass/Vol] 1.1 g/dL 0.7-1.3 [facility] Work Phone: Serum or plasma gamma globul in measurement by electrophoresis (mass/volume)on 09-30-2021 Gamma globulin Elph [Mass/Vol] 1.1 g/dL 0.4-1.8 [facility] Work Phone: Serum or plasma gastrin allison urement (mass/volume)on 09-30-2021 Gastrin [Mass/Vol] 114 pg/mL 0-115 [facility] Work Phone: Comment on above: Siemens Immulite 200 0 Immunochemiluminometric assay (ICMA)Values obtained with different assay methods or kits cannotbe used interchangeably. Results cannot be interpreted asabsolute evidence of the presence or absence of malignantdisease.Performed at: [facility] [employer] [id number] Director: Rob Medel PhD, Phone: [phone] at: [facility] [employer] [id number] Director: Woody Flowers MD, Phone: [phone] Serum or plasma immunoelectr ophoresis interpretation (nominal result)on 09-30-2021 Interpretation IEP [Interp] Comment . [facility] Work Phone: Comment on above: No monoclonality det ected. Serum perinuclear neutrophil cytoplasmic antibody titer by immunofluorescenceon 09-30-2021 Neutrophil cytoplasmic Ab.perinuclear IF (S) [Titer] 1:20 titer Neg:<1:20 [facility] Work Phone: Comment on above: The presence of posi tive fluorescence exhibiting P-ANCA orC-ANCA patterns alone is not specific for the diagnosis ofWegener's Granulomatosis (WG) or microscopic polyangiitis.Decisions about treatment should not be based solely onANCA IFA results. The [employer] ANCA [employer] Consensusrecommends follow up testing of positive sera with both AL-3 and MPO-ANCA enzyme immunoassays. As many as 5% serumsamples are positive only by EIA. Ref. AM J Clin Lenbii9236;111:507-513. Serum tissue transglutaminas e IgA antibody assay (units/volume)on 09-30-2021 tTG IgA Qn (S) <2 U/mL 0-3 [facility] Work Phone: Comment on above: Negative 0 - 3 Weak Positive 4 - 10 Positive >10 Tissue Transglutaminase (tTG) has been identified as the endomysial antigen. Studies have demonstr- ated that endomysial IgA antibodies have over 99% specificity for gluten sensitive enteropathy. Thin prep Papanicolaou smear with manual screeningon 09-30-2021 Thin prep Papanicolaou smear with manual screening 179 U/L 84-246 [facility] Work Phone: Thin prep Papanicolaou smear with manual screening 1.2 0.7-1.7 [facility] Work Phone: Total protein bloodon 2021 Protein [Mass/Vol] 6.8 g/dL 6.0-8.5 [facility] Work Phone: Absolute lymphocyte counton 09-23-2021 Lymphocytes Auto (Unsp spec) [#/Vol] 1.88 10*3/uL 0.83-4.51 [facility] Work Phone: Basophil percentageon 2021 Basophils/100 WBC (Bld) 0.4 % 0-1 [facility] Work Phone: Bilirubin [Mass/Vol] 0.70 mg/dL 0.20-1.00 [facility] Work Phone: Comment on above: For patients on eltr ombopag therapy, use of Dimension [place] TBIL is not recommended. Chloride [Moles/Vol] 105 mmol/L 98-107 [facility] Work Phone: Eosinophils/100 WBC (Bld) 0.9 % 0-5 [facility] Work Phone: Glucose [Mass/Vol] 89 mg/dL 74-106 [facility] Work Phone: Neutrophils (Bld) [#/Vol] 5.2 10*3/uL 2.0-7.7 [facility] Work Phone: Neutrophils/100 WBC (Bld) 65.2 % 47-70 [facility] Work Phone: Potassium [Moles/Vol] 3.6 mmol/L 3.5-5.1 [facility] Work Phone: Protein [Mass/Vol] 7.5 g/dL 6.4-8.2 [facility] Work Phone: Sodium [Moles/Vol] 140 mmol/L 136-145 [facility] Work Phone: WBC (Bld) [#/Vol] 7.9 10*3/uL 4.4-11.0 [facility] Work Phone: Blood erythrocytes count (nu mber/volume)on 09-23-2021 RBC (Bld) [#/Vol] 5.06 10*6/uL 4.2-5.4 [facility] Work [facility]: Blood hemoglobin measurement (mass/volume)on 09-23-2021 Hemoglobin (Bld) [Mass/Vol] 14.5 g/dL 12.0-15.0 [facility] Work Phone: Blood lymphocytes/100 leukoc yteson 09-23-2021 Lymphocytes/100 WBC (Bld) 23.7 % 19-41 [facility] Work Phone: Blood monocytes/100 leukocyt eson 09-23-2021 Monocytes/100 WBC (Bld) 9.5 % 0-10 [facility] Work Phone: Blood platelet mean volumeon 07-13-2022 Platelet mean volume (Bld) [Entitic vol] 11.6 fL 6.2-12.0 [facility] Work Phone: Determination of erythrocyte mean corpuscular volume (MCV)on 09-23-2021 MCV (RBC) [Entitic vol] 86.6 fL 81-99 [facility] Work Phone: [phone] Hematocrit Auto (Bld) [Volum e fraction]on 09-23-2021 Hematocrit (Bld) [Volume fraction] 43.8 % 37-47 [facility] Work Phone: [phone] Laboratory - Chemistry and C hemistry - challengeon 09-23-2021 ALP [Catalytic activity/Vol] 122 U/L 45-117 [facility] Work Phone: [phone] ALT [Catalytic activity/Vol] 29 U/L 13-56 [facility] Work Phone: [phone] CO2 [Moles/Vol] 31.0 mmol/L 21.0-32.0 [facility] Work Phone: [phone] Free T4 [Mass/Vol] 1.38 ng/dL 0.76-1.[address] [facility] Work Phone: [phone] Globulin (S) [Mass/Vol] 3.8 g/dL 2.2-4.2 [facility] Work Phone: [phone] Magnesium [Mass/Vol] 2.2 mg/dL 1.6-2.6 [facility] Work Phone: [phone] Natriuretic peptide B (Bld) [Mass/Vol] 36.6 pg/mL 0-100 [facility] Work Phone: Urea nitrogen/Creatinine [Mass ratio] 11.0 mg/mg 10-20 [facility] Work Phone: [phone] Laboratory - Hematology and Cell countson 09-23-2021 Erythrocyte distribution width (RBC) [Entitic vol] 43.0 fL 35.1-43.9 [facility] Work Phone: [phone] Erythrocyte distribution width (RBC) [Ratio] 13.8 % 11.6-14.6 [facility] Work Phone: Immature granulocytes/100 WBC (Bld) 0.300 % 0.0-0.9 [facility] Work Phone: Comment on above: IG% - Immature Granu locytes (promyelocytes, myelocytes and metamyelocytes) > 1% indicates that a LEFT SHIFT is Present. MCH (RBC) [Entitic mass] 28.7 pg 27.0-32.0 [facility] Work Phone: Nucleated RBC/100 WBC (Bld) [Ratio] 0 % 0-5 [facility] Work Phone: MCHC Auto (RBC) [Mass/Vol]on 09-23-2021 MCHC (RBC) [Mass/Vol] 33.1 g/dL 32-36 [facility] Work Phone: No Panel Informationon 09-23 Estimated GFR (MDRD) Amer 66 mL/min >60 [facility] Work Phone: Comment on above: GFR Calc Estimated GFR (MDRD) Non-Af Amer 55 mL/min >60 [facility] Work Phone: Comment on above: Non- GFR Calc Thyroid Stimulating Hormone (TSH) 3.19 uIU/mL 0.358-3.74 [facility] Work Phone: Platelets bldon 09-23-2021 Platelets (Bld) [#/Vol] 279 10*3/uL 150-450 [facility] Work Phone: Serum or plasma albumin allison urement (mass/volume)on 09-23-2021 Albumin [Mass/Vol] 3.7 g/dL 3.2-5.0 [facility] Work Phone: Serum or plasma albumin/glob ulin mass ratioon 09-23-2021 Albumin/Globulin [Mass ratio] 1.0 {ratio} 0.9-2.4 [facility] Work Phone: Serum or plasma calcium allison urement (mass/volume)on 09-23-2021 Calcium [Mass/Vol] 9.2 mg/dL 8.5-10.1 [facility] Work Phone: Serum or plasma creatinine m easurement (mass/volume)on 09-23-2021 Creatinine [Mass/Vol] 1.09 mg/dL 0.55-1.02 [facility] Work Phone: Comment on above: The validity of the calculated GFR & GFRAA in patients over 70 years has not been determined. Clinical correlation is essential. Serum or plasma urea nitroge n measurement (mass/volume)on 09-23-2021 Urea nitrogen [Mass/Vol] 12 mg/dL 7-18 [facility] Work Phone: Thin prep Papanicolaou smear with manual screeningon 09-23-2021 Thin prep Papanicolaou smear with manual screening 20 U/L 15-37 [facility] Work Phone: Thin prep Papanicolaou smear with manual screening 4 5-15 [facility] Work Phone: Whole blood hemoglobin A1c/t otal hemoglobin ratio (mass fraction)on 09-23-2021 HbA1c (Bld) [Mass fraction] 5.4 % 3.8-5.6 [facility] Work Phone: Comment on above: Normal < 5.7 % Predi abetic 5.7 - 6.4 % Diabetic >or= 6.5 % Please note range changes. No Panel Information SARS-CoV-2 & FLU Antigen (Rapid) SARS-CoV-2 (COVID 19) [facility] Work Phone: Vital Signs Date Time Vital Sign Value Performing Clinician Facility 10-29-2024 16:03-0400 Body height 165.[address] Sam Null MD Work Phone: [facility] 10-29-2024 16:03-0400 Body mass index (BMI) [Ratio] 35.4 kg/m2 Dr. Sam Null MD Work Phone: [facility] 10-29-2024 16:03-0400 Body weight 96.[address] Sam Null MD Work Phone: [facility] 10-29-2024 16:03-0400 Diastolic blood pressure 77 mm[Hg] Dr. Sam Null MD Work Phone: [phone] [place] [address] 10-29-2024 16:03-0400 Heart rate 60 /min Dr. Sam Null MD Work Phone: [phone] [place] [address] 10-29-2024 16:03-0400 Respiratory rate 16 /min Dr. Sam Null MD Work Phone: [phone] [place] [address] 10-29-2024 16:03-0400 Systolic blood pressure 128 mm[Hg] Dr. Sam Null MD Work Phone: [phone] [place] [address] 08-27-2024 14:16-0400 Body height 165.[address] Sam Nlul MD Work Phone: [phone] [place] [address] 08-27-2024 14:16-0400 Body mass index (BMI) [Ratio] 36.1 kg/m2 Dr. Sam Null MD Work Phone: [phone] [place] [address] 08-27-2024 14:16-0400 Body weight 98.[address] Sam Null MD Work Phone: [phone] [place] [address] 08-17-2024 14:09-0400 Body mass index (BMI) [Ratio] 38.89 kg/m2 Britni Lockwood APRN.LAST PATTERN GRADER Work Phone: [facility] 08-17-2024 14:09-0400 Body weight 98 kg Britni Lockwood RESEARCH INSTRUMENTATION TECHNICIAN.LAST PATTERN GRADER Work Phone: [facility] 08-17-2024 14:09-0400 Diastolic blood pressure 71 mm[Hg] Britni Mandie RESEARCH INSTRUMENTATION TECHNICIAN.LAST PATTERN GRADER Work Phone: [facility] 08-17-2024 14:09-0400 Heart rate 60 /min Britni Lockwood APRN.LAST PATTERN GRADER Work Phone: [facility] 08-17-2024 14:09-0400 Systolic blood pressure 104 mm[Hg] Britni Lockwood APRN.LAST PATTERN GRADER Work Phone: [facility] 08-13-2024 14:36-0400 Body height 165.[address] Sam Null MD Work Phone: [facility] 08-13-2024 14:36-0400 Body mass index (BMI) [Ratio] 36.6 kg/m2 Dr. Sma Null MD Work Phone: [facility] 08-13-2024 14:36-0400 Body weight 99.[address] Sam Null MD Work Phone: [facility] 08-13-2024 14:36-0400 Diastolic blood pressure 76 mm[Hg] Dr. Sam Null MD Work Phone: [facility] 08-13-2024 14:36-0400 Heart rate 84 /min Dr. Sam Null MD Work Phone: [facility] 08-13-2024 14:36-0400 SaO2% (BldA) [Mass fraction] 97 % Dr. Sam Null MD Work Phone: [facility] 08-13-2024 14:36-0400 Systolic blood pressure 117 mm[Hg] Dr. Sam Null MD Work Phone: [facility] 07-26-2024 16:57-0400 Body mass index (BMI) [Ratio] 39.68 kg/m2 Sam Null MD Work Phone: [facility] 07-26-2024 16:57-0400 Body weight 100 kg Sam Null MD Work Phone: [facility] 07-26-2024 16:57-0400 Diastolic blood pressure 72 mm[Hg] Sam Null MD Work Phone: [facility] 07-26-2024 16:57-0400 Heart rate 76 /min Sam Null MD Work Phone: [facility] 07-26-2024 16:57-0400 Respiratory rate 18 /min Sam Null MD Work Phone: [facility] 07-26-2024 16:57-0400 Systolic blood pressure 120 mm[Hg] Sam Null MD Work Phone: [facility] 07-03-2024 14:13-0400 Body height 158.8 cm Sofía Gromovsky RESEARCH INSTRUMENTATION TECHNICIAN.LAST PATTERN GRADER Work Phone: [facility] 07-03-2024 14:13-0400 Body mass index (BMI) [Ratio] 39.92 kg/m2 Sofía Gromovsky RESEARCH INSTRUMENTATION TECHNICIAN.LAST PATTERN GRADER Work Phone: [facility] 07-03-2024 14:13-0400 Body weight 100.61 kg Sofía Gromovsky RESEARCH INSTRUMENTATION TECHNICIAN.LAST PATTERN GRADER Work Phone: [facility] 07-03-2024 14:13-0400 Diastolic blood pressure 68 mm[Hg] Sofía Gromovsky RESEARCH INSTRUMENTATION TECHNICIAN.LAST PATTERN GRADER Work Phone: [facility] 07-03-2024 14:13-0400 Heart rate 73 /min Sofía Gromovsky RESEARCH INSTRUMENTATION TECHNICIAN.LAST PATTERN GRADER Work Phone: [facility] 07-03-2024 14:13-0400 Systolic blood pressure 112 mm[Hg] Sofía Gromovsky RESEARCH INSTRUMENTATION TECHNICIAN.LAST PATTERN GRADER Work Phone: [facility] 06-20-2024 13:06-0400 Body height 158.8 cm Joellen Hasenstaub RESEARCH INSTRUMENTATION TECHNICIAN.LAST PATTERN GRADER Work Phone: [facility] 06-20-2024 13:06-0400 Body mass index (BMI) [Ratio] 39.06 kg/m2 Joellen Hasenstaub RESEARCH INSTRUMENTATION TECHNICIAN.LAST PATTERN GRADER Work Phone: [facility] 06-20-2024 13:06-0400 Body weight 98.43 kg Joellen Hasenstaub RESEARCH INSTRUMENTATION TECHNICIAN.LAST PATTERN GRADER Work Phone: [facility] 06-19-2024 15:28-0400 Body height 167.[address] Sam Null MD Work Phone: [facility] 06-19-2024 15:28-0400 Body mass index (BMI) [Ratio] 35 kg/m2 Dr. Sam Null MD Work Phone: [phone] [place] [address] 06-19-2024 15:28-0400 Body weight 98.[address] Sam Null MD Work Phone: [phone] [place] [address] 06-19-2024 15:28-0400 Diastolic blood pressure 72 mm[Hg] Dr. Sam Null MD Work Phone: [phone] [place] [address] 06-19-2024 15:28-0400 Heart rate 56 /min Dr. Sam Null MD Work Phone: [phone] [place] [address] 06-19-2024 15:28-0400 Respiratory rate 20 /min Dr. Sam Null MD Work Phone: [phone] [place] [address] 06-19-2024 15:28-0400 SaO2% (BldA) [Mass fraction] 98 % Dr. Sam Null MD Work Phone: [phone] [address] [place], [place] [address] 06-19-2024 15:28-0400 Systolic blood pressure 118 mm[Hg] Dr. Sam Null MD Work Phone: 8(755)444-552981 [place] [address] 06-19-2024 13:45-0400 Body weight 98.[address] Sam Null MD Work Phone: 6(094)453-633981 [place] [address] 06-19-2024 13:45-0400 Heart rate 62 /min Dr. Sam Null MD Work Phone: 8(662)420-299381 [place] [address] 06-19-2024 13:45-0400 SaO2% (BldA) [Mass fraction] 99 % Dr. Sam Null MD Work Phone: 8(783)878-783577 [place] [address] 05-07-2024 11:53-0500 Body height 158.[address] Work Phone: [facility] 05-07-2024 11:53-0500 Body mass index (BMI) [Ratio] 38.88 kg/m2 Burak Schrader RD Work Phone: [facility] 05-07-2024 11:53-0500 Body weight 97.98 kg Burak Schrader EILEEN Work Phone: [facility] 05-03-2024 12:00-0500 Body mass index (BMI) [Ratio] 36.1 kg/m2 Dr. Sam Null MD Work Phone: [facility] 05-03-2024 12:00-0500 Body temperature 97 [degF] Dr. Sam Null MD Work Phone: [facility] 05-03-2024 12:00-0500 Body weight 98.[address] Sam Null MD Work Phone: [facility] 05-03-2024 12:00-0500 Diastolic blood pressure 81 mm[Hg] Dr. Sam Null MD Work Phone: [facility] 05-03-2024 12:00-0500 Heart rate 75 /min Dr. Sam Null MD Work Phone: [facility] 05-03-2024 12:00-0500 Respiratory rate 18 /min Dr. Sam Null MD Work Phone: [facility] 05-03-2024 12:00-0500 SaO2% (BldA) [Mass fraction] 98 % Dr. Sam Null MD Work Phone: [facility] 05-03-2024 12:00-0500 Systolic blood pressure 121 mm[Hg] Dr. Sam Null MD Work Phone: [facility] 04-20-2024 11:38-0500 Body height 158.8 cm Lisbet Steel PSYD Work Phone: [facility] 04-20-2024 11:38-0500 Body mass index (BMI) [Ratio] 39.89 kg/m2 Lisbet Steel PSYD Work Phone: [facility] 04-20-2024 11:38-0500 Body weight 100.52 kg Lisbet Steel PSYD Work Phone: [facility] 04-16-2024 12:56-0500 Body mass index (BMI) [Ratio] 39.88 kg/m2 Sam Null MD Work Phone: [facility] 04-16-2024 12:56-0500 Body temperature 97.11 [degF] Sam Null MD Work Phone: [facility] 04-16-2024 12:56-0500 Body weight 100.5 kg Sam Null MD Work Phone: [facility] 04-16-2024 12:56-0500 Diastolic blood pressure 66 mm[Hg] Sam Null MD Work Phone: [facility] 04-16-2024 12:56-0500 Heart rate 68 /min Sam Null MD Work Phone: [facility] 04-16-2024 12:56-0500 Systolic blood pressure 98 mm[Hg] Sam Null MD Work Phone: [facility] 04-13-2024 14:12-0500 Body mass index (BMI) [Ratio] 39.68 kg/m2 Britni Lockwood RESEARCH INSTRUMENTATION TECHNICIAN.LAST PATTERN GRADER Work Phone: [facility] 04-13-2024 14:12-0500 Body weight 100 kg Britni Mandie RESEARCH INSTRUMENTATION TECHNICIAN.LAST PATTERN GRADER Work Phone: [facility] 04-13-2024 14:12-0500 Diastolic blood pressure 80 mm[Hg] Britni Mandie RESEARCH INSTRUMENTATION TECHNICIAN.LAST PATTERN GRADER Work Phone: [facility] 04-13-2024 14:12-0500 Heart rate 68 /min Britni Mandie RESEARCH INSTRUMENTATION TECHNICIAN.LAST PATTERN GRADER Work Phone: [facility] 04-13-2024 14:12-0500 Systolic blood pressure 114 mm[Hg] Britni Mandie RESEARCH INSTRUMENTATION TECHNICIAN.LAST PATTERN GRADER Work Phone: [facility] 04-02-2024 14:27-0500 Body height 158.[address] Work Phone: [facility] 04-02-2024 14:27-0500 Body mass index (BMI) [Ratio] 40.68 kg/m2 Burak Beccristianer RD Work Phone: [facility] 04-02-2024 14:27-0500 Body weight 102.[address] Work Phone: [facility] 03-02-2024 13:41-0500 Body height 158.[address] Work Phone: [facility] 03-02-2024 13:41-0500 Body mass index (BMI) [Ratio] 40.68 kg/m2 Burak Benjaminer RD Work Phone: [facility] 03-02-2024 13:41-0500 Body weight 102.[address] Work Phone: [facility] 03-02-2024 11:12-0500 Body mass index (BMI) [Ratio] 37.6 kg/m2 Dr. Sam Null MD Work Phone: [facility] 03-02-2024 11:12-0500 Body weight 102.[address] Sam Null MD Work Phone: [facility] 02-07-2024 15:16-0500 Body height 158.[address] Work Phone: [facility] 02-07-2024 15:16-0500 Body mass index (BMI) [Ratio] 41.94 kg/m2 Richard [address] RD Work Phone: [facility] 02-07-2024 15:16-0500 Body weight 105.[address] Work Phone: [facility] 02-01-2024 15:01-0500 Body mass index (BMI) [Ratio] 40.86 kg/m2 Gunner Sutton APRN.CNP Work Phone: [facility] 02-01-2024 15:01-0500 Body weight 102.97 kg Gunner Kev RESEARCH INSTRUMENTATION TECHNICIAN.LAST PATTERN GRADER Work Phone: [facility] 01-05-2024 15:20-0400 Body height 158.[address] Work Phone: [facility] 01-05-2024 15:20-0400 Body mass index (BMI) [Ratio] 42.63 kg/m2 Burak Schrader RD Work Phone: [facility] 01-05-2024 15:20-0400 Body weight 107.[address] Work Phone: [facility] 12-12-2023 15:09-0400 Body mass index (BMI) [Ratio] 43.2 kg/m2 Gunner Kev RESEARCH INSTRUMENTATION TECHNICIAN.LAST PATTERN GRADER Work Phone: [facility] 12-12-2023 15:09-0400 Body weight 108.86 kg Gunner Kev RESEARCH INSTRUMENTATION TECHNICIAN.LAST PATTERN GRADER Work Phone: [facility] 11-18-2023 11:24-0400 Body mass index (BMI) [Ratio] 46.05 kg/m2 Britni Mandie RESEARCH INSTRUMENTATION TECHNICIAN.LAST PATTERN GRADER Work Phone: [facility] 11-18-2023 11:24-0400 Body weight 116.05 kg Britni Mandie RESEARCH INSTRUMENTATION TECHNICIAN.LAST PATTERN GRADER Work Phone: [facility] 11-18-2023 11:24-0400 Diastolic blood pressure 76 mm[Hg] Britni Mandie RESEARCH INSTRUMENTATION TECHNICIAN.LAST PATTERN GRADER Work Phone: [facility] 11-18-2023 11:24-0400 Heart rate 60 /min Britni Mandie RESEARCH INSTRUMENTATION TECHNICIAN.LAST PATTERN GRADER Work Phone: [facility] 11-18-2023 11:24-0400 Systolic blood pressure 114 mm[Hg] Britni Mandie RESEARCH INSTRUMENTATION TECHNICIAN.LAST PATTERN GRADER Work Phone: [facility] 10-14-2023 13:24-0400 Body mass index (BMI) [Ratio] 45.95 kg/m2 Sam Null MD Work Phone: [facility] 10-14-2023 13:24-0400 Body temperature 97.11 [degF] Sam Null MD Work Phone: [facility] 10-14-2023 13:24-0400 Body weight 115.8 kg Sam Null MD Work Phone: [facility] 10-14-2023 13:24-0400 Diastolic blood pressure 68 mm[Hg] Sam Null MD Work Phone: [facility] 10-14-2023 13:24-0400 Heart rate 90 /min Sam Null MD Work Phone: [facility] 10-14-2023 13:24-0400 Respiratory rate 18 /min Sam Null MD Work Phone: [facility] 10-14-2023 13:24-0400 SaO2% (BldA) [Mass fraction] 98 % Sam Null MD Work Phone: [facility] 10-14-2023 13:24-0400 Systolic blood pressure 116 mm[Hg] Sam Null MD Work Phone: [facility] 10-13-2023 10:56-0400 Body height 158.[address] Work Phone: [facility] 10-13-2023 10:56-0400 Body mass index (BMI) [Ratio] 45.93 kg/m2 Burak Schrader RD Work Phone: [facility] 10-13-2023 10:56-0400 Body weight 115.[address] Work Phone: [facility] 09-20-2023 11:37-0400 Body height 158.8 cm Gunner Sutton APRN.LAST PATTERN GRADER Work Phone: [facility] 09-20-2023 11:37-0400 Body mass index (BMI) [Ratio] 46.41 kg/m2 Gunner Sutton APRN.LAST PATTERN GRADER Work Phone: [facility] 09-20-2023 11:37-0400 Body weight 117.03 kg Gunner Kev RESEARCH INSTRUMENTATION TECHNICIAN.LAST PATTERN GRADER Work Phone: [facility] 09-20-2023 11:37-0400 Diastolic blood pressure 74 mm[Hg] Gunner Kev RESEARCH INSTRUMENTATION TECHNICIAN.LAST PATTERN GRADER Work Phone: [facility] 09-20-2023 11:37-0400 Heart rate 63 /min Gunner Kev RESEARCH INSTRUMENTATION TECHNICIAN.LAST PATTERN GRADER Work Phone: [facility] 09-20-2023 11:37-0400 Systolic blood pressure 128 mm[Hg] Gunner Kev RESEARCH INSTRUMENTATION TECHNICIAN.LAST PATTERN GRADER Work Phone: [facility] 09-08-2023 10:26-0400 Body height 157.5 cm Marii Herzog MD Work Phone: [facility] 09-08-2023 10:26-0400 Body mass index (BMI) [Ratio] 47.37 kg/m2 Marii Herzog MD Work Phone: [facility] 09-08-2023 10:26-0400 Body weight 117.48 kg Marii Herzog MD Work Phone: [facility] 09-08-2023 10:26-0400 Diastolic blood pressure 77 mm[Hg] Marii Herzog MD Work Phone: [facility] 09-08-2023 10:26-0400 Heart rate 63 /min Marii Herzog MD Work Phone: [facility] 09-08-2023 10:26-0400 Systolic blood pressure 129 mm[Hg] Marii Herzog MD Work Phone: [facility] 08-24-2023 11:50-0400 Body height 158.8 cm Carlos Mustafa MD Work Phone: [facility] 08-24-2023 11:50-0400 Body mass index (BMI) [Ratio] 46.36 kg/m2 Carlos Mustafa MD Work Phone: [facility] 08-24-2023 11:50-0400 Body weight 116.9 kg Carlos Mustafa MD Work Phone: [facility] 07-21-2023 14:02-0400 Diastolic blood pressure 63 mm[Hg] Marii Herzog MD Work Phone: [facility] 07-21-2023 14:02-0400 Heart rate 72 /min Marii Herzog MD Work Phone: [facility] 07-21-2023 14:02-0400 Respiratory rate 16 /min Marii Herzog MD Work Phone: [facility] 07-21-2023 14:02-0400 SaO2% (BldA) [Mass fraction] 99 % Marii Herzog MD Work Phone: [facility] 07-21-2023 14:02-0400 Systolic blood pressure 107 mm[Hg] Marii Herzog MD Work Phone: [facility] 07-21-2023 13:45-0400 Body temperature 97.39 [degF] Marii Herzog MD Work Phone: [facility] 07-15-2023 13:38-0400 Body mass index (BMI) [Ratio] 45.53 kg/m2 Sam Null MD Work Phone: [facility] 07-15-2023 13:38-0400 Body weight 116.57 kg Sam Null MD Work Phone: [facility] 07-15-2023 13:38-0400 Diastolic blood pressure 78 mm[Hg] Sam Null MD Work Phone: [facility] 07-15-2023 13:38-0400 Heart rate 64 /min Sam Null MD Work Phone: [facility] 07-15-2023 13:38-0400 Respiratory rate 16 /min Sam Null MD Work Phone: [facility] 07-15-2023 13:38-0400 SaO2% (BldA) [Mass fraction] 98 % Sam Null MD Work Phone: [facility] 07-15-2023 13:38-0400 Systolic blood pressure 122 mm[Hg] Sam Null MD Work Phone: [facility] 07-06-2023 13:00-0400 Body height 160 cm Marii Herzog MD Work Phone: [facility] 07-06-2023 13:00-0400 Body mass index (BMI) [Ratio] 45.92 kg/m2 Marii Herzog MD Work Phone: [facility] 07-06-2023 13:00-0400 Body weight 117.57 kg Marii Herzog MD Work Phone: [facility] 07-06-2023 13:00-0400 Diastolic blood pressure 82 mm[Hg] Marii Herzog MD Work Phone: [facility] 07-06-2023 13:00-0400 Heart rate 63 /min Marii Herzog MD Work Phone: [facility] 07-06-2023 13:00-0400 Systolic blood pressure 122 mm[Hg] Marii Herzog MD Work Phone: [facility] 07-05-2023 13:55-0400 Body height 165.[address] Sam Null Work Phone: [facility] 07-05-2023 13:55-0400 Body weight 107.[address] Sam Null Work Phone: [facility] 07-05-2023 13:55-0400 Heart rate 84 /min Dr. Sam Null Work Phone: [facility] 07-05-2023 13:55-0400 SaO2% (BldA) [Mass fraction] 98 % Dr. Sam Null Work Phone: [facility] 07-04-2023 15:15-0400 Body mass index (BMI) [Ratio] 43.1 kg/m2 Dr. Sam Null Work Phone: [facility] 07-04-2023 15:15-0400 Body weight 117.[address] Sam Null Work Phone: [facility] 04-14-2023 13:25-0500 Body height 160 cm Carlos Mustafa MD Work Phone: [facility] 04-14-2023 13:25-0500 Body weight 113.99 kg Carlos Mustafa MD Work Phone: [facility] 04-14-2023 13:25-0500 Diastolic blood pressure 72 mm[Hg] Carlos Mustafa MD Work Phone: [facility] 04-14-2023 13:25-0500 Heart rate 64 /min Carlos Mustafa MD Work Phone: [facility] 04-14-2023 13:25-0500 SaO2% (BldA) [Mass fraction] 97 % Carlos Mustafa MD Work Phone: [facility] 04-14-2023 13:25-0500 Systolic blood pressure 115 mm[Hg] Carlos Mustafa MD Work Phone: [facility] 04-07-2023 18:08-0500 Diastolic blood pressure 50 mm[Hg] Dr. Sam Null Work Phone: [facility] 04-07-2023 18:08-0500 Heart rate 66 /min Dr. Sam Null Work Phone: [facility] 04-07-2023 18:08-0500 Respiratory rate 12 /min Dr. Sam Null Work Phone: [facility] 04-07-2023 18:08-0500 SaO2% (BldA) [Mass fraction] 99 % Dr. Sam Null Work Phone: [facility] 04-07-2023 18:08-0500 Systolic blood pressure 96 mm[Hg] Dr. Sam Null Work Phone: [facility] 04-07-2023 13:59-0500 Body height 165.[address] Sam Null Work Phone: [facility] 04-07-2023 13:59-0500 Body mass index (BMI) [Ratio] 43.3 kg/m2 Dr. Sam Null Work Phone: 8(376)550-677481 [place] [address] 04-07-2023 13:59-0500 Body temperature 97.9 [degF] Dr. Sam Null Work Phone: 7(427)886-084781 [place] [address] 04-07-2023 13:59-0500 Body weight 118.[address] Sam Null Work Phone: 7(650)810-244881 [place] [address] 03-29-2023 08:23-0500 Body mass index (BMI) [Ratio] 44.5 kg/m2 Dr. Sam Null Work Phone: 7(723)207-587981 [place] [address] 03-29-2023 08:23-0500 Body temperature 97.8 [degF] Dr. Sam Null Work Phone: 7(788)917-236681 [place] [address] 03-29-2023 08:23-0500 Body weight 117.[address] Sam Null Work Phone: 5(253)101-397781 [place] [address] 03-29-2023 08:23-0500 Diastolic blood pressure 71 mm[Hg] Dr. Sam Null Work Phone: 6(721)567-640081 [place] [address] 03-29-2023 08:23-0500 Heart rate 66 /min Dr. Sam Null Work Phone: 5(786)818-530581 [place] [address] 03-29-2023 08:23-0500 Respiratory rate 18 /min Dr. Sam Null Work Phone: 7(209)441-986681 [place] [address] 03-29-2023 08:23-0500 SaO2% (BldA) [Mass fraction] 98 % Dr. Sam Null Work Phone: 6(281)453-537681 [place] [address] 03-29-2023 08:23-0500 Systolic blood pressure 117 mm[Hg] Dr. Sam Null Work Phone: 3(931)046-655281 [place] [address] 03-04-2023 14:33-0500 Body height 162.[address] Sam Null Work Phone: 5(906)751-719881 [place] [address] 03-04-2023 14:33-0500 Body mass index (BMI) [Ratio] 43.7 kg/m2 Dr. Sam Null Work Phone: 0(782)123-357781 [place] [address] 03-04-2023 14:33-0500 Body temperature 97.8 [degF] Dr. Sam Null Work Phone: 0(407)902-608681 [place] [address] 03-04-2023 14:33-0500 Body weight 115.[address] Sam Null Work Phone: 6(245)946-935581 [place] [address] 03-04-2023 14:33-0500 Diastolic blood pressure 77 mm[Hg] Dr. Sam Null Work Phone: 5(303)427-762981 [place] [address] 03-04-2023 14:33-0500 Heart rate 68 /min Dr. Sam Null Work Phone: 5(446)440-259881 [place] [address] 03-04-2023 14:33-0500 SaO2% (BldA) [Mass fraction] 97 % Dr. Sam Null Work Phone: 0(444)489-922581 [place] [address] 03-04-2023 14:33-0500 Systolic blood pressure 125 mm[Hg] Dr. Sam Null Work Phone: 1(752)020-419781 [place] [address] 02-25-2023 13:48-0500 Body mass index (BMI) [Ratio] 44.2 kg/m2 Dr. Sam Null Work Phone: 2(879)458-840281 [place] [address] 02-25-2023 13:48-0500 Body weight 117.[address] Sam Null Work Phone: 4(557)207-262181 [place] [address] 02-25-2023 13:48-0500 Diastolic blood pressure 71 mm[Hg] Dr. Sam Null Work Phone: 8(489)158-149581 [place] [address] 02-25-2023 13:48-0500 Heart rate 57 /min Dr. Sam Null Work Phone: 1(804)851-324081 [place] [address] 02-25-2023 13:48-0500 Respiratory rate 18 /min Dr. Sam Null Work Phone: [facility] 02-25-2023 13:48-0500 Systolic blood pressure 125 mm[Hg] Dr. Sam Nlul Work Phone: [facility] 01-27-2023 13:09-0500 Body weight 117.94 kg Carlos Mustafa MD Work Phone: [facility] 11-25-2022 13:37-0400 Body height 162.[address] Sam Null Work Phone: [facility] 11-25-2022 13:37-0400 Body mass index (BMI) [Ratio] 44.8 kg/m2 Dr. Sam Null Work Phone: 9(242)347-733377 [place] [address] 11-25-2022 13:37-0400 Body weight 118.[address] Sam Null Work Phone: 6(252)882-678677 [place] [address] 11-25-2022 13:37-0400 Diastolic blood pressure 78 mm[Hg] Dr. Sam Null Work Phone: 6(741)624-678777 [place] [address] 11-25-2022 13:37-0400 Heart rate 54 /min Dr. Sam Null Work Phone: 3(110)812-400777 [place] [address] 11-25-2022 13:37-0400 Respiratory rate 20 /min Dr. Sam Null Work Phone: 5(518)796-140177 [place] [address] 11-25-2022 13:37-0400 SaO2% (BldA) [Mass fraction] 96 % Dr. Sam Null Work Phone: [facility] 11-25-2022 13:37-0400 Systolic blood pressure 113 mm[Hg] Dr. Sam Null Work Phone: [facility] 11-17-2022 16:58-0400 Body height 157.5 cm Verito Older RESEARCH INSTRUMENTATION TECHNICIAN.LAST PATTERN GRADER Work Phone: [facility] 11-17-2022 16:58-0400 Body weight 118.39 kg Verito Older RESEARCH INSTRUMENTATION TECHNICIAN.LAST PATTERN GRADER Work Phone: [facility] 11-17-2022 16:58-0400 Diastolic blood pressure 74 mm[Hg] Verito Older RESEARCH INSTRUMENTATION TECHNICIAN.LAST PATTERN GRADER Work Phone: [facility] 11-17-2022 16:58-0400 Heart rate 72 /min Verito Older RESEARCH INSTRUMENTATION TECHNICIAN.LAST PATTERN GRADER Work Phone: [facility] 11-17-2022 16:58-0400 Respiratory rate 20 /min Verito Older RESEARCH INSTRUMENTATION TECHNICIAN.LAST PATTERN GRADER Work Phone: [facility] 11-17-2022 16:58-0400 SaO2% (BldA) [Mass fraction] 98 % Verito Older RESEARCH INSTRUMENTATION TECHNICIAN.LAST PATTERN GRADER Work Phone: [facility] 11-17-2022 16:58-0400 Systolic blood pressure 106 mm[Hg] Verito Older RESEARCH INSTRUMENTATION TECHNICIAN.LAST PATTERN GRADER Work Phone: [facility] 01-29-2022 11:33-0500 Body height 162.[address] Sam Null Work Phone: [facility] Work Phone: 01-29-2022 11:33-0500 Body mass index (BMI) [Ratio] 43.6 kg/m2 Dr. Sam Null Work Phone: [facility] Work Phone: 01-29-2022 11:33-0500 Body weight 115.[address] Sam Null Work Phone: [facility] Work Phone: 01-29-2022 11:33-0500 Diastolic blood pressure 77 mm[Hg] Dr. Sam Null Work Phone: [facility] Work Phone: 01-29-2022 11:33-0500 Heart rate 80 /min Dr. Sam Null Work Phone: [facility] Work Phone: 01-29-2022 11:33-0500 SaO2% (BldA) [Mass fraction] 97 % Dr. Sam Null Work Phone: [facility] Work Phone: 01-29-2022 11:33-0500 Systolic blood pressure 119 mm[Hg] Dr. Sam Null Work Phone: [facility] Work Phone: 01-19-2022 11:10-0500 Body mass index (BMI) [Ratio] 43.6 kg/m2 Dr. Sam Null Work Phone: [facility] Work Phone: 01-19-2022 11:10-0500 Body temperature 98.2 [degF] Dr. Sam Null Work Phone: [facility] Work Phone: 01-19-2022 11:10-0500 Body weight 115.[address] Sam Null Work Phone: [facility] Work Phone: 01-19-2022 11:10-0500 Diastolic blood pressure 80 mm[Hg] Dr. Sam Null Work Phone: [facility] Work Phone: 01-19-2022 11:10-0500 Heart rate 86 /min Dr. Sam Null Work Phone: [facility] Work Phone: 01-19-2022 11:10-0500 Respiratory rate 16 /min Dr. Sam Null Work Phone: [facility] Work Phone: 01-19-2022 11:10-0500 SaO2% (BldA) [Mass fraction] 97 % Dr. Sam Null Work Phone: [facility] Work Phone: 01-19-2022 11:10-0500 Systolic blood pressure 122 mm[Hg] Dr. Sam Null Work Phone: [facility] Work Phone: 2022 14:21-0400 Body mass index (BMI) [Ratio] 43.2 kg/m2 Dr. Sam Null Work Phone: [facility] Work Phone: 2022 14:21-0400 Body temperature 97.5 [degF] Dr. Sam Null Work Phone: [facility] Work Phone: 2022 14:21-0400 Body weight 114.[address] Sam Null Work Phone: [facility] Work Phone: 2022 14:21-0400 Diastolic blood pressure 77 mm[Hg] Dr. Sam Null Work Phone: [facility] Work Phone: 2022 14:21-0400 Heart rate 58 /min Dr. Sam Null Work Phone: [facility] Work Phone: 2022 14:21-0400 Respiratory rate 17 /min Dr. Sam Null Work Phone: [facility] Work Phone: 2022 14:21-0400 SaO2% (BldA) [Mass fraction] 97 % Dr. Sam Null Work Phone: [facility] Work Phone: 2022 14:21-0400 Systolic blood pressure 114 mm[Hg] Dr. Sam Null Work Phone: [facility] Work Phone: 09-30-2021 09:45-0400 Body height 162.[address] Sam Null Work Phone: [facility] Work Phone: 09-30-2021 09:45-0400 Body mass index (BMI) [Ratio] 43 kg/m2 Dr. Sam Null Work Phone: [facility] Work Phone: 09-30-2021 09:45-0400 Body weight 113.[address] Sam Null Work Phone: [facility] Work Phone: 09-30-2021 09:45-0400 Diastolic blood pressure 75 mm[Hg] Dr. Sam Null Work Phone: [facility] Work Phone: 09-30-2021 09:45-0400 Heart rate 75 /min Dr. Sam Null Work Phone: [facility] Work Phone: 09-30-2021 09:45-0400 SaO2% (BldA) [Mass fraction] 94 % Dr. Sam Null Work Phone: [facility] Work Phone: 09-30-2021 09:45-0400 Systolic blood pressure 120 mm[Hg] Dr. Sam Null Work Phone: [facility] Work Phone: 09-23-2021 13:18-0400 Body mass index (BMI) [Ratio] 42.9 kg/m2 Dr. Sam Null Work Phone: [facility] Work Phone: 09-23-2021 13:18-0400 Body weight 113.[address] Sam Null Work Phone: [facility] Work Phone: 09-23-2021 13:18-0400 Diastolic blood pressure 64 mm[Hg] Dr. Sam Null Work Phone: [facility] Work Phone: 09-23-2021 13:18-0400 Heart rate 75 /min Dr. Sam Null Work Phone: [facility] Work Phone: 09-23-2021 13:18-0400 Respiratory rate 18 /min Dr. Sam Null Work Phone: [facility] Work Phone: 09-23-2021 13:18-0400 SaO2% (BldA) [Mass fraction] 100 % Dr. Sam Null Work Phone: [facility] Work Phone: 09-23-2021 13:18-0400 Systolic blood pressure 98 mm[Hg] Dr. Sam Null Work Phone: [facility] Work Phone: 09-09-2021 21:28-0400 Diastolic blood pressure 78 mm[Hg] Dr. Sam Null Work Phone: [facility] Work Phone: 09-09-2021 21:28-0400 Respiratory rate 18 /min Dr. Sam Null Work Phone: [facility] Work Phone: 09-09-2021 21:28-0400 SaO2% (BldA) [Mass fraction] 98 % Dr. Sam Null Work Phone: [facility] Work Phone: 09-09-2021 21:28-0400 Systolic blood pressure 132 mm[Hg] Dr. Sam Null Work Phone: [facility] Work Phone: 09-09-2021 19:14-0400 Body mass index (BMI) [Ratio] 42.7 kg/m2 Dr. Sam Null Work Phone: [facility] Work Phone: 09-09-2021 19:14-0400 Body temperature 98.2 [degF] Dr. Sam Null Work Phone: [facility] Work Phone: 09-09-2021 19:14-0400 Body weight 113.[address] Sam Null Work Phone: [facility] Work Phone: 09-09-2021 19:14-0400 Heart rate 89 /min Dr. Sam Null Work Phone: [facility] Work Phone: Encounters Encounter Date Encounter Type Care Provider Facility Start: 01-01-2025 End: 01-01-2025 ambulatory Sam Null [place] [place]: 12-25-2024 End: 12-25-2024 ambulatory Kemar Byrnes Facility[place] Start: 11-21-2024 End: 11-22-2024 Refill Britni Lockwood APRN.[facility] Work Phone: [facility] Comment on above: Refill Request Start: 11-02-2024 End: 11-02-[address] Sam Null MD Work Phone: -Laboratory Start: 11-02-2024 End: 11-02-2024 Patient encounter procedure Porfirio Jeff SHIPFITTER APPRENTICE-C -Laboratory Work Phone: Start: 11-02-2024 End: 11-02-2024 ambulatory Porfirio Jeff NP Facility:[facility] Start: 10-29-2024 End: 10-29-2024 Patient encounter procedure Porfirio Jeff SHIPFITTER APPRENTICE-C -[facility] Work Phone: Start: 10-29-2024 End: 10-29-2024 Preoperative state Porfirio Jeff SHIPFITTER APPRENTICE-C [facility] Start: 10-29-2024 End: 10-29-[address] Sam Null MD Work Phone: -[facility] Start: 10-29-2024 ambulatory Sam Null Facili ty:[facility] Start: 10-25-2024 End: 10-25-2024 Follow-up encounter Sam Null MD Work Phone: Internal [facility] [place] Start: 10-22-2024 End: 10-22-2024 Refill Britni Lockwood APRN.LAST PATTERN GRADER Work Phone: Kidney Medicine Comment on above: Refill Request Start: 10-17-2024 ambulatory SAM NULL Faci lity:[facility] Start: 10-17-2024 End: 10-17-2024 ambulatory SAM NULL Facility:[facility] Start: 10-17-2024 Encounter for genera l adult medical examination without abnormal findings SAM NULL [facility] Start: 09-21-2024 End: 09-21-[address] Sam Null MD Work Phone: -Cat Scan [facility] Start: 09-21-2024 End: 09-21-2024 Patient encounter procedure Brittany Anderson SHIPFITTER APPRENTICE-C -Cat Scan [facility] Work Phone: Start: 09-21-2024 End: 09-21-2024 ambulatory Brittany Anderson NP Facility:[facility] Start: 09-13-2024 End: 09-13-2024 Telephone encounter Pamela Lopez PhD Work Phone: [facility] ([place]) Comment on above: Patient Update Start: 09-13-2024 End: 09-13-2024 Patient encounter procedure Pamela Lopez PhD Work Phone: [facility] ([place]) Comment on above: Executive function d eficit (Primary Dx); Cognitive complaints; History of ADHD Start: 09-13-2024 End: 09-13-2024 ambulatory SAM NULL Facility:[facility] Start: 09-06-2024 ambulatory Sam Null Facili ty:[facility] Start: 09-06-2024 End: 09-11-2024 Telephone encounter Sam Null MD Work Phone: [address] [place] [address] Start: 08-27-2024 End: 08-27-2024 Patient encounter procedure Kemar Byrnes DO [facility] Work Phone: Start: 08-27-2024 End: 08-27-[address] Sam Null MD Work Phone: [facility] Work Phone: Start: 08-17-2024 End: 08-17-2024 ambulatory BRITNI LOCKWOOD Facility:[facility] Start: 08-17-2024 End: 08-17-2024 Patient encounter procedure Britni Lockwood RESEARCH INSTRUMENTATION TECHNICIAN.LAST PATTERN GRADER Work Phone: Kidney Medicine Comment on above: Stage 3a chronic kid morenita disease (HCC) (Primary Dx); Essential hypertension; Encounter for long-term (current) use of NSAIDs Start: 08-15-2024 End: 08-16-2024 Telephone encounter Joellen Crowder RESEARCH INSTRUMENTATION TECHNICIAN.LAST PATTERN GRADER Work Phone: [facility] Start: 08-14-2024 End: 08-14-2024 ambulatory SAM NULL Facility:[facility] Start: 08-14-2024 End: 08-14-2024 Patient encounter procedure Psyc Testing [facility] [address] Work Phone: [facility] ([place]) Comment on above: Memory loss (Primary Dx) Start: 08-13-2024 End: 08-13-[address] Grant Morgan MD -[facility] Work Phone: Start: 08-13-2024 End: 08-13-[address] Sam Null MD Work Phone: [facility] Work Phone: Start: 08-13-2024 End: 08-13-2024 Telephone encounter Pamela Lopez PhD Work Phone: [facility] ([place]) Comment on above: Appointment Start: 08-09-2024 End: 10-09-2024 Follow-up encounter Britni Lockwood RESEARCH INSTRUMENTATION TECHNICIAN.LAST PATTERN GRADER Work Phone: Kidney Medicine Start: 08-09-2024 End: 08-09-2024 Telephone encounter Lisbet Steel PSYD Work Phone: [facility] Comment on above: Patient Update Start: 08-03-2024 Non-patient / Non-visit [facility]. Carola Quach MD -[facility] Start: 08-03-2024 End: 08-03-[address] Sam Null MD Work Phone: [facility] Work Phone: Start: 08-03-2024 End: 08-03-2024 Patient encounter procedure Porfirio Jeff SHIPFITTER APPRENTICEThanhC -Cardiovascular Services Work Phone: Start: 08-02-2024 End: 08-03-2024 ambulatory SAM NULL Facility:[facility] Start: 07-31-2024 ambulatory Kemar Byrnes Facility :[facility] Start: 07-30-2024 End: 09-29-2024 Follow-up encounter Sofía Multani APRN.CNP Work Phone: [facility] Start: 07-29-2024 End: 07-29-2024 Follow-up encounter Sam Null MD Work Phone: Internal [facility] [place] Start: 07-27-2024 End: 07-27-2024 Telephone encounter Marii Herzog MD Work Phone: [facility] Comment on above: MDT Start: 07-26-2024 ambulatory SAM NULL Faci lity:[facility] Start: 07-26-2024 End: 07-26-2024 Subsequent hospital visit by physician [facility] Work Phone: Radiology Comment on above: Right-sided low back pain with right-sided sciatica, unspecified chronicity [M54.41] Start: 07-26-2024 End: 07-26-2024 Patient encounter procedure Sam Null MD Work Phone: Internal [facility] [place] Comment on above: Right-sided low back pain with right-sided sciatica, unspecified chronicity (Primary Dx); Cirrhosis of liver without ascites, unspecified hepatic cirrhosis type (HCC); Stage 3a chronic kidney disease (HCC); Osteoarthritis of right knee, unspecified osteoarthritis type Start: 07-26-2024 End: 07-26-2024 ambulatory SAM NULL Facility:[facility] Start: 07-18-2024 End: 07-18-2024 Telephone encounter Pamela Lopez PhD Work Phone: [facility] ([place]) Comment on above: Appointment Start: 07-17-2024 End: 08-17-2024 ambulatory Sam Null MD Work Phone: [facility] [place] Start: 07-17-2024 End: 07-17-2024 Telephone encounter Lisbet Steel PSYD Work Phone: [facility] Comment on above: Appointment Start: 07-12-2024 ambulatory Kemar Byrnes Facility :[facility] Start: 07-10-2024 End: 07-10-2024 Patient encounter procedure Brittany Anderson SHIPFITTER APPRENTICE-C -Pulmonary Services/Neurology Work Phone: Start: 07-10-2024 End: 07-10-2024 ambulatory Brittany Anderson NP Facility:[facility] Start: 07-03-2024 End: 07-03-2024 ambulatory SAM NULL [facility] Start: 07-03-2024 End: 07-03-2024 ambulatory SAM NULL Facility:[facility] Start: 07-03-2024 End: 07-03-2024 E-mail encounter from caregiver Joellen Crowder CECELIA.LAST PATTERN GRADER Work Phone: [facility] Start: 07-03-2024 End: 07-03-2024 Patient encounter procedure Sofía Multani APRN.LAST PATTERN GRADER Work Phone: [facility] Comment on above: Class 2 obesity with body mass index (BMI) of 39.0 to 39.9 in adult, unspecified obesity type, unspecified whether serious comorbidity present (Primary Dx); VETO (obstructive sleep apnea); Cirrhosis of liver without ascites, unspecified hepatic cirrhosis type (HCC); Stage 3a chronic kidney disease (HCC); Paraesophageal hernia; Leg edema; Obesity, Class III, BMI 40-49.9 (morbid obesity); Acquired hypothyroidism; Gastroesophageal reflux disease, unspecified whether esophagitis present; VETO on CPAP; Dietary counseling and surveillance; BMI 39.0-39.9,adult topiramate Start: 06-25-2024 ambulatory Alfredo Reyes Facility:[facility] Start: 06-25-2024 Non-patient / Non-visit Dr. Alfredo matt -[facility] Start: 06-20-2024 End: 06-20-2024 Patient encounter procedure Joellen Crowder RESEARCH INSTRUMENTATION TECHNICIAN.LAST PATTERN GRADER Work Phone: [facility] Comment on above: Obesity, Class III, BMI 40-49.9 (morbid obesity) (HCC) (Primary Dx); Acquired hypothyroidism; Stage 3a chronic kidney disease (HCC); Gastroesophageal reflux disease, unspecified whether esophagitis present; Cirrhosis of liver without ascites, unspecified hepatic cirrhosis type (HCC); VETO on CPAP; Dietary counseling and surveillance; BMI 39.0-39.9,adult Start: 06-20-2024 End: 06-20-2024 Telemedicine consultation with patient Joellen Crowder RESEARCH INSTRUMENTATION TECHNICIAN.LAST PATTERN GRADER Work Phone: [facility] Start: 06-20-2024 End: 06-20-2024 ambulatory SAM NULL Facility:[facility] Start: 06-19-2024 Non-patient / Non-visit Reginald herrera -[facility] Work Phone: Start: 06-19-2024 End: 06-19-[address] Sam Null MD Work Phone: [facility] Work Phone: Start: 06-19-2024 End: 06-19-2024 Patient encounter procedure Brittany Anderson SHIPFITTER APPRENTICE-C -Pulmonary Services/Neurology Work Phone: Start: 06-19-2024 End: 06-19-2024 ambulatory Porfirio Jeff NP Facility:[facility] Start: 06-01-2024 End: 06-01-2024 Telephone encounter Lisbet MAGAÑAYD Work Phone: [facility] Start: 05-28-2024 End: 05-28-2024 Patient encounter procedure Burak Schrader RD Work Phone: [facility] Comment on above: Dietary counseling a nd surveillance (Primary Dx) Start: 05-28-2024 End: 05-28-2024 Telemedicine consultation with patient Burak Gomezgeovanna ARELLANO Work Phone: [facility] Start: 05-28-2024 End: 05-28-2024 ambulatory LUCRECIA NULL Facility:[facility] Start: 05-28-2024 End: 05-28-2024 Telephone encounter Burak Schrader RD Work Phone: [facility] Comment on above: Appointment Start: 05-25-2024 ambulatory Sam Null Facili ty:[facility] Start: 05-17-2024 ambulatory Kemar Byrnes Facility :[facility] Start: 05-07-2024 End: 05-07-2024 Patient encounter procedure Burak Schrader RD Work Phone: [facility] Comment on above: Dietary counseling a nd surveillance (Primary Dx) Start: 05-07-2024 End: 05-07-2024 Telemedicine consultation with patient Burak Gomezgeovanna ARELLANO Work Phone: [facility] Start: 05-07-2024 End: 05-07-2024 ambulatory LUCRECIA NULL Facility:[facility] Start: 05-03-2024 End: 05-03-2024 Patient encounter procedure Brittany Anderson SHIPFITTER APPRENTICEThanhC -[facility] Work Phone: Start: 05-03-2024 End: 05-03-2024 ambulatory Sam Null Facility:[facility] Start: 04-20-2024 End: 04-20-2024 Patient encounter procedure Lisbet MAGAÑAYD Work Phone: [facility] Comment on above: Eating disorder, uns pecified type (Primary Dx); Anxiety; Trauma in childhood Start: 04-20-2024 End: 04-20-2024 ambulatory SAM NULL Facility:[facility] Start: 04-19-2024 ambulatory Kemar Byrnes Facility :[facility] Start: 04-16-2024 End: 04-16-2024 ambulatory SAM NULL Facility:[facility] Start: 04-16-2024 End: 04-16-2024 Patient encounter procedure Sam Null MD Work Phone: Internal Medicine [place] Comment on above: Need for influenza v accination (Primary Dx); Mild intermittent asthma without complication; Eczema, unspecified type; Atypical chest pain; Irritable bowel syndrome with diarrhea; Screening for cervical cancer; VETO on CPAP; Cirrhosis of liver without ascites, unspecified hepatic cirrhosis type (HCC) Start: 04-13-2024 End: 04-13-2024 ambulatory BRITNI LOCKWOOD Facility:[facility] Start: 04-13-2024 End: 04-13-2024 Patient encounter procedure Britni Lockwood RESEARCH INSTRUMENTATION TECHNICIAN.LAST PATTERN GRADER Work Phone: Kidney Medicine Comment on above: Stage 3b chronic kid morenita disease (HCC) (Primary Dx); Stage 3a chronic kidney disease (HCC); Right renal atrophy; Essential hypertension; NSAID long-term use Start: 04-05-2024 End: 04-05-2024 Telephone encounter Marii Herzog MD Work Phone: [facility] Comment on above: MDT Start: 04-03-2024 End: 04-03-2024 Orders Only Sofía Multani RESEARCH INSTRUMENTATION TECHNICIAN.LAST PATTERN GRADER Work Phone: [facility] Comment on above: Class 3 severe obesi ty due to excess calories with serious comorbidity and body mass index (BMI) of 45.0 to 49.9 in adult (HCC) (Primary Dx) Start: 04-02-2024 End: 04-02-2024 Patient encounter procedure Burak Schrader RD Work Phone: [facility] Comment on above: Dietary counseling a nd surveillance (Primary Dx) Start: 04-02-2024 End: 04-02-2024 Telemedicine consultation with patient Burak Schrader RD Work Phone: [facility] Start: 04-02-2024 End: 04-02-2024 ambulatory SAM NULL Facility:[facility] Start: 03-30-2024 End: 03-30-2024 Orders Only Sofía Multani RESEARCH INSTRUMENTATION TECHNICIANIvaLAST PATTERN GRADER Work Phone: [facility] Comment on above: Class 3 drug-induced obesity with serious comorbidity and body mass index (BMI) of 40.0 to 44.9 in adult (HCC) (Primary Dx) Start: 03-26-2024 End: 03-26-2024 [facility] Lisbet BarraganThanhMaurice ARAM Work Phone: [facility] Comment on above: Eating disorder, uns pecified type (Primary Dx); Anxiety; Trauma in childhood Start: 03-02-2024 End: 03-02-2024 ambulatory BURAK SCHRADER Facility:[facility] Start: 03-02-2024 End: 03-02-2024 Telemedicine consultation with patient Burak Schrader RD Work Phone: [facility] Start: 03-02-2024 End: 03-02-2024 Patient encounter procedure Burak Schrader RD Work Phone: [facility] Comment on above: Dietary counseling a nd surveillance (Primary Dx) Start: 03-02-2024 End: 03-02-2024 ambulatory Kemar Byrnes Facility[facility] Start: 03-01-2024 End: 03-01-2024 ambulatory SAM NULL Facility:[facility] Start: 03-01-2024 End: 03-01-2024 Patient encounter procedure Geri Fabian Work Phone: Podiatry Comment on above: Onychodystrophy (Jessica joellen Dx); Diminished pulses in lower extremity; Pain in toe of left foot; Pain in toe of right foot Start: 03-01-2024 End: 03-01-2024 ambulatory ASM NULL Facility:[facility] Start: 02-07-2024 End: 02-07-2024 Patient encounter procedure Richard [address] [place] [address] Work Phone: [facility] Comment on above: Established Patient Start: 02-07-2024 End: 02-07-[address] [place] [address] Work Phone: [facility] Start: 02-02-2024 End: 02-02-2024 Telephone encounter Marii Herzog MD Work Phone: [facility] Comment on above: Medical Clearance Start: 02-01-2024 End: 02-01-2024 Patient encounter procedure Gunner Sutton LAST PATTERN GRADER Work Phone: [facility] Comment on above: Class 3 drug-induced obesity with serious comorbidity and body mass index (BMI) of 40.0 to 44.9 in adult (HCC) (Primary Dx); VETO treated with BiPAP; Chronic kidney disease, unspecified CKD stage Start: 02-01-2024 End: 02-01-2024 Telemedicine consultation with patient Gunner Sutton CECELIA.LAST PATTERN GRADER Work Phone: [facility] Start: 02-01-2024 End: 02-01-2024 ambulatory LUCRECIA NULL Facility:[facility] Start: 01-23-2024 End: 01-23-2024 Telephone encounter Lisbet Steel PSYD Work Phone: [facility] Comment on above: Appointment (NO SHOW ) Start: 01-20-2024 End: 01-20-2024 ambulatory BRITNI LOCKWOOD Facility:[facility] Start: 01-20-2024 End: 01-20-2024 Patient encounter procedure Britni Lockwood RESEARCH INSTRUMENTATION TECHNICIAN.LAST PATTERN GRADER Work Phone: Kidney Medicine [facility] Comment on above: Stage 3b chronic kid morenita disease (HCC) (Primary Dx); Gastroesophageal reflux disease, unspecified whether esophagitis present; BMI 40.0-44.9, adult (HCC); Right renal atrophy Start: 01-05-2024 End: 01-05-[address] Work Phone: [facility] Start: 01-05-2024 End: 01-05-2024 Patient encounter procedure Burak Gomezgeovanna ARELLANO Work Phone: [facility] Comment on above: Established Patient Start: 01-04-2024 End: 01-04-2024 ambulatory LUCRECIA NULL Facility:[facility] Start: 12-27-2023 End: 12-27-2023 Refill Gunner Sutton APRN.LAST PATTERN GRADER Work Phone: [facility] Comment on above: Refill Request Start: 12-26-2023 End: 12-30-2023 Telephone encounter Britni Lockwood APRN.LAST PATTERN GRADER Work Phone: Kidney [facility] Start: 12-13-2023 End: 12-13-2023 Telephone encounter Marii Herzog MD Work Phone: [facility] Comment on above: Medical Clearance Start: 12-12-2023 End: 12-12-2023 Patient encounter procedure Gunner Sutton APRN.LAST PATTERN GRADER Work Phone: [facility] Comment on above: Class 3 severe obesi ty due to excess calories with serious comorbidity and body mass index (BMI) of 45.0 to 49.9 in adult (HCC) (Primary Dx); VETO treated with BiPAP; Chronic kidney disease, unspecified CKD stage; Atrial fibrillation, unspecified type ([facility]) Start: 12-12-2023 End: 12-12-2023 Telemedicine consultation with patient Gunner Sutton CECELIA.LAST PATTERN GRADER Work Phone: [facility] Start: 12-12-2023 End: 12-12-2023 ambulatory LUCRECIA NULL Facility:[facility] Start: 11-22-2023 End: 11-22-2023 Telephone encounter Sofía Multani APRN.LAST PATTERN GRADER Work Phone: [facility] Comment on above: Results Start: 11-18-2023 End: 11-18-2023 Patient encounter procedure Britni Lockwood APRN.LAST PATTERN GRADER Work Phone: Kidney Medicine [facility] Comment on above: Stage 3a chronic kid morenita disease (HCC) (Primary Dx); Vitamin D deficiency; Encounter for long-term (current) use of NSAIDs; Class 3 severe obesity with serious comorbidity and body mass index (BMI) of 45.0 to 49.9 in adult, unspecified obesity type (HCC) Start: 11-07-2023 End: 11-07-2023 Orders Only Gunner Sutton APRN.LAST PATTERN GRADER Work Phone: [facility] Comment on above: Vitamin D deficiency (Primary Dx) Start: 10-14-2023 End: 10-14-2023 Patient encounter procedure [facility] Provider [facility] Comment on above: Gastroesophageal ref lux disease, unspecified whether esophagitis present (Primary Dx); Mild intermittent asthma without complication; Screening for depression; Encounter for screening examination for other mental health and behavioral disorders; Atypical chest pain; Obesity, Class III, BMI 40-49.9 (morbid obesity) (HCC); Need for vaccination Start: 10-14-2023 Telephone encounter Loar pillai MD Work Phone: Kidney Medicine Comment on above: Results; Abnormal Ki dney Tests Start: 10-13-2023 End: 10-13-[address] Work Phone: [facility] Start: 10-13-2023 End: 10-13-2023 Patient encounter procedure Burak Schrader RD Work Phone: [facility] Comment on above: New Patient Start: 10-10-2023 Orders Only Gunner Sutton APRN .LAST PATTERN GRADER Work Phone: [facility] Comment on above: Vitamin D deficiency (Primary Dx); Folate deficiency Start: 09-20-2023 End: 09-20-2023 Patient encounter procedure Gunner Sutton APRN.LAST PATTERN GRADER Work Phone: [facility] Comment on above: Class 3 [...] Start: 09-12-2023 Patient encounter procedure [facility] Provider [facility] Start: 09-08-2023 Telephone encounter Sofía saleh APRN.CNP Work Phone: [facility] Comment on above: Patient Update (Brent atric Benefits Investigation ) Start: 09-08-2023 End: 09-08-2023 Patient encounter procedure Marii Herzog MD Work Phone: [facility] Comment on above: Gastroesophageal ref [...] Orthopaedics Comment on above: Refill Request Start: 08-25-[address] Sam Null MD Work Phone: [facility] Start: 08-24-2023 End: 08-24-2023 Office outpatient visit 25 minutes Carlos Mustafa MD Work Phone: Kidney Medicine [facility] Comment on above: Stage 3a chronic kid morenita disease (HCC) (Primary Dx); Obesity, Class III, BMI 40-49.9 (morbid obesity) (HCC); BMI 45.0-49.9, adult ([facility]); Gastroesophageal reflux disease without esophagitis Start: 08-17-2023 ambulatory Sam jose MD Work Phone: Internal Medicine [facility] Start: 08-11-2023 Refill Stephanie Uriostegui kory PA-C Work Phone: Orthopaedics Comment on above: Refill Request Start: 07-26-2023 Telephone encounter Carlos Mustafa MD Work Phone: Internal Med/Peds [place] Comment on above: Results Start: 07-21-2023 End: 07-21-2023 Subsequent hospital visit by physician Marii Herzog MD Work Phone: [facility] Comment on above: Esophageal dysphagia [R13.19] Gastroesophageal ref lux disease, unspecified whether esophagitis present [K21.9] Start: 07-15-2023 End: 07-15-2023 Patient encounter procedure Sam Null MD Work Phone: Internal [facility] Comment on above: Subclinical hypothyr oidism (Primary Dx); Mild intermittent asthma without complication; Eczema, unspecified type; Obesity, Class III, BMI 40-49.9 (morbid obesity) ([facility]); No appetite Start: 07-11-2023 Telephone encounter Sam sykes MD Work Phone: Internal [facility] Comment on above: Patient Question Start: 07-08-2023 End: 07-08-[address] Sam Null Work Phone: [facility] Work Phone: Start: 07-08-2023 End: 07-08-[address] Sam Null Work Phone: [facility] Work Phone: Start: 07-07-2023 Telephone encounter Marii rowland MD Work Phone: [facility] Comment on above: Appointment (EGD/Bra vo/Mano) Start: 07-06-2023 Telephone encounter Marii rowland MD Work Phone: [facility] Comment on above: Bariatric Seminar Start: 07-06-2023 End: 07-06-2023 Patient encounter procedure Marii Herzog MD Work Phone: [facility] Comment on above: Gastroesophageal ref lux disease, unspecified whether esophagitis present (Primary Dx); Class 3 severe obesity with serious comorbidity and body mass index (BMI) of 45.0 to 49.9 in adult, unspecified obesity type (HCC); Paraesophageal hernia; Stage 3 chronic kidney disease, unspecified whether stage 3a or 3b CKD (HCC); Hypothyroidism, unspecified type; Esophageal dysphagia Start: 07-06-2023 Non-patient / Non-visit Dr. Kelly Null Work Phone: [facility] Start: 07-05-2023 End: 07-05-[address] Sam Null Work Phone: [facility] Work Phone: Start: 07-05-2023 End: 07-05-[address] Sam Null Work Phone: [facility]-Pulmonary Services/Neurology Work Phone: Start: 07-04-2023 End: 07-04-[address] Sam Null Work Phone: [facility] Gastroenterology Work Phone: Start: 07-01-2023 Telephone encounter Carlos Mustafa MD Work Phone: Kidney Medicine Comment on above: Patient Question Start: 06-27-2023 End: 06-27-[address] Sam Null Work Phone: [facility] Work Phone: Start: 06-27-2023 End: 06-27-[address] Sam Null Work Phone: [facility]-Laboratory Work Phone: Start: 05-30-2023 Refill Frank Fletcher MD Work Phone: Orthopaedics Comment on above: Refill Request Start: 05-18-2023 End: 05-18-[address] Sam Null Work Phone: [facility] Work Phone: Start: 05-18-2023 End: 05-18-[address] Sam Null Work Phone: [facility]-Sleep Lab Work Phone: Start: 05-11-2023 Telephone encounter Carlos Mustafa MD Work Phone: Kidney Medicine Comment on above: Patient Question Start: 04-28-2023 End: 04-28-[address] Sam Null Work Phone: [facility] Work Phone: Start: 04-28-2023 End: 04-28-[address] [facility] Start: 04-27-2023 End: 04-27-[address] Sam Null Work Phone: [facility] Work Phone: Start: 04-27-2023 End: 04-27-[address] Sam Null Work Phone: [facility]-Sleep Lab Work Phone: Start: 04-14-2023 End: 04-14-2023 Office outpatient visit 40 minutes Carlos Mustafa MD Work Phone: Kidney Medicine Comment on above: Stage 3a chronic kid morenita disease (HCC) (Primary Dx); Elevated serum creatinine; Right renal atrophy; Obesity, Class III, BMI 40-49.9 (morbid obesity) (HCC); BMI 45.0-49.9, adult (HCC) Start: 04-13-2023 End: 04-13-[address] Sam Null Work Phone: [facility] Work Phone: Start: 04-13-2023 End: 04-13-[address] Sam Null Work Phone: [facility]-Cat Scan, [facility] Work Phone: Start: 04-07-2023 End: 04-07-2023 Emergency department patient visit Dr. Sam Null Work Phone: [facility]-Emergency Department Work Phone: Start: 04-04-2023 End: 04-04-[address] Sam Null Work Phone: [facility] Gastroenterology Work Phone: Start: 03-29-2023 End: 03-29-[address] Sam Null Work Phone: [facility]-Pulmonary Medicine [facility] Work Phone: Start: 03-22-2023 End: 03-22-[address] Sam Null Work Phone: [facility] Work Phone: Start: 03-22-2023 End: 03-22-[address] Sam Null Work Phone: [facility]-Radiology, [facility] Work Phone: Start: 03-17-2023 End: 03-17-[address] Sam Null Work Phone: [facility] Work Phone: Start: 03-10-2023 Non-patient / Non-visit Dr. Kelly Null Work Phone: [facility] Start: 03-08-2023 End: 03-08-[address] Sam Null Work Phone: [facility]-Pulmonary Services/Neurology Work Phone: Start: 03-04-2023 End: 03-04-[address] Sam Null Work Phone: [facility] [facility] Work Phone: Start: 02-25-2023 Telephone encounter Carlos Mustafa MD Work Phone: Kidney Medicine Comment on above: Patient Question Start: 02-25-2023 End: 02-25-[address] Sam Null Work Phone: [facility] [facility] Work Phone: Start: 02-21-2023 End: 02-21-2023 Subsequent hospital visit by physician [facility] Work Phone: Radiology Comment on above: Multiple leg contusi ons, right, initial encounter [S80.11XA] Start: 02-21-2023 End: 02-21-2023 Patient encounter procedure Frank Fletcher MD Work Phone: Orthopaedics Comment on above: Multiple leg contusi ons, right, initial encounter (Primary Dx); Acute pain of right knee; Primary osteoarthritis of right knee Start: 02-21-2023 End: 02-21-2023 Subsequent hospital visit by physician [facility] Work Phone: Radiology Comment on above: Right knee pain, uns pecified chronicity [M25.561] Start: 02-14-2023 Orders Only Frank Fletcher MD Work Phone: Orthopaedics Comment on above: Right knee pain, uns pecified chronicity (Primary Dx) Start: 01-27-2023 End: 01-27-2023 Office outpatient new 60 minutes Carlos Mustafa MD Work Phone: Kidney Medicine Comment on above: Stage 3a chronic kid morenita disease (HCC) (Primary Dx); Elevated serum creatinine; Right renal atrophy; Obesity, Class III, BMI 40-49.9 (morbid obesity) ([facility]); BMI 45.0-49.9, adult ([facility]); Gastroesophageal reflux disease without esophagitis Start: 12-30-2022 End: 12-30-[address] Sam Null Work Phone: [facility] Work Phone: Start: 12-30-2022 End: 12-30-[address] Sam Null Work Phone: [facility]-Nuclear Medicine, [facility] Work Phone: Start: 12-27-2022 Refill Stephanie tarango PA-Cameron Work Phone: Orthopaedics Comment on above: Refill Request Start: 12-03-2022 End: 12-03-2022 Subsequent hospital visit by physician [facility] Work Phone: Radiology Comment on above: Renal insufficiency [N28.9] Start: 11-25-2022 End: 11-25-[address] Sam Null Work Phone: [facility] [facility] Work Phone: Start: 11-17-2022 End: 11-17-2022 Patient encounter procedure Verito Older RESEARCH INSTRUMENTATION TECHNICIAN.LAST PATTERN GRADER Work Phone: [facility] [place] Comment on above: Wellness examination (Primary Dx); Weight gain; Uncomplicated asthma, unspecified asthma severity, unspecified whether persistent; Gastroesophageal reflux disease, unspecified whether esophagitis present; Irritable bowel syndrome with diarrhea; Obesity, Class III, BMI 40-49.9 (morbid obesity) ([facility]); VETO on CPAP; Encounter for immunization Start: 11-17-2022 End: 11-17-2022 Patient encounter status Verito Older RESEARCH INSTRUMENTATION TECHNICIAN.LAST PATTERN GRADER Work Phone: [facility] Work Phone: Start: 11-17-2022 End: 11-17-[address] Sam Null Work Phone: [facility]-Laboratory Work Phone: Start: 11-02-2022 Refill Sam jose MD Work Phone: [facility] [place] Comment on above: Refill Request Start: 10-08-2022 Refill Stephanie Vetovit z PA-C Work Phone: Orthopaedics Comment on above: Refill Request Start: 09-15-2022 ambulatory Sam jose MD Work Phone: [facility] [place] Start: 09-14-2022 Refill Stephanie Vetovit z PA-C Work Phone: Orthopaedics Comment on above: Refill Request Start: 06-02-2022 Telephone encounter Sam sykes MD Work Phone: [facility] [place] Comment on above: Orders Start: 04-19-2022 Telephone encounter Verito Older RESEARCH INSTRUMENTATION TECHNICIAN.LAST PATTERN GRADER Work Phone: [facility] Comment on above: Orders Start: 04-12-2022 End: 04-12-2022 ambulatory Verito Older RESEARCH INSTRUMENTATION TECHNICIAN.LAST PATTERN GRADER Work Phone: [facility] [place] Comment on above: Chronic pain of righ t knee (Primary Dx); Impaired mobility; Obesity, Class III, BMI 40-49.9 (morbid obesity) ([facility]); VETO on CPAP; Bile-induced gastritis; Gastroesophageal reflux disease, unspecified whether esophagitis present; Chronic renal impairment, stage 3a ([facility]) Start: 04-12-2022 End: 04-12-2022 Telemedicine consultation with patient Verito Older RESEARCH INSTRUMENTATION TECHNICIAN.LAST PATTERN GRADER Work Phone: [facility] Start: 02-09-2022 End: 02-09-[address] Sam Null Work Phone: [facility] Work Phone: Start: 02-09-2022 End: 02-09-[address] Sam Null Work Phone: [facility] Start: 02-05-2022 Telephone encounter Frank gooden MD Work Phone: Orthopaedics Comment on above: Patient Update Start: 02-03-[address] Philip Null Work Phone: [facility]-Physical Therapy Start: 01-29-2022 End: 01-29-[address] Sam Null Work Phone: [facility] Gastroenterology Start: 01-25-2022 End: 01-25-[address] Sam Null Work Phone: [facility]-Sleep Lab Start: 01-19-2022 End: 01-19-[address] Sam Null Work Phone: [facility]-Pulmonary Medicine [facility] Start: 2022 End: [address] Sam Null Work Phone: [facility] Start: 12-23-2021 Telephone encounter Frank gooden MD Work Phone: Orthopaedics Comment on above: Forms Start: 12-22-2021 Telephone encounter Sam sykes MD Work Phone: [facility] [place] Comment on above: Forms Start: 12-08-2021 Telephone encounter Frank gooden MD Work Phone: Orthopaedics Comment on above: Patient Update Start: 10-26-2021 End: 10-26-2021 Patient encounter procedure Frank Fletcher MD Work Phone: Orthopaedics Comment on above: Patellofemoral insta bility of right knee with pain (Primary Dx); Effusion of right knee Start: 10-23-2021 End: 10-23-[address] Sam Null Work Phone: [facility] Start: 10-16-2021 End: 10-16-[address] Sam Null Work Phone: [facility], located [facility] Start: 10-13-2021 Non-patient / Non-visit Dr. Kelly Null Work Phone: [facility] Start: 10-13-2021 End: 10-13-[address] Sam Null Work Phone: [facility]-Cardiovascular Services Start: 10-08-2021 End: 10-08-2021 Subsequent hospital visit by physician [facility] Work Phone: Radiology Comment on above: Effusion of right kn ee [M25.461] Start: 09-30-2021 End: 09-30-[address] Sam Null Work Phone: [facility]-Laboratory Start: 09-30-2021 End: 09-30-[address] Sam Null Work Phone: [facility] Gastroenterology Start: 09-23-2021 End: 09-23-[address] Sam Null Work Phone: [facility]-Laboratory Start: 09-23-2021 End: 09-23-[address] Sam Null Work Phone: [facility] Start: 09-09-2021 End: 09-09-2021 Emergency department patient visit Dr. Sam Null Work Phone: [facility]-Emergency Department Start: 09-09-2021 ambulatory Sam jose MD Work Phone: Internal Medicine [facility] Start: 08-31-2021 Orders Only Sam jose MD Work Phone: [facility] [place] Start: 08-26-2021 Orders Only Sam jose MD Work Phone: [facility] [place] Start: 04-12-2017 Ambulatory SAM NULL Facili ty:A Procedures Date Procedure Procedure Detail Performing Clinician Start: 10-17-2024 Adult depression screening assessment Britni Lockwood RESEARCH INSTRUMENTATION TECHNICIAN.LAST PATTERN GRADER Work Phone: Start: 09-21-[address] Sam Null MD Work Phone: Start: 07-26-2024 Lipid 1995 panel - Serum or Plasma Sam Null MD Work Phone: Start: 06-19-[address] Sam Null MD Work Phone: Start: 06-19-2024 X-ray of chest, PA and lateral views Dr. Sam Null MD Work Phone: Start: 11-04-2023 Lipid 1995 panel - Serum or Plasma Gunner Sutton RESEARCH INSTRUMENTATION TECHNICIAN.LAST PATTERN GRADER Work Phone: Start: 10-14-2023 Adult depression screening assessment [facility] Provider Start: 08-24-2023 Urnls dip stick/tablet rgnt auto w/o microscopy Carlos Mustafa MD Work Phone: Start: 07-21-2023 Esophagoscp rig transoral hypopharynx crv harrison Herzog MD Work Phone: Start: 07-05-2023 Giardia Antigen (POP) Dr. Sam sullivan Work Phone: Start: 07-05-2023 Ova OR parasites identification Dr. Sam Null Work Phone: Start: 06-27-[address] Sam Null Work Phone: Start: 04-13-[address] Sam Null Work Phone: Start: 04-07-2023 Plain chest X-ray Dr. Sam Null Work Phone: Start: 04-07-2023 Computed tomography of abdomen and pelvis with intravenous contrast Dr. Sam Null Work Phone: Start: 03-22-[address] Sam giron Work Phone: Start: 01-27-2023 Lipid 1996 panel - Serum or Plasma Frank Fletcher MD Work Phone: Start: 12-30-2022 Radionuclide gastric emptying study Dr. Sam Null Work Phone: Start: 12-03-2022 Us retroperitoneal real time w/image complete Verito Older RESEARCH INSTRUMENTATION TECHNICIAN.LAST PATTERN GRADER Work Phone: Start: 11-17-2022 INFLUENZA VACCINE, AGE 6 MO - 64 YR, QUADRIVALENT (AFLURIA, FLULAVAL, FLUZONE) Verito Older RESEARCH INSTRUMENTATION TECHNICIAN.LAST PATTERN GRADER Work Phone: Start: 02-09-2022 CT of thorax with contrast Dr. Sam Null Work Phone: Start: 10-23-2021 MRI of brain with contrast Dr. Sam Null Work Phone: Start: 10-16-2021 Computed tomography of abdomen and pelvis with contrast Dr. Sam Null Work Phone: Start: 10-08-2021 Radiologic exam knee complete 4/more views Sam Null MD Work Phone: Start: 04-08-2021 Adult depression screening assessment Sam Null MD Work Phone: Start: 07-17-2020 Colonoscopy Sam Null MD Work Phone: Start: 07-12-2020 History of cholecystectomy History of cholecystectomy Dr. Sam Null Work Phone: Start: 05-27-2020 Lipid 1996 panel - Serum or Plasma Stephanie George PA-C Work Phone: SARS-CoV-2 & FLU Ant igen (Rapid) Dr. Sam Null Work Phone: Plan of Treatment Date Care Activity Detail Author Start: 11-17-2032 Urine microalbumin profile [facility] Start: 07-26-2029 Lipid panel Lipid Screening [facility] Start: 11-03-2028 Lipid panel Lipid Screening [facility] Start: 01-28-2028 Lipid 1996 panel - Serum or Plasma Lipid Screening [facility] Start: 01-28-2028 Lipid panel Lipid Screening [facility] Start: 07-27-2027 Diabetes Screening Diabetes Screening [facility] Start: 01-19-2027 Diabetes Screening Diabetes Screening [facility] Start: 07-12-2026 Diabetes Screening Diabetes Screening [facility] Start: 11-25-2025 Diabetes Screening Diabetes Screening [facility] Start: 10-17-2025 Annual PCP Team Chronic Disease Visit Annual PCP Team Chronic Disease Visit [facility] Start: 10-17-2025 Anxiety Screening Anxiety Screening [facility] Start: 10-17-2025 Depression Screening Depression Screening [facility] Start: 07-26-2025 Annual PCP Team Chronic Disease Visit Annual PCP Team Chronic Disease Visit [facility] Start: 07-26-2025 Complete blood count Hemoglobin/Hematocrit [facility] Start: 07-26-2025 Creatinine measurement Serum Creatinine [facility] Start: 07-17-2025 Colonoscopy COLONOSCOPY [facility] Start: 07-17-2025 COLORECTAL CANCER SCREENING COLORECTAL CANCER SCREENING [facility] Start: 07-17-2025 Screening for malignant neoplasm of colon [facility] Start: 05-27-2025 Lipid 1996 panel - Serum or Plasma Lipid Screening [facility] Start: 05-27-2025 LIPID SCREEN LIPID SCREEN [facility] Start: 04-19-2025 End: 04-19-2025 Patient encounter procedure 04/19/2025 3:00 PM EST Office Visit [facility] [place] [address] [place], [place] [id number] Sam Null MD [address] [place] [address] 6 month f/u, third twinrix [facility] [place] Comment on above: 6 month f/u, third twinrix Start: 04-16-2025 Annual PCP Team Chronic Disease Visit Annual PCP Team Chronic Disease Visit [facility] Start: 04-16-2025 Covid-19 Vaccine ( season) Covid-19 Vaccine ( season) [facility] Comment on above: Postponed from 11/13/2023 (Declined at t his time) Start: 04-13-2025 Complete blood count Hemoglobin/Hematocrit [facility] Start: 04-13-2025 Creatinine measurement Serum Creatinine [facility] Start: 01-19-2025 Creatinine measurement Serum Creatinine [facility] Start: 01-07-2025 ambulatory Ambulatory Facility:[facility] Start: 12-18-2024 End: 12-18-2024 Patient encounter procedure 12/18/2024 2:20 PM EDT Office Visit Kidney Medicine [address] [place] [address] Lora Stone I, MD [address] [place] [address] New to CKD Kidney Medicine Comment on above: New to CKD Start: 11-16-2024 End: 11-16-2024 Nursing evaluation of patient and report [facility] [place] Comment on above: second twinrix ekg Start: 11-14-2024 Hepatitis A Vaccine (2 of 3 - Hep A Twinrix risk 3-dose series) Hepatitis A Vaccine (2 of 3 - Hep A Twinrix risk 3-dose series) [facility] Start: 11-14-2024 Hepatitis B Vaccine (2 of 3 - Hep B Twinrix risk 3-dose series) Hepatitis B Vaccine (2 of 3 - Hep B Twinrix risk 3-dose series) [facility] Start: 11-12-2024 [facility] Start: 11-09-2024 End: 11-09-2024 Patient encounter procedure 11/09/2024 2:00 PM EDT Office Visit OB/Gynecology [address] [place] [address] Nikole Garcias APRN.LAST PATTERN GRADER [address] [place] [address] Screening for cervical cancer [Z12.4] OB/Gynecology Comment on above: Screening for cervical cancer [Z12.4] Start: 10-29-2024 Evaluation of diagnostic study results [facility] Start: 10-15-2024 End: 10-15-2024 Patient encounter procedure 10/15/2024 4:40 PM EDT Office Visit [facility] [place] [address] [place] [address] Sam Null MD [address] [facility] [place] [address] Yearly w/6 month follow-up [facility] [place] Comment on above: Yearly w/6 month follow-up Start: 10-13-2024 Annual PCP Team Chronic Disease Visit Annual PCP Team Chronic Disease Visit [facility] Start: 10-13-2024 Anxiety Screening Anxiety Screening [facility] Start: 10-13-2024 Depression Screening Depression Screening [facility] Start: 10-11-2024 End: 10-11-2024 Patient encounter procedure 10/11/2024 2:30 PM EDT Office Visit [facility] [address] [place] [address] Joellen Crowder, CECELIA.LAST PATTERN GRADER [address] [place] [address] 16 wk f/u IN OFFICE [facility] Comment on above: 16 wk f/u IN OFFICE Start: 10-06-2024 Creatinine measurement Serum Creatinine [facility] Start: 09-19-2024 End: 09-19-2024 Patient encounter procedure Ophthalmology Comment on above: Cataract eval // Referring provider requ ests surgery performed with anesthesia due to pt's anxiety Start: 09-13-2024 End: 09-13-2024 Patient encounter procedure 09/13/2024 1:00 PM EDT Office Visit [facility] General Behavioral Medicine ([place]) [address] [place] [address] Pamela Lopez, PhD [address] [facility], [facility] [address] [place] [address] 60 Min. Follow up. In office Ok per [facility] General Behavioral Medicine ([place]) Comment on above: 60 Min. Follow up. In office Ok per Start: 09-11-2024 End: 09-11-2024 Patient encounter procedure 09/11/2024 2:30 PM EDT Office Visit [facility] [address] [place], [place] [id number] Joellen Crowder, RESEARCH INSTRUMENTATION TECHNICIAN.LAST PATTERN GRADER [address] [place] [address] 16 wk f/u IN OFFICE (needs moved up) [facility] Comment on above: 16 wk f/u IN OFFICE (needs moved up) Start: 09-06-2024 [facility] Start: 08-29-2024 End: 08-29-2024 Patient encounter procedure 08/29/2024 3:00 PM EDT Office Visit [facility] ([place]) [address] [place], [place] [id number] Pamela Lopez, PhD [address] [facility], [facility] [address] [place] [address] 60 Min. Follow up. In office [facility] Angel[place]) Comment on above: 60 Min. Follow up. In office Start: 08-21-2024 [facility] Start: 08-21-2024 End: 08-21-2024 Patient encounter procedure 08/21/2024 1:00 PM EDT Office Visit [facility] [address] [place] [address] MMPI Testing [facility] Comment on above: MMPI Testing Start: 08-17-2024 End: 08-17-2024 Patient encounter procedure 08/17/2024 2:00 PM EDT Office Visit Kidney Medicine [address] [place] [address] Britni Lockwood, RESEARCH INSTRUMENTATION TECHNICIAN.LAST PATTERN GRADER [address] [place] [address] Return in about 4 months (around 08/11/2024). Kidney Medicine Comment on above: Return in about 4 months (around 08/12/19). Start: 08-14-2024 End: 08-14-2024 Patient encounter procedure [facility] ([place]) Comment on above: Testing. Memory Testing. Start: 08-09-2024 End: 08-09-2024 Admission to same day surgery center 08/09/2024 2:00 PM EDT Education [facility] [address] [facility] [address] [place], [place] [id number] Burak Schrader, EILEEN [address] [facility], [facility] [address] [place], [place] [id number] Mo #6 - Caresource / 6 Mo / Danny / yang [facility] Comment on above: Mo #6 - Caresource / 6 Mo / Danny / gre en Start: 08-09-2024 End: 08-09-2024 Follow-up encounter 08/09/2024 8:00 AM EDT [facility] [address] [facility] [facility] [place] [address] Lisbet Steel PSYD [address] [place] [address] Follow Up [facility] Bariatric Department Comment on above: Follow Up Start: 08-03-2024 Echo tthrc r-t 2d w/wom-mode compl spec&colr d TTE W/DOPPLER COMPLETE [facility] Start: 08-02-2024 End: 08-02-2024 Patient encounter procedure 08/02/2024 1:00 PM EDT Office Visit [facility] [address] [place], [place] [id number] Marii Herzog MD [address] [facility] [address] [place], [place] [id number] Mo #5 - Follow Up Discuss SX Options - C[employer]ource / 6 Mo / Danny / yang [facility] Comment on above: Mo #5 - Follow Up Discuss SX Options - C aresource / 6 Mo / Danny payne Start: 07-23-2024 End: 07-23-2024 Patient encounter procedure 07/23/2024 7:20 PM EDT Office Visit [facility] [place] [id number] [place] [address] Sam Null MD [address] [place] [address] /discuss phone note from/ [facility] [place] Comment on above: /discuss phone note from/ Start: 07-19-2024 End: 07-19-2024 Patient encounter procedure [facility] Behavioral Medicine ([place]) Comment on above: Testing. Memory Testing. Start: 07-14-2024 Annual PCP Team Chronic Disease Visit Annual PCP Team Chronic Disease Visit [facility] Start: 07-12-2024 Complete blood count Hemoglobin/Hematocrit [facility] Start: 07-12-2024 Creatinine measurement Serum Creatinine [facility] Start: 07-10-2024 Measurement of respiratory function [facility] Start: 07-06-2024 End: 07-06-2024 Nursing evaluation of patient and report 07/06/2024 1:00 PM EDT Nurse Visit [facility] BARIATRIC DEPARTMENT 1 [place] [address] MMPI Testing - Have iPad read questions to patient per patient request [facility] Comment on above: MMPI Testing - Have iPad read questions to patient per patient request Start: 07-03-2024 End: 10-02-2024 25-hydroxyvitamin D3 [Mass/volume] in Serum or Plasma VITAMIN D 25 HYDROXY Lab Routine Class 2 obesity with body mass index (BMI) of 39.0 to 39.9 in adult, unspecified obesity type, unspecified whether serious comorbidity present Expected: 07/03/2024, Expires: 10/02/2024 [facility] Comment on above: Expected: 07/03/2024, Expires: Start: 07-03-2024 End: 10-02-2024 Cobalamin (Vitamin B12) [Mass/volume] in Serum or Plasma VITAMIN B12 Lab Routine Class 2 obesity with body mass index (BMI) of 39.0 to 39.9 in adult, unspecified obesity type, unspecified whether serious comorbidity present Expected: 07/03/2024, Expires: 10/02/2024 [facility] Comment on above: Expected: 07/03/2024, Expires: Start: 07-03-2024 End: 10-02-2024 Ferritin [Mass/volume] in Serum or Plasma FERRITIN Lab Routine Class 2 obesity with body mass index (BMI) of 39.0 to 39.9 in adult, unspecified obesity type, unspecified whether serious comorbidity present Expected: 07/03/2024, Expires: 10/02/2024 [facility] Work Phone: Comment on above: Expected: 07/03/2024, Expires: Start: 07-03-2024 End: 10-02-2024 Folate [Mass/volume] in Serum or Plasma FOLATE, SERUM Lab Routine Class 2 obesity with body mass index (BMI) of 39.0 to 39.9 in adult, unspecified obesity type, unspecified whether serious comorbidity present Expected: 07/03/2024, Expires: 10/02/2024 [facility] Comment on above: Expected: 07/03/2024, Expires: Start: 07-03-2024 End: 10-02-2024 Hemoglobin A1c in Blood HEMOGLOBIN A1C Lab Routine Class 2 obesity with body mass index (BMI) of 39.0 to 39.9 in adult, unspecified obesity type, unspecified whether serious comorbidity present Expected: 07/03/2024, Expires: 10/02/2024 [facility] Comment on above: Expected: 07/03/2024, Expires: Start: 07-03-2024 End: 10-02-2024 Hepatic function 2000 panel - Serum or Plasma HEPATIC FUNCTION PNL Lab Routine Class 2 obesity with body mass index (BMI) of 39.0 to 39.9 in adult, unspecified obesity type, unspecified whether serious comorbidity present Expected: 07/03/2024, Expires: 10/02/2024 [facility] Comment on above: Expected: 07/03/2024, Expires: Start: 07-03-2024 End: 10-02-2024 Iron and Iron binding capacity panel - Serum or Plasma IRON AND TIBC Lab Routine Class 2 obesity with body mass index (BMI) of 39.0 to 39.9 in adult, unspecified obesity type, unspecified whether serious comorbidity present Expected: 07/03/2024, Expires: 10/02/2024 [facility] Comment on above: Expected: 07/03/2024, Expires: Start: 07-03-2024 End: 10-02-2024 Lipid 1996 panel - Serum or Plasma LIPID PANEL, FASTING Lab Routine Class 2 obesity with body mass index (BMI) of 39.0 to 39.9 in adult, unspecified obesity type, unspecified whether serious comorbidity present Expected: 07/03/2024, Expires: 10/02/2024 [facility] Comment on above: Expected: 07/03/2024, Expires: Start: 07-03-2024 End: 10-02-2024 NICOTINE & METAB, UR NICOTINE & METAB, UR Lab Routine Class 2 obesity with body mass index (BMI) of 39.0 to 39.9 in adult, unspecified obesity type, unspecified whether serious comorbidity present Expected: 07/03/2024, Expires: 10/02/2024 [facility] Comment on above: Expected: 07/03/2024, Expires: Start: 07-03-2024 End: 10-02-2024 Parathyrin.intact [Mass/volume] in Serum or Plasma PTH INTACT Lab Routine Class 2 obesity with body mass index (BMI) of 39.0 to 39.9 in adult, unspecified obesity type, unspecified whether serious comorbidity present Expected: 07/03/2024, Expires: 10/02/2024 [facility] Comment on above: Expected: 07/03/2024, Expires: Start: 07-03-2024 End: 10-02-2024 Retinol [Mass/volume] in Serum or Plasma VITAMIN A/RETINOL Lab Routine Class 2 obesity with body mass index (BMI) of 39.0 to 39.9 in adult, unspecified obesity type, unspecified whether serious comorbidity present Expected: 07/03/2024, Expires: 10/02/2024 [facility] Comment on above: Expected: 07/03/2024, Expires: Start: 07-03-2024 End: 10-02-2024 Thyrotropin [Units/volume] in Serum or Plasma THYROID STIMULATING HORMONE Lab Routine Class 2 obesity with body mass index (BMI) of 39.0 to 39.9 in adult, unspecified obesity type, unspecified whether serious comorbidity present Expected: 07/03/2024, Expires: 10/02/2024 [facility] Comment on above: Expected: 07/03/2024, Expires: Start: 07-03-2024 End: 10-02-2024 TOXICOLOGY SCREEN, ROUTINE URINE TOXICOLOGY SCREEN, ROUTINE URINE Lab Routine Class 2 obesity with body mass index (BMI) of 39.0 to 39.9 in adult, unspecified obesity type, unspecified whether serious comorbidity present Expected: 07/03/2024, Expires: 10/02/2024 [facility] Comment on above: Expected: 07/03/2024, Expires: Start: 07-03-2024 End: 10-02-2024 VITAMIN B1 (THIAMINE), WHOLE BLOOD VITAMIN B1 (THIAMINE), WHOLE BLOOD Lab Routine Class 2 obesity with body mass index (BMI) of 39.0 to 39.9 in adult, unspecified obesity type, unspecified whether serious comorbidity present Expected: 07/03/2024, Expires: 10/02/2024 [facility] Comment on above: Expected: 07/03/2024, Expires: Start: 07-03-2024 End: 10-02-2024 Zinc [Mass/volume] in Serum or Plasma ZINC BLD Lab Routine Class 2 obesity with body mass index (BMI) of 39.0 to 39.9 in adult, unspecified obesity type, unspecified whether serious comorbidity present Expected: 07/03/2024, Expires: 10/02/2024 [facility] Comment on above: Expected: 07/03/2024, Expires: Start: 06-25-2024 End: 06-25-2024 Patient encounter procedure 06/25/2024 3:30 PM EDT Office Visit [facility]ATRIC DEPARTMENT 1 [place] [address] Sofía Multani, RESEARCH INSTRUMENTATION TECHNICIAN.LAST PATTERN GRADER 1 [place] [address] Mo #5 - Caresource / 6 Mo / Danny / yang [facility] Comment on above: Mo #5 - Caresource / 6 Mo / Danny / gre en Start: 06-20-2024 End: 06-20-2024 Patient encounter procedure 06/20/2024 2:00 PM EDT [facility] BARIATRIC DEPARTMENT 1 [place] [address] Joellen Crowder, RESEARCH INSTRUMENTATION TECHNICIAN.LAST PATTERN GRADER [address] [place] [address] new pt-no sx [facility] Comment on above: new pt-no sx Start: 06-05-2024 End: 06-05-2024 Patient encounter procedure 06/05/2024 3:30 PM EDT Office Visit [facility]RIC DEPARTMENT 1 [place] [address] Sofía Multani, RESEARCH INSTRUMENTATION TECHNICIAN.LAST PATTERN GRADER [address] [place] [address] Mo #5 - Caresource / 6 Mo / Danny / yang [facility] Comment on above: Mo #5 - Caresource / 6 Mo / Danny / gre en Start: 06-04-2024 End: 06-04-2024 Patient encounter procedure 06/04/2024 2:00 PM EDT Office Visit OB/Gynecology [address] [place] [address] Jaycee Cuellar, RESEARCH INSTRUMENTATION TECHNICIAN.LAST PATTERN GRADER [address] [place] [address] Screening for cervical cancer [Z12.4] OB/Gynecology Comment on above: Screening for cervical cancer [Z12.4] Start: 06-01-2024 End: 06-01-2024 Patient encounter procedure 06/01/2024 2:00 PM EDT Office Visit [facility] 1 [place] [address] Lisbet Steel PSYD [address] [place], [place] [id number] 1mo f/u [facility] Comment on above: 1mo f/u Start: 05-17-2024 End: 08-16-2024 25-hydroxyvitamin D3 [Mass/volume] in Serum or Plasma VITAMIN D 25 HYDROXY Lab Routine Stage 3a chronic kidney disease (HCC) Vitamin D deficiency Expected: 05/17/2024 (Approximate), Expires: 08/16/2024 [facility] Comment on above: Expected: 05/17/2024 (Approximate), Expi res: 08/16/2024 Start: 05-17-2024 End: 08-16-2024 CBC panel - Blood by Automated count COMPLETE BLOOD COUNT Lab Routine Stage 3a chronic kidney disease (HCC) Vitamin D deficiency Expected: 05/17/2024 (Approximate), Expires: 08/16/2024 [facility] Comment on above: Expected: 05/17/2024 (Approximate), Expi res: 08/16/2024 Start: 05-17-2024 End: 08-16-2024 Renal function 2000 panel - Serum or Plasma RENAL FUNCTION PANEL Lab Routine Stage 3a chronic kidney disease (HCC) Vitamin D deficiency Expected: 05/17/2024 (Approximate), Expires: 08/16/2024 [facility] Work Phone: Comment on above: Expected: 05/17/2024 (Approximate), Expi res: 08/16/2024 Start: 05-11-2024 End: 05-11-2024 Patient encounter procedure 05/11/2024 10:00 AM EST Office Visit [facility] [address] [place] [address] Lisbet Steel PSYD [address] [place], [place] [phone] f/u-in office [facility] Comment on above: f/u-in office Start: 05-07-2024 End: 05-07-2024 Patient encounter procedure 05/07/2024 3:30 PM EST [facility] BARIATRIC DEPARTMENT 1 [place] [address] Burak Schrader, EILEEN 1 [facility], [address] [address] Mo #5 - Caresource / 6 Mo / Danny / green [facility] DEPARTMENT Comment on above: Mo #5 - Caresource / 6 Mo / Danny / gre en Start: 05-01-2024 End: 05-01-2024 Patient encounter procedure 05/01/2024 2:30 PM EST Office Visit Vasculary Surgery [address] [place], [place] [phone] Onychodystrophy [L60.3]; Diminished pulses in lower extremity [R09.89] [facility] Comment on above: Onychodystrophy [L60.3]; Diminished puls es in lower extremity [R09.89] Start: 04-20-2024 End: 04-20-2024 Patient encounter procedure 04/20/2024 10:00 AM EST Office Visit [facility] 1 [place] [address] Lisbet Steel PSYD [address] [place], [place] [phone] f/u-in office [facility] Comment on above: f/u-in office Start: 04-16-2024 End: 04-16-2024 Patient encounter procedure 04/16/2024 1:00 PM EST Office Visit [facility] [address] [place] [address] Sam Null MD [address] [place], [place] [phone] 6 month follow up [facility] Comment on above: 6 month follow up Start: 04-13-2024 End: 04-13-2024 Patient encounter procedure 04/13/2024 1:00 PM EST Office Visit [facility] 1 [place] [address] Lisbet Steel PSYD [address] [place] [address] New Patient - Bariatric Program [facility] Comment on above: New Patient - Bariatric Program Start: 04-06-2024 End: 04-06-2024 Patient encounter procedure Kidney [facility] Comment on above: ckd Start: 04-04-2024 End: 04-04-2024 Patient encounter procedure 04/04/2024 3:30 PM EST Office Visit [facility] [address] [place], [place] [address] Onychodystrophy [L60.3]; Diminished pulses in lower extremity [R09.89] [facility] Comment on above: Onychodystrophy [L60.3]; Diminished puls es in lower extremity [R09.89] Start: 04-02-2024 End: 04-02-2024 Patient encounter procedure 04/02/2024 3:00 PM EST Distance [facility] BARIATRIC DEPARTMENT 1 [place] [address] Burak Schrader, EILEEN [address] [address] Mo #5 - Caresource / 6 Mo / Danny / yang [facility] DEPARTMENT Comment on above: Mo #5 - Caresource / 6 Mo / Danny / rani en Start: 03-26-2024 End: 03-26-2024 Patient encounter procedure 03/26/2024 3:00 PM EST [facility] BARIATRIC 1 [place], [place] [phone] Lisbet Steel PSYD [address] [place] [address] New Patient - Bariatric Program [facility] Comment on above: New Patient - Bariatric Program Start: 01-08-2025 Annual PCP Team Chronic Disease Visit Annual PCP Team Chronic Disease Visit [facility] Start: 03-21-2024 Screening for malignant neoplasm of cervix [facility] Comment on above: Postponed from 01/12/1994 (Declined at t his time) Postponed from 09/22 (Declined at this time) Postponed from 09/22 (Declined at this time) Start: 03-20-2024 DIABETES SCREEN DIABETES SCREEN [facility] Start: 03-08-2024 End: 03-08-2024 Patient encounter procedure 03/08/2024 3:30 PM EST [facility] BARIATRIC DEPARTMENT 1 [place], [place] [id number] Gunner Sutton APRN.LAST PATTERN GRADER 1 [place], [place] [phone] Mo #5 - Caresource / 6 Mo / Danny / yang [facility] DEPARTMENT Comment on above: Mo #5 - Caresource / 6 Mo / Danny / gre en Start: 03-02-2024 End: 03-02-2024 Patient encounter procedure 03/02/2024 3:00 PM EST Education [facility] BARIATRIC DEPARTMENT 1 [place] [address] [address] Mo #5 - Caresource / 6 Mo / Danny / yang [facility] DEPARTMENT Comment on above: Mo #5 - Caresource / 6 Mo / Danny / gre en Start: 03-01-2024 End: 03-01-2024 Patient encounter procedure Radiology Comment on above: Establish Diabetic Foot Care - Thick Toe Nails, One Off, Others Growing Sideways Into Toes Next To Them Start: 02-27-2024 End: 02-27-2024 Patient encounter procedure 02/27/2024 11:40 AM EST Office Visit [facility] [address] [place], [place] [phone] Rosalba Rothman MD [address] [place] [address] 6 MONTH FOLLOW UP [facility] Comment on above: 6 MONTH FOLLOW UP Start: 02-07-2024 End: 02-07-2024 Patient encounter procedure 02/07/2024 3:30 PM EST Education [facility] BARIATRIC DEPARTMENT 1 [place] [address] [place], [place] [phone] NEW - Mo #5 - Caresource / 6 Mo / Danny / green [facility] DEPARTMENT Comment on above: NEW - Mo #5 - Caresource / 6 Mo / Danny / green Start: 02-01-2024 End: 02-01-2024 Patient encounter procedure [facility] Comment on above: NEW - Mo #5 - Caresource / 6 Mo / Danny / green Mo #5 - Caresource / 6 Mo / Danny / green Start: 01-28-2024 Creatinine measurement Serum Creatinine [facility] Start: 01-28-2024 Serum Creatinine Serum Creatinine [facility] Start: 01-24-2024 End: 01-24-2024 Patient encounter procedure 01/24/2024 3:00 PM EST Office Visit Podiatry [address] [place] [address] Geri Fabian [address] [place], [place] [phone] diabetic nail concern Podiatry Comment on above: diabetic nail concern Start: 01-23-2024 End: 01-23-2024 Patient encounter procedure [facility] Comment on above: New Patient - Bariatric Program New Patient - Bariat sarahi Program/confimation call-lm(mo) Start: 01-20-2024 End: 01-20-2024 Patient encounter procedure 01/20/2024 2:00 PM EST Office Visit [facility] [address] [place] [address] Britni Lockwood, RESEARCH INSTRUMENTATION TECHNICIAN.LAST PATTERN GRADER [address] [place] [address] 6 MONTH FOLLOW UP [facility] Comment on above: 6 MONTH FOLLOW UP Start: 2024 Hepatitis B Vaccine (1 of 3 - Risk 3-dose series) Hepatitis B Vaccine (1 of 3 - Risk 3-dose series) [facility] Start: 2024 RSV Vaccine (1 - Risk 60-74 years 1-dose series) RSV Vaccine (1 - Risk 60-74 years 1-dose series) [facility] Start: 01-05-2024 End: 01-05-2024 Patient encounter procedure 01/05/2024 3:00 PM EDT Education [facility] BARIATRIC DEPARTMENT 1 [place] [address] Burak Schrader, EILEEN [address] [address] NEW - Mo #4 - Caresource / 6 Mo / Danny / yang [facility] DEPARTMENT Comment on above: NEW - Mo #4 - Caresource / 6 Mo / Danny / yang Start: 01-02-2024 End: 04-02-2024 Parathyrin.intact [Mass/volume] in Serum or Plasma PTH INTACT Lab Routine Vitamin D deficiency Expected: 01/02/2024, Expires: 04/02/2024 [facility] Work Phone: Comment on above: Expected: 01/02/2024, Expires: Start: 12-26-2023 End: 12-26-2023 Patient encounter procedure 12/26/2023 2:00 PM EDT Office Visit [facility] [address] [place], [place] [phone] Rosalba Rothman MD [address] [place] [address] 6 MONTH FOLLOW UP [facility] Comment on above: 6 MONTH FOLLOW UP Start: 12-13-2023 Hzv zoster vacc recombinant adjuvanted im njx ZOSTER VACCINE, RECOMBINANT (SHINGRIX) Immunization/Injection Routine Need for vaccination Expected: 12/13/2023 (Approximate) [facility] Work Phone: Comment on above: Expected: 12/13/2023 (Approximate) Start: 12-13-2023 End: 12-13-2023 Orders Only [facility] Comment on above: Need for vaccination NEW - Caresource / 6 Mo / Danny / green/ confirmation call- lm (mo) Start: 12-12-2023 End: 12-12-2023 Patient encounter procedure 12/12/2023 3:00 PM EDT [facility] BARIATRIC DEPARTMENT 1 [place], [place] [id number] Gunner Sutton APRN.LAST PATTERN GRADER 1 [place], [place] [phone] NEW - Mo #3 - Caresource / 6 Mo / Danny / green [facility] DEPARTMENT Comment on above: NEW - Mo #3 - Caresource / 6 Mo / Danny / green Start: 12-09-2023 Shingrix Vaccine (2 of 2) Shingrix Vaccine (2 of 2) [facility] Start: 12-09-2023 End: 12-09-2023 Patient encounter procedure [facility] Comment on above: NEW - Caresource / 6 Mo / Danny / green NEW - Caresource / 6 Mo / Danny / green/ confirmation call- lm (mo) Start: 11-26-2023 Serum Creatinine Serum Creatinine [facility] Start: 11-24-2023 End: 11-24-2023 Patient encounter procedure 11/24/2023 1:00 PM EDT Office Visit [facility] [address] [place] [phone] Sam Null MD [address] [place] [address] Annual exam [facility] Comment on above: Annual exam Start: 11-23-2023 End: 11-23-2023 Patient encounter procedure [facility] BAR[facility] DEPART[facility] Comment on above: NEW - Mo #2 - Caresource / 6 Mo / Danny / green NEW - Mo #3 - Careso urce / 6 Mo / Danny / green Start: 11-21-2023 End: 02-20-2024 25-hydroxyvitamin D3 [Mass/volume] in Serum or Plasma VITAMIN D 25 HYDROXY Lab Routine Vitamin D deficiency Expected: 11/21/2023, Expires: 02/20/2024 [facility] Work Phone: Comment on above: Expected: 11/21/2023, Expires: 4 Start: 11-21-2023 End: 02-20-2024 Folate [Mass/volume] in Serum or Plasma FOLATE, SERUM Lab Routine Folate deficiency Expected: 11/21/2023, Expires: 02/20/2024 [facility] Comment on above: Expected: 11/21/2023, Expires: 4 Start: 11-21-2023 End: 02-20-2024 Parathyrin.intact [Mass/volume] in Serum or Plasma PTH INTACT Lab Routine Vitamin D deficiency Expected: 11/21/2023, Expires: 02/20/2024 [facility] Comment on above: Expected: 11/21/2023, Expires: 4 Start: 11-18-2023 ANNUAL PCP TEAM CHRONIC DISEASE VISIT ANNUAL PCP TEAM CHRONIC DISEASE VISIT [facility] Start: 11-18-2023 COVID-19 VACCINE (#1) COVID-19 VACCINE (#1) [facility] Comment on above: Postponed from 1964 (Declined at t his time) Start: 11-18-2023 Covid-19 Vaccine ( season) Covid-19 Vaccine () [facility] Comment on above: Postponed from 11/12/2022 (Declined at t his time) Start: 11-18-2023 Hemoglobin/Hematocrit Hemoglobin/Hematocrit [facility] Start: 11-18-2023 HEPATITIS B (1 of 3 - 3-dose series) HEPATITIS B (1 of 3 - 3-dose series) [facility] Comment on above: Postponed from 1964 (Declined at t his time) Start: 11-18-2023 Hepatitis B Vaccine (1 of 3 - 3-dose series) Hepatitis B Vaccine (1 of 3 - 3-dose series) [facility] Comment on above: Postponed from 1964 (Declined at t his time) Start: 11-16-2023 End: 11-16-2023 Patient encounter procedure 11/16/2023 3:00 PM EDT Education [facility] BARIATRIC DEPARTMENT 1 [place], [place] [phone] Bur[address] 1 [facility], [address] [place] [address] Mo #3 - Caresource / 6 Mo / Danny / yang [facility]IC DEPARTMENT Comment on above: Mo #3 - Caresource / 6 Mo / Danny / rani salgado Start: 11-13-2023 Covid-19 Vaccine ( season) Covid-19 Vaccine ( season) [facility] Start: 11-13-2023 Covid-19 Vaccine ( season) Covid-19 Vaccine ( season) [facility] Start: 11-13-2023 Influenza [facility] Start: 10-14-2023 End: 10-14-2023 Patient encounter procedure 10/14/2023 1:20 PM EDT Office Visit [facility] [address] [place] [address] Sam Null MD [address] [place] [address] 3 month follow up [facility] Comment on above: 3 month follow up Start: 10-13-2023 End: 01-12-2024 Renal function 2000 panel - Serum or Plasma RENAL FUNCTION PANEL Lab Routine Stage 3a chronic kidney disease (HCC) Expected: 10/13/2023 (Approximate), Expires: 01/12/2024 [facility] Work Phone: Comment on above: Expected: 10/13/2023 (Approximate), Expi res: 01/12/2024 Start: 10-13-2023 End: 10-13-2023 Patient encounter procedure Kidney Medicine Comment on above: 6 month f/u SNA 1:1 Start: 09-20-2023 End: 12-20-2023 25-hydroxyvitamin D3 [Mass/volume] in Serum or Plasma VITAMIN D 25 HYDROXY Lab Routine Class 3 severe obesity due to excess calories with serious comorbidity and body mass index (BMI) of 45.0 to 49.9 in adult ([facility]) Expected: 09/20/2023, Expires: 12/20/2023 [facility] Comment on above: Expected: 09/20/2023, Expires: Start: 09-20-2023 End: 12-20-2023 Cobalamin (Vitamin B12) [Mass/volume] in Serum or Plasma VITAMIN B12 Lab Routine Class 3 severe obesity due to excess calories with serious comorbidity and body mass index (BMI) of 45.0 to 49.9 in adult ([facility]) Expected: 09/20/2023, Expires: 12/20/2023 [facility] Comment on above: Expected: 09/20/2023, Expires: Start: 09-20-2023 End: 12-20-2023 Ferritin [Mass/volume] in Serum or Plasma FERRITIN Lab Routine Class 3 severe obesity due to excess calories with serious comorbidity and body mass index (BMI) of 45.0 to 49.9 in adult ([facility]) Expected: 09/20/2023, Expires: 12/20/2023 [facility] Comment on above: Expected: 09/20/2023, Expires: Start: 09-20-2023 End: 12-20-2023 Folate [Mass/volume] in Serum or Plasma FOLATE, SERUM Lab Routine Class 3 severe obesity due to excess calories with serious comorbidity and body mass index (BMI) of 45.0 to 49.9 in adult ([facility]) Expected: 09/20/2023, Expires: 12/20/2023 [facility] Comment on above: Expected: 09/20/2023, Expires: Start: 09-20-2023 End: 12-20-2023 Iron and Iron binding capacity panel - Serum or Plasma IRON AND TIBC Lab Routine Class 3 severe obesity due to excess calories with serious comorbidity and body mass index (BMI) of 45.0 to 49.9 in adult ([facility]) Expected: 09/20/2023, Expires: 12/20/2023 [facility] Comment on above: Expected: 09/20/2023, Expires: Start: 09-20-2023 End: 12-20-2023 Lipid 1996 panel - Serum or Plasma LIPID PANEL BASIC Lab Routine Class 3 severe obesity due to excess calories with serious comorbidity and body mass index (BMI) of 45.0 to 49.9 in adult ([facility]) Expected: 09/20/2023, Expires: 12/20/2023 [facility] Comment on above: Expected: 09/20/2023, Expires: Start: 09-20-2023 End: 12-20-2023 NICOTINE & METAB, UR NICOTINE & METAB, UR Lab Routine Class 3 severe obesity due to excess calories with serious comorbidity and body mass index (BMI) of 45.0 to 49.9 in adult ([facility]) Expected: 09/20/2023, Expires: 12/20/2023 [facility] Comment on above: Expected: 09/20/2023, Expires: Start: 09-20-2023 End: 12-20-2023 Parathyrin.intact [Mass/volume] in Serum or Plasma PTH INTACT Lab Routine Class 3 severe obesity due to excess calories with serious comorbidity and body mass index (BMI) of 45.0 to 49.9 in adult ([facility]) Expected: 09/20/2023, Expires: 12/20/2023 [facility] Comment on above: Expected: 09/20/2023, Expires: Start: 09-20-2023 End: 12-20-2023 Retinol [Mass/volume] in Serum or Plasma VITAMIN A/RETINOL Lab Routine Class 3 severe obesity due to excess calories with serious comorbidity and body mass index (BMI) of 45.0 to 49.9 in adult ([facility]) Expected: 09/20/2023, Expires: 12/20/2023 [facility] Comment on above: Expected: 09/20/2023, Expires: Start: 09-20-2023 End: 12-20-2023 Thyrotropin [Units/volume] in Serum or Plasma THYROID STIMULATING HORMONE Lab Routine Class 3 severe obesity due to excess calories with serious comorbidity and body mass index (BMI) of 45.0 to 49.9 in adult ([facility]) Expected: 09/20/2023, Expires: 12/20/2023 [facility] Comment on above: Expected: 09/20/2023, Expires: Start: 09-20-2023 End: 12-20-2023 TOXICOLOGY SCREEN, ROUTINE URINE TOXICOLOGY SCREEN, ROUTINE URINE Lab Routine Class 3 severe obesity due to excess calories with serious comorbidity and body mass index (BMI) of 45.0 to 49.9 in adult ([facility]) Expected: 09/20/2023, Expires: 12/20/2023 [facility] Comment on above: Expected: 09/20/2023, Expires: Start: 09-20-2023 End: 12-20-2023 VITAMIN B1 (THIAMINE), WHOLE BLOOD VITAMIN B1 (THIAMINE), WHOLE BLOOD Lab Routine Class 3 severe obesity due to excess calories with serious comorbidity and body mass index (BMI) of 45.0 to 49.9 in adult ([facility]) Expected: 09/20/2023, Expires: 12/20/2023 [facility] Comment on above: Expected: 09/20/2023, Expires: Start: 09-20-2023 End: 12-20-2023 Zinc [Mass/volume] in Serum or Plasma ZINC BLD Lab Routine Class 3 severe obesity due to excess calories with serious comorbidity and body mass index (BMI) of 45.0 to 49.9 in adult ([facility]) Expected: 09/20/2023, Expires: 12/20/2023 [facility] Work Phone: Comment on above: Expected: 09/20/2023, Expires: Start: 09-20-2023 End: 09-20-2023 Patient encounter procedure 09/20/2023 11:00 AM EDT Office Visit [facility] [address] [place] [address] KevGunner APRN.LAST PATTERN GRADER [address] [place] [address] Mo #1 - [employer] / 6 Mo / Danny / yang [facility] Comment on above: Mo #1 - [employer] / 6 Mo / Danny / rani salgado Start: 09-08-2023 End: 09-08-2023 Patient encounter procedure 09/08/2023 10:00 AM EDT Office Visit [facility] 1 [place], [place] [phone] Marii Herzog MD [address] [facility] [address] [place], [place] [id number] HBC-Follow up on EGD w/kirk and manometry [facility] Comment on above: HBC-Follow up on EGD w/kirk and manomet ry Start: 08-24-2023 End: 11-23-2023 Urinalysis complete panel - Urine URINALYSIS, WITH MICROSCOPIC Lab Routine Stage 3a chronic kidney disease (HCC) Expected: 08/24/2023, Expires: 11/23/2023 [facility] Comment on above: Expected: 08/24/2023, Expires: Start: 08-24-2023 End: 08-24-2023 Patient encounter procedure 08/24/2023 11:40 AM EDT Office Visit [facility] [address] [place] [address] Carlos Mustafa MD [address] [place] [address] 6 month f/u [facility] Comment on above: 6 month f/u Start: 08-18-2023 End: 08-18-2023 Patient encounter procedure 08/18/2023 11:40 AM EDT Office Visit [facility] [address] [place] [address] Carlos Mustafa MD [address] [place] [address] 6 month f/u [facility] Comment on above: 6 month f/u Start: 08-11-2023 End: 08-11-2023 Patient encounter procedure 08/11/2023 11:00 AM EDT Office Visit [facility] [address] [facility] [place] [phone] Marii Herzog MD [address] [facility] [address] [place], [place] [phone] Follow up on EGD w/kirk and manometry [facility] Comment on above: Follow up on EGD w/kirk and manometry Start: 07-21-2023 End: 07-21-2023 Patient encounter procedure 07/21/2023 1:00 PM EDT Appointment [facility] [address] [place] [address] Marii Herzog MD [address] [facility] [address] [place], [place] [phone] [facility] Start: 07-21-2023 End: 07-21-2023 Admission to same day surgery center 07/21/2023 12:00 PM EDT - 07/21/2023 1:00 PM EDT Surgery [facility] [address] [place] [address] Marii Herzog MD [address] [facility] [address] [place], [place] [phone] ESOPHAGEAL MANOMETRY [facility] Comment on above: ESOPHAGEAL MANOMETRY Start: 07-21-2023 End: 07-21-2023 Esophageal motility study w/interp&rpt ESOPHAGEAL MANOMETRY Esophageal dysphagia 07/21/2023 12:00 PM EDT [facility] Start: 07-21-2023 Subsequent hospital visit by physician 07/21/2023 12:00 PM EDT Hospital Encounter [facility] [address] [place] [address] Marii Herzog MD [address] [facility] [address] [place], [place] [phone] Esophageal dysphagia [R13.19] [facility] Comment on above: Esophageal dysphagia [R13.19] Start: 07-15-2023 End: 07-15-2023 Patient encounter procedure 07/15/2023 1:20 PM EDT Office Visit [facility] [address] [facility] [place] [address] Verito Mclean, RESEARCH INSTRUMENTATION TECHNICIAN.LAST PATTERN GRADER [address] [facility] [phone] See phone encounter, fatigue, thirst, questions DM [facility] Comment on above: See phone encounter, fatigue, thirst, qu estions DM Start: 07-12-2023 End: 10-11-2023 Hemoglobin A1c in Blood HEMOGLOBIN A1C Lab Routine Hyperglycemia Expected: 07/12/2023, Expires: 10/11/2023 [facility] Work Phone: Comment on above: Expected: 07/12/2023, Expires: Start: 06-09-2023 End: 09-08-2023 ALBUMIN/CREAT RATIO RND UR ALBUMIN/CREAT RATIO RND UR Lab Routine Stage 3a chronic kidney disease (HCC) Expected: 06/09/2023 (Approximate), Expires: 09/08/2023 [facility] Work Phone: Comment on above: Expected: 06/09/2023 (Approximate), Expi res: 09/08/2023 Start: 06-09-2023 End: 09-08-2023 Protein/Creatinine [Mass Ratio] in Urine PROTEIN CREATININE RATIO Lab Routine Stage 3a chronic kidney disease (HCC) Expected: 06/09/2023 (Approximate), Expires: 09/08/2023 [facility] Work Phone: Comment on above: Expected: 06/09/2023 (Approximate), Expi res: 09/08/2023 Start: 06-09-2023 End: 09-08-2023 Renal function 2000 panel - Serum or Plasma RENAL FUNCTION PANEL Lab Routine Stage 3a chronic kidney disease (HCC) Expected: 06/09/2023 (Approximate), Expires: 09/08/2023 [facility] Work Phone: Comment on above: Expected: 06/09/2023 (Approximate), Expi res: 09/08/2023 Start: 06-09-2023 End: 09-08-2023 Urinalysis complete panel - Urine URINALYSIS, WITH MICROSCOPIC Lab Routine Stage 3a chronic kidney disease (HCC) Expected: 06/09/2023 (Approximate), Expires: 09/08/2023 [facility] Work Phone: Comment on above: Expected: 06/09/2023 (Approximate), Expi res: 09/08/2023 Start: 05-13-2023 End: 08-12-2023 CBC panel - Blood by Automated count CBC Lab Routine Stage 3a chronic kidney disease (HCC) Expected: 05/13/2023, Expires: 08/12/2023 [facility] Work Phone: Comment on above: Expected: 05/13/2023, Expires: Start: 05-13-2023 End: 08-12-2023 Renal function 2000 panel - Serum or Plasma RENAL FUNCTION PANEL Lab Routine Stage 3a chronic kidney disease (HCC) Expected: 05/13/2023, Expires: 08/12/2023 [facility] Work Phone: Comment on above: Expected: 05/13/2023, Expires: Start: 04-28-2023 End: 07-28-2023 ALBUMIN/CREAT RATIO RND UR ALBUMIN/CREAT RATIO RND UR Lab Routine Stage 3a chronic kidney disease (HCC) Expected: 04/28/2023 (Approximate), Expires: 07/28/2023 [facility] Work Phone: Comment on above: Expected: 04/28/2023 (Approximate), Expi res: 07/28/2023 Start: 04-28-2023 End: 07-28-2023 Protein/Creatinine [Mass Ratio] in Urine PROTEIN CREATININE RATIO Lab Routine Stage 3a chronic kidney disease (HCC) Expected: 04/28/2023 (Approximate), Expires: 07/28/2023 [facility] Work Phone: Comment on above: Expected: 04/28/2023 (Approximate), Expi res: 07/28/2023 Start: 04-28-2023 End: 07-28-2023 Renal function 2000 panel - Serum or Plasma RENAL FUNCTION PANEL Lab Routine Stage 3a chronic kidney disease (HCC) Expected: 04/28/2023 (Approximate), Expires: 07/28/2023 [facility] Work Phone: Comment on above: Expected: 04/28/2023 (Approximate), Expi res: 07/28/2023 Start: 04-28-2023 End: 07-28-2023 Urinalysis complete panel - Urine URINALYSIS, WITH MICROSCOPIC Lab Routine Stage 3a chronic kidney disease (HCC) Expected: 04/28/2023 (Approximate), Expires: 07/28/2023 [facility] Work Phone: Comment on above: Expected: 04/28/2023 (Approximate), Expi res: 07/28/2023 Start: 04-12-2023 ANNUAL PCP TEAM CHRONIC DISEASE VISIT ANNUAL PCP TEAM CHRONIC DISEASE VISIT [facility] Start: 04-12-2023 SHINGRIX VACCINE (1 of 2) SHINGRIX VACCINE (1 of 2) [facility] Comment on above: Postponed from 01/12/2014 (Declined at t his time) Start: 04-07-2023 [facility] Start: 04-07-2023 [facility] Start: 03-14-2023 Behavioral Health Screening Behavioral Health Screening [facility] Start: 03-14-2023 Depression Assessment Depression Assessment [facility] Start: 01-27-2023 End: 04-28-2023 ALBUMIN/CREAT RATIO RND UR [facility] Work Phone: Comment on above: Expected: 01/27/2023, Expires: Start: 01-27-2023 End: 04-28-2023 Lipid 1996 panel - Serum or Plasma [facility] Work Phone: Comment on above: Expected: 01/27/2023, Expires: Start: 01-27-2023 End: 04-28-2023 Protein/Creatinine [Mass Ratio] in Urine [facility] Work Phone: Comment on above: Expected: 01/27/2023, Expires: 4 Start: 01-27-2023 End: 04-28-2023 Renal function 2000 panel - Serum or Plasma [facility] Work Phone: Comment on above: Expected: 01/27/2023, Expires: 4 Start: 01-27-2023 End: 04-28-2023 Urinalysis complete panel - Urine [facility] Work Phone: Comment on above: Expected: 01/27/2023, Expires: 4 Start: 11-25-2022 Patient referral [facility] Work Phone: Start: 11-17-2022 End: 01-17-2023 Comprehensive metabolic 2000 panel - Serum or Plasma [facility] Work Phone: Comment on above: Expected: 11/17/2022, Expires: 3 Start: 11-17-2022 End: 01-17-2023 Hemoglobin A1c in Blood [facility] Work Phone: Comment on above: Expected: 11/17/2022, Expires: 3 Start: 11-17-2022 End: 01-17-2023 Thyrotropin [Units/volume] in Serum or Plasma TSH BLD Lab Routine Weight gain Expected: 11/17/2022, Expires: 01/17/2023 [facility] Work Phone: Comment on above: Expected: 11/17/2022, Expires: 3 Start: 11-12-2022 Influenza vaccination INFLUENZA (#1) [facility] Start: 10-08-2022 ANNUAL PCP TEAM CHRONIC DISEASE VISIT ANNUAL PCP TEAM CHRONIC DISEASE VISIT [facility] Start: 04-12-2022 End: 06-12-2022 CBC panel - Blood by Automated count CBC Lab Routine Obesity, Class III, BMI 40-49.9 (morbid obesity) (HCC) Chronic renal impairment, stage 3a (HCC) Expected: 04/12/2022, Expires: 06/12/2022 [facility] Work Phone: Comment on above: Expected: 04/12/2022, Expires: 3 Start: 04-12-2022 End: 06-12-2022 Comprehensive metabolic 2000 panel - Serum or Plasma COMP METABOLIC PANEL Lab Routine Obesity, Class III, BMI 40-49.9 (morbid obesity) (HCC) Chronic renal impairment, stage 3a (HCC) Expected: 04/12/2022, Expires: 06/12/2022 [facility] Work Phone: Comment on above: Expected: 04/12/2022, Expires: 3 Start: 04-08-2022 Adult depression screening assessment DEPRESSION SCREENING [facility] Start: 04-08-2022 ANNUAL PCP TEAM CHRONIC DISEASE VISIT ANNUAL PCP TEAM CHRONIC DISEASE VISIT [facility] Start: 04-08-2022 COVID-19 VACCINE (#1) COVID-19 VACCINE (#1) [facility] Comment on above: Postponed from 01/12/1969 (Declined at t his time) Postponed from 07/12 (Declined at this time) Start: 03-20-2022 HEMOGLOBIN/HEMATOCRIT HEMOGLOBIN/HEMATOCRIT [facility] Start: 03-20-2022 SERUM CREATININE SERUM CREATININE [facility] Start: 03-14-2022 DEPRESSION ASSESSMENT DEPRESSION ASSESSMENT [facility] Start: 11-12-2021 Influenza vaccination [facility] Start: 10-13-2021 Echo tthrc r-t 2d w/wom-mode compl spec&colr d TTE W/DOPPLER COMPLETE [facility] Work Phone: Start: 09-09-2021 [facility] Work Phone: Start: 03-14-2021 DEPRESSION ASSESSMENT DEPRESSION ASSESSMENT [facility] Start: 01-12-2014 SHINGRIX VACCINE (1 of 2) SHINGRIX VACCINE (1 of 2) [facility] Start: 09-22-2009 PAP TESTING PAP TESTING [facility] Start: 09-22-2009 Screening for malignant neoplasm of cervix Pap Testing [facility] Start: 01-12-2009 COLOGUARD (FIT-DNA) COLOGUARD (FIT-DNA) [facility] Start: 01-12-[address] COLONOGRAPHY [facility] Start: 01-12-2009 FECAL OCCULT BLOOD FECAL OCCULT BLOOD [facility] Start: 01-12-2009 Screening for malignant neoplasm of colon [facility] Start: 01-12-2009 SIGMOIDOSCOPY SIGMOIDOSCOPY [facility] Start: 09-23-2007 Screening for malignant neoplasm of cervix Cervical Cancer Screening [facility] Start: 2004 Mammography [facility] Start: 2004 Screening for malignant neoplasm of breast Mammogram Screening [facility] Start: 01-12-1994 HPV TESTING HPV TESTING [facility] Start: 01-12-1994 Screening for malignant neoplasm of cervix HPV Testing [facility] Start: 01-12-1983 Hepatitis A Vaccine (1 of 2 - Risk 2-dose series) Hepatitis A Vaccine (1 of 2 - Risk 2-dose series) [facility] Start: 01-12-1983 Urine microalbumin profile DTAP,TDAP,TD (1 - Tdap) [facility] Start: 01-12-1982 Anxiety Screening Anxiety Screening [facility] Start: 01-12-1982 Depression Screening Depression Screening [facility] Start: 01-12-1970 PNEUMOCOCCAL (1 - PCV) PNEUMOCOCCAL (1 - PCV) [facility] Start: 1964 COVID-19 VACCINE (#1) COVID-19 VACCINE (#1) [facility] Start: 1964 HEPATITIS B (1 of 3 - 3-dose series) HEPATITIS B (1 of 3 - 3-dose series) [facility] Basic metabolic 2008 panel with ionized calcium - Serum or Plasma [facility] CBC W Auto Different ial panel - Blood [facility] Clostridioides diffi cile DNA [Presence] in Unspecified specimen by CLIFFORD with probe detection [facility] Work Phone: CT Abdomen and Pelvi s W contrast IV [facility] Work Phone: CT Chest [facility] CT Chest [facility] End: 08-16-2025 DBT Breast - bilateral screening [facility] SCREENING [facility] Radiology Routine Encounter for screening mammogram for breast cancer 1 Occurrences starting 07/17/2024 until 08/16/2025 [facility] Work Phone: Comment on above: 1 Occurrences starting 07/17/2024 until 08/16/2025 End: 07-05-2024 EGD - THERAPEUTIC, EUS, OR TUBE INTERVENTIONS EGD - THERAPEUTIC, EUS, OR TUBE INTERVENTIONS Endoscopy Routine Gastroesophageal reflux disease, unspecified whether esophagitis present 1 Occurrences starting 07/06/2023 until 07/05/2024 [facility] Work Phone: Comment on above: 1 Occurrences starting 07/06/2023 until 07/05/2024 Elastase, pancreatic (el-1), fecal; quantitative [facility] Work Phone: Elastase.pancreatic [Presence] in Stool [facility] Fat [Mass/mass] in Stool [facility] Fat [Presence] in Stool [facility] Work Phone: Fat.neutral [Presenc e] in Stool [facility] Gastrointestinal pathogens panel - Stool by CLIFFORD with probe detection [facility] Work Phone: Giardia lamblia Ag [Presence] in Stool by Immunoassay [facility] Work Phone: Hemoglobin A1c/Hemoglobin.total in Blood [facility] Lactoferrin [Presenc e] in Stool by Immunoassay [facility] Work Phone: Magnesium measurement [facility] End: 10-15-2023 MEREDITH SCREENING [facility] SCREENING Radiology Routine Encounter for screening mammogram for breast cancer 1 Occurrences starting 09/15/2022 until 10/15/2023 [facility] Work Phone: Comment on above: 1 Occurrences starting 09/15/2022 until 10/15/2023 End: 07-05-2024 Manometry Study observation Narrative MANOMETRY ESOPHAGEAL Endoscopy Routine Esophageal dysphagia 1 Occurrences starting 07/06/2023 until 07/05/2024 [facility] Comment on above: 1 Occurrences starting 07/06/2023 until 07/05/2024 Measurement of respiratory function [facility] Work Phone: End: 09-15-2024 MG Breast Screening [facility] SCREEN[facility] Radiology Routine Encounter for screening mammogram for breast cancer 1 Occurrences starting 08/17/2023 until 09/15/2024 [facility] Work Phone: Comment on above: 1 Occurrences starting 08/17/2023 until 09/15/2024 Microorganism identi fied in Unspecified specimen by Culture FUNGAL CULTURE AND SMEAR - DERMAL (HAIR, SKIN AND NAIL) Microbiology Routine Onychodystrophy Diminished pulses in lower extremity 03/01/2024 4:12 PM EST [facility] Natriuretic peptide. B prohormone N-Terminal [Mass/volume] in Serum or Plasma [facility] NM Heart Views W str ess and W radionuclide IV [facility] Ova and parasites identified in Unspecified specimen by Light microscopy [facility] Work Phone: Patient Education [facility] Work Phone: Patient referral [facility] Work Phone: Protein measurement [facility] Work Phone: Protein measurement [facility] End: 10-09-2022 Screening mammography bi 2-view breast inc cad [facility] Radiology Routine Encounter for screening mammogram for breast cancer 1 Occurrences starting 09/09/2021 until 10/09/2022 [facility] Work Phone: Comment on above: 1 Occurrences starting 09/09/2021 until 10/09/2022 SURGICAL PATHOLOGY [facility] Work Phone: Comment on above: Release Upon Ordering for 1 Occurrences starting 07/21/2023, 1 completed T4 free measurement [facility] T4 free measurement [facility] Thyroid stimulating hormone measurement [facility] Thyroid stimulating hormone measurement [facility] Thyroperoxidase Ab [Units/volume] in Serum or Plasma [facility] End: 10-19-2024 US Abdomen RUQ US ABD RIGHT UPPER QUADRANT Radiology Routine Class 3 severe obesity due to excess calories with serious comorbidity and body mass index (BMI) of 45.0 to 49.9 in adult (HCC) 1 Occurrences starting 09/20/2023 until 10/19/2024 [facility] Comment on above: 1 Occurrences starting 09/20/2023 until 10/19/2024 US Heart [facility] Work Phone: End: 01-28-2024 US RENAL ARTERY [facility] US RENAL ARTERY [facility] Vascular Lab Routine Stage 3a chronic kidney disease (HCC) 1 Occurrences starting 01/27/2023 until 01/28/2024 [facility] Work Phone: Comment on above: 1 Occurrences starting 01/27/2023 until 01/28/2024 End: 03-01-2025 US.doppler Extremity arteries - bilateral for physiologic artery study PVR ANK PRESS [facility] Vascular Lab Routine Onychodystrophy Diminished pulses in lower extremity 1 Occurrences starting 03/01/2024 until 03/01/2025 [facility] Work Phone: Comment on above: 1 Occurrences starting 03/01/2024 until 03/01/2025 End: 03-15-2024 XR KNEE GENERAL 4V AP BOTH/PA BOTH/LAT/MERC RIGHT XR KNEE GENERAL 4V AP BOTH/PA BOTH/LAT/MERC RIGHT Radiology Routine Right knee pain, unspecified chronicity 1 Occurrences starting 02/14/2023 until 03/15/2024 [facility] Work Phone: Comment on above: 1 Occurrences starting 02/14/2023 until 03/15/2024 XR KNEE GENERAL 4V A P BOTH/PA BOTH/LAT/MERC RIGHT XR KNEE GENERAL 4V AP BOTH/PA BOTH/LAT/MERC RIGHT Radiology Routine Right knee pain, unspecified chronicity 02/21/2023 2:22 PM EST [facility] Work Phone: XR Lumbar spine 3 Views XR LUMBA R GENERAL 3V AP/LAT/L5-S1 Radiology Routine Right-sided low back pain with right-sided sciatica, unspecified chronicity 07/26/2024 6:38 PM EDT [facility] Work Phone: End: 08-25-2025 XR Lumbar spine 3 Views XR LUMBAR GENERAL 3V AP/LAT/L5-S1 Radiology Routine Right-sided low back pain with right-sided sciatica, unspecified chronicity 1 Occurrences starting 07/26/2024 until 08/25/2025 [facility] Work Phone: Comment on above: 1 Occurrences starting 07/26/2024 until 08/25/2025 XR Pelvis and Hip - right AP and Lateral frog XR HIP GENERAL 3V PELV/AP/LAT RIGHT Radiology Routine Right-sided low back pain with right-sided sciatica, unspecified chronicity 07/26/2024 6:38 PM EDT [facility] End: 08-25-2025 XR Pelvis and Hip - right AP and Lateral frog XR HIP GENERAL 3V PELV/AP/LAT RIGHT Radiology Routine Right-sided low back pain with right-sided sciatica, unspecified chronicity 1 Occurrences starting 07/26/2024 until 08/25/2025 [facility] Comment on above: 1 Occurrences starting 07/26/2024 until 08/25/2025 XR TIBIA FIBULA 2V AP/LAT RIGHT XR TIBIA FIBULA 2V AP/LAT RIGHT Radiology Routine Multiple leg contusions, right, initial encounter Acute pain of right knee 02/21/2023 4:22 PM EST [facility] Work Phone: [facility] Immunizations Immunization Date Immunization Notes Care Provider Eusebia weiss 10-17-2024 hepatitis A and hepatitis B vaccine Britni Lockwood RESEARCH INSTRUMENTATION TECHNICIAN.LAST PATTERN GRADER Work Phone: [facility] 04-16-2024 influenza, seasonal, injectable Sam Null MD Work Phone: [facility] 04-16-2024 zoster vaccine recombinant Sam Null MD Work Phone: [facility] 04-16-2024 influenza virus vaccine, unspecified formulation Sam Null MD Work Phone: [facility] 10-14-2023 zoster vaccine recombinant [facility] Provider [facility] 11-17-2022 influenza, injectabl e, quadrivalent, contains preservative Verito Older RESEARCH INSTRUMENTATION TECHNICIAN.LAST PATTERN GRADER Work Phone: [facility] 11-17-2022 tetanus toxoid, redu mamie diphtheria toxoid, and acellular pertussis vaccine, adsorbed Verito Older RESEARCH INSTRUMENTATION TECHNICIAN.LAST PATTERN GRADER Work Phone: [facility] 11-17-2022 influenza virus vaccine, unspecified formulation [facility] Provider [facility] 10-08-2021 pneumococcal (PCV20) vaccine, 20 valent (PREVNAR 20) Frank Fletcher MD Work Phone: [facility] Work Phone: 12-19-2019 influenza, injectabl e, quadrivalent, preservative free Dr. Sam Null Work Phone: [facility] 12-19-2019 influenza, seasonal, injectable Dr. Sam Null Work Phone: [facility] 12-19-2019 influenza, seasonal, injectable, preservative free Sam Null MD Work Phone: [facility] Work Phone: 01-15-2019 influenza, injectabl e, quadrivalent, preservative free Dr. Sam Null Work Phone: [facility] 01-15-2019 influenza, seasonal, injectable Dr. Sam Null Work Phone: [facility] 01-15-2019 influenza, seasonal, injectable, preservative free Sam Null MD Work Phone: [facility] Work Phone: 01-12-2019 influenza, seasonal, injectable Sam Null MD Work Phone: [facility] 12-03-2016 influenza, injectabl e, quadrivalent, contains preservative Sam Null MD Work Phone: [facility] Work Phone: Payers Date Payer Category Payer Self-pay [id number] 2022 Medicaid [id number] 2017 Medicaid 2017 Medicaid [facility] [facility] MEDICAID [id number] 2017-Present [phone] [address] [place] [address] Medicaid [id number] Unknown [id number] Unknown [id number] Unknown [id number] [id number]2 Unknown [id number] 2..840.1.670048.3.579.2.462 Unknown [id number] 2.840.1.798368.3.579.2.462 Unknown [id number] 2.840.1.117014.3.579.2.462 Unknown [id number] 2.840.1.585576.3.579.2.462 Unknown [id number] 2.840.1.549577.3.579.2.462 Unknown [id number] 2.840.1.668424.3.579.2.462 Unknown [id number] 2.840.1.638439.3.579.2.462 Unknown [id number] 2.840.1.388146.3.579.2.462 Unknown [id number] 2..840.1.084652.3.579.2.462 Unknown [id number] 2.840.1.838653.3.579.2.462 Unknown [id number] 2.840.1.817130.3.579.2.462 Unknown [id number] .840.1.607776.3.579.2.462 Unknown [id number] 2.840.1.076645.3.579.2.462 Unknown [id number] 2.16.840.1.692042.3.579.2.462 Unknown [id number] 2.16.840.1.800225.3.579.2.462 Unknown [id number] 2.840.1.696360.3.579.2.462 Unknown [id number] 2.16840.1.433976.3.579.2.462 Unknown [id number] 2.16.840.1.219418.3.579.2.462 Unknown [id number] 2.16.840.1.059466.3.579.2.462 Unknown [id number] 2.16840.1.995678.3.579.2.462 Unknown [id number] 2.16840.1.081616.3.579.2.462 Unknown [id number] [id number] Unknown [id number] Social History Date Type Detail Facility Start: 04-08-2021 End: 10-17-2024 Tobacco smoking status NHIS Ex-smoker [facility] Start: 05-30-1994 End: 05-30-2009 History of tobacco use Current smoker [facility] Start: 05-30-1994 End: 05-30-2009 History of tobacco use Cigarette Smoker [facility] Start: 04-09-2021 End: 10-08-2021 Alcohol intake Current non-drinker of alcohol (finding) [facility] Start: 04-08-2021 History SDOH Alcohol Frequency 2 [facility] Start: 04-08-2021 History SDOH Alcohol Std Drinks 1 [facility] Start: 04-08-2021 History SDOH Alcohol Comment rare 1 drink [facility] Start: 04-08-2021 History SDOH Physica l Activity DPW 7 [facility] Start: 04-08-2021 History SDOH Physica l Activity MPS 3 [facility] Start: 04-08-2021 Tobacco Comment started age 16[facility] Start: 1965 Sex Assigned At Not on file [facility] Start: 09-30-2021 End: 04-07-2023 Tobacco smoking status IAIS Unknown if ever smoked [facility] Start: 01-20-2019 None [facility] Start: 01-20-2019 With Family [facility] Start: 07-31-2020 Non-smoker [facility] Start: 1965 Sex Assigned At Female W [facility] Start: 04-08-2021 End: 06-01-2024 Cigarettes smoked current (pack per day) - Reported 1 [facility] Work Phone: Start: 04-08-2021 End: 10-17-2024 Tobacco use and exposure Smokeless tobacco non-user [facility] Work Phone: Start: 09-28-2021 End: 10-26-2021 Exposure to SARS-CoV-2 (event) Not sure [facility] Start: 10-26-2021 End: 06-01-2024 Tobacco use panel [facility] Work Phone: Start: 02-13-2012 National Score (1-10 0), lower number is lower risk 92 [facility] Work Phone: How often to you hav e a drink containing alcohol? Monthly or less [facility] Work Phone: How many standard drinks containing alcohol do you have on a typical day? 1 or 2 [facility] Work Phone: How often do you hav e 6 or more drinks on 1 occasion? Never [facility] Work Phone: Start: 11-17-2022 End: 11-08-2024 Alcohol intake Ex-drinker (finding) [facility] Start: 11-17-2022 Tobacco Comment started age 16 [facility] Start: 06-25-2024 Sex Female (finding) [facility] Start: 10-17-2024 Tobacco Comment started age 16 , quit 2009, 1PPD [facility] Medical Equipment Procedure Code Equipment Code Equipment Original Text Equipment Identifier Dates Total cholecystectomy with exploration of common bile duct CLIP,HEMOLOCK MED WECK FDA Start: 07-22-2020 Total cholecystectomy with exploration of common bile duct CLIP,HEMOLOCK MED WECK FDA Start: 07-22-2020 Total cholecystectomy with exploration of common bile duct CLIP,HEMOLOCK MED WECK FDA Start: 07-22-2020 Total cholecystectomy with exploration of common bile duct DRESSING,FIBRILLA R 1X2 1960 FDA Start: 07-22-2020 Total cholecystectomy with exploration of common bile duct CLIP,HEMBAYRON OCONNORCK FDA Start: 07-22-2020 Total cholecystectomy with exploration of common bile duct CLIP,HEMBAYRON OTERO WECK FDA Start: 07-22-2020 Total cholecystectomy with exploration of common bile duct CLIP,HEMOLOMAGDIEL OTERO WECK FDA Start: 07-22-2020 Total cholecystectomy with exploration of common bile duct DRESSING,FIBRILLA R 1X2 1960 FDA Start: 07-22-2020 Total cholecystectomy with exploration of common bile duct CLIP,HEMBAYRON OCONNORCK FDA Start: 07-22-2020 Total cholecystectomy with exploration of common bile duct CLIP,HEM[place]YRON [place] FDA Start: 07-22-2020 Total cholecystectomy with exploration of common bile duct CLIP,HEMOLOMAGDIEL OTERO WECK FDA Start: 07-22-2020 Total cholecystectomy with exploration of common bile duct DRESSING,FIBRILLA R 1X2 1960 FDA Start: 07-22-2020 Total cholecystectomy with exploration of common bile duct CLIP,GISSEL [place] FDA Start: 07-22-2020 Total cholecystectomy with exploration of common bile duct CLIP,[place]SEL [place] FDA Start: 07-22-2020 Total cholecystectomy with exploration of common bile duct CLIP,[place]ON [place] FDA Start: 07-22-2020 Total cholecystectomy with exploration of common bile duct DRESSING,FIBRILLA R 1X2 1960 FDA Start: 07-22-2020 Total cholecystectomy with exploration of common bile duct CLIP,[place] FDA Start: 07-22-2020 Total cholecystectomy with exploration of common bile duct CLIP,[place] FDA Start: 07-22-2020 Total cholecystectomy with exploration of common bile duct CLIP,HEMBAYRON OTERO WECK FDA Start: 07-22-2020 Total cholecystectomy with exploration of common bile duct DRESSING,FIBRILLA R 1X2 1960 FDA Start: 07-22-2020 Total cholecystectomy with exploration of common bile duct CLIP,HEMBAYRON OTERO WECK FDA Start: 07-22-2020 Total cholecystectomy with exploration of common bile duct CLIP,HEMOLOMAGDIEL OTERO WECK FDA Start: 07-22-2020 Total cholecystectomy with exploration of common bile duct CLIP,GISSEL OCONNORMAGDIEL FDA Start: 07-22-2020 Total cholecystectomy with exploration of common bile duct DRESSING,FIBRILLA R 1X2 1960 FDA Start: 07-22-2020 Total cholecystectomy with exploration of common bile duct CLIP,HEMOLOCK MED WECK FDA Start: 07-22-2020 Total cholecystectomy with exploration of common bile duct CLIP,HEMOLOCK MED WECK FDA Start: 07-22-2020 Total cholecystectomy with exploration of common bile duct CLIP,HEMOLOCK MED WECK FDA Start: 07-22-2020 Total cholecystectomy with exploration of common bile duct DRESSING,FIBRILLA R 1X2 1960 FDA Start: 07-22-2020 Total cholecystectomy with exploration of common bile duct CLIP,HEMOLOCK MED WECK FDA Start: 07-22-2020 Total cholecystectomy with exploration of common bile duct CLIP,HEMOLOCK MED WECK FDA Start: 07-22-2020 Total cholecystectomy with exploration of common bile duct CLIP,HEMOLOCK MED WECK FDA Start: 07-22-2020 Total cholecystectomy with exploration of common bile duct DRESSING,FIBRILLA R 1X2 1960 FDA Start: 07-22-2020 Total cholecystectomy with exploration of common bile duct CLIP,HEMOLOMAGDIEL OTERO WECK FDA Start: 07-22-2020 Total cholecystectomy with exploration of common bile duct CLIP,HEMOLOCK BRANDEN WECK FDA Start: 07-22-2020 Total cholecystectomy with exploration of common bile duct CLIP,HEMOLOCK MED WECK FDA Start: 07-22-2020 Total cholecystectomy with exploration of common bile duct DRESSING,FIBRILLA R 1X2 1960 FDA Start: 07-22-2020 Total cholecystectomy with exploration of common bile duct CLIP,HEMOLOCK BRANDEN WECK FDA Start: 07-22-2020 Total cholecystectomy with exploration of common bile duct CLIP,HEMOLOMAGDIEL OTERO WECK FDA Start: 07-22-2020 Total cholecystectomy with exploration of common bile duct CLIP,HEMOLOCK MED WECK FDA Start: 07-22-2020 Total cholecystectomy with exploration of common bile duct DRESSING,FIBRILLA R 1X2 1960 FDA Start: 07-22-2020 Total cholecystectomy with exploration of common bile duct CLIP,HEMOLOCK MED WECK FDA Start: 07-22-2020 Total cholecystectomy with exploration of common bile duct CLIP,HEMOLOCK MED WECK FDA Start: 07-22-2020 Total cholecystectomy with exploration of common bile duct CLIP,HEMOLOCK MED WECK FDA Start: 07-22-2020 Total cholecystectomy with exploration of common bile duct DRESSING,FIBRILLA R 1X2 1960 FDA Start: 07-22-2020 Total cholecystectomy with exploration of common bile duct CLIP,HEMOLOCK MED WECK FDA Start: 07-22-2020 Total cholecystectomy with exploration of common bile duct CLIP,HEMOLOCK MED WECK FDA Start: 07-22-2020 Total cholecystectomy with exploration of common bile duct CLIP,HEMOLOCK MED WECK FDA Start: 07-22-2020 Total cholecystectomy with exploration of common bile duct DRESSING,FIBRILLA R 1X2 1960 FDA Start: 07-22-2020 Total cholecystectomy with exploration of common bile duct CLIP,HEMOLOCK MED WECK FDA Start: 07-22-2020 Total cholecystectomy with exploration of common bile duct CLIP,HEMOLOCK MED WECK FDA Start: 07-22-2020 Total cholecystectomy with exploration of common bile duct CLIP,HEMOLOCK MED WECK FDA Start: 07-22-2020 Total cholecystectomy with exploration of common bile duct DRESSING,FIBRILLA R 1X2 1960 FDA Start: 07-22-2020 Total cholecystectomy with exploration of common bile duct CLIP,HEMOLOCK MED WECK FDA Start: 07-22-2020 Total cholecystectomy with exploration of common bile duct CLIP,HEMOLOCK MED WECK FDA Start: 07-22-2020 Total cholecystectomy with exploration of common bile duct CLIP,HEMOLOCK MED WECK FDA Start: 07-22-2020 Total cholecystectomy with exploration of common bile duct DRESSING,FIBRILLA R 1X2 1960 FDA Start: 07-22-2020 Total cholecystectomy with exploration of common bile duct CLIP,HEMOLOCK MED WECK FDA Start: 07-22-2020 Total cholecystectomy with exploration of common bile duct CLIP,HEMOLOCK MED WECK FDA Start: 07-22-2020 Total cholecystectomy with exploration of common bile duct CLIP,HEMOLOCK MED WECK FDA Start: 07-22-2020 Total cholecystectomy with exploration of common bile duct DRESSING,FIBRILLA R 1X2 1960 FDA Start: 07-22-2020 Total cholecystectomy with exploration of common bile duct CLIP,HEMOLOCK MED WECK FDA Start: 07-22-2020 Total cholecystectomy with exploration of common bile duct CLIP,HEMOLOCK MED WECK FDA Start: 07-22-2020 Total cholecystectomy with exploration of common bile duct CLIP,HEMOLOCK MED WECK FDA Start: 07-22-2020 Total cholecystectomy with exploration of common bile duct DRESSING,FIBRILLA R 1X2 1960 FDA Start: 07-22-2020 Total cholecystectomy with exploration of common bile duct CLIP,HEMOLOCK MED WECK FDA Start: 07-22-2020 Total cholecystectomy with exploration of common bile duct CLIP,HEMOLOCK MED WECK FDA Start: 07-22-2020 Total cholecystectomy with exploration of common bile duct CLIP,HEMOLOCK MED WECK FDA Start: 07-22-2020 Total cholecystectomy with exploration of common bile duct DRESSING,FIBRILLA R 1X2 1960 FDA Start: 07-22-2020 Total cholecystectomy with exploration of common bile duct CLIP,HEMOLOCK MED WECK FDA Start: 07-22-2020 Total cholecystectomy with exploration of common bile duct CLIP,HEMOLOCK MED WECK FDA Start: 07-22-2020 Total cholecystectomy with exploration of common bile duct CLIP,HEMOLOCK MED WECK FDA Start: 07-22-2020 Total cholecystectomy with exploration of common bile duct DRESSING,FIBRILLA R 1X2 1960 FDA Start: 07-22-2020 Total cholecystectomy with exploration of common bile duct CLIP,HEMOLOCK MED WECK FDA Start: 07-22-2020 Total cholecystectomy with exploration of common bile duct CLIP,HEMOLOCK MED WECK FDA Start: 07-22-2020 Total cholecystectomy with exploration of common bile duct CLIP,HEMOLOCK MED WECK FDA Start: 07-22-2020 Total cholecystectomy with exploration of common bile duct DRESSING,FIBRILLA R 1X2 1960 FDA Start: 07-22-2020 Total cholecystectomy with exploration of common bile duct CLIP,HEMOLOCK MED WECK FDA Start: 07-22-2020 Total cholecystectomy with exploration of common bile duct CLIP,HEMOLOCK MED WECK FDA Start: 07-22-2020 Total cholecystectomy with exploration of common bile duct CLIP,HEMOLOCK MED WECK FDA Start: 07-22-2020 Total cholecystectomy with exploration of common bile duct DRESSING,FIBRILLA R 1X2 1960 FDA Start: 07-22-2020 Total cholecystectomy with exploration of common bile duct CLIP,HEMOLOCK MED WECK FDA Start: 07-22-2020 Total cholecystectomy with exploration of common bile duct CLIP,HEMOLOCK MED WECK FDA Start: 07-22-2020 Total cholecystectomy with exploration of common bile duct CLIP,HEMOLOCK MED WECK FDA Start: 07-22-2020 Total cholecystectomy with exploration of common bile duct DRESSING,FIBRILLA R 1X2 1960 FDA Start: 07-22-2020 Total cholecystectomy with exploration of common bile duct CLIP,[place] FDA Start: 07-22-2020 Total cholecystectomy with exploration of common bile duct CLIP,HEMOLOCK MED WECK FDA Start: 07-22-2020 Total cholecystectomy with exploration of common bile duct CLIP,HEMOLOCK MED WEMAGDIEL FDA Start: 07-22-2020 Total cholecystectomy with exploration of common bile duct DRESSING,FIBRILLA R 1X2 1960 FDA Start: 07-22-2020 Goals Date Patient Goal Desired Activity /State Personal health goal Personal health goal Personal health goal Mental Status Date Assessment Result Facility 09-09-2021 Cognitive function Level Of Cons ciousness Awake;Alert;Appropriate;Follow s Commands [facility] Work Phone: Clinical Notes 2010 to 10-22-2024 Telephone Encounter - Polly Martins MA - 10/22/2024 2:07 PM EDTTelephone Encounter - Polly Martins MA - 10/22/2024 2:07 PM EDTTelephone Encounter - Urszula Rose - 09/13/2024 2:05 PM EDT Note Date & Type Note Facility 10-22-2024 Telephone encounter Note Patient phones requesting refills as follows: Requested Prescriptions Refused Prescriptions Disp Refills VITAMIN D-3 50 mcg (2,000 unit) cap [Pharmacy Med Name: VITAMIN D3 2,000 UNIT SOFTGEL] 90 capsule 0 Sig: TAKE 1 CAPSULE BY MOUTH ONCE DAILY Refused By: POLLY MARTINS Reason for Refusal: Records indicate that there is a valid prescription at the pharmacy Last ordered 12/30/23 for 90 tablets and 3 refils. Should have refill at pharmacy. 08/17/24 PLAN: -Labs to be done prior to next visit. -Check home BPs and send in report in 2 weeks via [email or web address]. -Continue to follow with your specialists and PCP as planned -Discussed need for good blood pressure and cholesterol control to prevent disease progression. -Recommend BP goal of 130s/80 or less. Please contact the office if your blood pressure is less than 110/70 or higher than 160/90. -Follow low salt diet. (1/2 tsp salt) <2 grams or 2000mg -Please limit your protein intake to 3 ounces of protein per meal. -Please avoid Advil, Ibuprofen(Motrin), Aleve(Naproxen), Meloxicam(Mobic), diclofenac and other pain/arthritis medications called NSAIDS. It is ok to take acetaminophen (Tylenol) for pain as needed -Please avoid contrast dye with imaging. If a provider wants to order CT or MRI with contrast, please let them know you have decreased kidney function. -Increase activity as tolerated. RTC in 4 months [facility] Front Office Director with Dr. Stone. [facility] 10-22-2024 Miscellaneous Notes Patient phones requesting refills as follows: Requested Prescriptions Refused Prescriptions Disp Refills VITAMIN D-3 50 mcg (2,000 unit) cap [Pharmacy Med Name: VITAMIN D3 2,000 UNIT SOFTGEL] 90 capsule 0 Sig: TAKE 1 CAPSULE BY MOUTH ONCE DAILY Refused By: POLLY MARTINS Reason for Refusal: Records indicate that there is a valid prescription at the pharmacy Last ordered 12/30/23 for 90 tablets and 3 refils. Should have refill at pharmacy. 08/17/24 PLAN: -Labs to be done prior to next visit. -Check home BPs and send in report in 2 weeks via [email or web address]. -Continue to follow with your specialists and PCP as planned -Discussed need for good blood pressure and cholesterol control to prevent disease progression. -Recommend BP goal of 130s/80 or less. Please contact the office if your blood pressure is less than 110/70 or higher than 160/90. -Follow low salt diet. (1/2 tsp salt) <2 grams or 2000mg -Please limit your protein intake to 3 ounces of protein per meal. -Please avoid Advil, Ibuprofen(Motrin), Aleve(Naproxen), Meloxicam(Mobic), diclofenac and other pain/arthritis medications called NSAIDS. It is ok to take acetaminophen (Tylenol) for pain as needed -Please avoid contrast dye with imaging. If a provider wants to order CT or MRI with contrast, please let them know you have decreased kidney function. -Increase activity as tolerated. RTC in 4 months [facility] Front Office Director with Dr. Stone. documented in this encounter [facility] 10-17-2024 Note HNO ID: [id number] Author: VALERIY BARTON RT(R) Service: ? Author Type: Bowling Ball Molder Type: Progress Notes Filed: 10/17/2024 17:09 Note Text: Radiology Service Progress Note PATIENT NAME: Joellen Gant DATE OF SERVICE: October 17, 2024 TIME: 4:36 PM PATIENT IDENTITY VERIFICATION COMPLETED USING TWO (2) IDENTIFIERS: Name and Date of confirmed by patient verbally. FALL SCREENING: Has the patient had 2 falls in the last year or 1 fall with injury or currently using an Ambulatory Assistive Device (Walker, Cane, Wheelchair, Crutches, etc.)? No PATIENT GENDER DATA: Assigned female at . status: : No status: NO. PATIENT RELEVANT IMPLANT DATA REVIEWED: Yes PATIENT PRESENTS WITH AN IMPLANTABLE OR ATTACHED STUNT PERFORMER: No RADIOLOGY DEPARTMENT: General X-ray: Exam(s) Completed: Lower Extremity X-Ray(s): Tibia Fibula, Right PERIPHERAL IV DATA: Not applicable SIGNED BY: RT Makenna(R) October 17, 2024 4:36 PM [facility] 10-17-2024 Note HNO ID: [id number] Author: SAM NULL MD Service: ? Author Type: Physician Type: Progress Notes Filed: 10/18/2024 02:03 Note Text: Subjective Joellen Gant is a 59 year old female. Patient presents with: Yearly Exam Joellen continued with significant pain in her right lower back, radiating to her right leg. She had significant pain in the right lateral leg since her fall this past spring. Her LS spine xrays and hip xrays on July 2014 showed no acute process, but she was concerned about her right leg due to the pain. She did see Dr. Darleen Reynoso for pain management and was given tramadol short term. She was scheduled for lower back injections 10/29/24. She also complained of recurrent chest pain radiating to the back for one week, not related to physical activity. [facility]. Other specialists: 1) Porfirio Jeff CNP, ([facility]). 2) Sridhar Byrnes MD, ([facility]). 3) Brittany Anderson, ERICK, ([facility]). 4) Grant Morgan MD, ([facility]). 5) Chase Paulino MD/ Britni Lockwood CNP, ([facility] Nephrology). 6) Marii Herzog MD, (Bariatric Surgery). 7) Lisbet Steel, [facility] Psychology, (Bariatric program). 8) Stephanie George PA-C, ([facility] Orthopedics). 9) Darleen Reynoso MD ([facility]) 10)Ethan Betancur MD (Ophthalmology [facility]) PAST MEDICAL HISTORY Diagnosis Date Acquired hypothyroidism 04/16/[address] Grant Morgan managing Asthma ([facility]) 06/13/2008 Atypical chest pain 01/2019 heart cath normal Bile-induced gastritis 04/08/2021 Calcium deposits in tendon and bursa right knee Carpal tunnel syndrome, bilateral 10/16/2015 Chronic cholecystitis 07/22/2020 Chronic midline low back pain without sciatica 07/31/2015 Cirrhosis of liver without ascites, unspecified hepatic cirrhosis type (HCC) 11/21/2023 CKD stage 3a, GFR 45-59 ml/min ([facility]) Colon polyp 07/17/2020 Dermatophytosis of the body Edema 06/13/2008 GERD (gastroesophageal reflux disease) 07/29/2010 Hiatal hernia 07/17/2020 medium sized seen on EGD Infectious mononucleosis Irregular menstrual cycle Irritable bowel syndrome with diarrhea 08/04/2015 Morbid obesity with BMI of 45.0-49.9, adult ([facility]) Obesity, Class III, BMI 40-49.9 (morbid obesity) ([facility]) 07/27/2017 Stage 3a chronic kidney disease ([facility]) 04/08/2021 Tobacco use disorder Unspecified hearing loss left ear - wears hearing aid Unspecified hypothyroidism PAST SURGICAL HISTORY Procedure Laterality Date 48 HOUR PH STUDY 07/21/2023 Dr. Herzog COLONOSCOPY SCREENING 07/17/2020 CT BIOPSY LIVER NEEDLE PERC 01/04/2024 EGD WITH BIOPSY(S) 07/17/2020 medium sized hiatal hernia; Dr. Escalante EGD WITH BIOPSY(S) 07/21/2023 3 cm hiatal hernia; Dr. Herzog ESOPHAGEAL MANOMETRY 07/21/2023 Dr. Herzog LAPMilagros SURG CHOLECYSTECTOMY W/CHOLANGIOGRAPHY 07/22/2020 [facility] LEFT HEART CATH,PERCUTANEOUS 01/23/2019 L AND R heart catheterization normal. FAMILY HISTORY Problem Relation Age of Onset Hypertension Mother Heart Attack Mother Scoliosis Mother Back Pain Mother Arrhythmia Mother atrial fibrillatio Hypertension Father Cancer Father brain Seizures Sister during youth Psychiatry Sister Seizures Sister Hypertension Sister Polycystic Ovary Syndrome Sister Psychiatry Sister Arthritis Sister hip No Known Problems Sister Hypertension Brother Seizures Brother Diabetes Maternal Grandmother COPD Maternal Grandfather Social History Tobacco Use Smoking status: Former Current packs/day: 0.00 Average packs/day: 1 pack/day for 15.0 years (15.0 ttl pk-yrs) Types: Cigarettes Start date: 05/30/1994 Quit date: 05/30/2009 Years since quittin.3 Smokeless tobacco: Never Tobacco comments: started age 16, quit 2009, 1PPD Vaping Use Vaping status: Never Used Substance Use Topics Alcohol use: Not Currently Drug use: Never ALLERGIES Allergen Reactions Iv Contrast [Iodine] Swelling Seasonal Allergies Intolerance Current Outpatient Medications Medication Sig hydrocortisone 2.5 % cream Apply 1 application to affected area two times a day as needed (Apply sparingly to rash of hands, arms, legs for 1 week.). carvedilol (COREG) 3.125 mg tablet Take 1 tablet by mouth two times a day. [facility]. dicyclomine (BENTYL) 20 mg tablet Take 1 tablet by mouth three times a day as needed (per [facility]). torsemide (DEMADEX) 20 mg tablet Take 1 tablet by mouth two times a day. [facility] CPAP BiPAP 9/5 cm per [facility]. cholestyramine-sucrose (QUESTRAN) 4 gram powder TAKE 4 GRAMS BY MOUTH AT BEDTIME. ADMINISTER WITH A MEAL. AVOID O... (REFER TO PRESCRIPTION NOTES). sucralfate (CARAFATE) 1 gram tablet Take one tablet in the morning and one tablet in the afternoon cholecalciferol (VITAMIN D3) 50 mcg (2,000 unit) tablet Take 1 tablet by mouth (more content not included)... [facility] 09-21-2024 Radiology Diagnostic study note [facility] Imaging Services [address] [place] [address] Lung Screening MR#: [id number] Acct: [id number] Name: JOELLEN GANT Rep #: [id number] : 1965 F 59 From: Nayeli Cook MD PCP: Dr. Sam Null MD Status: R EG CLI Study:Low Dose CT Lung Screening Date of Exam : 09/21/24 Exam# [id number] Ordering Dr: Cameron Anderson NP SHIPFITTER APPRENTICE-C PROCEDURE: LOW DOSE CT LUNG SCREENING 09/21/2024 REASON FOR EXAM: QUIT 05/2009 TECHNIQUE: LOW DOSE CT LUNG SCREENING Coronal and Sagittal reconstruction series were provided. One or more dose reduction techniques were used (e.g., Automated exposure control, adjustment of the mA and/or kV according to patient size, use of iterative reconstruction technique). REFERENCE LINK: [facility] Lung-RADS RADIATION DOSE SUMMARY: CTDlvol: 4.0 mGy DLP: 111 mGycm COMPARISON: CT chest on 04/13/2023 FINDINGS: Lymph Nodes:No suspicious lymphadenopathy. Heart and Vasculature:Normal heart size without significant coronary calcification. Lungs and Airways: Central airways are clear. There is a solid nodule in the right upper lobe measuring 2 mm (series 2, image 74), unchanged. Pleura:No effusion Upper Abdomen:Unremarkable Bones:Degenerative changes of the thoracic spine. CT/Low Dose CT Lung Screening IMPRESSION: Lung-RADS Category 2: Benign. Recommend continued annual screening with low-dose CT. Reading Location: [id number] CC: SHIPFITTER APPRENTICE-Cameron Anderson; Dr. Sam Null MD ~ Climatologist: Signed [facility] 09-13-2024 Telephone encounter Note Per Dr. Lopez, mailed Neuropsych testing results to the patient. [facility] 09-13-[address] Lopez, mailed Neuropsych testing results to the patient. documented in this encounter [facility] 09-13-2024 Note HNO ID: [id number] Author: PAMELA LOPEZ, PhD Service: ? Author Type: Psychologist Type: Progress Notes Filed: 09/13/2024 13:49 Note Text: Name: Joellen GAN Date of Testin08/14/2024 Neuropsychology Test Summary This score sheet is provided for the convenience of other professionals. It accompanies a written report and should not be interpreted without reference to the report. Test scores are relative to age, gender, and education as available and appropriate. Scores are reported as follows: SCORES MEAN STANDARD DEVIATION Standard Scores 100 15 Scaled Scores 10 3 T Scores 50 10 Z Scores 0 1 Wide Range Achievement Test - 5th Edition (WRAT-5) Standard Score Grade Equivalent Word Reading 105 >12.9 Math Computation 78 3.8 Cassidy Adult Intelligence Scale - 4th Edition (WAIS-IV) Index Standard Score Verbal Comprehension (prorated) 81 Perceptual Reasoning (prorated) 88 Processing Speed 74 General Ability (prorated) 82 Subtest Scaled Score Block Design 7 Similarities 7 Digit Span 4 Digit Span Forward 5 Digit Span Backward 6 Digit Span Sequencing 4 Matrix Reasoning 9 Vocabulary 6 Symbol Search 6 Coding 4 Neuropsychological Assessment Battery (NAB) Language Module Subtest T Score Naming 34 Neuropsychological Assessment Battery (NAB) Memory Module Subtest T Score Percentile Daily Living Memory Immediate Recall 42 Daily Living Memory Delayed Recall 37 Daily Living Memory Percent Retention (60%) 3 Daily Living Memory Delayed Recognition 14 Champion Verbal Learning Test-Revised (HVLT-R) T Score Trial 1 42 Trial 2 52 Trial 3 53 Total Recall 48 Delayed Recall 45 Retention (82%) 43 Recognition Discrimination Index 60 Brief Visuospatial Memory Test-Revised (BVMT-R) T Score Percentile Trial 1 38 Trial 2 40 Trial 3 34 Total Recall 36 Learning 46 Delayed Recall 33 Percent Retained (83%) >16 Recognition Hits >16 Recognition False Alarms 6-10 Recognition Discrimination Index 11-16 Repeatable Battery for the Assessment of Neuropsychological Status (RBANS: Form A) Index Standard Score Visuospatial/Constructional 72 Subtest Scaled Score Cumulative Percentage Figure Copy 10 Line Orientation <=2 Verbal Fluency (Jamari) T Score Set Loss Errors Perseverative Errors Phonemic Fluency (F-A-S) 29 0 0 Semantic Fluency 27 2 0 Welch Making Test (Jamari) T Score Total Errors Trails A 41 0 Trails B 39 0 Lilian-Dobson Executive Function System (DKEFS) Subtest Completion Time Scaled Score Total Errors Scaled Score Color Word Interference Test Color Naming 4 5 (cumulative %age) Word Reading 6 10 (cumulative %age) Inhibition 11 9 Inhibition/Switching DC DC Mood Rating Scales Total Score PHQ-9 9 PAULA-7 4 [facility] 09-13-2024 Note HNO ID: [id number] Author: PAMELA LOPEZ, PhD Service: ? Author Type: Psychologist Type: Progress Notes Filed: 09/13/2024 13:48 Note Text: Neuropsychology Consultation Name: Joellen Gant [facility] Dates of Service: 08/14/2024 (testing), 09/13/2024 (feedback) Referral: This is a 59-year-old, left-handed woman referred for a neuropsychological evaluation by Dr. Lisbet Steel (psychology). She is pursuing bariatric surgery. The purpose of the evaluation is to assess her current neurocognitive functioning and to inform clearance for bariatric surgery. She presented unaccompanied and provided the history herself. This evaluation was conducted for treatment planning purposes only and is not valid for forensic, disability, or workers' compensation purposes. Details of the patient's history are already known to the referral source and are only briefly summarized. Please see patient's medical records for more detailed information. Procedures: Available medical records were obtained and reviewed. Verbal informed consent was obtained prior to the clinical interview following a discussion of the nature of the evaluation, test procedures, risks and benefits, professional records, and confidentiality. A clinical interview was then conducted with the patient, and the following tests were administered by a trained assistant refinery operator: WRAT-5: Word Reading, Math Computation; WAIS-IV: Block Design, Similarities, Digit Span, Matrix Reasoning, Vocabulary, Symbol Search, Coding; NAB: Naming, Daily Living Memory; HVLT-R; BVMT-R; RBANS: Figure Copy, Line Orientation; Phonemic Fluency; Semantic Fluency; TMT AANDB; DKEFS: Color Word Interference Test; SRT; DCT; PHQ-9, PAULA-7. The testing was scored and interpreted. A follow-up appointment was held to review the results, and this report was finalized. History AND Clinical Interview: Cognitive Complaints: Reported longstanding cognitive difficulties but her description was difficult to follow. Endorsed problems with STM, LTM, and attention. Concerned that her memory is getting worse and she is worried. Physical Complaints: Chronic pain, currently 4/10 today, treated with gabapentin, recently referred to pain specialist. Psychological Complaints AND History: Reported some stress with her current living situation. Denied prior psychiatric diagnoses or treatments. Denied SI/HI. See psychology notes for additional information. Daily Functioning: Currently lives with her mother, brother, and sister. Plans to move soon. Stopped working 1.5 years ago, receives SSDI. Independent in all IADLs. 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 During the day she goes on walks and plays with her dogs. Sleep: Reported insomnia and VETO. Unsure how many hours she sleeps per night. Has upcoming sleep study scheduled to determine if she still needs CPAP. Substance Use: Denied alcohol, tobacco, recreational drug use, or history of substance abuse. Developmental AND Occupational History: Early developmental history unremarkable. Monolingual Kyrgyz speaker. 9 years of formal education, no GED. Attended public schools. Learning difficulties in school, thinks she was in special education but was not sure. May have repeated kindergarten but also not sure. Reported childhood attention/behavioral difficulties, believes she has undiagnosed ADHD. Noted that all 7 of her children have it. 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 Prior Relevant Workup: -No prior cognitive screeners, neuropsychological testing, or brain imaging on file. -Recent B12, folate WNL. TSH abnormal - recommended to follow up with PCP Past Medical History: Acquired hypothyroidism 04/16/[address] Grant Morgan managing Asthma (HCC) 06/13/2008 Atypical chest pain 01/2019 heart cath normal Bile-induced gastritis 04/08/2021 Calcium deposits in tendon and bursa right knee Carpal tunnel syndrome, bilateral 10/16/2015 Chronic cholecystitis 07/22/2020 Chronic midline low back pain without sciatica 07/31/2015 Cirrhosis of liver without ascites, unspecified hepatic cirrhosis type (HCC) 11/21/2023 CKD stage 3a, GFR 45-59 ml/min (HCC) Colon polyp 07/17/2020 Dermatophytosis of the body Edema 06/13/2008 GERD (gastroesophageal reflux disease) 07/29/2010 Hiatal hernia 07/17/2020 medium sized seen on EGD Infectious mononucleosis Irregular menstrual cycle Irritable bowel syndrome with diarrhea 08/04/2015 Morbid obesity with BMI of 45.0-49.9, adult ([facility]) Obesity, Class III, BMI 40-49.9 (morbid obesity) ([facility]) 07/27/2017 Stage 3a chronic kidney disease ([facility]) 04/08/2021 Tobacco use disorder Unspecified hearing loss left ear - wears hearing aid Unspecified hypothyroidism -Stated she was ?unsure? when asked about prior head injuries, stroke symptoms, (more content not included)... [facility] 09-13-2024 History of Present illness Narrative Images from the original note were not included. Neuropsychology Consultation Name: Joellen Gant [facility] Dates of Service: 08/14/2024 (testing), 09/13/2024 (feedback) Referral: This is a 59-year-old, left-handed woman referred for a neuropsychological evaluation by Dr. Lisbet Steel (psychology). She is pursuing bariatric surgery. The purpose of the evaluation is to assess her current neurocognitive functioning and to inform clearance for bariatric surgery. She presented unaccompanied and provided the history herself. This evaluation was conducted for treatment planning purposes only and is not valid for forensic, disability, or workers' compensation purposes. Details of the patient's history are already known to the referral source and are only briefly summarized. Please see patient's medical records for more detailed information. Procedures: Available medical records were obtained and reviewed. Verbal informed consent was obtained prior to the clinical interview following a discussion of the nature of the evaluation, test procedures, risks and benefits, professional records, and confidentiality. A clinical interview was then conducted with the patient, and the following tests were administered by a trained assistant refinery operator: WRAT-5: Word Reading, Math Computation; WAIS-IV: Block Design, Similarities, Digit Span, Matrix Reasoning, Vocabulary, Symbol Search, Coding; NAB: Naming, Daily Living Memory; HVLT-R; BVMT-R; RBANS: Figure Copy, Line Orientation; Phonemic Fluency; Semantic Fluency; TMT A&B; DKEFS: Color Word Interference Test; SRT; DCT; PHQ-9, PAULA-7. The testing was scored and interpreted. A follow-up appointment was held to review the results, and this report was finalized. History & Clinical Interview: Cognitive Complaints: Reported longstanding cognitive difficulties but her description was difficult to follow. Endorsed problems with STM, LTM, and attention. Concerned that her memory is getting worse and she is worried. Physical Complaints: Chronic pain, currently 4/10 today, treated with gabapentin, recently referred to pain specialist. Psychological Complaints & History: Reported some stress with her current living situation. Denied prior psychiatric diagnoses or treatments. Denied SI/HI. See psychology notes for additional information. Daily Functioning: Currently lives with her mother, brother, and sister. Plans to move soon. Stopped working 1.5 years ago, receives SSDI. Independent in all IADLs. 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 During the day she goes on walks and plays with her dogs. Sleep: Reported insomnia and VETO. Unsure how many hours she sleeps per night. Has upcoming sleep study scheduled to determine if she still needs CPAP. Substance Use: Denied alcohol, tobacco, recreational drug use, or history of substance abuse. Developmental & Occupational History: Early developmental history unremarkable. Monolingual Kyrgyz speaker. 9 years of formal education, no GED. Attended public schools. Learning difficulties in school, thinks she was in special education but was not sure. May have repeated kindergarten but also not sure. Reported childhood attention/behavioral difficulties, believes she has undiagnosed ADHD. Noted that all 7 of her children have it. 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 Prior Relevant Workup: -No prior cognitive screeners, neuropsychological testing, or brain imaging on file. -Recent B12, folate WNL. TSH abnormal - recommended to follow up with PCP Past Medical History: Acquired hypothyroidism 04/16/[address] Grant Morgan managing Asthma (HCC) 06/13/2008 Atypical chest pain 01/2019 heart cath normal Bile-induced gastritis 04/08/2021 Calcium deposits in tendon and bursa right knee Carpal tunnel syndrome, bilateral 10/16/2015 Chronic cholecystitis 07/22/2020 Chronic midline low back pain without sciatica 07/31/2015 Cirrhosis of liver without ascites, unspecified hepatic cirrhosis type (HCC) 11/21/2023 CKD stage 3a, GFR 45-59 ml/min ([facility]) Colon polyp 07/17/2020 Dermatophytosis of the body Edema 06/13/2008 GERD (gastroesophageal reflux disease) 07/29/2010 Hiatal hernia 07/17/2020 medium sized seen on EGD Infectious mononucleosis Irregular menstrual cycle Irritable bowel syndrome with diarrhea 08/04/2015 Morbid obesity with BMI of 45.0-49.9, adult ([facility]) Obesity, Class III, BMI 40-49.9 (morbid obesity) ([facility]) 07/27/2017 Stage 3a chronic kidney disease ([facility]) 04/08/2021 Tobacco use disorder Unspecified hearing loss left ear - wears hearing aid Unspecified hypothyroidism -Stated she was unsure when asked about prior head injuries, stroke symptoms, or seizure symptoms Past Surgical History: 48 HOUR PH STUDY 07/21/2023 Dr. Herzog COLONOSCOPY SCREENING 07/17/2020 CT BIOPSY LIVER NEEDLE PERC 01/04/2024 EGD WITH BIOPSY(S) 07/17/2020 medium sized hiatal hernia; Dr. Escalante EGD WITH BIOPSY(S) 07/21/2023 3 cm hiatal hernia; Dr. Herzog ESOPHAGEAL MANOMETRY 07/21/2023 Dr. Herzog LAPS SURG CHOLECYSTECTOMY W/CHOLANGIOGRAPHY 07/22/2020 [facility] LEFT HEART CATH,PERCUTANEOUS 01/23/2019 [facility] heart catheterization vamshi. Family History: Diabetes Maternal Grandmother Hypertension Brother Hypertension Sister Hypertension Mother Hypertension Father Seizures Sister Seizures Brother Cancer Father brain -As noted, all 7 of her children have ADHD. Current Medications: topiramate (TOPAMAX) 25 mg tablet Take 2 tablets by mouth once daily. gabapentin (NEURONTIN) 300 mg capsule Take 1 capsule by mouth daily at bedtime for 30 days. albuterol HFA (PROAIR HFA) 90 mcg/actuation inhaler [...] of hands, arms, legs for 1 week.). carvedilol (COREG) 3.125 mg tablet Take 1 tablet by mouth two times a day. [facility]. dicyclomine (BENTYL) 20 mg tablet Take 1 tablet by mouth three times a day as needed (per [facility]). torsemide (DEMADEX) 20 mg tablet Take 1 tablet by mouth two times a day. [facility]. CPAP BiPAP 9/5 cm per [facility]. cholestyramine-sucrose (QUESTRAN) 4 gram powder TAKE 4 GRAMS BY MOUTH AT BEDTIME. ADMINISTER WITH A MEAL. AVOID O... (REFER TO PRESCRIPTION NOTES). sucralfate (CARAFATE) 1 gram tablet Take one tablet in the morning and one tablet in the afternoon cholecalciferol (VITAMIN D3) 50 mcg (2,000 unit) tablet Take 1 tablet by mouth once daily. CREON 36,000-114,000- 180,000 unit delayed release capsule 1 capsule with meals and at bedtime. 2-3 capsules with meals and 1-2 with snacks hyoscyamine (LEVSIN) 0.125 mg tablet Take 0.125 mg by mouth every 6 hours as needed. 1-2 tablets four times daily as needed pantoprazole DR (PROTONIX) 40 mg tablet Take 1 tablet by mouth two times a day. Take on empty stomach, 1/2 hr before meal. omeprazole (PRILOSEC) 40 mg capsule Take 1 capsule by mouth once daily. levothyroxine (SYNTHROID) 100 mcg tablet Take 1 tablet by mouth once daily. Per [facility]. colestipol (COLESTID) 1 gram tablet Take 2 tablets by mouth two times a day. spironolactone (ALDACTONE) 25 mg tablet Take 1 tablet by mouth every afternoon. Per [facility] olopatadine (PATANOL) 0.1 % ophthalmic solution EYE ITCH RELIEF 0.025 % (0.035 %) ophthalmic solution instill 1 drop into both eyes twice a day if needed nitroglycerin sublingual (NITROQUICK) 0.4 mg SL tablet 0.4 mg. aspirin, enteric coated (ASPIRIN, ENTERIC COATED) 81 mg EC tablet Take 1 tablet by mouth once daily. atorvastatin (LIPITOR) 20 mg tablet Take 20 mg by mouth once daily. potassium chloride SR (MICRO-K) 10 mEq CR capsule Take 1 capsule by mouth once daily. No current facility-administered medications for this visit. Neurobehavioral Exam & Observations: Consciousness: Awake and alert Dress: Appropriate Ambulation: Independent Motor: No tremor or involuntary movements observed Language Comprehension: Intact Language Output: No word finding pauses or paraphasic errors observed Speech: Fluent and articulate with normal rate, volume, prosody Vision: Adequate for testing with glasses Hearing: Adequate for testing Eye Contact: Appropriate Orientation: Missed date by 1 day but otherwise fully oriented x4 Affect: Somewhat labile Thought Process: Circumstantial requiring redirection Thought Content: No overt evidence of paranoia or delusional thinking Test Specific Observations: Cooperative with all evaluation procedures, appeared to put forth sufficient effort. She tended to start tasks before given permission to begin, and she also tended to talk through processing speed tasks (even when redirected). DKEFS Color Word Interference Condition 4 was discontinued after her cell phone rang early in the task and she then had difficulty redirecting her attention back to the task. Test Results: Validity: The patient scored in the valid range on three of three standalone and embedded performance validity tests (with appropriate cutoffs). When viewed together with behavioral observations, the results are judged to be a valid and accurate representation of her current cognitive functioning. A summary of individual test scores is attached as an addendum. An overview of the results is below but I will not discuss every single test or score. Premorbid/General: Low Average Academic: Single Word Reading: Average Math Computation: Below Average Attention: Auditory Attention Span: Below Average Auditory Working Memory: Below Average to Low Average Speed of Information Processing: Below Average to Low Average Language: Confrontation Naming: Below Average Vocabulary: Low Average Memory: Verbal Unstructured: Encoding: Average Retrieval: Average Recognition: High Average Verbal Structured: Encoding: Low Average Retrieval: Low Average Recognition: Low Average Visual: Encoding: Below Average Retrieval: Below Average Recognition: Low Average Spatial: Visuoperception: Exceptionally Low (clinical significance of this score is questionable) Visuoconstruction (figure copy): Average Visuoconstruction (three dimensional blocks): Low Average Executive: Phonemic Fluency: Exceptionally Low Semantic Fluency: Exceptionally Low Inhibitory Control: Inconsistent (exceptionally low to average) Set Shifting: Inconsistent (exceptionally low to low average) Verbal Abstract Reasoning: Low Average Nonverbal Abstract Reasoning: Average Emotional Functioning: Endorsed mild depression symptoms and minimal anxiety symptoms on mood screening measures (PHQ-9, PAULA-7). Inspection of items revealed strongest endorsement of difficulty sleeping, poor appetite/overeating, trouble concentrating. There was minimal endorsement of emotional symptoms. Summary & Clinical Impressions: Ms. Joellen Gant is a 59-year-old woman referred for a neuropsychological evaluation to assess her current neurocognitive functioning and to inform clearance for bariatric surgery. Summary of Test Findings: Her general/premorbid abilities are estimated to be in the low average range, which is consistent with her educational background (i.e., learning difficulties in school). Relative to these expectations, the test findings were significant for difficulty with executive functioning including inhibitory control and set shifting (both on formal testing and qualitative observations). In all other regards, the results were within normal expectations with scores generally in the low average range (attention, processing speed, language, memory, spatial functioning). Memory testing showed broadly intact encoding, retrieval, and recognition abilities. In addition to the cognitive test findings, there was evidence of mild depression symptoms on a screening measure; however, given that she did not endorse any emotional symptoms, it's possible the elevated items are due to non-depression related factors (e.g., sleep disorder, medication side effects) Clinical Impressions: The results suggest that her cognitive abilities are mostly intact relative to her general abilities, except for some difficulty with executive functioning which I suspect is probably developmental in nature. She reported a history of learning difficulties and may also have undiagnosed ADHD. She reported childhood attention/behavior problems and noted that all 7 of her children have been diagnosed with ADHD. However, a formal diagnosis of ADHD was outside the scope of the present evaluation. She does not meet criteria for a neurocognitive disorder at this time. Recommendations: Based on the evaluation, I do not have any immediate concerns about her ability to understand and follow medical instructions. She is encouraged to practice behaviors beneficial for brain health (shared at feedback). The current findings can serve as a baseline if she were to repeat testing in the future. Follow Up: The test findings, clinical impressions, and recommendations were discussed with Ms. Gant and all questions were answered. She said that was previously diagnosed with OCD and ADHD, which was not reported during the testing session, and requested a referral to psychiatry for further evaluation and treatment. Referral was placed. Thank you for the opportunity to participate in the care of Ms. Shaulis. Please contact me if you have any questions about the evaluation ([phone]). Pamela Lopez, PhD Clinical Neuropsychologist Neurobehavioral status exam (interview by neuropsychologist): 1 hour Time testing and scoring (by lead maintenance technician): 3 hours Time completing additional tests, analyzing, interpreting and incorporating other available medical information, clinical data review, report writing, and interactive feedback with patient and/or family/caregiver (by neuropsychologist): 3 hours documented in this encounter [facility] 09-11-2024 Telephone encounter Note Patient calls and states that she continues to be in a lot of pain. Advised Patient that Dr. Reynoso office is waiting for tox screen to come back before prescribing medications. Patient states that is not right Dr. Reynoso is waiting for Dr. Null to say he isn't going to prescribe anymore medication. Advised patient again that Dr. Reynoso office is waiting on Tox Screen. Patient voiced understanding and will give that office a call back. Patient states that she is down to 209 pounds. Lara Corbin RN [facility] 09-11-2024 Miscellaneous Notes Patient calls and states that she continues to be in a lot of pain. Advised Patient that Dr. Reynoso office is waiting for tox screen to come back before prescribing medications. Patient states that is not right Dr. Reynoso is waiting for Dr. Null to say he isn't going to prescribe anymore medication. Advised patient again that Dr. Reynoso office is waiting on Tox Screen. Patient voiced understanding and will give that office a call back. Patient states that she is down to 209 pounds. Lara Corbin RN Spoke to Dr. Greene office and they advised they are waiting for her tox/pain screen to come back before deciding if further prescription can be dispensed. Erlinda Roper MA Pt states that she needs to communicate with her pain management Dr. Greene to confirm its ok to continue keep filling gabapentin. Pt states messages were sent from Dr. Greene on 09/04/24 as well. Please advise, Thank you documented in this encounter [facility] 09-11-2024 Telephone encounter Note Spoke to Dr. Greene office and they advised they are waiting for her tox/pain screen to come back before deciding if further prescription can be dispensed. Erlinda Roper MA [facility] 09-06-2024 Telephone encounter Note Pt states that she needs to communicate with her pain management Dr. Greene to confirm its ok to continue keep filling gabapentin. Pt states messages were sent from Dr. Greene on 09/04/24 as well. Please advise, Thank you [facility] 08-21-2024 Evaluation note Diagnosis Stage 3a chronic kidney disease (HCC)- Primary Essential hypertension Unspecified essential hypertension Encounter for long-term (current) use of NSAIDs Encounter for long-term (current) use of non-steroidal anti-inflammatories documented in this encounter [facility]06-06-2025 Instructions* Patient Instructions* Britni Lockwood, RESEARCH INSTRUMENTATION TECHNICIAN.LAST PATTERN GRADER - 08/17/2024 2:50 PM EDT -Labs to be done prior to next visit. -Check home BPs and send in report in 2 weeks via [email or web address]. -Continue to follow with your specialists and PCP as planned -Discussed need for good blood pressure and cholesterol control to prevent disease progression. -Recommend BP goal of 130s/80 or less. Please contact the office if your blood pressure is less than 110/70 or higher than 160/90. -Follow low salt diet. (1/2 tsp salt) <2 grams or 2000mg -Please limit your protein intake to 3 ounces of protein per meal. -Please avoid Advil, Ibuprofen(Motrin), Aleve(Naproxen), Meloxicam(Mobic), diclofenac and other pain/arthritis medications called NSAIDS. It is ok to take acetaminophen (Tylenol) for pain as needed -Please avoid contrast dye with imaging. If a provider wants to order CT or MRI with contrast, please let them know you have decreased kidney function. -Increase activity as tolerated. RTC in 4 months with [facility] Front Office Director Dr. Stone. documented in [facility] History of Present illness Narrative* Britni Lockwood APRN.LAST PATTERN GRADER - 08/17/2024 2:00 PM EDT [facility] SERVICE DATE: 08/17/2024 SERVICE TIME: 2:22 PM CHIEF COMPLAINT: Follow up CKD HPI: Ms. Gant is a 59 year old female who presents for follow up CKD 3A with PMHx of VETO on CPAP, A-fib on carvedilol, IBS-D, GERD r/t Paraesophageal hernia on PPI x 2, and hypothyroidism Since last visit following with PCP for back pain. Has appointment with pain management. Feels sore today BPs at home not taken. Weights: 4 lbs weight loss in the last 2 days. Has lost 40 lbs in a year. Needs to be at 190 lbs for hiatal hernia repair. Goal weight is 140 lbs. Avoids NSAIDS now. Salts some foods. Will try to reduce potatoes. CPAP is broken - following with sleep medicine. Assessment/Plan from [facility] with me on 04/13/24. -Reduce/STOP Voltaren -Discuss pain options with Orthopedics -Labs to be done today and prior to next visit. has a current medication list which includes the following prescription(s): topiramate, gabapentin,albuterol hfa, fluticasone, fluticasone, hydrocortisone, carvedilol, dicyclomine, torsemide, CPAP, cholestyramine-sucrose, sucralfate, cholecalciferol, creon, hyoscyamine, pantoprazole dr, omeprazole, levothyroxine, colestipol, spironolactone, olopatadine, eye itch relief, nitroglycerin sublingual,aspirin, enteric coated, atorvastatin, and potassium chloride sr. ALLERGIES: ALLERGIES Allergen Reactions Iv Contrast [Iodine] Swelling Seasonal Allergies Intolerance PHYSICAL EXAM: BP 104/71 (BP Site: Left Arm, BP Position: Sitting, BP Cuff Size: Large Adult) Pulse 60 Wt 98 kg (216 lb 0.8 oz) LMP (LMP Unknown) BMI 38.89 kg/m BP - standardized method Pulse 1 BP #1: 96/64 2 BP #2 : 106/70 3 BP #3 : 109/79 Average Average BP: 104/71 Average Pulse: 60 beats/min BP cuff location BP cuff location: Left upper arm BP cuff size BP cuff size: large adult Constitutional: NAD HEENT: PERRL, EOMI, MMM, trachea is midline CV: RRR, Normal s1 and s2 Lungs: Clear to auscultation bilaterally Abd: Soft, nontender, non distended Neurologic: Normal balance, Normal Gait. A&Ox3 Psych: Normal mood and affect Extremities: Trace edema LLE DATA: Diagnostic tests reviewed for today's visit: Sodium (mmol/L) Date Value 07/26/2024 141 04/13/2024 143 01/20/2024 141 Creatinine (mg/dL) Date Value 07/26/2024 1.25 (H) 04/13/2024 1.25 (H) 01/20/2024 1.33 (H) Vitamin D 25 Hydroxy (ng/mL) Date Value 07/26/2024 67.8 PTH, Intact (pg/mL) Date Value 07/26/2024 93 (H) 04/13/2024 179 (H) 01/04/2024 131 (H) Potassium (mmol/L) Date Value 07/26/2024 3.8 04/13/2024 4.1 01/20/2024 3.8 Phosphorus (mg/dL) Date Value 07/26/2024 3.2 04/13/2024 3.4 10/07/2023 2.9 Calcium, Total (mg/dL) Date Value 07/26/2024 9.2 04/13/2024 9.6 01/20/2024 9.7 Hemoglobin (g/dL) Date Value 07/26/2024 12.8 04/13/2024 13.8 07/13/2023 14.4 Hemoglobin A1C (%) Date Value 07/26/2024 5.0 07/13/2023 5.3 11/17/2022 5.0 Albumin/Creat Ratio (mg/g) Date Value 07/13/2023 <11 01/27/2023 <19 Protein/Creat Ratio (mg/mg) Date Value 04/13/2024 0.13 07/13/2023 0.10 01/27/2023 0.08 Laboratory work up, imaging and other tests were reviewed ASSESSMENT: 59 year old female who presents with PMHx with CKD 3, VETO on CPAP, GERD, IBS and Obesity. CKD Stage 3B, non proteinuric, related to right renal atrophy, with last SCR 1.2. Risk progression includes continued NSAID use, PPI use and now with BMI now decreased to 38. Kidney sizes: - Ultrasound done 11/2022: - [...] - Meds: Carvedilol 3.125 BID, Torsemide 20 mg BID, Spironolactone 25 daily - Trace LLE edema Metabolic/electrolytes: - Lytes stable on K supplement 10 meq daily Anemia: - Hgb: 12.8 - Stable - Trending for EARNEST/iron needs. Metabolic Bone: - Stable CV/Lipids: - ASA, statin PLAN: -Labs to be done prior to next visit. -Check home BPs and send in report in 2 weeks via [employer]. -Continue to follow with your specialists and PCP as planned -Discussed need for good blood pressure and cholesterol control to prevent disease progression. -Recommend BP goal of 130s/80 or less. Please contact the office if your blood pressure is less than 110/70 or higher than 160/90. -Follow low salt diet. (1/2 tsp salt) <2 grams or 2000mg -Please limit your protein intake to 3 ounces of protein per meal. -Please avoid Advil, Ibuprofen(Motrin), Aleve(Naproxen), Meloxicam(Mobic), diclofenac and other pain/arthritis medications called NSAIDS. It is ok to take acetaminophen (Tylenol) for pain as needed -Please avoid contrast dye with imaging. If a provider wants to order CT or MRI with contrast, please let them know you have decreased kidney function. -Increase activity as tolerated. RTC in 4 months [facility] Front Office Director with Dr. Stone. I spent a total of 55 minutes on the date of the service which included preparing to see the patient, [id number] patient care, completing clinical documentation, obtaining and/or reviewing separately obtained history, performing a medically appropriate examination, counseling and educating the pat ient/family/caregiver, ordering medications, tests, or procedures, communicating with other HCPs (not separately reported), independently interpreting results (not separately reported), and communicating results to the patient/family/caregiver. All documentation from previous visit was copied and pasted, documentation has been reviewed and edited as necessary for today's visit. SIGNATURE: Britni Lockwood APRN.CNP PATIENT NAME: Joellen Gant DATE: August 17, 2024 TIME: 2:22 PM OFFICE NUMBER: [phone] CC: PRIMARY CARE PHYSICIAN: Sam Null MD documented in this encounterOur [facility]06-[facility]25 NoteHNO ID: [id number] Author: BRITNI LOCKWOOD APRN.CNP Service: ? Author Type: Nurse Practitioner Type: Progress Notes Filed: 08/21/2024 13:59 Note Text: [facility] SERVICE DATE: 08/17/2024 SERVICE TIME: 2:22 PM CHIEF COMPLAINT: Follow up CKD HPI: Ms. Gant is a 59 year old female who presents for follow up CKD 3A with PMHx of VETO on CPAP, A-fib on carvedilol, IBS-D, GERD r/t Paraesophageal hernia on PPI x 2, and hypothyroidism Since last visit following with PCP for back pain. Has appointment with pain management. Feels sore today BPs at home not taken. Weights: 4 lbs weight loss in the last 2 days. Has lost 40 lbs in a year. Needs to be at 190 lbs for hiatal hernia repair. Goal weight is 140 lbs. Avoids NSAIDS now. Salts some foods. Will try to reduce potatoes. CPAP is broken - following with sleep medicine. Assessment/Plan from [facility] with me on 04/13/24. -Reduce/STOP Voltaren -Discuss pain options with Orthopedics -Labs to be done today and prior to next visit. has a current medication list which includes the following prescription(s): topiramate, gabapentin, albuterol hfa, fluticasone, fluticasone, hydrocortisone, carvedilol, dicyclomine, torsemide, CPAP, cholestyramine-sucrose, sucralfate, cholecalciferol, creon, hyoscyamine, pantoprazole dr, omeprazole, levothyroxine, colestipol, spironolactone, olopatadine, eye itch relief, nitroglycerin sublingual, aspirin, enteric coated, atorvastatin, and potassium chloride sr. ALLERGIES: ALLERGIES Allergen Reactions Iv Contrast [Iodine] Swelling Seasonal Allergies Intolerance PHYSICAL EXAM: BP 104/71 (BP Site: Left Arm, BP Position: Sitting, BP Cuff Size: Large Adult) Pulse 60 Wt 98 kg (216 lb 0.8 oz) LMP (LMP Unknown) BMI 38.89 kg/m? BP - standardized method Pulse 1 BP #1: 96/64 2 BP #2 : 106/70 3 BP #3 : 109/79 Average Average BP: 104/71 Average Pulse: 60 beats/min BP cuff location BP cuff location: Left upper arm BP cuff size BP cuff size: large adult Constitutional: NAD HEENT: PERRL, EOMI, MMM, trachea is midline CV: RRR, Normal s1 and s2 Lungs: Clear to auscultation bilaterally Abd: Soft, nontender, non distended Neurologic: Normal balance, Normal Gait. AANDOx3 Psych: Normal mood and affect Extremities: Trace edema LLE DATA: Diagnostic tests reviewed for today's visit: Sodium (mmol/L) Date Value 07/26/2024 141 04/13/2024 143 01/20/2024 141 Creatinine (mg/dL) Date Value 07/26/2024 1.25 (H) 04/13/2024 1.25 (H) 01/20/2024 1.33 (H) Vitamin D 25 Hydroxy (ng/mL) Date Value 07/26/2024 67.8 PTH, Intact (pg/mL) Date Value 07/26/2024 93 (H) 04/13/2024 179 (H) 01/04/2024 131 (H) Potassium (mmol/L) Date Value 07/26/2024 3.8 04/13/2024 4.1 01/20/2024 3.8 Phosphorus (mg/dL) Date Value 07/26/2024 3.2 04/13/2024 3.4 10/07/2023 2.9 Calcium, Total (mg/dL) Date Value 07/26/2024 9.2 04/13/2024 9.6 01/20/2024 9.7 Hemoglobin (g/dL) Date Value 07/26/2024 12.8 04/13/2024 13.8 07/13/2023 14.4 Hemoglobin A1C (%) Date Value 07/26/2024 5.0 07/13/2023 5.3 11/17/2022 5.0 Albumin/Creat Ratio (mg/g) Date Value 07/13/2023 <11 01/27/2023 <19 Protein/Creat Ratio (mg/mg) Date Value 04/13/2024 0.13 07/13/2023 0.10 01/27/2023 0.08 Laboratory work up, imaging and other tests were reviewed ASSESSMENT: 59 year old female who presents with PMHx with CKD 3, VETO on CPAP, GERD, IBS and Obesity. CKD Stage 3B, non proteinuric, related to right renal atrophy, with last SCR 1.2. Risk progression includes continued NSAID use, PPI use and now with BMI now decreased to 38. Kidney sizes: - Ultrasound done 11/2022: - [...] - Meds: Carvedilol 3.125 BID, Torsemide 20 mg BID, Spironolactone 25 daily - Trace LLE edema Metabolic/electrolytes: - Lytes stable on K supplement 10 meq daily Anemia: - Hgb: 12.8 - Stable - Trending for EARNEST/iron needs. Metabolic Bone: - Stable CV/Lipids: - ASA, statin PLAN: -Labs to be done prior to next visit. -Check home BPs and send in report in 2 weeks via [email or web address]. -Continue to follow with your specialists and PCP as planned -Discussed need for good blood pressure and cholesterol control to prevent disease progression. -Recommend BP goal of 130s/80 or less. Please contact the office if your blood pressure is less than 110 (more content not included)...[facility]06-04-2025 Telephone encounter Note* Telephone Encounter - Lisbet Loco LPN - 08/15/2024 4:55 PM EDT Patient wants to stop taking topomax. Stating she has no appetite at all and can't live like that. Asking how to ween down. Lisbet Loco LPN [facility]06-04-2025 Miscellaneous Notes* Telephone Encounter - Lsibet Loco LPN - 08/15/2024 4:55 PM EDT Patient wants to stop taking topomax. Stating she has no appetite at all and can't live like that. Asking how to ween down. Lisbet Loco LPN documented in this encounterOur [facility] Of [facility]cy [facility]06-03-2025 NoteHNO ID: [id number] Author: PAMELA LOPEZ, PhD Service: ? Author Type: ? Type: Progress Notes Filed: 11/28/2024 15:46 Note Text: Attestation signed by Pamela Lopez, PhD at 11/28/2024 3:46 PM LICENSED PSYCHOLOGIST NOTE OF PERSONAL INVOLVEMENT IN CARE: I have completed a clinical interview with the patient and selected the test battery to be completed by the assistant refinery operator. I have reviewed the assistant refinery operator?s documentation and verified the tests listed in the note were administered. Any additions or changes are noted in bold/italics. Signature: Pamela Lopez, PhD Date: 11/28/2024 Time: 3:46 PM Joellen Gant, [id number] has completed the following tests in full on today's date: 08/14/24 WRAT-5 Word Reading NAB [place] WAIS-IV RBANS Figure Copy AND Line Orientation HVLT-R BVMT-R FAS/Animals TMT AANDB DKEFS CWI PHQ-9 PAULA-7 DCT [facility]06-03-2025 NoteHNO ID: [id number] Author: PAMELA LOPEZ, PhD Service: ? Author Type: Psychologist Type: Progress Notes Filed: 08/20/2024 15:24 Note Text: [facility] Neuropsychology Consultation Name: Joellen Gant Date of : 1965 Age: [age] year old Date of Evaluation: August 14, 2024 Ms. Gant was seen today for a clinical interview and neuropsychological testing. Follow up visit to discuss the results of the evaluation currently scheduled for 08/29/24 at 3:00 pm. Full report to follow. Pamela Lopez, [facility] History of Present illness Narrative* Pamela Lopez, PhD - 08/14/2024 2:04 PM EDT [facility] Neuropsychology Consultation Name: Joellen Gant Date of : 1965 Age: [age] year old Date of Evaluation: August 14, 2024 Ms. Gant was seen today for a clinical interview and neuropsychological testing. Follow up visit to discuss the results of the evaluation currently scheduled for 08/29/24 at 3:00 pm. Full report to follow. Pamela Lopez, PhD documented in this encounterOur Lady Of [facility]cy [facility]06-02-2025 Evaluation note* Diagnosis Onset Date Resolution Status Admit Date Hypothyroidism (acquired) chronic August 13, 2024 2:29pm Obesity chronic August 13, 2024 2:29pm Abdominal pain acute August 27, 2024 2:07pm Cirrhosis acute August 27 2:07pm GERD (gastroesophageal reflu x disease) chronic August 27, 2024 2:07pm IBS (irritable bowel syndrome) chron ic August 27, 2024 2:07pm [facility] Work Phone: [phone] 632-251706-02-2025 Evaluation note* Diagnosis Onset Date Resolution Status Admit Date Hypothyroidism (acquired) chronic August 13, 2024 2:29pm Obesity chronic August 13, 2024 2:29pm Abdominal pain acute August 27, 2024 2:07pm Cirrhosis acute August 27 2:07pm GERD (gastroesophageal reflux disease) chronic August 27, 2024 2:07pm IBS (irritable bowel syndrome) chronic August 27, 2024 2:07pm Abnormal TSH acute October 29, 2024 3:50pm Chest pain acute October 29, 2 025 3:50pm Preoperative clearance acute Au 2024 3:50pm Chronic kidney disease (CKD) chronic October 29, 2024 3:50pm Dyspnea on exertion chronic 2024 3:50pm History of right and left heart catheterization January 23, 2019October 29, 2024 3:50pm Obesity, morbid, BMI 40.0-49.9 chronic October 29 3:50pm Palpitations chronic October 29, 2024 3:50pm [facility] Work Phone: [phone] 694-742506-02-2025 Evaluation note* Diagnosis Onset Date Resolution Status Admit Date Hypothyroidism (acquired) chronic August 13, 2024 2:29pm Obesity chronic August 13, 2024 2:29pm Abdominal pain acute August 27, 2024 2:07pm Cirrhosis acute August 27 2:07pm GERD (gastroesophageal reflux disease) chronic August 27, 2024 2:07pm IBS (irritable bowel syndrome) chronic August 27, 2024 2:07pm Chest pain acute October 29, 2 025 3:50pm Chronic kidney disease (CKD) chronic October 29, 2024 3:50pm Dyspnea on exertion chronic 2024 3:50pm History of right and left heart catheterization January 23, 2019 chronic October 29, 2024 3:50pm Obesity, morbid, BMI 40.0-49.9 chronic October 29 3:50pm Palpitations chronic October 29, 2024 3:50pm Abnormal TSH deleted October 29, 2024 3:50pm [facility] Work Phone: 1(680) 440-236106-02-2025 Telephone encounter Note* Telephone Encounter - Urszula Rose - 08/13/2024 2:30 PM EDT Placed a reminder call for Neuropsychological testing. Talked to the patient; they confirmed appointment. [facility]06-02-2025 Miscellaneous Notes* Telephone Encounter - Urszula Rose - 08/13/2024 2:30 PM EDT Placed a reminder call for Neuropsychological testing. Talked to the patient; they confirmed appointment. documented in this encounterOur [facility]05-29-2025 Telephone encounter Note * Telephone Encounter - Myriam Freire - 08/09/2024 8:57 AM EDT Patient No Showed appointment. This is the patient's 3rd No Show in the bariatric program. The dates are as follows: 12/13/23, 01/13/24, 08/09/24 Patient information forwarded to Cassie Suh for further review. - Patient is confused as to why her Bariatric appointments are cancelled - patient was under the impression she was still working toward the surgery she needs.- [facility]05-29-2025 Miscellaneous Notes* Telephone Encounter - Myriam Freire - 08/09/2024 8:57 AM EDT Patient No Showed appointment. This is the patient's 3rd No Show in the bariatric program. The dates are as follows: 12/13/23, 01/13/24, 08/09/24 Patient information forwarded to Cassie [facility] for further review. - Patient is confused as to why her Bariatric appointments are cancelled - patient was under the impression she was still working toward the surgery she needs.- documented in this encounterOur Lady Of [facility]cy Hospital05-22-2025 NoteHNO ID: [id number] Author: MARII HERZOG MD Service: ? Author Type: Physician Type: Progress Notes Filed: 08/02/2024 13:37 Note Text: BARIATRIC SURGERY NEW PATIENT CONSULTATION HISTORY AND PHYSICAL Date: August 02, 2024 Time: 1:16 PM Joeleln Gant is a 59 year old year old female with obesity (Body mass index is 39.53 kg/m?.), asthma (inhalers; Flonase), atrial fibrillation (Coreg, ASA), atypical chest pain, bile gastritis, chronic back pain/arthritis, CKD stage 3, hypothyroidism (synthroid), history of tobacco use, IBS, paraesophageal hernia and GERD who presents to the clinic today for consideration of bariatric surgery and to discuss MDT recommendations. Today the patient states that she is very happy with her current dietary changes and all she has learned from the odd piece checker. She has lost 40 pounds since last seeing me in clinic. The patient has been in the bariatric program for greater than 11 months without attaining clearance. She has stated to other staff members multiple times that she will not make dietary changes. She is losing weight, but will not be a bariatric surgery candidate without nutrition clearance. MDT: Concern: Very difficult to have office visit with her due to tangential behavior. When discussing nutrition recommendations, she says "I am not going to change anything". Needs neuropsych testing per psychology. She does not want bariatric surgery but needs PEHR (has lost 38 lb). MDT recommedations: Dr. Herzog has upcoming appointment-speak with her about options, BMI to get under 35 for PEHR Workup: - EGD (07/21/23;Danny): 3 cm paraesophageal [...] left and right heart cath PAST MEDICAL HISTORY Diagnosis Date Acquired hypothyroidism 04/16/[address] Grant Morgan managing Asthma (HCC) 06/13/2008 Atypical chest pain 01/2019 heart cath normal Bile-induced gastritis 04/08/2021 Calcium deposits in tendon and bursa right knee Carpal tunnel syndrome, bilateral 10/16/2015 Chronic cholecystitis 07/22/2020 Chronic midline low back pain without sciatica 07/31/2015 Cirrhosis of liver without ascites, unspecified hepatic cirrhosis type (HCC) 11/21/2023 CKD stage 3a, GFR 45-59 ml/min ([facility]) Colon polyp 07/17/2020 Dermatophytosis of the body Edema 06/13/2008 GERD (gastroesophageal reflux disease) 07/29/2010 Hiatal hernia 07/17/2020 medium sized seen on EGD Infectious mononucleosis Irregular menstrual cycle Irritable bowel syndrome with diarrhea 08/04/2015 Morbid obesity with BMI of 45.0-49.9, adult ([facility]) Obesity, Class III, BMI 40-49.9 (morbid obesity) 07/27/2017 Stage 3a chronic kidney disease (HCC) 04/08/2021 Tobacco use disorder Unspecified hearing loss left ear - wears hearing aid Unspecified hypothyroidism PAST SURGICAL HISTORY Procedure Laterality Date 48 HOUR PH STUDY 07/21/2023 Dr. Herzog COLONOSCOPY SCREENING 07/17/2020 CT BIOPSY LIVER NEEDLE PERC 01/04/2024 EGD WITH BIOPSY(S) 07/17/2020 medium sized hiatal hernia; Dr. Escalnate EGD WITH BIOPSY(S) 07/21/2023 3 cm hiatal [...] Average packs/day: 1 pack/day for 15.0 years ( (more content not included)... [facility]05-22-2025 NoteHNO ID: [id number] Author: SOFÍA MULTANI APRN.ERICK Service: ? Author Type: Nurse Practitioner Type: Progress Notes Filed: 08/02/2024 13:37 Note Text: MDT: Concern: Very difficult to have office visit with her due to tangential behavior. When discussing nutrition recommendations, she says "I am not going to change anything". Needs neuropsych testing per psychology. She does not want bariatric surgery but needs PEHR (has lost 38 lb) MDT recommedations: Dr. Herzog has upcoming appointment-speak with her about options, BMI to get under 35 for PEHR Required monthly visits: 11 of 6 months Patient is interested in: [...] RUQ US: fatty liver Sleep Study: current VETO, not using CPAP- waiting for new machine CXR: per pulmonology clearance EKG: per cardiac clearance H Pylori: pending Labs: complete, abnormal TSH and PTH(follow up with PCP recommended) - recent CBC and BMP reviewed from 06/19 Nicotine use <12 months: No, ordered per insurance - negative Tox screen: ordered per insurance - negative Antiplatelet/anticoagulants: baby asa Immunosuppressive therapy: No Estrogen therapy: No Evaluations: Psychology: ongoing Nutrition: ongoing Education class: ongoing Clearances: -Cardiac (low risk; [facility]- Porfirio Jeff CNP)- need updated -Pulmonary (mod risk; [facility] [facility]- Lani Anderson CNP)- need updated -Nephrology (CKD; Britni Lockwood CNP) -Gastroenterology (moderate, scanned in 02/07) -PCP Risk Calculator: VTE Risk: 0.31 - 0.49% ISS score: not diabetic Adverse Event score: NA Post-op Medications: Extended Lovenox: Yes for RYGB Actigall: No, s/p cholecystectomy PPI: currently taking pantoprazole + omeprazole Tylenol: Yes Zofran: Yes Sofía Multani APRN.[facility]05-16-2025 Telephone encounter Note* Telephone Encounter - Cassie Suh RN - 07/27/2024 9:57 AM EDT MDT: Concern: Very difficult to have office visit with her due to tangential behavior. When discussing nutrition recommendations, she says "I am not going to change anything". Needs neuropsych testing perpsychology. She does not want bariatric surgery but needs PEHR (has lost 38 lb) MDT recommedations: Dr. Herzog has upcoming appointment-speak with her about options, BMI to get under 35 for PEHR Cassie Suh RN, BSN Bariatric Front Office Director [facility]05-16-2025 Miscellaneous Notes* Telephone Encounter - Cassie Suh RN - 07/27/2024 9:57 AM EDT MDT: Concern: Very difficult to have office visit with her due to tangential behavior. When discussing nutrition recommendations, she says "I am not going to change anything". Needs neuropsych testing perpsychology. She does not want bariatric surgery but needs PEHR (has lost 38 lb) MDT recommedations: Dr. Herzog has upcoming appointment-speak with her about options, BMI to get under 35 for PEHR Cassie Suh RN, BSN Bariatric Front Office Director documented in this encounterOur [facility] History of Present illness Narrative* Trudy Cantu Tech - 07/26/2024 6:00 PM EDT Radiology Service Progress Note PATIENT NAME: Joellen Gant DATE OF SERVICE: July 26, 2024 TIME: 6:09 PM PATIENT IDENTITY VERIFICATION COMPLETED USING TWO (2) IDENTIFIERS: Name and Date of confirmedby patient verbally. FALL SCREENING: Has the patient had 2 falls in the last year or 1 fall with injury or currently using an Ambulatory Assistive Device (Walker, Cane, Wheelchair, Crutches, etc.)? No PATIENT GENDER DATA: Assigned female at . status: : No status:NO. PATIENT RELEVANT IMPLANT DATA REVIEWED: Not Applicable PATIENT PRESENTS WITH AN IMPLANTABLE OR ATTACHED STUNT PERFORMER: No RADIOLOGY DEPARTMENT: General X-ray: Exam(s) Completed: Spine X-Ray(s): Lumbar AP / LAT / L5-S1 Pelvis X-Ray: Pelvis with Hip Right PERIPHERAL IV DATA: Not applicable SIGNED BY: Ross Dunaway July 26, 2024 6:09 PM documented in this encounterOur [facility] Of Mercy Hospital05-15-2025 NoteHNO ID: [id number] Author: TRUDY CANTU Tech Service: ? Author Type: Technologist Type: Progress Notes Filed: 07/26/2024 18:38 Note Text: Radiology Service Progress Note PATIENT NAME: Joellen Gant DATE OF SERVICE: July 26, 2024 TIME: 6:09 PM PATIENT IDENTITY VERIFICATION COMPLETED USING TWO (2) IDENTIFIERS: Name and Date of confirmed by patient verbally. FALL SCREENING: Has the patient had 2 falls in the last year or 1 fall with injury or currently using an Ambulatory Assistive Device (Walker, Cane, Wheelchair, Crutches, etc.)? No PATIENT GENDER DATA: Assigned female at . status: : No status: NO. PATIENT RELEVANT IMPLANT DATA REVIEWED: Not Applicable PATIENT PRESENTS WITH AN IMPLANTABLE OR ATTACHED STUNT PERFORMER: No RADIOLOGY DEPARTMENT: General X-ray: Exam(s) Completed: Spine X-Ray(s): Lumbar AP / LAT / L5-S1 Pelvis X-Ray: Pelvis with Hip Right PERIPHERAL IV DATA: Not applicable SIGNED BY: Ross Dunaway July 26, 2024 6:09 [facility]05-15-2025 NoteHNO ID: [id number] Author: SAM NULL MD Service: ? Author Type: Physician Type: Progress Notes Filed: 07/27/2024 10:30 Note Text: This note was created using [email or web address]. Subjective Patient presents with: Discussion Recording using Seed[employer]Spark software for draft documentation of the visit was discussed with the patient/authorized termite control representative; all questions welcomed and answered. Patient/authorized termite control representative agreed to proceed Joellen is a 59-year-old female with a history of sciatica and arthritis, presenting for a referral to a pain specialist and a letter for her service dogs. Joellen reports a significant exacerbation of her chronic sciatica and arthritis pain following a fall approximately 1.5-2 months ago. She tripped over a metal railing in her mother's yard and fell hard onto her right side, resulting in extensive bruising and swelling. She did not seek medical attention at the time but notes that her pain has been "out of control" since the incident. She describes her pain as "200 plus" on a scale of 1-10. Joellen reports that her sciatica pain, previously managed with Blue Emu, lidocaine patches, and Tylenol Arthritis, has worsened and is now unresponsive to these treatments. The pain, initially localized to her left lower back, has spread to her right lower back and radiates down the back of her right leg. She describes the pain as sharp, burning, and accompanied by numbness, tingling, and a "needle-like" sensation. The pain is exacerbated by standing and sitting, and she is unable to find a comfortable position, leading to significant sleep disturbances. She reports severe insomnia and difficulty sleeping due to the pain, despite being on a CPAP machine for sleep apnea. Joellen also reports increased frequency of falls and a sensation of her legs "giving out," though she is unable to specify which leg is affected. She notes that her right knee is swollen and painful, and she has been off her diclofenac medication for almost a week due to concerns about its effects on her kidneys. She denies fever, sweats, changes in bowel movements, or urination. She reports drinking a gallon of water a day and experiencing dry mouth, which she attributes to her medication. Other specialists: 1) Porfirio Jeff CNP, [facility]. 2) Sridhar Byrnes MD, [facility]. 3) Brittany Anderson CNP, [facility]. 4) Grant Morgan MD, [facility]. 5) Britni Lockwood CNP, [facility]. 6) Marii Herzog MD, Bariatric surgery. 7) Lisbet Steel, [facility], Bariatric program. 8) Stephanie George PA-C, [facility]. Review of Systems Constitutional: (-) fever, (-) sweats, (+) weight loss, (+) sleep disturbance Ears/Nose/Mouth/Throat: (+) xerostomia Gastrointestinal: (+) abdominal pain, (-) bowel movement changes Genitourinary: (+) urinary frequency, (-) dysuria Musculoskeletal: (+) low back pain, (+) right knee swelling, (+) right knee pain, (+) sciatica Neurological: (+) numbness, (+) tingling, (+) frequent falls, (+) balance problems, (+) radiating pain to right leg Psychiatric: (+) insomnia ACTIVE PROBLEM LIST Asthma (Hcc) Edema Veto On Cpap Gerd (Gastroesophageal Reflux Disease) Irritable Bowel Syndrome With Diarrhea Obesity, Class Iii, Bmi 40-49.9 (Morbid Obesity) Stage 3a Chronic Kidney Disease (Hcc) Atypical Chest Pain Bile-Induced Gastritis Colon Polyp Acquired Hypothyroidism Eczema No Appetite Cirrhosis of Liver Without Ascites, Unspecified Hepatic Cirrhosis Type (Hcc) Acute Pancreatitis (Hcc) History of Right and Left Heart Catheterization Dietary Counseling and Surveillance Bmi 39.0-39.9,Adult Objective BP 120/72 (BP Site: Left Arm, BP Position: Sitting, BP Cuff Size: Large Adult) Pulse 76 Resp 18 Wt 100 kg (220 lb 7.4 oz) LMP (LMP Unknown) BMI 39.68 kg/m? Physical Exam Constitutional: General: She is in acute distress. Appearance: She is not ill-appearing or diaphoretic. Cardiovascular: Heart sounds: Normal heart sounds. Pulmonary: Breath sounds: Normal breath sounds. Abdominal: Tenderness: There is no abdominal tenderness. Musculoskeletal: Thoracic back: No tenderness. Lumbar back: Spasms and tenderness present. No signs of trauma or bony tenderness. Normal range of motion. Positive right straight leg raise test. Negative left straight leg raise test. Right hip: Tenderness present. No deformity or crepitus. Decreased range of motion. Normal strength. Left hip: Normal. Right knee: Swelling present. Decreased range of motion. Tenderness present. Right lower leg: No edema. Left lower leg: No edema. Neurological: Mental Status: She is alert. Sensory: Sensation is intact. Motor: No weakness. Gait: Gait abnormal. Deep Tendon Reflexes: Reflexes normal. Comments: Antalgic gait, favoring right leg, especially right knee. Heel and toe walk intact. (more content not included)...[facility]05-15-2025 History of Present illness Narrative* Sam Null MD - 07/26/2024 5:05 PM EDT This note was created using Goodpatch. Subjective Patient presents with: Discussion Recording using Seed[employer]Spark software for draft documentation of the visit was discussed with the patient/authorized termite control representative; all questions welcomed and answered. Patient/authorized termite control representative agreed to proceed Joellen is a 59-year-old female with a history of sciatica and arthritis, presenting for a referral toa pain specialist and a letter for her service dogs. Joellen reports a significant exacerbation of her chronic sciatica and arthritis pain following a fallapproximately 1.5-2 months ago. She tripped over a metal railing in her mother's yard and fell hardonto her right side, resulting in extensive bruising and swelling. She did not seek medical attention at the time but notes that her pain has been "out of control" since the incident. She describes her pain as "200 plus" on a scale of 1-10. Joellen reports that her sciatica pain, previously managed with Blue Emu, lidocaine patches, and Tylenol Arthritis, has worsened and is now unresponsive to these treatments. The pain, initially localized to her left lower back, has spread to her right lower back and radiates down the back of her rightleg. She describes the pain as sharp, burning, and accompanied by numbness, tingling, and a "needle-like" sensation. The pain is exacerbated by standing and sitting, and she is unable to find a comfortable position, leading to significant sleep disturbances. She reports severe insomnia and difficulty sleeping due to the pain, despite being on a CPAP machine for sleep apnea. Joellen also reports increased frequency of falls and a sensation of her legs "giving out," though sheis unable to specify which leg is affected. She notes that her right knee is swollen and painful, and she has been off her diclofenac medication for almost a week due to concerns about its effects onher kidneys. She denies fever, sweats, changes in bowel movements, or urination. She reports drinking a gallon of water a day and experiencing dry mouth, which she attributes to her medication. Other specialists: 1) Porfirio Jeff CNP, [facility]. 2) Sridhar Byrnes MD, [facility]. 3) Brittany Anderson CNP, [facility]. 4) Grant Morgan MD, [facility]. 5) Britni Lockwood CNP, [facility] Nep[facility]. 6) Marii Herzog MD, Bariatric surgery. 7) Lisbet Steel, [facility], Bariatric program. 8) Stephanie George PA-C, [facility] orthopedics. Review of Systems Constitutional: (-) fever, (-) sweats, (+) weight loss, (+) sleep disturbance Ears/Nose/Mouth/Throat: (+) xerostomia Gastrointestinal: (+) abdominal pain, (-) bowel movement changes Genitourinary: (+) urinary frequency, (-) dysuria Musculoskeletal: (+) low back pain, (+) right knee swelling, (+) right knee pain, (+) sciatica Neurological: (+) numbness, (+) tingling, (+) frequent falls, (+) balance problems, (+) radiating pain to right leg Psychiatric: (+) insomnia ACTIVE PROBLEM LIST Asthma (Hcc) Edema Veto On Cpap Gerd (Gastroesophageal Reflux Disease) Irritable Bowel Syndrome With Diarrhea Obesity, Class Iii, Bmi 40-49.9 (Morbid Obesity) Stage 3a Chronic Kidney Disease (Hcc) Atypical Chest Pain Bile-Induced Gastritis Colon Polyp Acquired Hypothyroidism Eczema No Appetite Cirrhosis of Liver Without Ascites, Unspecified Hepatic Cirrhosis Type (Hcc) Acute Pancreatitis (Hcc) History of Right and Left Heart Catheterization Dietary Counseling and Surveillance Bmi 39.0-39.9,Adult Objective BP 120/72 (BP Site: Left Arm, BP Position: Sitting, BP Cuff Size: Large Adult) Pulse 76 Resp 18 Wt 100 kg (220 lb 7.4 oz) LMP (LMP Unknown) BMI 39.68 kg/m Physical Exam Constitutional: General: She is in acute distress. Appearance: She is not ill-appearing or diaphoretic. Cardiovascular: Heart sounds: Normal heart sounds. Pulmonary: Breath sounds: Normal breath sounds. Abdominal: Tenderness: There is no abdominal tenderness. Musculoskeletal: Thoracic back: No tenderness. Lumbar back: Spasms and tenderness present. No signs of trauma or bony tenderness. Normal range of motion. Positive right straight leg raise test. Negative left straight leg raise test. Right hip: Tenderness present. No deformity or crepitus. Decreased range of motion. Normal strength. Left hip: Normal. Right knee: Swelling present. Decreased range of motion. Tenderness present. Right lower leg: No edema. Left lower leg: No edema. Neurological: Mental Status: She is alert. Sensory: Sensation is intact. Motor: No weakness. Gait: Gait abnormal. Deep Tendon Reflexes: Reflexes normal. Comments: Antalgic gait, favoring right leg, especially right knee. Heel and toe walk intact. Psychiatric: Attention and Perception: Attention normal. Mood and Affect: Mood is anxious. Speech: Speech is rapid and pressured. Behavior: Behavior is agitated. Assessment and Plan 1. Right-sided low back pain with right-sided sciatica, unspecified chronicity - ICD9: 724.3, ICD10: M54.41 (primary diagnosis) Main request is pain management referral. Her mother sees Dr. Reynoso. - XR LUMBAR GENERAL 3V AP/LAT/L5-S1 - XR HIP GENERAL 3V PELV/AP/LAT RIGHT - CONSULT TO PAIN MGT - GABAPENTIN 300 MG CAPSULE. Start one capsule at bedtime. Discussed medication dosage, usage, goals of therapy, and side effects. Further management per pain management specilalist. 2. Cirrhosis of liver without ascites, unspecified hepatic cirrhosis type (HCC) - ICD9: 571.5, ICD10: K74.60 - Monitored by Dr. Byrnes. - Lab in process. 3. Stage 3a chronic kidney disease (HCC) - ICD9: 585.3, ICD10: N18.31 - eGFR: 49 Due for labs - Diclofenac discontinued. 4. Osteoarthritis of right knee, unspecified osteoarthritis type - ICD9: 715.96, ICD10: M17.11 - Seeing orthopedics. Sam Null MD documented in this encounterOur [facility]05-[facility] Telephone encounter Note * Telephone Encounter - Urszula Rose - 07/18/2024 3:39 PM EDT Called the patient to confirm testing tomorrow. Patient stated there is a lot going on right now and needed to reschedule. Patient is rescheduled. Provider is notified. [facility]05-07-2025 Miscellaneous Notes* Telephone Encounter - Urszula Rose - 07/18/2024 3:39 PM EDT Called the patient to confirm testing tomorrow. Patient stated there is a lot going on right now and needed to reschedule. Patient is rescheduled. Provider is notified. documented in this encounterOur Lady Of [facility]cy [facility]05-06-2025 Telephone encounter Note * Telephone Encounter - Myriam Freire - 07/17/2024 10:10 AM EDT VM received from patient requesting to cancel appointment. This is patient's 2nd time cancelling MMPI Testing. Patient forwarded to Dr. Yung Richards. [facility] for patient to call back to reschedule appointment. [email or web address] message sent to patient. [facility]05-06-2025 Miscellaneous Notes* Telephone Encounter - Myriam Freire - 07/17/2024 10:10 AM EDT VM received from patient requesting to cancel appointment. This is patient's 2nd time cancelling MMPI Testing. Patient forwarded to Dr. Yung Richards. [facility] for patient to call back to reschedule appointment. [email or web address] message sent to patient. documented in this encounterOur Lady Of Mercy Hospital05-06-2025 NotePatient Outreach (INTMWS) TARIQJOELLEN Linares ([id number]) 1965 F CHT Date Time Provider Department 07/17/24 SAM NULL INTMWS During your visit today, we recorded the following information about you: Allergies As of Date: 07/17/2024 Noted Allergy Reaction IV CONTRAST (IODINE) 04/14/2023 7 - Swelling SEASONAL ALLERGIES 04/08/2021 5 - Intolerance Date Reviewed: 07/03/2024 Reviewed by: Sofía Multani APRN.LAST PATTERN GRADER - Fully Assessed Visit Diagnosis:Encounter for screening mammogram for breast cancer [Z12.31] Order(s):MEREDITH SCREENING W YASHIRA [[id number]] Order #: [id number] FUTURE Prescriptions as of 08/17/2024 - topiramate (TOPAMAX) 25 mg tablet Take 2 tablets by mouth once daily. - gabapentin (NEURONTIN) 300 mg capsule Take 1 capsule by mouth daily at bedtime for 30 days. - albuterol HFA (PROAIR HFA) 90 mcg/actuation [...] hands, arms, legs for 1 week.). - carvedilol (COREG) 3.125 mg tablet Take 1 tablet by mouth two times a day. [facility] - dicyclomine (BENTYL) 20 mg tablet Take 1 tablet by mouth three times a day as needed (per [facility]). - torsemide (DEMADEX) 20 mg tablet Take 1 tablet by mouth two times a day. [facility]. - CPAP BiPAP 9/5 cm per [facility]. - cholestyramine-sucrose (QUESTRAN) 4 gram powder TAKE 4 GRAMS BY MOUTH AT BEDTIME. ADMINISTER WITH A MEAL. AVOID O... (REFER TO PRESCRIPTION NOTES). - sucralfate (CARAFATE) 1 gram tablet Take one tablet in the morning and one tablet in the afternoon - cholecalciferol (VITAMIN D3) 50 mcg (2,000 unit) tablet Take 1 tablet by mouth once daily. - CREON 36,000-114,000- 180,000 unit delayed release capsule 1 capsule with meals and at bedtime. 2-3 capsules with meals and 1-2 with snacks - hyoscyamine (LEVSIN) 0.125 mg tablet Take 0.125 mg by mouth every 6 hours as needed. 1-2 tablets four times daily as needed - pantoprazole DR (PROTONIX) 40 mg tablet Take 1 tablet by mouth two times a day. Take on empty stomach, 1/2 hr before meal. - omeprazole (PRILOSEC) 40 mg capsule Take 1 capsule by mouth once daily. - levothyroxine (SYNTHROID) 100 mcg tablet Take 1 tablet by mouth once daily. Per [facility]. - colestipol (COLESTID) 1 gram tablet Take 2 tablets by mouth two times a day. - spironolactone (ALDACTONE) 25 mg tablet Take 1 tablet by mouth every afternoon. Per [facility] - olopatadine (PATANOL) 0.1 % ophthalmic solution - EYE ITCH RELIEF 0.025 % (0.035 %) ophthalmic solution instill 1 drop into both eyes twice a day if needed - nitroglycerin sublingual (NITROQUICK) 0.4 mg SL tablet 0.4 mg. - aspirin, enteric coated (ASPIRIN, ENTERIC COATED) 81 mg EC tablet Take 1 tablet by mouth once daily. - atorvastatin (LIPITOR) 20 mg tablet Take 20 mg by mouth once daily. - potassium chloride SR (MICRO-K) 10 mEq CR capsule Take 1 capsule by mouth once daily. Problem List As Of Date 07/17/2024 Noted Resolved Complete spontaneous without mention o*01/01/2005 [...] gastritis [K29.60] 04/08/2021 Colon polyp [K63.5] 07/17/2020 Acquired hypothyroidism [E03.9] 04/16/2024 Right renal atrophy [N26.1] 01/27/2023 10/14/2023 Eczema [L30.9] 07/15/2023 No appetite [R63.0] 07/15/2023 Cirrhosis of liver without ascites, unspecified*11/21/2023 Acute pancreatitis (HCC) [K85.90] 11/22/2023 History of right and left heart catheterization*01/23/2019 Dietary counseling and surveillance [Z71.3] 06/20/2024 BMI 39.0-39.9,adult [Z68.39] 06/20/2024 Encounter Status:Closed by UMA MENDEZUSER on 08/17/24[facility] 07-03-2024 Note* Addendum Note - Joellen Crowder APRN.CNP - 07/03/2024 4:15 PM EDTAddended by: JOELLEN CROWDER on: 07/03/2024 04:15 PM Modules accepted: Orders [facility]04-22-2025 Miscellaneous Notes* Addendum Note - Joellen Crowder APRN.CNP - 07/03/2024 4:15 PM EDTAddended by: JOELLEN CROWDER on: 07/03/2024 04:15 PM Modules accepted: Orders documented in this encounterOur Lady Of Mercy Hospital04-22-2025 NoteHNO ID: [id number] Author: SOFÍA MULTANI APRN.CNP Service: ? Author Type: Nurse Practitioner Type: Progress Notes Filed: 07/03/2024 15:55 Note Text: BARIATRIC SURGERY CLINIC FOLLOW UP NOTE HPI: Joellen Gant a 59 year old female for presents for medically supervised weight loss treatment of her obesity related co morbidities. This individual presents for month 10 of 6 required visits. Joellen Gant weight calculation has decreased. When discussing nutrition recommendations she states "I am not going to change anything". It was difficult to ask questions and obtain HPI due to patients tangential behavior. Reports having increased LE edema and sciatica pain. She is hoping to get a referral to pain management from her PCP Not using CPAP because her machine broke ; she is waiting for a new machine. HISTORY REVIEWED (electronic chart updated): - medical history - medications - allergies PAST MEDICAL HISTORY Diagnosis Date Acquired hypothyroidism 04/16/[address] Grant Morgan managing Asthma (HCC) 06/13/2008 Atypical chest pain 01/2019 heart cath normal Bile-induced gastritis 04/08/2021 Calcium deposits in tendon and bursa right knee Carpal tunnel syndrome, bilateral 10/16/2015 Chronic cholecystitis 07/22/2020 Chronic midline low back pain without sciatica 07/31/2015 Cirrhosis of liver without ascites, unspecified hepatic cirrhosis type (HCC) 11/21/2023 CKD stage 3a, GFR 45-59 ml/min (HCC) Colon polyp 07/17/2020 Dermatophytosis of the body Edema 06/13/2008 GERD (gastroesophageal reflux disease) 07/29/2010 Hiatal hernia 07/17/2020 medium sized seen on EGD Infectious mononucleosis Irregular menstrual cycle Irritable bowel syndrome with diarrhea 08/04/2015 Morbid obesity with BMI of 45.0-49.9, adult (HCC) Obesity, Class III, BMI 40-49.9 (morbid obesity) 07/27/2017 Stage 3a chronic kidney disease ([facility]) 04/08/2021 Tobacco use disorder Unspecified hearing loss left ear - wears hearing aid Unspecified hypothyroidism Social: Social History Tobacco Use Smoking status: Former Current packs/day: 0.00 Average packs/day: 1 pack/day for 15.0 years (15.0 ttl pk-yrs) Types: Cigarettes Start date: 05/30/1994 Quit date: 05/30/2009 Years since quittin.1 Smokeless tobacco: Never Tobacco comments: started age 16 Vaping Use Vaping status: Never Used Substance Use Topics Alcohol use: Not Currently Drug use: Never Medications: Current Outpatient Medications Medication Sig topiramate (TOPAMAX) 25 mg tablet Take 1 tablet by mouth daily at bedtime. albuterol HFA (PROAIR HFA) [...] of hands, arms, legs for 1 week.). carvedilol (COREG) 3.125 mg tablet Take 1 tablet by mouth two times a day. [facility]. dicyclomine (BENTYL) 20 mg tablet Take 1 tablet by mouth three times a day as needed (per [facility]). torsemide (DEMADEX) 20 mg tablet Take 1 tablet by mouth two times a day. [facility]. CPAP BiPAP 9/5 cm per [facility]. cholestyramine-sucrose (QUESTRAN) 4 gram powder TAKE 4 GRAMS BY MOUTH AT BEDTIME. ADMINISTER WITH A MEAL. AVOID O... (REFER TO PRESCRIPTION NOTES). sucralfate (CARAFATE) 1 gram tablet Take one tablet in the morning and one tablet in the afternoon cholecalciferol (VITAMIN D3) 50 mcg (2,000 unit) tablet Take 1 tablet by mouth once daily. CREON 36,000-114,000- 180,000 unit delayed release capsule 1 capsule with meals and at bedtime. 2-3 capsules with meals and 1-2 with snacks hyoscyamine (LEVSIN) 0.125 mg tablet Take 0.125 mg by mouth every 6 hours as needed. 1-2 tablets four times daily as needed pantoprazole DR (PROTONIX) 40 mg tablet Take 1 tablet by mouth two times a day. Take on empty stomach, 1/2 hr before meal. omeprazole (PRILOSEC) 40 mg capsule Take 1 capsule by mouth once daily. diclofenac, EC, (VOLTAREN) 75 mg EC tablet take 1 tablet by mouth twice a day levothyroxine (SYNTHROID) 100 mcg tablet Take 1 tablet by mouth once daily. Per [facility]. colestipol (COLESTID) 1 gram tablet Take 2 tablets by mouth two times a day. spironolactone (ALDACTONE) 25 mg tablet Take 1 tablet by mouth every afternoon. Per [facility] olopatadine (PATANOL) 0.1 % ophthalmic solution EYE ITCH RELIEF 0.025 % (0.035 %) ophthalmic solution instill 1 drop into both eyes twice a day if needed nitroglycerin sublingual (NITROQUICK) 0.4 mg SL tablet 0.4 mg. aspirin, enteric coated (ASPIRIN, ENTERIC COATED) 81 mg EC tablet (more content not included)...[facility] [facility] History of Present illness Narrative* Sofía Multani APRN.LAST PATTERN GRADER - 07/03/2024 2:40 PM EDT BARIATRIC SURGERY CLINIC FOLLOW UP NOTE HPI: Joellen Gant a 59 year old female for presents for medically supervised weight loss treatment of her obesity related co morbidities. This individual presents for month 10 of 6 required visits.Joellen Gant weight calculation has decreased. When discussing nutrition recommendations she states "I am not going to change anything". It was difficult to ask questions and obtain HPI due to patients tangential behavior. Reports having increased LE edema and sciatica pain. She is hoping to get a referral to pain management from her PCP Not using CPAP because her machine broke ; she is waiting for a new machine. HISTORY REVIEWED (electronic chart updated): - medical history - medications - allergies PAST MEDICAL HISTORY Diagnosis Date Acquired hypothyroidism 04/16/[address] Grant Mrogan managing Asthma (HCC) 06/13/2008 Atypical chest pain 01/2019 heart cath normal Bile-induced gastritis 04/08/2021 Calcium deposits in tendon and bursa right knee Carpal tunnel syndrome, bilateral 10/16/2015 Chronic cholecystitis 07/22/2020 Chronic midline low back pain without sciatica 07/31/2015 Cirrhosis of liver without ascites, unspecified hepatic cirrhosis type (HCC) 11/21/2023 CKD stage 3a, GFR 45-59 ml/min ([facility]) Colon polyp 07/17/2020 Dermatophytosis of the body Edema 06/13/2008 GERD (gastroesophageal reflux disease) 07/29/2010 Hiatal hernia 07/17/2020 medium sized seen on EGD Infectious mononucleosis Irregular menstrual cycle Irritable bowel syndrome with diarrhea 08/04/2015 Morbid obesity with BMI of 45.0-49.9, adult ([facility]) Obesity, Class III, BMI 40-49.9 (morbid obesity) 07/27/2017 Stage 3a chronic kidney disease ([facility]) 04/08/2021 Tobacco use disorder Unspecified hearing loss left ear - wears hearing aid Unspecified hypothyroidism Social: Social History Tobacco Use Smoking status: Former Current packs/day: 0.00 Average packs/day: 1 pack/day for 15.0 years (15.0 ttl pk-yrs) Types: Cigarettes Start date: 05/30/1994 Quit date: 05/30/2009 Years since quittin.1 Smokeless tobacco: Never Tobacco comments: started age 16 Vaping Use Vaping status: Never Used Substance Use Topics Alcohol use: Not Currently Drug use: Never Medications: Current Outpatient Medications Medication Sig topiramate (TOPAMAX) 25 mg tablet Take 1 tablet by mouth daily at bedtime. albuterol HFA (PROAIR HFA) [...] of hands, arms, legs for 1 week.). carvedilol (COREG) 3.125 mg tablet Take 1 tablet by mouth two times a day. [facility]. dicyclomine (BENTYL) 20 mg tablet Take 1 tablet by mouth three times a day as needed (per [facility]). torsemide (DEMADEX) 20 mg tablet Take 1 tablet by mouth two times a day. [facility]. CPAP BiPAP 9/5 cm per [facility]. cholestyramine-sucrose (QUESTRAN) 4 gram powder TAKE 4 GRAMS BY MOUTH AT BEDTIME. ADMINISTER WITH AMEAL. AVOID O... (REFER TO PRESCRIPTION NOTES). sucralfate (CARAFATE) 1 gram tablet Take one tablet in the morning and one tablet in the afternoon cholecalciferol (VITAMIN D3) 50 mcg (2,000 unit) tablet Take 1 tablet by mouth once daily. CREON 36,000-114,000- 180,000 unit delayed release capsule 1 capsule with meals and at bedtime. 2-3capsules with meals and 1-2 with snacks hyoscyamine (LEVSIN) 0.125 mg tablet Take 0.125 mg by mouth every 6 hours as needed. 1-2 tablets four times daily as needed pantoprazole DR (PROTONIX) 40 mg tablet Take 1 tablet by mouth two times a day. Take on empty stomach, 1/2 hr before meal. omeprazole (PRILOSEC) 40 mg capsule Take 1 capsule by mouth once daily. diclofenac, EC, (VOLTAREN) 75 mg EC tablet take 1 tablet by mouth twice a day levothyroxine (SYNTHROID) 100 mcg tablet Take 1 tablet by mouth once daily. Per [facility]. colestipol (COLESTID) 1 gram tablet Take 2 tablets by mouth two times a day. spironolactone (ALDACTONE) 25 mg tablet Take 1 tablet by mouth every afternoon. Per [facility] olopatadine (PATANOL) 0.1 % ophthalmic solution EYE ITCH RELIEF 0.025 % (0.035 %) ophthalmic solution instill 1 drop into both eyes twice a day if needed nitroglycerin sublingual (NITROQUICK) 0.4 mg SL tablet 0.4 mg. aspirin, enteric coated (ASPIRIN, ENTERIC COATED) 81 mg EC tablet Take 1 tablet by mouth once daily. atorvastatin (LIPITOR) 20 mg tablet Take 20 mg by mouth once daily. potassium chloride SR (MICRO-K) 10 mEq CR capsule Take 1 capsule by mouth once daily. No current facility-administered medications for this visit. REVIEW OF SYSTEMS General: No fatigue or fevers HEENT: Negative for frequent or significant headaches, No changes in hearing or vision, no nose bleeds or other nasal problems PAP Therapy: waiting for new CPAP GI:No nausea, vomiting, or diarrhea and +heartburn Muskuloskeletal: back pain Skin: Negative for lesions, rash, and itching Psych: Negative for sleep disturbance, mood disorder and recent psychosocial stressors PHYSICAL EXAMINATION BP 112/68 Pulse 73 Ht 158.8 cm (5' 2.5") Wt 100.6 kg (221 lb 12.8 oz) LMP (LMP Unknown) BMI 39.92 kg/m GENERAL APPEARANCE: Pleasant, interacts appropriately and in no apparent distress. Appropriately groomed, happy, smiling, and interactive SKIN: Skin of normal texture, temperature without rashes/lesions/ulcerations. LUNGS: unlabored on room air negative findings: normal respiratory rate no cough NEURO/PSYCH: Oriented to person, place, time; appropriate insight and judgement. Appropriate affect. Diagnostic Tests Reviewed for Today's Visit Most recent lab and imaging results The plan of treatment for Joellen Gant is Further Work-up: Required monthly visits: 10 of 6 months Patient is interested in: [...] RUQ US: fatty liver Sleep Study: current VETO, not using CPAP- waiting for new machine CXR: per pulmonology clearance EKG: per cardiac clearance H Pylori: pending Labs: need updated - recent CBC and BMP reviewed from 06/19 Nicotine use <12 months: No, ordered per insurance - negative Tox screen: ordered per insurance - negative Antiplatelet/anticoagulants: baby asa Immunosuppressive therapy: No Estrogen therapy: No Evaluations: Psychology: ongoing Nutrition: ongoing Education class: ongoing Clearances: -Cardiac (low risk; [facility]- Porfirio Jeff CNP)- need updated -Pulmonary (mod risk; [facility]- Lani Anderson CNP)- need updated -Nephrology ([facility]; Britni Lockwood CNP) -Gastroenterology (moderate, scanned in 02/07) -PCP Risk Calculator: VTE Risk: 0.31 - 0.49% ISS score: not diabetic Adverse Event score: NA Post-op Medications: Extended Lovenox: Yes for RYGB Actigall: No, s/p cholecystectomy PPI: currently taking pantoprazole + omeprazole Tylenol: Yes Zofran: Yes ASSESSMENT/PLAN: 1. Class 2 obesity with body mass index (BMI) of 39.0 to 39.9 in adult, unspecified obesity type, unspecified whether serious comorbidity present - ICD9: 278.00, V85.39, ICD10: E66.812, Z68.39 (primary diagnosis) Weight decreasing - Behavioral intervention, - Medical nutrition therapy with dietitian, and - Psychology - she met with obesity medicine and was started on topamax - COMPLETE BLOOD COUNT - COMPREHENSIVE METABOLIC PANEL - FERRITIN - FOLATE, SERUM - HEMOGLOBIN A1C - LIPID PANEL, FASTING - IRON AND TIBC - NICOTINE & METAB, UR - PTH INTACT - TOXICOLOGY SCREEN, ROUTINE URINE - THYROID STIMULATING HORMONE - VITAMIN A/RETINOL - VITAMIN B1 (THIAMINE), WHOLE BLOOD - VITAMIN B12 - VITAMIN D 25 HYDROXY - ZINC BLD - HEPATIC FUNCTION PNL 2. VETO (obstructive sleep apnea) - ICD9: 327.23, ICD10: G47.33 - waiting for new CPAP 3. Cirrhosis of liver without ascites, unspecified hepatic cirrhosis type (HCC) - ICD9: 571.5, ICD10: K74.60 - cleared by GI 4. Stage 3a chronic kidney disease (HCC) - ICD9: 585.3, ICD10: N18.31 - requesting nephrology clearance 5. Paraesophageal hernia - ICD9: 553.3, ICD10: K44.9 - planned repair at time of RYGB 6. Leg edema - ICD9: 782.3, ICD10: R60.0 - on torsemide - advised that she follow up with her PCP about ongoing edema Again, it was difficult to as questions and obtain appropriate HPI due to patients tangential behavior. It was difficult to have a conversation and give information to this patient. She is requesting a follow up with Dr. Herzog to discuss her surgical options. Needs updated labs and clearances. Needs neuropsych testing per psychology. Follow up TBD after discussing at [facility]. Sofía Multani APRN.CNP Total time in direct patient contact = 45 min. Greater than 50% of the time was spent in counselingand/or coordination of care. This note was generated using voice recognition technology and may contain grammatical errors. documented in this encounterOur [facility]04-[facility] Procedure not[facility] Pulmonary Services/Neurology [address] [place] [address] MR#: [id number] Acct: [id number] Name: JOELLEN GANT Rep #:[id number] : 1965 59 From: Alfredo Reyes DO Referring Dr: Brittany Anderson SHIPFITTER APPRENTICE SHIPFITTER APPRENTICE-C Status: REG CLI Location: PSN Date: Sex: F C PSN 6 Minute Walk Test 6 Minute Walk Test 6 Minute Walk Test: 6 Minute Walk Test PSN:6-Minute Walk Test Start: 06/19/24 14:08 Freq: Status: Active Protocol: [id number] Document 06/19/24 13:45 AEH (Rec: 06/19/24 14:13 AEH [id number]) 6 Minute Walk Test Date Performed 06/19/24 Time Performed 13:45 Height 5 ft 6 in Weight: 217 lb Weight in Pounds [address]: Maru Assistive device None used: Pre-test Oxygen Delivery Room Air Method Pulse Ox (%) 99 Pulse Rate (60-100 62 beats/min) Dyspnea Young Scale ( 0.5 0-10) Exertion Young Scale 6 (6-20) 1st minute Oxygen Delivery Room Air Method Pulse Ox (%) 99 Pulse Rate (60-100 84 beats/min) 2nd minute Oxygen Delivery Room Air Method Pulse Ox (%) 99 Pulse Rate (60-100 83 beats/min) 3rd minute Oxygen Delivery Room Air Method Pulse Ox (%) 98 Pulse Rate (60-100 89 beats/min) Number of Rests 1 Taken Reported Symptoms Dizziness 4th minute Oxygen Delivery Room Air Method Pulse Ox (%) 98 Pulse Rate (60-100 79 beats/min) 5th minute Oxygen Delivery Room Air Method Pulse Ox (%) 95 Pulse Rate (60-100 86 beats/min) 6th minute Oxygen Delivery Room Air Method Pulse Ox (%) 97 Pulse Rate (60-100 92 beats/min) Dyspnea Young Scale ( 2 0-10) Exertion Young Scale 13 (6-20) Post-test Oxygen Delivery Room Air Method Pulse Ox (%) 98 Pulse Rate (60-100 71 beats/min) Full Laps Walked 12 Partial Lap, Number 38 of Tiles Walked Total Distance 746 Walked (ft) 06/19/24 14:12 Cardiopulmonary Services by Kerrie Tucker Three minutes into walk pt rest for approximately 30 seconds due to feeling lightheaded. Initialized on 06/19/24 14:12 - END OF NOTE Interpretation Interpretation: The patient ambulated 746 feet over the course of 6 minutes beginning on room air without assistivedevices. Pretesting oxygen saturation was noted to be 99%on room air. With ambulation, the george oxygen saturation was 95%. There was no significant exertional oxygen desaturation. Recommendations Recommendations: There is no indication for the use of supplemental oxygen at this time. 06/25/24 1123 O> Date _ Alfredo Reyes DO CC: ~ Date Dictated: 06/25/24 1122 Date Transcribed: 06/25/24 1122 Climatologist: Dr. Alfredo Reyes DO Signed [facility]04-09-2025 Instructions* Patient Instructions* Joellen Crowder APRN.LAST PATTERN GRADER - 06/20/2024 2:32 PM EDT Images from the original note were not included. Dear Ms. Gant It was a pleasure to care for you today: Here are today's highlights: Nutrition: Continue recommendations per Bariatric Surgery team Work on food journal consistent meals (5-6 small meals per day), meeting 48-60g protein/64 oz fl 5-7 days per week, tracking via food journal 5-7 days per week Water 60-80 ounces daily Activity: Chair exercises stretching Medications: begin Topamax 25 mg tablet off label use TOPIRAMATE -- Take one tablet (25mg) every night -- Please see the handout to review the potential side effects and to explain this further -- Please let me know if you experience any changes in your vision, worsening depression or mood problems, or an increase in suicidal thoughts or behaviors. --This medication should NOT be combined with alcohol. Risks of drinking alcohol while taking this medication include mental and psychological side effects, including confusion, dizziness, drowsiness, and depression. -- There is an increased risk for oral clefts when topiramate is used in the first trimester of . -- There is a possible decrease in contraceptive efficacy when using estrogen- containing control with topiramate, please use a back up form of control such as condoms and monitor for throughout treatment. -- If you decide that you would like to get or if you have any of these side effects please let me know and we can safely discontinue the medication. - If you are on loop diuretic or thiazide diuretic we will want to monitor your potassium level, especially if you have a history of low potassium. - It is important to taper off of this medication when we finished with treatment, typically decreasing the dose 25 mg a week. Stopping Topiramate abruptly can cause irritability, anxiety and difficulty concentrating. -- The exact mechanism of topiramate on energy balance regulation is not clearly understood. Topiramate affects body mass index, fasting kkhgpex-bi-kteevvq ratio, and serum leptin and cortisol levels. It has shown to improve hypothalamic insulin and leptin signaling and action and reduce obesity inmice. These changes may be colin factors in weight loss due to topiramate. Topiramate (toe pyre a mate) What are the common names? Topamax Why is this medication prescribed? Topiramate is an anti-epileptic medications which has been approved by the FDA for patients 10 years of age or older for treatment of seizures. However, topiramate also has other uses such as the treatment of migraines. It also causes decrease in appetite and weight loss. The mechanism of weight loss is thought to be through inhibition of mitochondrial enzymes involved in energy expenditure and metabolism. Topiramate may work by helping you feel less hungry, less driven to eat, more satisfied with less food. What special precautions should I follow? Before having topiramate prescribed, tell your doctor and pharmacist: If you have allergies to any component of topiramate If you are , plan to become , are breast-feeding, or if you become while taking topiramate What are the warnings and precautions for this medication? Immediately discontinue the medicine and seek medical help if you have severe cognitive/neuropsychiatric adverse symptoms or eye symptoms. Cognitive/neuropsychiatric adverse events: symptoms may include confusion, psychomotor slowing, difficulty with concentration/attention, difficulty with memory, speech or language problems, particularily word-finding difficulties, somnolence or fatigue Acute myopia and secondary angle closure glaucoma, usually within 1 month of starting treatment: symptoms may include blurred vision, redness and/or pain in the eye Oligohydrosis (decrease sweating) and hyperthermia (elevation in body temperature) Increase in suicidal behavior or ideation Metabolic acidosis, non-gap hyperchloremic (decreased serum bicarbonate below normal levels) resulting in hyperventilation or fatigue Kidney stones Paresthesias (numbness or tingling in hands or feet) Ataxia Dizziness Increase in urination frequency Drug interactions. Use of monamine oxidase inhibitors (MAOI s), valproic acid, Caution use with dehydration or diarrheal illness, hepatic or renal impairment In case of emergency/overdose In case of overdose, call your local poison control center at or call local emergency services at 261. What other information should I know? Keep all appointments with your doctor and the laboratory. Do not let anyone else take your medication. Topiramate use needs to be monitored closely. Prescriptions may be refilled only a limited number of times. Keep a written list of all of your prescription and nonprescription (kset-ddf-uoxhige) medicines, in addition to vitamins, minerals, or other dietary supplements. How should I monitor while on this medication? Your doctor will check your baseline kidney function and electrolytes prior to starting this medication, then periodically. Continue to improve your dietary and physical activity habits as the combination works best while on this medication. Start out by taking the medication at bedtime as it can cause fatigue and sleepiness. Be sure to eat regular meals. Less hunger does not make it appropriate to skip meals. Make sure to have an eye exam, including the pressure in your eyes (intra-ocular pressure), once a year. What should I do if I forget a dose? Skip the missed dose and continue your regular dosing schedule the next day. Do not take a double dose to make up for a missed one. Sources Pubmed Health: http://www.ncbi.nlm.nih.gov/pubmedhealth/DZI1520133/ Drugs.com http://www.drugs.com/pro/topiramate.html documented in this encounterOur Lady Of Mercy [facility]04-09-2025 NoteHNO ID: [id number] Author: JOELLEN CROWDER APRN.CNP Service: ? Author Type: Nurse Practitioner Type: Progress Notes Filed: 06/22/2024 20:28 Note Text: BMI Obesity Medicine Consult This Team Access Model visit is a virtual visit. It required patient-provider interaction for the medical decision making as documented below. Consent was obtained to complete today's distance health visit. I have communicated my name and active licensure. The patient's identity and physical location were verified at the time of this visit. Either the patient or their legal termite control representative has been informed of the risks and benefits of -- and alternatives to -- treatment through a remote evaluation and consents to proceed with the evaluation remotely. 06/20/[address] Sam Null MD ref. provider found for an opinion regarding Obesity. My final recommendations will be communicated back to the requesting physician by way of shared Medical record or letter to requesting physician via [place] mail. Patient HPI Summary: Joellen Gant is a 59 year old female with obesity who presents to the [facility] [place] for an initial evaluation of her obesity and PMH of Atypical chest pain, asthma, obstructive sleep apnea on CPAP, GERD, bile induced gastritis, colon polyps, ever without ascites unspecific hepatic cirrhosis type, stage III chronic kidney disease, acquired hypothyroidism, eczema, is interested in behavioral , pharmacological, and non-surgical weight loss approaches. Weight History: She reports a family history of obesity maternal side of family and childhood onset weight gain. She states her weight gain is related to the following factors, including post menopausal, prednisone in past, smoking cessation, stress, sedentary role, highest weight, 300 lbs, lowest last 5 years 217 lbs. . Overall goal: 157 lbs lose approximately 60-80 lbs for hiatal hernia repair Today's weight: 217 lbs Bariatric surgery discussion: patient working with bariatric surgery team: Primary reason for wanting obesity treatment : patient currently working with Bariatric Team and working towards recommendations for gastric bypass with PEHR , Grade IV (no fold, wide open lumen, hiatal hernia present). - 3 cm hiatal hernia. Biopsied the gastric antrum. - Normal ampulla, duodenal bulb, first portion of the duodenum, second portion of the duodenum and third portion of the duodenum. Weight Graph: (please see graph scanned in chart) Medications: No weight loss medication Diet: Food preparation and grocery shopping: patient Where do you shop: [employer] Quality of diet: 24hr recall suggests healthy diet. Characterization of diet:Unstructured and skip meals. Chili Pepper Grinder of impaired eating habits:denies Eating Disorder no Daily work shift: Meals: Cannot eat full meal Small every few hours Cheese, mosotho yogurt Fruits /vegetables [place] Peas Applesauce Fruit cocktail Apples Snacks: Beverages: Water: gallon Soda: Coffee/tea: Energy drinks: Juice: on occasion Milk: Alcohol: no Diet History: Past weight loss attempts? self-directed and dietitian. Exercise: Regular exercise: some walking Strength/resistance exercise:No Barriers to regular exercise? Arthritis in knee and back Work-related activity:Sedentary. ?Sleep: Duration: 4 hours. VETO YES ; CPAP Bi Pap Quality:poor, Numerous awakenings:Sleep-wake cycle disruption:Yes insomnia ??Stress: Marked, Cause:Financial and Personal Obesity Related Comorbidities: Prior Weight Loss Surgery:No ACTIVE PROBLEM LIST Asthma (Hcc) Edema Veto On Cpap Gerd (Gastroesophageal Reflux Disease) Irritable Bowel Syndrome With Diarrhea Obesity, Class Iii, Bmi 40-49.9 (Morbid Obesity) (Hcc) Stage 3a Chronic Kidney Disease (Hcc) Atypical Chest Pain Bile-Induced Gastritis Colon Polyp Acquired Hypothyroidism Eczema No Appetite Cirrhosis of Liver Without Ascites, Unspecified Hepatic Cirrhosis Type (Hcc) PAST SURGICAL HISTORY Procedure Laterality Date 48 HOUR PH STUDY 07/21/2023 Dr. Herzog COLONOSCOPY SCREENING 07/17/2020 CT BIOPSY LIVER NEEDLE PERC 01/04/2024 EGD WITH BIOPSY(S) 07/17/2020 medium sized hiatal hernia; Dr. Escalante EGD WITH BIOPSY(S) 07/21/2023 3 cm hiatal hernia; Dr. Herzog ESOPHAGEAL MANOMETRY 07/21/2023 Dr. Herzog LAPS SURG CHOLECYSTECTOMY W/CHOLANGIOGRAPHY 07/22/2020 [facility] LEFT HEART CATH,PERCUTANEOUS 01/23/2019 L AND R heart catheterization vamshi. 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 It required patient-provider interaction for the medical decision making as documented below. Consent was obtained to complete today's [employer]. I have communicated my name and active licensure. The patient's identity and physical location wereverified at the time of this visit. Either the patient or their legal termite control representative has been informed of the risks and benefits of -- and alternatives to -- treatment through a remote evaluation andconsents to proceed with the evaluation remotely. 06/20/[address] Sam Null MD ref. provider found for an opinion regarding Obesity. My final recommendations will be communicated back to the requesting physician by way of sharedMedical record or letter to requesting physician via [place] mail. Patient HPI Summary: Joellen Gant is a 59 year old female with obesity who presents to the [facility] [place] for an initial evaluation of her obesity and PMH of Atypical chest pain, asthma, obstructive sleep apnea on CPAP, GERD, bile induced gastritis, colon polyps, everwithout ascites unspecific hepatic cirrhosis type, stage III chronic kidney disease, acquired hypothyroidism, eczema, is interested in behavioral , pharmacological, and non-surgical weight loss approaches. Weight History: She reports a family history of obesity maternal side of family and childhood onset weight gain. She states her weight gain is related to the following factors, including post menopausal, prednisone in past, smoking cessation, stress, sedentary role, highest weight, 300 lbs, lowest last 5 years 217lbs. . Overall goal: 157 lbs lose approximately 60-80 lbs for hiatal hernia repair Today's weight: 217 lbs Bariatric surgery discussion: patient working with bariatric surgery team: Primary reason for wanting obesity treatment : patient currently working with Bariatric Team and working towards recommendations for gastric bypass with PEHR , Grade IV (no fold, wide open lumen, hiatal hernia present). - 3 cm hiatal hernia. Biopsied the gastric antrum. - Normal ampulla, duodenal bulb, first portion of the duodenum, second portion of the duodenum and third portion of the duodenum. Weight Graph: (please see graph scanned in chart) Medications: No weight loss medication Diet: Food preparation and grocery shopping: patient Where do you shop: [employer] Quality of diet: 24hr recall suggests healthy diet. Characterization of diet:Unstructured and skip meals. Chili Pepper Grinder of impaired eating habits:denies Eating Disorder no Daily work shift: Meals: Cannot eat full meal Small every few hours Cheese, mosotho yogurt Fruits /vegetables [place] Peas Applesauce Fruit cocktail Apples Snacks: Beverages: Water: gallon Soda: Coffee/tea: Energy drinks: Juice: on occasion Milk: Alcohol: no Diet History: Past weight loss attempts? self-directed and dietitian. Exercise: Regular exercise: some walking Strength/resistance exercise:No Barriers to regular exercise? Arthritis in knee and back Work-related activity:Sedentary. ?Sleep: Duration: 4 hours. VETO YES ; CPAP Bi Pap Quality:poor, Numerous awakenings:Sleep-wake cycle disruption:Yes insomnia ??Stress: Marked, Cause:Financial and Personal Obesity Related Comorbidities: Prior Weight Loss Surgery:No ACTIVE PROBLEM LIST Asthma (Hcc) Edema Veto On Cpap Gerd (Gastroesophageal Reflux Disease) Irritable Bowel Syndrome With Diarrhea Obesity, Class Iii, Bmi 40-49.9 (Morbid Obesity) (Hcc) Stage 3a Chronic Kidney Disease (Hcc) Atypical Chest Pain Bile-Induced Gastritis Colon Polyp Acquired Hypothyroidism Eczema No Appetite Cirrhosis of Liver Without Ascites, Unspecified Hepatic Cirrhosis Type (Hcc) PAST SURGICAL HISTORY Procedure Laterality Date 48 HOUR PH STUDY 07/21/2023 Dr. Herzog COLONOSCOPY SCREENING 07/17/2020 CT BIOPSY LIVER NEEDLE PERC 01/04/2024 EGD WITH BIOPSY(S) 07/17/2020 medium sized hiatal hernia; Dr. Escalante EGD WITH BIOPSY(S) 07/21/2023 3 cm hiatal hernia; Dr. Herzog ESOPHAGEAL MANOMETRY 07/21/2023 Dr. Herzog LAPS SURG CHOLECYSTECTOMY W/CHOLANGIOGRAPHY 07/22/2020 [facility] LEFT HEART CATH,PERCUTANEOUS 01/23/2019 L & R heart catheterization vamshi. 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 MSK: Joint Pain:Yes : Nephrolithiasis:No; Stress incontinence:Yes Symptoms of PCOS(women):Yes thyroid disorder and Steroids for Chronic Problems NEURO: Migraines/MIDDLETON:No; H/o seizures: No Glaucoma:No; Cataracts Yes no surgery needs to have Symptoms of pseudotumor cerebri:No Cardiac: Yes, GI: Yes, Thyroid: Yes, Vision: Yes, and Neuro: Yes Psychiatric History:denies Substance use disorder: denies Medical Marijuana: denies Recreational marijuana: denies Tobacco: quit 2009 1-2 packs per day, 20 years Vaping: no Family History Problem Relation Age of Onset Diabetes Maternal Grandmother Hypertension Brother Hypertension Sister Hypertension Mother Hypertension Father Seizures Sister Seizures Brother Cancer Father brain PREV: PAP Not UTD, Mammogram Not UTD and Colonoscopy UTD Social History Social History Tobacco Use Smoking status: Former Current packs/day: 0.00 Average packs/day: 1 pack/day for 15.0 years (15.0 ttl pk-yrs) Types: Cigarettes Start date: 05/30/1994 Quit date: 05/30/2009 Years since quittin.0 Smokeless tobacco: Never Tobacco comments: started age 16 Vaping Use Vaping status: Never Used Substance Use Topics Alcohol use: Not Currently Drug use: Never Occupation: on disability PE-Virtual visit Alert and oriented x 3 Appropriate Ht 158.8 cm (5' 2.5") Wt 98.4 kg (217 lb) LMP (LMP Unknown) BMI 39.06 kg/m Results: reviewed with the patient Appointment on 04/13/2024 Component Date Value Ref Range Status Albumin 04/13/2024 4.4 3.9 - 4.9 g/dL Final Calcium, Total 04/13/2024 9.6 8.5 - 10.2 mg/dL Final Phosphorus 04/13/2024 3.4 2.7 - 4.8 mg/dL Final Glucose 04/13/2024 91 74 - 99 mg/dL Final BUN 04/13/2024 22 (H) 7 - 21 mg/dL Final Creatinine 04/13/2024 1.25 (H) 0.58 - 0.96 mg/dL Final Sodium 04/13/2024 143 136 - 144 mmol/L Final Potassium 04/13/2024 4.1 3.7 - 5.1 mmol/L Final Chloride 04/13/2024 100 98 - 107 mmol/L Final CO2 04/13/2024 28 22 - 30 mmol/L Final Anion Gap 04/13/2024 15 8 - 15 mmol/L Final Estimated Glomerular Filtration Ra* 04/13/2024 49 (L) >=60 mL/min/1.73m Final PTH, Intact 04/13/2024 179 (H) 15 - 65 pg/mL Final WBC 04/13/2024 8.67 3.70 - 11.00 k/uL Final RBC 04/13/2024 4.78 3.90 - 5.20 m/uL Final Hemoglobin 04/13/2024 13.8 11.5 - 15.5 g/dL Final Hematocrit 04/13/2024 41.4 36.0 - 46.0 % Final MCV 04/13/2024 86.6 80.0 - 100.0 fL Final MCH 04/13/2024 28.9 26.0 - 34.0 pg Final MCHC 04/13/2024 33.3 30.5 - 36.0 g/dL Final RDW-CV 04/13/2024 14.6 11.5 - 15.0 % Final Platelet Count 04/13/2024 210 150 - 400 k/uL Final MPV 04/13/2024 10.9 9.0 - 12.7 fL Final Absolute nRBC 04/13/2024 <0.01 <0.01 k/uL Final Protein, Urine Random 04/13/2024 5 0 - 20 mg/dL Final Creatinine, Ur Random (UCRR) 04/13/2024 37.9 20.0 - 300.0 mg/dL Final Protein/Creat Ratio 04/13/2024 0.13 <0.15 mg/mg Final Impression: Joellen Gant is a 59 year old female with a diagnosis of Class III obesity (Body mass index is 39.06 kg/m .) who has early onset obesity with gradual weight gain despite several weight loss attempts. The causes of her obesity are multifactorial, biological, psychological and social and environmental. Specific factors include a genetic component related to a strong family of obesity, irregular eating patterns , suboptimal physical activity, onset of menopause, poor sleep quality, and smoking cessation. She has several weight-related medical comorbidities which increase her cardiovascular mortality risk. There are additional metabolic obesity complications including metabolic syndrome (hypothyroidism) and elevated LFTs s/o non alcoholic fatty liver disease. History of obstructive sleep apnea. Other medical conditions as above. Regarding her lifestyle, as above, she has several behavioral contributors; her physical activity is suboptimal. Overall, it is clear that her quality of life is severely compromised by her weight. It is likely acombination of weight loss therapies will be needed. She appears motivated today. Assessment and Plan: ASSESSMENT/PLAN: 1. Obesity, Class III, BMI 40-49.9 (morbid obesity) (HCC) - ICD9: 278.01, ICD10: E66.01 (primary diagnosis) Weight decreasing - Behavioral and pharmacological intervention patient is 59-year-old female here for nonsurgical metabolic weight loss management consultation. Patient reports challenges with eating as well as patient has abdominal pain and limited access to healthy options. - Recommend continue following bariatric surgery team for dietary I also discussed with patient available food pantry's and to focus more on fruits vegetables and lean meats encourage patient to continue water 60 to 80 ounces daily strongly recommended food journaling patient reports underlying disability with reading however patient has a pending neuropsych appointment. - encourage patient to increase her cardio to increase her metabolism suggested to patient some chair exercises some stretching - At this time I reviewed several weight loss medications in attempt to assist the patient with herweight her hunger and her appetite and we will consider the following: Topamax 25 mg tablet at bedtime off label use patient is not a candidate for GLP-1 secondary to history of pancreatitis patient is not a candidate for stimulant at this time. Begin with nutrition and increasing activity as well as ordering lab to further stratify risks and overall health status. Discussed with patient setting 3 small goals that are SMART (Specific, Measurable, Achievable, Relevant, and Time- Bound), to be evaluated at her next visit. I reviewed with the patient the pros and cons of taking these medications. In addition discussed with patient to have atleast 60 g of protein daily and at least 60-80 ounces of water daily. We also discussed monitoring blood pressure and reporting anything over 140/90 or greater. Patient verbalized understanding all questions and concerns addressed. 2. Acquired hypothyroidism - ICD9: 244.9, ICD10: E03.9 - Instructed patient on importance of taking on an empty stomach either first thing in the morning or at bedtime. 3. Stage 3a chronic kidney disease (HCC) - ICD9: 585.3, ICD10: N18.31 continue current medication - Counseled on avoiding NSAIDs, adequate hydration - Counseled on low sodium diet 4. Gastroesophageal reflux disease, unspecified whether esophagitis present - ICD9: 530.81, ICD10: K21.9 - Discussed lifestyle modifications including losing weight, limiting caffeine, no meals three hours before sleep, and head of bed elevation 5. Cirrhosis of liver without ascites, unspecified hepatic cirrhosis type (HCC) - ICD9: 571.5, ICD10: K74.60 continue follow-up with hepatology 6. VETO on CPAP - ICD9: 327.23, ICD10: G47.33 continue follow-up with pulmonary medicine 7. Dietary counseling and surveillance - ICD9: V65.3, ICD10: Z71.3 Reviewed principles of energy metabolism caloric intake and expenditure and rationale for treatmentprogram. Also reinforced need for reduced calorie low-fat nutrition and increase physical activity. 8. BMI 39.0-39.9,adult - ICD9: V85.39, ICD10: Z68.39 today's weight decreased pharmacological behavioral intervention Joellen Crowder APRN.LAST PATTERN GRADER Plan: -- Based on the severity and resistance of the obesity to more conservative weight loss approaches,I believe a open to all options intervention is the best and most appropriate extermination inspector therapeuticoption. -- We discussed several strategies to track food intake and increase mindfulness around eating. Shewas counseled on Food records, Meal replacements, Time restricted feeding, Intermittent fasting, Low carbohydrate diet, and Ketogenic diet -- Encouraged the patient to improve her physical activity. Although cardiovascular exercise is most beneficial for weight loss initially, we discussed healthy muscle from a combination of resistancetraining and cardiovascular exercise is the best usp plan. An overall goal of 200 minutes perweek of exercise has been effective in weight loss and maintenance. -- follow-up visit for management of above interventions 5A's- Assess: I assessed behavioral health risk/factors affecting --- Asked about/assess behavioral health risk(s) and factors affecting choice of behavior change goals --- somewhat sedentry lifestyle ---?snacking ---Lack of exercise Advise: clear, specific, personalized behavior change advice. ---I gave very clear, specific, and personalized behavior change adviced, including information about personal health harms and benefits. Agree: Patient agrees with selected appropriate treatment goals and methods to change behavior Assist: Provided IBT w self-help, handouts, teaching skills and support Using behavior change techniques with self-help and Counseling in achieving Goals. Also discussed supplementing with adjunctive medical treatments when appropriate. Arrange: follow up scheduled, handouts given to patient. Joellen Crowder APRN DNP I spent a total of 60 minutes on the date of the service which included preparing to see the patient, abuy-kn-oxox patient care, completing clinical documentation, obtaining and/or reviewing separately obtained history, performing a medically appropriate examination, counseling and educating the pat ient/family/caregiver, ordering medications, tests, or procedures, communicating with other HCPs (not separately reported), independently interpreting results (not separately reported), communicatingresults to the patient/family/caregiver, and care coordination (not separately reported). documented in this encounterOur [facility] Radiology Diagnostic study note [facility] [address] [place], [place] [address] Chest PA and Lateral MR#: [id number] Acct: [id number] Name: JOELLEN GANT Rep #: [id number] : 1965 F 59 From: Josué Miner MD PCP: Dr. Sam Null MD Status: R EG CLI Study:Chest PA and Lateral Date of Exam: 06/19/24 Exam# [id number] Ordering Dr: Rajesh Jeff SHIPFITTER APPRENTICE SHIPFITTER APPRENTICE-C PROCEDURE: CHEST PA AND LATERAL 06/19/2024 REASON FOR EXAM: SOB TECHNIQUE: Frontal and lateral views of the chest. COMPARISON: Two views of the chest FINDINGS: Hardware: None Heart: Cardiomediastinal silhouette is within normal limits. Normal pulmonary vascularity. Mediastinum: Unremarkable Lungs: No focal consolidation. Bones: No acute fractures. RAD/Chest PA and Lateral IMPRESSION: No acute cardiopulmonary abnormality. Reading Location: [facility] CC: SHIPFITTER APPRENTICE-C Porfirio Jeff; Dr. Sam Null MD ~ Climatologist: Signed [facility]03-21-2025 Telephone encounter Note* Telephone Encounter - Myriam Freire - 06/01/2024 12:55 PM EDT VM received requesting to cancel appointment - patient sick. Appointment cancelled. LVM for patient to call back to reschedule. Tessellat message sent to patient. [facility]03-21-[facility]25 Miscellaneous Notes* Telephone Encounter - Myriam Freire - 06/01/2024 12:55 PM EDT VM received requesting to cancel appointment - patient sick. Appointment cancelled. LVM for patient to call back to reschedule. [email or web address] message sent to patient. documented in this encounterOur [facility]03-17-2025 Miscellaneous Notes* Telephone Encounter - Katya De La Cruz - 05/28/2024 3:56 PM EDT Lvm for pt to c/b and schedule VV with RD next month documented in this encounterOur [facility]03-17-[facility]25 Telephone encounter Note * Telephone Encounter - Katya De La Cruz - 05/28/2024 3:56 PM EDT Lvm for pt to c/b and schedule VV with RD next month [facility]03[facility] History of Present illness Narrative* Burak Schrader, EILEEN - 05/28/2024 3:30 PM EDT Joellen My Gant This patient encounter was completed virtually due to COVID-19 (audio/visual) using a secure, HIPPAcompliant video chat software program with the patient's consent. I have communicated my name and active licensure. The patients identity and physical location were verified at the time of this visit. Either the patient or their legal termite control representative has been informed of the risks and benefits of --and alternatives to -- treatment through remote evaluation and consents to proceed with the evaluation remotely. Education Class: Patient will receive instruction regarding healthy food choices and eating behaviors identified as optimal when preparing for surgery, losing weight after surgery, and maintaining weight loss long-term. Patient will also receive instruction regarding the Bariatric Full Liquid diet following surgery and optimal post-operative high-protein supplement choices. Education class to be completed prior to surgery. Behaviors Accomplished: Visit # 10/ Date: 05/24/24 Today's Weight:214 lbs -- per pt report - could not recall most recent weight Last in-office weight: (w/ RD 02/07/24) 233 lbs Initial Weight (Dr. Herzog 09/08/23): 259 lbs Behaviors that helped/hindered weight loss: helped Drink between meals Sip beverages slowly Eat slowly,chew well No high fat/fast foods D/c'd caffeinated, carbonated beverages Last 5 Encounter Wt Readings: Date: Wt: 05/07/2024 98 kg (216 lb) 04/20/2024 100.5 kg (221 lb 9.6 oz) 04/16/2024 100.5 kg (221 lb 9 oz) 04/13/2024 100 kg (220 lb 7.4 oz) 04/02/2024 102.5 kg (226 lb) 24 hr recall: B: 1 eggs (7g) w/ some cheese , 1/2 pc toast L: 2 small candy bars D: ribs with carrots, corn, potatoes (7g) S: glass of milk (8g), yogurt (14g), orange juice F: > 64 P: ~ 44g per RD Exercise: chair exercises daily and walking -unsure of time spent Caffeine: eliminated Art. Sweeteners: Patrice aid - when taking her meds Full Sugar: orange juice over the last few days Carbonation: eliminated Alcohol: none Dining out: <1x/week - encouraged avoiding all fried foods Sipping slowly/frequently: practicing Taking small bites/chewing 20-30x per bite: Yes food and fluid by 30 minutes: practicing Starting weight 259 lbs , current weight 214 lbs Adjusted protein due to CKD III - 48-60g Patient presents for month 10 of 6 supervised diet and exercise, demonstrates additional 2# loss since her last visit. Patient reports that she unfortunately has moved out of her home due to her landlord selling her home, she does not have a place at this time, she states she had 6 days to move. She reports more cravings right now - most likely due to stress. She has not been eating every few hours like she was before - her appetite has changed a little bit. She states that she has also noticedless coloring in her lips - she is wondering if she is dehydrated - encouraged to reach out to her PCP with her concerns. She states she does not like her PCP and would not be ok with reaching out, she is seeing her GI doctor on 05/31. Reports dry mouth but no other s/s of dehydration. She is still not keeping a food journal, per her recall she is not fully meeting her protein goals but meeting her fluid. Encouraged sticking to water and milk only. She reports she is working on chair exercises daily - unsure of time she is spending. She reports that she is not taking any vitaminsat this time and is needing to get more. Her nutrition progress remains unchanged since her last vis it. The patient meets NIH guidelines for weight loss surgery and has been thoroughly evaluated and educated on good dietary practices. Patient is capable of following these guidelines pre-and post-surgically. From nutrition standpoint, the has partially met nutrition clearance and will need to demonstrate aim for consistent meals (5-6 small meals per day), meeting 48-60g protein/64 oz fl 5-7 days perweek, tracking via food journal 5-7 days per week, increase formal exercise 150 min/week - chair exercises to receive nutrition clearance. Plan: follow up with RD 1 month (virtual visit) Goals aim for 3 meals or 5-6 small meals per day with a protein source - can use 1 protein shake as 1 meal replacment aim to eat every 2-3 hours (5-6 small meals per day ) formal exercise 5-7x/week as tolerated, goal of 30 minutes OR 150 minutes of activity per week -- chair exercises journal daily and bring to all appointments-meet protein and fluid goals 5 days/week (48-60 g per day and 64 oz/day) I spent 30 minutes in the visit, with more than 50% of the total [id number] time of the visit in counseling / coordination of care. Burak Schrader RD This note was generated using voice recognition technology and may contain grammatical errors. documented in this encounterOur [facility] Of [facility]03-17-2025 NoteHNO ID: [id number] Author: BURAK SCHRADER RD Service: ? Author Type: Registered Dietitian Type: Progress Notes Filed: 05/28/2024 15:51 Note Text: Joellen Gant This patient encounter was completed virtually due to COVID-19 (audio/visual) using a secure, HIPPA compliant video chat software program with the patient's consent. I have communicated my name and active licensure. The patients identity and physical location were verified at the time of this visit. Either the patient or their legal termite control representative has been informed of the risks and benefits of -- and alternatives to -- treatment through remote evaluation and consents to proceed with the evaluation remotely. Education Class: Patient will receive instruction regarding healthy food choices and eating behaviors identified as optimal when preparing for surgery, losing weight after surgery, and maintaining weight loss long-term. Patient will also receive instruction regarding the Bariatric Full Liquid diet following surgery and optimal post-operative high-protein supplement choices. Education class to be completed prior to surgery. Behaviors Accomplished: Visit # 10 Date: 05/24/24 Today's Weight:214 lbs -- per pt report - could not recall most recent weight Last in-office weight: (w/ RD 02/07/24) 233 lbs Initial Weight (Dr. Herzog 09/08/23): 259 lbs Behaviors that helped/hindered weight loss: helped Drink between meals Sip beverages slowly Eat slowly,chew well No high fat/fast foods D/c'd caffeinated, carbonated beverages Last 5 Encounter Wt Readings: Date: Wt: 05/07/2024 98 kg (216 lb) 04/20/2024 100.5 kg (221 lb 9.6 oz) 04/16/2024 100.5 kg (221 lb 9 oz) 04/13/2024 100 kg (220 lb 7.4 oz) 04/02/2024 102.5 kg (226 lb) 24 hr recall: B: 1 eggs (7g) w/ some cheese , 1/2 pc toast L: 2 small candy bars D: ribs with carrots, corn, potatoes (7g) S: glass of milk (8g), yogurt (14g), orange juice F: > 64 P: ~ [address] Exercise: chair exercises daily and walking -unsure of time spent Caffeine: eliminated Art. Sweeteners: Patrice aid - when taking her meds Full Sugar: orange juice over the last few days Carbonation: eliminated Alcohol: none Dining out: <1x/week - encouraged avoiding all fried foods Sipping slowly/frequently: practicing Taking small bites/chewing 20-30x per bite: Yes food and fluid by 30 minutes: practicing Starting weight 259 lbs , current weight 214 lbs Adjusted protein due to CKD III - 48-60g Patient presents for month 10 of 6 supervised diet and exercise, demonstrates additional 2# loss since her last visit. Patient reports that she unfortunately has moved out of her home due to her landlord selling her home, she does not have a place at this time, she states she had 6 days to move. She reports more cravings right now - most likely due to stress. She has not been eating every few hours like she was before - her appetite has changed a little bit. She states that she has also noticed less coloring in her lips - she is wondering if she is dehydrated - encouraged to reach out to her PCP with her concerns. She states she does not like her PCP and would not be ok with reaching out, she is seeing her GI doctor on 05/31. Reports dry mouth but no other s/s of dehydration. She is still not keeping a food journal, per her recall she is not fully meeting her protein goals but meeting her fluid. Encouraged sticking to water and milk only. She reports she is working on chair exercises daily - unsure of time she is spending. She reports that she is not taking any vitamins at this time and is needing to get more. Her nutrition progress remains unchanged since her last visit. The patient meets NIH guidelines for weight loss surgery and has been thoroughly evaluated and educated on good dietary practices. Patient is capable of following these guidelines pre-and post-surgically. From nutrition standpoint, the has partially met nutrition clearance and will need to demonstrate aim for consistent meals (5-6 small meals per day), meeting 48-60g protein/64 oz fl 5-7 days per week, tracking via food journal 5-7 days per week, increase formal exercise 150 min/week - chair exercises to receive nutrition clearance. Plan: follow up with RD 1 month (virtual visit) Goals aim for 3 meals or 5-6 small meals per day with a protein source - can use 1 protein shake as 1 meal replacment aim to eat every 2-3 hours (5-6 small meals per day ) formal exercise 5-7x/week as tolerated, goal of 30 minutes OR 150 minutes of activity per week -- chair exercises journal daily and bring to all appointments-meet protein and fluid goals 5 days/week (48-60 g per day and 64 oz/day) I spent 30 minutes in the visit, with more than 50% of the total [id number] time of the visit in counseling / coordination of care. Burak Schrader RD This note was generated using voice recognition technology and may conta (more content not included)...[facility]02-24-2025 History of Present illness Narrative* Burak Schrader RD - 05/07/2024 3:30 PM EST Joellen Gant This patient encounter was completed virtually due to COVID-19 (audio/visual) using a secure, HIPPAcompliant video chat software program with the patient's consent. I have communicated my name and active licensure. The patients identity and physical location were verified at the time of this visit. Either the patient or their legal termite control representative has been informed of the risks and benefits of --and alternatives to -- treatment through remote evaluation and consents to proceed with the evaluation remotely. Education Class: Patient will receive instruction regarding healthy food choices and eating behaviors identified as optimal when preparing for surgery, losing weight after surgery, and maintaining weight loss long-term. Patient will also receive instruction regarding the Bariatric Full Liquid diet following surgery and optimal post-operative high-protein supplement choices. Education class to be completed prior to surgery. Behaviors Accomplished: Visit # 9/ Date: 05/07/24 Today's Weight: 216 lbs Last in-office weight: (w/ RD 02/07/24) 233 lbs Initial Weight (Dr. Herzog 09/08/23): 259 lbs Behaviors that helped/hindered weight loss: helped Daily multivitamin Drink between meals Sip beverages slowly Eat slowly,chew well No high fat/fast foods D/c'd caffeinated, carbonated beverages Last 5 Encounter Wt Readings: Date: Wt: 04/20/2024 100.5 kg (221 lb 9.6 oz) 04/16/2024 100.5 kg (221 lb 9 oz) 04/13/2024 100 kg (220 lb 7.4 oz) 04/02/2024 102.5 kg (226 lb) 03/02/2024 102.5 kg (226 lb) Adjusted protein due to CKD III - 48-60g 24 hr recall: B: egg (7g), toast, slice of cheese (7g) L: 4 bites of yogurt -- -- (brand contains 14g pro but also 14g added sugar) D: 1/4 of abrams sandwich, 4 spoonfuls of apple sauce S: fudgecicle , 1 c milk (~8g) F: > 64 P: <48g Exercise: ADL's mostly/walking throughout her home, no planned exercise Caffeine: eliminated Art. Sweeteners: Patrice aid - when taking her meds Full Sugar: eliminated Carbonation: eliminated Alcohol: none Dining out: <1x/week - encouraged avoiding all fried foods Sipping slowly/frequently: practicing Taking small bites/chewing 20-30x per bite: Yes food and fluid by 30 minutes: practicing Starting weight 259 lbs, current weight 216 lbs Adjusted protein due to CKD III - 48-60g Patient presents for month 9 of 6 supervised diet and exercise, demonstrates a 10# loss since her last visit -- she has lost 43# within the program. She is currently scheduled to meet with OM in June. She is still undergoing further psych testing. Still struggling with swallowing/chest discomfort related to the hiatal hernia. At her last appointment she had mentioned that she was prescribed phentermine but it wasn't covered by her insurance. Per recall, she is meeting fluid goals but not protein. We reviewed together that she needs to focus on ample protein -- at least 48g protein daily. Encouraged aiming for 1 egg and cheese at breakfast, 1 yogurt, and 1 cottage cheese per day to get closer to meeting protein goals. Her nutrition progress remains unchanged, she continues to drink adequate fluid and avoiding fried foods. Her exercise remains the same, she reports that she is still struggling with her food journaldue to memory. She states that she can verbally recall everything she has eaten but she can't writeit down. The patient meets NIH guidelines for weight loss surgery and has been thoroughly evaluated and educated on good dietary practices. Patient is capable of following these guidelines pre-and post-surgically. From nutrition standpoint, the has partially met nutrition clearance and will need to demonstrate aim for consistent meals (5-6 small meals per day), meeting 48-60g protein/64 oz fl 5-7 days perweek, tracking via food journal 5-7 days per week, increase formal exercise 150 min/week - chair exercises to receive nutrition clearance. Plan: follow up with RD 1 month (virtual visit), needs SHIPFITTER APPRENTICE follow up in 1 month in office Goals aim for 3 meals or 5-6 small meals per day with a protein source - can use 1 protein shake as 1 meal replacment aim to eat every 2-3 hours (5-6 small meals per day ) eliminate carbonation containing beverages from diet formal exercise 5-7x/week as tolerated, goal of 30 minutes OR 150 minutes of activity per week -- chair exercises journal daily and bring to all appointments-meet protein and fluid goals 5 days/week (48-60 g per day and 64 oz/day) I spent 30 minutes in the visit, with more than 50% of the total [id number] time of the visit in counseling / coordination of care. Burak Schrader RD This note was generated using voice recognition technology and may contain grammatical errors. documented in this encounter[facility] NoteHNO ID: [id number] Author: BURAK SCHRADER RD Service: ? Author Type: Registered Dietitian Type: Progress Notes Filed: 05/07/2024 15:56 Note Text: Joellen Gant This patient encounter was completed virtually due to COVID-19 (audio/visual) using a secure, HIPPA compliant video chat software program with the patient's consent. I have communicated my name and active licensure. The patients identity and physical location were verified at the time of this visit. Either the patient or their legal termite control representative has been informed of the risks and benefits of -- and alternatives to -- treatment through remote evaluation and consents to proceed with the evaluation remotely. Education Class: Patient will receive instruction regarding healthy food choices and eating behaviors identified as optimal when preparing for surgery, losing weight after surgery, and maintaining weight loss long-term. Patient will also receive instruction regarding the Bariatric Full Liquid diet following surgery and optimal post-operative high-protein supplement choices. Education class to be completed prior to surgery. Behaviors Accomplished: Visit # 9/6 Date: 05/07/24 Today's Weight: 216 lbs Last in-office weight: (w/ RD 02/07/24) 233 lbs Initial Weight (Dr. Herzog 09/08/23): 259 lbs Behaviors that helped/hindered weight loss: helped Daily multivitamin Drink between meals Sip beverages slowly Eat slowly,chew well No high fat/fast foods D/c'd caffeinated, carbonated beverages Last 5 Encounter Wt Readings: Date: Wt: 04/20/2024 100.5 kg (221 lb 9.6 oz) 04/16/2024 100.5 kg (221 lb 9 oz) 04/13/2024 100 kg (220 lb 7.4 oz) 04/02/2024 102.5 kg (226 lb) 03/02/2024 102.5 kg (226 lb) Adjusted protein due to CKD III - 48-60g 24 hr recall: B: egg (7g), toast, slice of cheese (7g) L: 4 bites of yogurt -- -- (brand contains 14g pro but also 14g added sugar) D: 1/4 of abrams sandwich, 4 spoonfuls of apple sauce S: fudgecicle , 1 c milk (~8g) F: > 64 P: <48g Exercise: ADL's mostly/walking throughout her home, no planned exercise Caffeine: eliminated Art. Sweeteners: Patrice aid - when taking her meds Full Sugar: eliminated Carbonation: eliminated Alcohol: none Dining out: <1x/week - encouraged avoiding all fried foods Sipping slowly/frequently: practicing Taking small bites/chewing 20-30x per bite: Yes food and fluid by 30 minutes: practicing Starting weight 259 lbs, current weight 216 lbs Adjusted protein due to CKD III - 48-60g Patient presents for month 9 of 6 supervised diet and exercise, demonstrates a 10# loss since her last visit -- she has lost 43# within the program. She is currently scheduled to meet with OM in June. She is still undergoing further psych testing. Still struggling with swallowing/chest discomfort related to the hiatal hernia. At her last appointment she had mentioned that she was prescribed phentermine but it wasn't covered by her insurance. Per recall, she is meeting fluid goals but not protein. We reviewed together that she needs to focus on ample protein -- at least 48g protein daily. Encouraged aiming for 1 egg and cheese at breakfast, 1 yogurt, and 1 cottage cheese per day to get closer to meeting protein goals. Her nutrition progress remains unchanged, she continues to drink adequate fluid and avoiding fried foods. Her exercise remains the same, she reports that she is still struggling with her food journal due to memory. She states that she can verbally recall everything she has eaten but she can't write it down. The patient meets NIH guidelines for weight loss surgery and has been thoroughly evaluated and educated on good dietary practices. Patient is capable of following these guidelines pre-and post-surgically. From nutrition standpoint, the has partially met nutrition clearance and will need to demonstrate aim for consistent meals (5-6 small meals per day), meeting 48-60g protein/64 oz fl 5-7 days per week, tracking via food journal 5-7 days per week, increase formal exercise 150 min/week - chair exercises to receive nutrition clearance. Plan: follow up with RD 1 month (virtual visit), needs SHIPFITTER APPRENTICE follow up in 1 month in office Goals aim for 3 meals or 5-6 small meals per day with a protein source - can use 1 protein shake as 1 meal replacment aim to eat every 2-3 hours (5-6 small meals per day ) eliminate carbonation containing beverages from diet formal exercise 5-7x/week as tolerated, goal of 30 minutes OR 150 minutes of activity per week -- chair exercises journal daily and bring to all appointments-meet protein and fluid goals 5 days/week (48-60 g per day and 64 oz/day) I spent 30 minutes in the visit, with more than 50% of the total [id number] time of the visit in counseling / coordination of care. Burak Schrader RD This note was generated using voice recognition technology and may contain grammatical errors.[facility]02-[facility] Evaluation note* Diagnosis Onset Date Resolution Status Admit Date Asthma chronic May 03, 2024 2:04pm Dyspnea on exertion chronic Febru tin 2024 2:04pm Obesity, morbid, BMI 40.0-49.9 chronic May 03, 025 2:04pm 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 apnea chronic F ebruary 2024 2:04pm Smoking greater than 30 pack years chronic May 03, 025 2:04pm [facility] Work Phone: 1(705) 501-408102-20-2025 Evaluation note* Diagnosis Onset Date Resolution Status Admit Date Asthma chronic May 03, 2024 2:04pm Dyspnea on exertion chronic u 2024 2:04pm Obesity, morbid, BMI 40.0-49.9 chron ic May 03, 2024 2:04pm 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 apnea chronic F 2024 2:04pm Smoking greater than 30 pack years chronic May 03, 025 2:04pm Hypothyroidism (acquired) chronic August 13, 2024 2:29pm [facility] Work Phone: [phone] Evaluation note* Diagnosis Onset Date Resolution Status Admit Date Asthma chronic May 03, 2024 2:04pm Dyspnea on exertion chronic 2024 2:04pm Obesity, morbid, BMI 40.0-49.9 chron May 03, 2024 2:04pm 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 apnea chronic F 2024 2:04pm Smoking greater than 30 pack years chronic May 03 025 2:04pm Hypothyroidism (acquired) chronic August 13, 2024 2:29pm Obesity chronic August 13, 2024 2:29pm [facility] Work Phone: [phone] NoteHNO ID: [id number] Author: LISBET STEEL PSYD Service: ? Author Type: Psychologist Type: Progress Notes Filed: 04/23/2024 19:45 Note Text: [facility] New Patient Evaluation DATE OF SERVICE: 04/20/2024 CPT CODE: 99812 Psychiatric diagnostic evaluation I spent a total of 46 minutes on the date of the service which included [id number] patient care. IDENTIFYING INFORMATION Joellen Gnat is a 59 year old female who is seeking bariatric surgery. Consent form was provided to the patient and reviewed in detail prior to starting the session. MOTIVATION FOR WEIGHT MANAGEMENT: She said her gastro doctor referred her to bariatrics. MEDICAL PROBLEMS ACTIVE PROBLEM LIST Asthma Edema Veto On Cpap Gerd (Gastroesophageal Reflux Disease) Irritable Bowel Syndrome With Diarrhea Obesity, Class Iii, Bmi 40-49.9 (Morbid Obesity) (Hcc) Stage 3a Chronic Kidney Disease (Hcc) Atypical Chest Pain Bile-Induced Gastritis Colon Polyp Acquired Hypothyroidism Eczema No Appetite Cirrhosis of Liver Without Ascites, Unspecified Hepatic Cirrhosis Type (Hcc) MEDICATIONS Current Outpatient Medications Medication Sig albuterol HFA (PROAIR HFA) 90 mcg/actuation inhaler [...] of hands, arms, legs for 1 week.). carvedilol (COREG) 3.125 mg tablet Take 1 tablet by mouth two times a day. [facility] dicyclomine (BENTYL) 20 mg tablet Take 1 tablet by mouth three times a day as needed (per [facility]). torsemide (DEMADEX) 20 mg tablet Take 1 tablet by mouth two times a day. [facility]. CPAP BiPAP 9/5 cm per [facility]. cholestyramine-sucrose (QUESTRAN) 4 gram powder TAKE 4 GRAMS BY MOUTH AT BEDTIME. ADMINISTER WITH A MEAL. AVOID O... (REFER TO PRESCRIPTION NOTES). sucralfate (CARAFATE) 1 gram tablet Take one tablet in the morning and one tablet in the afternoon cholecalciferol (VITAMIN D3) 50 mcg (2,000 unit) tablet Take 1 tablet by mouth once daily. CREON 36,000-114,000- 180,000 unit delayed release capsule 1 capsule with meals and at bedtime. 2-3 capsules with meals and 1-2 with snacks hyoscyamine (LEVSIN) 0.125 mg tablet Take 0.125 mg by mouth every 6 hours as needed. 1-2 tablets four times daily as needed pantoprazole DR (PROTONIX) 40 mg tablet Take 1 tablet by mouth two times a day. Take on empty stomach, 1/2 hr before meal. omeprazole (PRILOSEC) 40 mg capsule Take 1 capsule by mouth once daily. diclofenac, EC, (VOLTAREN) 75 mg EC tablet take 1 tablet by mouth twice a day levothyroxine (SYNTHROID) 100 mcg tablet Take 1 tablet by mouth once daily. Per [facility]. colestipol (COLESTID) 1 gram tablet Take 2 tablets by mouth two times a day. spironolactone (ALDACTONE) 25 mg tablet Take 1 tablet by mouth every afternoon. Per [facility] olopatadine (PATANOL) 0.1 % ophthalmic solution EYE ITCH RELIEF 0.025 % (0.035 %) ophthalmic solution instill 1 drop into both eyes twice a day if needed nitroglycerin sublingual (NITROQUICK) 0.4 mg SL tablet 0.4 mg. aspirin, enteric coated (ASPIRIN, ENTERIC COATED) 81 mg EC tablet Take 1 tablet by mouth once daily. atorvastatin (LIPITOR) 20 mg tablet Take 20 mg by mouth once daily. potassium chloride SR (MICRO-K) 10 mEq CR capsule Take 1 capsule by mouth once daily. No current facility-administered medications for this visit. ALLERGIES ALLERGIES Allergen Reactions Iv Contrast [Iodine] Swelling Seasonal Allergies Intolerance EATING/WEIGHT HISTORY: Her highest weight as an adult was 299 lbs. The patient reports the following factors as contributing to weight gain: Genetics. She reports a family history of obesity. All the females on her mothers side. Last 3 Encounter Wt Readings: Date: Wt: 04/16/2024 100.5 kg (221 lb 9 oz) 04/13/2024 100 kg (220 lb 7.4 oz) 04/02/2024 102.5 kg (226 lb) The patient has tried weight loss strategies in the past including: She saw a dietitian in [place], The patient denies a history of laxative/diuretic use. The patient denies a history of vomiting to lose weight. The patient denies a history of an eating disorder. The patient has not had treatment for eating disorders in the past. CURRENT WEIGHT LOSS MEDICATIONS: Her doctor has prescribed phentermine CURRENT EATING PATTERNS: The patient is working on changing the following eating habits: Working with Burak Emotional Eating Endorsed: She said she never eats for emotional reasons Trigger Food/s: she sa (more content not included)...[facility]02-07-2025 History of Present illness Narrative* Lisbet Steel PSYD - 04/20/2024 10:24 AM EST Images from the original note were not included. [facility] New Patient Evaluation DATE OF SERVICE: 04/20/2024 CPT CODE: 69293 Psychiatric diagnostic evaluation I spent a total of 46 minutes on the date of the service which included [id number] patient care. IDENTIFYING INFORMATION Joellen Gant is a 59 year old female who is seeking bariatric surgery. Consent form was provided to the patient and reviewed in detail prior to starting the session. MOTIVATION FOR WEIGHT MANAGEMENT: She said her gastro doctor referred her to bariatrics. MEDICAL PROBLEMS ACTIVE PROBLEM LIST Asthma Edema Veto On Cpap Gerd (Gastroesophageal Reflux Disease) Irritable Bowel Syndrome With Diarrhea Obesity, Class Iii, Bmi 40-49.9 (Morbid Obesity) (Hcc) Stage 3a Chronic Kidney Disease (Hcc) Atypical Chest Pain Bile-Induced Gastritis Colon Polyp Acquired Hypothyroidism Eczema No Appetite Cirrhosis of Liver Without Ascites, Unspecified Hepatic Cirrhosis Type (Hcc) MEDICATIONS Current Outpatient Medications Medication Sig albuterol HFA (PROAIR HFA) 90 mcg/actuation inhaler [...] of hands, arms, legs for 1 week.). carvedilol (COREG) 3.125 mg tablet Take 1 tablet by mouth two times a day. [facility]. dicyclomine (BENTYL) 20 mg tablet Take 1 tablet by mouth three times a day as needed (per [facility]). torsemide (DEMADEX) 20 mg tablet Take 1 tablet by mouth two times a day. [facility]. CPAP BiPAP 9/5 cm per [facility]. cholestyramine-sucrose (QUESTRAN) 4 gram powder TAKE 4 GRAMS BY MOUTH AT BEDTIME. ADMINISTER WITH AMEAL. AVOID O... (REFER TO PRESCRIPTION NOTES). sucralfate (CARAFATE) 1 gram tablet Take one tablet in the morning and one tablet in the afternoon cholecalciferol (VITAMIN D3) 50 mcg (2,000 unit) tablet Take 1 tablet by mouth once daily. CREON 36,000-114,000- 180,000 unit delayed release capsule 1 capsule with meals and at bedtime. 2-3capsules with meals and 1-2 with snacks hyoscyamine (LEVSIN) 0.125 mg tablet Take 0.125 mg by mouth every 6 hours as needed. 1-2 tablets four times daily as needed pantoprazole DR (PROTONIX) 40 mg tablet Take 1 tablet by mouth two times a day. Take on empty stomach, 1/2 hr before meal. omeprazole (PRILOSEC) 40 mg capsule Take 1 capsule by mouth once daily. diclofenac, EC, (VOLTAREN) 75 mg EC tablet take 1 tablet by mouth twice a day levothyroxine (SYNTHROID) 100 mcg tablet Take 1 tablet by mouth once daily. Per [facility]. colestipol (COLESTID) 1 gram tablet Take 2 tablets by mouth two times a day. spironolactone (ALDACTONE) 25 mg tablet Take 1 tablet by mouth every afternoon. Per [facility] olopatadine (PATANOL) 0.1 % ophthalmic solution EYE ITCH RELIEF 0.025 % (0.035 %) ophthalmic solution instill 1 drop into both eyes twice a day if needed nitroglycerin sublingual (NITROQUICK) 0.4 mg SL tablet 0.4 mg. aspirin, enteric coated (ASPIRIN, ENTERIC COATED) 81 mg EC tablet Take 1 tablet by mouth once daily. atorvastatin (LIPITOR) 20 mg tablet Take 20 mg by mouth once daily. potassium chloride SR (MICRO-K) 10 mEq CR capsule Take 1 capsule by mouth once daily. No current facility-administered medications for this visit. ALLERGIES ALLERGIES Allergen Reactions Iv Contrast [Iodine] Swelling Seasonal Allergies Intolerance EATING/WEIGHT HISTORY: Her highest weight as an adult was 299 lbs. The patient reports the following factors as contributing to weight gain: Genetics. She reports a family history of obesity. All the females on her mothersside. Last 3 Encounter Wt Readings: Date: Wt: 04/16/2024 100.5 kg (221 lb 9 oz) 04/13/2024 100 kg (220 lb 7.4 oz) 04/02/2024 102.5 kg (226 lb) The patient has tried weight loss strategies in the past including: She saw a dietitian in [place], The patient denies a history of laxative/diuretic use. The patient denies a history of vomiting to lose weight. The patient denies a history of an eating disorder. The patient has not had treatment for eating disorders in the past. CURRENT WEIGHT LOSS MEDICATIONS: Her doctor has prescribed phentermine CURRENT EATING PATTERNS: The patient is working on changing the following eating habits: Working with Burak Emotional Eating Endorsed: She said she never eats for emotional reasons Trigger Food/s: she said likes oreos, honey braided pretzels, pork chops/ribs- hasn't had these in a while. 24 hour recall: Breakfast: 2 eggs and piece of toast Snack: piece of cheese Lunch: fish and tater tots Snack: couple bites of yogurt Dinner: fish with tater tots, brocolli, and fruit Snack: sometimes has a snack, had some munchos last night, said she hadn't had them in a long time. Sometimes eats much less than this. She said she also has a lot of water through the day. Patient Data Binge Eating Scale (BES) 12/09/2023 03/25/2024 Eating Habits Checklist Total Score 0 0 Patient-reported <18 = minimal binge eating, 18-26 = moderate binge eating, >27 = severe binge eating Generalized Anxiety Disorder Scale (PAULA-7) 12/09/2023 03/25/2024 PAULA - 7 SCORES Score 0 0 (0-4) minimal anxiety, (5-9) mild anxiety, (10-14) moderate anxiety, (15-21) severe anxiety Patient Health Questionnaire (PHQ-9) 12/09/2023 03/25/2024 PHQ-9 Score 10 4 (0-4) minimal depression, (5-9) mild depression, (10-14) moderate depression, (15-19) moderately severe depression, (20-27) severe depression BINGE EATING ASSESSMENT: A. Recurrent episodes of binge eating. An episode is characterized by: 1. Eating a larger amount of food than normal during a short period of time (within any two hour period): No 2. Lack of control over eating during the binge episode (i.e. the feeling that one cannot stop eating): No GRAZE EATING The patient reports graze eating behaviors: She does planned snacks as a part of her eating plan NIGHT EATING SYNDROME A. Demonstrates a significantly increased intake in the evening and/or nighttime, as evidenced by one or both of the following. 1. At least 25% of food is consumed after the evening meal: No 2. At least two episodes of nocturnal eating per week: No EXERCISE The patient currently does a lot with her animals, she said she does chair exercises throughout theday everyday. The remainder of the current evaluation will be completed at a subsequent session due to time constraints. Due to the patient's stating in the last two sessions that she is struggling with memory concerns she is being referred for a neuropsychological evaluation. UNDERSTANDING OF AND EXPECTATIONS FOR MEDICAL WEIGHT MANAGEMENT The patient has a good understanding of medical weight management and its benefits. MENTAL STATUS EXAMINATION: Appearance: normal grooming Eye contact: normal Rapport: easy. Orientation: alert and oriented in all spheres (time, person, place, situation, object) Mood: elevted Affect: appropriate. Body Image: Within Normal Limits Suicidal/homicidal ideation: Pt denied suicidal/homicidal ideation, plan and intent. Recall/Memory: patient reported perceived difficulties in immediate/short-term and patient reportedperceived difficulties in remote Attention: distractible Concentration:Variable Speech: rapid Psychomotor activity: average. Thought process: no evidence of formal thought disorder. Though content: within normal limits Hallucinations/Delusions none Insight: only adequate Judgment: fair The patient's motivation for treatment was judged to be good. PROVISIONAL DIAGNOSTIC IMPRESSION Eating disorder, unspecified type (primary encounter diagnosis) Anxiety Trauma in childhood IMPRESSIONS 1) Ms. Gant appeared to have reasonable expectations regarding medical weight management. She demonstrated good knowledge about the behavior changes necessary. Furthermore, pt appeared to be in the active stage of change at this time. 2) Recommendations and treatment plan will be communicated back to the referring physician by way of the shared medical record. Thank you for this referral. Please feel free to call or message with any questions. TREATMENT RECOMMENDATIONS AND PLAN: Return to complete current evaluation at next available appointment Schedule with neuropsychology for an evaluation Follow Up: Next available appointment as communicated to scheduling staff Lisbet Steel PSYD Clinical Health Psychologist Bariatrics [facility]* Diagnosis Stage 3b chronic kidney disease (HCC)- Primary Stage 3a chronic kidney disease (HCC) Right renal atrophy Renal sclerosis, unspecified Essential hypertension Unspecified essential hypertension NSAID long-term use Encounter for long-term (current) use of non-steroidal anti-inflammatories documented in this encounter [facility]02-[facility] History of Present illness Narrative* Sam Null MD - 04/16/2024 1:12 PM EST This note was created using [email or web address]. Subjective Joellen Gant is a 59 year old female. She was doing reasonably well and had no new concerns. She was losing weight with her diet and medications. She reported being down 65 pounds. She was diagnosed with cirrhosis 4 months ago, and had a liver biopsy. This was being monitored. Other specialists: 1) Porfirio Jeff CNP, [facility]. 2) Sridhar Byrnes MD, [facility]. 3) Brittany Anderson CNP, [facility]. 4) Grant Morgan MD, [facility]. 5) Britni Lockwood CNP, [facility]. 6) Marii Herzog MD, Bariatric surgery. 7) Lisbet Steel, [facility], Bariatric program. 8) Stephanie George PA-C, [facility]. Review of Systems Constitutional: Negative for fatigue, fever and unexpected weight change. HENT: Negative for congestion. Respiratory: Negative for cough, shortness of breath and wheezing. Cardiovascular: Positive for chest pain, palpitations and leg swelling. Gastrointestinal: Negative for abdominal pain, constipation, diarrhea, nausea and vomiting. Genitourinary: Negative for difficulty urinating and dysuria. Musculoskeletal: Positive for arthralgias. Neurological: Negative for dizziness and headaches. ACTIVE PROBLEM LIST Asthma Edema Veto On Cpap Gerd (Gastroesophageal Reflux Disease) Irritable Bowel Syndrome With Diarrhea Obesity, Class Iii, Bmi 40-49.9 (Morbid Obesity) (Hcc) Stage 3a Chronic Kidney Disease (Hcc) Atypical Chest Pain Bile-Induced Gastritis Colon Polyp Acquired Hypothyroidism Eczema No Appetite Cirrhosis of Liver Without Ascites, Unspecified Hepatic Cirrhosis Type (Hcc) PAST SURGICAL HISTORY Procedure Laterality Date 48 HOUR PH STUDY 07/21/2023 Dr. Herzog COLONOSCOPY SCREENING 07/17/2020 CT BIOPSY LIVER NEEDLE PERC 01/04/2024 EGD WITH BIOPSY(S) 07/17/2020 medium sized hiatal hernia; Dr. Escalante EGD WITH BIOPSY(S) 07/21/2023 3 cm hiatal hernia; Dr. Herzog ESOPHAGEAL MANOMETRY 07/21/2023 Dr. Herzog LAPS SURG CHOLECYSTECTOMY W/CHOLANGIOGRAPHY 07/22/2020 [facility] LEFT HEART CATH,PERCUTANEOUS 01/23/2019 [facility] heart catheterization vamshi. Social History Tobacco Use Smoking status: Former Current packs/day: 0.00 Average packs/day: 1 pack/day for 15.0 years (15.0 ttl pk-yrs) Types: Cigarettes Start date: 05/30/1994 Quit date: 05/30/2009 Years since quittin.8 Smokeless tobacco: Never Tobacco comments: started age 16 Vaping Use Vaping status: Never Used Substance Use Topics Alcohol use: Not Currently Drug use: Never Current Outpatient Medications Medication Sig cholestyramine-sucrose (QUESTRAN) 4 gram powder TAKE 4 GRAMS BY MOUTH AT BEDTIME. ADMINISTER WITH AMEAL. AVOID O... (REFER TO PRESCRIPTION NOTES). sucralfate (CARAFATE) 1 gram tablet Take one tablet in the morning and one tablet in the afternoon cholecalciferol (VITAMIN D3) 50 mcg (2,000 unit) tablet Take 1 tablet by mouth once daily. CREON 36,000-114,000- 180,000 unit delayed release capsule 1 capsule with meals and at bedtime. 2-3capsules with meals and 1-2 with snacks hyoscyamine (LEVSIN) 0.125 mg tablet Take 0.125 mg by mouth every 6 hours as needed. 1-2 tablets four times daily as needed pantoprazole DR (PROTONIX) 40 mg tablet Take 1 tablet by mouth two times a day. Take on empty stomach, 1/2 hr before meal. omeprazole (PRILOSEC) 40 mg capsule Take 1 capsule by mouth once daily. diclofenac, EC, (VOLTAREN) 75 mg EC tablet take 1 tablet by mouth twice a day levothyroxine (SYNTHROID) 100 mcg tablet Take 1 tablet by mouth once daily. Per [facility]. colestipol (COLESTID) 1 gram tablet Take 2 tablets by mouth two times a day. spironolactone (ALDACTONE) 25 mg tablet Take 1 tablet by mouth every afternoon. Per [facility] olopatadine (PATANOL) 0.1 % ophthalmic solution EYE ITCH RELIEF 0.025 % (0.035 %) ophthalmic solution instill 1 drop into both eyes twice a day if needed nitroglycerin sublingual (NITROQUICK) 0.4 mg SL tablet 0.4 mg. aspirin, enteric coated (ASPIRIN, ENTERIC COATED) 81 mg EC tablet Take 1 tablet by mouth once daily. atorvastatin (LIPITOR) 20 mg tablet Take 20 mg by mouth once daily. potassium chloride SR (MICRO-K) 10 mEq CR capsule Take 1 capsule by mouth once daily. albuterol HFA (PROAIR HFA) 90 mcg/actuation inhaler [...] of hands, arms, legs for 1 week.). carvedilol (COREG) 3.125 mg tablet Take 1 tablet by mouth two times a day. [facility]. dicyclomine (BENTYL) 20 mg tablet Take 1 tablet by mouth three times a day as needed (per [facility]). torsemide (DEMADEX) 20 mg tablet Take 1 tablet by mouth two times a day. [facility]. CPAP BiPAP 9/5 cm per [facility]. No current facility-administered medications for this visit. Objective BP 98/66 (BP Site: Left Arm, BP Position: Sitting, BP Cuff Size: Large Adult) Pulse 68 Temp 36.2 C (97.1 F) (Temporal) Wt 100.5 kg (221 lb 9 oz) LMP (LMP Unknown) BMI 39.88 kg/m Physical Exam Constitutional: General: She is not in acute distress. Appearance: She is not ill-appearing. HENT: Head: Normocephalic. Nose: No congestion or rhinorrhea. Eyes: Conjunctiva/sclera: Conjunctivae normal. Cardiovascular: Rate and Rhythm: Normal rate and regular rhythm. Heart sounds: No murmur heard. No gallop. Pulmonary: Effort: No respiratory distress. Breath sounds: No wheezing or rales. Abdominal: Palpations: Abdomen is soft. Tenderness: There is no abdominal tenderness. Musculoskeletal: Right lower leg: No edema. Left lower leg: No edema. Lymphadenopathy: Cervical: No cervical adenopathy. Neurological: General: No focal deficit present. Mental Status: She is alert. Assessment and Plan 1. Need for influenza vaccination - ICD9: V04.81, ICD10: Z23 (primary diagnosis) - INFLUENZA VACCINE, AGE 6MO-64YR, TRIVALENT (AFLURIA, FLULAVAL, FLUVIRIN, FLUZONE) 2. Mild intermittent asthma without complication - ICD9: 493.90, ICD10: J45.20 - Mild intermittent asthma stable - Continue current medications - Avoidance of triggers recommended - ALBUTEROL SULFATE HFA 90 MCG/ACTUATION AEROSOL INHALER - FLUTICASONE PROPIONATE 50 MCG/ACTUATION NASAL SPRAY,SUSPENSION - FLUTICASONE PROPIONATE 220 MCG/ACTUATION HFA AEROSOL INHALER 3. Eczema, unspecified type - ICD9: 692.9, ICD10: L30.9 - discussed skin care of rash - follow up if symptoms persist or worsen. - HYDROCORTISONE 2.5 % TOPICAL CREAM 4. Atypical chest pain - ICD9: 786.59, ICD10: R07.89 Chronic. [facility]. - CARVEDILOL 3.125 MG TABLET 5. Irritable bowel syndrome with diarrhea - ICD9: 564.1, ICD10: K58.0 Reviewed. - DICYCLOMINE 20 MG TABLET 6. Screening for cervical cancer - ICD9: V76.2, ICD10: Z12.4 - CONSULT TO GYNECOLOGY 7. VETO on CPAP - ICD9: 327.23, ICD10: G47.33 On BIPAP now, per [facility]. - CPAP 8. Cirrhosis of liver without ascites, unspecified hepatic cirrhosis type (HCC) - ICD9: 571.5, ICD10: K74.60 Records updated. Sam Null MD documented in this encounterOur [facility]02-03-[facility]25 NoteHNO ID: [id number] Author: SAM NULL MD Service: ? Author Type: Physician Type: Progress Notes Filed: 04/16/2024 15:55 Note Text: This note was created using [email or web address]. Subjective Joellen Gant is a 59 year old female. She was doing reasonably well and had no new concerns. She was losing weight with her diet and medications. She reported being down 65 pounds. She was diagnosed with cirrhosis 4 months ago, and had a liver biopsy. This was being monitored. Other specialists: 1) Porfirio Jeff CNP, [facility]. 2) Sridhar Byrnes MD, [facility]. 3) Brittany Anderson CNP, [facility]. 4) Grant Morgan MD, [facility]. 5) Britni Lockwood CNP, [facility] Neprhology. 6) Marii Herzog MD, Bariatric surgery. 7) Lisbet Steel, [facility] Psychology, Bariatric program. 8) Stephanie George PA-C, [facility] orthopedics. Review of Systems Constitutional: Negative for fatigue, fever and unexpected weight change. HENT: Negative for congestion. Respiratory: Negative for cough, shortness of breath and wheezing. Cardiovascular: Positive for chest pain, palpitations and leg swelling. Gastrointestinal: Negative for abdominal pain, constipation, diarrhea, nausea and vomiting. Genitourinary: Negative for difficulty urinating and dysuria. Musculoskeletal: Positive for arthralgias. Neurological: Negative for dizziness and headaches. ACTIVE PROBLEM LIST Asthma Edema Veto On Cpap Gerd (Gastroesophageal Reflux Disease) Irritable Bowel Syndrome With Diarrhea Obesity, Class Iii, Bmi 40-49.9 (Morbid Obesity) (Hcc) Stage 3a Chronic Kidney Disease (Hcc) Atypical Chest Pain Bile-Induced Gastritis Colon Polyp Acquired Hypothyroidism Eczema No Appetite Cirrhosis of Liver Without Ascites, Unspecified Hepatic Cirrhosis Type (Hcc) PAST SURGICAL HISTORY Procedure Laterality Date 48 HOUR PH STUDY 07/21/2023 Dr. Herzog COLONOSCOPY SCREENING 07/17/2020 CT BIOPSY LIVER NEEDLE PERC 01/04/2024 EGD WITH BIOPSY(S) 07/17/2020 medium sized hiatal hernia; Dr. Escalante EGD WITH BIOPSY(S) 07/21/2023 3 cm hiatal hernia; Dr. Herzog ESOPHAGEAL MANOMETRY 07/21/2023 Dr. Herzog LAPS SURG CHOLECYSTECTOMY W/CHOLANGIOGRAPHY 07/22/2020 [facility] LEFT HEART CATH,PERCUTANEOUS 01/23/2019 [facility] heart catheterization vamshi. Social History Tobacco Use Smoking status: Former Current packs/day: 0.00 Average packs/day: 1 pack/day for 15.0 years (15.0 ttl pk-yrs) Types: Cigarettes Start date: 05/30/1994 Quit date: 05/30/2009 Years since quittin.8 Smokeless tobacco: Never Tobacco comments: started age 16 Vaping Use Vaping status: Never Used Substance Use Topics Alcohol use: Not Currently Drug use: Never Current Outpatient Medications Medication Sig cholestyramine-sucrose (QUESTRAN) 4 gram powder TAKE 4 GRAMS BY MOUTH AT BEDTIME. ADMINISTER WITH A MEAL. AVOID O... (REFER TO PRESCRIPTION NOTES). sucralfate (CARAFATE) 1 gram tablet Take one tablet in the morning and one tablet in the afternoon cholecalciferol (VITAMIN D3) 50 mcg (2,000 unit) tablet Take 1 tablet by mouth once daily. CREON 36,000-114,000- 180,000 unit delayed release capsule 1 capsule with meals and at bedtime. 2-3 capsules with meals and 1-2 with snacks hyoscyamine (LEVSIN) 0.125 mg tablet Take 0.125 mg by mouth every 6 hours as needed. 1-2 tablets four times daily as needed pantoprazole DR (PROTONIX) 40 mg tablet Take 1 tablet by mouth two times a day. Take on empty stomach, 1/2 hr before meal. omeprazole (PRILOSEC) 40 mg capsule Take 1 capsule by mouth once daily. diclofenac, EC, (VOLTAREN) 75 mg EC tablet take 1 tablet by mouth twice a day levothyroxine (SYNTHROID) 100 mcg tablet Take 1 tablet by mouth once daily. Per [facility]. colestipol (COLESTID) 1 gram tablet Take 2 tablets by mouth two times a day. spironolactone (ALDACTONE) 25 mg tablet Take 1 tablet by mouth every afternoon. Per [facility] olopatadine (PATANOL) 0.1 % ophthalmic solution EYE ITCH RELIEF 0.025 % (0.035 %) ophthalmic solution instill 1 drop into both eyes twice a day if needed nitroglycerin sublingual (NITROQUICK) 0.4 mg SL tablet 0.4 mg. aspirin, enteric coated (ASPIRIN, ENTERIC COATED) 81 mg EC tablet Take 1 tablet by mouth once daily. atorvastatin (LIPITOR) 20 mg tablet Take 20 mg by mouth once daily. potassium chloride SR (MICRO-K) 10 mEq CR capsule Take 1 capsule by mouth once daily. albuterol HFA (PROAIR HFA) 90 mcg/actuation inhaler [...] a day as needed (Apply sparingly to (more content not included)...[facility]01-31-2025 Instructions* Patient Instructions* Britni Lockwood APRN.ERICK - 04/13/2024 2:40 PM EST -Reduce/STOP Voltaren -Discuss pain options with Orthopedics -Labs to be done today and prior to next visit. -Continue to follow [...] or less as CKD goal. -Please avoid Advil, Ibuprofen(Motrin), Aleve(Naproxen), Meloxicam(Mobic), diclofenac and other pain/arthritis medications called NSAIDS. It is ok to take acetaminophen (Tylenol) for pain as needed -Please avoid contrast dye with imaging. If a provider wants to order CT or MRI with contrast, please let them know you have decreased kidney function. -Increase activity as tolerated. RTC 4 -5 months. documented in this encounterOur Lady Of Mercy Hospital01-31-2025 History of Present illness Narrative* Britni Lockwood, CECELIA.LAST PATTERN GRADER - 04/13/2024 2:00 PM EST [facility] SERVICE DATE: 04/13/2024 SERVICE TIME: 2:20 PM CHIEF COMPLAINT: Follow up CKD HPI: Ms. 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 Feels well today. Feeling energetic today with rapid fire conversation. BPs at home not checked. Weights: Down 40 lbs since June 2023. Following with bariatrics at [facility]; Psych and RD. Still considering surgical options but may just continue on this route. Medication adherence is good. Still taking Voltaren BID - discussed in-depth. Follows low salt diet. No table salt. Drinking > 2 liters water per day Assessment/Plan from [facility] with me on 01/20/24. -Labs to be done today and prior to next visit. -Stop Voltaren or reduce to the lowest dose -Reduce Torsemide to 20 mg daily PAST MEDICAL HISTORY: ACTIVE PROBLEM LIST Asthma Edema Veto On Cpap Gerd (Gastroesophageal Reflux Disease) Irritable Bowel Syndrome With Diarrhea Obesity, Class Iii, Bmi 40-49.9 (Morbid Obesity) (Hcc) Stage 3a Chronic Kidney Disease (Hcc) Atypical Chest Pain Bile-Induced Gastritis Colon Polyp Subclinical Hypothyroidism Eczema No Appetite MEDICATIONS: cholestyramine-sucrose (QUESTRAN) 4 gram powder TAKE 4 GRAMS BY MOUTH AT BEDTIME. ADMINISTER WITH AMEAL. AVOID O... (REFER TO PRESCRIPTION NOTES). sucralfate (CARAFATE) 1 gram tablet Take one tablet in the morning and one tablet in the afternoon torsemide (DEMADEX) 20 mg tablet Take 1 tablet by mouth once daily. cholecalciferol (VITAMIN D3) 50 mcg (2,000 unit) tablet Take 1 tablet by mouth once daily. CREON 36,000-114,000- 180,000 unit delayed release capsule [...] Take 1 capsule by mouth once daily. diclofenac, EC, (VOLTAREN) 75 mg EC tablet take 1 tablet by mouth twice a day levothyroxine (SYNTHROID) 100 mcg tablet Take 1 tablet by mouth once daily. Per [facility]. colestipol (COLESTID) 1 gram tablet Take [...] 1 tablet by mouth every afternoon. Per [facility] olopatadine (PATANOL) 0.1 % ophthalmic [...] mask of choice, HUMIDITY. LIFETIME SUPPLIES. DME: [facility] ALLERGIES: ALLERGIES Allergen Reactions Iv Contrast [Iodine] Swelling Seasonal Allergies Intolerance PHYSICAL EXAM: BP 114/80 (BP Site: Left Arm, BP Position: Sitting, BP Cuff Size: Large Adult) Pulse 68 Wt 100 kg (220 lb 7.4 oz) LMP (LMP Unknown) BMI 39.68 kg/m BP - standardized method Pulse 1 BP #1: 121/81 Pulse #1: 68 beats/min 2 BP #2 : 121/82 Pulse #2 : 68 beats/min 3 BP #3 : 100/76 Pulse #3 : 68 beats/min Average Average BP: 114/80 Average Pulse: 68 beats/min BP cuff location BP cuff location: Left upper arm BP cuff size BP cuff size: regular adult Constitutional:No acute distress, Responsive, Normal habitus, and Well-nourished Neck:Trachea midline No jugular venous distension Cardiovascular:No peripheral edema Regular rate and ryhthm, normal S1 and S2, no murmurs, rubs, or gallops Respiratory:Normal respiratory effort. Lungs clear bilaterally. Abdomen:Soft, non-tender, non-distended. Normal bowel sounds. No hepatosplenomegaly. Psychiatric: Alert and oriented x self, place, time, and setting Normal mood/affect DATA: Diagnostic tests reviewed for today's visit: Sodium (mmol/L) Date Value 01/20/2024 141 10/07/2023 141 07/13/2023 141 Creatinine (mg/dL) Date Value 01/20/2024 1.33 (H) 10/07/2023 1.39 (H) 07/13/2023 1.25 (H) Vitamin D 25 Hydroxy (ng/mL) Date Value 11/04/2023 33.7 PTH, Intact (pg/mL) Date Value 01/04/2024 131 (H) 11/04/2023 166 (H) 10/07/2023 288 (H) Potassium (mmol/L) Date Value 01/20/2024 3.8 10/07/2023 4.9 07/13/2023 4.3 Phosphorus (mg/dL) Date Value 10/07/2023 2.9 07/13/2023 3.0 01/27/2023 2.1 (L) Calcium, Total (mg/dL) Date Value 01/20/2024 9.7 10/07/2023 9.6 07/13/2023 10.0 Hemoglobin (g/dL) Date Value 07/13/2023 14.4 11/17/2022 14.2 03/20/2021 13.5 Hemoglobin A1C (%) Date Value 07/13/2023 5.3 11/17/2022 5.0 03/20/2021 5.2 Albumin/Creat Ratio (mg/g) Date Value 07/13/2023 <11 01/27/2023 <19 Protein/Creat Ratio (mg/mg) Date Value 07/13/2023 0.10 01/27/2023 0.08 Laboratory work up, imaging and other tests were reviewed ASSESSMENT: 59 year old female who presents with PMHx with CKD 3, VETO on CPAP, GERD, IBS and Obesity. CKD Stage 3B, non proteinuric, related to right renal atrophy, with last SCR 1.39 with noted progression. Risk progression includes continued NSAID use, PPI use and BMI >45 although she is workingthrough the bariatric program in hopes of RYGB. Kidney sizes: - Ultrasound done 11/2022: - [...] - Meds: Carvedilol 3.125 BID, Torsemide 20 daily, spironolactone 25 - BP Stable - No edema Metabolic/electrolytes: - K: 3.8 - Na: 141 - C02: 28 - Stable Anemia: - Hgb: 14.4 - Following for EARNEST/iron needs. Metabolic Bone: - Vitamin D: 33.7 - PTH: 131 - Ca: 9.7 - Stable CV/Lipids: - ASA daily, Lipitor PLAN: -Reduce/STOP Voltaren -Discuss pain options with Orthopedics -Labs to be done today and prior to next visit. -Continue to follow [...] or less as CKD goal. -Please avoid Advil, Ibuprofen(Motrin), Aleve(Naproxen), Meloxicam(Mobic), diclofenac and other pain/arthritis medications called NSAIDS. It is ok to take acetaminophen (Tylenol) for pain as needed -Please avoid contrast dye with imaging. If a provider wants to order CT or MRI with contrast, please let them know you have decreased kidney function. -Increase activity as tolerated. RTC 4 -5 months. I spent a total of 38 minutes on the date of the service which included preparing to see the patient, [id number] patient care, completing clinical documentation, obtaining and/or reviewing separately obtained history, performing a medically appropriate examination, counseling and educating the pat ient/family/caregiver, ordering medications, tests, or procedures, communicating with other HCPs (not separately reported), independently interpreting results (not separately reported), and communicating results to the patient/family/caregiver. All documentation from previous visit was copied and pasted, documentation has been reviewed and edited as necessary for today's visit. SIGNATURE: Britni Lockwood APRN.CNP PATIENT NAME: Joellen Gant DATE: April 13, 2024 TIME: 2:20 PM OFFICE NUMBER: [phone] CC: PRIMARY CARE PHYSICIAN: Sam Null MD documented in this encounterOur Lady Of Mercy Hospital01-31-2025 NoteHNO ID: [id number] Author: BRITNI LOCKWOOD APRN.CNP Service: ? Author Type: Nurse Practitioner Type: Progress Notes Filed: 04/18/2024 13:07 Note Text: [facility] SERVICE DATE: 04/13/2024 SERVICE TIME: 2:20 PM CHIEF COMPLAINT: Follow up CKD HPI: Ms. 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 Feels well today. Feeling energetic today with rapid fire conversation. BPs at home not checked. Weights: Down 40 lbs since June 2023. Following with bariatrics at [facility]; Psych and RD. Still considering surgical options but may just continue on this route. Medication adherence is good. Still taking Voltaren BID - discussed in-depth. Follows low salt diet. No table salt. Drinking > 2 liters water per day Assessment/Plan from [facility] with me on 01/20/24. -Labs to be done today and prior to next visit. -Stop Voltaren or reduce to the lowest dose -Reduce Torsemide to 20 mg daily PAST MEDICAL HISTORY: ACTIVE PROBLEM LIST Asthma Edema Veto On Cpap Gerd (Gastroesophageal Reflux Disease) Irritable Bowel Syndrome With Diarrhea Obesity, Class Iii, Bmi 40-49.9 (Morbid Obesity) (Hcc) Stage 3a Chronic Kidney Disease (Hcc) Atypical Chest Pain Bile-Induced Gastritis Colon Polyp Subclinical Hypothyroidism Eczema No Appetite MEDICATIONS: cholestyramine-sucrose (QUESTRAN) 4 gram powder TAKE 4 GRAMS BY MOUTH AT BEDTIME. ADMINISTER WITH A MEAL. AVOID O... (REFER TO PRESCRIPTION NOTES). sucralfate (CARAFATE) 1 gram tablet Take one tablet in the morning and one tablet in the afternoon torsemide (DEMADEX) 20 mg tablet Take 1 tablet by mouth once daily. cholecalciferol (VITAMIN D3) 50 mcg (2,000 unit) tablet Take 1 tablet by mouth once daily. CREON 36,000-114,000- 180,000 unit delayed release capsule [...] Take 1 capsule by mouth once daily. diclofenac, EC, (VOLTAREN) 75 mg EC tablet take 1 tablet by mouth twice a day levothyroxine (SYNTHROID) 100 mcg tablet Take 1 tablet by mouth once daily. Per [facility]. colestipol (COLESTID) 1 gram tablet Take [...] 1 tablet by mouth every afternoon. Per [facility] olopatadine (PATANOL) 0.1 % ophthalmic [...] mask of choice, HUMIDITY. LIFETIME SUPPLIES. DME: [facility] ALLERGIES: ALLERGIES Allergen Reactions Iv Contrast [Iodine] Swelling Seasonal Allergies Intolerance PHYSICAL EXAM: BP 114/80 (BP Site: Left Arm, BP Position: Sitting, BP Cuff Size: Large Adult) Pulse 68 Wt 100 kg (220 lb 7.4 oz) LMP (LMP Unknown) BMI 39.68 kg/m? BP - standardized method Pulse 1 BP #1: 121/81 Pulse #1: 68 beats/min 2 BP #2 : 121/82 Pulse #2 : 68 beats/min 3 BP #3 : 100/76 Pulse #3 : 68 beats/min Average Average BP: 114/80 Average Pulse: 68 beats/min BP cuff location BP cuff location: Left upper arm BP cuff size BP cuff size: regular adult Constitutional:No acute distress, Responsive, Normal habitus, and Well-nourished Neck:Trachea midline No jugular venous distension Cardiovascular:No peripheral edema Regular rate and ryhthm, normal S1 and S2, no murmurs, rubs, or gallops Respiratory:Normal respiratory effort. (more content not included)...[facility]01-23-2025 Telephone encounter Note* Telephone Encounter - Cassie Suh RN - 04/05/2024 9:53 AM EST MDT: Psychological evaluation part 1 completed 03/26. Some concerns: 1. She expressed several times experiencing memory problems. She stated she was tested for this while applying for disability but couldn t provide details. 2. She expressed having a history of trauma and endorsed symptoms that could be indicative of OCD type behaviors including a history of hoarding behaviors. 3. She also was hypomanic during the session and struggled with staying focused and on task. 4. She repeatedly stated that she did not have a mental illness. The plan: The patient will be seen in office for her next appointment. She was open to completing some neuropsychology screeners as a part of her intake, so we will start there. She will likely be referred for a full neuropsychology assessment based on the screening. We will schedule her for the MMPI to get some concrete data on symptoms, especially since she is currently denying mental health concerns. At this point, I m not certain she will clear psychology. She is open to looking into the medical weight management route. MDT recommendations: Place a referral for [facility]END[facility], Dr. Steel to cont to work with her. Keep on surgical track whille seeing OM . MDT F/U, Sofía Multani NP has placed the referral for Obesity Medicine. Pt will also cont with Dr. Steel. Upcoming appointment with EILEEN. Pt to stay in [facility] while working with OM. Cassie Suh RN, BSN Bariatric Front Office Director [facility]01-23-2025 Miscellaneous Notes* Telephone Encounter - Cassie Suh RN - 04/05/2024 9:53 AM EST MDT: Psychological evaluation part 1 completed 03/26. Some concerns: 1. She expressed several times experiencing memory problems. She stated she was tested for this while applying for disability but couldn t provide details. 2. She expressed having a history of trauma and endorsed symptoms that could be indicative of OCD type behaviors including a history of hoarding behaviors. 3. She also was hypomanic during the session and struggled with staying focused and on task. 4. She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 patient's consent. I have communicated my name and active licensure. The patients identity and physical location were verified at the time of this visit. Either the patient or their legal termite control representative has been informed of the risks and benefits of --and alternatives to -- treatment through remote evaluation and consents to proceed with the evaluation remotely. Education Class: Patient will receive instruction regarding healthy food choices and eating behaviors identified as optimal when preparing for surgery, losing weight after surgery, and maintaining weight loss long-term. Patient will also receive instruction regarding the Bariatric Full Liquid diet following surgery and optimal post-operative high-protein supplement choices. Education class to be completed prior to surgery. Behaviors Accomplished: Visit # 7/6 Date: 03/02/24 Today's Weight: 226 lbs Last in-office weight: (w/ RD 02/06) 233 lbs Initial Weight (Dr. Herzog 09/07): 259 lbs Behaviors that helped/hindered weight loss: helped Eating 3 meals/one snack Daily multivitamin No high fat/fast foods Last 5 Encounter Wt Readings: Date: Wt: 03/02/2024 102.5 kg (226 lb) 02/07/2024 105.7 kg (233 lb) 02/01/2024 103 kg (227 lb) 01/05/2024 107.4 kg (236 lb 13.6 oz) 12/12/2023 108.9 kg (240 lb) 24 hr recall: B: 1/2 egg sandwich (~7g?) L: few bites of cottage cheese, applesauce D: 3 peanut butter crackers, 2 -3 bites of fish, and 3-4 tater tots S: few oreos, shay F:few sips of almond milk -- 4 or more water bottles Exercise: ADL's mostly - no planned activity Caffeine: eliminated coke, coffee, tea Art. Sweeteners: none Full Sugar: occasionally chocolate milk Carbonation: occasionally pop Alcohol: none Dining out: <1x/week - discussed avoiding all fried foods Sipping slowly/frequently: practicing Taking small bites/chewing 20-30x per bite: Yes food and fluid by 30 minutes: practicing Starting weight 259 lbs, current weight 226 lbs Adjusted protein due to CKD III - 48-60g Patient presents for month 7 of 6 supervised diet and exercise, demonstrates a 7# loss since her last office visit and 33# loss since her first visit in the program. Patient states she is having a harder time swallowing - met with GI today on this - this has been going on the last 2 weeks. She has an upcoming EGD (may) to further explore this. She is working toward R and was told by her GI doctor she needs to lose about 100# -- she was offered some weight loss medication by him today too to help her. She is still on the fence if she wants to proceed toward surgery due to her success on her own. She is still working toward the same nutrition recs, her progress remains unchanged since her last visit. Will bring up to the team. Still needs to meet with bariatric psychologist. The patient meets NIH guidelines for weight loss surgery and has been thoroughly evaluated and educated on good dietary practices. Patient is capable of following these guidelines pre-and post-surgically. From nutrition standpoint, the has partially met nutrition clearance and will need to demonstrate aim for consistent meals (5-6 small meals per day), meeting 48-60g protein/64 oz fl 5-7 days perweek, eliminate carbonation containing beverages from diet, tracking via food journal 5-7 days per week, increase formal exercise 150 min/week - chair exercises to receive nutrition clearance. Plan: follow up with RD 1 month (virtual visit) Goals aim for 3 meals or 5-6 small meals per day with a protein source - can use 1 protein shake as 1 meal replacment aim to eat every 2-3 hours (5-6 small meals per day ) eliminate carbonation containing beverages from diet formal exercise 5-7x/week as tolerated, goal of 30 minutes OR 150 minutes of activity per week -- chair exercises journal daily and bring to all appointments-meet protein and fluid goals 5 days/week (48-60 g per day and 64 oz/day) I spent 25minutes in the visit, with more than 50% of the total [id number] time of the visit in counseling / coordination of care. Burak Schrader RD This note was generated using voice recognition technology and may contain grammatical errors. documented in this encounterOur [facility] Evaluation note* Diagnosis Onset Date Resolution Status Admit Date Abdominal pain acute February 122023 10:36am Cirrhosis acute March 02, 2024 10:36am GERD (gastroesophageal reflu x disease) chronic March 02, 024 10:36am IBS (irritable bowel syndrome) chronic March 02, 024 10:36am Asthma chronic May 03, 2024 2:04pm Dyspnea on exertion chronic Febru tin 2024 2:04pm Obesity, morbid, BMI 40.0-49.9 chronic May 03, 025 2:04pm 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 apnea chronic F ebruary 2024 2:04pm Smoking greater than 30 pack years chronic May 03, 025 2:04pm [facility] Work Phone: [phone]) 745-330412-19-2024 NoteHNO ID: [id number] Author: GERI FABIAN, ? Service: ? Author Type: Physician Type: Progress Notes Filed: 03/02/2024 16:12 Note Text: Initial Office Visit Subjective: This 59 year old female presents to clinic for diabetic foot check. Patient has the following complaints: dystrophic toenails. Patient states that she initially started experiencing thick toenails to b/l hallux and now has thickening of b/l hallux and right 2nd toenail. She states the nails cut into her other toes. She is here to discuss options. Patient admits to being diabetic for multiple years now. Patient -B/T/N in feet at this time. Patient -pain in legs when walking. No other pedal complaints at this time. No change in medications or medical history since last visit. PAIN EVALUATION No data found in the last 1 encounters. Hemoglobin A1C (%) Date Value 07/13/2023 5.3 11/17/2022 5.0 03/20/2021 5.2 04/05/2017 5.1 07/09/2015 5.0 PCP: Sam Null MD PAST MEDICAL HISTORY Diagnosis Date Asthma 06/13/2008 Atypical chest pain 01/2019 heart cath normal Bile-induced gastritis 04/08/2021 Calcium deposits in tendon and bursa right knee Carpal tunnel syndrome, bilateral 10/16/2015 Chronic cholecystitis 07/22/2020 Chronic midline low back pain without sciatica 07/31/2015 CKD stage 3a, GFR 45-59 ml/min ([facility]) Colon polyp 07/17/2020 Dermatophytosis of the body Edema 06/13/2008 GERD (gastroesophageal reflux disease) 07/29/2010 Hiatal hernia 07/17/2020 medium sized seen on EGD Infectious mononucleosis Irregular menstrual cycle Irritable bowel syndrome with diarrhea 08/04/2015 Morbid obesity with BMI of 45.0-49.9, adult ([facility]) Obesity, Class III, BMI 40-49.9 (morbid obesity) ([facility]) 07/27/2017 Stage 3a chronic kidney disease ([facility]) 04/08/2021 Tobacco use disorder Unspecified hearing loss left ear - wears hearing aid Unspecified hypothyroidism Current Outpatient Medications Medication Sig cholestyramine-sucrose (QUESTRAN) 4 gram powder TAKE 4 GRAMS BY MOUTH AT BEDTIME. ADMINISTER WITH A MEAL. AVOID O... (REFER TO PRESCRIPTION NOTES). sucralfate (CARAFATE) 1 gram tablet Take one tablet in the morning and one tablet in the afternoon torsemide (DEMADEX) 20 mg tablet Take 1 tablet by mouth once daily. cholecalciferol (VITAMIN D3) 50 mcg (2,000 unit) tablet Take 1 tablet by mouth once daily. CREON 36,000-114,000- 180,000 unit delayed release capsule 1 capsule with meals and at bedtime. 2-3 capsules with meals and 1-2 with snacks hyoscyamine (LEVSIN) 0.125 mg tablet Take 0.125 mg by mouth every 6 hours as needed. 1-2 tablets four times daily as needed pantoprazole DR (PROTONIX) 40 mg tablet Take 1 tablet by mouth two times a day. Take on empty stomach, 1/2 hr before meal. omeprazole (PRILOSEC) 40 mg capsule Take 1 capsule by mouth once daily. diclofenac, EC, (VOLTAREN) 75 mg EC tablet take 1 tablet by mouth twice a day levothyroxine (SYNTHROID) 100 mcg tablet Take 1 tablet by mouth once daily. Per [facility]. colestipol (COLESTID) 1 gram tablet Take [...] 1 tablet by mouth every afternoon. Per [facility] olopatadine (PATANOL) 0.1 % ophthalmic [...] mask of choice, HUMIDITY. LIFETIME SUPPLIES. DME: [facility] albuterol HFA (PROAIR HFA) 90 mcg/actuation inhaler Inhale 2 Puffs as instructed every 4 hours as needed. No current facility-administered medications for this visit. ALLERGIES Allergen Reactions Iv Contrast [Iodine] Swelling Seasonal Allergies Intolerance PAST SURGICAL HISTORY Procedure Laterality Date 48 HOUR PH STUDY 07/21/2023 Dr. Herzog COLONOSCOPY SCREENING 07/17/2020 EGD WITH BIOPSY(S) 07/17/2020 medium sized hiatal hernia; Dr. Escalante EGD WITH BIOPSY(S) 07/21/2023 3 cm hiatal hernia; Dr. Herzog ESOPHAGEAL MANOMETRY (more content not included)...[facility]12-19-2024 History of Present illness Narrative* Geri Fabian - 03/01/2024 3:41 PM EST Initial Office Visit Subjective: This 59 year old female presents to clinic for diabetic foot check. Patient has the following complaints: dystrophic toenails. Patient states that she initially started experiencing thicktoenails to b/l hallux and now has thickening of b/l hallux and right 2nd toenail. She states the nails cut into her other toes. She is here to discuss options. Patient admits to being diabetic for multiple years now. Patient -B/T/N in feet at this time. Patient -pain in legs when walking. No other pedal complaints at this time. No change in medications or medical history since last visit. PAIN EVALUATION No data found in the last 1 encounters. Hemoglobin A1C (%) Date Value 07/13/2023 5.3 11/17/2022 5.0 03/20/2021 5.2 04/05/2017 5.1 07/09/2015 5.0 PCP: Sam Null MD PAST MEDICAL HISTORY Diagnosis Date Asthma 06/13/2008 Atypical chest pain 01/2019 heart cath normal Bile-induced gastritis 04/08/2021 Calcium deposits in tendon and bursa right knee Carpal tunnel syndrome, bilateral 10/16/2015 Chronic cholecystitis 07/22/2020 Chronic midline low back pain without sciatica 07/31/2015 CKD stage 3a, GFR 45-59 ml/min ([facility]) Colon polyp 07/17/2020 Dermatophytosis of the body Edema 06/13/2008 GERD (gastroesophageal reflux disease) 07/29/2010 Hiatal hernia 07/17/2020 medium sized seen on EGD Infectious mononucleosis Irregular menstrual cycle Irritable bowel syndrome with diarrhea 08/04/2015 Morbid obesity with BMI of 45.0-49.9, adult ([facility]) Obesity, Class III, BMI 40-49.9 (morbid obesity) ([facility]) 07/27/2017 Stage 3a chronic kidney disease ([facility]) 04/08/2021 Tobacco use disorder Unspecified hearing loss left ear - wears hearing aid Unspecified hypothyroidism Current Outpatient Medications Medication Sig cholestyramine-sucrose (QUESTRAN) 4 gram powder TAKE 4 GRAMS BY MOUTH AT BEDTIME. ADMINISTER WITH AMEAL. AVOID O... (REFER TO PRESCRIPTION NOTES). sucralfate (CARAFATE) 1 gram tablet Take one tablet in the morning and one tablet in the afternoon torsemide (DEMADEX) 20 mg tablet Take 1 tablet by mouth once daily. cholecalciferol (VITAMIN D3) 50 mcg (2,000 unit) tablet Take 1 tablet by mouth once daily. CREON 36,000-114,000- 180,000 unit delayed release capsule 1 capsule with meals and at bedtime. 2-3capsules with meals and 1-2 with snacks hyoscyamine (LEVSIN) 0.125 mg tablet Take 0.125 mg by mouth every 6 hours as needed. 1-2 tablets four times daily as needed pantoprazole DR (PROTONIX) 40 mg tablet Take 1 tablet by mouth two times a day. Take on empty stomach, 1/2 hr before meal. omeprazole (PRILOSEC) 40 mg capsule Take 1 capsule by mouth once daily. diclofenac, EC, (VOLTAREN) 75 mg EC tablet take 1 tablet by mouth twice a day levothyroxine (SYNTHROID) 100 mcg tablet Take 1 tablet by mouth once daily. Per [facility]. colestipol (COLESTID) 1 gram tablet Take [...] 1 tablet by mouth every afternoon. Per [facility] olopatadine (PATANOL) 0.1 % ophthalmic [...] mask of choice, HUMIDITY. LIFETIME SUPPLIES. DME: [facility] albuterol HFA (PROAIR HFA) 90 mcg/actuation inhaler Inhale 2 Puffs as instructed every 4 hours as needed. No current facility-administered medications for this visit. ALLERGIES Allergen Reactions Iv Contrast [Iodine] Swelling Seasonal Allergies Intolerance PAST SURGICAL HISTORY Procedure Laterality Date 47 [...] date: 05/30/1994 Quit date: 05/30/2009 Years since quittin.7 Smokeless tobacco: Never Tobacco comments: started age 16 Vaping Use Vaping status: Never Used Substance Use Topics Alcohol use: Not Currently Drug use: Never REVIEW OF SYSTEMS GENERAL: Negative for Malaise, significant weight loss, fever RESPIRATORY: Negative for cough, wheezing and shortness of breath CARDIOVASCULAR: Negative for chest pain, leg swelling and palpitations GI: Negative for abdominal discomfort, blood in stools or black stools and change in bowel habits : Negative for dysuria, frequency and incontinence MUSCULOSKELETAL: Negative for joint pain or swelling, back pain, and muscle pain. SKIN: Negative for lesions, rash, and itching. HEMATOLOGY/LYMPHOLOGY Negative for prolonged bleeding, bruising easily, and swollen nodes. ENDOCRINE: Negative for cold or heat intolerance, polyuria, polydipsia and goiter. NEURO: negative The remainder of the review of systems is noncontributory. Objective: Patient [facility] Constitutional: Pt is a well developed 59 year old female who is alert, oriented, cooperative and in no apparent distress. Eyes: Following during examination. No redness or drainage. Respiratory: RR normal and nonlabored. Even breathing. No evidence of distress. Psychology: Patient is engaged during conversation. Normal affect and mood. Does not appear depressed or anxious. Vasc: DP and PT pulses are faintly palpable bilateral. CFT is less than 5 seconds bilateral. Skin temperature is warm to cool proximal to distal bilateral. There is no edema or varicosities noted. Hair growth present. Neuro: Protective sensation is intact to the foot and toes when tested with the 5.07 SWM bilateral.Vibratory sensation is intact at the hallux bilateral. No Significant neurological defecits. Derm: Inspection and palpation performed. Nails 1-3 right and left hallux are painful, discolored-yellow, thick, crumbly, dystrophic and with subungal debris. Skin is dry b/l. Hyperkeratosis noted tonot present. NO ulcerations, scars, verruca or other lesions noted. Ortho: Ankle joint DF is full with the knee extended and full with knee flexed. No pain or crepitusnoted. STJ, MTJ ROM are full and free of pain or crepitus. Muscle strength is 5/5 for dorsiflexors,plantarflexors, inverters, everters. Digital deformities include none. Assessment: (L60.3) Onychodystrophy (primary encounter diagnosis) (R09.89) Diminished pulses in lower extremity (M79.675) Pain in toe of left foot (M79.674) Pain in toe of right foot Plan: 1. Patient was seen and evaluated. 2. Patient was instructed on the continued importance of diabetic foot care along with proper diet and keeping their blood sugar under control to prevent complications. Stressed the importance of avoiding bare foot walking, wearing good shoes and inspection of feet Instructions given both oral and written. 3. Discussed dystrophic toenails of b/l feet. Discussed various etiologies not limited to fungal infection of the toe vs trauma. Discussed various treatment options not limited to topical medication vs oral medication vs laser therapy vs removal. Patient is interested in lamisil. Will start her on lamisil pending fungal culture. Will also perform fungal culture 4. Toenails 1-5 b/l debrided in length and thickness. Geri Fabian DPM * Carolyn Stacy LPN - 03/01/2024 3:18 PM EST AMB ROOMING INTAKE FLOWSHEET DATA Patient presents with: Left Foot - New, Diabetic Foot Care, nail defformity Right Foot - New, Diabetic Foot Care, nail deformity Carolyn Stacy LPN documented in this encounterOur [facility] Of [facility]12-19-2024 NoteHNO ID: [id number] Author: CAROLYN STACY LPN Service: ? Author Type: LICENSED NURSE Type: Progress Notes Filed: 03/02/2024 16:12 Note Text: AMB ROOMING INTAKE FLOWSHEET DATA Patient presents with: Left Foot - New, Diabetic Foot Care, nail defformity Right Foot - New, Diabetic Foot Care, nail deformity [facility] History of Present illness Narrative* Richard Winn RD - 02/07/2024 3:30 PM EST Joellen Gant Education Class: Patient will receive instruction regarding healthy food choices and eating behaviors identified as optimal when preparing for surgery, losing weight after surgery, and maintaining weight loss long-term. Patient will also receive instruction regarding the Bariatric Full Liquid diet following surgery and optimal post-operative high-protein supplement choices. Education class to be completed prior to surgery. Behaviors Accomplished: Visit # 6 Date: 02/07/2024 Weight: 105.7 kg (233 lb)-26 lb weight loss since initial in office encounter Behaviors that helped/hindered weight loss: helped---eating more often during the day. Eating 3 meals/one snack Daily multivitamin No high fat/fast foods Adjusted protein due to CKD III - 48-60g 24 hour diet recall Breakfast: 2 eggs, 2 pieces toast Lunch: grapes, string cheese Dinner: taco salad -tomato/cheese/ranch Snacks: arnel marin breakfast with Fluids (liquid intake-oz): yesterday: 3-4, 17 oz bottles water Protein (grams/day): yesterday: ~ 52 g Alcohol/Caffeine/Sugar/Sweetener/Carbonation Beverages in Diet: Carbonation: 1 soda yesterday Caffeine: none Sugar: eliminated Sweeteners: none Alcohol: none Exercise: no formal exercise Written information provided and reviewed: As noted Preop patient currently in month #6 of supervised diet and exercise. Presents with a 26 pound weight loss since initial in office encounter. She has lost 3 more pounds since her previous RD visit. She reports eating more often during the day and she believes that this has helped with her weight loss. She has not yet started maintaining a food journal-provided patient with food journal at today's appointment. Of note, she has adjusted protein goal due to CKD. She has been able to eliminate chocolate milk from her diet, but had 1 soda yesterday. We discussed the need to discontinue this to obtain nutrition clearance. She has not yet started a formal exercise routine. Plan to follow-up with patient in 1 month to assess progress towards goals. Goals aim for 3 meals or 5-6 small meals per day with a protein source - can use 1 protein shake as 1 meal replacment aim to eat every 2-3 hours (5-6 small meals per day ) eliminate carbonation containing beverages from diet formal exercise 5-7x/week as tolerated, goal of 30 minutes OR 150 minutes of activity per week -- chair exercises journal daily and bring to all appointments-meet protein and fluid goals 5 days/week (48-60 g per day and 64 oz/day) The patient meets NIH guidelines for weight loss surgery and has been thoroughly evaluated and educated on good dietary practices. Patient is capable of following these guidelines pre-and post-surgically. From nutrition standpoint, the has partially met nutrition clearance and will need to demonstrate aim for consistent meals (5-6 small meals per day), meeting 48-60g protein/64 oz fl 5-7 days perweek, eliminate carbonation containing beverages from diet, tracking via food journal 5-7 days per week, increase formal exercise 150 min/week - chair exercises to receive nutrition clearance. Plan: Follow up with RD in 1 month in office Total time in direct patient contact = 16 min. Greater than 50% of the time was spent in counselingand/or coordination of care. Richard Winn RD This note was generated using voice recognition technology and may contain grammatical errors. documented in this encounterOur Lady Of Mercy Hospital11-26-2024 NoteEducation (AGGENS4) JOELLEN GANT ([id number]) 1965 F CHT Date Time Provider Department 02/07/24 3:30 PM RICHARD WINN AGGENS4 Reason for Visit: Established Patient [175] Primary Visit Diagnosis:Dietary counseling and surveillance [Z71.3] During your visit today, we recorded the following information about you: Weight Height 105.7 kg 1.588 m Allergies As of Date: 02/07/2024 Noted Allergy Reaction IV CONTRAST (IODINE) 04/14/2023 7 - Swelling SEASONAL ALLERGIES 04/08/2021 5 - Intolerance Date Reviewed: 02/01/2024 Reviewed by: Gunner Sutton APRN.LAST PATTERN GRADER - Fully Assessed Prescriptions as of 02/08/2024 - torsemide (DEMADEX) 20 mg tablet Take 1 tablet by mouth once daily. - cholecalciferol (VITAMIN D3) 50 mcg (2,000 [...] tablet by mouth twice a day - levothyroxine (SYNTHROID) 100 mcg tablet Take 1 tablet by mouth once daily. Per [facility]. - colestipol (COLESTID) 1 gram tablet Take [...] mask of choice, HUMIDITY. LIFETIME SUPPLIES. DME: [facility] Follow-up and Disposition History for Encounter Date Provider Department Center 02/07/2024 [id number], TESS AGGENS4 Miryam Young Encounter Status:Closed by RICHARD WINN on 02/08/24[facility] 02-07-2024 NoteHNO ID: [id number] Author: RICHARD WINN, EILEEN Service: ? Author Type: Registered Dietitian Type: Progress Notes Filed: 02/08/2024 10:27 Note Text: Joellen Gant Education Class: Patient will receive instruction regarding healthy food choices and eating behaviors identified as optimal when preparing for surgery, losing weight after surgery, and maintaining weight loss long-term. Patient will also receive instruction regarding the Bariatric Full Liquid diet following surgery and optimal post-operative high-protein supplement choices. Education class to be completed prior to surgery. Behaviors Accomplished: Visit # 6 Date: 02/07/2024 Weight: 105.7 kg (233 lb)-26 lb weight loss since initial in office encounter Behaviors that helped/hindered weight loss: helped---eating more often during the day. Eating 3 meals/one snack Daily multivitamin No high fat/fast foods Adjusted protein due to CKD III - 48-60g 24 hour diet recall Breakfast: 2 eggs, 2 pieces toast Lunch: grapes, string cheese Dinner: taco salad -tomato/cheese/ranch Snacks: arnel marin breakfast with Fluids (liquid intake-oz): yesterday: 3-4, 17 oz bottles water Protein (grams/day): yesterday: ~ 52 g Alcohol/Caffeine/Sugar/Sweetener/Carbonation Beverages in Diet: Carbonation: 1 soda yesterday Caffeine: none Sugar: eliminated Sweeteners: none Alcohol: none Exercise: no formal exercise Written information provided and reviewed: As noted Preop patient currently in month #6 of supervised diet and exercise. Presents with a 26 pound weight loss since initial in office encounter. She has lost 3 more pounds since her previous RD visit. She reports eating more often during the day and she believes that this has helped with her weight loss. She has not yet started maintaining a food journal-provided patient with food journal at today's appointment. Of note, she has adjusted protein goal due to CKD. She has been able to eliminate chocolate milk from her diet, but had 1 soda yesterday. We discussed the need to discontinue this to obtain nutrition clearance. She has not yet started a formal exercise routine. Plan to follow-up with patient in 1 month to assess progress towards goals. Goals aim for 3 meals or 5-6 small meals per day with a protein source - can use 1 protein shake as 1 meal replacment aim to eat every 2-3 hours (5-6 small meals per day ) eliminate carbonation containing beverages from diet formal exercise 5-7x/week as tolerated, goal of 30 minutes OR 150 minutes of activity per week -- chair exercises journal daily and bring to all appointments-meet protein and fluid goals 5 days/week (48-60 g per day and 64 oz/day) The patient meets NIH guidelines for weight loss surgery and has been thoroughly evaluated and educated on good dietary practices. Patient is capable of following these guidelines pre-and post-surgically. From nutrition standpoint, the has partially met nutrition clearance and will need to demonstrate aim for consistent meals (5-6 small meals per day), meeting 48-60g protein/64 oz fl 5-7 days per week, eliminate carbonation containing beverages from diet, tracking via food journal 5-7 days per week, increase formal exercise 150 min/week - chair exercises to receive nutrition clearance. Plan: Follow up with RD in 1 month in office Total time in direct patient contact = 16 min. Greater than 50% of the time was spent in counseling and/or coordination of care. Richard Winn RD This note was generated using voice recognition technology and may contain grammatical errors.[facility]11-21-2024 Telephone encounter Note* Telephone Encounter - Cassie Suh RN - 02/02/2024 9:21 AM EST 2nd Nephrology clearance letter sent/faxed to Britni Lockwood APRN.LAST PATTERN GRADER. Cassie Suh RN, BSN Bariatric Front Office Director [facility]11-21-2024 Miscellaneous Notes* Telephone Encounter - Cassie Suh RN - 02/02/2024 9:21 AM EST 2nd Nephrology clearance letter sent/faxed to Britni Lockwood APRN.LAST PATTERN GRADER. Cassie Suh RN, BSN Bariatric Front Office Director * Telephone Encounter - Cassie Suh RN - 02/02/2024 9:12 AM EST Gastroenterology clearance letter sent/faxed to Dr. Kemar Burroughs Friend, DO. Cassie Suh RN, BSN Bariatric Front Office Director documented in [facility] encounter[facility] Telephone encounter Note * Telephone Encounter - Cassie Suh RN - 02/02/2024 9:12 AM EST Gastroenterology clearance letter sent/faxed to Dr. Kemar Byrnes, DO. Cassie Suh RN, BSN Bariatric Front Office Director [facility]11-20-2024 NoteHNO ID: [id number] Author: GUNNER SUTTON APRN.ERICK Service: ? Author Type: Nurse Practitioner Type: Progress Notes Filed: 02/01/2024 19:02 Note Text: BARIATRIC SURGERY CLINIC FOLLOW UP [...] visit. Either the patient or their legal termite control representative has been informed of the risks and benefits of -- and alternatives to -- treatment through a remote evaluation and consents to proceed with the evaluation remotely. HPI: Joellen Gant a 59 year old female presents for medically supervised weight loss treatment of her obesity related co morbidities. This individual presents for month 5 of 6 required visits. Joellen Gant weight has decreased since first visit in the program. Joellen has been doing well with nutritional recommendations. Denies recent illnesses, hospitalizations, and medication changes. She endorses her abdominal pain has come back and believes she might need Creon dose adjustment so she plans to follow up with GI. She underwent liver biopsy at [facility] on 01/[address] Byrnes. Pathology showed: Liver parenchymal tissue with focal minimal macrovesicular steatosis and minimal portal chronic inflammation. She is actively trying to get off of her diclofenac before surgery. HISTORY REVIEWED (electronic chart updated): - medical history - medications - allergies PAST MEDICAL HISTORY Diagnosis Date Asthma 06/13/2008 Atypical chest pain 01/2019 heart cath normal Bile-induced gastritis 04/08/2021 Calcium deposits in tendon and bursa right knee Carpal tunnel syndrome, bilateral 10/16/2015 Chronic cholecystitis 07/22/2020 Chronic midline low back pain without sciatica 07/31/2015 CKD stage 3a, GFR 45-59 ml/min ([facility]) Colon polyp 07/17/2020 Dermatophytosis of the body Edema 06/13/2008 GERD (gastroesophageal reflux disease) 07/29/2010 Hiatal hernia 07/17/2020 medium sized seen on EGD Infectious mononucleosis Irregular menstrual cycle Irritable bowel syndrome with diarrhea 08/04/2015 Morbid obesity with BMI of 45.0-49.9, adult ([facility]) Obesity, Class III, BMI 40-49.9 (morbid obesity) ([facility]) 07/27/2017 Stage 3a chronic kidney disease ([facility]) 04/08/2021 Tobacco use disorder Unspecified hearing loss left ear - wears hearing aid Unspecified hypothyroidism Social: Social History Tobacco Use Smoking status: Former Current packs/day: 0.00 Average packs/day: 1 pack/day for 15.0 years (15.0 ttl pk-yrs) Types: Cigarettes Start date: 05/30/1994 Quit date: 05/30/2009 Years since quittin.6 Smokeless tobacco: Never Tobacco comments: started age 16 Vaping Use Vaping status: Never Used Substance Use Topics Alcohol use: Not Currently Drug use: Never Medications: Current Outpatient Medications Medication Sig torsemide (DEMADEX) 20 mg tablet Take 1 tablet by mouth once daily. cholecalciferol (VITAMIN D3) 50 mcg (2,000 unit) tablet Take 1 tablet by mouth once daily. CREON 36,000-114,000- 180,000 unit delayed release capsule [...] Take 1 capsule by mouth once daily. diclofenac, EC, (VOLTAREN) 75 mg EC tablet take 1 tablet by mouth twice a day levothyroxine (SYNTHROID) 100 mcg tablet Take 1 tablet by mouth once daily. Per [facility]. colestipol (COLESTID) 1 gram tablet Take [...] tablet 0.4 mg. aspirin, enteric coated (ASPIRIN, (more content not included)...[facility]11-20-2024 History of Present illness Narrative* Gunner Sutton APRN.LAST PATTERN GRADER - 02/01/2024 2:48 PM EST BARIATRIC SURGERY CLINIC FOLLOW UP NOTE DISTANCE HEALTH VISIT This Team Access Model visit is a virtual encounter. It required patient- provider interaction for the medical decision making as documented below. Consent was obtained to complete today's distance health visit. I have communicated my name and active licensure. The patient's identity and physical location wereverified at the time of this visit. Either the patient or their legal termite control representative has been informed of the risks and benefits of -- and alternatives to -- treatment through a remote evaluation andconsents to proceed with the evaluation remotely. HPI: Joellen Gant a 59 year old female presents for medically supervised weight loss treatment ofher obesity related co morbidities. This individual presents for month 5 of 6 required visits. Royer Gant weight has decreased since first visit in the program. Joellen has been doing well with nutritional recommendations. Denies recent illnesses, hospitalizations, and medication changes. She endorses her abdominal pain has come back and believes she might need Creon dose adjustment so she plans to follow up with GI. She underwent liver biopsy at [facility] on 01/[address] Byrnes. Pathology showed: Liver parenchymal tissue with focal minimal macrovesicular steatosis and minimal portal chronic inflammation. She is actively trying to get off of her diclofenac before surgery. HISTORY REVIEWED (electronic chart updated): - medical history - medications - allergies PAST MEDICAL HISTORY Diagnosis Date Asthma 06/13/2008 Atypical chest pain 01/2019 heart cath normal Bile-induced gastritis 04/08/2021 Calcium deposits in tendon and bursa right knee Carpal tunnel syndrome, bilateral 10/16/2015 Chronic cholecystitis 07/22/2020 Chronic midline low back pain without sciatica 07/31/2015 CKD stage 3a, GFR 45-59 ml/min ([facility]) Colon polyp 07/17/2020 Dermatophytosis of the body Edema 06/13/2008 GERD (gastroesophageal reflux disease) 07/29/2010 Hiatal hernia 07/17/2020 medium sized seen on EGD Infectious mononucleosis Irregular menstrual cycle Irritable bowel syndrome with diarrhea 08/04/2015 Morbid obesity with BMI of 45.0-49.9, adult ([facility]) Obesity, Class III, BMI 40-49.9 (morbid obesity) ([facility]) 07/27/2017 Stage 3a chronic kidney disease (HCC) 04/08/2021 Tobacco use disorder Unspecified hearing loss left ear - wears hearing aid Unspecified hypothyroidism Social: Social History Tobacco Use Smoking status: Former Current packs/day: 0.00 Average packs/day: 1 pack/day for 15.0 years (15.0 ttl pk-yrs) Types: Cigarettes Start date: 05/30/1994 Quit date: 05/30/2009 Years since quittin.6 Smokeless tobacco: Never Tobacco comments: started age 16 Vaping Use Vaping status: Never Used Substance Use Topics Alcohol use: Not Currently Drug use: Never Medications: Current Outpatient Medications Medication Sig torsemide (DEMADEX) 20 mg tablet Take 1 tablet by mouth once daily. cholecalciferol (VITAMIN D3) 50 mcg (2,000 unit) tablet Take 1 tablet by mouth once daily. CREON 36,000-114,000- 180,000 unit delayed release capsule [...] Take 1 capsule by mouth once daily. diclofenac, EC, (VOLTAREN) 75 mg EC tablet take 1 tablet by mouth twice a day levothyroxine (SYNTHROID) 100 mcg tablet Take 1 tablet by mouth once daily. Per [facility]. colestipol (COLESTID) 1 gram tablet Take [...] mask of choice, HUMIDITY. LIFETIME SUPPLIES. DME: [facility] No current facility-administered medications for this [...] disorder and recent psychosocial stressors PHYSICAL EXAMINATION Wt 103 kg (227 lb) LMP (LMP Unknown) BMI 40.86 kg/m GENERAL APPEARANCE: Pleasant, interacts appropriately and in no apparent distress. Appropriately groomed, happy, smiling, and interactive. SKIN: Skin of normal texture, without rashes/lesions/ulcerations. LUNGS: Unlabored on room air - negative findings: normal respiratory rate, no cough. NEURO/PSYCH: Oriented to person, place, time; appropriate insight and judgement. Appropriate affect. Diagnostic Tests Reviewed for Today's Visit No new labs The plan of treatment for Joellen Gant is: Further Work-up: Required monthly visits: 5 of 6 months Patient is interested in: [...] No Estrogen therapy: No Evaluations: Psychology: ongoing 04/13 Nutrition: ongoing 02/06 Education class: ongoing Clearances: -Cardiac (low risk; [facility]- Porfirio Jeff CNP) -Pulmonary (mod risk; [facility]- Lani Anderson CNP) -Nephrology (CKD; Britni Lockwood CNP) -Gastroenterology ([facility]; Dr. Byrnes- liver biopsy 12/13 for cirrhosis found on US) -PCP Risk Calculator: VTE Risk: 0.31 - 0.49% ISS score: not diabetic Adverse Event score: NA Post-op Medications: Extended Lovenox: Yes for RYGB Actigall: No, s/p cholecystectomy PPI: currently taking pantoprazole + omeprazole Tylenol: Yes Zofran: Yes Total time in direct patient contact = 30 minutes. Greater than 50% of the time was spent in counseling and/or coordination of care. This note was generated using voice recognition technology and may contain grammatical errors. ASSESSMENT/PLAN: 1. Class 3 drug-induced obesity with serious comorbidity and body mass index (BMI) of 40.0 to 44.9 in adult (HCC) - ICD9: 278.01, V85.41, ICD10: E66.813, E66.1, Z68.41 (primary diagnosis) Weight decreasing - Medical nutrition therapy with dietitian and - Psychology Nutrition Counseling Practice these: - Eat 3 meals daily--can use approved/recommended protein shake as 1 meal replacement (should be <200 calories, 20-30g protein, <5g added sugar) - Keep a food journal 5-7x/week (consider BeneChill or Archiver's sue) and demonstrate meeting protein goal (60-90g protein for females, 70-105g protein for males)- Lean meats, fish, low fat dairy - cottage cheese, Turkmen yogurt, light yogurt, cheese, ricotta cheese, nuts, [...] ICD9: 327.23, ICD10: G47.33 - Continue BiPAP nightly. 3. Chronic kidney disease, unspecified CKD stage - ICD9: 585.9, ICD10: N18.9 - Recently saw nephrology. Will request surgical clearance. All testing complete. She has cardiac and pulmonary clearance and needs psych, RD, nephrology, and GI clearance. F/u with SHIPFITTER APPRENTICE in 4 weeks. Gunner Sutton APRN.ERICK Medical Decision Making: Problems: Moderate: 2+ stable chronic illnesses Data: Unique source(s) for external note(s) reviewed: 1 Unique test result(s) reviewed: 1 Assessment requiring an independent historian(s) Medical Decision Making Level: 4 - Moderate documented in this encounterOur [facility]11-[facility] Telephone encounter Note * Telephone Encounter - Cindy Schrader - 01/23/2024 2:38 PM EST Pt no showed Dr. Steel on 01/23/24. This is the first no show. Sent no show letter [facility]11-11-2024 Miscellaneous Notes* Telephone Encounter - Cindy Schrader - 01/23/2024 2:38 PM EST Pt no showed Dr. Steel on 01/23/24. This is the first no show. Sent no show letter documented in this encounterOur Lady Of Mercy Hospital11-08-2024 Instructions* Patient Instructions* rBitni Lockwood APRN.ERICK - 01/20/2024 2:58 PM EST -Labs to be done today and prior to next visit. -Stop Voltaren or reduce to the lowest dose -Reduce Torsemide to 20 mg daily -Recommend BP goal of 130s/80 or less. [...] or less as CKD goal. -Please avoid Advil, Ibuprofen(Motrin), Aleve(Naproxen), Meloxicam(Mobic), diclofenac and other pain/arthritis medications called NSAIDS. It is ok to take acetaminophen (Tylenol) for pain as needed -Please avoid contrast dye with imaging. If a provider wants to order CT or MRI with contrast, please let them know you have decreased kidney function. -Increase activity as tolerated. RTC 3 months. documented in this encounterOur Lady Of Mercy Hospital11-08-2024 History of Present illness Narrative* Britni Lockwood APRN.ERICK - 01/20/2024 2:00 PM EST [facility] SERVICE DATE: 01/20/2024 SERVICE TIME: 2:51 PM CHIEF COMPLAINT: Follow up CKD 3A/B HPI: Ms. 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 Feels well today but still struggling with arthritis. BPs at home are not checked. Weights: Has lost 30 lbs over the past year. Medication adherence is good Using NSAIDS Aleve "rarely" although be discussed in-depth. Eating abrams and sausage. Not following low Na diet but states she does not add salt. Drinking 80 oz of water per day. Assessment/Plan from TAYLOR with me on 11/18/23. CKD Stage 3B, non proteinuric, related to right renal atrophy, with last SCR 1.1. Risk progression includes continued NSAID use, PPI use and BMI >45. PLAN: -STOP Voltaren otherwise use the lowest [...] 150 minutes every week. RTC 6 months PAST MEDICAL HISTORY: ACTIVE PROBLEM LIST Asthma Edema Veto On Cpap Gerd (Gastroesophageal Reflux Disease) Irritable Bowel Syndrome With Diarrhea Obesity, Class Iii, Bmi 40-49.9 (Morbid Obesity) (Hcc) Stage 3a Chronic Kidney Disease ([facility]) Atypical Chest Pain Bile-Induced Gastritis Colon Polyp Subclinical Hypothyroidism Eczema No Appetite MEDICATIONS: cholecalciferol (VITAMIN D3) 50 mcg (2,000 unit) tablet Take 1 tablet by mouth once daily. CREON 36,000-114,000- 180,000 unit delayed release capsule [...] Take 1 capsule by mouth once daily. diclofenac, EC, (VOLTAREN) 75 mg EC tablet take 1 tablet by mouth twice a day torsemide (DEMADEX) 20 mg tablet take 1 tablet by mouth twice a day (STOP FUROSEMIDE) levothyroxine (SYNTHROID) 100 mcg tablet Take 1 tablet by mouth once daily. Per [facility]. colestipol (COLESTID) 1 gram tablet Take [...] 1 tablet by mouth every afternoon. Per [facility] olopatadine (PATANOL) 0.1 % ophthalmic [...] mask of choice, HUMIDITY. LIFETIME SUPPLIES. DME: [facility] ALLERGIES: ALLERGIES Allergen Reactions Iv Contrast [Iodine] Swelling Seasonal Allergies Intolerance PHYSICAL EXAM: LMP (LMP Unknown) BP - standardized method Pulse 1 BP #1: 108/72 Pulse #1: 60 beats/min 2 BP #2 : 95/63 Pulse #2 : 60 beats/min 3 BP #3 : 98/67 Pulse #3 : 61 beats/min Average Average BP: 100/67 Average Pulse: 60 beats/min BP cuff location BP cuff location: Left upper arm BP cuff size BP cuff size: extra large adult Constitutional:No acute distress, Responsive, Normal habitus, and Well-nourished Neck:Trachea midline No jugular venous distension Cardiovascular:No peripheral edema Regular rate and ryhthm, normal S1 and S2, no murmurs, rubs, or gallops Respiratory:Normal respiratory effort. Lungs clear bilaterally. Abdomen:Soft, non-tender, non-distended. Normal bowel sounds. No hepatosplenomegaly. Psychiatric: Alert and oriented x self, place, time, and setting Normal mood/affect DATA: Diagnostic tests reviewed for today's visit: Sodium (mmol/L) Date Value 10/07/2023 141 07/13/2023 141 01/27/2023 139 Creatinine (mg/dL) Date Value 10/07/2023 1.39 (H) 07/13/2023 1.25 (H) 01/27/2023 1.07 (H) Vitamin D 25 Hydroxy (ng/mL) Date Value 11/04/2023 33.7 PTH, Intact (pg/mL) Date Value 01/04/2024 131 (H) 11/04/2023 166 (H) 10/07/2023 288 (H) Potassium [...] imaging and other tests were reviewed ASSESSMENT: 59 year old female who presents with PMHx with CKD 3, VETO on CPAP, GERD, IBS and Obesity. CKD Stage 3B, non proteinuric, related to right renal atrophy, with last SCR 1.39 with noted progression. Risk progression includes continued NSAID use, PPI use and BMI >45 although she is workingthrough the bariatric program in hopes of RYGB. Kidney sizes: - Ultrasound done 11/2022: - [...] 3.125 BID, Torsemide 20 BID, spironolactone 25 - BP stable with improved edema - Reduce torsemide to 20 mg daily. Metabolic/electrolytes: - K: 4.9 previously on supplement [...] after 6 month trial of diet and lifestylechange as required by insurance. GERD: - On PPI - Would replace with famotidine if patient is agreeable. PLAN: -Labs to be done today and prior to next visit. -Stop Voltaren or reduce to the lowest dose -Reduce Torsemide to 20 mg daily -Recommend BP goal of 130s/80 or less. [...] or less as CKD goal. -Please avoid Advil, Ibuprofen(Motrin), Aleve(Naproxen), Meloxicam(Mobic), diclofenac and other pain/arthritis medications called NSAIDS. It is ok to take acetaminophen (Tylenol) for pain as needed -Please avoid contrast dye with imaging. If a provider wants to order CT or MRI with contrast, please let them know you have decreased kidney function. -Increase activity as tolerated. RTC 3 months. I spent a total of 34 minutes on the date of the service which included preparing to see the patient, [id number] patient care, completing clinical documentation, obtaining and/or reviewing separately obtained history, performing a medically appropriate examination, counseling and educating the pat ient/family/caregiver, ordering medications, tests, or procedures, communicating with other HCPs (not separately reported), independently interpreting results (not separately reported), and communicating results to the patient/family/caregiver. All documentation from previous visit was copied and pasted, documentation has been reviewed and edited as necessary for today's visit. SIGNATURE: Britni Lockwood APRN.ERICK PATIENT NAME: Joellen Gant DATE: January 16, 2024 TIME: 2:51 PM OFFICE NUMBER: [phone] CC: PRIMARY CARE PHYSICIAN: Sam Null MD documented in this encounterOur Lady Of Mercy Hospital11-08-2024 NoteHNO ID: [id number] Author: BRITNI LOCKWOOD APRN.CNP Service: ? Author Type: Nurse Practitioner Type: Progress Notes Filed: 01/23/2024 08:13 Note Text: [facility] SERVICE DATE: 01/20/2024 SERVICE TIME: 2:51 PM CHIEF COMPLAINT: Follow up CKD 3A/B HPI: Ms. 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 Feels well today but still struggling with arthritis. BPs at home are not checked. Weights: Has lost 30 lbs over the past year. Medication adherence is good Using NSAIDS Aleve "rarely" although be discussed in-depth. Eating abrams and sausage. Not following low Na diet but states she does not add salt. Drinking 80 oz of water per day. Assessment/Plan from TAYLOR with me on 11/18/23. CKD Stage 3B, non proteinuric, related to right renal atrophy, with last SCR 1.1. Risk progression includes continued NSAID use, PPI use and BMI >45. PLAN: -STOP Voltaren otherwise use the lowest [...] 150 minutes every week. RTC 6 months PAST MEDICAL HISTORY: ACTIVE PROBLEM LIST Asthma Edema Veto On Cpap Gerd (Gastroesophageal Reflux Disease) Irritable Bowel Syndrome With Diarrhea Obesity, Class Iii, Bmi 40-49.9 (Morbid Obesity) (Hcc) Stage 3a Chronic Kidney Disease (Hcc) Atypical Chest Pain Bile-Induced Gastritis Colon Polyp Subclinical Hypothyroidism Eczema No Appetite MEDICATIONS: cholecalciferol (VITAMIN D3) 50 mcg (2,000 unit) tablet Take 1 tablet by mouth once daily. CREON 36,000-114,000- 180,000 unit delayed release capsule [...] Take 1 capsule by mouth once daily. diclofenac, EC, (VOLTAREN) 75 mg EC tablet take 1 tablet by mouth twice a day torsemide (DEMADEX) 20 mg tablet take 1 tablet by mouth twice a day (STOP FUROSEMIDE) levothyroxine (SYNTHROID) 100 mcg tablet Take 1 tablet by mouth once daily. Per [facility]. colestipol (COLESTID) 1 gram tablet Take [...] 1 tablet by mouth every afternoon. Per [facility] olopatadine (PATANOL) 0.1 % ophthalmic [...] mask of choice, HUMIDITY. LIFETIME SUPPLIES. DME: [facility] Fax (more content not included)... [facility]10-24-2024 Instructions* Patient Instructions* Burak Schrader, RD - 01/05/2024 3:41 PM EDT Jarrett Gant It was a pleasure to speak with you today and thank you for using [employer]! - use the healthyplate method to make meals--1/2 plate non-starchy vegetables (broccoli, cauliflower, green beans, lettuce, carrots, asparagus), 3-4oz lean protein (chicken, fish, lean beef, lean pork) or protein alternative and 1/2c to 1 cstarch (whole grain rice, whole grain pasta, potatoes, corn, peas, quinoa, cous cous). *always eat protein/fiber foods first Focus on meeting 64 oz + of fluid and daily protein goals!! Some good protein suggestions are: Seafood Tuna, tilapia, grouper, soft flaky fish such as cod, evonne, sea galindo - canned or fresh Shellfish Scallops, lobster, shrimp, crab - canned or fresh Dairy Low fat, sugar-free or carbohydrate-controlled Turkmen yogurt without visible fruit pieces. Low fat cottage cheese, ricotta cheese, arizmendi s cheese or other soft cheeses Eggs Eggbeaters , egg whites or whole eggs (no more than 1 egg yolk per day): boiled, scrambled, baked, poached (avoid fried or under cooked eggs) Poultry [place], chicken, game hen, duck breast. Deli such as roast turkey breast or chicken breast - cannedor fresh Legumes Black beans, kidney (red) beans, garbanzo beans, white beans, lentils etc. Hummus and pureed beans may be well tolerated Tofu Tofu, Boca Burger (without the bun), [employer]ur Farms soy products Meat Ham (red meat and pork may be difficult to digest; always check your tolerance level) Low sodium, rind-less, no sugar added cold-cuts and deli meats - canned or fresh Non-Starchy Vegetables: Use fresh or frozen without added sauces, cheese or gravies. Good examples of (Non-starchy) vegetables are: broccoli and cauliflower florets, tender green beans, soft yellow squash,zucchini, soft eggplant, cucumbers, soft asparagus, Milmay sprouts, carrots, parsnips, rutabaga, beets, snow peas, plantain, sweet leeks, scallions, shallots, onions, green beans, lettuce, creamed spinach, kale, collards, cabbage, legumes, squash, mushrooms, peppers, tomatoes, herbs like parsley, basil, thyme, lan. If using canned, choose low sodium and rinse under cool water. Avoid toughstalks and vegetables that are too fibrous or hard to chew. If experiencing gas, avoid onions, garlic, leeks, cabbage, broccoli, cauliflower and other gas producing vegetables. Complex Carbohydrates (examples below) Cereals and Grains Amaranth, bran, barley, brown rice, bulgur, buckwheat, cornmeal, grits, kasha, kamut, millet, muesli, oats, quinoa, rye, semolina, 100% whole wheat, wheat germ and wild rice. When choosing a cereal, choose one that has less than 5 grams of sugar per serving and has at least 5 grams of fiber per serving. Breads, Crackers, Pitas, Look for 100% whole grain, stone-ground, multigrain or 100% whole wheat breads, Tortillas, Pastas and Rice crackers and pastas. Crow and Spelt breads, Arnold s Whole grainClassic, PepperADTELLIGENCE Farms Whole Grain. Crackers such as Wasa, Ryvita, Kalvi and Hima brands. Pastassuch as [place] Healthy Salida, Barila Plus, Sifuentes s Whole Grain. Rice brands such as: Dov- Malik brown rice, Alyssa Foods whole grain rice, Quang s brown rice, Success whole grain brown rice and Uncle Eulalio s brown or wild rice. Starchy Vegetables [place], peas, plantain, potato (sweet or white), yams, squash or yucca.Legumes andBeans Soybeans (edamame), lentils, peas. Beans such as black, red, white, navy, northern, kidney orlima. Soak dried beans over night to reduce gas production. Fruits: Use fresh or frozen without added sugar, syrup or cream. Always wash your fresh fruit undercool running water. Peel fresh fruit. Good examples of fresh fruit are: peaches, apples, nectarines, plums, cherries, strawberries, apricots, blueberries, melons, bananas, grapes, figs, papaya, mangos, avocados, pears, persimmons. Avoid fruit that is too fibrous or hard to chew such as coconut and the rind of the orange. It s recommended that you peel fresh fruit before eating when first introducing in your diet. If using canned fruit, choose sugar-free or no sugar added and syrup. Use caution when eating fruits with seeds or pits. Please let me know if you have any questions, Burak Schrader RD documented in this encounterOur Lady Of Mercy Hospital10-24-2024 History of Present illness Narrative* Burak Schrader, RD - 01/05/2024 3:00 PM EDT Joellen Gant Patient seen in office Education Class: Patient will receive instruction regarding healthy food choices and eating behaviors identified as optimal when preparing for surgery, losing weight after surgery, and maintaining weight loss long-term. Patient will also receive instruction regarding the Bariatric Full Liquid diet following surgery and optimal post-operative high-protein supplement choices. Education class to be completed prior to surgery. Behaviors Accomplished: Visit # 5/6 Date: 01/05/24 Today's Weight: 236 lbs Last in-office weight: (w/ RD 10/12) 255 lbs Initial Weight (Dr. Herzog 09/07): 259 lbs Behaviors that helped/hindered weight loss: helped Daily multivitamin Eat slowly,chew well No high fat/fast foods Last 5 Encounter Wt Readings: Date: Wt: 12/12/2023 108.9 kg (240 lb) 11/18/2023 116 kg (255 lb 13.5 oz) 10/14/2023 115.8 kg (255 lb 4.7 oz) 10/13/2023 115.8 kg (255 lb 3.2 oz) 09/20/2023 117 kg (258 lb) 24 hr recall: B: 1 egg and 2 pc abrams L: grapes Exercise: struggling with knee pain - mostly ADLs Caffeine: eliminated coke, coffee, tea Art. Sweeteners: none Full Sugar: occasionally chocolate milk Carbonation: eliminated coke, coffee, tea Alcohol: none Dining out: <1x/week - discussed avoiding all fried foods Sipping slowly/frequently: practicing Taking small bites/chewing 20-30x per bite: Yes food and fluid by 30 minutes: practicing Starting weight 259 lbs, current weight 236 lbs Adjusted protein due to CKD III - 48-60g Patient presents for month 5 of 6 supervised diet and exercise, demonstrates a 23# loss since her initial visit in August, she has lost 19# since October. She states there are days when doesn't have an appetite and does not end up eating. Overall she may only be eating 1-2 day, after we met initially she was eating every 2-3 hours and did very well with it. She has fallen off track with her eating schedule. She has been using protein shakes, would benefit from 1/2 shake per sitting due to early satiety. She has found a protein shake she does like! Verbalizes that she has not been keeping a food journal (does have food journal at home), reports that she gets too overwhelmed and can't put pen topaper - will have bariatric psychologist work with her. Did let patient know we can focus on this last. Does report eliminating coke/coffee and is sticking to water and uns almond milk at this time. Is not focusing on formal exercise at this time, will provide chair exercises today. Reports taking daily MV (alive w/ energy). Patient did have questions related to surgery, may benefit from meeting surgeon in future to discuss. The patient meets NIH guidelines for weight loss surgery and has been thoroughly evaluated and educated on good dietary practices. Patient is capable of following these guidelines pre-and post-surgically. From nutrition standpoint, the has partially met nutrition clearance and will need to demonstrate aim for consistent meals (5-6 small meals per day)/not skipping meals, meeting 48-60g protein/64oz fl 5-7 days per week, tracking via food journal 5-7 days per week, increase formal exercise 150 min/week - chair exercises to receive nutrition clearance. Plan: follow up with RD 1 month in office for weight check and food journal review I spent 25 minutes in the visit, with more than 50% of the total yrhb-io-toua time of the visit in counseling / coordination of care. Burak Schrader RD This note was generated using voice recognition technology and may contain grammatical errors. documented in this encounterOur Lady Of Mercy Hospital10-24-2024 NoteHNO ID: [id number] Author: BURAK SCHRADER RD Service: ? Author Type: Registered Dietitian Type: Progress Notes Filed: 01/05/2024 16:20 Note Text: Joellen Gant Patient seen in office Education Class: Patient will receive instruction regarding healthy food choices and eating behaviors identified as optimal when preparing for surgery, losing weight after surgery, and maintaining weight loss long-term. Patient will also receive instruction regarding the Bariatric Full Liquid diet following surgery and optimal post-operative high-protein supplement choices. Education class to be completed prior to surgery. Behaviors Accomplished: Visit # 5/ Date: 01/05/24 Today's Weight: 236 lbs Last in-office weight: (w/ RD 10/12) 255 lbs Initial Weight (Dr. Herzog 09/07): 259 lbs Behaviors that helped/hindered weight loss: helped Daily multivitamin Eat slowly,chew well No high fat/fast foods Last 5 Encounter Wt Readings: Date: Wt: 12/12/2023 108.9 kg (240 lb) 11/18/2023 116 kg (255 lb 13.5 oz) 10/14/2023 115.8 kg (255 lb 4.7 oz) 10/13/2023 115.8 kg (255 lb 3.2 oz) 09/20/2023 117 kg (258 lb) 24 hr recall: B: 1 egg and 2 pc abrams L: grapes Exercise: struggling with knee pain - mostly ADLs Caffeine: eliminated coke, coffee, tea Art. Sweeteners: none Full Sugar: occasionally chocolate milk Carbonation: eliminated coke, coffee, tea Alcohol: none Dining out: <1x/week - discussed avoiding all fried foods Sipping slowly/frequently: practicing Taking small bites/chewing 20-30x per bite: Yes food and fluid by 30 minutes: practicing Starting weight 259 lbs, current weight 236 lbs Adjusted protein due to CKD III - 48-60g Patient presents for month 5 of 6 supervised diet and exercise, demonstrates a 23# loss since her initial visit in August, she has lost 19# since October. She states there are days when doesn't have an appetite and does not end up eating. Overall she may only be eating 1-2 day, after we met initially she was eating every 2-3 hours and did very well with it. She has fallen off track with her eating schedule. She has been using protein shakes, would benefit from 1/2 shake per sitting due to early satiety. She has found a protein shake she does like! Verbalizes that she has not been keeping a food journal (does have food journal at home), reports that she gets too overwhelmed and can't put pen to paper - will have bariatric psychologist work with her. Did let patient know we can focus on this last. Does report eliminating coke/coffee and is sticking to water and uns almond milk at this time. Is not focusing on formal exercise at this time, will provide chair exercises today. Reports taking daily MV (alive w/ energy). Patient did have questions related to surgery, may benefit from meeting surgeon in future to discuss. The patient meets NIH guidelines for weight loss surgery and has been thoroughly evaluated and educated on good dietary practices. Patient is capable of following these guidelines pre-and post-surgically. From nutrition standpoint, the has partially met nutrition clearance and will need to demonstrate aim for consistent meals (5-6 small meals per day)/not skipping meals, meeting 48-60g protein/64 oz fl 5-7 days per week, tracking via food journal 5-7 days per week, increase formal exercise 150 min/week - chair exercises to receive nutrition clearance. Plan: follow up with RD 1 month in office for weight check and food journal review I spent 25 minutes in the visit, with more than 50% of the total zowe-hk-lmar time of the visit in counseling / coordination of care. Burak Schrader RD This note was generated using voice recognition technology and may contain grammatical errors.[facility]10-24-2024 NoteEducation (AGGENS4) JOELLEN GANT ([id number]) 1965 F T Date Time Provider Department 01/05/24 3:00 PM BURAK SCHRADER4 Reason for Visit: Established Patient [175] Primary Visit Diagnosis:Class 3 severe obesity due to excess calories with serious comorbidity and body mass index (BMI) of 45.0 to 49.9 in adult ([facility]) [E66.813, Z68.42, E66.01] During your visit today, we recorded the following information about you: Weight Height 107.4 kg 1.588 m Allergies As of Date: 01/05/2024 Noted Allergy Reaction IV CONTRAST (IODINE) 04/14/2023 7 - Swelling SEASONAL ALLERGIES 04/08/2021 5 - Intolerance Date Reviewed: 12/12/2023 Reviewed by: Gunner Sutton APRN.LAST PATTERN GRADER - Fully Assessed Prescriptions as of 01/05/2024 - cholecalciferol (VITAMIN D3) 50 mcg (2,000 [...] 1 tablet by mouth once daily. Per [facility]. - colestipol (COLESTID) 1 gram tablet [...] 1 tablet by mouth every afternoon. Per [facility] - olopatadine (PATANOL) 0.1 % [...] mask of choice, HUMIDITY. LIFETIME SUPPLIES. DME: [facility] Follow-up and Disposition History for Encounter Date Provider Department Center 01/05/2024 [id number], LINDSEY AGGENS4 [facility] Encounter Status:Closed by BURAK SCHRADER on 01/05/24[facility]10-18-[facility]24 Telephone encounter Note* Telephone Encounter - Britni Lockwood APRN.CNP - 12/30/2023 12:31 PM EDT Sent to [facility]. Britni Lockwood APRN.CNP [facility]10-18-2024 Miscellaneous Notes* Telephone Encounter - Britni Lockwood APRN.CNP - 12/30/2023 12:31 PM EDT Sent to [facility]. Britni Lockwood APRN.CNP * Telephone Encounter - Polly Martins MA - 12/30/2023 8:49 AM EDT Spoke to patient- Patient wants a prescription states that [employer] will pay for it. * Telephone Encounter - Pia Guy RN - 12/29/2023 1:32 PM EDT Called to advise 2000 units Vitamin D daily. Patient requesting script for financial reasons. * Telephone Encounter - Ebony Monroy - 12/26/2023 11:00 AM EDT Name of Caller: joellen Relationship to patient: patient Last visit in this department: 11/18/2023 Reason for Call: Other : wants to know what vitamin D supp she should be taking Callback number: [phone] documented in this encounterOur Lady Of Mercy Hospital10-18-2024 Telephone encounter Note * Telephone Encounter - Polly Martins MA - 12/30/2023 8:49 AM EDT Spoke to patient- Patient wants a prescription states that [facility] will pay for it. [facility]10-17-[facility]24 Telephone encounter Note* Telephone Encounter - Pia Guy RN - 12/29/2023 1:32 PM EDT Called to advise 2000 units Vitamin D daily. Patient requesting script for financial reasons. [facility]10-14-[facility]24 Telephone encounter Note* Telephone Encounter - Ebony Monroy - 12/26/2023 11:00 AM EDT Name of Caller: joellen Relationship to patient: patient Last visit in this department: 11/18/2023 Reason for Call: Other : wants to know what vitamin D supp she should be taking Callback number: [phone] [facility]10-01-2024 Telephone encounter Note* Telephone Encounter - Cassie Suh RN - 12/13/2023 10:14 AM EDT Pulmonary clearance letter sent/faxed to Brittany Anderson CNP. Cassie Suh RN, BSN Bariatric Front Office Director [facility]10-01-2024 Miscellaneous Notes* Telephone Encounter - Cassie Suh RN - 12/13/2023 10:14 AM EDT Pulmonary clearance letter sent/faxed to Brittany Anderson CNP. Cassie Suh RN, BSN Bariatric Front Office Director * Telephone Encounter - Cassie uSh RN - 12/13/2023 10:06 AM EDT Nephrology Clearance Letter sent/faxed to Britni Lockwood APRN.LAST PATTERN GRADER. Cassie Suh RN, BSN Bariatric Front Office Director * Telephone Encounter - Cassie Suh RN - 12/13/2023 9:56 AM EDT Cardiology Clearance letter sent/faxed to Porfirio Jeff APRN.LAST PATTERN GRADER. Cassie Suh RN, BSN Bariatric Front Office Director documented in this encounterOur Lady Of Mercy Hospital10-01-2024 Telephone encounter Note * Telephone Encounter - Cassie Suh RN - 12/13/2023 10:06 AM EDT Nephrology Clearance Letter sent/faxed to Britni Lockwood APRN.ERICK. Cassie Suh RN, BSN Bariatric Front Office Director [facility] Telephone encounter Note* Telephone Encounter - Cassie Suh RN - 12/13/2023 9:56 AM EDT Cardiology Clearance letter sent/faxed to Porfirio Jeff APRN.ERICK. Cassie Suh RN, BSN Bariatric Front Office Director [facility]09-30-[facility] History of Present illness Narrative* Gunner Sutton APRN.CNP - 12/12/2023 3:00 PM EDT BARIATRIC SURGERY CLINIC FOLLOW UP NOTE DISTANCE HEALTH VISIT This Team Access Model visit is a virtual encounter. It required patient- provider interaction for the medical decision making as documented below. Consent was obtained to complete today's distance health visit. I have communicated my name and active licensure. The patient's identity and physical location wereverified at the time of this visit. Either the patient or their legal termite control representative has been informed of the risks and benefits of -- and alternatives to -- treatment through a remote evaluation andconsents to proceed with the evaluation remotely. HPI: Joellen Gant a 58 year old female presents for medically supervised weight loss treatment ofher obesity related co morbidities. This individual presents for month 3 of 6 required visits. Royer Gant weight has decreased since first visit in the program. Joellen reports doing very well with nutritional recommendations. She has cut out using oil while cooking and bread. She switched to unsweetened almond milk and is eating cottage cheese and Turkmen yogurt. Her weight is down significantly. She endorses hitting fluid and protein goals daily. She endorsesnot tracking her diet due to struggling to [...] along with possible cirrhosis. She followed up withher GI who ordered a CT scan and lab work that showed pancreatic insufficiency. She now takes Creonand will be having a liver biopsy done [...] 07/31/2015 CKD stage 3a, GFR 45-59 ml/min ([facility]) Colon polyp 07/17/2020 Dermatophytosis of the body Edema 06/13/2008 GERD (gastroesophageal reflux disease) 07/29/2010 Hiatal hernia 07/17/2020 medium sized seen on EGD Infectious mononucleosis Irregular menstrual cycle Irritable bowel syndrome with diarrhea 08/04/2015 Morbid obesity with BMI of 45.0-49.9, adult ([facility]) Obesity, Class III, BMI 40-49.9 (morbid obesity) ([facility]) 07/27/2017 Stage 3a chronic kidney disease ([facility]) 04/08/2021 Tobacco use disorder Unspecified hearing loss [...] Transition to 4,000-5,000 units of Vitamin D fsfa-sto-rmrlvit aftercompleting 12 weeks of high-dose therapy. diclofenac, EC, (VOLTAREN) 75 mg EC tablet take 1 tablet by mouth twice a day torsemide (DEMADEX) 20 mg tablet take 1 tablet by mouth twice a day (STOP FUROSEMIDE) levothyroxine (SYNTHROID) 100 mcg tablet Take 1 tablet by mouth once daily. Per [facility]. colestipol (COLESTID) 1 gram tablet Take [...] 1 tablet by mouth every afternoon. Per [facility] olopatadine (PATANOL) 0.1 % ophthalmic [...] mask of choice, HUMIDITY. LIFETIME SUPPLIES. DME: [facility] No current facility-administered medications for this [...] new labs The plan of treatment for Joellen Gant is: Further Work-up: Required monthly visits: [...] appt Dec) Education class: ongoing Clearances: -Cardiac ([facility]- Porfirio Jeff CNP) -Pulmonary ([facility]- Lani Anderson CNP) -Nephrology ([facility]; Britni Lockwood CNP) -Gastroenterology ([facility]; Dr. Byrnes- liver biopsy 12/13 for [...] - Keep a food journal 5-7x/week (consider BeneChill or Archiver's sue) and demonstrate meeting protein goal (60-90g protein for females, 70-105g protein for males)- Lean meats, fish, low fat dairy - cottage cheese, Turkmen yogurt, light yogurt, cheese, ricotta cheese, nuts, [...] Level: 4 - Moderate documented in this encounterOur Lady Of Mercy Hospital09-30-2024 NoteHNO ID: [id number] Author: GUNNER SUTTON APRN.CNP Service: ? Author [...] visit. Either the patient or their legal termite control representative has been informed of the risks and benefits of -- and alternatives to -- treatment through a remote evaluation and consents to proceed with the evaluation remotely. HPI: Joellen Gant a 58 year old female presents for medically supervised weight loss treatment of her obesity related co morbidities. This individual presents for month 3 of 6 required visits. Joellen Gant weight has decreased since first visit in the program. Joellen reports doing very well with nutritional recommendations. She has cut out using oil while cooking and bread. She switched to unsweetened almond milk and is eating cottage cheese and Turkmen yogurt. Her weight is down significantly. She [...] 07/31/2015 CKD stage 3a, GFR 45-59 ml/min ([facility]) Colon polyp 07/17/2020 Dermatophytosis of the body Edema 06/13/2008 GERD (gastroesophageal reflux disease) 07/29/2010 Hiatal hernia 07/17/2020 medium sized seen on EGD Infectious mononucleosis Irregular menstrual cycle Irritable bowel syndrome with diarrhea 08/04/2015 Morbid obesity with BMI of 45.0-49.9, adult ([facility]) Obesity, Class III, BMI 40-49.9 (morbid obesity) ([facility]) 07/27/2017 Stage 3a chronic kidney disease ([facility]) 04/08/2021 Tobacco use disorder Unspecified hearing loss [...] Transition to 4,000-5,000 units of Vitamin D aeke-mtk-zgvecgs after completing 12 weeks of high-dose therapy. diclofenac, EC, (VOLTAREN) 75 mg EC tablet take 1 tablet by mouth twice a day torsemide (DEMADEX) 20 mg tablet take 1 tablet by mouth twice a day (STOP FUROSEMIDE) levothyroxine (SYNTHROID) 100 mcg tablet Take 1 tablet by mouth once daily. Per [facility]. colestipol (COLESTID) 1 gram tablet Take 2 tablets by mouth two times a day. fluticasone (FLONASE) 50 mcg/actuation nasal spray instill 2 sprays into each nostril once daily at bedtime fluticasone (FLOVENT HFA) 220 mcg/actuation inhaler Inhale 1 Puff as instructed two times a day. Shake well before use. Rinse (more content not included)... [facility]09-10-2024 Telephone encounter Note* Telephone Encounter - Sofía Multani APRN.CNP - 11/22/2023 9:44 AM EDT Called patient to review RUQ US results demonstrating NAFLD and possible cirrhosis. She reports that she has already discussed the results with her senior sql server database developer (Dr. Byrnes) and has been scheduled for a liver biopsy. Sofía Multani APRN.CNP [facility] Work Phone: [phone]) 575-172409-10-2024 Miscellaneous Notes* Telephone Encounter - Sofía Multani APRN.CNP - 11/22/2023 9:44 AM EDT Called patient to review RUQ US results demonstrating NAFLD and possible cirrhosis. She reports that she has already discussed the results with her senior sql server database developer (Dr. Byrnes) and has been scheduled for a liver biopsy. Sofía Multani APRN.ERICK documented in this encounterOur Lady Of Mercy Hospital09-06-2024 Instructions* Patient Instructions* Britni Lockwood APRN.CNP - 11/18/2023 12:10 PM EDT [...] week. RTC 6 months documented in this encounterOur Lady Of Mercy Hospital09-06-2024 History of Present illness Narrative* Britni Lockwood APRN.CNP - 11/18/2023 11:20 AM EDT [facility] SERVICE DATE: [...] Drinking 2Ls water per day Assessment/Plan from [facility] with Carlos Mustafa on 08/24/2023. 58 year old female [...] Transition to 4,000-5,000 units of Vitamin D hdnr-jvb-duokipb aftercompleting 12 weeks of high-dose therapy. diclofenac, EC, (VOLTAREN) 75 mg EC tablet take 1 tablet by mouth twice a day torsemide (DEMADEX) 20 mg tablet take 1 tablet by mouth twice a day (STOP FUROSEMIDE) levothyroxine (SYNTHROID) 100 mcg tablet Take 1 tablet by mouth once daily. Per [facility]. colestipol (COLESTID) 1 gram tablet Take [...] mask of choice, HUMIDITY. LIFETIME SUPPLIES. DME: [facility] ALLERGIES: ALLERGIES Allergen Reactions Iv Contrast [...] 2, hypothyroidism, Asthma, chronic back and knee onchronic NSAIDS with BMI >45. CKD Stage 3A, [...] after 6 month trial of diet and lifestylechange as required by insurance. GERD: - On [...] which included preparing to see the patient, xvlv-bv-wwek patient care, completing clinical documentation, obtaining and/or reviewing separately obtained history, performing a medically appropriate examination, counseling and educating the pat ient/family/caregiver, ordering medications, tests, or procedures, independently interpreting results (not separately reported), and communicating results to the patient/family/caregiver. All documentation from previous visit was copied and pasted, documentation has been reviewed and edited as necessary for today's visit. SIGNATURE: Britni Lockwood APRN.CNP PATIENT NAME: Joellen Gant DATE: November 15, 2023 TIME: 12:04 PM OFFICE NUMBER: [phone] CC: PRIMARY CARE PHYSICIAN: Sam Null MD documented in this encounterOur Lady Of Mercy Hospital09-06-2024 Evaluation note* Diagnosis Stage 3a chronic kidney disease (HCC)- Primary Vitamin D deficiency Unspecified vitamin D deficiency Encounter for long-term (current) use of NSAIDs Encounter for long-term (current) use of non-steroidal anti-inflammatories Class 3 severe obesity with serious comorbidity and body mass index (BMI) of 45.0 to 49.9 in adult, unspecified obesity type (HCC) documented in this encounter [facility]08-02-2024 Telephone encounter Note* Telephone Encounter - Lucille Peter LPN - 10/14/2023 3:27 PM EDT Spoke with patient to relay the message from Dr. Stone. Patient saw that her labs were worse and will repeat the labs in [address] Stone's order. Patient was added to the wait list for a soonerappointment. [facility]08-02-2024 Miscellaneous Notes* Telephone Encounter - Lucille Peter LPN - 10/14/2023 3:27 PM EDT Spoke with patient to relay the message from Dr. Stone. Patient saw that her labs were worse and will repeat the labs in [address] Stone's order. Patient was added to the wait list for a soonerappointment. * Telephone Encounter - Lora Stone I, MD - 10/14/2023 3:09 PM EDT Following patient of Dr. Mustafa. Nephrology nurses please call the patient and tell her to repeatblood work in 2 weeks as the kidney function is slightly worse than before. Please place her on waitlist/cancellation for an earlier appointment with nephrology. I will copy Dr. Rothman who is seeing the patient in February 2024. documented in this encounterOur Lady Of Mercy Hospital08-02-2024 Telephone encounter Note * Telephone Encounter - Lora Stone I, MD - 10/14/2023 3:09 PM EDT Following patient of Dr. Mustafa. Nephrology nurses please call the patient and tell her to repeatblood work in 2 weeks as the kidney function is slightly worse than before. Please place her on waitlist/cancellation for an earlier appointment with nephrology. I will copy Dr. Rothman who is seeing the patient in February 2024. [facility] Work Phone: 1(608) 232-376108-02-2024 History of Present illness Narrative* Sam Null MD - 10/14/2023 1:36 PM EDT This note was created using Tripwareter. Subjective Joellen Gant is a 58 year old female. She was evaluated by Dr. Herzog at [facility] and GERD, Hiatal hernia will be repaired at the time of gastric bypass due to refractory acid reflux. She started bariatric program. She just saw cardiology SHIPFITTER APPRENTICE at [facility] and stress test was being considered for [...] pancreatic insufficiency. She sees Marium Anderson CNP, [facility] for chronic dyspnea and asthma. She used her rescue inhaler twice a week. She sees Dr. Eduardo Morgan for [facility] for hypothyroidism. Review of Systems Constitutional: [...] Transition to 4,000-5,000 units of Vitamin D [id number] aftercompleting 12 weeks of high-dose therapy. diclofenac, EC, (VOLTAREN) 75 mg EC tablet take 1 tablet by mouth twice a day torsemide (DEMADEX) 20 mg tablet take 1 tablet by mouth twice a day (STOP FUROSEMIDE) levothyroxine (SYNTHROID) 100 mcg tablet Take 1 tablet by mouth once daily. Per [facility]. colestipol (COLESTID) 1 gram tablet Take [...] mask of choice, HUMIDITY. LIFETIME SUPPLIES. DME: [facility] albuterol HFA (PROAIR HFA) 90 mcg/actuation [...] (SHINGRIX) Sam Null MD documented in this encounterOur Lady Of Mercy Hospital08-01-[facility]24 History of Present illness Narrative* Burak Schrader, RD - 10/13/2023 11:00 AM EDT [facility] [place] [facility] - Bariatric Department New Patient Nutritional Assessment Patient seen individually in office. Family member with patient. Joellen Gant Month 3 Adjusted protein due to CKD III - 48-60g Anthropometrics: 58 year old female Ht 158.8 cm (5' 2.5") Wt 115.8 kg (255 lb 3.2 oz) [...] date: CKD stage 3a, GFR 45-59 ml/min ([facility]) 07/17/2020: Colon polyp No date: Dermatophytosis of the body 06/13/2008: Edema 07/29/2010: GERD (gastroesophageal reflux disease) 07/17/2020: Hiatal hernia Comment: medium sized seen on EGD No date: Infectious mononucleosis No date: Irregular menstrual cycle No date: Morbid obesity with BMI of 45.0-49.9, adult ([facility]) No date: Tobacco use disorder No date: Unspecified hearing loss Comment: left ear - wears hearing aid No date: Unspecified hypothyroidism Medications: Current Outpatient Medications Medication Sig Dispense Refill cholecalciferol, Vitamin D3, (VITAMIN D3) 1,250 mcg (50,000 unit) cap capsule Take 1 capsule by mouth one time a week for 12 doses. Transition to 4,000-5,000 units of Vitamin D [id number] aftercompleting 12 weeks of high-dose therapy. 12 capsule 0 diclofenac, EC, (VOLTAREN) 75 mg EC tablet take 1 tablet by mouth twice a day 180 tablet 2 torsemide (DEMADEX) 20 mg tablet take 1 tablet by mouth twice a day (STOP FUROSEMIDE) OMEPRAZOLE, BULK, MISC 40 mg once daily. levothyroxine (SYNTHROID) 100 mcg tablet Take 1 tablet by mouth once daily. Per [facility]. 30 tablet colestipol (COLESTID) 1 gram [...] mask of choice, HUMIDITY. LIFETIME SUPPLIES. DME: [facility] 1 Device 0 No current facility-administered medications for this visit. Allergies: Iv Contrast [Iodine] and Seasonal Allergies Weight History: See SHIPFITTER APPRENTICE notes from initial program visit. Dietary Intake: 24 hour recall provided Breakfast- skipped Lunch- skipped Dinner- burrito - steak and cheese (hot pocket) Snacks-10 gold fish crackers, popsicles Limitations of keeping a food record: reports that she struggles with writing/documentation Food Allergies: N/A Frequency of fried foods (deep fried/equatorial guinean fries/fried chicken etc):Occasionally (3 - 4 times [...] by Dietitian during visit and sent via [employer] message. Required months of supervised weight loss per insurance: per SHIPFITTER APPRENTICE notes [facility] Patient agreement was reviewed and Joellen Gant received a copy of the patient [...] was spent in counselingand/or coordination of care. Burak Schrader RD This note was generated using voice recognition technology and may contain grammatical errors. documented in this encounterOur Lady Of Mercy Hospital07-09-2024 Instructions* Patient Instructions* Gunner Sutton APRN.LAST PATTERN GRADER - 09/20/2023 11:27 AM EDT [email or web address] Welcome to the first step towards your [...] 30 minutes. Anything longer would be considered "grazing". Also, begin incorporating exercise 4-5 times per [...] are with the surgeon, nurse practitioner, and/or odd piece checker. Height: Last 1 Encounter Ht Readings: Date: Ht: 09/08/2023 157.5 cm (5' 2") Weight:Last 1 Encounter Wt Readings: Date: Wt: 09/08/2023 258 lb [place] Body Weight: 136 lb Based on body [...] to promote calorie burning. documented in this encounterOur Lady Of Mercy Hospital07-09-2024 History of Present illness Narrative* Gunner Sutton APRN.ERICK - 09/20/2023 11:19 AM EDT BARIATRIC SURGERY NEW PATIENT CONSULTATION HISTORY AND PHYSICAL Date: September 20, 2023 Name: Joellen Gant CHIEF COMPLAINT: This is a 58 year old female with morbid obesity (Body mass index is 46.41 kg/m .) who presents to clinic for consideration of bariatric surgery. HISTORY OF PRESENTING ILLNESS: Joellen Gant presents today for consideration of bariatric [...] and baby asa daily. 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 She has hyperlipidemia, taking Colestid. She has LE lymphedema, taking Torsemide and spironolactone. She has VETO and uses BiPAP nightly. 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 She has asthma, using inhalers as needed. She has chronic back and knee pain, and takes diclofenac as needed. She has CKD3 and follows up with nephrology at [facility]. She has hypothyroid, taking Synthroid daily. Social [...] 07/31/2015 CKD stage 3a, GFR 45-59 ml/min ([facility]) Colon polyp 07/17/2020 Dermatophytosis of the body Edema 06/13/2008 GERD (gastroesophageal reflux disease) 07/29/2010 Hiatal hernia 07/17/2020 medium sized seen on EGD Infectious mononucleosis Irregular menstrual cycle Morbid obesity with BMI of 45.0-49.9, adult ([facility]) Tobacco use disorder Unspecified hearing loss left [...] 1 tablet by mouth once daily. Per [facility]. colestipol (COLESTID) 1 gram tablet Take [...] mask of choice, HUMIDITY. LIFETIME SUPPLIES. DME: [facility] ALLERGIES Allergen Reactions Iv Contrast [Iodine] [...] 128/74 Pulse 63 Ht 158.8 cm (5' 2.52") Wt 117 kg (258 lb) LMP (LMP [...] Tylenol: Yes Zofran: Yes IMPRESSION AND PLAN: Joellen Gant is a 58 year old female with the following diagnosis and co-morbidities: Body mass index is 46.41 kg/m . This patient does meet the criteria for a surgical weight loss procedure according to NIH guidelines. Time was spent discussing both surgical options as well as she was provided with estimations in terms of percent excess weight loss. Today, we discussed that Joellen Gant will need to complete a 6 consecutive month trial of diet and exercise per insurance requirements. Therefore, Joellen Gant received 10-15 minutes of dietary counseling in office today, as well as was scheduled for our shared education class. she will also need to be cleared by psychology and other specialties deemed necessary per insurance ie. Cardiology,pulmonology, etc. We discussed that monthly insurance requirements include visits with the surgeon,SHIPFITTER APPRENTICE, and/or RD. If applicable, we discussed not [...] - Keep a food journal 5-7x/week (consider BeneChill or Archiver[employer] sue) and demonstrate meeting protein goal (60-90g protein for females, 70-105g protein for males)- Lean meats, fish, low fat dairy - cottage cheese, Turkmen yogurt, light yogurt, cheese, ricotta cheese, nuts, [...] medication daily. We will continue to see Joellen Gant on a monthly basis until all clearances and testing are complete. Follow up with surgeon next month for further assessment and testing. I spent a total of 60 minutes on the date of the service which included preparing to see the patient, [id number] patient care, completing clinical documentation, obtaining and/or [...] Level: 4 - Moderate documented in this encounterOur Lady Of Mercy Hospital06-27-2024 Telephone encounter Note * Telephone Encounter - Cindy Schrader - 09/08/2023 4:07 PM EDT Insurance Verification Insurance Drug Response Dx: [employer] Provider Phone #: [phone] Agent: Kait Effective Date: 04/14/22 Call Reference #: [id number] Months of Wt Loss: 6 Consecutive: 6 Months of Weight History:6 Obesity Medicine Coverage: yes COVERAGE: RNY-yes SLEEVE-yes BYPASS-yes REQUIREMENTS: Pulmonary Clearance: yes Cardiac Clearance: yes Nicotine Testing: yes Drug Testing: yes TSH Testing: yes If Female patient, is test required: In Network %-100 [facility]: Yang ProviderBeau Herzog [facility]06-27-2024 Miscellaneous Notes* Telephone Encounter - Cindy Schrader - 09/08/2023 4:07 PM EDT Insurance Verification Insurance Company: [employer] Provider Phone #: [phone] Agent: Kait Effective Date: 04/14/22 Call Reference #: [id number] Months of Wt Loss: 6 Consecutive: 6 Months of Weight History:6 Obesity Medicine Coverage: yes COVERAGE: RNY-yes SLEEVE-yes BYPASS-yes REQUIREMENTS: Pulmonary Clearance: yes Cardiac Clearance: yes Nicotine Testing: yes Drug Testing: yes TSH Testing: yes If Female patient, is test required: In Network %-100 [facility]: Green Provider: Danny documented in this encounterOur Lady Of Mercy Hospital06-27-2024 History of Present illness Narrative* Marii Herzog MD - 09/08/2023 10:30 AM EDT [...] 07/31/2015 CKD stage 3a, GFR 45-59 ml/min ([facility]) Colon polyp 07/17/2020 Dermatophytosis of the body Edema 06/13/2008 GERD (gastroesophageal reflux disease) 07/29/2010 Hiatal hernia 07/17/2020 medium sized seen on EGD Infectious mononucleosis Irregular menstrual cycle Morbid obesity with BMI of 45.0-49.9, adult ([facility]) Tobacco use disorder Unspecified hearing loss left [...] 1 tablet by mouth once daily. Per [facility]. colestipol (COLESTID) 1 gram tablet Take [...] mask of choice, HUMIDITY. LIFETIME SUPPLIES. DME: [facility] diclofenac, EC, (VOLTAREN) 75 mg EC [...] EXAM: BP 129/77 Pulse 63 Ht 5' 2" (1.58m) Wt 259 lb (117.5kg) BMI 47.36 [...] visit: EMR reviewed Plan ASSESSMENT AND PLAN Joellen Gant is a 58 year old female [...] Decision Making Level: 4 - Moderate SIGNATURE: Marii Herzog MD PATIENT NAME: Joellen Gant DATE: September 08, 2023 TIME: 10:31 AM PAGER/CONTACT #: [phone] documented in this encounterOur Lady Of Mercy Hospital06-12-2024 Instructions* Patient Instructions* Carlos Mustafa MD - 08/24/2023 12:27 PM EDT Kidney Disease - Mild disease. Reassuring prognostic factors. We will recheck labs in October. Follow up in 6 months. Sodium intake recommendation: Less 2000mg/day documented in this encounterOur Lady Of Mercy Hospital06-12-2024 History of Present illness Narrative* Carlos Mustafa MD - 08/24/2023 11:40 AM EDT Images from the original note were not included. [facility] SERVICE DATE: 08/24/2023 [...] diuretics she gets short of breath. Has chemistry physics teacher she is working with outside of [employer]. She has now been placed on Torsemide [...] 1 tablet by mouth once daily. Per [facility]. colestipol (COLESTID) 1 gram tablet Take [...] by mouth two times a day. Per [facility] spironolactone (ALDACTONE) 25 mg tablet Take 1 tablet by mouth every afternoon. Per [facility] traMADol (ULTRAM) 50 mg tablet [...] mask of choice, HUMIDITY. LIFETIME SUPPLIES. DME: [facility] albuterol HFA (PROAIR HFA) 90 mcg/actuation inhaler Inhale 2 Puffs as instructed every 4 hours as needed. ALLERGIES: ALLERGIES Allergen Reactions Iv Contrast [Iodine] Swelling Seasonal Allergies Intolerance REVIEW OF SYSTEMS: Constitutional: No complaints Cardiovascular: swelling, SOB Genitourinary: No complaints PHYSICAL EXAM: Ht 158.8 cm (5' 2.52") Wt 116.9 kg (257 lb 11.5 oz) [...] 76 88 BUN 7 - 21 mg/dL 16 Creatinine 0.58 - 0.96 mg/dL 1.25 [...] Date Value 07/13/2023 213 03/20/2021 187 Specific [place], Ur Date Value Ref Range Status 07/13/2023 [...] coordination of care = 37 min SIGNATURE: Carlos Mustafa MD PATIENT NAME: Joellen Gant DATE: August 24, 2023 TIME: 1:07 PM OFFICE NUMBER: CC: PRIMARY CARE PHYSICIAN: Sam Null MD documented in this encounterOur Lady Of Mercy Hospital06-12-2024 Evaluation note* Diagnosis Stage 3a chronic kidney disease (HCC)- Primary Obesity, Class III, BMI 40-49.9 (morbid obesity) (HCC) Morbid obesity BMI 45.0-49.9, adult (HCC) Body Mass Index 45.0-49.9, adult Gastroesophageal reflux disease without esophagitis Esophageal reflux documented in this encounter [facility]05-30-[facility] Telephone encounter Note* Telephone Encounter - Jacquelyn Nicolas MA - 08/11/2023 5:[address] Mustafa, Please review and advise on Pt's message below. Thank you! Jacquelyn Nicolas MA [facility]05-30-2024 Miscellaneous Notes* Telephone Encounter - Jacquelyn [...] lab results. Please call patient back at [phone]. * Telephone Encounter - Kera Lovett MA - 07/26/2023 4:[address] Mustafa, See message below and advise. Kera Lovett MA * Telephone Encounter - Alana Mendoza - 07/26/2023 4:24 PM EDT Joellen is calling Carlos Mustafa MD today to request No chief complaint on file. Patient has been identified by name and birthdate. Joellen calling to discuss the labs that Dr Mustafa ordered on July 12. She doesn't understand the results, would like someone to go over them with her.. she would also like to know when the doctor wants her to repeat them? Duration of symptoms: N/A Person calling: self Call patient at: on cell [phone] (home) [phone] (cell) Was an appointment scheduled: No Closing statement: Symptom Call: Thank you for calling [facility], your call is very important. A nurse will call in approximately 2-4 hours during business hours. If this is an emergency, please contact 911. Alana Mendoza documented in this encounterOur Lady Of Mercy Hospital05-30-2024 Telephone encounter Note * Telephone Encounter [...] lab results. Please call patient back at [phone]. [facility]05-14-[facility] Telephone encounter Note* Telephone Encounter - Kera Lovett MA - 07/26/2023 4:[address] Mustafa, See message below and advise. Kera oLvett MA [facility]05-14-2024 Telephone encounter Note* Telephone Encounter - Alana Mendoza - 07/26/2023 4:24 PM EDT Joellen is calling Carlos Mustafa MD today to request No chief complaint on file. Patient has been identified by name and birthdate. Joellen calling to discuss the labs that Dr Mustafa ordered on July 12. She doesn't understand the results, would like someone to go over them with her.. she would also like to know when the doctor wants her to repeat them? Duration of symptoms: N/A Person calling: self Call patient at: on cell [phone] (home) [phone] (cell) Was an appointment scheduled: No Closing statement: Symptom Call: Thank you for calling [facility], your call is very important. A nurse will call in approximately 2-4 hours during business hours. If this is an emergency, please contact 911. Alana Mendoza [facility]05-09-[facility] Nurse Note* Юлия Dallas RN - 07/21/2023 1:16 PM EDT The [...] well. No heme noted when catheter removed. [facility]05-09-[facility] Nurse Note* Юлия Dallas RN - 07/21/2023 1:16 PM EDT The [...] noted when catheter removed. documented in this encounterOur Lady Of Mercy Hospital05-09-2024 History of Present illness Narrative* Mackenzie Morillo APRN.ERICK - 07/21/2023 1:00 PM EDT H&P completed on 07/15/2023 by Sam Null MD . documented in this encounterOur Lady Of Mercy Hospital05-03-2024 History of Present illness Narrative* Sam Null MD - 07/15/2023 1:59 PM EDT This note was created using Goodpatch. 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 She was concerned about diabetes due to [...] of her GERD with Dr. Herzog in [facility]. Her symptoms were chronic. I had [...] 1 tablet by mouth once daily. Per [facility]. colestipol (COLESTID) 1 gram tablet Take [...] 1 tablet by mouth every afternoon. Per [facility] traMADol (ULTRAM) 50 mg tablet [...] mask of choice, HUMIDITY. LIFETIME SUPPLIES. DME: [facility] No current facility-administered medications for this [...] including Sam Null MD documented in this encounterOur Lady Of Mercy Hospital04-30-2024 Telephone encounter Note * Telephone Encounter - Kristen Oconnor LPN - 07/12/2023 3:57 PM EDT Patient advised, appt scheduled. Kristen Oconnor LPN [facility]04-30-2024 Miscellaneous Notes* Telephone Encounter - Kristen Oconnor LPN - 07/12/2023 3:57 PM EDT Patient advised, appt scheduled. Kristen Oconnor LPN * Telephone Encounter - Verito Mclean APRN.CNP - 07/12/2023 3:29 PM EDT HgbA1c ordered, she will need an appointment to discuss results Verito Mclean APRN.ERICK * Telephone Encounter - Halie Ambriz LPN - 07/11/2023 3:37 PM EDT Patient calling said she is short of breath, fatigued, excessive thirst, edema, dizzy feeling. Offered appt with PCP or SHIPFITTER APPRENTICE patient said have seen all of my [...] past month. Please advise documented in this encounterOur Lady Of Mercy Hospital04-30-2024 Telephone encounter Note * Telephone Encounter - Verito Mclean APRN.CNP - 07/12/2023 3:29 PM EDT HgbA1c ordered, she will need an appointment to discuss results Verito Mclean APRN.ERICK [facility]04-29-2024 Telephone encounter Note* Telephone Encounter - Halie Ambriz LPN - 07/11/2023 3:37 PM EDT Patient calling said she is short of breath, fatigued, excessive thirst, edema, dizzy feeling. Offered appt with PCP or SHIPFITTER APPRENTICE patient said have seen all of my [...] done in the past month. Please advise [facility]04-25-[facility] Telephone encounter Note* Telephone Encounter - Cathy Ac MA - 07/07/2023 12:40 PM EDT Manometry scheduled for 07/21/2023 at 12:00 pm followed by EGD/Kirk at 1:00 pm. Prep/instructions given to patient at checkout yesterday. Cathy Ac MA [facility]04-25-2024 Miscellaneous Notes* Telephone Encounter - Cathy Ac MA - 07/07/2023 12:40 PM EDT Manometry scheduled for 07/21/2023 at 12:00 pm followed by EGD/Kirk at 1:00 pm. Prep/instructions given to patient at checkout yesterday. Cathy Ac MA documented in this encounterOur Lady Of Mercy Hospital04-24-2024 Telephone encounter Note * Telephone Encounter - Carlos Mustafa MD - 07/06/2023 5:04 PM EDT [...] s leighton I cannot examine her. SIGNATURE: Carlos Mustafa MD PATIENT NAME: Joellen Gant DATE: July 06, 2023 TIME: 5:06 PM PAGER: [phone] [facility]04-24-2024 Miscellaneous Notes* Telephone Encounter - Carlos Mustafa MD - 07/06/2023 5:04 PM EDT [...] s leighton I cannot examine her. SIGNATURE: Carlos Mustafa MD PATIENT NAME: Joellen Gant DATE: July 06, 2023 TIME: 5:06 PM PAGER: [phone] * Telephone Encounter - Ebony Monroy - 07/06/2023 3:53 PM EDT Name of Caller: Joellen Relationship to patient: patient Last visit in this department: Visit date not found Reason for Call: pt is experiencing pain in lower side. Thinks it has to do with kidneys. She has been swelling in her body for over a week now. Please advise Callback number: [phone] documented in this encounterOur Lady Of Mercy Hospital04-24-2024 Telephone encounter Note * Telephone Encounter - Carlos Mustafa MD - 07/06/2023 4:58 PM EDT Late Entry. Had long phone call with Ms. Gant regarding her symptoms. Call was on 07/04/[address] [facility]. Cannot explain symptoms as being related to the kidneys. Reviewed her recent labs with her. SIGNATURE: Carlos Mustafa MD PATIENT NAME: Joellen Gant DATE: July 06, 2023 TIME: 4:59 PM PAGER: [phone] [facility]04-24-[facility]24 Miscellaneous Notes* Telephone Encounter - Carlos Mustafa MD - 07/06/2023 4:58 PM EDT Late Entry. Had long phone call with Ms. Gant regarding her symptoms. Call was on 07/04/[address] [facility]. Cannot explain symptoms as being related to the kidneys. Reviewed her recent labs with her. SIGNATURE: Carlos Mustafa MD PATIENT NAME: Joellen Gnat DATE: July 06, 2023 TIME: 4:59 PM PAGER: [phone] * Telephone Encounter - Kera Lovett MA - 07/04/2023 8:[address] Mustafa, Please see message below and advise. Kera Lovett MA * Telephone Encounter - Kari Murdock - 07/01/2023 4:59 PM EDT Joellen is calling Carlos Mustafa MD today to request a call regarding her lab order results from 06/27/23. Still barley able to eat. Only eating once a day and making sure she gets milk and clementines to eat. Has no appetite. Patient has been identified by name and birthdate. Duration of symptoms: N/A Person calling: self Call patient at: on cell [phone] (home) [phone] (cell) Was an appointment scheduled: No Closing statement: Symptom Call: Thank you for calling [facility], your call is very important. A nurse will call in approximately 2-4 hours during business hours. If this is an emergency, please contact 911. Kari Murdock documented in this encounterOur Lady Of Mercy Hospital04-24-2024 Telephone encounter Note * Telephone Encounter - Ebony Monroy - 07/06/2023 3:53 PM EDT Name of Caller: Joellen Relationship to patient: patient Last visit in this department: Visit date not found Reason for Call: pt is experiencing pain in lower side. Thinks it has to do with kidneys. She has been swelling in her body for over a week now. Please advise Callback number: [phone] [facility]04-24-[facility] History of Present illness Narrative* Winifred Cintron, KATIA - 07/06/2023 2:19 PM EDT Patient given written information about esophageal manometry and the prep instructions. I verbally discussed and reviewed the information with the patient. All of patient's questions were answered. Patient given written information about EGD and Kirk pH probe and the prep instructions. Verbally discussed and reviewed the information with the patient. All of patient's questions were answered. Winifred Cintron RN * Marii Herzog MD - 07/06/2023 1:15 PM EDT [...] Obesity, Class III, BMI 40-49.9 (morbid obesity) ([facility]) 07/27/2017 Tobacco use disorder Unspecified hearing loss left ear - wears hearing aid Unspecified hypothyroidism PAST SURGICAL HISTORY: PAST SURGICAL HISTORY Procedure Laterality Date COLONOSCOPY SCREENING 07/17/2020 EGD WITH BIOPSY(S) 07/17/2020 medium sized hiatal hernia; Dr. Ava LIANG SURG CHOLECYSTECTOMY W/CHOLANGIOGRAPHY [facility] 01/23/2019 [facility] [...] mask of choice, HUMIDITY. LIFETIME SUPPLIES. DME: [facility] No current facility-administered medications for this [...] EXAM: BP 122/82 Pulse 63 Ht 5' 3" (1.60m) Wt 259 lb 3.2 oz (117.6kg) [...] visit: EMR reviewed Plan ASSESSMENT AND PLAN Joellen Gant is a 58 year old female [...] Decision Making Level: 4 - Moderate SIGNATURE: Marii Herzog MD PATIENT NAME: Joellen Gant DATE: July 06, 2023 TIME: 1:15 PM PAGER/CONTACT #: [phone] documented in this encounterOur Lady Of Mercy Hospital04-24-2024 Telephone encounter Note * Telephone Encounter - Cassie Suh RN - 07/06/2023 1:48 PM EDT Bariatric Seminar sent. Cassie Suh RN [facility]04-24-2024 Miscellaneous Notes* Telephone Encounter - Cassie Suh RN - 07/06/2023 1:48 PM EDT Bariatric Seminar sent. Cassie Suh RN documented in this encounterOur Lady Of Mercy Hospital04-24-2024 Instructions* Patient Instructions* Marii Herzog MD - 07/06/2023 1:41 PM EDT Stop aspirin 10 days before upper endoscopy Stop Protonix and omeprazole 5 days before upper endoscopy documented in this encounterOur Lady Of Mercy Hospital04-24-2024 Procedure [facility]04-22-2024 Telephone encounter Note* Telephone Encounter - Kera Lovett MA - 07/04/2023 8:[address] Mustafa, Please see message below and advise. Kera Lovett MA [facility]04-19-2024 Telephone encounter Note* Telephone Encounter - Kari Murdock - 07/01/2023 4:59 PM EDT Joellen is calling Carlos Mustafa MD today to request a call regarding her lab order results from 06/27/23. Still barley able to eat. Only eating once a day and making sure she gets milk and clementines to eat. Has no appetite. Patient has been identified by name and birthdate. Duration of symptoms: N/A Person calling: self Call patient at: on cell [phone] (home) [phone] (cell) Was an appointment scheduled: No Closing statement: Symptom Call: Thank you for calling [facility], your call is very important. A nurse will call in approximately 2-4 hours during business hours. If this is an emergency, please contact 911Iva Murdock [facility]02-28-2024 Miscellaneous Notes* Addendum Note - Carlos Mustafa MD - 05/11/2023 6:42 PM ESTAddended by: CARLOS MUSTAFA on: 05/11/2023 06:42 PM Modules accepted: Orders * Telephone Encounter - Carlos Mustafa MD - 05/11/2023 6:34 PM EST Called patient. Reviewed lab results. Minor fluctuations in Cr, not enough to say there is significant disease progression. Labs in 1 month. SIGNATURE: Carlos Mustafa MD PATIENT NAME: Joellen Gant DATE: May 11, 2023 TIME: 6:40 PM PAGER: [phone] * Telephone Encounter - Kera Lovett MA - 05/11/2023 1:[address] Mustafa, Please see message below. Have your reviewed labs? Kera Lovett MA * Telephone Encounter - Yajaira Graec - 05/11/2023 1:28 PM EST Joellen is calling Carlos Mustafa MD today to request Patient Question-Patient called in with concern regarding lab results. Patient had labs drawn on 04-28-23 at [facility] and was told that lab results would be sent directly to provider. Patient wants to know if lab results have been received. The phone number for [facility] is [phone]. Patient has been identified by name and birthdate. Duration of symptoms: N/A Person calling: self Call patient at: at home [phone] (home) [phone] (cell) Was an appointment scheduled: No Closing statement: Symptom Call: Thank you for calling [facility], your call is very important. A nurse will call in approximately 2-4 hours during business hours. If this is an emergency, please contact 911. Yajiara Grace documented in this encounterOur Lady Of Mercy Hospital02-01-2024 Instructions* Patient Instructions* Carlos Mustafa MD - 04/14/2023 2:08 PM EST [...] Labs on May 12. documented in this encounterOur Lady Of Mercy Hospital02-01-2024 History of Present illness Narrative* Carlos Mustafa MD - 04/14/2023 2:00 PM EST [facility] SERVICE DATE: [...] Obesity, Class Iii, Bmi 40-49.9 (Morbid Obesity) ([facility]) Stage 3a Chronic Kidney Disease ([facility]) Atypical Chest Pain Bile-Induced Gastritis Colon Polyp [...] mask of choice, HUMIDITY. LIFETIME SUPPLIES. DME: [facility] furosemide (LASIX) 40 mg tablet Take 1 tablet by mouth two times a day. Per [facility] (Patient not taking: Reported on 04/14/2023) ALLERGIES: ALLERGIES Allergen Reactions Seasonal Allergies Intolerance REVIEW OF SYSTEMS: Constitutional: Fatigue Cardiovascular: EPPERSON, water retention Genitourinary: No complaints PHYSICAL EXAM: Ht 160 cm (5' 3") Wt 114 kg (251 lb 4.8 oz) [...] 1427 P 2.1* No results for input(s): "MG" in the last 76610 hours. Recent Labs 01/27/23 1427 11/17/22 1646 04/05/17 1430 ALB 4.1 4.4 4.3 Specific [place], Ur Date Value Ref Range Status 01/27/2023 [...] coordination of care = 55 min SIGNATURE: Carlos Mustafa MD PATIENT NAME: Joellen Gant DATE: April 14, 2023 TIME: 1:38 PM OFFICE NUMBER: CC: PRIMARY CARE PHYSICIAN: Sam Null MD documented in this encounterOur Lady Of Mercy Hospital12-15-2023 Miscellaneous Notes* Telephone Encounter - Carlos Mustafa MD - 02/25/2023 2:29 PM EST I called patient and clarified her questions that she had sent through [email or web address]. Will repeat labs inFebruary. documented in this encounterOur Lady Of Mercy Hospital12-15-2023 Miscellaneous Notes* Telephone Encounter - Carlos Mustafa MD - 02/25/2023 11:18 AM EST Attempted to call the patient to clarify her questions. No answer. Left brief VM. documented in this encounterOur Lady Of Mercy Hospital12-15-2023 Evaluation note* Diagnosis Stage 3a chronic kidney disease (HCC)- Primary documented in this encounter [facility]12-11-2023 History of Present illness Narrative* Jannet Salter RN - 02/21/2023 4:02 PM EST PT ASSESSMENT - CASTING ROOM Joellen presents for Application of brace. Applied Drytex Econ, Hinged Knee, Wrap XXL to Right knee Patient has been instructed in Care and proper application of brace. Patient signed [employer] paperwork electronically. Jannet Salter RN * Frank Fletcher MD - 02/21/2023 3:04 PM EST Frank Fletcher MD Department of Orthopaedics Orthopaedics [address] [place] [address] Dept: [phone] Dept February 21, 2023 CHIEF COMPLAINT: Established [...] just going to take some time. Ms. Joellen Gant was advised as to contrast therapies and/or to take analgesics/anti-inflammatories as needed and all contraindications were reviewed. OBJECTIVE: Ms. Joellen Gant is a pleasant 58 year old [...] Imaging: IMPRESSION: No acute pathology. Bony demineralization. Climatologist: PSCB Transcribe Date/Time: Feb 24 2023 9:11A [...] mask of choice, HUMIDITY. LIFETIME SUPPLIES. DME: [facility] No current facility-administered medications for this visit. Allergies: Seasonal Allergies ROS: General (negative for fatigue, malaise, weight loss/gain) HEENT (negative for headache, earache, recent vision changes, sinus pain, sore throat) Respiratory (no recent shortness of breath, hemoptysis) CV (negative for chest tightness, palpitations) Musculoskeletal (see HPI) Psych (no depression, anxiety) Frank Fletcher MD documented in this encounterOur Lady Of Mercy Hospital11-16-2023 Instructions* Patient Instructions* Carlos Mustafa MD - 01/27/2023 1:44 PM EST [...] the testing from today. documented in this encounterOur Lady Of Mercy Hospital11-16-2023 History of Present illness Narrative* Carlos Mustafa MD - 01/27/2023 10:40 AM EST [facility] SERVICE DATE: 01/27/2023 SERVICE TIME: 1:46 PM REASON FOR CONSULT: I am asked to see this patient in consultation for my opinion regarding ChronicKidney Disease. My recommendations will be communicated by way of shared medical record, fax, or mail. REQUESTING PHYSICIAN: Verito Broderick APRN.LAST PATTERN GRADER PRIMARY CARE PHYSICIAN: Sam Null MD CHIEF [...] takes chronic PPI. Reports her stomach is "torn up". No history of diabetes. She has a [...] Obesity, Class III, BMI 40-49.9 (morbid obesity) ([facility]) 07/27/2017 Tobacco use disorder Unspecified hearing loss left ear - wears hearing aid Unspecified hypothyroidism PAST SURGICAL HISTORY: PAST SURGICAL HISTORY Procedure Laterality Date COLONOSCOPY SCREENING 07/17/2020 EGD 07/17/2020 LAPS SURG CHOLECYSTECTOMY W/CHOLANGIOGRAPHY 07/22/2020 [facility] LEFT HEART CATH,PERCUTANEOUS 01/23/2019 L & [...] mask of choice, HUMIDITY. LIFETIME SUPPLIES. DME: [facility] spironolactone (ALDACTONE) 25 mg tablet Take [...] Date Value 11/17/2022 187 03/20/2021 187 Specific [place], Ur Date Value Ref Range Status 10/16/2015 [...] coordination of care = 63 min SIGNATURE: Carlos Mustafa MD PATIENT NAME: Joellen Gant DATE: January 27, 2023 TIME: 1:46 PM CC: REFERRING PROVIDER: Verito Broderick APRN.CNP PRIMARY CARE PHYSICIAN: Sam Null MD documented in this encounterOur Lady Of Mercy Hospital11-16-2023 Evaluation note* Diagnosis Stage 3a chronic kidney disease (HCC)- Primary Elevated serum creatinine Other nonspecific findings on examination of blood Right renal atrophy Renal sclerosis, unspecified Obesity, Class III, BMI 40-49.9 (morbid obesity) (HCC) Morbid obesity BMI 45.0-49.9, adult (HCC) Body Mass Index 45.0-49.9, adult Gastroesophageal reflux disease without esophagitis Esophageal reflux documented in this encounter [facility]11-16-[facility]23 Reason for referral (narrative)* Outpatient Procedure (Routine) - Authorized Specialty Diagnoses / Procedures Referred By Matty t Referred To Contact [facility] Diagnoses Stage 3a chronic kidney disease (HCC) Procedures US RENAL ARTERY RENETTA VAS LAB DUP-SCAN ARTL MARISSA ABDL/PEL/SCROT&/RPR ORGN COM Carlos Mustafa MD [address] [place] [address] [place] [address] Referral ID Status Reason Start Date Expiration Date Visits Requested Visits Authorized [id number] Authorized Auto-Generat ed Referral 3 01/27/2024 1 1 [facility]10-16-2023 Miscellaneous Notes* Telephone Encounter - Candelaria Kat FILM EDITOR - 12/27/2022 2:43 PM EDT Patient phones [...] advise. Candelaria Kat LPN documented in this encounterOur Lady Of Mercy Hospital09-22-2023 History of Present illness Narrative* Courtney Stallworth RT(R) - 12/03/2022 1:45 PM EDT Radiology Service Progress Note PATIENT NAME: Joellen Gant DATE OF SERVICE: December 03, 2022 [...] 03, 2022 2:18 PM documented in this encounterOur Lady Of Mercy Hospital09-06-2023 Instructions* Patient Instructions* Verito Broderick APRN.CNP - 11/17/2022 5:27 PM EDT You are due for PAP/HPV and mammogram, please call [phone] to schedule documented in this encounterOur Lady Of Mercy Hospital09-06-2023 History of Present illness Narrative* Verito Broderick APRN.CNP - 11/17/2022 5:10 PM EDT CC: Patient presents with: Physical HPI Joellen Gant is a 57 year old female who presents today for above. Asthma and VETO: managed by pulmonology. Asthma stable per patient and wearing CPAP nightly. GERD and IBS: managed by gastroenterology. Patient taking Prilosec and Protonix despite recommendations against this by her GI. Still has severe reflux and very poor appetite. States "I'm supposed tohave more tests done on my hernia but haven't heard anything yet." Weight gain- despite not eating more than "a few bites every day." HTN and CAD: managed by cardiology. Chronic [...] Obesity, Class III, BMI 40-49.9 (morbid obesity) ([facility]) 07/27/2017 Tobacco use disorder Unspecified hearing [...] mask of choice, HUMIDITY. LIFETIME SUPPLIES. DME: [facility] FAMILY HISTORY Problem Relation Age of [...] 71 Resp 20 Ht 157.5 cm (5' 2.01") Wt 118.4 kg (261 lb) LMP (LMP [...] at this time. - Patient was counseled [id number] by myself (the billing provider) for the [...] plan. Verito Broderick APRN.CNP documented in this encounterOur Lady Of Mercy Hospital08-23-2023 Miscellaneous Notes* Telephone Encounter - Zaida [...] patient. Krista Tripathi LPN documented in this encounterOur Lady Of Mercy Hospital07-31-2023 Miscellaneous Notes* Telephone Encounter - Alana [...] advise. Jing Joaquin RN documented in this encounterOur Lady Of Mercy Hospital07-28-2023 Miscellaneous Notes* Telephone Encounter - Briana [...] you. Briana Ang RN documented in this encounterOur Lady Of Mercy Hospital03-24-2023 Miscellaneous Notes* Telephone Encounter - Grant Newsome Ma - 06/04/2022 4:10 PM EDT New order faxed to [facility]. * Telephone Encounter - Briana Ang RN - 06/02/2022 4:49 PM EDT Althea with [facility] calls to request a more specific diagnosis for rollator. She reports they need to know the cause of the chronic knee pain. Tried obesity and impaired mobility which neither will cover it. Althea requesting call back at [phone] and follow the prompts select option 1 then option 0 to connect to the pharmacy. If Althea isn't available she said to leave a message with hospital pharmacy technician andthey will get the message to her. Briana Ang RN documented in this encounterOur Lady Of Mercy Hospital02-07-2023 Miscellaneous Notes* Telephone Encounter - Grant Newsome Ma - 04/20/2022 8:49 AM EST Order re-faxed as requested. Grant Newsome Ma * Telephone Encounter - Krista Tripathi LPN - 04/19/2022 4:45 PM EST Pt had an appt 04/12/22. Pt calls to report an order for a rolling walker was supposed to be faxed to [facility] and pt is being told by DM that they have not received the order. Pt is asking for the order to be re-faxed. Krista Tripathi LPN documented in this encounterOur Lady Of Mercy Hospital01-30-2023 History of Present illness Narrative* Verito Broderick, RESEARCH INSTRUMENTATION TECHNICIAN.ERICK - 04/12/2022 2:46 PM EST This Team Access Model visit is a virtual encounter. It required patient- provider interaction for the medical decision making as documented below. Patient agrees to the visit: Yes Patient Location: [place] CC: Patient presents with: Follow Up HPI Joellen Gant is a 57 year old female [...] enough information. Needs to repeat. Managed by leather goods maker Dr. Lilly. Taking Protonix daily. If she doesn't take has severe reflux and pain. She is following up with GI for this. Most of her medications are prescribed by non-[facility] specialists including [facility]. REVIEW OF SYSTEMS See HPI PAST [...] Obesity, Class III, BMI 40-49.9 (morbid obesity) ([facility]) 07/27/2017 Tobacco use disorder Unspecified hearing [...] mask of choice, HUMIDITY. LIFETIME SUPPLIES. DME: [facility] FAMILY HISTORY Problem Relation Age of [...] diagnosis) Will fax prescription for walker to [facility] per patient request. Follow-up with orthopedics as [...] care. Verito Broderick APRN.CNP documented in this encounterOur Lady Of Mercy Hospital11-29-2022 Miscellaneous Notes* Telephone Encounter - Qian Suh Ma - 02/09/2022 3:39 PM EST Patient has been contacted with message from [employer]. Patient has been scheduled on 02/15/2022. * Telephone Encounter - Stephanie George PA-C - 02/08/2022 12:32 PM EST She should schedule a follow up with Dr. Fletcher, in his last note he said if [...] the knee. [facility] [place] [facility] [place] [facility] and they advised the patient reach out to our office for further advice as they do not feel she should be having this much discomfort especially in the pool. PT was asking her about possibly gait training with walker or cane and insurance auth/orders. Candelaria Kat LPN documented in this encounterOur Lady Of Mercy Hospital10-20-2022 Miscellaneous Notes* Telephone Encounter - Qian Suh Ma - 12/31/2021 10:18 AM EDT Patient called back and patient advised that our office does not fill out Social security disability. Patient states she just found that the office will request records and she does not need to have physicians fill out paperwork. Patient will pick pulling machine tender forms that she dropped off. Left at Ortho front sight attacher. * Telephone Encounter - Qian Suh Ma [...] message for patient to contact office. Dr. Fletcher will not fill out these forms. Patient seen in office for patellofemoral instability and that will not qualify her for disability. documented in this encounterOur Lady Of Mercy Hospital10-11-2022 Miscellaneous Notes* Telephone Encounter - Kandis Blunt LPN - 12/22/2021 2:45 PM EDT Pt brought in form from social security administration to be completed by pcp.to pcp to review. Call pt when ready for pick pulling machine tender. She notes they need all medical records too. documented in this encounterOur Lady Of Mercy Hospital09-30-2022 Miscellaneous Notes* Telephone Encounter - Qian [...] an injection. She will try PT at [facility]. Patient asking if anti inflammatory can be increased and refilled? Confirmed [facility] in [place]. * Telephone Encounter - Stephanie George PA-C - 12/08/2021 4:[address] Fletcher's office note at patients last visit " We discussed possible cortisone injection andformal therapy as well. Weight loss will help as well." I entered a order for physical therapy, shecan schedule a follow up for cortisone injection as well. I would have her talk with PCP regarding guidance for weight loss. * Telephone Encounter - Jing Joaquin RN - 12/08/2021 11:53 AM EDT Joellen called to update Dr. Fletcher on her right knee. She advised that she is using the brace and taking etodolac. If she stays off of her feet, the brace and the medication are helping control her pain, but if she has to be on her feet for an extended period of time, the medication does not help with her pain. Joellen would like someone from Dr. Fletcher's office to call her back and advise of any other modalities she can try. Jing Joaquin RN documented in this encounterOur Lady Of Mercy Hospital08-15-2022 History of Present illness Narrative* Qian Suh Ma - 10/26/2021 3:08 PM EDT PT ASSESSMENT - CASTING ROOM Joellen presents for Application of brace. Applied XXL wrap around hinged knee brace to Right knee. Patient electronically signed [place] [employer]. Patient has been instructed in Care of brace. Qian Suh Ma * Frank Fletcher MD - 10/26/2021 2:12 PM EDT Frank Fletcher MD Department of Orthopaedics Orthopaedics [address] [facility] [address] Dept: [phone] Dept October 26, 2021 Consultation requested by [...] well. FOLLOW UP INSTRUCTIONS: As needed Ms. Joellen Gant was advised as to contrast therapies and/or to take analgesics/anti-inflammatories as needed and all contraindications were reviewed. OBJECTIVE: Ms. Joellen Gant is a pleasant 56 year old [...] mild degenerative changes in the right knee. Climatologist: [facility] Transcribe Date/Time: Oct 09 2021 3:56P Dictated [...] Obesity, Class III, BMI 40-49.9 (morbid obesity) ([facility]) 07/27/2017 Tobacco use disorder Unspecified hearing [...] mask of choice, HUMIDITY. LIFETIME SUPPLIES. DME: [facility] No current facility-administered medications for this visit. Allergies: Seasonal Allergies ROS: General (negative for fatigue, malaise, weight loss/gain) HEENT (negative for headache, earache, recent vision changes, sinus pain, sore throat) Respiratory (no recent shortness of breath, hemoptysis) CV (negative for chest tightness, palpitations) Musculoskeletal (see HPI) Psych (no depression, anxiety) REFERRING PHYSICIAN: Ms. Joellen Gant was referred to ia for consultation by the following physician. This consultation note will be sent to the following physician by either mail or electronic medical record. 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 documented as of this encounter (statuses as of 11/19/2021) [facility] of Past illness Narrative* Problem Noted Date Resolved Date Dermatophytosis of nail 04/08/2021 10/09/19 22 Pain in joint, lower leg 2010 016 Tobacco use disorder 06/13/2008 07/31/2015 Overview: Pt interested in quitting as of 08-20 but worried about turning to "food" Non morbid obesity due to excess calories 200804/08/2021 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 documented as of this encounter (statuses as of 12/11/2021) [facility] of Past illness Narrative* Problem Noted Date Resolved Date Dermatophytosis of nail 04/08/2021 10/09/19 22 Pain in joint, lower leg 2010 016 Tobacco use disorder 06/13/2008 07/31/2015 Overview: Pt interested in quitting as of 08-20 but worried about turning to "food" Non morbid obesity due to excess calories 200804/08/2021 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 documented as of this encounter (statuses as of 12/31/2021) [facility] of Past illness Narrative* Problem Noted Date Resolved Date Dermatophytosis of nail 04/08/2021 10/09/19 22 Pain in joint, lower leg 2010 016 Tobacco use disorder 06/13/2008 07/31/2015 Overview: Pt interested in quitting as of 08-20 but worried about turning to "food" Non morbid obesity due to excess calories 200804/08/2021 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 documented as of this encounter (statuses as of 01/08/2022) [facility] of Past illness Narrative* Problem Noted Date Resolved Date Dermatophytosis of nail 04/08/2021 10/09/19 22 Pain in joint, lower leg 2010 016 Tobacco use disorder 06/13/2008 07/31/2015 Overview: Pt interested in quitting as of 08-20 but worried about turning to "food" Non morbid obesity due to excess calories 200804/08/2021 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 documented as of this encounter (statuses as of 02/09/2022) [facility] of [facility] illness Narrative* Problem Noted Date Resolved Date Dermatophytosis of nail 04/08/2021 10/09/19 22 Pain in joint, lower leg 2010 016 Tobacco use disorder 06/13/2008 07/31/2015 Overview: Pt interested in quitting as of 08-20 but worried about turning to "food" Non morbid obesity due to excess calories 200804/08/2021 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 documented as of this encounter (statuses as of 04/12/2022) [facility] of Past illness Narrative* Problem Noted Date Resolved Date Dermatophytosis of nail 04/08/2021 10/09/19 22 Pain in joint, lower leg 2010 016 Tobacco use disorder 06/13/2008 07/31/2015 Overview: Pt interested in quitting as of 08-20 but worried about turning to "food" Non morbid obesity due to excess calories 200804/08/2021 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 documented as of this encounter (statuses as of 04/20/2022) [facility] Narrative* Problem Noted Date Resolved Date Dermatophytosis of nail 04/08/2021 10/09/19 22 Pain in joint, lower leg 2010 016 Tobacco use disorder 06/13/2008 07/31/2015 Overview: Pt interested in quitting as of 08-20 but worried about turning to "food" Non morbid obesity due to excess calories 200804/08/2021 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 documented as of this encounter (statuses as of 06/04/2022) [facility] Narrative* Problem Noted Date Resolved Date Dermatophytosis of nail 04/08/2021 10/09/19 Pain in joint, lower leg 2010 016 Tobacco use disorder 06/13/2008 07/31/2015 Overview: Pt interested in quitting as of 08-20 but worried about turning to "food" Non morbid obesity due to excess calories 200804/08/2021 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 documented as of this encounter (statuses as of 09/15/2022) [facility] Narrative* Problem Noted Date Diagnosed Date Resolved Date Dermatophytosis of nail 04/08/202109/12 Pain in joint, lower leg 2010 Tobacco use disorder 06/13/2008 016 Overview: Pt interested in quitting as of 08-20 but worried about turning to "food" Non morbid obesity due to excess calories 06/13/2008 04/08/2021 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 documented as of this encounter (statuses as of 09/20/2022) [facility] of [facility] Narrative* Problem Noted Date Diagnosed Date Resolved Date Dermatophytosis of nail 04/08/2021 072 10/2021 Pain in joint, lower leg 2010 Tobacco use disorder 06/13/2008 016 Overview: Pt interested in quitting as of 08-20 but worried about turning to "food" Non morbid obesity due to excess calories 06/13/2008 04/08/2021 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 documented as of this encounter (statuses as of 10/11/2022) [address]26-2022 History of Past illness Narrative* Problem Noted Date Diagnosed Date Resolved Date Dermatophytosis of nail 04/08/2021 072 10/2021 Pain in joint, lower leg 2010 Tobacco use disorder 06/13/2008 016 Overview: Pt interested in quitting as of 08-20 but worried about turning to "food" Non morbid obesity due to excess calories 06/13/2008 04/08/2021 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 documented as of this encounter (statuses as of 10/12/2022) [facility]01-26-2022 History of Past illness Narrative* Problem Noted Date Diagnosed Date Resolved Date Dermatophytosis of nail 04/08/2021 072 10/2021 Pain in joint, lower leg 2010 Tobacco use disorder 06/13/2008 016 Overview: Pt interested in quitting as of 08-20 but worried about turning to "food" Non morbid obesity due to excess calories 06/13/2008 04/08/2021 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 documented as of this encounter (statuses as of 11/04/2022) [address]26-2022 History of Past illness Narrative* Problem Noted Date Diagnosed Date Resolved Date Dermatophytosis of nail 04/08/20212 10/2021 Pain in joint, lower leg 2010 Tobacco use disorder 06/13/2008 016 Overview: Pt interested in quitting as of 08-20 but worried about turning to "food" Non morbid obesity due to excess calories 06/13/2008 04/08/2021 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 documented as of this encounter (statuses as of 11/18/2022) [facility]-26-2022 History of Past illness Narrative* Problem Noted Date Diagnosed Date Resolved Date Dermatophytosis of nail 04/08/20212 10/2021 Pain in joint, lower leg 2010 Tobacco use disorder 06/13/2008 016 Overview: Pt interested in quitting as of 08-20 but worried about turning to "food" Non morbid obesity due to excess calories 06/13/2008 04/08/2021 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 documented as of this encounter (statuses as of 12/28/2022) [facility]-26-2022 History of Past illness Narrative* Problem Noted Date Diagnosed Date Resolved Date Dermatophytosis of nail 04/08/202109/12 Pain in joint, lower leg 2010 Tobacco use disorder 06/13/2008 016 Overview: Pt interested in quitting as of 08-20 but worried about turning to "food" Non morbid obesity due to excess calories 06/13/2008 04/08/2021 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 documented as of this encounter (statuses as of 01/16/2023) [facility]2022 History of Past illness Narrative* Problem Noted Date Diagnosed Date Resolved Date Dermatophytosis of nail 04/08/20212 10/2021 Pain in joint, lower leg 2010 Tobacco use disorder 06/13/2008 016 Overview: Pt interested in quitting as of 08-20 but worried about turning to "food" Non morbid obesity due to excess calories 06/13/2008 04/08/2021 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 documented as of this encounter (statuses as of 01/27/2023) [address]26-2022 History of Past illness Narrative* Problem Noted Date Diagnosed Date Resolved Date Dermatophytosis of nail 04/08/20212 10/2021 Pain in joint, lower leg 2010 Tobacco use disorder 06/13/2008 016 Overview: Pt interested in quitting as of 08-20 but worried about turning to "food" Non morbid obesity due to excess calories 06/13/2008 04/08/2021 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 documented as of this encounter (statuses as of 02/15/2023) [facility] History of Past illness Narrative* Problem Noted Date Diagnosed Date Resolved Date Dermatophytosis of nail 04/08/20212 10/2021 Pain in joint, lower leg 2010 Tobacco use disorder 06/13/2008 016 Overview: Pt interested in quitting as of 08-20 but worried about turning to "food" Non morbid obesity due to excess calories 06/13/2008 04/08/2021 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 documented as of this encounter (statuses as of 02/22/2023) [facility] History of Past illness Narrative* Problem Noted Date Diagnosed Date Resolved Date Dermatophytosis of nail 04/08/202109/12 Pain in joint, lower leg 2010 Tobacco use disorder 06/13/2008 016 Overview: Pt interested in quitting as of 08-20 but worried about turning to "food" Non morbid obesity due to excess calories 06/13/2008 04/08/2021 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 documented as of this encounter (statuses as of 02/22/2023) [facility]20[facility] History of Past illness Narrative* Problem Noted Date Diagnosed Date Resolved Date Dermatophytosis of nail 04/08/202109/12 Pain in joint, lower leg 2010 Tobacco use disorder 06/13/2008 016 Overview: Pt interested in quitting as of 08-20 but worried about turning to "food" Non morbid obesity due to excess calories 06/13/2008 04/08/2021 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 documented as of this encounter (statuses as of 02/25/2023) [facility]26[facility]2022 History of Past illness Narrative* Problem Noted Date Diagnosed Date Resolved Date Dermatophytosis of nail 04/08/202109/12 Pain in joint, lower leg 2010 Tobacco use disorder 06/13/2008 016 Overview: Pt interested in quitting as of 08-20 but worried about turning to "food" Non morbid obesity due to excess calories 06/13/2008 04/08/2021 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 documented as of this encounter (statuses as of 02/26/2023) [facility]2022 History of Past illness Narrative* Problem Noted Date Diagnosed Date Resolved Date Dermatophytosis of nail 04/08/202109/12 Pain in joint, lower leg 2010 Tobacco use disorder 06/13/2008 016 Overview: Pt interested in quitting as of 08-20 but worried about turning to "food" Non morbid obesity due to excess calories 06/13/2008 04/08/2021 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 documented as of this encounter (statuses as of 03/20/2023) [facility]01[facility]2022 History of Past illness Narrative* Problem Noted Date Diagnosed Date Resolved Date Dermatophytosis of nail 04/08/202109/12 Pain in joint, lower leg 2010 Tobacco use disorder 06/13/2008 016 Overview: Pt interested in quitting as of 08-20 but worried about turning to "food" Non morbid obesity due to excess calories 06/13/2008 04/08/2021 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 documented as of this encounter (statuses as of 04/15/2023) [facility] History of Past illness Narrative* Problem Noted Date Diagnosed Date Resolved Date Dermatophytosis of nail 04/08/202109/12 Pain in joint, lower leg 2010 Tobacco use disorder 06/13/2008 016 Overview: Pt interested in quitting as of 08-20 but worried about turning to "food" Non morbid obesity due to excess calories 06/13/2008 04/08/2021 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 documented as of this encounter (statuses as of 05/12/2023) [facility]01[facility]26[facility]2022 History of Past illness Narrative* Problem Noted Date Diagnosed Date Resolved Date Dermatophytosis of nail 04/08/202109/12 Pain in joint, lower leg 2010 Tobacco use disorder 06/13/2008 016 Overview: Pt interested in quitting as of 08-20 but worried about turning to "food" Non morbid obesity due to excess calories 06/13/2008 04/08/2021 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 documented as of this encounter (statuses as of 05/31/2023) [facility]11-12-2019 Evaluation note* Diagnosis Onset Date Resolution Status Dyspnea on exertion acute Headache acute Obesity, morbid, BMI 40.0-49.9 acute History of right and left he art catheterization January 23, 2019 resolved Abdominal pain acute Diarrhea acute Elevated alkaline phosphatase level acute Obesity, morbid, BMI 40.0-49.9 acute [facility] Work Phone: 1(470) 402-837511-12-2019 Evaluation note* Diagnosis Onset Date Resolution Status Abnormal TSH acute Dyspnea on exertion chronic History of right and left he art catheterization January 23, 2019 chronic Obesity, morbid, BMI 40.0-49.9 chronic Palpitations chronic [facility] Work Phone: 1(465) 358-689811-12-2019 Evaluation note* Diagnosis Onset Date Resolution Status Abnormal TSH acute Dyspnea on exertion chronic History of right and left he art catheterization January 23, 2019 chronic Obesity, morbid, BMI 40.0-49.9 chronic Palpitations chronic Abnormal TSH acute Chest pain acute Chronic kidney disease (CKD) chronic Dyspnea on exertion chronic History of right and left he art catheterization January 23, 2019 chronic Obesity, morbid, BMI 40.0-49.9 chronic Palpitations chronic Hypothyroidism (acquired) [facility] Work Phone: 1(772) 504-939111-12-2019 Evaluation note* Diagnosis Onset Date Resolution Status Abnormal TSH acute Chest pain acute Chronic kidney disease (CKD) chronic Dyspnea on exertion chronic History of right and left he art catheterization January 23, 2019 chronic Obesity, morbid, BMI 40.0-49.9 chronic Palpitations chronic Hypothyroidism (acquired) [facility] Asthma chronic Dyspnea on exertion chronic Obesity, morbid, BMI 40.0-49.9 chronic 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 Smoking greater than 30 pack years chronic GERD (gastroesophageal reflux disease) chronic IBS (irritable bowel syndrome) [facility] Work Phone: 1(480) 796-128611-02-2010 History of Past illness Narrative* Problem Noted Date Resolved Date Pain in joint, lower leg 2010 016 Tobacco use disorder 06/13/2008 07/31/2015 Overview: Pt interested in quitting as of 08-20 but worried about turning to "food" Non morbid obesity due to excess calories 200804/08/2021 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 documented as of this encounter (statuses as of 08/26/2021) [facility]11-02-2010 History of Past illness Narrative* Problem Noted Date Resolved Date Pain in joint, lower leg 2010 016 Tobacco use disorder 06/13/2008 07/31/2015 Overview: Pt interested in quitting as of 08-20 but worried about turning to "food" Non morbid obesity due to excess calories 200804/08/2021 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 documented as of this encounter (statuses as of 08/31/2021) [facility]11-[facility]2010 History of Past illness Narrative* Problem Noted Date Resolved Date Pain in joint, lower leg 2010 016 Tobacco use disorder 06/13/2008 07/31/2015 Overview: Pt interested in quitting as of 08-20 but worried about turning to "food" Non morbid obesity due to excess calories 200804/08/2021 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 documented as of this encounter (statuses as of 09/14/2021) [facility] Diagnosis Encounter for screening mammogram for breast cancer [facility] Diagnosis 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- Primary Effusion of right knee Effusion of lower leg joint [facility] Diagnosis 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- Primary Effusion of right knee Effusion of lower leg joint documented in this encounter [facility] note* Diagnosis Onset Date Resolution Status Hiatal hernia acute Hiatal hernia acute Obesity, morbid, BMI 40.0-49.9 acute Restrictive pattern present on pulmonary function testing acute 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 GERD (gastroesophageal reflux disease) chronic IBS (irritable bowel syndrome) chronic [facility] Work Phone: Evaluation note* Diagnosis Chronic pain of right knee- Primary Impaired mobility Other ill-defined conditions Obesity, Class III, BMI 40-49.9 (morbid obesity) (HCC) Morbid obesity VETO on CPAP 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 apnea (adult) (pediatric) Bile-induced gastritis Other specified gastritis without mention of hemorrhage Gastroesophageal reflux disease, unspecified whether esophagitis present Chronic renal impairment, stage 3a (HCC) [facility] Diagnosis Osteoarthritis of right knee, unspecified osteoarthritis type- Primary Chronic pain of right knee documented in this encounter [facility]No [facility]* Diagnosis 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 Effusion of right knee Effusion of lower leg joint documented in this encounter [facility] note* Diagnosis Encounter for screening mammogram for breast cancer documented in this encounter [facility] note* Diagnosis 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 Effusion of right knee Effusion of lower leg joint documented in this encounter [facility] note* Diagnosis Mild intermittent asthma without complication Unspecified asthma Eczema, unspecified type documented in this encounter [facility] note* Diagnosis Mild intermittent asthma without complication Unspecified asthma Eczema, unspecified type documented in this encounter [facility] note* Diagnosis Wellness examination- Primary Weight gain [...] single bacterial disease documented in this encounter [facility] note* Diagnosis 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 Effusion of right knee Effusion of lower leg joint [facility]* Diagnosis Renal insufficiency Unspecified disorder of kidney and ureter documented [facility] this [facility]* Diagnosis Right knee pain, unspecified chronicity- Primary [facility]* Diagnosis Right knee pain, unspecified chronicity [facility] this [facility]* Diagnosis Multiple leg contusions, right, initial encounter Acute pain of right knee [facility]* Diagnosis Multiple leg contusions, right, initial encounter- Primary Acute pain of right knee Primary osteoarthritis of right knee Primary localized osteoarthrosis, lower leg [facility]* Diagnosis Stage 3a chronic kidney disease (HCC)- Primary Elevated serum creatinine Other nonspecific findings on examination of blood Right renal atrophy Renal sclerosis, unspecified Obesity, Class III, BMI 40-49.9 (morbid obesity) (HCC) Morbid obesity BMI 45.0-49.9, adult (HCC) Body Mass Index 45.0-49.9, adult [facility] Diagnosis Stage 3a chronic kidney disease (HCC)- Primary [facility]* Diagnosis Multiple leg contusions, right, initial encounter Acute pain of right knee Primary osteoarthritis of right knee Primary localized osteoarthrosis, lower leg [facility] this [facility]* Diagnosis Onset Date Resolution Status Hypothyroidism (acquired) [facility] Asthma chronic Dyspnea on exertion chronic Obesity, morbid, BMI 40.0-49.9 chronic 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 Smoking greater than 30 pack years chronic GERD (gastroesophageal reflux disease) chronic IBS (irritable bowel syndrome) chronic [facility] Work Phone: Evaluation note* Diagnosis Gastroesophageal reflux disease, unspecified whether esophagitis present- Primary Class 3 severe obesity with serious comorbidity and body mass index (BMI) of 45.0 to 49.9 in adult, unspecified obesity type (HCC) Paraesophageal hernia Diaphragmatic hernia without mention of obstruction or gangrene Stage 3 chronic kidney disease, unspecified whether stage 3a or 3b CKD (HCC) Hypothyroidism, unspecified type Esophageal dysphagia Dysphagia, pharyngoesophageal phase documented [facility] this [facility] Diagnosis Onset Date Resolution Status Asthma chronic Dyspnea on exertion chronic Obesity, morbid, BMI 40.0-49.9 chronic 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 Smoking greater than 30 pack years chronic GERD (gastroesophageal reflux disease) chronic IBS (irritable bowel syndrome) chronic GERD (gastroesophageal reflux disease) chronic IBS (irritable bowel syndrome) chronic [facility] Work Phone: Evaluation note* Diagnosis Hyperglycemia- Primary Other abnormal glucose Esophageal dysphagia Dysphagia, pharyngoesophageal phase documented [facility] this encounter [facility]* Diagnosis Subclinical hypothyroidism- Primary Other specified acquired hypothyroidism Mild intermittent asthma without complication Unspecified asthma Eczema, unspecified type Obesity, Class III, BMI 40-49.9 (morbid obesity) (HCC) Morbid obesity No appetite Anorexia Esophageal dysphagia Dysphagia, pharyngoesophageal phase documented [facility] this encounter [facility]* Diagnosis Gastroesophageal reflux disease, unspecified whether esophagitis present [facility] this encounter [facility]* Diagnosis 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 Effusion of right knee Effusion of lower leg joint [facility]* Diagnosis Multiple leg contusions, right, initial encounter Acute pain of right knee Primary osteoarthritis of right knee Primary localized osteoarthrosis, lower leg documented in this encounter [facility] note* Diagnosis Encounter for screening mammogram for breast cancer documented in this encounter [facility] note* Diagnosis 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 Effusion of right knee Effusion of lower leg joint documented in this encounter [facility] note* Diagnosis Gastroesophageal reflux disease without esophagitis- Primary Esophageal reflux Paraesophageal hernia Diaphragmatic hernia without mention of obstruction or gangrene Class 3 severe obesity with serious comorbidity and body mass index (BMI) of 45.0 to 49.9 in adult, unspecified obesity type ([facility]) Atrial fibrillation, unspecified type ([facility]) Uncomplicated asthma, unspecified asthma severity, unspecified whether persistent Stage 3 chronic kidney disease, unspecified whether stage 3a or 3b CKD ([facility]) Hypothyroidism, unspecified type documented in this encounter [facility] note* Diagnosis Class 3 severe obesity due to excess calories with serious comorbidity and body mass index (BMI) of 45.0 to 49.9 in adult ([facility])- Primary Gastroesophageal reflux disease without esophagitis Esophageal reflux Paraesophageal hernia Diaphragmatic hernia without mention of obstruction or gangrene Irritable bowel syndrome, unspecified type Atrial fibrillation, unspecified type ([facility]) Hyperlipidemia, unspecified hyperlipidemia type Lymphedema Other lymphedema VETO treated with BiPAP Asthma, unspecified asthma severity, unspecified whether complicated, unspecified whether persistent Arthralgia, unspecified joint Stage 3 chronic kidney disease, unspecified whether stage 3a or 3b CKD ([facility]) Hypothyroidism, unspecified type documented in this encounter [facility] note* Diagnosis Vitamin D deficiency- Primary Unspecified vitamin D deficiency Folate deficiency Other B-complex deficiencies documented in this encounter [facility] note* Diagnosis Class 3 severe obesity due to excess calories with serious comorbidity and body mass index (BMI) of 45.0 to 49.9 in adult ([facility])- Primary documented in this encounter [facility] note* Diagnosis Gastroesophageal reflux disease, unspecified whether esophagitis present- Primary Mild intermittent asthma without complication Unspecified asthma Screening for depression Encounter for screening examination for other mental health and behavioral disorders Atypical chest pain Other chest pain Obesity, Class III, BMI 40-49.9 (morbid obesity) ([facility]) Morbid obesity Need for vaccination Need for prophylactic vaccination and inoculation against unspecified single disease [facility] Vitamin D deficiency- Primary Unspecified vitamin D deficiency [facility] Diagnosis Effusion of right knee Effusion of lower leg joint [facility] Diagnosis Class 3 severe obesity due to excess calories with serious comorbidity and body mass index (BMI) of 45.0 to 49.9 in adult (HCC)- Primary VETO treated with BiPAP Chronic kidney disease, unspecified CKD stage Atrial fibrillation, unspecified type (HCC) Need for vaccination Need for prophylactic vaccination and inoculation against unspecified single disease [facility] Diagnosis Vitamin D deficiency Unspecified vitamin D deficiency [facility] Diagnosis Class 3 severe obesity due to excess calories with serious comorbidity and body mass index (BMI) of 45.0 to 49.9 in adult ([facility])- Primary [facility]* Diagnosis Stage 3b chronic kidney disease (HCC)- Primary Gastroesophageal reflux disease, unspecified whether esophagitis present BMI 40.0-44.9, adult (HCC) Body Mass Index 40.0-44.9, adult Right renal atrophy Renal sclerosis, unspecified [facility]* Diagnosis Class 3 drug-induced obesity with serious comorbidity and body mass index (BMI) of 40.0 to 44.9 in adult (HCC)- Primary VETO treated with BiPAP Chronic kidney disease, unspecified CKD stage [facility] Diagnosis Dietary counseling and surveillance- Primary Dietary surveillance and counseling [facility] Diagnosis Dietary counseling and surveillance- Primary Dietary surveillance and counseling [facility] Diagnosis Onychodystrophy- Primary Other specified disease of nail Diminished pulses in lower extremity Other symptoms involving cardiovascular system Pain in toe of left foot Pain in limb Pain in toe of right foot Pain in limb [facility] Diagnosis Eating disorder, unspecified type- Primary Anxiety Anxiety state, unspecified Trauma in childhood documented [facility] this encounter [facility]* Diagnosis Class 3 drug-induced obesity with serious comorbidity and body mass index (BMI) of 40.0 to 44.9 in adult ([facility])- Primary documented in this encounter [facility] note* Diagnosis Dietary counseling and surveillance- Primary Dietary surveillance and counseling documented in this encounter [facility] note* Diagnosis Class 3 severe obesity due to excess calories with serious comorbidity and body mass index (BMI) of 45.0 to 49.9 in adult (HCC)- Primary [facility]* Diagnosis Need for influenza vaccination- Primary Need for prophylactic vaccination and inoculation against influenza Mild intermittent asthma without complication Unspecified asthma Eczema, unspecified type Atypical chest pain Other chest pain Irritable bowel syndrome with diarrhea Irritable bowel syndrome Screening for cervical cancer Screening for malignant neoplasm of the cervix EVTO on CPAP 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 apnea (adult) (pediatric) Cirrhosis of liver without ascites, unspecified hepatic cirrhosis type (HCC) [facility] Diagnosis Eating disorder, unspecified type- Primary Anxiety Anxiety state, unspecified Trauma in childhood [facility] Diagnosis Dietary counseling and surveillance- Primary Dietary surveillance and counseling documented in this encounter [facility] note* Diagnosis Dietary counseling and surveillance- Primary Dietary surveillance and counseling documented in this encounter [facility] note* Diagnosis Obesity, Class III, BMI 40-49.9 (morbid obesity) (HCC)- Primary Morbid obesity Acquired hypothyroidism Unspecified hypothyroidism Stage 3a chronic kidney disease (HCC) Gastroesophageal reflux disease, unspecified whether esophagitis present Cirrhosis of liver without ascites, unspecified hepatic cirrhosis type (HCC) VETO on CPAP 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 apnea (adult) (pediatric) Dietary counseling and surveillance Dietary surveillance and counseling BMI 39.0-39.9,adult Body Mass Index 39.0-39.9, adult documented in this encounter [facility] note* Diagnosis Class 2 obesity with body mass index (BMI) of 39.0 to 39.9 in adult, unspecified obesity type, unspecified whether serious comorbidity present- Primary VETO (obstructive sleep apnea) 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 apnea (adult) (pediatric) Cirrhosis of liver without ascites, unspecified hepatic cirrhosis type (HCC) Stage 3a chronic kidney disease (HCC) Paraesophageal hernia Diaphragmatic hernia without mention of obstruction or gangrene Leg edema Edema Obesity, Class III, BMI 40-49.9 (morbid obesity) Morbid obesity Acquired hypothyroidism Unspecified hypothyroidism Gastroesophageal reflux disease, unspecified whether esophagitis present VETO on CPAP 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 apnea (adult) (pediatric) Dietary counseling and surveillance Dietary surveillance and counseling BMI 39.0-39.9,adult Body Mass Index 39.0-39.9, adult documented in this encounter [facility] note* Diagnosis Right-sided low back pain with right-sided sciatica, unspecified chronicity documented in this encounter [facility] note* Diagnosis Right-sided low back pain with right-sided sciatica, unspecified chronicity- Primary Cirrhosis of liver without ascites, unspecified hepatic cirrhosis type (HCC) Stage 3a chronic kidney disease (HCC) Osteoarthritis of right knee, unspecified osteoarthritis type documented in this encounter [facility] note* Diagnosis Cirrhosis of liver without ascites, unspecified hepatic cirrhosis type (HCC) Stage 3a chronic kidney disease (HCC) Obesity, Class III, BMI 40-49.9 (morbid obesity) (HCC) Morbid obesity Acquired hypothyroidism Unspecified hypothyroidism Gastroesophageal reflux disease, unspecified whether esophagitis present VETO on CPAP 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 apnea (adult) (pediatric) Dietary counseling and surveillance Dietary surveillance and counseling BMI 39.0-39.9,adult Body Mass Index 39.0-39.9, adult documented in this encounter [facility] note* Diagnosis Memory loss- Primary documented in this encounter [facility] note* Diagnosis Encounter for screening mammogram for breast cancer documented in this encounter [facility] note* Diagnosis Memory loss- Primary documented in this encounter [facility] note* Diagnosis Executive function deficit- Primary Frontal lobe and executive function deficit Cognitive complaints Other signs and symptoms involving cognition History of ADHD Personal history of other mental disorder documented in this encounter [facility] Discharge instructions Additional Instructions Please pick pulling machine tender the medications Dr. Byrnes prescribed you from the pharmacy. [facility] Work Phone: Reason for referral (narrative)* Diagnostic Procedure Only (Routine) - Pending Review Specialty Diagnoses / Procedures Referred By Contsridhar t Referred To Contact [facility] Diagnoses Encounter for screening mammogram for breast cancer Procedures MEREDITH SCREENING SCREENING MAMMOGRAPHY BI 2-VIEW BREAST INC Sam Abrams MD [address] [place] [address] [facility] [address] [place] [address] Referral ID Status Reason Start Date Expiration Date Visits Requested Visits Authorized [id number] Pending Review Auto-Generat ed Referral 09/09/2021 10/09/2022 1 1 [facility] for referral (narrative)* - Pending Review Specialty Diagnoses / Procedures Referred By Contac t Referred To Contact Physical Therapy Diagnoses 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 Effusion of right knee Procedures CONSULT TO PHYSICAL THERAPY Stephanie George PA-C [address] [place] [id number] Referral ID Status Reason Start Date Expiration Date V isits Requested Visits Authorized [id number] Pending Review 12/08/2021 03/08/2022 1 1 [facility] for referral (narrative)* Diagnostic Procedure Only (Routine) - Pending Review Specialty Diagnoses / Procedures Referred By Contac t Referred To Contact [facility] Diagnoses Encounter for screening mammogram for breast cancer Procedures MEREDITH SCREENING SCREENING MAMMOGRAPHY BI 2-VIEW BREAST INC CAD Sam Null MD [address] [place] [address] [facility] [address] [place] [address] Referral ID Status Reason Start Date Expiration Date Visits Requested Visits Authorized [id number] Pending Review Auto-Generat ed Referral 09/15/2022 10/15/2023 1 1 [facility] for referral (narrative)* Diagnostic Procedure Only (Routine) - Closed Specialty Diagnoses / Procedures Referred By Contac t Referred To Contact US IMAGING Diagnoses Renal insufficiency Procedures US KIDNEY/BLADDER US RETROPERITONEAL REAL TIME W/IMAGE Verito Chandler APRN.ERICK [address] [place] [address] [place] [address] Referral ID Status Reason Start Date Expiration Date V isits Requested Visits Authorized [id number] Closed Auto-Generate d Referral 11/18/2022 12/18/2023 1 1 [facility] for referral (narrative)* Diagnostic Procedure Only (Routine) - Pending Review Specialty Diagnoses / Procedures Referred By Contac t Referred To Contact XR IMAGING Diagnoses Right knee pain, unspecified chronicity Procedures XR KNEE GENERAL 4V AP BOTH/PA BOTH/LAT/MERC RIGHT RADIOLOGIC EXAM KNEE COMPLETE 4/MORE VIEWS Frank Fletcher MD [address] [place] [address] [place] [address] Referral ID Status Reason Start Date Expiration Date Visits Requested Visits Authorized [id number] Pending Review Auto-Generat ed Referral 02/14/2023 03/15/2024 1 1 [facility] for referral (narrative)* Diagnostic Procedure Only (Routine) - Closed Specialty Diagnoses / Procedures Referred By Contac t Referred To Contact XR IMAGING Diagnoses Multiple leg contusions, right, initial encounter Acute pain of right knee Procedures XR TIBIA FIBULA 2V AP/LAT RIGHT RADIOLOGIC EXAMINATION TIBIA & FIBULA 2 VIEWS Frank Fletcher MD [address] [place] [address] [place] [address] Referral ID Status Reason Start Date Expiration Date V isits Requested Visits Authorized [id number] Closed Auto-Generate d Referral 02/21/2023 03/22/2024 1 1 [facility] for referral (narrative)* Outpatient Procedure (Routine) - Pending Review Specialty Diagnoses / Procedures Referred By Contac t Referred To Contact [facility] Diagnoses Esophageal dysphagia Procedures MANOMETRY ESOPHAGEAL ESOPHAGEAL MOTILITY STUDY W/INTERP&RPT Marii Herzog MD [address] [address] [facility] [address] [place] [address] Referral ID Status Reason Start Date Expiration Date Visits Requested Visits Authorized [id number] Pending Review Auto-Generat ed Referral 07/06/2023 07/05/2024 1 1 * Outpatient Procedure (Routine) - Pending Review Specialty Diagnoses / Procedures Referred By Matty craven Referred To Contact [facility] Diagnoses Gastroesophageal reflux disease, unspecified whether esophagitis present Procedures EGD - THERAPEUTIC, EUS, OR TUBE INTERVENTIONS ESOPHAGOGASTRODUODENOSC OPY TRANSORAL DIAGNOSTIC Marii Herzog MD [address] [address] [facility] [address] [place] [address] Referral ID Status Reason Start Date Expiration Date Visits Requested Visits Authorized [id number] Pending Review Auto-Generat ed Referral 07/06/2023 07/05/2024 1 1 [facility] for referral (narrative)* Outpatient Procedure (Routine) - Closed Specialty Diagnoses / Procedures Referred By Matty craven Referred To Contact [facility] Diagnoses Gastroesophageal reflux disease, unspecified whether esophagitis present Procedures EGD - THERAPEUTIC, EUS, OR TUBE INTERVENTIONS EGD - THERAPEUTIC, EUS, OR TUBE INTERVENTIONS ESOPHAGOGASTRODUODENOSC OPY TRANSORAL DIAGNOSTIC Marii Herzog MD [address] [address] [facility] [address] [place] [address] Referral ID Status Reason Start Date Expiration Date V isits Requested Visits Authorized [id number] Closed Auto-Generate d Referral 07/06/2023 07/05/2024 1 1 [facility] for referral (narrative)* Diagnostic Procedure Only (Routine) - Pending Review Specialty Diagnoses / Procedures Referred By Matty craven Referred To Contact [facility] Diagnoses Encounter for screening mammogram for breast cancer Procedures MEREDITH SCREENING SCREENING MAMMOGRAPHY BI 2-VIEW BREAST INC Sam Abrams MD [address] [place] [address] [facility] [address] [place] [address] Referral ID Status Reason Start Date Expiration Date Visits Requested Visits Authorized [id number] Pending Review Auto-Generat ed Referral 08/17/2023 09/15/2024 1 1 [facility] for referral (narrative)* Diagnostic Procedure Only (Routine) - Pending Review Specialty Diagnoses / Procedures Referred By Contac t Referred To Contact US IMAG[facility] Diagnoses Class 3 severe obesity due to excess calories with serious comorbidity and body mass index (BMI) of 45.0 to 49.9 in adult (HCC) Procedures US ABD RIGHT UPPER QUADRANT US ABDOMINAL REAL TIME W/IMAGE LIMITED Gunner Sutton, CECELIA.LAST PATTERN GRADER [address] [place] [address] [place] [address] Referral ID Status Reason Start Date Expiration Date Visits Requested Visits Authorized [id number] Pending Review Auto-Generat ed Referral 09/20/2023 10/19/2024 1 1 [facility] for referral (narrative)* Diagnostic Procedure Only (Routine) - Closed Specialty Diagnoses / Procedures Referred By Contac t Referred To Contact XR IMAGING Diagnoses Effusion of right knee Procedures XR KNEE GENERAL 4V AP BOTH/PA BOTH/LAT/MERC RIGHT RADIOLOGIC EXAM KNEE COMPLETE 4/MORE VIEWS Sam Null MD [facility] [place] [address] [place] [address] Referral ID Status Reason Start Date Expiration Date V isits Requested Visits Authorized [id number] Closed Auto-Generate d Referral 10/08/2021 11/07/2022 1 1 T [facility] for referral (narrative)* Outpatient Procedure (Routine) - Authorized Specialty Diagnoses / Procedures Referred By Contac t Referred To Contact [facility] Diagnoses Onychodystrophy Diminished pulses in lower extremity Procedures PVR ANK PRESS [facility]TA VAS [facility] NON-INVAS PHYSIOLOGIC STD EXTREMITY ART 2 LEVEL Geri Fabian [address] [address] [facility] [address] [place] [address] Referral ID Status Reason Start Date Expiration Date Visits Requested Visits Authorized [id number] Authorized Auto-Generat ed Referral 03/01/2025 1 1 [facility] for referral (narrative)No [facility] for [facility] Reason for visit Narrative* Diagnostic Procedure Only (Routine) - Closed Specialty Diagnoses / Procedures Referred By Contac t Referred To Contact US IMAGING Diagnoses Renal insufficiency Procedures US KIDNEY/BLADDER US RETROPERITONEAL REAL TIME W/IMAGE COMPLETE Verito Broderick, RESEARCH INSTRUMENTATION TECHNICIAN.LAST PATTERN GRADER [address] [place] [address] [place] [address] Referral ID Status Reason Start Date Expiration Date V isits Requested Visits Authorized [id number] Closed Auto-Generate d Referral 11/18/2022 12/18/2023 1 1 [facility] for visit Narrative* Diagnostic Procedure Only (Routine) - Closed Specialty Diagnoses / Procedures Referred By Contac t Referred To Contact XR IMAGING Diagnoses Right knee pain, unspecified chronicity Procedures XR KNEE GENERAL 4V AP BOTH/PA BOTH/LAT/MERC RIGHT RADIOLOGIC EXAM KNEE COMPLETE 4/MORE VIEWS Frank Fletcher MD [address] [place] [address] [place] [address] Referral ID Status Reason Start Date Expiration Date V isits Requested Visits Authorized [id number] Closed Auto-Generate d Referral 02/14/2023 03/15/2024 1 1 [facility] for visit Narrative* Diagnostic Procedure Only (Routine) - Closed Specialty Diagnoses / Procedures Referred By Contac t Referred To Contact XR IMAGING Diagnoses Multiple leg contusions, right, initial encounter Acute pain of right knee Procedures XR TIBIA FIBULA 2V AP/LAT RIGHT RADIOLOGIC EXAMINATION TIBIA & FIBULA 2 VIEWS Frank Fletcher MD [address] [place] [address] [place] [address] Referral ID Status Reason Start Date Expiration Date V isits Requested Visits Authorized [id number] Closed Auto-Generate d Referral 02/21/2023 03/22/2024 1 1 [facility] for visit Narrative* Outpatient Procedure (Routine) - Closed Specialty Diagnoses / Procedures Referred By Contac t Referred To Contact [facility] Diagnoses Gastroesophageal reflux disease, unspecified whether esophagitis present Procedures EGD - THERAPEUTIC, EUS, OR TUBE INTERVENTIONS EGD - THERAPEUTIC, EUS, OR TUBE INTERVENTIONS ESOPHAGOGASTRODUODENOSC OPY TRANSORAL DIAGNOSTIC Marii Herzog MD [address] [address] [facility] [address] [place] [address] Referral ID Status Reason Start Date Expiration Date V isits Requested Visits Authorized [id number] Closed Auto-Generate d Referral 07/06/2023 07/05/2024 1 1 [facility] for visit Narrative* Diagnostic Procedure Only (Routine) - Closed Specialty Diagnoses / Procedures Referred By Contac t Referred To Contact XR IMAGING Diagnoses Effusion of right knee Procedures XR KNEE GENERAL 4V AP BOTH/PA BOTH/LAT/MERC RIGHT RADIOLOGIC EXAM KNEE COMPLETE 4/MORE VIEWS Sam Null MD [facility] [place] [address] [place] [address] Referral ID Status Reason Start Date Expiration Date V isits Requested Visits Authorized [id number] Closed Auto-Generate d Referral 10/08/2021 11/07/2022 1 1 [facility] for visit Narrative* Diagnostic Procedure Only (Routine) - Closed Specialty Diagnoses / Procedures Referred By Contac t Referred To Contact XR IMAGING Diagnoses Right-sided low back pain with right-sided sciatica, unspecified chronicity Procedures XR HIP GENERAL 3V PELV/AP/LAT RIGHT RADEX HIP UNILATERAL WITH PELVIS 2-3 VIEWS Sam Null MD [facility] [place] [address] Phone: tel: fax: [place] [address] Referral ID Status Reason Start Date Expiration Date V isits Requested Visits Authorized [id number] Closed Auto-Generate d Referral 07/26/2024 08/25/2025 1 1 [facility] for visit Narrative* Behavioral Health Services (Routine) - Authorized Specialty Diagnoses / Procedures Referred By Contsridhar t Referred To Contact PSYCHIATRY Diagnoses Anxiety Trauma in childhood Short-term memory issues Procedures NEUROPSYCHOLOGICAL TESTING CONSULT NEUROBEHAVIORAL STATUS XM PHYS/QHP 1ST HOUR NEUROPSYCHOLOGICAL TST EVAL PHYS/QHP 1ST HOUR NEUROPSYCHOLOGICAL TST EVAL PHYS/QHP EA ADDL HR PSYCL/NRPSYCL TST TECH 2+ TST 1ST 30 MIN PSYCL/NRPSYCL TST TECH 2+ TST EA ADDL 30 MIN Lisbet Steel, ARAM [address] [place] [address] Phone: tel: fax: Pamela Lopez, PhD [address] [facility] [address] [place] [address] Phone: tel: fax: Referral ID Status Reason Start Date Expiration Date Visits Requested Visits Authorized [id number] Authorized PCP Requested Referral 04/23/2024 12/19/2024 5 5 [facility] Summary Purpose Family History No Family History Records Found Relationship Condition Age at Onset Recorded Date/T liam mother Atrial fibrillation Unknown Cerebrovascular accident (CVA) Unknown Diabetes mellitus Unknown father Myocardial infarction Unknown Coronary artery disease Unknown sister Presence of cardiac pacemaker Unknown Advance Directives No Advanced Directives Records FoundDocuments on File Type Date Recorded Patient Dough Raiser Expl anation Advance Directive(s) 04/11/2017 1:26 PM Documents on File Type Date Recorded Patient Dough Raiser Expl anation Advance Directive(s) 04/11/2017 1:26 PM Advance Directive Response Recorded Date/ Time Living Will No September 09, 2021 8:03pm Power of Rn Clinical Quality No September 09 8:03pm Advance Directive Response Recorded Date/ Time Living Will No September 09, 2021 7:03pm Power of Rn Clinical Quality No September 09 7:03pm Advance Directive Response Recorded Date/ Time Living Will No April 07 2:02pm Power of Rn Clinical Quality No April 07, 2023 2:02pm Advance Directive Response Recorded Date/ Time Living Will No April 07 3:02pm Power of Rn Clinical Quality No April 07, 2023 3:02pm Advance Directive Response Recorded Date/ Time Living Will No April 07 3:02pm Do you have a Healthcare Power of Rn Clinical Quality? No April 07, 2023 3:02pm Chief Complaint and Reason for Visit Chief Complaint GENERAL ILLNESS 10 M FU E-ORDER 6 M FU Reason for Visit Dyspnea on exertion Headache Obesity, morbid, BMI 40.0-49.9 History of right and left heart catheterization Abdominal pain Diarrhea Elevated alkaline phosphatase level Obesity, morbid, BMI 40.0-49.9 Chief Complaint GENERAL ILLNESS 10 M FU E-ORDER 6 M FU DYSPNEA *JESSE* ABDOMINAL PAIN Reason for Visit Dyspnea on exertion Headache Obesity, morbid, BMI 40.0-49.9 History of right and left heart catheterization Abdominal pain Diarrhea Elevated alkaline phosphatase level Obesity, morbid, BMI 40.0-49.9 Chief Complaint WORSENING MIGRAINE GERD - VOMITING STOMACH ACID RE-ESTABLISH VETO FU PATELLOFEMORAL INSTABILITY RT KN/RX HERE HEMOPTYSIS Reason for Visit Hiatal hernia Hiatal hernia Obesity, morbid, BMI 40.0-49.9 Restrictive pattern present on pulmonary function testing 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 apnea GERD (gastroesophageal reflux disease) IBS (irritable bowel syndrome) Chief Complaint SOB PER L.LORSON BLOATING & PAIN Reason for Visit Abnormal TSH Dyspnea on exertion History of right and left heart catheterization Obesity, morbid, BMI 40.0-49.9 Palpitations Chief Complaint SOB PER L.LORSON BLOATING & PAIN 3 M FU Thyroid DYSPNEA DYSPNEA EKG FOR PEER TO PEER Gastro-esophageal reflux disease without esophagit Reason for Visit Abnormal TSH Dyspnea on exertion History of right and left heart catheterization Obesity, morbid, BMI 40.0-49.9 Palpitations Abnormal TSH Chest pain Chronic kidney disease (CKD) Dyspnea on exertion History of right and left heart catheterization Obesity, morbid, BMI 40.0-49.9 Palpitations Hypothyroidism (acquired) Chief Complaint BLOATING & PAIN 3 M FU Thyroid DYSPNEA DYSPNEA EKG FOR PEER TO PEER Gastro-esophageal reflux disease without esophagit Follow up Visit Follow up abd pain Reason for Visit Abnormal TSH Chest pain Chronic kidney disease (CKD) Dyspnea on exertion History of right and left heart catheterization Obesity, morbid, BMI 40.0-49.9 Palpitations Hypothyroidism (acquired) Asthma Dyspnea on exertion Obesity, morbid, BMI 40.0-49.9 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 apnea Smoking greater than 30 pack years GERD (gastroesophageal reflux disease) IBS (irritable bowel syndrome) Chief Complaint BLOATING & PAIN 3 M FU Thyroid DYSPNEA DYSPNEA EKG FOR PEER TO PEER Gastro-esophageal reflux disease without esophagit Follow up Visit Follow up abd pain TOBACCO ABUSE Reason for Visit Abnormal TSH Chest pain Chronic kidney disease (CKD) Dyspnea on exertion History of right and left heart catheterization Obesity, morbid, BMI 40.0-49.9 Palpitations Hypothyroidism (acquired) Asthma Dyspnea on exertion Obesity, morbid, BMI 40.0-49.9 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 apnea Smoking greater than 30 pack years GERD (gastroesophageal reflux disease) IBS (irritable bowel syndrome) Chief Complaint 3 M FU Thyroid DYSPNEA DYSPNEA EKG FOR PEER TO PEER Gastro-esophageal reflux disease without esophagit Follow up Visit Follow up abd pain TOBACCO ABUSE VETO INT LABS Reason for Visit Abnormal TSH Chest pain Chronic kidney disease (CKD) Dyspnea on exertion History of right and left heart catheterization Obesity, morbid, BMI 40.0-49.9 Palpitations Hypothyroidism (acquired) Asthma Dyspnea on exertion Obesity, morbid, BMI 40.0-49.9 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 apnea Smoking greater than 30 pack years GERD (gastroesophageal reflux disease) IBS (irritable bowel syndrome) Chief Complaint 3 M FU Thyroid DYSPNEA DYSPNEA EKG FOR PEER TO PEER Gastro-esophageal reflux disease without esophagit Follow up Visit Follow up abd pain TOBACCO ABUSE VETO INT LABS VETO; BIPAP *AS11 DEVICE TAGGED Reason for Visit Abnormal TSH Chest pain Chronic kidney disease (CKD) Dyspnea on exertion History of right and left heart catheterization Obesity, morbid, BMI 40.0-49.9 Palpitations Hypothyroidism (acquired) Asthma Dyspnea on exertion Obesity, morbid, BMI 40.0-49.9 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 apnea Smoking greater than 30 pack years GERD (gastroesophageal reflux disease) IBS (irritable bowel syndrome) Chief Complaint Thyroid DYSPNEA DYSPNEA EKG FOR PEER TO PEER Gastro-esophageal reflux disease without esophagit Follow up Visit Follow up abd pain TOBACCO ABUSE VETO INT LABS VETO; BIPAP *AS11 DEVICE TAGGED EORDER AND Need Null order Reason for Visit Hypothyroidism (acqu ired) Asthma Dyspnea on exertion Obesity, morbid, BMI 40.0-49.9 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 apnea Smoking greater than 30 pack years GERD (gastroesophageal reflux disease) IBS (irritable bowel syndrome) Chief Complaint EKG FOR PEER TO PEER Gastro-esophageal reflux disease without esophagit Follow up Visit Follow up abd pain TOBACCO ABUSE VETO INT LABS VETO; BIPAP *AS11 DEVICE TAGGED EORDER AND Need Null order Follow Up DYSPNEA DYSPNEA Reason for Visit Asthma Dyspnea on exertion Obesity, morbid, BMI 40.0-49.9 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 apnea Smoking greater than 30 pack years GERD (gastroesophageal reflux disease) IBS (irritable bowel syndrome) GERD (gastroesophageal reflux disease) IBS (irritable bowel syndrome) Chief Complaint Admit Date Follow Up March 02, 2024 10:36am 6 M FU May 03, 2024 2:04pm [email or web address] - Dyspnea, unspecified June 19, 2024 1:45pm Amb Documentation June 19, 2024 2:45 pm [email or web address] - Dyspnea, unspecified June 11:22am Reason for Visit Admit Date Abdominal pain March 02, 2024 10:36am Cirrhosis March 02, 2024 10:36am GERD (gastroesophageal reflux disease) D ec2023 10:36am IBS (irritable bowel syndrome) March 02, 2024 10:36am Asthma May 03, 2024 2:04pm Dyspnea on exertion May 03, 2024 2:04pm Obesity, morbid, BMI 40.0-49.9 May 03, 2024 2:04pm 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 apnea May 03, 2 025 2:04pm Smoking greater than 30 pack years 2024 2:04pm Chief Complaint Admit Date 6 M FU May 03, 2024 2:04pm [email or web address] - Dyspnea, unspecified June 19, 2024 1:45pm Amb Documentation June 19, 2024 2:45 pm [email or web address] - Dyspnea, unspecified June 11:22am [email or web address] - Dyspnea, unspecified June 12:53pm DYSPNEA August 03, 2024 1:34p m Reason for Visit Admit Date Asthma May 03, 2024 2:04pm Dyspnea on exertion May 03, 2024 2:04pm Obesity, morbid, BMI 40.0-49.9 May 03, 2024 2:04pm 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 apnea May 03, 2 025 2:04pm Smoking greater than 30 pack years 2024 2:04pm Chief Complaint Admit Date 6 M FU May 03, 2024 2:04pm [email or web address] - Dyspnea, unspecified June 19, 2024 1:45pm Amb Documentation June 19, 2024 2:45 pm [email or web address] - Dyspnea, unspecified June 11:22am [email or web address] - Dyspnea, unspecified June 12:53pm DYSPNEA August 03, 2024 1:34p m 17 M FU, NS 04/02, CX 0303, RS 04 ne 2024 2:29pm Reason for Visit Admit Date Asthma May 03, 2024 2:04pm Dyspnea on exertion May 03, 2024 2:04pm Obesity, morbid, BMI 40.0-49.9 May 03, 2024 2:04pm 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 apnea May 03, 2 025 2:04pm Smoking greater than 30 pack years 2024 2:04pm Hypothyroidism (acquired) August 13, 2024 2:29pm Chief Complaint Admit Date 6 M FU May 03, 2024 2:04pm R06.00 - Dyspnea, unspecified June 19, 2024 1:45pm Amb Documentation June 19, 2024 2:45 pm R06.00 - Dyspnea, unspecified June 11:22am R06.00 - Dyspnea, unspecified June 12:53pm DYSPNEA August 03, 2024 1:34p m 17 M FU, NS 04/02, CX 03, RS 04 ne 2024 2:29pm TEST RESULTS August 27, 2024 2:07 pm Reason for Visit Admit Date Asthma May 03, 2024 2:04pm Dyspnea on exertion May 03, 2024 2:04pm Obesity, morbid, BMI 40.0-49.9 May 03, 2024 2:04pm 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 apnea May 03, 2 025 2:04pm Smoking greater than 30 pack years 2024 2:04pm Hypothyroidism (acquired) August 13, 2024 2:29pm Obesity August 13, 2024 2:29p m Chief Complaint Admit Date R06.00 - Dyspnea, unspecified June 19, 2024 1:45pm Amb Documentation June 19, 2024 2:45 pm R06.00 - Dyspnea, unspecified June 11:22am R06.00 - Dyspnea, unspecified June 12:53pm DYSPNEA August 03, 2024 1:34p m 17 M FU, NS 04/02, CX 0303, RS 04 Mikayla peck 2024 2:29pm TEST RESULTS August 27, 2024 2:07 pm quit 05/2009September 21, 2024 4:45 pm Reason for Visit Admit Date Hypothyroidism (acquired) August 13, 2024 2:29pm Obesity August 13, 2024 2:29p m Abdominal pain August 27, 2024 2:07 pm Cirrhosis August 27, 2024 2:07 pm GERD (gastroesophageal reflux disease) J pending sale to [facility] 2024 2:07pm IBS (irritable bowel syndrome) August 2:07pm Chief Complaint Admit Date R06.00 - Dyspnea, unspecified June 12:53pm DYSPNEA August 03, 2024 1:34p m 17 M FU, NS 04/02, CX 03, RS 04 Mikayla peck 2024 2:29pm TEST RESULTS August 27, 2024 2:07 pm quit 05/2009September 21, 2024 4:45 pm Chest pain October 29, 2024 3: 50pm Reason for Visit Admit Date Hypothyroidism (acquired) August 13, 2024 2:29pm Obesity August 13, 2024 2:29p m Abdominal pain August 27, 2024 2:07 pm Cirrhosis August 27, 2024 2:07 pm GERD (gastroesophageal reflux disease) [facility] 2024 2:07pm IBS (irritable bowel syndrome) August 2:07pm Abnormal TSH October 29, 2024 3: 50pm Chest pain October 29, 2024 3: 50pm Preoperative clearance October 29, 2024 3:50pm Chronic kidney disease (CKD) October 3:50pm Dyspnea on exertion October 29, 2024 3: 50pm History of right and left heart catheter ization October 29, 2024 3:50pm Obesity, morbid, BMI 40.0-49.9 October 292024 3:50pm Palpitations October 29, 2024 3: 50pm Chief Complaint Admit Date DYSPNEA August 03, 2024 1:34p m 17 M FU, NS 04/02, CX 05/14, RS 04 Mikayla peck 2024 2:29pm TEST RESULTS August 27, 2024 2:07 pm quit 05/2009September 21, 2024 4:45 pm Chest pain October 29, 2024 3: 50pm 2 ORDERING KEYLA November 02, 2024 1: 34pm Reason for Visit Admit Date Hypothyroidism (acquired) August 13, 2024 2:29pm Obesity August 13, 2024 2:29p m Abdominal pain August 27, 2024 2:07 pm Cirrhosis August 27, 2024 2:07 pm GERD (gastroesophageal reflux disease) J une 2024 2:07pm IBS (irritable bowel syndrome) August 2:07pm Chest pain October 29, 2024 3: 50pm Chronic kidney disease (CKD) October 3:50pm Dyspnea on exertion October 29, 2024 3: 50pm History of right and left heart catheter ization October 29, 2024 3:50pm Obesity, morbid, BMI 40.0-49.9 October 292024 3:50pm Palpitations October 29, 2024 3: 50pm Abnormal TSH October 29, 2024 3: 50pm Reason for Referral Specialty Diagnoses / Procedures Referred By Contac t Referred To Contact Diagnoses Mild intermittent asthma without complication Sam Null MD [address] [place] [address] Referral ID Status Reason Start Date Expiration Date Visits Re quested Visits Authorized [id number] Closed 1 1 Specialty Diagnoses / Procedures Referred By Contac t Referred To Contact Diagnoses Wellness examination Procedures CONSULT TO WOMEN'S HEALTH OFFICE/OUTPATIENT [facility] 60-74 MINUTES Verito Broderick APRN.CNP [address] [place] [address] Referral ID Status Reason Start Date Expiration Date Visits Requested Visits Authorized [id number] Authorized PCP Requested Referral Auto-Generate d Referral 11/17/2022 11/17/2023 1 1 Specialty Diagnoses / Procedures Referred By Contac t Referred To Contact Gynecology Diagnoses Screening for cervical cancer Procedures CONSULT TO GYNECOLOGY OFFICE/OUTPATIENT [facility] 60 MINUTES Sam Null MD [address] [place] [address] Referral ID Status Reason Start Date Expiration Date Visits Requested Visits Authorized [id number] Authorized PCP Requested Referral Auto-Generate d Referral 04/16/2024 04/16/2025 1 1 Additional Source Comments INFORMATION SOURCE (unrecogn ized section and content) DATE CREATED AUTHOR 09/05/2017 [facility] ([place]) DATE CREATED AUTHOR AUTHOR'S ORGANIZ ATION 11/30/2024 [facility] DATE CREATED AUTHOR AUTHOR'S ORGANIZ ATION 12/03/2024 [facility] DATE CREATED AUTHOR AUTHOR'S ORGANIZ ATION 01/04/2025 [facility] Source Comments (unrecognize d section and content) In the event this informatio n is protected by the Federal Confidentiality of Alcohol and Drug Abuse Patient Records regulations: The Federal rules restrict any use of the information to criminally investigate or prosecute any alcohol or drug abuse patient.[facility]In the event this information is protected by the Federal Confidentiality of Alcohol and Drug Abuse Patient Records regulations: The Federal rules restrict any use of the information to criminally investigate or prosecute any alcohol or drug abuse patient.[facility] HospitalIn the event this information is protected by the Federal Confidentiality of Alcohol and Drug Abuse Patient Records regulations: The Federal rules restrict any use of the information to criminally investigate or prosecute any alcohol or drug abuse patient.[facility] HospitalIn the event this information is protected by the Federal Confidentiality of Alcohol and Drug Abuse Patient Records regulations: The Federal rules restrict any use of the information to criminally investigate or prosecute any alcohol or drug abuse patient.[facility] HospitalIn the event this information is protected by the Federal Confidentiality of Alcohol and Drug Abuse Patient Records regulations: The Federal rules restrict any use of the information to criminally investigate or prosecute any alcohol or drug abuse patient.[facility] HospitalIn the event this information is protected by the Federal Confidentiality of Alcohol and Drug Abuse Patient Records regulations: The Federal rules restrict any use of the information to criminally investigate or prosecute any alcohol or drug abuse patient.[facility] HospitalIn the event this information is protected by the Federal Confidentiality of Alcohol and Drug Abuse Patient Records regulations: The Federal rules restrict any use of the information to criminally investigate or prosecute any alcohol or drug abuse patient.[facility] HospitalIn the event this information is protected by the Federal Confidentiality of Alcohol and Drug Abuse Patient Records regulations: The Federal rules restrict any use of the information to criminally investigate or prosecute any alcohol or drug abuse patient.[facility] HospitalIn the event this information is protected by the Federal Confidentiality of Alcohol and Drug Abuse Patient Records regulations: The Federal rules restrict any use of the information to criminally investigate or prosecute any alcohol or drug abuse patient.[facility] HospitalIn the event this information is protected by the Federal Confidentiality of Alcohol and Drug Abuse Patient Records regulations: The Federal rules restrict any use of the information to criminally investigate or prosecute any alcohol or drug abuse patient.[facility] HospitalIn the event this information is protected by the Federal Confidentiality of Alcohol and Drug Abuse Patient Records regulations: The Federal rules restrict any use of the information to criminally investigate or prosecute any alcohol or drug abuse patient.[facility] HospitalIn the event this information is protected by the Federal Confidentiality of Alcohol and Drug Abuse Patient Records regulations: The Federal rules restrict any use of the information to criminally investigate or prosecute any alcohol or drug abuse patient.[facility] HospitalIn the event this information is protected by the Federal Confidentiality of Alcohol and Drug Abuse Patient Records regulations: The Federal rules restrict any use of the information to criminally investigate or prosecute any alcohol or drug abuse patient.[facility] HospitalIn the event this information is protected by the Federal Confidentiality of Alcohol and Drug Abuse Patient Records regulations: The Federal rules restrict any use of the information to criminally investigate or prosecute any alcohol or drug abuse patient.[facility] HospitalIn the event this information is protected by the Federal Confidentiality of Alcohol and Drug Abuse Patient Records regulations: The Federal rules restrict any use of the information to criminally investigate or prosecute any alcohol or drug abuse patient.[facility] HospitalIn the event this information is protected by the Federal Confidentiality of Alcohol and Drug Abuse Patient Records regulations: The Federal rules restrict any use of the information to criminally investigate or prosecute any alcohol or drug abuse patient.[facility] HospitalIn the event this information is protected by the Federal Confidentiality of Alcohol and Drug Abuse Patient Records regulations: The Federal rules restrict any use of the information to criminally investigate or prosecute any alcohol or drug abuse patient.[facility] HospitalIn the event this information is protected by the Federal Confidentiality of Alcohol and Drug Abuse Patient Records regulations: The Federal rules restrict any use of the information to criminally investigate or prosecute any alcohol or drug abuse patient.[facility] HospitalIn the event this information is protected by the Federal Confidentiality of Alcohol and Drug Abuse Patient Records regulations: The Federal rules restrict any use of the information to criminally investigate or prosecute any alcohol or drug abuse patient.[facility] HospitalIn the event this information is protected by the Federal Confidentiality of Alcohol and Drug Abuse Patient Records regulations: The Federal rules restrict any use of the information to criminally investigate or prosecute any alcohol or drug abuse patient.[facility] HospitalIn the event this information is protected by the Federal Confidentiality of Alcohol and Drug Abuse Patient Records regulations: The Federal rules restrict any use of the information to criminally investigate or prosecute any alcohol or drug abuse patient.[facility] HospitalIn the event this information is protected by the Federal Confidentiality of Alcohol and Drug Abuse Patient Records regulations: The Federal rules restrict any use of the information to criminally investigate or prosecute any alcohol or drug abuse patient.[facility] HospitalIn the event this information is protected by the Federal Confidentiality of Alcohol and Drug Abuse Patient Records regulations: The Federal rules restrict any use of the information to criminally investigate or prosecute any alcohol or drug abuse patient.[facility] HospitalIn the event this information is protected by the Federal Confidentiality of Alcohol and Drug Abuse Patient Records regulations: The Federal rules restrict any use of the information to criminally investigate or prosecute any alcohol or drug abuse patient.[facility] HospitalIn the event this information is protected by the Federal Confidentiality of Alcohol and Drug Abuse Patient Records regulations: The Federal rules restrict any use of the information to criminally investigate or prosecute any alcohol or drug abuse patient.[facility] HospitalIn the event this information is protected by the Federal Confidentiality of Alcohol and Drug Abuse Patient Records regulations: The Federal rules restrict any use of the information to criminally investigate or prosecute any alcohol or drug abuse patient.[facility] HospitalIn the event this information is protected by the Federal Confidentiality of Alcohol and Drug Abuse Patient Records regulations: The Federal rules restrict any use of the information to criminally investigate or prosecute any alcohol or drug abuse patient.[facility] HospitalIn the event this information is protected by the Federal Confidentiality of Alcohol and Drug Abuse Patient Records regulations: The Federal rules restrict any use of the information to criminally investigate or prosecute any alcohol or drug abuse patient.[facility] HospitalIn the event this information is protected by the Federal Confidentiality of Alcohol and Drug Abuse Patient Records regulations: The Federal rules restrict any use of the information to criminally investigate or prosecute any alcohol or drug abuse patient.[facility] HospitalIn the event this information is protected by the Federal Confidentiality of Alcohol and Drug Abuse Patient Records regulations: The Federal rules restrict any use of the information to criminally investigate or prosecute any alcohol or drug abuse patient.[facility] HospitalIn the event this information is protected by the Federal Confidentiality of Alcohol and Drug Abuse Patient Records regulations: The Federal rules restrict any use of the information to criminally investigate or prosecute any alcohol or drug abuse patient.[facility] HospitalIn the event this information is protected by the Federal Confidentiality of Alcohol and Drug Abuse Patient Records regulations: The Federal rules restrict any use of the information to criminally investigate or prosecute any alcohol or drug abuse patient.[facility] HospitalIn the event this information is protected by the Federal Confidentiality of Alcohol and Drug Abuse Patient Records regulations: The Federal rules restrict any use of the information to criminally investigate or prosecute any alcohol or drug abuse patient.[facility] HospitalIn the event this information is protected by the Federal Confidentiality of Alcohol and Drug Abuse Patient Records regulations: The Federal rules restrict any use of the information to criminally investigate or prosecute any alcohol or drug abuse patient.[facility] HospitalIn the event this information is protected by the Federal Confidentiality of Alcohol and Drug Abuse Patient Records regulations: The Federal rules restrict any use of the information to criminally investigate or prosecute any alcohol or drug abuse patient.[facility] HospitalIn the event this information is protected by the Federal Confidentiality of Alcohol and Drug Abuse Patient Records regulations: The Federal rules restrict any use of the information to criminally investigate or prosecute any alcohol or drug abuse patient.[facility] HospitalIn the event this information is protected by the Federal Confidentiality of Alcohol and Drug Abuse Patient Records regulations: The Federal rules restrict any use of the information to criminally investigate or prosecute any alcohol or drug abuse patient.[facility] HospitalIn the event this information is protected by the Federal Confidentiality of Alcohol and Drug Abuse Patient Records regulations: The Federal rules restrict any use of the information to criminally investigate or prosecute any alcohol or drug abuse patient.[facility] HospitalIn the event this information is protected by the Federal Confidentiality of Alcohol and Drug Abuse Patient Records regulations: The Federal rules restrict any use of the information to criminally investigate or prosecute any alcohol or drug abuse patient.[facility] HospitalIn the event this information is protected by the Federal Confidentiality of Alcohol and Drug Abuse Patient Records regulations: The Federal rules restrict any use of the information to criminally investigate or prosecute any alcohol or drug abuse patient.[facility] HospitalIn the event this information is protected by the Federal Confidentiality of Alcohol and Drug Abuse Patient Records regulations: The Federal rules restrict any use of the information to criminally investigate or prosecute any alcohol or drug abuse patient.[facility] HospitalIn the event this information is protected by the Federal Confidentiality of Alcohol and Drug Abuse Patient Records regulations: The Federal rules restrict any use of the information to criminally investigate or prosecute any alcohol or drug abuse patient.[facility] HospitalIn the event this information is protected by the Federal Confidentiality of Alcohol and Drug Abuse Patient Records regulations: The Federal rules restrict any use of the information to criminally investigate or prosecute any alcohol or drug abuse patient.[facility] HospitalIn the event this information is protected by the Federal Confidentiality of Alcohol and Drug Abuse Patient Records regulations: The Federal rules restrict any use of the information to criminally investigate or prosecute any alcohol or drug abuse patient.[facility] HospitalIn the event this information is protected by the Federal Confidentiality of Alcohol and Drug Abuse Patient Records regulations: The Federal rules restrict any use of the information to criminally investigate or prosecute any alcohol or drug abuse patient.[facility] HospitalIn the event this information is protected by the Federal Confidentiality of Alcohol and Drug Abuse Patient Records regulations: The Federal rules restrict any use of the information to criminally investigate or prosecute any alcohol or drug abuse patient.[facility] HospitalIn the event this information is protected by the Federal Confidentiality of Alcohol and Drug Abuse Patient Records regulations: The Federal rules restrict any use of the information to criminally investigate or prosecute any alcohol or drug abuse patient.[facility] HospitalIn the event this information is protected by the Federal Confidentiality of Alcohol and Drug Abuse Patient Records regulations: The Federal rules restrict any use of the information to criminally investigate or prosecute any alcohol or drug abuse patient.[facility] HospitalIn the event this information is protected by the Federal Confidentiality of Alcohol and Drug Abuse Patient Records regulations: The Federal rules restrict any use of the information to criminally investigate or prosecute any alcohol or drug abuse patient.[facility] HospitalIn the event this information is protected by the Federal Confidentiality of Alcohol and Drug Abuse Patient Records regulations: The Federal rules restrict any use of the information to criminally investigate or prosecute any alcohol or drug abuse patient.[facility] HospitalIn the event this information is protected by the Federal Confidentiality of Alcohol and Drug Abuse Patient Records regulations: The Federal rules restrict any use of the information to criminally investigate or prosecute any alcohol or drug abuse patient.[facility] HospitalIn the event this information is protected by the Federal Confidentiality of Alcohol and Drug Abuse Patient Records regulations: The Federal rules restrict any use of the information to criminally investigate or prosecute any alcohol or drug abuse patient.[facility] HospitalIn the event this information is protected by the Federal Confidentiality of Alcohol and Drug Abuse Patient Records regulations: The Federal rules restrict any use of the information to criminally investigate or prosecute any alcohol or drug abuse patient.[facility] HospitalIn the event this information is protected by the Federal Confidentiality of Alcohol and Drug Abuse Patient Records regulations: The Federal rules restrict any use of the information to criminally investigate or prosecute any alcohol or drug abuse patient.[facility] HospitalIn the event this information is protected by the Federal Confidentiality of Alcohol and Drug Abuse Patient Records regulations: The Federal rules restrict any use of the information to criminally investigate or prosecute any alcohol or drug abuse patient.[facility] HospitalIn the event this information is protected by the Federal Confidentiality of Alcohol and Drug Abuse Patient Records regulations: The Federal rules restrict any use of the information to criminally investigate or prosecute any alcohol or drug abuse patient.[facility] HospitalIn the event this information is protected by the Federal Confidentiality of Alcohol and Drug Abuse Patient Records regulations: The Federal rules restrict any use of the information to criminally investigate or prosecute any alcohol or drug abuse patient.[facility] HospitalIn the event this information is protected by the Federal Confidentiality of Alcohol and Drug Abuse Patient Records regulations: The Federal rules restrict any use of the information to criminally investigate or prosecute any alcohol or drug abuse patient.[facility] HospitalIn the event this information is protected by the Federal Confidentiality of Alcohol and Drug Abuse Patient Records regulations: The Federal rules restrict any use of the information to criminally investigate or prosecute any alcohol or drug abuse patient.[facility] HospitalIn the event this information is protected by the Federal Confidentiality of Alcohol and Drug Abuse Patient Records regulations: The Federal rules restrict any use of the information to criminally investigate or prosecute any alcohol or drug abuse patient.[facility] HospitalIn the event this information is protected by the Federal Confidentiality of Alcohol and Drug Abuse Patient Records regulations: The Federal rules restrict any use of the information to criminally investigate or prosecute any alcohol or drug abuse patient.[facility] HospitalIn the event this information is protected by the Federal Confidentiality of Alcohol and Drug Abuse Patient Records regulations: The Federal rules restrict any use of the information to criminally investigate or prosecute any alcohol or drug abuse patient.[facility] HospitalIn the event this information is protected by the Federal Confidentiality of Alcohol and Drug Abuse Patient Records regulations: The Federal rules restrict any use of the information to criminally investigate or prosecute any alcohol or drug abuse patient.[facility] HospitalIn the event this information is protected by the Federal Confidentiality of Alcohol and Drug Abuse Patient Records regulations: The Federal rules restrict any use of the information to criminally investigate or prosecute any alcohol or drug abuse patient.[facility] HospitalIn the event this information is protected by the Federal Confidentiality of Alcohol and Drug Abuse Patient Records regulations: The Federal rules restrict any use of the information to criminally investigate or prosecute any alcohol or drug abuse patient.[facility] HospitalIn the event this information is protected by the Federal Confidentiality of Alcohol and Drug Abuse Patient Records regulations: The Federal rules restrict any use of the information to criminally investigate or prosecute any alcohol or drug abuse patient.[facility] HospitalIn the event this information is protected by the Federal Confidentiality of Alcohol and Drug Abuse Patient Records regulations: The Federal rules restrict any use of the information to criminally investigate or prosecute any alcohol or drug abuse patient.[facility] HospitalIn the event this information is protected by the Federal Confidentiality of Alcohol and Drug Abuse Patient Records regulations: The Federal rules restrict any use of the information to criminally investigate or prosecute any alcohol or drug abuse patient.[facility] [facility] the event this information is protected by the Federal Confidentiality of Alcohol and Drug Abuse Patient Records regulations: The Federal rules restrict any use of the information to criminally investigate or prosecute any alcohol or drug abuse patient.[facility] HospitalIn the event this information is protected by the Federal Confidentiality of Alcohol and Drug Abuse Patient Records regulations: The Federal rules restrict any use of the information to criminally investigate or prosecute any alcohol or drug abuse patient.[facility] HospitalIn the event this information is protected by the Federal Confidentiality of Alcohol and Drug Abuse Patient Records regulations: The Federal rules restrict any use of the information to criminally investigate or prosecute any alcohol or drug abuse patient.[facility] HospitalIn the event this information is protected by the Federal Confidentiality of Alcohol and Drug Abuse Patient Records regulations: The Federal rules restrict any use of the information to criminally investigate or prosecute any alcohol or drug abuse patient.[facility] HospitalIn the event this information is protected by the Federal Confidentiality of Alcohol and Drug Abuse Patient Records regulations: The Federal rules restrict any use of the information to criminally investigate or prosecute any alcohol or drug abuse patient.[facility] HospitalIn the event this information is protected by the Federal Confidentiality of Alcohol and Drug Abuse Patient Records regulations: The Federal rules restrict any use of the information to criminally investigate or prosecute any alcohol or drug abuse patient.[facility] HospitalIn the event this information is protected by the Federal Confidentiality of Alcohol and Drug Abuse Patient Records regulations: The Federal rules restrict any use of the information to criminally investigate or prosecute any alcohol or drug abuse patient.[facility] HospitalIn the event this information is protected by the Federal Confidentiality of Alcohol and Drug Abuse Patient Records regulations: The Federal rules restrict any use of the information to criminally investigate or prosecute any alcohol or drug abuse patient.[facility] HospitalIn the event this information is protected by the Federal Confidentiality of Alcohol and Drug Abuse Patient Records regulations: The Federal rules restrict any use of the information to criminally investigate or prosecute any alcohol or drug abuse patient.[facility] HospitalIn the event this information is protected by the Federal Confidentiality of Alcohol and Drug Abuse Patient Records regulations: The Federal rules restrict any use of the information to criminally investigate or prosecute any alcohol or drug abuse patient.[facility] HospitalIn the event this information is protected by the Federal Confidentiality of Alcohol and Drug Abuse Patient Records regulations: The Federal rules restrict any use of the information to criminally investigate or prosecute any alcohol or drug abuse patient.[facility] HospitalIn the event this information is protected by the Federal Confidentiality of Alcohol and Drug Abuse Patient Records regulations: The Federal rules restrict any use of the information to criminally investigate or prosecute any alcohol or drug abuse patient.[facility] HospitalIn the event this information is protected by the Federal Confidentiality of Alcohol and Drug Abuse Patient Records regulations: The Federal rules restrict any use of the information to criminally investigate or prosecute any alcohol or drug abuse patient.[facility] HospitalIn the event this information is protected by the Federal Confidentiality of Alcohol and Drug Abuse Patient Records regulations: The Federal rules restrict any use of the information to criminally investigate or prosecute any alcohol or drug abuse patient.[facility] HospitalIn the event this information is protected by the Federal Confidentiality of Alcohol and Drug Abuse Patient Records regulations: The Federal rules restrict any use of the information to criminally investigate or prosecute any alcohol or drug abuse patient.[facility] HospitalIn the event this information is protected by the Federal Confidentiality of Alcohol and Drug Abuse Patient Records regulations: The Federal rules restrict any use of the information to criminally investigate or prosecute any alcohol or drug abuse patient.[facility] HospitalIn the event this information is protected by the Federal Confidentiality of Alcohol and Drug Abuse Patient Records regulations: The Federal rules restrict any use of the information to criminally investigate or prosecute any alcohol or drug abuse patient.[facility] HospitalIn the event this information is protected by the Federal Confidentiality of Alcohol and Drug Abuse Patient Records regulations: The Federal rules restrict any use of the information to criminally investigate or prosecute any alcohol or drug abuse patient.[facility] HospitalIn the event this information is protected by the Federal Confidentiality of Alcohol and Drug Abuse Patient Records regulations: The Federal rules restrict any use of the information to criminally investigate or prosecute any alcohol or drug abuse patient.[facility] HospitalIn the event this information is protected by the Federal Confidentiality of Alcohol and Drug Abuse Patient Records regulations: The Federal rules restrict any use of the information to criminally investigate or prosecute any alcohol or drug abuse patient.[facility] HospitalIn the event this information is protected by the Federal Confidentiality of Alcohol and Drug Abuse Patient Records regulations: The Federal rules restrict any use of the information to criminally investigate or prosecute any alcohol or drug abuse patient.[facility] HospitalIn the event this information is protected by the Federal Confidentiality of Alcohol and Drug Abuse Patient Records regulations: The Federal rules restrict any use of the information to criminally investigate or prosecute any alcohol or drug abuse patient.[facility] HospitalIn the event this information is protected by the Federal Confidentiality of Alcohol and Drug Abuse Patient Records regulations: The Federal rules restrict any use of the information to criminally investigate or prosecute any alcohol or drug abuse patient.[facility] HospitalIn the event this information is protected by the Federal Confidentiality of Alcohol and Drug Abuse Patient Records regulations: The Federal rules restrict any use of the information to criminally investigate or prosecute any alcohol or drug abuse patient.[facility] HospitalIn the event this information is protected by the Federal Confidentiality of Alcohol and Drug Abuse Patient Records regulations: The Federal rules restrict any use of the information to criminally investigate or prosecute any alcohol or drug abuse patient.[facility] HospitalIn the event this information is protected by the Federal Confidentiality of Alcohol and Drug Abuse Patient Records regulations: The Federal rules restrict any use of the information to criminally investigate or prosecute any alcohol or drug abuse patient.[facility] HospitalIn the event this information is protected by the Federal Confidentiality of Alcohol and Drug Abuse Patient Records regulations: The Federal rules restrict any use of the information to criminally investigate or prosecute any alcohol or drug abuse patient.[facility] HospitalIn the event this information is protected by the Federal Confidentiality of Alcohol and Drug Abuse Patient Records regulations: The Federal rules restrict any use of the information to criminally investigate or prosecute any alcohol or drug abuse patient.[facility] HospitalIn the event this information is protected by the Federal Confidentiality of Alcohol and Drug Abuse Patient Records regulations: The Federal rules restrict any use of the information to criminally investigate or prosecute any alcohol or drug abuse patient.[facility] HospitalIn the event this information is protected by the Federal Confidentiality of Alcohol and Drug Abuse Patient Records regulations: The Federal rules restrict any use of the information to criminally investigate or prosecute any alcohol or drug abuse patient.[facility] HospitalIn the event this information is protected by the Federal Confidentiality of Alcohol and Drug Abuse Patient Records regulations: The Federal rules restrict any use of the information to criminally investigate or prosecute any alcohol or drug abuse patient.[facility] HospitalIn the event this information is protected by the Federal Confidentiality of Alcohol and Drug Abuse Patient Records regulations: The Federal rules restrict any use of the information to criminally investigate or prosecute any alcohol or drug abuse patient.[facility] HospitalIn the event this information is protected by the Federal Confidentiality of Alcohol and Drug Abuse Patient Records regulations: The Federal rules restrict any use of the information to criminally investigate or prosecute any alcohol or drug abuse patient.[facility] HospitalIn the event this information is protected by the Federal Confidentiality of Alcohol and Drug Abuse Patient Records regulations: The Federal rules restrict any use of the information to criminally investigate or prosecute any alcohol or drug abuse patient.[facility] HospitalIn the event this information is protected by the Federal Confidentiality of Alcohol and Drug Abuse Patient Records regulations: The Federal rules restrict any use of the information to criminally investigate or prosecute any alcohol or drug abuse patient.[facility] HospitalIn the event this information is protected by the Federal Confidentiality of Alcohol and Drug Abuse Patient Records regulations: The Federal rules restrict any use of the information to criminally investigate or prosecute any alcohol or drug abuse patient.[facility] HospitalIn the event this information is protected by the Federal Confidentiality of Alcohol and Drug Abuse Patient Records regulations: The Federal rules restrict any use of the information to criminally investigate or prosecute any alcohol or drug abuse patient.[facility] Care Teams (unrecognized sec tion and content) Pharmacist Manager Relationship Specialty Start Date End Date Sam Null MD [address] [place] [address] PCP - General Internal Medicine 07/09/19 Pharmacist Manager Relationship Specialty Start Date End Date Sam Null MD [address] [place] [address] PCP - General Internal Medicine 07/09/19 Pharmacist Manager Relationship Specialty Start Date End Date Sam Null MD [address] [place] [address] PCP - General Internal Medicine 07/09/19 Pharmacist Manager Relationship Specialty Start Date End Date Sam Null MD [address] [place] [address] PCP - General Internal Medicine 07/09/19 Pharmacist Manager Relationship Specialty Start Date End Date Sam Null MD [address] [place] [address] PCP - General Internal Medicine 07/09/19 Pharmacist Manager Relationship Specialty Start Date End Date Sam Null MD [address] [place] [address] PCP - General Internal Medicine 07/09/19 Pharmacist Manager Relationship Specialty Start Date End Date Sam Null MD [address] [place] [address] PCP - General Internal Medicine 07/09/19 Pharmacist Manager Relationship Specialty Start Date End Date Sam Null MD [address] [place] [address] PCP - General Internal Medicine 07/09/19 Pharmacist Manager Relationship Specialty Start Date End Date Sam Null MD [address] [place] [address] PCP - General Internal Medicine 07/09/19 Pharmacist Manager Relationship Specialty Start Date End Date Sam Null MD [address] [place] [address] PCP - General Internal Medicine 07/09/19 Pharmacist Manager Relationship Specialty Start Date End Date Sam Null MD [address] [place] [address] PCP - General Internal Medicine 07/09/19 Pharmacist Manager Relationship Specialty Start Date End Date Sam Null MD [address] [place] [address] PCP - General Internal Medicine 07/09/19 Pharmacist Manager Relationship Specialty Start Date End Date Sam Null MD [address] [place] [address] PCP - General Internal Medicine 07/09/19 Pharmacist Manager Relationship Specialty Start Date End Date Sam Null MD [address] [place], [place] [id number] PCP - General Internal Medicine 07/09/19 Team Status: Active Member Role Status Dates Dr. Sam Null MD Family Provider Active Dr. Sam Null MD Primary Care Provider Active Team Status: Inactive Member Role Status Dates Dr. Sam Null MD Primary Care Provider, Refer ring Provider Active Porfirio Jeff SHIPFITTER APPRENTICE, SHIPFITTER APPRENTICE-C Attending Provider Active Team Status: Inactive Member Role Status Dates Dr. Sam Null MD Primary Care Provider Active Dr. Kemar Byrnes DO Attending Provider, Referring Provider Active Porfirio Jeff SHIPFITTER APPRENTICE, SHIPFITTER APPRENTICE-C Other Provider Active Team Status: Inactive Member Role Status Dates Dr. Sam Null MD Primary Care Provider Active Lilli Ware SHIPFITTER APPRENTICE, SHIPFITTER APPRENTICE-C Attending Provider, Referring P olga Active Dr. Kemar Byrnes DO Other Provider Active Pharmacist Manager Relationship Specialty Start Date End Date Sam Null MD [address] [place] [address] PCP - General Internal Medicine 07/09/19 Pharmacist Manager Relationship Specialty Start Date End Date Sam Null MD [address] [place] [address] PCP - General Internal Medicine 07/09/19 Pharmacist Manager Relationship Specialty Start Date End Date Sam Null MD [address] [place] [address] PCP - General Internal Medicine 07/09/19 Pharmacist Manager Relationship Specialty Start Date End Date Sam Null MD [address] [place] [address] PCP - General Internal Medicine 07/09/19 Pharmacist Manager Relationship Specialty Start Date End Date Sam Null MD [address] [place] [address] PCP - General Internal Medicine 07/09/19 Pharmacist Manager Relationship Specialty Start Date End Date Sam Null MD [address] [place] [address] PCP - General Internal Medicine 07/09/19 Pharmacist Manager Relationship Specialty Start Date End Date Sam Null MD [address] [place] [address] PCP - General Internal Medicine 07/09/19 Pharmacist Manager Relationship Specialty Start Date End Date Sam Null MD [address] [place] [address] PCP - General Internal Medicine 07/09/19 Team Status: Inactive Member Role Status Dates Dr. Sam Null MD Primary Care Provider, Refer ring Provider Active Dr. Grant Morgan MD Attending Provider Active Team Status: Active Member Role Status Dates Dr. Sam Null MD Primary Care Provider Active Porfirio Jeff SHIPFITTER APPRENTICE, SHIPFITTER APPRENTICE-C Other Provider Active Dr. Chapincito Lilly MD Attending Provider Active Team Status: Inactive Member Role Status Dates Dr. Sam Null MD Primary Care Provider Active Dr. Kemar Byrnes DO Attending Provider, Referring Provider Active Team Status: Inactive Member Role Status Dates Dr. Sam Null MD Primary Care Provider Active Porfirio Jeff SHIPFITTER APPRENTICE, SHIPFITTER APPRENTICE-C Attending Provider Active Team Status: Inactive Member Role Status Dates Dr. Sam Null MD Primary Care Provider, Refer ring Provider Active Dr. Kemar Byrnes DO Attending Provider Active Team Status: Inactive Member Role Status Dates Dr. Sam Null MD Primary Care Provider, Refer ring Provider Active Brittany Anderson SHIPFITTER APPRENTICE, SHIPFITTER APPRENTICE-C Attending Provider Active Team Status: Active Member Role Status Dates Dr. Sam Null MD Primary Care Provider Active Porfirio Jeff SHIPFITTER APPRENTICE, SHIPFITTER APPRENTICE-C Referring Provider, Other Provide r Active Dr. Chapincito Lilly MD Attending Provider Active Team Status: Inactive Member Role Status Dates Dr. Sam Null MD Primary Care Provider Active Dr. Arianne Navarro MD Emergency Provider Active Pharmacist Manager Relationship Specialty Start Date End Date Sam Null MD [address] [place] [address] PCP - General Internal Medicine 07/09/19 Team Status: Inactive Member Role Status Dates Dr. Sam Null MD Primary Care Provider Active Dr. Arianne Navarro MD Attending Provider, Emergency Provider Active Team Status: Inactive Member Role Status Dates Dr. aSm Null MD Primary Care Provider Active Brittany Anderson SHIPFITTER APPRENTICE, SHIPFITTER APPRENTICE-C Attending Provider, Referrin g Provider Active Team Status: Active Member Role Status Dates Dr. Sam Null MD Primary Care Provider Active Dr. Grant Morgan MD Attending Provider, Referring Provi lynne Active MERCHANT CARLOS Other Provider Active Team Status: Inactive Member Role Status Dates Dr. Sam Null MD Primary Care Provider Active Dr. Grant Morgan MD Attending Provider, Referring Provi lynne Active [employer] Other Provider Active Pharmacist Manager Relationship Specialty Start Date End Date Sam Null MD [address] [place] [address] PCP - General Internal Medicine 07/09/19 Pharmacist Manager Relationship Specialty Start Date End Date Sam Null MD [address] [place], [place] [address] PCP - General Internal Medicine 07/09/19 Team Status: Inactive Member Role Status Dates Dr. Sam Null MD Primary Care Provider, Other Provider Active Dr. Grant Morgan MD Attending Provider, Referring Provi lynne Active Pharmacist Manager Relationship Specialty Start Date End Date Sam Null MD [address] [place] [address] PCP - General Internal Medicine 07/09/19 Kemar Byrnes DO [address] [place] [address] Gastroenterology 07/04/23 Pharmacist Manager Relationship Specialty Start Date End Date Sam Null MD [address] [place] [address] PCP - General Internal Medicine 07/09/19 Kemar Byrnes DO [address] [place] [address] Gastroenterology 07/04/23 Pharmacist Manager Relationship Specialty Start Date End Date Sam Null MD [address] [place] [address] PCP - General Internal Medicine 07/09/19 Kemar Byrnes DO [address] [place] [address] Gastroenterology 07/04/23 Pharmacist Manager Relationship Specialty Start Date End Date Sam Null MD [address] [place] [address] PCP - General Internal Medicine 07/09/19 Kemar Byrnes DO [address] [facility] [address] [place] [address] Gastroenterology 07/04/23 Team Status: Active Member Role Status Dates Dr. Sam Null MD Primary Care Provider Active Brittany Anderson SHIPFITTER APPRENTICE, SHIPFITTER APPRENTICE-C Referring Provider, Other Pr ovider Active Dr. Kemar Byrnes , DO Other Provider Active Dr. Alfredo Reyes , Attending Provider Active Team Status: Inactive Member Role Status Dates Dr. Sam Null MD Primary Care Provider Active Brittany Anderson SHIPFITTER APPRENTICE, SHIPFITTER APPRENTICE-C Attending Provider, Referrin g Provider Active Dr. Kemar Byrnes , DO Other Provider Active Team Status: Active Member Role Status Dates Dr. Sam Null MD Primary Care Provider Active Porfirio Jeff SHIPFITTER APPRENTICE, SHIPFITTER APPRENTICE-C Attending Provider, Referring Pro vider Active Pharmacist Manager Relationship Specialty Start Date End Date Sam Null MD [address] [place] [address] PCP - General Internal Medicine 07/09/19 Kemar Byrnes DO [address] [facility] [address] [place] [address] Gastroenterology 07/04/23 Team Status: Inactive Member Role Status Dates Dr. Sam Null MD Primary Care Provider Active Porfirio Jeff SHIPFITTER APPRENTICE, SHIPFITTER APPRENTICE-C Attending Provider, Referring Pro vider Active Pharmacist Manager Relationship Specialty Start Date End Date Sam Null MD [address] [place] [address] PCP - General Internal Medicine 07/09/19 Kemar Byrnes DO [address] [facility] [address] [place] [address] Gastroenterology 07/04/23 Pharmacist Manager Relationship Specialty Start Date End Date Sam Null MD [address] [place] [address] PCP - General Internal Medicine 07/09/19 Kemar Byrnes DO [address] [place] [address], [place] [address] Gastroenterology 07/04/23 Pharmacist Manager Relationship Specialty Start Date End Date Sam Null MD [address] [place] [address] PCP - General Internal Medicine 07/09/19 Kemar Byrnes DO [address] [address] Gastroenterology 07/04/23 Pharmacist Manager Relationship Specialty Start Date End Date Sam Null MD [address] [place] [address] PCP - General Internal Medicine 07/09/19 Kemar Byrnes DO [address] [address] Gastroenterology 07/04/23 Pharmacist Manager Relationship Specialty Start Date End Date Sam Null MD [address] [place] [address] PCP - General Internal Medicine 07/09/19 Kemar Byrnes DO [address] [address] Gastroenterology 07/04/23 Pharmacist Manager Relationship Specialty Start Date End Date Sam Null MD [address] [place] [address] PCP - General Internal Medicine 07/09/19 Kemar Byrnes DO [address] [place] [address], [place] [address] Gastroenterology 07/04/23 Pharmacist Manager Relationship Specialty Start Date End Date Sam Null MD [address] [place] [address] PCP - General Internal Medicine 07/09/19 Kemar Byrnes DO [address] [place] [address] Gastroenterology 07/04/23 Pharmacist Manager Relationship Specialty Start Date End Date Sam Null MD [address] [place] [address] PCP - General Internal Medicine 07/09/19 Kemar Byrnes DO [address] [place] [address], [place] [address] Gastroenterology 07/04/23 Pharmacist Manager Relationship Specialty Start Date End Date Sam Null MD [address] [place] [address] PCP - General Internal Medicine 07/09/19 Kemar Byrnes DO [address] [address] Gastroenterology 07/04/23 Pharmacist Manager Relationship Specialty Start Date End Date Sam Null MD [address] [place] [address] PCP - General Internal Medicine 07/09/19 Kemar Byrnes DO [address] [place] [address] Gastroenterology 07/04/23 Pharmacist Manager Relationship Specialty Start Date End Date Sam Null MD [address] [facility] [address] PCP - General Internal Medicine 07/09/19 Kemar Byrnes DO [address] [place] [address], [place] [address] Gastroenterology 07/04/23 Pharmacist Manager Relationship Specialty Start Date End Date Sam Null MD [address] [facility] [address] PCP - General Internal Medicine 07/09/19 Kemar Byrnes DO [address] [place] [address], [place] [address] Gastroenterology 07/04/23 Pharmacist Manager Relationship Specialty Start Date End Date Sam Null MD [address] [facility] [place] [address] PCP - General Internal Medicine 07/09/19 Kemar Byrnes DO [address] [place] [address] Gastroenterology 07/04/23 Pharmacist Manager Relationship Specialty Start Date End Date Sam Null MD [address] [place] [address] PCP - General Internal Medicine 07/09/19 Kemar Byrnes DO [address] [place], [place] [address] Gastroenterology 07/04/23 Pharmacist Manager Relationship Specialty Start Date End Date Sam Null MD [address] [place] [address] PCP - General Internal Medicine 07/09/19 Kemar Byrnes DO [address] [place] [address] Gastroenterology 07/04/23 Pharmacist Manager Relationship Specialty Start Date End Date Sam Null MD [address] [place] [address] PCP - General Internal Medicine 07/09/19 Pharmacist Manager Relationship Specialty Start Date End Date Sam Null MD [address] [facility] [address] PCP - General Internal Medicine 07/09/19 Kemar Byrnes DO [address] [place] [address], [place] [address] Gastroenterology 07/04/23 Pharmacist Manager Relationship Specialty Start Date End Date Sam Null MD [address] [place] [address] PCP - General Internal Medicine 07/09/19 Kemar Byrnes DO [address] [place] [address] Gastroenterology 07/04/23 Pharmacist Manager Relationship Specialty Start Date End Date Sam Null MD [address] [facility] [place] [address] PCP - General Internal Medicine 07/09/19 Kemar Byrnes DO [address] [place] [address] Gastroenterology 07/04/23 Verito Mclean, RESEARCH INSTRUMENTATION TECHNICIAN.LAST PATTERN GRADER [address] [facility] [place] [address] Township Supervisor Internal Medicine 02/20/24 Pharmacist Manager Relationship Specialty Start Date End Date Sam Null MD [address] [facility] [place] [address] PCP - General Internal Medicine 07/09/19 Kemar Byrnes DO [address] [place] [address] Gastroenterology 07/04/23 Verito Mclean, RESEARCH INSTRUMENTATION TECHNICIAN.LAST PATTERN GRADER [address] [facility] [place] [address] Township Supervisor Internal Medicine 02/20/24 Pharmacist Manager Relationship Specialty Start Date End Date Sam Null MD [address] [facility] [place] [address] PCP - General Internal Medicine 07/09/19 Kemar Byrnes DO [address] [place] [address] Gastroenterology 07/04/23 Verito Mclean, RESEARCH INSTRUMENTATION TECHNICIAN.LAST PATTERN GRADER [address] [facility] [place] [address] Township Supervisor Internal Medicine 02/20/24 Pharmacist Manager Relationship Specialty Start Date End Date Sam Null MD [address] [facility] [place] [address] PCP - General Internal Medicine 07/09/19 Kemar Byrnes DO [address] [place] [address] Gastroenterology 07/04/23 Verito Mclean, RESEARCH INSTRUMENTATION TECHNICIAN.LAST PATTERN GRADER [address] [facility] [place] [place] [address] Township Supervisor Internal Medicine 02/20/24 Pharmacist Manager Relationship Specialty Start Date End Date Sam Null MD [address] [facility] [place] [address] PCP - General Internal Medicine 07/09/19 Kemar Byrnes DO [address] [place] [address] Gastroenterology 07/04/23 Verito Mclean, RESEARCH INSTRUMENTATION TECHNICIAN.LAST PATTERN GRADER [address] [facility] [place] [address] Township Supervisor Internal Medicine 02/20/24 Pharmacist Manager Relationship Specialty Start Date End Date Sam Null MD [address] [facility] [place] [address] PCP - General Internal Medicine 07/09/19 Kemar Byrnes DO [address] [place] [address] Gastroenterology 07/04/23 Verito Mclean, RESEARCH INSTRUMENTATION TECHNICIAN.LAST PATTERN GRADER [address] [place] [address] Township Supervisor Internal Medicine 02/20/24 Pharmacist Manager Relationship Specialty Start Date End Date Sam Null MD [address] [place] [address] PCP - General Internal Medicine 07/09/19 Kemar Byrnes DO [address] [place] [address] Gastroenterology 07/04/23 Verito Mclean, RESEARCH INSTRUMENTATION TECHNICIAN.LAST PATTERN GRADER [address] [place] [address] Township Supervisor Internal Medicine 02/20/24 Pharmacist Manager Relationship Specialty Start Date End Date Sam Null MD [address] [place] [address] PCP - General Internal Medicine 07/09/19 Kemar Byrnes DO [address] [facility] [address] [place] [address] Gastroenterology 07/04/23 Verito Mclean, RESEARCH INSTRUMENTATION TECHNICIAN.LAST PATTERN GRADER [address] [place] [address] Township Supervisor Internal Medicine 02/20/24 Pharmacist Manager Relationship Specialty Start Date End Date Sam Null MD [address] [place] [address] PCP - General Internal Medicine 07/09/19 Kemar Byrnes DO [address] [place] [address], [place] [address] Gastroenterology 07/04/23 Verito Mclean, RESEARCH INSTRUMENTATION TECHNICIAN.LAST PATTERN GRADER [address] [facility] [place] [place] [address] Township Supervisor Internal Medicine 02/20/24 Pharmacist Manager Relationship Specialty Start Date End Date Sam Null MD [address] [facility] [place] [address] PCP - General Internal Medicine 07/09/19 Kemar Byrnes DO [address] [place] [address] Gastroenterology 07/04/23 Verito Mclean, RESEARCH INSTRUMENTATION TECHNICIAN.LAST PATTERN GRADER [address] [place] [address] Township Supervisor Internal Medicine 02/20/24 Pharmacist Manager Relationship Specialty Start Date End Date Sam Null MD [address] [facility] [place] [address] PCP - General Internal Medicine 07/09/19 Kemar Byrnes DO [address] [place] [address] Gastroenterology 07/04/23 Verito Mclean, RESEARCH INSTRUMENTATION TECHNICIAN.LAST PATTERN GRADER [address] [facility] [place] [address] Township Supervisor Internal Medicine 02/20/24 Pharmacist Manager Relationship Specialty Start Date End Date Sam Null MD [address] [facility] [place] [address] PCP - General Internal Medicine 07/09/19 Kemar Byrnes DO [address] [id number] Gastroenterology 07/04/23 Verito Mclean, RESEARCH INSTRUMENTATION TECHNICIAN.LAST PATTERN GRADER [address] [facility] [place] [address] Township Supervisor Internal Medicine 02/20/24 Ethan [place] MD [address] [place] [address] Referring Ophthalmology 05/30/24 Pharmacist Manager Relationship Specialty Start Date End Date Sam Null MD [address] [facility] [place] [address] PCP - General Internal Medicine 07/09/19 Kemar Byrnes DO [address] [address] Gastroenterology 07/04/23 Verito Mclean, RESEARCH INSTRUMENTATION TECHNICIAN.LAST PATTERN GRADER [address] [facility] [place] [address] Township Supervisor Internal Medicine 02/20/24 Ethan [place] MD [address] [place], [place] [address] Referring Ophthalmology 05/30/24 Team Status: Active Member Role Status Dates Dr. Sam Null MD Primary Care Provider Active Team Status: Inactive Member Role Status Dates Dr. Sam Null MD Primary Care Provider Active Start: March 02, 2024 End: March 02, 2024 Dr. Sam Null MD Referring Provider Active Start: March 02, 2024 End: March 02, 2024 Dr. Kemar Byrnes DO Attending Provider Active Start: March 02, 2024 End: March 02, 2024 Team Status: Inactive Member Role Status Dates Dr. Sam Null MD Primary Care Provider Active Start: May 03, 2024 End: May 03, 2024 Dr. Sam Null MD Referring Provider Active Start: May 03, 2024 End: May 03, 2024 Brittany Anderson SHIPFITTER APPRENTICE, SHIPFITTER APPRENTICE-C Attending Provider Active Start: May 03, 2024 End: May 03, 2024 Team Status: Inactive Member Role Status Dates Dr. Sam Null MD Primary Care Provider Active Start: June 19, 2024 End: June 19, 2024 Brittany Anderson SHIPFITTER APPRENTICE, SHIPFITTER APPRENTICE-C Attending Provider Active Start: June 19, 2024 End: June 19, 2024 Brittany Anderson SHIPFITTER APPRENTICE, SHIPFITTER APPRENTICE-C Referring Provider Active Start: June 19, 2024 End: June 19, 2024 Porfirio Jeff SHIPFITTER APPRENTICE, SHIPFITTER APPRENTICE-C Other Provider Active Start : June 19, 2024 End: June 19, 2024 Team Status: Active Member Role Status Dates Dr. Sam Null MD Primary Care Provider Active Start: June 19, 2024 Reginald Erickson RN Attending Provider Active St art: June 19, 2024 Team Status: Active Member Role Status Dates Dr. Sam Null MD Primary Care Provider Active Start: June 25, 2024 Brittany Anderson SHIPFITTER APPRENTICE, SHIPFITTER APPRENTICE-C Referring Provider Active Start: June 25, 2024 Brittany Anderson SHIPFITTER APPRENTICE, SHIPFITTER APPRENTICE-C Other Provider Active Start: June 25, 2024 Porfirio Jeff SHIPFITTER APPRENTICE, SHIPFITTER APPRENTICE-C Other Provider Active Start : June 25, 2024 Dr. Alfredo Reyes DO Attending Provider Active S tart: June 25, 2024 Pharmacist Manager Relationship Specialty Start Date End Date Sam Null MD [address] [place] [address] PCP - General Internal Medicine 07/09/19 Kemar Byrnes DO [address] [place] [address] Gastroenterology 07/04/23 Verito Mclean, RESEARCH INSTRUMENTATION TECHNICIAN.LAST PATTERN GRADER [address] [facility] [place] [address] Township Supervisor Internal Medicine 02/20/24 Ethan [place] MD [address] [place] [address] Referring Ophthalmology 05/30/24 Pharmacist Manager Relationship Specialty Start Date End Date Sam Null MD [address] [facility] [place] [address] PCP - General Internal Medicine 07/09/19 Kemar Byrnes DO [address] [place] [address] Gastroenterology 07/04/23 Verito Mclean, RESEARCH INSTRUMENTATION TECHNICIAN.LAST PATTERN GRADER [address] [facility] [place] [address] Township Supervisor Internal Medicine 02/20/24 Ethan [place] MD [address] [facility] [place], [place] [address] Referring Ophthalmology 05/30/24 Pharmacist Manager Relationship Specialty Start Date End Date Sam Null MD [address] [facility] [place] [address] PCP - General Internal Medicine 07/09/19 Kemar Byrnes DO [address] [place], [place] [address] Gastroenterology 07/04/23 eVrito Mclean, RESEARCH INSTRUMENTATION TECHNICIAN.LAST PATTERN GRADER [address] [facility] [place] [address] Township Supervisor Internal Medicine 02/20/24 Ethan [place] MD [address] [facility] [place] [address] Referring Ophthalmology 05/30/24 Pharmacist Manager Relationship Specialty Start Date End Date Sam Null MD [address] [facility] [place] [address] PCP - General Internal Medicine 07/09/19 Kemar Byrnes DO [address] [place] [address] Gastroenterology 07/04/23 Verito Mclean, RESEARCH INSTRUMENTATION TECHNICIAN.LAST PATTERN GRADER [address] [facility] [place] [address] Township Supervisor Internal Medicine 02/20/24 Ethan [place] MD [address] [place] [address] Referring Ophthalmology 05/30/24 Pharmacist Manager Relationship Specialty Start Date End Date Sam Null MD [address] [facility] [place] [address] PCP - General Internal Medicine 07/09/19 Kemar Byrnes DO [address] [facility] [address] [place] [address] Gastroenterology 07/04/23 Verito Mclean, RESEARCH INSTRUMENTATION TECHNICIAN.LAST PATTERN GRADER [address] [place] [address] Township Supervisor Internal Medicine 02/20/24 Ethan [place] MD [address] [facility] [place] [address] Referring Ophthalmology 05/30/24 Pharmacist Manager Relationship Specialty Start Date End Date Sam Null MD [address] [facility] [place] [address] PCP - General Internal Medicine 07/09/19 Kemar Byrnes DO [address] [address] Gastroenterology 07/04/23 Verito Mclean, RESEARCH INSTRUMENTATION TECHNICIAN.LAST PATTERN GRADER [address] [facility] [place] [address] Township Supervisor Internal Medicine 02/20/24 Ethan [place] MD [address] [facility] [place] [address] Referring Ophthalmology 05/30/24 Pharmacist Manager Relationship Specialty Start Date End Date Sam Null MD [address] [facility] [place] [place] [address] PCP - General Internal Medicine 07/09/19 Kemar Byrnes DO [address] [place], [place] [id number] Gastroenterology 07/04/23 Verito Mclean, RESEARCH INSTRUMENTATION TECHNICIAN.LAST PATTERN GRADER [address] [place] [address] Township Supervisor Internal Medicine 02/20/24 Ethan [place] MD [address] [place] [address] Referring Ophthalmology 05/30/24 Team Status: Inactive Member Role Status Dates Dr. Sam Null MD Primary Care Provider Active Start: July 10, 2024 End: July 10, 2024 Brittany Anderson SHIPFITTER APPRENTICE, SHIPFITTER APPRENTICE-C Attending Provider Active Start: July 10, 2024 End: July 10, 2024 Brittany Anderson SHIPFITTER APPRENTICE, SHIPFITTER APPRENTICE-C Referring Provider Active Start: July 10, 2024 End: July 10, 2024 Team Status: Inactive Member Role Status Dates Dr. Sam Null MD Primary Care Provider Active Start: August 03, 2024 End: August 03, 2024 Porfirio Jeff SHIPFITTER APPRENTICE, SHIPFITTER APPRENTICE-C Attending Provider Active S tart: August 03, 2024 End: August 03, 2024 Porfirio Jeff SHIPFITTER APPRENTICE, SHIPFITTER APPRENTICE-C Referring Provider Active S tart: August 03, 2024 End: August 03, 2024 Team Status: Active Member Role Status Dates Dr. Sam Null MD Primary Care Provider Active Start: August 03, 2024 Dr. Bowen Quach MD Attending Provider Activ e Start: August 03, 2024 Team Status: Inactive Member Role Status Dates Dr. Sam Null MD Primary Care Provider Active Start: August 13, 2024 End: August 13, 2024 Dr. Sam Null MD Referring Provider Active Start: August 13, 2024 End: August 13, 2024 Dr. Grant Morgan MD Attending Provider Active Sta rt: August 13, 2024 End: August 13, 2024 Pharmacist Manager Relationship Specialty Start Date End Date Sam Null MD [address] [place] [address] PCP - General Internal Medicine 07/09/19 Kemar Byrnes DO [address] [facility] [place] [place] [address] Gastroenterology 07/04/23 Verito Mclean, RESEARCH INSTRUMENTATION TECHNICIAN.LAST PATTERN GRADER [address] [place] [address] Township Supervisor Internal Medicine 02/20/24 Ethan [place] MD [address] [place], [place] [address] Referring Ophthalmology 05/30/24 Pharmacist Manager Relationship Specialty Start Date End Date Sam Null MD [address] [place] [address] PCP - General Internal Medicine 07/09/19 Kemar Byrnes DO [address] [facility] [place] [address] Gastroenterology 07/04/23 Verito Mclean, RESEARCH INSTRUMENTATION TECHNICIAN.LAST PATTERN GRADER [address] [place] [address] Township Supervisor Internal Medicine 02/20/24 Ethan [place] MD [address] [place] [address] Referring Ophthalmology 05/30/24 Pharmacist Manager Relationship Specialty Start Date End Date Sam Null MD [address] [place] [address] PCP - General Internal Medicine 07/09/19 Kemar Byrnes DO [address], [place] [address] Gastroenterology 07/04/23 Verito Mclean, RESEARCH INSTRUMENTATION TECHNICIAN.LAST PATTERN GRADER [address] [place] [address] Township Supervisor Internal Medicine 02/20/24 Ethan [place] MD [address] [place] [address] Referring Ophthalmology 05/30/24 Pharmacist Manager Relationship Specialty Start Date End Date Sam Null MD [address] [place] [address] PCP - General Internal Medicine 07/09/19 Kemar Byrnes DO [address] [place] [address] Gastroenterology 07/04/23 Verito Mclean, RESEARCH INSTRUMENTATION TECHNICIAN.LAST PATTERN GRADER [address] [place] [address] Township Supervisor Internal Medicine 02/20/24 Ethan [place] MD [address] [place] [address] Referring Ophthalmology 05/30/24 Team Status: Inactive Member Role Status Dates Dr. Sam Null MD Primary Care Provider Active Start: August 27, 2024 End: August 27, 2024 Dr. Sam Null MD Referring Provider Active Start: August 27, 2024 End: August 27, 2024 Dr. Kemar Byrnes DO Attending Provider Active Start: August 27, 2024 End: August 27, 2024 Pharmacist Manager Relationship Specialty Start Date End Date Sam Null MD [address] [place] [address] PCP - General Internal Medicine 07/09/19 Kemar Byrnes DO [address] [facility] [address] [place], [place] [address] Gastroenterology 07/04/23 Verito Mclean, RESEARCH INSTRUMENTATION TECHNICIAN.LAST PATTERN GRADER [address] [facility] [place] [address] Township Supervisor Internal Medicine 02/20/24 Ethan [place] MD [address] [place] [address] Referring Ophthalmology 05/30/24 Pharmacist Manager Relationship Specialty Start Date End Date Sam Null MD [address] [place] [address] PCP - General Internal Medicine 07/09/19 Kemar Byrnes DO [address] [place] [address] Gastroenterology 07/04/23 Verito Mclean, RESEARCH INSTRUMENTATION TECHNICIAN.LAST PATTERN GRADER [address] [facility] [place] [address] Township Supervisor Internal Medicine 02/20/24 Ethan [place] MD [address] [facility] [place], [place] [address] Referring Ophthalmology 05/30/24 Pharmacist Manager Relationship Specialty Start Date End Date Sam Null MD [address] [facility] [place] [address] PCP - General Internal Medicine 07/09/19 Kemar Byrnes DO [address] [facility] [address] [place], [place] [address] Gastroenterology 07/04/23 Verito Mclean, RESEARCH INSTRUMENTATION TECHNICIAN.LAST PATTERN GRADER [address] [place] [address] Township Supervisor Internal Medicine 02/20/24 Ethan [place] MD [address] [place], [place] [address] Referring Ophthalmology 05/30/24 Pharmacist Manager Relationship Specialty Start Date End Date Sam Null MD [address] [place] [address] PCP - General Internal Medicine 07/09/19 Kemar Byrnes DO [address] [address] Gastroenterology 07/04/23 Verito Mclean, RESEARCH INSTRUMENTATION TECHNICIAN.LAST PATTERN GRADER [address] [place] [address] Township Supervisor Internal Medicine 02/20/24 Ethan [place] MD [address] [place], [place] [address] Referring Ophthalmology 05/30/24 Team Status: Active Member Role/Relationship Status Dates Dr. Sam Null MD Primary Care Provider Active Team Status: Inactive Member Role/Relationship Status Dates Dr. Sam Null MD Primary Care Provider Active Start: June 19, 2024 End: June 19, 2024 Brittany Anderson SHIPFITTER APPRENTICE, SHIPFITTER APPRENTICE-C Attending Provider Active Start: June 19, 2024 End: June 19, 2024 Brittany Anderson SHIPFITTER APPRENTICE, SHIPFITTER APPRENTICE-C Referring Provider Active Start: June 19, 2024 End: June 19, 2024 Porfirio Jeff SHIPFITTER APPRENTICE, SHIPFITTER APPRENTICE-C Other Provider Active Start : June 19, 2024 End: June 19, 2024 Team Status: Active Member Role/Relationship Status Dates Dr. Sam Null MD Primary Care Provider Active Start: June 19, 2024 Reginald Erickson RN Attending Provider Active St art: June 19, 2024 Team Status: Active Member Role/Relationship Status Dates Dr. Sam Null MD Primary Care Provider Active Start: June 25, 2024 Brittany Anderson SHIPFITTER APPRENTICE, SHIPFITTER APPRENTICE-C Referring Provider Active Start: June 25, 2024 Brittany Anderson SHIPFITTER APPRENTICE, SHIPFITTER APPRENTICE-C Other Provider Active Start: June 25, 2024 Porfirio Jeff SHIPFITTER APPRENTICE, SHIPFITTER APPRENTICE-C Other Provider Active Start : June 25, 2024 Dr. Alfredo Reyes DO Attending Provider Active S tart: June 25, 2024 Team Status: Inactive Member Role/Relationship Status Dates Dr. Sam Null MD Primary Care Provider Active Start: July 10, 2024 End: July 10, 2024 Brittany Anderson SHIPFITTER APPRENTICE, SHIPFITTER APPRENTICE-C Attending Provider Active Start: July 10, 2024 End: July 10, 2024 Brittany Anderson SHIPFITTER APPRENTICE, SHIPFITTER APPRENTICE-C Referring Provider Active Start: July 10, 2024 End: July 10, 2024 Team Status: Inactive Member Role/Relationship Status Dates Dr. Sam Null MD Primary Care Provider Active Start: August 03, 2024 End: August 03, 2024 Porfirio Jeff SHIPFITTER APPRENTICE, SHIPFITTER APPRENTICE-C Attending Provider Active S tart: August 03, 2024 End: August 03, 2024 Porfirio Jeff SHIPFITTER APPRENTICE, SHIPFITTER APPRENTICE-C Referring Provider Active S tart: August 03, 2024 End: August 03, 2024 Team Status: Active Member Role/Relationship Status Dates Dr. Sam Null MD Primary Care Provider Active Start: August 03, 2024 Dr. Bowen Quach MD Attending Provider Activ e Start: August 03, 2024 Team Status: Inactive Member Role/Relationship Status Dates Dr. Sam Null MD Primary Care Provider Active Start: August 13, 2024 End: August 13, 2024 Dr. Sam Null MD Referring Provider Active Start: August 13, 2024 End: August 13, 2024 Dr. Grant Morgan MD Attending Provider Active Sta rt: August 13, 2024 End: August 13, 2024 Team Status: Inactive Member Role/Relationship Status Dates Dr. Sam Null MD Primary Care Provider Active Start: August 27, 2024 End: August 27, 2024 Dr. Sam Null MD Referring Provider Active Start: August 27, 2024 End: August 27, 2024 Dr. Kemar Byrnes DO Attending Provider Active Start: August 27, 2024 End: August 27, 2024 Team Status: Inactive Member Role/Relationship Status Dates Dr. Sam Null MD Primary Care Provider Active Start: September 21, 2024 End: September 21, 2024 Brittany Anderson SHIPFITTER APPRENTICE, SHIPFITTER APPRENTICE-C Attending Provider Active Start: September 21, 2024 End: September 21, 2024 Brittany Anderson SHIPFITTER APPRENTICE, SHIPFITTER APPRENTICE-C Referring Provider Active Start: September 21, 2024 End: September 21, 2024 Pharmacist Manager Relationship Specialty Start Date End Date Sam Null MD [address] [place], [place] [id number] PCP - General Internal Medicine 07/09/19 Kemar Byrnes DO [address] [id number] Gastroenterology 07/04/23 Verito Mclean, RESEARCH INSTRUMENTATION TECHNICIAN.LAST PATTERN GRADER [address] [place], [place] [id number] Township Supervisor Internal Medicine 02/20/24 Ethan [place] MD [address] [place] [address] Referring Ophthalmology 05/30/24 Pharmacist Manager Relationship Specialty Start Date End Date Sam Null MD [address] [place] [address] PCP - General Internal Medicine 07/09/19 Kemar Byrnes DO [address] [facility] [place], [place] [address] Gastroenterology 07/04/23 Verito Mclean, RESEARCH INSTRUMENTATION TECHNICIAN.LAST PATTERN GRADER [address] [facility], [place] [address] Township Supervisor Internal Medicine 02/20/24 Ethan [place] MD [address] [place], [place] [address] Referring Ophthalmology 05/30/24 Team Status: Inactive Member Role/Relationship Status Dates Dr. Sam Null MD Primary Care Provider Active Start: July 10, 2024 End: July 10, 2024 Brittany Anderson SHIPFITTER APPRENTICE, SHIPFITTER APPRENTICE-C Attending Provider Active Start: July 10, 2024 End: July 10, 2024 Brittany Anderson SHIPFITTER APPRENTICE, SHIPFITTER APPRENTICE-C Referring Provider Active Start: July 10, 2024 End: July 10, 2024 Team Status: Inactive Member Role/Relationship Status Dates Dr. Sam Null MD Primary Care Provider Active Start: August 03, 2024 End: August 03, 2024 Porfirio Jeff SHIPFITTER APPRENTICE, SHIPFITTER APPRENTICE-C Attending Provider Active S tart: August 03, 2024 End: August 03, 2024 Porfirio Jeff SHIPFITTER APPRENTICE, SHIPFITTER APPRENTICE-C Referring Provider Active S tart: August 03, 2024 End: August 03, 2024 Team Status: Active Member Role/Relationship Status Dates Dr. Sam Null MD Primary Care Provider Active Start: August 03, 2024 Dr. Bowen Quach MD Attending Provider Activ e Start: August 03, 2024 Team Status: Inactive Member Role/Relationship Status Dates Dr. Sam Null MD Primary Care Provider Active Start: August 13, 2024 End: August 13, 2024 Dr. Sam Null MD Referring Provider Active Start: August 13, 2024 End: August 13, 2024 Dr. Grant Morgan MD Attending Provider Active Sta rt: August 13, 2024 End: August 13, 2024 Team Status: Inactive Member Role/Relationship Status Dates Dr. Sam Null MD Primary Care Provider Active Start: August 27, 2024 End: August 27, 2024 Dr. Sam Null MD Referring Provider Active Start: August 27, 2024 End: August 27, 2024 Dr. Kemar Byrnes DO Attending Provider Active Start: August 27, 2024 End: August 27, 2024 Team Status: Inactive Member Role/Relationship Status Dates Dr. Sam Null MD Primary Care Provider Active Start: September 21, 2024 End: September 21, 2024 Brittany Anderson SHIPFITTER APPRENTICE, SHIPFITTER APPRENTICE-C Attending Provider Active Start: September 21, 2024 End: September 21, 2024 Brittany Anderson SHIPFITTER APPRENTICE, SHIPFITTER APPRENTICE-C Referring Provider Active Start: September 21, 2024 End: September 21, 2024 Team Status: Inactive Member Role/Relationship Status Dates Dr. Sam Null MD Primary Care Provider Active Start: October 29, 2024 End: October 29, 2024 Dr. Sam Null MD Referring Provider Active Start: October 29, 2024 End: October 29, 2024 Porfirio Jeff SHIPFITTER APPRENTICE, SHIPFITTER APPRENTICE-C Attending Provider Active S tart: October 29, 2024 End: October 29, 2024 Team Status: Inactive Member Role/Relationship Status Dates Dr. Sam Null MD Primary Care Provider Active Start: August 03, 2024 End: August 03, 2024 Porfirio Jeff SHIPFITTER APPRENTICE, SHIPFITTER APPRENTICE-C Attending Provider Active S tart: August 03, 2024 End: August 03, 2024 Porfirio Jeff SHIPFITTER APPRENTICE, SHIPFITTER APPRENTICE-C Referring Provider Active S tart: August 03, 2024 End: August 03, 2024 Team Status: Active Member Role/Relationship Status Dates Dr. Sam Null MD Primary Care Provider Active Start: August 03, 2024 Dr. Bowen Quach MD Attending Provider Activ e Start: August 03, 2024 Team Status: Inactive Member Role/Relationship Status Dates Dr. Sam Null MD Primary Care Provider Active Start: August 13, 2024 End: August 13, 2024 Dr. Sam Null MD Referring Provider Active Start: August 13, 2024 End: August 13, 2024 Dr. Grant Morgan MD Attending Provider Active Sta rt: August 13, 2024 End: August 13, 2024 Team Status: Inactive Member Role/Relationship Status Dates Dr. Sam Null MD Primary Care Provider Active Start: August 27, 2024 End: August 27, 2024 Dr. Sam Null MD Referring Provider Active Start: August 27, 2024 End: August 27, 2024 Dr. Kemar Byrnes DO Attending Provider Active Start: August 27, 2024 End: August 27, 2024 Team Status: Inactive Member Role/Relationship Status Dates Dr. Sam Null MD Primary Care Provider Active Start: September 21, 2024 End: September 21, 2024 Brittany Anderson SHIPFITTER APPRENTICE, SHIPFITTER APPRENTICE-C Attending Provider Active Start: September 21, 2024 End: September 21, 2024 Brittany Anderson SHIPFITTER APPRENTICE, SHIPFITTER APPRENTICE-C Referring Provider Active Start: September 21, 2024 End: September 21, 2024 Team Status: Inactive Member Role/Relationship Status Dates Dr. Sam Null MD Primary Care Provider Active Start: October 29, 2024 End: October 29, 2024 Dr. Sam Null MD Referring Provider Active Start: October 29, 2024 End: October 29, 2024 Porfirio Jeff SHIPFITTER APPRENTICE, SHIPFITTER APPRENTICE-C Attending Provider Active S tart: October 29, 2024 End: October 29, 2024 Team Status: Inactive Member Role/Relationship Status Dates Dr. Sam Null MD Primary Care Provider Active Start: November 02, 2024 End: November 02, 2024 Porfirio Jeff SHIPFITTER APPRENTICE, SHIPFITTER APPRENTICE-C Attending Provider Active S tart: November 02, 2024 End: November 02, 2024 Dr. Grant Morgan MD Referring Provider Active Sta rt: November 02, 2024 End: November 02, 2024 Goals (unrecognized section and content) Goals may be documented in a n alternate sectionGoals may be documented in an alternate sectionGoals may be documented in an alternate sectionGoals may be documented in an alternate sectionGoals may be documented in an alternate sectionGoals may be documented in an alternate sectionGoals may be documented in an alternate sectionGoals may be documented in an alternate sectionGoals may be documented in an alternate sectionGoals may be documented in an alternate sectionGoals may be documented in an alternate sectionGoals may be documented in an alternate sectionGoals may be documented in an alternate sectionGoals may be documented in an alternate sectionGoals may be documented in an alternate sectionGoals may be documented in an alternate sectionGoals may be documented in an alternate sectionGoals may be documented in an alternate sectionGoals may be documented in an alternate sectionGoals may be documented in an alternate sectionGoals may be documented in an alternate sectionGoals may be documented in an alternate section Reason for Visit (unrecogniz ed section and content) Reason Comments New Patient Knee Pain Specialty Diagnoses / Procedures Referred By Contac t Referred To Contact Orthopedics Diagnoses Effusion of right knee Procedures CONSULT TO ORTHOPAEDICS OFFICE/OUTPATIENT NEW HIGH MDM 60-74 MINUTES Sam Null MD [address] [place] [address] Referral ID Status Reason Start Date Expiration Date V isits Requested Visits Authorized [id number] Closed PCP Requested Referral 10/08/2021 10/08/2022 1 [...] MDM 60-74 MINUTES Verito Broderick APRN.CNP [address] [place] [address] Referral ID Status Reason Start Date Expiration Date V isits Requested Visits Authorized [id number] Closed PCP Requested Referral 12/15/2022 12/15/2023 1 1 Reason Comments Patient Question Reason Comments Established Patient Pain Reason Comments Follow Up [facility] 01/27/2023 CKD Reason Comments Bariatric Seminar Reason Comments New Patient Reason Comments Appointment EGD/Kirk/Mano Reason Comments Recheck Follow up, review la ning Specialty Diagnoses / Procedures Referred By Matty t Referred To Contact Diagnoses Esophageal dysphagia Procedures ESOPHAGEAL MOTILITY STUDY W/INTERP&RPT ESOPHAGEAL MANOMETRY [facility] [address] [place] [address] Referral ID Status Reason Start Date Expiration Date Visits Re quested Visits Authorized [id number] 1 1 Reason Comments Established Patient Reason Comments Patient Update Bariatric Benefits I nvestigation Reason Comments Established Patient Reason Comments Results Reason Comments New Patient Reason Comments Results Abnormal Kidney Tests Reason Comments F/U 3 Month Reason Comments Obesity Reason Comments Medical Clearance Reason Comments Appointment NO SHOW Reason Comments New Diabetic Foot Care nail defformity nail deformity Reason Comments Bariatric Psychology Evaluation Reason Comments MDT Reason Onset Date Comments F/U 6 months Immunizations 04/16/2024 Flu vaccination Reason Comments Follow Up Stage 3b CKD Reason Comments Bariatric Psychology Follow Up Reason Comments Appointment Reason Comments New Patient Weight Problem Reason Comments Discussion Reason Comments Neuropsych Testing Specialty Diagnoses / Procedures Referred By Matty craven Referred To Contact PSYCHIATRY Diagnoses Anxiety Trauma in childhood Short-term memory issues Procedures NEUROPSYCHOLOGICAL TESTING CONSULT NEUROBEHAVIORAL STATUS XM PHYS/QHP 1ST HOUR NEUROPSYCHOLOGICAL TST EVAL PHYS/QHP 1ST HOUR NEUROPSYCHOLOGICAL TST EVAL PHYS/QHP EA ADDL HR PSYCL/NRPSYCL TST TECH 2+ TST 1ST 30 MIN PSYCL/NRPSYCL TST TECH 2+ TST EA ADDL 30 MIN Lisbet Steel, PSYD [address] [place] [address] Phone: tel: fax: Pamela Lopez, PhD [address] [facility] [address] [place] [address] Phone: tel: fax: Referral ID Status Reason Start Date Expiration Date Visits Requested Visits Authorized [id number] Authorized PCP Requested Referral 04/23/2024 12/19/2024 5 5 Reason Comments Results Specialty Diagnoses / Procedures Referred By Matty t Referred To Contact PSYCHIATRY Diagnoses Anxiety Trauma in childhood Short-term memory issues Procedures NEUROPSYCHOLOGICAL TESTING CONSULT NEUROBEHAVIORAL STATUS XM PHYS/QHP 1ST HOUR NEUROPSYCHOLOGICAL TST EVAL PHYS/QHP 1ST HOUR NEUROPSYCHOLOGICAL TST EVAL PHYS/QHP EA ADDL HR PSYCL/NRPSYCL TST TECH 2+ TST 1ST 30 MIN PSYCL/NRPSYCL TST TECH 2+ TST EA ADDL 30 MIN Lainey Steelah, PSYD [address] [place] [address] Phone: tel: fax: Pamela Lopez, PhD [address] [facility], [facility] [address] [place] [address] Phone: tel: fax: Referral ID Status Reason Start Date Expiration Date Visits Requested Visits Authorized [id number] Authorized PCP Requested Referral 04/23/2024 12/19/2024 5 5 Scheduled Active and Recently Administ ered Medications (unrecognized section and content) Medication Order 07/19/2023 07/20/2023 07/21/2023 lidocaine urojet 2 % 11 mL topical gel (GLYDO) (COMPLETED) 11 mL, MUCOUS MEMBRANE, ONCE, 1 dose, On Maryse 07/21/23 at 1330, Dosing as directed for intraprocedural use only, Intraprocedure 1314 (Given - Provid er: Юлия Dallas RN) NaCl 0.9% irrigation solution (COMPLETED) 60 mL, IRRIGATION, ONCE, 1 dose, On Maryse 07/21/23 at 1330, Dosing as directed for intraprocedural use only, Intraprocedure 1314 (Given - Provid er: Юлия Dallas RN) FOR RECORDS PERTAINING TO PATIENTS WHO [...] BE BASED ON THE PRIMARY CLINICAL RECORDS. [employer] provides no warranty or guarantee of the accuracy or completeness of information in this document.
--- NOTE | 2025-01-07 12:17 | STRESSREP ---
Stress Test Report Date: 01/07/2025 Procedure: Pharmacologic stress nuclear imaging study Indications: Chest pain Consent: Per the patient Procedure: The patient underwent pharmacologic (Regadenoson 0.4mg ) evaluation with a peak heart rate of 94 beats per minute (58%predicted maximal heart rate) and a peak blood pressure of 102/70 mmHg. The baseline ECG demonstrated sinus rhythm. The peak pharmacologic ECG did not show any diagnostic ischemic changes. There were no cardiac dysrhythmias pretest, during pharmacologic infusion, or recovery. There was no complaint of chest discomfort during pharmacologic infusion or recovery. The patient was injected with 14.8 millicuries of technetium 99m Cardiolite and subsequently rest SPECT Cardiolite nuclear imaging was obtained in the horizontal long, vertical long, and short axis views. The patient underwent pharmacologic (Regadenoson) evaluation. The patient was injected with 45.0 millicuries of technetium 99m Cardiolite and subsequently stress SPECT Cardiolite nuclear imaging was obtained in the horizontal long, vertical long, and short axis views. A gated Cardiolite study at peak stress was obtained. The examination was stopped secondary to completion of protocol. Rest and stress SPECT Cardiolite nuclear imaging status post realignment, normalization, and attenuation correction demonstrate no fixed or reversible perfusion defects. There is end systolic thickening and brightening. The gated Cardiolite study demonstrates myocardial thickening and inward wall motion. The reported LVEF is 84%. Impression: 1. Pharmacologic (Regadenoson) evaluation 2. Peak pharmacologic ECG with no ischemic changes. 3. There were no cardiac dysrhythmias pretest, during pharmacologic infusion, or recovery. 5. Rest and stress SPECT Cardiolite nuclear imaging demonstrate relative uniform tracer uptake and myocardial perfusion appearing within normal limits. 6. The gated Cardiolite study reports an LVEF of 84%. This note was generated with [employer] software. It may contain incorrect words, spelling, and punctuation that were not noted in checking the note before signing.
== END | disposition home or self-care (01) ==
LOC: CVS 06:15
PROVIDERS: PCP Internal Medicine; Referring Provider Nurse Practitioner Family; Visit Provider Nurse Practitioner Family
DX: R07.9 Chest pain, unspecified (principal); E66.01 Morbid (severe) obesity due to excess calories; R06.00 Dyspnea, unspecified; N18.9 Chronic kidney disease, unspecified; R00.2 Palpitations; R79.89 Other specified abnormal findings of blood chemistry; Z98.890 Other specified postprocedural states
CPT/HCPCS: 78452; 93017; A4216; A9500; J2785